=== PATIENT | female | born 1945 | race African-American/Black ===

== ENCOUNTER 2017-11-15 07:53 | Day surgery (SDC) | payer OTHER ==
[2017-11-14 10:05] VITALS: BMI 31.9
[2017-11-15 08:17] VITALS: TEMP 97.7
[2017-11-15 08:19] LABS: BASO % 0.8 % (0-2.0); EOS % 0.8 % (0-4.5); HEMOGLOBIN 12.5 GM/dL (10.7-15.3); LYMPH % 21.5 % (8-40); MCH 31.4 pg (25.7-33.7); MCHC 32.8 g/dl (32.0-36.0); MEAN CELL VOLUME 95.8 fl (80-96); MEAN PLT VOLUME 7.7 fl (7.5-11.1); MONO % 7.9 % (3.8-10.2); PLATELET COUNT 256 K/MM3 (134-434); RBC 3.97 M/mm3 (3.60-5.2); RDW 16.5 % (11.6-15.6); WHITE BLOOD COUNT 9.8 K/mm3 (4.0-10.0)
[2017-11-15 08:34] LABS: INR 1.11 (0.83-1.09); PROTHROMBIN TIME (PATIENT) 13.1 SEC (9.7-13.0)
[2017-11-15] MEDS ORDERED: ACETAMINOPHEN 325 MG TABLET (FP) ONE ×2 (11:07→11:11)
[2017-11-15] MEDS ORDERED: ACETAMINOPHEN 325 MG TABLET (FP) PO ONE (11:15)
[2017-11-15 12:02] VITALS: BP 140/80; PULSE 80
--- NOTE | 2017-11-24 14:25 | PATH ---
Surgical Pathology Report Patient Name: TYLER ZAVALETA [facility]. Rec. #: [id number] /Age/Gender: 1945 (Age: 72) / F Account: [id number] Location: RADIOLOGY INTER Taken: 11/15/2017 Received: 11/15/2017 Reported: 11/22/2017 Physicians: Shiva Gomez M.D. Specimen(s) Received RIGHT LYMPH NODE Clinical History Lung cancer 2014 with right pre-clavicular mass, rule out metastases Final Diagnosis Supraclavicular, Lymph node, right, ultrasound guided core biopsy: Poorly differentiated carcinoma. Comment: Histologic sections show sheets and aggregates of malignant epithelial cells with areas of necrosis. Immunohistochemical stains performed and interpreted at [facility] show the tumor is positive for AE1/3, and CK7; while negative for p63, TTF-1, and CK20. Additional immunohistochemical stains performed at [place], [place] ([id number]) and interpreted at [facility] show the tumor shows focal positivity for CK5/6; while negative for p40, JAYME-3, Mammaglobin, GCDFP-15, SATB2, CDX2, SATB2. Immunophenotype is non-specific, but compatible with known history of lung carcinoma. Prior material from the lung is noted ([id number]). Findings discussed with Dr. Ferreira. PDL-1 pending and will be reported separately. Electronically Signed Vanda Eng M.D. Addendum Reported: 11/22/2017 Addendum Diagnosis PD-L1 (DAKO 22C3) immunohistochemical stain performed and interpreted at [employer] [place], [place] ([id number]) RESULTS: LOW PD-L1 EXPRESSION, TPS 1%. TUMOR PROPORTION SCORE (TPS) RESULT: 1% Staining Location: Membranous Staining Distribution: 1-49 % Staining Intensity: 1+ Tumor infiltrating Immune cells (TILs) Result: Present. Staining Distribution: 0-9% Staining Intensity: 0 See [facility]ge report for details ([id number]). Vanda Eng M.D. Gross Description Received in formalin labeled "right lymph node," are 3 bradley, cylindrical portions of soft tissue ranging from 1.7-2.0 cm in length and averaging 0.1 cm in diameter. The specimens are submitted in toto in one cassette. 11/15/201711/15/2017
== END 2017-11-15 11:35 | disposition home or self-care (01) ==
LOC: JRADIR 07:53
PROVIDERS: ATTEND Internal Medicine Hematology & Oncology
PROC: 07B13ZX Excision of Right Neck Lymphatic, Percutaneous Approach, Diagnostic (ICD-10-PCS; principal; 2017-11-15)
DX: R59.0 Localized enlarged lymph nodes (principal); C34.90 Malignant neoplasm of unspecified part of unspecified bronchus or lung; Z87.891 Personal history of nicotine dependence
CPT/HCPCS: 36415; 38505; 76942-TC; 85025; 85610; 87899; 88305-TC; 88341-TC; 88342-TC

== ENCOUNTER 2017-11-20 15:21 | Emergency (ER) | payer OTHER ==
--- NOTE | 2017-11-20 16:00 | PDOC ---
History of Present Illness - General Chief Complaint: Abscess Boil Stated Complaint: SENT BY PCP Time Seen by Provider: 11/20/17 15:55 - History of Present Illness Initial Comments: 72yo F with PMH of lung cancer and HTN presenting with abscess below her chin. Patient was sent by her oncologist, Dr. Paige, who noticed the abscess. The lesion started small about one month ago, likely from an inflamed hair follicle. It started growing in size and caused her pain over the past two to three weeks, becoming as large as a lemon and profusely draining white-yellow pus. She has no acute complaints, other than some anxiety today which she attributes to laying in a MRI machine. Patient denies fever or chills, chest pain, or shortness of breath. Past History - Past Medical History Allergies/Adverse Reactions: Allergies Allergy/AdvReac Type Severity Reaction Status Date / Time No Known Drug Allergies Allergy Verified 11/20/17 15:55 Home Medications: Ambulatory Orders Alprazolam [Xanax] 0.05 mg PO HS 03/30/15 Zolpidem Tartrate [Ambien] 10 mg PO HS 03/30/15 Amlodipine Besylate [Norvasc -] 5 mg PO DAILY 11/14/17 Atovaquone [Mepron -] 1,500 mg PO DAILY@0800 11/14/17 Folic Acid 1 mg PO DAILY 11/14/17 Methotrexate [Mexate -] 15 mg PO Q7D 11/14/17 Pantoprazole Sodium [Protonix] 40 mg PO PRN PRN 11/14/17 Prednisone 5 mg PO DAILY 11/14/17 Sulfasalazine 2,000 mg PO BID 11/14/17 Sulfamethoxazole/Trimethoprim [Bactrim Ds Tablet] 2 each PO BID 10 Days #40 tablet 11/20/17 Anemia: No Asthma: No Cancer: Yes (LUNG) Cardiac Disorders: No CVA: No COPD: No CHF: No Dementia: No Diabetes: No (BORDERLINE) GI Disorders: Yes Disorders: No HTN: Yes Hypercholesterolemia: No Liver Disease: No Psychiatric Problems: Yes (depression) Seizures: No Thyroid Disease: No Lung CA: Yes - Surgical History Abdominal Surgery: No Appendectomy: No Cardiac Surgery: No Cholecystectomy: No Lung Surgery: Yes (SX - RIGHT) Neurologic Surgery: No Orthopedic Surgery: No - Suicide/Smoking/Psychosocial Hx Smoking Status: Yes Smoking History: Former smoker Have you smoked in the past 12 months: Yes Number of Cigarettes Smoked Daily: 10 If you are a former smoker, when did you quit?: 12/16/14 'Breaking Loose' booklet given: 08/24/15 Hx Alcohol Use: Yes (SOCIAL) Drug/Substance Use Hx: No Substance Use Type: Alcohol Hx Substance Use Treatment: No Review of Systems - Review of Systems Comments:: Constitutional: no fever, no chills HEENT: no throat pain, no dysphagia Cardiovascular: no chest pain, no palpitations Respiratory: no cough, no shortness of breath Gastrointestinal: no abdominal pain, no nausea, no vomiting Genitourinary: no dysuria, no frequency Musculoskeletal: no myalgia, no arthralgia Skin: +abscess, no itching Neurologic: no headache, no dizziness *Physical Exam - Physical Exam Comments: General: Awake, alert, and fully oriented, in no acute distress Head: no signs of trauma Eyes: EOMI, sclera anicteric ENT: Moist mucus membranes Neck: Normal ROM, supple Lungs: Lungs clear, Normal breath sounds Cardio: Regular rhythm, S1 and S2 present Abdomen: Soft, nontender Extremities: Normal range of motion, Distal pulses present SKIN: 3cm circular abscess below chin with 1 opening and draining white-yellow pus; erythematous, indurated, and tender to palpation Neurologic: Cranial nerves II through XII grossly intact. Normal speech Procedures - Incision and Drainage I&D Site: Bilateral: Other (below chin) Betadine cleansed: Yes Anesthesia: 2% Lidocaine Volume(ml): 3 Blade Size: 11 Plain Packing: No (Patient deferred packing due to pain and anxiety) Dressing: Yes (sterile) Medical Decision Making - Medical Decision Making 72yo F with PMH of lung cancer and HTN presenting with abscess below her chin. -Bactrim given -Wound culture sent -I&D performed: See procedure note, Copious amounts of white-yellow purulent discharge expressed *DC/Admit/Observation/Transfer Diagnosis at time of Disposition: Abscess - Discharge Dispostion Disposition: HOME Condition at time of disposition: Improved - Prescriptions Prescriptions: Sulfamethoxazole/Trimethoprim [Bactrim Ds Tablet] 2 each PO BID 10 Days #40 tablet - Referrals Referrals: Grecia Ferreira MD [Primary Care Provider] - - Patient Instructions Printed Discharge Instructions: DI for Incision and Drainage of a Skin Abscess Additional Instructions: You came into the ED for an abscess. You received antibiotics and a procedure called incision and drainage. Allow the abscess to continue to drain. Use warm compresses. Antibiotics sent to your pharmacy, Bactrim: Take two tablets twice a day for ten days. Contact your doctor if your recovery is not progressing as expected or you develop complications such as: redness or warmth at the incision site, swelling , bleeding, fever and chills, or any new or concerning symptoms. If you think you have an emergency, call for emergency medical services or present to the emergency department right away. - Post Discharge Activity
[2017-11-20 16:01] VITALS: BP 171/86; PULSE 87; TEMP 98.2; BMI 33.4
[2017-11-20] MEDS ORDERED: SULFAMETHOXAZOLE/TRIMETHOPRIM 800MG/160MG D.S. TABLET PO ONE (16:28)
--- NOTE | 2017-11-20 16:28 | PDOC ---
Attending Attestation - Resident Resident Name: Nithya Miles - ED Attending Attestation I have performed the following: I have examined & evaluated the patient, The case was reviewed & discussed with the resident, I agree w/resident's findings & plan, Exceptions are as noted - Medical Decision Making 11/20/17 16:28 I, Dr. Beatriz Goldstein, DO, attest that this document has been prepared under my direction and personally reviewed by me in its entirety. I further attest, that it accurately reflects all work, treatment, procedures and medical decision -making performed by me. 11/20/17 16:29 a/p: 72yo female with hx of lung ca sent by Dr. Paige for eval of submandibular abscess -already open and draining purulent foul smelling drainage -pt states originally size of a lemon - now smaller in size -pain to the site -no fevers -will I&D -will send culture -will place on bactrim -call placed to Dr. Paige to update her <Beatriz Goldstein - Last Filed: 11/20/17 16:29> - HPI HPI: 11/20/17 17:36 The patient is a 72 year old female, with a significant past medical history of lung cancer and frequent abscesses, who presents to the emergency department with, an abscess just below the chin. As per patient, she was in the hospital for an MRI when she had an anxiety attack and her oncologist, Dr. Paige, evaluated her. She notes Dr. Paige advised her to report to the ED for evaluation of her abscess. She notes her abscess was originally much larger but , has decreased in size substantially due to hot compresses. She also endorses foul smelling, white/yellow purulent discharge. She denies recent fevers, chills, headache or dizziness. She denies recent nausea, vomit, diarrhea or constipation. She denies recent dysuria, frequency, urgency or hematuria. She denies recent chest pain or shortness of breath. Allergies: NKDA Primary Care Physician: Dr. Donovan - Physicial Exam PE: 11/20/17 17:36 Constitutional: Awake, alert, oriented. No acute distress. Head: Normocephalic. Atraumatic Eyes: PERRL. EOMI. Conjunctivae are not pale. ENT: Mucous membranes are moist and intact. Posterior pharynx without exudates or erythema. Uvula midline. Neck: Abscess to the submandibular with white/yellow foul smelling, purulent discharge. Supple. Full ROM. No lymphadenopathy. Cardiovascular: Regular rate. Regular rhythm. S1, S2 regular. Distal pulses are 2+ and symmetric. Pulmonary/Chest: No evidence of respiratory distress. Clear to auscultation bilaterally No wheezing, rales or rhonchi. Abdominal: Soft and non-distended. There is no tenderness. No rebound, guarding or rigidity. No organomegaly. No palpable masses. Good bowel sounds. Back: No CVA tenderness. Musculoskeletal: No edema. No cyanosis. No clubbing. Full range of motion in all extremities. No calf tenderness. Radial/pedal pulses are intact and 2+ bilaterally Skin: Skin is warm and dry. No petechiae. No purpura. Neurological: Alert and oriented to person, place, and time. Cranial nerves II -XII are grossly intact. Normal speech. Strength is grossly symmetric. No sensory deficits. Psychiatric: Good eye contact. Normal interaction, affect and behavior. - Medical Decision Making 11/20/17 4:[address] Dr. Paige paged overhead, awaiting call back. 5:00pm Call placed to Dr. Paige's answering service, notified to page her overhead because she is in the hospital. 5:01pm Dr. Paige paged overhead, awaiting call back. Call placed to Dr. Paige's cell phone, line did not ring. 5:05pm Dr. Paige paged overhead, awaiting call back. Call placed to Dr. Paige's cell phone, line did not ring. 5:15pm Call placed to oncology floor for Dr. Paige, made aware she was not in the hospital. <Aydee Aceves - Last Filed: 11/20/17 17:37> Attestations - Attestations 11/20/17 17:37 Documentation prepared by Aydee Aceves, acting as spanish medical interpreter for Beatriz Goldstein DO. <Aydee Aceves - Last Filed: 11/20/17 17:37>
[2017-11-20] MEDS ORDERED: SULFAMETHOXAZOLE/TRIMETHOPRIM 800MG/160MG D.S. TABLET ONE (17:08)
== END 2017-11-20 17:49 | disposition home or self-care (01) ==
LOC: JER 15:21
PROC: 0J910ZZ Drainage of Face Subcutaneous Tissue and Fascia, Open Approach (ICD-10-PCS; principal; 2017-11-20)
DX: L02.01 Cutaneous abscess of face (principal); I10 Essential (primary) hypertension; F32.9 Major depressive disorder, single episode, unspecified; C34.00 Malignant neoplasm of unspecified main bronchus
CPT/HCPCS: 10060; 87070; 87186; 87205; 99281-25

== ENCOUNTER 2018-02-15 12:39 | Emergency (ER) | payer OTHER ==
--- NOTE | 2018-02-15 12:53 | PDOC ---
History of Present Illness - General Stated Complaint: SOB Time Seen by Provider: 02/15/18 12:53 History Source: Patient - History of Present Illness Initial Comments: 02/15/18 13:26 The patient is a 72 year old female with a PMH of HTN and Lung CA who presents to the ED c/o 4 day h/oproductive (greyish sputum) cough, subjective fever and chills. Cough started when she smoked a cigarette on [place]. Now c/o continued cough as well as "diaphragm pain" which she attributes to her coughing. Denies associated shortness of breath, chest pain, lightheadedness, palpitations, syncope. Evaluated by her oncologist, Dr. Sheikh, earlier today who directed patient to come to ED for further evaluation. 10 point ROS is negative including no nausea/vomiting, diarrhea/constipation, dysuria/hematuria, numbness/tingling. NKDA PMD: Dr. Toro Oncologist: Dr. Sheikh As per EMR patient last evaluated in our ED in 11/2017 for chin abscess, s/p I& D and discharged with 7 day course of Bactrim. Past History - Past Medical History Allergies/Adverse Reactions: Allergies Allergy/AdvReac Type Severity Reaction Status Date / Time aspirin AdvReac Mild Verified 02/15/18 13:00 Home Medications: Ambulatory Orders Alprazolam [Xanax] 0.5 mg PO HS 03/30/15 Zolpidem Tartrate [Ambien] 10 mg PO HS 03/30/15 Amlodipine Besylate [Norvasc -] 5 mg PO DAILY 11/14/17 Atovaquone [Mepron -] 1,500 mg PO DAILY@0800 11/14/17 Folic Acid 1 mg PO DAILY 11/14/17 Prednisone 5 mg PO DAILY 11/14/17 Cholecalciferol (Vitamin D3) [Vitamin D3] 1,000 unit PO DAILY 01/16/18 Cyanocobalamin [Vitamin B12 -] 6,000 mcg PO DAILY 01/16/18 levoFLOXacin [Levaquin -] 500 mg PO DAILY #14 tablet 02/15/18 Anemia: No Asthma: No Cancer: Yes (LUNG) Cardiac Disorders: No CVA: No COPD: No CHF: No Dementia: No Diabetes: No (BORDERLINE) GI Disorders: Yes Disorders: No HTN: Yes Hypercholesterolemia: No Liver Disease: No Psychiatric Problems: Yes (depression) Seizures: No Thyroid Disease: No Lung CA: Yes - Surgical History Abdominal Surgery: No Appendectomy: No Cardiac Surgery: No Cholecystectomy: No Lung Surgery: Yes (SX - RIGHT) Neurologic Surgery: No Orthopedic Surgery: No - Suicide/Smoking/Psychosocial Hx Smoking Status: Yes Smoking History: Former smoker Have you smoked in the past 12 months: Yes Number of Cigarettes Smoked Daily: 10 If you are a former smoker, when did you quit?: 12/16/14 'Breaking Loose' booklet given: 08/24/15 Hx Alcohol Use: Yes (SOCIAL) Drug/Substance Use Hx: No Substance Use Type: Alcohol Hx Substance Use Treatment: No Review of Systems - Review of Systems Constitutional: Yes: Chills, Fever HEENTM: No: Recent change in vision Respiratory: Yes: Productive cough. No: Hemoptysis Cardiac (ROS): No: Chest Pain, Lightheadedness, Palpitations, Syncope ABD/GI: No: Constipated, Diarrhea, Nausea, Vomiting *Physical Exam - Physical Exam General Appearance: Yes: Nourished, Appropriately Dressed HEENT: positive: Normal Voice, Hearing Grossly Normal. negative: Tonsillar Exudate, Tonsillar Erythema, Nasal Congestion, Sinus Tenderness Neck: positive: Trachea midline, Supple. negative: Lymphadenopathy (R), Lymphadenopathy (L) Respiratory/Chest: positive: Other (L base crackles; no audible wheezing, non- labored respirations) Cardiovascular: positive: S1, S2. negative: Edema, JVD, Murmur Vascular Pulses: Dorsalis-Pedis (R): 2+, Doralis-Pedis (L): 2+ Gastrointestinal/Abdominal: positive: Normal Bowel Sounds, Soft. negative: Distended, Guarding, Rebound, Tenderness Extremity: positive: Normal Capillary Refill, Normal Inspection Integumentary: positive: Normal Color, Dry, Warm Neurologic: positive: Fully Oriented, Alert ED Treatment Course - LABORATORY CBC & Chemistry Diagram: 02/15/18 13:40 02/15/18 13:40 Medical Decision Making - Medical Decision Making 02/15/18 13:26 72 year old female with URI SiSx. Febrile @ 101.7 @ presentation. Mildly tachycardic (low 100's). Frontal diagnosis: Viral URI vs. PNA vs. Bronchitis vs. Influenza (less likely, patient outside of window, however IC, so will treat if positive). Will obtain basic labs, CXR. IV fluids + Tylenol. Reassess. 02/15/18 14:34 Patient reassessed @ bedside. Symptomatically improved. Tolerating PO intake. CXR shows no consolidation/infiltrate. No leukocytosis. Influenza A/B negative Case d/w Dr. Sheikh. Requests Levaquin Chest xray demonstrates no acute PNA. Labs reviewed. No acute findings. Will touch base with Dr. Paige. If Dr. Paige agrees, will d/c patient home with oral antibiotics. Case d/w Dr. Sheikh- requests outpatient Levaquin Patient counseled on return precautions and discharged home. Clinical Impression: Clinical PNA diagnosis (equivocal CXR findings + donald SiSx of PNA) prophylatic/presumptive CAP treatment I discussed the physical exam findings, ancillary test results and final diagnoses with the patient. I answered all of the patient's questions. The patient was satisfied with the care received and felt comfortable with the discharge plan and treatment plan. The patient will return to the Emergency Department with any new, persistent or worsening symptoms. *DC/Admit/Observation/Transfer Diagnosis at time of Disposition: Productive cough - Discharge Dispostion Disposition: HOME Condition at time of disposition: Good Decision to Admit order: No - Prescriptions Prescriptions: levoFLOXacin [Levaquin -] 500 mg PO DAILY #14 tablet - Referrals Referrals: Grecia Ferreira MD [Staff Physician] - - Patient Instructions Printed Discharge Instructions: DI for Cough -- Adult Additional Instructions: You were evaluated today for your cough. All of your labs and x-ray show no concerning findings. At this time you are safe for discharge home. We have sent an antibiotic to your pharmacy. Please complete the entire prescribed antibiotic course. Follow-up with your primary care doctor in the next 3 days. Return to the Emergency Department for any new/worsening/concerning symptoms. - Post Discharge Activity
[2018-02-15] MEDS ORDERED: SODIUM CHLORIDE 0.9% 500 ML INFUS.BAG IV ONE (12:59)
[2018-02-15 13:00] VITALS: BP 105/56; TEMP 101.7; BMI 33.4
[2018-02-15] MEDS ORDERED: ACETAMINOPHEN 1000 MG/100 ML VIAL (NON FORMULARY) IVPB ONE (13:02)
[2018-02-15] MEDS ORDERED: ACETAMINOPHEN INJECTION 100 ML IVPB ONE (13:19)
--- NOTE | 2018-02-15 13:40 | PDOC ---
Attending Attestation - HPI HPI: The patient is a 72 year old female, with a significant PMH of lung cancer and HTN, who presents to the emergency department today complaining of a productive cough for 4 days, and subjective fever and chills for one day. Patient reports she began experiencing a cough with greyish sputum after trying to smoke a cigarette 4 days ago. She reports associated SOB and upper abdominal soreness, describing it as her diaphragm is on fire from excessive coughing. Patient also notes she began experiencing a subjective fever with chills one day ago, which prompted her visit to the ED today. The patient denies chest pain, headache and dizziness. Denies nausea, vomit, diarrhea and constipation. Denies dysuria, frequency, urgency and hematuria. Allergies: NKA Social history: Former smoker Oncologist; Dr. Paige PCP: Dr. Toro 02/15/18 14:04 - Physicial Exam PE: GENERAL: Awake, alert, and fully oriented, in no acute distress HEAD: No signs of trauma EYES: PERRLA, EOMI, sclera anicteric, conjunctiva clear ENT: Auricles normal inspection, hearing grossly normal, nares patent, oropharynx clear without exudates. Moist mucosa NECK: Normal ROM, supple, no lymphadenopathy, JVD, or masses LUNGS: +Mild crackles at left base. No wheezes. HEART: Regular rate and rhythm, normal S1 and S2, no murmurs, rubs or gallops ABDOMEN: Soft, nontender, normoactive bowel sounds. No guarding, no rebound. No masses EXTREMITIES: Normal range of motion, no edema. No clubbing or cyanosis. No cords, erythema, or tenderness NEUROLOGICAL: Cranial nerves II through XII grossly intact. Normal speech, normal gait SKIN: Warm, Dry, normal turgor, no rashes or lesions noted. 02/15/18 14:04 - Medical Decision Making EXAM#: TYPE/EXAM: RESULT: [id number] RAD/CHEST X-RAY PORTABLE A single AP view the chest reveals previous right upper lobe surgery, hilar retraction on the right , blunted right angle with scarring at right base and multiple masses in the left lung. There is a large heart and unfolded aorta. The bones and soft tissues appear intact. Correlation recommended. Reported By: Ryan Rodriguez MD 02/15/18 14:09 Documentation prepared by ADELE Keen, acting as medical bill processor for Kenroy Olmos MD. 02/15/18 14:04 <Lorri Wooten - Last Filed: 02/15/18 14:21> - Resident Resident Name: PatriciaMargot - ED Attending Attestation I have performed the following: I have examined & evaluated the patient, The case was reviewed & discussed with the resident, I agree w/resident's findings & plan, Exceptions are as noted - Medical Decision Making 02/15/18 13:39 A portion of this note was documented by scribe services under my direction. I have reviewed the details of the note, within reason, and agree with the documentation with the following case summary and management plan written by me. Patient treated in the ED. Nursing notes are reviewed and incorporated into the medical decision-making. Vital signs reviewed. Peripheral IV access obtained by the nurse, laboratory studies are drawn and sent, reviewed and interpreted by myself. Vital Signs Temp Pulse Resp BP Pulse Ox 101.7 F H 115 H 20 105/56 L 93 L 02/15/18 12:58 02/15/18 12:58 02/15/18 12:58 02/15/18 12:58 02/15/18 13:26 72-year-old female with past medical history of hypertension and lung cancer in remission presents with several days of upper respiratory infection. Patient's been having a productive cough and fevers. Patient has a temperature 101.7. She contacted her oncologist who directed patient ER. Rule out pneumonia. We'll obtain a chest x-ray, labs. We'll likely consult patient's oncologist in regards to disposition. 02/15/18 14:34 Chest xray demonstrates no acute PNA. Labs reviewed. No acute findings. Will touch base with DR. Paige. If Dr. Paige agrees, will d/c patient home with oral antibiotics. <Kenroy Olmos - Last Filed: 02/15/18 14:35>
[2018-02-15 13:57] LABS: BASO % 0.6 % (0-2.0); EOS % 1.6 % (0-4.5); HEMATOCRIT 35.1 % (32.4-45.2); HEMOGLOBIN 11.9 GM/dL (10.7-15.3); LYMPH % 14.2 % (8-40); MCH 31.9 pg (25.7-33.7); MCHC 33.8 g/dl (32.0-36.0); MEAN CELL VOLUME 94.3 fl (80-96); MEAN PLT VOLUME 7.7 fl (7.5-11.1); NEUT % 73.6 % (42.8-82.8); PLATELET COUNT 235 K/MM3 (134-434); RBC 3.73 M/mm3 (3.60-5.2); RDW 16.9 % (11.6-15.6); VENOUS PC02 44.6 mmHg (38-52); VENOUS PH 7.4 (7.32-7.42); VENOUS PO2 34.5 mmHg (28-48); WHITE BLOOD COUNT 7.4 K/mm3 (4.0-10.0)
[2018-02-15 14:27] LABS: ALK PHOS 93 U/L (45-117); ANION GAP 8 MMOL/L (8-16); BILIRUBIN,TOTAL 2.3 mg/dL (0.2-1); BLOOD UREA NITROGEN 11 mg/dL (7-18); CALCIUM 8.5 mg/dL (8.5-10.1); CHLORIDE 101 mmol/L (98-107); CO2 25 mmol/L (21-32); CREATININE 1.1 mg/dL (0.55-1.3); GLUCOSE,RANDOM 118 mg/dL (74-106); POTASSIUM 4.3 mmol/L (3.5-5.1); SGOT/AST 26 U/L (15-37); SGPT/ALT 22 U/L (13-61); SODIUM 135 mmol/L (136-145); TOT PROT 6.8 g/dl (6.4-8.2)
[2018-02-15 14:48] LABS: INR 1.34 (0.83-1.09); PROTHROMBIN TIME (PATIENT) 15.9 SEC (9.7-13.0)
[2018-02-15 14:50] LABS: ACTIVATED PTT 28.2 SECONDS (25.2-36.5)
[2018-02-15 15:11] VITALS: PULSE 102
--- NOTE | 2018-02-15 16:13 | EKG ---
Test Reason : Blood Pressure : / mmHG Vent. Rate : 102 BPM Atrial Rate : 102 BPM P-R Int : 168 ms QRS Dur : 082 ms QT Int : 326 ms P-R-T Axes : 039 041 051 degrees QTc Int : 424 ms SINUS TACHYCARDIA WITH PREMATURE ATRIAL COMPLEXES OTHERWISE NORMAL ECG WHEN COMPARED WITH ECG OF 31-DEC-2015 12:23, NO SIGNIFICANT CHANGE WAS FOUND Confirmed by AILYN MORELAND MD ([id number]) on 02/15/2018 4:13:17 PM Referred By: Confirmed By:AILYN MORELAND MD
== END 2018-02-15 15:26 | disposition home or self-care (01) ==
LOC: JER 12:39
PROC: 3E033NZ Introduction of Analgesics, Hypnotics, Sedatives into Peripheral Vein, Percutaneous Approach (ICD-10-PCS; principal; 2018-02-15)
PROC: 3E0337Z Introduction of Electrolytic and Water Balance Substance into Peripheral Vein, Percutaneous Approach (ICD-10-PCS; 2018-02-15)
DX: R05 Cough (principal); Z87.891 Personal history of nicotine dependence; F32.9 Major depressive disorder, single episode, unspecified; Z85.118 Personal history of other malignant neoplasm of bronchus and lung; R73.03 Prediabetes; I10 Essential (primary) hypertension
CPT/HCPCS: 36415; 71045-TC-FY; 80053; 82803; 83605; 84484; 85025; 85610; 85730; 87040; 87186; 87804; 93005; 93010; 99284-25; J0131

== ENCOUNTER 2018-03-21 07:01 | Day surgery (SDC) | payer OTHER ==
[2018-03-21 09:54] LABS: BASO % 0.5 % (0-2.0); EOS % 2.6 % (0-4.5); HEMATOCRIT 36.1 % (32.4-45.2); HEMOGLOBIN 12.4 GM/dL (10.7-15.3); LYMPH % 18.8 % (8-40); MCH 32.2 pg (25.7-33.7); MCHC 34.4 g/dl (32.0-36.0); MEAN CELL VOLUME 93.5 fl (80-96); MEAN PLT VOLUME 8.3 fl (7.5-11.1); MONO % 4.1 % (3.8-10.2); PLATELET COUNT 203 K/MM3 (134-434); RBC 3.85 M/mm3 (3.60-5.2); RDW 17.9 % (11.6-15.6); WHITE BLOOD COUNT 9.3 K/mm3 (4.0-10.0)
[2018-03-21] MEDS ORDERED: DEXAMETHASONE SODIUM PHOSPHATE 10 MG in SODIUM CHLORIDE 50 ML IVPB ONE (10:00)
[2018-03-21] MEDS ORDERED: PALONOSETRON HCL 0.25 MG/5 ML VIAL IVPUSH ONE (10:00)
[2018-03-21] MEDS ORDERED: SODIUM CHLORIDE IV ONE (10:30)
[2018-03-21] MEDS ORDERED: GEMCITABINE HCL IV ONE (10:30)
[2018-03-21 10:40] LABS: ALBUMIN 3.2 g/dl (3.4-5.0); ALK PHOS 93 U/L (45-117); ANION GAP 4 MMOL/L (8-16); BILIRUBIN,DIRECT 0.2 mg/dL (0.0-0.2); BILIRUBIN,TOTAL 0.7 mg/dL (0.2-1); BLOOD UREA NITROGEN 27 mg/dL (7-18); CALCIUM 9.2 mg/dL (8.5-10.1); CHLORIDE 105 mmol/L (98-107); CO2 29 mmol/L (21-32); CREATININE 1.1 mg/dL (0.55-1.3); GLUCOSE,RANDOM 168 mg/dL (74-106); MAGNESIUM 2.2 mg/dL (1.8-2.4); POTASSIUM 4.3 mmol/L (3.5-5.1); SGOT/AST 12 U/L (15-37); SGPT/ALT 19 U/L (13-61); SODIUM 139 mmol/L (136-145); TOT PROT 6.8 g/dl (6.4-8.2)
[2018-03-21 11:35] LABS: ERYTHROCYTE SEDIMENTATION RATE 64 mm/hr (0-30)
[2018-03-21 13:39] LABS: ANISOCYTOSIS 0; MACROCYTOSIS 0; PLATELET ESTIMATE NORMAL
[2018-03-21 18:04] VITALS: BP 139/84; PULSE 89; TEMP 97.4
== END 2018-03-21 12:10 | disposition home or self-care (01) ==
LOC: JONCCHEMO 07:01 → J7W 10:44 → JONCCHEMO 12:10
PROVIDERS: ATTEND Internal Medicine Hematology & Oncology
DX: Z51.11 Encounter for antineoplastic chemotherapy (principal); C34.90 Malignant neoplasm of unspecified part of unspecified bronchus or lung
CPT/HCPCS: 36415; 80048; 80053; 80076; 83735; 85025; 85651; 96375; 96413; J2469

== ENCOUNTER 2018-03-28 07:10 | Day surgery (SDC) | payer OTHER ==
[2018-03-28 09:20] VITALS: TEMP 97.8
[2018-03-28 09:34] LABS: BASO % 0.3 % (0-2.0); EOS % 1.4 % (0-4.5); HEMATOCRIT 34.4 % (32.4-45.2); HEMOGLOBIN 11.5 GM/dL (10.7-15.3); LYMPH % 25.7 % (8-40); MCH 30.8 pg (25.7-33.7); MCHC 33.5 g/dl (32.0-36.0); MEAN CELL VOLUME 91.9 fl (80-96); MEAN PLT VOLUME 7.1 fl (7.5-11.1); MONO % 3.9 % (3.8-10.2); NEUT % 68.7 % (42.8-82.8); PLATELET COUNT 168 K/MM3 (134-434); RBC 3.74 M/mm3 (3.60-5.2); RDW 17.5 % (11.6-15.6); WHITE BLOOD COUNT 4.8 K/mm3 (4.0-10.0)
[2018-03-28] MEDS ORDERED: DEXAMETHASONE SODIUM PHOSPHATE 10 MG in SODIUM CHLORIDE 50 ML IVPB ONE (10:00)
[2018-03-28 10:04] LABS: ALBUMIN 3.1 g/dl (3.4-5.0); ALK PHOS 91 U/L (45-117); ANION GAP 7 MMOL/L (8-16); BILIRUBIN,TOTAL 0.5 mg/dL (0.2-1); BLOOD UREA NITROGEN 21 mg/dL (7-18); CALCIUM 8.6 mg/dL (8.5-10.1); CHLORIDE 106 mmol/L (98-107); CO2 28 mmol/L (21-32); CREATININE 1.1 mg/dL (0.55-1.3); GLUCOSE,RANDOM 146 mg/dL (74-106); POTASSIUM 4.4 mmol/L (3.5-5.1); SGOT/AST 15 U/L (15-37); SGPT/ALT 32 U/L (13-61); SODIUM 141 mmol/L (136-145); TOT PROT 6.6 g/dl (6.4-8.2)
[2018-03-28 10:08] LABS: ALBUMIN 3.2 g/dl (3.4-5.0); BILIRUBIN,DIRECT 0.2 mg/dL (0.0-0.2); BILIRUBIN,TOTAL 0.6 mg/dL (0.2-1); MAGNESIUM 1.9 mg/dL (1.8-2.4); TOT PROT 6.7 g/dl (6.4-8.2); URIC ACID 6.7 mg/dL (2.6-7.2)
[2018-03-28] MEDS ORDERED: SODIUM CHLORIDE IV ONE (10:30)
[2018-03-28] MEDS ORDERED: GEMCITABINE HCL IV ONE (10:30)
[2018-03-28] MEDS: PROCHLORPERAZINE MALEATE 5 MG TABLET PO ONE ×2 (10:51→10:57)
[2018-03-28 15:05] VITALS: BP 138/75; PULSE 92
== END 2018-03-28 12:15 | disposition home or self-care (01) ==
LOC: JONCCHEMO 07:10 → J7W 10:22 → JONCCHEMO 12:15
PROVIDERS: ATTEND Internal Medicine Hematology & Oncology
DX: Z51.11 Encounter for antineoplastic chemotherapy (principal); C34.90 Malignant neoplasm of unspecified part of unspecified bronchus or lung
CPT/HCPCS: 36415; 80053; 80076; 83615; 83735; 84550; 85025; 96367; 96375; 96413

== ENCOUNTER 2018-04-11 07:07 | Day surgery (SDC) | payer OTHER ==
[2018-04-11] MEDS ORDERED: DEXAMETHASONE SODIUM PHOSPHATE 10 MG in SODIUM CHLORIDE 50 ML IVPB ONE (08:00)
[2018-04-11] MEDS ORDERED: PALONOSETRON HCL 0.25 MG/5 ML VIAL IVPUSH ONE (08:00)
[2018-04-11] MEDS ORDERED: GEMCITABINE HCL IV ONE (08:30)
[2018-04-11] MEDS ORDERED: SODIUM CHLORIDE IV ONE (08:30)
[2018-04-11 09:07] LABS: BASO % 0.6 % (0-2.0); EOS % 0.9 % (0-4.5); HEMATOCRIT 34.4 % (32.4-45.2); HEMOGLOBIN 11.8 GM/dL (10.7-15.3); LYMPH % 21.2 % (8-40); MCH 31.8 pg (25.7-33.7); MCHC 34.3 g/dl (32.0-36.0); MEAN CELL VOLUME 92.6 fl (80-96); MEAN PLT VOLUME 7.6 fl (7.5-11.1); MONO % 13.4 % (3.8-10.2); NEUT % 63.9 % (42.8-82.8); PLATELET COUNT 394 K/MM3 (134-434); RBC 3.72 M/mm3 (3.60-5.2); RDW 18.9 % (11.6-15.6)
[2018-04-11 09:34] LABS: ALBUMIN 3.2 g/dl (3.4-5.0); ALK PHOS 122 U/L (45-117); ANION GAP 8 MMOL/L (8-16); BILIRUBIN,TOTAL 0.6 mg/dL (0.2-1); BLOOD UREA NITROGEN 20 mg/dL (7-18); CALCIUM 9.1 mg/dL (8.5-10.1); CHLORIDE 106 mmol/L (98-107); CO2 25 mmol/L (21-32); CREATININE 1.1 mg/dL (0.55-1.3); GLUCOSE,RANDOM 198 mg/dL (74-106); POTASSIUM 3.8 mmol/L (3.5-5.1); SGOT/AST 11 U/L (15-37); SGPT/ALT 29 U/L (13-61); SODIUM 138 mmol/L (136-145); TOT PROT 6.8 g/dl (6.4-8.2)
[2018-04-11 09:36] LABS: ALBUMIN 3.2 g/dl (3.4-5.0); BILIRUBIN,DIRECT 0.1 mg/dL (0.0-0.2); BILIRUBIN,TOTAL 0.6 mg/dL (0.2-1); MAGNESIUM 1.9 mg/dL (1.8-2.4); TOT PROT 6.7 g/dl (6.4-8.2)
[2018-04-11 13:01] VITALS: TEMP 97.8
[2018-04-11 13:09] VITALS: BP 124/91; PULSE 97
== END 2018-04-11 11:20 | disposition home or self-care (01) ==
LOC: JONCCHEMO 07:07 → J7W 09:58 → JONCCHEMO 11:20
PROVIDERS: ATTEND Internal Medicine Hematology & Oncology
DX: Z51.11 Encounter for antineoplastic chemotherapy (principal); C34.90 Malignant neoplasm of unspecified part of unspecified bronchus or lung
CPT/HCPCS: 36415; 80053; 80076; 83735; 85025; 96375; 96413; J2469

== ENCOUNTER 2018-04-18 07:01 | Day surgery (SDC) | payer OTHER ==
[2018-04-18] MEDS ORDERED: PROCHLORPERAZINE MALEATE 5 MG TABLET PO ONE (08:00)
[2018-04-18] MEDS ORDERED: DEXAMETHASONE SODIUM PHOSPHATE 10 MG in SODIUM CHLORIDE 50 ML IVPB ONE (08:00)
[2018-04-18] MEDS ORDERED: GEMCITABINE HCL IV ONE (08:30)
[2018-04-18] MEDS ORDERED: SODIUM CHLORIDE IV ONE (08:30)
[2018-04-18 10:36] LABS: BASO % 0.2 % (0-2.0); EOS % 0.1 % (0-4.5); HEMATOCRIT 33.8 % (32.4-45.2); HEMOGLOBIN 11.5 GM/dL (10.7-15.3); LYMPH % 16.4 % (8-40); MCH 31.5 pg (25.7-33.7); MCHC 34.1 g/dl (32.0-36.0); MEAN CELL VOLUME 92.3 fl (80-96); MEAN PLT VOLUME 7.9 fl (7.5-11.1); MONO % 7.8 % (3.8-10.2); NEUT % 75.5 % (42.8-82.8); PLATELET COUNT 332 K/MM3 (134-434); RBC 3.66 M/mm3 (3.60-5.2); RDW 18.7 % (11.6-15.6); WHITE BLOOD COUNT 6.5 K/mm3 (4.0-10.0)
[2018-04-18 11:13] LABS: ALBUMIN 3.1 g/dl (3.4-5.0); ALBUMIN 3.2 g/dl (3.4-5.0); ALK PHOS 113 U/L (45-117); ANION GAP 8 MMOL/L (8-16); BILIRUBIN,DIRECT 0.2 mg/dL (0.0-0.2); BILIRUBIN,TOTAL 0.6 mg/dL (0.2-1); BILIRUBIN,TOTAL 0.8 mg/dL (0.2-1); BLOOD UREA NITROGEN 19 mg/dL (7-18); CALCIUM 9.1 mg/dL (8.5-10.1); CHLORIDE 104 mmol/L (98-107); CO2 27 mmol/L (21-32); CREATININE 1.2 mg/dL (0.55-1.3); GLUCOSE,RANDOM 166 mg/dL (74-106); MAGNESIUM 1.6 mg/dL (1.8-2.4); POTASSIUM 3.8 mmol/L (3.5-5.1); SGOT/AST 16 U/L (15-37); SGPT/ALT 34 U/L (13-61); SODIUM 139 mmol/L (136-145); TOT PROT 6.6 g/dl (6.4-8.2)
[2018-04-18 12:29] LABS: ANISOCYTOSIS 1+; MACROCYTOSIS 1+; OVALOCYTE 1+; PLATELET ESTIMATE NORMAL
[2018-04-18 17:12] VITALS: BP 150/83; PULSE 88; TEMP 97.3
== END 2018-04-18 13:00 | disposition home or self-care (01) ==
LOC: JONCCHEMO 07:01 → J7W 10:53 → JONCCHEMO 13:00
PROVIDERS: ATTEND Internal Medicine Hematology & Oncology
DX: Z51.11 Encounter for antineoplastic chemotherapy (principal); C34.90 Malignant neoplasm of unspecified part of unspecified bronchus or lung
CPT/HCPCS: 36415; 80053; 80076; 83735; 85025; 96375; 96413

== ENCOUNTER 2018-05-02 07:20 | Day surgery (SDC) | payer OTHER ==
[2018-05-02 09:51] LABS: BASO % 0.3 % (0-2.0); EOS % 1.8 % (0-4.5); HEMATOCRIT 30.8 % (32.4-45.2); HEMOGLOBIN 10.4 GM/dL (10.7-15.3); LYMPH % 14.4 % (8-40); MCH 31.6 pg (25.7-33.7); MCHC 33.9 g/dl (32.0-36.0); MONO % 11.9 % (3.8-10.2); NEUT % 71.6 % (42.8-82.8); PLATELET COUNT 379 K/MM3 (134-434); RBC 3.31 M/mm3 (3.60-5.2); RDW 20.7 % (11.6-15.6); WHITE BLOOD COUNT 6.3 K/mm3 (4.0-10.0)
[2018-05-02] MEDS ORDERED: DEXAMETHASONE SODIUM PHOSPHATE 10 MG in SODIUM CHLORIDE 50 ML IVPB ONE (10:00)
[2018-05-02] MEDS ORDERED: PALONOSETRON HCL 0.25 MG/5 ML VIAL IVPUSH ONE (10:00)
[2018-05-02 10:24] LABS: ALBUMIN 3.2 g/dl (3.4-5.0); ALK PHOS 112 U/L (45-117); ANION GAP 5 MMOL/L (8-16); BILIRUBIN,DIRECT 0.2 mg/dL (0.0-0.2); BILIRUBIN,TOTAL 0.6 mg/dL (0.2-1); BLOOD UREA NITROGEN 17 mg/dL (7-18); CALCIUM 8.4 mg/dL (8.5-10.1); CHLORIDE 107 mmol/L (98-107); CO2 28 mmol/L (21-32); CREATININE 1.1 mg/dL (0.55-1.3); GLUCOSE,RANDOM 167 mg/dL (74-106); MAGNESIUM 1.4 mg/dL (1.8-2.4); POTASSIUM 4.3 mmol/L (3.5-5.1); SGOT/AST 17 U/L (15-37); SGPT/ALT 45 U/L (13-61); SODIUM 140 mmol/L (136-145); TOT PROT 6.6 g/dl (6.4-8.2)
[2018-05-02] MEDS ORDERED: GEMCITABINE HCL IV ONE (10:30)
[2018-05-02] MEDS ORDERED: SODIUM CHLORIDE IV ONE (10:30)
[2018-05-02 11:02] LABS: ANISOCYTOSIS 1+; MACROCYTOSIS 1+; OVALOCYTE 1+; PLATELET ESTIMATE NORMAL
[2018-05-02 15:37] VITALS: TEMP 97.8
[2018-05-02 15:38] VITALS: BP 142/60; PULSE 91
== END 2018-05-02 11:15 | disposition home or self-care (01) ==
LOC: JONCCHEMO 07:20 → J7W 10:00 → JONCCHEMO 11:15
PROVIDERS: ATTEND Internal Medicine Hematology & Oncology
PROC: 3E03305 Introduction of Other Antineoplastic into Peripheral Vein, Percutaneous Approach (ICD-10-PCS; principal; 2018-05-02)
PROC: 3E033GC Introduction of Other Therapeutic Substance into Peripheral Vein, Percutaneous Approach (ICD-10-PCS; 2018-05-02)
DX: Z51.11 Encounter for antineoplastic chemotherapy (principal); C34.91 Malignant neoplasm of unspecified part of right bronchus or lung; M06.9 Rheumatoid arthritis, unspecified
CPT/HCPCS: 36415; 80053; 80076; 83735; 85025; 96375; 96413; J2469

== ENCOUNTER 2018-05-09 07:08 | Day surgery (SDC) | payer OTHER ==
[2018-05-09 09:16] LABS: BASO % 0.3 % (0-2.0); EOS % 0.1 % (0-4.5); HEMATOCRIT 33.2 % (32.4-45.2); HEMOGLOBIN 11.4 GM/dL (10.7-15.3); LYMPH % 14.7 % (8-40); MCH 31.5 pg (25.7-33.7); MCHC 34.2 g/dl (32.0-36.0); MEAN PLT VOLUME 7.4 fl (7.5-11.1); MONO % 7.6 % (3.8-10.2); NEUT % 77.3 % (42.8-82.8); PLATELET COUNT 372 K/MM3 (134-434); RBC 3.61 M/mm3 (3.60-5.2); RDW 20.6 % (11.6-15.6); WHITE BLOOD COUNT 7.2 K/mm3 (4.0-10.0)
[2018-05-09 09:43] LABS: ALBUMIN 3.3 g/dl (3.4-5.0); BILIRUBIN,DIRECT 0.3 mg/dL (0.0-0.2); MAGNESIUM 1.9 mg/dL (1.8-2.4)
[2018-05-09 09:44] LABS: ALBUMIN 3.3 g/dl (3.4-5.0); ALK PHOS 107 U/L (45-117); ANION GAP 8 MMOL/L (8-16); BLOOD UREA NITROGEN 16 mg/dL (7-18); CALCIUM 8.8 mg/dL (8.5-10.1); CHLORIDE 106 mmol/L (98-107); CO2 24 mmol/L (21-32); CREATININE 1.2 mg/dL (0.55-1.3); GLUCOSE,RANDOM 189 mg/dL (74-106); POTASSIUM 4.4 mmol/L (3.5-5.1); SGOT/AST 28 U/L (15-37); SGPT/ALT 48 U/L (13-61); SODIUM 139 mmol/L (136-145); TOT PROT 6.8 g/dl (6.4-8.2)
[2018-05-09] MEDS ORDERED: DEXAMETHASONE SODIUM PHOSPHATE 10 MG in SODIUM CHLORIDE 50 ML IVPB ONE (10:00)
[2018-05-09] MEDS ORDERED: PROCHLORPERAZINE MALEATE 5 MG TABLET PO ONE (10:00)
[2018-05-09] MEDS ORDERED: GEMCITABINE HCL IV ONE (10:30)
[2018-05-09] MEDS ORDERED: SODIUM CHLORIDE IV ONE (10:30)
[2018-05-09 13:13] LABS: ANISOCYTOSIS 1+; MACROCYTOSIS 1+; PLATELET ESTIMATE NORMAL
[2018-05-09 14:27] VITALS: BP 116/73; TEMP 97.3
[2018-05-09 14:34] VITALS: PULSE 88
== END 2018-05-09 11:50 | disposition home or self-care (01) ==
LOC: JONCCHEMO 07:08 → J7W 10:19 → JONCCHEMO 11:50
PROVIDERS: ATTEND Internal Medicine Hematology & Oncology
DX: Z51.11 Encounter for antineoplastic chemotherapy (principal); C34.91 Malignant neoplasm of unspecified part of right bronchus or lung; M06.9 Rheumatoid arthritis, unspecified
CPT/HCPCS: 36415; 80053; 80076; 83735; 85025; 96375; 96413

== ENCOUNTER 2018-05-22 08:08 | Day surgery (SDC) | payer OTHER ==
[2018-05-21 11:05] VITALS: BMI 33.1
[2018-05-22 08:41] LABS: BASO % 0.4 % (0-2.0); EOS % 0.9 % (0-4.5); HEMATOCRIT 30.2 % (32.4-45.2); LYMPH % 16.7 % (8-40); MCH 31.5 pg (25.7-33.7); MCHC 33.1 g/dl (32.0-36.0); MEAN CELL VOLUME 94.9 fl (80-96); MEAN PLT VOLUME 8.1 fl (7.5-11.1); MONO % 10.4 % (3.8-10.2); NEUT % 71.6 % (42.8-82.8); PLATELET COUNT 389 K/MM3 (134-434); RBC 3.18 M/mm3 (3.60-5.2); RDW 21.9 % (11.6-15.6); WHITE BLOOD COUNT 9.3 K/mm3 (4.0-10.0)
[2018-05-22 08:42] LABS: INR 1.22 (0.83-1.09); PROTHROMBIN TIME (PATIENT) 14.4 SEC (9.7-13.0)
[2018-05-22 09:33] VITALS: TEMP 97.4
[2018-05-22 11:06] VITALS: BP 110/70; PULSE 110
[2018-05-22 14:24] LABS: ANISOCYTOSIS 1+; MACROCYTOSIS 1+; PLATELET ESTIMATE NORMAL; TEAR DROP CELLS 1+
== END 2018-05-22 11:07 | disposition home or self-care (01) ==
LOC: JRADIR 08:08
PROVIDERS: ATTEND Internal Medicine Hematology & Oncology
DX: Z53.8 Procedure and treatment not carried out for other reasons (principal)
CPT/HCPCS: 36415; 85025; 85610

== ENCOUNTER 2018-05-23 09:24 | Inpatient (IN) | payer OTHER ==
--- NOTE | 2018-05-23 09:30 | PDOC ---
History of Present Illness - General Stated Complaint: Shortness of Breath Time Seen by Provider: 05/23/18 09:30 History Source: Patient Exam Limitations: No Limitations - History of Present Illness Initial Comments: 05/23/18 09:36 Ms. Fulton is a 73-year-old female history of RA (on prednisone), HTN, squamous cell lung cancer s/p lobectomy, adjuvant chemotherapy with carboplatinum and taxol x 3 cycles, s/p mediastinal recurrence, s/p taxol/RT complicated by pneumonitis. Pt noted to have lymphadenopathy, biopsy consistent with poorly differentiacted carcinoma s/p RT to right neck adenopathy. Pt with progressive disesase in the lungs. Pt is now two weeks s/p Gemzar. Pt presents to the ER with a complaint of chills which have been present for the past week. She associates this with having a CT with contrast 1 week ago. She denies headache No oral lesions or pain, no gum bleeding She does have a cough but does not notice a change in her sputum Immediately after getting the contrast, she noted diarrhea but that lasted only 1 day No abdominal pain Pt appetite good, no vomiting No dysuria or flank pain No skin changes No leg swelling CT C/A/P /: Increase in the size and number of lung nodules, increase in the size of a periesophageal lymphnode, emphasematous disease stable PMH: HTN, RA, Lung Cancer PSH: R. Lobectomy Meds: Amlodipine, Atovaquone, Losartan, Zofran, Prednisone, Ultram, Ambien, Xanax ALL: ASA Social: Denies drug use, independent ADLs FH: ROS: GENERAL/CONSTITUTIONAL: Yes: chills No: fever, weakness, loss of appetite. HEAD, EYES, EARS, NOSE AND THROAT: No: change in vision, ear pain, discharge, sore throat, throat swelling. CARDIOVASCULAR: No: chest pain, lightheadedness, palpitations, syncope RESPIRATORY: Yes: cough, shortness of breath, wheezing No: hemoptysis, stridor. GASTROINTESTINAL: No: nausea, vomiting, diarrhea, abdominal cramping, rectal bleeding, constipation. GENITOURINARY: No: dysuria, hematuria, frequency, urgency, flank pain. MUSCULOSKELETAL: No: back pain, neck pain, joint pain, muscle swelling or pain SKIN AND BREASTS: No: lesions, pallor, rash or easy bruising. NEUROLOGIC: No: headache, vertigo, paresthesias, weakness ENDOCRINE: No: unexplained weight gain or loss HEMATOLOGIC/LYMPHATIC: No: anemia, easy bleeding, swelling nodes. PE: GENERAL: The patient is in no acute distress, pleasant. HEAD: Normal with no signs of trauma. EYES: PERRLA, EOMI, sclera anicteric, conjunctiva clear. ENT: Ears normal, nares patent, oropharynx clear without exudates. Dry mucous membranes. NECK: Normal range of motion, supple, no JVD LUNGS: Expiratory wheezing through out, no crackles noted HEART: Tachycardiac, no murmurs appreciated ABDOMEN: Soft, nontender, normoactive bowel sounds. No guarding, no rebound. . EXTREMITIES: Normal range of motion, no edema. NEUROLOGICAL: Cranial nerves II through XII grossly intact. Normal speech. No focal neurological deficits. MUSCULOSKELETAL: Back non-tender to palpation, no CVA tenderness SKIN: Warm, Dry, No erythema at the site of extravasation 05/23/18 10:04 05/23/18 10:05 05/23/18 10:20 05/23/18 10:32 Past History - Past Medical History Allergies/Adverse Reactions: Allergies Allergy/AdvReac Type Severity Reaction Status Date / Time aspirin AdvReac Mild Verified 05/23/18 11:15 Home Medications: Ambulatory Orders Alprazolam [Xanax] 0.5 mg PO HS 03/30/15 Zolpidem Tartrate [Ambien] 10 mg PO HS 03/30/15 Amlodipine Besylate [Norvasc -] 5 mg PO DAILY 11/14/17 Prednisone 5 mg PO DAILY 11/14/17 Cholecalciferol (Vitamin D3) [Vitamin D3] 1,000 unit PO DAILY 01/16/18 Losartan Potassium 25 mg PO DAILY 05/21/18 Anemia: No Asthma: No Cancer: Yes (LUNG) Cardiac Disorders: No CVA: No COPD: Yes CHF: No Dementia: No Diabetes: No (BORDERLINE) GI Disorders: Yes Disorders: No HTN: Yes Hypercholesterolemia: No Liver Disease: No Psychiatric Problems: Yes (depression) Seizures: No Thyroid Disease: No Lung CA: Yes - Surgical History Abdominal Surgery: No Appendectomy: No Cardiac Surgery: No Cholecystectomy: No Lung Surgery: Yes (right lobectomy 2014) Neurologic Surgery: No Orthopedic Surgery: No - Suicide/Smoking/Psychosocial Hx Smoking Status: Yes Smoking History: Former smoker Have you smoked in the past 12 months: Yes Number of Cigarettes Smoked Daily: 10 If you are a former smoker, when did you quit?: 12/16/14 'Breaking Loose' booklet given: 08/24/15 Hx Alcohol Use: Yes (SOCIAL) Drug/Substance Use Hx: No Substance Use Type: None Hx Substance Use Treatment: No ED Treatment Course - LABORATORY CBC & Chemistry Diagram: 05/25/18 05:30 05/25/18 05:30 Medical Decision Making - Medical Decision Making 05/23/18 09:45 Twelve-lead EKG was performed and reviewed by me. There is normal sinus rhythm with tachycardiac rate. The axis is normal. The intervals are normal. There are no ST or T wave abnormalities. Impression:Sinus tacycardia 05/23/18 10:14 73 yo F, progressing lung cancer, s/p chemo and RT Pt presenting with chills Unclear the source of this fever Will do: Sepsis orderset Will give Tylenol and IVF for pt tachycardia (Oral temp 99) EKG done Cherri and Bennett ordered per request of Dr Paige Will do CXR Will plan to admit 05/25/18 17:17 Laboratory Tests 05/23/18 05/23/18 05/23/18 10:35 10:35 10:35 WBC 8.6 Hgb 8.6 L Hct 26.0 L Plt Count 402 INR 1.25 H Sodium Potassium Chloride BUN Creatinine Lactic Acid Creatine Kinase 104 CK-MB (CK-2) < 1.0 Troponin I 05/23/18 05/23/18 10:35 10:35 WBC Hgb Hct Plt Count INR Sodium 140 Potassium 4.2 Chloride 106 BUN 15 Creatinine 1.5 H Lactic Acid 3.8 H* Creatine Kinase CK-MB (CK-2) Troponin I < 0.02 *DC/Admit/Observation/Transfer Diagnosis at time of Disposition: Chills (without fever) - Discharge Dispostion Condition at time of disposition: Stable Decision to Admit order: Yes - Referrals - Patient Instructions - Post Discharge Activity
[2018-05-23] MEDS ORDERED: PIPERACILLIN/TAZOB 4.5 GM 4.5 GM in DEXTROSE 5%-WATER 100 ML IVPB ONE (10:01)
[2018-05-23] MEDS ORDERED: VANCOMYCIN HCL 1,500 MG in DEXTROSE 5%-WATER - 500 ML IVPB ONE (10:01)
[2018-05-23] MEDS ORDERED: ALBUTEROL SO4 0.083% IH SOL 2.5 MG/3 ML VIAL.NEB. NEB PRN (10:02)
[2018-05-23] MEDS ORDERED: ACETAMINOPHEN 1000 MG/100 ML VIAL (NON FORMULARY) IVPB ONE (10:03)
[2018-05-23] MEDS ORDERED: ACETAMINOPHEN INJECTION 100 ML IVPB ONE (10:50)
[2018-05-23] MEDS ORDERED: PIPERACILLIN/TAZOB 4.5 GM 4.5 GM/100 ML BAG IVPB ONE (10:50)
[2018-05-23 10:51] LABS: VENOUS PH 7.32 (7.31-7.41); VENOUS PO2 63.2 mmHg (30-40)
[2018-05-23 10:55] LABS: BASO % 0.8 % (0-2.0); EOS % 1.9 % (0-4.5); HEMOGLOBIN 8.6 GM/dL (10.7-15.3); LYMPH % 13.9 % (8-40); MCH 31.2 pg (25.7-33.7); MEAN CELL VOLUME 94.5 fl (80-96); MEAN PLT VOLUME 8.1 fl (7.5-11.1); NEUT % 70.4 % (42.8-82.8); PLATELET COUNT 402 K/MM3 (134-434); RBC 2.75 M/mm3 (3.60-5.2); RDW 21.1 % (11.6-15.6); WHITE BLOOD COUNT 8.6 K/mm3 (4.0-10.0)
[2018-05-23] MEDS: SODIUM CHLORIDE 1,000 ML IV SCH (11:10)
[2018-05-23 11:23] LABS: ALBUMIN 2.9 g/dl (3.4-5.0); ALK PHOS 75 U/L (45-117); ANION GAP 10 MMOL/L (8-16); BILIRUBIN,TOTAL 0.8 mg/dL (0.2-1); BLOOD UREA NITROGEN 15 mg/dL (7-18); CALCIUM 7.9 mg/dL (8.5-10.1); CHLORIDE 106 mmol/L (98-107); CO2 24 mmol/L (21-32); CREATININE 1.5 mg/dL (0.55-1.3); GLUCOSE,RANDOM 177 mg/dL (74-106); POTASSIUM 4.2 mmol/L (3.5-5.1); SGOT/AST 45 U/L (15-37); SGPT/ALT 35 U/L (13-61); SODIUM 140 mmol/L (136-145); TOT PROT 6.1 g/dl (6.4-8.2)
[2018-05-23 11:30] LABS: INR 1.25 (0.83-1.09); PROTHROMBIN TIME (PATIENT) 14.8 SEC (9.7-13.0)
[2018-05-23 11:33] LABS: ACTIVATED PTT 27.2 SECONDS (25.2-36.5)
--- NOTE | 2018-05-23 12:29 | EKG ---
Test Reason : Blood Pressure : / mmHG Vent. Rate : 112 BPM Atrial Rate : 112 BPM P-R Int : 154 ms QRS Dur : 078 ms QT Int : 330 ms P-R-T Axes : 039 043 054 degrees QTc Int : 450 ms POOR DATA QUALITY, INTERPRETATION MAY BE ADVERSELY AFFECTED SINUS TACHYCARDIA OTHERWISE NORMAL ECG WHEN COMPARED WITH ECG OF 15-FEB-2018 14:24, PREMATURE ATRIAL COMPLEXES ARE NO LONGER PRESENT Confirmed by BARRINGTON BERRIOS, CARLOS ([id number]) on 05/23/2018 12:28:47 PM Referred By: Confirmed By:CARLOS FERRIS MD
--- NOTE | 2018-05-23 15:55 | HP ---
Admitting History and Physical - Primary Care Physician PCP: Juventino Ruby I - Admission Chief Complaint: Chills History of Present Illness: Patient is a 73 y/o female with past medical history RA, HTN, Squamous Cell Lung CA s/p lobectomy, adjuvant chemo, s/p mediastinal recurrence. Patient referred from her Oncologist office for chills x 1 week. Patient denies fever at home, productive cough. Last round of chemotherapy is 1 week ago with Gemzar. She says last round of chemo IV infiltrated while receiving Gemzar. History Source: Patient Limitations to Obtaining History: No Limitations - Past Medical History Cardiovascular: Yes: HTN Pulmonary: Yes: Other (Lung cancer --stage IIB . squamous cell) Rheumatology: Yes: Other (rheumatoid arthritis) - Smoking History Smoking history: Former smoker Have you smoked in the past 12 months: Yes Aproximately how many cigarettes per day: 10 If you are a former smoker, when did you quit?: 12/16/14 - Alcohol/Substance Use Hx Alcohol Use: Yes (SOCIAL) - Social History Usual Living Arrangement: Yes: Alone ADL: Independent History of Recent Travel: No Home Medications - Allergies Allergies/Adverse Reactions: Allergies Allergy/AdvReac Type Severity Reaction Status Date / Time aspirin AdvReac Mild Verified 05/23/18 11:15 - Home Medications Home Medications: Ambulatory Orders Alprazolam [Xanax] 0.5 mg PO HS 03/30/15 Zolpidem Tartrate [Ambien] 10 mg PO HS 03/30/15 Amlodipine Besylate [Norvasc -] 5 mg PO DAILY 11/14/17 Prednisone 5 mg PO DAILY 11/14/17 Cholecalciferol (Vitamin D3) [Vitamin D3] 1,000 unit PO DAILY 01/16/18 Losartan Potassium 25 mg PO DAILY 05/21/18 Review of Systems - Review of Systems Constitutional: reports: No Symptoms Eyes: reports: No Symptoms HENT: reports: No Symptoms Neck: reports: No Symptoms Cardiovascular: reports: No Symptoms Respiratory: reports: SOB Gastrointestinal: reports: No Symptoms Genitourinary: reports: No Symptoms Breasts: reports: No Symptoms Reported Musculoskeletal: reports: No Symptoms Integumentary: reports: No Symptoms Neurological: reports: No Symptoms Endocrine: reports: No Symptoms Hematology/Lymphatic: reports: No Symptoms Psychiatric: reports: No Symptoms Physical Examination Vital Signs: Vital Signs Temperature 99.1 F 04/10/19 09:55 Pulse Rate 96 H 05/23/18 13:51 Respiratory Rate 25 H 05/23/18 13:51 Blood Pressure 100/65 05/23/18 13:51 O2 Sat by Pulse Oximetry (%) 98 05/23/18 13:51 Constitutional: Yes: Well Nourished, No Distress, Calm Eyes: Yes: Conjunctiva Clear HENT: Yes: Atraumatic Neck: Yes: Supple Cardiovascular: Yes: Regular Rate and Rhythm Respiratory: Yes: Diminished, On Nasal O2 Gastrointestinal: Yes: Normal Bowel Sounds, Soft, Abdomen, Obese Musculoskeletal: Yes: Muscle Weakness Extremities: Yes: WNL Edema: No Neurological: Yes: Alert, Oriented Psychiatric: Yes: Alert, Oriented Labs: CBC, BMP 05/23/18 10:35 05/23/18 10:35 Imaging - Results Chest X-ray: Report Reviewed EKG: Report Reviewed Problem List - Problems (1) Chills (without fever) Assessment/Plan: -ID on board -no leukocytosis -IV Rocephin -afebrile Code(s): R68.83 - CHILLS (WITHOUT FEVER) (2) Stage 4 lung cancer Assessment/Plan: -Oncology on board Code(s): C34.90 - MALIGNANT NEOPLASM OF UNSP PART OF UNSP BRONCHUS OR LUNG (3) HTN (hypertension) Assessment/Plan: -continue with Amlodipine and Losartan -low Na diet Code(s): I10 - ESSENTIAL (PRIMARY) HYPERTENSION (4) Sepsis Assessment/Plan: -ID on board -no leukocytosis -afebrile -LA 3.8 ->2.1 -IV hydration -IV Rocephin Code(s): A41.9 - SEPSIS, UNSPECIFIED ORGANISM Qualifiers: Sepsis type: sepsis due to unspecified organism Qualified Code(s): A41.9 - Sepsis, unspecified organism (5) Pain and swelling of left wrist Assessment/Plan: -pain management -L wrist xray Code(s): M25.532 - PAIN IN LEFT WRIST; M25.432 - EFFUSION, LEFT WRIST (6) Rheumatoid arthritis Assessment/Plan: -continue prednisone Code(s): M06.9 - RHEUMATOID ARTHRITIS, UNSPECIFIED
--- NOTE | 2018-05-23 15:55 | PN ---
Progress Note (short form) - Note Progress Note: ID consult dictated imp/reccd 73 yo female metastatic squamous cell ca of the lung- s/p chemo 2 weeks ago- Gemzar, history of RA extravasation of gemzar left forearm, treated with keflex- she took for 3 or 4 days and self d/sindy on Monday due to diarrhea diarrhea now stopped has had chills from last that she attributed to contrast for the ct or her chemo - but she has never had this happen before she reports chills have persisted until she came to ED- stopped this am +shakes no dysuria no cough no abd pain or chest pain diarrhea has resolved notes left wrist is tender and enlarged compared to the right wrist not neutropenic chills no fever - not sure she has infection but chills have resolved after receiving antiiboitics ?infection related to her wrist swelling cultures have been sent she received vanco/zosyn in ed rick check random vanco level in am before redosing add rocephin consider imaging of the wrist as well metastatic lung ca s/p chemo Problem List - Problems (1) Chills (without fever) Code(s): R68.83 - CHILLS (WITHOUT FEVER) (2) Pain and swelling of left wrist Code(s): M25.532 - PAIN IN LEFT WRIST; M25.432 - EFFUSION, LEFT WRIST (3) Stage 4 lung cancer Code(s): C34.90 - MALIGNANT NEOPLASM OF UNSP PART OF UNSP BRONCHUS OR LUNG (4) RICK (acute kidney injury) Code(s): N17.9 - ACUTE KIDNEY FAILURE, UNSPECIFIED (5) Rheumatoid arthritis Code(s): M06.9 - RHEUMATOID ARTHRITIS, UNSPECIFIED
--- NOTE | 2018-05-23 16:35 | CONSULT ---
Consultation: REQUESTING PROVIDER: CONSULT REQUEST: We have been asked to medically evaluate this patient for hematology. HISTORY OF PRESENT ILLNESS: 73 y/o F w/PMH of RA (on prednisone), HTN, squamous cell lung ca s/p lobectomy, s/p carboplatinum and taxol x 3 cycles, w/mediastinal recurrence s/p taxol/RT c/ b pneumonitis, LAD biopsy consistent w/poorly differentiated carcinoma s/p RT to R neck adenopathy presents to the ER from visit to oncologist office (Dr. Paige) for chills x 1 week. Pt had Gemzar 2 weeks ago with infiltration into wrist and was placed on keflex which she did not finish due to diarrhea. She has been having chills x1 week and generalized weakness over the last few days. She denies CP, N/V/F, change in her baseline SOB, change in her baseline cough, abd pain, blood in stool, dysuria, blood in urine, LE edema. PMH: HTN, RA, Squamous lung ca PSHx: R Lobectomy Social: Denies drug use FH: n-c Allergies: Aspirin REVIEW OF SYSTEMS: CONSTITUTIONAL: +chils, generalized weakness Absent: fever CARDIOVASCULAR: Absent: chest pain, syncope, palpitations, irregular heart rate, lightheadedness , peripheral edema RESPIRATORY: +baseline cough, baseline SOB GASTROINTESTINAL: Absent: abdominal pain, nausea, vomiting GENITOURINARY: Absent: dysuria, hematuria NEUROLOGIC: Absent: headache PHYSICAL EXAMINATION Vital Signs - 24 hr 05/23/18 05/23/18 05/23/18 09:54 09:55 13:51 Temperature 99.1 F 99.1 F Pulse Rate 112 H 112 H Pulse Rate [ 96 H Left] Respiratory 39 H 38 H 25 H Rate Blood Pressure 125/79 125/79 Blood Pressure 100/65 [Arm] O2 Sat by Pulse 90 L 90 L 98 Oximetry (%) GENERAL: Awake, alert, and fully oriented, in no acute distress. HEAD: Normal with no signs of trauma. EYES: extraocular movements intact. EARS, NOSE, THROAT: Ears normal, nares patent NECK: Normal range of motion LUNGS: Breath sounds equal, clear to auscultation bilaterally. Decreased breath sounds overall due to body habitus. HEART: Tachycardic, S1 S2+ ABDOMEN: Soft, nontender, normoactive bowel sounds LOWER EXTREMITIES:warm, well-perfused. No peripheral edema. NEUROLOGICAL: Cranial nerves II-XII grossly intact. Normal speech. Gait not observed. PSYCHIATRIC: Cooperative. Good eye contact. Appropriate mood and affect. SKIN: Warm, dry Laboratory Results - last 24 hr 05/23/18 05/23/18 05/23/18 10:35 10:35 10:35 WBC 8.6 RBC 2.75 L Hgb 8.6 L Hct 26.0 L MCV 94.5 MCH 31.2 MCHC 33.0 RDW 21.1 H Plt Count 402 MPV 8.1 Absolute Neuts (auto) 6.1 Neutrophils % 70.4 Lymphocytes % 13.9 D Monocytes % 13.0 H Eosinophils % 1.9 Basophils % 0.8 Nucleated RBC % 0 PT with INR 14.80 H INR 1.25 H PTT (Actin FS) 27.2 VBG pH POC VBG pCO2 POC VBG pO2 VBG HCO3 VBG O2 Sat (Marie) VBG Base Excess Sodium Potassium Chloride Carbon Dioxide Anion Gap BUN Creatinine Creat Clearance w eGFR Random Glucose Lactic Acid Calcium Total Bilirubin AST ALT Alkaline Phosphatase Creatine Kinase 104 CK-MB (CK-2) < 1.0 Troponin I Total Protein Albumin 05/23/18 05/23/18 05/23/18 10:35 10:35 10:35 WBC RBC Hgb Hct MCV MCH MCHC RDW Plt Count MPV Absolute Neuts (auto) Neutrophils % Lymphocytes % Monocytes % Eosinophils % Basophils % Nucleated RBC % PT with INR INR PTT (Actin FS) VBG pH 7.32 POC VBG pCO2 44.0 POC VBG pO2 63.2 H VBG HCO3 21.9 L VBG O2 Sat (Marie) 87.3 H VBG Base Excess -3.5 L Sodium 140 Potassium 4.2 Chloride 106 Carbon Dioxide 24 Anion Gap 10 BUN 15 Creatinine 1.5 H Creat Clearance w eGFR 34.13 Random Glucose 177 H Lactic Acid 3.8 H* Calcium 7.9 L Total Bilirubin 0.8 AST 45 H ALT 35 Alkaline Phosphatase 75 Creatine Kinase CK-MB (CK-2) Troponin I < 0.02 Total Protein 6.1 L Albumin 2.9 L 05/23/18 05/23/18 10:35 14:20 WBC RBC Hgb Hct MCV MCH MCHC RDW Plt Count MPV Absolute Neuts (auto) Neutrophils % Lymphocytes % Monocytes % Eosinophils % Basophils % Nucleated RBC % PT with INR INR PTT (Actin FS) VBG pH POC VBG pCO2 POC VBG pO2 VBG HCO3 VBG O2 Sat (Marie) VBG Base Excess Sodium Potassium Chloride Carbon Dioxide Anion Gap BUN Creatinine Creat Clearance w eGFR Random Glucose Lactic Acid 2.1 H Calcium Total Bilirubin AST ALT Alkaline Phosphatase Creatine Kinase CK-MB (CK-2) Troponin I Cancelled Total Protein Albumin Active Medications Generic Name Dose Route Start Last Admin Trade Name Freq PRN Reason Stop Dose Admin Albuterol Sulfate 1 amp 05/23/18 10:02 Ventolin 0.083% Nebulizer Soln - NEB ONCE PRN WHEEZING Amlodipine Besylate 5 mg 05/24/18 10:00 Norvasc - PO DAILY RICHARD Sodium Chloride 1,000 mls @ 100 mls/hr 05/23/18 10:15 05/23/18 11:10 Normal Saline - IV 100 mls/hr ASDIR RICHARD Administration Ceftriaxone Sodium 1 gm/ 50 mls @ 100 mls/hr 05/23/18 16:15 Dextrose IVPB DAILY RICHARD Protocol Insulin Aspart 0 vial 05/23/18 16:30 Novolog Vial Sliding Scale - SQ ACHS RICHARD Protocol Losartan Potassium 25 mg 05/24/18 10:00 Cozaar - PO DAILY RICHARD Pantoprazole Sodium 40 mg 05/24/18 10:00 Protonix - PO DAILY RICHARD Prednisone 5 mg 05/24/18 10:00 Deltasone - PO DAILY RICHARD Zolpidem Tartrate 5 mg 05/23/18 15:50 Ambien - PO HS PRN INSOMNIA ASSESSMENT/PLAN: 73 y/o F w/PMH of RA (on prednisone), HTN, squamous cell lung ca s/p lobectomy, s/p carboplatinum and taxol x 3 cycles, w/mediastinal recurrence s/p taxol/RT c/ b pneumonitis, LAD biopsy consistent w/poorly differentiated carcinoma s/p RT to R neck adenopathy presents to the ER from visit to oncologist office (Dr. Paige) for chills x 1 week. -Squamous Cell Lung Ca -currently on gemzar. May need immunotherapy. -Previous CT scan of chest noted to have multiple nodules in lung robertson. -Anemia -Continue to monitor. MCV 94.5 -Check iron studies, B12, folate, FOBT, retic count, LDH, TSH Dispo: We will continue to follow the patient. Thank you for this consultative opportunity. Visit type - Emergency Visit Emergency Visit: Yes ED Registration Date: 05/23/18 Care time: The patient presented to the Emergency Department on the above date and was hospitalized for further evaluation of their emergent condition. - New Patient This patient is new to me today: Yes Date on this admission: 05/23/18 - Critical Care Critical Care patient: No
--- NOTE | 2018-05-23 19:07 | PN ---
Teaching Attending Note Name of Resident: Arturo Chandler ATTENDING PHYSICIAN STATEMENT I saw and evaluated the patient. I reviewed the resident's note and discussed the case with the resident. I agree with the resident's findings and plan as documented. SUBJECTIVE: Patient seen and examined Chills over past week without documented fevers. SCC of lung with multiple pulmonary nodules - s/p RT and taxol/ carboplatinum. Most recently with Gemzar and infiltration into dorsum of left hand and wrist. Took keflex x 4 days and then d/sindy because of diarrhea. Hx pf R.A on Prednisone. Last Vital Signs Temp Pulse Resp BP Pulse Ox 99.1 F 96 H 25 H 100/65 98 05/23/18 09:55 05/23/18 13:51 05/23/18 13:51 05/23/18 13:51 05/23/18 13:51 HEENT: GIUSEPPE, EOM Intact Oropharynx: No thrush, No mucositis Neck: Supple Cor: RSR, No murmurs, No gallops Lungs: scattered rhonchi Abd: Soft, Normal bowel sounds, No organomegaly Ext:No significant edema; tenderness dorsum of left wrist with swelling Skin: No rashes, Integument intact CBC, BMP 05/23/18 10:35 05/23/18 10:35 Current Medications Generic Name Dose Route Start Last Admin Trade Name Freq PRN Reason Stop Dose Admin Albuterol Sulfate 1 amp 05/23/18 10:02 Ventolin 0.083% Nebulizer Soln - NEB ONCE PRN WHEEZING Amlodipine Besylate 5 mg 05/24/18 10:00 Norvasc - PO DAILY RICHARD Sodium Chloride 1,000 mls @ 100 mls/hr 05/23/18 10:15 05/23/18 11:10 Normal Saline - IV 100 mls/hr ASDIR RICHARD Administration Ceftriaxone Sodium 1 gm/ 50 mls @ 100 mls/hr 05/23/18 16:15 Dextrose IVPB DAILY RICHARD Protocol Insulin Aspart 0 vial 05/23/18 16:30 Novolog Vial Sliding Scale - SQ ACHS RICHARD Protocol Losartan Potassium 25 mg 05/24/18 10:00 Cozaar - PO DAILY RICHARD Pantoprazole Sodium 40 mg 05/24/18 10:00 Protonix - PO DAILY RICHARD Prednisone 5 mg 05/24/18 10:00 Deltasone - PO DAILY RICHARD Zolpidem Tartrate 5 mg 05/23/18 15:50 Ambien - PO HS PRN INSOMNIA OBJECTIVE:Impressin SCC of lung with multiple pulmonary nodules Rheumatoid arthritis Gemzar infiltration dorsum left hand and wrist Anemia "Chills"- elevated lactic acid Plan: Antibiotics per ID Lab screen for anemia ASSESSMENT AND PLAN:
--- NOTE | 2018-05-23 20:43 | CONS ---
DATE OF CONSULTATION: DATE OF CONSULTATION: 05/23/2018 CONSULTATION REQUESTED BY: Grecia Ferreira MD HISTORY OF PRESENT ILLNESS: The patient is a 73-year-old woman with a history of squamous cell carcinoma of the lung. She has metastatic lung cancer and is status post Gemzar treatment with her last infusion on May 09, 2018. Following this infusion, she apparently developed some swelling of the left hand and wrist. She was started on Keflex. She took the Keflex for several days but developed diarrhea and stopped taking it on Monday. The diarrhea stopped as well. She thinks she took the Keflex for three or four days. She was scheduled to have a CT scan of her abdomen and pelvis on May 16, 2018, which she had. It showed an increase in the size and number of lung nodules. She reports that she started having shaking at around that time and that the shaking persisted without any documented fever until her arrival in our ER. She reported having chills. She had no abdominal pain, no chest pain and no cough. She has had a great appetite. She says she always eats. The diarrhea stopped on the weekend when she stopped the Keflex. She attributed the shaking to the contrast dye with the CT scan and the chemo, although she has never had this reaction in the past. In the emergency room, she was given antibiotics after blood cultures were drawn and she was given fluids. She reports that by the time we saw her, her chills and shaking had resolved. PAST MEDICAL HISTORY: Hypertension, rheumatoid, lung cancer. PAST SURGICAL HISTORY: Right lobectomy. SOCIAL HISTORY: She is a former smoker. She denies drug use. She is independent in her activities of daily living. She lives alone. She has had no sick contacts. The last time she traveled was around the time of her diagnosis of lung cancer. She has not traveled since then. ALLERGIES: ASPIRIN. HOME MEDICATIONS: Amlodipine, Atorvachol, Losartan, Zofran, prednisone, Ultram, Ambien and Xanax. REVIEW OF SYSTEMS: She denies headache or difficulty swallowing. She has a good appetite. She has no cough, no abdominal pain, no chest pain. Of note, her left wrist is slightly swollen and painful. PHYSICAL EXAMINATION: General: She is awake and alert. Vital Signs: Temperature was 99.1 in the emergency room. Heart rate was 121. Respiratory rate on admission was 38 and then 25 with a blood pressure of 100/65. She was saturating at 98% on room air. HEENT: Normocephalic. Her eyes are anicteric. She is edentulous. She has no thrush. Lungs: Diminished breath sounds at the bases. Heart: Regular rate and rhythm. Abdomen: Soft, nontender. Extremities: Notable for an ecchymotic ping on her left hand. She has some pain and swelling of the left wrist but there is no associated erythema or warmth. LABORATORY DATA: Her white count is 8.6, hemoglobin is 8.6, platelets are 402, INR is 1.25. BUN and creatinine are 15 and 1.5. Lactic acid was 3.8 on admission. Blood cultures have been sent. Her chest x-ray is notable for multiple nodules. There is no evidence of any acute infiltrate. In summary, this is a 73-year-old female with metastatic squamous cell carcinoma of the lung status post chemotherapy two weeks ago and a history of rheumatoid arthritis. She apparently had extravasation of the Gemzar into her forearm and was treated with a course of Keflex. She is not neutropenic; she has chills but no fever. I am not sure she has an infection but her chills resolved after she received antibiotics and fluids. The question is if this could be related to her wrist swelling. Cultures have been sent. She got vancomycin and Zosyn in the ER. She has evidence of acute kidney injury as well . We will check her vancomycin level in the morning before re-dosing. Would add Rocephin. Would consider imaging of the left wrist. Lastly, she has metastatic lung cancer and is status post chemotherapy. Further recommendations to follow. EVAN FLOERS M.D. [id number]
[2018-05-23] MEDS: INSULIN SLIDING SCALE (NOVOLOG) 1 VIAL SQ SCH (22:16)
[2018-05-23] MEDS: ZOLPIDEM TARTRATE 5 MG TABLET PO PRN (22:29)
[2018-05-23] MEDS ORDERED: oxyCODONE HCL 5 MG TABLET PO ONE (23:15)
[2018-05-23] MEDS ORDERED: ACETAMINOPHEN 325 MG TABLET (FP) PO ONE (23:15)
[2018-05-23] MEDS ORDERED: ALPRAZolam 0.25 MG TABLET PO ONE (23:45)
[2018-05-23] MEDS ORDERED: cefTRIAXone SODIUM 1 GM VIAL ONE (23:51)
[2018-05-23] MEDS ORDERED: DEXTROSE 5%-WATER - 50 ML IVPB ONE (23:52)
[2018-05-24] MEDS: CEFTRIAXONE 1 GM in DEXTROSE 5%-WATER - 50 ML IVPB SCH ×2 (00:11→09:47)
[2018-05-24] MEDS: ACETAMINOPHEN 325 MG TABLET (FP) PO PRN ×3 (02:35→13:15)
[2018-05-24] MEDS ORDERED: LIDOCAINE HCL 1%, 10 MG/ML (20ML VIAL) ONE (07:56)
--- NOTE | 2018-05-24 08:58 | PN ---
Progress Note (short form) - Note Progress Note: Vascular Surgery Pt was booked for outpt port placement today. Admitted now for fevers and chills. Will hold off port placement. Will be on standby if port is needed on this admission. Wilfred Chandler DO
--- NOTE | 2018-05-24 09:40 | PN ---
Progress Note (short form) - Note Progress Note: Patient seen and examined c/o generalized body pains Last Vital Signs Temp Pulse Resp BP Pulse Ox 99.1 F 105 H 19 117/57 L 95 05/24/18 06:00 05/24/18 06:00 05/24/18 06:00 05/24/18 06:00 05/23/18 21:00 Cor: RSR, No murmurs, No gallops Lungs: coarse breath sounds bilaterally Abd: Soft, Normal bowel sounds, No organomegaly Ext:No significant edema Left wrist --no erythema /tenderness Abnormal Lab Results 05/23/18 05/23/18 05/23/18 10:35 10:35 10:35 RBC 2.75 L Hgb 8.6 L Hct 26.0 L RDW 21.1 H Monocytes % 13.0 H PT with INR 14.80 H INR 1.25 H POC VBG pO2 63.2 H VBG HCO3 21.9 L VBG O2 Sat (Marie) 87.3 H VBG Base Excess -3.5 L Creatinine Random Glucose Lactic Acid Calcium AST Total Protein Albumin 05/23/18 05/23/18 05/23/18 10:35 10:35 14:20 RBC Hgb Hct RDW Monocytes % PT with INR INR POC VBG pO2 VBG HCO3 VBG O2 Sat (Marie) VBG Base Excess Creatinine 1.5 H Random Glucose 177 H Lactic Acid 3.8 H* 2.1 H Calcium 7.9 L AST 45 H Total Protein 6.1 L Albumin 2.9 L Active Medications Generic Name Dose Route Start Last Admin Trade Name Freq PRN Reason Stop Dose Admin Acetaminophen 325 mg 05/24/18 02:16 05/24/18 09:17 Tylenol - PO 325 mg Q6H PRN Administration FEVER Albuterol Sulfate 1 amp 05/23/18 10:02 Ventolin 0.083% Nebulizer Soln - NEB ONCE PRN WHEEZING Alprazolam 0.25 mg 05/24/18 09:37 Xanax - PO BID PRN ANXIETY Amlodipine Besylate 5 mg 05/24/18 10:00 Norvasc - PO DAILY RICHARD Sodium Chloride 1,000 mls @ 100 mls/hr 05/23/18 10:15 05/23/18 11:10 Normal Saline - IV 100 mls/hr ASDIR RICHARD Administration Ceftriaxone Sodium 1 gm/ 50 mls @ 100 mls/hr 05/23/18 16:15 05/24/18 00:11 Dextrose IVPB 100 mls/hr DAILY [facility] Administration Protocol Insulin Aspart 0 vial 05/23/18 16:30 05/23/18 22:16 Novolog Vial Sliding Scale - SQ Not Given ACHS RICHARD Protocol Losartan Potassium 25 mg 05/24/18 10:00 Cozaar - PO DAILY RICHARD Morphine Sulfate 2 mg 05/24/18 09:36 Morphine Sulfate IVPUSH Q4H PRN PAIN LEVEL 4 - 6 Pantoprazole Sodium 40 mg 05/24/18 10:00 Protonix - PO DAILY [facility] Prednisone 5 mg 05/24/18 10:00 Deltasone - PO DAILY RICHARD Prednisone 10 mg 05/24/18 20:00 Deltasone - PO 05/24/18 20:01 ONCE ONE Zolpidem Tartrate 5 mg 05/23/18 15:50 05/23/18 22:29 Ambien - PO 5 mg HS PRN Administration INSOMNIA A/P SCC of lung with multiple pulmonary nodules Rheumatoid arthritis Gemzar infiltration dorsum left hand and wrist Anemia "Chills"- elevated lactic acid Generalized body aches/pains CT scan --progressive disease plan: restart pain meds f/u cultures on rocephin u/s left wrist will swithc to nivolumab as outpatient
[2018-05-24] MEDS ORDERED: DEXTROSE 5%-WATER - 50 ML IVPB ONE ×2 (09:43→20:38)
[2018-05-24] MEDS ORDERED: cefTRIAXone SODIUM 1 GM VIAL ONE ×2 (09:43→20:38)
[2018-05-24] MEDS: LOSARTAN POTASSIUM 25 MG TABLET PO SCH (09:47)
[2018-05-24] MEDS: MORPHINE SULFATE 2 MG/ML VIAL IVPUSH PRN ×2 (09:47→21:03)
[2018-05-24] MEDS: amLODIPine BESYLATE 5 MG TABLET (FP) PO SCH (09:47)
[2018-05-24] MEDS: PANTOPRAZOLE 40 MG TABLET (FP) PO SCH (09:47)
[2018-05-24] MEDS ORDERED: predniSONE 5 MG TABLET (UD) PO SCH (10:00)
[2018-05-24] MEDS: INSULIN SLIDING SCALE (NOVOLOG) 1 VIAL SQ SCH ×3 (12:00→21:09)
--- NOTE | 2018-05-24 13:09 | PN ---
Progress Note, Physician Chief Complaint: patient seen and examined on iv abx for left wrist us of wrist pending - Current Medication List Current Medications: Active Medications Acetaminophen (Tylenol -) 325 mg PO Q6H PRN PRN Reason: FEVER Last Admin: 05/24/18 09:17 Dose: 325 mg Albuterol Sulfate (Ventolin 0.083% Nebulizer Soln -) 1 amp NEB ONCE PRN PRN Reason: WHEEZING Last Admin: 05/24/18 09:53 Dose: 1 amp Alprazolam (Xanax -) 0.25 mg PO BID PRN PRN Reason: ANXIETY Amlodipine Besylate (Norvasc -) 5 mg PO DAILY RICHARD Last Admin: 05/24/18 09:47 Dose: 5 mg Sodium Chloride (Normal Saline -) 1,000 mls @ 100 mls/hr IV ASDIR RICHARD Last Admin: 05/23/18 11:10 Dose: 100 mls/hr Ceftriaxone Sodium 1 gm/ (Dextrose) 50 mls @ 100 mls/hr IVPB DAILY [facility]; Protocol Last Admin: 05/24/18 09:47 Dose: 100 mls/hr Insulin Aspart (Novolog Vial Sliding Scale -) 0 vial SQ ACHS RICHARD; Protocol Last Admin: 05/23/18 22:16 Dose: Not Given Losartan Potassium (Cozaar -) 25 mg PO DAILY [facility] Last Admin: 05/24/18 09:47 Dose: 25 mg Morphine Sulfate (Morphine Sulfate) 2 mg IVPUSH Q4H PRN PRN Reason: PAIN LEVEL 4 - 6 Last Admin: 05/24/18 09:47 Dose: 2 mg Pantoprazole Sodium (Protonix -) 40 mg PO DAILY RICHARD Last Admin: 05/24/18 09:47 Dose: 40 mg Prednisone (Deltasone -) 5 mg PO DAILY RICHARD Last Admin: 05/24/18 09:47 Dose: 5 mg Prednisone (Deltasone -) 10 mg PO ONCE ONE Stop: 05/24/18 20:01 Zolpidem Tartrate (Ambien -) 5 mg PO HS PRN PRN Reason: INSOMNIA Last Admin: 05/23/18 22:29 Dose: 5 mg - Objective Vital Signs: Vital Signs Temperature 97.8 F 05/24/18 09:31 Pulse Rate 108 H 05/24/18 09:31 Respiratory Rate 24 H 04/11/19 09:31 Blood Pressure 122/70 04/11/19 09:31 O2 Sat by Pulse Oximetry (%) 94 L 05/24/18 09:00 Constitutional: Yes: Calm Cardiovascular: Yes: Regular Rate and Rhythm, S1, S2 Respiratory: Yes: Diminished, On Nasal O2 Gastrointestinal: Yes: Normal Bowel Sounds, Soft Musculoskeletal: Yes: Other (wrist swelling) Labs: CBC, BMP 05/23/18 10:35 05/23/18 10:35 INR, PTT INR 1.25 (0.83-1.09) H 05/23/18 10:35 Problem List - Problems (1) THIAGO (acute kidney injury) Assessment/Plan: repeat labs pending ivf Code(s): N17.9 - ACUTE KIDNEY FAILURE, UNSPECIFIED (2) Pain and swelling of left wrist Assessment/Plan: ID on board iv rocephin elevated lactic acid - repeat ordered Code(s): M25.532 - PAIN IN LEFT WRIST; M25.432 - EFFUSION, LEFT WRIST (3) SCC (squamous cell carcinoma of lung) Assessment/Plan: oncology is on board outpatiet port placement Code(s): C34.90 - MALIGNANT NEOPLASM OF UNSP PART OF UNSP BRONCHUS OR LUNG (4) Rheumatoid arthritis Assessment/Plan: on prednisone ppi Code(s): M06.9 - RHEUMATOID ARTHRITIS, UNSPECIFIED
[2018-05-24] MEDS: ALPRAZolam 0.25 MG TABLET PO PRN ×2 (13:15→23:03)
[2018-05-24 13:52] LABS: BASO % 0.5 % (0-2.0); EOS % 0.4 % (0-4.5); HEMATOCRIT 26.4 % (32.4-45.2); HEMOGLOBIN 8.9 GM/dL (10.7-15.3); LYMPH % 9.9 % (8-40); MCHC 33.6 g/dl (32.0-36.0); MEAN CELL VOLUME 92.4 fl (80-96); MEAN PLT VOLUME 7.7 fl (7.5-11.1); MONO % 9.4 % (3.8-10.2); NEUT % 79.8 % (42.8-82.8); PLATELET COUNT 448 K/MM3 (134-434); RBC 2.86 M/mm3 (3.60-5.2); RDW 21.3 % (11.6-15.6); WHITE BLOOD COUNT 8.2 K/mm3 (4.0-10.0)
[2018-05-24 14:25] LABS: ALBUMIN 2.8 g/dl (3.4-5.0); ALK PHOS 75 U/L (45-117); ANION GAP 4 MMOL/L (8-16); BILIRUBIN,TOTAL 1.1 mg/dL (0.2-1); BLOOD UREA NITROGEN 9 mg/dL (7-18); CALCIUM 8.4 mg/dL (8.5-10.1); CHLORIDE 108 mmol/L (98-107); CO2 26 mmol/L (21-32); CREATININE 1.1 mg/dL (0.55-1.3); GLUCOSE,RANDOM 173 mg/dL (74-106); SGOT/AST 35 U/L (15-37); SGPT/ALT 30 U/L (13-61); SODIUM 138 mmol/L (136-145); TOT PROT 6.4 g/dl (6.4-8.2)
[2018-05-24] MEDS: SODIUM CHLORIDE 1,000 ML IV SCH (17:48)
[2018-05-24] MEDS ORDERED: AZITHROMYCIN 250 MG TABLET PO ONE (18:24)
--- NOTE | 2018-05-24 18:24 | PN ---
Progress Note (short form) - Note Progress Note: congested and coughing today productive cough! she was not coughing at all yesterday febrile to 102 today as well! Vital Signs Period Temp Pulse Resp BP Sys/Medeiros Pulse Ox Last 24 Hr 97.8 F-102.7 F 100-123 18-24 117-142/57-72 94-95 cor-rrr lungs bilateral rhonchi abd soft,nt ext wrist slightly swollen but no erythema CBC, BMP 05/24/18 13:30 05/24/18 13:30 Microbiology 05/23/18 10:35 Blood - Peripheral Venous Blood Culture - Preliminary NO GROWTH OBTAINED AFTER 24 HOURS, INCUBATION TO CONTINUE FOR 4 DAYS. 05/23/18 10:35 Blood - Peripheral Venous Blood Culture - Preliminary NO GROWTH OBTAINED AFTER 24 HOURS, INCUBATION TO CONTINUE FOR 4 DAYS. a/p ?influenza versus pneumonia continue rocephin, add zithromax influenza screen urinary antigens sputum culture thiago resolved swollen wrist- await imaging metastatic lung ca s/p chemo Problem List - Problems (1) Chills (without fever) Code(s): R68.83 - CHILLS (WITHOUT FEVER) (2) Pain and swelling of left wrist Code(s): M25.532 - PAIN IN LEFT WRIST; M25.432 - EFFUSION, LEFT WRIST (3) Stage 4 lung cancer Code(s): C34.90 - MALIGNANT NEOPLASM OF UNSP PART OF UNSP BRONCHUS OR LUNG (4) THIAGO (acute kidney injury) Code(s): N17.9 - ACUTE KIDNEY FAILURE, UNSPECIFIED (5) Rheumatoid arthritis Code(s): M06.9 - RHEUMATOID ARTHRITIS, UNSPECIFIED
[2018-05-24] MEDS ORDERED: CEFTRIAXONE 1 GM in DEXTROSE 5%-WATER - 50 ML IVPB ONE (18:45)
[2018-05-24] MEDS ORDERED: predniSONE 10 MG TABLET (UD) PO ONE (20:00)
[2018-05-24] MEDS ORDERED: ACETAMINOPHEN 325 MG TABLET (FP) PO PRN (20:54)
[2018-05-24] MEDS: ZOLPIDEM TARTRATE 5 MG TABLET PO PRN (23:03)
[2018-05-25] MEDS ORDERED: methylPREDNISolone NA SUCC 40 MG/1 ML VIAL IVPUSH SCH (02:00)
[2018-05-25] MEDS: methylPREDNISolone NA SUCC 40 MG/1 ML VIAL IVPB SCH ×3 (03:00→17:04)
[2018-05-25 06:54] LABS: BASO % 0.3 % (0-2.0); EOS % 0.1 % (0-4.5); HEMATOCRIT 25.4 % (32.4-45.2); HEMOGLOBIN 8.4 GM/dL (10.7-15.3); LYMPH % 9.9 % (8-40); MCH 30.8 pg (25.7-33.7); MCHC 33.1 g/dl (32.0-36.0); MEAN CELL VOLUME 92.9 fl (80-96); MEAN PLT VOLUME 7.9 fl (7.5-11.1); MONO % 6.1 % (3.8-10.2); NEUT % 83.6 % (42.8-82.8); PLATELET COUNT 403 K/MM3 (134-434); RBC 2.73 M/mm3 (3.60-5.2); RDW 21.4 % (11.6-15.6); WHITE BLOOD COUNT 8.1 K/mm3 (4.0-10.0)
[2018-05-25 07:17] LABS: ALBUMIN 2.5 g/dl (3.4-5.0); ALK PHOS 67 U/L (45-117); ANION GAP 5 MMOL/L (8-16); BILIRUBIN,TOTAL 0.8 mg/dL (0.2-1); BLOOD UREA NITROGEN 13 mg/dL (7-18); CHLORIDE 109 mmol/L (98-107); CO2 25 mmol/L (21-32); CREATININE 1.1 mg/dL (0.55-1.3); GLUCOSE,RANDOM 162 mg/dL (74-106); POTASSIUM 4.5 mmol/L (3.5-5.1); SGOT/AST 30 U/L (15-37); SGPT/ALT 25 U/L (13-61); SODIUM 138 mmol/L (136-145); TOT PROT 6.2 g/dl (6.4-8.2)
--- NOTE | 2018-05-25 09:25 | PN ---
Progress Note (short form) - Note Progress Note: still coughing but feels improved influenza antigen negative productive cough yellow sputum Vital Signs Period Temp Pulse Resp BP Sys/Medeiros Pulse Ox Last 24 Hr 97.8 F-102.7 F 96-123 18-24 107-136/60-75 94 cor-rrr lungs bilateral rhonchi abd soft,nt ext left wriist improved ROM CBC, BMP 05/25/18 05:30 05/25/18 05:30 Microbiology 05/23/18 10:35 Blood - Peripheral Venous Blood Culture - Preliminary NO GROWTH OBTAINED AFTER 24 HOURS, INCUBATION TO CONTINUE FOR 4 DAYS. 05/23/18 10:35 Blood - Peripheral Venous Blood Culture - Preliminary NO GROWTH OBTAINED AFTER 24 HOURS, INCUBATION TO CONTINUE FOR 4 DAYS. Active Medications Acetaminophen (Tylenol -) 650 mg PO Q6H PRN PRN Reason: FEVER Albuterol Sulfate (Ventolin 0.083% Nebulizer Soln -) 1 amp NEB ONCE PRN PRN Reason: WHEEZING Last Admin: 05/24/18 09:53 Dose: 1 amp Alprazolam (Xanax -) 0.25 mg PO BID PRN PRN Reason: ANXIETY Last Admin: 05/24/18 23:03 Dose: 0.25 mg Amlodipine Besylate (Norvasc -) 5 mg PO DAILY RICHARD Last Admin: 05/24/18 09:47 Dose: 5 mg Sodium Chloride (Normal Saline -) 1,000 mls @ 100 mls/hr IV ASDIR RICHARD Last Admin: 05/24/18 17:48 Dose: 100 mls/hr Ceftriaxone Sodium 2 gm/ (Dextrose) 100 mls @ 100 mls/hr IVPB DAILY RICHARD; Protocol Insulin Aspart (Novolog Vial Sliding Scale -) 0 vial SQ ACHS RICHARD; Protocol Last Admin: 05/24/18 21:09 Dose: Not Given Losartan Potassium (Cozaar -) 25 mg PO DAILY RICHARD Last Admin: 05/24/18 09:47 Dose: 25 mg Methylprednisolone Sodium Succinate (Solu-Medrol -) 40 mg IVPB Q8H-IV RICHARD Last Admin: 05/25/18 03:00 Dose: 40 mg Morphine Sulfate (Morphine Sulfate) 2 mg IVPUSH Q4H PRN PRN Reason: PAIN LEVEL 4 - 6 Last Admin: 05/24/18 21:03 Dose: 2 mg Pantoprazole Sodium (Protonix -) 40 mg PO DAILY RICHARD Last Admin: 05/24/18 09:47 Dose: 40 mg Zolpidem Tartrate (Ambien -) 5 mg PO HS PRN PRN Reason: INSOMNIA Last Admin: 05/24/18 23:03 Dose: 5 mg a/p suspect pneumonia rocephin, po zithromax (poor iv access) influenza screen negative urinary antigens ordered but not sent yet sputum culture ordered thiago resolved swollen wrist- improving ROM await imaging metastatic lung ca s/p chemo Problem List - Problems (1) Chills (without fever) Code(s): R68.83 - CHILLS (WITHOUT FEVER) (2) Pain and swelling of left wrist Code(s): M25.532 - PAIN IN LEFT WRIST; M25.432 - EFFUSION, LEFT WRIST (3) Stage 4 lung cancer Code(s): C34.90 - MALIGNANT NEOPLASM OF UNSP PART OF UNSP BRONCHUS OR LUNG (4) THIAGO (acute kidney injury) Code(s): N17.9 - ACUTE KIDNEY FAILURE, UNSPECIFIED (5) Rheumatoid arthritis Code(s): M06.9 - RHEUMATOID ARTHRITIS, UNSPECIFIED
[2018-05-25] MEDS ORDERED: DEXTROSE 5%-WATER 100 ML IVPB ONE (09:37)
[2018-05-25] MEDS: LOSARTAN POTASSIUM 25 MG TABLET PO SCH (09:43)
[2018-05-25] MEDS: amLODIPine BESYLATE 5 MG TABLET (FP) PO SCH (09:43)
[2018-05-25] MEDS: PANTOPRAZOLE 40 MG TABLET (FP) PO SCH (09:43)
[2018-05-25] MEDS ORDERED: CEFTRIAXONE 2 GM in DEXTROSE 5%-WATER 100 ML IVPB SCH (10:00)
[2018-05-25] MEDS: SODIUM CHLORIDE 1,000 ML IV SCH (11:00)
[2018-05-25] MEDS: INSULIN SLIDING SCALE (NOVOLOG) 1 VIAL SQ SCH ×3 (11:54→23:28)
--- NOTE | 2018-05-25 12:17 | PN ---
Progress Note (short form) - Note Progress Note: PULMONARY CONSULTATION DICTATED 05/25/18 IMP COUGH,FEVER,CHILLS ? PNEUMONIA,BRONCHITIS METASTATIC LUNG CA SQUAMOUS CELL COPD RA ANEMIA ELEVATED LACTATE LEVEL CORRECTED PLAN ABX PER ID INHALED BRONCHODILATORS O2 NEEDED SHORT COURSE OF STEROIDS PFTS OUTPATIENT DR KERR Problem List - Problems (1) Chills (without fever) Code(s): R68.83 - CHILLS (WITHOUT FEVER) (2) SCC (squamous cell carcinoma of lung) Code(s): C34.90 - MALIGNANT NEOPLASM OF UNSP PART OF UNSP BRONCHUS OR LUNG (3) Stage 4 lung cancer Code(s): C34.90 - MALIGNANT NEOPLASM OF UNSP PART OF UNSP BRONCHUS OR LUNG (4) Cellulitis of left hand Code(s): L03.114 - CELLULITIS OF LEFT UPPER LIMB (5) Fever Code(s): R50.9 - FEVER, UNSPECIFIED (6) Pulmonary infiltrate Code(s): R91.8 - OTHER NONSPECIFIC ABNORMAL FINDING OF LUNG FIELD (7) Rheumatoid arthritis Code(s): M06.9 - RHEUMATOID ARTHRITIS, UNSPECIFIED (8) Sepsis Code(s): A41.9 - SEPSIS, UNSPECIFIED ORGANISM Qualifiers: Sepsis type: sepsis due to unspecified organism Qualified Code(s): A41.9 - Sepsis, unspecified organism
--- NOTE | 2018-05-25 13:29 | PN ---
Progress Note, Physician Chief Complaint: patient seen and examiend - Current Medication List Current Medications: Active Medications Acetaminophen (Tylenol -) 650 mg PO Q6H PRN PRN Reason: FEVER Albuterol Sulfate (Ventolin 0.083% Nebulizer Soln -) 1 amp NEB ONCE PRN PRN Reason: WHEEZING Last Admin: 05/24/18 09:53 Dose: 1 amp Alprazolam (Xanax -) 0.25 mg PO BID PRN PRN Reason: ANXIETY Last Admin: 05/24/18 23:03 Dose: 0.25 mg Amlodipine Besylate (Norvasc -) 5 mg PO DAILY RICHARD Last Admin: 05/25/18 09:43 Dose: 5 mg Sodium Chloride (Normal Saline -) 1,000 mls @ 100 mls/hr IV ASDIR RICHARD Last Admin: 05/25/18 11:00 Dose: 100 mls/hr Ceftriaxone Sodium 2 gm/ (Dextrose) 100 mls @ 100 mls/hr IVPB DAILY RICHARD; Protocol Last Admin: 05/25/18 09:41 Dose: 100 mls/hr Insulin Aspart (Novolog Vial Sliding Scale -) 0 vial SQ ACHS RICHARD; Protocol Last Admin: 05/25/18 11:54 Dose: Not Given Losartan Potassium (Cozaar -) 25 mg PO DAILY RICHARD Last Admin: 05/25/18 09:43 Dose: 25 mg Methylprednisolone Sodium Succinate (Solu-Medrol -) 40 mg IVPB Q8H-IV IRCHARD Last Admin: 05/25/18 09:43 Dose: 40 mg Morphine Sulfate (Morphine Sulfate) 2 mg IVPUSH Q4H PRN PRN Reason: PAIN LEVEL 4 - 6 Last Admin: 05/24/18 21:03 Dose: 2 mg Pantoprazole Sodium (Protonix -) 40 mg PO DAILY RICHARD Last Admin: 05/25/18 09:43 Dose: 40 mg Zolpidem Tartrate (Ambien -) 5 mg PO HS PRN PRN Reason: INSOMNIA Last Admin: 05/24/18 23:03 Dose: 5 mg - Objective Vital Signs: Vital Signs Temperature 98.1 F 05/25/18 09:04 Pulse Rate 100 H 05/25/18 09:04 Respiratory Rate 22 H 05/25/18 09:04 Blood Pressure 136/67 05/25/18 09:04 O2 Sat by Pulse Oximetry (%) 92 L 05/25/18 09:00 Constitutional: Yes: Calm Cardiovascular: Yes: Regular Rate and Rhythm, S1, S2 Respiratory: Yes: CTA Bilaterally Gastrointestinal: Yes: Normal Bowel Sounds, Soft Musculoskeletal: Yes: Other (wrist pain and swelling better has ROM) Labs: CBC, BMP 05/25/18 05:30 05/25/18 05:30 INR, PTT INR 1.25 (0.83-1.09) H 05/23/18 10:35 Problem List - Problems (1) THIAGO (acute kidney injury) Assessment/Plan: ivf- creatininie now normal Code(s): N17.9 - ACUTE KIDNEY FAILURE, UNSPECIFIED (2) Pain and swelling of left wrist Assessment/Plan: ID on board iv rocephin elevated lactic acid - repeat ordered now 2.1 ultrasound of wrist done report pending Code(s): M25.532 - PAIN IN LEFT WRIST; M25.432 - EFFUSION, LEFT WRIST (3) SCC (squamous cell carcinoma of lung) Assessment/Plan: oncology is on board outpatiet port placement Code(s): C34.90 - MALIGNANT NEOPLASM OF UNSP PART OF UNSP BRONCHUS OR LUNG (4) Rheumatoid arthritis Assessment/Plan: on prednisone ppi Code(s): M06.9 - RHEUMATOID ARTHRITIS, UNSPECIFIED
--- NOTE | 2018-05-25 19:56 | PN ---
Progress Note (short form) - Note Progress Note: Patient seen and examined feels better Last Vital Signs Temp Pulse Resp BP Pulse Ox 97.5 F L 103 H 22 H 147/70 96 05/26/18 08:49 05/26/18 08:49 05/26/18 09:00 05/26/18 08:49 05/26/18 09:00 Cor: RSR, No murmurs, No gallops Lungs: coarse breath sounds bilaterally Abd: Soft, Normal bowel sounds, No organomegaly Ext:No significant edema Left wrist --no erythema /tenderness Labs/Meds reviewed A/P SCC of lung with multiple pulmonary nodules Rheumatoid arthritis Gemzar infiltration dorsum left hand and wrist Anemia "Chills"- elevated lactic acid Generalized body aches/pains CT scan --progressive disease plan: restart pain meds f/u cultures on rocephin/azithroma2 u/s left wrist shows no abscess/DVT on steroids may need home O2 will switch to nivolumab as outpatient
[2018-05-25] MEDS: ALBUTEROL SO4 2.5/IPRATROPIUM 0.5 INH SOL 3 ML VIAL.NEB. NEB PRN (22:35)
[2018-05-25] MEDS: ZOLPIDEM TARTRATE 5 MG TABLET PO PRN (23:28)
[2018-05-25] MEDS: ALPRAZolam 0.25 MG TABLET PO PRN (23:28)
[2018-05-26] MEDS ORDERED: ZOLPIDEM TARTRATE 5 MG TABLET PO ONE (01:51)
[2018-05-26] MEDS: methylPREDNISolone NA SUCC 40 MG/1 ML VIAL IVPB SCH (02:11)
--- NOTE | 2018-05-26 08:29 | PN ---
Progress Note, Physician Chief Complaint: THIAGO Metastatic Lung Ca Anemia History of Present Illness: NAD Seen by pulmonary and oncology - Current Medication List Current Medications: Active Medications Acetaminophen (Tylenol -) 650 mg PO Q6H PRN PRN Reason: FEVER Albuterol Sulfate (Ventolin 0.083% Nebulizer Soln -) 1 amp NEB ONCE PRN PRN Reason: WHEEZING Last Admin: 05/24/18 09:53 Dose: 1 amp Albuterol/Ipratropium (Duoneb -) 1 amp NEB Q4H PRN PRN Reason: SHORTNESS OF BREATH Last Admin: 05/25/18 22:35 Dose: 1 amp Alprazolam (Xanax -) 0.25 mg PO BID PRN PRN Reason: ANXIETY Last Admin: 05/25/18 23:28 Dose: 0.25 mg Amlodipine Besylate (Norvasc -) 5 mg PO DAILY RICHARD Last Admin: 05/25/18 09:43 Dose: 5 mg Sodium Chloride (Normal Saline -) 1,000 mls @ 100 mls/hr IV ASDIR RICHARD Last Admin: 05/25/18 11:00 Dose: 100 mls/hr Ceftriaxone Sodium 2 gm/ (Dextrose) 100 mls @ 100 mls/hr IVPB DAILY R[facility]ARD; Protocol Last Admin: 05/25/18 09:41 Dose: 100 mls/hr Insulin Aspart (Novolog Vial Sliding Scale -) 0 vial SQ ACHS RICHARD; Protocol Last Admin: 05/25/18 23:28 Dose: Not Given Losartan Potassium (Cozaar -) 25 mg PO DAILY RICHARD Last Admin: 05/25/18 09:43 Dose: 25 mg Methylprednisolone Sodium Succinate (Solu-Medrol -) 40 mg IVPB Q8H-IV RICHARD Last Admin: 05/26/18 02:11 Dose: 40 mg Morphine Sulfate (Morphine Sulfate) 2 mg IVPUSH Q4H PRN PRN Reason: PAIN LEVEL 4 - 6 Last Admin: 05/24/18 21:03 Dose: 2 mg Pantoprazole Sodium (Protonix -) 40 mg PO DAILY RICHARD Last Admin: 05/25/18 09:43 Dose: 40 mg Zolpidem Tartrate (Ambien -) 5 mg PO HS PRN PRN Reason: INSOMNIA Last Admin: 05/25/18 23:28 Dose: 5 mg - Objective Vital Signs: Vital Signs Temperature 98.6 F 05/26/18 06:00 Pulse Rate 106 H 05/26/18 06:00 Respiratory Rate 20 05/26/18 06:00 Blood Pressure 153/90 05/26/18 06:00 O2 Sat by Pulse Oximetry (%) 93 L 05/25/18 21:00 Constitutional: Yes: Well Nourished, No Distress, Calm Cardiovascular: Yes: Regular Rate and Rhythm Respiratory: Yes: Regular Gastrointestinal: Yes: WNL Genitourinary: Yes: WNL Musculoskeletal: Yes: WNL Extremities: Yes: WNL Edema: No Peripheral Pulses WNL: Yes Neurological: Yes: Alert, Oriented Psychiatric: Yes: Alert, Oriented Labs: CBC, BMP 05/25/18 05:30 INR, PTT INR 1.25 (0.83-1.09) H 05/23/18 10:35 Problem List - Problems (1) THIAGO (acute kidney injury) Assessment/Plan: -IVF-decrease to 50 cc/hr -Encourage PO fluids -Cr Improved -Monitor trend Code(s): N17.9 - ACUTE KIDNEY FAILURE, UNSPECIFIED (2) Pain and swelling of left wrist Assessment/Plan: -LUE U/S doppler negative for DVT Code(s): M25.532 - PAIN IN LEFT WRIST; M25.432 - EFFUSION, LEFT WRIST (3) SCC (squamous cell carcinoma of lung) Assessment/Plan: -Oncology on board -Seen by pulmonary Code(s): C34.90 - MALIGNANT NEOPLASM OF UNSP PART OF UNSP BRONCHUS OR LUNG (4) Fever Assessment/Plan: -afebrile overnight -Cultures negative -Seen by ID -Check UA/UC -On IV Rocephin Code(s): R50.9 - FEVER, UNSPECIFIED Assessment/Plan see problem list DVT prophylaxis Physical therapy
[2018-05-26 08:45] LABS: ALBUMIN 2.7 g/dl (3.4-5.0); ALK PHOS 70 U/L (45-117); ANION GAP 9 MMOL/L (8-16); BILIRUBIN,TOTAL 0.4 mg/dL (0.2-1); BLOOD UREA NITROGEN 18 mg/dL (7-18); CALCIUM 7.8 mg/dL (8.5-10.1); CHLORIDE 110 mmol/L (98-107); CO2 22 mmol/L (21-32); CREATININE 1.1 mg/dL (0.55-1.3); GLUCOSE,RANDOM 246 mg/dL (74-106); POTASSIUM 4.4 mmol/L (3.5-5.1); SGOT/AST 23 U/L (15-37); SGPT/ALT 23 U/L (13-61); SODIUM 141 mmol/L (136-145); TOT PROT 6.5 g/dl (6.4-8.2)
[2018-05-26] MEDS ORDERED: methylPREDNISolone NA SUCC 40 MG/1 ML VIAL IVPUSH SCH (10:00)
[2018-05-26] MEDS ORDERED: DEXTROSE 5%-WATER 100 ML IVPB ONE (10:09)
[2018-05-26] MEDS: LOSARTAN POTASSIUM 25 MG TABLET PO SCH (10:13)
[2018-05-26] MEDS: PANTOPRAZOLE 40 MG TABLET (FP) PO SCH (10:13)
[2018-05-26] MEDS: amLODIPine BESYLATE 5 MG TABLET (FP) PO SCH (10:13)
--- NOTE | 2018-05-26 11:12 | PN ---
Progress Note (short form) - Note Progress Note: much improved today no cough now on steroids no iv access Vital Signs Period Temp Pulse Resp BP Sys/Medeiros Pulse Ox Last 24 Hr 97.5 F-98.6 F 82-106 18-22 105-153/56-91 93-96 cor-rrr llungs decreased bs t bases, clear abd soft,nt ext minimal wrist discomfort, FROM+ CBC, BMP 05/25/18 05:30 05/26/18 06:40 Microbiology 05/23/18 10:35 Blood - Peripheral Venous Blood Culture - Preliminary NO GROWTH OBTAINED AFTER 72 HOURS, INCUBATION TO CONTINUE FOR 2 DAYS. 05/23/18 10:35 Blood - Peripheral Venous Blood Culture - Preliminary NO GROWTH OBTAINED AFTER 72 HOURS, INCUBATION TO CONTINUE FOR 2 DAYS. 05/25/18 10:00 Sputum - Expectorated Gram Stain - Final 05/25/18 11:00 Urine For Antigen Detection Legionella Antigen - Final 05/25/18 11:00 Urine For Antigen Detection Streptococcus pneumoniae Antigen (M - Final a/p pneumonia/bronchitis repeat cxray po ceftin/zithromax-day #4 antibiotics no iv access thiago resolved swollen wrist- improving ROM, swelling resolved, imaging no collection- secondary to extravasation- resolved metastatic lung ca s/p chemo Problem List - Problems (1) Chills (without fever) Code(s): R68.83 - CHILLS (WITHOUT FEVER) (2) Pain and swelling of left wrist Code(s): M25.532 - PAIN IN LEFT WRIST; M25.432 - EFFUSION, LEFT WRIST (3) Stage 4 lung cancer Code(s): C34.90 - MALIGNANT NEOPLASM OF UNSP PART OF UNSP BRONCHUS OR LUNG (4) THIAGO (acute kidney injury) Code(s): N17.9 - ACUTE KIDNEY FAILURE, UNSPECIFIED (5) Rheumatoid arthritis Code(s): M06.9 - RHEUMATOID ARTHRITIS, UNSPECIFIED
[2018-05-26] MEDS: SODIUM CHLORIDE 1,000 ML IV SCH (12:00)
[2018-05-26] MEDS: INSULIN SLIDING SCALE (NOVOLOG) 1 VIAL SQ SCH ×3 (12:00→22:34)
[2018-05-26] MEDS ORDERED: PT OWN MED DRAWER 7, Y5N ONE ×2 (14:32→21:50)
[2018-05-26] MEDS: AZITHROMYCIN 250 MG TABLET PO SCH (14:42)
--- NOTE | 2018-05-26 14:43 | PN ---
Progress Note (short form) - Note Progress Note: PULMONARY Denies shortness of breath, cough or wheezing. Vital Signs Period Temp Pulse Resp BP Sys/Medeiros Pulse Ox Last 24 Hr 97.5 F-98.6 F 100-106 18-22 105-153/56-91 93-96 Gen: NAD at rest Heart: RRR Lung: decreased breath sounds at the bases Abd: soft, nontender Ext: no edema CBC, BMP 05/25/18 05:30 05/26/18 06:40 Active Medications Acetaminophen (Tylenol -) 650 mg PO Q6H PRN PRN Reason: FEVER Albuterol Sulfate (Ventolin 0.083% Nebulizer Soln -) 1 amp NEB ONCE PRN PRN Reason: WHEEZING Last Admin: 05/24/18 09:53 Dose: 1 amp Albuterol/Ipratropium (Duoneb -) 1 amp NEB Q4H PRN PRN Reason: SHORTNESS OF BREATH Last Admin: 05/25/18 22:35 Dose: 1 amp Alprazolam (Xanax -) 0.25 mg PO BID PRN PRN Reason: ANXIETY Last Admin: 05/25/18 23:28 Dose: 0.25 mg Amlodipine Besylate (Norvasc -) 5 mg PO DAILY [facility] Last Admin: 05/26/18 10:13 Dose: 5 mg Azithromycin (Zithromax -) 250 mg PO DAILY [facility] Cefuroxime Axetil (Ceftin -) 500 mg PO BID [facility] Sodium Chloride (Normal Saline -) 1,000 mls @ 50 mls/hr IV ASDIR [facility] Insulin Aspart (Novolog Vial Sliding Scale -) 0 vial SQ ACHS [facility]; Protocol Last Admin: 05/25/18 23:28 Dose: Not Given Losartan Potassium (Cozaar -) 25 mg PO DAILY [facility] Last Admin: 05/26/18 10:13 Dose: 25 mg Morphine Sulfate (Morphine Sulfate) 2 mg IVPUSH Q4H PRN PRN Reason: PAIN LEVEL 4 - 6 Last Admin: 05/24/18 21:03 Dose: 2 mg Pantoprazole Sodium (Protonix -) 40 mg PO DAILY [facility] Last Admin: 05/26/18 10:13 Dose: 40 mg Prednisone (Deltasone -) 30 mg PO BID [facility] Zolpidem Tartrate (Ambien -) 5 mg PO HS PRN PRN Reason: INSOMNIA Last Admin: 05/25/18 23:28 Dose: 5 mg A/P r/o Pneumonia Metastatic Lung Cancer COPD Rheumatoid Arthritis Anemia - continue antibiotics per ID - inhaled bronchodilators - O2 as needed - can decrease prednisone to daily - DVT prophylaxis
[2018-05-26] MEDS: CEFUROXIME AXETIL 500 MG TABLET PO SCH ×2 (14:45→22:35)
[2018-05-26] MEDS: ALBUTEROL SO4 2.5/IPRATROPIUM 0.5 INH SOL 3 ML VIAL.NEB. NEB PRN (20:45)
[2018-05-26] MEDS ORDERED: predniSONE 10 MG TABLET (UD) PO SCH (22:00)
--- NOTE | 2018-05-26 22:21 | PN ---
Progress Note (short form) - Note Progress Note: Patient seen in follow up. No new complaints. Cough improved. Has lost IV access. Inpatient Meds reviewed. Current Medications Acetaminophen (Tylenol -) 650 mg PO Q6H PRN PRN Reason: FEVER Albuterol Sulfate (Ventolin 0.083% Nebulizer Soln -) 1 amp NEB ONCE PRN PRN Reason: WHEEZING Last Admin: 05/24/18 09:53 Dose: 1 amp Albuterol/Ipratropium (Duoneb -) 1 amp NEB Q4H PRN PRN Reason: SHORTNESS OF BREATH Last Admin: 05/25/18 22:35 Dose: 1 amp Alprazolam (Xanax -) 0.25 mg PO BID PRN PRN Reason: ANXIETY Last Admin: 05/25/18 23:28 Dose: 0.25 mg Amlodipine Besylate (Norvasc -) 5 mg PO DAILY [facility] Last Admin: 05/26/18 10:13 Dose: 5 mg Azithromycin (Zithromax -) 250 mg PO DAILY [facility] Last Admin: 05/26/18 14:42 Dose: 250 mg Cefuroxime Axetil (Ceftin -) 500 mg PO BID [facility] Last Admin: 05/26/18 14:45 Dose: 500 mg Sodium Chloride (Normal Saline -) 1,000 mls @ 50 mls/hr IV ASDIR [facility] Last Admin: 05/26/18 12:00 Dose: Not Given Insulin Aspart (Novolog Vial Sliding Scale -) 0 vial SQ ACHS [facility]; Protocol Last Admin: 05/26/18 17:31 Dose: 6 units Losartan Potassium (Cozaar -) 25 mg PO DAILY [facility] Last Admin: 05/26/18 10:13 Dose: 25 mg Morphine Sulfate (Morphine Sulfate) 2 mg IVPUSH Q4H PRN PRN Reason: PAIN LEVEL 4 - 6 Last Admin: 05/24/18 21:03 Dose: 2 mg Pantoprazole Sodium (Protonix -) 40 mg PO DAILY [facility] Last Admin: 05/26/18 10:13 Dose: 40 mg Solumedrol 40mgs BID [facility] Zolpidem Tartrate (Ambien -) 5 mg PO HS PRN PRN Reason: INSOMNIA Last Admin: 05/25/18 23:28 Dose: 5 mg On Examination: Last Vital Signs Temp Pulse Resp BP Pulse Ox 97.8 F 75 19 120/54 L 96 05/26/18 14:30 05/26/18 14:30 05/26/18 14:30 05/26/18 14:30 05/26/18 09:00 General: In no acute distress, seen in solarium Extremities: No pallor or icterus. No pedal edema. No palpable lymphadenopathy. CVS: S1, S2, regular, no gallop or murmur. Chest: good air entry bilaterally, clear Abdomen: Non-distended, non-tender, no palpable organomegaly. Neuro: Alert, oriented, non-focal. Labs: CBC, BMP 05/25/18 05:30 05/26/18 06:40 Assessment. SCC of lung, reportedly progressive. Admitted with respiratory symptoms, improved with empiric Abics and steroids. Off IV Abics today, will continue taper steroids, change to oral PDN (no IV access) Will be starting immunotherapy as outpatient.
--- NOTE | 2018-05-26 22:30 | CONSULT ---
Consult Consult Specialty:: endocrine Referred by:: orlin dobson np Reason for Consultation:: diabetes mellitus 2 - History of Present Illness Chief Complaint: high sugar History of Present Illness: 73-year-old female history of RA , HTN, squamous cell lung cancer s/p lobectomy , adjuvant chemotherapy with carboplatinum and taxol x 3 cycles, s/p mediastinal recurrence, s/p taxol/RT complicated by pneumonitis. pt since admission required steroids for sever copd,she feels this is medication induced doesnt want to take insulin and feels it will go away when she is off steroids.she denies polyuria and polydipsia,she has not kept strict diet recently however feels she can control sugar with diet alone. - Past Medical History Cardio/Vascular: Yes: HTN Pulmonary: Yes: Other (Lung cancer --stage IIB . squamous cell) ...: No Rheumatology: Yes: Other (rheumatoid arthritis) - Alcohol/Substance Use Hx Alcohol Use: Yes (SOCIAL) - Smoking History Smoking history: Former smoker Have you smoked in the past 12 months: Yes Aproximately how many cigarettes per day: 10 If you are a former smoker, when did you quit?: 12/16/14 - Social History ADL: Independent History of Recent Travel: No Home Medications - Allergies Allergies/Adverse Reactions: Allergies Allergy/AdvReac Type Severity Reaction Status Date / Time aspirin AdvReac Mild Verified 05/23/18 11:15 - Home Medications Home Medications: Ambulatory Orders Alprazolam [Xanax] 0.5 mg PO HS 03/30/15 Zolpidem Tartrate [Ambien] 10 mg PO HS 03/30/15 Amlodipine Besylate [Norvasc -] 5 mg PO DAILY 11/14/17 Prednisone 5 mg PO DAILY 11/14/17 Cholecalciferol (Vitamin D3) [Vitamin D3] 1,000 unit PO DAILY 01/16/18 Losartan Potassium 25 mg PO DAILY 05/21/18 Review of Systems - Review of Systems Constitutional: reports: Weakness Eyes: reports: No Symptoms HENT: reports: No Symptoms Neck: reports: No Symptoms Cardiovascular: reports: Shortness of Breath Respiratory: reports: Exercise Intolerance, SOB on Exertion, Wheezing Gastrointestinal: reports: Bloating Genitourinary: reports: No Symptoms Breasts: reports: No Symptoms Reported Musculoskeletal: reports: Joint Swelling, Muscle Pain, Muscle Cramps Neurological: reports: No Symptoms Endocrine: reports: Unexplained Weight Gain Physical Exam Vital Signs: Vital Signs Temperature 97.8 F 05/26/18 14:30 Pulse Rate 75 05/26/18 14:30 Respiratory Rate 05/26/18 14:30 Blood Pressure 120/54 L 05/26/18 14:30 O2 Sat by Pulse Oximetry (%) 96 05/26/18 09:00 Constitutional: Yes: Anxious Eyes: Yes: EOM Intact HENT: Yes: Normocephalic Neck: Yes: Trachea Midline Cardiovascular: Yes: Regular Rate and Rhythm Respiratory: Yes: Rhonchi, SOB, Wheezes Gastrointestinal: Yes: Abdomen, Obese ...Rectal Exam: Yes: Deferred Renal/: Yes: WNL Musculoskeletal: Yes: WNL, Joint Swelling, Muscle Pain, Muscle Weakness Extremities: Yes: Delayed Capillary Refill Edema: Yes Edema: LLE: 1+, RLE: 1+ Neurological: Yes: Alert, Oriented Labs: CBC, BMP 05/25/18 05:30 05/26/18 06:40 Assessment/Plan Current Active Problems diabetes mellitus hyperglycemia steroid related stress induced morbid obesity THIAGO (acute kidney injury) (Acute) Chills (without fever) (Acute) Pain and swelling of left wrist (Acute) SCC (squamous cell carcinoma of lung) (Acute) Stage 4 lung cancer (Acute) thyroditis vs early hyperthyroidism Abnormal Lab Results 05/26/18 05/26/18 05:45 06:40 Chloride 110 H Random Glucose 246 H Hemoglobin A1c % 8.2 H Calcium 7.8 L Ferritin 1526.6 H Albumin 2.7 L Vitamin B12 5750 H TSH 0.22 L Free T4 1.62 H Laboratory Results - last 24 hr 05/26/18 05/26/18 05/26/18 05:45 06:40 08:03 Sodium 141 Potassium 4.4 Chloride 110 H Carbon Dioxide 22 Anion Gap 9 BUN 18 Creatinine 1.1 Creat Clearance w eGFR 48.82 POC Glucometer 266 Random Glucose 246 H Hemoglobin A1c % 8.2 H Calcium 7.8 L Ferritin 1526.6 H Total Bilirubin 0.4 AST 23 ALT 23 Alkaline Phosphatase 70 Total Protein 6.5 Albumin 2.7 L Vitamin B12 5750 H Serum Folate 7 TSH 0.22 L Free T4 1.62 H 05/26/18 05/26/18 12:00 16:55 Sodium Potassium Chloride Carbon Dioxide Anion Gap BUN Creatinine Creat Clearance w eGFR POC Glucometer 339 324 Random Glucose Hemoglobin A1c % Calcium Ferritin Total Bilirubin AST ALT Alkaline Phosphatase Total Protein Albumin Vitamin B12 Serum Folate TSH Free T4 plan: metformin 500mg bid glimiperide 1mg daily bgm coverage over 300mg/dl diet and diabetic education repeat free t4 direct dialysis [id number] tpo
[2018-05-27] MEDS: ALPRAZolam 0.25 MG TABLET PO PRN (00:22)
[2018-05-27] MEDS: ZOLPIDEM TARTRATE 5 MG TABLET PO PRN (00:22)
[2018-05-27] MEDS: INSULIN SLIDING SCALE (NOVOLOG) 1 VIAL SQ SCH ×4 (06:20→22:14)
[2018-05-27] MEDS ORDERED: PT OWN MED DRAWER 7, Y5N ONE ×3 (06:27→21:00)
[2018-05-27 06:58] LABS: SERUM IRON SATURATION 25 % (15-55); TOTAL IRON BINDING CAPACITY 215 ug/dL (250-450); UIBC 162 ug/dL (118-369)
[2018-05-27] MEDS: metFORMIN HCL 500 MG TABLET (FP) PO SCH ×2 (06:58→17:10)
[2018-05-27] MEDS: GLIMEPIRIDE 1 MG TABLET (FP) PO SCH (06:58)
[2018-05-27] MEDS ORDERED: INSULIN SLIDING SCALE (NOVOLOG) 1 VIAL SQ SCH (07:00)
[2018-05-27] MEDS: PANTOPRAZOLE 40 MG TABLET (FP) PO SCH (09:24)
[2018-05-27] MEDS: AZITHROMYCIN 250 MG TABLET PO SCH (09:25)
[2018-05-27] MEDS: amLODIPine BESYLATE 5 MG TABLET (FP) PO SCH (09:25)
[2018-05-27] MEDS: LOSARTAN POTASSIUM 25 MG TABLET PO SCH (09:25)
[2018-05-27] MEDS: predniSONE 10 MG TABLET (UD) PO SCH (09:26)
--- NOTE | 2018-05-27 09:38 | PN ---
Progress Note, Physician Chief Complaint: THIAGO Metastatic Lung Ca Anemia History of Present Illness: NAD Seen by pulmonary and oncology is on intermediate prednisone 5 mg po daily for RA newly diagnosed with diabetes refuses meds, wants to follow dietary and lifestyle modification - Current Medication List Current Medications: Active Medications Acetaminophen (Tylenol -) 650 mg PO Q6H PRN PRN Reason: FEVER Albuterol Sulfate (Ventolin 0.083% Nebulizer Soln -) 1 amp NEB ONCE PRN PRN Reason: WHEEZING Last Admin: 05/24/18 09:53 Dose: 1 amp Albuterol/Ipratropium (Duoneb -) 1 amp NEB Q4H PRN PRN Reason: SHORTNESS OF BREATH Last Admin: 05/26/18 20:45 Dose: 1 amp Alprazolam (Xanax -) 0.25 mg PO BID PRN PRN Reason: ANXIETY Last Admin: 05/27/18 00:22 Dose: 0.25 mg Amlodipine Besylate (Norvasc -) 5 mg PO DAILY [facility] Last Admin: 05/27/18 09:25 Dose: 5 mg Azithromycin (Zithromax -) 250 mg PO DAILY [facility] Last Admin: 05/27/18 09:25 Dose: 250 mg Cefuroxime Axetil (Ceftin -) 500 mg PO BID [facility] Last Admin: 05/26/18 22:35 Dose: 500 mg Glimepiride (Amaryl -) 1 mg PO DAILY@0700 [facility] Last Admin: 05/27/18 06:58 Dose: Not Given Sodium Chloride (Normal Saline -) 1,000 mls @ 50 mls/hr IV ASDIR [facility] Last Admin: 05/26/18 12:00 Dose: Not Given Insulin Aspart (Novolog Vial Sliding Scale -) 1 vial SQ ACHS [facility]; Protocol Last Admin: 05/27/18 06:20 Dose: Not Given Losartan Potassium (Cozaar -) 25 mg PO DAILY [facility] Last Admin: 05/27/18 09:25 Dose: 25 mg Metformin HCl (Glucophage -) 500 mg PO BID@0700,1630 [facility] Last Admin: 05/27/18 06:58 Dose: Not Given Morphine Sulfate (Morphine Sulfate) 2 mg IVPUSH Q4H PRN PRN Reason: PAIN LEVEL 4 - 6 Last Admin: 05/24/18 21:03 Dose: 2 mg Pantoprazole Sodium (Protonix -) 40 mg PO DAILY [facility] Last Admin: 05/27/18 09:24 Dose: 40 mg Prednisone (Deltasone -) 30 mg PO DAILY [facility] Last Admin: 05/27/18 09:26 Dose: 30 mg Zolpidem Tartrate (Ambien -) 5 mg PO HS PRN PRN Reason: INSOMNIA Last Admin: 05/27/18 00:22 Dose: 5 mg - Objective Vital Signs: Vital Signs Temperature 97 F L 05/27/18 09:00 Pulse Rate 107 H 05/27/18 09:00 Respiratory Rate 22 H 05/27/18 09:00 Blood Pressure 113/77 05/27/18 09:00 O2 Sat by Pulse Oximetry (%) 95 05/26/18 21:00 Constitutional: Yes: Well Nourished, No Distress, Calm, Obese Cardiovascular: Yes: Regular Rate and Rhythm Respiratory: Yes: Regular, On Nasal O2 Gastrointestinal: Yes: WNL Musculoskeletal: Yes: WNL Extremities: Yes: WNL Edema: No Peripheral Pulses WNL: Yes Neurological: Yes: Alert, Oriented Psychiatric: Yes: Alert, Oriented Labs: CBC, BMP 05/25/18 05:30 05/26/18 06:40 INR, PTT INR 1.25 (0.83-1.09) H 05/23/18 10:35 Problem List - Problems (1) THIAGO (acute kidney injury) Assessment/Plan: -IVF-decrease to 50 cc/hr -Encourage PO fluids -Cr Improved -Monitor trend Code(s): N17.9 - ACUTE KIDNEY FAILURE, UNSPECIFIED (2) Pain and swelling of left wrist Assessment/Plan: -resolved -LUE U/S doppler negative for DVT Code(s): M25.532 - PAIN IN LEFT WRIST; M25.432 - EFFUSION, LEFT WRIST (3) SCC (squamous cell carcinoma of lung) Assessment/Plan: -Oncology on board -Seen by pulmonary Code(s): C34.90 - MALIGNANT NEOPLASM OF UNSP PART OF UNSP BRONCHUS OR LUNG (4) Fever Assessment/Plan: -afebrile overnight -Cultures negative -Seen by ID -Check UA/UC: still uncollected -On IV Rocephin -Repeat CXR Code(s): R50.9 - FEVER, UNSPECIFIED (5) Diabetes Assessment/Plan: -seen by car manager -Refusing insulin and diabetes meds Code(s): E11.9 - TYPE 2 DIABETES MELLITUS WITHOUT COMPLICATIONS Assessment/Plan see problem list
--- NOTE | 2018-05-27 11:25 | PN ---
Progress Note (short form) - Note Progress Note: PULMONARY Denies shortness of breath or wheezing. States nebs are making her cough. Vital Signs Period Temp Pulse Resp BP Sys/Medeiros Pulse Ox Last 24 Hr 97 F-97.8 F 75-107 19-22 113-158/54-95 95-96 Gen: NAD at rest Heart: RRR Lung: decreased breath sounds at the bases Abd: soft, nontender Ext: no edema CBC, BMP 05/25/18 05:30 05/26/18 06:40 Active Medications Acetaminophen (Tylenol -) 650 mg PO Q6H PRN PRN Reason: FEVER Albuterol Sulfate (Ventolin 0.083% Nebulizer Soln -) 1 amp NEB ONCE PRN PRN Reason: WHEEZING Last Admin: 05/24/18 09:53 Dose: 1 amp Albuterol/Ipratropium (Duoneb -) 1 amp NEB Q4H PRN PRN Reason: SHORTNESS OF BREATH Last Admin: 05/26/18 20:45 Dose: 1 amp Alprazolam (Xanax -) 0.25 mg PO BID PRN PRN Reason: ANXIETY Last Admin: 05/27/18 00:22 Dose: 0.25 mg Amlodipine Besylate (Norvasc -) 5 mg PO DAILY [facility] Last Admin: 05/27/18 09:25 Dose: 5 mg Azithromycin (Zithromax -) 250 mg PO DAILY [facility] Last Admin: 05/27/18 09:25 Dose: 250 mg Cefuroxime Axetil (Ceftin -) 500 mg PO BID [facility] Last Admin: 05/26/18 22:35 Dose: 500 mg Glimepiride (Amaryl -) 1 mg PO DAILY@0700 [facility] Last Admin: 05/27/18 06:58 Dose: Not Given Sodium Chloride (Normal Saline -) 1,000 mls @ 50 mls/hr IV ASDIR [facility] Last Admin: 05/26/18 12:00 Dose: Not Given Insulin Aspart (Novolog Vial Sliding Scale -) 1 vial SQ ACHS [facility]; Protocol Last Admin: 05/27/18 06:20 Dose: Not Given Losartan Potassium (Cozaar -) 25 mg PO DAILY [facility] Last Admin: 05/27/18 09:25 Dose: 25 mg Metformin HCl (Glucophage -) 500 mg PO BID@0700,1630 [facility] Last Admin: 05/27/18 06:58 Dose: Not Given Morphine Sulfate (Morphine Sulfate) 2 mg IVPUSH Q4H PRN PRN Reason: PAIN LEVEL 4 - 6 Last Admin: 05/24/18 21:03 Dose: 2 mg Pantoprazole Sodium (Protonix -) 40 mg PO DAILY [facility] Last Admin: 05/27/18 09:24 Dose: 40 mg Prednisone (Deltasone -) 30 mg PO DAILY [facility] Last Admin: 05/27/18 09:26 Dose: 30 mg Zolpidem Tartrate (Ambien -) 5 mg PO HS PRN PRN Reason: INSOMNIA Last Admin: 05/27/18 00:22 Dose: 5 mg A/P r/o Pneumonia Metastatic Lung Cancer COPD Rheumatoid Arthritis Anemia - continue antibiotics per ID - inhaled bronchodilators - O2 as needed - prednisone taper - DVT prophylaxis
[2018-05-27] MEDS: SODIUM CHLORIDE 1,000 ML IV SCH (13:14)
[2018-05-27] MEDS: CEFUROXIME AXETIL 500 MG TABLET PO SCH ×2 (13:17→22:16)
[2018-05-27 13:26] LABS: URINE APPEARANCE CLEAR; URINE BILIRUBIN NEGATIVE (NEGATIVE); URINE COLOR YELLOW; URINE GLUCOSE (UA) 1+ (NEGATIVE); URINE KETONE NEGATIVE (NEGATIVE); URINE LEUK ESTERASE NEGATIVE (NEGATIVE); URINE NITRITE NEGATIVE (NEGATIVE); URINE PROTEIN NEGATIVE (NEGATIVE); URINE UROBILINOGEN 0.2 mg/dL (0.2-1.0)
--- NOTE | 2018-05-27 23:44 | PN ---
Progress Note (short form) - Note Progress Note: Patient seen in follow up. No new complaints. Cough improved. Says collette makes her cough. Inpatient Meds reviewed. Current Medications Generic Name Dose Route Start Last Admin Trade Name Freq PRN Reason Stop Dose Admin Acetaminophen 650 mg 05/24/18 20:54 Tylenol - PO Q6H PRN FEVER Albuterol Sulfate 1 amp 05/23/18 10:02 05/24/18 09:53 Ventolin 0.083% Nebulizer Soln - NEB 1 amp ONCE PRN Administration WHEEZING Albuterol/Ipratropium 1 amp 05/25/18 14:09 05/26/18 20:45 Duoneb - NEB 1 amp Q4H PRN Administration SHORTNESS OF BREATH Alprazolam 0.25 mg 05/24/18 09:37 05/27/18 00:22 Xanax - PO 0.25 mg BID PRN Administration ANXIETY Amlodipine Besylate 5 mg 05/24/18 10:00 05/27/18 09:25 Norvasc - PO 5 mg DAILY [facility] Administration Azithromycin 250 mg 05/26/18 11:00 05/27/18 09:25 Zithromax - PO 250 mg DAILY [facility] Administration Cefuroxime Axetil 500 mg 05/26/18 11:45 05/27/18 22:16 Ceftin - PO 500 mg BID [facility] Administration Glimepiride 1 mg 05/27/18 07:00 05/27/18 06:58 Amaryl - PO Not Given DAILY@0700 [facility] Sodium Chloride 1,000 mls @ 50 mls/hr 05/26/18 08:25 05/27/18 13:14 Normal Saline - IV Not Given ASDIR [facility] Insulin Aspart 1 vial 05/26/18 22:43 05/27/18 22:14 Novolog Vial Sliding Scale - SQ Not Given ACHS [facility] Protocol Losartan Potassium 25 mg 05/24/18 10:00 05/27/18 09:25 Cozaar - PO 25 mg DAILY [facility] Administration Metformin HCl 500 mg 05/27/18 07:00 05/27/18 17:10 Glucophage - PO 500 mg BID@0700,1630 [facility] Administration Pantoprazole Sodium 40 mg 05/24/18 10:00 05/27/18 09:24 Protonix - PO 40 mg DAILY [facility] Administration Prednisone 30 mg 05/27/18 10:00 05/27/18 09:26 Deltasone - PO 30 mg DAILY [facility] Administration Zolpidem Tartrate 5 mg 05/23/18 15:50 05/27/18 00:22 Ambien - PO 5 mg HS PRN Administration INSOMNIA On Examination: Last Vital Signs Temp Pulse Resp BP Pulse Ox 97.5 F L 104 H 20 155/81 98 05/27/18 21:00 05/27/18 21:00 05/27/18 21:00 05/27/18 21:00 05/27/18 21:00 General: In no acute distress, seen in solarium Extremities: No pallor or icterus. No pedal edema. No palpable lymphadenopathy. CVS: S1, S2, regular, no gallop or murmur. Chest: good air entry bilaterally, clear Abdomen: Non-distended, non-tender, no palpable organomegaly. Neuro: Alert, oriented, non-focal. Labs: CBC, BMP 05/25/18 05:30 05/26/18 06:40 Assessment. SCC of lung, reportedly progressive. Admitted with respiratory symptoms, improved with empiric Abics and steroids. Off IV Abics today, will continue taper steroids, change to oral PDN (no IV access) Will be starting immunotherapy as outpatient.
[2018-05-28] MEDS: ZOLPIDEM TARTRATE 5 MG TABLET PO PRN ×2 (00:09→23:15)
[2018-05-28] MEDS: ALPRAZolam 0.25 MG TABLET PO PRN ×2 (00:09→23:15)
[2018-05-28] MEDS: metFORMIN HCL 500 MG TABLET (FP) PO SCH ×2 (06:00→17:31)
[2018-05-28] MEDS: INSULIN SLIDING SCALE (NOVOLOG) 1 VIAL SQ SCH ×4 (06:00→22:00)
[2018-05-28] MEDS: GLIMEPIRIDE 1 MG TABLET (FP) PO SCH (06:00)
--- NOTE | 2018-05-28 08:00 | CONS ---
DATE OF CONSULTATION: 05/25/2018 PULMONARY CONSULTATION HISTORY OF PRESENT ILLNESS: The patient is a 73-year-old black female with a past medical history of advanced squamous cell CA, diagnosed in 2014, status post wedge resection, chemotherapy, Carbotaxol on 3 cycles status post mediastinal recurrence, multiple pulmonary nodules currently on Gemzar, hypertension, rheumatoid arthritis, COPD, admitted to [facility] with complaints of chills, cough for the past week prior to admission. Patient apparently received Gemzar 2 weeks prior to admission. Apparently she developed some swelling of her left wrist. About a week prior to admission, started developing chills, not feeling well, a cough nonproductive. Denied any chest pain, nausea, vomiting, diaphoresis. Denied any significant increasing shortness of breath. Of note is the patient underwent a CT of the chest on May 16 which revealed increased size and number of lung nodules. Patient had no evidence of acute pneumonia. She was admitted with the above. On admission she was evaluated by Dr. Canchola and placed on broad-spectrum antibiotics for possible skin infection as well as possible pneumonia. Hospitalization significant for, she has had persistent cough which is nonproductive. She also had occasional shortness of breath with exertion. Denies any hemoptysis. She has a history of smoking, quit a few years ago. There is no history of occupational exposure to chemicals or fumes. She states she used the inhaled bronchodilator at home. PAST MEDICAL HISTORY: Again includes squamous cell lung cancer status post resection, postoperative treated with chemotherapy. Status post recurrence in mediastinum, now with multiple pulmonary nodules, currently on Gemzar, rheumatoid arthritis, hypertension, COPD. REVIEW OF SYSTEMS: Positive cough. No chest pain. No palpitations. No hemoptysis. Positive dyspnea on exertion. Positive fever. Positive chills. No abdominal pain. No lower extremity edema. CURRENT MEDICATIONS: Include Solu-Medrol 40 q.8, Tylenol, Cozaar, ceftriaxone, Ambien, Xanax, albuterol, Norvasc, normal saline, morphine, and Protonix. PHYSICAL EXAMINATION: GENERAL: The patient is a well developed, nourished female in no acute distress. She is afebrile. VITAL SIGNS: Blood pressure 137/67, respiratory rate 22, O2 saturation is 92 to 93 percent on 2 L. HEENT: Normocephalic, atraumatic. NECK: Supple. HEART: Regular S1, S2. CHEST: Clear. ABDOMEN: Soft, bowel sounds positive. EXTREMITIES: Improved range of motion and swelling on the left wrist. Chest x-ray, questionable infiltrate to the left base. WBC is 8.4, hematocrit 25.4 with platelet count of 403,000. Venous blood gas 7.32, pCO2 of 44, pO2 of 63, a bicarbonate of 21. Chemistries: BUN is 13, creatinine 1.1, lactate level initially was 3.8 currently 1.5. Chest x-ray as noted earlier. IMPRESSION: 1. Fever, chills, possible pneumonia, possible bronchitis. 2. Metastatic lung carcinoma, squamous cell. 3. Chronic obstructive pulmonary disease. 4. Rheumatoid arthritis. 5. Anemia. 6. Elevated lactate level, currently normal. PLAN: Continue antibiotics as per infectious disease. Inhaled bronchodilators, supplemental O2. Short course of Medrol. Monitor also PFTs as an outpatient. Shiva [id number]
[2018-05-28] MEDS: PANTOPRAZOLE 40 MG TABLET (FP) PO SCH (09:53)
[2018-05-28] MEDS: amLODIPine BESYLATE 5 MG TABLET (FP) PO SCH (09:53)
[2018-05-28] MEDS: LOSARTAN POTASSIUM 25 MG TABLET PO SCH (09:53)
[2018-05-28] MEDS: AZITHROMYCIN 250 MG TABLET PO SCH (09:53)
[2018-05-28] MEDS: SODIUM CHLORIDE 1,000 ML IV SCH (09:59)
[2018-05-28] MEDS: predniSONE 10 MG TABLET (UD) PO SCH (09:59)
[2018-05-28] MEDS: CEFUROXIME AXETIL 500 MG TABLET PO SCH (09:59)
--- NOTE | 2018-05-28 10:36 | PN ---
Progress Note (short form) - Note Progress Note: still with harsh cough intermittently refusing meds prednisone and ceftin today ere refused, she took her zithromax Vital Signs Period Temp Pulse Resp BP Sys/Medeiros Pulse Ox Last 24 Hr 97.5 F-98.8 F 90-122 20-22 128-155/61-86 92-98 cor-rrr lungs scattered rhonchi abd soft,nt ext no edema CBC, BMP 05/25/18 05:30 05/26/18 06:40 cxray ?atelectasis right base Current Medications Acetaminophen (Tylenol -) 650 mg PO Q6H PRN PRN Reason: FEVER Albuterol Sulfate (Ventolin 0.083% Nebulizer Soln -) 1 amp NEB ONCE PRN PRN Reason: WHEEZING Last Admin: 05/24/18 09:53 Dose: 1 amp Albuterol/Ipratropium (Duoneb -) 1 amp NEB Q4H PRN PRN Reason: SHORTNESS OF BREATH Last Admin: 05/26/18 20:45 Dose: 1 amp Alprazolam (Xanax -) 0.25 mg PO BID PRN PRN Reason: ANXIETY Last Admin: 05/28/18 00:09 Dose: 0.25 mg Amlodipine Besylate (Norvasc -) 5 mg PO DAILY [facility] Last Admin: 05/28/18 09:53 Dose: 5 mg Azithromycin (Zithromax -) 250 mg PO DAILY [facility] Last Admin: 05/28/18 09:53 Dose: 250 mg Cefuroxime Axetil (Ceftin -) 500 mg PO BID [facility] Last Admin: 05/28/18 09:59 Dose: Not Given Glimepiride (Amaryl -) 1 mg PO DAILY@0700 [facility] Last Admin: 05/28/18 06:00 Dose: Not Given Sodium Chloride (Normal Saline -) 1,000 mls @ 50 mls/hr IV ASDIR [facility] Last Admin: 05/28/18 09:59 Dose: Not Given Insulin Aspart (Novolog Vial Sliding Scale -) 1 vial SQ ACHS [facility]; Protocol Last Admin: 05/28/18 06:00 Dose: Not Given Losartan Potassium (Cozaar -) 25 mg PO DAILY [facility] Last Admin: 05/28/18 09:53 Dose: 25 mg Metformin HCl (Glucophage -) 500 mg PO BID@0700,1630 [facility] Last Admin: 05/28/18 06:00 Dose: Not Given Pantoprazole Sodium (Protonix -) 40 mg PO DAILY [facility] Last Admin: 05/28/18 09:53 Dose: 40 mg Prednisone (Deltasone -) 30 mg PO DAILY [facility] Last Admin: 05/28/18 09:59 Dose: Not Given Zolpidem Tartrate (Ambien -) 5 mg PO HS PRN PRN Reason: INSOMNIA Last Admin: 05/28/18 00:09 Dose: 5 mg a/p pneumonia/bronchitis repeat cxray noted po ceftin/zithromax-day # 5 antibiotics no iv access thiago resolved swollen wrist- improving ROM, swelling resolved, imaging no collection- secondary to extravasation- resolved metastatic lung ca s/p chemo urged her to take her meds Problem List - Problems (1) Chills (without fever) Code(s): R68.83 - CHILLS (WITHOUT FEVER) (2) Pain and swelling of left wrist Code(s): M25.532 - PAIN IN LEFT WRIST; M25.432 - EFFUSION, LEFT WRIST (3) Stage 4 lung cancer Code(s): C34.90 - MALIGNANT NEOPLASM OF UNSP PART OF UNSP BRONCHUS OR LUNG (4) THIAGO (acute kidney injury) Code(s): N17.9 - ACUTE KIDNEY FAILURE, UNSPECIFIED (5) Rheumatoid arthritis Code(s): M06.9 - RHEUMATOID ARTHRITIS, UNSPECIFIED
--- NOTE | 2018-05-28 10:49 | PN ---
Progress Note, Physician History of Present Illness: pulmonary alert,less dyspneic,+ congested cough - Current Medication List Current Medications: Active Medications Acetaminophen (Tylenol -) 650 mg PO Q6H PRN PRN Reason: FEVER Albuterol Sulfate (Ventolin 0.083% Nebulizer Soln -) 1 amp NEB ONCE PRN PRN Reason: WHEEZING Last Admin: 05/24/18 09:53 Dose: 1 amp Albuterol/Ipratropium (Duoneb -) 1 amp NEB Q4H PRN PRN Reason: SHORTNESS OF BREATH Last Admin: 05/26/18 20:45 Dose: 1 amp Alprazolam (Xanax -) 0.25 mg PO BID PRN PRN Reason: ANXIETY Last Admin: 05/28/18 00:09 Dose: 0.25 mg Amlodipine Besylate (Norvasc -) 5 mg PO DAILY [facility] Last Admin: 05/28/18 09:53 Dose: 5 mg Azithromycin (Zithromax -) 250 mg PO DAILY [facility] Last Admin: 05/28/18 09:53 Dose: 250 mg Cefuroxime Axetil (Ceftin -) 500 mg PO BID [facility] Last Admin: 05/28/18 09:59 Dose: Not Given Glimepiride (Amaryl -) 1 mg PO DAILY@0700 [facility] Last Admin: 05/28/18 06:00 Dose: Not Given Guaifenesin (Mucinex -) 600 mg PO BID [facility] Sodium Chloride (Normal Saline -) 1,000 mls @ 50 mls/hr IV ASDIR [facility] Last Admin: 05/28/18 09:59 Dose: Not Given Insulin Aspart (Novolog Vial Sliding Scale -) 1 vial SQ ACHS [facility]; Protocol Last Admin: 05/28/18 06:00 Dose: Not Given Losartan Potassium (Cozaar -) 25 mg PO DAILY [facility] Last Admin: 05/28/18 09:53 Dose: 25 mg Metformin HCl (Glucophage -) 500 mg PO BID@0700,1630 [facility] Last Admin: 05/28/18 06:00 Dose: Not Given Pantoprazole Sodium (Protonix -) 40 mg PO DAILY [facility] Last Admin: 05/28/18 09:53 Dose: 40 mg Prednisone (Deltasone -) 30 mg PO DAILY [facility] Last Admin: 05/28/18 09:59 Dose: Not Given Zolpidem Tartrate (Ambien -) 5 mg PO HS PRN PRN Reason: INSOMNIA Last Admin: 05/28/18 00:09 Dose: 5 mg - Objective Vital Signs: Vital Signs Temperature 98.2 F 05/28/18 08:45 Pulse Rate 122 H 05/28/18 10:09 Respiratory Rate 22 H 05/28/18 08:45 Blood Pressure 128/70 05/28/18 08:45 O2 Sat by Pulse Oximetry (%) 92 L 05/28/18 10:09 Constitutional: Yes: Well Nourished, Calm Eyes: Yes: WNL HENT: Yes: WNL Neck: Yes: WNL Cardiovascular: Yes: Regular Rate and Rhythm, S1, S2 Respiratory: Yes: Rhonchi (few rhonchi) Gastrointestinal: Yes: Normal Bowel Sounds, Soft Extremities: Yes: WNL Edema: No Labs: CBC, BMP Problem List - Problems (1) Chills (without fever) Code(s): R68.83 - CHILLS (WITHOUT FEVER) (2) SCC (squamous cell carcinoma of lung) Code(s): C34.90 - MALIGNANT NEOPLASM OF UNSP PART OF UNSP BRONCHUS OR LUNG (3) Stage 4 lung cancer Code(s): C34.90 - MALIGNANT NEOPLASM OF UNSP PART OF UNSP BRONCHUS OR LUNG (4) Cellulitis of left hand Code(s): L03.114 - CELLULITIS OF LEFT UPPER LIMB (5) Fever Code(s): R50.9 - FEVER, UNSPECIFIED (6) Pulmonary infiltrate Code(s): R91.8 - OTHER NONSPECIFIC ABNORMAL FINDING OF LUNG FIELD (7) Rheumatoid arthritis Code(s): M06.9 - RHEUMATOID ARTHRITIS, UNSPECIFIED (8) Sepsis Code(s): A41.9 - SEPSIS, UNSPECIFIED ORGANISM Qualifiers: Sepsis type: sepsis due to unspecified organism Qualified Code(s): A41.9 - Sepsis, unspecified organism Assessment/Plan A/P r/o Pneumonia Metastatic Lung Cancer COPD Rheumatoid Arthritis Anemia - antibiotics per ID - inhaled bronchodilators - O2 as needed - prednisone - DVT prophylaxis DR KERR
[2018-05-28] MEDS: guaiFENesin 600 MG TABLET.ER (FP) PO SCH ×2 (11:23→22:03)
--- NOTE | 2018-05-28 15:27 | PN ---
Progress Note (short form) - Note Progress Note: Patient awaiting port placement Please optimize patient for port placement. Dr Chandler is available to place port on 05/31 Will follow.
--- NOTE | 2018-05-28 15:44 | PN ---
Progress Note, Physician Chief Complaint: pateint seen nad examiend refusing ceftin to get chemoport placed in AM - Current Medication List Current Medications: Active Medications Acetaminophen (Tylenol -) 650 mg PO Q6H PRN PRN Reason: FEVER Albuterol Sulfate (Ventolin 0.083% Nebulizer Soln -) 1 amp NEB ONCE PRN PRN Reason: WHEEZING Last Admin: 05/24/18 09:53 Dose: 1 amp Albuterol/Ipratropium (Duoneb -) 1 amp NEB Q4H PRN PRN Reason: SHORTNESS OF BREATH Last Admin: 05/26/18 20:45 Dose: 1 amp Alprazolam (Xanax -) 0.25 mg PO BID PRN PRN Reason: ANXIETY Last Admin: 05/28/18 00:09 Dose: 0.25 mg Amlodipine Besylate (Norvasc -) 5 mg PO DAILY [facility] Last Admin: 05/28/18 09:53 Dose: 5 mg Azithromycin (Zithromax -) 250 mg PO DAILY [facility] Last Admin: 05/28/18 09:53 Dose: 250 mg Cefuroxime Axetil (Ceftin -) 500 mg PO BID [facility] Last Admin: 05/28/18 09:59 Dose: Not Given Glimepiride (Amaryl -) 1 mg PO DAILY@0700 [facility] Last Admin: 05/28/18 06:00 Dose: Not Given Guaifenesin (Mucinex -) 600 mg PO BID [facility] Last Admin: 05/28/18 11:23 Dose: 600 mg Sodium Chloride (Normal Saline -) 1,000 mls @ 50 mls/hr IV ASDIR [facility] Last Admin: 05/28/18 09:59 Dose: Not Given Insulin Aspart (Novolog Vial Sliding Scale -) 1 vial SQ ACHS [facility]; Protocol Last Admin: 05/28/18 11:26 Dose: Not Given Losartan Potassium (Cozaar -) 25 mg PO DAILY [facility] Last Admin: 05/28/18 09:53 Dose: 25 mg Metformin HCl (Glucophage -) 500 mg PO BID@0700,1630 [facility] Last Admin: 05/28/18 06:00 Dose: Not Given Pantoprazole Sodium (Protonix -) 40 mg PO DAILY [facility] Last Admin: 05/28/18 09:53 Dose: 40 mg Prednisone (Deltasone -) 30 mg PO DAILY [facility] Last Admin: 05/28/18 09:59 Dose: Not Given Zolpidem Tartrate (Ambien -) 5 mg PO HS PRN PRN Reason: INSOMNIA Last Admin: 05/28/18 00:09 Dose: 5 mg - Objective Vital Signs: Vital Signs Temperature 98.2 F 05/28/18 08:45 Pulse Rate 122 H 05/28/18 10:09 Respiratory Rate 22 H 05/28/18 08:45 Blood Pressure 128/70 05/28/18 08:45 O2 Sat by Pulse Oximetry (%) 92 L 05/28/18 10:09 Constitutional: Yes: Calm Cardiovascular: Yes: Regular Rate and Rhythm, S1, S2 Respiratory: Yes: CTA Bilaterally, On Nasal O2 Gastrointestinal: Yes: Normal Bowel Sounds, Soft Edema: No Neurological: Yes: Alert, Oriented Labs: CBC, BMP 05/25/18 05:30 05/26/18 06:40 INR, PTT INR 1.25 (0.83-1.09) H 05/23/18 10:35 Problem List - Problems (1) THIAGO (acute kidney injury) Assessment/Plan: ivf- creatininie now normal Code(s): N17.9 - ACUTE KIDNEY FAILURE, UNSPECIFIED (2) Pain and swelling of left wrist Assessment/Plan: ID on board iv rocephin change to po abx elevated lactic acid - repeat ordered now 2.1 to 1.5 ultrasound of wrist done - no mass or fluid seen Code(s): M25.532 - PAIN IN LEFT WRIST; M25.432 - EFFUSION, LEFT WRIST (3) SCC (squamous cell carcinoma of lung) Assessment/Plan: oncology is on board chemo port by vascular in AM NPO tonight cleared by pulm i spoke to dr Farah po levaquin 500mg po daily for 5 days blood cultures negative no aortic anerysum on CT scan done 05/16/18 Microbiology 05/27/18 12:30 Urine - Urine Clean Catch Urine Culture - Final NO GROWTH OBTAINED 05/25/18 11:00 Urine For Antigen Detection Legionella Antigen - Final 05/25/18 11:00 Urine For Antigen Detection Streptococcus pneumoniae Antigen (M - Final 05/25/18 10:00 Sputum - Expectorated Gram Stain - Final 05/25/18 10:00 Sputum - Expectorated Sputum Culture - Final NORMAL RESPIRATORY RIA 05/23/18 10:35 Blood - Peripheral Venous Blood Culture - Final NO GROWTH AFTER 5 DAYS INCUBATION 05/23/18 10:35 Blood - Peripheral Venous Blood Culture - Final NO GROWTH AFTER 5 DAYS INCUBATION Code(s): C34.90 - MALIGNANT NEOPLASM OF UNSP PART OF UNSP BRONCHUS OR LUNG (4) Rheumatoid arthritis Assessment/Plan: on prednisone ppi Code(s): M06.9 - RHEUMATOID ARTHRITIS, UNSPECIFIED
--- NOTE | 2018-05-28 16:02 | PN ---
Progress Note (short form) - Note Progress Note: got in touch in Dr Chandler he will do procedure at 3:00pm tmw NPO tonight Problem List - Problems (1) THIAGO (acute kidney injury) Code(s): N17.9 - ACUTE KIDNEY FAILURE, UNSPECIFIED (2) Pain and swelling of left wrist Code(s): M25.532 - PAIN IN LEFT WRIST; M25.432 - EFFUSION, LEFT WRIST (3) SCC (squamous cell carcinoma of lung) Code(s): C34.90 - MALIGNANT NEOPLASM OF UNSP PART OF UNSP BRONCHUS OR LUNG (4) Rheumatoid arthritis Code(s): M06.9 - RHEUMATOID ARTHRITIS, UNSPECIFIED
--- NOTE | 2018-05-28 17:44 | PN ---
Progress Note (short form) - Note Progress Note: Patient seen and examined feels better Last Vital Signs Temp Pulse Resp BP Pulse Ox 97.5 F L 103 H 22 H 147/70 96 05/26/18 08:49 05/26/18 08:49 05/26/18 09:00 05/26/18 08:49 05/26/18 09:00 Cor: RSR, No murmurs, No gallops Lungs: coarse breath sounds bilaterally Abd: Soft, Normal bowel sounds, No organomegaly Ext:No significant edema Left wrist --no erythema /tenderness Labs/Meds reviewed A/P SCC of lung with multiple pulmonary nodules Rheumatoid arthritis Gemzar infiltration dorsum left hand and wrist Anemia "Chills"- elevated lactic acid Generalized body aches/pains CT scan --progressive disease clinically iproved on antibiotics/steroids for port placement will need home oxygen
--- NOTE | 2018-05-28 20:13 | PN ---
Progress Note (short form) - Note Progress Note: VAscular Surgery Pt seen and examined. Will place port estrella afternoon. Pt is medically cleared. iWlfred Chandler DO
--- NOTE | 2018-05-29 00:37 | PN ---
Progress Note, Physician Chief Complaint: short of breath / anxious History of Present Illness: 73 y female,copd,lung cancer,steroid related hyperglycemia,found to have abnormal thyroid function testing,anxiety and feels restless,has recent weight loss, will need port cath placement - Current Medication List Current Medications: Active Medications Acetaminophen (Tylenol -) 650 mg PO Q6H PRN PRN Reason: FEVER Last Admin: 05/28/18 22:03 Dose: 650 mg Albuterol Sulfate (Ventolin 0.083% Nebulizer Soln -) 1 amp NEB ONCE PRN PRN Reason: WHEEZING Last Admin: 05/24/18 09:53 Dose: 1 amp Albuterol/Ipratropium (Duoneb -) 1 amp NEB Q4H PRN PRN Reason: SHORTNESS OF BREATH Last Admin: 05/26/18 20:45 Dose: 1 amp Alprazolam (Xanax -) 0.25 mg PO BID PRN PRN Reason: ANXIETY Last Admin: 05/28/18 23:15 Dose: 0.25 mg Amlodipine Besylate (Norvasc -) 5 mg PO DAILY [facility] Last Admin: 05/28/18 09:53 Dose: 5 mg Glimepiride (Amaryl -) 1 mg PO DAILY@0700 [facility] Last Admin: 05/28/18 06:00 Dose: Not Given Guaifenesin (Mucinex -) 600 mg PO BID [facility] Last Admin: 05/28/18 22:03 Dose: 600 mg Sodium Chloride (Normal Saline -) 1,000 mls @ 50 mls/hr IV ASDIR [facility] Last Admin: 05/28/18 09:59 Dose: Not Given Insulin Aspart (Novolog Vial Sliding Scale -) 1 vial SQ ACHS [facility]; Protocol Last Admin: 05/28/18 22:00 Dose: Not Given Levofloxacin (Levaquin -) 500 mg PO DAILY [facility] Losartan Potassium (Cozaar -) 25 mg PO DAILY [facility] Last Admin: 05/28/18 09:53 Dose: 25 mg Metformin HCl (Glucophage -) 500 mg PO BID@0700,1630 [facility] Last Admin: 05/28/18 17:31 Dose: Not Given Pantoprazole Sodium (Protonix -) 40 mg PO DAILY [facility] Last Admin: 05/28/18 09:53 Dose: 40 mg Prednisone (Deltasone -) 30 mg PO DAILY [facility] Last Admin: 05/28/18 09:59 Dose: Not Given Zolpidem Tartrate (Ambien -) 5 mg PO HS PRN PRN Reason: INSOMNIA Last Admin: 05/28/18 23:15 Dose: 5 mg - Objective Vital Signs: Vital Signs Temperature 98.4 F 05/28/18 18:00 Pulse Rate 110 H 05/28/18 18:00 Respiratory Rate 20 05/28/18 20:10 Blood Pressure 141/63 05/28/18 20:10 O2 Sat by Pulse Oximetry (%) 92 L 05/28/18 21:00 Constitutional: Yes: Anxious Eyes: Yes: EOM Intact HENT: Yes: Normocephalic Neck: Yes: Lymphadenopathy Cardiovascular: Yes: Tachycardia Respiratory: Yes: SOB, Tachypnea Gastrointestinal: Yes: Normal Bowel Sounds ...Rectal Exam: Yes: Deferred Musculoskeletal: Yes: Muscle Weakness Extremities: Yes: WNL Neurological: Yes: Alert, Oriented Labs: CBC, BMP 05/25/18 05:30 05/26/18 06:40 INR, PTT INR 1.25 (0.83-1.09) H 05/23/18 10:35 Problem List - Problems (1) Thyroiditis Code(s): E06.9 - THYROIDITIS, UNSPECIFIED (2) Diabetes Code(s): E11.9 - TYPE 2 DIABETES MELLITUS WITHOUT COMPLICATIONS (3) SCC (squamous cell carcinoma of lung) Code(s): C34.90 - MALIGNANT NEOPLASM OF UNSP PART OF UNSP BRONCHUS OR LUNG (4) Stage 4 lung cancer Code(s): C34.90 - MALIGNANT NEOPLASM OF UNSP PART OF UNSP BRONCHUS OR LUNG Assessment/Plan Current Active Problems THIAGO (acute kidney injury) (Acute) Chills (without fever) (Acute) Diabetes (Acute) Pain and swelling of left wrist (Acute) SCC (squamous cell carcinoma of lung) (Acute) Stage 4 lung cancer (Acute) thyroiditis /hyperthyroid clinically Laboratory Results - last 24 hr 05/27/18 05/28/18 05/28/18 13:00 05:33 11:25 POC Glucometer 153 204 Thyroid Peroxidase Ab 11 05/28/18 17:29 POC Glucometer 118 Thyroid Peroxidase Ab Laboratory Tests 05/27/18 05/27/18 05/27/18 13:00 17:00 22:13 POC Glucometer 315 282 Thyroid Peroxidase Ab 11 05/28/18 05/28/18 05/28/18 05:33 11:25 17:29 POC Glucometer 153 204 118 Thyroid Peroxidase Ab plan: cardiology consult methimazole 10mg bid bgm qid novolog scale
[2018-05-29] MEDS: GLIMEPIRIDE 1 MG TABLET (FP) PO SCH (06:15)
[2018-05-29] MEDS: metFORMIN HCL 500 MG TABLET (FP) PO SCH ×2 (06:16→17:06)
[2018-05-29] MEDS: INSULIN SLIDING SCALE (NOVOLOG) 1 VIAL SQ SCH ×4 (06:16→22:20)
[2018-05-29 06:22] LABS: BASO % 0.5 % (0-2.0); EOS % 1.3 % (0-4.5); HEMATOCRIT 23.5 % (32.4-45.2); HEMOGLOBIN 10.3 GM/dL (10.7-15.3); LYMPH % 11.1 % (8-40); MEAN CELL VOLUME 100.3 fl (80-96); NEUT % 80.1 % (42.8-82.8); RBC 2.34 M/mm3 (3.60-5.2); WHITE BLOOD COUNT 7.4 K/mm3 (4.0-10.0)
[2018-05-29 06:33] LABS: MCH 44.1 pg (25.7-33.7)
[2018-05-29 06:43] LABS: ALBUMIN 2.9 g/dl (3.4-5.0); ALK PHOS 85 U/L (45-117); ANION GAP 8 MMOL/L (8-16); BILIRUBIN,TOTAL 1.2 mg/dL (0.2-1); BLOOD UREA NITROGEN 18 mg/dL (7-18); CALCIUM 9.1 mg/dL (8.5-10.1); CHLORIDE 101 mmol/L (98-107); CO2 30 mmol/L (21-32); CREATININE 1.1 mg/dL (0.55-1.3); GLUCOSE,RANDOM 128 mg/dL (74-106); POTASSIUM 3.7 mmol/L (3.5-5.1); SGOT/AST 25 U/L (15-37); SGPT/ALT 26 U/L (13-61); SODIUM 139 mmol/L (136-145); TOT PROT 6.8 g/dl (6.4-8.2)
[2018-05-29] MEDS: PANTOPRAZOLE 40 MG TABLET (FP) PO SCH (09:20)
[2018-05-29] MEDS: predniSONE 10 MG TABLET (UD) PO SCH (09:20)
[2018-05-29] MEDS: METHIMAZOLE 10 MG TABLET (FP) PO SCH ×2 (09:20→22:19)
[2018-05-29] MEDS: LOSARTAN POTASSIUM 25 MG TABLET PO SCH (09:20)
[2018-05-29] MEDS: amLODIPine BESYLATE 5 MG TABLET (FP) PO SCH (09:20)
[2018-05-29] MEDS: guaiFENesin 600 MG TABLET.ER (FP) PO SCH ×2 (09:20→22:19)
--- NOTE | 2018-05-29 10:03 | PN ---
Progress Note, Physician - Current Medication List Current Medications: Active Medications Acetaminophen (Tylenol -) 650 mg PO Q6H PRN PRN Reason: FEVER Last Admin: 05/28/18 22:03 Dose: 650 mg Albuterol Sulfate (Ventolin 0.083% Nebulizer Soln -) 1 amp NEB ONCE PRN PRN Reason: WHEEZING Last Admin: 05/24/18 09:53 Dose: 1 amp Albuterol/Ipratropium (Duoneb -) 1 amp NEB Q4H PRN PRN Reason: SHORTNESS OF BREATH Last Admin: 05/26/18 20:45 Dose: 1 amp Alprazolam (Xanax -) 0.25 mg PO BID PRN PRN Reason: ANXIETY Last Admin: 05/28/18 23:15 Dose: 0.25 mg Amlodipine Besylate (Norvasc -) 5 mg PO DAILY [facility] Last Admin: 05/29/18 09:20 Dose: 5 mg Glimepiride (Amaryl -) 1 mg PO DAILY@0700 [facility] Last Admin: 05/29/18 06:15 Dose: Not Given Guaifenesin (Mucinex -) 600 mg PO BID [facility] Last Admin: 05/29/18 09:20 Dose: 600 mg Sodium Chloride (Normal Saline -) 1,000 mls @ 50 mls/hr IV ASDIR [facility] Last Admin: 05/28/18 09:59 Dose: Not Given Insulin Aspart (Novolog Vial Sliding Scale -) 1 vial SQ ACHS [facility]; Protocol Last Admin: 05/29/18 06:16 Dose: Not Given Levofloxacin (Levaquin -) 500 mg PO DAILY [facility] Last Admin: 05/29/18 09:20 Dose: 500 mg Losartan Potassium (Cozaar -) 25 mg PO DAILY [facility] Last Admin: 05/29/18 09:20 Dose: 25 mg Metformin HCl (Glucophage -) 500 mg PO BID@0700,1630 [facility] Last Admin: 05/29/18 06:16 Dose: Not Given Methimazole (Tapazole -) 10 mg PO BID [facility] Last Admin: 05/29/18 09:20 Dose: 10 mg Pantoprazole Sodium (Protonix -) 40 mg PO DAILY [facility] Last Admin: 05/29/18 09:20 Dose: 40 mg Prednisone (Deltasone -) 30 mg PO DAILY [facility] Last Admin: 05/29/18 09:20 Dose: Not Given Zolpidem Tartrate (Ambien -) 5 mg PO HS PRN PRN Reason: INSOMNIA Last Admin: 05/28/18 23:15 Dose: 5 mg - Objective Vital Signs: Vital Signs Temperature 99.8 F H 05/29/18 08:54 Pulse Rate 118 H 05/29/18 08:54 Respiratory Rate 22 H 05/29/18 08:54 Blood Pressure 144/70 05/29/18 08:54 O2 Sat by Pulse Oximetry (%) 92 L 05/28/18 21:00 Cardiovascular: Yes: S1, S2 Respiratory: Yes: Regular, CTA Bilaterally Gastrointestinal: Yes: Normal Bowel Sounds, Soft Musculoskeletal: Yes: Joint Swelling (LEFT WRIST--NO ERYTHEMA NON TENDER) Labs: CBC, BMP 05/29/18 05:30 05/29/18 05:30 INR, PTT INR 1.25 (0.83-1.09) H 05/23/18 10:35 Assessment/Plan - Problems (1) THIAGO (acute kidney injury) Assessment/Plan: ivf- creatininie now normal Code(s): N17.9 - ACUTE KIDNEY FAILURE, UNSPECIFIED (2) Pain and swelling of left wrist Assessment/Plan: ID on board iv rocephin change to po abx elevated lactic acid - repeat ordered now 2.1 to 1.5 ultrasound of wrist done - no mass or fluid seen Code(s): M25.532 - PAIN IN LEFT WRIST; M25.432 - EFFUSION, LEFT WRIST (3) SCC (squamous cell carcinoma of lung) Assessment/Plan: oncology is on board chemo port by vascular TODAY NPO cleared by pulm po levaquin 500mg po daily for 5 days blood cultures negative no aortic anerysum on CT scan done 05/16/18 Microbiology 05/27/18 12:30 Urine - Urine Clean Catch Urine Culture - Final NO GROWTH OBTAINED 05/25/18 11:00 Urine For Antigen Detection Legionella Antigen - Final 05/25/18 11:00 Urine For Antigen Detection Streptococcus pneumoniae Antigen (M - Final 05/25/18 10:00 Sputum - Expectorated Gram Stain - Final 05/25/18 10:00 Sputum - Expectorated Sputum Culture - Final NORMAL RESPIRATORY RIA 05/23/18 10:35 Blood - Peripheral Venous Blood Culture - Final NO GROWTH AFTER 5 DAYS INCUBATION 05/23/18 10:35 Blood - Peripheral Venous Blood Culture - Final NO GROWTH AFTER 5 DAYS INCUBATION Code(s): C34.90 - MALIGNANT NEOPLASM OF UNSP PART OF UNSP BRONCHUS OR LUNG (4) Rheumatoid arthritis Assessment/Plan: on prednisone ppi Code(s): M06.9 - RHEUMATOID ARTHRITIS, UNSPECIFIED
--- NOTE | 2018-05-29 10:21 | CON.CARD ---
Consult Consult Specialty:: Cardiology Reason for Consultation:: Preop cardiac eval - History of Present Illness History of Present Illness: 73 F with lung cancer, post taxol and carboplatin chemotherapy, DM was admitted with chills and is treated for COPD and possibly PNA. She is being advised to have a chemoport placed. Reports no previous CHF or SC history. Able to ambulate 2-3 blocks limited by SOB. An echocardiogram in 2016 showed moderate LV dysfunction. No CP, orthopnea, edema, palpitations. - History Source History Provided By: Patient, Medical Record Limitations to Obtaining History: No Limitations - Past Medical History Cardio/Vascular: Yes: HTN Pulmonary: Yes: Other (Lung cancer --stage IIB . squamous cell) ...: No Rheumatology: Yes: Other (rheumatoid arthritis) - Alcohol/Substance Use Hx Alcohol Use: Yes (SOCIAL) - Smoking History Smoking history: Former smoker Have you smoked in the past 12 months: Yes Aproximately how many cigarettes per day: 10 If you are a former smoker, when did you quit?: 12/16/14 - Social History ADL: Independent History of Recent Travel: No Home Medications - Allergies Allergies/Adverse Reactions: Allergies Allergy/AdvReac Type Severity Reaction Status Date / Time aspirin AdvReac Mild Verified 05/23/18 11:15 - Home Medications Home Medications: Ambulatory Orders Alprazolam [Xanax] 0.5 mg PO HS 03/30/15 Zolpidem Tartrate [Ambien] 10 mg PO HS 03/30/15 Amlodipine Besylate [Norvasc -] 5 mg PO DAILY 11/14/17 Prednisone 5 mg PO DAILY 11/14/17 Cholecalciferol (Vitamin D3) [Vitamin D3] 1,000 unit PO DAILY 01/16/18 Losartan Potassium 25 mg PO DAILY 05/21/18 Review of Systems - Review of Systems Constitutional: reports: No Symptoms. denies: Chills, Diaphoresis, Fever, Lethargy Eyes: reports: No Symptoms HENT: reports: No Symptoms Neck: reports: No Symptoms Cardiovascular: reports: Shortness of Breath. denies: Chest Pain, Edema, Palpitations Respiratory: reports: Cough, SOB on Exertion Gastrointestinal: reports: No Symptoms Genitourinary: reports: No Symptoms Breasts: reports: No Symptoms Reported Vital Signs: Vital Signs Temperature 99.8 F H 05/29/18 08:54 Pulse Rate 118 H 05/29/18 08:54 Respiratory Rate 22 H 05/29/18 08:54 Blood Pressure 144/70 05/29/18 08:54 O2 Sat by Pulse Oximetry (%) 92 L 05/28/18 21:00 Constitutional: Yes: Well Nourished, No Distress, Calm Eyes: Yes: Conjunctiva Clear, EOM Intact HENT: Yes: Atraumatic, Normocephalic Neck: Yes: Supple, Trachea Midline Respiratory: Yes: Regular, CTA Bilaterally Gastrointestinal: Yes: Normal Bowel Sounds, Soft Cardiovascular: Yes: Regular Rate and Rhythm JVD: No Carotid Bruit: No PMI: Non-Displaced Heart Sounds: Yes: S1, S2 Murmur: No: Systolic Murmur, Diastolic Murmur - Other Data Labs, Other Data: CBC, BMP 05/29/18 05:30 05/29/18 05:30 INR, PTT INR 1.25 (0.83-1.09) H 05/23/18 10:35 NSR nl [place] and interval. No ST T changes. Imaging - Results Chest X-ray: Report Reviewed Problem List - Problems (1) Preop cardiovascular exam Code(s): Z01.810 - ENCOUNTER FOR PREPROCEDURAL CARDIOVASCULAR EXAMINATION Assessment/Plan 73 F with lung cancer, post taxol and carboplatin chemotherapy, DM was admitted with chills and is treated for COPD and possibly PNA. She is being advised to have a chemoport placed. Reports no previous CHF or SC history. Able to ambulate 2-3 blocks limited by SOB. An echocardiogram in 2016 showed moderate LV dysfunction. No CP, orthopnea, edema, palpitations. Patient has no cardial complaints. A prior echocardiogram few years ago showed LV dysfunctioon, however she has no heart failure or symptoms to suggest active coronary ischemia. Patient is at moderate risk for surgery. No further testing is suggested.
--- NOTE | 2018-05-29 10:29 | PN ---
Progress Note, Physician History of Present Illness: pulmonary alert,not feeling well,weak,more sob today,+ cough - Current Medication List Current Medications: Active Medications Acetaminophen (Tylenol -) 650 mg PO Q6H PRN PRN Reason: FEVER Last Admin: 05/28/18 22:03 Dose: 650 mg Albuterol Sulfate (Ventolin 0.083% Nebulizer Soln -) 1 amp NEB ONCE PRN PRN Reason: WHEEZING Last Admin: 05/24/18 09:53 Dose: 1 amp Albuterol/Ipratropium (Duoneb -) 1 amp NEB Q4H PRN PRN Reason: SHORTNESS OF BREATH Last Admin: 05/26/18 20:45 Dose: 1 amp Alprazolam (Xanax -) 0.25 mg PO BID PRN PRN Reason: ANXIETY Last Admin: 05/28/18 23:15 Dose: 0.25 mg Amlodipine Besylate (Norvasc -) 5 mg PO DAILY [facility] Last Admin: 05/29/18 09:20 Dose: 5 mg Glimepiride (Amaryl -) 1 mg PO DAILY@0700 [facility] Last Admin: 05/29/18 06:15 Dose: Not Given Guaifenesin (Mucinex -) 600 mg PO BID [facility] Last Admin: 05/29/18 09:20 Dose: 600 mg Sodium Chloride (Normal Saline -) 1,000 mls @ 50 mls/hr IV ASDIR [facility] Last Admin: 05/28/18 09:59 Dose: Not Given Insulin Aspart (Novolog Vial Sliding Scale -) 1 vial SQ ACHS [facility]; Protocol Last Admin: 05/29/18 06:16 Dose: Not Given Levofloxacin (Levaquin -) 500 mg PO DAILY [facility] Last Admin: 05/29/18 09:20 Dose: 500 mg Losartan Potassium (Cozaar -) 25 mg PO DAILY [facility] Last Admin: 05/29/18 09:20 Dose: 25 mg Metformin HCl (Glucophage -) 500 mg PO BID@0700,1630 [facility] Last Admin: 05/29/18 06:16 Dose: Not Given Methimazole (Tapazole -) 10 mg PO BID [facility] Last Admin: 05/29/18 09:20 Dose: 10 mg Pantoprazole Sodium (Protonix -) 40 mg PO DAILY [facility] Last Admin: 05/29/18 09:20 Dose: 40 mg Prednisone (Deltasone -) 30 mg PO DAILY [facility] Last Admin: 05/29/18 09:20 Dose: Not Given Zolpidem Tartrate (Ambien -) 5 mg PO HS PRN PRN Reason: INSOMNIA Last Admin: 05/28/18 23:15 Dose: 5 mg - Objective Vital Signs: Vital Signs Temperature 99.8 F H 05/29/18 08:54 Pulse Rate 118 H 05/29/18 08:54 Respiratory Rate 22 H 05/29/18 08:54 Blood Pressure 144/70 05/29/18 08:54 O2 Sat by Pulse Oximetry (%) 92 L 05/28/18 21:00 Constitutional: Yes: Well Nourished, Calm Eyes: Yes: WNL HENT: Yes: WNL Neck: Yes: WNL Cardiovascular: Yes: Regular Rate and Rhythm, S1, S2 Respiratory: Yes: Diminished, Rhonchi (few rhonchi) Gastrointestinal: Yes: Normal Bowel Sounds, Soft Extremities: Yes: WNL Edema: No Labs: CBC, BMP 05/29/18 05:30 05/29/18 05:30 INR, PTT INR 1.25 (0.83-1.09) H 05/23/18 10:35 Problem List - Problems (1) Chills (without fever) Code(s): R68.83 - CHILLS (WITHOUT FEVER) (2) SCC (squamous cell carcinoma of lung) Code(s): C34.90 - MALIGNANT NEOPLASM OF UNSP PART OF UNSP BRONCHUS OR LUNG (3) Stage 4 lung cancer Code(s): C34.90 - MALIGNANT NEOPLASM OF UNSP PART OF UNSP BRONCHUS OR LUNG (4) Cellulitis of left hand Code(s): L03.114 - CELLULITIS OF LEFT UPPER LIMB (5) Fever Code(s): R50.9 - FEVER, UNSPECIFIED (6) Pulmonary infiltrate Code(s): R91.8 - OTHER NONSPECIFIC ABNORMAL FINDING OF LUNG FIELD (7) Rheumatoid arthritis Code(s): M06.9 - RHEUMATOID ARTHRITIS, UNSPECIFIED (8) Sepsis Code(s): A41.9 - SEPSIS, UNSPECIFIED ORGANISM Qualifiers: Qualified Code(s): A41.9 - Sepsis, unspecified organism Assessment/Plan A/P r/o Pneumonia Metastatic Lung Cancer COPD Rheumatoid Arthritis Anemia - antibiotics per ID - inhaled bronchodilators - O2 as needed - medrol - DVT prophylaxis - cancel port placement for today DR KERR
[2018-05-29 10:39] LABS: ANISOCYTOSIS 2+; MACROCYTOSIS 0; PLATELET ESTIMATE NORMAL; TEAR DROP CELLS 1+
[2018-05-29] MEDS: methylPREDNISolone NA SUCC 40 MG/1 ML VIAL IVPUSH SCH ×2 (11:40→17:06)
[2018-05-29 14:21] LABS: MEAN PLT VOLUME 7.8 fl (7.5-11.1); PLATELET COUNT 412 K/MM3 (134-434)
[2018-05-29] MEDS: SODIUM CHLORIDE 1,000 ML IV SCH (16:49)
[2018-05-29 18:13] LABS: THYROID STIM IMMUNOGLOBULIN <0.10 IU/L (0.00-0.55)
--- NOTE | 2018-05-29 19:51 | PN ---
Progress Note (short form) - Note Progress Note: Patient seen and examined Feeling improved Still unable to ambulate any significant distance without tiredness, weakness , and SOB Last Vital Signs Temp Pulse Resp BP Pulse Ox 98.1 F 107 H 20 127/90 95 05/29/18 17:00 05/29/18 17:00 05/29/18 17:00 05/29/18 17:00 05/29/18 09:00 HEENT: GIUSEPPE, EOM Intact Cor: RSR, No murmurs, No gallops Lungs: Clear to P&A Abd: Soft, Normal bowel sounds, No organomegaly Left hand - less swelling CBC, BMP 05/29/18 05:30 05/29/18 05:30 Current Medications Generic Name Dose Route Start Last Admin Trade Name Freq PRN Reason Stop Dose Admin Acetaminophen 650 mg 05/24/18 20:54 05/28/18 22:03 Tylenol - PO 650 mg Q6H PRN Administration FEVER Albuterol Sulfate 1 amp 05/23/18 10:02 05/24/18 09:53 Ventolin 0.083% Nebulizer Soln - NEB 1 amp ONCE PRN Administration WHEEZING Albuterol/Ipratropium 1 amp 05/25/18 14:09 05/26/18 20:45 Duoneb - NEB 1 amp Q4H PRN Administration SHORTNESS OF BREATH Alprazolam 0.25 mg 05/24/18 09:37 05/28/18 23:15 Xanax - PO 0.25 mg BID PRN Administration ANXIETY Amlodipine Besylate 5 mg 05/24/18 10:00 05/29/18 09:20 Norvasc - PO 5 mg DAILY [facility] Administration Glimepiride 1 mg 05/27/18 07:00 05/29/18 06:15 Amaryl - PO Not Given DAILY@0700 [facility] Guaifenesin 600 mg 05/28/18 10:45 05/29/18 09:20 Mucinex - PO 600 mg BID [facility] Administration Sodium Chloride 1,000 mls @ 50 mls/hr 05/26/18 08:25 05/29/18 16:49 Normal Saline - IV Not Given ASDIR [facility] Insulin Aspart 1 vial 05/26/18 22:43 05/29/18 17:02 Novolog Vial Sliding Scale - SQ Not Given ACHS [facility] Protocol Levofloxacin 500 mg 05/29/18 10:00 05/29/18 09:20 Levaquin - PO 500 mg DAILY [facility] Administration Losartan Potassium 25 mg 05/24/18 10:00 05/29/18 09:20 Cozaar - PO 25 mg DAILY [facility] Administration Metformin HCl 500 mg 05/27/18 07:00 05/29/18 17:06 Glucophage - PO 500 mg BID@0700,1630 [facility] Administration Methimazole 10 mg 05/29/18 10:00 05/29/18 09:20 Tapazole - PO 10 mg BID [facility] Administration Methylprednisolone Sodium Succinate 40 mg 05/29/18 10:30 05/29/18 17:06 Solu-Medrol - IVPUSH 40 mg Q8H-IV [facility] Administration Pantoprazole Sodium 40 mg 05/24/18 10:00 05/29/18 09:20 Protonix - PO 40 mg DAILY [facility] Administration Zolpidem Tartrate 5 mg 05/23/18 15:50 05/28/18 23:15 Ambien - PO 5 mg HS PRN Administration INSOMNIA Impression: SCC Gemcitibine infiltration Hyperthyroidism DM R.A. Discordance with Hb/hct To repeat Continue with antibiotic therpay.
[2018-05-30] MEDS: ALPRAZolam 0.25 MG TABLET PO PRN ×2 (00:11→21:40)
[2018-05-30] MEDS: ZOLPIDEM TARTRATE 5 MG TABLET PO PRN ×2 (00:11→21:40)
[2018-05-30] MEDS: methylPREDNISolone NA SUCC 40 MG/1 ML VIAL IVPUSH SCH ×3 (02:11→21:40)
[2018-05-30] MEDS ORDERED: PT OWN MED DRAWER 7, Y5N ONE (05:47)
[2018-05-30] MEDS: GLIMEPIRIDE 1 MG TABLET (FP) PO SCH (06:15)
[2018-05-30] MEDS: metFORMIN HCL 500 MG TABLET (FP) PO SCH ×2 (06:15→17:32)
[2018-05-30] MEDS: INSULIN SLIDING SCALE (NOVOLOG) 1 VIAL SQ SCH ×4 (06:21→21:48)
[2018-05-30 06:32] LABS: BASO % 0.2 % (0-2.0); EOS % 0.1 % (0-4.5); HEMOGLOBIN 9.6 GM/dL (10.7-15.3); LYMPH % 11.6 % (8-40); MCHC 35.7 g/dl (32.0-36.0); MEAN CELL VOLUME 95.3 fl (80-96); MEAN PLT VOLUME 7.9 fl (7.5-11.1); MONO % 3.7 % (3.8-10.2); NEUT % 84.4 % (42.8-82.8); PLATELET COUNT 378 K/MM3 (134-434); RBC 2.83 M/mm3 (3.60-5.2); RDW 21.8 % (11.6-15.6); WHITE BLOOD COUNT 8.1 K/mm3 (4.0-10.0)
[2018-05-30 07:00] LABS: ALBUMIN 2.8 g/dl (3.4-5.0); ALK PHOS 83 U/L (45-117); ANION GAP 7 MMOL/L (8-16); BLOOD UREA NITROGEN 31 mg/dL (7-18); CHLORIDE 99 mmol/L (98-107); CO2 30 mmol/L (21-32); CREATININE 1.2 mg/dL (0.55-1.3); GLUCOSE,RANDOM 235 mg/dL (74-106); POTASSIUM 4.6 mmol/L (3.5-5.1); SGOT/AST 14 U/L (15-37); SGPT/ALT 24 U/L (13-61); SODIUM 136 mmol/L (136-145)
--- NOTE | 2018-05-30 07:50 | SPA.PREOP ---
- PRE-OP NOTE Dx: Lung CA Planned Procedure: Port Placement Surgeon: Wilfred Chandler Last Vital Signs Temp Pulse Resp BP Pulse Ox 97.4 F L 85 20 122/64 98 05/30/18 06:00 05/30/18 06:00 05/30/18 06:00 05/30/18 06:00 05/29/18 21:00 Lab Results WBC 8.1 K/mm3 (4.0-10.0) 05/30/18 05:30 RBC 2.83 M/mm3 (3.60-5.2) L 05/30/18 05:30 Hgb 9.6 GM/dL (10.7-15.3) L 05/30/18 05:30 Hct 27.0 % (32.4-45.2) L 05/30/18 05:30 MCV 95.3 fl (80-96) 05/30/18 05:30 MCHC 35.7 g/dl (32.0-36.0) 05/30/18 05:30 RDW 21.8 % (11.6-15.6) H 05/30/18 05:30 Plt Count 378 K/MM3 (134-434) 05/30/18 05:30 Sodium 136 mmol/L (136-145) 05/30/18 05:30 Potassium 4.6 mmol/L (3.5-5.1) 05/30/18 05:30 Chloride 99 mmol/L (98-107) 05/30/18 05:30 Carbon Dioxide 30 mmol/L (21-32) 05/30/18 05:30 Anion Gap 7 MMOL/L (8-16) L 05/30/18 05:30 BUN 31 mg/dL (7-18) H 05/30/18 05:30 Creatinine 1.2 mg/dL (0.55-1.3) 05/30/18 05:30 Random Glucose 235 mg/dL (74-106) H 05/30/18 05:30 Calcium 9.0 mg/dL (8.5-10.1) 05/30/18 05:30 INR 1.25 (0.83-1.09) H 05/23/18 10:35 - ASSESSMENT/PLAN 1. Make NPO after midnight except po meds 2. GI/DVT PPX 3. Medical optimization / clearance 4. Consent to be obtained by surgeon after risks, benefits and alternatives discussed with patient and or Health Care Proxy. Problem List - Problems (1) Stage 4 lung cancer Code(s): C34.90 - MALIGNANT NEOPLASM OF UNSP PART OF UNSP BRONCHUS OR LUNG (2) HTN (hypertension) Code(s): I10 - ESSENTIAL (PRIMARY) HYPERTENSION Visit type - Case Type Case Type: ED Admission - New patient This patient is new to me today: Yes Date on this admission: 05/30/18
[2018-05-30] MEDS: PANTOPRAZOLE 40 MG TABLET (FP) PO SCH (09:54)
[2018-05-30] MEDS: guaiFENesin 600 MG TABLET.ER (FP) PO SCH ×2 (09:54→21:39)
[2018-05-30] MEDS: LOSARTAN POTASSIUM 25 MG TABLET PO SCH (09:54)
[2018-05-30] MEDS: amLODIPine BESYLATE 5 MG TABLET (FP) PO SCH (09:54)
[2018-05-30] MEDS: METHIMAZOLE 10 MG TABLET (FP) PO SCH ×2 (09:55→21:40)
--- NOTE | 2018-05-30 10:56 | PN ---
Progress Note, Physician History of Present Illness: PULMONARY ALERT,NO DISTRESS,-CP,-SOB - Current Medication List Current Medications: Active Medications Acetaminophen (Tylenol -) 650 mg PO Q6H PRN PRN Reason: FEVER Last Admin: 05/28/18 22:03 Dose: 650 mg Albuterol Sulfate (Ventolin 0.083% Nebulizer Soln -) 1 amp NEB ONCE PRN PRN Reason: WHEEZING Last Admin: 05/24/18 09:53 Dose: 1 amp Albuterol/Ipratropium (Duoneb -) 1 amp NEB Q4H PRN PRN Reason: SHORTNESS OF BREATH Last Admin: 05/26/18 20:45 Dose: 1 amp Alprazolam (Xanax -) 0.25 mg PO BID PRN PRN Reason: ANXIETY Last Admin: 05/30/18 00:11 Dose: 0.25 mg Amlodipine Besylate (Norvasc -) 5 mg PO DAILY [facility] Last Admin: 05/30/18 09:54 Dose: 5 mg Glimepiride (Amaryl -) 1 mg PO DAILY@0700 [facility] Last Admin: 05/30/18 06:15 Dose: 1 mg Guaifenesin (Mucinex -) 600 mg PO BID [facility] Last Admin: 05/30/18 09:54 Dose: 600 mg Sodium Chloride (Normal Saline -) 1,000 mls @ 50 mls/hr IV ASDIR [facility] Last Admin: 05/29/18 16:49 Dose: Not Given Insulin Aspart (Novolog Vial Sliding Scale -) 1 vial SQ ACHS [facility]; Protocol Last Admin: 05/30/18 06:21 Dose: Not Given Levofloxacin (Levaquin -) 500 mg PO DAILY [facility] Last Admin: 05/30/18 09:54 Dose: 500 mg Losartan Potassium (Cozaar -) 25 mg PO DAILY [facility] Last Admin: 05/30/18 09:54 Dose: 25 mg Metformin HCl (Glucophage -) 500 mg PO BID@0700,1630 [facility] Last Admin: 05/30/18 06:15 Dose: 500 mg Methimazole (Tapazole -) 10 mg PO BID [facility] Last Admin: 05/30/18 09:55 Dose: 10 mg Methylprednisolone Sodium Succinate (Solu-Medrol -) 40 mg IVPUSH Q8H-IV [facility] Last Admin: 05/30/18 09:54 Dose: 40 mg Pantoprazole Sodium (Protonix -) 40 mg PO DAILY [facility] Last Admin: 05/30/18 09:54 Dose: 40 mg Zolpidem Tartrate (Ambien -) 5 mg PO HS PRN PRN Reason: INSOMNIA Last Admin: 05/30/18 00:11 Dose: 5 mg - Objective Vital Signs: Vital Signs Temperature 97.2 F L 05/30/18 09:00 Pulse Rate 98 H 05/30/18 09:00 Respiratory Rate 20 05/30/18 09:00 Blood Pressure 108/59 L 05/30/18 09:00 O2 Sat by Pulse Oximetry (%) 98 05/30/18 09:00 Constitutional: Yes: Well Nourished, Calm Eyes: Yes: WNL HENT: Yes: WNL Neck: Yes: WNL Cardiovascular: Yes: Regular Rate and Rhythm, S1, S2 Respiratory: Yes: Diminished Gastrointestinal: Yes: Normal Bowel Sounds, Soft Extremities: Yes: WNL Edema: No Labs: CBC, BMP 05/30/18 05:30 05/30/18 05:30 INR, PTT INR 1.25 (0.83-1.09) H 05/23/18 10:35 Problem List - Problems (1) Chills (without fever) Code(s): R68.83 - CHILLS (WITHOUT FEVER) (2) SCC (squamous cell carcinoma of lung) Code(s): C34.90 - MALIGNANT NEOPLASM OF UNSP PART OF UNSP BRONCHUS OR LUNG (3) Stage 4 lung cancer Code(s): C34.90 - MALIGNANT NEOPLASM OF UNSP PART OF UNSP BRONCHUS OR LUNG (4) Cellulitis of left hand Code(s): L03.114 - CELLULITIS OF LEFT UPPER LIMB (5) Fever Code(s): R50.9 - FEVER, UNSPECIFIED (6) Pulmonary infiltrate Code(s): R91.8 - OTHER NONSPECIFIC ABNORMAL FINDING OF LUNG FIELD (7) Rheumatoid arthritis Code(s): M06.9 - RHEUMATOID ARTHRITIS, UNSPECIFIED (8) Sepsis Code(s): A41.9 - SEPSIS, UNSPECIFIED ORGANISM Qualifiers: Sepsis type: sepsis due to unspecified organism Qualified Code(s): A41.9 - Sepsis, unspecified organism Assessment/Plan A/P r/o Pneumonia Metastatic Lung Cancer COPD Rheumatoid Arthritis Anemia - antibiotics per ID - inhaled bronchodilators - O2 as needed - medrol - DVT prophylaxis - no pulmonary contraindication for port placement DR KERR
[2018-05-30] MEDS ORDERED: methylPREDNISolone NA SUCC 40 MG/1 ML VIAL IVPUSH SCH (11:00)
[2018-05-30] MEDS: SODIUM CHLORIDE 1,000 ML IV SCH (13:17)
--- NOTE | 2018-05-30 15:39 | PN ---
Progress Note, Physician Chief Complaint: Metastatic Lung CA Anmia THIAGO History of Present Illness: Previous notes and events reviewed awake and alert NAD denies complaints of chest pain or SOB NPO after midnight for port placement tomorrow - Current Medication List Current Medications: Active Medications Acetaminophen (Tylenol -) 650 mg PO Q6H PRN PRN Reason: FEVER Last Admin: 05/28/18 22:03 Dose: 650 mg Albuterol Sulfate (Ventolin 0.083% Nebulizer Soln -) 1 amp NEB ONCE PRN PRN Reason: WHEEZING Last Admin: 05/24/18 09:53 Dose: 1 amp Alprazolam (Xanax -) 0.25 mg PO BID PRN PRN Reason: ANXIETY Last Admin: 05/30/18 00:11 Dose: 0.25 mg Amlodipine Besylate (Norvasc -) 5 mg PO DAILY [facility]S [facility] Last Admin: 05/30/18 09:54 Dose: 5 mg Glimepiride (Amaryl -) 1 mg PO DAILY@0700 [facility] 234 [facility]S [facility] Last Admin: 05/30/18 06:15 Dose: 1 mg Guaifenesin (Mucinex -) 600 mg PO BID [facility] 234 [facility]S [facility] Last Admin: 05/30/18 09:54 Dose: 600 mg Sodium Chloride (Normal Saline -) 1,000 mls @ 50 mls/hr IV ASDIR [facility]S [facility] 234 BEDS AT [facility] Last Admin: 05/30/18 13:17 Dose: Not Given Insulin Aspart (Novolog Vial Sliding Scale -) 1 vial SQ ACHS [facility] 234 BEDS [facility]; Protocol Last Admin: 05/30/18 13:15 Dose: Not Given Levofloxacin (Levaquin -) 500 mg PO DAILY [facility] 234 BEDS [facility] Last Admin: 05/30/18 09:54 Dose: 500 mg Losartan Potassium (Cozaar -) 25 mg PO DAILY [facility] 234 B[facility]S [facility] Last Admin: 05/30/18 09:54 Dose: 25 mg Metformin HCl (Glucophage -) 500 mg PO BID@0700,1630 [facility] 234 BEDS [facility] Last Admin: 05/30/18 06:15 Dose: 500 mg Methimazole (Tapazole -) 10 mg PO BID [facility] 234 BEDS [facility] Last Admin: 05/30/18 09:55 Dose: 10 mg Methylprednisolone Sodium Succinate (Solu-Medrol -) 40 mg IVPUSH BID [facility] 234 BEDS AT [facility] Pantoprazole Sodium (Protonix -) 40 mg PO DAILY [facility] 234 BEDS AT [facility] Last Admin: 05/30/18 09:54 Dose: 40 mg Zolpidem Tartrate (Ambien -) 5 mg PO HS PRN PRN Reason: INSOMNIA Last Admin: 05/30/18 00:11 Dose: 5 mg - Objective Vital Signs: Vital Signs Temperature 97.8 F 05/30/18 14:00 Pulse Rate 109 H 05/30/18 14:00 Respiratory Rate 20 05/30/18 09:00 Blood Pressure 116/60 05/30/18 14:00 O2 Sat by Pulse Oximetry (%) 98 05/30/18 09:00 Constitutional: Yes: No Distress, Calm Eyes: Yes: Conjunctiva Clear HENT: Yes: Atraumatic Cardiovascular: Yes: Regular Rate and Rhythm Respiratory: Yes: Regular, CTA Bilaterally Gastrointestinal: Yes: Normal Bowel Sounds, Soft Musculoskeletal: Yes: WNL Extremities: Yes: WNL Edema: No Neurological: Yes: Alert, Oriented Psychiatric: Yes: Alert, Oriented Labs: CBC, BMP 05/30/18 05:30 05/30/18 05:30 INR, PTT INR 1.25 (0.83-1.09) H 05/23/18 10:35 Problem List - Problems (1) Chills (without fever) Assessment/Plan: -ID on board -no leukocytosis -afebrile Code(s): R68.83 - CHILLS (WITHOUT FEVER) (2) Stage 4 lung cancer Assessment/Plan: -Oncology on board -pending port placement 05/31/18 -patient cleared from cardiology for procedure Code(s): C34.90 - MALIGNANT NEOPLASM OF UNSP PART OF UNSP BRONCHUS OR LUNG (3) HTN (hypertension) Assessment/Plan: -continue with Amlodipine and Losartan -low Na diet Code(s): I10 - ESSENTIAL (PRIMARY) HYPERTENSION (4) Sepsis Assessment/Plan: -ID on board -no leukocytosis -afebrile -LA 1.5 -IV hydration Code(s): A41.9 - SEPSIS, UNSPECIFIED ORGANISM Qualifiers: Sepsis type: sepsis due to unspecified organism Qualified Code(s): A41.9 - Sepsis, unspecified organism (5) Pain and swelling of left wrist Assessment/Plan: -pain management Code(s): M25.532 - PAIN IN LEFT WRIST; M25.432 - EFFUSION, LEFT WRIST (6) Rheumatoid arthritis Assessment/Plan: -continue prednisone Code(s): M06.9 - RHEUMATOID ARTHRITIS, UNSPECIFIED Assessment/Plan see problem list dvt ppx
[2018-05-31] MEDS: GLIMEPIRIDE 1 MG TABLET (FP) PO SCH (06:24)
[2018-05-31] MEDS: metFORMIN HCL 500 MG TABLET (FP) PO SCH ×2 (06:24→17:05)
[2018-05-31] MEDS: INSULIN SLIDING SCALE (NOVOLOG) 1 VIAL SQ SCH ×3 (06:25→21:39)
[2018-05-31 06:47] LABS: HEMATOCRIT 23.9 % (32.4-45.2); HEMOGLOBIN 9.1 GM/dL (10.7-15.3); MCH 36.2 pg (25.7-33.7); MEAN CELL VOLUME 95.2 fl (80-96); MEAN PLT VOLUME 8.2 fl (7.5-11.1); PLATELET COUNT 366 K/MM3 (134-434); RBC 2.51 M/mm3 (3.60-5.2); RDW 21.2 % (11.6-15.6); WHITE BLOOD COUNT 12.3 K/mm3 (4.0-10.0)
[2018-05-31 07:17] LABS: ALBUMIN 2.8 g/dl (3.4-5.0); ALK PHOS 71 U/L (45-117); ANION GAP 8 MMOL/L (8-16); BILIRUBIN,TOTAL 0.6 mg/dL (0.2-1); BLOOD UREA NITROGEN 46 mg/dL (7-18); CALCIUM 8.9 mg/dL (8.5-10.1); CHLORIDE 101 mmol/L (98-107); CO2 28 mmol/L (21-32); CREATININE 1.4 mg/dL (0.55-1.3); GLUCOSE,RANDOM 253 mg/dL (74-106); POTASSIUM 4.5 mmol/L (3.5-5.1); SGOT/AST 14 U/L (15-37); SGPT/ALT 20 U/L (13-61); SODIUM 137 mmol/L (136-145); TOT PROT 6.5 g/dl (6.4-8.2)
--- NOTE | 2018-05-31 08:42 | PN ---
Progress Note (short form) - Note Progress Note: Vascular Surgery Pt cleared by pulmonary for port placement Will place port this am. Pt is npo Wilfred Chandler DO
[2018-05-31] MEDS ORDERED: PT OWN MED DRAWER 7, Y5N ONE (09:14)
[2018-05-31] MEDS: LOSARTAN POTASSIUM 25 MG TABLET PO SCH (09:25)
[2018-05-31] MEDS: amLODIPine BESYLATE 5 MG TABLET (FP) PO SCH (09:25)
[2018-05-31] MEDS: PANTOPRAZOLE 40 MG TABLET (FP) PO SCH (09:25)
[2018-05-31] MEDS: methylPREDNISolone NA SUCC 40 MG/1 ML VIAL IVPUSH SCH ×2 (09:25→21:34)
[2018-05-31] MEDS: guaiFENesin 600 MG TABLET.ER (FP) PO SCH ×2 (09:25→21:34)
[2018-05-31] MEDS: METHIMAZOLE 10 MG TABLET (FP) PO SCH ×2 (09:26→21:34)
[2018-05-31] MEDS ORDERED: LIDOCAINE HCL 1%, 10 MG/ML (20ML VIAL) ONE (10:09)
[2018-05-31] MEDS ORDERED: ONDANSETRON 4 MG/2 ML VIAL IVPUSH PRN ×2 (10:50→12:15)
[2018-05-31] MEDS ORDERED: LIDOCAINE HCL/PF 2% SDV 5ML VIAL ONE (11:05)
[2018-05-31] MEDS ORDERED: PROPOFOL 20 ML ONE ×2 (11:06)
[2018-05-31] MEDS ORDERED: MIDAZOLAM HCL 2 MG/2 ML SINGLE DOSE VIAL ONE (11:06)
[2018-05-31] MEDS ORDERED: ceFAZolin SODIUM 1 GM VIAL ONE (11:13)
[2018-05-31] MEDS ORDERED: ceFAZolin SODIUM 1 GM VIAL IVPB ONE (11:15)
[2018-05-31] MEDS ORDERED: LIDOCAINE HCL 1%, 10 MG/ML (50 mL VIAL) IJ ONE (11:19)
--- NOTE | 2018-05-31 11:54 | OP ---
Operative Note - Note: Operative Date: 05/31/18 Pre-Operative Diagnosis: lung CA Operation: Insertion of portacath Post-Operative Diagnosis: Same as Pre-op Surgeon: Wilfred Chandler Anesthesia: Fractional Estimated Blood Loss (mls): 10 Operative Report Dictated: Yes
[2018-05-31] MEDS ORDERED: ACETAMINOPHEN 325 MG TABLET (FP) PO PRN (12:15)
[2018-05-31] MEDS ORDERED: ALBUTEROL SO4 0.083% IH SOL 2.5 MG/3 ML VIAL.NEB. NEB PRN (12:15)
[2018-05-31] MEDS ORDERED: ZOLPIDEM TARTRATE 5 MG TABLET PO PRN (12:15)
[2018-05-31] MEDS ORDERED: SODIUM CHLORIDE 1,000 ML IV SCH (12:15)
[2018-05-31] MEDS ORDERED: ALPRAZolam 0.25 MG TABLET PO PRN (12:15)
--- NOTE | 2018-05-31 13:07 | PN ---
Progress Note, Physician Chief Complaint: patient seen and examined just came back from chemoport placement on iv medrol bid qualifies for home oxygen - Current Medication List Current Medications: Active Medications Acetaminophen (Tylenol -) 650 mg PO Q6H PRN PRN Reason: FEVER Albuterol Sulfate (Ventolin 0.083% Nebulizer Soln -) 1 amp NEB ONCE PRN PRN Reason: WHEEZING Alprazolam (Xanax -) 0.25 mg PO BID PRN PRN Reason: ANXIETY Amlodipine Besylate (Norvasc -) 5 mg PO DAILY [facility] Fentanyl (Sublimaze Injection -) 25 mcg IVPUSH [id number] PRN PRN Reason: PAIN-PACU ORDER X 4 DOSES ONLY Glimepiride (Amaryl -) 1 mg PO DAILY@0700 [facility] Guaifenesin (Mucinex -) 600 mg PO BID [facility] Sodium Chloride (Normal Saline -) 1,000 mls @ 50 mls/hr IV ASDIR [facility] Insulin Aspart (Novolog Vial Sliding Scale -) 1 vial SQ ACHS [facility]; Protocol Levofloxacin (Levaquin -) 500 mg PO DAILY@0600 [facility] Losartan Potassium (Cozaar -) 25 mg PO DAILY [facility] Metformin HCl (Glucophage -) 500 mg PO BID@0700,1630 [facility] Methimazole (Tapazole -) 10 mg PO BID [facility] Methylprednisolone Sodium Succinate (Solu-Medrol -) 40 mg IVPUSH BID [facility] Ondansetron HCl (Zofran Injection) 4 mg IVPUSH Q6H PRN PRN Reason: NAUSEA AND/OR VOMITING Pantoprazole Sodium (Protonix -) 40 mg PO DAILY [facility] Zolpidem Tartrate (Ambien -) 5 mg PO HS PRN PRN Reason: INSOMNIA - Objective Vital Signs: Vital Signs Temperature 98.2 F 05/31/18 11:53 Pulse Rate 93 H 05/31/18 12:56 Respiratory Rate 16 05/31/18 12:20 Blood Pressure 124/66 05/31/18 12:20 O2 Sat by Pulse Oximetry (%) 93 L 05/31/18 12:56 Constitutional: Yes: Calm Cardiovascular: Yes: Regular Rate and Rhythm, S1, S2 Respiratory: Yes: CTA Bilaterally, On Nasal O2 Gastrointestinal: Yes: Normal Bowel Sounds, Soft Edema: No Neurological: Yes: Alert, Oriented Labs: CBC, BMP 05/31/18 05:30 05/31/18 05:30 INR, PTT INR 1.25 (0.83-1.09) H 05/23/18 10:35 Problem List - Problems (1) SOB (shortness of breath) Assessment/Plan: nasal oxygen po levaquin for 3 more days iv medrol bid today change to oral prednisone in AM pulm follow up Code(s): R06.02 - SHORTNESS OF BREATH (2) SCC (squamous cell carcinoma of lung) Assessment/Plan: oncology is on board oxygen via nasal canula chemo port placed today po levaquin 500mg po daily for 3 moredays blood cultures negative no aortic anerysum on CT scan done 05/16/18 Microbiology 05/27/18 12:30 Urine - Urine Clean Catch Urine Culture - Final NO GROWTH OBTAINED 05/25/18 11:00 Urine For Antigen Detection Legionella Antigen - Final 05/25/18 11:00 Urine For Antigen Detection Streptococcus pneumoniae Antigen (M - Final 05/25/18 10:00 Sputum - Expectorated Gram Stain - Final 05/25/18 10:00 Sputum - Expectorated Sputum Culture - Final NORMAL RESPIRATORY RIA 05/23/18 10:35 Blood - Peripheral Venous Blood Culture - Final NO GROWTH AFTER 5 DAYS INCUBATION 05/23/18 10:35 Blood - Peripheral Venous Blood Culture - Final NO GROWTH AFTER 5 DAYS INCUBATION Code(s): C34.90 - MALIGNANT NEOPLASM OF UNSP PART OF UNSP BRONCHUS OR LUNG (3) THIAGO (acute kidney injury) Assessment/Plan: ivf- creatininie now normal Code(s): N17.9 - ACUTE KIDNEY FAILURE, UNSPECIFIED (4) Pain and swelling of left wrist Assessment/Plan: ID on board iv rocephin change to po abx- levaquin elevated lactic acid - repeat ordered now 2.1 to 1.5 ultrasound of wrist done - no mass or fluid seen Code(s): M25.532 - PAIN IN LEFT WRIST; M25.432 - EFFUSION, LEFT WRIST (5) Rheumatoid arthritis Assessment/Plan: on prednisone ppi Code(s): M06.9 - RHEUMATOID ARTHRITIS, UNSPECIFIED
--- NOTE | 2018-05-31 13:10 | PN ---
Progress Note (short form) - Note Progress Note: S/P Mediport placement without event earlier today. Breathing feels stable. Intake & Output 05/28/18 05/29/18 05/30/18 05/31/18 23:59 23:59 23:59 23:59 Intake Total 800 350 670 250 Output Total 10 Balance 800 350 670 240 Weight 213 lb 9.6 oz 210 lb 211 lb 3.2 oz Last Vital Signs Temp Pulse Resp BP Pulse Ox 98.5 F 93 H 16 125/65 93 L 05/31/18 12:40 05/31/18 12:56 05/31/18 12:40 05/31/18 12:40 05/31/18 12:56 Active Medications Acetaminophen (Tylenol -) 650 mg PO Q6H PRN PRN Reason: FEVER Albuterol Sulfate (Ventolin 0.083% Nebulizer Soln -) 1 amp NEB ONCE PRN PRN Reason: WHEEZING Alprazolam (Xanax -) 0.25 mg PO BID PRN PRN Reason: ANXIETY Amlodipine Besylate (Norvasc -) 5 mg PO DAILY [facility] Fentanyl (Sublimaze Injection -) 25 mcg IVPUSH [id number] PRN PRN Reason: PAIN-PACU ORDER X 4 DOSES ONLY Glimepiride (Amaryl -) 1 mg PO DAILY@0700 [facility] Guaifenesin (Mucinex -) 600 mg PO BID [facility] Sodium Chloride (Normal Saline -) 1,000 mls @ 50 mls/hr IV ASDIR [facility] Last Admin: 05/31/18 12:40 Dose: 0 mls Insulin Aspart (Novolog Vial Sliding Scale -) 1 vial SQ ACHS [facility]; Protocol Levofloxacin (Levaquin -) 500 mg PO DAILY@0600 [facility] Losartan Potassium (Cozaar -) 25 mg PO DAILY [facility] Metformin HCl (Glucophage -) 500 mg PO BID@0700,1630 [facility] Methimazole (Tapazole -) 10 mg PO BID [facility] Methylprednisolone Sodium Succinate (Solu-Medrol -) 40 mg IVPUSH BID [facility] Ondansetron HCl (Zofran Injection) 4 mg IVPUSH Q6H PRN PRN Reason: NAUSEA AND/OR VOMITING Pantoprazole Sodium (Protonix -) 40 mg PO DAILY [facility] Zolpidem Tartrate (Ambien -) 5 mg PO HS PRN PRN Reason: INSOMNIA Constitutional: Yes: NAD Eyes: Yes: WNL HENT: Yes: WNL Neck: Yes: WNL Cardiovascular: Yes: Regular Rate and Rhythm, S1, S2 Respiratory: Yes: Diminished at the bases, few rhonchi Gastrointestinal: Yes: Normal Bowel Sounds, Soft Extremities: Yes: WNL Edema: No Labs: Laboratory Results - last 24 hr 05/30/18 05/30/18 05/31/18 17:23 21:46 05:28 WBC RBC Hgb Hct MCV MCH MCHC RDW Plt Count MPV Sodium Potassium Chloride Carbon Dioxide Anion Gap BUN Creatinine Creat Clearance w eGFR POC Glucometer 206 277 255 Random Glucose Calcium Total Bilirubin AST ALT Alkaline Phosphatase Total Protein Albumin 05/31/18 05/31/18 05:30 05:30 WBC 12.3 H RBC 2.51 L Hgb 9.1 L Hct 23.9 L MCV 95.2 MCH 36.2 H MCHC 38.0 H RDW 21.2 H Plt Count 366 MPV 8.2 Sodium 137 Potassium 4.5 Chloride 101 Carbon Dioxide 28 Anion Gap 8 BUN 46 H Creatinine 1.4 H Creat Clearance w eGFR 36.96 POC Glucometer Random Glucose 253 H Calcium 8.9 Total Bilirubin 0.6 AST 14 L ALT 20 Alkaline Phosphatase 71 Total Protein 6.5 Albumin 2.8 L Problem List - Problems (1) Chills (without fever) Code(s): R68.83 - CHILLS (WITHOUT FEVER) (2) SCC (squamous cell carcinoma of lung) Code(s): C34.90 - MALIGNANT NEOPLASM OF UNSP PART OF UNSP BRONCHUS OR LUNG (3) Stage 4 lung cancer Code(s): C34.90 - MALIGNANT NEOPLASM OF UNSP PART OF UNSP BRONCHUS OR LUNG (4) Cellulitis of left hand Code(s): L03.114 - CELLULITIS OF LEFT UPPER LIMB (5) Fever Code(s): R50.9 - FEVER, UNSPECIFIED (6) Pulmonary infiltrate Code(s): R91.8 - OTHER NONSPECIFIC ABNORMAL FINDING OF LUNG FIELD (7) Rheumatoid arthritis Code(s): M06.9 - RHEUMATOID ARTHRITIS, UNSPECIFIED (8) Sepsis Code(s): A41.9 - SEPSIS, UNSPECIFIED ORGANISM Qualifiers: Sepsis type: sepsis due to unspecified organism Qualified Code(s): A41.9 - Sepsis, unspecified organism Assessment/Plan Pneumonia Metastatic Lung Cancer COPD Rheumatoid Arthritis Anemia - Levaquin per ID - inhaled bronchodilators - O2 as needed - D/C systemic steroids - D/C planning Dr Sanabria
--- NOTE | 2018-05-31 13:38 | DS ---
Physical Examination Vital Signs: Vital Signs Temperature 98.5 F 05/31/18 12:40 Pulse Rate 93 H 05/31/18 12:56 Respiratory Rate 16 05/31/18 12:40 Blood Pressure 125/65 05/31/18 12:40 O2 Sat by Pulse Oximetry (%) 93 L 05/31/18 12:56 Constitutional: Yes: Calm Neck: Yes: Other (chemoport) Cardiovascular: Yes: Regular Rate and Rhythm, S1, S2 Respiratory: Yes: CTA Bilaterally Gastrointestinal: Yes: Normal Bowel Sounds, Soft Edema: No Labs: CBC, BMP 05/31/18 05:30 05/31/18 05:30 Discharge Summary Reason For Visit: CHILLS WITHOUT FEVER Current Active Problems THIAGO (acute kidney injury) (Acute) Chills (without fever) (Acute) Diabetes (Acute) Pain and swelling of left wrist (Acute) Preop cardiovascular exam (Acute) SCC (squamous cell carcinoma of lung) (Acute) SOB (shortness of breath) (Acute) Stage 4 lung cancer (Acute) Thyroiditis (Acute) Hospital Course: - Primary Care Physician PCP: Juventino Ruby I - Admission Chief Complaint: Chills History of Present Illness: Patient is a 73 y/o female with past medical history RA, HTN, Squamous Cell Lung CA s/p lobectomy, adjuvant chemo, s/p mediastinal recurrence. Patient referred from her Oncologist office for chills x 1 week. Patient denies fever at home, productive cough. Last round of chemotherapy is 1 week ago with Gemzar. She says last round of chemo IV infiltrated while receiving Gemzar. bronchits ? pna: got iv abx change to po levaquin- elevated lactic acid now improved got chemoport placed for outpatient therapy wist selling improved ultrasound of wrist no mass or abscess seen seen by cardiology and endocrine to go home with oxygen Condition: Stable - Instructions Diet, Activity, Other Instructions: outpatient chemotherapy home oxygen Referrals: Humza Camarillo MD [Staff Physician] - 2 Weeks Disposition: HOME - Home Medications Comprehensive Discharge Medication List: Ambulatory Orders Alprazolam [Xanax] 0.5 mg PO HS 03/30/15 Zolpidem Tartrate [Ambien] 10 mg PO HS 03/30/15 Amlodipine Besylate [Norvasc -] 5 mg PO DAILY 11/14/17 Prednisone 5 mg PO DAILY 11/14/17 Cholecalciferol (Vitamin D3) [Vitamin D3] 1,000 unit PO DAILY 01/16/18 Losartan Potassium 25 mg PO DAILY 05/21/18
--- NOTE | 2018-05-31 14:07 | PN ---
Progress Note (short form) - Note Progress Note: patient to leave [facility] morning home oxygen to be deliverd in AM and [employer] will be resumed in AM as well Problem List - Problems (1) SOB (shortness of breath) Code(s): R06.02 - SHORTNESS OF BREATH (2) SCC (squamous cell carcinoma of lung) Code(s): C34.90 - MALIGNANT NEOPLASM OF UNSP PART OF UNSP BRONCHUS OR LUNG (3) THIAGO (acute kidney injury) Code(s): N17.9 - ACUTE KIDNEY FAILURE, UNSPECIFIED (4) Pain and swelling of left wrist Code(s): M25.532 - PAIN IN LEFT WRIST; M25.432 - EFFUSION, LEFT WRIST (5) Rheumatoid arthritis Code(s): M06.9 - RHEUMATOID ARTHRITIS, UNSPECIFIED
[2018-05-31 15:13] VITALS: BMI 32.1
--- NOTE | 2018-05-31 22:12 | PN ---
Progress Note (short form) - Note Progress Note: Patient seen and examined feels better AFVSS Cor: RSR, No murmurs, No gallops Lungs: coarse breath sounds bilaterally Abd: Soft, Normal bowel sounds, No organomegaly Ext:No significant edema Left wrist --no erythema /tenderness Labs/Meds reviewed A/P SCC of lung with multiple pulmonary nodules Rheumatoid arthritis Gemzar infiltration dorsum left hand and wrist Anemia "Chills"- elevated lactic acid Generalized body aches/pains CT scan --progressive disease clinically improved on antibiotics/steroids for s/p will need home oxygen steroid induced DM --will request diabetic teaching/endocrine consult Steroid taper per pulmonary to complete course of levaquin to consider nivolumab as outpatient
[2018-06-01] MEDS ORDERED: PT OWN MED DRAWER 7, Y5N ONE ×2 (06:10→08:54)
[2018-06-01] MEDS: metFORMIN HCL 500 MG TABLET (FP) PO SCH (06:44)
[2018-06-01] MEDS: INSULIN SLIDING SCALE (NOVOLOG) 1 VIAL SQ SCH ×2 (06:44→11:35)
[2018-06-01] MEDS ORDERED: GLIMEPIRIDE 1 MG TABLET (FP) PO SCH (07:00)
[2018-06-01] MEDS: methylPREDNISolone NA SUCC 40 MG/1 ML VIAL IVPUSH SCH (09:05)
[2018-06-01] MEDS: METHIMAZOLE 10 MG TABLET (FP) PO SCH (09:06)
[2018-06-01] MEDS: guaiFENesin 600 MG TABLET.ER (FP) PO SCH (09:07)
[2018-06-01] MEDS ORDERED: amLODIPine BESYLATE 5 MG TABLET (FP) PO SCH (10:00)
[2018-06-01] MEDS ORDERED: LOSARTAN POTASSIUM 25 MG TABLET PO SCH (10:00)
[2018-06-01] MEDS ORDERED: PANTOPRAZOLE 40 MG TABLET (FP) PO SCH (10:00)
--- NOTE | 2018-06-01 11:29 | PN ---
Progress Note (short form) - Note Progress Note: Patient seen and examined Clinically improved Less dyspneic Arthritic symptoms improved with steroids Currently requiring insulin therapy Last Vital Signs Temp Pulse Resp BP Pulse Ox 98 F 81 20 136/66 93 L 06/01/18 06:00 06/01/18 06:00 06/01/18 06:00 06/01/18 06:00 05/31/18 21:00 HEENT: GIUSEPPE, EOM Intact Oropharynx: No thrush, No mucositis Cor: RSR, No murmurs, No gallops Lungs: Clear to P&A Abd: Soft, Normal bowel sounds, No organomegaly Ext:No significant edema LE; minimal right wrist swelling Skin: No rashes, Integument intact CBC, BMP 05/31/18 05:30 05/31/18 05:30 Current Medications Generic Name Dose Route Start Last Admin Trade Name Freq PRN Reason Stop Dose Admin Acetaminophen 650 mg 05/31/18 12:15 Tylenol - PO Q6H PRN FEVER Albuterol Sulfate 1 amp 05/31/18 12:15 Ventolin 0.083% Nebulizer Soln - NEB ONCE PRN WHEEZING Alprazolam 0.25 mg 05/31/18 12:15 Xanax - PO BID PRN ANXIETY Amlodipine Besylate 5 mg 06/01/18 10:00 06/01/18 09:06 Norvasc - PO 5 mg DAILY RICHARD Administration Fentanyl 25 mcg 05/31/18 12:15 Sublimaze Injection - IVPUSH [id number] PRN PAIN-PACU ORDER X 4 DOSES ONLY Glimepiride 1 mg 06/01/18 07:00 06/01/18 06:44 Amaryl - PO 1 mg DAILY@0700 RICHARD Administration Guaifenesin 600 mg 05/31/18 22:00 06/01/18 09:07 Mucinex - PO 600 mg BID RICHARD Administration Sodium Chloride 1,000 mls @ 50 mls/hr 05/31/18 12:15 05/31/18 12:40 Normal Saline - IV 0 mls ASDIR RICHARD Administration Insulin Aspart 1 vial 05/31/18 16:30 06/01/18 06:44 Novolog Vial Sliding Scale - SQ Not Given ACHS [facility] Protocol Levofloxacin 500 mg 06/01/18 06:00 06/01/18 06:44 Levaquin - PO 500 mg DAILY@0600 RICHARD Administration Losartan Potassium 25 mg 06/01/18 10:00 06/01/18 09:07 Cozaar - PO 25 mg DAILY RICHARD Administration Metformin HCl 500 mg 05/31/18 16:30 06/01/18 06:44 Glucophage - PO 500 mg BID@0700,1630 RICHARD Administration Methimazole 10 mg 05/31/18 22:00 06/01/18 09:06 Tapazole - PO 10 mg BID RICHARD Administration Methylprednisolone Sodium Succinate 40 mg 05/31/18 22:00 06/01/18 09:05 Solu-Medrol - IVPUSH 40 mg BID RCIHARD Administration Ondansetron HCl 4 mg 05/31/18 12:15 Zofran Injection IVPUSH Q6H PRN NAUSEA AND/OR VOMITING Pantoprazole Sodium 40 mg 06/01/18 10:00 06/01/18 09:07 Protonix - PO 40 mg DAILY RICHARD Administration Zolpidem Tartrate 5 mg 05/31/18 12:15 Ambien - PO HS PRN INSOMNIA Impression: Progressive SCC R.A. Hyperglycemia HBP Hyperthyroidism Plan Outpatient follow up with Dr. Paige after discharge to resume therapy for SCC.
[2018-06-01 11:49] VITALS: BP 120/79; PULSE 105; TEMP 97.4
--- NOTE | 2018-06-01 11:51 | PN ---
Progress Note, Physician Chief Complaint: pateint seen and examined ready to go home today - Current Medication List Current Medications: Active Medications Acetaminophen (Tylenol -) 650 mg PO Q6H PRN PRN Reason: FEVER Albuterol Sulfate (Ventolin 0.083% Nebulizer Soln -) 1 amp NEB ONCE PRN PRN Reason: WHEEZING Alprazolam (Xanax -) 0.25 mg PO BID PRN PRN Reason: ANXIETY Amlodipine Besylate (Norvasc -) 5 mg PO DAILY [facility] Last Admin: 06/01/18 09:06 Dose: 5 mg Fentanyl (Sublimaze Injection -) 25 mcg IVPUSH [id number] PRN PRN Reason: PAIN-PACU ORDER X 4 DOSES ONLY Glimepiride (Amaryl -) 1 mg PO DAILY@0700 [facility] Last Admin: 06/01/18 06:44 Dose: 1 mg Guaifenesin (Mucinex -) 600 mg PO BID [facility] Last Admin: 06/01/18 09:07 Dose: 600 mg Sodium Chloride (Normal Saline -) 1,000 mls @ 50 mls/hr IV ASDIR [facility] Last Admin: 05/31/18 12:40 Dose: 0 mls Insulin Aspart (Novolog Vial Sliding Scale -) 1 vial SQ ACHS [facility]; Protocol Last Admin: 06/01/18 11:35 Dose: Not Given Levofloxacin (Levaquin -) 500 mg PO DAILY@0600 [facility] Last Admin: 06/01/18 06:44 Dose: 500 mg Losartan Potassium (Cozaar -) 25 mg PO DAILY [facility] Last Admin: 06/01/18 09:07 Dose: 25 mg Metformin HCl (Glucophage -) 500 mg PO BID@0700,1630 [facility] Last Admin: 06/01/18 06:44 Dose: 500 mg Methimazole (Tapazole -) 10 mg PO BID [facility] Last Admin: 06/01/18 09:06 Dose: 10 mg Methylprednisolone Sodium Succinate (Solu-Medrol -) 40 mg IVPUSH BID [facility] Last Admin: 06/01/18 09:05 Dose: 40 mg Ondansetron HCl (Zofran Injection) 4 mg IVPUSH Q6H PRN PRN Reason: NAUSEA AND/OR VOMITING Pantoprazole Sodium (Protonix -) 40 mg PO DAILY [facility] Last Admin: 06/01/18 09:07 Dose: 40 mg Zolpidem Tartrate (Ambien -) 5 mg PO HS PRN PRN Reason: INSOMNIA - Objective Vital Signs: Vital Signs Temperature 97.4 F L 06/01/18 09:00 Pulse Rate 105 H 06/01/18 09:00 Respiratory Rate 20 06/01/18 09:00 Blood Pressure 120/79 06/01/18 09:00 O2 Sat by Pulse Oximetry (%) 99 06/01/18 09:00 Constitutional: Yes: Calm HENT: Yes: Other (chemoport) Cardiovascular: Yes: Regular Rate and Rhythm, S1, S2 Respiratory: Yes: CTA Bilaterally Gastrointestinal: Yes: Normal Bowel Sounds, Soft Edema: No Neurological: Yes: Alert, Oriented Labs: CBC, BMP 05/31/18 05:30 05/31/18 05:30 INR, PTT INR 1.25 (0.83-1.09) H 05/23/18 10:35 Problem List - Problems (1) SOB (shortness of breath) Assessment/Plan: nasal oxygen po levaquin for 2 more days iv medrol stopped no po steroids needed Code(s): R06.02 - SHORTNESS OF BREATH (2) SCC (squamous cell carcinoma of lung) Assessment/Plan: oncology is on board oxygen via nasal canula chemo port placed today- chemo as outpateint po levaquin 500mg po daily for 3 moredays blood cultures negative no aortic anerysum on CT scan done 05/16/18 Microbiology 05/27/18 12:30 Urine - Urine Clean Catch Urine Culture - Final NO GROWTH OBTAINED 05/25/18 11:00 Urine For Antigen Detection Legionella Antigen - Final 05/25/18 11:00 Urine For Antigen Detection Streptococcus pneumoniae Antigen (M - Final 05/25/18 10:00 Sputum - Expectorated Gram Stain - Final 05/25/18 10:00 Sputum - Expectorated Sputum Culture - Final NORMAL RESPIRATORY RIA 05/23/18 10:35 Blood - Peripheral Venous Blood Culture - Final NO GROWTH AFTER 5 DAYS INCUBATION 05/23/18 10:35 Blood - Peripheral Venous Blood Culture - Final NO GROWTH AFTER 5 DAYS INCUBATION Code(s): C34.90 - MALIGNANT NEOPLASM OF UNSP PART OF UNSP BRONCHUS OR LUNG (3) THIAGO (acute kidney injury) Assessment/Plan: ivf- creatininie now normal Code(s): N17.9 - ACUTE KIDNEY FAILURE, UNSPECIFIED (4) Pain and swelling of left wrist Assessment/Plan: ID on board iv rocephin change to po abx- levaquin elevated lactic acid - repeat ordered now 2.1 to 1.5 ultrasound of wrist done - no mass or fluid seen Code(s): M25.532 - PAIN IN LEFT WRIST; M25.432 - EFFUSION, LEFT WRIST (5) Rheumatoid arthritis Assessment/Plan: on prednisone ppi Code(s): M06.9 - RHEUMATOID ARTHRITIS, UNSPECIFIED
--- NOTE | 2018-06-04 09:34 | OP ---
DATE OF OPERATION: 05/31/2018 PREOPERATIVE DIAGNOSIS: Metastatic lung cancer. POSTOPERATIVE DIAGNOSIS: Metastatic lung cancer. PROCEDURE: Insertion of Port-a-cath. SURGEON: Wilfred Julian DO ANESTHESIA: Fractional. BLOOD LOSS: 50 Ml INIDCATIONS: Patient is a 73-year-old female is in the hospital for shortness of breath. Patient has metastatic lung cancer and needs Port-a-cath placement for chemotherapy. PROCEDURE: After the patient was cleared by Medicine and Pulmonary, we went ahead and booked the patient. The patient came down to the operating room. Patient was consented for the procedure understanding all risks, benefits and alternatives and was then brought to the operating room. Once in the operating room, she was laid on the operating room table in the supine manner and the area of the right neck and chest were prepped and draped in a sterile surgical manner. Under ultrasound guidance we were able to visualize the right internal jugular vein and using our micropuncture needle we were able to inject 10 mL of lidocaine 1% above the vein. We then took our micropuncture needle and punctured the right internal jugular vein under ultrasound guidance and the micropuncture wire was inserted, the micropuncture sheath was inserted. We then went ahead and went below the clavicle and we injected 15 mL of lidocaine 1%. We then made a 5 cm incision using a 15 blade. Bovie electrocautery was used to assure hemostasis and we were able to get through all the subcutaneous tissue and create a pocket for our Port-a-cath. Once the pocket was created, we used our tunneler and we put together our tunneler with the [id number]. At this point we went back up to the puncture site. A 0.34 floppy guidewire was placed under fluoroscopy. The micropuncture sheath was removed. Using an 11 blade, we made a 1 cm incision. We then tunneled the Port-a-cath up to the puncture site and the Port-a-cath was then cut to size under fluoroscopy. We then went ahead and placed our break-away sheath over the guidewire into the vein under fluoroscopy. The inner cannula and guide were removed. The catheter was placed inside the sheath. The sheath was broken away as the catheter was placed at the vein. We then put a Bingham needle into the Port-a-cath and there was good return. Using heparinized saline we flushed the Port-a-cath and we then placed 2000 units of IV heparin into the Port-a-cath. We then used 3-0 silk and the [id number] was secured to the subcutaneous tissue. We then used a 3-0 Vicryl and the subcutaneous tissue was approximated in interrupted manner. We then used 4-0 Biosyn and the skin was closed in a subcuticular running fashion. At the puncture site we placed two 4-0 Biosyn stitches and the area was closed. At this point we went and dried the area. We then placed 2 Steri-Strips at the Port-a-cath site and 1 Steri-Strip at the puncture site, 4 x 4's and Tegaderms were placed. The patient tolerated this procedure with no complications. Patient was transferred back in a stable condition where a chest x-ray will be ordered. WILFRED JULIAN DO NP/[id number]
== END 2018-06-01 13:27 | disposition home or self-care (01) | DRG 180 ==
LOC: JER 09:24 → JERBED 11:31 → J4W 19:45
PROVIDERS: ADMIT Family Medicine; ATTEND Family Medicine
PROC: B513YZA Fluoroscopy of Right Jugular Veins using Other Contrast, Guidance (ICD-10-PCS; 2018-05-31)
PROC: 05HM33Z Insertion of Infusion Device into Right Internal Jugular Vein, Percutaneous Approach (ICD-10-PCS; principal; 2018-05-31 13:30)
DX: C34.91 Malignant neoplasm of unspecified part of right bronchus or lung (principal); J18.9 Pneumonia, unspecified organism; N17.9 Acute kidney failure, unspecified; C77.0 Secondary and unspecified malignant neoplasm of lymph nodes of head, face and neck; E09.9 Drug or chemical induced diabetes mellitus without complications; E05.90 Thyrotoxicosis, unspecified without thyrotoxic crisis or storm; J44.9 Chronic obstructive pulmonary disease, unspecified; I10 Essential (primary) hypertension; T38.0X5A Adverse effect of glucocorticoids and synthetic analogues, initial encounter; Y92.238 Other place in hospital as the place of occurrence of the external cause; M06.9 Rheumatoid arthritis, unspecified; M25.532 Pain in left wrist; Z90.2 Acquired absence of lung [part of]; F32.9 Major depressive disorder, single episode, unspecified; Z87.891 Personal history of nicotine dependence; D64.9 Anemia, unspecified; E66.9 Obesity, unspecified; Z68.32 Body mass index [BMI] 32.0-32.9, adult
CPT/HCPCS: 36415; 71045-TC-FY; 71046-TC-FY; 76000-TC-FY; 76882-TC-RT-FY; 80053; 81003; 82550; 82553; 82607; 82728; 82746; 82803; 82962; 83036; 83540; 83550; 83605; 84439; 84443; 84445; 84484; 85025; 85027; 85610; 85730; 86376; 87040; 87070; 87086; 87205; 87804; 87899; 93005; 93010; 93971; 94640; 94760; 94761; 97116-GP; 97161-GP; 99282-25; J0131; J1644; J7030

== ENCOUNTER 2018-06-07 08:55 | Day surgery (SDC) | payer OTHER ==
[2018-06-07] MEDS ORDERED: DIPHENHYDRAMINE 25 MG in SODIUM CHLORIDE 50 ML IVPB ONE (17:00)
[2018-06-07] MEDS ORDERED: ACETAMINOPHEN 325 MG TABLET (FP) PO ONE (17:00)
[2018-06-07] MEDS ORDERED: SODIUM CHLORIDE 500 ML IV STA (17:03)
[2018-06-07] MEDS ORDERED: DEXAMETHASONE SOD PHOSPHATE 10 MG/1 ML VIAL IVPB ONE (17:25)
[2018-06-07] MEDS ORDERED: guaiFENesin/D-METHORPHAN HB 10 ML UNIT-DOSE CUPS PO ONE (17:30)
[2018-06-07] MEDS ORDERED: NIVOLUMAB 200 MG, NIVOLUMAB 40 MG in SODIUM CHLORIDE 100 ML IVPB ONE (17:30)
[2018-06-07 17:31] VITALS: TEMP 97.5
[2018-06-07] MEDS ORDERED: PORTA CATH FLUSH 10 ML IVPUSH ONE (17:31)
[2018-06-07] MEDS ORDERED: DEXAMETHASONE SOD PHOSPHATE 10 MG/1 ML VIAL ONE (17:33)
[2018-06-07 19:25] VITALS: BP 95/53; PULSE 97
== END 2018-06-07 19:41 | disposition home or self-care (01) ==
LOC: JONCCHEMO 08:55 → J7W 16:08 → JONCCHEMO 19:41
PROVIDERS: ATTEND Internal Medicine Hematology & Oncology
DX: Z51.11 Encounter for antineoplastic chemotherapy (principal); C34.91 Malignant neoplasm of unspecified part of right bronchus or lung; M06.9 Rheumatoid arthritis, unspecified
CPT/HCPCS: 96361; 96375; 96413; J1100; J9299

== ENCOUNTER 2018-06-15 13:23 | Inpatient (IN) | payer OTHER ==
[2018-06-15] MEDS ORDERED: ACETAMINOPHEN 1000 MG/100 ML VIAL (NON FORMULARY) IVPB ONE (14:23)
[2018-06-15] MEDS ORDERED: PIPERACILLIN/TAZOB 3.375 GM 3.375 GM in DEXTROSE 5%-WATER - 50 ML IVPB ONE (14:23)
[2018-06-15] MEDS ORDERED: SODIUM CHLORIDE 0.9% 500 ML INFUS.BAG IV ONE ×2 (14:23→16:55)
[2018-06-15] MEDS ORDERED: ACETAMINOPHEN INJECTION 100 ML IVPB ONE (14:25)
[2018-06-15] MEDS ORDERED: PIPERACILLIN/TAZOB 3.375 GM 3.375 GM/50 ML BAG IVPB ONE ×2 (14:26→14:31)
--- NOTE | 2018-06-15 14:31 | PDOC ---
History of Present Illness - General Chief Complaint: SIRS, Suspected/Possible Stated Complaint: WEAKNESS Time Seen by Provider: 06/15/18 13:52 - History of Present Illness Initial Comments: The pt is a 73F w/ a history of lung cancer and HTN who presents from clinic for evaluation of generalized weakness. The pt reports that she feels at her baseline and denies any acute complaints. She denies fevers/chills, chest pain, SOB, abdominal pain, N/V/C/D, dysuria, hematuria, or changes in sensation. She reports that her last chemo treatment for her lung cancer was this past Monday. 06/15/18 14:35 Past History - Past Medical History Allergies/Adverse Reactions: Allergies Allergy/AdvReac Type Severity Reaction Status Date / Time penicillin V Allergy Verified 06/15/18 16:46 aspirin AdvReac Mild Verified 06/15/18 13:48 Home Medications: Ambulatory Orders Albuterol Sulfate Inhaler - [Ventolin Hfa Inhaler -] 2 inh PO Q6H 06/15/18 Alprazolam [Xanax] 0.25 mg PO DAILY 06/15/18 Amlodipine Besylate [Norvasc -] 5 mg PO DAILY 06/15/18 Atovaquone 750 mg PO DAILY 06/15/18 Azithromycin [Zithromax -] 250 mg PO DAILY 06/15/18 Blood-Glucose Meter [Freestyle Lite Meter] 1 each MC ACHS 06/15/18 Budesonide/Formeterol Fumarate [SYMBICORT 160/4.5mcg -] 1 inh PO BID 06/15/18 Cefuroxime Axetil [Ceftin -] 500 mg PO Q12H 06/15/18 Febuxostat [Uloric -] 40 mg PO DAILY 06/15/18 Losartan Potassium [Cozaar -] 50 mg PO DAILY 06/15/18 Methotrexate [Mexate -] 2.5 mg PO Q7D 06/15/18 Pantoprazole Sodium [Protonix -] 40 mg PO DAILY 06/15/18 Prednisolone [Millipred] 5 mg PO DAILY 06/15/18 Sulfamethoxazole/Trimethoprim [Sulfamethoxazole-Tmp Ds Tablet] 1 each PO DAILY 06/15/18 Sulfasalazine [Sulf[address] Dr] 500 mg PO DAILY 06/15/18 Tramadol HCl [Ultram] 50 mg PO DAILY 06/15/18 Valsartan [Diovan] 160 mg PO DAILY 06/15/18 Zolpidem Tartrate [Ambien] 10 mg PO DAILY 06/15/18 Anemia: No Asthma: No Cancer: Yes (lung) Cardiac Disorders: No CVA: No COPD: No CHF: No Dementia: No Diabetes: No (BORDERLINE) GI Disorders: Yes Disorders: No HTN: Yes Hypercholesterolemia: No Liver Disease: No Psychiatric Problems: Yes (depression) Seizures: No Thyroid Disease: No Lung CA: Yes - Surgical History Abdominal Surgery: No Appendectomy: No Cardiac Surgery: No Cholecystectomy: No Lung Surgery: Yes (right lobectomy 2015) Neurologic Surgery: No Orthopedic Surgery: No - Immunization History Immunization Up to Date: Yes - Suicide/Smoking/Psychosocial Hx Smoking Status: Yes Smoking History: Former smoker Have you smoked in the past 12 months: No Number of Cigarettes Smoked Daily: 10 If you are a former smoker, when did you quit?: 12/16/14 Information on smoking cessation initiated: No 'Breaking Loose' booklet given: 08/24/15 Hx Alcohol Use: No Drug/Substance Use Hx: No Substance Use Type: None Hx Substance Use Treatment: No Review of Systems - Review of Systems Able to Perform ROS?: Yes Comments:: GENERAL/CONSTITUTIONAL: No fever or chills. No weakness HEAD, EYES, EARS, NOSE AND THROAT: No change in vision. No ear pain or discharge. No sore throat CARDIOVASCULAR: No chest pain RESPIRATORY: Denies cough, hemoptysis GASTROINTESTINAL: No nausea, vomiting, diarrhea or constipation GENITOURINARY: No dysuria, frequency, or change in urination MUSCULOSKELETAL: No joint or muscle swelling or pain. No neck or back pain SKIN: No rash NEUROLOGIC: No headache, vertigo, loss of consciousness, or change in strength/ sensation ENDOCRINE: No increased thirst. No abnormal weight change HEMATOLOGIC/LYMPHATIC: No anemia, easy bleeding, or history of blood clots ALLERGIC/IMMUNOLOGIC: No hives or skin allergy 06/15/18 13:59 Is the patient limited Citizen [place] proficient: No *Physical Exam - Vital Signs Last Vital Signs Temp Pulse Resp BP Pulse Ox 102.6 F H 139 H 20 113/91 100 06/15/18 13:27 06/15/18 13:27 06/15/18 13:27 06/15/18 13:27 06/15/18 13:27 - Physical Exam Comments: GENERAL: Awake, alert, and oriented to person/place/time, in no acute distress HEAD: No signs of trauma, normocephalic, atraumatic EYES: PERRLA, EOMI, sclera anicteric, conjunctiva clear ENT: Hearing grossly normal, nares patent, oropharynx clear without exudates. Moist mucosa LUNGS: No distress, speaks full sentences, clear to auscultation bilaterally HEART: Tachycardic rate with regular rhythm, normal S1 and S2, no murmurs appreciated, peripheral pulses normal and equal bilaterally ABDOMEN: Soft, nontender, normoactive bowel sounds. No guarding, no rebound EXTREMITIES: Normal inspection, Normal range of motion, no edema. No clubbing or cyanosis NEUROLOGICAL: Cranial nerves II through XII grossly intact. Normal speech, no focal sensorimotor deficits SKIN: Warm, Dry 06/15/18 13:59 ED Treatment Course - LABORATORY CBC & Chemistry Diagram: 06/15/18 14:15 06/15/18 14:15 Medical Decision Making - Medical Decision Making The pt is a 73F w/ a history of HTN and lung cancer who presents for evaluation from clinic for generalized weakness w/o reported symptoms on presentation. However patient appears lethargic, was tachycardic and febrile. ED Course Sepsis w/u sent IVF Ofirmev Vanc and Zosyn 06/15/18 14:41 No leukocytosis Mild anemia, will not transfuse at this time LFTs wnl Lactate wnl Trop I neg Plan for admission for sepsis likely / PNA Dispo: admit 06/15/18 22:51 *DC/Admit/Observation/Transfer Diagnosis at time of Disposition: Lung cancer Qualifiers: Laterality: unspecified laterality Lung location: unspecified part of lung Qualified Code(s): C34.90 - Malignant neoplasm of unspecified part of unspecified bronchus or lung Sepsis Qualifiers: Sepsis type: sepsis due to unspecified organism Qualified Code(s): A41.9 - Sepsis, unspecified organism - Discharge Dispostion Condition at time of disposition: Guarded Decision to Admit order: Yes - Referrals - Patient Instructions - Post Discharge Activity
[2018-06-15 14:33] LABS: BASO % 0.6 % (0-2.0); EOS % 0.4 % (0-4.5); HEMATOCRIT 30.5 % (32.4-45.2); HEMOGLOBIN 9.8 GM/dL (10.7-15.3); LYMPH % 17.2 % (8-40); MCH 30.6 pg (25.7-33.7); MCHC 32.1 g/dl (32.0-36.0); MEAN CELL VOLUME 95.5 fl (80-96); MEAN PLT VOLUME 8.2 fl (7.5-11.1); MONO % 4.8 % (3.8-10.2); PLATELET COUNT 247 K/MM3 (134-434); RBC 3.19 M/mm3 (3.60-5.2); RDW 21.1 % (11.6-15.6); WHITE BLOOD COUNT 9.7 K/mm3 (4.0-10.0)
[2018-06-15 14:41] LABS: VENOUS PH 7.45 (7.31-7.41); VENOUS PO2 54.5 mmHg (30-40)
[2018-06-15 14:47] LABS: INR 1.25 (0.83-1.09); PROTHROMBIN TIME (PATIENT) 14.8 SEC (9.7-13.0)
[2018-06-15 14:50] LABS: ACTIVATED PTT 26.8 SECONDS (25.2-36.5)
[2018-06-15 14:59] LABS: ALBUMIN 2.8 g/dl (3.4-5.0); ALK PHOS 75 U/L (45-117); ANION GAP 9 MMOL/L (8-16); BILIRUBIN,TOTAL 1.1 mg/dL (0.2-1); BLOOD UREA NITROGEN 25 mg/dL (7-18); CALCIUM 8.8 mg/dL (8.5-10.1); CHLORIDE 101 mmol/L (98-107); CO2 27 mmol/L (21-32); CREATININE 1.3 mg/dL (0.55-1.3); GLUCOSE,RANDOM 82 mg/dL (74-106); POTASSIUM 4.2 mmol/L (3.5-5.1); SGOT/AST 21 U/L (15-37); SGPT/ALT 17 U/L (13-61); SODIUM 138 mmol/L (136-145); TOT PROT 6.6 g/dl (6.4-8.2)
[2018-06-15 15:09] LABS: ANISOCYTOSIS 1+; MACROCYTOSIS 1+; OVALOCYTE 1+; PLATELET ESTIMATE NORMAL
--- NOTE | 2018-06-15 16:36 | PDOC ---
Documentation entered by Daisy Alex SCRIBE, acting as scribe for Zo Larson MD. Zo Larson MD: This documentation has been prepared by the Isai villalba Daisy, SCRIBE, under my direction and personally reviewed by me in its entirety. I confirm that the documentation accurately reflects all work, treatment, procedures, and medical decision making performed by me. Attending Attestation - Resident Resident Name: PayamAldair - ED Attending Attestation I have performed the following: I have examined & evaluated the patient, The case was reviewed & discussed with the resident, I agree w/resident's findings & plan - HPI HPI: 06/15/18 14:45 The patient is a 73 YOF with a PMH of lung CA and HTN who presents to the ER for generalized weakness. The patient denies any other symptoms at this time. Her last chemo was on 06/06. Patient's fever in this ER was 102.6. Patient was sent in by Dr. Ruby for severe weakness in the office. He stated that, in the office, she was unable to ambulate. Patient denies all complaints. Reports that she was in her usual state of health until she fell asleep in Dr. Ruby's waiting room. Denies any urinary symptoms, abdominal pain, RAMÍREZ, N/V/D/C. Allergies: aspirin Social Hx: Denies toxic habits. PCP: Dr. Ruby 06/15/18 16:14 - Physicial Exam PE: 06/15/18 14:48 ADULT EXAM GENERAL: Awake, alert, and fully oriented, in no acute distress NECK: Normal ROM, supple, no lymphadenopathy, JVD, or masses LUNGS: Breath sounds equal, clear to auscultation bilaterally. No wheezes, and no crackles HEART: (+) Tachycardic but regular rhythm, normal S1 and S2, no murmurs, rubs or gallops ABDOMEN: Soft, nontender, normoactive bowel sounds. No guarding, no rebound. No masses EXTREMITIES: no tenderness or edema NEUROLOGICAL: Cranial nerves II through XII grossly intact. Normal speech SKIN: Warm, Dry, normal turgor, no rashes or lesions noted. - Medical Decision Making 06/15/18 16:15 Pt presents to the ED after sent in for generalized weakness. Patient denies complaints, but vital signs are consistent with SIRS. Will check labs and start broad spectrum antibiotics, admit to medicine for fever in an immunocompromised patients. Will check CXR, UA, and blood cultures to investigate for a source.
[2018-06-15] MEDS ORDERED: ZOLPIDEM TARTRATE 5 MG TABLET PO PRN (17:19)
[2018-06-15] MEDS ORDERED: ALBUTEROL SO4 0.083% IH SOL 2.5 MG/3 ML VIAL.NEB. NEB PRN (17:24)
[2018-06-15] MEDS ORDERED: METHOTREXATE 2.5 MG TABLET PO SCH (17:30)
--- NOTE | 2018-06-15 17:30 | HP ---
Admitting History and Physical - Primary Care Physician PCP: Juventino Ruby I - Admission Chief Complaint: Weakness History of Present Illness: Patient is a 73 y/o female with past medical history of Lung CA, HTN. Patient presented to ER from PMD office for weakness. On examination patient denies weakness and states she "fell asleep" while waiting to see PMD. In ER patient noted to be tachycardic and febrile with temp 102.6F. History Source: Patient Limitations to Obtaining History: No Limitations - Past Medical History Cardiovascular: Yes: HTN Pulmonary: Yes: Other (Lung cancer --stage IIB . squamous cell) Rheumatology: Yes: Other (rheumatoid arthritis) - Smoking History Smoking history: Former smoker Have you smoked in the past 12 months: No Aproximately how many cigarettes per day: 10 If you are a former smoker, when did you quit?: 12/16/14 - Alcohol/Substance Use Hx Alcohol Use: No - Social History Usual Living Arrangement: Yes: Alone ADL: Independent History of Recent Travel: No Home Medications - Allergies Allergies/Adverse Reactions: Allergies Allergy/AdvReac Type Severity Reaction Status Date / Time aspirin AdvReac Mild Verified 06/15/18 13:48 - Home Medications Home Medications: Ambulatory Orders Albuterol Sulfate Inhaler - [Ventolin HFA Inhaler -] 2 inh PO Q6H 06/15/18 Alprazolam [Xanax] 0.25 mg PO DAILY 06/15/18 Amlodipine Besylate [Norvasc -] 5 mg PO DAILY 06/15/18 Atovaquone 750 mg PO DAILY 06/15/18 Azithromycin [Zithromax -] 250 mg PO DAILY 06/15/18 Blood-Glucose Meter [Freestyle Lite Meter] 1 each ACHS 06/15/18 Budesonide/Formeterol Fumarate [SYMBICORT 160/4.5mcg -] 1 inh PO BID 06/15/18 Cefuroxime Axetil [Ceftin -] 500 mg PO Q12H 06/15/18 Febuxostat [Uloric -] 40 mg PO DAILY 06/15/18 Losartan Potassium [Cozaar -] 50 mg PO DAILY 06/15/18 Methotrexate [Mexate -] 2.5 mg PO Q7D 06/15/18 Pantoprazole Sodium [Protonix -] 40 mg PO DAILY 06/15/18 Prednisolone [Millipred] 5 mg PO DAILY 06/15/18 Sulfasalazine [Sulfas[address]azine Dr] 500 mg PO DAILY 06/15/18 Tramadol HCl [Ultram] 50 mg PO DAILY 06/15/18 Zolpidem Tartrate [Ambien] 10 mg PO DAILY 06/15/18 Acetaminophen [Tylenol .Extra-Strength -] 500 mg PO Q6H PRN tablet 06/19/18 Atovaquone [Mepron Oral Solution -] 1,500 mg PO DAILY@0800 #1 bottle 06/19/18 Losartan Potassium [Cozaar -] 50 mg PO DAILY tablet 06/19/18 Sitagliptin Phosphate [Januvia -] 50 mg PO DAILY@0700 #30 tablet 06/19/18 Sulfasalazine [Azulfidine En-Tabs -] 500 mg PO DAILY tablet.dr 06/19/18 metFORMIN HCL [Glucophage -] 500 mg PO BID@0700,1630 #60 tablet 06/19/18 predniSONE [Deltasone -] 25 mg PO DAILY #150 tablet 06/19/18 Review of Systems - Review of Systems Constitutional: reports: No Symptoms Eyes: reports: No Symptoms HENT: reports: No Symptoms Neck: reports: No Symptoms Cardiovascular: reports: No Symptoms Respiratory: reports: SOB on Exertion Gastrointestinal: reports: No Symptoms Genitourinary: reports: No Symptoms Breasts: reports: No Symptoms Reported Musculoskeletal: reports: No Symptoms Integumentary: reports: No Symptoms Neurological: reports: No Symptoms Endocrine: reports: No Symptoms Hematology/Lymphatic: reports: No Symptoms Psychiatric: reports: No Symptoms Physical Examination Vital Signs: Vital Signs Temperature 99.8 F H 06/15/18 16:15 Pulse Rate 109 H 06/15/18 17:06 Respiratory Rate 24 H 06/15/18 17:06 Blood Pressure 122/64 06/15/18 17:06 O2 Sat by Pulse Oximetry (%) 98 06/15/18 17:06 Constitutional: Yes: No Distress, Calm Eyes: Yes: Conjunctiva Clear HENT: Yes: Atraumatic Neck: Yes: Supple Cardiovascular: Yes: Tachycardia Respiratory: Yes: Regular, Diminished, On Nasal O2, Tachypnea Gastrointestinal: Yes: Normal Bowel Sounds, Soft Musculoskeletal: Yes: Muscle Weakness Extremities: Yes: WNL Edema: No Neurological: Yes: Alert, Oriented Psychiatric: Yes: Alert, Oriented Labs: CBC, BMP 06/15/18 14:15 06/15/18 14:15 Imaging - Results Chest X-ray: Report Reviewed Problem List - Problems (1) Sepsis Assessment/Plan: -WBC 9.8 -febrile -LA 1.9 -BC and UC pending -ID consult placed -IV hydration -received Vanco and Zosyn in ER Code(s): A41.9 - SEPSIS, UNSPECIFIED ORGANISM Qualifiers: Sepsis type: sepsis due to unspecified organism Qualified Code(s): A41.9 - Sepsis, unspecified organism (2) Lung cancer Assessment/Plan: -Oncology consulted -CXR shows extensive metastatic lesions in both lung robertson with some minimal fluid and atelectasis at the right base -keep SpO2 >90% -prednisone -bronchodilator -O2 via NC Code(s): C34.90 - MALIGNANT NEOPLASM OF UNSP PART OF UNSP BRONCHUS OR LUNG Qualifiers: Laterality: unspecified laterality Lung location: unspecified part of lung Qualified Code(s): C34.90 - Malignant neoplasm of unspecified part of unspecified bronchus or lung (3) THIAGO (acute kidney injury) Assessment/Plan: -BUN/Cr 25/1.3 -IV hydration -monitor renal function Code(s): N17.9 - ACUTE KIDNEY FAILURE, UNSPECIFIED (4) HTN (hypertension) Assessment/Plan: -Almopdipine and Cozaar -low Na diet Code(s): I10 - ESSENTIAL (PRIMARY) HYPERTENSION Assessment/Plan see problem list dvt ppx
[2018-06-15 18:37] VITALS: BMI 31.3
--- NOTE | 2018-06-15 20:37 | PN ---
Progress Note (short form) - Note Progress Note: PAtient seen and examined 73 y/o with metastatic squamous cell lung cancer, s/p surgery, adjuvant chemotherapy. Developed mediastinal recurrence--s/p carbo/taxol/RT, more recently s/p RT to rt. supraclavicular area. Now with b/l lung mets. s/p gemzar , x 3cycles with progression of disease. Just started nivolumab Comes in from PMDs office with weakness and fever Also with RA AFVSS Cor: RSR, No murmurs, No gallops Lungs: b/l coarse breath sounds Abd: Soft, Normal bowel sounds, No organomegaly Ext:No significant edema Labs/meds reviewed A//P 73 y/o with metastatic squamous cell lung cancer, s/p surgery, adjuvant chemotherapy. Developed mediastinal recurrence--s/p carbo/taxol/RT, more recently s/p RT to rt. supraclavicular area. Now with b/l lung mets. s/p gemzar , x 3cycles with progression of disease. Just started nivolumab Q 2weeks on 06/07/18 Comes in from PMDs office with weakness and fever Also with RA ? post obstructive pneumonia vs pneumonitis Nebs/O2/rocephin/prednisone 25 mg daily RA--on sulfasalazine
[2018-06-15] MEDS: HEPARIN NA (PORCINE) 5,000 UNITS/ML 1ML VIAL SQ SCH (21:56)
[2018-06-15] MEDS: BUDESONIDE/FORMETEROL FUMARATE 160/4.5 mcg INHALER IH SCH (21:56)
[2018-06-15] MEDS: CEFUROXIME AXETIL 500 MG TABLET PO SCH (21:57)
[2018-06-15] MEDS ORDERED: ALPRAZolam 0.25 MG TABLET PO PRN (22:09)
[2018-06-16 06:38] LABS: URINE APPEARANCE CLEAR; URINE BILIRUBIN NEGATIVE (NEGATIVE); URINE COLOR YELLOW; URINE GLUCOSE (UA) NEGATIVE (NEGATIVE); URINE KETONE NEGATIVE (NEGATIVE); URINE LEUK ESTERASE NEGATIVE (NEGATIVE); URINE NITRITE NEGATIVE (NEGATIVE); URINE PROTEIN NEGATIVE (NEGATIVE); URINE UROBILINOGEN 0.2 mg/dL (0.2-1.0)
[2018-06-16 07:30] LABS: BASO % 0.1 % (0-2.0); EOS % 1.7 % (0-4.5); HEMATOCRIT 22.8 % (32.4-45.2); HEMOGLOBIN 8.6 GM/dL (10.7-15.3); LYMPH % 19.6 % (8-40); MCH 35.8 pg (25.7-33.7); MCHC 37.5 g/dl (32.0-36.0); MEAN CELL VOLUME 95.5 fl (80-96); MEAN PLT VOLUME 7.8 fl (7.5-11.1); MONO % 4.7 % (3.8-10.2); NEUT % 73.9 % (42.8-82.8); PLATELET COUNT 187 K/MM3 (134-434); RBC 2.39 M/mm3 (3.60-5.2); RDW 21.2 % (11.6-15.6)
[2018-06-16 07:56] LABS: ALBUMIN 2.4 g/dl (3.4-5.0); ALK PHOS 67 U/L (45-117); ANION GAP 8 MMOL/L (8-16); BILIRUBIN,TOTAL 1.3 mg/dL (0.2-1); BLOOD UREA NITROGEN 23 mg/dL (7-18); CALCIUM 8.3 mg/dL (8.5-10.1); CHLORIDE 102 mmol/L (98-107); CHOLESTEROL 138 mg/dL (50-200); CO2 25 mmol/L (21-32); GLUCOSE,RANDOM 101 mg/dL (74-106); HDL CHOLESTEROL 37 mg/dL (40-60); MAGNESIUM 1.3 mg/dL (1.8-2.4); PHOSPHOROUS 3.6 mg/dL (2.5-4.9); POTASSIUM 3.6 mmol/L (3.5-5.1); SGOT/AST 24 U/L (15-37); SGPT/ALT 17 U/L (13-61); SODIUM 136 mmol/L (136-145); TOT PROT 5.8 g/dl (6.4-8.2); TRIGLYCERIDES 143 mg/dL (0-150)
[2018-06-16] MEDS ORDERED: ATOVAQUONE 750 MG/5 ML (UNIT-DOSE PACKAGING) PO SCH (08:00)
[2018-06-16] MEDS ORDERED: predniSONE 20 MG TABLET (UD) ONE (09:23)
[2018-06-16] MEDS ORDERED: PT OWN MED DRAWER 7, Y5N ONE ×2 (09:24→17:13)
[2018-06-16] MEDS: predniSONE 5 MG, predniSONE 20 MG PO SCH (09:47)
[2018-06-16] MEDS: CEFUROXIME AXETIL 500 MG TABLET PO SCH (09:48)
[2018-06-16] MEDS: HEPARIN NA (PORCINE) 5,000 UNITS/ML 1ML VIAL SQ SCH ×2 (09:49→21:22)
[2018-06-16] MEDS: amLODIPine BESYLATE 5 MG TABLET (FP) PO SCH (09:49)
[2018-06-16] MEDS: LOSARTAN POTASSIUM 50 MG TABLET (FP) PO SCH (09:49)
[2018-06-16] MEDS: PANTOPRAZOLE 40 MG TABLET (FP) PO SCH (09:49)
[2018-06-16] MEDS: BUDESONIDE/FORMETEROL FUMARATE 160/4.5 mcg INHALER IH SCH ×3 (09:50→21:22)
[2018-06-16] MEDS: ATOVAQUONE 750 MG/5 ML (UNIT-DOSE PACKAGING) PO SCH (09:51)
[2018-06-16] MEDS ORDERED: predniSONE 5 MG TABLET (UD) PO SCH ×2 (10:00)
[2018-06-16] MEDS ORDERED: VALSARTAN 160 MG TABLET (UD) PO SCH (10:00)
[2018-06-16] MEDS ORDERED: ALPRAZolam 0.25 MG TABLET PO SCH (10:00)
[2018-06-16] MEDS ORDERED: SULFAMETHOXAZOLE/TRIMETHOPRIM 800MG/160MG D.S. TABLET PO SCH (10:00)
[2018-06-16] MEDS: FEBUXOSTAT 40 MG TAB PO SCH ×2 (12:38→12:42)
--- NOTE | 2018-06-16 12:50 | PN ---
Progress Note, Physician History of Present Illness: no complaints - Current Medication List Current Medications: Active Medications Albuterol Sulfate (Ventolin 0.083% Nebulizer Soln -) 1 amp NEB Q6H PRN PRN Reason: SHORT OF BREATH/WHEEZING Alprazolam (Xanax -) 0.25 mg PO BID PRN PRN Reason: Dyspnea Last Admin: 06/15/18 23:06 Dose: 0.25 mg Amlodipine Besylate (Norvasc -) 5 mg PO DAILY [facility] Last Admin: 06/16/18 09:49 Dose: 5 mg Atovaquone (Mepron -) 1,500 mg PO DAILY@0800 [facility] Last Admin: 06/16/18 09:51 Dose: 1,500 mg Budesonide/Formoterol Fumarate (Symbicort 160/4.5mcg -) 2 puff IH BID [facility] Last Admin: 06/16/18 12:42 Dose: Not Given Cefuroxime Axetil (Ceftin -) 500 mg PO BID [facility] Last Admin: 06/16/18 09:48 Dose: 500 mg Febuxostat (Uloric -) 40 mg PO DAILY [facility] Last Admin: 06/16/18 12:42 Dose: Not Given Heparin Sodium (Porcine) (Heparin -) 5,000 unit SQ BID [facility] Last Admin: 06/16/18 09:49 Dose: 5,000 unit Losartan Potassium (Cozaar -) 50 mg PO DAILY [facility] Last Admin: 06/16/18 09:49 Dose: 50 mg Pantoprazole Sodium (Protonix -) 40 mg PO DAILY [facility] Last Admin: 06/16/18 09:49 Dose: 40 mg Prednisone 5 mg/ Prednisone 20 (mg) 25 mg PO DAILY [facility] Last Admin: 06/16/18 09:47 Dose: 25 mg Sulfasalazine (Azulfidine En-Tabs -) 500 mg PO DAILY [facility] Last Admin: 06/16/18 12:41 Dose: Not Given Zolpidem Tartrate (Ambien -) 5 mg PO HS PRN PRN Reason: INSOMNIA Last Admin: 06/15/18 23:06 Dose: 5 mg - Objective Vital Signs: Vital Signs Temperature 98.3 F 06/16/18 08:49 Pulse Rate 118 H 06/16/18 08:49 Respiratory Rate 18 06/16/18 08:49 Blood Pressure 135/68 06/16/18 08:49 O2 Sat by Pulse Oximetry (%) 97 06/16/18 08:49 Cardiovascular: Yes: Regular Rate and Rhythm Respiratory: Yes: Regular, CTA Bilaterally Gastrointestinal: Yes: Normal Bowel Sounds, Soft Labs: CBC, BMP 06/16/18 05:45 06/16/18 05:45 INR, PTT INR 1.25 (0.83-1.09) H 06/15/18 14:15 Assessment/Plan - Problems (1) Sepsis Assessment/Plan: -WBC 9.8 -febrile--resolved -LA 1.9 -BC and UC pending -ID consult placed -IV hydration -Abx per ID Code(s): A41.9 - SEPSIS, UNSPECIFIED ORGANISM Qualifiers: Sepsis type: sepsis due to unspecified organism Qualified Code(s): A41.9 - Sepsis, unspecified organism (2) Lung cancer Assessment/Plan: -Oncology consulted -CXR shows extensive metastatic lesions in both lung robertson with some minimal fluid and atelectasis at the right base -keep SpO2 >90% -prednisone -bronchodilator -O2 via NC Code(s): C34.90 - MALIGNANT NEOPLASM OF UNSP PART OF UNSP BRONCHUS OR LUNG Qualifiers: Laterality: unspecified laterality Lung location: unspecified part of lung Qualified Code(s): C34.90 - Malignant neoplasm of unspecified part of unspecified bronchus or lung (3) THIAGO (acute kidney injury) Assessment/Plan: -BUN/Cr 25/1.3 -IV hydration -monitor renal function Code(s): N17.9 - ACUTE KIDNEY FAILURE, UNSPECIFIED (4) HTN (hypertension) Assessment/Plan: -Almopdipine and Cozaar -low Na diet Code(s): I10 - ESSENTIAL (PRIMARY) HYPERTENSION
--- NOTE | 2018-06-16 13:09 | PN ---
Progress Note (short form) - Note Progress Note: ID consult dictated imp/reccd metastatic squamous cell ca fever- unclear etiology just started nivolumab 06/07 ?fever due to chemo ?pneumonia-cough unchanged not neutropenic send influenza swab history of RA- on prednisone Problem List - Problems (1) Fever Code(s): R50.9 - FEVER, UNSPECIFIED (2) Lung cancer Code(s): C34.90 - MALIGNANT NEOPLASM OF UNSP PART OF UNSP BRONCHUS OR LUNG Qualifiers: Laterality: unspecified laterality Lung location: unspecified part of lung Qualified Code(s): C34.90 - Malignant neoplasm of unspecified part of unspecified bronchus or lung (3) Rheumatoid arthritis Code(s): M06.9 - RHEUMATOID ARTHRITIS, UNSPECIFIED
--- NOTE | 2018-06-16 15:07 | PN ---
Progress Note (short form) - Note Progress Note: PULMONARY CONSULTATION DICTATED 06/16/18 IMP FEVER ?ETIOLOGY,? INFECTIOUS,? MEDS,?TUMOR FEVER METASTATIC BRONCHOGENIC CA(SQUAMOUS CELL) COPD O2 DEPENDENT RA ANEMIA THIAGO PLAN ABX PER ID O2 INHALED BRONCHODILATORS CULTURES IVF MONITOR H+H,LYTES,RENAL FUNCTION NORMAL TRANSFUSION THRESHOLD DR KERR Problem List - Problems (1) Lung cancer Code(s): C34.90 - MALIGNANT NEOPLASM OF UNSP PART OF UNSP BRONCHUS OR LUNG Qualifiers: Laterality: unspecified laterality Lung location: unspecified part of lung Qualified Code(s): C34.90 - Malignant neoplasm of unspecified part of unspecified bronchus or lung (2) Diabetes Code(s): E11.9 - TYPE 2 DIABETES MELLITUS WITHOUT COMPLICATIONS (3) Fever Code(s): R50.9 - FEVER, UNSPECIFIED (4) Rheumatoid arthritis Code(s): M06.9 - RHEUMATOID ARTHRITIS, UNSPECIFIED (5) SCC (squamous cell carcinoma of lung) Code(s): C34.90 - MALIGNANT NEOPLASM OF UNSP PART OF UNSP BRONCHUS OR LUNG (6) SOB (shortness of breath) Code(s): R06.02 - SHORTNESS OF BREATH (7) Stage 4 lung cancer Code(s): C34.90 - MALIGNANT NEOPLASM OF UNSP PART OF UNSP BRONCHUS OR LUNG (8) HTN (hypertension) Code(s): I10 - ESSENTIAL (PRIMARY) HYPERTENSION
--- NOTE | 2018-06-16 15:17 | CONS ---
DATE OF CONSULTATION: 06/16/2018 REQUESTING PHYSICIAN: Lior Toro M.D. 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 She was recently in the hospital from May 23 to June 01 with fever. At that time she was treated for bronchitis/pneumonia and she also had a port placed. She was discharged home on the . She was started on immunotherapy with nivolumab. She was seen yesterday at her primary care's office. She was very sleepy and sitting in a chair. He felt she was very weak. He sent her to the ER where she was noted to have fever. She denies any symptoms whatsoever, denies any chills. She denies any nausea, or vomiting. She reports her cough is unchanged in baseline. After her last admission she was discharged on home oxygen. She has no nausea, vomiting or diarrhea. She feels well. She received Zosyn in the emergency room and I am asked to see her for further evaluation. PAST MEDICAL HISTORY: Her past medical history is notable for history of rheumatoid arthritis on prednisone. She has a history of squamous cell carcinoma, status post lobectomy with mediastinal recurrence and multiple nodules. She has had radiation to her right neck and is now just been started on the new immunotherapy and she recently had this port placed. She has a history of hypertension as well. SOCIAL HISTORY: She is a former smoker. There was no history of any substance use. She is independent. She lives alone. She has no sick contacts and she has not traveled. ALLERGIES: She is allergic to ASPIRIN. She is not allergic to penicillin. MEDICATIONS: Her medications at home include: 1. Ambien. 2. Diovan. 3. Ultram. 4. Prednisone, which she states she is taking 20 mg daily at this point. 5. Protonix. 6. Losartan. 7. Uloric. 8. Symbicort inhaler. 9. Atovaquone. 10. Norvasc. 11. Xanax. 12. Ventolin inhaler. REVIEW OF SYSTEMS: She has no complaints whatsoever. PHYSICAL EXAMINATION: Vitals: On physical exam temperature is 98.3, pulse is 118, blood pressure 135/68, respiratory rate is 18. HEENT: She is normocephalic, atraumatic. Her eyes are anicteric. She has no thrush. Neck: Her neck is supple. Port site is without any erythema. Lungs: Are clear to auscultation. She had diminished breath sounds at the bases. Heart: Is regular rate and rhythm. Abdomen: Soft, nontender. Extremities: Are without edema. LABORATORY DATA: White count is 6, hemoglobin is 8.6, platelets are 187. BUN is 23 and creatinine 1. LFTs are notable for a bilirubin of 1.3. Urinalysis was negative and blood and urine cultures are pending. Chest x-ray is essentially unchanged shows multiple nodules in both lungs. SUMMARY: 1. In summary, this is a 73-year-old woman status post immunotherapy June 07, admitted with a fever without a source. She is not neutropenic. Her cough is unchanged. I am not sure she has pneumonia. I would treat her with ceftriaxone at this time and send an influenza swab and follow up cultures. Incidence of fever is quite high with her immunotherapy, but I would await cultures before making the diagnosis. 2. History of rheumatoid arthritis on prednisone. EVAN FLORES M.D. [id number]
[2018-06-16] MEDS ORDERED: DEXTROSE 5%-WATER - 50 ML IVPB ONE (15:50)
[2018-06-16] MEDS ORDERED: cefTRIAXone SODIUM 1 GM VIAL ONE (15:50)
[2018-06-16] MEDS: CEFTRIAXONE 1 GM in DEXTROSE 5%-WATER - 50 ML IVPB SCH (16:16)
--- NOTE | 2018-06-16 16:27 | CONS ---
DATE OF CONSULTATION: 06/16/2018 PULMONARY CONSULTATION REFERRING PHYSICIAN: Lior Toro MD HISTORY OF PRESENT ILLNESS: The patient is a 73-year-old black female known to me from previous hospitalization. Past medical events of metastatic squamous cell carcinoma of the lung diagnosed in 2014, status post wedge resections, treated with chemo, carbo-Taxol 3 cycles, status post mediastinal recurrence with multiple pulmonary nodules, maintained on Gemzar; hypertension; rheumatoid arthritis; and COPD, on O2. She was admitted to [facility] with generalized weakness. The patient recently underwent her last chemotherapy on June 06. Apparently, she went to see her PMD with a complaint of weakness. Of note, her last chemo was The patient denies any complaint of chest pain, nausea, vomiting, diaphoresis or hemoptysis. On admission, she was noted to be febrile to 102.6. She was evaluated by Dr. Canchola. She was placed on broad-spectrum antibiotics and transferred to the medical floor for further management. The patient denies any hemoptysis. No recent travel. Of note, she was hospitalized on May 23 secondary to chills, cough and swelling of the left wrist. Previous hospitalization, she was placed on antibiotic therapy and inhaled bronchodilators with good response and was discharged home in stable condition. The patient has a history of tobacco use for many years. She quit a few years ago. There is no history of occupational exposure to chemicals or fumes. She states that she uses home O2 as well as inhaled bronchodilator. PAST MEDICAL HISTORY: Again, this includes lung CA, squamous cell type, status post resection, postoperatively treated with chemo, status post recurrence, currently on Gemzar; rheumatoid arthritis; COPD; hypertension. REVIEW OF SYSTEMS: Positive weakness. No chest pain, no palpitations, no shortness of breath. Occasional cough. Positive fever. No chills, no hemoptysis, no abdominal pain. CURRENT MEDICATIONS: Prednisone, Symbicort, Cozaar, ceftriaxone, heparin, UIoric, Mepron, Ambien, Xanax, albuterol, Norvasc, Protonix and Azulfidine. PHYSICAL EXAMINATION: General: The patient is well-developed, well-nourished female who is awake and alert, in no acute distress. Vital Signs: She is currently afebrile, blood pressure 135/68, respiratory rate 18, and O2 saturation is 97% on 2 L. HEENT: Normocephalic, atraumatic. Neck: Supple. Heart: Regular, S1, S2. Chest: Clear. Abdomen: Soft. Bowel sounds are present. Extremities: No cyanosis or edema. DIAGNOSTIC STUDIES: WBC 6, hemoglobin 8.6, hematocrit 22.8, platelet count 187, 000. INR is 1.25. Blood gas shows a pH of 7.45, PCO2 of 38, PO2 of 50, bicarbonate 25, saturation 87% on unknown quantity of oxygen. BUN 23, creatinine 1, bilirubin 1.3. A chest x-ray shows multiple pulmonary nodules. IMPRESSION: 1. Fever, etiology to be determined. Rule out possible infectious, possible pneumonia, possibly secondary to chemotherapy, possible tumor fever. 2. Metastatic bronchogenic carcinoma, squamous cell type. 3. Chronic obstructive pulmonary disease, oxygen dependent. 4. Rheumatoid arthritis. 5. Anemia. PLAN: Antibiotics as per Infectious Disease. Obtain cultures. Supplemental O2 , inhaled bronchodilators. Monitor hemoglobin and hematocrit, renal function. Normal transfusion threshold. GLORIA KERR M.D. [id number] MTDD
--- NOTE | 2018-06-16 16:34 | EKG ---
Test Reason : Blood Pressure : / mmHG Vent. Rate : 132 BPM Atrial Rate : 132 BPM P-R Int : 138 ms QRS Dur : 074 ms QT Int : 294 ms P-R-T Axes : 044 034 077 degrees QTc Int : 435 ms SINUS TACHYCARDIA OTHERWISE NORMAL ECG WHEN COMPARED WITH ECG OF 23-MAY-2018 09:30, T WAVE AMPLITUDE HAS INCREASED IN ANTERIOR LEADS Confirmed by CARLOS FERRIS MD ([id number]) on 06/16/2018 4:33:46 PM Referred By: Confirmed By:CARLOS FERRIS MD
[2018-06-16] MEDS ORDERED: ZOLPIDEM TARTRATE 5 MG TABLET PO PRN ×3 (16:48→22:04)
--- NOTE | 2018-06-16 21:57 | PN ---
Progress Note, Physician Chief Complaint: generalized weakness History of Present Illness: Feeling a little better. able to walk to bathroom without SOB - Current Medication List Current Medications: Active Medications Albuterol Sulfate (Ventolin 0.083% Nebulizer Soln -) 1 amp NEB Q6H PRN PRN Reason: SHORT OF BREATH/WHEEZING Alprazolam (Xanax -) 0.5 mg PO Q12H PRN PRN Reason: Dyspnea Amlodipine Besylate (Norvasc -) 5 mg PO DAILY [facility] Last Admin: 06/16/18 09:49 Dose: 5 mg Atovaquone (Mepron -) 1,500 mg PO DAILY@0800 [facility] Last Admin: 06/16/18 09:51 Dose: 1,500 mg Budesonide/Formoterol Fumarate (Symbicort 160/4.5mcg -) 2 puff IH BID [facility] Last Admin: 06/16/18 21:22 Dose: Not Given Febuxostat (Uloric -) 40 mg PO DAILY [facility] Last Admin: 06/16/18 12:42 Dose: Not Given Heparin Sodium (Porcine) (Heparin -) 5,000 unit SQ BID [facility] Last Admin: 06/16/18 21:22 Dose: Not Given Ceftriaxone Sodium 1 gm/ (Dextrose) 50 mls @ 100 mls/hr IVPB DAILY [facility]; Protocol Last Admin: 06/16/18 16:16 Dose: 100 mls/hr Losartan Potassium (Cozaar -) 50 mg PO DAILY [facility] [place] Last Admin: 06/16/18 09:49 Dose: 50 mg Pantoprazole Sodium (Protonix -) 40 mg PO DAILY [facility] Last Admin: 06/16/18 09:49 Dose: 40 mg Prednisone 5 mg/ Prednisone 20 (mg) 25 mg PO DAILY [facility] Last Admin: 06/16/18 09:47 Dose: 25 mg Sulfasalazine (Azulfidine En-Tabs -) 500 mg PO DAILY [facility] Last Admin: 06/16/18 12:41 Dose: Not Given Zolpidem Tartrate (Ambien -) 5 mg PO HS PRN PRN Reason: INSOMNIA - Objective Vital Signs: Vital Signs Temperature 98.3 F 06/16/18 17:10 Pulse Rate 99 H 06/16/18 17:10 Respiratory Rate 18 06/16/18 17:10 Blood Pressure 104/69 06/16/18 17:10 O2 Sat by Pulse Oximetry (%) 97 06/16/18 08:49 Constitutional: Yes: Well Nourished Eyes: Yes: Conjunctiva Clear Cardiovascular: Yes: Regular Rate and Rhythm Respiratory: Yes: Regular, CTA Bilaterally Gastrointestinal: Yes: Soft Edema: No Labs: CBC, BMP 06/16/18 05:45 06/16/18 05:45 INR, PTT INR 1.25 (0.83-1.09) H 06/15/18 14:15 Assessment/Plan 73F with metastatic squamous cell lung cancer, s/p surgery, adjuvant chemotherapy, with subsequent mediastinal recurrence s/p carbo/taxol/RT, now with b/l lung mets. s/p gemzar, x 3cycles with progression of disease. On nivolumab since 06/07/18. Admitted with generalized weakness. Found to be febrile. No source so far. On broad spectrum abx. ANC normal. Will continue to follow.
[2018-06-16] MEDS: ZOLPIDEM TARTRATE 5 MG TABLET PO PRN (23:34)
[2018-06-16] MEDS: ALPRAZolam 0.25 MG TABLET PO PRN (23:34)
[2018-06-17 08:27] LABS: BASO % 0.2 % (0-2.0); EOS % 2.3 % (0-4.5); HEMATOCRIT 22.8 % (32.4-45.2); HEMOGLOBIN 8.5 GM/dL (10.7-15.3); LYMPH % 23.1 % (8-40); MCH 35.6 pg (25.7-33.7); MCHC 37.2 g/dl (32.0-36.0); MEAN CELL VOLUME 95.5 fl (80-96); MEAN PLT VOLUME 7.8 fl (7.5-11.1); NEUT % 69.4 % (42.8-82.8); PLATELET COUNT 185 K/MM3 (134-434); RBC 2.39 M/mm3 (3.60-5.2); RDW 20.2 % (11.6-15.6); WHITE BLOOD COUNT 6.5 K/mm3 (4.0-10.0)
[2018-06-17] MEDS ORDERED: predniSONE 20 MG TABLET (UD) ONE (10:02)
[2018-06-17] MEDS ORDERED: cefTRIAXone SODIUM 1 GM VIAL ONE (10:03)
[2018-06-17] MEDS ORDERED: PT OWN MED DRAWER 7, Y5N ONE (10:03)
--- NOTE | 2018-06-17 10:03 | CONSULT ---
Consult Consult Specialty:: endocrine Referred by:: dr.smitha sousa Reason for Consultation:: dm 2 - History of Present Illness Chief Complaint: weakness sudden feeling History of Present Illness: 73 y/o female with past medical history of dm 2, Lung CA, HTN. Patient presented to ER from PMD office for weakness. she felt was unaware suddenly got weak and fell asleep,she was noted to have low oxygen saturation.On examination patient denies weakness and states she "fell asleep" while waiting to see PMD. In ER she was found to be tachycardic and febrile with temp 102.6F. she has not been compliant with diabetic management,feels blood sugars she doesnt have diabetes,and does not want medication. - Past Medical History Cardio/Vascular: Yes: HTN Pulmonary: Yes: Other (Lung cancer --stage IIB . squamous cell) Rheumatology: Yes: Other (rheumatoid arthritis) - Alcohol/Substance Use Hx Alcohol Use: No - Smoking History Smoking history: Former smoker Have you smoked in the past 12 months: No Aproximately how many cigarettes per day: 10 If you are a former smoker, when did you quit?: 12/16/14 - Social History ADL: Independent History of Recent Travel: No Home Medications - Allergies Allergies/Adverse Reactions: Allergies Allergy/AdvReac Type Severity Reaction Status Date / Time aspirin AdvReac Mild Verified 06/15/18 13:48 - Home Medications Home Medications: Ambulatory Orders Albuterol Sulfate Inhaler - [Ventolin Hfa Inhaler -] 2 inh PO Q6H 06/15/18 Alprazolam [Xanax] 0.25 mg PO DAILY 06/15/18 Amlodipine Besylate [Norvasc -] 5 mg PO DAILY 06/15/18 Atovaquone 750 mg PO DAILY 06/15/18 Azithromycin [Zithromax -] 250 mg PO DAILY 06/15/18 Blood-Glucose Meter [Freestyle Lite Meter] 1 each [facility] 06/15/18 Budesonide/Formeterol Fumarate [SYMBICORT 160/4.5mcg -] 1 inh PO BID 06/15/18 Cefuroxime Axetil [Ceftin -] 500 mg PO Q12H 06/15/18 Febuxostat [Uloric -] 40 mg PO DAILY 06/15/18 Losartan Potassium [Cozaar -] 50 mg PO DAILY 06/15/18 Methotrexate [Mexate -] 2.5 mg PO Q7D 06/15/18 Pantoprazole Sodium [Protonix -] 40 mg PO DAILY 06/15/18 Prednisolone [Millipred] 5 mg PO DAILY 06/15/18 Sulfamethoxazole/Trimethoprim [Sulfamethoxazole-Tmp Ds Tablet] 1 each PO DAILY 06/15/18 Sulfasalazine [Sulfasalazine Dr] 500 mg PO DAILY 06/15/18 Tramadol HCl [Ultram] 50 mg PO DAILY 06/15/18 Valsartan [Diovan] 160 mg PO DAILY 06/15/18 Zolpidem Tartrate [Ambien] 10 mg PO DAILY 06/15/18 Review of Systems - Review of Systems Constitutional: reports: Lethargy, Weakness Eyes: reports: No Symptoms HENT: reports: No Symptoms Neck: reports: No Symptoms Cardiovascular: reports: Shortness of Breath Respiratory: reports: Exercise Intolerance, SOB on Exertion Gastrointestinal: reports: Bloating Genitourinary: reports: No Symptoms Musculoskeletal: reports: No Symptoms, Muscle Cramps, Muscle Weakness Neurological: reports: Weakness Endocrine: reports: Unexplained Weight Gain Physical Exam Vital Signs: Vital Signs Temperature 98 F 06/17/18 09:24 Pulse Rate 101 H 06/17/18 09:24 Respiratory Rate 18 06/17/18 09:24 Blood Pressure 124/72 06/17/18 09:24 O2 Sat by Pulse Oximetry (%) 98 06/16/18 21:00 Constitutional: Yes: Calm Eyes: Yes: EOM Intact HENT: Yes: Normocephalic Neck: Yes: Trachea Midline, Thyromegaly Cardiovascular: Yes: Tachycardia Respiratory: Yes: On Nasal O2, SOB, Tachypnea Gastrointestinal: Yes: Normal Bowel Sounds ...Rectal Exam: Yes: Deferred Renal/: Yes: WNL Musculoskeletal: Yes: WNL Extremities: Yes: WNL Neurological: Yes: Alert, Oriented Labs: CBC, BMP 06/17/18 07:30 06/16/18 05:45 Problem List - Problems (1) Sepsis Code(s): A41.9 - SEPSIS, UNSPECIFIED ORGANISM Qualifiers: Sepsis type: sepsis due to unspecified organism Qualified Code(s): A41.9 - Sepsis, unspecified organism (2) Lung cancer Code(s): C34.90 - MALIGNANT NEOPLASM OF UNSP PART OF UNSP BRONCHUS OR LUNG Qualifiers: Laterality: unspecified laterality Lung location: unspecified part of lung Qualified Code(s): C34.90 - Malignant neoplasm of unspecified part of unspecified bronchus or lung (3) Cellulitis of left hand Code(s): L03.114 - CELLULITIS OF LEFT UPPER LIMB (4) Chills (without fever) Code(s): R68.83 - CHILLS (WITHOUT FEVER) (5) Diabetes Code(s): E11.9 - TYPE 2 DIABETES MELLITUS WITHOUT COMPLICATIONS (6) Encounter for monitoring cardiotoxic drug therapy Code(s): Z51.81 - ENCOUNTER FOR THERAPEUTIC DRUG LEVEL MONITORING; Z79.899 - OTHER ACADEMIC MANAGER (CURRENT) DRUG THERAPY Assessment/Plan Current Active Problems DM 2 COMPLIANCE,/DENIAL Sepsis (Acute) Lung cancer (Chronic) HTN ASHD, HLD Abnormal Lab Results 06/17/18 07:30 RBC 2.39 L Hgb 8.5 L Hct 22.8 L MCH 35.6 H MCHC 37.2 H RDW 20.2 H Laboratory Results - last 24 hr 06/16/18 06/16/18 06/17/18 12:01 21:31 06:22 WBC RBC Hgb Hct MCV MCH MCHC RDW Plt Count MPV Absolute Neuts (auto) Neutrophils % Lymphocytes % Monocytes % Eosinophils % Basophils % Nucleated RBC % POC Glucometer 131 220 149 06/17/18 07:30 WBC 6.5 RBC 2.39 L Hgb 8.5 L Hct 22.8 L MCV 95.5 MCH 35.6 H MCHC 37.2 H RDW 20.2 H Plt Count 185 MPV 7.8 Absolute Neuts (auto) 4.5 Neutrophils % 69.4 Lymphocytes % 23.1 Monocytes % 5.0 Eosinophils % 2.3 Basophils % 0.2 Nucleated RBC % 0 POC Glucometer Laboratory Tests 06/15/18 06/16/18 06/16/18 14:15 05:45 05:45 VBG pH 7.45 H POC VBG pCO2 38.0 L POC VBG pO2 54.5 H VBG HCO3 25.9 VBG O2 Sat (Marie) 87.1 H VBG Base Excess 2.3 H Sodium 136 Potassium 3.6 Chloride 102 Carbon Dioxide 25 Anion Gap 8 BUN 23 H Creatinine 1.0 Creat Clearance w eGFR 54.50 Hemoglobin A1c % 8.2 H PLAN: METFORMIN 500MG BID JANUVIA 50MG DAILY HOME OXYGEN PORTABLE UNITS BGM BID AC
[2018-06-17] MEDS ORDERED: DEXTROSE 5%-WATER - 50 ML IVPB ONE (10:04)
[2018-06-17] MEDS: predniSONE 5 MG, predniSONE 20 MG PO SCH (10:07)
[2018-06-17] MEDS: amLODIPine BESYLATE 5 MG TABLET (FP) PO SCH (10:09)
[2018-06-17] MEDS: ATOVAQUONE 750 MG/5 ML (UNIT-DOSE PACKAGING) PO SCH (10:09)
[2018-06-17] MEDS: PANTOPRAZOLE 40 MG TABLET (FP) PO SCH (10:09)
[2018-06-17] MEDS: LOSARTAN POTASSIUM 50 MG TABLET (FP) PO SCH (10:09)
[2018-06-17] MEDS: CEFTRIAXONE 1 GM in DEXTROSE 5%-WATER - 50 ML IVPB SCH (10:10)
[2018-06-17] MEDS: HEPARIN NA (PORCINE) 5,000 UNITS/ML 1ML VIAL SQ SCH ×2 (10:10→21:22)
[2018-06-17] MEDS: BUDESONIDE/FORMETEROL FUMARATE 160/4.5 mcg INHALER IH SCH ×2 (10:10→21:22)
[2018-06-17] MEDS: FEBUXOSTAT 40 MG TAB PO SCH (10:10)
--- NOTE | 2018-06-17 12:42 | PN ---
Progress Note, Physician History of Present Illness: pulmonary alert,no distress,+ cough,-sob,afebrile - Current Medication List Current Medications: Active Medications Albuterol Sulfate (Ventolin 0.083% Nebulizer Soln -) 1 amp NEB Q6H PRN PRN Reason: SHORT OF BREATH/WHEEZING Alprazolam (Xanax -) 0.5 mg PO Q12H PRN PRN Reason: Dyspnea Last Admin: 06/16/18 23:34 Dose: 0.5 mg Amlodipine Besylate (Norvasc -) 5 mg PO DAILY [facility] Last Admin: 06/17/18 10:09 Dose: 5 mg Atovaquone (Mepron -) 1,500 mg PO DAILY@0800 [facility] Last Admin: 06/17/18 10:09 Dose: 1,500 mg Budesonide/Formoterol Fumarate (Symbicort 160/4.5mcg -) 2 puff IH BID [facility] Last Admin: 06/17/18 10:10 Dose: Not Given Febuxostat (Uloric -) 40 mg PO DAILY [facility] Last Admin: 06/17/18 10:10 Dose: Not Given Heparin Sodium (Porcine) (Heparin -) 5,000 unit SQ BID [facility] Last Admin: 06/17/18 10:10 Dose: 5,000 unit Ceftriaxone Sodium 1 gm/ (Dextrose) 50 mls @ 100 mls/hr IVPB DAILY [facility]; Protocol Last Admin: 06/17/18 10:10 Dose: 100 mls/hr Insulin Aspart (Novolog Vial Sliding Scale -) 1 vial SQ BIDAC [facility]; Protocol Losartan Potassium (Cozaar -) 50 mg PO DAILY [facility] Last Admin: 06/17/18 10:09 Dose: 50 mg Metformin HCl (Glucophage -) 500 mg PO BID@0700,1630 [facility] Pantoprazole Sodium (Protonix -) 40 mg PO DAILY [facility] Last Admin: 06/17/18 10:09 Dose: 40 mg Prednisone 5 mg/ Prednisone 20 (mg) 25 mg PO DAILY [facility] Last Admin: 06/17/18 10:07 Dose: 25 mg Sitagliptin Phosphate (Januvia -) 50 mg PO DAILY@0700 [facility] Sulfasalazine (Azulfidine En-Tabs -) 500 mg PO DAILY [facility] Last Admin: 06/17/18 10:09 Dose: Not Given Zolpidem Tartrate (Ambien -) 10 mg PO HS PRN PRN Reason: INSOMNIA Last Admin: 06/16/18 23:34 Dose: 10 mg - Objective Vital Signs: Vital Signs Temperature 98 F 06/17/18 09:24 Pulse Rate 101 H 06/17/18 09:24 Respiratory Rate 18 06/17/18 09:24 Blood Pressure 124/72 06/17/18 09:24 O2 Sat by Pulse Oximetry (%) 98 06/16/18 21:00 Constitutional: Yes: Well Nourished, Calm Eyes: Yes: WNL HENT: Yes: WNL Neck: Yes: WNL Cardiovascular: Yes: Regular Rate and Rhythm, S1, S2 Respiratory: Yes: Wheezes (few wheezes) Gastrointestinal: Yes: Normal Bowel Sounds, Soft Extremities: Yes: WNL Edema: No Labs: CBC, BMP 06/17/18 07:30 INR 1.25 (0.83-1.09) H 06/15/18 14:15 Problem List - Problems (1) Lung cancer Code(s): C34.90 - MALIGNANT NEOPLASM OF UNSP PART OF UNSP BRONCHUS OR LUNG Qualifiers: Laterality: unspecified laterality Lung location: unspecified part of lung Qualified Code(s): C34.90 - Malignant neoplasm of unspecified part of unspecified bronchus or lung (2) Diabetes Code(s): E11.9 - TYPE 2 DIABETES MELLITUS WITHOUT COMPLICATIONS (3) Fever Code(s): R50.9 - FEVER, UNSPECIFIED (4) Rheumatoid arthritis Code(s): M06.9 - RHEUMATOID ARTHRITIS, UNSPECIFIED (5) SCC (squamous cell carcinoma of lung) Code(s): C34.90 - MALIGNANT NEOPLASM OF UNSP PART OF UNSP BRONCHUS OR LUNG (6) SOB (shortness of breath) Code(s): R06.02 - SHORTNESS OF BREATH (7) Stage 4 lung cancer Code(s): C34.90 - MALIGNANT NEOPLASM OF UNSP PART OF UNSP BRONCHUS OR LUNG (8) HTN (hypertension) Code(s): I10 - ESSENTIAL (PRIMARY) HYPERTENSION Assessment/Plan IMP FEVER ?ETIOLOGY,? INFECTIOUS,? MEDS,?TUMOR FEVER METASTATIC BRONCHOGENIC CA(SQUAMOUS CELL) COPD O2 DEPENDENT RA ANEMIA THIAGO PLAN ABX PER ID O2 INHALED BRONCHODILATORS IVF MONITOR H+H,LYTES,RENAL FUNCTION NORMAL TRANSFUSION THRESHOLD DR KERR Problem List - Problems (1) Lung cancer Code(s): C34.90 - MALIGNANT NEOPLASM OF UNSP PART OF UNSP BRONCHUS OR LUNG Qualifiers: Laterality: unspecified laterality Lung location: unspecified part of lung Qualified Code(s): C34.90 - Malignant neoplasm of unspecified part of unspecified bronchus or lung (2) Diabetes Code(s): E11.9 - TYPE 2 DIABETES MELLITUS WITHOUT COMPLICATIONS (3) Fever Code(s): R50.9 - FEVER, UNSPECIFIED (4) Rheumatoid arthritis Code(s): M06.9 - RHEUMATOID ARTHRITIS, UNSPECIFIED (5) SCC (squamous cell carcinoma of lung) Code(s): C34.90 - MALIGNANT NEOPLASM OF UNSP PART OF UNSP BRONCHUS OR LUNG (6) SOB (shortness of breath) Code(s): R06.02 - SHORTNESS OF BREATH (7) Stage 4 lung cancer Code(s): C34.90 - MALIGNANT NEOPLASM OF UNSP PART OF UNSP BRONCHUS OR LUNG (8) HTN (hypertension) Code(s): I10 - ESSENTIAL (PRIMARY) HYPERTENSION
[2018-06-17] MEDS: metFORMIN HCL 500 MG TABLET (FP) PO SCH (16:08)
[2018-06-17] MEDS: INSULIN SLIDING SCALE (NOVOLOG) 1 VIAL SQ SCH (16:08)
--- NOTE | 2018-06-17 16:20 | PN ---
Progress Note, Physician - Current Medication List Current Medications: Active Medications Albuterol Sulfate (Ventolin 0.083% Nebulizer Soln -) 1 amp NEB Q6H PRN PRN Reason: SHORT OF BREATH/WHEEZING Alprazolam (Xanax -) 0.5 mg PO Q12H PRN PRN Reason: Dyspnea Last Admin: 06/16/18 23:34 Dose: 0.5 mg Amlodipine Besylate (Norvasc -) 5 mg PO DAILY [facility] Last Admin: 06/17/18 10:09 Dose: 5 mg Atovaquone (Mepron -) 1,500 mg PO DAILY@0800 [facility] Last Admin: 06/17/18 10:09 Dose: 1,500 mg Budesonide/Formoterol Fumarate (Symbicort 160/4.5mcg -) 2 puff IH BID [facility] Last Admin: 06/17/18 10:10 Dose: Not Given Febuxostat (Uloric -) 40 mg PO DAILY [facility] Last Admin: 06/17/18 10:10 Dose: Not Given Heparin Sodium (Porcine) (Heparin -) 5,000 unit SQ BID [facility] Last Admin: 06/17/18 10:10 Dose: 5,000 unit Ceftriaxone Sodium 1 gm/ (Dextrose) 50 mls @ 100 mls/hr IVPB DAILY [facility]; Protocol Last Admin: 06/17/18 10:10 Dose: 100 mls/hr Insulin Aspart (Novolog Vial Sliding Scale -) 1 vial SQ BIDAC [facility]; Protocol Last Admin: 06/17/18 16:08 Dose: Not Given Losartan Potassium (Cozaar -) 50 mg PO DAILY [facility] Last Admin: 06/17/18 10:09 Dose: 50 mg Metformin HCl (Glucophage -) 500 mg PO BID@0700,1630 [facility] Last Admin: 06/17/18 16:08 Dose: 500 mg Pantoprazole Sodium (Protonix -) 40 mg PO DAILY [facility] Last Admin: 06/17/18 10:09 Dose: 40 mg Prednisone 5 mg/ Prednisone 20 (mg) 25 mg PO DAILY [facility] Last Admin: 06/17/18 10:07 Dose: 25 mg Sitagliptin Phosphate (Januvia -) 50 mg PO DAILY@0700 [facility] Sulfasalazine (Azulfidine En-Tabs -) 500 mg PO DAILY [facility] Last Admin: 06/17/18 10:09 Dose: Not Given Zolpidem Tartrate (Ambien -) 10 mg PO HS PRN PRN Reason: INSOMNIA Last Admin: 06/16/18 23:34 Dose: 10 mg - Objective Vital Signs: Vital Signs Temperature 97.6 F 06/17/18 13:36 Pulse Rate 88 06/17/18 13:36 Respiratory Rate 18 06/17/18 13:36 Blood Pressure 94/56 L 06/17/18 13:36 O2 Sat by Pulse Oximetry (%) 98 06/16/18 21:00 Labs: CBC, BMP 06/17/18 07:30 06/16/18 05:45 INR, PTT INR 1.25 (0.83-1.09) H 06/15/18 14:15 Assessment/Plan - Problems (1) Sepsis Assessment/Plan: -WBC 9.8 -afebrile--resolved -LA 1.9 -BC and UC Microbiology 06/15/18 14:15 Blood - Peripheral Venous Blood Culture - Preliminary NO GROWTH OBTAINED AFTER 48 HOURS, INCUBATION TO CONTINUE FOR 3 DAYS. 06/15/18 14:15 Blood - Peripheral Venous Blood Culture - Preliminary NO GROWTH OBTAINED AFTER 48 HOURS, INCUBATION TO CONTINUE FOR 3 DAYS. 06/16/18 05:26 Urine - Urine Clean Catch Urine Culture - Final NO GROWTH OBTAINED -ID consult placed -dc IV hydration -Abx per ID Code(s): A41.9 - SEPSIS, UNSPECIFIED ORGANISM Qualifiers: Sepsis type: sepsis due to unspecified organism Qualified Code(s): A41.9 - Sepsis, unspecified organism (2) Lung cancer Assessment/Plan: -Oncology consulted -CXR shows extensive metastatic lesions in both lung robertson with some minimal fluid and atelectasis at the right base -keep SpO2 >90% -prednisone -bronchodilator -O2 via NC Code(s): C34.90 - MALIGNANT NEOPLASM OF UNSP PART OF UNSP BRONCHUS OR LUNG Qualifiers: Laterality: unspecified laterality Lung location: unspecified part of lung Qualified Code(s): C34.90 - Malignant neoplasm of unspecified part of unspecified bronchus or lung (3) THIAGO (acute kidney injury) Assessment/Plan: -BUN/Cr 25/1.3 -IV hydration -monitor renal function Code(s): N17.9 - ACUTE KIDNEY FAILURE, UNSPECIFIED (4) HTN (hypertension) Assessment/Plan: -Almopdipine and Cozaar -low Na diet Code(s): I10 - ESSENTIAL (PRIMARY) HYPERTENSION
[2018-06-17] MEDS ORDERED: guaiFENesin 600 MG TABLET.ER (FP) PO ONE (21:05)
[2018-06-17] MEDS: ALPRAZolam 0.25 MG TABLET PO PRN (22:39)
[2018-06-17] MEDS: ZOLPIDEM TARTRATE 5 MG TABLET PO PRN (22:39)
[2018-06-18] MEDS: sitaGLIPtin PHOSPHATE 50 MG TABLET PO SCH (06:02)
[2018-06-18] MEDS: metFORMIN HCL 500 MG TABLET (FP) PO SCH ×2 (06:02→16:26)
[2018-06-18] MEDS: INSULIN SLIDING SCALE (NOVOLOG) 1 VIAL SQ SCH ×2 (06:21→16:26)
[2018-06-18 07:48] LABS: ALBUMIN 2.4 g/dl (3.4-5.0); ALK PHOS 72 U/L (45-117); ANION GAP 7 MMOL/L (8-16); BILIRUBIN,TOTAL 0.5 mg/dL (0.2-1); BLOOD UREA NITROGEN 27 mg/dL (7-18); CALCIUM 8.7 mg/dL (8.5-10.1); CHLORIDE 106 mmol/L (98-107); CO2 29 mmol/L (21-32); CREATININE 1.1 mg/dL (0.55-1.3); GLUCOSE,RANDOM 103 mg/dL (74-106); POTASSIUM 4.2 mmol/L (3.5-5.1); SGOT/AST 14 U/L (15-37); SGPT/ALT 15 U/L (13-61); SODIUM 142 mmol/L (136-145); TOT PROT 5.6 g/dl (6.4-8.2)
[2018-06-18 07:54] LABS: BASO % 0.1 % (0-2.0); EOS % 1.4 % (0-4.5); HEMATOCRIT 23.3 % (32.4-45.2); HEMOGLOBIN 7.9 GM/dL (10.7-15.3); LYMPH % 17.6 % (8-40); MCHC 33.8 g/dl (32.0-36.0); MEAN CELL VOLUME 97.6 fl (80-96); MEAN PLT VOLUME 8.4 fl (7.5-11.1); MONO % 5.6 % (3.8-10.2); NEUT % 75.3 % (42.8-82.8); PLATELET COUNT 182 K/MM3 (134-434); RBC 2.38 M/mm3 (3.60-5.2); RDW 20.1 % (11.6-15.6); WHITE BLOOD COUNT 7.2 K/mm3 (4.0-10.0)
[2018-06-18] MEDS ORDERED: PT OWN MED DRAWER 7, Y5N ONE ×2 (08:39→22:31)
[2018-06-18] MEDS: ATOVAQUONE 750 MG/5 ML (UNIT-DOSE PACKAGING) PO SCH (08:46)
[2018-06-18] MEDS ORDERED: cefTRIAXone SODIUM 1 GM VIAL ONE (09:06)
[2018-06-18] MEDS ORDERED: DEXTROSE 5%-WATER - 50 ML IVPB ONE (09:06)
[2018-06-18] MEDS ORDERED: predniSONE 20 MG TABLET (UD) ONE (09:06)
[2018-06-18] MEDS: CEFTRIAXONE 1 GM in DEXTROSE 5%-WATER - 50 ML IVPB SCH ×2 (09:43→09:56)
[2018-06-18] MEDS: LOSARTAN POTASSIUM 50 MG TABLET (FP) PO SCH (09:44)
[2018-06-18] MEDS: PANTOPRAZOLE 40 MG TABLET (FP) PO SCH (09:44)
[2018-06-18] MEDS: predniSONE 5 MG, predniSONE 20 MG PO SCH (09:44)
[2018-06-18] MEDS: HEPARIN NA (PORCINE) 5,000 UNITS/ML 1ML VIAL SQ SCH ×2 (09:45→22:09)
[2018-06-18] MEDS: amLODIPine BESYLATE 5 MG TABLET (FP) PO SCH (09:45)
[2018-06-18] MEDS: BUDESONIDE/FORMETEROL FUMARATE 160/4.5 mcg INHALER IH SCH ×2 (09:46→22:10)
[2018-06-18] MEDS: FEBUXOSTAT 40 MG TAB PO SCH (09:46)
--- NOTE | 2018-06-18 10:13 | PN ---
Progress Note (short form) - Note Progress Note: PULMONARY Denies shortness of breath or chest pain. +minimal nonproductive cough. No fevers recorded. Difficult IV access. Vital Signs Period Temp Pulse Resp BP Sys/Medeiros Pulse Ox Last 24 Hr 97.6 F-98.9 F 88-96 18-22 94-116/56-77 98 Gen: NAD at rest Heart: RRR Lung: decreased breath sounds at the bases Abd: soft, nontender Ext: no edema CBC, BMP 06/18/18 06:48 06/18/18 06:48 Active Medications Albuterol Sulfate (Ventolin 0.083% Nebulizer Soln -) 1 amp NEB Q6H PRN PRN Reason: SHORT OF BREATH/WHEEZING Alprazolam (Xanax -) 0.5 mg PO Q12H PRN PRN Reason: Dyspnea Last Admin: 06/17/18 22:39 Dose: 0.5 mg Amlodipine Besylate (Norvasc -) 5 mg PO DAILY [facility] Last Admin: 06/18/18 09:45 Dose: Not Given Atovaquone (Mepron -) 1,500 mg PO DAILY@0800 [facility] Last Admin: 06/18/18 08:46 Dose: 1,500 mg Budesonide/Formoterol Fumarate (Symbicort 160/4.5mcg -) 2 puff IH BID [facility] Last Admin: 06/18/18 09:46 Dose: Not Given Febuxostat (Uloric -) 40 mg PO DAILY [facility] Last Admin: 06/18/18 09:46 Dose: Not Given Heparin Sodium (Porcine) (Heparin -) 5,000 unit SQ BID [facility] Last Admin: 06/18/18 09:45 Dose: 5,000 unit Ceftriaxone Sodium 1 gm/ (Dextrose) 50 mls @ 100 mls/hr IVPB DAILY [facility]; Protocol Last Admin: 06/18/18 09:56 Dose: Not Given Insulin Aspart (Novolog Vial Sliding Scale -) 1 vial SQ BIDAC [facility]; Protocol Last Admin: 06/18/18 06:21 Dose: Not Given Losartan Potassium (Cozaar -) 50 mg PO DAILY [facility] Last Admin: 06/18/18 09:44 Dose: Not Given Metformin HCl (Glucophage -) 500 mg PO BID@0700,1630 [facility] Last Admin: 06/18/18 06:02 Dose: 500 mg Pantoprazole Sodium (Protonix -) 40 mg PO DAILY [facility] Last Admin: 06/18/18 09:44 Dose: 40 mg Prednisone 5 mg/ Prednisone 20 (mg) 25 mg PO DAILY [facility] Last Admin: 06/18/18 09:44 Dose: 25 mg Sitagliptin Phosphate (Januvia -) 50 mg PO DAILY@0700 [facility] Last Admin: 06/18/18 06:02 Dose: 50 mg Sulfasalazine (Azulfidine En-Tabs -) 500 mg PO DAILY [facility] Last Admin: 06/18/18 09:45 Dose: Not Given Zolpidem Tartrate (Ambien -) 10 mg PO HS PRN PRN Reason: INSOMNIA Last Admin: 06/17/18 22:39 Dose: 10 mg A/P Fever Metastatic NSCLC (Squamous cell) started recently on nivolumab COPD Chronic Hypoxic Respiratory Failure Rheumatoid Arthritis Anemia - antibiotics per ID - f/u pending cultures - O2 to keep SpO2 >90% - inhaled bronchodilators as needed - DVT prophylaxis
[2018-06-18] MEDS: CEFUROXIME AXETIL 500 MG TABLET PO SCH ×2 (11:32→22:09)
--- NOTE | 2018-06-18 12:37 | PN ---
Progress Note, Physician Chief Complaint: Sepsis Lung CA History of Present Illness: Previous notes and events reviewed awake and alert NAD denies SOB, chest pain drop in Hg noted--pending Stool OB - Current Medication List Current Medications: Active Medications Albuterol Sulfate (Ventolin 0.083% Nebulizer Soln -) 1 amp NEB Q6H PRN PRN Reason: SHORT OF BREATH/WHEEZING Alprazolam (Xanax -) 0.5 mg PO Q12H PRN PRN Reason: Dyspnea Last Admin: 06/17/18 22:39 Dose: 0.5 mg Amlodipine Besylate (Norvasc -) 5 mg PO DAILY [facility] Last Admin: 06/18/18 09:45 Dose: Not Given Atovaquone (Mepron -) 1,500 mg PO DAILY@0800 [facility] Last Admin: 06/18/18 08:46 Dose: 1,500 mg Budesonide/Formoterol Fumarate (Symbicort 160/4.5mcg -) 2 puff IH BID [facility] Last Admin: 06/18/18 09:46 Dose: Not Given Cefuroxime Axetil (Ceftin -) 500 mg PO BID [facility] Last Admin: 06/18/18 11:32 Dose: 500 mg Febuxostat (Uloric -) 40 mg PO DAILY [facility] Last Admin: 06/18/18 09:46 Dose: Not Given Heparin Sodium (Porcine) (Heparin -) 5,000 unit SQ BID [facility] Last Admin: 06/18/18 09:45 Dose: 5,000 unit Insulin Aspart ([facility]iding [facility] -) [facility] Last Admin: 06/18/18 06:21 Dose: Not Given Losartan Potassium (Cozaar -) 50 mg PO DAILY [facility] Last Admin: 06/18/18 09:44 Dose: Not Given Metformin HCl (Glucophage -) 500 mg PO BID@0700,1630 [facility] Last Admin: 06/18/18 06:02 Dose: 500 mg Pantoprazole Sodium (Protonix -) 40 mg PO DAILY [facility] Last Admin: 06/18/18 09:44 Dose: 40 mg Prednisone 5 mg/ Prednisone 20 (mg) 25 mg PO DAILY [facility] Last Admin: 06/18/18 09:44 Dose: 25 mg Sitagliptin Phosphate (Januvia -) 50 mg PO DAILY@0700 [facility] Last Admin: 06/18/18 06:02 Dose: 50 mg Sulfasalazine (Azulfidine En-Tabs -) 500 mg PO DAILY [facility] Last Admin: 06/18/18 09:45 Dose: Not Given Zolpidem Tartrate (Ambien -) 10 mg PO HS PRN PRN Reason: INSOMNIA Last Admin: 06/17/18 22:39 Dose: 10 mg - Objective Vital Signs: Vital Signs Temperature 97.8 F 06/18/18 10:00 Pulse Rate 111 H 06/18/18 10:00 Respiratory Rate 20 06/18/18 10:00 Blood Pressure 102/60 06/18/18 10:00 O2 Sat by Pulse Oximetry (%) 100 06/18/18 09:00 Constitutional: Yes: No Distress, Calm Eyes: Yes: Conjunctiva Clear HENT: Yes: Atraumatic Cardiovascular: Yes: Regular Rate and Rhythm Respiratory: Yes: Regular, Diminished Gastrointestinal: Yes: Normal Bowel Sounds, Soft, Abdomen, Obese Musculoskeletal: Yes: WNL Extremities: Yes: WNL Edema: No Neurological: Yes: Alert, Oriented Psychiatric: Yes: Alert, Oriented Labs: CBC, BMP 06/18/18 06:48 06/18/18 06:48 INR, PTT INR 1.25 (0.83-1.09) H 06/15/18 14:15 Problem List - Problems (1) Sepsis Assessment/Plan: -WBC 7.2 -afebrile -LA 1.9 -BC and UC negative -ID on board -IV Ceftriaxone Code(s): A41.9 - SEPSIS, UNSPECIFIED ORGANISM Qualifiers: Sepsis type: sepsis due to unspecified organism Qualified Code(s): A41.9 - Sepsis, unspecified organism (2) Lung cancer Assessment/Plan: -Oncology consulted -CXR shows extensive metastatic lesions in both lung robertson with some minimal fluid and atelectasis at the right base -keep SpO2 >90% -prednisone -bronchodilator -O2 via NC Code(s): C34.90 - MALIGNANT NEOPLASM OF UNSP PART OF UNSP BRONCHUS OR LUNG Qualifiers: Laterality: unspecified laterality Lung location: unspecified part of lung Qualified Code(s): C34.90 - Malignant neoplasm of unspecified part of unspecified bronchus or lung (3) THIAGO (acute kidney injury) Assessment/Plan: -BUN/Cr 27/1.1 -monitor renal function Code(s): N17.9 - ACUTE KIDNEY FAILURE, UNSPECIFIED (4) HTN (hypertension) Assessment/Plan: -Almopdipine and Cozaar -low Na diet Code(s): I10 - ESSENTIAL (PRIMARY) HYPERTENSION Assessment/Plan see problem list dvt ppx
--- NOTE | 2018-06-18 13:40 | PN ---
Progress Note (short form) - Note Progress Note: feels well no complains no further fevers Vital Signs Period Temp Pulse Resp BP Sys/Medeiros Pulse Ox Last 24 Hr 97.8 F-98.9 F 89-111 18-22 102-116/60-77 98-100 cor-rrr lungs clear abd soft,nt ext no edema CBC, BMP 06/18/18 06:48 06/18/18 06:48 Microbiology 06/15/18 14:15 Blood - Peripheral Venous Blood Culture - Preliminary NO GROWTH OBTAINED AFTER 48 HOURS, INCUBATION TO CONTINUE FOR 3 DAYS. 06/15/18 14:15 Blood - Peripheral Venous Blood Culture - Preliminary NO GROWTH OBTAINED AFTER 48 HOURS, INCUBATION TO CONTINUE FOR 3 DAYS. 06/16/18 05:26 Urine - Urine Clean Catch Urine Culture - Final NO GROWTH OBTAINED influenza negative imp/reccd metastatic squamous cell ca fever- unclear etiology just started nivolumab 06/07 ?fever due to chemo ?pneumonia-cough unchanged-cxray unchanged- doubt not neutropenic switch to po ceftin for 7 days history of RA- on prednisone d/w oncology please call back if needed Problem List - Problems (1) Fever Code(s): R50.9 - FEVER, UNSPECIFIED (2) Lung cancer Code(s): C34.90 - MALIGNANT NEOPLASM OF UNSP PART OF UNSP BRONCHUS OR LUNG Qualifiers: Laterality: unspecified laterality Lung location: unspecified part of lung Qualified Code(s): C34.90 - Malignant neoplasm of unspecified part of unspecified bronchus or lung (3) Rheumatoid arthritis Code(s): M06.9 - RHEUMATOID ARTHRITIS, UNSPECIFIED
[2018-06-18] MEDS: ACETAMINOPHEN 500 MG TABLET (FP) PO PRN (13:56)
--- NOTE | 2018-06-18 17:02 | PN ---
Progress Note (short form) - Note Progress Note: PAtient seen and examined Clinically improved Last Vital Signs Temp Pulse Resp BP Pulse Ox 98.6 F 100 H 20 112/75 100 06/18/18 18:00 06/18/18 18:00 06/18/18 18:00 06/18/18 18:00 06/18/18 09:00 Cor: RSR, No murmurs, No gallops Lungs: b/l coarse breath sounds Abd: Soft, Normal bowel sounds, No organomegaly Ext:No significant edema Labs/meds reviewed A//P 73 y/o with metastatic squamous cell lung cancer, s/p surgery, adjuvant chemotherapy. Developed mediastinal recurrence--s/p carbo/taxol/RT, more recently s/p RT to rt. supraclavicular area. Now with b/l lung mets. s/p gemzar , x 3cycles with progression of disease. Just started nivolumab Q 2weeks on 06/07/18 Comes in from PMDs office with weakness and fever Also with RA ? post obstructive pneumonia vs pneumonitis Nebs/O2/rocephin/prednisone 25 mg daily Improved clinically RA--on sulfasalazine Transfuse 1 unit PRBCs/irradiated/leukopoor d/c planning home oxygen
[2018-06-18] MEDS ORDERED: LIDOCAINE 2.5%/PRILOCAINE 2.5% (5 Gram/TUBE) TP ONE (21:00)
[2018-06-18] MEDS: ZOLPIDEM TARTRATE 5 MG TABLET PO PRN (22:10)
[2018-06-18] MEDS: ALPRAZolam 0.25 MG TABLET PO PRN (22:11)
[2018-06-19] MEDS: INSULIN SLIDING SCALE (NOVOLOG) 1 VIAL SQ SCH ×2 (06:06→16:37)
[2018-06-19] MEDS: sitaGLIPtin PHOSPHATE 50 MG TABLET PO SCH ×2 (06:43→09:36)
[2018-06-19] MEDS: metFORMIN HCL 500 MG TABLET (FP) PO SCH ×3 (06:43→16:37)
[2018-06-19] MEDS ORDERED: INSULIN (NOVOLOG) ASPART 100 UNITS/ML 10ML VIAL ONE (06:59)
[2018-06-19] MEDS ORDERED: predniSONE 20 MG TABLET (UD) ONE (08:45)
[2018-06-19] MEDS: ATOVAQUONE 750 MG/5 ML (UNIT-DOSE PACKAGING) PO SCH (09:33)
[2018-06-19] MEDS: PANTOPRAZOLE 40 MG TABLET (FP) PO SCH (09:34)
[2018-06-19] MEDS: predniSONE 5 MG, predniSONE 20 MG PO SCH (09:34)
[2018-06-19] MEDS: CEFUROXIME AXETIL 500 MG TABLET PO SCH (09:35)
[2018-06-19] MEDS: FEBUXOSTAT 40 MG TAB PO SCH (09:39)
[2018-06-19] MEDS: LOSARTAN POTASSIUM 50 MG TABLET (FP) PO SCH (09:42)
[2018-06-19] MEDS: amLODIPine BESYLATE 5 MG TABLET (FP) PO SCH (09:42)
[2018-06-19] MEDS: HEPARIN NA (PORCINE) 5,000 UNITS/ML 1ML VIAL SQ SCH (09:43)
[2018-06-19] MEDS: BUDESONIDE/FORMETEROL FUMARATE 160/4.5 mcg INHALER IH SCH (09:44)
[2018-06-19] MEDS: ACETAMINOPHEN 500 MG TABLET (FP) PO PRN (09:46)
--- NOTE | 2018-06-19 10:42 | PN ---
Progress Note (short form) - Note Progress Note: PULMONARY No fevers. Denies shortness of breath or chest pain. Vital Signs Period Temp Pulse Resp BP Sys/Medeiros Pulse Ox Last 24 Hr 97.7 F-98.6 F 90-105 19-20 112-145/63-75 100 Gen: NAD at rest Heart: RRR Lung: decreased breath sounds at the bases Abd: soft, nontender Ext: no edema CBC, BMP 06/18/18 06:48 06/18/18 06:48 Active Medications Acetaminophen (Tylenol -) 500 mg PO Q6H PRN PRN Reason: PAIN 6-10 Last Admin: 06/19/18 09:46 Dose: 500 mg Albuterol Sulfate (Ventolin 0.083% Nebulizer Soln -) 1 amp NEB Q6H PRN PRN Reason: SHORT OF BREATH/WHEEZING Alprazolam (Xanax -) 0.5 mg PO Q12H PRN PRN Reason: Dyspnea Last Admin: 06/18/18 22:11 Dose: 0.5 mg Amlodipine Besylate (Norvasc -) 5 mg PO DAILY [facility] Last Admin: 06/19/18 09:42 Dose: 5 mg Atovaquone (Mepron -) 1,500 mg PO DAILY@0800 [facility] Last Admin: 06/19/18 09:33 Dose: 1,500 mg Budesonide/Formoterol Fumarate (Symbicort 160/4.5mcg -) 2 puff IH BID [facility] Last Admin: 06/19/18 09:44 Dose: Not Given Cefuroxime Axetil (Ceftin -) 500 mg PO BID [facility] Last Admin: 06/19/18 09:35 Dose: 500 mg Febuxostat (Uloric -) 40 mg PO DAILY [facility] Last Admin: 06/19/18 09:39 Dose: Not Given Heparin Sodium (Porcine) (Heparin -) 5,000 unit SQ BID [facility] Last Admin: 06/19/18 09:43 Dose: Not Given Insulin Aspart (Novolog Vial Sliding Scale -) [facility] Protocol Last Admin: 06/19/18 06:06 Dose: Not Given Losartan Potassium (Cozaar -) 50 mg PO DAILY [facility] Last Admin: 06/19/18 09:42 Dose: 50 mg Metformin HCl (Glucophage -) 500 mg PO BID@0700,1630 [facility] Last Admin: 06/19/18 09:36 Dose: 500 mg Pantoprazole Sodium (Protonix -) 40 mg PO DAILY [facility] Last Admin: 06/19/18 09:34 Dose: 40 mg Prednisone 5 mg/ Prednisone 20 (mg) 25 mg PO DAILY [facility] Last Admin: 06/19/18 09:34 Dose: 25 mg Sitagliptin Phosphate (Januvia -) 50 mg PO DAILY@0700 [facility] Last Admin: 06/19/18 09:36 Dose: 50 mg Sulfasalazine (Azulfidine En-Tabs -) 500 mg PO DAILY [facility] Last Admin: 06/19/18 09:38 Dose: Not Given Zolpidem Tartrate (Ambien -) 10 mg PO HS PRN PRN Reason: INSOMNIA Last Admin: 06/18/18 22:10 Dose: 10 mg A/P Fever resolved Metastatic NSCLC (Squamous cell) started recently on nivolumab COPD Chronic Hypoxic Respiratory Failure Rheumatoid Arthritis Anemia - complete antibiotics - O2 to keep SpO2 >90% - inhaled bronchodilators as needed - DVT prophylaxis - d/c planning in progress
[2018-06-19 13:01] LABS: HEMOGLOBIN 8.9 GM/dL (10.7-15.3); MCH 29.4 pg (25.7-33.7); MCHC 31.7 g/dl (32.0-36.0); MEAN CELL VOLUME 92.8 fl (80-96); MEAN PLT VOLUME 8.4 fl (7.5-11.1); PLATELET COUNT 204 K/MM3 (134-434); RBC 3.02 M/mm3 (3.60-5.2); RDW 19.3 % (11.6-15.6); WHITE BLOOD COUNT 11.5 K/mm3 (4.0-10.0)
[2018-06-19 13:48] LABS: ALBUMIN 2.6 g/dl (3.4-5.0); ALK PHOS 76 U/L (45-117); ANION GAP 9 MMOL/L (8-16); BLOOD UREA NITROGEN 24 mg/dL (7-18); CALCIUM 8.7 mg/dL (8.5-10.1); CHLORIDE 103 mmol/L (98-107); CO2 24 mmol/L (21-32); GLUCOSE,RANDOM 163 mg/dL (74-106); POTASSIUM 3.7 mmol/L (3.5-5.1); SGOT/AST 18 U/L (15-37); SGPT/ALT 20 U/L (13-61); SODIUM 136 mmol/L (136-145); TOT PROT 6.1 g/dl (6.4-8.2)
--- NOTE | 2018-06-19 16:26 | DS ---
Physical Examination Vital Signs: Vital Signs Temperature 98.0 F 06/19/18 14:46 Pulse Rate 115 H 06/19/18 15:12 Respiratory Rate 18 06/19/18 14:46 Blood Pressure 141/79 06/19/18 14:46 O2 Sat by Pulse Oximetry (%) 97 06/19/18 15:12 Findings/Remarks: Patient is a 73 y/o female with past medical history of Lung CA, HTN. Patient presented to ER from PMD office for weakness. On examination patient denies weakness and states she "fell asleep" while waiting to see PMD. In ER patient noted to be tachycardic and febrile with temp 102.6F. Constitutional: Yes: No Distress, Calm Eyes: Yes: Conjunctiva Clear HENT: Yes: Atraumatic Cardiovascular: Yes: Regular Rate and Rhythm Respiratory: Yes: Regular, Diminished, On Nasal O2 Gastrointestinal: Yes: Normal Bowel Sounds, Soft Musculoskeletal: Yes: WNL Extremities: Yes: WNL Edema: No Neurological: Yes: Alert, Oriented Psychiatric: Yes: Alert, Oriented Labs: CBC, BMP 06/19/18 12:40 06/19/18 12:40 Discharge Summary Reason For Visit: SQUAMOUS CELL CA OF LUNG Current Active Problems Sepsis (Acute) Lung cancer (Chronic) Hospital Course: see progress notes Laboratory Tests 06/15/18 06/15/18 06/15/18 14:15 14:15 14:15 WBC 9.7 RBC 3.19 L Hgb 9.8 L Hct 30.5 L MCV 95.5 MCH 30.6 MCHC 32.1 RDW 21.1 H Plt Count 247 MPV 8.2 Absolute Neuts (auto) 7.5 Neutrophils % 77.0 Lymphocytes % 17.2 D Monocytes % 4.8 Eosinophils % 0.4 Basophils % 0.6 Nucleated RBC % 0 Hypochromia 0 Platelet Estimate Normal Polychromasia 1+ Poikilocytosis 0 Anisocytosis 1+ Microcytosis 0 Macrocytosis 1+ Ovalocytes 1+ Stomatocytes 1+ PT with INR 14.80 H INR 1.25 H PTT (Actin FS) 26.8 VBG pH 7.45 H POC VBG pCO2 38.0 L POC VBG pO2 54.5 H VBG HCO3 25.9 VBG O2 Sat (Marie) 87.1 H VBG Base Excess 2.3 H Sodium Potassium Chloride Carbon Dioxide Anion Gap BUN Creatinine Creat Clearance w eGFR POC Glucometer Random Glucose Hemoglobin A1c % Lactic Acid Calcium Phosphorus Magnesium Total Bilirubin AST ALT Alkaline Phosphatase Troponin I Total Protein Albumin Triglycerides Cholesterol Total LDL Cholesterol HDL Cholesterol TSH Urine Color Urine Appearance Urine pH Ur Specific [place] Urine Protein Urine Glucose (UA) Urine Ketones Urine Blood Urine Nitrite Urine Bilirubin Urine Urobilinogen Ur Leukocyte Esterase Stool Occult Blood Influenza A (Rapid) Influenza B (Rapid) Blood Type Antibody Screen Crossmatch 06/15/18 06/15/18 06/15/18 14:15 14:15 14:15 WBC RBC Hgb Hct MCV MCH MCHC RDW Plt Count MPV Absolute Neuts (auto) Neutrophils % Lymphocytes % Monocytes % Eosinophils % Basophils % Nucleated RBC % Hypochromia Platelet Estimate Polychromasia Poikilocytosis Anisocytosis Microcytosis Macrocytosis Ovalocytes Stomatocytes PT with INR INR PTT (Actin FS) VBG pH POC VBG pCO2 POC VBG pO2 VBG HCO3 VBG O2 Sat (Marie) VBG Base Excess Sodium 138 Potassium 4.2 Chloride 101 Carbon Dioxide 27 Anion Gap 9 BUN 25 H Creatinine 1.3 Creat Clearance w eGFR 40.26 POC Glucometer Random Glucose 82 Hemoglobin A1c % Lactic Acid 1.9 Calcium 8.8 Phosphorus Magnesium Total Bilirubin 1.1 H AST 21 ALT 17 Alkaline Phosphatase 75 Troponin I 0.02 Total Protein 6.6 Albumin 2.8 L Triglycerides Cholesterol Total LDL Cholesterol HDL Cholesterol TSH Urine Color Urine Appearance Urine pH Ur Specific [place] Urine Protein Urine Glucose (UA) Urine Ketones Urine Blood Urine Nitrite Urine Bilirubin Urine Urobilinogen Ur Leukocyte Esterase Stool Occult Blood Influenza A (Rapid) Influenza B (Rapid) Blood Type Antibody Screen Crossmatch 06/16/18 06/16/18 06/16/18 05:26 05:45 05:45 WBC 6.0 RBC 2.39 L Hgb 8.6 L Hct 22.8 L D MCV 95.5 MCH 35.8 H D MCHC 37.5 H RDW 21.2 H Plt Count 187 D MPV 7.8 Absolute Neuts (auto) 4.4 Neutrophils % 73.9 Lymphocytes % 19.6 Monocytes % 4.7 Eosinophils % 1.7 D Basophils % 0.1 Nucleated RBC % 0 Hypochromia Platelet Estimate Polychromasia Poikilocytosis Anisocytosis Microcytosis Macrocytosis Ovalocytes Stomatocytes PT with INR INR PTT (Actin FS) VBG pH POC VBG pCO2 POC VBG pO2 VBG HCO3 VBG O2 Sat (Marie) VBG Base Excess Sodium 136 Potassium 3.6 Chloride 102 Carbon Dioxide 25 Anion Gap 8 BUN 23 H Creatinine 1.0 Creat Clearance w eGFR 54.50 POC Glucometer Random Glucose 101 Hemoglobin A1c % Lactic Acid Calcium 8.3 L Phosphorus 3.6 Magnesium 1.3 L Total Bilirubin 1.3 H AST 24 ALT 17 Alkaline Phosphatase 67 Troponin I Total Protein 5.8 L Albumin 2.4 L Triglycerides 143 Cholesterol 138 Total LDL Cholesterol 83 HDL Cholesterol 37 L TSH 0.61 Urine Color Yellow Urine Appearance Clear Urine pH 5.0 Ur Specific [place] 1.009 L Urine Protein Negative Urine Glucose (UA) Negative Urine Ketones Negative Urine Blood Negative Urine Nitrite Negative Urine Bilirubin Negative Urine Urobilinogen 0.2 Ur Leukocyte Esterase Negative Stool Occult Blood Influenza A (Rapid) Influenza B (Rapid) Blood Type Antibody Screen Crossmatch 06/16/18 06/16/18 06/16/18 05:45 12:01 21:31 WBC RBC Hgb Hct MCV MCH MCHC RDW Plt Count MPV Absolute Neuts (auto) Neutrophils % Lymphocytes % Monocytes % Eosinophils % Basophils % Nucleated RBC % Hypochromia Platelet Estimate Polychromasia Poikilocytosis Anisocytosis Microcytosis Macrocytosis Ovalocytes Stomatocytes PT with INR INR PTT (Actin FS) VBG pH POC VBG pCO2 POC VBG pO2 VBG HCO3 VBG O2 Sat (Marie) VBG Base Excess Sodium Potassium Chloride Carbon Dioxide Anion Gap BUN Creatinine Creat Clearance w eGFR POC Glucometer 131 220 Random Glucose Hemoglobin A1c % 8.2 H Lactic Acid Calcium Phosphorus Magnesium Total Bilirubin AST ALT Alkaline Phosphatase Troponin I Total Protein Albumin Triglycerides Cholesterol Total LDL Cholesterol HDL Cholesterol TSH Urine Color Urine Appearance Urine pH Ur Specific [place] Urine Protein Urine Glucose (UA) Urine Ketones Urine Blood Urine Nitrite Urine Bilirubin Urine Urobilinogen Ur Leukocyte Esterase Stool Occult Blood Influenza A (Rapid) Influenza B (Rapid) Blood Type Antibody Screen Crossmatch 06/17/18 06/17/18 06/17/18 06:22 07:30 16:06 WBC 6.5 RBC 2.39 L Hgb 8.5 L Hct 22.8 L MCV 95.5 MCH 35.6 H MCHC 37.2 H RDW 20.2 H Plt Count 185 MPV 7.8 Absolute Neuts (auto) 4.5 Neutrophils % 69.4 Lymphocytes % 23.1 Monocytes % 5.0 Eosinophils % 2.3 Basophils % 0.2 Nucleated RBC % 0 Hypochromia Platelet Estimate Polychromasia Poikilocytosis Anisocytosis Microcytosis Macrocytosis Ovalocytes Stomatocytes PT with INR INR PTT (Actin FS) VBG pH POC VBG pCO2 POC VBG pO2 VBG HCO3 VBG O2 Sat (Marie) VBG Base Excess Sodium Potassium Chloride Carbon Dioxide Anion Gap BUN Creatinine Creat Clearance w eGFR POC Glucometer 149 236 Random Glucose Hemoglobin A1c % Lactic Acid Calcium Phosphorus Magnesium Total Bilirubin AST ALT Alkaline Phosphatase Troponin I Total Protein Albumin Triglycerides Cholesterol Total LDL Cholesterol HDL Cholesterol TSH Urine Color Urine Appearance Urine pH Ur Specific [place] Urine Protein Urine Glucose (UA) Urine Ketones Urine Blood Urine Nitrite Urine Bilirubin Urine Urobilinogen Ur Leukocyte Esterase Stool Occult Blood Influenza A (Rapid) Influenza B (Rapid) Blood Type Antibody Screen Crossmatch 06/18/18 06/18/18 06/18/18 06:01 06:48 06:48 WBC 7.2 RBC 2.38 L Hgb 7.9 L Hct 23.3 L MCV 97.6 H MCH 33.0 MCHC 33.8 RDW 20.1 H Plt Count 182 MPV 8.4 Absolute Neuts (auto) 5.4 Neutrophils % 75.3 Lymphocytes % 17.6 D Monocytes % 5.6 Eosinophils % 1.4 Basophils % 0.1 Nucleated RBC % 0 Hypochromia Platelet Estimate Polychromasia Poikilocytosis Anisocytosis Microcytosis Macrocytosis Ovalocytes Stomatocytes PT with INR INR PTT (Actin FS) VBG pH POC VBG pCO2 POC VBG pO2 VBG HCO3 VBG O2 Sat (Marie) VBG Base Excess Sodium 142 Potassium 4.2 Chloride 106 Carbon Dioxide 29 Anion Gap 7 L BUN 27 H Creatinine 1.1 Creat Clearance w eGFR 48.82 POC Glucometer 100 Random Glucose 103 Hemoglobin A1c % Lactic Acid Calcium 8.7 Phosphorus Magnesium Total Bilirubin 0.5 AST 14 L ALT 15 Alkaline Phosphatase 72 Troponin I Total Protein 5.6 L Albumin 2.4 L Triglycerides Cholesterol Total LDL Cholesterol HDL Cholesterol TSH Urine Color Urine Appearance Urine pH Ur Specific [place] Urine Protein Urine Glucose (UA) Urine Ketones Urine Blood Urine Nitrite Urine Bilirubin Urine Urobilinogen Ur Leukocyte Esterase Stool Occult Blood Influenza A (Rapid) Influenza B (Rapid) Blood Type Antibody Screen Crossmatch 06/18/18 06/18/18 06/18/18 10:15 11:37 13:40 WBC RBC Hgb Hct MCV MCH MCHC RDW Plt Count MPV Absolute Neuts (auto) Neutrophils % Lymphocytes % Monocytes % Eosinophils % Basophils % Nucleated RBC % Hypochromia Platelet Estimate Polychromasia Poikilocytosis Anisocytosis Microcytosis Macrocytosis Ovalocytes Stomatocytes PT with INR INR PTT (Actin FS) VBG pH POC VBG pCO2 POC VBG pO2 VBG HCO3 VBG O2 Sat (Marie) VBG Base Excess Sodium Potassium Chloride Carbon Dioxide Anion Gap BUN Creatinine Creat Clearance w eGFR POC Glucometer 94 Random Glucose Hemoglobin A1c % Lactic Acid Calcium Phosphorus Magnesium Total Bilirubin AST ALT Alkaline Phosphatase Troponin I Total Protein Albumin Triglycerides Cholesterol Total LDL Cholesterol HDL Cholesterol TSH Urine Color Urine Appearance Urine pH Ur Specific [place] Urine Protein Urine Glucose (UA) Urine Ketones Urine Blood Urine Nitrite Urine Bilirubin Urine Urobilinogen Ur Leukocyte Esterase Stool Occult Blood Negative Influenza A (Rapid) Negative Influenza B (Rapid) Negative Blood Type Antibody Screen Crossmatch 06/18/18 06/18/18 06/19/18 16:21 23:20 05:59 WBC RBC Hgb Hct MCV MCH MCHC RDW Plt Count MPV Absolute Neuts (auto) Neutrophils % Lymphocytes % Monocytes % Eosinophils % Basophils % Nucleated RBC % Hypochromia Platelet Estimate Polychromasia Poikilocytosis Anisocytosis Microcytosis Macrocytosis Ovalocytes Stomatocytes PT with INR INR PTT (Actin FS) VBG pH POC VBG pCO2 POC VBG pO2 VBG HCO3 VBG O2 Sat (Marie) VBG Base Excess Sodium Potassium Chloride Carbon Dioxide Anion Gap BUN Creatinine Creat Clearance w eGFR POC Glucometer 227 109 Random Glucose Hemoglobin A1c % Lactic Acid Calcium Phosphorus Magnesium Total Bilirubin AST ALT Alkaline Phosphatase Troponin I Total Protein Albumin Triglycerides Cholesterol Total LDL Cholesterol HDL Cholesterol TSH Urine Color Urine Appearance Urine pH Ur Specific [place] Urine Protein Urine Glucose (UA) Urine Ketones Urine Blood Urine Nitrite Urine Bilirubin Urine Urobilinogen Ur Leukocyte Esterase Stool Occult Blood Influenza A (Rapid) Influenza B (Rapid) Blood Type O NEGATIVE Antibody Screen Negative Crossmatch See Detail 06/19/18 06/19/18 06/19/18 11:09 12:40 12:40 WBC 11.5 H RBC 3.02 L Hgb 8.9 L Hct 28.0 L D MCV 92.8 MCH 29.4 D MCHC 31.7 L RDW 19.3 H Plt Count 204 MPV 8.4 Absolute Neuts (auto) Neutrophils % Lymphocytes % Monocytes % Eosinophils % Basophils % Nucleated RBC % Hypochromia Platelet Estimate Polychromasia Poikilocytosis Anisocytosis Microcytosis Macrocytosis Ovalocytes Stomatocytes PT with INR INR PTT (Actin FS) VBG pH POC VBG pCO2 POC VBG pO2 VBG HCO3 VBG O2 Sat (Marie) VBG Base Excess Sodium 136 Potassium 3.7 Chloride 103 Carbon Dioxide 24 Anion Gap 9 BUN 24 H Creatinine 1.0 Creat Clearance w eGFR 54.50 POC Glucometer 95 Random Glucose 163 H Hemoglobin A1c % Lactic Acid Calcium 8.7 Phosphorus Magnesium Total Bilirubin 1.0 AST 18 ALT 20 Alkaline Phosphatase 76 Troponin I Total Protein 6.1 L Albumin 2.6 L Triglycerides Cholesterol Total LDL Cholesterol HDL Cholesterol TSH Urine Color Urine Appearance Urine pH Ur Specific [place] Urine Protein Urine Glucose (UA) Urine Ketones Urine Blood Urine Nitrite Urine Bilirubin Urine Urobilinogen Ur Leukocyte Esterase Stool Occult Blood Influenza A (Rapid) Influenza B (Rapid) Blood Type Antibody Screen Crossmatch Active Medications Generic Name Dose Route Start Last Admin Trade Name Freq PRN Reason Stop Dose Admin Acetaminophen 500 mg 06/18/18 13:48 06/19/18 09:46 Tylenol - PO 500 mg Q6H PRN Administration PAIN 6-10 Albuterol Sulfate 1 amp 06/15/18 17:24 Ventolin 0.083% Nebulizer Soln - NEB Q6H PRN SHORT OF BREATH/WHEEZING Alprazolam 0.5 mg 06/16/18 16:54 06/18/18 22:11 Xanax - PO 0.5 mg Q12H PRN Administration Dyspnea Amlodipine Besylate 5 mg 06/16/18 10:00 06/19/18 09:42 Norvasc - PO 5 mg DAILY [facility] Administration Atovaquone 1,500 mg 06/16/18 08:00 06/19/18 09:33 Mepron - PO 1,500 mg DAILY@0800 [facility] Administration Budesonide/Formoterol Fumarate 2 puff 06/15/18 22:00 06/19/18 09:44 Symbicort 160/4.5mcg - IH Not Given BID [facility] Cefuroxime Axetil 500 mg 06/18/18 11:30 06/19/18 09:35 Ceftin - PO 500 mg BID [facility] Administration Febuxostat 40 mg 06/16/18 10:00 06/19/18 09:39 Uloric - PO Not Given DAILY [facility] Heparin Sodium (Porcine) 5,000 unit 06/15/18 22:00 06/19/18 09:43 Heparin - SQ Not Given BID [facility] Insulin Aspart 1 vial 06/17/18 16:30 06/19/18 06:06 Novolog Vial Sliding Scale - SQ [facility] Losartan Potassium 50 mg 06/16/18 10:00 06/19/18 09:42 Cozaar - PO 50 mg DAILY [facility] Administration Metformin HCl 500 mg 06/17/18 16:30 06/19/18 09:36 Glucophage - PO 500 mg BID@0700,1630 [facility] Administration Pantoprazole Sodium 40 mg 06/16/18 10:00 06/19/18 09:34 Protonix - PO 40 mg DAILY [facility] Administration Prednisone 5 mg/ Prednisone 20 25 mg 06/16/18 10:00 06/19/18 09:34 mg PO 25 mg DAILY [facility] Administration Sitagliptin Phosphate 50 mg 06/18/18 07:00 06/19/18 09:36 Januvia - PO 50 mg DAILY@0700 [facility] Administration Sulfasalazine 500 mg 06/16/18 10:00 06/19/18 09:38 Azulfidine En-Tabs - PO Not Given DAILY [facility] Zolpidem Tartrate 10 mg 06/16/18 22:04 06/18/18 22:10 Ambien - PO 10 mg HS PRN Administration INSOMNIA Microbiology 06/15/18 14:15 Blood - Peripheral Venous Blood Culture - Preliminary NO GROWTH OBTAINED AFTER 96 HOURS, INCUBATION TO CONTINUE FOR 1 DAYS. 06/15/18 14:15 Blood - Peripheral Venous Blood Culture - Preliminary NO GROWTH OBTAINED AFTER 96 HOURS, INCUBATION TO CONTINUE FOR 1 DAYS. 06/16/18 05:26 Urine - Urine Clean Catch Urine Culture - Final NO GROWTH OBTAINED Condition: Stable - Instructions Diet, Activity, Other Instructions: Follow up with PMD in 1 week Follow up with Oncology as scheduled continue with medication regimen as scheduled return to ER if develop respiratory failure, chest pain, AMS Referrals: Grecia Ferreira MD [Staff Physician] - Disposition: HOME - Home Medications Comprehensive Discharge Medication List: Ambulatory Orders Albuterol Sulfate Inhaler - [Ventolin HFA Inhaler -] 2 inh PO Q6H 06/15/18 Alprazolam [Xanax] 0.25 mg PO DAILY 06/15/18 Amlodipine Besylate [Norvasc -] 5 mg PO DAILY 06/15/18 Atovaquone 750 mg PO DAILY 06/15/18 Azithromycin [Zithromax -] 250 mg PO DAILY 06/15/18 Blood-Glucose Meter [Freestyle Lite Meter] 1 each [facility] 06/15/18 Budesonide/Formeterol Fumarate [SYMBICORT 160/4.5mcg -] 1 inh PO BID 06/15/18 Cefuroxime Axetil [Ceftin -] 500 mg PO Q12H 06/15/18 Febuxostat [Uloric -] 40 mg PO DAILY 06/15/18 Losartan Potassium [Cozaar -] 50 mg PO DAILY 06/15/18 Methotrexate [Mexate -] 2.5 mg PO Q7D 06/15/18 Pantoprazole Sodium [Protonix -] 40 mg PO DAILY 06/15/18 Prednisolone [Millipred] 5 mg PO DAILY 06/15/18 Sulfasalazine [Sulfas[address]azine Dr] 500 mg PO DAILY 06/15/18 Tramadol HCl [Ultram] 50 mg PO DAILY 06/15/18 Zolpidem Tartrate [Ambien] 10 mg PO DAILY 06/15/18 Acetaminophen [Tylenol .Extra-Strength -] 500 mg PO Q6H PRN tablet 06/19/18 Atovaquone [Mepron Oral Solution -] 1,500 mg PO DAILY@0800 #1 bottle 06/19/18 Losartan Potassium [Cozaar -] 50 mg PO DAILY tablet 06/19/18 Sitagliptin Phosphate [Januvia -] 50 mg PO DAILY@0700 #30 tablet 06/19/18 Sulfasalazine [Azulfidine En-Tabs -] 500 mg PO DAILY tablet.dr 06/19/18 metFORMIN HCL [Glucophage -] 500 mg PO BID@0700,1630 #60 tablet 06/19/18 predniSONE [Deltasone -] 25 mg PO DAILY #150 tablet 06/19/18
[2018-06-19 17:21] VITALS: BP 139/88; PULSE 102; TEMP 97
[2018-06-19] MEDS ORDERED: PORTA CATH FLUSH 10 ML IVPUSH ONE (17:32)
== END 2018-06-19 18:30 | disposition home or self-care (01) | DRG 871 ==
LOC: JER 13:23 → JERBED 15:24 → J7W 18:00
PROVIDERS: ADMIT Family Medicine; ATTEND Family Medicine
DX: A41.9 Sepsis, unspecified organism (principal); J18.9 Pneumonia, unspecified organism; C34.90 Malignant neoplasm of unspecified part of unspecified bronchus or lung; N17.9 Acute kidney failure, unspecified; J96.10 Chronic respiratory failure, unspecified whether with hypoxia or hypercapnia; R73.03 Prediabetes; F32.9 Major depressive disorder, single episode, unspecified; Z87.891 Personal history of nicotine dependence; I10 Essential (primary) hypertension; M06.9 Rheumatoid arthritis, unspecified; R50.9 Fever, unspecified; D64.9 Anemia, unspecified; R06.02 Shortness of breath
CPT/HCPCS: 36415; 36430; 36511; 71045-TC-FY; 80053; 80061; 81003; 82272; 82803; 82962; 83036; 83605; 83721; 83735; 84100; 84436; 84443; 84484; 85025; 85027; 85610; 85730; 86850; 86900; 86901; 86922; 87040; 87086; 87804; 93005; 93010; 94761; 99284-25; J0131; J1644; P9038; P9058

== ENCOUNTER 2018-06-21 07:11 | Inpatient (IN) | payer OTHER ==
[~2018-06-21 07:11] MED LIST: ACETAMINOPHEN 325 MG TABLET (FP) PO ONE; DIPHENHYDRAMINE 25 MG in SODIUM CHLORIDE 50 ML IVPB ONE; NIVOLUMAB 200 MG, NIVOLUMAB 40 MG in SODIUM CHLORIDE 100 ML IVPB ONE
[2018-06-21] MEDS ORDERED: DIPHENHYDRAMINE 25 MG in SODIUM CHLORIDE 50 ML IVPB ONE (09:00)
[2018-06-21] MEDS ORDERED: ACETAMINOPHEN 325 MG TABLET (FP) PO ONE (09:00)
[2018-06-21] MEDS ORDERED: NIVOLUMAB 200 MG, NIVOLUMAB 40 MG in SODIUM CHLORIDE 100 ML IVPB ONE ×2 (09:30→16:30)
[2018-06-21] MEDS ORDERED: SODIUM CHLORIDE 500 ML IV ONE (13:45)
[2018-06-21 15:32] LABS: BASO % 0.2 % (0-2.0); EOS % 0.2 % (0-4.5); HEMATOCRIT 31.6 % (32.4-45.2); HEMOGLOBIN 10.1 GM/dL (10.7-15.3); LYMPH % 17.7 % (8-40); MCH 29.9 pg (25.7-33.7); MCHC 32.1 g/dl (32.0-36.0); MEAN CELL VOLUME 93.2 fl (80-96); MEAN PLT VOLUME 8.6 fl (7.5-11.1); MONO % 5.9 % (3.8-10.2); PLATELET COUNT 261 K/MM3 (134-434); RBC 3.39 M/mm3 (3.60-5.2); RDW 19.7 % (11.6-15.6); WHITE BLOOD COUNT 11.1 K/mm3 (4.0-10.0)
[2018-06-21 16:06] LABS: ALBUMIN 2.8 g/dl (3.4-5.0); BILIRUBIN,DIRECT 0.3 mg/dL (0.0-0.2); BILIRUBIN,TOTAL 0.9 mg/dL (0.2-1); CALCIUM 9.1 mg/dL (8.5-10.1); CREATININE 1.2 mg/dL (0.55-1.3); MAGNESIUM 1.7 mg/dL (1.8-2.4); POTASSIUM 3.6 mmol/L (3.5-5.1); TOT PROT 6.6 g/dl (6.4-8.2)
[2018-06-21] MEDS ORDERED: MAGNESIUM SULF 50% (8.12 MEQ/2 ML-1 GM VIAL) IVPB ONE (16:30)
[2018-06-21] MEDS ORDERED: ACETAMINOPHEN 325 MG TABLET (FP) ONE (17:08)
[2018-06-21] MEDS ORDERED: PORTA CATH FLUSH 10 ML IVPUSH ONE (18:29)
--- NOTE | 2018-06-21 21:21 | HP ---
History and Physical History and Physical: 73 y/o patient with nonsmall cell lung cancer, rheumatoid arthritis, HTN, steroid induced hyperglycemia, anxiety comes in with inability to get off the floor this morning. Had to call 911 to come in Squamous cell ca - metastatic s/p surgery , adjuvant therapy, mediastinal recurrence treated with taxol/carbo/RT, s/p RT to right supracalvicular fossa treated with gemzar x3 after progression, now on Nivolumab after further disease progression s/p 2 cycles of nivolumab AFVSS Cor: RSR, No murmurs, No gallops Lungs: Coarse breath sounds b/l Abd: Soft, Normal bowel sounds, No organomegaly Ext: swollen wrist joints, pdal edema 1+ Labs/MEds reviewed A/P 73 y/o patient with nonsmall cell lung cancer, rheumatoid arthritis, HTN, steroid induced hyperglycemia, anxiety comes in with inability to get off the floor this morning. Had to call 911 to come in Squamous cell ca - metastatic s/p surgery , adjuvant therapy, mediastinal recurrence treated with taxol/carbo/RT, s/p RT to right supracalvicular fossa treated with gemzar x3 after progression, now on Nivolumab after further disease progression s/p 2 cycles of nivolumab discussed with rheumatology-- continue sulfasalazine 1g bid/ prednisone 15mg bid PT consult Rehab placement PAtient is DNR/DNI discussed overall poor prognosis with patient and health care proxy Inés Contreras
[2018-06-21] MEDS ORDERED: ALBUTEROL SO4 8 GM HFA INHALER IH PRN (21:35)
[2018-06-21] MEDS ORDERED: ZOLPIDEM TARTRATE 5 MG TABLET PO PRN (21:39)
[2018-06-21] MEDS: predniSONE 10 MG TABLET (UD) PO SCH (22:06)
[2018-06-21] MEDS: traMADol HCL 50 MG TABLET PO PRN (22:19)
[2018-06-21] MEDS: ALPRAZolam 0.25 MG TABLET PO PRN (23:35)
[2018-06-22] MEDS: metFORMIN HCL 500 MG TABLET (FP) PO SCH ×2 (06:49→16:19)
[2018-06-22] MEDS: sitaGLIPtin PHOSPHATE 50 MG TABLET PO SCH (06:49)
[2018-06-22] MEDS ORDERED: PT OWN MED DRAWER 7, Y5N ONE (09:10)
[2018-06-22] MEDS: amLODIPine BESYLATE 5 MG TABLET (FP) PO SCH (09:20)
[2018-06-22] MEDS: LOSARTAN POTASSIUM 50 MG TABLET (FP) PO SCH (09:20)
[2018-06-22] MEDS: predniSONE 10 MG TABLET (UD) PO SCH ×2 (09:20→21:43)
[2018-06-22] MEDS: PANTOPRAZOLE 40 MG TABLET (FP) PO SCH (09:20)
[2018-06-22] MEDS: ATOVAQUONE 750 MG/5 ML (UNIT-DOSE PACKAGING) PO SCH (09:20)
--- NOTE | 2018-06-22 10:30 | PN ---
Progress Note (short form) - Note Progress Note: Patient seen and examined 73 year old presents with severe debilitating R.A. . Was on floor and required 6 firefighters to lift her off floor. History of squamous cell ca - metastatic - recently treated with immunotherapy with Nivolumab. ROS no headaches , diplopia, epistaxis, dysphagia some SOB, dyspnea cough , sputum, no Cesilia side effects of nausea, emesis, diarrhea, constipation, no dysuria, multiple joint pains and decrease ROM Last Vital Signs Temp Pulse Resp BP Pulse Ox 98.4 F 97 H 18 149/86 06/22/18 05:51 06/22/18 05:51 06/22/18 05:51 06/22/18 05:51 HEENT: GIUSEPPE, EOM Intact Oropharynx: No thrush, No mucositis Neck: Supple Nodes: Without adenopathy Breasts: Without masses Cor: RSR, No murmurs, No gallops Lungs: Clear to P&A Abd: Soft, Normal bowel sounds, No organomegaly Ext:No significant edema Skin: No rashes, Integument intact CBC, BMP 06/21/18 14:20 06/21/18 14:20 Current Medications Generic Name Dose Route Start Last Admin Trade Name Freq PRN Reason Stop Dose Admin Albuterol Sulfate 2 puff 06/21/18 21:35 Ventolin Hfa Inhaler - IH Q6H PRN SHORTNESS OF BREATH Alprazolam 0.5 mg 06/21/18 21:35 06/21/18 23:35 Xanax - PO 0.5 mg BID PRN Administration ANXIETY Amlodipine Besylate 5 mg 06/22/18 10:00 06/22/18 09:20 Norvasc - PO 5 mg DAILY RICHARD Administration Atovaquone 1,500 mg 06/22/18 10:00 06/22/18 09:20 Mepron - PO 1,500 mg DAILY RICHARD Administration Budesonide/Formoterol Fumarate 2 puff 06/22/18 10:00 Symbicort 160/4.5mcg - IH BID RICHARD Febuxostat 40 mg 06/22/18 10:00 Uloric - PO DAILY RICHARD Losartan Potassium 50 mg 06/22/18 10:00 06/22/18 09:20 Cozaar - PO 50 mg DAILY RICHARD Administration Metformin HCl 500 mg 06/22/18 07:00 06/22/18 06:49 Glucophage - PO 500 mg BIDAC RICHARD Administration Pantoprazole Sodium 40 mg 06/22/18 10:00 06/22/18 09:20 Protonix - PO 40 mg DAILY RICHARD Administration Prednisone 15 mg 06/21/18 22:00 06/22/18 09:20 Deltasone - PO 15 mg BID RICHARD Administration Sitagliptin Phosphate 50 mg 06/22/18 07:00 06/22/18 06:49 Januvia - PO Not Given DAILY@0700 [facility] Sulfasalazine 1,000 mg 06/21/18 22:00 06/22/18 09:21 Azulfidine En-Tabs - PO 1,000 mg BID RICHARD Administration Tramadol HCl 50 mg 06/21/18 21:43 06/21/18 22:19 Ultram - PO 50 mg Q8H PRN Administration PAIN LEVEL 1-5 Zolpidem Tartrate 5 mg 06/21/18 21:39 06/21/18 23:32 Ambien - PO 5 mg HS PRN Administration INSOMNIA Impression: Squamous cell ca - metastatic s/p surgery , adjuvant therapy, mediastinal recurrence treated with taxol/carbo/RT, s/p RT to right supracalvicular fossa treated with gemzar x3 after progression, now on Nivolumab after further disease progression Severe disabling R.A. Plan: Rheumatology evaluationn Rehab disposition.
--- NOTE | 2018-06-22 14:10 | PN ---
Progress Note, Physician Chief Complaint: Rheumatoid Arthritis Lung CA History of Present Illness: Previous notes and events reviewed awake and alert NAD patient complain of pain to B/L hands and feet - Current Medication List Current Medications: Active Medications Albuterol Sulfate (Ventolin Hfa Inhaler -) 2 puff IH Q6H PRN PRN Reason: SHORTNESS OF BREATH Alprazolam (Xanax -) 0.5 mg PO BID PRN PRN Reason: ANXIETY Last Admin: 06/21/18 23:35 Dose: 0.5 mg Amlodipine Besylate (Norvasc -) 5 mg PO DAILY [facility] Last Admin: 06/22/18 09:20 Dose: 5 mg Atovaquone (Mepron -) 1,500 mg PO DAILY [facility] Last Admin: 06/22/18 09:20 Dose: 1,500 mg Budesonide/Formoterol Fumarate (Symbicort 160/4.5mcg -) 2 puff IH BID [facility] Febuxostat (Uloric -) 40 mg PO DAILY [facility] Losartan Potassium (Cozaar -) 50 mg PO DAILY [facility] Last Admin: 06/22/18 09:20 Dose: 50 mg Metformin HCl (Glucophage -) 500 mg PO BIDAC [facility] Last Admin: 06/22/18 06:49 Dose: 500 mg Pantoprazole Sodium (Protonix -) 40 mg PO DAILY [facility] Last Admin: 06/22/18 09:20 Dose: 40 mg Prednisone (Deltasone -) 15 mg PO BID [facility] Last Admin: 06/22/18 09:20 Dose: 15 mg Sitagliptin Phosphate (Januvia -) 50 mg PO DAILY@0700 [facility] Last Admin: 06/22/18 06:49 Dose: Not Given Sulfasalazine (Azulfidine En-Tabs -) 1,000 mg PO BID [facility] Last Admin: 06/22/18 09:21 Dose: 1,000 mg Tramadol HCl (Ultram -) 50 mg PO Q8H PRN PRN Reason: PAIN LEVEL 1-5 Last Admin: 06/21/18 22:19 Dose: 50 mg Zolpidem Tartrate (Ambien -) 5 mg PO HS PRN PRN Reason: INSOMNIA - Objective Vital Signs: Vital Signs Temperature 98.3 F 06/22/18 11:15 Pulse Rate 106 H 06/22/18 11:15 Respiratory Rate 18 06/22/18 11:15 Blood Pressure 134/69 06/22/18 11:15 O2 Sat by Pulse Oximetry (%) 95 06/22/18 11:15 Constitutional: Yes: No Distress, Calm Eyes: Yes: Conjunctiva Clear HENT: Yes: Atraumatic Cardiovascular: Yes: Regular Rate and Rhythm Respiratory: Yes: Regular, CTA Bilaterally Gastrointestinal: Yes: Normal Bowel Sounds, Soft Musculoskeletal: Yes: Joint Swelling (R knee, arthritis deformity B/L), Muscle Weakness Extremities: Yes: WNL Edema: No Neurological: Yes: Alert, Oriented Psychiatric: Yes: Alert, Oriented Labs: CBC, BMP 06/21/18 14:20 06/21/18 14:20 Problem List - Problems (1) Rheumatoid arthritis Assessment/Plan: -continue Sulfasalazine and Prednisone -PT -pain management Code(s): M06.9 - RHEUMATOID ARTHRITIS, UNSPECIFIED (2) SCC (squamous cell carcinoma of lung) Assessment/Plan: -oncology on board Code(s): C34.90 - MALIGNANT NEOPLASM OF UNSP PART OF UNSP BRONCHUS OR LUNG (3) HTN (hypertension) Assessment/Plan: -Amlodipine and Cozaar -low Na diet Code(s): I10 - ESSENTIAL (PRIMARY) HYPERTENSION (4) Diabetes Assessment/Plan: -BGM ACHS -Sitagliptan and Metformin -ISS -diabetic diet Code(s): E11.9 - TYPE 2 DIABETES MELLITUS WITHOUT COMPLICATIONS Assessment/Plan see problem list dvt ppx SNF for discharge for rehab
[2018-06-22] MEDS: FEBUXOSTAT 40 MG TAB PO SCH (14:43)
--- NOTE | 2018-06-22 15:22 | CONSULT ---
Consult Consult Specialty:: Rheumatology - History of Present Illness History of Present Illness: 73 y/o patient with nonsmall cell lung cancer, metastatic s/p surgery, adjuvant therapy now on Nivolumab. Rheumatoid arthritis, HTN, steroid induced hyperglycemia, admitted with significant joint pain and inability to walk. HPI. Seropositive rheumatoid arthritis since 2003. She has been treated with methotrexate, Remicade, Orencia and Actemra. She did not follow-up with me from 2012 to February 2018. Right lung squamous cell ca since 2014. On December 2017 she discontinued DMARDs for rheumatoid arthritis/. On 03/13/18 she had very active disease, I prescribed Sulfasalazine, which she did not take and on her last visit on 05/08/18 the disease was in remission. - History Source History Provided By: Patient, Medical Record - Past Medical History Cardio/Vascular: Yes: HTN Pulmonary: Yes: Other (Lung cancer --stage IIB . squamous cell) Rheumatology: Yes: Other (rheumatoid arthritis) - Alcohol/Substance Use Hx Alcohol Use: No - Smoking History Smoking history: Never smoked Have you smoked in the past 12 months: No Aproximately how many cigarettes per day: 10 If you are a former smoker, when did you quit?: 12/16/14 - Social History ADL: Independent History of Recent Travel: No Home Medications - Allergies Allergies/Adverse Reactions: Allergies Allergy/AdvReac Type Severity Reaction Status Date / Time aspirin AdvReac Mild Verified 06/21/18 10:00 - Home Medications Home Medications: Ambulatory Orders Albuterol Sulfate Inhaler - [Ventolin HFA Inhaler -] 2 inh PO Q6H 06/15/18 Alprazolam [Xanax] 0.25 mg PO DAILY 06/15/18 Amlodipine Besylate [Norvasc -] 5 mg PO DAILY 06/15/18 Atovaquone 750 mg PO DAILY 06/15/18 Azithromycin [Zithromax -] 250 mg PO DAILY 06/15/18 Blood-Glucose Meter [Freestyle Lite Meter] 1 each [facility] 06/15/18 Budesonide/Formeterol Fumarate [SYMBICORT 160/4.5mcg -] 1 inh PO BID 06/15/18 Cefuroxime Axetil [Ceftin -] 500 mg PO Q12H 06/15/18 Febuxostat [Uloric -] 40 mg PO DAILY 06/15/18 Losartan Potassium [Cozaar -] 50 mg PO DAILY 06/15/18 Methotrexate [Mexate -] 2.5 mg PO Q7D 06/15/18 Pantoprazole Sodium [Protonix -] 40 mg PO DAILY 06/15/18 Prednisolone [Millipred] 5 mg PO DAILY 06/15/[address]azine [Sulf[address] Dr] 500 mg PO DAILY 06/15/18 Tramadol HCl [Ultram] 50 mg PO DAILY 06/15/18 Zolpidem Tartrate [Ambien] 10 mg PO DAILY 06/15/18 Acetaminophen [Tylenol .Extra-Strength -] 500 mg PO Q6H PRN tablet 06/19/18 Atovaquone [Mepron Oral Solution -] 1,500 mg PO DAILY@0800 #1 bottle 06/19/18 Losartan Potassium [Cozaar -] 50 mg PO DAILY tablet 06/19/18 Sitagliptin Phosphate [Januvia -] 50 mg PO DAILY@0700 #30 tablet 06/19/18 Sulfasalazine [Azulfidine En-Tabs -] 500 mg PO DAILY tablet.dr 06/19/18 metFORMIN HCL [Glucophage -] 500 mg PO BID@0700,1630 #60 tablet 06/19/18 predniSONE [Deltasone -] 15 mg PO DAILY 06/22/18 Review of Systems - Review of Systems Constitutional: reports: Malaise Eyes: reports: No Symptoms HENT: reports: No Symptoms Cardiovascular: reports: No Symptoms Respiratory: reports: No Symptoms Gastrointestinal: reports: No Symptoms Musculoskeletal: reports: Other (See HPI) Integumentary: reports: No Symptoms Neurological: reports: No Symptoms Physical Exam Vital Signs: Vital Signs Temperature 98.3 F 06/22/18 11:15 Pulse Rate 106 H 06/22/18 11:15 Respiratory Rate 18 06/22/18 11:15 Blood Pressure 134/69 06/22/18 11:15 O2 Sat by Pulse Oximetry (%) 95 06/22/18 11:15 Constitutional: Yes: Severe Distress Eyes: Yes: WNL HENT: Yes: WNL Neck: Yes: WNL Cardiovascular: Yes: WNL Respiratory: Yes: WNL Gastrointestinal: Yes: WNL Musculoskeletal: Yes: Other (18 swollen joints: Tenderness and swelling of the right 2nd, 3rd and 5th MCPs and all PIPs. Tenderness and swelling in the left wrist , 2nd to 5th MCPs and all PIPs.) Labs: CBC, BMP 06/21/18 14:20 06/21/18 14:20 Laboratory Tests 06/21/18 14:20 Random Glucose 179 H Calcium 9.1 Magnesium 1.7 L Total Bilirubin 0.9 Direct Bilirubin 0.3 H AST 19 ALT 25 Alkaline Phosphatase 88 Total Protein 6.6 Albumin 2.8 L TSH 0.52 Problem List - Problems (1) Rheumatoid arthritis Assessment/Plan: Sero-positive rheumatoid arthritis with recent flare-up probably related to cancer treatment with check point inhibitors. Plan: I increased Prednisone to 15 mg PO BID, continued Sulfasalazine 1 gr BID and I will start Leflunomide 20 mg /d. Code(s): M06.9 - RHEUMATOID ARTHRITIS, UNSPECIFIED (2) Lung cancer Code(s): C34.90 - MALIGNANT NEOPLASM OF UNSP PART OF UNSP BRONCHUS OR LUNG Qualifiers: Laterality: unspecified laterality Lung location: unspecified part of lung Qualified Code(s): C34.90 - Malignant neoplasm of unspecified part of unspecified bronchus or lung
[2018-06-22] MEDS: traMADol HCL 50 MG TABLET PO PRN (16:17)
[2018-06-22] MEDS: BUDESONIDE/FORMETEROL FUMARATE 160/4.5 mcg INHALER IH SCH ×2 (16:17→21:44)
[2018-06-22] MEDS ORDERED: ZOLPIDEM TARTRATE 5 MG TABLET PO PRN ×2 (22:00→22:17)
[2018-06-22] MEDS ORDERED: ZOLPIDEM TARTRATE 5 MG TABLET PO ONE (22:30)
[2018-06-22] MEDS: ALPRAZolam 0.25 MG TABLET PO PRN (23:37)
[2018-06-23] MEDS: metFORMIN HCL 500 MG TABLET (FP) PO SCH ×2 (06:08→17:19)
[2018-06-23] MEDS: sitaGLIPtin PHOSPHATE 50 MG TABLET PO SCH (06:08)
[2018-06-23] MEDS ORDERED: INSULIN (NOVOLOG MIX 70/30) 100 UNITS/ML MDV SQ ONE (06:38)
[2018-06-23] MEDS ORDERED: INSULIN (LEVEMIR) 100 UNITS/ML UNITS SQ ONE (06:39)
[2018-06-23] MEDS ORDERED: sitaGLIPtin PHOSPHATE 50 MG TABLET PO SCH (07:00)
[2018-06-23 07:14] LABS: BASO % 0.1 % (0-2.0); EOS % 0.1 % (0-4.5); HEMATOCRIT 27.6 % (32.4-45.2); HEMOGLOBIN 8.9 GM/dL (10.7-15.3); LYMPH % 24.6 % (8-40); MCH 30.1 pg (25.7-33.7); MCHC 32.4 g/dl (32.0-36.0); MEAN PLT VOLUME 8.2 fl (7.5-11.1); MONO % 6.8 % (3.8-10.2); NEUT % 68.4 % (42.8-82.8); PLATELET COUNT 219 K/MM3 (134-434); RBC 2.97 M/mm3 (3.60-5.2); RDW 19.3 % (11.6-15.6); WHITE BLOOD COUNT 6.8 K/mm3 (4.0-10.0)
[2018-06-23 07:38] LABS: ALBUMIN 2.5 g/dl (3.4-5.0); BILIRUBIN,TOTAL 0.8 mg/dL (0.2-1); CALCIUM 9.1 mg/dL (8.5-10.1); CREATININE 1.5 mg/dL (0.55-1.3); POTASSIUM 4.7 mmol/L (3.5-5.1); TOT PROT 5.7 g/dl (6.4-8.2)
[2018-06-23] MEDS: BUDESONIDE/FORMETEROL FUMARATE 160/4.5 mcg INHALER IH SCH ×2 (10:00→21:49)
[2018-06-23] MEDS: FEBUXOSTAT 40 MG TAB PO SCH (10:00)
[2018-06-23] MEDS: predniSONE 10 MG TABLET (UD) PO SCH ×2 (10:08→21:47)
[2018-06-23] MEDS: PANTOPRAZOLE 40 MG TABLET (FP) PO SCH (10:08)
[2018-06-23] MEDS: amLODIPine BESYLATE 5 MG TABLET (FP) PO SCH (10:09)
[2018-06-23] MEDS: ATOVAQUONE 750 MG/5 ML (UNIT-DOSE PACKAGING) PO SCH (10:09)
[2018-06-23] MEDS: LOSARTAN POTASSIUM 50 MG TABLET (FP) PO SCH (10:09)
[2018-06-23] MEDS: LEFLUNOMIDE 10 MG TABLET PO SCH (10:20)
--- NOTE | 2018-06-23 11:12 | PN ---
Progress Note (short form) - Note Progress Note: Seen in follow up. No complaints this morning - reports she is back to her baseline - able to ambulate. Denies pain. Seen by rheumatology - recommendations made. Meds reviewed. Current Medications Generic Name Dose Route Start Last Admin Trade Name Freq PRN Reason Stop Dose Admin Albuterol Sulfate 2 puff 06/21/18 21:35 Ventolin Hfa Inhaler - IH Q6H PRN SHORTNESS OF BREATH Alprazolam 0.5 mg 06/21/18 21:35 06/22/18 23:37 Xanax - PO 0.5 mg BID PRN Administration ANXIETY Amlodipine Besylate 5 mg 06/22/18 10:00 06/23/18 10:09 Norvasc - PO 5 mg DAILY RICHARD Administration Atovaquone 1,500 mg 06/22/18 10:00 06/23/18 10:09 Mepron - PO 1,500 mg DAILY RICHARD Administration Budesonide/Formoterol Fumarate 2 puff 06/22/18 10:00 06/23/18 10:00 Symbicort 160/4.5mcg - IH Not Given BID RICHARD Febuxostat 40 mg 06/22/18 10:00 06/23/18 10:00 Uloric - PO Not Given DAILY R[facility]ARD Leflunomide 20 mg 06/23/18 10:00 06/23/18 10:20 Arava - PO 20 mg DAILY RICHARD Administration Losartan Potassium 50 mg 06/22/18 10:00 06/23/18 10:09 Cozaar - PO 50 mg DAILY RICHARD Administration Metformin HCl 500 mg 06/22/18 07:00 06/23/18 06:08 Glucophage - PO 500 mg BIDAC RICHARD Administration Pantoprazole Sodium 40 mg 06/22/18 10:00 06/23/18 10:08 Protonix - PO 40 mg DAILY RICHARD Administration Prednisone 15 mg 06/21/18 22:00 06/23/18 10:08 Deltasone - PO 15 mg BID RICHARD Administration Sitagliptin Phosphate 50 mg 06/22/18 07:00 06/23/18 06:08 Januvia - PO 50 mg DAILY@0700 [facility]ARD Administration Sulfasalazine 1,000 mg 06/21/18 22:00 06/23/18 10:09 Azulfidine En-Tabs - PO 1,000 mg BID R[facility]ARD Administration Tramadol HCl 50 mg 06/21/18 21:43 06/22/18 16:17 Ultram - PO 50 mg Q8H PRN Administration PAIN LEVEL 1-5 Zolpidem Tartrate 5 mg 06/22/18 22:17 06/22/18 23:37 Ambien - PO 5 mg HS PRN Administration INSOMNIA Zolpidem Tartrate 10 mg 06/23/18 22:00 Ambien - PO HS PRN INSOMNIA On exam: CBC, [facility] 06/23/18 06:59 06/23/18 06:59 General:Supine in bed Extremities: hand changes consistent with RA Chest:good AE bilaterally, clear Abdomen: Soft, no organomegaly, no masses. Neuro: Alert, oriented, non-focal. CVS: Normal sinus rhythm, S1, S2, no gallop or murmur. Labs reviewed: CBC, [facility] 06/23/18 06:59 06/23/18 06:59 Assessment. Patient with multiply recurrent non-small cell lung cancer, rheumatoid arthritis, HTN, steroid induced hyperglycemia. BIBA after episode where she was unable to get off floor - unclear what precipitated above - now appears to be back at baseline. Ongoing PT evaluation, to determine safety for discharge. RA: has been non-compliant with rheumatology recommendations previously - regimen updated by Dr Chaudhry. Recently started immunotherapy for progressive disease - 2 cycles of nivolumab thus far.
--- NOTE | 2018-06-23 13:05 | PN ---
Progress Note, Physician Chief Complaint: Lung Ca Rheumatoid arthritis - Current Medication List Current Medications: Active Medications Albuterol Sulfate (Ventolin Hfa Inhaler -) 2 puff IH Q6H PRN PRN Reason: SHORTNESS OF BREATH Alprazolam (Xanax -) 0.5 mg PO BID PRN PRN Reason: ANXIETY Last Admin: 06/22/18 23:37 Dose: 0.5 mg Amlodipine Besylate (Norvasc -) 5 mg PO DAILY [facility] Last Admin: 06/23/18 10:09 Dose: 5 mg Atovaquone (Mepron -) 1,500 mg PO DAILY [facility] Last Admin: 06/23/18 10:09 Dose: 1,500 mg Budesonide/Formoterol Fumarate (Symbicort 160/4.5mcg -) 2 puff IH BID [facility] Last Admin: 06/23/18 10:00 Dose: Not Given Febuxostat (Uloric -) 40 mg PO DAILY [facility] Last Admin: 06/23/18 10:00 Dose: Not Given Leflunomide (Arava -) 20 mg PO DAILY [facility] Last Admin: 06/23/18 10:20 Dose: 20 mg Losartan Potassium (Cozaar -) 50 mg PO DAILY [facility] Last Admin: 06/23/18 10:09 Dose: 50 mg Metformin HCl (Glucophage -) 500 mg PO BIDAC [facility] Last Admin: 06/23/18 06:08 Dose: 500 mg Pantoprazole Sodium (Protonix -) 40 mg PO DAILY [facility] Last Admin: 06/23/18 10:08 Dose: 40 mg Prednisone (Deltasone -) 15 mg PO BID [facility] Last Admin: 06/23/18 10:08 Dose: 15 mg Sitagliptin Phosphate (Januvia -) 50 mg PO DAILY@0700 [facility] Last Admin: 06/23/18 06:08 Dose: 50 mg Sulfasalazine (Azulfidine En-Tabs -) 1,000 mg PO BID [facility] Last Admin: 06/23/18 10:09 Dose: 1,000 mg Tramadol HCl (Ultram -) 50 mg PO Q8H PRN PRN Reason: PAIN LEVEL 1-5 Last Admin: 06/22/18 16:17 Dose: 50 mg Zolpidem Tartrate (Ambien -) 5 mg PO HS PRN PRN Reason: INSOMNIA Last Admin: 06/22/18 23:37 Dose: 5 mg Zolpidem Tartrate (Ambien -) 10 mg PO HS PRN PRN Reason: INSOMNIA - Objective Vital Signs: Vital Signs Temperature 97.9 F 06/23/18 05:59 Pulse Rate 95 H 06/23/18 05:59 Respiratory Rate 18 06/23/18 05:59 Blood Pressure 139/72 06/23/18 05:59 O2 Sat by Pulse Oximetry (%) 97 06/22/18 21:00 Labs: CBC, BMP 06/23/18 06:59 06/23/18 06:59 Assessment/Plan (1) Rheumatoid arthritis Assessment/Plan: -continue Sulfasalazine and Prednisone -PT -pain management -Seen by Rheumatology -Started on Leflunomide Code(s): M06.9 - RHEUMATOID ARTHRITIS, UNSPECIFIED (2) SCC (squamous cell carcinoma of lung) Assessment/Plan: -oncology on board Code(s): C34.90 - MALIGNANT NEOPLASM OF UNSP PART OF UNSP BRONCHUS OR LUNG (3) HTN (hypertension) Assessment/Plan: -Amlodipine and Cozaar -low Na diet Code(s): I10 - ESSENTIAL (PRIMARY) HYPERTENSION (4) Diabetes Assessment/Plan: -BGM ACHS -Sitagliptan and Metformin -ISS -diabetic diet Code(s): E11.9 - TYPE 2 DIABETES MELLITUS WITHOUT COMPLICATIONS Did well with physical therapy
[2018-06-23] MEDS ORDERED: PT OWN MED DRAWER 7, Y5N ONE ×2 (18:58→21:51)
[2018-06-23] MEDS ORDERED: ZOLPIDEM TARTRATE 5 MG TABLET PO ONE (21:30)
[2018-06-23] MEDS: ALPRAZolam 0.25 MG TABLET PO PRN (21:48)
[2018-06-23] MEDS ORDERED: ZOLPIDEM TARTRATE 5 MG TABLET PO PRN (22:00)
[2018-06-24] MEDS: metFORMIN HCL 500 MG TABLET (FP) PO SCH ×2 (06:21→17:54)
[2018-06-24] MEDS: sitaGLIPtin PHOSPHATE 50 MG TABLET PO SCH (06:22)
[2018-06-24] MEDS ORDERED: PT OWN MED DRAWER 7, Y5N ONE (09:34)
[2018-06-24] MEDS: ATOVAQUONE 750 MG/5 ML (UNIT-DOSE PACKAGING) PO SCH (10:00)
[2018-06-24] MEDS: LEFLUNOMIDE 10 MG TABLET PO SCH (10:01)
[2018-06-24] MEDS: LOSARTAN POTASSIUM 50 MG TABLET (FP) PO SCH (10:02)
[2018-06-24] MEDS: predniSONE 10 MG TABLET (UD) PO SCH ×2 (10:02→21:04)
[2018-06-24] MEDS: PANTOPRAZOLE 40 MG TABLET (FP) PO SCH (10:02)
[2018-06-24] MEDS: amLODIPine BESYLATE 5 MG TABLET (FP) PO SCH (10:02)
[2018-06-24] MEDS: FEBUXOSTAT 40 MG TAB PO SCH (10:03)
[2018-06-24] MEDS: BUDESONIDE/FORMETEROL FUMARATE 160/4.5 mcg INHALER IH SCH ×2 (10:03→21:04)
--- NOTE | 2018-06-24 13:54 | PN ---
Progress Note (short form) - Note Progress Note: Seen in follow up. No complaints this morning - reports she is back to her baseline - able to ambulate. Denies pain. Meds reviewed. Current Medications Albuterol Sulfate (Ventolin Hfa Inhaler -) 2 puff IH Q6H PRN PRN Reason: SHORTNESS OF BREATH Alprazolam (Xanax -) 0.5 mg PO BID PRN PRN Reason: ANXIETY Last Admin: 06/23/18 21:48 Dose: 0.5 mg Amlodipine Besylate (Norvasc -) 5 mg PO DAILY [facility] Last Admin: 06/24/18 10:02 Dose: 5 mg Atovaquone (Mepron -) 1,500 mg PO DAILY [facility] Last Admin: 06/24/18 10:00 Dose: 1,500 mg Budesonide/Formoterol Fumarate (Symbicort 160/4.5mcg -) 2 puff IH BID [facility] Last Admin: 06/24/18 10:03 Dose: Not Given Febuxostat (Uloric -) 40 mg PO DAILY [facility] Last Admin: 06/24/18 10:03 Dose: Not Given Leflunomide (Arava -) 20 mg PO DAILY [facility] Last Admin: 06/24/18 10:01 Dose: 20 mg Losartan Potassium (Cozaar -) 50 mg PO DAILY [facility] Last Admin: 06/24/18 10:02 Dose: 50 mg Metformin HCl (Glucophage -) 500 mg PO BIDAC [facility] Last Admin: 06/24/18 06:21 Dose: 500 mg Pantoprazole Sodium (Protonix -) 40 mg PO DAILY [facility] Last Admin: 06/24/18 10:02 Dose: 40 mg Prednisone (Deltasone -) 15 mg PO BID [facility] Last Admin: 06/24/18 10:02 Dose: 15 mg Sitagliptin Phosphate (Januvia -) 50 mg PO DAILY@0700 [facility] Last Admin: 06/24/18 06:22 Dose: 50 mg Sulfasalazine (Azulfidine En-Tabs -) 1,000 mg PO BID [facility] Last Admin: 06/24/18 10:02 Dose: 1,000 mg Tramadol HCl (Ultram -) 50 mg PO Q8H PRN PRN Reason: PAIN LEVEL 1-5 Last Admin: 06/22/18 16:17 Dose: 50 mg Zolpidem Tartrate (Ambien -) 5 mg PO HS PRN PRN Reason: INSOMNIA On exam: Last Vital Signs Temp Pulse Resp BP Pulse Ox 98.5 F 101 H 18 121/68 96 06/24/18 13:42 06/24/18 13:42 06/24/18 13:42 06/24/18 13:42 06/23/18 21:00 General:S Sitting at bedside, look well. Extremities: hand changes consistent with RA Chest:good AE bilaterally, clear Abdomen: Soft, no organomegaly, no masses. Neuro: Alert, oriented, non-focal. CVS: Normal sinus rhythm, S1, S2, no gallop or murmur. Labs reviewed: CBC, BMP 06/23/18 06:59 06/23/18 06:59 Assessment. Patient with multiply recurrent non-small cell lung cancer, rheumatoid arthritis, HTN, steroid induced hyperglycemia. BIBA after episode where she was unable to get off floor - unclear what precipitated above - now appears to be back at baseline. Ongoing PT evaluation, to determine safety for discharge. RA: has been non-compliant with rheumatology recommendations previously - regimen updated by Dr Chaudhry. Recently started immunotherapy for progressive disease - 2 cycles of nivolumab thus far.
--- NOTE | 2018-06-24 14:22 | PN ---
Progress Note, Physician Chief Complaint: Lung Ca Rheumatoid arthritis History of Present Illness: NAD wants to see Dr Paige - Current Medication List Current Medications: Active Medications Albuterol Sulfate (Ventolin Hfa Inhaler -) 2 puff IH Q6H PRN PRN Reason: SHORTNESS OF BREATH Alprazolam (Xanax -) 0.5 mg PO BID PRN PRN Reason: ANXIETY Last Admin: 06/23/18 21:48 Dose: 0.5 mg Amlodipine Besylate (Norvasc -) 5 mg PO DAILY [facility] Last Admin: 06/24/18 10:02 Dose: 5 mg Atovaquone (Mepron -) 1,500 mg PO DAILY [facility] Last Admin: 06/24/18 10:00 Dose: 1,500 mg Budesonide/Formoterol Fumarate (Symbicort 160/4.5mcg -) 2 puff IH BID [facility] Last Admin: 06/24/18 10:03 Dose: Not Given Febuxostat (Uloric -) 40 mg PO DAILY [facility] Last Admin: 06/24/18 10:03 Dose: Not Given Leflunomide (Arava -) 20 mg PO DAILY [facility] Last Admin: 06/24/18 10:01 Dose: 20 mg Losartan Potassium (Cozaar -) 50 mg PO DAILY [facility] Last Admin: 06/24/18 10:02 Dose: 50 mg Metformin HCl (Glucophage -) 500 mg PO BIDAC [facility] Last Admin: 06/24/18 06:21 Dose: 500 mg Pantoprazole Sodium (Protonix -) 40 mg PO DAILY [facility] Last Admin: 06/24/18 10:02 Dose: 40 mg Prednisone (Deltasone -) 15 mg PO BID [facility] Last Admin: 06/24/18 10:02 Dose: 15 mg Sitagliptin Phosphate (Januvia -) 50 mg PO DAILY@0700 [facility] Last Admin: 06/24/18 06:22 Dose: 50 mg Sulfasalazine (Azulfidine En-Tabs -) 1,000 mg PO BID [facility] Last Admin: 06/24/18 10:02 Dose: 1,000 mg Tramadol HCl (Ultram -) 50 mg PO Q8H PRN PRN Reason: PAIN LEVEL 1-5 Last Admin: 06/22/18 16:17 Dose: 50 mg Zolpidem Tartrate (Ambien -) 5 mg PO HS PRN PRN Reason: INSOMNIA - Objective Vital Signs: Vital Signs Temperature 98.5 F 06/24/18 13:42 Pulse Rate 101 H 06/24/18 13:42 Respiratory Rate 18 06/24/18 13:42 Blood Pressure 121/68 06/24/18 13:42 O2 Sat by Pulse Oximetry (%) 96 06/23/18 21:00 Constitutional: Yes: Well Nourished, No Distress, Calm, Obese Cardiovascular: Yes: Regular Rate and Rhythm Respiratory: Yes: Regular Gastrointestinal: Yes: Normal Bowel Sounds, Soft Musculoskeletal: Yes: WNL Extremities: Yes: WNL Edema: No Peripheral Pulses WNL: Yes Neurological: Yes: Alert, Oriented Psychiatric: Yes: Alert, Oriented Labs: CBC, BMP 06/23/18 06:59 06/23/18 06:59 Assessment/Plan (1) Rheumatoid arthritis Assessment/Plan: -continue Sulfasalazine and Prednisone -PT -pain management -Seen by Rheumatology -Started on Leflunomide Code(s): M06.9 - RHEUMATOID ARTHRITIS, UNSPECIFIED (2) SCC (squamous cell carcinoma of lung) Assessment/Plan: -oncology on board Code(s): C34.90 - MALIGNANT NEOPLASM OF UNSP PART OF UNSP BRONCHUS OR LUNG (3) HTN (hypertension) Assessment/Plan: -Amlodipine and Cozaar -low Na diet Code(s): I10 - ESSENTIAL (PRIMARY) HYPERTENSION (4) Diabetes Assessment/Plan: -BGM ACHS -Sitagliptan and Metformin -ISS -diabetic diet Code(s): E11.9 - TYPE 2 DIABETES MELLITUS WITHOUT COMPLICATIONS Did well with physical therapy
[2018-06-24] MEDS ORDERED: ZOLPIDEM TARTRATE 5 MG TABLET PO ONE (20:30)
[2018-06-24] MEDS: ALPRAZolam 0.25 MG TABLET PO PRN (23:35)
[2018-06-25] MEDS: metFORMIN HCL 500 MG TABLET (FP) PO SCH (06:06)
[2018-06-25] MEDS: sitaGLIPtin PHOSPHATE 50 MG TABLET PO SCH (06:06)
[2018-06-25 07:34] LABS: ALBUMIN 2.7 g/dl (3.4-5.0); CALCIUM 9.4 mg/dL (8.5-10.1); CREATININE 1.3 mg/dL (0.55-1.3); POTASSIUM 4.5 mmol/L (3.5-5.1); TOT PROT 6.3 g/dl (6.4-8.2)
[2018-06-25 08:19] LABS: BASO % 0.2 % (0-2.0); EOS % 0.1 % (0-4.5); HEMATOCRIT 29.5 % (32.4-45.2); LYMPH % 18.9 % (8-40); MCH 31.9 pg (25.7-33.7); MCHC 33.7 g/dl (32.0-36.0); MEAN CELL VOLUME 94.6 fl (80-96); MEAN PLT VOLUME 8.1 fl (7.5-11.1); MONO % 5.9 % (3.8-10.2); NEUT % 74.9 % (42.8-82.8); PLATELET COUNT 215 K/MM3 (134-434); RBC 3.12 M/mm3 (3.60-5.2); RDW 19.3 % (11.6-15.6); WHITE BLOOD COUNT 9.4 K/mm3 (4.0-10.0)
[2018-06-25] MEDS ORDERED: PT OWN MED DRAWER 7, Y5N ONE (09:49)
[2018-06-25] MEDS: LOSARTAN POTASSIUM 50 MG TABLET (FP) PO SCH (10:27)
[2018-06-25] MEDS: ATOVAQUONE 750 MG/5 ML (UNIT-DOSE PACKAGING) PO SCH (10:27)
[2018-06-25] MEDS: PANTOPRAZOLE 40 MG TABLET (FP) PO SCH (10:27)
[2018-06-25] MEDS: predniSONE 10 MG TABLET (UD) PO SCH (10:27)
[2018-06-25] MEDS: FEBUXOSTAT 40 MG TAB PO SCH (10:28)
[2018-06-25] MEDS: LEFLUNOMIDE 10 MG TABLET PO SCH (10:28)
[2018-06-25] MEDS: BUDESONIDE/FORMETEROL FUMARATE 160/4.5 mcg INHALER IH SCH (10:28)
[2018-06-25] MEDS: amLODIPine BESYLATE 5 MG TABLET (FP) PO SCH (10:28)
--- NOTE | 2018-06-25 12:47 | DS ---
Physical Examination Vital Signs: Vital Signs Temperature 98.2 F 06/25/18 05:40 Pulse Rate 98 H 06/25/18 10:00 Respiratory Rate 20 06/25/18 10:00 Blood Pressure 152/91 06/25/18 10:00 O2 Sat by Pulse Oximetry (%) 98 06/25/18 09:00 Findings/Remarks: Patient is a 73 y/o female with past medical history of Lung CA, RA, DM, HTN. Patient was admitted for flare up of Rheumatoid Arthritis. Physical therapy request ordered and able to walk 80 feet with walker. Patient evaluated by scale attendant and oncology. On examination patient denies chest pain, SOB, nausea, vomiting. Patient was noted to be tearful and admits to feeling depressed, denies SI. Psychiatry consult placed. Patient will be discharged home with VNS services and PT. Constitutional: Yes: No Distress, Calm Eyes: Yes: Conjunctiva Clear HENT: Yes: Atraumatic Cardiovascular: Yes: Regular Rate and Rhythm Respiratory: Yes: Regular, CTA Bilaterally Gastrointestinal: Yes: Normal Bowel Sounds, Soft, Abdomen, Obese Musculoskeletal: Yes: Muscle Weakness Extremities: Yes: WNL Edema: No Neurological: Yes: Alert, Oriented Psychiatric: Yes: Alert, Oriented Labs: CBC, BMP 06/25/18 06:30 06/25/18 06:30 Discharge Summary Reason For Visit: LUNG CANCER Hospital Course: see progress notes Laboratory Tests 06/21/18 06/21/18 06/21/18 14:20 14:20 14:20 WBC 11.1 H RBC 3.39 L Hgb 10.1 L Hct 31.6 L MCV 93.2 MCH 29.9 MCHC 32.1 RDW 19.7 H Plt Count 261 D MPV 8.6 Absolute Neuts (auto) 8.4 H Neutrophils % 76.0 Lymphocytes % 17.7 Monocytes % 5.9 Eosinophils % 0.2 D Basophils % 0.2 Nucleated RBC % 0 Sodium 136 Potassium 3.6 Chloride 101 Carbon Dioxide 29 Anion Gap 6 L BUN 26 H Creatinine 1.2 Est GFR (CKD-EPI)AfAm 52.29 Est GFR (CKD-EPI)NonAf 45.11 POC Glucometer Random Glucose 179 H Calcium 9.1 Magnesium 1.7 L Total Bilirubin 0.9 Direct Bilirubin 0.3 H AST 19 ALT 25 Alkaline Phosphatase 88 LD Total Creatine Kinase Total Protein 6.6 Albumin 2.8 L TSH 0.52 Free T4 1.69 H 06/22/18 06/23/18 06/23/18 06:47 05:58 06:59 WBC RBC Hgb Hct MCV MCH MCHC RDW Plt Count MPV Absolute Neuts (auto) Neutrophils % Lymphocytes % Monocytes % Eosinophils % Basophils % Nucleated RBC % Sodium 137 Potassium 4.7 Chloride 104 Carbon Dioxide 24 Anion Gap 9 BUN 32 H Creatinine 1.5 H Est GFR (CKD-EPI)AfAm 39.92 Est GFR (CKD-EPI)NonAf 34.45 POC Glucometer 173 147 Random Glucose 149 H Calcium 9.1 Magnesium Total Bilirubin 0.8 Direct Bilirubin AST 15 ALT 17 Alkaline Phosphatase 74 LD Total 328 H Creatine Kinase 58 Total Protein 5.7 L Albumin 2.5 L TSH Free T4 06/23/18 06/25/18 06/25/18 06:59 05:43 06:30 WBC 6.8 9.4 RBC 2.97 L 3.12 L Hgb 8.9 L 10.0 L Hct 27.6 L 29.5 L MCV 93.0 94.6 MCH 30.1 31.9 MCHC 32.4 33.7 RDW 19.3 H 19.3 H Plt Count 219 215 MPV 8.2 8.1 Absolute Neuts (auto) 4.6 7.0 Neutrophils % 68.4 74.9 Lymphocytes % 24.6 D 18.9 D Monocytes % 6.8 5.9 Eosinophils % 0.1 0.1 Basophils % 0.1 0.2 Nucleated RBC % 0 0 Sodium Potassium Chloride Carbon Dioxide Anion Gap BUN Creatinine Est GFR (CKD-EPI)AfAm Est GFR (CKD-EPI)NonAf POC Glucometer 136 Random Glucose Calcium Magnesium Total Bilirubin Direct Bilirubin AST ALT Alkaline Phosphatase LD Total Creatine Kinase Total Protein Albumin TSH Free T4 06/25/18 06:30 WBC RBC Hgb Hct MCV MCH MCHC RDW Plt Count MPV Absolute Neuts (auto) Neutrophils % Lymphocytes % Monocytes % Eosinophils % Basophils % Nucleated RBC % Sodium 138 Potassium 4.5 Chloride 102 Carbon Dioxide 27 Anion Gap 8 BUN 33 H Creatinine 1.3 Est GFR (CKD-EPI)AfAm 47.46 Est GFR (CKD-EPI)NonAf 40.95 POC Glucometer Random Glucose 144 H Calcium 9.4 Magnesium Total Bilirubin 1.0 Direct Bilirubin AST 17 ALT 19 Alkaline Phosphatase 86 LD Total Creatine Kinase Total Protein 6.3 L Albumin 2.7 L TSH Free T4 Active Medications Generic Name Dose Route Start Last Admin Trade Name Freq PRN Reason Stop Dose Admin Albuterol Sulfate 2 puff 06/21/18 21:35 Ventolin Hfa Inhaler - IH Q6H PRN SHORTNESS OF BREATH Alprazolam 0.5 mg 06/21/18 21:35 06/24/18 23:35 Xanax - PO 0.5 mg BID PRN Administration ANXIETY Amlodipine Besylate 5 mg 06/22/18 10:00 06/25/18 10:28 Norvasc - PO 5 mg DAILY [facility] Administration Atovaquone 1,500 mg 06/22/18 10:00 06/25/18 10:27 Mepron - PO 1,500 mg DAILY [facility] Administration Budesonide/Formoterol Fumarate 2 puff 06/22/18 10:00 06/25/18 10:28 Symbicort 160/4.5mcg - IH Not Given BID [facility] Febuxostat 40 mg 06/22/18 10:00 06/25/18 10:28 Uloric - PO Not Given DAILY [facility] Leflunomide 20 mg 06/23/18 10:00 06/25/18 10:28 Arava - PO 20 mg DAILY [facility] Administration Losartan Potassium 50 mg 06/22/18 10:00 06/25/18 10:27 Cozaar - PO 50 mg DAILY [facility] Administration Metformin HCl 500 mg 06/22/18 07:00 06/25/18 06:06 Glucophage - PO 500 mg BIDAC [facility] Administration Pantoprazole Sodium 40 mg 06/22/18 10:00 06/25/18 10:27 Protonix - PO 40 mg DAILY [facility] Administration Prednisone 15 mg 06/21/18 22:00 06/25/18 10:27 Deltasone - PO 15 mg BID [facility] Administration Sitagliptin Phosphate 50 mg 06/22/18 07:00 06/25/18 06:06 Januvia - PO 50 mg DAILY@0700 [facility] Administration Sulfasalazine 1,000 mg 06/21/18 22:00 06/25/18 10:27 Azulfidine En-Tabs - PO 1,000 mg BID [facility] Administration Zolpidem Tartrate 5 mg 06/23/18 22:00 Ambien - PO HS PRN INSOMNIA Condition: Stable - Instructions Diet, Activity, Other Instructions: Follow up with Dr Paige for chemotherapy as planned Follow up with Dr Jeffries for Rheumatoid Arthritis follow up with Dr Ibarra continue with medication regimen return to ER if develop respiratory distress, chest pain, fever, AMS, severe pain Referrals: Leah Ibarra MD [Staff Physician] - Herrera Jeffries MD [Staff Physician] - Disposition: VNS/HOME HEALTH CARE - Home Medications Comprehensive Discharge Medication List: Ambulatory Orders Albuterol Sulfate Inhaler - [Ventolin HFA Inhaler -] 2 inh PO Q6H 06/15/18 Alprazolam [Xanax] 0.25 mg PO DAILY 06/15/18 Amlodipine Besylate [Norvasc -] 5 mg PO DAILY 06/15/18 Azithromycin [Zithromax -] 250 mg PO DAILY 06/15/18 Blood-Glucose Meter [Freestyle Lite Meter] 1 each [facility] ACHS 06/15/18 Budesonide/Formeterol Fumarate [SYMBICORT 160/4.5mcg -] 1 inh PO BID 06/15/18 Cefuroxime Axetil [Ceftin -] 500 mg PO Q12H 06/15/18 Febuxostat [Uloric -] 40 mg PO DAILY 06/15/18 Losartan Potassium [Cozaar -] 50 mg PO DAILY 06/15/18 Methotrexate [Mexate -] 2.5 mg PO Q7D 06/15/18 Pantoprazole Sodium [Protonix -] 40 mg PO DAILY 06/15/18 Tramadol HCl [Ultram] 50 mg PO DAILY 06/15/18 Zolpidem Tartrate [Ambien] 10 mg PO DAILY 06/15/18 Acetaminophen [Tylenol .Extra-Strength -] 500 mg PO Q6H PRN tablet 06/19/18 Atovaquone [Mepron Oral Solution -] 1,500 mg PO DAILY@0800 #1 bottle 06/19/18 Losartan Potassium [Cozaar -] 50 mg PO DAILY tablet 06/19/18 Sitagliptin Phosphate [Januvia -] 50 mg PO DAILY@0700 #30 tablet 06/19/18 metFORMIN HCL [Glucophage -] 500 mg PO BID@0700,1630 #60 tablet 06/19/18 Albuterol Sulfate Inhaler - [Ventolin HFA Inhaler -] 2 puff IH Q6H PRN inhaler 06/25/18 Alprazolam [Xanax] 0.5 mg PO BID PRN tablet MDD 2 06/25/18 Amlodipine Besylate [Norvasc -] 5 mg PO DAILY tablet 06/25/18 Atovaquone [Mepron Oral Solution -] 1,500 mg PO DAILY #1 bottle 06/25/18 Budesonide/Formeterol Fumarate [SYMBICORT 160/4.5mcg -] 2 puff IH BID inhaler 06/25/18 Febuxostat [Uloric -] 40 mg PO DAILY tab 06/25/18 Leflunomide [Arava -] 20 mg PO DAILY #60 tablet 06/25/18 Losartan Potassium [Cozaar -] 50 mg PO DAILY tablet 06/25/18 Pantoprazole Sodium [Protonix -] 40 mg PO DAILY tablet.ec 06/25/18 Sitagliptin Phosphate [Januvia -] 50 mg PO DAILY@0700 tablet 06/25/18 Sulfasalazine [Azulfidine En-Tabs -] 1,000 mg PO BID #120 tablet.dr 06/25/18 metFORMIN HCL [Glucophage -] 500 mg PO BIDAC tablet 06/25/18 predniSONE [Deltasone -] 15 mg PO BID #60 tablet 06/25/18 traMADol HCL [Ultram -] 50 mg PO Q8H PRN tablet MDD 3 06/25/18
[2018-06-25 14:15] VITALS: BP 150/90; PULSE 108; TEMP 98.5
== END 2018-06-25 16:37 | disposition home health service (06) | DRG 546 ==
LOC: JONCCHEMO 07:11 → J7W 13:14 → JONCCHEMO 13:15 → J7W 16:08
PROVIDERS: ADMIT Family Medicine; ATTEND Family Medicine
DX: M06.9 Rheumatoid arthritis, unspecified (principal); C34.90 Malignant neoplasm of unspecified part of unspecified bronchus or lung; C79.51 Secondary malignant neoplasm of bone; I10 Essential (primary) hypertension; E11.65 Type 2 diabetes mellitus with hyperglycemia; E66.9 Obesity, unspecified; Z68.32 Body mass index [BMI] 32.0-32.9, adult; F41.9 Anxiety disorder, unspecified
CPT/HCPCS: 36415; 80048; 80053; 80076; 82550; 82962; 83615; 83735; 84439; 84443; 85025; 96361; 96375; 96413; 96417; 97116-GP; 97161-GP; J9299

== ENCOUNTER 2018-06-21 09:53 | Emergency (ER) | payer OTHER ==
[2018-06-21 10:19] VITALS: TEMP 98.5; BMI 48.0
[2018-06-21] MEDS ORDERED: ACETAMINOPHEN 500 MG TABLET (FP) PO ONE (10:26)
--- NOTE | 2018-06-21 10:49 | PDOC ---
History of Present Illness - General Chief Complaint: Pain Stated Complaint: FALL Time Seen by Provider: 06/21/18 10:19 History Source: Patient Exam Limitations: No Limitations - History of Present Illness Initial Comments: 06/21/18 10:43 Patient is a 73F with history of stage 4 lung cancer, htn, RA here today complaining of pain to her knees. She was taken in by ambulance because she was not able to get up and walk. Patient normally walks at baseline. Patient states that she wants to talk to Dr Paige, as she is scheduled for immunotherapy today. Patient states she also has pain in her hands. Patient states that she does not want other treatment, stating that she's fine. She declines labs, x- rays, ekg. She asks for tylenol for pain. Denies trauma. Past History - Past Medical History Allergies/Adverse Reactions: Allergies Allergy/AdvReac Type Severity Reaction Status Date / Time aspirin AdvReac Mild Verified 06/21/18 10:00 Home Medications: Ambulatory Orders Albuterol Sulfate Inhaler - [Ventolin HFA Inhaler -] 2 inh PO Q6H 06/15/18 Alprazolam [Xanax] 0.25 mg PO DAILY 06/15/18 Amlodipine Besylate [Norvasc -] 5 mg PO DAILY 06/15/18 Atovaquone 750 mg PO DAILY 06/15/18 Azithromycin [Zithromax -] 250 mg PO DAILY 06/15/18 Blood-Glucose Meter [Freestyle Lite Meter] 1 each [facility] 06/15/18 Budesonide/Formeterol Fumarate [SYMBICORT 160/4.5mcg -] 1 inh PO BID 06/15/18 Cefuroxime Axetil [Ceftin -] 500 mg PO Q12H 06/15/18 Febuxostat [Uloric -] 40 mg PO DAILY 06/15/18 Losartan Potassium [Cozaar -] 50 mg PO DAILY 06/15/18 Methotrexate [Mexate -] 2.5 mg PO Q7D 06/15/18 Pantoprazole Sodium [Protonix -] 40 mg PO DAILY 06/15/18 Prednisolone [Millipred] 5 mg PO DAILY 06/15/18 [address]asalazine [Sulfasalazine Dr] 500 mg PO DAILY 06/15/18 Tramadol HCl [Ultram] 50 mg PO DAILY 06/15/18 Zolpidem Tartrate [Ambien] 10 mg PO DAILY 06/15/18 Acetaminophen [Tylenol .Extra-Strength -] 500 mg PO Q6H PRN tablet 06/19/18 Atovaquone [Mepron Oral Solution -] 1,500 mg PO DAILY@0800 #1 bottle 06/19/18 Losartan Potassium [Cozaar -] 50 mg PO DAILY tablet 06/19/18 Sitagliptin Phosphate [Januvia -] 50 mg PO DAILY@0700 #30 tablet 06/19/18 Sulfasalazine [Azulfidine En-Tabs -] 500 mg PO DAILY tablet. 06/19/18 metFORMIN HCL [Glucophage -] 500 mg PO BID@0700,1630 #60 tablet 06/19/18 predniSONE [Deltasone -] 25 mg PO DAILY #150 tablet 06/19/18 Anemia: No Asthma: No Cancer: Yes (lung) Cardiac Disorders: No CVA: No COPD: No CHF: No Dementia: No Diabetes: No (BORDERLINE) GI Disorders: Yes Disorders: No HTN: Yes Hypercholesterolemia: No Liver Disease: No Psychiatric Problems: Yes (depression) Seizures: No Thyroid Disease: No Lung CA: Yes - Surgical History Abdominal Surgery: No Appendectomy: No Cardiac Surgery: No Cholecystectomy: No Lung Surgery: Yes (right lobectomy 2014) Neurologic Surgery: No Orthopedic Surgery: No - Immunization History Immunization Up to Date: Yes - Suicide/Smoking/Psychosocial Hx Smoking Status: Yes Smoking History: Never smoked Have you smoked in the past 12 months: No Number of Cigarettes Smoked Daily: 10 If you are a former smoker, when did you quit?: 12/16/14 Information on smoking cessation initiated: No 'Breaking Loose' booklet given: 08/24/15 Hx Alcohol Use: No Drug/Substance Use Hx: No Substance Use Type: None Hx Substance Use Treatment: No Review of Systems - Review of Systems Able to Perform ROS?: Yes Comments:: 06/21/18 10:49 GENERAL/CONSTITUTIONAL: No fever or chills. No weakness. HEAD, EYES, EARS, NOSE AND THROAT: No change in vision. No ear pain or discharge. No sore throat. CARDIOVASCULAR: No chest pain or shortness of breath RESPIRATORY: No cough, wheezing, or hemoptysis. GASTROINTESTINAL: No nausea, vomiting, diarrhea or constipation. GENITOURINARY: No dysuria, frequency, or change in urination. MUSCULOSKELETAL: +knee pain, hand pain. No neck or back pain. SKIN: No rash NEUROLOGIC: No headache, vertigo, loss of consciousness, or change in strength/ sensation. ENDOCRINE: No increased thirst. No abnormal weight change ALLERGIC/IMMUNOLOGIC: No hives or skin allergy. *Physical Exam - Vital Signs Last Vital Signs Temp Pulse Resp BP Pulse Ox 98.5 F 107 H 20 155/85 95 06/21/18 09:54 06/21/18 09:54 06/21/18 09:54 06/21/18 09:54 06/21/18 09:54 - Physical Exam Comments: 06/21/18 10:50 GENERAL: Awake, alert, and fully oriented, in no acute distress KNEE: Limited ROM bilaterally, tender on right more than left. Neurovascularly intact distal to knees, no hematoma HEAD: No signs of trauma, normocephalic, atraumatic EYES: PERRLA, EOMI, sclera anicteric, conjunctiva clear ENT: Auricles normal inspection, hearing grossly normal, nares patent, oropharynx clear without exudates. Moist mucosa NECK: Normal ROM, supple, no lymphadenopathy, JVD, or masses LUNGS: No distress, speaks full sentences, clear to auscultation bilaterally HEART: Regular rate and rhythm, normal S1 and S2, no murmurs, rubs or gallops, peripheral pulses normal and equal bilaterally. ABDOMEN: Soft, nontender, normoactive bowel sounds. No guarding, no rebound. No masses EXTREMITIES: Normal inspection, Normal range of motion, no edema. No clubbing or cyanosis. NEUROLOGICAL: Cranial nerves II through XII grossly intact. Normal speech, no focal sensorimotor deficits SKIN: Warm, Dry, normal turgor, no rashes or lesions noted. Medical Decision Making - Medical Decision Making 06/21/18 10:50 Patient is 73F with history of RA, lung cancer, htn here today with knee pain and inability to ambulate. Vitals notable for mild tachycardia. Patient is declining further testing, including blood tests, IV placement, ekg, x-rays at this time. Will respect wishes. Dr Grecia bazan. Dispo pending. 06/21/18 11:38 Case d/w Dr Paige, states that if patient is stable she can be discharged to clinic for infusion. Will discharge with wheelchair per patient's request. *DC/Admit/Observation/Transfer Diagnosis at time of Disposition: Knee pain - Discharge Dispostion Disposition: HOME Condition at time of disposition: Good Decision to Admit order: No - Referrals Referrals: Juventino Ruby MD [Primary Care Provider] - - Patient Instructions Additional Instructions: Please follow up with Dr Paige in clinic as discussed. Please return if you have any new, worsening or concerning symptoms, especially increasing pain, fever and chest pain. - Post Discharge Activity
[2018-06-21] MEDS ORDERED: ACETAMINOPHEN 325 MG TABLET (FP) ONE (10:51)
[2018-06-21 11:10] LABS: PH,URINE 6.5 (5.0-8.0); URINE APPEARANCE CLEAR; URINE BILIRUBIN NEGATIVE (NEGATIVE); URINE COLOR YELLOW; URINE GLUCOSE (UA) 1+ (NEGATIVE); URINE KETONE NEGATIVE (NEGATIVE); URINE LEUK ESTERASE NEGATIVE (NEGATIVE); URINE NITRITE NEGATIVE (NEGATIVE); URINE PROTEIN TRACE (NEGATIVE); URINE UROBILINOGEN 0.2 mg/dL (0.2-1.0)
[2018-06-21 12:21] VITALS: BP 140/82; PULSE 90
--- NOTE | 2018-06-21 12:37 | PDOC ---
Documentation entered by Eliane Dennis SCRIBE, acting as scribe for Bryce Luis MD. Bryce Luis MD: This documentation has been prepared by the Jeannie villalba Amanda, SCRIBE, under my direction and personally reviewed by me in its entirety. I confirm that the documentation accurately reflects all work, treatment, procedures, and medical decision making performed by me. Attending Attestation - Resident Resident Name: Abisai Weir - ED Attending Attestation I have performed the following: I have examined & evaluated the patient, The case was reviewed & discussed with the resident, I agree w/resident's findings & plan - HPI HPI: 06/21/18 10:40 The patient is a 73 year old female with a significant past medical history of metastatic squamous cell lung cancer, s/p surgery, adjuvant chemotherapy, hypertension, RA on routine infusions of immunotherapy who presents today with inability to get up from bed this morning secondary to b/l knee pain from her RA. She was forced to activate EMS and presents to the ED c/o persistent routine pain. Denies any new swelling/fall/f/c. The patient denies CP, SOB, dizziness, palpitations. The patient denies any other complaints at this time. Allergies: Aspirin Hem/Onc: Dr. Paige - Physicial Exam PE: 06/21/18 10:42 GENERAL: The patient is awake, alert, and fully oriented, in no acute distress. HEAD:Normal with no signs of trauma. EYES: Pupils equal, round and reactive to light, extraocular movements intact, sclera anicteric, conjunctiva clear. EXTREMITIES: arthritic changes to b/l MCP joints, slight R knee swelling without large effusion, LROM 2/2 pain, no warmth/erthema, 2+ distal pulses NEUROLOGICAL: Normal speech, gait deferred. PSYCH: Normal mood, normal affect. SKIN: Warm, Dry, normal turgor, no rashes or lesions noted. - Medical Decision Making 06/21/18 12:35 73y/o F with acute on chronic RA flare and difficulty standing this morning 2/2 her b/l knee pain. no evidence of acute infectious process or injury. She is refusing any intervention whatsoever except to go upstairs for her scheduled infusion. discussed with Dr. Paige, agrees and will see the patient upstairs. will consider steroid course for exacerbation
== END 2018-06-21 12:21 | disposition home or self-care (01) ==
LOC: JER 09:53
DX: M06.862 Other specified rheumatoid arthritis, left knee (principal); M06.861 Other specified rheumatoid arthritis, right knee; C34.90 Malignant neoplasm of unspecified part of unspecified bronchus or lung; I10 Essential (primary) hypertension; F32.9 Major depressive disorder, single episode, unspecified; Z87.19 Personal history of other diseases of the digestive system; Z87.891 Personal history of nicotine dependence
CPT/HCPCS: 81003; 87086; 99281-25

== ENCOUNTER 2018-07-04 07:11 | Day surgery (SDC) | payer OTHER | END 2018-07-04 12:20 | disposition home or self-care (01) | LOC: JONCCHEMO 07:11 → J7W 10:10 → JONCCHEMO 12:20 ==

== ENCOUNTER 2018-07-18 06:56 | Day surgery (SDC) | payer OTHER | END 2018-07-18 12:30 | disposition home or self-care (01) | LOC: JONCCHEMO 06:56 → J7W 10:07 → JONCCHEMO 12:30 ==

== ENCOUNTER 2018-08-01 07:10 | Day surgery (SDC) | payer OTHER ==
[2018-08-01] MEDS ORDERED: DIPHENHYDRAMINE 25 MG in SODIUM CHLORIDE 50 ML IVPB ONE (09:00)
[2018-08-01] MEDS ORDERED: ACETAMINOPHEN 325 MG TABLET (FP) PO ONE (09:00)
[2018-08-01] MEDS ORDERED: NIVOLUMAB 200 MG, NIVOLUMAB 40 MG in SODIUM CHLORIDE 100 ML IVPB ONE (09:30)
[2018-08-01 10:12] LABS: BASO % 0.4 % (0-2.0); EOS % 0.3 % (0-4.5); HEMATOCRIT 35.1 % (32.4-45.2); HEMOGLOBIN 11.5 GM/dL (10.7-15.3); MCH 29.6 pg (25.7-33.7); MCHC 32.8 g/dl (32.0-36.0); MEAN CELL VOLUME 90.2 fl (80-96); MEAN PLT VOLUME 7.3 fl (7.5-11.1); MONO % 6.4 % (3.8-10.2); NEUT % 78.9 % (42.8-82.8); PLATELET COUNT 239 K/MM3 (134-434); RBC 3.89 M/mm3 (3.60-5.2); WHITE BLOOD COUNT 9.4 K/mm3 (4.0-10.0)
[2018-08-01 11:00] LABS: ALBUMIN 3.1 g/dl (3.4-5.0); BILIRUBIN,DIRECT 0.2 mg/dL (0.0-0.2); BILIRUBIN,TOTAL 0.6 mg/dL (0.2-1); BLOOD UREA NITROGEN 14.8 mg/dL (7-18); CREATININE 1.1 mg/dL (0.55-1.3); POTASSIUM 4.1 mmol/L (3.5-5.1); TOT PROT 6.6 g/dl (6.4-8.2)
[2018-08-01] MEDS ORDERED: PORTA CATH FLUSH 10 ML IVPUSH ONE (17:15)
[2018-08-01 17:25] VITALS: BP 160/90; PULSE 104; TEMP 97
== END 2018-08-01 13:15 | disposition home or self-care (01) ==
LOC: JONCCHEMO 07:10 → J7W 10:38 → JONCCHEMO 13:15
PROVIDERS: ATTEND Internal Medicine Hematology & Oncology
DX: Z51.11 Encounter for antineoplastic chemotherapy (principal); C34.91 Malignant neoplasm of unspecified part of right bronchus or lung
CPT/HCPCS: 36415; 80048; 80076; 82150; 83690; 83735; 84443; 85025; 96375; 96413; J9299

== ENCOUNTER 2018-08-15 07:07 | Day surgery (SDC) | payer OTHER ==
[2018-08-15] MEDS ORDERED: DIPHENHYDRAMINE 25 MG in SODIUM CHLORIDE 50 ML IVPB ONE (09:00)
[2018-08-15] MEDS ORDERED: ACETAMINOPHEN 325 MG TABLET (FP) PO ONE (09:00)
[2018-08-15] MEDS ORDERED: NIVOLUMAB 200 MG, NIVOLUMAB 40 MG in SODIUM CHLORIDE 100 ML IVPB ONE (09:30)
[2018-08-15 10:00] LABS: BASO % 0.5 % (0-2.0); EOS % 0.2 % (0-4.5); HEMATOCRIT 35.6 % (32.4-45.2); HEMOGLOBIN 11.5 GM/dL (10.7-15.3); LYMPH % 15.1 % (8-40); MCH 29.2 pg (25.7-33.7); MCHC 32.4 g/dl (32.0-36.0); MEAN CELL VOLUME 90.1 fl (80-96); MEAN PLT VOLUME 7.5 fl (7.5-11.1); MONO % 5.6 % (3.8-10.2); NEUT % 78.6 % (42.8-82.8); PLATELET COUNT 249 K/MM3 (134-434); RBC 3.95 M/mm3 (3.60-5.2); RDW 17.8 % (11.6-15.6); WHITE BLOOD COUNT 10.7 K/mm3 (4.0-10.0)
[2018-08-15 10:32] LABS: BILIRUBIN,DIRECT 0.2 mg/dL (0.0-0.2); BILIRUBIN,TOTAL 0.6 mg/dL (0.2-1); BLOOD UREA NITROGEN 21.5 mg/dL (7-18); CALCIUM 9.1 mg/dL (8.5-10.1); CREATININE 1.2 mg/dL (0.55-1.3); MAGNESIUM 2.1 mg/dL (1.8-2.4); POTASSIUM 3.8 mmol/L (3.5-5.1); TOT PROT 6.5 g/dl (6.4-8.2)
[2018-08-15] MEDS ORDERED: ALBUTEROL SO4 0.083% IH SOL 2.5 MG/3 ML VIAL.NEB. NEB ONE ×2 (11:19→11:30)
[2018-08-15] MEDS ORDERED: ALBUTEROL SO4 0.083% IH SOL 2.5 MG/3 ML VIAL.NEB. NEB PRN (11:25)
[2018-08-15 17:52] VITALS: TEMP 97.9
[2018-08-15 18:10] VITALS: BP 130/70; PULSE 80
[2018-08-15] MEDS ORDERED: PORTA CATH FLUSH 10 ML IVPUSH ONE (18:10)
== END 2018-08-15 14:00 | disposition home or self-care (01) ==
LOC: JONCCHEMO 07:07 → J7W 11:07 → JONCCHEMO 14:00
PROVIDERS: ATTEND Internal Medicine Hematology & Oncology
DX: Z51.11 Encounter for antineoplastic chemotherapy (principal); C34.91 Malignant neoplasm of unspecified part of right bronchus or lung
CPT/HCPCS: 36415; 80048; 80076; 83735; 85025; 94640; 96375; 96413; J9299

== ENCOUNTER 2018-08-28 16:18 | Observation (INO) | payer OTHER ==
[2018-08-28 16:44] VITALS: BMI 29.7
--- NOTE | 2018-08-28 18:08 | PDOC ---
Documentation entered by Justin Griffith SCRIBE, acting as scribe for Nithya Eddy MD. Nithya Eddy MD: This documentation has been prepared by the Gladis villalba Elijah, SCRIBE, under my direction and personally reviewed by me in its entirety. I confirm that the documentation accurately reflects all work, treatment, procedures, and medical decision making performed by me. Attending Attestation - Resident Resident Name: Yandel Zarate - ED Attending Attestation I have performed the following: I have examined & evaluated the patient, The case was reviewed & discussed with the resident, I agree w/resident's findings & plan, Exceptions are as noted - HPI HPI: 73 yo F stage IV lung CA s/p partial lobectomy presents with sudden onset SOB since yesterday. Denies cough, cp. +RLE swelling. No fever. - Physicial Exam PE: GENERAL: Awake, alert, and fully oriented, in no acute distress HEAD: No signs of trauma EYES: PERRLA, EOMI, sclera anicteric, conjunctiva clear ENT: Auricles normal inspection, hearing grossly normal, nares patent, oropharynx clear without exudates. Moist mucosa NECK: Normal ROM, supple, no lymphadenopathy, JVD, or masses LUNGS: Good air entry R side. Dec air entry with crackles noted to L sided lung robertson. Well-healed scar to R posterior chest wall HEART: Regular rate and rhythm, normal S1 and S2, no murmurs, rubs or gallops ABDOMEN: Soft, nontender, normoactive bowel sounds. No guarding, no rebound. No masses EXTREMITIES: Normal range of motion, no edema. No clubbing or cyanosis. No cords, erythema, or tenderness NEUROLOGICAL: Cranial nerves II through XII grossly intact. Normal speech, normal gait. Motor and sensation intact SKIN: Warm, dry, normal turgor, no rashes or lesions noted. - Medical Decision Making Pt with history lung CA, currently on chemo presenting with abrupt onset SOB, RLE swelling since yesterday while exerting herself. DDx includes PE, pleural effusion, pericardial effusion. Will obtain labs, CXR. If CXR does not show an obvious cause of symptoms, will obtain CTA to r/o PE.
--- NOTE | 2018-08-28 18:20 | PDOC ---
History of Present Illness - General Chief Complaint: Shortness of Breath Stated Complaint: SHORTNESS OF BREATH Time Seen by Provider: 08/28/18 16:55 - History of Present Illness Initial Comments: 08/28/18 18:24 73y/o F hx of stage IV lung cancer s/p partial lobectomy currently on immunotherapy,htn and RA presents to the ED with sob. sob started yesterday suddenly. Patient is currently on home oxygen and sob was not relieved by its use. sob is exacerbated by exertion and relieved with rest. Pt. called EMS after sob worsened this morning and she was given a nebulizer treatment en route. She does have some cough productive of clear sputum and she is experiencing some chest pressure in the center of her chest. She denies chest pain, fevers, chills, pleuritic chest pain or hemoptysis Past History - Past Medical History Allergies/Adverse Reactions: Allergies Allergy/AdvReac Type Severity Reaction Status Date / Time aspirin AdvReac Mild Verified 08/28/18 16:37 Home Medications: Ambulatory Orders Alprazolam [Xanax] 0.25 mg PO DAILY 06/15/18 Blood-Glucose Meter [Freestyle Lite Meter] 1 each [facility] ACHS 06/15/18 Losartan Potassium [Cozaar -] 50 mg PO DAILY 06/15/18 Pantoprazole Sodium [Protonix -] 40 mg PO DAILY 06/15/18 Zolpidem Tartrate [Ambien] 10 mg PO DAILY 06/15/18 Acetaminophen [Tylenol .Extra-Strength -] 500 mg PO Q6H PRN tablet 06/19/18 Atovaquone [Mepron Oral Solution -] 1,500 mg PO DAILY@0800 #1 bottle 06/19/18 Albuterol Sulfate Inhaler - [Ventolin HFA Inhaler -] 2 puff IH Q6H PRN inhaler 06/25/18 Amlodipine Besylate [Norvasc -] 5 mg PO DAILY tablet 06/25/18 Leflunomide [Arava -] 20 mg PO DAILY #60 tablet 06/25/18 Sulfasalazine [Azulfidine En-Tabs -] 1,000 mg PO BID #120 tablet. 06/25/18 predniSONE [Deltasone -] 15 mg PO BID #60 tablet 06/25/18 traMADol HCL [Ultram -] 50 mg PO Q8H PRN tablet MDD 3 06/25/18 Anemia: No Asthma: No Cancer: Yes (lung) Cardiac Disorders: No CVA: No COPD: No CHF: No Dementia: No Diabetes: No (BORDERLINE) GI Disorders: Yes Disorders: No HTN: Yes Hypercholesterolemia: No Liver Disease: No Psychiatric Problems: Yes (depression) Seizures: No Thyroid Disease: No Lung CA: Yes - Surgical History Abdominal Surgery: No Appendectomy: No Cardiac Surgery: No Cholecystectomy: No Lung Surgery: Yes (right lobectomy 2014) Neurologic Surgery: No Orthopedic Surgery: No - Immunization History Immunization Up to Date: Yes - Suicide/Smoking/Psychosocial Hx Smoking Status: Yes Smoking History: Unknown if ever smoked Have you smoked in the past 12 months: No Number of Cigarettes Smoked Daily: 10 If you are a former smoker, when did you quit?: 12/16/14 'Breaking Loose' booklet given: 08/24/15 Hx Alcohol Use: No Drug/Substance Use Hx: No Substance Use Type: None Hx Substance Use Treatment: No *Physical Exam - Vital Signs Last Vital Signs Temp Pulse Resp BP Pulse Ox 98.1 F 101 H 18 111/83 99 08/28/18 16:37 08/28/18 16:41 08/28/18 16:37 08/28/18 16:37 08/28/18 16:41 Medical Decision Making - Medical Decision Making 08/28/18 18:20 73 y/o F hx of stage IV lung cancer s/p partial lung lobectomy and currently on immunotherapy presenting with Sob Labs & Imaging -pt/inr, ptt,cbc cardiac profile cmp bnp cxr 08/28/18 18:43 Home meds prednisone 15mg po and sulfasalazine 1000mg po given 08/28/18 19:06 cxr results shown. multiple opacifications same as on older x-ray. considering cta for p.e rule out pending chemistry Signed out to Dr. Mosley
[2018-08-28] MEDS ORDERED: predniSONE 10 MG TABLET (UD) PO ONE (18:41)
[2018-08-28] MEDS ORDERED: predniSONE 5 MG TABLET (UD) PO ONE (18:49)
[2018-08-28] MEDS ORDERED: predniSONE 10 MG TABLET (UD) ONE (18:54)
[2018-08-28 19:13] LABS: HEMATOCRIT 33.4 % (32.4-45.2); HEMOGLOBIN 10.9 GM/dL (10.7-15.3); MCH 29.1 pg (25.7-33.7); MCHC 32.6 g/dl (32.0-36.0); MEAN CELL VOLUME 89.2 fl (80-96); RBC 3.75 M/mm3 (3.60-5.2); RDW 17.7 % (11.6-15.6); WHITE BLOOD COUNT 16.2 K/mm3 (4.0-10.0)
[2018-08-28 19:27] LABS: INR 1.08 (0.83-1.09); PROTHROMBIN TIME (PATIENT) 12.8 SEC (9.7-13.0)
--- NOTE | 2018-08-28 19:31 | PDOC ---
*Physical Exam - Vital Signs Last Vital Signs Temp Pulse Resp BP Pulse Ox 97.7 F 94 H 18 128/62 99 08/28/18 17:23 08/28/18 17:23 08/28/18 16:37 08/28/18 17:23 08/28/18 17:23 ED Treatment Course - LABORATORY CBC & Chemistry Diagram: 08/28/18 18:27 08/28/18 18:27 - ADDITIONAL ORDERS Additional order review: Laboratory Results 08/28/18 08/28/18 08/28/18 18:27 18:27 18:27 PT with INR 12.80 INR 1.08 PTT (Actin FS) Sodium Cancelled Potassium Cancelled Chloride Cancelled Carbon Dioxide Cancelled Anion Gap Cancelled BUN Cancelled Creatinine Cancelled Est GFR (CKD-EPI)AfAm Cancelled Est GFR (CKD-EPI)NonAf Cancelled Random Glucose Cancelled Calcium Cancelled Total Bilirubin Cancelled AST Cancelled ALT Cancelled Alkaline Phosphatase Cancelled B-Natriuretic Peptide Cancelled Total Protein Cancelled Albumin Cancelled 08/28/18 18:27 PT with INR INR PTT (Actin FS) 19.4 L Sodium Potassium Chloride Carbon Dioxide Anion Gap BUN Creatinine Est GFR (CKD-EPI)AfAm Est GFR (CKD-EPI)NonAf Random Glucose Calcium Total Bilirubin AST ALT Alkaline Phosphatase B-Natriuretic Peptide Total Protein Albumin 08/28/18 18:27 RBC 3.75 MCV 89.2 MCHC 32.6 RDW 17.7 H Neutrophils % No Result Required. Lymphocytes % No Result Required. - Medications Given in the ED: ED Medications Discontinued Medications Generic Name Dose Route Start Last Admin Trade Name Freq PRN Reason Stop Dose Admin Prednisone 15 mg 08/28/18 18:41 08/28/18 18:56 Deltasone - PO 08/28/18 18:42 Not Given ONCE ONE Prednisone 5 mg 08/28/18 18:49 08/28/18 18:56 Deltasone - PO 08/28/18 18:50 5 mg ONCE ONE Administration Medical Decision Making - Medical Decision Making 08/28/18 19:29 Patient signed out by Dr Brito 73 y/o F hx of stage IV lung cancer s/p partial lung lobectomy and currently on immunotherapy presenting with SOB Will followup CMP, BNP, Cardiac profile; if Cr within nml limits, will proceed to CTA chest for ruleout PE 08/28/18 20:02 Cr 1.0 and is patient's baseline BNP 1100 Will continue with CTA chest 08/28/18 22:25 Patient IV infiltrated and required US guided IV placement Patient now ready for CTA Signed out to Dr Dinero for further followup *DC/Admit/Observation/Transfer Diagnosis at time of Disposition: Shortness of breath - Referrals Referrals: Juventino Ruby MD [Primary Care Provider] - - Patient Instructions - Post Discharge Activity
[2018-08-28 19:51] LABS: ALK PHOS 92 U/L (45-117); ANION GAP 6 MMOL/L (8-16); BILIRUBIN,TOTAL 0.3 mg/dL (0.2-1); BLOOD UREA NITROGEN 16.2 mg/dL (7-18); CALCIUM 9.2 mg/dL (8.5-10.1); CHLORIDE 108 mmol/L (98-107); CO2 27 mmol/L (21-32); GLUCOSE,RANDOM 107 mg/dL (74-106); N-TERMINAL BNP 1104.8 pg/ml (5-125); POTASSIUM 4.2 mmol/L (3.5-5.1); SGOT/AST 20 U/L (15-37); SGPT/ALT 14 U/L (13-61); SODIUM 141 mmol/L (136-145); TOT PROT 6.2 g/dl (6.4-8.2)
[2018-08-28 20:28] LABS: MEAN PLT VOLUME 8.4 fl (7.5-11.1); PLATELET COUNT 239 K/MM3 (134-434)
--- NOTE | 2018-08-28 22:41 | PDOC ---
*Physical Exam - Vital Signs Last Vital Signs Temp Pulse Resp BP Pulse Ox 97.7 F 94 H 18 128/62 99 08/28/18 17:23 08/28/18 17:23 08/28/18 16:37 08/28/18 17:23 08/28/18 17:23 ED Treatment Course - LABORATORY CBC & Chemistry Diagram: 08/28/18 18:27 08/28/18 18:27 - ADDITIONAL ORDERS Additional order review: Laboratory Results 08/28/18 08/28/18 08/28/18 18:27 18:27 18:27 PT with INR 12.80 INR 1.08 PTT (Actin FS) Sodium Cancelled Potassium Cancelled Chloride Cancelled Carbon Dioxide Cancelled Anion Gap Cancelled BUN Cancelled Creatinine Cancelled Est GFR (CKD-EPI)AfAm Cancelled Est GFR (CKD-EPI)NonAf Cancelled Random Glucose Cancelled Calcium Cancelled Total Bilirubin Cancelled AST Cancelled ALT Cancelled Alkaline Phosphatase Cancelled Creatine Kinase Troponin I B-Natriuretic Peptide Cancelled Total Protein Cancelled Albumin Cancelled 08/28/18 08/28/18 18:27 18:27 PT with INR INR PTT (Actin FS) 19.4 L Sodium 141 Potassium 4.2 Chloride 108 H Carbon Dioxide 27 Anion Gap 6 L BUN 16.2 Creatinine 1.0 Est GFR (CKD-EPI)AfAm 65.18 Est GFR (CKD-EPI)NonAf 56.24 Random Glucose 107 H Calcium 9.2 Total Bilirubin 0.3 AST 20 ALT 14 Alkaline Phosphatase 92 Creatine Kinase 49 Troponin I < 0.02 B-Natriuretic Peptide 1104.8 H Total Protein 6.2 L Albumin 3.0 L 08/28/18 18:27 RBC 3.75 MCV 89.2 MCHC 32.6 RDW 17.7 H MPV 8.4 D Neutrophils % No Result Required. Lymphocytes % No Result Required. - Medications Given in the ED: ED Medications Discontinued Medications Generic Name Dose Route Start Last Admin Trade Name Freq PRN Reason Stop Dose Admin Prednisone 15 mg 08/28/18 18:41 08/28/18 18:56 Deltasone - PO 08/28/18 18:42 Not Given ONCE ONE Prednisone 5 mg 08/28/18 18:49 08/28/18 18:56 Deltasone - PO 08/28/18 18:50 5 mg ONCE ONE Administration Medical Decision Making - Medical Decision Making 08/28/18 22:39 Sign out received from Dr Mosley. Reina Fulton is a 73yo woman with a PMH of stage 4 lung CA s/p partial lobectomy on immunotherapy, RA, HTN who prsents to the ED with exertional shortness of breath since yesterday. ED course so far notable for: - Labs completed. Leukocytosis to 16, higher than previous, BNP 1100 with no comparison - CXR w/ small effusion - CT-PE study ordered 08/29/18 00:08 - CT negative for PE or acute change from previous - Pt feeling improved, but concerned that she will have continued SOB if she goes home due to heat/humidity - Medicine team contacted regarding ED obs for overnight, will accept for ED obs. Discussed with Dr Choe. Roxanna Dinero PGY2 *DC/Admit/Observation/Transfer Diagnosis at time of Disposition: Shortness of breath - Discharge Dispostion Decision to Admit order: Yes - Referrals - Patient Instructions - Post Discharge Activity
--- NOTE | 2018-08-29 00:59 | HP ---
CHIEF COMPLAINT: SOB PCP: HISTORY OF PRESENT ILLNESS: 73 year old female with PMH of stage 4 lung CA s/p partial lobectomy on immunotherapy, RA, HTN, COPD who arrived to the ED with exertional shortness of breath since yesterday. Patient called EMS after sob worsened this morning, EMS gave nebulizer treatment en route. Patient denies chest pain, fevers, chills. ER course was notable for: (1) BNP 1100, CXR: multiple opacifications (2) RLE US: Negative for DVT (3)CTA:no evidence of pulmonary embolism Recent Travel: no PAST MEDICAL HISTORY: stage 4 lung CA s/p partial lobectomy on immunotherapy, RA , HTN, COPD PAST SURGICAL HISTORY: right lobectomy 2014 Social History: Smoking: smokes 5 cigarettes a day, quit 2 days ago Alcohol:no Drugs: no Allergies: aspirin Adverse Reaction (Mild, Verified 08/28/18 16:37) upset stomach, gastritis HOME MEDICATIONS: Home Medications Medication Instructions Recorded Alprazolam [Xanax] 0.25 mg PO DAILY 06/15/18 Blood-Glucose Meter [Freestyle 1 each [facility] ACHS 06/15/18 Lite Meter] Losartan Potassium [Cozaar -] 50 mg PO DAILY 06/15/18 Pantoprazole Sodium [Protonix -] 40 mg PO DAILY 06/15/18 Zolpidem Tartrate [Ambien] 10 mg PO DAILY 06/15/18 Acetaminophen [Tylenol 500 mg PO Q6H PRN tablet 06/19/18 .Extra-Strength -] Atovaquone [Mepron Oral Solution -] 1,500 mg PO DAILY@0800 #1 bottle 06/19/18 Albuterol Sulfate Inhaler - 2 puff IH Q6H PRN inhaler 06/25/18 [Ventolin HFA Inhaler -] Amlodipine Besylate [Norvasc -] 5 mg PO DAILY tablet 06/25/18 Leflunomide [Arava -] 20 mg PO DAILY #60 tablet 06/25/18 Sulfasalazine [Azulfidine En-Tabs 1,000 mg PO BID #120 tablet. 06/25/18 -] predniSONE [Deltasone -] 15 mg PO BID #60 tablet 06/25/18 traMADol HCL [Ultram -] 50 mg PO Q8H PRN tablet MDD 3 06/25/18 REVIEW OF SYSTEMS CONSTITUTIONAL: Absent: fever, chills, diaphoresis, generalized weakness, malaise, loss of appetite, weight change HEENT: Absent: rhinorrhea, nasal congestion, throat pain, throat swelling, difficulty swallowing, mouth swelling, ear pain, eye pain, visual changes CARDIOVASCULAR: Absent: chest pain, syncope, palpitations, irregular heart rate , lightheadedness, peripheral edema RESPIRATORY: + shortness of breath, dyspnea with exertion GASTROINTESTINAL:Absent: abdominal pain, abdominal distension, nausea, vomiting , diarrhea, constipation, melena, hematochezia GENITOURINARY: Absent: dysuria, frequency, urgency, hesitancy, hematuria, flank pain, genital pain MUSCULOSKELETAL: Absent: myalgia, arthralgia, joint swelling, back pain, neck pain SKIN: Absent: rash, itching, pallor NEUROLOGIC: Absent: headache, focal weakness or paresthesias, dizziness, unsteady gait, seizure, mental status changes, bladder or bowel incontinence PSYCHIATRIC: +anxiety, absent suicidal or homicidal ideation, hallucinations. PHYSICAL EXAMINATION Vital Signs - 24 hr 08/28/18 08/28/18 08/28/18 16:37 16:41 17:23 Temperature 98.1 F 97.7 F Pulse Rate 101 H 101 H Pulse Rate [ 94 H Right Radial] Respiratory 18 Rate Blood Pressure 111/83 Blood Pressure 128/62 [Left Arm] O2 Sat by Pulse 99 99 99 Oximetry (%) 08/28/18 21:00 Temperature Pulse Rate Pulse Rate [ 108 H Right Radial] Respiratory Rate Blood Pressure Blood Pressure 155/75 [Left Arm] O2 Sat by Pulse 97 Oximetry (%) ENERAL: Awake, alert , NAD HEENT: NC/AT, EOMI, PERRLA NECK: Normal ROM, supple, no lymphadenopathy, JVD LUNGS: air entry fair, slightly decrease L sided, R posterior chest wall with port HEART: Regular rate and rhythm, normal S1 and S2, no murmurs, rubs or gallops ABDOMEN: Soft, nontender, normoactive bowel sounds. No guarding, no rebound. EXTREMITIES: Normal range of motion, no edema. No clubbing or cyanosis. NEUROLOGICAL: Cranial nerves II through XII grossly intact. Normal speech, Motor and sensation intact SKIN: Warm, dry Laboratory Results - last 24 hr 08/28/18 08/28/18 08/28/18 18:27 18:27 18:27 WBC 16.2 H RBC 3.75 Hgb 10.9 Hct 33.4 MCV 89.2 MCH 29.1 MCHC 32.6 RDW 17.7 H Plt Count 239 MPV 8.4 D Absolute Neuts (auto) 12.5 H Total Counted 100 Neutrophils % No Result Required. Neutrophils % (Manual) 77.0 Lymphocytes % No Result Required. Lymphocytes % (Manual) 21.0 D Monocytes % (Manual) 1 L D Eosinophils % (Manual) 1.0 D Nucleated RBC % 0 PT with INR INR PTT (Actin FS) 19.4 L Sodium 141 Potassium 4.2 Chloride 108 H Carbon Dioxide 27 Anion Gap 6 L BUN 16.2 Creatinine 1.0 Est GFR (CKD-EPI)AfAm 65.18 Est GFR (CKD-EPI)NonAf 56.24 Random Glucose 107 H Calcium 9.2 Total Bilirubin 0.3 AST 20 ALT 14 Alkaline Phosphatase 92 Creatine Kinase 49 Troponin I < 0.02 B-Natriuretic Peptide 1104.8 H Total Protein 6.2 L Albumin 3.0 L 08/28/18 08/28/18 08/28/18 18:27 18:27 18:27 WBC RBC Hgb Hct MCV MCH MCHC RDW Plt Count MPV Absolute Neuts (auto) Total Counted Neutrophils % Neutrophils % (Manual) Lymphocytes % Lymphocytes % (Manual) Monocytes % (Manual) Eosinophils % (Manual) Nucleated RBC % PT with INR 12.80 INR 1.08 PTT (Actin FS) Sodium Cancelled Potassium Cancelled Chloride Cancelled Carbon Dioxide Cancelled Anion Gap Cancelled BUN Cancelled Creatinine Cancelled Est GFR (CKD-EPI)AfAm Cancelled Est GFR (CKD-EPI)NonAf Cancelled Random Glucose Cancelled Calcium Cancelled Total Bilirubin Cancelled AST Cancelled ALT Cancelled Alkaline Phosphatase Cancelled Creatine Kinase Troponin I B-Natriuretic Peptide Cancelled Total Protein Cancelled Albumin Cancelled ASSESSMENT/PLAN: 73 year old female with PMH of stage 4 lung CA s/p partial lobectomy on immunotherapy, RA, HTN, COPD. Patient currently at this in ED obs # SOB r/o DVT, PE - CXR: multiple opacifications, no acute finding - RLE US: Negative for DVT - CTA:no evidence of pulmonary embolism - continue with O2 via NC, monitor Spo2 # stage IV lung cancer s/p partial lung lobectomy - continue with Mepron - patient on immunotherapy every another week - following Dr. Paige oncologist, consult in place # HTN - Continue with Cozaar and Norvac - monitor Bp/HR #RA - continue with Arava - continue with sulfasalazine - Continue with prednisone - continue with pain management # COPD - Continue with Albuterol - continue with O2 via NC, monitor SPo2 Insonmia/ Anxeity - Continue with Ambien - Continue with xanax # GERD - Continue with Protonic Problem List - Problem (1) SOB (shortness of breath) Code(s): R06.02 - SHORTNESS OF BREATH (2) Stage 4 lung cancer Code(s): C34.90 - MALIGNANT NEOPLASM OF UNSP PART OF UNSP BRONCHUS OR LUNG (3) COPD (chronic obstructive pulmonary disease) Code(s): J44.9 - CHRONIC OBSTRUCTIVE PULMONARY DISEASE, UNSPECIFIED (4) HTN (hypertension) Code(s): I10 - ESSENTIAL (PRIMARY) HYPERTENSION (5) Rheumatoid arthritis Code(s): M06.9 - RHEUMATOID ARTHRITIS, UNSPECIFIED (6) GERD (gastroesophageal reflux disease) Code(s): K21.9 - GASTRO-ESOPHAGEAL REFLUX DISEASE WITHOUT ESOPHAGITIS (7) Insomnia Code(s): G47.00 - INSOMNIA, UNSPECIFIED (8) Anxiety Code(s): F41.9 - ANXIETY DISORDER, UNSPECIFIED Visit type - Emergency Visit Emergency Visit: Yes ED Registration Date: 08/29/18 Care time: The patient presented to the Emergency Department on the above date and was hospitalized for further evaluation of their emergent condition. - New Patient This patient is new to me today: Yes Date on this admission: 08/29/18 - Critical Care Critical Care patient: No
[2018-08-29] MEDS ORDERED: traMADol HCL 50 MG TABLET PO PRN (01:04)
[2018-08-29] MEDS ORDERED: ACETAMINOPHEN 500 MG TABLET (FP) PO PRN (01:04)
[2018-08-29] MEDS ORDERED: ALBUTEROL SO4 8 GM HFA INHALER IH PRN (01:04)
[2018-08-29] MEDS ORDERED: ZOLPIDEM TARTRATE 5 MG TABLET PO PRN (01:48)
[2018-08-29] MEDS ORDERED: ZOLPIDEM TARTRATE 5 MG TABLET ONE (03:26)
--- NOTE | 2018-08-29 08:28 | PN ---
Progress Note, Physician History of Present Illness: less sob - Current Medication List Current Medications: Active Medications Acetaminophen (Tylenol -) 500 mg PO Q6H PRN PRN Reason: PAIN 6-10 Albuterol Sulfate (Ventolin Hfa Inhaler -) 2 puff IH Q6H PRN PRN Reason: SHORTNESS OF BREATH Alprazolam (Xanax -) 0.25 mg PO DAILY RICHARD Amlodipine Besylate (Norvasc -) 5 mg PO DAILY RICHARD Atovaquone (Mepron -) 1,500 mg PO DAILY@0800 RICHARD Leflunomide (Arava -) 20 mg PO DAILY RICHARD Losartan Potassium (Cozaar -) 50 mg PO DAILY RICHARD Pantoprazole Sodium (Protonix -) 40 mg PO DAILY RICHARD Prednisone (Deltasone -) 15 mg PO BID RICHARD Sulfasalazine (Azulfidine En-Tabs -) 1,000 mg PO BID RICHARD Tramadol HCl (Ultram -) 50 mg PO Q8H PRN PRN Reason: PAIN LEVEL 1-5 Zolpidem Tartrate (Ambien -) 5 mg PO HS PRN PRN Reason: SLEEP AID Last Admin: 08/29/18 03:33 Dose: 5 mg - Objective Vital Signs: Vital Signs Temperature 98.1 F 08/28/18 19:20 Pulse Rate 108 H 08/28/18 21:00 Respiratory Rate 20 08/28/18 19:20 Blood Pressure 155/75 08/28/18 21:00 O2 Sat by Pulse Oximetry (%) 97 08/28/18 21:00 Cardiovascular: Yes: S1, S2 Respiratory: Yes: CTA Bilaterally, On Nasal O2 Gastrointestinal: Yes: Normal Bowel Sounds, Soft Labs: CBC, BMP 08/28/18 18:27 08/28/18 18:27 INR, PTT INR 1.08 (0.83-1.09) 08/28/18 18:27 Problem List - Problems (1) SOB (shortness of breath) Assessment/Plan: - CXR: multiple opacifications, no acute finding - RLE US: Negative for DVT - CTA:no evidence of pulmonary embolism - continue with O2 via NC, monitor Spo2 -cardio Code(s): R06.02 - SHORTNESS OF BREATH (2) Stage 4 lung cancer Assessment/Plan: - continue with Mepron - patient on immunotherapy - Dr. Paige oncologist Code(s): C34.90 - MALIGNANT NEOPLASM OF UNSP PART OF UNSP BRONCHUS OR LUNG (3) COPD (chronic obstructive pulmonary disease) Assessment/Plan: Nebs Code(s): J44.9 - CHRONIC OBSTRUCTIVE PULMONARY DISEASE, UNSPECIFIED (4) GERD (gastroesophageal reflux disease) Code(s): K21.9 - GASTRO-ESOPHAGEAL REFLUX DISEASE WITHOUT ESOPHAGITIS (5) Diabetes Code(s): E11.9 - TYPE 2 DIABETES MELLITUS WITHOUT COMPLICATIONS (6) Rheumatoid arthritis Assessment/Plan: - continue with Arava - continue with sulfasalazine - Continue with prednisone - continue with pain management Code(s): M06.9 - RHEUMATOID ARTHRITIS, UNSPECIFIED (7) Leukocytosis Assessment/Plan: -maybe due to stroids monitor id consult Code(s): D72.829 - ELEVATED WHITE BLOOD CELL COUNT, UNSPECIFIED
[2018-08-29] MEDS: ATOVAQUONE 750 MG/5 ML (UNIT-DOSE PACKAGING) PO SCH (08:45)
[2018-08-29] MEDS ORDERED: ALPRAZolam 0.25 MG TABLET ONE (09:30)
[2018-08-29] MEDS: ALPRAZolam 0.25 MG TABLET PO SCH (09:40)
[2018-08-29] MEDS: PANTOPRAZOLE 40 MG TABLET (FP) PO SCH (09:40)
[2018-08-29] MEDS: predniSONE 5 MG TABLET (UD) PO SCH ×2 (09:40→21:33)
[2018-08-29] MEDS: LEFLUNOMIDE 10 MG TABLET PO SCH (09:40)
[2018-08-29] MEDS: amLODIPine BESYLATE 5 MG TABLET (FP) PO SCH (09:40)
[2018-08-29] MEDS: LOSARTAN POTASSIUM 50 MG TABLET (FP) PO SCH (09:40)
[2018-08-29] MEDS ORDERED: ALBUTEROL SO4 2.5/IPRATROPIUM 0.5 INH SOL 3 ML VIAL.NEB. NEB ONE ×2 (11:46→16:54)
[2018-08-29] MEDS: ALBUTEROL SO4 2.5/IPRATROPIUM 0.5 INH SOL 3 ML VIAL.NEB. NEB SCH ×3 (11:49→21:22)
--- NOTE | 2018-08-29 15:24 | CON.CARD ---
Consult Consult Specialty:: Cardiology Referred by:: Mariusz Cornejo Reason for Consultation:: SOB - History of Present Illness Chief Complaint: sob History of Present Illness: 73 year old female with a pmhx of stage 4 lung CA s/p partial lobectomy and immunotherapy, RA, htn, copd, and h/o systolic CHF in past (reduced LVEF on echo 2016) here with exertional sob last couple days. Says she feels better. Has been noticing little more sob with activities and at night. No chest pain. No palpitations or near syncope. (1) BNP 1100, CXR: multiple opacifications (2) RLE US: Negative for DVT (3)CTA:no evidence of pulmonary embolism - History Source History Provided By: Patient, Medical Record - Past Medical History Cardio/Vascular: Yes: HTN Pulmonary: Yes: Other (Lung cancer --stage IIB . squamous cell) Rheumatology: Yes: Other (rheumatoid arthritis) - Alcohol/Substance Use Hx Alcohol Use: No - Smoking History Smoking history: Unknown if ever smoked Have you smoked in the past 12 months: No Aproximately how many cigarettes per day: 10 If you are a former smoker, when did you quit?: 12/16/14 - Social History ADL: Independent History of Recent Travel: No Home Medications - Allergies Allergies/Adverse Reactions: Allergies Allergy/AdvReac Type Severity Reaction Status Date / Time aspirin AdvReac Mild Verified 08/28/18 16:37 - Home Medications Home Medications: Ambulatory Orders Alprazolam [Xanax] 0.25 mg PO DAILY 06/15/18 Blood-Glucose Meter [Freestyle Lite Meter] [address] [facility] 06/15/18 Losartan Potassium [Cozaar -] 50 mg PO DAILY 06/15/18 Pantoprazole Sodium [Protonix -] 40 mg PO DAILY 06/15/18 Zolpidem Tartrate [Ambien] 10 mg PO DAILY 06/15/18 Acetaminophen [Tylenol .Extra-Strength -] 500 mg PO Q6H PRN tablet 06/19/18 Atovaquone [Mepron Oral Solution -] 1,500 mg PO DAILY@0800 #1 bottle 06/19/18 Albuterol Sulfate Inhaler - [Ventolin HFA Inhaler -] 2 puff IH Q6H PRN inhaler 06/25/18 Amlodipine Besylate [Norvasc -] 5 mg PO DAILY tablet 06/25/18 Leflunomide [Arava -] 20 mg PO DAILY #60 tablet 06/25/18 Sulfasalazine [Azulfidine En-Tabs -] 1,000 mg PO BID #120 tablet. 06/25/18 predniSONE [Deltasone -] 15 mg PO BID #60 tablet 06/25/18 traMADol HCL [Ultram -] 50 mg PO Q8H PRN tablet MDD 3 06/25/18 Vital Signs: Vital Signs Temperature 98.6 F 08/29/18 12:02 Pulse Rate 95 H 08/29/18 12:02 Respiratory Rate 17 08/29/18 07:10 Blood Pressure 148/70 08/29/18 12:02 O2 Sat by Pulse Oximetry (%) 98 08/29/18 12:02 Constitutional: Yes: No Distress Neck: Yes: Supple Respiratory: Yes: Rales Gastrointestinal: Yes: Soft Cardiovascular: Yes: Regular Rate and Rhythm JVD: No Carotid Bruit: No PMI: Non-Displaced Heart Sounds: Yes: S1, S2 Murmur: No: Systolic Murmur Edema: LLE: Trace, RLE: Trace - Other Data Labs, Other Data: CBC, BMP 08/28/18 18:27 08/28/18 18:27 INR, PTT INR 1.08 (0.83-1.09) 08/28/18 18:27 Troponin, BNP 08/28/18 08/28/18 18:27 18:27 Troponin I < 0.02 B-Natriuretic Peptide 1104.8 H Cancelled Troponin, BNP 08/28/18 08/28/18 18:27 18:27 Troponin I < 0.02 B-Natriuretic Peptide 1104.8 H Cancelled Imaging - Results Chest X-ray: Report Reviewed Assessment/Plan 73 year old female with a pmhx of stage 4 lung CA s/p partial lobectomy and immunotherapy, RA, htn, copd, and h/o systolic CHF in past (reduced LVEF on echo 2016) here with exertional sob last couple days. Says she feels better. Has been noticing little more sob with activities and at night. No chest pain. No palpitations or near syncope. (1) BNP 1100, CXR: multiple opacifications (2) RLE US: Negative for DVT (3)CTA:no evidence of pulmonary embolism 1) SOB Likely multifactorial withi lung disease/cancer along with some congestion/chf. BNP elevated and h/o CHF in the past. Feels better now F/u pulmonary rec's Would continue home bp meds for now. Can start low dose furosemide 20mg daily PO EKG 12 lead Echocardiogram
--- NOTE | 2018-08-29 16:18 | PN ---
Progress Note (short form) - Note Progress Note: PATIENT SEEN AND EXAMINED 43 year old female who presented with shortness of breath, dyspnea and elevated BNP Past history of lung ca with multiple prior lines of therapy. Currently on Nivolumab Ongoing smoker of several cigarettes per day. Work up in ER with vascular study of RLE - negative for DVT ; CTA - no pulmonary emboli but multiple nodules . Had BNP of 110. PMH COPD Lung ca Rheumatoid arthritis Surgical history - partial lobectomy Allergies- ASA Current Medications Generic Name Dose Route Start Last Admin Trade Name Freq PRN Reason Stop Dose Admin Acetaminophen 500 mg 08/29/18 01:04 Tylenol - PO Q6H PRN PAIN 6-10 Albuterol Sulfate 2 puff 08/29/18 01:04 Ventolin Hfa Inhaler - IH Q6H PRN SHORTNESS OF BREATH Albuterol/Ipratropium 1 amp 08/29/18 12:00 08/29/18 11:49 Duoneb - NEB 1 amp RQID RICHARD Administration Alprazolam 0.25 mg 08/29/18 10:00 08/29/18 09:40 Xanax - PO Not Given DAILY RICHARD Amlodipine Besylate 5 mg 08/29/18 10:00 08/29/18 09:40 Norvasc - PO 5 mg DAILY RICHARD Administration Atovaquone 1,500 mg 08/29/18 08:00 08/29/18 08:45 Mepron - PO 1,500 mg DAILY@0800 RICHARD Administration Furosemide 20 mg 08/29/18 16:00 Lasix - PO DAILY RICHARD Leflunomide 20 mg 08/29/18 10:00 08/29/18 09:40 Arava - PO 20 mg DAILY RICHARD Administration Losartan Potassium 50 mg 08/29/18 10:00 08/29/18 09:40 Cozaar - PO 50 mg DAILY RICHARD Administration Pantoprazole Sodium 40 mg 08/29/18 10:00 08/29/18 09:40 Protonix - PO 40 mg DAILY RICHARD Administration Prednisone 15 mg 08/29/18 10:00 08/29/18 09:40 Deltasone - PO 15 mg BID RICHARD Administration Sulfasalazine 1,000 mg 08/29/18 10:00 08/29/18 09:40 Azulfidine En-Tabs - PO 1,000 mg BID RICHARD Administration Tramadol HCl 50 mg 08/29/18 01:04 Ultram - PO Q8H PRN PAIN LEVEL 1-5 Zolpidem Tartrate 5 mg 08/29/18 01:48 08/29/18 03:33 Ambien - PO 5 mg HS PRN Administration SLEEP AID ROS no headaches, diplopia, epistaxis, dysphagia, + SOB, dyspnea, chest pain , no nausea, emesis, diarrhea constipation, no back or bone pains No paresthesias Last Vital Signs Temp Pulse Resp BP Pulse Ox 98.6 F 95 H 17 148/70 98 08/29/18 12:02 08/29/18 12:02 08/29/18 07:10 08/29/18 12:02 08/29/18 12:02 HEENT: GIUSEPPE, EOM Intact Oropharynx: No thrush, No mucositis Neck: Supple Nodes: Without adenopathy Breasts: Without masses Cor: RSR, No murmurs, No gallops Lungs: bronchial breath sounds Abd: Soft, Normal bowel sounds, No organomegaly Ext:No significant edema Skin: No rashes, Integument intact CBC, BMP 08/28/18 18:27 08/28/18 18:[address] reviewed Impression: Lung ca on Nivolumab COPD CHF Rheumatoid arthritis Plan Low dose diuretic When cleared , nivolumab
[2018-08-29] MEDS ORDERED: FUROSEMIDE 40 MG TABLET (FP) ONE (16:54)
[2018-08-29] MEDS: FUROSEMIDE 20 MG TABLET (FP) PO SCH (17:00)
--- NOTE | 2018-08-29 18:09 | PN ---
Progress Note (short form) - Note Progress Note: ID CONSULT DICTATED LEUKOCYTOSIS MULTIFACTORIAL ( PREDNISONE, METASTATIC CA) DOUBT PNEUMONIA OBTAIN C/S OBSERVE OFF ANTIBIOTICS
[2018-08-29] MEDS ORDERED: PT OWN MED DRAWER 7, Y5N ONE (21:11)
[2018-08-30 06:55] VITALS: PULSE 102
[2018-08-30] MEDS: ALBUTEROL SO4 2.5/IPRATROPIUM 0.5 INH SOL 3 ML VIAL.NEB. NEB SCH (08:18)
[2018-08-30] MEDS ORDERED: PT OWN MED DRAWER 7, Y5N ONE (08:54)
[2018-08-30] MEDS: LEFLUNOMIDE 10 MG TABLET PO SCH (09:01)
[2018-08-30] MEDS: ATOVAQUONE 750 MG/5 ML (UNIT-DOSE PACKAGING) PO SCH (09:02)
[2018-08-30] MEDS: FUROSEMIDE 20 MG TABLET (FP) PO SCH (09:04)
[2018-08-30] MEDS: predniSONE 5 MG TABLET (UD) PO SCH (09:04)
[2018-08-30] MEDS: LOSARTAN POTASSIUM 50 MG TABLET (FP) PO SCH (09:05)
[2018-08-30] MEDS: ALPRAZolam 0.25 MG TABLET PO SCH (09:06)
[2018-08-30] MEDS: PANTOPRAZOLE 40 MG TABLET (FP) PO SCH (09:07)
[2018-08-30] MEDS: amLODIPine BESYLATE 5 MG TABLET (FP) PO SCH (09:07)
[2018-08-30 09:09] VITALS: BP 151/90; TEMP 98.1
--- NOTE | 2018-08-30 11:05 | CONS ---
INFECTIOUS DISEASE CONSULTATION DATE OF CONSULTATION: DATE OF DICTATION: 08/30/2018 The patient is a 73-year-old female with a history of metastatic lung cancer on immunotherapy, evaluated for leukocytosis. The patient was admitted to the hospital on August 27, 2018, with worsening shortness of breath and chest pressure. She had presented to the emergency room where chest x-ray showed bilateral pulmonary masses. In addition, the patient complained of cough productive of clear sputum. She was noted on initial evaluation to have an elevated white blood cell count of 16.2. The patient has a known history of metastatic, stage IV lung cancer with large pulmonary masses. She has had multiple recent hospital admissions. She last received chemotherapy on August 15, 2018. She is due for her dose of immunotherapy. She complains of cough productive of clear sputum, which has not changed in nature. She denies any purulent sputum production. No hemoptysis. She has had no complaints of fever or chills. No known ill contacts. No recent antibiotic therapy. No recent travel. She continues to smoke. PAST MEDICAL HISTORY: Positive for stage IV lung cancer on immunotherapy, rheumatoid arthritis on prednisone, hypertension, congestive heart failure. PAST SURGICAL HISTORY: Status post partial lobectomy, status post port placement. MEDICATIONS: Include prednisone 15 mg twice a day, Tylenol, Cozaar, Mepron, Ambien, Xanax, and Ventolin. SOCIAL HISTORY: Positive for tobacco use current. LABORATORY DATA: White count 16.2; neutrophils 77, lymphocytes 21; hematocrit 33.4; platelet count 239. Creatinine 1.0. CAT scan CT angiogram of the chest was negative for acute pulmonary embolism. She has multiple bilateral pulmonary masses with no clear evidence of lung consolidation. PHYSICAL EXAMINATION: General: She is out of bed to chair, in no acute distress. Her breathing is non-labored on nasal cannula. Vital Signs: Temperature 98.6; blood pressure 128/70; pulse 92, regular; respirations 20 per minute. HEENT: Sclerae are anicteric. Heart: Sounds S1, S2. Lungs: A few rhonchi, mid lung robertson bilaterally. No rales or wheezing. Abdomen: Obese, soft, nontender. Extremities: Positive for edema. IMPRESSION: 1. Leukocytosis, multifactorial. 2. Stage IV lung cancer. 3. History of rheumatoid arthritis on prednisone. Suspect leukocytosis reflects steroid-induced leukocytosis with likely component of leukemoid reaction secondary to metastatic carcinoma. No clinical or radiographic evidence of pneumonia. Would observe off antibiotic therapy. Obtain blood cultures. Continue PCP prophylaxis with Mepron. Thank you for the kind referral. DANIELA VACA M.D. [id number]
== END 2018-08-30 09:48 | disposition home or self-care (01) ==
LOC: JER 16:18 → JERBED 08-29 00:08 → J6S 08-29 17:42
PROVIDERS: ADMIT Internal Medicine; ATTEND Family Medicine
DX: R06.02 Shortness of breath (principal); I10 Essential (primary) hypertension; C34.91 Malignant neoplasm of unspecified part of right bronchus or lung; R51 Headache; R73.03 Prediabetes; F17.210 Nicotine dependence, cigarettes, uncomplicated; J44.9 Chronic obstructive pulmonary disease, unspecified; M06.9 Rheumatoid arthritis, unspecified; K21.9 Gastro-esophageal reflux disease without esophagitis; G47.00 Insomnia, unspecified; F41.9 Anxiety disorder, unspecified; D72.829 Elevated white blood cell count, unspecified; Z90.2 Acquired absence of lung [part of]; Z92.25 Personal history of immunosuppression therapy; Z99.81 Dependence on supplemental oxygen; Z88.6 Allergy status to analgesic agent
CPT/HCPCS: 36415; 71045-TC-FY; 71275-TC; 80053; 82550; 83880; 84484; 85025; 85610; 85730; 87040; 93971-TC; 99284-25; G0378

== ENCOUNTER 2018-08-30 09:48 | Day surgery (SDC) | payer OTHER ==
[~2018-08-30 09:48] MED LIST changes: -NIVOLUMAB 200 MG, NIVOLUMAB 40 MG in SODIUM CHLORIDE 100 ML IVPB ONE; +NIVOLUMAB 240 MG in SODIUM CHLORIDE 100 ML IVPB ONE
[2018-08-30] MEDS ORDERED: DIPHENHYDRAMINE 25 MG in SODIUM CHLORIDE 50 ML IVPB ONE (10:30)
[2018-08-30] MEDS ORDERED: ACETAMINOPHEN 325 MG TABLET (FP) PO ONE (10:30)
[2018-08-30] MEDS ORDERED: NIVOLUMAB 240 MG in SODIUM CHLORIDE 100 ML IVPB ONE (11:00)
[2018-08-30] MEDS ORDERED: FUROSEMIDE 20 MG TABLET (FP) PO ONE (12:36)
--- NOTE | 2018-08-30 13:24 | DS ---
Physical Examination Findings/Remarks: Patient is a 73 y/o female with past medical history of Lung CA stage 4 s/p partial lobectomy on immunotherapy. RA, HTN, COPD. Patient presented to ER with complaints of exertional SOB since 08/28/18. Discharge Summary Reason For Visit: LUNG CANCER Hospital Course: see progress notes Condition: Stable - Instructions Disposition: HOME - Home Medications Comprehensive Discharge Medication List: Ambulatory Orders Alprazolam [Xanax] 0.25 mg PO DAILY 06/15/18 Blood-Glucose Meter [Freestyle Lite Meter] 1 each MC ACHS 06/15/18 Losartan Potassium [Cozaar -] 50 mg PO DAILY 06/15/18 Pantoprazole Sodium [Protonix -] 40 mg PO DAILY 06/15/18 Zolpidem Tartrate [Ambien] 10 mg PO DAILY 06/15/18 Acetaminophen [Tylenol .Extra-Strength -] 500 mg PO Q6H PRN tablet 06/19/18 Atovaquone [Mepron Oral Solution -] 1,500 mg PO DAILY@0800 #1 bottle 06/19/18 Albuterol Sulfate Inhaler - [Ventolin HFA Inhaler -] 2 puff IH Q6H PRN inhaler 06/25/18 Amlodipine Besylate [Norvasc -] 5 mg PO DAILY tablet 06/25/18 Leflunomide [Arava -] 20 mg PO DAILY #60 tablet 06/25/18 Sulfasalazine [Azulfidine En-Tabs -] 1,000 mg PO BID #120 tablet. 06/25/18 predniSONE [Deltasone -] 15 mg PO BID #60 tablet 06/25/18 traMADol HCL [Ultram -] 50 mg PO Q8H PRN tablet MDD 3 06/25/18 Furosemide [Lasix -] 20 mg PO DAILY #30 tablet 08/29/18
[2018-08-30 17:31] VITALS: BP 153/81; PULSE 91; TEMP 98.1
== END 2018-08-30 16:00 | disposition home or self-care (01) ==
LOC: JONCCHEMO 09:48 → J7W 11:49 → JONCCHEMO 16:00
PROVIDERS: ATTEND Internal Medicine Hematology & Oncology
DX: Z51.11 Encounter for antineoplastic chemotherapy (principal); C34.91 Malignant neoplasm of unspecified part of right bronchus or lung
CPT/HCPCS: 96367; 96375; 96413; J9299

== ENCOUNTER 2018-09-11 16:55 | Inpatient (IN) | payer OTHER ==
--- NOTE | 2018-09-11 17:00 | PDOC ---
Rapid Medical Evaluation Time Seen by Provider: 09/11/18 16:56 Medical Evaluation: Allergies Allergy/AdvReac Type Severity Reaction Status Date / Time aspirin AdvReac Mild Verified 08/28/18 16:37 09/11/18 16:57 I have performed a brief in-person evaluation of this patient. The patient presents with a chief complaint of: midsternal burning sensation. Pmh- Stage IV lung CA Pertinent physical exam findings: Lungs CTAB. mediport present to right ACW. irregular hr I have ordered the following: cardiac w/u The patient will proceed to the ED for further evaluation. Discharge Disposition - Diagnosis Chest pain - Referrals - Patient Instructions - Post Discharge Activity
[2018-09-11] MEDS ORDERED: morphine CARPU-JECT 2 MG/1 ML DISP.SYRIN IVPUSH ONE ×3 (17:56→23:00)
[2018-09-11] MEDS ORDERED: MORPHINE SULFATE 2 MG/ML VIAL ONE ×3 (17:58→23:13)
[2018-09-11] MEDS ORDERED: SODIUM CHLORIDE 0.9% 500 ML INFUS.BAG IV ONE ×2 (18:09→19:32)
--- NOTE | 2018-09-11 18:18 | PDOC ---
Documentation entered by Lori Patel SCRIBE, acting as scribe for Tori Barone MD. Tori Barone MD: This documentation has been prepared by the scribe, Lori Patel SCRIBE, under my direction and personally reviewed by me in its entirety. I confirm that the documentation accurately reflects all work, treatment, procedures, and medical decision making performed by me. Attending Attestation - Resident Resident Name: Nithya Yung - ED Attending Attestation I have performed the following: I have examined & evaluated the patient, The case was reviewed & discussed with the resident, I agree w/resident's findings & plan, Exceptions are as noted - HPI HPI: 09/11/18 18:01 The patient is a 73-year-old female, with a past medical history of stage IV lung cancer s/p RT upper lobectomy currently on immunotherapy, HTN and RA, who presents to the ED with substernal and epigastric pain that began 2 hours prior to arrival. The pain is nonradiating and reproducible. She has an appointment with her Oncologist (Dr. Paige) tomorrow. CTA performed on 08/28/18 showed no PE, infiltrates, or pericardial effusion. Patient noted to have cholelithiasis and pulmonary masses, the most prominent being 8.7 cm. The patient denies any shortness of breath or palpitations. Denies any fevers, chills, nausea, vomiting, or diarrhea. Denies any headache, dizziness, lightheadedness, or changes in strength or sensation. Allergies: Aspirin Surgical History: RT upper lobectomy - 2014 Social History: None reported. PCP: Dr. Toro - Physicial Exam PE: 09/11/18 18:02 GENERAL: (+)Well appearing, well nourished 73 YO who is writhing in pain and clenching her epigastric area. HEENT: Normocephalic, atraumatic. PERRLA, EOMI. No conjunctival pallor. Sclera are non- icteric. Moist mucous membranes. Oropharynx is clear. NECK: Supple. Full ROM. No JVD. Carotid pulses 2+ and symmetric, without bruits. No thyromegaly. No lymphadenopathy. CARDIOVASCULAR: (+)Tachycardic. No murmurs, rubs, or gallops. Distal pulses are 2+ and symmetric. PULMONARY: No evidence of respiratory distress. Lungs clear to auscultation bilaterally. No wheezing, rales or rhonchi. ABDOMINAL: (+)Severe epigastric pain that is reproducible and nonradiating. Soft. Non- distended. No rebound or guarding. No organomegaly. Normoactive bowel sounds. MUSCULOSKELETAL (+)Xiphoid pain. Normal range of motion at all joints. No bony deformities. No CVA tenderness. EXTREMITIES: No cyanosis. No clubbing. No edema. No calf tenderness. SKIN: Warm and dry. Normal capillary refill. No rashes. No jaundice. NEUROLOGICAL: Alert and oriented x3. No gross focal deficits. PSYCHIATRIC: Cooperative. Good eye contact. Appropriate mood and affect. - Medical Decision Making 09/11/18 18:13 EKG was reviewed at 16:[address] Barone and shows sinus tachycardia at 119 with some pvcs. 09/11/18 18:15 09/11/18 18:[address] Lior Toro Oncologist Dr Sylvester Valderrama [facility] Lung cancer PSH partial Right pneumonectomy 09/11/18 18:17Bedside POCUS reveals cholelithiasis -pt given morphine, she is requesting water to drink 09/11/18 19:30 patient's oral temp was 102 and sepsis protocol has been initiated will obtain BC,UA,UC ,lactic acid and give IV Offimev ADMIT to hospitalist 09/11/18 23:23 cxr multiple nodules UA negative ct scan abd/pel: cholelithiasis but no acute cholecystitis, no acute abd pathology appreciated. Mild pericardial thickening
[2018-09-11 18:26] LABS: BASO % 0.3 % (0-2.0); HEMATOCRIT 35.4 % (32.4-45.2); HEMOGLOBIN 11.3 GM/dL (10.7-15.3); LYMPH % 17.8 % (8-40); MCH 28.5 pg (25.7-33.7); MCHC 31.9 g/dl (32.0-36.0); MEAN CELL VOLUME 89.4 fl (80-96); MEAN PLT VOLUME 7.6 fl (7.5-11.1); MONO % 6.4 % (3.8-10.2); NEUT % 75.5 % (42.8-82.8); PLATELET COUNT 273 K/MM3 (134-434); RBC 3.96 M/mm3 (3.60-5.2); RDW 17.5 % (11.6-15.6); WHITE BLOOD COUNT 12.3 K/mm3 (4.0-10.0)
[2018-09-11 18:39] LABS: INR 1.07 (0.83-1.09); PROTHROMBIN TIME (PATIENT) 12.6 SEC (9.7-13.0)
--- NOTE | 2018-09-11 18:50 | PDOC ---
History of Present Illness - General Chief Complaint: Chest Pain Stated Complaint: CHEST PAINS Time Seen by Provider: 09/11/18 16:56 - History of Present Illness Initial Comments: 09/11/18 19:43 73yo F hx of stage IV lung cancer s/p partial RUL lobectomy currently on immunotherapy (previous surgery and radiation), HTN, and RA presents c/o chest pain x3hrs. Pain began when she was sitting relaxing today 3hrs ago, sudden onset, substernal and epigastric, nonradiating, constant, pressure type, reproducible, worse with deep breaths, associated with SOB. Denies hx of similar sx, N/V, F/C, back pain, neck pain, trauma, falls, abdominal pain, numbness/tingling, weakness, diarrhea, constipation, blood in stool, dysruia, hematuria. Pt was last here a week ago. CTA on 08/28/18: no PE, infiltrates or pericardial effusion; + cholelithiasis and pulmonary masses. DNR/DNI. Appt tomorrow with oncologist Dr Paige. PCP: Dr. Toro Past History - Past Medical History Allergies/Adverse Reactions: Allergies Allergy/AdvReac Type Severity Reaction Status Date / Time aspirin AdvReac Mild Verified 08/28/18 16:37 Home Medications: Ambulatory Orders Alprazolam [Xanax] 0.25 mg PO DAILY 06/15/18 Blood-Glucose Meter [Freestyle Lite Meter] 1 each MC ACHS 06/15/18 Losartan Potassium [Cozaar -] 50 mg PO DAILY 06/15/18 Pantoprazole Sodium [Protonix -] 40 mg PO DAILY 06/15/18 Zolpidem Tartrate [Ambien] 10 mg PO DAILY 06/15/18 Acetaminophen [Tylenol .Extra-Strength -] 500 mg PO Q6H PRN tablet 06/19/18 Atovaquone [Mepron Oral Solution -] 1,500 mg PO DAILY@0800 #1 bottle 06/19/18 Albuterol Sulfate Inhaler - [Ventolin HFA Inhaler -] 2 puff IH Q6H PRN inhaler 06/25/18 Amlodipine Besylate [Norvasc -] 5 mg PO DAILY tablet 06/25/18 Leflunomide [Arava -] 20 mg PO DAILY #60 tablet 06/25/18 Sulfasalazine [Azulfidine En-Tabs -] 1,000 mg PO BID #120 tablet. 06/25/18 predniSONE [Deltasone -] 15 mg PO BID #60 tablet 06/25/18 traMADol HCL [Ultram -] 50 mg PO Q8H PRN tablet MDD 3 06/25/18 Furosemide [Lasix -] 20 mg PO DAILY #30 tablet 08/29/18 Anemia: No Asthma: No Cancer: Yes (lung) Cardiac Disorders: No CVA: No COPD: No CHF: No Dementia: No Diabetes: No (BORDERLINE) GI Disorders: Yes Disorders: No HTN: Yes Hypercholesterolemia: No Liver Disease: No Psychiatric Problems: Yes (depression) Seizures: No Thyroid Disease: No Lung CA: Yes - Surgical History Abdominal Surgery: No Appendectomy: No Cardiac Surgery: No Cholecystectomy: No Lung Surgery: Yes (right lobectomy 2014) Neurologic Surgery: No Orthopedic Surgery: No - Immunization History Immunization Up to Date: Yes - Suicide/Smoking/Psychosocial Hx Smoking Status: Yes Smoking History: Unknown if ever smoked Have you smoked in the past 12 months: No Number of Cigarettes Smoked Daily: 10 If you are a former smoker, when did you quit?: 12/16/14 'Breaking Loose' booklet given: 08/24/15 Hx Alcohol Use: No Drug/Substance Use Hx: No Substance Use Type: None Hx Substance Use Treatment: No Review of Systems - Review of Systems Comments:: 09/12/18 01:46 Constitutional: Negative for chills, fever, fatigue. HENT: Negative for sore throat, rhinorrhea, congestion. Eyes: Negative for visual disturbance. Respiratory: Positive for shortness of breath. Negative for cough, and wheezing. Cardiovascular: Positive for substernal pain. Negative for palpitations, and leg swelling. Gastrointestinal: Positive for epigastric pain. Negative for other abdominal pain, blood in stool, constipation, diarrhea, nausea, and vomiting. Genitourinary: Negative for dysuria, flank pain, and hematuria. Musculoskeletal: Negative for myalgias, back pain, and neck pain. Skin: Negative for rash. Neurological: Negative for light-headedness, dizziness, syncope, weakness, numbness and headaches. Psychiatric/Behavioral: Negative for behavioral problems and confusion. *Physical Exam - Vital Signs Last Vital Signs Temp Pulse Resp BP Pulse Ox 98.0 F 90 18 146/90 90 L 09/11/18 16:59 09/11/18 16:59 09/11/18 16:59 09/11/18 17:02 09/11/18 16:59 - Physical Exam Comments: 09/11/18 21:39 Gen: Alert, NAD, uncomfortable-appearing in pain, on O2 NC HEENT: PERRL, EOMI, MMM, NCAT. No conjunctival pallor. Sclera are non-icteric. Oropharynx is clear. CV: Tachycardic. Regular rhythm. No murmurs, rubs, or gallops. PULM: Tachypneic. CTAB, no wheezes, rales, or rhonchi, but difficult to assess due to pt noises 2/2 pain. ABD: epigastric TTP, soft, ND, no rebound tenderness or guarding, no CVA tenderness. BACK: No TTP of c/t/l-spine. No step-offs or deformities. MSK: Xiphoid TTP. No bony deformities. 2+ pulses in all extremities. NEURO: AAOx3. PERRL. No gross CN deficits. Strength and sensation grossly intact throughout. EXTREMITIES: No cyanosis. No clubbing. No edema. No calf tenderness. PSYCH: Normal mood and thought pattern. SKIN: Warm and dry. Normal capillary refill. No rashes. No jaundice. Heart Score/ECG Review - ECG Impressions Comment:: 09/12/18 00:09 Sinus tachycardia, 115bpm, normal axis, no STEs/TWIs ED Treatment Course - LABORATORY CBC & Chemistry Diagram: 09/11/18 18:00 09/11/18 18:00 - ADDITIONAL ORDERS Additional order review: Laboratory Results 09/11/18 18:00 PT with INR 12.60 INR 1.07 09/11/18 18:00 RBC 3.96 MCV 89.4 MCHC 31.9 L RDW 17.5 H MPV 7.6 Neutrophils % 75.5 Lymphocytes % 17.8 Monocytes % 6.4 Eosinophils % 0.0 D Basophils % 0.3 - RADIOLOGY Radiology Studies Ordered: Category Date Time Status ABDOMEN & PELVIS CT WITH CONTR [CT] Stat CT Scan 09/11/18 18:10 Ordered CHEST X-RAY PORTABLE* [RAD] Stat Radiology 09/11/18 17:40 Taken - Medications Given in the ED: ED Medications Discontinued Medications Generic Name Dose Route Start Last Admin Trade Name So PRN Reason Stop Dose Admin Morphine Sulfate 2 mg 09/11/18 17:56 09/11/18 18:00 Morphine Injection - IVPUSH 09/11/18 17:57 2 mg ONCE ONE Administration Morphine Sulfate 2 mg 09/11/18 18:22 09/11/18 18:25 Morphine Injection - IVPUSH 09/11/18 18:23 2 mg ONCE ONE Administration Sodium Chloride 1,000 ml 09/11/18 18:09 09/11/18 18:15 Normal Saline - IV 09/11/18 18:10 1,000 ml ONCE ONE Administration Medical Decision Making - Medical Decision Making 73yo F hx of stage IV lung cancer s/p partial RUL lobectomy currently on immunotherapy (previous surgery and radiation), HTN, and RA presents with nonradiating, reproducible, substernal and epigastric pressure pain x3hrs. Tachycardic, normotensive, tachypneic, O2 93%, in pain. CTA on 08/28/18: no PE, infiltrates or pericardial effusion; + cholelithiasis and pulmonary masses. Location of pain concerning for ACS/IL vs pulmonary etiology (including PNA, CHF , or worsening lung CA) vs GI etiology (cholecystitis, pancreatitis). Low concern for dissection, but evaluate CXR for mediastinal widening. Reproducibility and presentation also low concern for PE - no further testing indicated at this time. Consider other infectious causes of vital signs as well such as UTI. -EKG -CXR, CTAP -Labs: CBC, CMP, Lipase, Cardiac profile, BNP, UA/UC -US IV for access -O2 NC -Morphine 2mg for pain -Dispo: admit pending w/u Obtained US IV access 20 in L AC. EKG reviewed: Sinus tachycardia, 115bpm, normal axis, no STEs/TWIs Las reviewed. WBC 12.3, Trop 0.13, Cr 2.1, BNP 766 (1105 on 08/28/18), UA negative for infection. CXR reviewed. Multiple pulmonary nodules appears similar to prior CT chest. Potentially could have infiltrate hidden within nodules. Change CTAP to without contrast due to Cr. 09/11/18 19:44 Oral temp 102.2. Pt shivering, now tachy to 130s. Start sepsis w/u: cultures, lact, Vanc/Zosyn, Tylenol, additional 1L IVF (EF 39.8%) Paged Dr Grecia Ferreira Repeat trop at 2000 = 0.14 (from 0.13). Lact 2.4. Spoke with Dr. 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 2mg morphine for additional pain. CTAP reviewed. No definite findings of acute pathology. + cholelithiasis, colonic diverticulosis, small nonobstructive L renal calculus, vry numerous b/l pulmonary massess/nodules consistent with prior study but interval development of increased opacity within LLL medially (compared to chest CT 08/28/18) which may be on the basis of an infiltrate and/or neoplastic disease; mild diffuse pericardial thickening. Per CTAP, no definite source of fever identified, although possible PNA present. 09/11/18 23:22 Signed out to admitting, admit to tele under Dr Toro. 09/12/18 00:09 Pt was still in pain - given 2mg Morphine. *DC/Admit/Observation/Transfer Diagnosis at time of Disposition: Chest pain, Sepsis - Discharge Dispostion Condition at time of disposition: Poor Decision to Admit order: Yes - Referrals - Patient Instructions - Post Discharge Activity
[2018-09-11 19:20] LABS: ALBUMIN 3.2 g/dl (3.4-5.0); BILIRUBIN,TOTAL 0.5 mg/dL (0.2-1); BLOOD UREA NITROGEN 31.6 mg/dL (7-18); CALCIUM 9.7 mg/dL (8.5-10.1); CREATININE 2.1 mg/dL (0.55-1.3); MAGNESIUM 1.6 mg/dL (1.8-2.4); N-TERMINAL BNP 766.6 pg/ml (5-125); POTASSIUM 3.5 mmol/L (3.5-5.1)
[2018-09-11] MEDS ORDERED: PIPERACILLIN/TAZOB 3.375 GM 3.375 GM in DEXTROSE 5%-WATER - 50 ML IVPB ONE (19:30)
[2018-09-11] MEDS ORDERED: VANCOMYCIN 1 GM in D5W (PRE-DOCKED) 1,000 MG/250 ML IVPB ONE (19:30)
[2018-09-11] MEDS ORDERED: ACETAMINOPHEN 1000 MG/100 ML VIAL (NON FORMULARY) IVPB ONE (19:32)
[2018-09-11] MEDS ORDERED: ACETAMINOPHEN INJECTION 100 ML IVPB ONE (19:39)
[2018-09-11] MEDS ORDERED: PIPERACILLIN/TAZOB 3.375 GM 3.375 GM/50 ML BAG IVPB ONE (20:00)
[2018-09-11 20:30] LABS: URINE APPEARANCE CLEAR; URINE BILIRUBIN NEGATIVE (NEGATIVE); URINE COLOR YELLOW; URINE GLUCOSE (UA) NEGATIVE (NEGATIVE); URINE KETONE NEGATIVE (NEGATIVE); URINE LEUK ESTERASE NEGATIVE (NEGATIVE); URINE NITRITE NEGATIVE (NEGATIVE); URINE PROTEIN NEGATIVE (NEGATIVE); URINE UROBILINOGEN 0.2 mg/dL (0.2-1.0)
[2018-09-11] MEDS ORDERED: VANCOMYCIN 1 GRAM (PRE-DOCKED) 1,000 MG/250 ML BAG IVPB ONE (21:18)
[2018-09-11 23:44] LABS: VENOUS PC02 45.9 mmHg (41-51); VENOUS PH 7.37 (7.31-7.41); VENOUS PO2 35.6 mmHg (30-40)
--- NOTE | 2018-09-12 00:16 | HP ---
CHIEF COMPLAINT: Chest pain PCP: Dr. Toro HISTORY OF PRESENT ILLNESS: 73 year old female with PMHx HTN, RA and stage IV lung cancer s/p RT upper lobectomy currently on immunotherapy, arrived to ED with epigastric/substernal pain started 2-3 hours ago pain is steady, non- radiating with complain of sob. Pain is worse when laying down, not worse with activity. Patient denies any palpitations, nausea, vomiting, or diarrhea, headache, dizziness, lightheadedness, or changes in strength or sensation. Patient follows Oncologist (Dr. Paige) last treatment was 2 weeks ago, was scheduled to follow up tomorrow. During the course of ED patient noted with fever (102.9) abd tachycardic (138) RR (26) sepsis protocol initiated given Vanco and Zosyn x1, Now temp is 98.5, HR 116, RR 22. ER course was notable for: (1) Sepsis protocol initiated -- wbc: 12.3 vanco and zosyn x1, IVF 1L (UA and CXR negative) (2) Trops 0.13 --> 0.14 morphine given (3) paged Dr. Paige Recent Travel: no PAST MEDICAL HISTORY: HTN, RA and stage IV lung cancer, depression PAST SURGICAL HISTORY: RT upper lobectomy 2014 Social History: Smoking:quite in 12/2014 Alcohol: No Drugs: No Allergies: aspirin Adverse Reaction (Mild, Verified 08/28/18 16:37) upset stomach, gastritis HOME MEDICATIONS: Home Medications Medication Instructions Recorded Alprazolam [Xanax] 0.25 mg PO DAILY 06/15/18 Blood-Glucose Meter [Freestyle 1 each MC ACHS 06/15/18 Lite Meter] Losartan Potassium [Cozaar -] 50 mg PO DAILY 06/15/18 Pantoprazole Sodium [Protonix -] 40 mg PO DAILY 06/15/18 Zolpidem Tartrate [Ambien] 10 mg PO DAILY 06/15/18 Acetaminophen [Tylenol 500 mg PO Q6H PRN tablet 06/19/18 .Extra-Strength -] Atovaquone [Mepron Oral Solution -] 1,500 mg PO DAILY@0800 #1 bottle 06/19/18 Albuterol Sulfate Inhaler - 2 puff IH Q6H PRN inhaler 06/25/18 [Ventolin HFA Inhaler -] Amlodipine Besylate [Norvasc -] 5 mg PO DAILY tablet 06/25/18 Leflunomide [Arava -] 20 mg PO DAILY #60 tablet 06/25/18 Sulfasalazine [Azulfidine En-Tabs 1,000 mg PO BID #120 tablet. 06/25/18 -] predniSONE [Deltasone -] 15 mg PO BID #60 tablet 06/25/18 traMADol HCL [Ultram -] 50 mg PO Q8H PRN tablet MDD 3 06/25/18 Furosemide [Lasix -] 20 mg PO DAILY #30 tablet 08/29/18 REVIEW OF SYSTEMS CONSTITUTIONAL: + fever HEENT: Absent: rhinorrhea, nasal congestion, throat pain, throat swelling, difficulty swallowing CARDIOVASCULAR: + chest pain, Elizabeth: syncope, palpitations, irregular heart rate, lightheadedness, peripheral edema RESPIRATORY: + SOB Absent: cough, dyspnea with exertion, orthopnea, wheezing, stridor, hemoptysis GASTROINTESTINAL: Absent: abdominal pain, abdominal distension, nausea, vomiting , diarrhea, constipation, melena, hematochezia GENITOURINARY: Absent: dysuria, frequency, urgency, hesitancy, hematuria, flank pain, genital pain MUSCULOSKELETAL: Absent: myalgia, arthralgia, joint swelling, back pain, neck pain SKIN: Absent: rash, itching, pallor NEUROLOGIC: Absent: headache, focal weakness or paresthesias, dizziness, unsteady gait, seizure, mental status changes, bladder or bowel incontinence PHYSICAL EXAMINATION Vital Signs - 24 hr 09/11/18 09/11/18 09/11/18 16:59 17:02 19:29 Temperature 98.0 F 102.9 F H Pulse Rate 90 Pulse Rate [ 138 H Right Radial] Respiratory 18 26 H Rate Blood Pressure 127/92 Blood Pressure 146/90 143/83 [Left Arm] O2 Sat by Pulse 90 L 93 L Oximetry (%) 09/11/18 09/11/18 21:02 22:15 Temperature 98.5 F Pulse Rate 116 H Pulse Rate [ 118 H Right Radial] Respiratory 22 H Rate Blood Pressure 106/64 Blood Pressure 102/60 [Left Arm] O2 Sat by Pulse 94 L 93 L Oximetry (%) GENERAL: Awake, alert, and oriented, + pain to epigastric/ substernal HEENT: NC/AT, EOMI, PERRLA, No JVD LUNGS: Breath sounds equal, clear to auscultation bilaterally. No wheezes, and no crackles. No accessory muscle use. HEART: S1/S2, + tachy ABDOMEN: Soft,ND, + Epidastric pain MUSCULOSKELETAL: Normal range of motion at all joints. No bony deformities or tenderness. No CVA tenderness. NEUROLOGICAL: Cranial nerves II-XII intact. Normal speech. Normal gait. PSYCHIATRIC: Cooperative. Good eye contact. Appropriate mood and affect. SKIN: Warm, dry, normal turgor, no rashes or lesions noted, normal capillary refill. Laboratory Results - last 24 hr 09/11/18 09/11/18 09/11/18 18:00 18:00 18:00 WBC 12.3 H RBC 3.96 Hgb 11.3 Hct 35.4 MCV 89.4 MCH 28.5 MCHC 31.9 L RDW 17.5 H Plt Count 273 MPV 7.6 Absolute Neuts (auto) 9.3 H Neutrophils % 75.5 Lymphocytes % 17.8 Monocytes % 6.4 Eosinophils % 0.0 D Basophils % 0.3 Nucleated RBC % 0 PT with INR INR Sodium 135 L Potassium 3.5 Chloride 96 L Carbon Dioxide 27 Anion Gap 12 BUN 31.6 H Creatinine 2.1 H Est GFR (CKD-EPI)AfAm 26.58 Est GFR (CKD-EPI)NonAf 22.93 Random Glucose 121 H Lactic Acid Calcium 9.7 Magnesium 1.6 L Total Bilirubin 0.5 AST 29 ALT 13 Alkaline Phosphatase 94 Creatine Kinase 41 Troponin I 0.13 H B-Natriuretic Peptide 766.6 H Total Protein 7.0 Albumin 3.2 L Lipase TSH 0.70 Urine Color Urine Appearance Urine pH Ur Specific [place] Urine Protein Urine Glucose (UA) Urine Ketones Urine Blood Urine Nitrite Urine Bilirubin Urine Urobilinogen Ur Leukocyte Esterase 09/11/18 09/11/18 09/11/18 18:00 19:55 20:01 WBC RBC Hgb Hct MCV MCH MCHC RDW Plt Count MPV Absolute Neuts (auto) Neutrophils % Lymphocytes % Monocytes % Eosinophils % Basophils % Nucleated RBC % PT with INR 12.60 INR 1.07 Sodium Potassium Chloride Carbon Dioxide Anion Gap BUN Creatinine Est GFR (CKD-EPI)AfAm Est GFR (CKD-EPI)NonAf Random Glucose Lactic Acid 2.4 H* Calcium Magnesium Total Bilirubin AST ALT Alkaline Phosphatase Creatine Kinase Troponin I 0.14 H B-Natriuretic Peptide Total Protein Albumin Lipase 71 L TSH Urine Color Urine Appearance Urine pH Ur Specific [place] Urine Protein Urine Glucose (UA) Urine Ketones Urine Blood Urine Nitrite Urine Bilirubin Urine Urobilinogen Ur Leukocyte Esterase 09/11/18 20:05 WBC RBC Hgb Hct MCV MCH MCHC RDW Plt Count MPV Absolute Neuts (auto) Neutrophils % Lymphocytes % Monocytes % Eosinophils % Basophils % Nucleated RBC % PT with INR INR Sodium Potassium Chloride Carbon Dioxide Anion Gap BUN Creatinine Est GFR (CKD-EPI)AfAm Est GFR (CKD-EPI)NonAf Random Glucose Lactic Acid Calcium Magnesium Total Bilirubin AST ALT Alkaline Phosphatase Creatine Kinase Troponin I B-Natriuretic Peptide Total Protein Albumin Lipase TSH Urine Color Yellow Urine Appearance Clear Urine pH 5.0 D Ur Specific [place] 1.015 Urine Protein Negative Urine Glucose (UA) Negative Urine Ketones Negative Urine Blood Negative Urine Nitrite Negative Urine Bilirubin Negative Urine Urobilinogen 0.2 Ur Leukocyte Esterase Negative ASSESSMENT/PLAN: 73 year old female with PMHx HTN, RA and stage IV lung cancer s/p RT upper lobectomy currently on immunotherapy, arrived to ED with epigastric/substernal pain started 2-3 hours ago pain is steady, non-radiating with complain of sob. Pain is worse when laying down, not worse with activity. During the course of ED patient noted with fever (102.9) and tachycardia (138) RR (26) sepsis protocol initiated given Vanco and Zosyn x1, Now temp is 98.5, HR 116, RR 22. #Chest Pain R/o ACS - EKG; sinus tachycardia at 119 with some pvcs. - trops: 0.13 --> 0.14 - s/p morphine IV in ED - follow up cardiology - trops series #Sepsis unknown origin - noted with fever (102.9) and tachycardia (138) RR (26) in ED - sepsis protocol initialed wbc: 12.3 lactic; 2.4, pending repeat cxr multiple nodules ct scan abd/pel: cholelithiasis but no acute cholecystitis, no acute abd pathology appreciated. Mild pericardial thickening UA: negative - given Vanco and Zosyn x1 - given IV Offimev - will continue with IV vanco and zosyn - continue with IV offimev - f/u cbc with diff, bmp, lactic trend in AM - pending ABGs #THIAGO bun/cr: 31.6/ 2.1 - given 1 L in ED - continue with IV fluids - trend lytes # stage IV lung cancer s/p RT upper lobectomy -currently on immunotherapy - Continue with Mepron - Continue with Arava, Azulfidine - Continue with prednisone - f/u Dr. Paige #HTN - Continue with Norvasc - Continue with Cozaar - hold lasix for now # Depression - Continue with Xanax - Continue with Ambien # GERD - Continue with PPI Problem List - Problem (1) Chest pain Code(s): R07.9 - CHEST PAIN, UNSPECIFIED (2) Sepsis Code(s): A41.9 - SEPSIS, UNSPECIFIED ORGANISM (3) THIAGO (acute kidney injury) Code(s): N17.9 - ACUTE KIDNEY FAILURE, UNSPECIFIED (4) SCC (squamous cell carcinoma of lung) Code(s): C34.90 - MALIGNANT NEOPLASM OF UNSP PART OF UNSP BRONCHUS OR LUNG (5) GERD (gastroesophageal reflux disease) Code(s): K21.9 - GASTRO-ESOPHAGEAL REFLUX DISEASE WITHOUT ESOPHAGITIS (6) Stage 4 lung cancer Code(s): C34.90 - MALIGNANT NEOPLASM OF UNSP PART OF UNSP BRONCHUS OR LUNG (7) Anxiety Code(s): F41.9 - ANXIETY DISORDER, UNSPECIFIED (8) Depression Code(s): F32.9 - MAJOR DEPRESSIVE DISORDER, SINGLE EPISODE, UNSPECIFIED (9) HTN (hypertension) Code(s): I10 - ESSENTIAL (PRIMARY) HYPERTENSION Visit type - Emergency Visit Emergency Visit: Yes Care time: The patient presented to the Emergency Department on the above date and was hospitalized for further evaluation of their emergent condition. - New Patient This patient is new to me today: Yes Date on this admission: 09/12/18 - Critical Care Critical Care patient: No
[2018-09-12] MEDS ORDERED: ALBUTEROL SO4 8 GM HFA INHALER IH PRN (00:28)
[2018-09-12] MEDS ORDERED: ACETAMINOPHEN 325 MG TABLET (FP) PO ONE (00:28)
[2018-09-12] MEDS ORDERED: traMADol HCL 50 MG TABLET PO PRN (00:28)
[2018-09-12] MEDS ORDERED: ACETAMINOPHEN 325 MG TABLET (FP) ONE (00:48)
[2018-09-12] MEDS: SODIUM CHLORIDE 0.45% 1,000 ML IV SCH (01:01)
[2018-09-12] MEDS ORDERED: PIPERACILLIN/TAZOBACTAM 3.375 GM VIAL IVPB ONE ×3 (02:47→17:31)
[2018-09-12] MEDS ORDERED: DEXTROSE 5%-WATER - 50 ML IVPB ONE ×3 (02:47→17:31)
[2018-09-12] MEDS: PIPERACILLIN/TAZOB 3.375 GM 3.375 GM in DEXTROSE 5%-WATER - 50 ML IVPB SCH ×3 (03:24→17:34)
[2018-09-12] MEDS ORDERED: ALBUTEROL SO4 2.5/IPRATROPIUM 0.5 INH SOL 3 ML VIAL.NEB. NEB PRN (04:38)
[2018-09-12] MEDS ORDERED: PT OWN MED DRAWER 7, Y5N ONE ×2 (09:00→22:03)
[2018-09-12] MEDS: PANTOPRAZOLE 40 MG TABLET (FP) PO SCH (09:12)
[2018-09-12] MEDS: amLODIPine BESYLATE 5 MG TABLET (FP) PO SCH (09:12)
[2018-09-12] MEDS: LOSARTAN POTASSIUM 50 MG TABLET (FP) PO SCH (09:13)
[2018-09-12] MEDS: ALPRAZolam 0.25 MG TABLET PO SCH (09:13)
[2018-09-12] MEDS: HEPARIN NA (PORCINE) 5,000 UNITS/ML 1ML VIAL SQ SCH ×2 (09:14→22:48)
[2018-09-12] MEDS ORDERED: PATIENT'S OWN MEDICATION (NON-FORMULARY) (Zolpidem Tartrate [Ambien] 10 MG) PO SCH (10:00)
[2018-09-12] MEDS ORDERED: predniSONE 5 MG TABLET (UD) PO SCH (10:00)
[2018-09-12] MEDS: ATOVAQUONE 750 MG/5 ML (UNIT-DOSE PACKAGING) PO SCH (10:16)
[2018-09-12] MEDS: LEFLUNOMIDE 10 MG TABLET PO SCH (11:16)
[2018-09-12] MEDS ORDERED: ACETAMINOPHEN 325 MG TABLET (FP) PO PRN (11:27)
--- NOTE | 2018-09-12 11:32 | PN ---
Progress Note, Physician Chief Complaint: Chest pain History of Present Illness: NAD Breathing and chest pain improved Afebrile now - Current Medication List Current Medications: Active Medications Acetaminophen (Tylenol -) 650 mg PO Q4H PRN PRN Reason: FEVER Albuterol/Ipratropium (Duoneb -) 1 amp NEB Q6H PRN PRN Reason: SHORTNESS OF BREATH Last Admin: 09/12/18 05:03 Dose: 1 amp Alprazolam (Xanax -) 0.25 mg PO DAILY [facility] Last Admin: 09/12/18 09:13 Dose: Not Given Amlodipine Besylate (Norvasc -) 5 mg PO DAILY [facility] Last Admin: 09/12/18 09:12 Dose: 5 mg Atovaquone (Mepron -) 1,500 mg PO DAILY@0800 [facility] Last Admin: 09/12/18 10:16 Dose: 1,500 mg Heparin Sodium (Porcine) (Heparin -) 5,000 unit SQ BID [facility] Sodium Chloride (1/2 Normal Saline) 1,000 mls @ 75 mls/hr IV ASDIR [facility] Last Admin: 09/12/18 01:01 Dose: 75 mls/hr Piperacillin Sod/Tazobactam (Sod 3.375 gm/ Dextrose) 50 mls @ 100 mls/hr IVPB Q8H-IV [facility]; Protocol Stop: 09/13/18 23:59 Piperacillin Sod/Tazobactam (Sod 3.375 gm/ Dextrose) 50 mls @ 100 mls/hr IVPB Q8H-IV [facility] Stop: 09/12/18 18:29 Last Admin: 09/12/18 09:12 Dose: 100 mls/hr Leflunomide (Arava -) 20 mg PO DAILY [facility] Last Admin: 09/12/18 11:16 Dose: 20 mg Losartan Potassium (Cozaar -) 50 mg PO DAILY [facility] Last Admin: 09/12/18 09:13 Dose: 50 mg Pantoprazole Sodium (Protonix -) 40 mg PO DAILY [facility] Last Admin: 09/12/18 09:12 Dose: 40 mg Prednisone (Deltasone -) 15 mg PO BID [facility] Last Admin: 09/12/18 09:13 Dose: 15 mg Sulfasalazine (Azulfidine En-Tabs -) 1,000 mg PO BID [facility] Last Admin: 09/12/18 09:11 Dose: 1,000 mg Tramadol HCl (Ultram -) 50 mg PO Q8H PRN PRN Reason: PAIN LEVEL 1-5 Zolpidem Tartrate (Ambien -) 5 mg PO HS [facility] - Objective Vital Signs: Vital Signs Temperature 99 F 09/12/18 10:00 Pulse Rate 116 H 09/12/18 10:00 Respiratory Rate 18 09/12/18 10:00 Blood Pressure 120/65 09/12/18 10:00 O2 Sat by Pulse Oximetry (%) 93 L 09/12/18 09:00 Constitutional: Yes: Well Nourished, No Distress, Calm Cardiovascular: Yes: Regular Rate and Rhythm Respiratory: Yes: Regular Gastrointestinal: Yes: WNL Genitourinary: Yes: WNL Musculoskeletal: Yes: Muscle Weakness Edema: No Peripheral Pulses WNL: Yes Neurological: Yes: Alert, Oriented Psychiatric: Yes: Alert, Oriented Labs: CBC, BMP 09/11/18 18:00 09/11/18 18:00 INR, PTT INR 1.07 (0.83-1.09) 09/11/18 18:00 Problem List - Problems (1) Chest pain Assessment/Plan: -resolved -Cardiology consult -Tele monitor -Elevated trops x 3, mild up trend -EKG no changes Code(s): R07.9 - CHEST PAIN, UNSPECIFIED (2) Pneumonia Assessment/Plan: -CXR reviewed -Pulmonary consult -Nasal O2 -ID consult -Started on empiric Zosyn -bronchodilators Code(s): J18.9 - PNEUMONIA, UNSPECIFIED ORGANISM (3) Sepsis Assessment/Plan: -afebrile now -Lactic acid normalized -ID consult -Cultures pending -IV abx Code(s): A41.9 - SEPSIS, UNSPECIFIED ORGANISM (4) Lactic acid acidosis Code(s): E87.2 - ACIDOSIS (5) Stage 4 lung cancer Assessment/Plan: -heme/oncology consult Code(s): C34.90 - MALIGNANT NEOPLASM OF UNSP PART OF UNSP BRONCHUS OR LUNG (6) THIAGO (acute kidney injury) Assessment/Plan: -Monitor trend -nephrology consult Code(s): N17.9 - ACUTE KIDNEY FAILURE, UNSPECIFIED Assessment/Plan see problem list DVT prophylaxis Physical therapy
--- NOTE | 2018-09-12 11:49 | CONSULT ---
Consultation: CONSULT REQUEST: Heme/Onc HISTORY OF PRESENT ILLNESS: Patient is a 73 yo F with a PMHx of RA, COPD (4L O2 at home as needed), HTN, depression, Lung Ca s/p RT lobectomy, currently on immunotherapy, came w/ 2-3 hours of epigastric pain with SOB. She was found septic with a fever of 102.9, and was given vanc and zosyn in the ED. She was recently admitted for similar symptoms. CT abd in the ER unremarkable for acute findings. Patient currently denies new symptoms. Says she feels better compared to yesterday. Says her SOB and chest pain/ epigastric pain has improved. Denies chest pain, abdominal pain, nausea, vomiting, dizziness, hematuria, hematochezia. Heme/onc consulted because patients history of Lung Ca. She sees Dr. Paige. Background: Allergies: Aspirin (says it upsets her stomach) Social hx: said she recently started smoking 1-2 cigs a day. didnt give me time. Home meds Alprazolam [Xanax] 0.25 mg PO DAILY 06/15/18 Losartan Potassium [Cozaar -] 50 mg PO DAILY 06/15/18 Pantoprazole Sodium [Protonix -] 40 mg PO DAILY 06/15/18 Atovaquone [Mepron Oral Solution -] 1,500 mg PO DAILY@0800 #1 bottle 06/19/18 Amlodipine Besylate [Norvasc -] 5 mg PO DAILY tablet 06/25/18 Leflunomide [Arava -] 20 mg PO DAILY #60 tablet 06/25/18 Sulfasalazine [Azulfidine En-Tabs -] 1,000 mg PO BID #120 tablet. 06/25/18 Furosemide [Lasix -] 20 mg PO DAILY #30 tablet 08/29/18 REVIEW OF SYSTEMS: CONSTITUTIONAL: Absent: fever, chills, diaphoresis, generalized weakness, malaise, loss of appetite, weight change HEENT: Absent: rhinorrhea, nasal congestion, throat pain, throat swelling, difficulty swallowing, mouth swelling, ear pain, eye pain, visual changes CARDIOVASCULAR: Absent: chest pain, syncope, palpitations, irregular heart rate, lightheadedness , peripheral edema RESPIRATORY: sob Absent: cough, dyspnea with exertion, orthopnea, wheezing, stridor, hemoptysis GASTROINTESTINAL: Absent: abdominal pain, abdominal distension, nausea, vomiting, diarrhea, constipation, melena, hematochezia GENITOURINARY: Absent: dysuria, frequency, urgency, hesitancy, hematuria, flank pain, genital pain MUSCULOSKELETAL: Absent: myalgia, arthralgia, joint swelling, back pain, neck pain SKIN: Absent: rash, itching, pallor HEMATOLOGIC/IMMUNOLOGIC: Absent: easy bleeding, easy bruising, lymphadenopathy, frequent infections PHYSICAL EXAMINATION Vital Signs - 24 hr 09/12/18 10:00 Temperature 99 F Pulse Rate 116 H Pulse Rate [ Right Radial] Respiratory 18 Rate Blood Pressure 120/65 Blood Pressure [Left Arm] O2 Sat by Pulse Oximetry (%) GENERAL: a/o x 3, in NAD EYES: sclera anicteric, conjunctiva clear. EARS, NOSE, THROAT: oropharynx clear without exudates. NECK: supple without lymphadenopathy LUNGS: Rales, expiratory wheezing HEART: RRR, no murmurs appreciated ABDOMEN:obese, non-tender, non-distended LOWER EXTREMITIES: 2+ pulses, + edema Laboratory Results - last 24 hr 09/11/18 09/11/18 09/11/18 20:05 23:05 23:05 WBC RBC Hgb Hct MCV MCH MCHC RDW Plt Count MPV Absolute Neuts (auto) Neutrophils % Lymphocytes % Monocytes % Eosinophils % Basophils % Nucleated RBC % PT with INR INR VBG pH 7.37 POC VBG pCO2 45.9 POC VBG pO2 35.6 VBG HCO3 25.7 VBG O2 Sat (Marie) 56.7 L VBG Base Excess 0.7 Sodium Potassium Chloride Carbon Dioxide Anion Gap BUN Creatinine Est GFR (CKD-EPI)AfAm Est GFR (CKD-EPI)NonAf Random Glucose Lactic Acid 1.5 Calcium Magnesium Total Bilirubin AST ALT Alkaline Phosphatase Creatine Kinase Troponin I B-Natriuretic Peptide Total Protein Albumin Lipase TSH Urine Color Yellow Urine Appearance Clear Urine pH 5.0 D Ur Specific [place] 1.015 Urine Protein Negative Urine Glucose (UA) Negative Urine Ketones Negative Urine Blood Negative Urine Nitrite Negative Urine Bilirubin Negative Urine Urobilinogen 0.2 Ur Leukocyte Esterase Negative ASSESSMENT/PLAN: #Lung Ca Stage 4 s/p R lobectomy -on immunotherapy -Antibiotics per ID -Cardiac/Pulm follow up. Dispo: We will continue to follow the patient. Thank you for this consultative opportunity. Visit type - Emergency Visit Emergency Visit: Yes ED Registration Date: 09/11/18 Care time: The patient presented to the Emergency Department on the above date and was hospitalized for further evaluation of their emergent condition. - New Patient This patient is new to me today: Yes Date on this admission: 09/13/18 - Critical Care Critical Care patient: No ATTENDING PHYSICIAN STATEMENT I saw and evaluated the patient. I reviewed the resident's note and discussed the case with the resident. I agree with the resident's findings and plan as documented. SUBJECTIVE: OBJECTIVE: ASSESSMENT AND PLAN:
--- NOTE | 2018-09-12 12:12 | PN ---
Progress Note (short form) - Note Progress Note: - Note Progress Note: PULMONARY CONSULTATION DICTATED 09/12/18 IMP ACUTE ON CHRONIC HYPOXEMIC RESPIRATORY FAILURE FEVER LIKELY PNREUMONIA,?TUMOR FEVER METASTATIC BRONCHOGENIC CA(SQUAMOUS CELL) LLL CONSOLIDATION ? INFECTIOUS,TUMOR CHEST PAIN ? CARDIAC COPD O2 DEPENDENT ELEVATED TROPONIN RA THIAGO ELEVATED LACTATE PLAN ABX PER ID O2 INHALED BRONCHODILATORS STEROIDS CULTURES IVF MONITOR LYTES,RENAL FUNCTION,TREND TROPONIN ABG F/U CHEST X-RAYS DR KERR Problem List - Problems (1) Sepsis Code(s): A41.9 - SEPSIS, UNSPECIFIED ORGANISM (2) THIAGO (acute kidney injury) Code(s): N17.9 - ACUTE KIDNEY FAILURE, UNSPECIFIED (3) COPD (chronic obstructive pulmonary disease) Code(s): J44.9 - CHRONIC OBSTRUCTIVE PULMONARY DISEASE, UNSPECIFIED (4) Diabetes Code(s): E11.9 - TYPE 2 DIABETES MELLITUS WITHOUT COMPLICATIONS (5) Fever Code(s): R50.9 - FEVER, UNSPECIFIED (6) Rheumatoid arthritis Code(s): M06.9 - RHEUMATOID ARTHRITIS, UNSPECIFIED (7) SCC (squamous cell carcinoma of lung) Code(s): C34.90 - MALIGNANT NEOPLASM OF UNSP PART OF UNSP BRONCHUS OR LUNG (8) SOB (shortness of breath) Code(s): R06.02 - SHORTNESS OF BREATH (9) Stage 4 lung cancer Code(s): C34.90 - MALIGNANT NEOPLASM OF UNSP PART OF UNSP BRONCHUS OR LUNG (10) Lung cancer Code(s): C34.90 - MALIGNANT NEOPLASM OF UNSP PART OF UNSP BRONCHUS OR LUNG Qualifiers: Laterality: unspecified laterality Lung location: unspecified part of lung Qualified Code(s): C34.90 - Malignant neoplasm of unspecified part of unspecified bronchus or lung (11) Acute on chronic respiratory failure with hypoxemia Code(s): J96.21 - ACUTE AND CHRONIC RESPIRATORY FAILURE WITH HYPOXIA (12) Pneumonia Code(s): J18.9 - PNEUMONIA, UNSPECIFIED ORGANISM
[2018-09-12 12:54] LABS: BASO % 0.5 % (0-2.0); EOS % 0.2 % (0-4.5); HEMATOCRIT 33.9 % (32.4-45.2); HEMOGLOBIN 10.9 GM/dL (10.7-15.3); LYMPH % 11.6 % (8-40); MCH 28.7 pg (25.7-33.7); MCHC 32.2 g/dl (32.0-36.0); MEAN CELL VOLUME 89.2 fl (80-96); MEAN PLT VOLUME 7.7 fl (7.5-11.1); MONO % 4.1 % (3.8-10.2); NEUT % 83.6 % (42.8-82.8); PLATELET COUNT 226 K/MM3 (134-434); RDW 17.7 % (11.6-15.6); WHITE BLOOD COUNT 13.6 K/mm3 (4.0-10.0)
[2018-09-12] MEDS ORDERED: methylPREDNISolone NA SUCC 40 MG/1 ML VIAL IVPUSH SCH (13:15)
[2018-09-12 13:25] LABS: ALBUMIN 2.6 g/dl (3.4-5.0); BILIRUBIN,TOTAL 1.1 mg/dL (0.2-1); BLOOD UREA NITROGEN 28.5 mg/dL (7-18); CALCIUM 8.7 mg/dL (8.5-10.1); CREATININE 1.8 mg/dL (0.55-1.3); POTASSIUM 3.7 mmol/L (3.5-5.1); TOT PROT 5.9 g/dl (6.4-8.2)
[2018-09-12 13:59] LABS: ARTERIAL BLD GAS O2 SATURATION 85.5 % (95-98); ARTERIAL BLOOD GAS BASE EXCESS -1.9 meq/l (-2-2); ARTERIAL BLOOD GAS PCO2 36.3 mmHg (35-45); ARTERIAL BLOOD GAS PO2 59.9 mmHg (80-105)
[2018-09-12 14:00] LABS: ALLENS TEST POSITIVE
--- NOTE | 2018-09-12 14:29 | EKG ---
Test Reason : Blood Pressure : / mmHG Vent. Rate : 115 BPM Atrial Rate : 115 BPM P-R Int : 152 ms QRS Dur : 080 ms QT Int : 322 ms P-R-T Axes : 058 040 068 degrees QTc Int : 445 ms SINUS TACHYCARDIA OTHERWISE NORMAL ECG WHEN COMPARED WITH ECG OF 15-JUN-2018 13:36, NO SIGNIFICANT CHANGE WAS FOUND Confirmed by CARLOS FERRIS MD ([id number]) on 09/12/2018 2:29:17 PM Referred By: Confirmed By:CARLOS FERRIS MD
[2018-09-12] MEDS: methylPREDNISolone NA SUCC 40 MG/1 ML VIAL IVPUSH SCH ×2 (14:45→22:48)
--- NOTE | 2018-09-12 15:14 | EKG ---
Test Reason : Blood Pressure : / mmHG Vent. Rate : 118 BPM Atrial Rate : 118 BPM P-R Int : 140 ms QRS Dur : 080 ms QT Int : 324 ms P-R-T Axes : 039 037 074 degrees QTc Int : 454 ms SINUS TACHYCARDIA WITH PREMATURE ATRIAL COMPLEXES EARLY REPOLARIZATION OTHERWISE NORMAL ECG WHEN COMPARED WITH ECG OF 11-SEP-2018 17:30, PREMATURE VENTRICULAR COMPLEXES ARE NO LONGER PRESENT PREMATURE ATRIAL COMPLEXES ARE NOW PRESENT NONSPECIFIC T WAVE ABNORMALITY NO LONGER EVIDENT IN LATERAL LEADS Confirmed by CARLOS FERRIS MD ([id number]) on 09/12/2018 3:14:10 PM Referred By: PATTI BROWN Confirmed By:CARLOS FERRIS MD
--- NOTE | 2018-09-12 15:26 | PN ---
Progress Note (short form) - Note Progress Note: ID consult dictated imp/reccd 73 yo female with stage 4 lung cancer on immunotherapy presents with midsternal chest discomfort 09/11 found to have fever of 102.9 has worsening cough no hemoptysis chest ct 08/28 no PE, no infiltrate abd pelvis ct with new LLL infiltrate fevers now resolved feeling better on empiric zosyn urinary antigens cannot r/o pneumonia- continue zosyn with plans to switch to augmentin next 24- 48 hours lung cancer on chemotherapy THIAGO - new history of RA Problem List - Problems (1) Fever Code(s): R50.9 - FEVER, UNSPECIFIED (2) Pneumonia Code(s): J18.9 - PNEUMONIA, UNSPECIFIED ORGANISM (3) Lung cancer Code(s): C34.90 - MALIGNANT NEOPLASM OF UNSP PART OF UNSP BRONCHUS OR LUNG Qualifiers: Laterality: unspecified laterality Lung location: unspecified part of lung Qualified Code(s): C34.90 - Malignant neoplasm of unspecified part of unspecified bronchus or lung (4) THIAGO (acute kidney injury) Code(s): N17.9 - ACUTE KIDNEY FAILURE, UNSPECIFIED
--- NOTE | 2018-09-12 15:30 | CONSULT ---
Consult - text type - Consultation Consultation Note: Renal consult for THIAGO This is a 73 year old woman with history of hypertension, RA, Lung Ca s/p chemo and lobectomy who presented with epigastric/substernal CP adn found to have THIAGO with Cr of 2.4. Pt seen and examined at the bedside. Denies any history of CKD. Denies any history of kidney stones. Denies any current flank pain, dysuria, frequency or urgency. Not using NSAIDs. Was on diuretics at home. Reports having a poor appetite. Denies any N/V/D. Was also on ARB at home. PMhx: as above Allergies: NKDA Family Hx: NC Social Hx: No T/A/D ROS: as per HPI, all other pertinent ros negative Home Medications Medication Instructions Recorded Alprazolam [Xanax] 0.25 mg PO DAILY 06/15/18 Blood-Glucose Meter [Freestyle 1 each [facility] ACHS 06/15/18 Lite Meter] Losartan Potassium [Cozaar -] 50 mg PO DAILY 06/15/18 Pantoprazole Sodium [Protonix -] 40 mg PO DAILY 06/15/18 Zolpidem Tartrate [Ambien] 10 mg PO DAILY 06/15/18 Acetaminophen [Tylenol 500 mg PO Q6H PRN tablet 06/19/18 .Extra-Strength -] Atovaquone [Mepron Oral Solution -] 1,500 mg PO DAILY@0800 #1 bottle 06/19/18 Albuterol Sulfate Inhaler - 2 puff IH Q6H PRN inhaler 06/25/18 [Ventolin HFA Inhaler -] Amlodipine Besylate [Norvasc -] 5 mg PO DAILY tablet 06/25/18 Leflunomide [Arava -] 20 mg PO DAILY #60 tablet 06/25/18 Sulfasalazine [Azulfidine En-Tabs 1,000 mg PO BID #120 tablet. 06/25/18 -] predniSONE [Deltasone -] 15 mg PO BID #60 tablet 06/25/18 traMADol HCL [Ultram -] 50 mg PO Q8H PRN tablet MDD 3 06/25/18 Furosemide [Lasix -] 20 mg PO DAILY #30 tablet 08/29/18 Vital Signs Temperature 98.4 F 09/12/18 14:05 Pulse Rate 117 H 09/12/18 14:05 Respiratory Rate 24 H 09/12/18 14:05 Blood Pressure 119/71 09/12/18 14:05 O2 Sat by Pulse Oximetry (%) 93 L 09/12/18 09:00 NAD awake and alert neck supple, no JVD RRR, No N/R + rales left lung base soft NT/ND no LE edema, clubbing or cyanosis CBC, BMP 09/12/18 12:25 09/12/18 12:25 Current Medications Acetaminophen (Tylenol -) 650 mg PO Q4H PRN PRN Reason: FEVER Albuterol/Ipratropium (Duoneb -) 1 amp NEB RQID [facility]ARD Albuterol/Ipratropium (Duoneb -) 1 amp NEB Q4H PRN PRN Reason: SHORTNESS OF BREATH Alprazolam (Xanax -) 0.25 mg PO DAILY [facility] Last Admin: 09/12/18 09:13 Dose: Not Given Amlodipine Besylate (Norvasc -) 5 mg PO DAILY [facility] Last Admin: 09/12/18 09:12 Dose: 5 mg Atovaquone (Mepron -) 1,500 mg PO DAILY@0800 [facility] Last Admin: 09/12/18 10:16 Dose: 1,500 mg Heparin Sodium (Porcine) (Heparin -) 5,000 unit SQ BID [facility] Sodium Chloride (1/2 Normal Saline) 1,000 mls @ 75 mls/hr IV ASDIR [facility] Last Admin: 09/12/18 01:01 Dose: 75 mls/hr Piperacillin Sod/Tazobactam (Sod 3.375 gm/ Dextrose) 50 mls @ 100 mls/hr IVPB Q8H-IV [facility]; Protocol Stop: 09/13/18 23:59 Piperacillin Sod/Tazobactam (Sod 3.375 gm/ Dextrose) 50 mls @ 100 mls/hr IVPB Q8H-IV [facility] Stop: 09/12/18 18:29 Last Admin: 09/12/18 09:12 Dose: 100 mls/hr Leflunomide (Arava -) 20 mg PO DAILY [facility] Last Admin: 09/12/18 11:16 Dose: 20 mg Losartan Potassium (Cozaar -) 50 mg PO DAILY [facility] Last Admin: 09/12/18 09:13 Dose: 50 mg Methylprednisolone Sodium Succinate (Solu-Medrol -) 40 mg IVPUSH Q6H-IV [facility] Last Admin: 09/12/18 14:45 Dose: 40 mg Pantoprazole Sodium (Protonix -) 40 mg PO DAILY [facility] Last Admin: 09/12/18 09:12 Dose: 40 mg Sulfasalazine (Azulfidine En-Tabs -) 1,000 mg PO BID [facility] Last Admin: 09/12/18 09:11 Dose: 1,000 mg Tramadol HCl (Ultram -) 50 mg PO Q8H PRN PRN Reason: PAIN LEVEL 1-5 Zolpidem Tartrate (Ambien -) 5 mg PO HS [facility] 73 year old woman with history of hypertension, RA, Lung Ca s/ p chemo and lobectomy who presented with epigastric/substernal CP adn found to have THIAGO with Cr of 2.4. #Acute kidney injury likely due to renal hypoprofusin in setting of PNA/ Diuretics/ARB #Suspected PNA #Hypertension #Mild Hyponatremia Renal function improving no evidence of obstruction of urine flow based on CT (did show non-obstructing stone) UA shows a bland sediment no need for Renal US at this time Check urine for FeNa, FeUrea, Eosinopils and UPCR continue isotonic saline for now Empiric antibiotics as per primary team pulmonary eval Thank you Shelton Chery DO
--- NOTE | 2018-09-12 16:32 | CON.CARD ---
Consult Consult Specialty:: Cardiology Reason for Consultation:: Chest Pain - History of Present Illness Chief Complaint: Chest Pain History of Present Illness: This is a 73 year old female with a history of stage IV lung Ca s/p partial RUL lobectomy currently on immunotherapy (previous surgery and radiation), HTN, and RA. She presents to the ED with chest discomfort x three hours. The chest pain occurred while sitting and was substernal and non radiating. It became worse with a deep breath and was assciated with SOB. CXR reveals bialteral lung masses. EKG sinus tachycardia at 115 BMP with normal intervals, normal axis, and NSSTTW changes. Cr. 2.1 Troponin 0.13, 0.14, 0.15 DNR/DNI - Past Medical History Cardio/Vascular: Yes: HTN Pulmonary: Yes: Other (Lung cancer --stage IIB . squamous cell) Rheumatology: Yes: Other (rheumatoid arthritis) - Alcohol/Substance Use Hx Alcohol Use: No - Smoking History Smoking history: Unknown if ever smoked Have you smoked in the past 12 months: No Aproximately how many cigarettes per day: 10 If you are a former smoker, when did you quit?: 12/16/14 - Social History ADL: Independent History of Recent Travel: No Home Medications - Allergies Allergies/Adverse Reactions: Allergies Allergy/AdvReac Type Severity Reaction Status Date / Time aspirin AdvReac Mild Verified 08/28/18 16:37 - Home Medications Home Medications: Ambulatory Orders Alprazolam [Xanax] 0.25 mg PO DAILY 06/15/18 Blood-Glucose Meter [Freestyle Lite Meter] 1 each [facility] 06/15/18 Losartan Potassium [Cozaar -] 50 mg PO DAILY 06/15/18 Pantoprazole Sodium [Protonix -] 40 mg PO DAILY 06/15/18 Zolpidem Tartrate [Ambien] 10 mg PO DAILY 06/15/18 Acetaminophen [Tylenol .Extra-Strength -] 500 mg PO Q6H PRN tablet 06/19/18 Atovaquone [Mepron Oral Solution -] 1,500 mg PO DAILY@0800 #1 bottle 06/19/18 Albuterol Sulfate Inhaler - [Ventolin HFA Inhaler -] 2 puff IH Q6H PRN inhaler 06/25/18 Amlodipine Besylate [Norvasc -] 5 mg PO DAILY tablet 06/25/18 Leflunomide [Arava -] 20 mg PO DAILY #60 tablet 06/25/18 Sulfasalazine [Azulfidine En-Tabs -] 1,000 mg PO BID #120 tablet. 06/25/18 predniSONE [Deltasone -] 15 mg PO BID #60 tablet 06/25/18 traMADol HCL [Ultram -] 50 mg PO Q8H PRN tablet MDD 3 06/25/18 Furosemide [Lasix -] 20 mg PO DAILY #30 tablet 08/29/18 Vital Signs: Vital Signs Temperature 98.4 F 09/12/18 14:05 Pulse Rate 117 H 09/12/18 14:05 Respiratory Rate 24 H 09/12/18 14:05 Blood Pressure 119/71 09/12/18 14:05 O2 Sat by Pulse Oximetry (%) 93 L 09/12/18 09:00 Constitutional: Yes: No Distress Eyes: Yes: WNL HENT: Yes: WNL Neck: Yes: WNL Respiratory: Yes: Rhonchi (Scattered bilateral rhonchi) Cardiovascular: Yes: Regular Rate and Rhythm Heart Sounds: Yes: S1, S2 Edema: No Neurological: Yes: Alert, Oriented - Other Data Labs, Other Data: CBC, BMP 09/12/18 12:25 09/12/18 12:25 INR, PTT INR 1.07 (0.83-1.09) 09/11/18 18:00 Troponin, BNP 09/11/18 09/11/18 09/11/18 18:00 18:00 20:01 Troponin I 0.13 H 0.14 H B-Natriuretic Peptide 766.6 H 09/12/18 12:25 Troponin I 0.15 H B-Natriuretic Peptide Troponin, BNP 09/11/18 09/11/18 09/11/18 18:00 18:00 20:01 Troponin I 0.13 H 0.14 H B-Natriuretic Peptide 766.6 H 09/12/18 12:25 Troponin I 0.15 H B-Natriuretic Peptide Assessment/Plan 73 year old female with a history of stage IV lung Ca s/p partial RUL lobectomy currently on immunotherapy (previous surgery and radiation), HTN, and RA. She presents to the ED with chest discomfort x three hours. The chest pain occurred while sitting and was substernal and non radiating. It became worse with a deep breath and was assciated with SOB. CXR reveals bialteral lung masses. EKG sinus tachycardia at 115 BMP with normal intervals, normal axis, and NSSTTW changes. Cr. 2.1 Troponin 0.13, 0.14, 0.15 DNR/DNI Positive Troponins Most likely secondary to demand ischemia, secondary to pulmonary disease Agree with antibiotics Obtain an echocardiogram Would not advise invasive cardiac testing given the entire clinical picture If she gets more chest pain, add Imdur 30 mg PO daily
--- NOTE | 2018-09-12 17:36 | CONS ---
DATE OF CONSULTATION: 09/12/2018 PULMONARY CONSULTATION REFERRING PHYSICIAN: Lior Toro M.D. HISTORY OF PRESENT ILLNESS: Patient is a 73-year-old black female known to me from previous hospitalization and extensive past medical history of advanced metastatic squamous cell carcinoma to the lung initially diagnosed in 2015 status post resection and treatment with chemotherapy (carboplatin), and the patient had subsequent mediastinal recurrence of multiple pulmonary masses and nodules, maintained on Gemzar, hypertension, rheumatoid arthritis, advanced COPD, O2 dependent longstanding history of tobacco use currently still smoking, admitted to [facility] with complaint of 1-day history of increasing shortness of breath, nonproductive cough, chills, fever. Patient said she was at home and started developing weakness, also some chest pain. She describes episternal, substernal, steady in character, nonradiating also. Patient states the pain was worse lying down. Patient presented to the emergency room with the above complaints. In the ER, she was noted to have the fever of 102.9, tachycardic, and elevated lactate level. Sepsis protocol was initiated, and the patient was placed on antibiotic therapy, Zosyn and vancomycin. She underwent a CT of the abdomen which revealed no acute pathology within abdomen, but revealed a possible new left lower lobe infiltrate and/or mass. PAST MEDICAL HISTORY: Again, includes hypertension, COPD on O2, metastatic squamous cell carcinoma currently on immunotherapy, depression, history of wedge resection of right upper lobe, rheumatoid arthritis, hypertension. REVIEW OF SYSTEMS: Positive dyspnea. Positive orthopnea. Positive chest pain. Positive fever. Positive chills. No hemoptysis. No nausea. No vomiting. No abdominal pain. CURRENT MEDICATIONS: Include prednisone, Cozaar, piperacillin, heparin, Mepron, Ambien, Xanax, DuoNeb, Norvasc, Arava, Ultram, Protonix, and sulfadine. PHYSICAL EXAMINATION: GENERAL: Patient is a well-developed, well-nourished female, awake, alert, dyspneic, in moderate distress. She is currently afebrile. VITAL SIGNS: Blood pressure 120/65, heart rate 116, respiratory rate 22, O2 saturation is 93% on 4 L. HEENT: Normocephalic, atraumatic. NECK: Supple. HEART: Tachycardic. S1, S2. CHEST: Scattered bilateral wheezes. ABDOMEN: Soft, bowel sounds are positive. EXTREMITIES: No cyanosis, edema. LABORATORY: WBC 12.3, hemoglobin 11.3, hematocrit 35.4, with platelet count 273 ,000. Venous blood gas 7.37, pCO2 of 45, pO2 of 35, bicarbonate 25, and saturation of 56. BUN 31, creatinine 2.1, initial lactate level was 2.4, repeat 1.5. Troponin 0.14. BNP is 766. CT of the abdomen, no acute findings. Lower chest revealed interval development of increased opacity within the left lower lobe. IMPRESSION: 1. Acute and chronic hypoxemic respiratory failure. 2. Pneumonia, left lower lobe. 3. Fever, likely pneumonia. 4. Advanced chronic obstructive pulmonary disease, oxygen dependent. 5. Metastatic bronchogenic carcinoma, squamous cell type. 6. Left lower lobe consolidation, possible infectious, possible tumor. 7. Rheumatoid arthritis. 8. Elevated troponins. 9. Acute kidney injury. 10. Elevated lactate. 11. Chest pain. PLAN: Antibiotics as per ID. Supplemental O2. Inhaled bronchodilators, steroids. Obtain cultures. IV fluids. Monitor electrolytes. Renal function. Trend troponins. Check arterial blood gases. Obtain followup chest x-rays. Cardiology evaluation Thank you. Will follow closely with you. GLORIA KERR M.D. JANET/[id number] MTDD
[2018-09-12] MEDS: ALBUTEROL SO4 2.5/IPRATROPIUM 0.5 INH SOL 3 ML VIAL.NEB. NEB SCH ×2 (17:38→20:57)
--- NOTE | 2018-09-12 17:47 | CONS ---
DATE OF CONSULTATION: DATE OF DICTATION: 09/12/2018 INFECTIOUS DISEASE CONSULTATION REQUESTING PHYSICIAN: Lior Toro M.D. CONSULTING PHYSICIAN: Evan Flores M.D. HISTORY OF PRESENT ILLNESS: This is a 73-year-old woman with a history of stage 4 lung cancer. She is status post lobectomy in 2014. She is on immunotherapy with Dr. Paige. Last got treated 2 weeks ago, was scheduled today. She presented to the emergency room on the with complaints of midsternal chest discomfort. She had a worsening cough, no hemoptysis. She denied any fever at home but was found to have a fever of 102.9 in the ER. She had a recent CT of her chest that showed no PE, multiple masses, and no infiltrate. She had a CAT scan of her chest, abdomen, and pelvis in the emergency room because she had what they thought was some midepigastric discomfort and she was found to have a new left lower lobe infiltrate versus malignancy. She was started on Zosyn and her fevers resolved. She is currently resting comfortably. She states she has a nonproductive cough, and she otherwise is feeling at her baseline. She denies any dysuria or diarrhea. And her chest pain has improved. PAST MEDICAL HISTORY: Notable for stage 4 lung cancer and immunotherapy, rheumatoid arthritis on prednisone, hypertension, congestive heart failure. PAST SURGICAL HISTORY: Notable for right upper lobe lobectomy in 2014, status post port placement. Her medications at home include Ultram, prednisone, Ambien, sulfasalazine, Protonix, Cozaar, Arava, Lasix, Mepron, Norvasc, Xanax, and Ventolin. SOCIAL HISTORY: She is a former smoker. No history of substance use. She lives alone. There is no history of any recent travel. She has had no sick contacts. REVIEW OF SYSTEMS: As per HPI. PHYSICAL EXAMINATION: VITAL SIGNS: Temperature 99, pulse 116, blood pressure 120/65, respiratory rate 18. HEENT: Normocephalic. Eyes are anicteric. She has no thrush. LUNGS: She has scattered rhonchi. HEART: Regular rate and rhythm. ABDOMEN: Soft, nontender. EXTREMITIES: Without edema. LABORATORY: White count is 13.6, hemoglobin 10.9, platelets 226, INR 1, BUN and creatinine are 28 and 1.8. Her LFTs are, total bilirubin 1.1 with AST of 40, ALT of 10. Troponin is 0.15, and urinalysis is negative. Cultures have been sent, and they are pending. She is currently on Zosyn. IMPRESSION: 1. Given her history of lung cancer on immunotherapy and current radiographic findings and fever, cannot rule out pneumonia. Would continue Zosyn with plans to switch to Augmentin. Would obtain urinary antigens as well. 2. History of rheumatoid arthritis on prednisone. EVAN FLORES M.D. [id number]
--- NOTE | 2018-09-12 19:37 | PN ---
Teaching Attending Note Name of Resident: Adama Garcia ATTENDING PHYSICIAN STATEMENT I saw and evaluated the patient. I reviewed the resident's note and discussed the case with the resident. I agree with the resident's findings and plan as documented. SUBJECTIVE: Patient seen and examined 73 year old presents with chest pain and SOB hx of lung ca previously on multiple lines of therapy and s/p surgery. Currently on immunotherapy followed by Dr. Paige. Additional history of Rheumatoid arthritis Has LLL infiltrate and elevation of troponin ? demand ischemia from pulmonary disease Last Vital Signs Temp Pulse Resp BP Pulse Ox 98.4 F 117 H 24 H 119/71 93 L 09/12/18 14:05 09/12/18 14:05 09/12/18 14:05 09/12/18 14:05 09/12/18 09:00 HEENT: GIUSEPPE, EOM Intact Oropharynx: No thrush, No mucositis Cor: RSR, No murmurs, No gallops Lungs:coarse rales, wheezes Abd: Soft, Normal bowel sounds, No organomegaly Ext:No significant edema Skin: No rashes, Integument intact CBC, BMP 09/12/18 12:25 09/12/18 12:25 Current Medications Generic Name Dose Route Start Last Admin Trade Name Freq PRN Reason Stop Dose Admin Acetaminophen 650 mg 09/12/18 11:27 Tylenol - PO Q4H PRN FEVER Albuterol/Ipratropium 1 amp 09/12/18 16:00 09/12/18 17:38 Duoneb - NEB 1 amp RQID RICHARD Administration Albuterol/Ipratropium 1 amp 09/12/18 12:33 Duoneb - NEB Q4H PRN SHORTNESS OF BREATH Alprazolam 0.25 mg 09/12/18 10:00 09/12/18 09:13 Xanax - PO Not Given DAILY R[facility]ARD Amlodipine Besylate 5 mg 09/12/18 10:00 09/12/18 09:12 Norvasc - PO 5 mg DAILY R[facility]ARD Administration Atovaquone 1,500 mg 09/12/18 08:00 09/12/18 10:16 Mepron - PO 1,500 mg DAILY@0800 RICHARD Administration Heparin Sodium (Porcine) 5,000 unit 09/12/18 10:00 Heparin - SQ BID [facility]ARD Sodium Chloride 1,000 mls @ 75 mls/hr 09/12/18 00:30 09/12/18 01:01 1/2 Normal Saline IV 75 mls/hr ASDIR R[facility]ARD Administration Piperacillin Sod/Tazobactam 50 mls @ 100 mls/hr 09/13/18 02:00 Sod 3.375 gm/ Dextrose IVPB Q8H-IV [facility]ARD Protocol Leflunomide 20 mg 09/12/18 10:00 09/12/18 11:16 Arava - PO 20 mg DAILY [facility]ARD Administration Losartan Potassium 50 mg 09/12/18 10:00 09/12/18 09:13 Cozaar - PO 50 mg DAILY [facility]ARD Administration Methylprednisolone Sodium Succinate 40 mg 09/12/18 15:00 09/12/18 14:45 Solu-Medrol - IVPUSH 40 mg Q6H-IV [facility] Administration Pantoprazole Sodium 40 mg 09/12/18 10:00 09/12/18 09:12 Protonix - PO 40 mg DAILY [facility]ARD Administration Sulfasalazine 1,000 mg 09/12/18 10:00 09/12/18 09:11 Azulfidine En-Tabs - PO 1,000 mg BID R[facility]ARD Administration Tramadol HCl 50 mg 09/12/18 00:28 Ultram - PO Q8H PRN PAIN LEVEL 1-5 Zolpidem Tartrate 5 mg 09/12/18 22:00 Ambien - PO HS [facility] Impression: Lung ca on immunotherapy + troponin - ? demand ischemia LLL infiltrate Plan:; Antibiotics per ID Cardiac /pulmonary follow up. OBJECTIVE: ASSESSMENT AND PLAN:
[2018-09-12] MEDS ORDERED: ZOLPIDEM TARTRATE 5 MG TABLET PO PRN (21:00)
[2018-09-12] MEDS ORDERED: ALPRAZolam 0.25 MG TABLET PO ONE (22:18)
[2018-09-12] MEDS: guaiFENesin 600 MG TABLET.ER (FP) PO SCH (22:48)
[2018-09-12] MEDS: ALBUTEROL SO4 2.5/IPRATROPIUM 0.5 INH SOL 3 ML VIAL.NEB. NEB PRN (23:03)
[2018-09-13] MEDS: ZOLPIDEM TARTRATE 5 MG TABLET PO SCH ×2 (00:01→22:00)
[2018-09-13] MEDS ORDERED: DEXTROSE 5%-WATER - 50 ML IVPB ONE ×2 (01:11→20:35)
[2018-09-13] MEDS ORDERED: PIPERACILLIN/TAZOBACTAM 3.375 GM VIAL IVPB ONE ×2 (01:11→20:34)
[2018-09-13] MEDS: methylPREDNISolone NA SUCC 40 MG/1 ML VIAL IVPUSH SCH ×4 (03:51→21:07)
[2018-09-13] MEDS: PIPERACILLIN/TAZOB 3.375 GM 3.375 GM in DEXTROSE 5%-WATER - 50 ML IVPB SCH ×4 (03:51→17:30)
[2018-09-13] MEDS: SODIUM CHLORIDE 0.45% 1,000 ML IV SCH (06:00)
[2018-09-13] MEDS: ALBUTEROL SO4 2.5/IPRATROPIUM 0.5 INH SOL 3 ML VIAL.NEB. NEB SCH ×4 (07:30→21:19)
[2018-09-13] MEDS: ATOVAQUONE 750 MG/5 ML (UNIT-DOSE PACKAGING) PO SCH ×2 (09:20→11:09)
[2018-09-13] MEDS ORDERED: PT OWN MED DRAWER 7, Y5N ONE ×2 (09:20→11:16)
[2018-09-13] MEDS: HEPARIN NA (PORCINE) 5,000 UNITS/ML 1ML VIAL SQ SCH ×2 (09:21→21:07)
[2018-09-13] MEDS: guaiFENesin 600 MG TABLET.ER (FP) PO SCH ×2 (09:22→21:06)
[2018-09-13] MEDS: amLODIPine BESYLATE 5 MG TABLET (FP) PO SCH (09:22)
[2018-09-13] MEDS: ALPRAZolam 0.25 MG TABLET PO SCH (09:22)
[2018-09-13] MEDS: LEFLUNOMIDE 10 MG TABLET PO SCH ×2 (09:22→11:11)
[2018-09-13] MEDS: LOSARTAN POTASSIUM 50 MG TABLET (FP) PO SCH (09:22)
[2018-09-13] MEDS: PANTOPRAZOLE 40 MG TABLET (FP) PO SCH (09:22)
--- NOTE | 2018-09-13 13:12 | PN ---
Progress Note, Physician Chief Complaint: patient seen and examined in bed - Current Medication List Current Medications: Active Medications Acetaminophen (Tylenol -) 650 mg PO Q4H PRN PRN Reason: FEVER Albuterol/Ipratropium (Duoneb -) 1 amp NEB RQID [facility] Last Admin: 09/13/18 12:05 Dose: 1 amp Albuterol/Ipratropium (Duoneb -) 1 amp NEB Q4H PRN PRN Reason: SHORTNESS OF BREATH Last Admin: 09/12/18 23:03 Dose: 1 amp Alprazolam (Xanax -) 0.25 mg PO DAILY [facility] Last Admin: 09/13/18 09:22 Dose: 0.25 mg Amlodipine Besylate (Norvasc -) 5 mg PO DAILY [facility] Last Admin: 09/13/18 09:22 Dose: 5 mg Atovaquone (Mepron -) 1,500 mg PO DAILY@0800 [facility] Last Admin: 09/13/18 11:09 Dose: 750 mg Guaifenesin (Mucinex -) 600 mg PO BID [facility] Last Admin: 09/13/18 09:22 Dose: 600 mg Heparin Sodium (Porcine) (Heparin -) 5,000 unit SQ BID [facility] Last Admin: 09/13/18 09:21 Dose: 5,000 unit Sodium Chloride (1/2 Normal Saline) 1,000 mls @ 75 mls/hr IV ASDIR [facility] Last Admin: 09/13/18 06:00 Dose: 75 mls/hr Piperacillin Sod/Tazobactam (Sod 3.375 gm/ Dextrose) 50 mls @ 100 mls/hr IVPB Q8H-IV [facility]; Protocol Last Admin: 09/13/18 10:59 Dose: 100 mls/hr Leflunomide (Arava -) 20 mg PO DAILY [facility] Last Admin: 09/13/18 11:11 Dose: 20 mg Losartan Potassium (Cozaar -) 50 mg PO DAILY [facility] Last Admin: 09/13/18 09:22 Dose: 50 mg Methylprednisolone Sodium Succinate (Solu-Medrol -) 40 mg IVPUSH Q6H-IV [facility] Last Admin: 09/13/18 09:22 Dose: 40 mg Pantoprazole Sodium (Protonix -) 40 mg PO DAILY [facility] Last Admin: 09/13/18 09:22 Dose: 40 mg Sulfasalazine (Azulfidine En-Tabs -) 1,000 mg PO BID [facility] Last Admin: 09/13/18 11:10 Dose: 1,000 mg Tramadol HCl (Ultram -) 50 mg PO Q8H PRN PRN Reason: PAIN LEVEL 1-5 Zolpidem Tartrate (Ambien -) 5 mg PO HS [facility] Last Admin: 09/13/18 00:01 Dose: 5 mg - Objective Vital Signs: Vital Signs Temperature 98.4 F 09/13/18 06:00 Pulse Rate 102 H 09/13/18 06:00 Respiratory Rate 20 09/13/18 09:00 Blood Pressure 114/62 09/13/18 06:00 O2 Sat by Pulse Oximetry (%) 94 L 09/13/18 09:00 Constitutional: Yes: Calm Cardiovascular: Yes: Regular Rate and Rhythm, S1, S2 Respiratory: Yes: Rhonchi Gastrointestinal: Yes: Normal Bowel Sounds, Soft Edema: Yes (slight edema) Neurological: Yes: Alert, Oriented Labs: CBC, BMP 09/12/18 12:25 09/12/18 12:25 INR, PTT INR 1.07 (0.83-1.09) 09/11/18 18:00 Problem List - Problems (1) Acute on chronic respiratory failure with hypoxemia Assessment/Plan: iv medrol oxygen pulm on board Code(s): J96.21 - ACUTE AND CHRONIC RESPIRATORY FAILURE WITH HYPOXIA (2) Pneumonia Assessment/Plan: iv abx Code(s): J18.9 - PNEUMONIA, UNSPECIFIED ORGANISM (3) THIAGO (acute kidney injury) Assessment/Plan: ivf fluids creatinine is improving is down from 2.1 to 1.8 Code(s): N17.9 - ACUTE KIDNEY FAILURE, UNSPECIFIED (4) Elevated troponin Assessment/Plan: secondary to demand ischemia echo Code(s): R74.8 - ABNORMAL LEVELS OF OTHER SERUM ENZYMES
--- NOTE | 2018-09-13 14:06 | EKG ---
Test Reason : Blood Pressure : / mmHG Vent. Rate : 119 BPM Atrial Rate : 119 BPM P-R Int : 156 ms QRS Dur : 078 ms QT Int : 330 ms P-R-T Axes : 052 038 075 degrees QTc Int : 464 ms POOR DATA QUALITY, INTERPRETATION MAY BE ADVERSELY AFFECTED SINUS TACHYCARDIA WITH OCCASIONAL PREMATURE VENTRICULAR COMPLEXES NONSPECIFIC ST AND T WAVE ABNORMALITY ABNORMAL ECG WHEN COMPARED WITH ECG OF 11-SEP-2018 16:59, PREMATURE VENTRICULAR COMPLEXES ARE NOW PRESENT NONSPECIFIC T WAVE ABNORMALITY NOW EVIDENT IN LATERAL LEADS Confirmed by AILYN MORELAND MD ([id number]) on 09/13/2018 2:05:56 PM Referred By: Confirmed By:AILYN MORELAND MD
--- NOTE | 2018-09-13 14:18 | PN ---
Progress Note (short form) - Note Progress Note: PULMONARY Still with dyspnea with minimal exertion, +nonproductive cough and wheezing. Vital Signs Period Temp Pulse Resp BP Sys/Medeiros Pulse Ox Last 24 Hr 97.6 F-98.7 F 102-120 20-24 114-126/32-72 93-94 Gen: mildly tachypneic with speaking Heart: RRR Lung: scattered wheezes Abd: soft, nontender Ext: no edema CBC, BMP 09/12/18 12:25 09/12/18 12:25 Active Medications Acetaminophen (Tylenol -) 650 mg PO Q4H PRN PRN Reason: FEVER Albuterol/Ipratropium (Duoneb -) 1 amp NEB RQID [facility] Last Admin: 09/13/18 12:05 Dose: 1 amp Albuterol/Ipratropium (Duoneb -) 1 amp NEB Q4H PRN PRN Reason: SHORTNESS OF BREATH Last Admin: 09/12/18 23:03 Dose: 1 amp Alprazolam (Xanax -) 0.25 mg PO DAILY [facility] Last Admin: 09/13/18 09:22 Dose: 0.25 mg Amlodipine Besylate (Norvasc -) 5 mg PO DAILY [facility] Last Admin: 09/13/18 09:22 Dose: 5 mg Atovaquone (Mepron -) 1,500 mg PO DAILY@0800 [facility] Last Admin: 09/13/18 11:09 Dose: 750 mg Guaifenesin (Mucinex -) 600 mg PO BID [facility] Last Admin: 09/13/18 09:22 Dose: 600 mg Heparin Sodium (Porcine) (Heparin -) 5,000 unit SQ BID [facility] Last Admin: 09/13/18 09:21 Dose: 5,000 unit Sodium Chloride (1/2 Normal Saline) 1,000 mls @ 75 mls/hr IV ASDIR [facility] Last Admin: 09/13/18 06:00 Dose: 75 mls/hr Piperacillin Sod/Tazobactam (Sod 3.375 gm/ Dextrose) 50 mls @ 100 mls/hr IVPB Q8H-IV [facility]; Protocol Last Admin: 09/13/18 10:59 Dose: 100 mls/hr Leflunomide (Arava -) 20 mg PO DAILY [facility] Last Admin: 09/13/18 11:11 Dose: 20 mg Losartan Potassium (Cozaar -) 50 mg PO DAILY [facility] Last Admin: 09/13/18 09:22 Dose: 50 mg Methylprednisolone Sodium Succinate (Solu-Medrol -) 40 mg IVPUSH Q6H-IV [facility] Last Admin: 09/13/18 09:22 Dose: 40 mg Pantoprazole Sodium (Protonix -) 40 mg PO DAILY [facility] Last Admin: 09/13/18 09:22 Dose: 40 mg Sulfasalazine (Azulfidine En-Tabs -) 1,000 mg PO BID [facility] Last Admin: 09/13/18 11:10 Dose: 1,000 mg Tramadol HCl (Ultram -) 50 mg PO Q8H PRN PRN Reason: PAIN LEVEL 1-5 Zolpidem Tartrate (Ambien -) 5 mg PO HS [facility] Last Admin: 09/13/18 00:01 Dose: 5 mg A/P Acute on Chronic Hypoxic Respiratory Failure r/o Pneumonia Sepsis Metastatic NSCLC (Squamous Cell) Acute COPD EXacerbation +Troponins likely Demand Ischemia Acute Kidney Injury Lactic Acidosis RA - continue antibiotics - f/u cultures - IVF - monitor urine output, creatinine - continue medrol - inhaled bronchodilators - O2 to keep SpO2 >90% - DVT prophylaxis
--- NOTE | 2018-09-13 15:38 | PN ---
Progress Note (short form) - Note Progress Note: Renal follow up for THIAGO Pt seen and examined at the bedside has some CHU no chest pain, abd pain, fever, chills making clear urine on IVF Vital Signs Temperature 97.6 F 09/13/18 14:00 Pulse Rate 110 H 09/13/18 14:00 Respiratory Rate 20 09/13/18 14:00 Blood Pressure 130/71 09/13/18 14:00 O2 Sat by Pulse Oximetry (%) 94 L 09/13/18 09:00 Intake & Output 09/10/18 09/11/18 09/12/18 09/13/18 23:59 23:59 23:59 23:59 Intake Total 2225 150 Balance 2225 150 Weight 88.904 kg 90.174 kg NAD awake and alert neck supple, no JVD RRR, No N/R + rales left lung base (improving) soft NT/ND trace edema in LE CBC, BMP 09/12/18 12:25 09/12/18 12:25 Current Medications Acetaminophen (Tylenol -) 650 mg PO Q4H PRN PRN Reason: FEVER Albuterol/Ipratropium (Duoneb -) 1 amp NEB RQID [facility] Last Admin: 09/13/18 15:31 Dose: Not Given Albuterol/Ipratropium (Duoneb -) 1 amp NEB Q4H PRN PRN Reason: SHORTNESS OF BREATH Last Admin: 09/12/18 23:03 Dose: 1 amp Alprazolam (Xanax -) 0.25 mg PO DAILY [facility] Last Admin: 09/13/18 09:22 Dose: 0.25 mg Amlodipine Besylate (Norvasc -) 5 mg PO DAILY [facility] Last Admin: 09/13/18 09:22 Dose: 5 mg Atovaquone (Mepron -) 1,500 mg PO DAILY@0800 [facility] Last Admin: 09/13/18 11:09 Dose: 750 mg Guaifenesin (Mucinex -) 600 mg PO BID [facility] Last Admin: 09/13/18 09:22 Dose: 600 mg Heparin Sodium (Porcine) (Heparin -) 5,000 unit SQ BID [facility] Last Admin: 09/13/18 09:21 Dose: 5,000 unit Sodium Chloride (1/2 Normal Saline) 1,000 mls @ 75 mls/hr IV ASDIR [facility] Last Admin: 09/13/18 06:00 Dose: 75 mls/hr Piperacillin Sod/Tazobactam (Sod 3.375 gm/ Dextrose) 50 mls @ 100 mls/hr IVPB Q8H-IV [facility]; Protocol Last Admin: 09/13/18 10:59 Dose: 100 mls/hr Leflunomide (Arava -) 20 mg PO DAILY [facility] Last Admin: 09/13/18 11:11 Dose: 20 mg Methylprednisolone Sodium Succinate (Solu-Medrol -) 40 mg IVPUSH Q6H-IV [facility] Last Admin: 09/13/18 09:22 Dose: 40 mg Pantoprazole Sodium (Protonix -) 40 mg PO DAILY [facility] Last Admin: 09/13/18 09:22 Dose: 40 mg Sulfasalazine (Azulfidine En-Tabs -) 1,000 mg PO BID [facility] Last Admin: 09/13/18 11:10 Dose: 1,000 mg Tramadol HCl (Ultram -) 50 mg PO Q8H PRN PRN Reason: PAIN LEVEL 1-5 Zolpidem Tartrate (Ambien -) 5 mg PO HS [facility] Last Admin: 09/13/18 00:01 Dose: 5 mg 73 year old woman with history of hypertension, RA, Lung Ca s/ p chemo and lobectomy who presented with epigastric/substernal CP adn found to have THIAGO with Cr of 2.4. #Acute kidney injury likely due to renal hypoprofusin in setting of PNA/ Diuretics/ARB #Suspected PNA #Hypertension #Mild Hyponatremia Renal function improving no evidence of obstruction of urine flow based on CT (did show non-obstructing stone) UA shows a bland sediment no need for Renal US at this time Urine stuides show low urine sodium consistent with pre-renal injury continue gentle IV hydratin pt refused blood draw today after being stuck several times Empiric antibiotics as per primary team Thank you Shleton Chery DO
--- NOTE | 2018-09-13 16:50 | ECHO ---
Name: TYLER ZAVALETA Exam:Adult Echocardiogram Study Date: 09/13/2018 02:08 PM Age: 73 yrs Reason For Study: ejection fraction Height: 66 in Weight: 198 lb BSA: 2.0 m2 MMode/2D Measurements & Calculations IVSd: 0.84 cm Ao root diam: 3.3 cm LVOT diam: 2.2 cm RV S Kaiden: 9.1 cm/sec Doppler Measurements & Calculations MV E max kaiden: 59.7 cm/sec Ao V2 max: 131.6 cm/sec MV A max kaiden: 90.7 cm/sec Ao max P.0 mmHg MV E/A: 0.66 Ao V2 mean: 93.5 cm/sec MV dec time: 0.13 sec Ao mean P.2 mmHg Ao V2 VTI: 26.6 cm DANYELL(I,D): 1.9 cm2 DANYELL(V,D): 2.6 cm2 LV V1 max P.1 mmHg SV(LVOT): 50.9 ml LV V1 mean P.5 mmHg LV V1 max: 87.8 cm/sec LV V1 mean: 53.7 cm/sec LV V1 VTI: 12.8 cm PA V2 max: 98.4 cm/sec Med Peak E' Kaiden: 6.7 cm/sec PA max P.9 mmHg Med E/e': 8.9 Lat Peak E' Kaiden: 6.4 cm/sec Lat E/e': 9.3 Procedure A two-dimensional transthoracic echocardiogram with color flow and Doppler was performed. The study w as technically limited with all images being suboptimal in quality. Left Ventricle The left ventricle is grossly normal size. Left ventricular systolic function is grossly normal. Ciara onal wall motion abnormalities cannot be excluded due to limited visualization. Right Ventricle The right ventricle is grossly normal size. The right ventricular systolic function is grossly normal . Atria The left atrial size is normal. Right atrium not well visualized. Mitral Valve There is no mitral regurgitation noted. Tricuspid Valve There is trace tricuspid regurgitation. There was insufficient TR detected to calculate RV systolic p ressure. Aortic Valve No hemodynamically significant valvular aortic stenosis. No aortic regurgitation is present. Pulmonic Valve There is no pulmonic valvular regurgitation. Great Vessels The aortic root is normal size. Pericardium/Pleura There is no pericardial effusion. Interpretation Summary The study was technically limited with all images being suboptimal in quality. The left ventricle is grossly normal size. Left ventricular systolic function is grossly normal. The right ventricle is grossly normal size. The right ventricular systolic function is grossly normal. There is trace tricuspid regurgitation. MD Chan Peraza 09/13/2018 04:49 PM
--- NOTE | 2018-09-13 21:55 | PN ---
Progress Note (short form) - Note Progress Note: Patient seen and examined Feels better Last Vital Signs Temp Pulse Resp BP Pulse Ox 97.8 F 112 H 20 150/89 94 L 09/13/18 17:00 09/13/18 17:00 09/13/18 17:00 09/13/18 17:00 09/13/18 09:00 Cor: RSR, No murmurs, No gallops Lungs: Clear to P&A Abd: Soft, Normal bowel sounds, No organomegaly Ext:No significant edema Labs/Meds reviewed A/P Metastatic lung ca on nivolumab LLL infiltrate On antibiotics/ steroids --clinically improved poor iv access--patient agreeable to por access in am Continue steroids/antibiotics ? repeat Ct chest
[2018-09-14] MEDS: SODIUM CHLORIDE 0.45% 1,000 ML IV SCH (00:45)
[2018-09-14] MEDS: PIPERACILLIN/TAZOB 3.375 GM 3.375 GM in DEXTROSE 5%-WATER - 50 ML IVPB SCH ×4 (02:56→17:21)
[2018-09-14] MEDS: methylPREDNISolone NA SUCC 40 MG/1 ML VIAL IVPUSH SCH ×5 (02:56→21:54)
[2018-09-14] MEDS: ALBUTEROL SO4 2.5/IPRATROPIUM 0.5 INH SOL 3 ML VIAL.NEB. NEB SCH ×4 (07:35→21:34)
[2018-09-14] MEDS: LEFLUNOMIDE 10 MG TABLET PO SCH (10:10)
[2018-09-14] MEDS: ATOVAQUONE 750 MG/5 ML (UNIT-DOSE PACKAGING) PO SCH (10:12)
[2018-09-14] MEDS: guaiFENesin 600 MG TABLET.ER (FP) PO SCH ×2 (10:13→21:56)
[2018-09-14] MEDS: PANTOPRAZOLE 40 MG TABLET (FP) PO SCH (10:13)
[2018-09-14] MEDS: amLODIPine BESYLATE 5 MG TABLET (FP) PO SCH (10:13)
[2018-09-14] MEDS: HEPARIN NA (PORCINE) 5,000 UNITS/ML 1ML VIAL SQ SCH ×2 (10:14→21:55)
[2018-09-14] MEDS: ALPRAZolam 0.25 MG TABLET PO SCH ×3 (10:16→21:56)
[2018-09-14] MEDS ORDERED: PORTA CATH FLUSH 10 ML IVPUSH ONE (11:04)
--- NOTE | 2018-09-14 12:34 | PN ---
Progress Note (short form) - Note Progress Note: still coughing and wheezing chest pain resolved unable to draw labs Vital Signs Period Temp Pulse Resp BP Sys/Medeiros Pulse Ox Last 24 Hr 97.6 F-98 F 101-112 18-24 122-155/57-102 95-95 cor-rrr lungs bilateral rhonchi abd soft,nt ext no edema CBC, BMP 09/12/18 12:25 09/12/18 12:25 Microbiology 09/11/18 19:53 Blood - Peripheral Venous Blood Culture - Preliminary NO GROWTH OBTAINED AFTER 48 HOURS, INCUBATION TO CONTINUE FOR 3 DAYS. 09/11/18 19:55 Blood - Peripheral Venous Blood Culture - Preliminary NO GROWTH OBTAINED AFTER 48 HOURS, INCUBATION TO CONTINUE FOR 3 DAYS. 09/12/18 18:07 Urine For Antigen Detection Legionella Antigen - Final 09/12/18 18:07 Urine For Antigen Detection Streptococcus pneumoniae Antigen (M - Final 09/11/18 19:55 Urine - Urine - Catheterized Urine Culture - Final NO GROWTH OBTAINED Current Medications Acetaminophen (Tylenol -) 650 mg PO Q4H PRN PRN Reason: FEVER Albuterol/Ipratropium (Duoneb -) 1 amp NEB RQID [facility] Last Admin: 09/14/18 11:25 Dose: 1 amp Albuterol/Ipratropium (Duoneb -) 1 amp NEB Q4H PRN PRN Reason: SHORTNESS OF BREATH Last Admin: 09/12/18 23:03 Dose: 1 amp Alprazolam (Xanax -) 0.25 mg PO DAILY [facility] Last Admin: 09/14/18 10:16 Dose: Not Given Amlodipine Besylate (Norvasc -) 5 mg PO DAILY [facility] Last Admin: 09/14/18 10:13 Dose: 5 mg Atovaquone (Mepron -) 1,500 mg PO DAILY@0800 [facility] Last Admin: 09/14/18 10:12 Dose: 1,500 mg Guaifenesin (Mucinex -) 600 mg PO BID [facility] Last Admin: 09/14/18 10:13 Dose: 600 mg Heparin Sodium (Porcine) (Heparin -) 5,000 unit SQ BID [facility] Last Admin: 09/14/18 10:14 Dose: Not Given Sodium Chloride (1/2 Normal Saline) 1,000 mls @ 75 mls/hr IV ASDIR [facility] Last Admin: 09/14/18 00:45 Dose: Not Given Piperacillin Sod/Tazobactam (Sod 3.375 gm/ Dextrose) 50 mls @ 100 mls/hr IVPB Q8H-IV [facility]; Protocol Last Admin: 09/14/18 11:25 Dose: 100 mls/hr Leflunomide (Arava -) 20 mg PO DAILY [facility] Last Admin: 09/14/18 10:10 Dose: 20 mg Methylprednisolone Sodium Succinate (Solu-Medrol -) 40 mg IVPUSH Q6H-IV [facility] Last Admin: 09/14/18 11:28 Dose: 40 mg Pantoprazole Sodium (Protonix -) 40 mg PO DAILY [facility] Last Admin: 09/14/18 10:13 Dose: 40 mg Sulfasalazine (Azulfidine En-Tabs -) 1,000 mg PO BID [facility] Last Admin: 09/14/18 10:12 Dose: 1,000 mg Tramadol HCl (Ultram -) 50 mg PO Q8H PRN PRN Reason: PAIN LEVEL 1-5 Zolpidem Tartrate (Ambien -) 5 mg PO HS [facility] Last Admin: 09/13/18 22:00 Dose: Not Given a/p cannot r/o pneumonia- continue zosyn day #3, on steroids as well lung cancer on immunothrapy THIAGO - new history of RA Problem List - Problems (1) Fever Code(s): R50.9 - FEVER, UNSPECIFIED (2) Pneumonia Code(s): J18.9 - PNEUMONIA, UNSPECIFIED ORGANISM (3) Lung cancer Code(s): C34.90 - MALIGNANT NEOPLASM OF UNSP PART OF UNSP BRONCHUS OR LUNG Qualifiers: Laterality: unspecified laterality Lung location: unspecified part of lung Qualified Code(s): C34.90 - Malignant neoplasm of unspecified part of unspecified bronchus or lung (4) THIAGO (acute kidney injury) Code(s): N17.9 - ACUTE KIDNEY FAILURE, UNSPECIFIED
[2018-09-14 13:52] LABS: HEMATOCRIT 30.9 % (32.4-45.2); HEMOGLOBIN 10.2 GM/dL (10.7-15.3); LYMPH % 3.2 % (8-40); MCH 29.3 pg (25.7-33.7); MCHC 32.9 g/dl (32.0-36.0); MEAN CELL VOLUME 88.9 fl (80-96); MEAN PLT VOLUME 7.6 fl (7.5-11.1); NEUT % 91.8 % (42.8-82.8); PLATELET COUNT 267 K/MM3 (134-434); RBC 3.47 M/mm3 (3.60-5.2); RDW 17.8 % (11.6-15.6); WHITE BLOOD COUNT 14.5 K/mm3 (4.0-10.0)
--- NOTE | 2018-09-14 14:10 | PN ---
Progress Note (short form) - Note Progress Note: Still with dyspnea with minimal exertion. Does not want IV steroids. Nonproductive cough and wheezing. Intake & Output 09/11/18 09/12/18 09/13/18 09/14/18 23:59 23:59 23:59 23:59 Intake Total 2225 1300 465 Balance 2225 1300 465 Weight 196 lb 198 lb 12.8 oz Last Vital Signs Temp Pulse Resp BP Pulse Ox 98 F 101 H 18 148/102 H 95 09/14/18 05:00 09/14/18 08:54 09/14/18 08:54 09/14/18 08:54 09/14/18 08:53 Active Medications Acetaminophen (Tylenol -) 650 mg PO Q4H PRN PRN Reason: FEVER Albuterol/Ipratropium (Duoneb -) 1 amp NEB RQID [facility] Last Admin: 09/14/18 11:25 Dose: 1 amp Albuterol/Ipratropium (Duoneb -) 1 amp NEB Q4H PRN PRN Reason: SHORTNESS OF BREATH Last Admin: 09/12/18 23:03 Dose: 1 amp Alprazolam (Xanax -) 0.25 mg PO DAILY [facility] Last Admin: 09/14/18 10:16 Dose: Not Given Amlodipine Besylate (Norvasc -) 5 mg PO DAILY [facility] Last Admin: 09/14/18 10:13 Dose: 5 mg Atovaquone (Mepron -) 1,500 mg PO DAILY@0800 [facility] Last Admin: 09/14/18 10:12 Dose: 1,500 mg Guaifenesin (Mucinex -) 600 mg PO BID [facility] Last Admin: 09/14/18 10:13 Dose: 600 mg Heparin Sodium (Porcine) (Heparin -) 5,000 unit SQ BID [facility] Last Admin: 09/14/18 10:14 Dose: Not Given Sodium Chloride (1/2 Normal Saline) 1,000 mls @ 75 mls/hr IV ASDIR [facility] Last Admin: 09/14/18 00:45 Dose: Not Given Piperacillin Sod/Tazobactam (Sod 3.375 gm/ Dextrose) 50 mls @ 100 mls/hr IVPB Q8H-IV [facility]; Protocol Last Admin: 09/14/18 11:25 Dose: 100 mls/hr Leflunomide (Arava -) 20 mg PO DAILY [facility] Last Admin: 09/14/18 10:10 Dose: 20 mg Methylprednisolone Sodium Succinate (Solu-Medrol -) 40 mg IVPUSH Q6H-IV [facility] Last Admin: 09/14/18 11:28 Dose: 40 mg Pantoprazole Sodium (Protonix -) 40 mg PO DAILY [facility] Last Admin: 09/14/18 10:13 Dose: 40 mg Sulfasalazine (Azulfidine En-Tabs -) 1,000 mg PO BID [facility] Last Admin: 09/14/18 10:12 Dose: 1,000 mg Tramadol HCl (Ultram -) 50 mg PO Q8H PRN PRN Reason: PAIN LEVEL 1-5 Zolpidem Tartrate (Ambien -) 5 mg PO HS [facility] Last Admin: 09/13/18 22:00 Dose: Not Given Gen: mildly tachypneic with speaking Heart: RRR Lung: bilateral expiratory wheezes Abd: soft, nontender Ext: no edema Laboratory Results - last 24 hr 09/14/18 13:25 WBC 14.5 H RBC 3.47 L Hgb 10.2 L Hct 30.9 L MCV 88.9 MCH 29.3 MCHC 32.9 RDW 17.8 H Plt Count 267 MPV 7.6 Absolute Neuts (auto) 13.3 H Neutrophils % 91.8 H Lymphocytes % 3.2 L D Monocytes % 5.0 Eosinophils % 0.0 D Basophils % 0.0 Nucleated RBC % 0 A/P Acute on Chronic Hypoxic Respiratory Failure r/o Pneumonia Sepsis Metastatic NSCLC (Squamous Cell) Acute COPD EXacerbation +Troponins likely Demand Ischemia Acute Kidney Injury Lactic Acidosis RA - continue antibiotics - f/u cultures - IVF - monitor urine output, creatinine - continue medrol - inhaled bronchodilators - O2 to keep SpO2 >90% - DVT prophylaxis
[2018-09-14 14:23] LABS: ALBUMIN 2.5 g/dl (3.4-5.0); BILIRUBIN,TOTAL 0.6 mg/dL (0.2-1); CALCIUM 9.1 mg/dL (8.5-10.1); CREATININE 1.4 mg/dL (0.55-1.3); MAGNESIUM 1.8 mg/dL (1.8-2.4); POTASSIUM 3.6 mmol/L (3.5-5.1); TOT PROT 6.2 g/dl (6.4-8.2)
[2018-09-14 14:54] LABS: ANISOCYTOSIS 0; MACROCYTOSIS 0; PLATELET ESTIMATE NORMAL
--- NOTE | 2018-09-14 14:58 | PN ---
Progress Note (short form) - Note Progress Note: Renal follow up for THIAGO Pt seen and examined at the bedside awake and alert concerned about slight Vital Signs Temperature 97.6 F 09/13/18 14:00 Pulse Rate 110 H 09/13/18 14:00 Respiratory Rate 20 09/13/18 14:00 Blood Pressure 130/71 09/13/18 14:00 O2 Sat by Pulse Oximetry (%) 94 L 09/13/18 09:00 Intake & Output 09/10/18 09/11/18 09/12/18 09/13/18 23:59 23:59 23:59 23:59 Intake Total 2225 150 Balance 2225 150 Weight 88.904 kg 90.174 kg NAD awake and alert neck supple, no JVD RRR, No N/R dec BS, no overt rales soft NT/ND trace edema in LE CBC, BMP 09/14/18 13:25 09/14/18 13:25 Current Medications Acetaminophen (Tylenol -) 650 mg PO Q4H PRN PRN Reason: FEVER Albuterol/Ipratropium (Duoneb -) 1 amp NEB RQID [facility] Last Admin: 09/14/18 11:25 Dose: 1 amp Albuterol/Ipratropium (Duoneb -) 1 amp NEB Q4H PRN PRN Reason: SHORTNESS OF BREATH Last Admin: 09/12/18 23:03 Dose: 1 amp Alprazolam (Xanax -) 0.25 mg PO DAILY [facility] Last Admin: 09/14/18 10:16 Dose: Not Given Amlodipine Besylate (Norvasc -) 5 mg PO DAILY [facility] Last Admin: 09/14/18 10:13 Dose: 5 mg Atovaquone (Mepron -) 1,500 mg PO DAILY@0800 [facility] Last Admin: 09/14/18 10:12 Dose: 1,500 mg Guaifenesin (Mucinex -) 600 mg PO BID [facility] Last Admin: 09/14/18 10:13 Dose: 600 mg Heparin Sodium (Porcine) (Heparin -) 5,000 unit SQ BID [facility] Last Admin: 09/14/18 10:14 Dose: Not Given Sodium Chloride (1/2 Normal Saline) 1,000 mls @ 75 mls/hr IV ASDIR [facility] Last Admin: 09/14/18 00:45 Dose: Not Given Piperacillin Sod/Tazobactam (Sod 3.375 gm/ Dextrose) 50 mls @ 100 mls/hr IVPB Q8H-IV [facility]; Protocol Last Admin: 09/14/18 11:25 Dose: 100 mls/hr Leflunomide (Arava -) 20 mg PO DAILY [facility] Last Admin: 09/14/18 10:10 Dose: 20 mg Methylprednisolone Sodium Succinate (Solu-Medrol -) 40 mg IVPUSH Q6H-IV [facility] Last Admin: 09/14/18 11:28 Dose: 40 mg Pantoprazole Sodium (Protonix -) 40 mg PO DAILY [facility] Last Admin: 09/14/18 10:13 Dose: 40 mg Sulfasalazine (Azulfidine En-Tabs -) 1,000 mg PO BID [facility] Last Admin: 09/14/18 10:12 Dose: 1,000 mg Tramadol HCl (Ultram -) 50 mg PO Q8H PRN PRN Reason: PAIN LEVEL 1-5 Zolpidem Tartrate (Ambien -) 5 mg PO HS [facility] Last Admin: 09/13/18 22:00 Dose: Not Given 73 year old woman with history of hypertension, RA, Lung Ca s/ p chemo and lobectomy who presented with epigastric/substernal CP adn found to have THIAGO with Cr of 2.4. #Acute kidney injury likely due to renal hypoprofusin in setting of PNA/ Diuretics/ARB #Suspected PNA #Hypertension #Mild Hyponatremia Renal function improving toward normal no evidence of obstruction of urine flow based on CT (did show non-obstructing stone) UA shows a bland sediment Urine stuides show low urine sodium consistent with pre-renal injury will discontinue IV hydration today as pt is tolerated an oral diet and no overt hypovolemia noted would hold ARB and Lasix for now can consider restarting Lasix tomorrow if there is significant LE edema Empiric antibiotics as per primary team Thank you Shelton Chery DO
--- NOTE | 2018-09-14 15:01 | PN ---
Progress Note, Physician Chief Complaint: patient seen and examined does not want iv steroids - Current Medication List Current Medications: Active Medications Acetaminophen (Tylenol -) 650 mg PO Q4H PRN PRN Reason: FEVER Albuterol/Ipratropium (Duoneb -) 1 amp NEB RQID [facility] Last Admin: 09/14/18 11:25 Dose: 1 amp Albuterol/Ipratropium (Duoneb -) 1 amp NEB Q4H PRN PRN Reason: SHORTNESS OF BREATH Last Admin: 09/12/18 23:03 Dose: 1 amp Alprazolam (Xanax -) 0.25 mg PO DAILY [facility] Last Admin: 09/14/18 10:16 Dose: Not Given Amlodipine Besylate (Norvasc -) 5 mg PO DAILY [facility] Last Admin: 09/14/18 10:13 Dose: 5 mg Atovaquone (Mepron -) 1,500 mg PO DAILY@0800 [facility] Last Admin: 09/14/18 10:12 Dose: 1,500 mg Guaifenesin (Mucinex -) 600 mg PO BID [facility] Last Admin: 09/14/18 10:13 Dose: 600 mg Heparin Sodium (Porcine) (Heparin -) 5,000 unit SQ BID [facility] Last Admin: 09/14/18 10:14 Dose: Not Given Sodium Chloride (1/2 Normal Saline) 1,000 mls @ 75 mls/hr IV ASDIR [facility] Last Admin: 09/14/18 00:45 Dose: Not Given Piperacillin Sod/Tazobactam (Sod 3.375 gm/ Dextrose) 50 mls @ 100 mls/hr IVPB Q8H-IV [facility]; Protocol Last Admin: 09/14/18 11:25 Dose: 100 mls/hr Leflunomide (Arava -) 20 mg PO DAILY [facility] Last Admin: 09/14/18 10:10 Dose: 20 mg Methylprednisolone Sodium Succinate (Solu-Medrol -) 40 mg IVPUSH Q6H-IV [facility] Last Admin: 09/14/18 11:28 Dose: 40 mg Pantoprazole Sodium (Protonix -) 40 mg PO DAILY [facility] Last Admin: 09/14/18 10:13 Dose: 40 mg Sulfasalazine (Azulfidine En-Tabs -) 1,000 mg PO BID [facility] Last Admin: 09/14/18 10:12 Dose: 1,000 mg Tramadol HCl (Ultram -) 50 mg PO Q8H PRN PRN Reason: PAIN LEVEL 1-5 Zolpidem Tartrate (Ambien -) 5 mg PO HS [facility] Last Admin: 09/13/18 22:00 Dose: Not Given - Objective Vital Signs: Vital Signs Temperature 98 F 09/14/18 05:00 Pulse Rate 101 H 09/14/18 08:54 Respiratory Rate 18 09/14/18 08:54 Blood Pressure 148/102 H 09/14/18 08:54 O2 Sat by Pulse Oximetry (%) 95 09/14/18 08:53 Constitutional: Yes: Calm Cardiovascular: Yes: Regular Rate and Rhythm, S1, S2 Respiratory: Yes: Diminished, On Nasal O2 Gastrointestinal: Yes: Normal Bowel Sounds, Soft Neurological: Yes: Alert Labs: CBC, BMP 09/14/18 13:25 09/14/18 13:25 INR, PTT INR 1.07 (0.83-1.09) 09/11/18 18:00 Problem List - Problems (1) Acute on chronic respiratory failure with hypoxemia Assessment/Plan: iv medrol same dose oxygen pulm on board Code(s): J96.21 - ACUTE AND CHRONIC RESPIRATORY FAILURE WITH HYPOXIA (2) Pneumonia Assessment/Plan: iv abx- zosyn Code(s): J18.9 - PNEUMONIA, UNSPECIFIED ORGANISM (3) THIAGO (acute kidney injury) Assessment/Plan: ivf fluids stop today creatinine is improving is down from 2.1 to 1.8 to 1.4 might restart lasix tmw if significant LE edema Code(s): N17.9 - ACUTE KIDNEY FAILURE, UNSPECIFIED (4) Elevated troponin Assessment/Plan: secondary to demand ischemia echo Code(s): R74.8 - ABNORMAL LEVELS OF OTHER SERUM ENZYMES
[2018-09-14] MEDS ORDERED: ZOLPIDEM TARTRATE 5 MG TABLET PO PRN (16:15)
--- NOTE | 2018-09-14 19:16 | PN ---
Progress Note (short form) - Note Progress Note: Patient seen and examined short of breath/ cough Last Vital Signs Temp Pulse Resp BP Pulse Ox 97.7 F 109 H 20 145/84 95 09/14/18 17:00 09/14/18 17:00 09/14/18 17:00 09/14/18 17:00 09/14/18 08:53 Cor: RSR, No murmurs, No gallops Lungs: Clear to P&A Abd: Soft, Normal bowel sounds, No organomegaly Ext:No significant edema Labs/meds reviewed A/P Metastatic lung ca on nivolumab LLL infiltrate On antibiotics/ steroids --clinically improved Continue antibiotics ? repeat Ct chest
[2018-09-14] MEDS ORDERED: ALPRAZolam 0.25 MG TABLET PO SCH (22:00)
[2018-09-15] MEDS ORDERED: DEXTROSE 5%-WATER - 50 ML IVPB ONE ×2 (01:19→09:46)
[2018-09-15] MEDS ORDERED: PIPERACILLIN/TAZOBACTAM 3.375 GM VIAL IVPB ONE ×2 (01:19→09:46)
[2018-09-15] MEDS: PIPERACILLIN/TAZOB 3.375 GM 3.375 GM in DEXTROSE 5%-WATER - 50 ML IVPB SCH ×3 (01:29→19:35)
[2018-09-15] MEDS: methylPREDNISolone NA SUCC 40 MG/1 ML VIAL IVPUSH SCH ×3 (02:04→15:10)
[2018-09-15] MEDS: ALBUTEROL SO4 2.5/IPRATROPIUM 0.5 INH SOL 3 ML VIAL.NEB. NEB PRN (04:00)
[2018-09-15] MEDS: ALBUTEROL SO4 2.5/IPRATROPIUM 0.5 INH SOL 3 ML VIAL.NEB. NEB SCH ×2 (07:25→11:25)
[2018-09-15 09:14] LABS: BLOOD UREA NITROGEN 26.8 mg/dL (7-18); CALCIUM 8.6 mg/dL (8.5-10.1); CREATININE 1.1 mg/dL (0.55-1.3)
[2018-09-15] MEDS ORDERED: PT OWN MED DRAWER 7, Y5N ONE ×2 (09:46→21:19)
[2018-09-15] MEDS: HEPARIN NA (PORCINE) 5,000 UNITS/ML 1ML VIAL SQ SCH ×2 (09:50→21:20)
[2018-09-15] MEDS: guaiFENesin 600 MG TABLET.ER (FP) PO SCH (09:51)
[2018-09-15] MEDS: amLODIPine BESYLATE 5 MG TABLET (FP) PO SCH (09:51)
[2018-09-15] MEDS: ATOVAQUONE 750 MG/5 ML (UNIT-DOSE PACKAGING) PO SCH (09:51)
[2018-09-15] MEDS: PANTOPRAZOLE 40 MG TABLET (FP) PO SCH (09:51)
[2018-09-15] MEDS: LEFLUNOMIDE 10 MG TABLET PO SCH (09:51)
--- NOTE | 2018-09-15 15:18 | PN ---
Progress Note (short form) - Note Progress Note: PULMONARY Still with dyspnea with minimal exertion, +nonproductive cough and wheezing. Vital Signs Period Temp Pulse Resp BP Sys/Medeiros Pulse Ox Last 24 Hr 97.7 F-97.8 F 105-112 20-20 140-147/84-97 98-98 Gen: mildly tachypneic with speaking Heart: RRR Lung: scattered wheezes Abd: soft, nontender Ext: no edema CBC, BMP 09/14/18 13:25 09/15/18 06:30 Active Medications Acetaminophen (Tylenol -) 650 mg PO Q4H PRN PRN Reason: FEVER Albuterol/Ipratropium (Duoneb -) 1 amp NEB RQID [facility] Last Admin: 09/15/18 11:25 Dose: Not Given Albuterol/Ipratropium (Duoneb -) 1 amp NEB Q4H PRN PRN Reason: SHORTNESS OF BREATH Last Admin: 09/15/18 04:00 Dose: 1 amp Alprazolam (Xanax -) 0.25 mg PO HS [facility] Last Admin: 09/14/18 21:56 Dose: 0.25 mg Amlodipine Besylate (Norvasc -) 5 mg PO DAILY [facility] Last Admin: 09/15/18 09:51 Dose: 5 mg Atovaquone (Mepron -) 1,500 mg PO DAILY@0800 [facility] Last Admin: 09/15/18 09:51 Dose: 1,500 mg Guaifenesin (Mucinex -) 600 mg PO BID [facility] Last Admin: 09/15/18 09:51 Dose: 600 mg Heparin Sodium (Porcine) (Heparin -) 5,000 unit SQ BID [facility] Last Admin: 09/15/18 09:50 Dose: 5,000 unit Piperacillin Sod/Tazobactam (Sod 3.375 gm/ Dextrose) 50 mls @ 100 mls/hr IVPB Q8H-IV [facility]; Protocol Last Admin: 09/15/18 09:50 Dose: 100 mls/hr Leflunomide (Arava -) 20 mg PO DAILY [facility] Last Admin: 09/15/18 09:51 Dose: 20 mg Methylprednisolone Sodium Succinate (Solu-Medrol -) 40 mg IVPUSH Q6H-IV [facility] Last Admin: 09/15/18 15:10 Dose: 40 mg Pantoprazole Sodium (Protonix -) 40 mg PO DAILY [facility] Last Admin: 09/15/18 09:51 Dose: 40 mg Sulfasalazine (Azulfidine En-Tabs -) 1,000 mg PO BID [facility] Last Admin: 09/15/18 09:51 Dose: 1,000 mg Tramadol HCl (Ultram -) 50 mg PO Q8H PRN PRN Reason: PAIN LEVEL 1-5 Zolpidem Tartrate (Ambien -) 5 mg PO HS PRN PRN Reason: INSOMNIA Last Admin: 09/14/18 21:56 Dose: 5 mg A/P Acute on Chronic Hypoxic Respiratory Failure r/o Pneumonia Sepsis Metastatic NSCLC (Squamous Cell) Acute COPD EXacerbation +Troponins likely Demand Ischemia Acute Kidney Injury Lactic Acidosis RA - continue antibiotics - f/u cultures - monitor urine output, creatinine - continue medrol - inhaled bronchodilators - cough suppressant - O2 to keep SpO2 >90% - DVT prophylaxis
[2018-09-15] MEDS: ALBUTEROL SO4 0.083% IH SOL 2.5 MG/3 ML VIAL.NEB. NEB SCH ×2 (15:35→21:00)
[2018-09-15] MEDS ORDERED: amLODIPine BESYLATE 5 MG TABLET (FP) PO ONE ×2 (15:41→15:50)
[2018-09-15] MEDS ORDERED: amLODIPine BESYLATE 5 MG TABLET (FP) PO SCH (15:43)
[2018-09-15] MEDS: ACETYLCYSTEINE 20% 200MG/ML 30 ML VIAL *FOR ORAL / INH USE ONLY NEB SCH ×2 (15:45→21:00)
--- NOTE | 2018-09-15 17:22 | PN ---
Progress Note, Physician Chief Complaint: Chest pain History of Present Illness: NAD Breathing and chest pain improved Afebrile now - Current Medication List Current Medications: Active Medications Acetaminophen (Tylenol -) 650 mg PO Q4H PRN PRN Reason: FEVER Acetylcysteine (Mucomyst 20 Oral / Inh Use Only*) 200 mg NEB RQID [facility] Last Admin: 09/15/18 15:45 Dose: Not Given Albuterol Sulfate (Ventolin 0.083% Nebulizer Soln -) 1 amp NEB RQID [facility] Last Admin: 09/15/18 15:35 Dose: Not Given Alprazolam (Xanax -) 0.25 mg PO HS [facility] Last Admin: 09/14/18 21:56 Dose: 0.25 mg Amlodipine Besylate (Norvasc -) 10 mg PO DAILY [facility] Atovaquone (Mepron -) 1,500 mg PO DAILY@0800 [facility] Last Admin: 09/15/18 09:51 Dose: 1,500 mg Guaifenesin (Mucinex -) 600 mg PO BID [facility] Last Admin: 09/15/18 09:51 Dose: 600 mg Guaifenesin/Codeine Phosphate (Robitussin Ac -) 10 ml PO HS [facility] Heparin Sodium (Porcine) (Heparin -) 5,000 unit SQ BID [facility] Last Admin: 09/15/18 09:50 Dose: 5,000 unit Piperacillin Sod/Tazobactam (Sod 3.375 gm/ Dextrose) 50 mls @ 100 mls/hr IVPB Q8H-IV [facility]; Protocol Last Admin: 09/15/18 09:50 Dose: 100 mls/hr Leflunomide (Arava -) 20 mg PO DAILY [facility] Last Admin: 09/15/18 09:51 Dose: 20 mg Methylprednisolone Sodium Succinate (Solu-Medrol -) 40 mg IVPUSH Q6H-IV [facility] Last Admin: 09/15/18 15:10 Dose: 40 mg Pantoprazole Sodium (Protonix -) 40 mg PO DAILY [facility] Last Admin: 09/15/18 09:51 Dose: 40 mg Sulfasalazine (Azulfidine En-Tabs -) 1,000 mg PO BID [facility] Last Admin: 09/15/18 09:51 Dose: 1,000 mg Tramadol HCl (Ultram -) 50 mg PO Q8H PRN PRN Reason: PAIN LEVEL 1-5 Zolpidem Tartrate (Ambien -) 5 mg PO HS PRN PRN Reason: INSOMNIA Last Admin: 09/14/18 21:56 Dose: 5 mg - Objective Vital Signs: Vital Signs Temperature 97.5 F L 09/15/18 14:45 Pulse Rate 106 H 09/15/18 15:48 Respiratory Rate 24 H 09/15/18 14:45 Blood Pressure 173/113 H 09/15/18 15:48 O2 Sat by Pulse Oximetry (%) 98 09/15/18 09:00 Constitutional: Yes: Well Nourished, No Distress, Calm Cardiovascular: Yes: Regular Rate and Rhythm Respiratory: Yes: Regular Gastrointestinal: Yes: WNL Genitourinary: Yes: WNL Musculoskeletal: Yes: WNL Extremities: Yes: WNL Edema: No Peripheral Pulses WNL: Yes Neurological: Yes: Alert, Oriented Psychiatric: Yes: Alert, Oriented Labs: CBC, BMP 09/14/18 13:25 09/15/18 06:30 INR, PTT INR 1.07 (0.83-1.09) 09/11/18 18:00 Problem List - Problems (1) Chest pain Assessment/Plan: -resolved -Cardiology consult -Tele monitor -Elevated trops x 3, mild up trend and now down -EKG no changes Code(s): R07.9 - CHEST PAIN, UNSPECIFIED (2) Pneumonia Assessment/Plan: -CXR reviewed -Pulmonary consult -Nasal O2 -ID consult -IV Zosyn -IV medrol tapering dose -bronchodilators Code(s): J18.9 - PNEUMONIA, UNSPECIFIED ORGANISM (3) Sepsis Assessment/Plan: -afebrile now -Lactic acid normalized -ID consult -Cultures: Microbiology 09/11/18 19:53 Blood - Peripheral Venous Blood Culture - Preliminary NO GROWTH OBTAINED AFTER 72 HOURS, INCUBATION TO CONTINUE FOR 2 DAYS. 09/11/18 19:55 Blood - Peripheral Venous Blood Culture - Preliminary NO GROWTH OBTAINED AFTER 72 HOURS, INCUBATION TO CONTINUE FOR 2 DAYS. 09/12/18 18:07 Urine For Antigen Detection Legionella Antigen - Final 09/12/18 18:07 Urine For Antigen Detection Streptococcus pneumoniae Antigen (M - Final 09/11/18 19:55 Urine - Urine - Catheterized Urine Culture - Final NO GROWTH OBTAINED -IV abx -IV medrol Code(s): A41.9 - SEPSIS, UNSPECIFIED ORGANISM (4) Lactic acid acidosis Code(s): E87.2 - ACIDOSIS (5) Stage 4 lung cancer Assessment/Plan: -heme/oncology consult Code(s): C34.90 - MALIGNANT NEOPLASM OF UNSP PART OF UNSP BRONCHUS OR LUNG (6) THIAGO (acute kidney injury) Assessment/Plan: -Monitor trend -nephrology consult Code(s): N17.9 - ACUTE KIDNEY FAILURE, UNSPECIFIED Assessment/Plan see problem list DVT prophylaxis Physical therapy-did well
[2018-09-15] MEDS ORDERED: guaiFENesin/D-M SUGAR-FREE/ACLHOL-FREE 118 ML BOTTLE PO PRN (19:07)
[2018-09-15] MEDS: guaiFENesin 200 MG/10 ML 10 ML UNIT-DOSE CUPS PO PRN (21:22)
[2018-09-15] MEDS ORDERED: guaiFENesin/CODEINE 5 ML UNIT-DOSE CUPS PO SCH (22:00)
[2018-09-16] MEDS ORDERED: DEXTROSE 5%-WATER - 50 ML IVPB ONE ×3 (00:01→21:36)
[2018-09-16] MEDS ORDERED: PIPERACILLIN/TAZOBACTAM 3.375 GM VIAL IVPB ONE ×3 (00:01→21:36)
[2018-09-16] MEDS: ZOLPIDEM TARTRATE 5 MG TABLET PO PRN (00:04)
[2018-09-16] MEDS: methylPREDNISolone NA SUCC 40 MG/1 ML VIAL IVPUSH SCH ×5 (00:04→18:38)
[2018-09-16] MEDS: ALPRAZolam 0.25 MG TABLET PO SCH (00:04)
[2018-09-16] MEDS: PIPERACILLIN/TAZOB 3.375 GM 3.375 GM in DEXTROSE 5%-WATER - 50 ML IVPB SCH ×3 (03:30→21:39)
[2018-09-16] MEDS: guaiFENesin 200 MG/10 ML 10 ML UNIT-DOSE CUPS PO PRN ×2 (06:57→18:25)
[2018-09-16] MEDS: ALBUTEROL SO4 0.083% IH SOL 2.5 MG/3 ML VIAL.NEB. NEB SCH ×4 (07:00→20:02)
[2018-09-16] MEDS: ACETYLCYSTEINE 20% 200MG/ML 30 ML VIAL *FOR ORAL / INH USE ONLY NEB SCH ×4 (07:00→20:02)
[2018-09-16] MEDS ORDERED: PT OWN MED DRAWER 7, Y5N ONE ×2 (09:08→21:41)
[2018-09-16] MEDS: PANTOPRAZOLE 40 MG TABLET (FP) PO SCH (09:32)
[2018-09-16] MEDS: LOSARTAN POTASSIUM 50 MG TABLET (FP) PO SCH (09:32)
[2018-09-16] MEDS: amLODIPine BESYLATE 10 MG TABLET (FP) PO SCH (09:32)
[2018-09-16] MEDS: ATOVAQUONE 750 MG/5 ML (UNIT-DOSE PACKAGING) PO SCH (09:35)
[2018-09-16] MEDS: LEFLUNOMIDE 10 MG TABLET PO SCH (09:36)
[2018-09-16] MEDS: HEPARIN NA (PORCINE) 5,000 UNITS/ML 1ML VIAL SQ SCH ×2 (09:43→21:45)
--- NOTE | 2018-09-16 11:41 | PN ---
Progress Note, Physician Chief Complaint: Chest pain History of Present Illness: NAD Breathing and chest pain improved Afebrile - Current Medication List Current Medications: Active Medications Acetaminophen (Tylenol -) 650 mg PO Q4H PRN PRN Reason: FEVER Acetylcysteine (Mucomyst 20 Oral / Inh Use Only*) 200 mg NEB RQID [facility] Last Admin: 09/16/18 07:00 Dose: 200 mg Albuterol Sulfate (Ventolin 0.083% Nebulizer Soln -) 1 amp NEB RQID [facility] Last Admin: 09/16/18 07:00 Dose: 1 amp Alprazolam (Xanax -) 0.25 mg PO HS [facility] Last Admin: 09/16/18 00:04 Dose: 0.25 mg Amlodipine Besylate (Norvasc -) 10 mg PO DAILY [facility] Last Admin: 09/16/18 09:32 Dose: 10 mg Atovaquone (Mepron -) 1,500 mg PO DAILY@0800 [facility] Last Admin: 09/16/18 09:35 Dose: 1,500 mg Guaifenesin (Robitussin -) 10 ml PO Q6H PRN PRN Reason: COUGH Last Admin: 09/16/18 06:57 Dose: 10 ml Heparin Sodium (Porcine) (Heparin -) 5,000 unit SQ BID [facility] Last Admin: 09/16/18 09:43 Dose: Not Given Piperacillin Sod/Tazobactam (Sod 3.375 gm/ Dextrose) 50 mls @ 100 mls/hr IVPB Q8H-IV [facility]; Protocol Last Admin: 09/16/18 09:37 Dose: 100 mls/hr Leflunomide (Arava -) 20 mg PO DAILY [facility] Last Admin: 09/16/18 09:36 Dose: 20 mg Losartan Potassium (Cozaar -) 50 mg PO DAILY [facility] Last Admin: 09/16/18 09:32 Dose: 50 mg Methylprednisolone Sodium Succinate (Solu-Medrol -) 40 mg IVPUSH Q8H-IV [facility] Last Admin: 09/16/18 10:13 Dose: 40 mg Pantoprazole Sodium (Protonix -) 40 mg PO DAILY [facility] Last Admin: 09/16/18 09:32 Dose: 40 mg Sulfasalazine (Azulfidine En-Tabs -) 1,000 mg PO BID [facility] Last Admin: 09/16/18 09:36 Dose: 1,000 mg Tramadol HCl (Ultram -) 50 mg PO Q8H PRN PRN Reason: PAIN LEVEL 1-5 Zolpidem Tartrate (Ambien -) 10 mg PO HS PRN PRN Reason: INSOMNIA Last Admin: 09/16/18 00:04 Dose: 10 mg - Objective Vital Signs: Vital Signs Temperature 98 F 09/16/18 08:47 Pulse Rate 114 H 09/16/18 08:47 Respiratory Rate 20 09/16/18 08:47 Blood Pressure 161/104 H 09/16/18 09:54 O2 Sat by Pulse Oximetry (%) 98 09/15/18 21:00 Constitutional: Yes: Well Nourished, No Distress, Calm Cardiovascular: Yes: Regular Rate and Rhythm Respiratory: Yes: Regular, On Nasal O2 Gastrointestinal: Yes: Normal Bowel Sounds, Soft, Abdomen, Obese Musculoskeletal: Yes: Muscle Weakness Extremities: Yes: WNL Edema: No Peripheral Pulses WNL: Yes Neurological: Yes: Alert, Oriented Psychiatric: Yes: Alert, Oriented Labs: CBC, BMP 09/14/18 13:25 09/15/18 06:30 INR, PTT INR 1.07 (0.83-1.09) 09/11/18 18:00 Problem List - Problems (1) Chest pain Assessment/Plan: -resolved -Cardiology consult -Tele monitor -Elevated trops x 3, mild up trend and now down -EKG no changes Code(s): R07.9 - CHEST PAIN, UNSPECIFIED (2) Pneumonia Assessment/Plan: -CXR reviewed -Pulmonary consult -Nasal O2 -ID consult -IV Zosyn -IV medrol tapering dose -bronchodilators Code(s): J18.9 - PNEUMONIA, UNSPECIFIED ORGANISM (3) Sepsis Assessment/Plan: -afebrile now -Lactic acid normalized -ID consult -Cultures: Microbiology 09/11/18 19:53 Blood - Peripheral Venous Blood Culture - Preliminary NO GROWTH OBTAINED AFTER 72 HOURS, INCUBATION TO CONTINUE FOR 2 DAYS. 09/11/18 19:55 Blood - Peripheral Venous Blood Culture - Preliminary NO GROWTH OBTAINED AFTER 72 HOURS, INCUBATION TO CONTINUE FOR 2 DAYS. 09/12/18 18:07 Urine For Antigen Detection Legionella Antigen - Final 09/12/18 18:07 Urine For Antigen Detection Streptococcus pneumoniae Antigen (M - Final 09/11/18 19:55 Urine - Urine - Catheterized Urine Culture - Final NO GROWTH OBTAINED -IV abx -IV medrol Code(s): A41.9 - SEPSIS, UNSPECIFIED ORGANISM (4) Lactic acid acidosis Code(s): E87.2 - ACIDOSIS (5) Stage 4 lung cancer Assessment/Plan: -heme/oncology consult Code(s): C34.90 - MALIGNANT NEOPLASM OF UNSP PART OF UNSP BRONCHUS OR LUNG (6) THIAGO (acute kidney injury) Assessment/Plan: -Monitor trend -nephrology consult Code(s): N17.9 - ACUTE KIDNEY FAILURE, UNSPECIFIED Assessment/Plan see problem list DVT prophylaxis Physical therapy-did well
--- NOTE | 2018-09-16 13:53 | PN ---
Progress Note (short form) - Note Progress Note: PULMONARY Breathing better today. +nonproductive cough and wheezing. Vital Signs Period Temp Pulse Resp BP Sys/Medeiros Pulse Ox Last 24 Hr 97.1 F-98.4 F 100-114 20-24 156-173/94-113 98 Gen: mildly tachypneic with speaking Heart: RRR Lung: scattered wheezes Abd: soft, nontender Ext: no edema CBC, BMP 09/14/18 13:25 09/15/18 06:30 Active Medications Acetaminophen (Tylenol -) 650 mg PO Q4H PRN PRN Reason: FEVER Acetylcysteine (Mucomyst 20 Oral / Inh Use Only*) 200 mg NEB RQID [facility] Last Admin: 09/16/18 07:00 Dose: 200 mg Albuterol Sulfate (Ventolin 0.083% Nebulizer Soln -) 1 amp NEB RQID [facility] Last Admin: 09/16/18 07:00 Dose: 1 amp Alprazolam (Xanax -) 0.25 mg PO HS [facility] Last Admin: 09/16/18 00:04 Dose: 0.25 mg Amlodipine Besylate (Norvasc -) 10 mg PO DAILY [facility] Last Admin: 09/16/18 09:32 Dose: 10 mg Atovaquone (Mepron -) 1,500 mg PO DAILY@0800 [facility] Last Admin: 09/16/18 09:35 Dose: 1,500 mg Guaifenesin (Robitussin -) 10 ml PO Q6H PRN PRN Reason: COUGH Last Admin: 09/16/18 06:57 Dose: 10 ml Heparin Sodium (Porcine) (Heparin -) 5,000 unit SQ BID [facility] Last Admin: 09/16/18 09:43 Dose: Not Given Piperacillin Sod/Tazobactam (Sod 3.375 gm/ Dextrose) 50 mls @ 100 mls/hr IVPB Q8H-IV [facility]; Protocol Last Admin: 09/16/18 09:37 Dose: 100 mls/hr Leflunomide (Arava -) 20 mg PO DAILY [facility] Last Admin: 09/16/18 09:36 Dose: 20 mg Losartan Potassium (Cozaar -) 50 mg PO DAILY [facility] Last Admin: 09/16/18 09:32 Dose: 50 mg Methylprednisolone Sodium Succinate (Solu-Medrol -) 40 mg IVPUSH Q8H-IV [facility] Last Admin: 09/16/18 10:13 Dose: 40 mg Pantoprazole Sodium (Protonix -) 40 mg PO DAILY [facility] Last Admin: 09/16/18 09:32 Dose: 40 mg Sulfasalazine (Azulfidine En-Tabs -) 1,000 mg PO BID [facility] Last Admin: 09/16/18 09:36 Dose: 1,000 mg Tramadol HCl (Ultram -) 50 mg PO Q8H PRN PRN Reason: PAIN LEVEL 1-5 Zolpidem Tartrate (Ambien -) 10 mg PO HS PRN PRN Reason: INSOMNIA Last Admin: 09/16/18 00:04 Dose: 10 mg A/P Acute on Chronic Hypoxic Respiratory Failure r/o Pneumonia Sepsis Metastatic NSCLC (Squamous Cell) Acute COPD EXacerbation +Troponins likely Demand Ischemia Acute Kidney Injury Lactic Acidosis RA - continue antibiotics - monitor urine output, creatinine - continue medrol - inhaled bronchodilators - cough suppressant - O2 to keep SpO2 >90% - DVT prophylaxis
--- NOTE | 2018-09-16 19:17 | PN ---
Progress Note, Physician History of Present Illness: Breathing is better though still significantly SOB when ambulating. +Cough - Current Medication List Current Medications: Active Medications Acetaminophen (Tylenol -) 650 mg PO Q4H PRN PRN Reason: FEVER Acetylcysteine (Mucomyst 20 Oral / Inh Use Only*) 200 mg NEB RQID [facility] Last Admin: 09/16/18 17:03 Dose: 200 mg Albuterol Sulfate (Ventolin 0.083% Nebulizer Soln -) 1 amp NEB RQID [facility] Last Admin: 09/16/18 17:04 Dose: 1 amp Alprazolam (Xanax -) 0.25 mg PO HS [facility] Last Admin: 09/16/18 00:04 Dose: 0.25 mg Amlodipine Besylate (Norvasc -) 10 mg PO DAILY [facility] Last Admin: 09/16/18 09:32 Dose: 10 mg Atovaquone (Mepron -) 1,500 mg PO DAILY@0800 [facility] Last Admin: 09/16/18 09:35 Dose: 1,500 mg Guaifenesin (Robitussin -) 10 ml PO Q6H PRN PRN Reason: COUGH Last Admin: 09/16/18 18:25 Dose: 10 ml Heparin Sodium (Porcine) (Heparin -) 5,000 unit SQ BID [facility] Last Admin: 09/16/18 09:43 Dose: Not Given Piperacillin Sod/Tazobactam (Sod 3.375 gm/ Dextrose) 50 mls @ 100 mls/hr IVPB Q8H-IV [facility]; Protocol Last Admin: 09/16/18 09:37 Dose: 100 mls/hr Leflunomide (Arava -) 20 mg PO DAILY [facility] Last Admin: 09/16/18 09:36 Dose: 20 mg Losartan Potassium (Cozaar -) 50 mg PO DAILY [facility] Last Admin: 09/16/18 09:32 Dose: 50 mg Methylprednisolone Sodium Succinate (Solu-Medrol -) 40 mg IVPUSH Q8H-IV [facility] Last Admin: 09/16/18 18:38 Dose: 40 mg Pantoprazole Sodium (Protonix -) 40 mg PO DAILY [facility] Last Admin: 09/16/18 09:32 Dose: 40 mg Sulfasalazine (Azulfidine En-Tabs -) 1,000 mg PO BID [facility] Last Admin: 09/16/18 09:36 Dose: 1,000 mg Tramadol HCl (Ultram -) 50 mg PO Q8H PRN PRN Reason: PAIN LEVEL 1-5 Zolpidem Tartrate (Ambien -) 10 mg PO HS PRN PRN Reason: INSOMNIA Last Admin: 09/16/18 00:04 Dose: 10 mg - Objective Vital Signs: Vital Signs Temperature 98.0 F 09/16/18 18:00 Pulse Rate 106 H 09/16/18 18:00 Respiratory Rate 22 H 09/16/18 18:00 Blood Pressure 169/103 H 09/16/18 18:00 O2 Sat by Pulse Oximetry (%) 98 09/16/18 09:00 Constitutional: Yes: No Distress Eyes: Yes: Conjunctiva Clear Cardiovascular: Yes: Regular Rate and Rhythm Respiratory: Yes: Regular, Wheezes. No: Accessory Muscle Use Gastrointestinal: Yes: Soft Edema: Yes Edema: LLE: 2+, RLE: 2+ Labs: CBC, BMP 09/14/18 13:25 09/15/18 06:30 INR, PTT INR 1.07 (0.83-1.09) 09/11/18 18:00 Assessment/Plan 73F with metastatic ca on nivolumab admitted with pneumonia. On abx. Remains afebrile. CT chest today with stable metastatic disease, small b/l pleural effusions (R>L). No clear consolidation. THIAGO resolved. Feeling better.
[2018-09-17] MEDS: ZOLPIDEM TARTRATE 5 MG TABLET PO PRN (00:03)
[2018-09-17] MEDS: ALPRAZolam 0.25 MG TABLET PO SCH (00:03)
[2018-09-17] MEDS ORDERED: PIPERACILLIN/TAZOBACTAM 3.375 GM VIAL IVPB ONE ×2 (04:13→09:17)
[2018-09-17] MEDS ORDERED: DEXTROSE 5%-WATER - 50 ML IVPB ONE ×2 (04:14→09:17)
[2018-09-17] MEDS: PIPERACILLIN/TAZOB 3.375 GM 3.375 GM in DEXTROSE 5%-WATER - 50 ML IVPB SCH ×2 (04:52→09:29)
[2018-09-17] MEDS: methylPREDNISolone NA SUCC 40 MG/1 ML VIAL IVPUSH SCH ×3 (05:00→17:40)
[2018-09-17] MEDS: guaiFENesin 200 MG/10 ML 10 ML UNIT-DOSE CUPS PO PRN (07:03)
[2018-09-17] MEDS: ACETYLCYSTEINE 20% 200MG/ML 30 ML VIAL *FOR ORAL / INH USE ONLY NEB SCH ×4 (07:30→20:22)
[2018-09-17] MEDS: ALBUTEROL SO4 0.083% IH SOL 2.5 MG/3 ML VIAL.NEB. NEB SCH ×4 (07:30→20:22)
[2018-09-17] MEDS ORDERED: PT OWN MED DRAWER 7, Y5N ONE ×3 (08:08→22:12)
[2018-09-17] MEDS: ATOVAQUONE 750 MG/5 ML (UNIT-DOSE PACKAGING) PO SCH (08:15)
[2018-09-17] MEDS: HEPARIN NA (PORCINE) 5,000 UNITS/ML 1ML VIAL SQ SCH ×2 (09:29→22:22)
[2018-09-17] MEDS: PANTOPRAZOLE 40 MG TABLET (FP) PO SCH (09:30)
[2018-09-17] MEDS: amLODIPine BESYLATE 10 MG TABLET (FP) PO SCH (09:30)
[2018-09-17] MEDS: LOSARTAN POTASSIUM 50 MG TABLET (FP) PO SCH (09:30)
[2018-09-17] MEDS: LEFLUNOMIDE 10 MG TABLET PO SCH (09:35)
[2018-09-17] MEDS ORDERED: ONDANSETRON 4 MG/2 ML VIAL IVPB PRN (11:52)
--- NOTE | 2018-09-17 12:37 | PN ---
Progress Note (short form) - Note Progress Note: Still with dyspnea with minimal exertion. Does not want IV steroids. Nonproductive cough and wheezing. Intake & Output 09/11/18 09/12/18 09/13/18 09/14/18 23:59 23:59 23:59 23:59 Intake Total 2225 1300 465 Balance 2225 1300 465 Weight 196 lb 198 lb 12.8 oz Last Vital Signs Temp Pulse Resp BP Pulse Ox 98 F 101 H 18 148/102 H 95 09/14/18 05:00 09/14/18 08:54 09/14/18 08:54 09/14/18 08:54 09/14/18 08:53 Active Medications Acetaminophen (Tylenol -) 650 mg PO Q4H PRN PRN Reason: FEVER Albuterol/Ipratropium (Duoneb -) 1 amp NEB RQID [facility] Last Admin: 09/14/18 11:25 Dose: 1 amp Albuterol/Ipratropium (Duoneb -) 1 amp NEB Q4H PRN PRN Reason: SHORTNESS OF BREATH Last Admin: 09/12/18 23:03 Dose: 1 amp Alprazolam (Xanax -) 0.25 mg PO DAILY [facility] Last Admin: 09/14/18 10:16 Dose: Not Given Amlodipine Besylate (Norvasc -) 5 mg PO DAILY [facility] Last Admin: 09/14/18 10:13 Dose: 5 mg Atovaquone (Mepron -) 1,500 mg PO DAILY@0800 [facility] Last Admin: 09/14/18 10:12 Dose: 1,500 mg Guaifenesin (Mucinex -) 600 mg PO BID [facility] Last Admin: 09/14/18 10:13 Dose: 600 mg Heparin Sodium (Porcine) (Heparin -) 5,000 unit SQ BID [facility] Last Admin: 09/14/18 10:14 Dose: Not Given Sodium Chloride (1/2 Normal Saline) 1,000 mls @ 75 mls/hr IV ASDIR [facility] Last Admin: 09/14/18 00:45 Dose: Not Given Piperacillin Sod/Tazobactam (Sod 3.375 gm/ Dextrose) 50 mls @ 100 mls/hr IVPB Q8H-IV [facility]; Protocol Last Admin: 09/14/18 11:25 Dose: 100 mls/hr Leflunomide (Arava -) 20 mg PO DAILY [facility] Last Admin: 09/14/18 10:10 Dose: 20 mg Methylprednisolone Sodium Succinate (Solu-Medrol -) 40 mg IVPUSH Q6H-IV [facility] Last Admin: 09/14/18 11:28 Dose: 40 mg Pantoprazole Sodium (Protonix -) 40 mg PO DAILY [facility] Last Admin: 09/14/18 10:13 Dose: 40 mg Sulfasalazine (Azulfidine En-Tabs -) 1,000 mg PO BID [facility] Last Admin: 09/14/18 10:12 Dose: 1,000 mg Tramadol HCl (Ultram -) 50 mg PO Q8H PRN PRN Reason: PAIN LEVEL 1-5 Zolpidem Tartrate (Ambien -) 5 mg PO HS [facility] Last Admin: 09/13/18 22:00 Dose: Not Given Gen: mildly tachypneic with speaking Heart: RRR Lung: bilateral expiratory wheezes Abd: soft, nontender Ext: no edema Laboratory Results - last 24 hr 09/14/18 13:25 WBC 14.5 H RBC 3.47 L Hgb 10.2 L Hct 30.9 L MCV 88.9 MCH 29.3 MCHC 32.9 RDW 17.8 H Plt Count 267 MPV 7.6 Absolute Neuts (auto) 13.3 H Neutrophils % 91.8 H Lymphocytes % 3.2 L D Monocytes % 5.0 Eosinophils % 0.0 D Basophils % 0.0 Nucleated RBC % 0 A/P Acute on Chronic Hypoxic Respiratory Failure r/o Pneumonia Sepsis Metastatic NSCLC (Squamous Cell) Acute COPD EXacerbation +Troponins likely Demand Ischemia Acute Kidney Injury Lactic Acidosis RA - continue antibiotics - f/u cultures - IVF - monitor urine output, creatinine - continue medrol - inhaled bronchodilators - O2 to keep SpO2 >90% - DVT prophylaxis
--- NOTE | 2018-09-17 14:16 | PN ---
Progress Note, Physician Chief Complaint: patient seen and examined on iv steroids complaining of elevated BP and inc leg swelling - Current Medication List Current Medications: Active Medications Acetaminophen (Tylenol -) 650 mg PO Q4H PRN PRN Reason: FEVER Acetylcysteine (Mucomyst 20 Oral / Inh Use Only*) 200 mg NEB RQID [facility] Last Admin: 09/17/18 11:49 Dose: Not Given Albuterol Sulfate (Ventolin 0.083% Nebulizer Soln -) 1 amp NEB RQID [facility] Last Admin: 09/17/18 11:49 Dose: Not Given Alprazolam (Xanax -) 0.25 mg PO HS [facility] Last Admin: 09/17/18 00:03 Dose: 0.25 mg Amlodipine Besylate (Norvasc -) 10 mg PO DAILY [facility] Last Admin: 09/17/18 09:30 Dose: 10 mg Atovaquone (Mepron -) 1,500 mg PO DAILY@0800 [facility] Last Admin: 09/17/18 08:15 Dose: 1,500 mg Guaifenesin (Robitussin -) 10 ml PO Q6H PRN PRN Reason: COUGH Last Admin: 09/17/18 07:03 Dose: 10 ml Heparin Sodium (Porcine) (Heparin -) 5,000 unit SQ BID [facility] Last Admin: 09/17/18 09:29 Dose: 5,000 unit Piperacillin Sod/Tazobactam (Sod 3.375 gm/ Dextrose) 50 mls @ 100 mls/hr IVPB Q8H-IV [facility]; Protocol Last Admin: 09/17/18 09:29 Dose: 100 mls/hr Leflunomide (Arava -) 20 mg PO DAILY [facility] Last Admin: 09/17/18 09:35 Dose: 20 mg Losartan Potassium (Cozaar -) 50 mg PO DAILY [facility] Last Admin: 09/17/18 09:30 Dose: 50 mg Methylprednisolone Sodium Succinate (Solu-Medrol -) 40 mg IVPUSH Q8H-IV [facility] Last Admin: 09/17/18 09:30 Dose: 40 mg Ondansetron HCl (Zofran Injection) 8 mg IVPB Q12H PRN PRN Reason: NAUSEA AND/OR VOMITING Last Admin: 09/17/18 11:56 Dose: 8 mg Pantoprazole Sodium (Protonix -) 40 mg PO DAILY [facility] Last Admin: 09/17/18 09:30 Dose: 40 mg Sulfasalazine (Azulfidine En-Tabs -) 1,000 mg PO BID [facility] Last Admin: 09/17/18 09:35 Dose: 1,000 mg Tramadol HCl (Ultram -) 50 mg PO Q8H PRN PRN Reason: PAIN LEVEL 1-5 Zolpidem Tartrate (Ambien -) 10 mg PO HS PRN PRN Reason: INSOMNIA Last Admin: 09/17/18 00:03 Dose: 10 mg - Objective Vital Signs: Vital Signs Temperature 97.5 F L 09/17/18 10:00 Pulse Rate 105 H 09/17/18 10:00 Respiratory Rate 20 09/17/18 10:00 Blood Pressure 150/80 09/17/18 10:00 O2 Sat by Pulse Oximetry (%) 94 L 09/17/18 09:00 Constitutional: Yes: Calm Cardiovascular: Yes: Regular Rate and Rhythm, S1, S2 Respiratory: Yes: On Nasal O2, Rhonchi, Wheezes Gastrointestinal: Yes: Normal Bowel Sounds, Soft Edema: Yes Neurological: Yes: Alert, Oriented Labs: CBC, BMP 09/14/18 13:25 09/15/18 06:30 INR, PTT INR 1.07 (0.83-1.09) 09/11/18 18:00 Problem List - Problems (1) Acute on chronic respiratory failure with hypoxemia Assessment/Plan: iv medrol every 8 hrs oxygen pulm on board Code(s): J96.21 - ACUTE AND CHRONIC RESPIRATORY FAILURE WITH HYPOXIA (2) Pneumonia Assessment/Plan: iv abx- zosyn Code(s): J18.9 - PNEUMONIA, UNSPECIFIED ORGANISM (3) THIAGO (acute kidney injury) Assessment/Plan: ivf fluids stop today creatinine improved Code(s): N17.9 - ACUTE KIDNEY FAILURE, UNSPECIFIED (4) Elevated troponin Assessment/Plan: secondary to demand ischemia echo Code(s): R74.8 - ABNORMAL LEVELS OF OTHER SERUM ENZYMES (5) Leg edema Assessment/Plan: lasix restarted Code(s): R60.0 - LOCALIZED EDEMA
[2018-09-17] MEDS: FUROSEMIDE 20 MG TABLET (FP) PO SCH (14:48)
--- NOTE | 2018-09-17 16:15 | PN ---
Progress Note (short form) - Note Progress Note: improved had a neb not wheezing now feels better with lasix Vital Signs Period Temp Pulse Resp BP Sys/Medeiros Pulse Ox Last 24 Hr 97.5 F-98.4 F 95-106 20-22 117-169/70-103 94-97 cor-rrr lungs few scattered rhonchi abd soft,nt ext trace edema CBC, BMP 09/14/18 13:25 09/15/18 06:30 Microbiology 09/11/18 19:53 Blood - Peripheral Venous Blood Culture - Final NO GROWTH AFTER 5 DAYS INCUBATION 09/11/18 19:55 Blood - Peripheral Venous Blood Culture - Final NO GROWTH AFTER 5 DAYS INCUBATION 09/12/18 18:07 Urine For Antigen Detection Legionella Antigen - Final 09/12/18 18:07 Urine For Antigen Detection Streptococcus pneumoniae Antigen (M - Final 09/11/18 19:55 Urine - Urine - Catheterized Urine Culture - Final NO GROWTH OBTAINED chest ct-effusions, lung masses, no infiltrate a/p day #5 zosyn- will d/c antiiboitics suspect leukocytosis is due to steroids lung cancer on immunothrapy history of RA Problem List - Problems (1) Fever Code(s): R50.9 - FEVER, UNSPECIFIED (2) Pneumonia Code(s): J18.9 - PNEUMONIA, UNSPECIFIED ORGANISM (3) Lung cancer Code(s): C34.90 - MALIGNANT NEOPLASM OF UNSP PART OF UNSP BRONCHUS OR LUNG Qualifiers: Laterality: unspecified laterality Lung location: unspecified part of lung Qualified Code(s): C34.90 - Malignant neoplasm of unspecified part of unspecified bronchus or lung (4) THIAGO (acute kidney injury) Code(s): N17.9 - ACUTE KIDNEY FAILURE, UNSPECIFIED
--- NOTE | 2018-09-17 22:21 | PN ---
Progress Note (short form) - Note Progress Note: Patient seen and examined short of breath/ cough Last Vital Signs Temp Pulse Resp BP Pulse Ox 97.7 F 109 H 20 145/84 95 09/14/18 17:00 09/14/18 17:00 09/14/18 17:00 09/14/18 17:00 09/14/18 08:53 Cor: RSR, No murmurs, No gallops Lungs: Clear to P&A Abd: Soft, Normal bowel sounds, No organomegaly Ext:No significant edema Labs/meds reviewed A/P Metastatic lung ca on nivolumab LLL infiltrate On antibiotics/ steroids --clinically improved repeat Ct chest--stable disease transfer to continue nivolumab post d/c physical therapy consult
[2018-09-18] MEDS: ZOLPIDEM TARTRATE 5 MG TABLET PO PRN ×2 (00:25→22:52)
[2018-09-18] MEDS: ALPRAZolam 0.25 MG TABLET PO SCH ×2 (00:25→21:49)
[2018-09-18] MEDS: methylPREDNISolone NA SUCC 40 MG/1 ML VIAL IVPUSH SCH ×2 (04:38→21:49)
[2018-09-18] MEDS: ALBUTEROL SO4 0.083% IH SOL 2.5 MG/3 ML VIAL.NEB. NEB SCH ×3 (07:45→20:58)
[2018-09-18] MEDS: ACETYLCYSTEINE 20% 200MG/ML 30 ML VIAL *FOR ORAL / INH USE ONLY NEB SCH (07:45)
[2018-09-18 09:17] LABS: HEMATOCRIT 30.1 % (32.4-45.2); HEMOGLOBIN 9.9 GM/dL (10.7-15.3); MCH 29.4 pg (25.7-33.7); MEAN PLT VOLUME 7.4 fl (7.5-11.1); PLATELET COUNT 199 K/MM3 (134-434); RBC 3.38 M/mm3 (3.60-5.2); RDW 17.5 % (11.6-15.6); WHITE BLOOD COUNT 8.6 K/mm3 (4.0-10.0)
[2018-09-18] MEDS: ATOVAQUONE 750 MG/5 ML (UNIT-DOSE PACKAGING) PO SCH (09:18)
[2018-09-18] MEDS: LEFLUNOMIDE 10 MG TABLET PO SCH (09:19)
[2018-09-18] MEDS ORDERED: ACETYLCYSTEINE 20% 200MG/ML 4 ML VIAL *FOR ORAL / INH USE ONLY NEB SCH (09:30)
[2018-09-18] MEDS ORDERED: methylPREDNISolone NA SUCC 40 MG/1 ML VIAL IVPUSH SCH (10:00)
[2018-09-18 10:04] LABS: ALBUMIN 2.8 g/dl (3.4-5.0); BILIRUBIN,TOTAL 0.6 mg/dL (0.2-1); BLOOD UREA NITROGEN 27.3 mg/dL (7-18); CREATININE 1.3 mg/dL (0.55-1.3); POTASSIUM 4.3 mmol/L (3.5-5.1); TOT PROT 5.9 g/dl (6.4-8.2)
[2018-09-18] MEDS: PANTOPRAZOLE 40 MG TABLET (FP) PO SCH (10:08)
[2018-09-18] MEDS: amLODIPine BESYLATE 10 MG TABLET (FP) PO SCH (10:08)
[2018-09-18] MEDS: HEPARIN NA (PORCINE) 5,000 UNITS/ML 1ML VIAL SQ SCH ×2 (10:08→21:49)
[2018-09-18] MEDS: LOSARTAN POTASSIUM 50 MG TABLET (FP) PO SCH (10:08)
[2018-09-18] MEDS: FUROSEMIDE 20 MG TABLET (FP) PO SCH (10:08)
--- NOTE | 2018-09-18 11:24 | PN ---
Progress Note, Physician Chief Complaint: Chest pain History of Present Illness: NAD Breathing and chest pain improved Afebrile - Current Medication List Current Medications: Active Medications Acetaminophen (Tylenol -) 650 mg PO Q4H PRN PRN Reason: FEVER Acetylcysteine (Mucomyst 20 Oral / Inh Use Only*) 200 mg NEB RQID [facility] Albuterol Sulfate (Ventolin 0.083% Nebulizer Soln -) 1 amp NEB RQID [facility] Last Admin: 09/18/18 07:45 Dose: 1 amp Alprazolam (Xanax -) 0.25 mg PO HS [facility] Last Admin: 09/18/18 00:25 Dose: 0.25 mg Amlodipine Besylate (Norvasc -) 10 mg PO DAILY [facility] Last Admin: 09/18/18 10:08 Dose: 10 mg Atovaquone (Mepron -) 1,500 mg PO DAILY@0800 [facility] Last Admin: 09/18/18 09:18 Dose: 1,500 mg Furosemide (Lasix -) 20 mg PO DAILY [facility] Last Admin: 09/18/18 10:08 Dose: 20 mg Guaifenesin (Robitussin -) 10 ml PO Q6H PRN PRN Reason: COUGH Last Admin: 09/17/18 07:03 Dose: 10 ml Heparin Sodium (Porcine) (Heparin -) 5,000 unit SQ BID [facility] Last Admin: 09/18/18 10:08 Dose: 5,000 unit Leflunomide (Arava -) 20 mg PO DAILY [facility] Last Admin: 09/18/18 09:19 Dose: 20 mg Losartan Potassium (Cozaar -) 50 mg PO DAILY [facility] Last Admin: 09/18/18 10:08 Dose: 50 mg Methylprednisolone Sodium Succinate (Solu-Medrol -) 40 mg IVPUSH BID [facility] Last Admin: 09/18/18 10:08 Dose: 40 mg Ondansetron HCl (Zofran Injection) 8 mg IVPB Q12H PRN PRN Reason: NAUSEA AND/OR VOMITING Last Admin: 09/17/18 11:56 Dose: 8 mg Pantoprazole Sodium (Protonix -) 40 mg PO DAILY [facility] Last Admin: 09/18/18 10:08 Dose: 40 mg Sulfasalazine (Azulfidine En-Tabs -) 1,000 mg PO BID [facility] Last Admin: 09/18/18 09:19 Dose: 1,000 mg Zolpidem Tartrate (Ambien -) 10 mg PO HS PRN PRN Reason: INSOMNIA Last Admin: 09/18/18 00:25 Dose: 10 mg - Objective Vital Signs: Vital Signs Temperature 98.1 F 09/18/18 03:00 Pulse Rate 108 H 09/18/18 03:00 Respiratory Rate 20 09/18/18 03:00 Blood Pressure 156/90 09/18/18 03:00 O2 Sat by Pulse Oximetry (%) 96 09/18/18 09:00 Constitutional: Yes: Well Nourished, No Distress, Calm Cardiovascular: Yes: Regular Rate and Rhythm Respiratory: Yes: Regular, On Nasal O2, SOB on Exertion Gastrointestinal: Yes: Normal Bowel Sounds, Soft, Abdomen, Obese Genitourinary: Yes: WNL Musculoskeletal: Yes: WNL Extremities: Yes: WNL Edema: No Peripheral Pulses WNL: Yes Neurological: Yes: Alert, Oriented Psychiatric: Yes: Alert, Oriented Labs: CBC, BMP 09/18/18 08:15 09/18/18 08:15 INR, PTT INR 1.07 (0.83-1.09) 09/11/18 18:00 Problem List - Problems (1) Chest pain Assessment/Plan: -resolved -Cardiology consult -d/c tele -Elevated trops x 3, mild up trend and now down -EKG no changes Code(s): R07.9 - CHEST PAIN, UNSPECIFIED (2) Pneumonia Assessment/Plan: -CXR reviewed -Pulmonary consult -Nasal O2 -ID consult -IV Zosyn -IV medrol tapering dose -bronchodilators Code(s): J18.9 - PNEUMONIA, UNSPECIFIED ORGANISM (3) Sepsis Assessment/Plan: -afebrile now -Lactic acid normalized -ID consult -Cultures: Microbiology 09/11/18 19:53 Blood - Peripheral Venous Blood Culture - Preliminary NO GROWTH OBTAINED AFTER 72 HOURS, INCUBATION TO CONTINUE FOR 2 DAYS. 09/11/18 19:55 Blood - Peripheral Venous Blood Culture - Preliminary NO GROWTH OBTAINED AFTER 72 HOURS, INCUBATION TO CONTINUE FOR 2 DAYS. 09/12/18 18:07 Urine For Antigen Detection Legionella Antigen - Final 09/12/18 18:07 Urine For Antigen Detection Streptococcus pneumoniae Antigen (M - Final 09/11/18 19:55 Urine - Urine - Catheterized Urine Culture - Final NO GROWTH OBTAINED -IV abx -IV medrol Code(s): A41.9 - SEPSIS, UNSPECIFIED ORGANISM (4) Lactic acid acidosis Code(s): E87.2 - ACIDOSIS (5) Stage 4 lung cancer Assessment/Plan: -heme/oncology consult Code(s): C34.90 - MALIGNANT NEOPLASM OF UNSP PART OF UNSP BRONCHUS OR LUNG (6) THIAGO (acute kidney injury) Assessment/Plan: -Monitor trend -nephrology consult Code(s): N17.9 - ACUTE KIDNEY FAILURE, UNSPECIFIED Assessment/Plan see problem list DVT prophylaxis Physical therapy-did well
[2018-09-18] MEDS ORDERED: ACETAMINOPHEN 325 MG TABLET (FP) PO PRN (14:17)
[2018-09-18] MEDS ORDERED: guaiFENesin 200 MG/10 ML 10 ML UNIT-DOSE CUPS PO PRN (14:17)
[2018-09-18 14:51] VITALS: BMI 31.9
[2018-09-18] MEDS: ACETYLCYSTEINE 20% 200MG/ML 4 ML VIAL *FOR ORAL / INH USE ONLY NEB SCH ×2 (16:54→20:59)
--- NOTE | 2018-09-18 18:04 | PN ---
Progress Note (short form) - Note Progress Note: Patient seen and examined Imprved Still with difficulty bringing up secretions. Less dyspneic Last Vital Signs Temp Pulse Resp BP Pulse Ox 97.9 F 102 H 19 150/80 99 09/18/18 13:00 09/18/18 13:00 09/18/18 13:00 09/18/18 13:00 09/18/18 13:00 HEENT: GIUSEPPE, EOM Intact Cor: RSR, No murmurs, No gallops Lungs: Rales LLL Abd: Soft, Normal bowel sounds, No organomegaly Ext:No significant edema Skin: No rashes, Integument intact CBC, BMP 09/18/18 08:15 09/18/18 08:15 Current Medications Generic Name Dose Route Start Last Admin Trade Name Freq PRN Reason Stop Dose Admin Acetaminophen 650 mg 09/18/18 14:17 Tylenol - PO Q4H PRN FEVER Acetylcysteine 200 mg 09/18/18 16:00 09/18/18 16:54 Mucomyst 20 Oral / Inh Use Only* NEB Not Given RQID [facility] Albuterol Sulfate 1 amp 09/18/18 16:00 09/18/18 16:54 Ventolin 0.083% Nebulizer Soln - NEB 1 amp RQID [facility] Administration Alprazolam 0.25 mg 09/18/18 22:00 Xanax - PO HS [facility] Amlodipine Besylate 10 mg 09/19/18 10:00 Norvasc - PO DAILY [facility] Atovaquone 1,500 mg 09/19/18 08:00 Mepron - PO DAILY@0800 [facility] Furosemide 20 mg 09/19/18 10:00 Lasix - PO DAILY [facility] Guaifenesin 10 ml 09/18/18 14:17 Robitussin - PO Q6H PRN COUGH Heparin Sodium (Porcine) 5,000 unit 09/18/18 22:00 Heparin - SQ BID [facility] Leflunomide 20 mg 09/19/18 10:00 Arava - PO DAILY [facility] Losartan Potassium 50 mg 09/19/18 10:00 Cozaar - PO DAILY [facility] Methylprednisolone Sodium Succinate 40 mg 09/18/18 22:00 Solu-Medrol - IVPUSH BID [facility] Ondansetron HCl 8 mg 09/18/18 14:17 Zofran Injection IVPB Q12H PRN NAUSEA AND/OR VOMITING Pantoprazole Sodium 40 mg 09/19/18 10:00 Protonix - PO DAILY [facility] Sulfasalazine 1,000 mg 09/18/18 22:00 Azulfidine En-Tabs - PO BID [facility] Zolpidem Tartrate 10 mg 09/18/18 14:17 Ambien - PO HS PRN INSOMNIA Impression LLL infiltrate Lung ca- on nivolumab Anemia Hbp Hpl R.A - improved on steroids Current therapy. --steroids / inhalers
[2018-09-19] MEDS: ALBUTEROL SO4 0.083% IH SOL 2.5 MG/3 ML VIAL.NEB. NEB SCH ×4 (07:45→21:30)
[2018-09-19] MEDS: ACETYLCYSTEINE 20% 200MG/ML 4 ML VIAL *FOR ORAL / INH USE ONLY NEB SCH ×4 (07:45→21:30)
[2018-09-19] MEDS ORDERED: PT OWN MED DRAWER 7, Y5N ONE ×2 (08:54→09:14)
[2018-09-19] MEDS: FUROSEMIDE 20 MG TABLET (FP) PO SCH (09:12)
[2018-09-19] MEDS: amLODIPine BESYLATE 10 MG TABLET (FP) PO SCH (09:12)
[2018-09-19] MEDS: methylPREDNISolone NA SUCC 40 MG/1 ML VIAL IVPUSH SCH (09:13)
[2018-09-19] MEDS: LOSARTAN POTASSIUM 50 MG TABLET (FP) PO SCH (09:13)
[2018-09-19] MEDS: PANTOPRAZOLE 40 MG TABLET (FP) PO SCH (09:13)
[2018-09-19] MEDS: ATOVAQUONE 750 MG/5 ML (UNIT-DOSE PACKAGING) PO SCH (09:15)
[2018-09-19] MEDS: LEFLUNOMIDE 10 MG TABLET PO SCH (09:16)
--- NOTE | 2018-09-19 09:18 | PN ---
Progress Note (short form) - Note Progress Note: Breathing feels better. No CP. Less cough and SOB. Intake & Output 09/16/18 09/17/18 09/18/18 09/19/18 23:59 23:59 23:59 23:59 Intake Total 960 120 Balance 960 120 Weight 198 lb Last Vital Signs Temp Pulse Resp BP Pulse Ox 98 F 106 H 18 138/79 100 09/19/18 05:47 09/19/18 05:47 09/19/18 05:47 09/19/18 05:47 09/18/18 19:51 Active Medications Acetaminophen (Tylenol -) 650 mg PO Q4H PRN PRN Reason: FEVER Acetylcysteine (Mucomyst 20 Oral / Inh Use Only*) 200 mg NEB RQID [facility] Last Admin: 09/18/18 20:59 Dose: Not Given Albuterol Sulfate (Ventolin 0.083% Nebulizer Soln -) 1 amp NEB RQID [facility] Last Admin: 09/18/18 20:58 Dose: 1 amp Alprazolam (Xanax -) 0.25 mg PO HS [facility] Last Admin: 09/18/18 21:49 Dose: 0.25 mg Amlodipine Besylate (Norvasc -) 10 mg PO DAILY [facility] Atovaquone (Mepron -) 1,500 mg PO DAILY@0800 [facility] Furosemide (Lasix -) 20 mg PO DAILY [facility] Guaifenesin (Robitussin -) 10 ml PO Q6H PRN PRN Reason: COUGH Heparin Sodium (Porcine) (Heparin -) 5,000 unit SQ BID [facility] Last Admin: 09/18/18 21:49 Dose: Not Given Leflunomide (Arava -) 20 mg PO DAILY [facility] Losartan Potassium (Cozaar -) 50 mg PO DAILY [facility] Methylprednisolone Sodium Succinate (Solu-Medrol -) 40 mg IVPUSH BID [facility] Last Admin: 09/18/18 21:49 Dose: 40 mg Ondansetron HCl (Zofran Injection) 8 mg IVPB Q12H PRN PRN Reason: NAUSEA AND/OR VOMITING Pantoprazole Sodium (Protonix -) 40 mg PO DAILY [facility] Sulfasalazine (Azulfidine En-Tabs -) 1,000 mg PO BID [facility] Last Admin: 09/18/18 22:52 Dose: 1,000 mg Zolpidem Tartrate (Ambien -) 10 mg PO HS PRN PRN Reason: INSOMNIA Last Admin: 09/18/18 22:52 Dose: 10 mg Gen: NAD Heart: RRR Lung: few scattered rhonchi, no expiratory wheezes Abd: soft, nontender Ext: no edema Laboratory Results - last 24 hr 09/18/18 09/18/18 08:15 08:15 WBC 8.6 RBC 3.38 L Hgb 9.9 L Hct 30.1 L MCV 89.0 MCH 29.4 MCHC 33.0 RDW 17.5 H Plt Count 199 D MPV 7.4 L Sodium 142 Potassium 4.3 Chloride 105 Carbon Dioxide 29 Anion Gap 8 BUN 27.3 H Creatinine 1.3 Est GFR (CKD-EPI)AfAm 47.46 Est GFR (CKD-EPI)NonAf 40.95 Random Glucose 172 H Calcium 9.0 Total Bilirubin 0.6 AST 18 ALT 22 Alkaline Phosphatase 91 Total Protein 5.9 L Albumin 2.8 L A/P Acute on Chronic Hypoxic Respiratory Failure Pneumonia Sepsis Metastatic NSCLC (Squamous Cell) Acute COPD EXacerbation +Troponins likely Demand Ischemia Acute Kidney Injury Lactic Acidosis RA - Change to a short course of low dose Prednisone per patient request - Off ABX - monitor urine output, creatinine - inhaled bronchodilators - O2 to keep SpO2 >90% - DVT prophylaxis Dr Sanabria
[2018-09-19] MEDS: HEPARIN NA (PORCINE) 5,000 UNITS/ML 1ML VIAL SQ SCH ×2 (09:19→21:30)
[2018-09-19] MEDS: predniSONE 20 MG TABLET (UD) PO SCH (09:22)
--- NOTE | 2018-09-19 12:45 | PN ---
Progress Note (short form) - Note Progress Note: Renal follow up for THIAGO Pt seen and examined at the bedside reports some LE swelling no fever cp, abd pain making urine sob improved Vital Signs Temperature 98 F 09/19/18 05:47 Pulse Rate 106 H 09/19/18 05:47 Respiratory Rate 18 09/19/18 05:47 Blood Pressure 138/79 09/19/18 05:47 O2 Sat by Pulse Oximetry (%) 100 09/18/18 19:51 Intake & Output 09/16/18 09/17/18 09/18/18 09/19/18 23:59 23:59 23:59 23:59 Intake Total 960 120 Balance 960 120 Weight 89.811 kg NAD awake and alert RRR CTA soft NT/ND no LE edema CBC, BMP 09/18/18 08:15 09/18/18 08:15 Current Medications Acetaminophen (Tylenol -) 650 mg PO Q4H PRN PRN Reason: FEVER Acetylcysteine (Mucomyst 20 Oral / Inh Use Only*) 200 mg NEB RQID [facility] Last Admin: 09/19/18 12:03 Dose: Not Given Albuterol Sulfate (Ventolin 0.083% Nebulizer Soln -) 1 amp NEB RQID [facility] Last Admin: 09/19/18 12:03 Dose: Not Given Alprazolam (Xanax -) 0.25 mg PO HS [facility] Last Admin: 09/18/18 21:49 Dose: 0.25 mg Amlodipine Besylate (Norvasc -) 10 mg PO DAILY [facility] Last Admin: 09/19/18 09:12 Dose: 10 mg Atovaquone (Mepron -) 1,500 mg PO DAILY@0800 [facility] Last Admin: 09/19/18 09:15 Dose: 1,500 mg Furosemide (Lasix -) 20 mg PO DAILY [facility] Last Admin: 09/19/18 09:12 Dose: 20 mg Guaifenesin (Robitussin -) 10 ml PO Q6H PRN PRN Reason: COUGH Heparin Sodium (Porcine) (Heparin -) 5,000 unit SQ BID [facility] Last Admin: 09/19/18 09:19 Dose: Not Given Leflunomide (Arava -) 20 mg PO DAILY [facility] Last Admin: 09/19/18 09:16 Dose: 20 mg Losartan Potassium (Cozaar -) 50 mg PO DAILY [facility] Last Admin: 09/19/18 09:13 Dose: 50 mg Ondansetron HCl (Zofran Injection) 8 mg IVPB Q12H PRN PRN Reason: NAUSEA AND/OR VOMITING Pantoprazole Sodium (Protonix -) 40 mg PO DAILY [facility] Last Admin: 09/19/18 09:13 Dose: 40 mg Prednisone (Deltasone -) 20 mg PO DAILY [facility] Last Admin: 09/19/18 09:22 Dose: 20 mg Sulfasalazine (Azulfidine En-Tabs -) 1,000 mg PO BID [facility] Last Admin: 09/19/18 09:15 Dose: 1,000 mg Zolpidem Tartrate (Ambien -) 10 mg PO HS PRN PRN Reason: INSOMNIA Last Admin: 09/18/18 22:52 Dose: 10 mg 73 year old woman with history of hypertension, RA, Lung Ca s/ p chemo and lobectomy who presented with epigastric/substernal CP adn found to have THIAGO with Cr of 2.4. #Acute kidney injury likely due to renal hypoprofusin in setting of PNA/ Diuretics/ARB #Suspected PNA #Hypertension #Mild Hyponatremia Renal function now improved no overt electrolyte or acid-base disturbance noted continue daily Lasix as needed tolerating ARB Will sign off case at this time, please call if there are any questions or concerns Thank you Shelton Chery DO
--- NOTE | 2018-09-19 14:23 | PN ---
Progress Note, Physician Chief Complaint: Pneumonia Sepsis Lung Cancer History of Present Illness: Previous notes and events reviewed awake and alert NAD complain of swelling to B/L lower extremity R>L no complaints of chest pain complain of nausea earlier after eating lunch sts her breathing is improving - Current Medication List Current Medications: Active Medications Acetaminophen (Tylenol -) 650 mg PO Q4H PRN PRN Reason: FEVER Acetylcysteine (Mucomyst 20 Oral / Inh Use Only*) 200 mg NEB RQID [facility] Last Admin: 09/19/18 12:03 Dose: Not Given Albuterol Sulfate (Ventolin 0.083% Nebulizer Soln -) 1 amp NEB RQID [facility] Last Admin: 09/19/18 12:03 Dose: Not Given Alprazolam (Xanax -) 0.25 mg PO HS [facility] Last Admin: 09/18/18 21:49 Dose: 0.25 mg Amlodipine Besylate (Norvasc -) 10 mg PO DAILY [facility] Last Admin: 09/19/18 09:12 Dose: 10 mg Atovaquone (Mepron -) 1,500 mg PO DAILY@0800 [facility] Last Admin: 09/19/18 09:15 Dose: 1,500 mg Furosemide (Lasix -) 20 mg PO DAILY [facility] Last Admin: 09/19/18 09:12 Dose: 20 mg Guaifenesin (Robitussin -) 10 ml PO Q6H PRN PRN Reason: COUGH Heparin Sodium (Porcine) (Heparin -) 5,000 unit SQ BID [facility] Last Admin: 09/19/18 09:19 Dose: Not Given Leflunomide (Arava -) 20 mg PO DAILY [facility] Last Admin: 09/19/18 09:16 Dose: 20 mg Losartan Potassium (Cozaar -) 50 mg PO DAILY [facility] Last Admin: 09/19/18 09:13 Dose: 50 mg Ondansetron HCl (Zofran Injection) 8 mg IVPB Q12H PRN PRN Reason: NAUSEA AND/OR VOMITING Pantoprazole Sodium (Protonix -) 40 mg PO DAILY [facility] Last Admin: 09/19/18 09:13 Dose: 40 mg Prednisone (Deltasone -) 20 mg PO DAILY [facility] Last Admin: 09/19/18 09:22 Dose: 20 mg Sulfasalazine (Azulfidine En-Tabs -) 1,000 mg PO BID [facility] Last Admin: 09/19/18 09:15 Dose: 1,000 mg Zolpidem Tartrate (Ambien -) 10 mg PO HS PRN PRN Reason: INSOMNIA Last Admin: 09/18/18 22:52 Dose: 10 mg - Objective Vital Signs: Vital Signs Temperature 98 F 09/19/18 05:47 Pulse Rate 106 H 09/19/18 05:47 Respiratory Rate 18 09/19/18 05:47 Blood Pressure 138/79 09/19/18 05:47 O2 Sat by Pulse Oximetry (%) 100 09/18/18 19:51 Constitutional: Yes: No Distress, Calm Eyes: Yes: Conjunctiva Clear HENT: Yes: Atraumatic Cardiovascular: Yes: Tachycardia Respiratory: Yes: Regular, On Nasal O2, Rhonchi Gastrointestinal: Yes: Normal Bowel Sounds, Soft, Abdomen, Obese Musculoskeletal: Yes: Muscle Weakness Extremities: Yes: WNL Edema: Yes Edema: LLE: 1+, RLE: 2+ Neurological: Yes: Alert, Oriented Psychiatric: Yes: Alert, Oriented Labs: CBC, BMP 09/18/18 08:15 09/18/18 08:15 INR, PTT INR 1.07 (0.83-1.09) 09/11/18 18:00 Microbiology 09/11/18 19:53 Blood - Peripheral Venous Blood Culture - Final NO GROWTH AFTER 5 DAYS INCUBATION 09/11/18 19:55 Blood - Peripheral Venous Blood Culture - Final NO GROWTH AFTER 5 DAYS INCUBATION 09/12/18 18:07 Urine For Antigen Detection Legionella Antigen - Final 09/12/18 18:07 Urine For Antigen Detection Streptococcus pneumoniae Antigen (M - Final 09/11/18 19:55 Urine - Urine - Catheterized Urine Culture - Final NO GROWTH OBTAINED - ....Imaging Cat Scan: Report Reviewed Problem List - Problems (1) Acute on chronic respiratory failure with hypoxemia Assessment/Plan: -Pulm on board -Prednisone -bronchodilators -keep SpO2 >90% -O2 via NC Code(s): J96.21 - ACUTE AND CHRONIC RESPIRATORY FAILURE WITH HYPOXIA (2) Chest pain Assessment/Plan: -resolved -cardiology on board -troponin levels reviewed Code(s): R07.9 - CHEST PAIN, UNSPECIFIED (3) Elevated troponin Assessment/Plan: -troponin 0.13,0.14, 0.15, 0.07 -cardiology on board Code(s): R74.8 - ABNORMAL LEVELS OF OTHER SERUM ENZYMES (4) Lactic acid acidosis Assessment/Plan: -resolved -LA 2.4-->1.5 Code(s): E87.2 - ACIDOSIS (5) Pneumonia Assessment/Plan: -Pulm and ID on board -no leukocytosis -afebrile -observe off antibiotics -bronchodilators -prednisone -keep SpO2 >90% -O2 via NC -BC neg -Urine legionella and strep neg Code(s): J18.9 - PNEUMONIA, UNSPECIFIED ORGANISM (6) Sepsis Assessment/Plan: -Pulm and ID on board -no leukocytosis -afebrile -observe off antibiotics -bronchodilators -prednisone -keep SpO2 >90% -O2 via NC -BC neg -Urine legionella and strep neg -UC neg Code(s): A41.9 - SEPSIS, UNSPECIFIED ORGANISM (7) THIAGO (acute kidney injury) Assessment/Plan: -BUN/Cr 27.3/1.3 -monitor renal function -Renal on board Code(s): N17.9 - ACUTE KIDNEY FAILURE, UNSPECIFIED (8) GERD (gastroesophageal reflux disease) Assessment/Plan: -Pantoprazole Code(s): K21.9 - GASTRO-ESOPHAGEAL REFLUX DISEASE WITHOUT ESOPHAGITIS (9) Stage 4 lung cancer Assessment/Plan: -Oncology on board Code(s): C34.90 - MALIGNANT NEOPLASM OF UNSP PART OF UNSP BRONCHUS OR LUNG (10) HTN (hypertension) Assessment/Plan: -Amlodipine, Losartan -low Na diet Code(s): I10 - ESSENTIAL (PRIMARY) HYPERTENSION Assessment/Plan see problem list dvt ppx possible DC home in AM if no acute events overnight
--- NOTE | 2018-09-19 18:53 | PN ---
Progress Note (short form) - Note Progress Note: Patient seen and examined Clinically improved No chest pains Complains of some lower extremity edema Last Vital Signs Temp Pulse Resp BP Pulse Ox 98.9 F 105 H 18 112/80 100 09/19/18 17:29 09/19/18 17:29 09/19/18 17:29 09/19/18 17:29 09/19/18 09:00 HEENT: GIUSEPPE, EOM Intact Cor: RSR, No murmurs, No gallops Lungs:rales LLL Abd: Soft, Normal bowel sounds, No organomegaly Ext:2-3+ le EDEMA edema Skin: No rashes, Integument intact CBC, BMP 09/18/18 08:15 09/18/18 08:15 Current Medications Generic Name Dose Route Start Last Admin Trade Name Freq PRN Reason Stop Dose Admin Acetaminophen 650 mg 09/18/18 14:17 Tylenol - PO Q4H PRN FEVER Acetylcysteine 200 mg 09/18/18 16:00 09/19/18 16:02 Mucomyst 20 Oral / Inh Use Only* NEB Not Given RQID [facility] Albuterol Sulfate 1 amp 09/18/18 16:00 09/19/18 16:02 Ventolin 0.083% Nebulizer Soln - NEB 1 amp RQID [facility] Administration Alprazolam 0.25 mg 09/18/18 22:00 09/18/18 21:49 Xanax - PO 0.25 mg HS [facility] Administration Amlodipine Besylate 10 mg 09/19/18 10:00 09/19/18 09:12 Norvasc - PO 10 mg DAILY [facility] Administration Atovaquone 1,500 mg 09/19/18 08:00 09/19/18 09:15 Mepron - PO 1,500 mg DAILY@0800 [facility] Administration Furosemide 20 mg 09/19/18 10:00 09/19/18 09:12 Lasix - PO 20 mg DAILY [facility] Administration Guaifenesin 10 ml 09/18/18 14:17 Robitussin - PO Q6H PRN COUGH Heparin Sodium (Porcine) 5,000 unit 09/18/18 22:00 09/19/18 09:19 Heparin - SQ Not Given BID [facility] Leflunomide 20 mg 09/19/18 10:00 09/19/18 09:16 Arava - PO 20 mg DAILY [facility] Administration Losartan Potassium 50 mg 09/19/18 10:00 09/19/18 09:13 Cozaar - PO 50 mg DAILY [facility] Administration Ondansetron HCl 8 mg 09/18/18 14:17 Zofran Injection IVPB Q12H PRN NAUSEA AND/OR VOMITING Pantoprazole Sodium 40 mg 09/19/18 10:00 09/19/18 09:13 Protonix - PO 40 mg DAILY [facility] Administration Prednisone 20 mg 09/19/18 10:00 09/19/18 09:22 Deltasone - PO 20 mg DAILY [facility] Administration Sulfasalazine 1,000 mg 09/18/18 22:00 09/19/18 09:15 Azulfidine En-Tabs - PO 1,000 mg BID [facility] Administration Zolpidem Tartrate 10 mg 09/18/18 14:17 09/18/18 22:52 Ambien - PO 10 mg HS PRN Administration INSOMNIA iMPRESSION: lUNG CA S/P immunotherapy Anemia HBP Chest pain syndrome Plan Current therapy
[2018-09-19] MEDS: ZOLPIDEM TARTRATE 5 MG TABLET PO PRN (23:59)
[2018-09-20 07:39] LABS: HEMATOCRIT 28.9 % (32.4-45.2); HEMOGLOBIN 9.6 GM/dL (10.7-15.3); MCH 29.4 pg (25.7-33.7); MCHC 33.1 g/dl (32.0-36.0); MEAN CELL VOLUME 88.8 fl (80-96); MEAN PLT VOLUME 7.6 fl (7.5-11.1); RBC 3.26 M/mm3 (3.60-5.2); WHITE BLOOD COUNT 7.2 K/mm3 (4.0-10.0)
[2018-09-20] MEDS: ACETYLCYSTEINE 20% 200MG/ML 4 ML VIAL *FOR ORAL / INH USE ONLY NEB SCH ×4 (07:49→20:19)
[2018-09-20] MEDS: ALBUTEROL SO4 0.083% IH SOL 2.5 MG/3 ML VIAL.NEB. NEB SCH ×4 (07:49→20:19)
[2018-09-20 07:58] LABS: PLATELET COUNT 168 K/MM3 (134-434)
[2018-09-20 08:03] LABS: ALBUMIN 2.5 g/dl (3.4-5.0); BILIRUBIN,TOTAL 0.6 mg/dL (0.2-1); BLOOD UREA NITROGEN 29.9 mg/dL (7-18); CALCIUM 8.5 mg/dL (8.5-10.1); CREATININE 1.1 mg/dL (0.55-1.3); POTASSIUM 3.4 mmol/L (3.5-5.1); TOT PROT 5.3 g/dl (6.4-8.2)
--- NOTE | 2018-09-20 08:40 | PN ---
Progress Note (short form) - Note Progress Note: OOB to chair. Breathing feels overall better. No CP. Less cough and SOB. Intake & Output 09/17/18 09/18/18 09/19/18 09/20/18 23:59 23:59 23:59 23:59 Intake Total 960 120 0 Balance 960 120 0 Weight 198 lb Last Vital Signs Temp Pulse Resp BP Pulse Ox 97.9 F 102 H 18 159/80 100 09/20/18 06:00 09/20/18 06:00 09/20/18 06:00 09/20/18 06:00 09/19/18 21:00 Active Medications Acetaminophen (Tylenol -) 650 mg PO Q4H PRN PRN Reason: FEVER Acetylcysteine (Mucomyst 20 Oral / Inh Use Only*) 200 mg NEB RQID [facility] Last Admin: 09/20/18 07:49 Dose: Not Given Albuterol Sulfate (Ventolin 0.083% Nebulizer Soln -) 1 amp NEB RQID [facility] Last Admin: 09/20/18 07:49 Dose: Not Given Alprazolam (Xanax -) 0.25 mg PO HS [facility] Last Admin: 09/20/18 00:00 Dose: 0.25 mg Amlodipine Besylate (Norvasc -) 10 mg PO DAILY [facility] Last Admin: 09/19/18 09:12 Dose: 10 mg Atovaquone (Mepron -) 1,500 mg PO DAILY@0800 [facility] Last Admin: 09/19/18 09:15 Dose: 1,500 mg Furosemide (Lasix -) 20 mg PO DAILY [facility] Last Admin: 09/19/18 09:12 Dose: 20 mg Guaifenesin (Robitussin -) 10 ml PO Q6H PRN PRN Reason: COUGH Heparin Sodium (Porcine) (Heparin -) 5,000 unit SQ BID [facility] Last Admin: 09/19/18 21:30 Dose: 5,000 unit Leflunomide (Arava -) 20 mg PO DAILY [facility] Last Admin: 09/19/18 09:16 Dose: 20 mg Losartan Potassium (Cozaar -) 50 mg PO DAILY [facility] Last Admin: 09/19/18 09:13 Dose: 50 mg Ondansetron HCl (Zofran Injection) 8 mg IVPB Q12H PRN PRN Reason: NAUSEA AND/OR VOMITING Pantoprazole Sodium (Protonix -) 40 mg PO DAILY [facility] Last Admin: 09/19/18 09:13 Dose: 40 mg Prednisone (Deltasone -) 20 mg PO DAILY [facility] Last Admin: 09/19/18 09:22 Dose: 20 mg Sulfasalazine (Azulfidine En-Tabs -) 1,000 mg PO BID [facility] Last Admin: 09/19/18 21:30 Dose: 1,000 mg Zolpidem Tartrate (Ambien -) 10 mg PO HS PRN PRN Reason: INSOMNIA Last Admin: 09/19/18 23:59 Dose: 10 mg Gen: NAD Heart: RRR Lung: few scattered rhonchi, no expiratory wheezes Abd: soft, nontender Ext: no edema Laboratory Results - last 24 hr 09/20/18 09/20/18 06:16 06:16 WBC 7.2 RBC 3.26 L Hgb 9.6 L Hct 28.9 L MCV 88.8 MCH 29.4 MCHC 33.1 RDW 18.0 H Plt Count 168 MPV 7.6 Sodium 141 Potassium 3.4 L Chloride 106 Carbon Dioxide 29 Anion Gap 7 L BUN 29.9 H Creatinine 1.1 Est GFR (CKD-EPI)AfAm 58.09 Est GFR (CKD-EPI)NonAf 50.12 Random Glucose 80 Calcium 8.5 Total Bilirubin 0.6 AST 18 ALT 16 Alkaline Phosphatase 80 Total Protein 5.3 L Albumin 2.5 L A/P Acute on Chronic Hypoxic Respiratory Failure Pneumonia Sepsis Metastatic NSCLC (Squamous Cell) Acute COPD EXacerbation +Troponins likely Demand Ischemia Acute Kidney Injury Lactic Acidosis RA - Short course of low dose Prednisone per patient request - Off ABX - monitor urine output, creatinine - inhaled bronchodilators - O2 to keep SpO2 >90% - DVT prophylaxis - No Pulmonary contraindication for DC planning Dr Sanabria
[2018-09-20] MEDS: LOSARTAN POTASSIUM 50 MG TABLET (FP) PO SCH (09:43)
[2018-09-20] MEDS: predniSONE 20 MG TABLET (UD) PO SCH (09:43)
[2018-09-20] MEDS: FUROSEMIDE 20 MG TABLET (FP) PO SCH (09:43)
[2018-09-20] MEDS: PANTOPRAZOLE 40 MG TABLET (FP) PO SCH (09:44)
[2018-09-20] MEDS: ATOVAQUONE 750 MG/5 ML (UNIT-DOSE PACKAGING) PO SCH (09:44)
[2018-09-20] MEDS: amLODIPine BESYLATE 10 MG TABLET (FP) PO SCH (09:44)
[2018-09-20] MEDS: HEPARIN NA (PORCINE) 5,000 UNITS/ML 1ML VIAL SQ SCH ×2 (09:44→21:27)
[2018-09-20] MEDS: LEFLUNOMIDE 10 MG TABLET PO SCH (09:45)
--- NOTE | 2018-09-20 10:39 | DS ---
Physical Examination Vital Signs: Vital Signs Temperature 98.2 F 09/20/18 08:43 Pulse Rate 103 H 09/20/18 08:43 Respiratory Rate 18 09/20/18 08:43 Blood Pressure 160/83 09/20/18 08:43 O2 Sat by Pulse Oximetry (%) 100 09/19/18 21:00 Constitutional: Yes: No Distress, Calm Eyes: Yes: Conjunctiva Clear HENT: Yes: Atraumatic Cardiovascular: Yes: Regular Rate and Rhythm Respiratory: Yes: Regular, Diminished, On Nasal O2 Gastrointestinal: Yes: Normal Bowel Sounds, Soft, Abdomen, Obese Musculoskeletal: Yes: Muscle Weakness Extremities: Yes: WNL Edema: Yes Edema: LLE: 1+, RLE: 1+ Neurological: Yes: Alert, Oriented Psychiatric: Yes: Alert, Oriented Labs: CBC, BMP 09/20/18 06:16 09/20/18 06:16 Discharge Summary Reason For Visit: SEPSIS Current Active Problems Acute on chronic respiratory failure with hypoxemia (Acute) Chest pain (Acute) Elevated troponin (Acute) Lactic acid acidosis (Acute) Leg edema (Acute) Pneumonia (Acute) Sepsis (Acute) Hospital Course: see progress notes Laboratory Tests 09/11/18 09/11/18 09/11/18 18:00 18:00 18:00 WBC 12.3 H RBC 3.96 Hgb 11.3 Hct 35.4 MCV 89.4 MCH 28.5 MCHC 31.9 L RDW 17.5 H Plt Count 273 MPV 7.6 Absolute Neuts (auto) 9.3 H Neutrophils % 75.5 Neutrophils % (Manual) Band Neutrophils % Lymphocytes % 17.8 Lymphocytes % (Manual) Monocytes % 6.4 Monocytes % (Manual) Eosinophils % 0.0 D Eosinophils % (Manual) Basophils % 0.3 Basophils % (Manual) Myelocytes % (Man) Promyelocytes % (Man) Blast Cells % (Manual) Nucleated RBC % 0 Metamyelocytes Hypochromia Platelet Estimate Polychromasia Poikilocytosis Anisocytosis Microcytosis Macrocytosis PT with INR INR Puncture Site ABG pH ABG pCO2 at Pt Temp ABG pO2 at Pt Temp ABG HCO3 ABG O2 Sat (Measured) ABG O2 Content ABG Base Excess Ermias Test VBG pH POC VBG pCO2 POC VBG pO2 VBG HCO3 VBG O2 Sat (Marie) VBG Base Excess Oxygen Flow Rate Sodium 135 L Potassium 3.5 Chloride 96 L Carbon Dioxide 27 Anion Gap 12 BUN 31.6 H Creatinine 2.1 H Est GFR (CKD-EPI)AfAm 26.58 Est GFR (CKD-EPI)NonAf 22.93 Random Glucose 121 H Lactic Acid Calcium 9.7 Phosphorus Magnesium 1.6 L Total Bilirubin 0.5 AST 29 ALT 13 Alkaline Phosphatase 94 Creatine Kinase 41 Troponin I 0.13 H B-Natriuretic Peptide 766.6 H Total Protein 7.0 Albumin 3.2 L Lipase TSH 0.70 Urine Color Urine Appearance Urine pH Ur Specific [employer] Urine Protein Urine Glucose (UA) Urine Ketones Urine Blood Urine Nitrite Urine Bilirubin Urine Urobilinogen Ur Leukocyte Esterase Urine Eosinophils Ur Random Creatinine U Random Total Protein Ur Random Sodium Ur Random Urea Nitrogn 09/11/18 09/11/18 09/11/18 18:00 19:55 20:01 WBC RBC Hgb Hct MCV MCH MCHC RDW Plt Count MPV Absolute Neuts (auto) Neutrophils % Neutrophils % (Manual) Band Neutrophils % Lymphocytes % Lymphocytes % (Manual) Monocytes % Monocytes % (Manual) Eosinophils % Eosinophils % (Manual) Basophils % Basophils % (Manual) Myelocytes % (Man) Promyelocytes % (Man) Blast Cells % (Manual) Nucleated RBC % Metamyelocytes Hypochromia Platelet Estimate Polychromasia Poikilocytosis Anisocytosis Microcytosis Macrocytosis PT with INR 12.60 INR 1.07 Puncture Site ABG pH ABG pCO2 at Pt Temp ABG pO2 at Pt Temp ABG HCO3 ABG O2 Sat (Measured) ABG O2 Content ABG Base Excess Ermias Test VBG pH POC VBG pCO2 POC VBG pO2 VBG HCO3 VBG O2 Sat (Marie) VBG Base Excess Oxygen Flow Rate Sodium Potassium Chloride Carbon Dioxide Anion Gap BUN Creatinine Est GFR (CKD-EPI)AfAm Est GFR (CKD-EPI)NonAf Random Glucose Lactic Acid 2.4 H* Calcium Phosphorus Magnesium Total Bilirubin AST ALT Alkaline Phosphatase Creatine Kinase Troponin I 0.14 H B-Natriuretic Peptide Total Protein Albumin Lipase 71 L TSH Urine Color Urine Appearance Urine pH Ur Specific [employer] Urine Protein Urine Glucose (UA) Urine Ketones Urine Blood Urine Nitrite Urine Bilirubin Urine Urobilinogen Ur Leukocyte Esterase Urine Eosinophils Ur Random Creatinine U Random Total Protein Ur Random Sodium Ur Random Urea Nitrogn 09/11/18 09/11/18 09/11/18 20:05 23:05 23:05 WBC RBC Hgb Hct MCV MCH MCHC RDW Plt Count MPV Absolute Neuts (auto) Neutrophils % Neutrophils % (Manual) Band Neutrophils % Lymphocytes % Lymphocytes % (Manual) Monocytes % Monocytes % (Manual) Eosinophils % Eosinophils % (Manual) Basophils % Basophils % (Manual) Myelocytes % (Man) Promyelocytes % (Man) Blast Cells % (Manual) Nucleated RBC % Metamyelocytes Hypochromia Platelet Estimate Polychromasia Poikilocytosis Anisocytosis Microcytosis Macrocytosis PT with INR INR Puncture Site ABG pH ABG pCO2 at Pt Temp ABG pO2 at Pt Temp ABG HCO3 ABG O2 Sat (Measured) ABG O2 Content ABG Base Excess Ermias Test VBG pH 7.37 POC VBG pCO2 45.9 POC VBG pO2 35.6 VBG HCO3 25.7 VBG O2 Sat (Marie) 56.7 L VBG Base Excess 0.7 Oxygen Flow Rate Sodium Potassium Chloride Carbon Dioxide Anion Gap BUN Creatinine Est GFR (CKD-EPI)AfAm Est GFR (CKD-EPI)NonAf Random Glucose Lactic Acid 1.5 Calcium Phosphorus Magnesium Total Bilirubin AST ALT Alkaline Phosphatase Creatine Kinase Troponin I B-Natriuretic Peptide Total Protein Albumin Lipase TSH Urine Color Yellow Urine Appearance Clear Urine pH 5.0 D Ur Specific [employer] 1.015 Urine Protein Negative Urine Glucose (UA) Negative Urine Ketones Negative Urine Blood Negative Urine Nitrite Negative Urine Bilirubin Negative Urine Urobilinogen 0.2 Ur Leukocyte Esterase Negative Urine Eosinophils Ur Random Creatinine U Random Total Protein Ur Random Sodium Ur Random Urea Nitrogn 09/12/18 09/12/18 09/12/18 12:25 12:25 12:34 WBC 13.6 H RBC 3.80 Hgb 10.9 Hct 33.9 MCV 89.2 MCH 28.7 MCHC 32.2 RDW 17.7 H Plt Count 226 MPV 7.7 Absolute Neuts (auto) 11.4 H Neutrophils % 83.6 H Neutrophils % (Manual) Band Neutrophils % Lymphocytes % 11.6 D Lymphocytes % (Manual) Monocytes % 4.1 Monocytes % (Manual) Eosinophils % 0.2 D Eosinophils % (Manual) Basophils % 0.5 Basophils % (Manual) Myelocytes % (Man) Promyelocytes % (Man) Blast Cells % (Manual) Nucleated RBC % 0 Metamyelocytes Hypochromia Platelet Estimate Polychromasia Poikilocytosis Anisocytosis Microcytosis Macrocytosis PT with INR INR Puncture Site Left radial ABG pH 7.40 ABG pCO2 at Pt Temp 36.3 ABG pO2 at Pt Temp 59.9 L ABG HCO3 22.0 ABG O2 Sat (Measured) 85.5 L ABG O2 Content 11.8 L ABG Base Excess -1.9 Ermias Test Positive VBG pH POC VBG pCO2 POC VBG pO2 VBG HCO3 VBG O2 Sat (Marie) VBG Base Excess Oxygen Flow Rate Yes Sodium 134 L Potassium 3.7 Chloride 100 Carbon Dioxide 23 Anion Gap 10 BUN 28.5 H Creatinine 1.8 H Est GFR (CKD-EPI)AfAm 32.03 Est GFR (CKD-EPI)NonAf 27.63 Random Glucose 105 Lactic Acid Calcium 8.7 Phosphorus Magnesium Total Bilirubin 1.1 H AST 40 H ALT 10 L Alkaline Phosphatase 76 Creatine Kinase Troponin I 0.15 H B-Natriuretic Peptide Total Protein 5.9 L Albumin 2.6 L Lipase TSH Urine Color Urine Appearance Urine pH Ur Specific [employer] Urine Protein Urine Glucose (UA) Urine Ketones Urine Blood Urine Nitrite Urine Bilirubin Urine Urobilinogen Ur Leukocyte Esterase Urine Eosinophils Ur Random Creatinine U Random Total Protein Ur Random Sodium Ur Random Urea Nitrogn 09/12/18 09/12/18 09/12/18 18:07 18:07 18:07 WBC RBC Hgb Hct MCV MCH MCHC RDW Plt Count MPV Absolute Neuts (auto) Neutrophils % Neutrophils % (Manual) Band Neutrophils % Lymphocytes % Lymphocytes % (Manual) Monocytes % Monocytes % (Manual) Eosinophils % Eosinophils % (Manual) Basophils % Basophils % (Manual) Myelocytes % (Man) Promyelocytes % (Man) Blast Cells % (Manual) Nucleated RBC % Metamyelocytes Hypochromia Platelet Estimate Polychromasia Poikilocytosis Anisocytosis Microcytosis Macrocytosis PT with INR INR Puncture Site ABG pH ABG pCO2 at Pt Temp ABG pO2 at Pt Temp ABG HCO3 ABG O2 Sat (Measured) ABG O2 Content ABG Base Excess Ermias Test VBG pH POC VBG pCO2 POC VBG pO2 VBG HCO3 VBG O2 Sat (Marie) VBG Base Excess Oxygen Flow Rate Sodium Potassium Chloride Carbon Dioxide Anion Gap BUN Creatinine Est GFR (CKD-EPI)AfAm Est GFR (CKD-EPI)NonAf Random Glucose Lactic Acid Calcium Phosphorus Magnesium Total Bilirubin AST ALT Alkaline Phosphatase Creatine Kinase Troponin I B-Natriuretic Peptide Total Protein Albumin Lipase TSH Urine Color Urine Appearance Urine pH Ur Specific [employer] Urine Protein Urine Glucose (UA) Urine Ketones Urine Blood Urine Nitrite Urine Bilirubin Urine Urobilinogen Ur Leukocyte Esterase Urine Eosinophils None seen Ur Random Creatinine U Random Total Protein 63.8 H Ur Random Sodium < 18 L Ur Random Urea Nitrogn 09/12/18 09/12/18 09/14/18 18:07 19:25 13:25 WBC RBC Hgb Hct MCV MCH MCHC RDW Plt Count MPV Absolute Neuts (auto) Neutrophils % Neutrophils % (Manual) Band Neutrophils % Lymphocytes % Lymphocytes % (Manual) Monocytes % Monocytes % (Manual) Eosinophils % Eosinophils % (Manual) Basophils % Basophils % (Manual) Myelocytes % (Man) Promyelocytes % (Man) Blast Cells % (Manual) Nucleated RBC % Metamyelocytes Hypochromia Platelet Estimate Polychromasia Poikilocytosis Anisocytosis Microcytosis Macrocytosis PT with INR INR Puncture Site ABG pH ABG pCO2 at Pt Temp ABG pO2 at Pt Temp ABG HCO3 ABG O2 Sat (Measured) ABG O2 Content ABG Base Excess Ermias Test VBG pH POC VBG pCO2 POC VBG pO2 VBG HCO3 VBG O2 Sat (Marie) VBG Base Excess Oxygen Flow Rate Sodium 137 Potassium 3.6 Chloride 102 Carbon Dioxide 24 Anion Gap 12 BUN 26.0 H Creatinine 1.4 H Est GFR (CKD-EPI)AfAm 43.40 Est GFR (CKD-EPI)NonAf 37.44 Random Glucose 93 Lactic Acid Calcium 9.1 Phosphorus 2.0 L Magnesium 1.8 Total Bilirubin 0.6 AST 22 ALT 15 Alkaline Phosphatase 81 Creatine Kinase Troponin I 0.07 H B-Natriuretic Peptide Total Protein 6.2 L Albumin 2.5 L Lipase TSH Urine Color Urine Appearance Urine pH Ur Specific [employer] Urine Protein Urine Glucose (UA) Urine Ketones Urine Blood Urine Nitrite Urine Bilirubin Urine Urobilinogen Ur Leukocyte Esterase Urine Eosinophils Ur Random Creatinine 96.0 U Random Total Protein Ur Random Sodium Ur Random Urea Nitrogn 499 09/14/18 09/15/18 09/18/18 13:25 06:30 08:15 WBC 14.5 H RBC 3.47 L Hgb 10.2 L Hct 30.9 L MCV 88.9 MCH 29.3 MCHC 32.9 RDW 17.8 H Plt Count 267 MPV 7.6 Absolute Neuts (auto) 13.3 H Neutrophils % 91.8 H Neutrophils % (Manual) 93.9 H Band Neutrophils % 0.0 Lymphocytes % 3.2 L D Lymphocytes % (Manual) 3.0 L D Monocytes % 5.0 Monocytes % (Manual) 3 L D Eosinophils % 0.0 D Eosinophils % (Manual) 0.0 D Basophils % 0.0 Basophils % (Manual) 0.0 Myelocytes % (Man) 0 Promyelocytes % (Man) 0 Blast Cells % (Manual) 0 Nucleated RBC % 1 H Metamyelocytes 0 D Hypochromia 0 Platelet Estimate Normal Polychromasia 0 Poikilocytosis 0 Anisocytosis 0 Microcytosis 0 Macrocytosis 0 PT with INR INR Puncture Site ABG pH ABG pCO2 at Pt Temp ABG pO2 at Pt Temp ABG HCO3 ABG O2 Sat (Measured) ABG O2 Content ABG Base Excess Ermias Test VBG pH POC VBG pCO2 POC VBG pO2 VBG HCO3 VBG O2 Sat (Marie) VBG Base Excess Oxygen Flow Rate Sodium 138 142 Potassium 4.0 4.3 Chloride 106 105 Carbon Dioxide 24 29 Anion Gap 8 8 BUN 26.8 H 27.3 H Creatinine 1.1 1.3 Est GFR (CKD-EPI)AfAm 58.09 47.46 Est GFR (CKD-EPI)NonAf 50.12 40.95 Random Glucose 141 H 172 H Lactic Acid Calcium 8.6 9.0 Phosphorus Magnesium Total Bilirubin 0.6 AST 18 ALT 22 Alkaline Phosphatase 91 Creatine Kinase Troponin I B-Natriuretic Peptide Total Protein 5.9 L Albumin 2.8 L Lipase TSH Urine Color Urine Appearance Urine pH Ur Specific [employer] Urine Protein Urine Glucose (UA) Urine Ketones Urine Blood Urine Nitrite Urine Bilirubin Urine Urobilinogen Ur Leukocyte Esterase Urine Eosinophils Ur Random Creatinine U Random Total Protein Ur Random Sodium Ur Random Urea Nitrogn 09/18/18 09/20/18 09/20/18 08:15 06:16 06:16 WBC 8.6 7.2 RBC 3.38 L 3.26 L Hgb 9.9 L 9.6 L Hct 30.1 L 28.9 L MCV 89.0 88.8 MCH 29.4 29.4 MCHC 33.0 33.1 RDW 17.5 H 18.0 H Plt Count 199 D 168 MPV 7.4 L 7.6 Absolute Neuts (auto) Neutrophils % Neutrophils % (Manual) Band Neutrophils % Lymphocytes % Lymphocytes % (Manual) Monocytes % Monocytes % (Manual) Eosinophils % Eosinophils % (Manual) Basophils % Basophils % (Manual) Myelocytes % (Man) Promyelocytes % (Man) Blast Cells % (Manual) Nucleated RBC % Metamyelocytes Hypochromia Platelet Estimate Polychromasia Poikilocytosis Anisocytosis Microcytosis Macrocytosis PT with INR INR Puncture Site ABG pH ABG pCO2 at Pt Temp ABG pO2 at Pt Temp ABG HCO3 ABG O2 Sat (Measured) ABG O2 Content ABG Base Excess Ermias Test VBG pH POC VBG pCO2 POC VBG pO2 VBG HCO3 VBG O2 Sat (Marie) VBG Base Excess Oxygen Flow Rate Sodium 141 Potassium 3.4 L Chloride 106 Carbon Dioxide 29 Anion Gap 7 L BUN 29.9 H Creatinine 1.1 Est GFR (CKD-EPI)AfAm 58.09 Est GFR (CKD-EPI)NonAf 50.12 Random Glucose 80 Lactic Acid Calcium 8.5 Phosphorus Magnesium Total Bilirubin 0.6 AST 18 ALT 16 Alkaline Phosphatase 80 Creatine Kinase Troponin I B-Natriuretic Peptide Total Protein 5.3 L Albumin 2.5 L Lipase TSH Urine Color Urine Appearance Urine pH Ur Specific [employer] Urine Protein Urine Glucose (UA) Urine Ketones Urine Blood Urine Nitrite Urine Bilirubin Urine Urobilinogen Ur Leukocyte Esterase Urine Eosinophils Ur Random Creatinine U Random Total Protein Ur Random Sodium Ur Random Urea Nitrogn Home Medication List Medication Instructions Recorded Confirmed Type Alprazolam [Xanax] 0.25 mg PO DAILY 06/15/18 08/30/18 History Blood-Glucose Meter [Freestyle 1 each ACHS 06/15/18 08/30/18 History Lite Meter] Losartan Potassium [Cozaar -] 50 mg PO DAILY 06/15/18 08/30/18 History Pantoprazole Sodium [Protonix -] 40 mg PO DAILY 06/15/18 08/30/18 History Zolpidem Tartrate [Ambien] 10 mg PO DAILY 06/15/18 08/30/18 History Active Medications Generic Name Dose Route Start Last Admin Trade Name Freq PRN Reason Stop Dose Admin Acetaminophen 650 mg 09/18/18 14:17 Tylenol - PO Q4H PRN FEVER Acetylcysteine 200 mg 09/18/18 16:00 09/20/18 07:49 Mucomyst 20 Oral / Inh Use Only* NEB Not Given RQID RICHARD Albuterol Sulfate 1 amp 09/18/18 16:00 09/20/18 07:49 Ventolin 0.083% Nebulizer Soln - NEB Not Given RQID RICHARD Alprazolam 0.25 mg 09/18/18 22:00 09/20/18 00:00 Xanax - PO 0.25 mg HS RICHARD Administration Amlodipine Besylate 10 mg 09/19/18 10:00 09/20/18 09:44 Norvasc - PO 10 mg DAILY RICHARD Administration Atovaquone 1,500 mg 09/19/18 08:00 09/20/18 09:44 Mepron - PO 1,500 mg DAILY@0800 RICHARD Administration Furosemide 20 mg 09/19/18 10:00 09/20/18 09:43 Lasix - PO 20 mg DAILY RICHARD Administration Guaifenesin 10 ml 09/18/18 14:17 Robitussin - PO Q6H PRN COUGH Heparin Sodium (Porcine) 5,000 unit 09/18/18 22:00 09/20/18 09:44 Heparin - SQ Not Given BID RICAHRD Leflunomide 20 mg 09/19/18 10:00 09/20/18 09:45 Arava - PO 20 mg DAILY RICHARD Administration Losartan Potassium 50 mg 09/19/18 10:00 09/20/18 09:43 Cozaar - PO 50 mg DAILY RICHARD Administration Ondansetron HCl 8 mg 09/18/18 14:17 Zofran Injection IVPB Q12H PRN NAUSEA AND/OR VOMITING Pantoprazole Sodium 40 mg 09/19/18 10:00 09/20/18 09:44 Protonix - PO 40 mg DAILY RICHARD Administration Prednisone 20 mg 09/19/18 10:00 09/20/18 09:43 Deltasone - PO 20 mg DAILY RICHARD Administration Sulfasalazine 1,000 mg 09/18/18 22:00 09/20/18 09:45 Azulfidine En-Tabs - PO 1,000 mg BID RICHARD Administration Zolpidem Tartrate 10 mg 09/18/18 14:17 09/19/18 23:59 Ambien - PO 10 mg HS PRN Administration INSOMNIA Microbiology 09/11/18 19:53 Blood - Peripheral Venous Blood Culture - Final NO GROWTH AFTER 5 DAYS INCUBATION 07/30/19 19:55 Blood - Peripheral Venous Blood Culture - Final NO GROWTH AFTER 5 DAYS INCUBATION 09/12/18 18:07 Urine For Antigen Detection Legionella Antigen - Final 09/12/18 18:07 Urine For Antigen Detection Streptococcus pneumoniae Antigen (M - Final 09/11/18 19:55 Urine - Urine - Catheterized Urine Culture - Final NO GROWTH OBTAINED Condition: Poor - Instructions - Home Medications Comprehensive Discharge Medication List: Ambulatory Orders Alprazolam [Xanax] 0.25 mg PO DAILY 06/15/18 Blood-Glucose Meter [Freestyle Lite Meter] 1 each ACHS 06/15/18 Losartan Potassium [Cozaar -] 50 mg PO DAILY 06/15/18 Pantoprazole Sodium [Protonix -] 40 mg PO DAILY 06/15/18 Zolpidem Tartrate [Ambien] 10 mg PO DAILY 06/15/18 Acetaminophen [Tylenol .Extra-Strength -] 500 mg PO Q6H PRN tablet 06/19/18 Atovaquone [Mepron Oral Solution -] 1,500 mg PO DAILY@0800 #1 bottle 06/19/18 Albuterol Sulfate Inhaler - [Ventolin HFA Inhaler -] 2 puff IH Q6H PRN inhaler 06/25/18 Amlodipine Besylate [Norvasc -] 5 mg PO DAILY tablet 06/25/18 Leflunomide [Arava -] 20 mg PO DAILY #60 tablet 06/25/18 Sulfasalazine [Azulfidine En-Tabs -] 1,000 mg PO BID #120 tablet. 06/25/18 predniSONE [Deltasone -] 15 mg PO BID #60 tablet 06/25/18 traMADol HCL [Ultram -] 50 mg PO Q8H PRN tablet MDD 3 06/25/18 Furosemide [Lasix -] 20 mg PO DAILY #30 tablet 08/29/18
[2018-09-20] MEDS: ONDANSETRON 4 MG/2 ML VIAL IVPB PRN (13:21)
[2018-09-20] MEDS ORDERED: POTASSIUM CHLORIDE TABS 20 MEQ TABLET.ER (FP) PO ONE (14:45)
--- NOTE | 2018-09-20 15:51 | EKG ---
Test Reason : Blood Pressure : / mmHG Vent. Rate : 110 BPM Atrial Rate : 110 BPM P-R Int : 134 ms QRS Dur : 086 ms QT Int : 332 ms P-R-T Axes : 041 036 101 degrees QTc Int : 449 ms SINUS TACHYCARDIA WITH OCCASIONAL PREMATURE VENTRICULAR COMPLEXES POSSIBLE LEFT ATRIAL ENLARGEMENT NONSPECIFIC ST AND T WAVE ABNORMALITY ABNORMAL ECG WHEN COMPARED WITH ECG OF 12-SEP-2018 14:51, PREMATURE VENTRICULAR COMPLEXES ARE NOW PRESENT PREMATURE ATRIAL COMPLEXES ARE NO LONGER PRESENT Confirmed by AILYN MORELAND MD ([id number]) on 09/20/2018 3:50:47 PM Referred By: MAGGI DE LA GARZA Confirmed By:AILYN MORELAND MD
--- NOTE | 2018-09-20 15:56 | PN ---
Progress Note, Physician Chief Complaint: Pneumonia Sepsis Lung Cancer History of Present Illness: Previous notes and events reviewed awake and alert NAD complain of swelling to B/L lower extremity R>L no complaints of chest pain complain of nausea--relieved with zofran noted to be tachycardic--EKG done complain feeling weak - Current Medication List Current Medications: Active Medications Acetaminophen (Tylenol -) 650 mg PO Q4H PRN PRN Reason: FEVER Acetylcysteine (Mucomyst 20 Oral / Inh Use Only*) 200 mg NEB RQID [facility] Last Admin: 09/20/18 11:20 Dose: Not Given Albuterol Sulfate (Ventolin 0.083% Nebulizer Soln -) 1 amp NEB RQID [facility] Last Admin: 09/20/18 11:30 Dose: 1 amp Alprazolam (Xanax -) 0.25 mg PO HS [facility] Last Admin: 09/20/18 00:00 Dose: 0.25 mg Amlodipine Besylate (Norvasc -) 10 mg PO DAILY [facility] Last Admin: 09/20/18 09:44 Dose: 10 mg Atovaquone (Mepron -) 1,500 mg PO DAILY@0800 [facility] Last Admin: 09/20/18 09:44 Dose: 1,500 mg Furosemide (Lasix -) 20 mg PO DAILY [facility] Last Admin: 09/20/18 09:43 Dose: 20 mg Guaifenesin (Robitussin -) 10 ml PO Q6H PRN PRN Reason: COUGH Heparin Sodium (Porcine) (Heparin -) 5,000 unit SQ BID [facility] Last Admin: 09/20/18 09:44 Dose: Not Given Leflunomide (Arava -) 20 mg PO DAILY [facility] Last Admin: 09/20/18 09:45 Dose: 20 mg Losartan Potassium (Cozaar -) 50 mg PO DAILY [facility] Last Admin: 09/20/18 09:43 Dose: 50 mg Ondansetron HCl (Zofran Injection) 8 mg IVPB Q12H PRN PRN Reason: NAUSEA AND/OR VOMITING Last Admin: 09/20/18 13:21 Dose: 8 mg Pantoprazole Sodium (Protonix -) 40 mg PO DAILY [facility] Last Admin: 09/20/18 09:44 Dose: 40 mg Prednisone (Deltasone -) 20 mg PO DAILY [facility] Last Admin: 09/20/18 09:43 Dose: 20 mg Sulfasalazine (Azulfidine En-Tabs -) 1,000 mg PO BID [facility] Last Admin: 09/20/18 09:45 Dose: 1,000 mg Zolpidem Tartrate (Ambien -) 10 mg PO HS PRN PRN Reason: INSOMNIA Last Admin: 09/19/18 23:59 Dose: 10 mg - Objective Vital Signs: Vital Signs Temperature 98.6 F 09/20/18 14:49 Pulse Rate 112 H 09/20/18 14:49 Respiratory Rate 18 09/20/18 14:49 Blood Pressure 99/58 L 09/20/18 14:49 O2 Sat by Pulse Oximetry (%) 99 09/20/18 09:00 Constitutional: Yes: No Distress, Calm, Obese Eyes: Yes: Conjunctiva Clear HENT: Yes: Atraumatic Cardiovascular: Yes: Tachycardia Respiratory: Yes: Regular, Diminished, On Nasal O2 Gastrointestinal: Yes: Normal Bowel Sounds, Soft, Abdomen, Obese Musculoskeletal: Yes: Muscle Weakness Extremities: Yes: WNL Edema: Yes Edema: LLE: 1+, RLE: 1+ Neurological: Yes: Alert, Oriented Psychiatric: Yes: Alert, Oriented Labs: CBC, BMP 09/20/18 06:16 09/20/18 06:16 INR, PTT INR 1.07 (0.83-1.09) 09/11/18 18:00 Microbiology 09/11/18 19:53 Blood - Peripheral Venous Blood Culture - Final NO GROWTH AFTER 5 DAYS INCUBATION 09/11/18 19:55 Blood - Peripheral Venous Blood Culture - Final NO GROWTH AFTER 5 DAYS INCUBATION 09/12/18 18:07 Urine For Antigen Detection Legionella Antigen - Final 09/12/18 18:07 Urine For Antigen Detection Streptococcus pneumoniae Antigen (M - Final 09/11/18 19:55 Urine - Urine - Catheterized Urine Culture - Final NO GROWTH OBTAINED - ....Imaging EKG: Report Reviewed Problem List - Problems (1) Acute on chronic respiratory failure with hypoxemia Assessment/Plan: -Pulm on board -Prednisone -bronchodilators -keep SpO2 >90% -O2 via NC Code(s): J96.21 - ACUTE AND CHRONIC RESPIRATORY FAILURE WITH HYPOXIA (2) Chest pain Assessment/Plan: -resolved -cardiology on board -troponin levels reviewed Code(s): R07.9 - CHEST PAIN, UNSPECIFIED (3) Elevated troponin Assessment/Plan: -troponin 0.13,0.14, 0.15, 0.07 -cardiology on board Code(s): R74.8 - ABNORMAL LEVELS OF OTHER SERUM ENZYMES (4) Lactic acid acidosis Assessment/Plan: -resolved -LA 2.4-->1.5 Code(s): E87.2 - ACIDOSIS (5) Pneumonia Assessment/Plan: -Pulm and ID on board -no leukocytosis -afebrile -observe off antibiotics -bronchodilators -prednisone -keep SpO2 >90% -O2 via NC -BC neg -Urine legionella and strep neg Code(s): J18.9 - PNEUMONIA, UNSPECIFIED ORGANISM (6) Sepsis Assessment/Plan: -Pulm and ID on board -no leukocytosis -afebrile -observe off antibiotics -bronchodilators -prednisone -keep SpO2 >90% -O2 via NC -BC neg -Urine legionella and strep neg -UC neg Code(s): A41.9 - SEPSIS, UNSPECIFIED ORGANISM (7) THIAGO (acute kidney injury) Assessment/Plan: -BUN/Cr 29.9/1.1 -monitor renal function -Renal on board Code(s): N17.9 - ACUTE KIDNEY FAILURE, UNSPECIFIED (8) GERD (gastroesophageal reflux disease) Assessment/Plan: -Pantoprazole Code(s): K21.9 - GASTRO-ESOPHAGEAL REFLUX DISEASE WITHOUT ESOPHAGITIS (9) Stage 4 lung cancer Assessment/Plan: -Oncology on board Code(s): C34.90 - MALIGNANT NEOPLASM OF UNSP PART OF UNSP BRONCHUS OR LUNG (10) HTN (hypertension) Assessment/Plan: -Amlodipine, Losartan -low Na diet Code(s): I10 - ESSENTIAL (PRIMARY) HYPERTENSION (11) Tachycardia Assessment/Plan: -EKG shows sinus tachycardia with occasional PVC -cardiology consult Code(s): R00.0 - TACHYCARDIA, UNSPECIFIED Assessment/Plan see problem list dvt ppx
--- NOTE | 2018-09-20 17:53 | PN ---
Progress Note (short form) - Note Progress Note: Patient seen and examined short of breath/ cough slightle improved AFVSS Cor: RSR, No murmurs, No gallops Lungs: Clear to P&A Abd: Soft, Normal bowel sounds, No organomegaly Ext:No significant edema Labs/meds reviewed A/P Metastatic lung ca on nivolumab LLL infiltrate On antibiotics/ steroids --clinically improved repeat Ct chest--stable disease continue nivolumab post d/c d/c planning
[2018-09-20] MEDS ORDERED: PT OWN MED DRAWER 7, Y5N ONE (21:02)
[2018-09-20] MEDS: ALPRAZolam 0.25 MG TABLET PO SCH ×2 (23:57)
[2018-09-20] MEDS: ZOLPIDEM TARTRATE 5 MG TABLET PO PRN (23:57)
[2018-09-21 06:57] LABS: HEMATOCRIT 28.2 % (32.4-45.2); HEMOGLOBIN 9.1 GM/dL (10.7-15.3); MCHC 32.3 g/dl (32.0-36.0); MEAN CELL VOLUME 89.7 fl (80-96); MEAN PLT VOLUME 7.7 fl (7.5-11.1); PLATELET COUNT 154 K/MM3 (134-434); RBC 3.14 M/mm3 (3.60-5.2); RDW 17.8 % (11.6-15.6); WHITE BLOOD COUNT 9.2 K/mm3 (4.0-10.0)
[2018-09-21 07:20] LABS: ALBUMIN 2.5 g/dl (3.4-5.0); BILIRUBIN,TOTAL 0.8 mg/dL (0.2-1); BLOOD UREA NITROGEN 27.2 mg/dL (7-18); CALCIUM 8.4 mg/dL (8.5-10.1); CREATININE 1.1 mg/dL (0.55-1.3); POTASSIUM 3.6 mmol/L (3.5-5.1); TOT PROT 5.2 g/dl (6.4-8.2)
[2018-09-21] MEDS: ALBUTEROL SO4 0.083% IH SOL 2.5 MG/3 ML VIAL.NEB. NEB SCH ×4 (07:24→20:51)
[2018-09-21] MEDS: ACETYLCYSTEINE 20% 200MG/ML 4 ML VIAL *FOR ORAL / INH USE ONLY NEB SCH ×4 (07:24→20:51)
[2018-09-21] MEDS: LOSARTAN POTASSIUM 50 MG TABLET (FP) PO SCH (09:32)
[2018-09-21] MEDS: predniSONE 20 MG TABLET (UD) PO SCH (09:32)
[2018-09-21] MEDS: amLODIPine BESYLATE 10 MG TABLET (FP) PO SCH (09:32)
[2018-09-21] MEDS: ATOVAQUONE 750 MG/5 ML (UNIT-DOSE PACKAGING) PO SCH (09:32)
[2018-09-21] MEDS: FUROSEMIDE 20 MG TABLET (FP) PO SCH (09:32)
[2018-09-21] MEDS: LEFLUNOMIDE 10 MG TABLET PO SCH (09:33)
[2018-09-21] MEDS: PANTOPRAZOLE 40 MG TABLET (FP) PO SCH (09:33)
[2018-09-21] MEDS: HEPARIN NA (PORCINE) 5,000 UNITS/ML 1ML VIAL SQ SCH ×2 (09:34→21:42)
[2018-09-21] MEDS: ONDANSETRON 4 MG/2 ML VIAL IVPB PRN (09:37)
--- NOTE | 2018-09-21 11:50 | PN ---
Progress Note, Physician Chief Complaint: patient seen and examined complaining of leg swelling cardiology consult ordered yesterday for tachycardia and EKG done currently no chest pain - Current Medication List Current Medications: Active Medications Acetaminophen (Tylenol -) 650 mg PO Q4H PRN PRN Reason: FEVER Acetylcysteine (Mucomyst 20 Oral / Inh Use Only*) 200 mg NEB RQID [facility] Last Admin: 09/21/18 11:10 Dose: Not Given Albuterol Sulfate (Ventolin 0.083% Nebulizer Soln -) 1 amp NEB RQID [facility] Last Admin: 09/21/18 11:10 Dose: Not Given Alprazolam (Xanax -) 0.25 mg PO HS [facility] Last Admin: 09/20/18 23:57 Dose: 0.25 mg Amlodipine Besylate (Norvasc -) 10 mg PO DAILY [facility] Last Admin: 09/21/18 09:32 Dose: 10 mg Atovaquone (Mepron -) 1,500 mg PO DAILY@0800 [facility] Last Admin: 09/21/18 09:32 Dose: 1,500 mg Furosemide (Lasix -) 20 mg PO DAILY [facility] Last Admin: 09/21/18 09:32 Dose: 20 mg Guaifenesin (Robitussin -) 10 ml PO Q6H PRN PRN Reason: COUGH Heparin Sodium (Porcine) (Heparin -) 5,000 unit SQ BID [facility] Last Admin: 09/21/18 09:34 Dose: 5,000 unit Leflunomide (Arava -) 20 mg PO DAILY [facility] Last Admin: 09/21/18 09:33 Dose: 20 mg Losartan Potassium (Cozaar -) 50 mg PO DAILY [facility] Last Admin: 09/21/18 09:32 Dose: 50 mg Ondansetron HCl (Zofran Injection) 8 mg IVPB Q12H PRN PRN Reason: NAUSEA AND/OR VOMITING Last Admin: 09/21/18 09:37 Dose: 8 mg Pantoprazole Sodium (Protonix -) 40 mg PO DAILY [facility] Last Admin: 09/21/18 09:33 Dose: 40 mg Prednisone (Deltasone -) 20 mg PO DAILY [facility] Last Admin: 09/21/18 09:32 Dose: 20 mg Sulfasalazine (Azulfidine En-Tabs -) 1,000 mg PO BID [facility] Last Admin: 09/21/18 09:33 Dose: 1,000 mg Zolpidem Tartrate (Ambien -) 10 mg PO HS PRN PRN Reason: INSOMNIA Last Admin: 09/20/18 23:57 Dose: 10 mg - Objective Vital Signs: Vital Signs Temperature 99 F 09/21/18 10:00 Pulse Rate 112 H 09/21/18 10:00 Respiratory Rate 18 09/21/18 10:00 Blood Pressure 137/84 09/21/18 10:00 O2 Sat by Pulse Oximetry (%) 96 09/21/18 09:00 Constitutional: Yes: Calm Cardiovascular: Yes: Regular Rate and Rhythm, S1, S2 Respiratory: Yes: CTA Bilaterally, On Nasal O2 Gastrointestinal: Yes: Normal Bowel Sounds, Soft Edema: Yes Neurological: Yes: Alert, Oriented Labs: CBC, BMP 09/21/18 06:00 09/21/18 06:00 INR, PTT INR 1.07 (0.83-1.09) 09/11/18 18:00 Problem List - Problems (1) Chest pain Assessment/Plan: with tachycardia yesterday currently pain free check troponin cardiology consulted- Code(s): R07.9 - CHEST PAIN, UNSPECIFIED (2) Acute on chronic respiratory failure with hypoxemia Assessment/Plan: prednsion 20mg daiily oxygen pulm on board Code(s): J96.21 - ACUTE AND CHRONIC RESPIRATORY FAILURE WITH HYPOXIA (3) Pneumonia Assessment/Plan: iv abx- zosyn completed Code(s): J18.9 - PNEUMONIA, UNSPECIFIED ORGANISM (4) THIAGO (acute kidney injury) Assessment/Plan: ivf fluids stop today creatinine improved Code(s): N17.9 - ACUTE KIDNEY FAILURE, UNSPECIFIED (5) Elevated troponin Assessment/Plan: secondary to demand ischemia- will check today labs for downward trend echo left ventricle size and systolic function is normal Code(s): R74.8 - ABNORMAL LEVELS OF OTHER SERUM ENZYMES (6) Leg edema Assessment/Plan: lasix restarted Code(s): R60.0 - LOCALIZED EDEMA (7) Metastatic lung cancer (metastasis from lung to other site) Assessment/Plan: on nivolumab oncology follow up on discharge Code(s): C34.90 - MALIGNANT NEOPLASM OF UNSP PART OF UNSP BRONCHUS OR LUNG
--- NOTE | 2018-09-21 12:45 | PN ---
Progress Note (short form) - Note Progress Note: PULMONARY Breathing better today. +nonproductive cough and wheezing. Vital Signs Period Temp Pulse Resp BP Sys/Medeiros Pulse Ox Last 24 Hr 98.3 F-99 F 98-120 18-18 99-137/58-84 96-99 Gen: mildly tachypneic with speaking Heart: RRR Lung: scattered wheezes Abd: soft, nontender Ext: + edema CBC, BMP 09/21/18 06:00 09/21/18 06:00 Active Medications Acetaminophen (Tylenol -) 650 mg PO Q4H PRN PRN Reason: FEVER Acetylcysteine (Mucomyst 20 Oral / Inh Use Only*) 200 mg NEB RQID [facility] Last Admin: 09/21/18 11:10 Dose: Not Given Albuterol Sulfate (Ventolin 0.083% Nebulizer Soln -) 1 amp NEB RQID [facility] Last Admin: 09/21/18 11:10 Dose: Not Given Alprazolam (Xanax -) 0.25 mg PO HS [facility] Last Admin: 09/20/18 23:57 Dose: 0.25 mg Amlodipine Besylate (Norvasc -) 10 mg PO DAILY [facility] Last Admin: 09/21/18 09:32 Dose: 10 mg Atovaquone (Mepron -) 1,500 mg PO DAILY@0800 [facility] Last Admin: 09/21/18 09:32 Dose: 1,500 mg Furosemide (Lasix -) 20 mg PO DAILY [facility] Last Admin: 09/21/18 09:32 Dose: 20 mg Guaifenesin (Robitussin -) 10 ml PO Q6H PRN PRN Reason: COUGH Heparin Sodium (Porcine) (Heparin -) 5,000 unit SQ BID [facility] Last Admin: 09/21/18 09:34 Dose: 5,000 unit Leflunomide (Arava -) 20 mg PO DAILY [facility] Last Admin: 09/21/18 09:33 Dose: 20 mg Losartan Potassium (Cozaar -) 50 mg PO DAILY [facility] Last Admin: 09/21/18 09:32 Dose: 50 mg Ondansetron HCl (Zofran Injection) 8 mg IVPB Q12H PRN PRN Reason: NAUSEA AND/OR VOMITING Last Admin: 09/21/18 09:37 Dose: 8 mg Pantoprazole Sodium (Protonix -) 40 mg PO DAILY [facility] Last Admin: 09/21/18 09:33 Dose: 40 mg Prednisone (Deltasone -) 20 mg PO DAILY [facility] Last Admin: 09/21/18 09:32 Dose: 20 mg Sulfasalazine (Azulfidine En-Tabs -) 1,000 mg PO BID [facility] Last Admin: 09/21/18 09:33 Dose: 1,000 mg Zolpidem Tartrate (Ambien -) 10 mg PO HS PRN PRN Reason: INSOMNIA Last Admin: 09/20/18 23:57 Dose: 10 mg A/P Acute on Chronic Hypoxic Respiratory Failure r/o Pneumonia Sepsis Metastatic NSCLC (Squamous Cell) Acute COPD EXacerbation +Troponins likely Demand Ischemia Acute Kidney Injury Lactic Acidosis RA - completed antibiotics - monitor urine output, creatinine - prednisone taper - inhaled bronchodilators - cough suppressant - O2 to keep SpO2 >90% - DVT prophylaxis
[2018-09-21] MEDS ORDERED: PT OWN MED DRAWER 7, Y5N ONE (21:40)
[2018-09-22] MEDS: ACETYLCYSTEINE 20% 200MG/ML 4 ML VIAL *FOR ORAL / INH USE ONLY NEB SCH ×4 (08:05→21:09)
[2018-09-22] MEDS: ALBUTEROL SO4 0.083% IH SOL 2.5 MG/3 ML VIAL.NEB. NEB SCH ×5 (08:06→21:08)
--- NOTE | 2018-09-22 09:06 | PN ---
Progress Note (short form) - Note Progress Note: PULMONARY Breathing better today. Less cough and wheezing. Vital Signs Period Temp Pulse Resp BP Sys/Medeiros Pulse Ox Last 24 Hr 97.9 F-99.3 F 78-113 18-20 98-143/57-84 96 Gen: mildly tachypneic with speaking Heart: RRR Lung: scattered wheezes Abd: soft, nontender Ext: + edema CBC, BMP 09/21/18 06:00 09/21/18 06:00 Active Medications Acetaminophen (Tylenol -) 650 mg PO Q4H PRN PRN Reason: FEVER Acetylcysteine (Mucomyst 20 Oral / Inh Use Only*) 200 mg NEB RQID [facility] Last Admin: 09/22/18 08:05 Dose: Not Given Albuterol Sulfate (Ventolin 0.083% Nebulizer Soln -) 1 amp NEB RQID [facility] Last Admin: 09/22/18 08:07 Dose: 1 amp Alprazolam (Xanax -) 0.25 mg PO HS [facility] Last Admin: 09/22/18 00:00 Dose: 0.25 mg Amlodipine Besylate (Norvasc -) 10 mg PO DAILY [facility] Last Admin: 09/21/18 09:32 Dose: 10 mg Atovaquone (Mepron -) 1,500 mg PO DAILY@0800 [facility] Last Admin: 09/21/18 09:32 Dose: 1,500 mg Furosemide (Lasix -) 20 mg PO DAILY [facility] Last Admin: 09/21/18 09:32 Dose: 20 mg Guaifenesin (Robitussin -) 10 ml PO Q6H PRN PRN Reason: COUGH Heparin Sodium (Porcine) (Heparin -) 5,000 unit SQ BID [facility] Last Admin: 09/21/18 21:42 Dose: 5,000 unit Leflunomide (Arava -) 20 mg PO DAILY [facility] Last Admin: 09/21/18 09:33 Dose: 20 mg Losartan Potassium (Cozaar -) 50 mg PO DAILY [facility] Last Admin: 09/21/18 09:32 Dose: 50 mg Ondansetron HCl (Zofran Injection) 8 mg IVPB Q12H PRN PRN Reason: NAUSEA AND/OR VOMITING Last Admin: 09/21/18 09:37 Dose: 8 mg Pantoprazole Sodium (Protonix -) 40 mg PO DAILY [facility] Last Admin: 09/21/18 09:33 Dose: 40 mg Prednisone (Deltasone -) 20 mg PO DAILY [facility] Last Admin: 09/21/18 09:32 Dose: 20 mg Sulfasalazine (Azulfidine En-Tabs -) 1,000 mg PO BID [facility] Last Admin: 09/21/18 21:41 Dose: 1,000 mg Zolpidem Tartrate (Ambien -) 10 mg PO HS PRN PRN Reason: INSOMNIA Last Admin: 09/22/18 00:00 Dose: 10 mg A/P Acute on Chronic Hypoxic Respiratory Failure r/o Pneumonia Sepsis Metastatic NSCLC (Squamous Cell) Acute COPD EXacerbation +Troponins likely Demand Ischemia Acute Kidney Injury Lactic Acidosis RA - completed antibiotics - monitor urine output, creatinine - prednisone taper - inhaled bronchodilators - cough suppressant - O2 to keep SpO2 >90% - DVT prophylaxis
[2018-09-22] MEDS: HEPARIN NA (PORCINE) 5,000 UNITS/ML 1ML VIAL SQ SCH (10:30)
[2018-09-22] MEDS: LEFLUNOMIDE 10 MG TABLET PO SCH (10:30)
[2018-09-22] MEDS: PANTOPRAZOLE 40 MG TABLET (FP) PO SCH (10:30)
[2018-09-22] MEDS: ATOVAQUONE 750 MG/5 ML (UNIT-DOSE PACKAGING) PO SCH (10:30)
[2018-09-22] MEDS: predniSONE 20 MG TABLET (UD) PO SCH (10:30)
[2018-09-22] MEDS: amLODIPine BESYLATE 10 MG TABLET (FP) PO SCH (10:31)
[2018-09-22] MEDS: LOSARTAN POTASSIUM 50 MG TABLET (FP) PO SCH (10:31)
[2018-09-22] MEDS: FUROSEMIDE 20 MG TABLET (FP) PO SCH (10:31)
[2018-09-22 12:02] LABS: BASO % 0.2 % (0-2.0); EOS % 0.4 % (0-4.5); HEMATOCRIT 27.4 % (32.4-45.2); HEMOGLOBIN 8.9 GM/dL (10.7-15.3); LYMPH % 13.3 % (8-40); MCH 29.1 pg (25.7-33.7); MCHC 32.5 g/dl (32.0-36.0); MEAN CELL VOLUME 89.3 fl (80-96); MONO % 7.7 % (3.8-10.2); NEUT % 78.4 % (42.8-82.8); PLATELET COUNT 154 K/MM3 (134-434); RBC 3.06 M/mm3 (3.60-5.2); RDW 18.2 % (11.6-15.6); WHITE BLOOD COUNT 9.7 K/mm3 (4.0-10.0)
[2018-09-22 12:48] LABS: ALBUMIN 2.4 g/dl (3.4-5.0); BILIRUBIN,TOTAL 0.8 mg/dL (0.2-1); BLOOD UREA NITROGEN 22.8 mg/dL (7-18); CALCIUM 8.4 mg/dL (8.5-10.1); CREATININE 1.1 mg/dL (0.55-1.3); POTASSIUM 3.5 mmol/L (3.5-5.1); TOT PROT 5.4 g/dl (6.4-8.2)
[2018-09-22 14:32] LABS: ANISOCYTOSIS 0; HELMET CELLS 0; HOWELL-JOLLY BODIES 0; MACROCYTOSIS 0; OVALOCYTE 0; ROULEAU 0; SICKELED CELLS 0; TARGET CELLS 0; TEAR DROP CELLS 0; TOXIC GRANULATION 0
[2018-09-22 14:37] LABS: PLATELET ESTIMATE ADEQUATE
[2018-09-22] MEDS ORDERED: PORTA CATH FLUSH 10 ML IVPUSH ONE (15:52)
--- NOTE | 2018-09-22 16:41 | PN ---
Progress Note, Physician Chief Complaint: Pneumonia Sepsis Lung Cancer History of Present Illness: Previous notes and events reviewed awake and alert NAD complain of swelling to B/L lower extremity R>L no complaints of chest pain fever spike 100.1F--BC and UC sent - Current Medication List Current Medications: Active Medications Acetaminophen (Tylenol -) 650 mg PO Q4H PRN PRN Reason: FEVER Last Admin: 09/22/18 11:09 Dose: 650 mg Acetylcysteine (Mucomyst 20 Oral / Inh Use Only*) 200 mg NEB RQID [facility] Last Admin: 09/22/18 15:37 Dose: Not Given Albuterol Sulfate (Ventolin 0.083% Nebulizer Soln -) 1 amp NEB RQID [facility] Last Admin: 09/22/18 15:37 Dose: 1 amp Alprazolam (Xanax -) 0.25 mg PO HS [facility] Last Admin: 09/22/18 00:00 Dose: 0.25 mg Amlodipine Besylate (Norvasc -) 10 mg PO DAILY [facility] Last Admin: 09/22/18 10:31 Dose: Not Given Atovaquone (Mepron -) 1,500 mg PO DAILY@0800 [facility] Last Admin: 09/22/18 10:30 Dose: 1,500 mg Furosemide (Lasix -) 20 mg PO DAILY [facility] Last Admin: 09/22/18 10:31 Dose: Not Given Guaifenesin (Robitussin -) 10 ml PO Q6H PRN PRN Reason: COUGH Heparin Sodium (Porcine) (Heparin -) 5,000 unit SQ BID [facility] Last Admin: 09/22/18 10:30 Dose: 5,000 unit Leflunomide (Arava -) 20 mg PO DAILY [facility] Last Admin: 09/22/18 10:30 Dose: 20 mg Losartan Potassium (Cozaar -) 50 mg PO DAILY [facility] Last Admin: 09/22/18 10:31 Dose: Not Given Ondansetron HCl (Zofran Injection) 8 mg IVPB Q12H PRN PRN Reason: NAUSEA AND/OR VOMITING Last Admin: 09/21/18 09:37 Dose: 8 mg Pantoprazole Sodium (Protonix -) 40 mg PO DAILY [facility] Last Admin: 09/22/18 10:30 Dose: 40 mg Prednisone (Deltasone -) 20 mg PO DAILY [facility] Last Admin: 09/22/18 10:30 Dose: 20 mg Sulfasalazine (Azulfidine En-Tabs -) 1,000 mg PO BID [facility] Last Admin: 09/22/18 10:30 Dose: 1,000 mg Zolpidem Tartrate (Ambien -) 10 mg PO HS PRN PRN Reason: INSOMNIA Last Admin: 09/22/18 00:00 Dose: 10 mg - Objective Vital Signs: Vital Signs Temperature 99.8 F H 09/22/18 13:31 Pulse Rate 110 H 09/22/18 13:31 Respiratory Rate 20 09/22/18 13:31 Blood Pressure 109/60 09/22/18 13:31 O2 Sat by Pulse Oximetry (%) 96 09/21/18 21:00 Constitutional: Yes: No Distress, Calm Eyes: Yes: Conjunctiva Clear HENT: Yes: Atraumatic Cardiovascular: Yes: Regular Rate and Rhythm Respiratory: Yes: Regular, On Nasal O2, Rhonchi Gastrointestinal: Yes: Normal Bowel Sounds, Soft Musculoskeletal: Yes: Muscle Weakness Extremities: Yes: WNL Edema: No Neurological: Yes: Alert, Oriented Psychiatric: Yes: Alert, Oriented Labs: CBC, BMP 09/22/18 11:25 09/22/18 11:25 INR, PTT INR 1.07 (0.83-1.09) 09/11/18 18:00 Microbiology 09/11/18 19:53 Blood - Peripheral Venous Blood Culture - Final NO GROWTH AFTER 5 DAYS INCUBATION 09/11/18 19:55 Blood - Peripheral Venous Blood Culture - Final NO GROWTH AFTER 5 DAYS INCUBATION 09/12/18 18:07 Urine For Antigen Detection Legionella Antigen - Final 09/12/18 18:07 Urine For Antigen Detection Streptococcus pneumoniae Antigen (M - Final 09/11/18 19:55 Urine - Urine - Catheterized Urine Culture - Final NO GROWTH OBTAINED Problem List - Problems (1) Acute on chronic respiratory failure with hypoxemia Assessment/Plan: -Pulm on board -Prednisone -bronchodilators -keep SpO2 >90% -O2 via NC Code(s): J96.21 - ACUTE AND CHRONIC RESPIRATORY FAILURE WITH HYPOXIA (2) Chest pain Assessment/Plan: -resolved -cardiology on board -troponin levels reviewed Code(s): R07.9 - CHEST PAIN, UNSPECIFIED (3) Elevated troponin Assessment/Plan: -troponin 0.13,0.14, 0.15, 0.07 -cardiology on board Code(s): R74.8 - ABNORMAL LEVELS OF OTHER SERUM ENZYMES (4) Lactic acid acidosis Assessment/Plan: -resolved -LA 2.4-->1.5 Code(s): E87.2 - ACIDOSIS (5) Pneumonia Assessment/Plan: -Pulm and ID on board -no leukocytosis -afebrile -observe off antibiotics -bronchodilators -prednisone -keep SpO2 >90% -O2 via NC -BC neg -Urine legionella and strep neg Code(s): J18.9 - PNEUMONIA, UNSPECIFIED ORGANISM (6) Sepsis Assessment/Plan: -Pulm and ID on board -no leukocytosis -afebrile -observe off antibiotics -bronchodilators -prednisone -keep SpO2 >90% -O2 via NC -BC neg -Urine legionella and strep neg -UC neg -spiked fever 100.1F-resent BC and UC Code(s): A41.9 - SEPSIS, UNSPECIFIED ORGANISM (7) THIAGO (acute kidney injury) Assessment/Plan: -BUN/Cr 22.8/1.1 -monitor renal function -Renal on board Code(s): N17.9 - ACUTE KIDNEY FAILURE, UNSPECIFIED (8) GERD (gastroesophageal reflux disease) Assessment/Plan: -Pantoprazole Code(s): K21.9 - GASTRO-ESOPHAGEAL REFLUX DISEASE WITHOUT ESOPHAGITIS (9) Stage 4 lung cancer Assessment/Plan: -Oncology on board Code(s): C34.90 - MALIGNANT NEOPLASM OF UNSP PART OF UNSP BRONCHUS OR LUNG (10) HTN (hypertension) Assessment/Plan: -Amlodipine, Losartan -low Na diet Code(s): I10 - ESSENTIAL (PRIMARY) HYPERTENSION (11) Tachycardia Assessment/Plan: -EKG shows sinus tachycardia with occasional PVC -cardiology consult Code(s): R00.0 - TACHYCARDIA, UNSPECIFIED Assessment/Plan see problem list dvt ppx
--- NOTE | 2018-09-22 16:53 | PN ---
Progress Note, Physician Chief Complaint: No new complaints History of Present Illness: This is a 73 year old female with a history of stage IV lung Ca s/p partial RUL lobectomy currently on immunotherapy (previous surgery and radiation), HTN, and RA. She presents to the ED with chest discomfort x three hours. The chest pain occurred while sitting and was substernal and non radiating. It became worse with a deep breath and was assciated with SOB. CXR reveals bialteral lung masses. EKG sinus tachycardia at 115 BMP with normal intervals, normal axis, and NSSTTW changes. 09/22/18 Remains with tachycardia - Current Medication List Current Medications: Active Medications Acetaminophen (Tylenol -) 650 mg PO Q4H PRN PRN Reason: FEVER Last Admin: 09/22/18 11:09 Dose: 650 mg Acetylcysteine (Mucomyst 20 Oral / Inh Use Only*) 200 mg NEB RQID [facility] Last Admin: 09/22/18 15:37 Dose: Not Given Albuterol Sulfate (Ventolin 0.083% Nebulizer Soln -) 1 amp NEB RQID [facility] Last Admin: 09/22/18 15:37 Dose: 1 amp Alprazolam (Xanax -) 0.25 mg PO HS [facility] Last Admin: 09/22/18 00:00 Dose: 0.25 mg Amlodipine Besylate (Norvasc -) 10 mg PO DAILY [facility] Last Admin: 09/22/18 10:31 Dose: Not Given Atovaquone (Mepron -) 1,500 mg PO DAILY@0800 [facility] Last Admin: 09/22/18 10:30 Dose: 1,500 mg Furosemide (Lasix -) 20 mg PO DAILY [facility] Last Admin: 09/22/18 10:31 Dose: Not Given Guaifenesin (Robitussin -) 10 ml PO Q6H PRN PRN Reason: COUGH Heparin Sodium (Porcine) (Heparin -) 5,000 unit SQ BID [facility] Last Admin: 09/22/18 10:30 Dose: 5,000 unit Leflunomide (Arava -) 20 mg PO DAILY [facility] Last Admin: 09/22/18 10:30 Dose: 20 mg Losartan Potassium (Cozaar -) 50 mg PO DAILY [facility] Last Admin: 09/22/18 10:31 Dose: Not Given Ondansetron HCl (Zofran Injection) 8 mg IVPB Q12H PRN PRN Reason: NAUSEA AND/OR VOMITING Last Admin: 09/21/18 09:37 Dose: 8 mg Pantoprazole Sodium (Protonix -) 40 mg PO DAILY [facility] Last Admin: 09/22/18 10:30 Dose: 40 mg Prednisone (Deltasone -) 20 mg PO DAILY [facility] Last Admin: 09/22/18 10:30 Dose: 20 mg Sulfasalazine (Azulfidine En-Tabs -) 1,000 mg PO BID [facility] Last Admin: 09/22/18 10:30 Dose: 1,000 mg Zolpidem Tartrate (Ambien -) 10 mg PO HS PRN PRN Reason: INSOMNIA Last Admin: 09/22/18 00:00 Dose: 10 mg - Objective Vital Signs: Vital Signs Temperature 99.8 F H 09/22/18 13:31 Pulse Rate 110 H 09/22/18 13:31 Respiratory Rate 20 09/22/18 13:31 Blood Pressure 109/60 09/22/18 13:31 O2 Sat by Pulse Oximetry (%) 96 09/21/18 21:00 Constitutional: Yes: No Distress Eyes: Yes: WNL HENT: Yes: WNL Neck: Yes: WNL Cardiovascular: Yes: Regular Rate and Rhythm, Tachycardia, S1, S2 Respiratory: Yes: CTA Bilaterally Gastrointestinal: Yes: Soft Extremities: Yes: WNL Edema: No Neurological: Yes: Alert, Oriented Labs: CBC, BMP 09/22/18 11:25 09/22/18 11:25 INR, PTT INR 1.07 (0.83-1.09) 09/11/18 18:00 Assessment/Plan 73 year old female with a history of stage IV lung Ca s/p partial RUL lobectomy currently on immunotherapy (previous surgery and radiation), HTN, and RA. She presents to the ED with chest discomfort x three hours. The chest pain occurred while sitting and was substernal and non radiating. It became worse with a deep breath and was assciated with SOB. CXR reveals bialteral lung masses. EKG sinus tachycardia at 115 BMP with normal intervals, normal axis, and NSSTTW changes. Remains with tachycardia HR 110 BPM Low grade fever earlier today HCT 27% The tachycardia is a reactive sinus tachycardia, not a primary arrhythmia Therefore would not artificially slow the rhythm with beta blockers Continue current treatments for BP Continue to evaluate for fevers, anemia, pain, and hypoxia Would not advise invasive cardiac testing given entire clinical picture
--- NOTE | 2018-09-22 16:55 | PN ---
Progress Note, Physician History of Present Illness: Had palpitations earlier today. Temp 100.1. Currently feels well. No complaints. Wants to go home - Current Medication List Current Medications: Active Medications Acetaminophen (Tylenol -) 650 mg PO Q4H PRN PRN Reason: FEVER Last Admin: 09/22/18 11:09 Dose: 650 mg Acetylcysteine (Mucomyst 20 Oral / Inh Use Only*) 200 mg NEB RQID [facility] Last Admin: 09/22/18 15:37 Dose: Not Given Albuterol Sulfate (Ventolin 0.083% Nebulizer Soln -) 1 amp NEB RQID [facility] Last Admin: 09/22/18 15:37 Dose: 1 amp Alprazolam (Xanax -) 0.25 mg PO HS [facility] Last Admin: 09/22/18 00:00 Dose: 0.25 mg Amlodipine Besylate (Norvasc -) 10 mg PO DAILY [facility] Last Admin: 09/22/18 10:31 Dose: Not Given Atovaquone (Mepron -) 1,500 mg PO DAILY@0800 [facility] Last Admin: 09/22/18 10:30 Dose: 1,500 mg Furosemide (Lasix -) 20 mg PO DAILY [facility] Last Admin: 09/22/18 10:31 Dose: Not Given Guaifenesin (Robitussin -) 10 ml PO Q6H PRN PRN Reason: COUGH Heparin Sodium (Porcine) (Heparin -) 5,000 unit SQ BID [facility] Last Admin: 09/22/18 10:30 Dose: 5,000 unit Leflunomide (Arava -) 20 mg PO DAILY [facility] Last Admin: 09/22/18 10:30 Dose: 20 mg Losartan Potassium (Cozaar -) 50 mg PO DAILY [facility] Last Admin: 09/22/18 10:31 Dose: Not Given Ondansetron HCl (Zofran Injection) 8 mg IVPB Q12H PRN PRN Reason: NAUSEA AND/OR VOMITING Last Admin: 09/21/18 09:37 Dose: 8 mg Pantoprazole Sodium (Protonix -) 40 mg PO DAILY [facility] Last Admin: 09/22/18 10:30 Dose: 40 mg Prednisone (Deltasone -) 20 mg PO DAILY [facility] Last Admin: 09/22/18 10:30 Dose: 20 mg Sulfasalazine (Azulfidine En-Tabs -) 1,000 mg PO BID [facility] Last Admin: 09/22/18 10:30 Dose: 1,000 mg Zolpidem Tartrate (Ambien -) 10 mg PO HS PRN PRN Reason: INSOMNIA Last Admin: 09/22/18 00:00 Dose: 10 mg - Objective Vital Signs: Vital Signs Temperature 99.8 F H 09/22/18 13:31 Pulse Rate 110 H 09/22/18 13:31 Respiratory Rate 20 09/22/18 13:31 Blood Pressure 109/60 09/22/18 13:31 O2 Sat by Pulse Oximetry (%) 96 09/21/18 21:00 Constitutional: Yes: No Distress Cardiovascular: Yes: Regular Rate and Rhythm Respiratory: Yes: Regular, CTA Bilaterally Gastrointestinal: Yes: Soft. No: Distention Edema: No Labs: CBC, BMP 09/22/18 11:25 09/22/18 11:25 INR, PTT INR 1.07 (0.83-1.09) 09/11/18 18:00 Assessment/Plan 73F with metastatic ca on nivolumab admitted with pneumonia. CT chest on admission with stable metastatic disease, small b/l pleural effusions (R>L). No clear consolidation. s/p Abx. THIAGO resolved. Feeling better. Low grade temp today 100.1. Blood, urine cx sent.
[2018-09-22] MEDS ORDERED: PT OWN MED DRAWER 7, Y5N ONE (21:08)
[2018-09-22] MEDS: ALPRAZolam 0.25 MG TABLET PO SCH ×2 (21:50)
[2018-09-22] MEDS: ZOLPIDEM TARTRATE 5 MG TABLET PO PRN ×2 (21:51)
[2018-09-23] MEDS: HEPARIN NA (PORCINE) 5,000 UNITS/ML 1ML VIAL SQ SCH ×3 (01:49→21:43)
[2018-09-23] MEDS: ACETYLCYSTEINE 20% 200MG/ML 4 ML VIAL *FOR ORAL / INH USE ONLY NEB SCH ×4 (07:30→19:46)
[2018-09-23] MEDS: ALBUTEROL SO4 0.083% IH SOL 2.5 MG/3 ML VIAL.NEB. NEB SCH ×2 (07:30→11:55)
[2018-09-23 07:46] LABS: HEMATOCRIT 25.7 % (32.4-45.2); HEMOGLOBIN 8.5 GM/dL (10.7-15.3); MCH 29.2 pg (25.7-33.7); MEAN CELL VOLUME 88.6 fl (80-96); MEAN PLT VOLUME 7.8 fl (7.5-11.1); PLATELET COUNT 148 K/MM3 (134-434); RDW 17.8 % (11.6-15.6); WHITE BLOOD COUNT 9.4 K/mm3 (4.0-10.0)
[2018-09-23 08:26] LABS: ALBUMIN 2.3 g/dl (3.4-5.0); BILIRUBIN,TOTAL 0.8 mg/dL (0.2-1); BLOOD UREA NITROGEN 19.3 mg/dL (7-18); CALCIUM 8.3 mg/dL (8.5-10.1); CREATININE 1.1 mg/dL (0.55-1.3); POTASSIUM 3.6 mmol/L (3.5-5.1); TOT PROT 5.3 g/dl (6.4-8.2)
--- NOTE | 2018-09-23 09:10 | PN ---
Progress Note (short form) - Note Progress Note: PULMONARY Breathing worse today. Low grade temp yesterday, recultured. Vital Signs Period Temp Pulse Resp BP Sys/Medeiros Pulse Ox Last 24 Hr 97.8 F-100.1 F 100-117 20-20 109-156/60-81 96 Gen: more tachypneic with speaking Heart: RRR Lung: scattered wheezes Abd: soft, nontender Ext: + edema CBC, BMP 09/23/18 06:00 09/23/18 07:12 Active Medications Acetaminophen (Tylenol -) 650 mg PO Q4H PRN PRN Reason: FEVER Last Admin: 09/22/18 11:09 Dose: 650 mg Acetylcysteine (Mucomyst 20 Oral / Inh Use Only*) 200 mg NEB RQID [facility] Last Admin: 09/23/18 07:30 Dose: Not Given Albuterol Sulfate (Ventolin 0.083% Nebulizer Soln -) 1 amp NEB RQID [facility] Last Admin: 09/23/18 07:30 Dose: 1 amp Alprazolam (Xanax -) 0.25 mg PO HS [facility] Last Admin: 09/22/18 21:50 Dose: 0.25 mg Amlodipine Besylate (Norvasc -) 10 mg PO DAILY [facility] Last Admin: 09/22/18 10:31 Dose: Not Given Atovaquone (Mepron -) 1,500 mg PO DAILY@0800 [facility] Last Admin: 09/22/18 10:30 Dose: 1,500 mg Furosemide (Lasix -) 20 mg PO DAILY [facility] Last Admin: 09/22/18 10:31 Dose: Not Given Guaifenesin (Robitussin -) 10 ml PO Q6H PRN PRN Reason: COUGH Heparin Sodium (Porcine) (Heparin -) 5,000 unit SQ BID [facility] Last Admin: 09/23/18 01:49 Dose: Not Given Leflunomide (Arava -) 20 mg PO DAILY [facility] Last Admin: 09/22/18 10:30 Dose: 20 mg Losartan Potassium (Cozaar -) 50 mg PO DAILY [facility] Last Admin: 09/22/18 10:31 Dose: Not Given Ondansetron HCl (Zofran Injection) 8 mg IVPB Q12H PRN PRN Reason: NAUSEA AND/OR VOMITING Last Admin: 09/21/18 09:37 Dose: 8 mg Pantoprazole Sodium (Protonix -) 40 mg PO DAILY [facility] Last Admin: 09/22/18 10:30 Dose: 40 mg Prednisone (Deltasone -) 20 mg PO DAILY [facility] Last Admin: 09/22/18 10:30 Dose: 20 mg Sulfasalazine (Azulfidine En-Tabs -) 1,000 mg PO BID [facility] Last Admin: 09/22/18 21:50 Dose: 1,000 mg Zolpidem Tartrate (Ambien -) 10 mg PO HS PRN PRN Reason: INSOMNIA Last Admin: 09/22/18 21:51 Dose: 10 mg A/P Acute on Chronic Hypoxic Respiratory Failure r/o Pneumonia Sepsis Metastatic NSCLC (Squamous Cell) Acute COPD EXacerbation +Troponins likely Demand Ischemia Acute Kidney Injury Lactic Acidosis RA - completed antibiotics - monitor urine output, creatinine - will restart IV medrol, reassess tomorrow - inhaled bronchodilators - cough suppressant - O2 to keep SpO2 >90% - DVT prophylaxis
[2018-09-23] MEDS ORDERED: PT OWN MED DRAWER 7, Y5N ONE (09:38)
[2018-09-23] MEDS: methylPREDNISolone NA SUCC 40 MG/1 ML VIAL IVPUSH SCH ×2 (09:45→17:47)
[2018-09-23] MEDS: PANTOPRAZOLE 40 MG TABLET (FP) PO SCH (09:47)
[2018-09-23] MEDS: FUROSEMIDE 20 MG TABLET (FP) PO SCH (09:47)
[2018-09-23] MEDS: amLODIPine BESYLATE 10 MG TABLET (FP) PO SCH (09:47)
[2018-09-23] MEDS: LOSARTAN POTASSIUM 50 MG TABLET (FP) PO SCH (09:47)
[2018-09-23] MEDS: ATOVAQUONE 750 MG/5 ML (UNIT-DOSE PACKAGING) PO SCH (09:48)
[2018-09-23] MEDS: LEFLUNOMIDE 10 MG TABLET PO SCH (09:48)
[2018-09-23] MEDS: ONDANSETRON 4 MG/2 ML VIAL IVPB PRN (13:00)
--- NOTE | 2018-09-23 14:26 | PN ---
Progress Note, Physician Chief Complaint: Pneumonia Sepsis Lung Cancer History of Present Illness: Previous notes and events reviewed awake and alert NAD complain of swelling to B/L lower extremity R>L no complaints of chest pain low grade temp 99F during night UC prelim positive complain of dyspnea last night - Current Medication List Current Medications: Active Medications Acetaminophen (Tylenol -) 650 mg PO Q4H PRN PRN Reason: FEVER Last Admin: 09/22/18 11:09 Dose: 650 mg Acetylcysteine (Mucomyst 20 Oral / Inh Use Only*) 200 mg NEB RQID COUNT INCLUDES THE [facility] Last Admin: 09/23/18 11:55 Dose: Not Given Albuterol Sulfate (Ventolin 0.083% Nebulizer Soln -) 1 amp NEB RQID COUNT INCLUDES THE [facility] Last Admin: 09/23/18 11:55 Dose: 1 amp Alprazolam (Xanax -) 0.25 mg PO HS COUNT INCLUDES THE [facility] Last Admin: 09/22/18 21:50 Dose: 0.25 mg Amlodipine Besylate (Norvasc -) 10 mg PO DAILY COUNT INCLUDES THE [facility] Last Admin: 09/23/18 09:47 Dose: 10 mg Atovaquone (Mepron -) 1,500 mg PO DAILY@0800 COUNT INCLUDES THE [facility] Last Admin: 09/23/18 09:48 Dose: 1,500 mg Furosemide (Lasix -) 20 mg PO DAILY COUNT INCLUDES THE [facility] Last Admin: 09/23/18 09:47 Dose: 20 mg Guaifenesin (Robitussin -) 10 ml PO Q6H PRN PRN Reason: COUGH Heparin Sodium (Porcine) (Heparin -) 5,000 unit SQ BID COUNT INCLUDES THE [facility] Last Admin: 09/23/18 09:47 Dose: 5,000 unit Leflunomide (Arava -) 20 mg PO DAILY COUNT INCLUDES THE [facility] Last Admin: 09/23/18 09:48 Dose: 20 mg Losartan Potassium (Cozaar -) 50 mg PO DAILY COUNT INCLUDES THE [facility] Last Admin: 09/23/18 09:47 Dose: 50 mg Methylprednisolone Sodium Succinate (Solu-Medrol -) 40 mg IVPUSH Q8H-IV COUNT INCLUDES THE [facility] Ondansetron HCl (Zofran Injection) 8 mg IVPB Q12H PRN PRN Reason: NAUSEA AND/OR VOMITING Last Admin: 09/23/18 13:00 Dose: 8 mg Pantoprazole Sodium (Protonix -) 40 mg PO DAILY COUNT INCLUDES THE [facility] Last Admin: 09/23/18 09:47 Dose: 40 mg Sulfasalazine (Azulfidine En-Tabs -) 1,000 mg PO BID RICHARD Last Admin: 09/23/18 09:48 Dose: 1,000 mg Zolpidem Tartrate (Ambien -) 10 mg PO HS PRN PRN Reason: INSOMNIA Last Admin: 09/22/18 21:51 Dose: 10 mg - Objective Vital Signs: Vital Signs Temperature 98.5 F 09/23/18 05:00 Pulse Rate 117 H 09/23/18 05:00 Respiratory Rate 20 09/23/18 05:00 Blood Pressure 156/64 09/23/18 05:00 O2 Sat by Pulse Oximetry (%) 96 09/22/18 21:00 Constitutional: Yes: No Distress, Calm Eyes: Yes: Conjunctiva Clear HENT: Yes: Atraumatic Cardiovascular: Yes: Tachycardia Respiratory: Yes: Regular, Diminished, On Nasal O2 Gastrointestinal: Yes: Normal Bowel Sounds, Soft, Abdomen, Obese Musculoskeletal: Yes: Muscle Weakness Extremities: Yes: WNL Edema: Yes Edema: LLE: 1+, RLE: 1+ Neurological: Yes: Alert, Oriented Psychiatric: Yes: Alert, Oriented Labs: CBC, BMP 09/23/18 06:00 09/23/18 07:12 INR, PTT INR 1.07 (0.83-1.09) 09/11/18 18:00 Microbiology 09/22/18 11:30 Blood - Peripheral Venous Blood Culture - Preliminary NO GROWTH OBTAINED AFTER 24 HOURS, INCUBATION TO CONTINUE FOR 4 DAYS. 09/22/18 11:25 Blood - Peripheral Venous Blood Culture - Preliminary NO GROWTH OBTAINED AFTER 24 HOURS, INCUBATION TO CONTINUE FOR 4 DAYS. 09/22/18 12:40 Urine - Urine Clean Catch Urine Culture - Preliminary Group D Strep Or Entero Coccus 09/11/18 19:53 Blood - Peripheral Venous Blood Culture - Final NO GROWTH AFTER 5 DAYS INCUBATION 09/11/18 19:55 Blood - Peripheral Venous Blood Culture - Final NO GROWTH AFTER 5 DAYS INCUBATION 09/12/18 18:07 Urine For Antigen Detection Legionella Antigen - Final 09/12/18 18:07 Urine For Antigen Detection Streptococcus pneumoniae Antigen (M - Final 09/11/18 19:55 Urine - Urine - Catheterized Urine Culture - Final NO GROWTH OBTAINED Problem List - Problems (1) Acute on chronic respiratory failure with hypoxemia Assessment/Plan: -Pulm on board -restart IV Medrol -bronchodilators -keep SpO2 >90% -O2 via NC Code(s): J96.21 - ACUTE AND CHRONIC RESPIRATORY FAILURE WITH HYPOXIA (2) Chest pain Assessment/Plan: -resolved -cardiology on board -troponin levels reviewed Code(s): R07.9 - CHEST PAIN, UNSPECIFIED (3) Elevated troponin Assessment/Plan: -troponin 0.13,0.14, 0.15, 0.07 -cardiology on board Code(s): R74.8 - ABNORMAL LEVELS OF OTHER SERUM ENZYMES (4) Lactic acid acidosis Assessment/Plan: -resolved -LA 2.4-->1.5 Code(s): E87.2 - ACIDOSIS (5) Pneumonia Assessment/Plan: -Pulm and ID on board -no leukocytosis -afebrile -observe off antibiotics -bronchodilators -restart IV Medrol -keep SpO2 >90% -O2 via NC -BC neg -Urine legionella and strep neg Code(s): J18.9 - PNEUMONIA, UNSPECIFIED ORGANISM (6) Sepsis Assessment/Plan: -Pulm and ID on board -no leukocytosis -observe off antibiotics -bronchodilators -IV Medrol -keep SpO2 >90% -O2 via NC -BC neg -Urine legionella and strep neg -UC neg from 09/11 -spiked fever 100.1F-resent BC and UC -repeat UC prelim positive - Code(s): A41.9 - SEPSIS, UNSPECIFIED ORGANISM (7) THIAGO (acute kidney injury) Assessment/Plan: -BUN/Cr 19.3/1.1 -monitor renal function -Renal on board Code(s): N17.9 - ACUTE KIDNEY FAILURE, UNSPECIFIED (8) GERD (gastroesophageal reflux disease) Assessment/Plan: -Pantoprazole Code(s): K21.9 - GASTRO-ESOPHAGEAL REFLUX DISEASE WITHOUT ESOPHAGITIS (9) Stage 4 lung cancer Assessment/Plan: -Oncology on board -CXR from admission reveals bilateral lung masses Code(s): C34.90 - MALIGNANT NEOPLASM OF UNSP PART OF UNSP BRONCHUS OR LUNG (10) HTN (hypertension) Assessment/Plan: -Amlodipine, Losartan -low Na diet Code(s): I10 - ESSENTIAL (PRIMARY) HYPERTENSION (11) Tachycardia Assessment/Plan: -EKG shows sinus tachycardia with occasional PVC -cardiology on board Code(s): R00.0 - TACHYCARDIA, UNSPECIFIED Assessment/Plan see problem list dvt ppx
[2018-09-23] MEDS: ALPRAZolam 0.25 MG TABLET PO SCH (21:43)
[2018-09-23] MEDS ORDERED: ZOLPIDEM TARTRATE 5 MG TABLET PO ONE (21:52)
[2018-09-24] MEDS: methylPREDNISolone NA SUCC 40 MG/1 ML VIAL IVPUSH SCH ×2 (02:39→09:30)
[2018-09-24] MEDS: ACETYLCYSTEINE 20% 200MG/ML 4 ML VIAL *FOR ORAL / INH USE ONLY NEB SCH ×2 (07:39→11:20)
[2018-09-24 07:46] LABS: HEMATOCRIT 24.7 % (32.4-45.2); HEMOGLOBIN 8.1 GM/dL (10.7-15.3); MCH 29.5 pg (25.7-33.7); MEAN CELL VOLUME 89.3 fl (80-96); MEAN PLT VOLUME 8.5 fl (7.5-11.1); PLATELET COUNT 158 K/MM3 (134-434); RBC 2.77 M/mm3 (3.60-5.2); WHITE BLOOD COUNT 8.6 K/mm3 (4.0-10.0)
[2018-09-24] MEDS ORDERED: PT OWN MED DRAWER 7, Y5N ONE (07:57)
[2018-09-24 08:08] LABS: ALBUMIN 2.4 g/dl (3.4-5.0); BILIRUBIN,TOTAL 0.6 mg/dL (0.2-1); BLOOD UREA NITROGEN 18.8 mg/dL (7-18); CALCIUM 8.1 mg/dL (8.5-10.1); CREATININE 1.2 mg/dL (0.55-1.3); POTASSIUM 4.1 mmol/L (3.5-5.1); TOT PROT 5.3 g/dl (6.4-8.2)
--- NOTE | 2018-09-24 09:01 | DS ---
Physical Examination Vital Signs: Vital Signs Temperature 97.7 F 09/24/18 06:00 Pulse Rate 98 H 09/24/18 06:00 Respiratory Rate 20 09/24/18 06:00 Blood Pressure 127/71 09/24/18 06:00 O2 Sat by Pulse Oximetry (%) 97 09/23/18 21:00 Findings/Remarks: feels good wants to go home Constitutional: Yes: No Distress Cardiovascular: Yes: Regular Rate and Rhythm Respiratory: Yes: CTA Bilaterally Gastrointestinal: Yes: WNL Musculoskeletal: Yes: WNL Extremities: Yes: WNL Edema: No Peripheral Pulses WNL: Yes Integumentary: Yes: WNL Wound/Incision: Yes: Clean/Dry Neurological: Yes: WNL Psychiatric: Yes: WNL Labs: CBC, BMP 09/24/18 05:45 09/24/18 05:45 Discharge Summary Reason For Visit: SEPSIS Current Active Problems Acute on chronic respiratory failure with hypoxemia (Acute) Chest pain (Acute) Elevated troponin (Acute) Lactic acid acidosis (Acute) Leg edema (Acute) Metastatic lung cancer (metastasis from lung to other site) (Acute) Pneumonia (Acute) Sepsis (Acute) Tachycardia (Acute) Procedures: Principal: ct scan Hospital Course: admitted iv abx, iv steroids respiratory distress, pna, can dc home Condition: Improved - Instructions Diet, Activity, Other Instructions: see your primary doctor Tung in 2-3 days Disposition: VNS/HOME HEALTH CARE - Home Medications Comprehensive Discharge Medication List: Ambulatory Orders Alprazolam [Xanax] 0.25 mg PO DAILY 06/15/18 Blood-Glucose Meter [Freestyle Lite Meter] 1 each [facility] 06/15/18 Losartan Potassium [Cozaar -] 50 mg PO DAILY 06/15/18 Pantoprazole Sodium [Protonix -] 40 mg PO DAILY 06/15/18 Zolpidem Tartrate [Ambien] 10 mg PO DAILY 06/15/18 Acetaminophen [Tylenol .Extra-Strength -] 500 mg PO Q6H PRN tablet 06/19/18 Atovaquone [Mepron Oral Solution -] 1,500 mg PO DAILY@0800 #1 bottle 06/19/18 Albuterol Sulfate Inhaler - [Ventolin HFA Inhaler -] 2 puff IH Q6H PRN inhaler 06/25/18 Amlodipine Besylate [Norvasc -] 5 mg PO DAILY tablet 06/25/18 Leflunomide [Arava -] 20 mg PO DAILY #60 tablet 06/25/18 Sulfasalazine [Azulfidine En-Tabs -] 1,000 mg PO BID #120 tablet. 06/25/18 predniSONE [Deltasone -] 15 mg PO BID #60 tablet 06/25/18 traMADol HCL [Ultram -] 50 mg PO Q8H PRN tablet MDD 3 06/25/18 Furosemide [Lasix -] 20 mg PO DAILY #30 tablet 08/29/18 Acetaminophen [Tylenol .Regular Strength -] 650 mg PO Q4H PRN tablet 09/20/18 predniSONE [Deltasone -] 20 mg PO DAILY #14 tablet 09/20/18 Albuterol 0.083% Nebulizer Yudy [Ventolin 0.083% Nebulizer Soln -] 1 amp NEB RQID amp 09/24/18 Guaifenesin [Robitussin -] 10 ml PO Q6H PRN cup 09/24/18
[2018-09-24] MEDS: ATOVAQUONE 750 MG/5 ML (UNIT-DOSE PACKAGING) PO SCH (09:18)
[2018-09-24] MEDS: LOSARTAN POTASSIUM 50 MG TABLET (FP) PO SCH (09:18)
[2018-09-24] MEDS: FUROSEMIDE 20 MG TABLET (FP) PO SCH (09:19)
[2018-09-24] MEDS: PANTOPRAZOLE 40 MG TABLET (FP) PO SCH (09:19)
[2018-09-24] MEDS: amLODIPine BESYLATE 10 MG TABLET (FP) PO SCH (09:19)
[2018-09-24] MEDS: LEFLUNOMIDE 10 MG TABLET PO SCH (09:20)
[2018-09-24] MEDS: HEPARIN NA (PORCINE) 5,000 UNITS/ML 1ML VIAL SQ SCH (09:20)
[2018-09-24 13:47] VITALS: BP 140/82; PULSE 107; TEMP 97.3
== END 2018-09-24 14:05 | disposition home health service (06) | DRG 871 ==
LOC: JER 16:55 → JERBED 23:20 → J4W 09-12 02:25 → J7W 09-18 11:57
PROVIDERS: ADMIT Family Medicine; ATTEND Family Medicine
DX: A41.9 Sepsis, unspecified organism (principal); J18.9 Pneumonia, unspecified organism; J96.21 Acute and chronic respiratory failure with hypoxia; C34.90 Malignant neoplasm of unspecified part of unspecified bronchus or lung; N17.9 Acute kidney failure, unspecified; C34.91 Malignant neoplasm of unspecified part of right bronchus or lung; E87.2 Acidosis; E87.1 Hypo-osmolality and hyponatremia; J44.1 Chronic obstructive pulmonary disease with (acute) exacerbation; I24.8 Other forms of acute ischemic heart disease; F32.9 Major depressive disorder, single episode, unspecified; K21.9 Gastro-esophageal reflux disease without esophagitis; F41.9 Anxiety disorder, unspecified; Z99.81 Dependence on supplemental oxygen; M06.9 Rheumatoid arthritis, unspecified; I11.0 Hypertensive heart disease with heart failure; I50.9 Heart failure, unspecified; Z66 Do not resuscitate; D64.9 Anemia, unspecified; E66.9 Obesity, unspecified; Z68.32 Body mass index [BMI] 32.0-32.9, adult
CPT/HCPCS: 36415; 36600; 71045-TC-FY; 71250-TC; 74176-TC; 80048; 80053; 81003; 82550; 82565; 82803; 82962; 83605; 83690; 83735; 83880; 84100; 84156; 84300; 84443; 84484; 84540; 85025; 85027; 85610; 87040; 87086; 87186; 87205; 87899; 93005; 93010; 93306-TC; 93970-TC; 94640; 97116-GP; 99285-25; J0131; J1644

== ENCOUNTER 2018-09-26 07:06 | Day surgery (SDC) | payer OTHER ==
[2018-09-26] MEDS ORDERED: DIPHENHYDRAMINE 25 MG in SODIUM CHLORIDE 50 ML IVPB ONE (09:30)
[2018-09-26] MEDS ORDERED: ACETAMINOPHEN 325 MG TABLET (FP) PO ONE (09:30)
[2018-09-26] MEDS ORDERED: NIVOLUMAB 240 MG in SODIUM CHLORIDE 100 ML IVPB ONE (10:00)
[2018-09-26 11:41] LABS: BASO % 0.4 % (0-2.0); HEMATOCRIT 26.8 % (32.4-45.2); HEMOGLOBIN 8.7 GM/dL (10.7-15.3); LYMPH % 4.9 % (8-40); MCH 29.3 pg (25.7-33.7); MCHC 32.5 g/dl (32.0-36.0); MEAN CELL VOLUME 90.3 fl (80-96); MONO % 5.2 % (3.8-10.2); NEUT % 89.5 % (42.8-82.8); PLATELET COUNT 221 K/MM3 (134-434); RBC 2.97 M/mm3 (3.60-5.2); RDW 18.1 % (11.6-15.6); WHITE BLOOD COUNT 9.2 K/mm3 (4.0-10.0)
[2018-09-26 12:10] LABS: ALBUMIN 2.7 g/dl (3.4-5.0); BILIRUBIN,DIRECT 0.3 mg/dL (0.0-0.2); BILIRUBIN,TOTAL 0.6 mg/dL (0.2-1); CALCIUM 8.6 mg/dL (8.5-10.1); CREATININE 1.3 mg/dL (0.55-1.3); MAGNESIUM 1.7 mg/dL (1.8-2.4); POTASSIUM 3.7 mmol/L (3.5-5.1)
[2018-09-26 15:18] VITALS: BP 146/84; PULSE 96; TEMP 98.6
[2018-09-26] MEDS ORDERED: PORTA CATH FLUSH 10 ML IVPUSH ONE (15:18)
[2018-09-26] MEDS ORDERED: ALTEPLASE 2 MG VIAL CVP ONE (16:00)
== END 2018-09-26 13:40 | disposition home or self-care (01) ==
LOC: JONCCHEMO 07:06 → J7W 10:48 → JONCCHEMO 13:40
PROVIDERS: ATTEND Internal Medicine Hematology & Oncology
DX: Z51.11 Encounter for antineoplastic chemotherapy (principal); C34.91 Malignant neoplasm of unspecified part of right bronchus or lung
CPT/HCPCS: 36415; 80048; 80076; 83735; 84439; 84443; 85025; 96375; 96413; J2997; J9299

== ENCOUNTER 2018-09-28 07:49 | Inpatient (IN) | payer OTHER ==
[2018-09-28] MEDS ORDERED: ALBUTEROL SO4 2.5/IPRATROPIUM 0.5 INH SOL 3 ML VIAL.NEB. NEB ONE ×4 (07:51→20:23)
[2018-09-28] MEDS ORDERED: methylPREDNISolone NA SUCC 125 MG/2 ML VIAL IVPUSH ONE (07:55)
--- NOTE | 2018-09-28 07:55 | PDOC ---
History of Present Illness - General Stated Complaint: DIFFICULTY BREATHING Time Seen by Provider: 09/28/18 07:51 - History of Present Illness Initial Comments: 09/28/18 07:54 HPI 73 year old woman with a history of htn, copd(5L), stage 4 lung CA s/p 1/3 R lung resection and currently on chemo and a recent admission for pna discharged on 09/23/18 who presents with shortness of breath for the past 4 days but worsening since last night. She reports using her home nebulizer twice last night and once this morning. She called EMS after she still felt short of breath this AM despite nebulizer use. She denies any fever, cough productive of phlegm, however the patient reports she has difficulty expectorating. She denies chest pain, lightheadedness, nausea, diaphoresis, abdominal pain, dysuria , diarrhea or constipation. She has no other complaints at bedside. ROS GENERAL/CONSTITUTIONAL: No fever or chills. No weakness. HEAD, EYES, EARS, NOSE AND THROAT: No change in vision. No ear pain or discharge. No sore throat. CARDIOVASCULAR: No chest pain RESPIRATORY: No hemoptysis. GASTROINTESTINAL: No nausea, vomiting, diarrhea or constipation. GENITOURINARY: No dysuria, frequency, or change in urination. MUSCULOSKELETAL: No joint or muscle swelling or pain. No neck or back pain. SKIN: No rash NEUROLOGIC: No headache, vertigo, loss of consciousness, or change in strength/ sensation. PE GENERAL: Awake, alert, and fully oriented, in no acute distress HEAD: No signs of trauma, normocephalic, atraumatic EYES: EOMI, sclera anicteric, conjunctiva clear ENT:oropharynx clear without exudates. Moist mucosa NECK: Normal ROM, supple LUNGS: No distress, speaks full sentences, crackles w/ intermittent expiratory wheeze on L lung base HEART: Regular rate and rhythm, normal S1 and S2, no murmurs, rubs or gallops, peripheral pulses normal and equal bilaterally. ABDOMEN: Soft, nontender, mild abdominal breathing No guarding, no rebound. No masses EXTREMITIES : Normal inspection, Normal range of motion, no edema. No clubbing or cyanosis. NEUROLOGICAL: Cranial nerves II through XII grossly intact. Normal speech, no focal sensorimotor deficits SKIN: Warm, Dry, normal turgor, no rashes or lesions noted MDM 73 year old woman with a history of htn, copd(5L), stage 4 lung CA s/p 1/3 R lung resection and currently on chemo and a recent admission for pna discharged on 09/23/18 who presents with shortness of breath for the past 4 days but worsening since last night. DDX including but not limited to: pna vs copd exacerbation vs lung CA met W/U: - cbc, cmp, bnp, trop, ekg, cxr, vbg TX: - duoneb ED Course: Patient satting 95+ on NRB able to hold complete conversations, talk and laugh will dose third duoneb and assess for improvement call for bipap as necessary CXR: bilateral lung masses, superimposed basilar infiltrates start empiric vanc and zosyn plan for admission Sera Willingham, PGY2 Emergency Medicine Past History - Past Medical History Allergies/Adverse Reactions: Allergies Allergy/AdvReac Type Severity Reaction Status Date / Time aspirin AdvReac Mild Verified 09/28/18 07:56 Home Medications: Ambulatory Orders Alprazolam [Xanax] 0.25 mg PO DAILY 06/15/18 Blood-Glucose Meter [Freestyle Lite Meter] 1 each [facility] 06/15/18 Losartan Potassium [Cozaar -] 50 mg PO DAILY 06/15/18 Pantoprazole Sodium [Protonix -] 40 mg PO DAILY 06/15/18 Zolpidem Tartrate [Ambien] 10 mg PO DAILY 06/15/18 Acetaminophen [Tylenol .Extra-Strength -] 500 mg PO Q6H PRN tablet 06/19/18 Atovaquone [Mepron Oral Solution -] 1,500 mg PO DAILY@0800 #1 bottle 06/19/18 Albuterol Sulfate Inhaler - [Ventolin HFA Inhaler -] 2 puff IH Q6H PRN inhaler 06/25/18 Amlodipine Besylate [Norvasc -] 5 mg PO DAILY tablet 06/25/18 Leflunomide [Arava -] 20 mg PO DAILY #60 tablet 06/25/18 Sulfasalazine [Azulfidine En-Tabs -] 1,000 mg PO BID #120 tablet. 06/25/18 predniSONE [Deltasone -] 15 mg PO BID #60 tablet 06/25/18 traMADol HCL [Ultram -] 50 mg PO Q8H PRN tablet MDD 3 06/25/18 Furosemide [Lasix -] 20 mg PO DAILY #30 tablet 08/29/18 Acetaminophen [Tylenol .Regular Strength -] 650 mg PO Q4H PRN tablet 09/20/18 predniSONE [Deltasone -] 20 mg PO DAILY #14 tablet 09/20/18 Albuterol 0.083% Nebulizer Yudy [Ventolin 0.083% Nebulizer Soln -] 1 amp NEB RQID amp 09/24/18 Guaifenesin [Robitussin -] 10 ml PO Q6H PRN cup 09/24/18 Ambien 10 mg HS 09/30/18 Anemia: No Asthma: No Cancer: Yes (lung) Cardiac Disorders: No CVA: No COPD: No CHF: No Dementia: No Diabetes: No (BORDERLINE) GI Disorders: Yes Disorders: No HTN: Yes Hypercholesterolemia: No Liver Disease: No Psychiatric Problems: Yes (depression) Seizures: No Thyroid Disease: No Lung CA: Yes - Surgical History Abdominal Surgery: No Appendectomy: No Cardiac Surgery: No Cholecystectomy: No Lung Surgery: Yes (right lobectomy 2014) Neurologic Surgery: No Orthopedic Surgery: No - Immunization History Immunization Up to Date: Yes - Suicide/Smoking/Psychosocial Hx Smoking Status: Yes Smoking History: Unknown if ever smoked Have you smoked in the past 12 months: No Number of Cigarettes Smoked Daily: 10 If you are a former smoker, when did you quit?: 12/16/14 'Breaking Loose' booklet given: 08/24/15 Hx Alcohol Use: No Drug/Substance Use Hx: No Substance Use Type: None Hx Substance Use Treatment: No ED Treatment Course - LABORATORY CBC & Chemistry Diagram: 09/29/18 06:50 09/29/18 06:50 - RADIOLOGY Radiology Studies Ordered: Category Date Time Status CHEST X-RAY PORTABLE* [RAD] Stat Radiology 09/28/18 07:52 Ordered *DC/Admit/Observation/Transfer Diagnosis at time of Disposition: COPD (chronic obstructive pulmonary disease) - Discharge Dispostion Condition at time of disposition: Stable Decision to Admit order: Yes - Referrals - Patient Instructions - Post Discharge Activity
[2018-09-28 07:56] VITALS: BMI 29.6
[2018-09-28] MEDS ORDERED: methylPREDNISolone NA SUCC 125 MG/2 ML VIAL ONE (08:02)
--- NOTE | 2018-09-28 08:08 | PDOC ---
Attending Attestation - Resident Resident Name: Napoleon Willinghamie - ED Attending Attestation I have performed the following: I have examined & evaluated the patient, The case was reviewed & discussed with the resident, I agree w/resident's findings & plan, Exceptions are as noted - HPI HPI: 09/28/18 08:08 73y F hx of active stage 4 lung ca sp R upper lobectomy currently on immunotherapy, htn, ra, copd, with recent admission for acute on chronic respiratory failure, was dc on monday for immunotherpay represents for complaint of sob - notes that she has felt persisently sob with [facility], endorses cough but unable to brin gup an sputum. deneis any cp, abd pain, diaphoresis, fever/chills, bck pain, diarrhea, melena, bpr, orthopnea, hemoptysis, headche,m dizzines, palpitations. pt endorses LE edema and is on lasix but denies any calf or leg pain. Allergies: Aspirin Surgical History: RT upper lobectomy - 2014 Social History: None reported. PCP: Dr. Toro Onc: Dr. Paige - Physicial Exam PE: 09/28/18 08:53 GENERAL: The patient is awake, alert, and fully oriented, Nontoxic - in no acute distress. HEAD: Normocephalic, atraumatic. EYES: extraocular movements intact, sclera anicteric, conjunctiva clear. ENT: Normal voice, Moist mucous membranes. NECK: Normal range of motion, supple LUNGS: rales b/l at bases HEART: Regular rate and rhythm, normal S1 and S2 without murmur, rub or gallop. ABDOMEN: Soft, nontender, No guarding, no rebound. No CVA tenderness EXTREMITIES: Normal range of motion, pitting edema b/l in LE without calf tenderness, neg homans sign NEUROLOGICAL: No facial assymetry, Normal speech, moving all 4 extremities spontaneously and symmetrically PSYCH: Normal mood, normal affect. SKIN: Warm, Dry, normal turgor, - Medical Decision Making 09/28/18 08:54 suspect copd vs pna, consider chf will ck cbc, cmp, vbg, cxr, will give nebs will reasess, pt notably hypoxic - pt on NRB currently 09/28/18 12:54 xray reviewed noted for b/l masses with possible infiltrates will admit for further mangement of pna Heart Score/ECG Review - ECG Impressions Comment:: 09/28/18 10:25 Twelve-lead EKG was performed and reviewed by me. There is normal sinus rhythm rate of 116 occasoinal PVC imp: sinus tachycardia
[2018-09-28 08:48] LABS: VENOUS PC02 44.6 mmHg (41-51); VENOUS PH 7.43 (7.31-7.41)
[2018-09-28 08:49] LABS: VENOUS PO2 28.6 mmHg (30-40)
[2018-09-28] MEDS ORDERED: VANCOMYCIN 1,000 MG in DEXTROSE 5%-WATER - 250 ML IVPB ONE (09:06)
[2018-09-28] MEDS ORDERED: PIPERACILLIN/TAZOB 4.5 GM 4.5 GM in DEXTROSE 5%-WATER 100 ML IVPB ONE (09:06)
[2018-09-28] MEDS ORDERED: PIPERACILLIN/TAZOB 4.5 GM 4.5 GM/100 ML BAG IVPB ONE (09:27)
[2018-09-28] MEDS ORDERED: VANCOMYCIN 1 GRAM (PRE-DOCKED) 1,000 MG/250 ML BAG IVPB ONE (09:27)
[2018-09-28 09:37] LABS: ALBUMIN 2.8 g/dl (3.4-5.0); BILIRUBIN,TOTAL 0.8 mg/dL (0.2-1); CREATININE 1.2 mg/dL (0.55-1.3); N-TERMINAL BNP 4422.7 pg/ml (5-125); POTASSIUM 3.8 mmol/L (3.5-5.1)
[2018-09-28 09:55] LABS: BASO % 0.6 % (0-2.0); EOS % 0.5 % (0-4.5); HEMATOCRIT 28.1 % (32.4-45.2); LYMPH % 20.1 % (8-40); MCH 29.1 pg (25.7-33.7); MCHC 31.9 g/dl (32.0-36.0); MEAN PLT VOLUME 7.9 fl (7.5-11.1); MONO % 4.6 % (3.8-10.2); NEUT % 74.2 % (42.8-82.8); PLATELET COUNT 222 K/MM3 (134-434); RBC 3.09 M/mm3 (3.60-5.2); RDW 18.1 % (11.6-15.6); WHITE BLOOD COUNT 9.6 K/mm3 (4.0-10.0)
--- NOTE | 2018-09-28 15:20 | HP ---
Admitting History and Physical - Primary Care Physician PCP: Lior Toro - Admission Chief Complaint: shortness of breath for 4 days History of Present Illness: 73y F hx of active stage 4 lung ca sp R upper lobectomy currently on immunotherapy, htn, ra, copd, with recent admission for acute on chronic respiratory failure, was dc on monday for immunotherpay represents for complaint of sob - notes that she has felt persisently sob with [facility], . deneis any cp, abd pain, diaphoresis, fever/chills, bck pain, diarrhea, melena, bpr, orthopnea, hemoptysis, headche,m dizzines, palpitations. pt endorses LE edema and is on lasix but denies any calf or leg pain. per patient she has been taking her lasix and nebulizers at home but no relief so came to ER in ER she got solumedrol, nebulizer , vancomycin and zosyn History Source: Patient - Past Medical History Cardiovascular: Yes: HTN Pulmonary: Yes: Other (Lung cancer --stage IIB . squamous cell) Rheumatology: Yes: Other (rheumatoid arthritis) - Smoking History Smoking history: Unknown if ever smoked Have you smoked in the past 12 months: No Aproximately how many cigarettes per day: 10 If you are a former smoker, when did you quit?: 12/16/14 - Alcohol/Substance Use Hx Alcohol Use: No - Social History ADL: Independent History of Recent Travel: No Home Medications - Allergies Allergies/Adverse Reactions: Allergies Allergy/AdvReac Type Severity Reaction Status Date / Time aspirin AdvReac Mild Verified 09/28/18 07:56 - Home Medications Home Medications: Ambulatory Orders Alprazolam [Xanax] 0.25 mg PO DAILY 06/15/18 Blood-Glucose Meter [Freestyle Lite Meter] 1 each [facility] ACHS 06/15/18 Losartan Potassium [Cozaar -] 50 mg PO DAILY 06/15/18 Pantoprazole Sodium [Protonix -] 40 mg PO DAILY 06/15/18 Zolpidem Tartrate [Ambien] 10 mg PO DAILY 06/15/18 Acetaminophen [Tylenol .Extra-Strength -] 500 mg PO Q6H PRN tablet 06/19/18 Atovaquone [Mepron Oral Solution -] 1,500 mg PO DAILY@0800 #1 bottle 06/19/18 Albuterol Sulfate Inhaler - [Ventolin HFA Inhaler -] 2 puff IH Q6H PRN inhaler 06/25/18 Amlodipine Besylate [Norvasc -] 5 mg PO DAILY tablet 06/25/18 Leflunomide [Arava -] 20 mg PO DAILY #60 tablet 06/25/18 Sulfasalazine [Azulfidine En-Tabs -] 1,000 mg PO BID #120 tablet. 06/25/18 predniSONE [Deltasone -] 15 mg PO BID #60 tablet 06/25/18 traMADol HCL [Ultram -] 50 mg PO Q8H PRN tablet MDD 3 06/25/18 Furosemide [Lasix -] 20 mg PO DAILY #30 tablet 08/29/18 Acetaminophen [Tylenol .Regular Strength -] 650 mg PO Q4H PRN tablet 09/20/18 predniSONE [Deltasone -] 20 mg PO DAILY #14 tablet 09/20/18 Albuterol 0.083% Nebulizer Yudy [Ventolin 0.083% Nebulizer Soln -] 1 amp NEB RQID amp 09/24/18 Guaifenesin [Robitussin -] 10 ml PO Q6H PRN cup 09/24/18 Review of Systems - Review of Systems Cardiovascular: reports: Edema Respiratory: reports: Cough, SOB, SOB on Exertion Physical Examination Vital Signs: Vital Signs Temperature 98.1 F 09/28/18 07:50 Pulse Rate 108 H 09/28/18 11:11 Respiratory Rate 23 H 09/28/18 11:11 Blood Pressure 143/88 09/28/18 11:11 O2 Sat by Pulse Oximetry (%) 97 09/28/18 11:11 Constitutional: Yes: Calm Cardiovascular: Yes: Regular Rate and Rhythm, S1, S2 Respiratory: Yes: On Nasal O2, Other (crackles) Gastrointestinal: Yes: Normal Bowel Sounds, Soft Edema: Yes Neurological: Yes: Alert, Oriented Labs: CBC, BMP 09/28/18 08:07 09/28/18 08:07 Problem List - Problems (1) COPD (chronic obstructive pulmonary disease) Assessment/Plan: iv medrol nebulizer oxygen Code(s): J44.9 - CHRONIC OBSTRUCTIVE PULMONARY DISEASE, UNSPECIFIED (2) Leg edema Assessment/Plan: iv lasix monitor lytes leg elevation dvt ppx Code(s): R60.0 - LOCALIZED EDEMA (3) Stage 4 lung cancer Assessment/Plan: got immuno therapy on 09/26 heme consult Code(s): C34.90 - MALIGNANT NEOPLASM OF UNSP PART OF UNSP BRONCHUS OR LUNG
[2018-09-28] MEDS ORDERED: FUROSEMIDE 40 MG/4 ML INJECTABLE VIAL IVPUSH ONE (15:24)
[2018-09-28] MEDS ORDERED: traMADol HCL 50 MG TABLET PO PRN (15:25)
[2018-09-28] MEDS ORDERED: FUROSEMIDE 40 MG/4 ML INJECTABLE VIAL ONE (15:43)
[2018-09-28] MEDS: ALBUTEROL SO4 2.5/IPRATROPIUM 0.5 INH SOL 3 ML VIAL.NEB. NEB SCH ×2 (15:59→20:27)
[2018-09-28] MEDS ORDERED: LOSARTAN POTASSIUM 50 MG TABLET (FP) PO ONE (16:08)
[2018-09-28] MEDS ORDERED: amLODIPine BESYLATE 10 MG TABLET (FP) PO ONE (16:16)
[2018-09-28] MEDS ORDERED: amLODIPine BESYLATE 5 MG TABLET (FP) ONE (16:18)
[2018-09-28] MEDS ORDERED: LOSARTAN POTASSIUM 50 MG TABLET (FP) ONE (16:19)
[2018-09-28] MEDS ORDERED: PIPERACILLIN/TAZOB 3.375 GM 3.375 GM/50 ML BAG IVPB ONE (16:19)
[2018-09-28] MEDS: PIPERACILLIN/TAZOB 3.375 GM 3.375 GM in DEXTROSE 5%-WATER - 50 ML IVPB SCH (16:59)
[2018-09-28] MEDS ORDERED: LEFLUNOMIDE 10 MG TABLET PO ONE (17:00)
[2018-09-28] MEDS ORDERED: PIPERACILLIN/TAZOB 3.375 GM 3.375 GM in DEXTROSE 5%-WATER - 50 ML IVPB SCH (18:00)
[2018-09-28] MEDS ORDERED: ZOLPIDEM TARTRATE 5 MG TABLET PO ONE (21:17)
[2018-09-28] MEDS ORDERED: ALPRAZolam 0.25 MG TABLET PO SCH (22:00)
[2018-09-28] MEDS: methylPREDNISolone NA SUCC 40 MG/1 ML VIAL IVPUSH SCH (22:43)
[2018-09-28] MEDS: HEPARIN NA (PORCINE) 5,000 UNITS/ML 1ML VIAL SQ SCH (22:44)
[2018-09-29] MEDS ORDERED: DEXTROSE 5%-WATER - 50 ML IVPB ONE ×2 (01:48→10:11)
[2018-09-29] MEDS ORDERED: PIPERACILLIN/TAZOBACTAM 3.375 GM VIAL IVPB ONE ×2 (01:48→10:11)
[2018-09-29] MEDS: PIPERACILLIN/TAZOB 3.375 GM 3.375 GM in DEXTROSE 5%-WATER - 50 ML IVPB SCH ×2 (03:20→10:45)
[2018-09-29] MEDS: methylPREDNISolone NA SUCC 40 MG/1 ML VIAL IVPUSH SCH ×4 (03:49→15:13)
[2018-09-29 06:08] LABS: URINE APPEARANCE CLEAR; URINE BILIRUBIN NEGATIVE (NEGATIVE); URINE COLOR YELLOW; URINE GLUCOSE (UA) NEGATIVE (NEGATIVE); URINE KETONE NEGATIVE (NEGATIVE); URINE LEUK ESTERASE NEGATIVE (NEGATIVE); URINE NITRITE NEGATIVE (NEGATIVE); URINE PROTEIN NEGATIVE (NEGATIVE); URINE UROBILINOGEN 0.2 mg/dL (0.2-1.0)
[2018-09-29] MEDS: ALBUTEROL SO4 2.5/IPRATROPIUM 0.5 INH SOL 3 ML VIAL.NEB. NEB SCH (08:00)
[2018-09-29] MEDS ORDERED: ATOVAQUONE 750 MG/5 ML (UNIT-DOSE PACKAGING) PO SCH (08:00)
[2018-09-29 08:14] LABS: BASO % 0.3 % (0-2.0); HEMATOCRIT 24.4 % (32.4-45.2); HEMOGLOBIN 8.1 GM/dL (10.7-15.3); MCH 29.9 pg (25.7-33.7); MCHC 33.3 g/dl (32.0-36.0); MEAN PLT VOLUME 7.8 fl (7.5-11.1); MONO % 2.3 % (3.8-10.2); NEUT % 92.4 % (42.8-82.8); PLATELET COUNT 228 K/MM3 (134-434); RBC 2.72 M/mm3 (3.60-5.2); WHITE BLOOD COUNT 8.3 K/mm3 (4.0-10.0)
[2018-09-29 08:30] LABS: INR 1.17 (0.83-1.09); PROTHROMBIN TIME (PATIENT) 13.8 SEC (9.7-13.0)
[2018-09-29 08:33] LABS: ACTIVATED PTT 27.3 SECONDS (25.2-36.5)
[2018-09-29] MEDS ORDERED: PT OWN MED DRAWER 7, Y5N ONE ×4 (08:42→21:15)
[2018-09-29 08:47] LABS: ALBUMIN 2.5 g/dl (3.4-5.0); ALK PHOS 79 U/L (45-117); ANION GAP 7 MMOL/L (8-16); BILIRUBIN,TOTAL 0.6 mg/dL (0.2-1); BLOOD UREA NITROGEN 21.4 mg/dL (7-18); CALCIUM 8.5 mg/dL (8.5-10.1); CHLORIDE 108 mmol/L (98-107); CO2 27 mmol/L (21-32); CREATININE 1.1 mg/dL (0.55-1.3); GLUCOSE,RANDOM 161 mg/dL (74-106); MAGNESIUM 1.7 mg/dL (1.8-2.4); PHOSPHOROUS 3.3 mg/dL (2.5-4.9); POTASSIUM 4.3 mmol/L (3.5-5.1); SGOT/AST 16 U/L (15-37); SGPT/ALT 14 U/L (13-61); SODIUM 142 mmol/L (136-145); TOT PROT 5.4 g/dl (6.4-8.2)
[2018-09-29] MEDS ORDERED: PANTOPRAZOLE 40 MG TABLET (FP) PO SCH (10:00)
[2018-09-29] MEDS ORDERED: LOSARTAN POTASSIUM 50 MG TABLET (FP) PO SCH (10:00)
[2018-09-29] MEDS ORDERED: FUROSEMIDE 40 MG/4 ML INJECTABLE VIAL IVPUSH SCH (10:00)
[2018-09-29] MEDS ORDERED: amLODIPine BESYLATE 10 MG TABLET (FP) PO SCH (10:00)
[2018-09-29] MEDS ORDERED: FUROSEMIDE 20 MG TABLET (FP) PO SCH ×2 (10:00→23:45)
[2018-09-29] MEDS ORDERED: LEFLUNOMIDE 10 MG TABLET PO SCH (10:00)
[2018-09-29] MEDS: HEPARIN NA (PORCINE) 5,000 UNITS/ML 1ML VIAL SQ SCH (10:20)
[2018-09-29] MEDS ORDERED: ALBUTEROL SO4 0.083% IH SOL 2.5 MG/3 ML VIAL.NEB. NEB PRN ×2 (12:09→22:01)
--- NOTE | 2018-09-29 12:15 | CON.PULM ---
Consult Consult Specialty:: PULM/CCM Referred by:: HARIS Reason for Consultation:: SOB - History of Present Illness Chief Complaint: SOB History of Present Illness: 73 F, well known to me from previous admissions. Stage 4 SCC Lung, S/P R upper lobectomy currently on immunotherapy (last dose was last week), HTN, RA, COPD, and PNA. Recent admission and discharge from [facility] for same. Admitted with progressive SOB and CHU. No fever or chills. No night sweats or hempotysis. No travel history or sick contacts. CXR: bilateral lung masses She has no IV access, so has not received any of her IV Meds (ABX and steroids) . - History Source History Provided By: Patient Limitations to Obtaining History: No Limitations - Past Medical History Cardio/Vascular: Yes: HTN Pulmonary: Yes: Bronchitis, Cancer, COPD, Pneumonia, Other (Lung cancer --stage IIB . squamous cell). No: Asthma, Previously Intubated, Pulmonary Embolus, Pulmonary Fibrosis, Sleep Apnea Rheumatology: Yes: Other (rheumatoid arthritis) - Alcohol/Substance Use Hx Alcohol Use: No - Smoking History Smoking history: Unknown if ever smoked Have you smoked in the past 12 months: No Aproximately how many cigarettes per day: 10 If you are a former smoker, when did you quit?: 12/16/14 - Social History ADL: Independent History of Recent Travel: No Home Medications - Allergies Allergies/Adverse Reactions: Allergies Allergy/AdvReac Type Severity Reaction Status Date / Time aspirin AdvReac Mild Verified 09/28/18 07:56 - Home Medications Home Medications: Ambulatory Orders Alprazolam [Xanax] 0.25 mg PO DAILY 06/15/18 Blood-Glucose Meter [Freestyle Lite Meter] 1 each [facility] ACHS 06/15/18 Losartan Potassium [Cozaar -] 50 mg PO DAILY 06/15/18 Pantoprazole Sodium [Protonix -] 40 mg PO DAILY 06/15/18 Zolpidem Tartrate [Ambien] 10 mg PO DAILY 06/15/18 Acetaminophen [Tylenol .Extra-Strength -] 500 mg PO Q6H PRN tablet 06/19/18 Atovaquone [Mepron Oral Solution -] 1,500 mg PO DAILY@0800 #1 bottle 06/19/18 Albuterol Sulfate Inhaler - [Ventolin HFA Inhaler -] 2 puff IH Q6H PRN inhaler 06/25/18 Amlodipine Besylate [Norvasc -] 5 mg PO DAILY tablet 06/25/18 Leflunomide [Arava -] 20 mg PO DAILY #60 tablet 06/25/18 Sulfasalazine [Azulfidine En-Tabs -] 1,000 mg PO BID #120 tablet. 06/25/18 predniSONE [Deltasone -] 15 mg PO BID #60 tablet 06/25/18 traMADol HCL [Ultram -] 50 mg PO Q8H PRN tablet MDD 3 06/25/18 Furosemide [Lasix -] 20 mg PO DAILY #30 tablet 08/29/18 Acetaminophen [Tylenol .Regular Strength -] 650 mg PO Q4H PRN tablet 09/20/18 predniSONE [Deltasone -] 20 mg PO DAILY #14 tablet 09/20/18 Albuterol 0.083% Nebulizer Yudy [Ventolin 0.083% Nebulizer Soln -] 1 amp NEB RQID amp 09/24/18 Guaifenesin [Robitussin -] 10 ml PO Q6H PRN cup 09/24/18 Review of Systems - Review of Systems Constitutional: reports: Malaise. denies: Chills, Fever, Night Sweats, Unintentional Wgt. Loss Eyes: reports: No Symptoms HENT: reports: No Symptoms Neck: reports: No Symptoms Cardiovascular: reports: Edema, Shortness of Breath. denies: Chest Pain, Palpitations Respiratory: reports: Cough, Orthopnea, PND, SOB, SOB on Exertion, Wheezing. denies: Hemoptysis, Snoring Gastrointestinal: reports: No Symptoms Genitourinary: reports: No Symptoms Breasts: reports: No Symptoms Reported Musculoskeletal: reports: No Symptoms Integumentary: reports: No Symptoms Neurological: reports: No Symptoms Endocrine: reports: No Symptoms Hematology/Lymphatic: reports: No Symptoms Psychiatric: reports: No Symptoms Physical Exam Vital Sings: Vital Signs Temperature 97.5 F L 09/29/18 09:05 Pulse Rate 110 H 09/29/18 10:15 Respiratory Rate 24 H 09/29/18 10:15 Blood Pressure 151/73 09/29/18 10:15 O2 Sat by Pulse Oximetry (%) 94 L 09/28/18 22:00 Constitutional: Yes: Moderate Distress Eyes: Yes: Conjunctiva Clear, EOM Intact Neck: Yes: Supple, Trachea Midline Cardiovascular: Yes: Tachycardia Respiratory: Yes: Accessory Muscle Use, Cough, Diminished, On Nasal O2, Rhonchi , SOB, SOB on Exertion, Tachypnea, Wheezes. No: Rales, Stridor ...Inspection: Yes: WNL ...Clubbing: No Gastrointestinal: Yes: Normal Bowel Sounds, Soft, Abdomen, Obese Renal/: Yes: WNL Musculoskeletal: Yes: WNL Extremities: Yes: WNL Edema: Yes Peripheral Pulses WNL: Yes Integumentary: Yes: WNL Neurological: Yes: WNL, Alert, Oriented ...Motor Strength: WNL Psychiatric: Yes: WNL, Alert, Oriented Labs: CBC, BMP 09/29/18 06:50 09/29/18 06:50 Imaging - Results Chest X-ray: Report Reviewed, Image Reviewed Problem List - Problems (1) COPD (chronic obstructive pulmonary disease) Code(s): J44.9 - CHRONIC OBSTRUCTIVE PULMONARY DISEASE, UNSPECIFIED (2) Acute on chronic respiratory failure with hypoxemia Code(s): J96.21 - ACUTE AND CHRONIC RESPIRATORY FAILURE WITH HYPOXIA (3) Diabetes Code(s): E11.9 - TYPE 2 DIABETES MELLITUS WITHOUT COMPLICATIONS (4) GERD (gastroesophageal reflux disease) Code(s): K21.9 - GASTRO-ESOPHAGEAL REFLUX DISEASE WITHOUT ESOPHAGITIS (5) Insomnia Code(s): G47.00 - INSOMNIA, UNSPECIFIED (6) Metastatic lung cancer (metastasis from lung to other site) Code(s): C34.90 - MALIGNANT NEOPLASM OF UNSP PART OF UNSP BRONCHUS OR LUNG (7) Rheumatoid arthritis Code(s): M06.9 - RHEUMATOID ARTHRITIS, UNSPECIFIED (8) SCC (squamous cell carcinoma of lung) Code(s): C34.90 - MALIGNANT NEOPLASM OF UNSP PART OF UNSP BRONCHUS OR LUNG (9) SOB (shortness of breath) Code(s): R06.02 - SHORTNESS OF BREATH (10) Stage 4 lung cancer Code(s): C34.90 - MALIGNANT NEOPLASM OF UNSP PART OF UNSP BRONCHUS OR LUNG (11) Tachycardia Code(s): R00.0 - TACHYCARDIA, UNSPECIFIED (12) Anxiety Code(s): F41.9 - ANXIETY DISORDER, UNSPECIFIED (13) Depression Code(s): F32.9 - MAJOR DEPRESSIVE DISORDER, SINGLE EPISODE, UNSPECIFIED (14) HTN (hypertension) Code(s): I10 - ESSENTIAL (PRIMARY) HYPERTENSION (15) Maintenance chemotherapy following disease Code(s): Z51.11 - ENCOUNTER FOR ANTINEOPLASTIC CHEMOTHERAPY Assessment/Plan Encouraged patient to have her Medi-port accessed for her IV Meds Albuterol with Mucomyst nebulizer: Hole Atrovent as this is anti-muscarinic and will thicken her secretions further O2 as needed Medrol Noted ABX: doubt respiratory infection No smoking VTE prophylaxis Patient has not made any decisions on GOC Will follow Thank you. Dr Sanabria
--- NOTE | 2018-09-29 12:43 | PN ---
Progress Note, Physician Chief Complaint: AWAKE ALERT EVENTS AND NOTES REVIEWED REFUSING IV ATTEMPTS - Current Medication List Current Medications: Active Medications Acetylcysteine (Mucomyst 20 Oral / Inh Use Only*) 200 mg NEB RQID [facility] Albuterol Sulfate (Ventolin 0.083% Nebulizer Soln -) 1 amp NEB RQID [facility] Albuterol Sulfate (Ventolin 0.083% Nebulizer Soln -) 1 amp NEB Q4H PRN PRN Reason: SHORT OF BREATH/WHEEZING Alprazolam (Xanax -) 0.25 mg PO HS [facility] Last Admin: 09/29/18 00:20 Dose: 0.25 mg Atovaquone (Mepron -) 1,500 mg PO DAILY@0800 [facility] Last Admin: 09/29/18 12:14 Dose: 1,500 mg Furosemide (Lasix Injection -) 40 mg IVPUSH DAILY [facility] Last Admin: 09/29/18 10:45 Dose: Not Given Heparin Sodium (Porcine) (Heparin -) 5,000 unit SQ BID [facility] Last Admin: 09/29/18 10:20 Dose: Not Given Piperacillin Sod/Tazobactam (Sod 3.375 gm/ Dextrose) 50 mls @ 100 mls/hr IVPB Q8H-IV [facility]; Protocol Leflunomide (Arava -) 20 mg PO DAILY [facility] Last Admin: 09/29/18 12:14 Dose: 20 mg Losartan Potassium (Cozaar -) 50 mg PO DAILY [facility] Last Admin: 09/29/18 10:20 Dose: 50 mg Methylprednisolone Sodium Succinate (Solu-Medrol -) 40 mg IVPUSH Q6H-IV [facility] Last Admin: 09/29/18 09:16 Dose: Not Given Pantoprazole Sodium (Protonix -) 40 mg PO DAILY [facility] Last Admin: 09/29/18 10:20 Dose: 40 mg Sulfasalazine (Azulfidine En-Tabs -) 1,000 mg PO BID [facility] Last Admin: 09/29/18 10:21 Dose: 1,000 mg Tramadol HCl (Ultram -) 50 mg PO Q8H PRN PRN Reason: PAIN LEVEL 7 - 10 - Objective Vital Signs: Vital Signs Temperature 97.5 F L 09/29/18 09:05 Pulse Rate 110 H 09/29/18 10:15 Respiratory Rate 24 H 09/29/18 10:15 Blood Pressure 151/73 09/29/18 10:15 O2 Sat by Pulse Oximetry (%) 94 L 09/28/18 22:00 Constitutional: Yes: Mild Distress Cardiovascular: Yes: Regular Rate and Rhythm Respiratory: Yes: Diminished, On Nasal O2 Gastrointestinal: Yes: Soft Genitourinary: Yes: WNL Musculoskeletal: Yes: Muscle Weakness Edema: Yes Peripheral Pulses WNL: Yes Integumentary: Yes: WNL Wound/Incision: Yes: Clean/Dry Neurological: Yes: WNL ...Motor Strength: WNL Psychiatric: Yes: WNL Labs: CBC, BMP 09/29/18 06:50 09/29/18 06:50 INR, PTT INR 1.17 (0.83-1.09) H 09/29/18 06:50 Problem List - Problems (1) COPD (chronic obstructive pulmonary disease) Code(s): J44.9 - CHRONIC OBSTRUCTIVE PULMONARY DISEASE, UNSPECIFIED (2) Diabetes Code(s): E11.9 - TYPE 2 DIABETES MELLITUS WITHOUT COMPLICATIONS (3) Metastatic lung cancer (metastasis from lung to other site) Code(s): C34.90 - MALIGNANT NEOPLASM OF UNSP PART OF UNSP BRONCHUS OR LUNG (4) SCC (squamous cell carcinoma of lung) Code(s): C34.90 - MALIGNANT NEOPLASM OF UNSP PART OF UNSP BRONCHUS OR LUNG Assessment/Plan WILL TRANSFER TO 7TH FLOOR ONCOLOGY FLOOR HAS MORE EXPERIENCE ACCESSING PORT CAN USE PORT FOR IV MEDS AND LAB DRAWS OOB TO CHAIR PT
[2018-09-29 12:56] LABS: ANISOCYTOSIS 2+; MACROCYTOSIS 1+; PLATELET ESTIMATE NORMAL; TEAR DROP CELLS 1+
[2018-09-29] MEDS: ALBUTEROL SO4 0.083% IH SOL 2.5 MG/3 ML VIAL.NEB. NEB SCH ×2 (15:26→20:30)
[2018-09-29] MEDS: ACETYLCYSTEINE 20% 200MG/ML 4 ML VIAL *FOR ORAL / INH USE ONLY NEB SCH ×2 (15:26→20:30)
--- NOTE | 2018-09-29 17:43 | CONSULT ---
Consult Consult Specialty:: Hematology and Medical Oncology Reason for Consultation:: Stage IV NSCLC on PD-1 checkpoint inhibitor therapy. Admitted for SOB - History of Present Illness Chief Complaint: SOB History of Present Illness: 73 y/o lady with Stage IV NSCLC (s/p Right Upper Lobectomy) on PD-1 checkpoint inhibitor therapy. Previously admitted with acute on chronic respiratory failure. She was treated with immunotherapy recently (Monday per patient) and on Monday (yesterday) woke up with SOB prompting to seek emergent medical help. Denied fevers, chills, productive cough or any other symptom coomaptible with infection. In the ER was treated with Solumedrol, Nebs and broad spectrum antibiotics (Vanco+Zosyn). Durign my interview today she is upset about getting antibiotics without knowing the reason. She was anxious and requested information on VRE, need for ATB therapy and anti-anxiety therapy - History Source History Provided By: Patient Limitations to Obtaining History: No Limitations - Past Medical History Cardio/Vascular: Yes: HTN Pulmonary: Yes: Bronchitis, Cancer, COPD, Pneumonia, Other (Lung cancer --stage IIB . squamous cell). No: Asthma, Previously Intubated, Pulmonary Embolus, Pulmonary Fibrosis, Sleep Apnea Rheumatology: Yes: Other (rheumatoid arthritis) - Alcohol/Substance Use Hx Alcohol Use: No - Smoking History Smoking history: Unknown if ever smoked Have you smoked in the past 12 months: No Aproximately how many cigarettes per day: 10 If you are a former smoker, when did you quit?: 12/16/14 - Social History ADL: Independent History of Recent Travel: No Home Medications - Allergies Allergies/Adverse Reactions: Allergies Allergy/AdvReac Type Severity Reaction Status Date / Time aspirin AdvReac Mild Verified 09/28/18 07:56 - Home Medications Home Medications: Ambulatory Orders Alprazolam [Xanax] 0.25 mg PO DAILY 06/15/18 Blood-Glucose Meter [Freestyle Lite Meter] 1 each [facility] 06/15/18 Losartan Potassium [Cozaar -] 50 mg PO DAILY 06/15/18 Pantoprazole Sodium [Protonix -] 40 mg PO DAILY 06/15/18 Zolpidem Tartrate [Ambien] 10 mg PO DAILY 06/15/18 Acetaminophen [Tylenol .Extra-Strength -] 500 mg PO Q6H PRN tablet 06/19/18 Atovaquone [Mepron Oral Solution -] 1,500 mg PO DAILY@0800 #1 bottle 06/19/18 Albuterol Sulfate Inhaler - [Ventolin HFA Inhaler -] 2 puff IH Q6H PRN inhaler 06/25/18 Amlodipine Besylate [Norvasc -] 5 mg PO DAILY tablet 06/25/18 Leflunomide [Arava -] 20 mg PO DAILY #60 tablet 06/25/18 Sulfasalazine [Azulfidine En-Tabs -] 1,000 mg PO BID #120 tablet. 06/25/18 predniSONE [Deltasone -] 15 mg PO BID #60 tablet 06/25/18 traMADol HCL [Ultram -] 50 mg PO Q8H PRN tablet MDD 3 06/25/18 Furosemide [Lasix -] 20 mg PO DAILY #30 tablet 08/29/18 Acetaminophen [Tylenol .Regular Strength -] 650 mg PO Q4H PRN tablet 09/20/18 predniSONE [Deltasone -] 20 mg PO DAILY #14 tablet 09/20/18 Albuterol 0.083% Nebulizer Yudy [Ventolin 0.083% Nebulizer Soln -] 1 amp NEB RQID amp 09/24/18 Guaifenesin [Robitussin -] 10 ml PO Q6H PRN cup 09/24/18 Review of Systems - Review of Systems Constitutional: reports: No Symptoms Eyes: reports: No Symptoms HENT: reports: No Symptoms Neck: reports: No Symptoms Cardiovascular: reports: No Symptoms Respiratory: reports: SOB, SOB on Exertion (SOB, acute and on exertion. Anxiety may be playing a role) Gastrointestinal: reports: No Symptoms Genitourinary: reports: No Symptoms Breasts: reports: No Symptoms Reported Musculoskeletal: reports: No Symptoms Integumentary: reports: No Symptoms Neurological: reports: No Symptoms Endocrine: reports: No Symptoms Hematology/Lymphatic: reports: No Symptoms Psychiatric: reports: No Symptoms Physical Exam Vital Signs: Vital Signs Temperature 97.9 F 09/29/18 15:54 Pulse Rate 100 H 09/29/18 15:54 Respiratory Rate 28 H 09/29/18 15:54 Blood Pressure 141/79 09/29/18 15:54 O2 Sat by Pulse Oximetry (%) 94 L 09/28/18 22:00 Constitutional: Yes: Well Nourished, Anxious (Anxious most of the interview. Relaxed later with mucomyst neb and addressing all of her concerns) Eyes: Yes: WNL, Conjunctiva Clear, EOM Intact HENT: Yes: WNL, Atraumatic, Normocephalic Cardiovascular: Yes: WNL, Regular Rate and Rhythm Respiratory: Yes: Diminished Gastrointestinal: Yes: WNL, Normal Bowel Sounds, Soft ...Rectal Exam: Yes: Deferred Renal/: Yes: WNL Breast(s): Yes: WNL Musculoskeletal: Yes: WNL Extremities: Yes: WNL Integumentary: Yes: WNL Labs: CBC, BMP 09/29/18 06:50 09/29/18 06:50 Problem List - Problems (1) Metastatic lung cancer (metastasis from lung to other site) Code(s): C34.90 - MALIGNANT NEOPLASM OF UNSP PART OF UNSP BRONCHUS OR LUNG Assessment/Plan 73 y/o lady with Stage IV NSCLC on PD-1 checkpoint inhibitor therapy recently admitted for acute on chronic respiratory failure and now readmitted for Shortness of breath 1. Stage IV NSCLC: Continue PD-[address] Paige. Will monitor for PD-1 induced pneumonitis but this appears very unlikely at this time. On the other hand, given significant thoracic disease volume, disease progression cannot be ruled out. 2. Acute Shortness of breath: Unclear if this is related to anxiety or SOB precedes the anxiety. She was not SOB but anxious during my visit and this may contribute to her presentation. She was treated with broad spectrum antibiotics , however, there is no overt evidence of infection at his time. Agree with stopping antibiotics and observing for 24-48 hr. Responding well to mucomyst nebulizations. I 3. Anxiety: She was visibly anxious during my visit. I discussed it with her and her small stock facer. I took the liberty to increase her Xanax to 0.5 mg Q 6hrs prn : anxiety. 4. Thank you for this consultation.
[2018-09-29] MEDS ORDERED: traMADol HCL 50 MG TABLET PO PRN (22:01)
[2018-09-29] MEDS ORDERED: ZOLPIDEM TARTRATE 5 MG TABLET PO ONE (22:27)
[2018-09-29] MEDS ORDERED: predniSONE 20 MG TABLET (UD) PO ONE (22:39)
--- NOTE | 2018-09-29 22:48 | PN ---
Progress Note (short form) - Note Progress Note: Episodic Note 09/29/2018@10:35pm Called by RN. Patient refusing to have jess cath accessed tonight. Patient was seen at bedside and spoke to her and she appeared frustrated and stated she does not want jess cath accessed tonight. She was made aware she needs IV medrol and IV lasix and she continued to refuse medications. She was ordered one dosage of oral prednisone 20mg tonight. Pulmonary following patient. Visit type - Emergency Visit Emergency Visit: No - New Patient This patient is new to me today: Yes Date on this admission: 09/29/18 - Critical Care Critical Care patient: No
[2018-09-30] MEDS: ALPRAZolam 0.25 MG TABLET PO PRN (00:01)
[2018-09-30] MEDS: HEPARIN NA (PORCINE) 5,000 UNITS/ML 1ML VIAL SQ SCH ×3 (00:36→22:27)
[2018-09-30] MEDS: methylPREDNISolone NA SUCC 40 MG/1 ML VIAL IVPUSH SCH ×5 (00:39→22:25)
[2018-09-30] MEDS ORDERED: ONDANSETRON *ODT* 4 MG TABLET SL ONE (01:03)
[2018-09-30] MEDS ORDERED: FUROSEMIDE 20 MG TABLET (FP) PO ONE (06:00)
[2018-09-30] MEDS: ACETYLCYSTEINE 20% 200MG/ML 4 ML VIAL *FOR ORAL / INH USE ONLY NEB SCH ×4 (08:19→20:38)
[2018-09-30] MEDS: ALBUTEROL SO4 0.083% IH SOL 2.5 MG/3 ML VIAL.NEB. NEB SCH ×4 (08:20→20:38)
[2018-09-30] MEDS ORDERED: PT OWN MED DRAWER 7, Y5N ONE ×4 (08:58→22:26)
[2018-09-30] MEDS: PANTOPRAZOLE 40 MG TABLET (FP) PO SCH (10:08)
[2018-09-30] MEDS: LOSARTAN POTASSIUM 50 MG TABLET (FP) PO SCH (10:08)
[2018-09-30] MEDS: FUROSEMIDE 40 MG/4 ML INJECTABLE VIAL IVPUSH SCH (10:09)
[2018-09-30] MEDS: ATOVAQUONE 750 MG/5 ML (UNIT-DOSE PACKAGING) PO SCH (10:10)
[2018-09-30] MEDS: LEFLUNOMIDE 10 MG TABLET PO SCH (10:11)
--- NOTE | 2018-09-30 11:44 | PN ---
Progress Note, Physician Chief Complaint: AWAKE ALERT FEELS ANXIOUS DENIES CHEST PAIN +SOB BUT RELIEVED ON 02NC - Current Medication List Current Medications: Active Medications Acetylcysteine (Mucomyst 20 Oral / Inh Use Only*) 200 mg NEB RQID [facility] Last Admin: 09/30/18 08:19 Dose: 200 mg Albuterol Sulfate (Ventolin 0.083% Nebulizer Soln -) 1 amp NEB Q4H PRN PRN Reason: SHORT OF BREATH/WHEEZING Albuterol Sulfate (Ventolin 0.083% Nebulizer Soln -) 1 amp NEB RQID [facility] Last Admin: 09/30/18 08:20 Dose: 1 amp Alprazolam (Xanax -) 0.5 mg PO Q6H PRN PRN Reason: ANXIETY Last Admin: 09/30/18 00:01 Dose: 0.5 mg Atovaquone (Mepron -) 1,500 mg PO DAILY@0800 [facility] Last Admin: 09/30/18 10:10 Dose: 1,500 mg Furosemide (Lasix Injection -) 40 mg IVPUSH DAILY [facility] Last Admin: 09/30/18 10:09 Dose: Not Given Furosemide (Lasix -) 20 mg PO ONCE [facility] Last Admin: 09/30/18 00:15 Dose: 20 mg Heparin Sodium (Porcine) (Heparin -) 5,000 unit SQ BID [facility] Last Admin: 09/30/18 10:12 Dose: Not Given Piperacillin Sod/Tazobactam (Sod 3.375 gm/ Dextrose) 50 mls @ 100 mls/hr IVPB Q8H-IV [facility]; Protocol Leflunomide (Arava -) 20 mg PO DAILY [facility] Last Admin: 09/30/18 10:11 Dose: 20 mg Losartan Potassium (Cozaar -) 50 mg PO DAILY [facility] Last Admin: 09/30/18 10:08 Dose: 50 mg Methylprednisolone Sodium Succinate (Solu-Medrol -) 40 mg IVPUSH Q6H-IV [facility] Last Admin: 09/30/18 10:09 Dose: 40 mg Pantoprazole Sodium (Protonix -) 40 mg PO DAILY [facility] Last Admin: 09/30/18 10:08 Dose: 40 mg Sulfasalazine (Azulfidine En-Tabs -) 1,000 mg PO BID [facility] Last Admin: 09/30/18 10:12 Dose: 1,000 mg Tramadol HCl (Ultram -) 50 mg PO Q8H PRN PRN Reason: PAIN LEVEL 7 - 10 - Objective Vital Signs: Vital Signs Temperature 97.8 F 09/30/18 10:00 Pulse Rate 115 H 09/30/18 10:00 Respiratory Rate 20 09/30/18 10:00 Blood Pressure 158/78 09/30/18 10:00 O2 Sat by Pulse Oximetry (%) 94 L 09/29/18 21:00 Constitutional: Yes: Mild Distress Cardiovascular: Yes: Tachycardia Respiratory: Yes: Diminished, On Nasal O2 Gastrointestinal: Yes: WNL, Soft Genitourinary: Yes: WNL Musculoskeletal: Yes: Muscle Weakness Edema: No Integumentary: Yes: WNL Wound/Incision: Yes: Clean/Dry Neurological: Yes: WNL ...Motor Strength: WNL Psychiatric: Yes: WNL Labs: CBC, BMP 09/29/18 06:50 09/29/18 06:50 INR, PTT INR 1.17 (0.83-1.09) H 09/29/18 06:50 Problem List - Problems (1) COPD (chronic obstructive pulmonary disease) Code(s): J44.9 - CHRONIC OBSTRUCTIVE PULMONARY DISEASE, UNSPECIFIED (2) Diabetes Code(s): E11.9 - TYPE 2 DIABETES MELLITUS WITHOUT COMPLICATIONS (3) Metastatic lung cancer (metastasis from lung to other site) Code(s): C34.90 - MALIGNANT NEOPLASM OF UNSP PART OF UNSP BRONCHUS OR LUNG (4) SCC (squamous cell carcinoma of lung) Code(s): C34.90 - MALIGNANT NEOPLASM OF UNSP PART OF UNSP BRONCHUS OR LUNG Assessment/Plan IV STEROIDS VIS PORT ACCESS STOP ALBUTEROL WITH TACHYCARDIA XANAX PRN AGREE PULM/ONCOLOGY FOLLOW UP OOB TO CHAIR I WARNED THE PATIENT OF THE EFFECT OF BOTH XANAX AND AMBIEN FALL RISKS ALSO D/W PATIENT DVT PROPHYLAXIS TAPER STEROIDS
[2018-09-30] MEDS ORDERED: ALBUTEROL SO4 0.083% IH SOL 2.5 MG/3 ML VIAL.NEB. NEB PRN (11:45)
--- NOTE | 2018-09-30 11:50 | EKG ---
Test Reason : Blood Pressure : / mmHG Vent. Rate : 116 BPM Atrial Rate : 116 BPM P-R Int : 152 ms QRS Dur : 070 ms QT Int : 320 ms P-R-T Axes : 059 041 103 degrees QTc Int : 444 ms SINUS TACHYCARDIA WITH OCCASIONAL PREMATURE VENTRICULAR COMPLEXES ABNORMAL QRS-T ANGLE, CONSIDER PRIMARY T WAVE ABNORMALITY ABNORMAL ECG WHEN COMPARED WITH ECG OF 20-SEP-2018 14:48, NO SIGNIFICANT CHANGE WAS FOUND Confirmed by TERESE BERRIOS, GERSON ([id number]) on 09/30/2018 11:50:24 AM Referred By: Confirmed By:GERSON GUDINO MD
--- NOTE | 2018-09-30 12:18 | PN ---
Progress Note (short form) - Note Progress Note: Feels better today. Less SOB. No acute events overnight. Intake & Output 09/27/18 09/28/18 09/29/18 09/30/18 23:59 23:59 23:59 23:59 Intake Total 770 240 Balance 770 240 Weight 195 lb Last Vital Signs Temp Pulse Resp BP Pulse Ox 97.8 F 115 H 20 158/78 94 L 09/30/18 10:00 09/30/18 10:00 09/30/18 10:00 09/30/18 10:00 09/29/18 21:00 Active Medications Acetylcysteine (Mucomyst 20 Oral / Inh Use Only*) 200 mg NEB RQID [facility] Last Admin: 09/30/18 12:05 Dose: 200 mg Albuterol Sulfate (Ventolin 0.083% Nebulizer Soln -) 1 amp NEB RQID [facility] Last Admin: 09/30/18 12:05 Dose: 1 amp Alprazolam (Xanax -) 0.5 mg PO Q6H PRN PRN Reason: ANXIETY Last Admin: 09/30/18 00:01 Dose: 0.5 mg Atovaquone (Mepron -) 1,500 mg PO DAILY@0800 [facility] Last Admin: 09/30/18 10:10 Dose: 1,500 mg Furosemide (Lasix Injection -) 40 mg IVPUSH DAILY [facility] Last Admin: 09/30/18 10:09 Dose: Not Given Furosemide (Lasix -) 20 mg PO ONCE [facility] Last Admin: 09/30/18 00:15 Dose: 20 mg Heparin Sodium (Porcine) (Heparin -) 5,000 unit SQ BID [facility] Last Admin: 09/30/18 10:12 Dose: Not Given Piperacillin Sod/Tazobactam (Sod 3.375 gm/ Dextrose) 50 mls @ 100 mls/hr IVPB Q8H-IV [facility]; Protocol Leflunomide (Arava -) 20 mg PO DAILY [facility] Last Admin: 09/30/18 10:11 Dose: 20 mg Losartan Potassium (Cozaar -) 50 mg PO DAILY [facility] Last Admin: 09/30/18 10:08 Dose: 50 mg Methylprednisolone Sodium Succinate (Solu-Medrol -) 40 mg IVPUSH Q6H-IV [facility] Last Admin: 09/30/18 10:09 Dose: 40 mg Pantoprazole Sodium (Protonix -) 40 mg PO DAILY [facility] Last Admin: 09/30/18 10:08 Dose: 40 mg Sulfasalazine (Azulfidine En-Tabs -) 1,000 mg PO BID [facility] Last Admin: 09/30/18 10:12 Dose: 1,000 mg Tramadol HCl (Ultram -) 50 mg PO Q8H PRN PRN Reason: PAIN LEVEL 7 - 10 Constitutional: Yes: NAD Eyes: Yes: Conjunctiva Clear, EOM Intact Neck: Yes: Supple, Trachea Midline Cardiovascular: Yes: Tachycardia Respiratory: Yes: Cough, Diminished, On Nasal O2, Rhonchi, SOB, SOB on Exertion , Tachypnea, Wheezes. No: Rales, Stridor ...Inspection: Yes: WNL ...Clubbing: No Gastrointestinal: Yes: Normal Bowel Sounds, Soft, Abdomen, Obese Renal/: Yes: WNL Musculoskeletal: Yes: WNL Extremities: Yes: WNL Edema: Yes Peripheral Pulses WNL: Yes Integumentary: Yes: WNL Neurological: Yes: WNL, Alert, Oriented ...Motor Strength: WNL Psychiatric: Yes: WNL, Alert, Oriented Labs: Laboratory Results - last 24 hr 09/29/18 06:50 Neutrophils % (Manual) 87.1 H Band Neutrophils % 1.0 Lymphocytes % (Manual) 7.9 L D Monocytes % (Manual) 2 L Eosinophils % (Manual) 0.0 D Basophils % (Manual) 0.0 Myelocytes % (Man) 0 Promyelocytes % (Man) 0 Blast Cells % (Manual) 0 Metamyelocytes 0 D Hypochromia 1+ Platelet Estimate Normal Polychromasia 2+ Poikilocytosis 1+ Anisocytosis 2+ Microcytosis 1+ Macrocytosis 1+ Spherocytes 1+ Tear Drop Cells 1+ Problem List - Problems (1) COPD (chronic obstructive pulmonary disease) Code(s): J44.9 - CHRONIC OBSTRUCTIVE PULMONARY DISEASE, UNSPECIFIED (2) Acute on chronic respiratory failure with hypoxemia Code(s): J96.21 - ACUTE AND CHRONIC RESPIRATORY FAILURE WITH HYPOXIA (3) Diabetes Code(s): E11.9 - TYPE 2 DIABETES MELLITUS WITHOUT COMPLICATIONS (4) GERD (gastroesophageal reflux disease) Code(s): K21.9 - GASTRO-ESOPHAGEAL REFLUX DISEASE WITHOUT ESOPHAGITIS (5) Insomnia Code(s): G47.00 - INSOMNIA, UNSPECIFIED (6) Metastatic lung cancer (metastasis from lung to other site) Code(s): C34.90 - MALIGNANT NEOPLASM OF UNSP PART OF UNSP BRONCHUS OR LUNG (7) Rheumatoid arthritis Code(s): M06.9 - RHEUMATOID ARTHRITIS, UNSPECIFIED (8) SCC (squamous cell carcinoma of lung) Code(s): C34.90 - MALIGNANT NEOPLASM OF UNSP PART OF UNSP BRONCHUS OR LUNG (9) SOB (shortness of breath) Code(s): R06.02 - SHORTNESS OF BREATH (10) Stage 4 lung cancer Code(s): C34.90 - MALIGNANT NEOPLASM OF UNSP PART OF UNSP BRONCHUS OR LUNG (11) Tachycardia Code(s): R00.0 - TACHYCARDIA, UNSPECIFIED (12) Anxiety Code(s): F41.9 - ANXIETY DISORDER, UNSPECIFIED (13) Depression Code(s): F32.9 - MAJOR DEPRESSIVE DISORDER, SINGLE EPISODE, UNSPECIFIED (14) HTN (hypertension) Code(s): I10 - ESSENTIAL (PRIMARY) HYPERTENSION (15) Maintenance chemotherapy following disease Code(s): Z51.11 - ENCOUNTER FOR ANTINEOPLASTIC CHEMOTHERAPY Assessment/Plan Albuterol with Mucomyst nebulizer: Hold Atrovent as this is anti-muscarinic and will thicken her secretions further O2 as needed Medrol Noted ABX: doubt respiratory infection: Low threshold to DC No smoking VTE prophylaxis Patient has not made any decisions on [facility] Dr Sanabria Problem List - Problems (1) COPD (chronic obstructive pulmonary disease) Code(s): J44.9 - CHRONIC OBSTRUCTIVE PULMONARY DISEASE, UNSPECIFIED (2) Acute on chronic respiratory failure with hypoxemia Code(s): J96.21 - ACUTE AND CHRONIC RESPIRATORY FAILURE WITH HYPOXIA (3) Diabetes Code(s): E11.9 - TYPE 2 DIABETES MELLITUS WITHOUT COMPLICATIONS (4) GERD (gastroesophageal reflux disease) Code(s): K21.9 - GASTRO-ESOPHAGEAL REFLUX DISEASE WITHOUT ESOPHAGITIS (5) Insomnia Code(s): G47.00 - INSOMNIA, UNSPECIFIED (6) Metastatic lung cancer (metastasis from lung to other site) Code(s): C34.90 - MALIGNANT NEOPLASM OF UNSP PART OF UNSP BRONCHUS OR LUNG (7) Rheumatoid arthritis Code(s): M06.9 - RHEUMATOID ARTHRITIS, UNSPECIFIED (8) SCC (squamous cell carcinoma of lung) Code(s): C34.90 - MALIGNANT NEOPLASM OF UNSP PART OF UNSP BRONCHUS OR LUNG (9) SOB (shortness of breath) Code(s): R06.02 - SHORTNESS OF BREATH (10) Stage 4 lung cancer Code(s): C34.90 - MALIGNANT NEOPLASM OF UNSP PART OF UNSP BRONCHUS OR LUNG (11) Tachycardia Code(s): R00.0 - TACHYCARDIA, UNSPECIFIED (12) Anxiety Code(s): F41.9 - ANXIETY DISORDER, UNSPECIFIED (13) Depression Code(s): F32.9 - MAJOR DEPRESSIVE DISORDER, SINGLE EPISODE, UNSPECIFIED (14) HTN (hypertension) Code(s): I10 - ESSENTIAL (PRIMARY) HYPERTENSION (15) Maintenance chemotherapy following disease Code(s): Z51.11 - ENCOUNTER FOR ANTINEOPLASTIC CHEMOTHERAPY
--- NOTE | 2018-09-30 13:24 | PN ---
Progress Note (short form) - Note Progress Note: ID consult dictated imp/reccd 73 yo just discharged from the hospital, history stage 4 lung cancer, on immunotherap admitted 09/28 with worsening SOB/CHU no fevers no hemoptysis white sputum productin received vanco/zosyn in ED on 09/28 no antibiotics since cxray reviewed with pulmonary copd exacerbation stage 4 lung cancer-not neutropenic doubt pneumonia she has refused the iv antibiotics and is improving would continue to observe off antibiotics at this time please call back if needed Problem List - Problems (1) COPD exacerbation Code(s): J44.1 - CHRONIC OBSTRUCTIVE PULMONARY DISEASE W (ACUTE) EXACERBATION (2) Stage 4 lung cancer Code(s): C34.90 - MALIGNANT NEOPLASM OF UNSP PART OF UNSP BRONCHUS OR LUNG
[2018-09-30] MEDS ORDERED: ONDANSETRON 4 MG/2 ML VIAL IVPUSH PRN (14:56)
--- NOTE | 2018-09-30 19:13 | CONS ---
DATE OF CONSULTATION: DATE OF DICTATION: 09/30/2018 REQUESTING PROVIDER: Lior Toro MD This is a 73-year-old woman who I know. She has a history of stage 4 lung cancer. She was just in the hospital from September 11 to September 24. She is status post right upper lobe lobectomy in 2014. She is on immunotherapy and just got treated this week. She presented to the emergency room on the with complaints of worsening shortness of breath. She denied any fevers or hemoptysis. She had white sputum production. She was given a dose of Zosyn and vancomycin in the ER. She never received any follow up antibiotics as she refused them. I am asked to see her for further evaluation. She was started on IV Solu-Medrol and nebulizers with Mucomyst by Pulmonary and she reports feeling markedly improved. PAST MEDICAL HISTORY: Notable for stage 4 lung cancer. She is on immunotherapy, rheumatoid arthritis on prednisone, hypertension, and congestive heart failure. SURGICAL HISTORY: Notable for right upper lobe lobectomy and she is status post port placement. SOCIAL HISTORY: She is a former smoker. She lives alone. There is no history of any recent travel. She has no sick contacts. MEDICATIONS: Include prednisone, Ambien, sulfasalazine, Protonix, Cozaar, Ariba, Robitussin, Lasix, Mepron, Norvasc, Xanax, albuterol inhaler, albuterol nebulizer, and tramadol. She recently had chest imaging on September 16 that was notable for multiple bilateral pulmonary masses consistent with metastatic disease. She had some small bilateral pleural effusions and atelectasis. REVIEW OF SYSTEMS: She has no complaints. PHYSICAL EXAMINATION: Vital Signs: She is afebrile. Her pulse is 101, blood pressure 151/93, respiratory rate is 20. She is saturating 95% on 3 L. HEENT: She is normocephalic. Her eyes are anicteric. Neck: Supple. Lungs: Diminished breath sounds at the bases. She has scattered wheezes. Heart: Regular rate and rhythm. Abdomen: Soft, nontender. Extremities: Without edema. DIAGNOSTIC DATA: White count is 8.3, hemoglobin 8.1, platelets are 228. BUN is 21 and creatinine is 1.1. Liver function tests are normal. Urinalysis is negative. Chest x-ray revealed bilateral pulmonary masses, reviewed with the remote coders. IN SUMMARY: This is a 73-year-old woman who appears to be improving. I suspect this is a COPD exacerbation and I doubt she has pneumonia, stage 4 lung cancer. She is not neutropenic. Given the fact that she is improving off of antibiotics, I would continue the present course of treatment and observe her off of antibiotics. Further recommendations to follow. Please call back if needed. EVAN FLORES M.D. [id number]
[2018-09-30] MEDS: amLODIPine BESYLATE 5 MG TABLET (FP) PO SCH (22:21)
[2018-09-30] MEDS: PIPERACILLIN/TAZOB 3.375 GM 3.375 GM in DEXTROSE 5%-WATER - 50 ML IVPB SCH (22:48)
[2018-09-30] MEDS ORDERED: ZOLPIDEM TARTRATE 5 MG TABLET PO ONE (23:07)
[2018-10-01] MEDS: ALPRAZolam 0.25 MG TABLET PO PRN ×2 (00:01→12:45)
[2018-10-01] MEDS: methylPREDNISolone NA SUCC 40 MG/1 ML VIAL IVPUSH SCH ×3 (05:20→18:02)
[2018-10-01] MEDS ORDERED: FUROSEMIDE 20 MG TABLET (FP) PO ONE (06:00)
[2018-10-01] MEDS: PIPERACILLIN/TAZOB 3.375 GM 3.375 GM in DEXTROSE 5%-WATER - 50 ML IVPB SCH (06:26)
[2018-10-01] MEDS: ACETYLCYSTEINE 20% 200MG/ML 4 ML VIAL *FOR ORAL / INH USE ONLY NEB SCH ×4 (07:40→20:18)
[2018-10-01] MEDS: ALBUTEROL SO4 0.083% IH SOL 2.5 MG/3 ML VIAL.NEB. NEB SCH ×4 (07:40→20:19)
[2018-10-01] MEDS: LOSARTAN POTASSIUM 50 MG TABLET (FP) PO SCH (09:36)
[2018-10-01] MEDS: ATOVAQUONE 750 MG/5 ML (UNIT-DOSE PACKAGING) PO SCH (09:36)
[2018-10-01] MEDS: amLODIPine BESYLATE 5 MG TABLET (FP) PO SCH (09:36)
[2018-10-01] MEDS: FUROSEMIDE 40 MG/4 ML INJECTABLE VIAL IVPUSH SCH (09:36)
[2018-10-01] MEDS: HEPARIN NA (PORCINE) 5,000 UNITS/ML 1ML VIAL SQ SCH ×2 (09:36→22:12)
[2018-10-01] MEDS: PANTOPRAZOLE 40 MG TABLET (FP) PO SCH (09:37)
[2018-10-01] MEDS: LEFLUNOMIDE 10 MG TABLET PO SCH (09:49)
--- NOTE | 2018-10-01 11:19 | PN ---
Progress Note, Physician Chief Complaint: COPD Exacerbation Stage 4 Lung Cancer History of Present Illness: Previous notes and events reviewed awake and alert NAD sts her breathing is improving complain of productive cough with yellow phlegm denies chest pain - Current Medication List Current Medications: Active Medications Acetylcysteine (Mucomyst 20 Oral / Inh Use Only*) 200 mg NEB RQID [facility] Last Admin: 10/01/18 07:40 Dose: 200 mg Albuterol Sulfate (Ventolin 0.083% Nebulizer Soln -) 1 amp NEB RQID [facility] Last Admin: 10/01/18 07:40 Dose: 1 amp Alprazolam (Xanax -) 0.5 mg PO Q6H PRN PRN Reason: ANXIETY Last Admin: 10/01/18 00:01 Dose: 0.5 mg Amlodipine Besylate (Norvasc -) 5 mg PO DAILY [facility] Last Admin: 10/01/18 09:36 Dose: 5 mg Atovaquone (Mepron -) 1,500 mg PO DAILY@0800 [facility] Last Admin: 10/01/18 09:36 Dose: 1,500 mg Furosemide (Lasix Injection -) 40 mg IVPUSH DAILY [facility] Last Admin: 10/01/18 09:36 Dose: Not Given Heparin Sodium (Porcine) (Heparin -) 5,000 unit SQ BID [facility] Last Admin: 10/01/18 09:36 Dose: Not Given IV Flush (Selin-Cath Flush) 10 ml IVPUSH PRN PRN PRN Reason: FLUSH Leflunomide (Arava -) 20 mg PO DAILY [facility] Last Admin: 10/01/18 09:49 Dose: 20 mg Losartan Potassium (Cozaar -) 50 mg PO DAILY [facility] Last Admin: 10/01/18 09:36 Dose: 50 mg Methylprednisolone Sodium Succinate (Solu-Medrol -) 40 mg IVPUSH Q6H-IV [facility] Last Admin: 10/01/18 09:36 Dose: Not Given Ondansetron HCl (Zofran Injection) 4 mg IVPUSH Q6H PRN PRN Reason: NAUSEA Last Admin: 09/30/18 15:04 Dose: 4 mg Pantoprazole Sodium (Protonix -) 40 mg PO DAILY [facility] Last Admin: 10/01/18 09:37 Dose: 40 mg Sulfasalazine (Azulfidine En-Tabs -) 1,000 mg PO BID [facility] Last Admin: 10/01/18 09:49 Dose: 1,000 mg Tramadol HCl (Ultram -) 50 mg PO Q8H PRN PRN Reason: PAIN LEVEL 7 - 10 - Objective Vital Signs: Vital Signs Temperature 98.8 F 10/01/18 05:59 Pulse Rate 95 H 10/01/18 05:59 Respiratory Rate 18 10/01/18 05:59 Blood Pressure 145/90 10/01/18 05:59 O2 Sat by Pulse Oximetry (%) 95 09/30/18 20:34 Constitutional: Yes: No Distress, Calm Eyes: Yes: Conjunctiva Clear HENT: Yes: Atraumatic Cardiovascular: Yes: Regular Rate and Rhythm Respiratory: Yes: Regular, Cough, On Nasal O2, Rhonchi Gastrointestinal: Yes: Normal Bowel Sounds, Soft Musculoskeletal: Yes: Muscle Weakness Extremities: Yes: WNL Edema: No Neurological: Yes: Alert, Oriented Psychiatric: Yes: Alert, Oriented Labs: CBC, BMP 09/29/18 06:50 09/29/18 06:50 INR, PTT INR 1.17 (0.83-1.09) H 09/29/18 06:50 Problem List - Problems (1) COPD (chronic obstructive pulmonary disease) Assessment/Plan: -Pulmonary on board -IV Medrol -Furosemide -O2 via NC -keep SpO2 >90% -bronchodilators -CXR shows bilateral lung masses with possible superimposed basilar infiltrates -afebrile -no leukocytosis Code(s): J44.9 - CHRONIC OBSTRUCTIVE PULMONARY DISEASE, UNSPECIFIED (2) THIAGO (acute kidney injury) Assessment/Plan: -BUN/Cr 21.4/1.1 -monitor renal function Code(s): N17.9 - ACUTE KIDNEY FAILURE, UNSPECIFIED (3) GERD (gastroesophageal reflux disease) Assessment/Plan: -Pantoprazole Code(s): K21.9 - GASTRO-ESOPHAGEAL REFLUX DISEASE WITHOUT ESOPHAGITIS (4) SCC (squamous cell carcinoma of lung) Assessment/Plan: -Oncology on board Code(s): C34.90 - MALIGNANT NEOPLASM OF UNSP PART OF UNSP BRONCHUS OR LUNG (5) HTN (hypertension) Assessment/Plan: -Norvasc, Losartan -low Na diet Code(s): I10 - ESSENTIAL (PRIMARY) HYPERTENSION Assessment/Plan see problem list dvt ppx
--- NOTE | 2018-10-01 14:04 | PN ---
Progress Note (short form) - Note Progress Note: PULMONARY States breathing slightly improved. No fevers but feels cold. +cough nonproductive. Upset about amount of steroids given. Vital Signs Period Temp Pulse Resp BP Sys/Medeiros Pulse Ox Last 24 Hr 97.5 F-98.8 F 93-108 18-18 126-170/81-90 95-95 Gen: anxious Heart: RRR Lung: scattered rhonchi, wheezes Abd: soft, nontender Ext: no edema CBC, BMP 09/29/18 06:50 09/29/18 06:50 Active Medications Acetylcysteine (Mucomyst 20 Oral / Inh Use Only*) 200 mg NEB RQID [facility] Last Admin: 10/01/18 11:20 Dose: 200 mg Albuterol Sulfate (Ventolin 0.083% Nebulizer Soln -) 1 amp NEB RQID [facility] Last Admin: 10/01/18 11:20 Dose: 1 amp Alprazolam (Xanax -) 0.5 mg PO Q6H PRN PRN Reason: ANXIETY Last Admin: 10/01/18 12:45 Dose: 0.5 mg Amlodipine Besylate (Norvasc -) 5 mg PO DAILY [facility] Last Admin: 10/01/18 09:36 Dose: 5 mg Atovaquone (Mepron -) 1,500 mg PO DAILY@0800 [facility] Last Admin: 10/01/18 09:36 Dose: 1,500 mg Furosemide (Lasix Injection -) 40 mg IVPUSH DAILY [facility] Last Admin: 10/01/18 09:36 Dose: Not Given Heparin Sodium (Porcine) (Heparin -) 5,000 unit SQ BID [facility] Last Admin: 10/01/18 09:36 Dose: Not Given IV Flush (Selin-Cath Flush) 10 ml IVPUSH PRN PRN PRN Reason: FLUSH Leflunomide (Arava -) 20 mg PO DAILY [facility] Last Admin: 10/01/18 09:49 Dose: 20 mg Losartan Potassium (Cozaar -) 50 mg PO DAILY [facility] Last Admin: 10/01/18 09:36 Dose: 50 mg Methylprednisolone Sodium Succinate (Solu-Medrol -) 40 mg IVPUSH Q6H-IV [facility] Last Admin: 10/01/18 09:36 Dose: Not Given Ondansetron HCl (Zofran Injection) 4 mg IVPUSH Q6H PRN PRN Reason: NAUSEA Last Admin: 09/30/18 15:04 Dose: 4 mg Pantoprazole Sodium (Protonix -) 40 mg PO DAILY [facility] Last Admin: 10/01/18 09:37 Dose: 40 mg Sulfasalazine (Azulfidine En-Tabs -) 1,000 mg PO BID [facility] Last Admin: 10/01/18 09:49 Dose: 1,000 mg Tramadol HCl (Ultram -) 50 mg PO Q8H PRN PRN Reason: PAIN LEVEL 7 - 10 A/P Acute COPD Exacerbation Advanced NSCLC DM HTN Anxiety - can decrease medrol to q8h - inhaled bronchodilators - O2 to keep SpO2>90% - glucose control - DVT prophylaxis - continue discussions regarding goals of care
[2018-10-01] MEDS ORDERED: methylPREDNISolone NA SUCC 40 MG/1 ML VIAL IVPUSH ONE (16:15)
--- NOTE | 2018-10-01 19:51 | PN ---
Progress Note (short form) - Note Progress Note: PAtient seen and examined Feels ok Last Vital Signs Temp Pulse Resp BP Pulse Ox 99.7 F H 105 H 20 117/69 95 10/01/18 17:27 10/01/18 17:27 10/01/18 17:27 10/01/18 17:27 10/01/18 09:00 Cor: RSR, No murmurs, No gallops Lungs: b/l rhonchi Abd: Soft, Normal bowel sounds, No organomegaly Ext:No significant edema LAbs/MEeds reviewed A/P Metastatic lung ca on nivolumab LLL infiltrate On antibiotics/ steroids --clinically improved Repeat CT chest--stable disease. But significant tumor burden. Received several lines of treatment Ongoing discussions with patient regarding goals of care will consider rehab placement discussed with friend and healthcare proxy Loyda
[2018-10-01] MEDS ORDERED: PT OWN MED DRAWER 7, Y5N ONE (21:22)
[2018-10-02] MEDS: ZOLPIDEM TARTRATE 5 MG TABLET PO PRN (01:16)
[2018-10-02] MEDS: methylPREDNISolone NA SUCC 40 MG/1 ML VIAL IVPUSH SCH ×3 (01:16→17:07)
[2018-10-02] MEDS: ALPRAZolam 0.25 MG TABLET PO PRN (01:16)
[2018-10-02] MEDS: FUROSEMIDE 40 MG/4 ML INJECTABLE VIAL IVPUSH SCH ×2 (07:01→09:03)
[2018-10-02] MEDS: ACETYLCYSTEINE 20% 200MG/ML 4 ML VIAL *FOR ORAL / INH USE ONLY NEB SCH ×4 (07:30→20:14)
[2018-10-02] MEDS: ALBUTEROL SO4 0.083% IH SOL 2.5 MG/3 ML VIAL.NEB. NEB SCH ×4 (07:30→20:12)
[2018-10-02 07:32] LABS: HEMATOCRIT 25.5 % (32.4-45.2); HEMOGLOBIN 8.3 GM/dL (10.7-15.3); MCH 29.5 pg (25.7-33.7); MCHC 32.4 g/dl (32.0-36.0); MEAN CELL VOLUME 90.8 fl (80-96); MEAN PLT VOLUME 7.8 fl (7.5-11.1); PLATELET COUNT 226 K/MM3 (134-434); RDW 17.9 % (11.6-15.6); WHITE BLOOD COUNT 5.2 K/mm3 (4.0-10.0)
[2018-10-02 08:12] LABS: ALBUMIN 2.6 g/dl (3.4-5.0); BILIRUBIN,TOTAL 0.8 mg/dL (0.2-1); BLOOD UREA NITROGEN 18.2 mg/dL (7-18); CALCIUM 8.6 mg/dL (8.5-10.1); CREATININE 1.2 mg/dL (0.55-1.3); TOT PROT 5.5 g/dl (6.4-8.2)
--- NOTE | 2018-10-02 08:25 | PN ---
Progress Note, Physician Chief Complaint: AWAKE ALERT FEELS BETTER - Current Medication List Current Medications: Active Medications Acetylcysteine (Mucomyst 20 Oral / Inh Use Only*) 200 mg NEB RQID [facility] Last Admin: 10/01/18 20:18 Dose: 200 mg Albuterol Sulfate (Ventolin 0.083% Nebulizer Soln -) 1 amp NEB RQID [facility] Last Admin: 10/01/18 20:19 Dose: 1 amp Alprazolam (Xanax -) 0.5 mg PO Q6H PRN PRN Reason: ANXIETY Last Admin: 10/02/18 01:16 Dose: 0.5 mg Amlodipine Besylate (Norvasc -) 5 mg PO DAILY [facility] Last Admin: 10/01/18 09:36 Dose: 5 mg Atovaquone (Mepron -) 1,500 mg PO DAILY@0800 [facility] Last Admin: 10/01/18 09:36 Dose: 1,500 mg Furosemide (Lasix Injection -) 40 mg IVPUSH DAILY [facility] Last Admin: 10/02/18 07:01 Dose: 40 mg Heparin Sodium (Porcine) (Heparin -) 5,000 unit SQ BID [facility] Last Admin: 10/01/18 22:12 Dose: 5,000 unit IV Flush (Selin-Cath Flush) 10 ml IVPUSH PRN PRN PRN Reason: FLUSH Leflunomide (Arava -) 20 mg PO DAILY [facility] Last Admin: 10/01/18 09:49 Dose: 20 mg Losartan Potassium (Cozaar -) 50 mg PO DAILY [facility] Last Admin: 10/01/18 09:36 Dose: 50 mg Methylprednisolone Sodium Succinate (Solu-Medrol -) 40 mg IVPUSH Q8H-IV [facility] Last Admin: 10/02/18 01:16 Dose: 40 mg Ondansetron HCl (Zofran Injection) 4 mg IVPUSH Q6H PRN PRN Reason: NAUSEA Last Admin: 09/30/18 15:04 Dose: 4 mg Pantoprazole Sodium (Protonix -) 40 mg PO DAILY [facility] Last Admin: 10/01/18 09:37 Dose: 40 mg Sulfasalazine (Azulfidine En-Tabs -) 1,000 mg PO BID [facility] Last Admin: 10/01/18 22:12 Dose: 1,000 mg Tramadol HCl (Ultram -) 50 mg PO Q8H PRN PRN Reason: PAIN LEVEL 7 - 10 Zolpidem Tartrate (Ambien -) 5 mg PO HS PRN PRN Reason: INSOMNIA Last Admin: 10/02/18 01:16 Dose: 5 mg - Objective Vital Signs: Vital Signs Temperature 98.8 F 10/02/18 06:00 Pulse Rate 101 H 10/02/18 06:00 Respiratory Rate 22 H 10/02/18 06:00 Blood Pressure 154/89 10/02/18 06:00 O2 Sat by Pulse Oximetry (%) 95 10/01/18 21:00 Constitutional: Yes: Mild Distress Cardiovascular: Yes: Regular Rate and Rhythm Respiratory: Yes: Diminished Gastrointestinal: Yes: WNL Genitourinary: Yes: WNL Edema: No Peripheral Pulses WNL: Yes Integumentary: Yes: WNL Wound/Incision: Yes: Clean/Dry Neurological: Yes: WNL ...Motor Strength: WNL Psychiatric: Yes: WNL Labs: CBC, BMP 10/02/18 06:30 10/02/18 06:30 INR, PTT INR 1.17 (0.83-1.09) H 09/29/18 06:50 Problem List - Problems (1) COPD (chronic obstructive pulmonary disease) Code(s): J44.9 - CHRONIC OBSTRUCTIVE PULMONARY DISEASE, UNSPECIFIED (2) Diabetes Code(s): E11.9 - TYPE 2 DIABETES MELLITUS WITHOUT COMPLICATIONS (3) Metastatic lung cancer (metastasis from lung to other site) Code(s): C34.90 - MALIGNANT NEOPLASM OF UNSP PART OF UNSP BRONCHUS OR LUNG (4) SCC (squamous cell carcinoma of lung) Code(s): C34.90 - MALIGNANT NEOPLASM OF UNSP PART OF UNSP BRONCHUS OR LUNG Assessment/Plan IV STEROIDS VIS PORT ACCESS STOP ALBUTEROL WITH TACHYCARDIA XANAX PRN AGREE PULM/ONCOLOGY FOLLOW UP OOB TO CHAIR I WARNED THE PATIENT OF THE EFFECT OF BOTH XANAX AND AMBIEN FALL RISKS ALSO D/W PATIENT DVT PROPHYLAXIS TAPER STEROIDS SNF PLACEMENT
[2018-10-02] MEDS: amLODIPine BESYLATE 5 MG TABLET (FP) PO SCH (09:03)
[2018-10-02] MEDS: HEPARIN NA (PORCINE) 5,000 UNITS/ML 1ML VIAL SQ SCH ×2 (09:03→21:13)
[2018-10-02] MEDS: PANTOPRAZOLE 40 MG TABLET (FP) PO SCH (09:03)
[2018-10-02] MEDS: LOSARTAN POTASSIUM 50 MG TABLET (FP) PO SCH (09:03)
[2018-10-02] MEDS: ATOVAQUONE 750 MG/5 ML (UNIT-DOSE PACKAGING) PO SCH (09:04)
[2018-10-02] MEDS: LEFLUNOMIDE 10 MG TABLET PO SCH (09:04)
--- NOTE | 2018-10-02 16:21 | PN ---
Progress Note (short form) - Note Progress Note: PULMONARY States breathing improving. Less cough and wheezing. Vital Signs Period Temp Pulse Resp BP Sys/Medeiros Pulse Ox Last 24 Hr 97.9 F-99.7 F 93-106 20-22 117-154/69-91 95-98 Gen: less tachypneic Heart: RRR Lung: less rhonchi, wheezes Abd: soft, nontender Ext: no edema CBC, BMP 10/02/18 06:30 10/02/18 06:30 Active Medications Acetylcysteine (Mucomyst 20 Oral / Inh Use Only*) 200 mg NEB RQID [facility] Last Admin: 10/02/18 11:24 Dose: 200 mg Albuterol Sulfate (Ventolin 0.083% Nebulizer Soln -) 1 amp NEB RQID [facility] Last Admin: 10/02/18 11:24 Dose: 1 amp Alprazolam (Xanax -) 0.5 mg PO Q6H PRN PRN Reason: ANXIETY Last Admin: 10/02/18 01:16 Dose: 0.5 mg Amlodipine Besylate (Norvasc -) 5 mg PO DAILY [facility] Last Admin: 10/02/18 09:03 Dose: 5 mg Atovaquone (Mepron -) 1,500 mg PO DAILY@0800 [facility] Last Admin: 10/02/18 09:04 Dose: 1,500 mg Furosemide (Lasix Injection -) 40 mg IVPUSH DAILY [facility] Last Admin: 10/02/18 09:03 Dose: Not Given Heparin Sodium (Porcine) (Heparin -) 5,000 unit SQ BID [facility] Last Admin: 10/02/18 09:03 Dose: Not Given IV Flush (Selin-Cath Flush) 10 ml IVPUSH PRN PRN PRN Reason: FLUSH Leflunomide (Arava -) 20 mg PO DAILY [facility] Last Admin: 10/02/18 09:04 Dose: 20 mg Losartan Potassium (Cozaar -) 50 mg PO DAILY [facility] Last Admin: 10/02/18 09:03 Dose: 50 mg Methylprednisolone Sodium Succinate (Solu-Medrol -) 40 mg IVPUSH Q8H-IV [facility] Last Admin: 10/02/18 09:03 Dose: 40 mg Ondansetron HCl (Zofran Injection) 4 mg IVPUSH Q6H PRN PRN Reason: NAUSEA Last Admin: 09/30/18 15:04 Dose: 4 mg Pantoprazole Sodium (Protonix -) 40 mg PO DAILY [facility] Last Admin: 10/02/18 09:03 Dose: 40 mg Sulfasalazine (Azulfidine En-Tabs -) 1,000 mg PO BID [facility] Last Admin: 10/02/18 09:04 Dose: 1,000 mg Tramadol HCl (Ultram -) 50 mg PO Q8H PRN PRN Reason: PAIN LEVEL 7 - 10 Zolpidem Tartrate (Ambien -) 5 mg PO HS PRN PRN Reason: INSOMNIA Last Admin: 10/02/18 01:16 Dose: 5 mg A/P Acute COPD Exacerbation Advanced NSCLC DM HTN Anxiety - can decrease medrol to q12h - inhaled bronchodilators - O2 to keep SpO2>90% - glucose control - DVT prophylaxis - continue discussions regarding goals of care
--- NOTE | 2018-10-02 18:58 | PN ---
Progress Note (short form) - Note Progress Note: Patient seen and examined Breathing improved Chest pressure and pain improved Last Vital Signs Temp Pulse Resp BP Pulse Ox 98.0 F 106 H 20 132/91 98 10/02/18 14:43 10/02/18 14:43 10/02/18 14:43 10/02/18 14:43 10/02/18 09:00 Lungs -relatively clear Cor-RSR Abd- soft Ext- neg CBC, BMP 10/02/18 06:30 10/02/18 06:30 Current Medications Generic Name Dose Route Start Last Admin Trade Name Freq PRN Reason Stop Dose Admin Acetylcysteine 200 mg 09/30/18 08:00 10/02/18 16:47 Mucomyst 20 Oral / Inh Use Only* NEB 200 mg RQID RICHARD Administration Albuterol Sulfate 1 amp 09/30/18 08:00 10/02/18 16:47 Ventolin 0.083% Nebulizer Soln - NEB 1 amp RQID RICHARD Administration Alprazolam 0.5 mg 09/29/18 17:36 10/02/18 01:16 Xanax - PO 0.5 mg Q6H PRN Administration ANXIETY Amlodipine Besylate 5 mg 09/30/18 21:00 10/02/18 09:03 Norvasc - PO 5 mg DAILY RICHARD Administration Atovaquone 1,500 mg 09/30/18 08:00 10/02/18 09:04 Mepron - PO 1,500 mg DAILY@0800 RICHARD Administration Furosemide 40 mg 09/30/18 10:00 10/02/18 09:03 Lasix Injection - IVPUSH Not Given DAILY [facility] Heparin Sodium (Porcine) 5,000 unit 09/30/18 10:00 10/02/18 09:03 Heparin - SQ Not Given BID [facility] IV Flush 10 ml 09/30/18 16:50 Selin-Cath Flush IVPUSH PRN PRN FLUSH Leflunomide 20 mg 09/30/18 10:00 10/02/18 09:04 Arava - PO 20 mg DAILY RICHARD Administration Losartan Potassium 50 mg 09/30/18 10:00 10/02/18 09:03 Cozaar - PO 50 mg DAILY RICHARD Administration Methylprednisolone Sodium Succinate 40 mg 10/01/18 18:00 10/02/18 17:07 Solu-Medrol - IVPUSH 40 mg Q8H-IV RICHARD Administration Ondansetron HCl 4 mg 09/30/18 14:56 09/30/18 15:04 Zofran Injection IVPUSH 4 mg Q6H PRN Administration NAUSEA Pantoprazole Sodium 40 mg 09/30/18 10:00 10/02/18 09:03 Protonix - PO 40 mg DAILY R[facility]ARD Administration Sulfasalazine 1,000 mg 09/29/18 23:45 10/02/18 09:04 Azulfidine En-Tabs - PO 1,000 mg BID RICHARD Administration Tramadol HCl 50 mg 09/29/18 22:01 Ultram - PO Q8H PRN PAIN LEVEL 7 - 10 Zolpidem Tartrate 5 mg 10/01/18 22:00 10/02/18 01:16 Ambien - PO 5 mg HS PRN Administration INSOMNIA Impression: Lung ca Immunotherpay Rheumatoid arthritis Anemia Plan : per Pulmonary - begin taper of steroids. Monitor CBC
[2018-10-02] MEDS: methylPREDNISolone NA SUCC 40 MG/1 ML VIAL IVPB SCH (21:13)
[2018-10-03] MEDS: ALPRAZolam 0.25 MG TABLET PO PRN ×2 (00:08→23:45)
[2018-10-03] MEDS: ZOLPIDEM TARTRATE 5 MG TABLET PO PRN ×2 (00:08→23:45)
[2018-10-03] MEDS: FUROSEMIDE 40 MG/4 ML INJECTABLE VIAL IVPUSH SCH ×2 (06:48→09:29)
--- NOTE | 2018-10-03 07:37 | HOSP ---
Subjective - Review of Symptoms Events since last encounter: Hospitalist Encounter Notified by the RN that the patient is refusing to to take her Solumederol at the times Dr. Camarillo ordered. The patient requested the medication to be started at 9am and 9pm. I placed an order one time for 9am. The primary team will need to discuss with the patient the plan of care. Of note was also microblogged by the nurse that the patient requested that her Lasix be given at 6am and not 10am. I checked the medication MAR and noted that the RN documented giving the Lasix at 6:48. So an order was not placed Physical Examination Vital Signs: Vital Signs Temperature 98.5 F 10/03/18 06:00 Pulse Rate 91 H 10/03/18 06:00 Respiratory Rate 20 10/03/18 06:00 Blood Pressure 150/81 10/03/18 06:00 O2 Sat by Pulse Oximetry (%) 98 10/02/18 21:00 Labs: CBC, BMP 10/02/18 06:30 10/02/18 06:30
[2018-10-03] MEDS: ALBUTEROL SO4 0.083% IH SOL 2.5 MG/3 ML VIAL.NEB. NEB SCH ×4 (08:35→20:55)
[2018-10-03] MEDS: ACETYLCYSTEINE 20% 200MG/ML 4 ML VIAL *FOR ORAL / INH USE ONLY NEB SCH ×4 (08:35→20:54)
[2018-10-03] MEDS ORDERED: methylPREDNISolone NA SUCC 40 MG/1 ML VIAL IVPB ONE (09:00)
[2018-10-03] MEDS: ATOVAQUONE 750 MG/5 ML (UNIT-DOSE PACKAGING) PO SCH (09:23)
[2018-10-03] MEDS: PANTOPRAZOLE 40 MG TABLET (FP) PO SCH (09:26)
[2018-10-03] MEDS: LEFLUNOMIDE 10 MG TABLET PO SCH (09:27)
[2018-10-03] MEDS: LOSARTAN POTASSIUM 50 MG TABLET (FP) PO SCH (09:28)
[2018-10-03] MEDS: amLODIPine BESYLATE 5 MG TABLET (FP) PO SCH (09:28)
[2018-10-03] MEDS: predniSONE 20 MG TABLET (UD) PO SCH (09:29)
[2018-10-03] MEDS: HEPARIN NA (PORCINE) 5,000 UNITS/ML 1ML VIAL SQ SCH ×2 (09:29→21:14)
[2018-10-03] MEDS: methylPREDNISolone NA SUCC 40 MG/1 ML VIAL IVPB SCH (09:36)
[2018-10-03] MEDS: PORTA CATH FLUSH 10 ML IVPUSH PRN (11:22)
--- NOTE | 2018-10-03 21:22 | PN ---
Progress Note (short form) - Note Progress Note: Patient seen and examined Continues with SOB, dyspnea on minimal exertion Last Vital Signs Temp Pulse Resp BP Pulse Ox 98.8 F 104 H 20 152/81 97 10/03/18 18:00 10/03/18 18:00 10/03/18 18:00 10/03/18 18:00 10/03/18 09:00 Lungs- rhonchi Cor-RSR Abd-soft Ext-neg CBC, BMP 10/02/18 06:30 10/02/18 06:30 Current Medications Generic Name Dose Route Start Last Admin Trade Name Freq PRN Reason Stop Dose Admin Acetylcysteine 200 mg 09/30/18 08:00 10/03/18 20:54 Mucomyst 20 Oral / Inh Use Only* NEB Not Given RQID RICHARD Albuterol Sulfate 1 amp 09/30/18 08:00 10/03/18 20:55 Ventolin 0.083% Nebulizer Soln - NEB 1 amp RQID RICHARD Administration Alprazolam 0.5 mg 09/29/18 17:36 10/03/18 00:08 Xanax - PO 0.5 mg Q6H PRN Administration ANXIETY Amlodipine Besylate 5 mg 09/30/18 21:00 10/03/18 09:28 Norvasc - PO 5 mg DAILY RICHARD Administration Atovaquone 1,500 mg 09/30/18 08:00 10/03/18 09:23 Mepron - PO 1,500 mg DAILY@0800 RICHARD Administration Furosemide 40 mg 09/30/18 10:00 10/03/18 09:29 Lasix Injection - IVPUSH Not Given DAILY [facility] Heparin Sodium (Porcine) 5,000 unit 09/30/18 10:00 10/03/18 21:14 Heparin - SQ Not Given BID [facility] IV Flush 10 ml 09/30/18 16:50 10/03/18 11:22 Selin-Cath Flush IVPUSH 10 ml PRN PRN Administration FLUSH Leflunomide 20 mg 09/30/18 10:00 10/03/18 09:27 Arava - PO 20 mg DAILY RICHARD Administration Losartan Potassium 50 mg 09/30/18 10:00 10/03/18 09:28 Cozaar - PO 50 mg DAILY RICHARD Administration Ondansetron HCl 4 mg 09/30/18 14:56 09/30/18 15:04 Zofran Injection IVPUSH 4 mg Q6H PRN Administration NAUSEA Pantoprazole Sodium 40 mg 09/30/18 10:00 10/03/18 09:26 Protonix - PO 40 mg DAILY R[facility]ARD Administration Prednisone 20 mg 10/03/18 10:00 10/03/18 09:29 Deltasone - PO Not Given DAILY [facility] Sulfasalazine 1,000 mg 09/29/18 23:45 10/03/18 21:14 Azulfidine En-Tabs - PO 1,000 mg BID R[facility]ARD Administration Tramadol HCl 50 mg 09/29/18 22:01 Ultram - PO Q8H PRN PAIN LEVEL 7 - 10 Zolpidem Tartrate 5 mg 10/01/18 22:00 10/03/18 00:08 Ambien - PO 5 mg HS PRN Administration INSOMNIA Impression: Lung ca/mets Anemia Rheumatoid arthritis Working on rehab and outpatient continuation of therpay.
[2018-10-04] MEDS: FUROSEMIDE 40 MG/4 ML INJECTABLE VIAL IVPUSH SCH ×2 (06:12→09:11)
[2018-10-04] MEDS: ALPRAZolam 0.25 MG TABLET PO PRN ×2 (06:17→22:47)
[2018-10-04] MEDS: ALBUTEROL SO4 0.083% IH SOL 2.5 MG/3 ML VIAL.NEB. NEB SCH ×4 (07:35→19:52)
[2018-10-04] MEDS: ACETYLCYSTEINE 20% 200MG/ML 4 ML VIAL *FOR ORAL / INH USE ONLY NEB SCH ×4 (07:35→19:52)
[2018-10-04] MEDS: ATOVAQUONE 750 MG/5 ML (UNIT-DOSE PACKAGING) PO SCH (09:08)
[2018-10-04] MEDS: amLODIPine BESYLATE 5 MG TABLET (FP) PO SCH (09:08)
[2018-10-04] MEDS: PANTOPRAZOLE 40 MG TABLET (FP) PO SCH (09:08)
[2018-10-04] MEDS: predniSONE 20 MG TABLET (UD) PO SCH (09:09)
[2018-10-04] MEDS: LEFLUNOMIDE 10 MG TABLET PO SCH (09:10)
[2018-10-04] MEDS: HEPARIN NA (PORCINE) 5,000 UNITS/ML 1ML VIAL SQ SCH ×2 (09:10→22:45)
[2018-10-04] MEDS: LOSARTAN POTASSIUM 50 MG TABLET (FP) PO SCH (09:10)
--- NOTE | 2018-10-04 15:17 | PN ---
Progress Note, Physician Chief Complaint: pateint seen and examined today says she feels dizzy BP on slightly lower side in low 100's in AM but improved to 120 systolic in afternoon leg edema much improved - Current Medication List Current Medications: Active Medications Acetylcysteine (Mucomyst 20 Oral / Inh Use Only*) 200 mg NEB RQID [facility] Last Admin: 10/04/18 11:40 Dose: Not Given Albuterol Sulfate (Ventolin 0.083% Nebulizer Soln -) 1 amp NEB RQID [facility] Last Admin: 10/04/18 11:40 Dose: Not Given Alprazolam (Xanax -) 0.5 mg PO Q6H PRN PRN Reason: ANXIETY Last Admin: 10/04/18 06:17 Dose: 0.5 mg Amlodipine Besylate (Norvasc -) 5 mg PO DAILY [facility] Last Admin: 10/04/18 09:08 Dose: 5 mg Atovaquone (Mepron -) 1,500 mg PO DAILY@0800 [facility] Last Admin: 10/04/18 09:08 Dose: 1,500 mg Heparin Sodium (Porcine) (Heparin -) 5,000 unit SQ BID [facility] Last Admin: 10/04/18 09:10 Dose: Not Given IV Flush (Selin-Cath Flush) 10 ml IVPUSH PRN PRN PRN Reason: FLUSH Last Admin: 10/03/18 11:22 Dose: 10 ml Leflunomide (Arava -) 20 mg PO DAILY [facility] Last Admin: 10/04/18 09:10 Dose: 20 mg Losartan Potassium (Cozaar -) 50 mg PO DAILY [facility] Last Admin: 10/04/18 09:10 Dose: 50 mg Ondansetron HCl (Zofran Injection) 4 mg IVPUSH Q6H PRN PRN Reason: NAUSEA Last Admin: 09/30/18 15:04 Dose: 4 mg Pantoprazole Sodium (Protonix -) 40 mg PO DAILY [facility] Last Admin: 10/04/18 09:08 Dose: 40 mg Prednisone (Deltasone -) 20 mg PO DAILY [facility] Last Admin: 10/04/18 09:09 Dose: 20 mg Sulfasalazine (Azulfidine En-Tabs -) 1,000 mg PO BID [facility] Last Admin: 10/04/18 09:09 Dose: 1,000 mg Tramadol HCl (Ultram -) 50 mg PO Q8H PRN PRN Reason: PAIN LEVEL 7 - 10 Zolpidem Tartrate (Ambien -) 5 mg PO HS PRN PRN Reason: INSOMNIA Last Admin: 10/03/18 23:45 Dose: 5 mg - Objective Vital Signs: Vital Signs Temperature 98.7 F 10/04/18 08:14 Pulse Rate 113 H 10/04/18 08:14 Respiratory Rate 20 10/04/18 09:00 Blood Pressure 129/80 10/04/18 08:14 O2 Sat by Pulse Oximetry (%) 96 10/04/18 09:00 Constitutional: Yes: Calm Cardiovascular: Yes: Regular Rate and Rhythm, S1, S2 Respiratory: Yes: Diminished, On Nasal O2 Gastrointestinal: Yes: Normal Bowel Sounds, Soft Edema: LUE: Trace, RUE: Trace Neurological: Yes: Alert, Oriented Labs: CBC, BMP 10/02/18 06:30 10/02/18 06:30 INR, PTT INR 1.17 (0.83-1.09) H 09/29/18 06:50 Problem List - Problems (1) COPD (chronic obstructive pulmonary disease) Assessment/Plan: iv medrol to po prednisone nebulizer oxygen Code(s): J44.9 - CHRONIC OBSTRUCTIVE PULMONARY DISEASE, UNSPECIFIED (2) Leg edema Assessment/Plan: iv lasix change to po lasix monitor lytes leg elevation dvt ppx Code(s): R60.0 - LOCALIZED EDEMA (3) Stage 4 lung cancer Assessment/Plan: got immuno therapy on 09/26 heme consult Code(s): C34.90 - MALIGNANT NEOPLASM OF UNSP PART OF UNSP BRONCHUS OR LUNG (4) Hypomagnesemia Assessment/Plan: check magnesium in AM Code(s): E83.42 - HYPOMAGNESEMIA
--- NOTE | 2018-10-04 15:58 | PN ---
Progress Note (short form) - Note Progress Note: PULMONARY c/o leg heaviness. States breathing improving. Less cough and wheezing. Vital Signs Period Temp Pulse Resp BP Sys/Medeiros Pulse Ox Last 24 Hr 97.8 F-98.8 F 94-113 20-20 120-152/67-87 96-97 Gen: NAD at rest Heart: RRR Lung: scattered rhonchi Abd: soft, nontender Ext: no edema CBC, BMP 10/02/18 06:30 10/02/18 06:30 Active Medications Acetylcysteine (Mucomyst 20 Oral / Inh Use Only*) 200 mg NEB RQID [facility] Last Admin: 10/04/18 11:40 Dose: Not Given Albuterol Sulfate (Ventolin 0.083% Nebulizer Soln -) 1 amp NEB RQID [facility] Last Admin: 10/04/18 11:40 Dose: Not Given Alprazolam (Xanax -) 0.5 mg PO Q6H PRN PRN Reason: ANXIETY Last Admin: 10/04/18 06:17 Dose: 0.5 mg Amlodipine Besylate (Norvasc -) 5 mg PO DAILY [facility] Last Admin: 10/04/18 09:08 Dose: 5 mg Atovaquone (Mepron -) 1,500 mg PO DAILY@0800 [facility] Last Admin: 10/04/18 09:08 Dose: 1,500 mg Furosemide (Lasix -) 20 mg PO DAILY [facility] Heparin Sodium (Porcine) (Heparin -) 5,000 unit SQ BID [facility] Last Admin: 10/04/18 09:10 Dose: Not Given IV Flush (Selin-Cath Flush) 10 ml IVPUSH PRN PRN PRN Reason: FLUSH Last Admin: 10/03/18 11:22 Dose: 10 ml Leflunomide (Arava -) 20 mg PO DAILY [facility] Last Admin: 10/04/18 09:10 Dose: 20 mg Losartan Potassium (Cozaar -) 50 mg PO DAILY [facility] Last Admin: 10/04/18 09:10 Dose: 50 mg Ondansetron HCl (Zofran Injection) 4 mg IVPUSH Q6H PRN PRN Reason: NAUSEA Last Admin: 09/30/18 15:04 Dose: 4 mg Pantoprazole Sodium (Protonix -) 40 mg PO DAILY [facility] Last Admin: 10/04/18 09:08 Dose: 40 mg Prednisone (Deltasone -) 20 mg PO DAILY [facility] Last Admin: 10/04/18 09:09 Dose: 20 mg Sulfasalazine (Azulfidine En-Tabs -) 1,000 mg PO BID [facility] Last Admin: 10/04/18 09:09 Dose: 1,000 mg Tramadol HCl (Ultram -) 50 mg PO Q8H PRN PRN Reason: PAIN LEVEL 7 - 10 Zolpidem Tartrate (Ambien -) 5 mg PO HS PRN PRN Reason: INSOMNIA Last Admin: 10/03/18 23:45 Dose: 5 mg A/P Acute COPD Exacerbation Advanced NSCLC DM HTN Anxiety - agree with prednisone - inhaled bronchodilators - O2 to keep SpO2>90% - glucose control - DVT prophylaxis - continue discussions regarding goals of care - rehab/PT
[2018-10-04] MEDS ORDERED: PT OWN MED DRAWER 7, Y5N ONE (22:32)
[2018-10-04] MEDS: ZOLPIDEM TARTRATE 5 MG TABLET PO PRN (22:47)
[2018-10-05] MEDS: ALBUTEROL SO4 0.083% IH SOL 2.5 MG/3 ML VIAL.NEB. NEB SCH ×4 (07:08→20:59)
[2018-10-05] MEDS: ACETYLCYSTEINE 20% 200MG/ML 4 ML VIAL *FOR ORAL / INH USE ONLY NEB SCH ×4 (07:08→20:59)
[2018-10-05] MEDS: FUROSEMIDE 20 MG TABLET (FP) PO SCH (07:46)
[2018-10-05] MEDS: ATOVAQUONE 750 MG/5 ML (UNIT-DOSE PACKAGING) PO SCH (08:59)
[2018-10-05] MEDS: LEFLUNOMIDE 10 MG TABLET PO SCH (09:00)
[2018-10-05] MEDS: PANTOPRAZOLE 40 MG TABLET (FP) PO SCH (09:00)
[2018-10-05] MEDS: predniSONE 20 MG TABLET (UD) PO SCH (09:00)
[2018-10-05] MEDS: HEPARIN NA (PORCINE) 5,000 UNITS/ML 1ML VIAL SQ SCH ×2 (09:01→22:16)
[2018-10-05] MEDS ORDERED: ONDANSETRON 4 MG TABLET PO ONE (11:08)
[2018-10-05] MEDS: ALPRAZolam 0.25 MG TABLET PO PRN (11:10)
[2018-10-05] MEDS: ONDANSETRON 8 MG TABLET (FP) PO PRN (11:10)
[2018-10-05] MEDS: PORTA CATH FLUSH 10 ML IVPUSH PRN (11:11)
[2018-10-05] MEDS: amLODIPine BESYLATE 5 MG TABLET (FP) PO SCH (11:12)
[2018-10-05] MEDS: LOSARTAN POTASSIUM 50 MG TABLET (FP) PO SCH (12:26)
--- NOTE | 2018-10-05 12:53 | PN ---
Progress Note (short form) - Note Progress Note: Patient seen and examined Tougher time breathing this morning Last Vital Signs Temp Pulse Resp BP Pulse Ox 99.2 F 114 H 20 156/87 95 10/05/18 06:23 10/05/18 06:23 10/05/18 06:23 10/05/18 06:23 10/04/18 21:00 HEENT: GIUSEPPE, EOM Intact Cor: RSR, No murmurs, No gallops Lungs: Diminished breath sounds, rales lower lobes Abd: Soft, Normal bowel sounds, No organomegaly Ext:No significant edema Skin: No rashes, Integument intact CBC, BMP 10/02/18 06:30 10/02/18 06:30 Current Medications Generic Name Dose Route Start Last Admin Trade Name Freq PRN Reason Stop Dose Admin Acetylcysteine 200 mg 09/30/18 08:00 10/05/18 11:49 Mucomyst 20 Oral / Inh Use Only* NEB Not Given RQID RICHARD Albuterol Sulfate 1 amp 09/30/18 08:00 10/05/18 11:49 Ventolin 0.083% Nebulizer Soln - NEB 1 amp RQID RICHARD Administration Alprazolam 0.5 mg 09/29/18 17:36 10/05/18 11:10 Xanax - PO 0.5 mg Q6H PRN Administration ANXIETY Amlodipine Besylate 5 mg 09/30/18 21:00 10/05/18 11:12 Norvasc - PO 5 mg DAILY R[facility]ARD Administration Atovaquone 1,500 mg 09/30/18 08:00 10/05/18 08:59 Mepron - PO 1,500 mg DAILY@0800 RICHARD Administration Furosemide 20 mg 10/05/18 07:30 10/05/18 07:46 Lasix - PO 20 mg DAILY [facility]ARD Administration Heparin Sodium (Porcine) 5,000 unit 09/30/18 10:00 10/05/18 09:01 Heparin - SQ Not Given BID [facility] IV Flush 10 ml 09/30/18 16:50 10/05/18 11:11 Selin-Cath Flush IVPUSH 10 ml PRN PRN Administration FLUSH Leflunomide 20 mg 09/30/18 10:00 10/05/18 09:00 Arava - PO 20 mg DAILY RICHARD Administration Losartan Potassium 50 mg 09/30/18 10:00 10/05/18 12:26 Cozaar - PO Not Given DAILY [facility] Ondansetron HCl 8 mg 10/05/18 09:30 10/05/18 11:10 Zofran - PO 8 mg Q12H PRN Administration NAUSEA Pantoprazole Sodium 40 mg 09/30/18 10:00 10/05/18 09:00 Protonix - PO 40 mg DAILY R[facility]ARD Administration Prednisone 20 mg 10/03/18 10:00 10/05/18 09:00 Deltasone - PO 20 mg DAILY [facility] Administration Sulfasalazine 1,000 mg 09/29/18 23:45 10/05/18 09:00 Azulfidine En-Tabs - PO 1,000 mg BID RICHARD Administration Tramadol HCl 50 mg 09/29/18 22:01 Ultram - PO Q8H PRN PAIN LEVEL 7 - 10 Zolpidem Tartrate 5 mg 10/01/18 22:00 10/04/18 22:47 Ambien - PO 5 mg HS PRN Administration INSOMNIA Impression: Lung ca Immunotherapy SOB/Dyspnea Rheumatoid arthritis Anemia Current treatment Cath flow for port
[2018-10-05] MEDS ORDERED: ALTEPLASE 2 MG VIAL IVPUSH ONE (13:00)
--- NOTE | 2018-10-05 13:22 | DS ---
Physical Examination Vital Signs: Vital Signs Temperature 99.2 F 10/05/18 06:23 Pulse Rate 114 H 10/05/18 06:23 Respiratory Rate 20 10/05/18 06:23 Blood Pressure 156/87 10/05/18 06:23 O2 Sat by Pulse Oximetry (%) 95 10/04/18 21:00 Constitutional: Yes: Calm Cardiovascular: Yes: Regular Rate and Rhythm, S1, S2 Respiratory: Yes: Diminished Gastrointestinal: Yes: Normal Bowel Sounds, Soft Edema: Yes Neurological: Yes: Alert, Oriented Labs: CBC, BMP 10/02/18 06:30 10/02/18 06:30 Discharge Summary Reason For Visit: COPD Current Active Problems COPD (chronic obstructive pulmonary disease) (Acute) COPD exacerbation (Acute) Hypomagnesemia (Acute) Hospital Course: PCP: Lior Toro - Admission Chief Complaint: shortness of breath for 4 days History of Present Illness: 73y F hx of active stage 4 lung ca sp R upper lobectomy currently on immunotherapy, htn, ra, copd, with recent admission for acute on chronic respiratory failure, was dc on monday for immunotherpay represents for complaint of sob - notes that she has felt persisently sob with CHU, . deneis any cp, abd pain, diaphoresis, fever/chills, bck pain, diarrhea, melena, bpr, orthopnea, hemoptysis, headche,m dizzines, palpitations. pt endorses LE edema and is on lasix but denies any calf or leg pain. per patient she has been taking her lasix and nebulizers at home but no relief so came to ER acute copd exacerbation got solumedrol, nebulizer , vancomycin and zosyn now on prednisone pulm rehab and PT Condition: Stable - Instructions Diet, Activity, Other Instructions: prednisone 20mg daily Disposition: ASSISTED FACILITY - Home Medications Comprehensive Discharge Medication List: Ambulatory Orders Alprazolam [Xanax] 0.25 mg PO DAILY 06/15/18 Blood-Glucose Meter [Freestyle Lite Meter] 1 each [facility] 06/15/18 Losartan Potassium [Cozaar -] 50 mg PO DAILY 06/15/18 Pantoprazole Sodium [Protonix -] 40 mg PO DAILY 06/15/18 Zolpidem Tartrate [Ambien] 10 mg PO DAILY 06/15/18 Acetaminophen [Tylenol .Extra-Strength -] 500 mg PO Q6H PRN tablet 06/19/18 Atovaquone [Mepron Oral Solution -] 1,500 mg PO DAILY@0800 #1 bottle 06/19/18 Albuterol Sulfate Inhaler - [Ventolin HFA Inhaler -] 2 puff IH Q6H PRN inhaler 06/25/18 Amlodipine Besylate [Norvasc -] 5 mg PO DAILY tablet 06/25/18 Leflunomide [Arava -] 20 mg PO DAILY #60 tablet 06/25/18 Sulfasalazine [Azulfidine En-Tabs -] 1,000 mg PO BID #120 tablet. 06/25/18 predniSONE [Deltasone -] 15 mg PO BID #60 tablet 06/25/18 traMADol HCL [Ultram -] 50 mg PO Q8H PRN tablet MDD 3 06/25/18 Furosemide [Lasix -] 20 mg PO DAILY #30 tablet 08/29/18 Acetaminophen [Tylenol .Regular Strength -] 650 mg PO Q4H PRN tablet 09/20/18 predniSONE [Deltasone -] 20 mg PO DAILY #14 tablet 09/20/18 Albuterol 0.083% Nebulizer Yudy [Ventolin 0.083% Nebulizer Soln -] 1 amp NEB RQID amp 09/24/18 Guaifenesin [Robitussin -] 10 ml PO Q6H PRN cup 09/24/18 Ambien 10 mg HS 09/30/18 Acetylcysteine Po/INH 20% [Mucomyst 20 Oral / INH Use Only*] 200 mg NEB RQID vial 10/03/18 Albuterol 0.083% Nebulizer Yudy [Ventolin 0.083% Nebulizer Soln -] 1 amp NEB RQID amp 10/03/18 Alprazolam [Xanax] 0.5 mg PO Q6H PRN tablet MDD 4 10/03/18 Atovaquone [Mepron Oral Solution -] 1,500 mg PO DAILY@0800 ud 10/03/18 Heparin - 5,000 unit SQ BID vial 10/03/18 Leflunomide [Arava -] 20 mg PO DAILY tablet 10/03/18 Losartan Potassium [Cozaar -] 50 mg PO DAILY tablet 10/03/18 Pantoprazole Sodium [Protonix -] 40 mg PO DAILY tablet.ec 10/03/18 Selin-Cath Flush [Selin-Cath Flush -] 10 ml IVPUSH PRN PRN ml 10/03/18 Prednisone [Deltasone] See Taper PO DAILY #30 tablet 10/03/18 Sulfasalazine [Azulfidine En-Tabs -] 1,000 mg PO BID tablet. 10/03/18 Zolpidem Tartrate [Ambien] 5 mg PO HS PRN tablet MDD 1 10/03/18 traMADol HCL [Ultram -] 50 mg PO Q8H PRN tablet MDD 3 10/03/18
[2018-10-06] MEDS ORDERED: ZOLPIDEM TARTRATE 5 MG TABLET PO ONE (00:30)
[2018-10-06] MEDS: ZOLPIDEM TARTRATE 5 MG TABLET PO PRN (00:42)
[2018-10-06] MEDS: ALPRAZolam 0.25 MG TABLET PO PRN (00:42)
[2018-10-06] MEDS ORDERED: PT OWN MED DRAWER 7, Y5N ONE ×2 (02:33→09:24)
[2018-10-06] MEDS: ACETYLCYSTEINE 20% 200MG/ML 4 ML VIAL *FOR ORAL / INH USE ONLY NEB SCH ×4 (07:40→20:40)
[2018-10-06] MEDS: ALBUTEROL SO4 0.083% IH SOL 2.5 MG/3 ML VIAL.NEB. NEB SCH ×4 (07:40→20:40)
--- NOTE | 2018-10-06 09:08 | PN ---
Progress Note (short form) - Note Progress Note: Seen in follow up. No complaints this morning - reports she is breathing at her usualk baselin - dyspneic. Denies cough or pain. Meds reviewed. Current Medications Acetylcysteine (Mucomyst 20 Oral / Inh Use Only*) 200 mg NEB RQID [facility] Last Admin: 10/06/18 07:40 Dose: Not Given Albuterol Sulfate (Ventolin 0.083% Nebulizer Soln -) 1 amp NEB RQID [facility] Last Admin: 10/06/18 07:40 Dose: 1 amp Alprazolam (Xanax -) 0.25 mg PO Q8H PRN PRN Reason: ANXIETY Last Admin: 10/06/18 00:42 Dose: 0.25 mg Amlodipine Besylate (Norvasc -) 5 mg PO DAILY [facility] Last Admin: 10/06/18 09:52 Dose: 5 mg Atovaquone (Mepron -) 1,500 mg PO DAILY@0800 [facility] Last Admin: 10/06/18 09:51 Dose: 1,500 mg Furosemide (Lasix -) 20 mg PO DAILY [facility] Last Admin: 10/06/18 09:57 Dose: Not Given Heparin Sodium (Porcine) (Heparin -) 5,000 unit SQ BID [facility] Last Admin: 10/06/18 09:52 Dose: 5,000 unit IV Flush (Selin-Cath Flush) 10 ml IVPUSH PRN PRN PRN Reason: FLUSH Last Admin: 10/05/18 11:11 Dose: 10 ml Leflunomide (Arava -) 20 mg PO DAILY [facility] Last Admin: 10/06/18 09:55 Dose: 20 mg Losartan Potassium (Cozaar -) 50 mg PO DAILY [facility] Last Admin: 10/06/18 09:52 Dose: 50 mg Ondansetron HCl (Zofran -) 8 mg PO Q12H PRN PRN Reason: NAUSEA Last Admin: 10/05/18 11:10 Dose: 8 mg Pantoprazole Sodium (Protonix -) 40 mg PO DAILY [facility] Last Admin: 10/06/18 09:51 Dose: 40 mg Prednisone (Deltasone -) 20 mg PO DAILY [facility] Last Admin: 10/06/18 09:51 Dose: 20 mg Sulfasalazine (Azulfidine En-Tabs -) 1,000 mg PO BID [facility] Last Admin: 10/06/18 09:56 Dose: 1,000 mg Tramadol HCl (Ultram -) 50 mg PO Q8H PRN PRN Reason: PAIN LEVEL 7 - 10 Zolpidem Tartrate (Ambien -) 5 mg PO HS PRN PRN Reason: INSOMNIA Last Admin: 10/06/18 00:42 Dose: 5 mg On exam: Last Vital Signs Temp Pulse Resp BP Pulse Ox 98.6 F 110 H 20 119/67 96 10/06/18 09:08 10/06/18 09:08 10/06/18 09:08 10/06/18 09:08 10/06/18 09:00 General: Supine in bed, nasal canulae. Extremities: hand changes consistent with RA Chest: soft breath sounds bilaterally, no wheeze or crackles Abdomen: Soft, no organomegaly, no masses. Neuro: Alert, oriented, non-focal. CVS: Normal sinus rhythm, S1, S2, no gallop or murmur. Labs reviewed (none recent): CBC, BMP 10/02/18 06:30 10/02/18 06:30 Assessment. Patient with multiply recurrent non-small cell lung cancer, rheumatoid arthritis, HTN, steroid induced hyperglycemia. Currently on nivolumab - stable disease. Admitted Recently started immunotherapy for progressive disease - 2 cycles of nivolumab thus far. Admitted with dyspnea - attributed to COPD exacerbation - possible at baseline now. Management as per primary team / pulmonology. Will continue outpatient chemotherapy with Dr Paige when discharged.
[2018-10-06] MEDS: ATOVAQUONE 750 MG/5 ML (UNIT-DOSE PACKAGING) PO SCH (09:51)
[2018-10-06] MEDS: predniSONE 20 MG TABLET (UD) PO SCH (09:51)
[2018-10-06] MEDS: PANTOPRAZOLE 40 MG TABLET (FP) PO SCH (09:51)
[2018-10-06] MEDS: amLODIPine BESYLATE 5 MG TABLET (FP) PO SCH (09:52)
[2018-10-06] MEDS: HEPARIN NA (PORCINE) 5,000 UNITS/ML 1ML VIAL SQ SCH ×2 (09:52→21:47)
[2018-10-06] MEDS: LOSARTAN POTASSIUM 50 MG TABLET (FP) PO SCH (09:52)
[2018-10-06] MEDS: LEFLUNOMIDE 10 MG TABLET PO SCH (09:55)
[2018-10-06] MEDS: FUROSEMIDE 20 MG TABLET (FP) PO SCH (09:57)
[2018-10-06] MEDS: ONDANSETRON 8 MG TABLET (FP) PO PRN (12:00)
--- NOTE | 2018-10-06 15:14 | PN ---
Progress Note, Physician Chief Complaint: COPD Exacerbation Stage 4 Lung Cancer History of Present Illness: Previous notes and events reviewed awake and alert NAD pt sts feeling weaker today complain of cough and unable to expectorate phlegm denies chest pain sts her legs feel heaviness patient was refused from SNF for d/c--will speak with SW about VNS and [employer] FRAMER hours - Current Medication List Current Medications: Active Medications Acetylcysteine (Mucomyst 20 Oral / Inh Use Only*) 200 mg NEB RQID ON LICENSE OF [facility] Last Admin: 10/06/18 11:16 Dose: 200 mg Albuterol Sulfate (Ventolin 0.083% Nebulizer Soln -) 1 amp NEB RQID ON LICENSE OF [facility] Last Admin: 10/06/18 11:16 Dose: 1 amp Alprazolam (Xanax -) 0.25 mg PO Q8H PRN PRN Reason: ANXIETY Last Admin: 10/06/18 00:42 Dose: 0.25 mg Amlodipine Besylate (Norvasc -) 5 mg PO DAILY ON LICENSE OF [facility] Last Admin: 10/06/18 09:52 Dose: 5 mg Atovaquone (Mepron -) 1,500 mg PO DAILY@0800 ON LICENSE OF [facility] Last Admin: 10/06/18 09:51 Dose: 1,500 mg Furosemide (Lasix -) 20 mg PO DAILY ON LICENSE OF [facility] Last Admin: 10/06/18 09:57 Dose: Not Given Heparin Sodium (Porcine) (Heparin -) 5,000 unit SQ BID ON LICENSE OF [facility] Last Admin: 10/06/18 09:52 Dose: 5,000 unit IV Flush (Selin-Cath Flush) 10 ml IVPUSH PRN PRN PRN Reason: FLUSH Last Admin: 10/05/18 11:11 Dose: 10 ml Leflunomide (Arava -) 20 mg PO DAILY ON LICENSE OF [facility] Last Admin: 10/06/18 09:55 Dose: 20 mg Losartan Potassium (Cozaar -) 50 mg PO DAILY ON LICENSE OF [facility] Last Admin: 10/06/18 09:52 Dose: 50 mg Ondansetron HCl (Zofran -) 8 mg PO Q12H PRN PRN Reason: NAUSEA Last Admin: 10/06/18 12:00 Dose: 8 mg Pantoprazole Sodium (Protonix -) 40 mg PO DAILY ON LICENSE OF [facility] Last Admin: 10/06/18 09:51 Dose: 40 mg Prednisone (Deltasone -) 20 mg PO DAILY ON LICENSE OF [facility] Last Admin: 10/06/18 09:51 Dose: 20 mg Sulfasalazine (Azulfidine En-Tabs -) 1,000 mg PO BID ON LICENSE OF [facility] Last Admin: 10/06/18 09:56 Dose: 1,000 mg Tramadol HCl (Ultram -) 50 mg PO Q8H PRN PRN Reason: PAIN LEVEL 7 - 10 Zolpidem Tartrate (Ambien -) 5 mg PO HS PRN PRN Reason: INSOMNIA Last Admin: 10/06/18 00:42 Dose: 5 mg - Objective Vital Signs: Vital Signs Temperature 98.1 F 10/06/18 13:53 Pulse Rate 110 H 10/06/18 13:53 Respiratory Rate 20 10/06/18 13:53 Blood Pressure 104/59 L 10/06/18 13:53 O2 Sat by Pulse Oximetry (%) 96 10/06/18 09:00 Constitutional: Yes: No Distress, Calm Eyes: Yes: Conjunctiva Clear HENT: Yes: Atraumatic Cardiovascular: Yes: Tachycardia Respiratory: Yes: Regular, CTA Bilaterally Gastrointestinal: Yes: Normal Bowel Sounds, Soft Musculoskeletal: Yes: Muscle Weakness Extremities: Yes: WNL Edema: No Neurological: Yes: Alert, Oriented Psychiatric: Yes: Alert, Oriented Labs: CBC, BMP 10/02/18 06:30 10/02/18 06:30 INR, PTT INR 1.17 (0.83-1.09) H 09/29/18 06:50 Problem List - Problems (1) COPD (chronic obstructive pulmonary disease) Assessment/Plan: -Pulmonary on board -prednisone -Furosemide -O2 via NC -keep SpO2 >90% -bronchodilators -CXR shows bilateral lung masses with possible superimposed basilar infiltrates -afebrile -no leukocytosis Code(s): J44.9 - CHRONIC OBSTRUCTIVE PULMONARY DISEASE, UNSPECIFIED (2) THIAGO (acute kidney injury) Assessment/Plan: -BUN/Cr 18.2/1.2 -monitor renal function Code(s): N17.9 - ACUTE KIDNEY FAILURE, UNSPECIFIED (3) GERD (gastroesophageal reflux disease) Assessment/Plan: -Pantoprazole Code(s): K21.9 - GASTRO-ESOPHAGEAL REFLUX DISEASE WITHOUT ESOPHAGITIS (4) SCC (squamous cell carcinoma of lung) Assessment/Plan: -Oncology on board Code(s): C34.90 - MALIGNANT NEOPLASM OF UNSP PART OF UNSP BRONCHUS OR LUNG (5) HTN (hypertension) Assessment/Plan: -Norvasc, Losartan -low Na diet Code(s): I10 - ESSENTIAL (PRIMARY) HYPERTENSION (6) Weakness Code(s): R53.1 - WEAKNESS Assessment/Plan see problem list dvt ppx
[2018-10-07] MEDS ORDERED: ZOLPIDEM TARTRATE 5 MG TABLET PO ONE (00:15)
[2018-10-07] MEDS: ZOLPIDEM TARTRATE 5 MG TABLET PO PRN (00:22)
[2018-10-07] MEDS: ALPRAZolam 0.25 MG TABLET PO PRN ×2 (00:23→15:53)
[2018-10-07 06:17] LABS: HEMATOCRIT 25.8 % (32.4-45.2); HEMOGLOBIN 8.6 GM/dL (10.7-15.3); MCH 29.9 pg (25.7-33.7); MCHC 33.2 g/dl (32.0-36.0); MEAN CELL VOLUME 90.1 fl (80-96); MEAN PLT VOLUME 7.6 fl (7.5-11.1); PLATELET COUNT 173 K/MM3 (134-434); RBC 2.86 M/mm3 (3.60-5.2); RDW 17.9 % (11.6-15.6); WHITE BLOOD COUNT 6.3 K/mm3 (4.0-10.0)
[2018-10-07] MEDS ORDERED: PT OWN MED DRAWER 7, Y5N ONE ×4 (06:56→20:38)
[2018-10-07] MEDS: ACETYLCYSTEINE 20% 200MG/ML 4 ML VIAL *FOR ORAL / INH USE ONLY NEB SCH ×4 (07:50→21:25)
[2018-10-07] MEDS: ALBUTEROL SO4 0.083% IH SOL 2.5 MG/3 ML VIAL.NEB. NEB SCH ×4 (07:50→21:25)
[2018-10-07] MEDS: LOSARTAN POTASSIUM 50 MG TABLET (FP) PO SCH (09:00)
[2018-10-07] MEDS: ATOVAQUONE 750 MG/5 ML (UNIT-DOSE PACKAGING) PO SCH (09:00)
[2018-10-07] MEDS: PANTOPRAZOLE 40 MG TABLET (FP) PO SCH (09:00)
[2018-10-07] MEDS: LEFLUNOMIDE 10 MG TABLET PO SCH (09:00)
[2018-10-07] MEDS: predniSONE 20 MG TABLET (UD) PO SCH (09:00)
[2018-10-07] MEDS: amLODIPine BESYLATE 5 MG TABLET (FP) PO SCH (09:01)
[2018-10-07] MEDS: HEPARIN NA (PORCINE) 5,000 UNITS/ML 1ML VIAL SQ SCH ×2 (09:01→21:07)
[2018-10-07] MEDS: FUROSEMIDE 20 MG TABLET (FP) PO SCH (09:01)
[2018-10-07] MEDS ORDERED: ONDANSETRON 4 MG TABLET PO ONE (10:57)
[2018-10-07] MEDS: ONDANSETRON 8 MG TABLET (FP) PO PRN (10:58)
[2018-10-07] MEDS ORDERED: ONDANSETRON 4 MG/2 ML VIAL IVPUSH ONE (11:05)
--- NOTE | 2018-10-07 11:40 | EKG ---
Test Reason : Blood Pressure : / mmHG Vent. Rate : 108 BPM Atrial Rate : 108 BPM P-R Int : 138 ms QRS Dur : 082 ms QT Int : 344 ms P-R-T Axes : 041 043 116 degrees QTc Int : 460 ms SINUS TACHYCARDIA WITH OCCASIONAL PREMATURE VENTRICULAR COMPLEXES ABNORMAL ECG WHEN COMPARED WITH ECG OF 28-SEP-2018 07:50, NO SIGNIFICANT CHANGE WAS FOUND Confirmed by CHERYLE BERRIOS, YOUNG ([id number]) on 10/07/2018 11:40:21 AM Referred By: Anh DICKERSON Confirmed By:YOUNG LOBATO MD
[2018-10-07] MEDS ORDERED: traMADol HCL 50 MG TABLET PO PRN (15:14)
--- NOTE | 2018-10-07 15:55 | PN ---
Progress Note, Physician Chief Complaint: COPD Exacerbation Stage 4 Lung Cancer History of Present Illness: Previous notes and events reviewed awake and alert NAD pt sts feeling better today, sts her breathing is better denies chest pain patient was refused from SNF for d/c--will need to speak with SW about VNS and [employer] hours - Current Medication List Current Medications: Active Medications Acetylcysteine (Mucomyst 20 Oral / Inh Use Only*) 200 mg NEB RQID [facility] Last Admin: 10/07/18 12:05 Dose: Not Given Albuterol Sulfate (Ventolin 0.083% Nebulizer Soln -) 1 amp NEB RQID [facility] Last Admin: 10/07/18 12:06 Dose: Not Given Alprazolam (Xanax -) 0.25 mg PO Q8H PRN PRN Reason: ANXIETY Last Admin: 10/07/18 15:53 Dose: 0.25 mg Amlodipine Besylate (Norvasc -) 5 mg PO DAILY [facility] Last Admin: 10/07/18 09:01 Dose: Not Given Atovaquone (Mepron -) 1,500 mg PO DAILY@0800 [facility] Last Admin: 10/07/18 09:00 Dose: 1,500 mg Furosemide (Lasix -) 20 mg PO DAILY [facility] Last Admin: 10/07/18 09:01 Dose: Not Given Heparin Sodium (Porcine) (Heparin -) 5,000 unit SQ BID [facility] Last Admin: 10/07/18 09:01 Dose: Not Given IV Flush (Selin-Cath Flush) 10 ml IVPUSH PRN PRN PRN Reason: FLUSH Last Admin: 10/05/18 11:11 Dose: 10 ml Leflunomide (Arava -) 20 mg PO DAILY [facility] Last Admin: 10/07/18 09:00 Dose: 20 mg Losartan Potassium (Cozaar -) 50 mg PO DAILY [facility] Last Admin: 10/07/18 09:00 Dose: Not Given Ondansetron HCl (Zofran -) 8 mg PO Q12H PRN PRN Reason: NAUSEA Last Admin: 10/07/18 10:58 Dose: 8 mg Pantoprazole Sodium (Protonix -) 40 mg PO DAILY [facility] Last Admin: 10/07/18 09:00 Dose: 40 mg Prednisone (Deltasone -) 20 mg PO DAILY [facility] Last Admin: 10/07/18 09:00 Dose: 20 mg Sulfasalazine (Azulfidine En-Tabs -) 1,000 mg PO BID [facility] Last Admin: 10/07/18 09:00 Dose: 1,000 mg Tramadol HCl (Ultram -) 50 mg PO Q8H PRN PRN Reason: PAIN LEVEL 7 - 10 Zolpidem Tartrate (Ambien -) 5 mg PO HS PRN PRN Reason: INSOMNIA Last Admin: 10/07/18 00:22 Dose: 5 mg - Objective Vital Signs: Vital Signs Temperature 98.5 F 10/07/18 13:58 Pulse Rate 101 H 10/07/18 13:58 Respiratory Rate 20 10/07/18 13:58 Blood Pressure 122/75 10/07/18 13:58 O2 Sat by Pulse Oximetry (%) 100 10/07/18 09:00 Constitutional: Yes: No Distress, Calm Eyes: Yes: Conjunctiva Clear HENT: Yes: Atraumatic Cardiovascular: Yes: Regular Rate and Rhythm Respiratory: Yes: Regular, Cough, Diminished, On Nasal O2 Gastrointestinal: Yes: Normal Bowel Sounds, Soft Musculoskeletal: Yes: Muscle Weakness Extremities: Yes: WNL Edema: No Neurological: Yes: Alert, Oriented Psychiatric: Yes: Alert, Oriented Labs: CBC, BMP 10/07/18 05:30 10/02/18 06:30 INR, PTT INR 1.17 (0.83-1.09) H 09/29/18 06:50 Problem List - Problems (1) COPD (chronic obstructive pulmonary disease) Assessment/Plan: -Pulmonary on board -prednisone -Furosemide -O2 via NC -keep SpO2 >90% -bronchodilators -CXR shows bilateral lung masses with possible superimposed basilar infiltrates -afebrile -no leukocytosis Code(s): J44.9 - CHRONIC OBSTRUCTIVE PULMONARY DISEASE, UNSPECIFIED (2) THIAGO (acute kidney injury) Assessment/Plan: -BUN/Cr 18.2/1.2 -monitor renal function Code(s): N17.9 - ACUTE KIDNEY FAILURE, UNSPECIFIED (3) GERD (gastroesophageal reflux disease) Assessment/Plan: -Pantoprazole Code(s): K21.9 - GASTRO-ESOPHAGEAL REFLUX DISEASE WITHOUT ESOPHAGITIS (4) SCC (squamous cell carcinoma of lung) Assessment/Plan: -Oncology on board Code(s): C34.90 - MALIGNANT NEOPLASM OF UNSP PART OF UNSP BRONCHUS OR LUNG (5) HTN (hypertension) Assessment/Plan: -Norvasc, Losartan -low Na diet Code(s): I10 - ESSENTIAL (PRIMARY) HYPERTENSION (6) Weakness Assessment/Plan: -PT -fall risk Code(s): R53.1 - WEAKNESS Assessment/Plan see problem list dvt ppx
--- NOTE | 2018-10-07 22:23 | PN ---
Progress Note (short form) - Note Progress Note: Seen in follow up. No complaints this morning - reports she is breathing is improved today.. Denies cough or pain. Meds reviewed. Current Medications Generic Name Dose Route Start Last Admin Trade Name Freq PRN Reason Stop Dose Admin Acetylcysteine 200 mg 09/30/18 08:00 10/07/18 21:25 Mucomyst 20 Oral / Inh Use Only* NEB Not Given RQID [facility] Albuterol Sulfate 1 amp 09/30/18 08:00 10/07/18 21:25 Ventolin 0.083% Nebulizer Soln - NEB 1 amp RQID [facility] Administration Alprazolam 0.25 mg 10/05/18 21:14 10/07/18 15:53 Xanax - PO 0.25 mg Q8H PRN Administration ANXIETY Amlodipine Besylate 5 mg 09/30/18 21:00 10/07/18 09:01 Norvasc - PO Not Given DAILY [facility] Atovaquone 1,500 mg 09/30/18 08:00 10/07/18 09:00 Mepron - PO 1,500 mg DAILY@0800 [facility] Administration Furosemide 20 mg 10/05/18 07:30 10/07/18 09:01 Lasix - PO Not Given DAILY [facility] Heparin Sodium (Porcine) 5,000 unit 09/30/18 10:00 10/07/18 21:07 Heparin - SQ Not Given BID [facility] IV Flush 10 ml 09/30/18 16:50 10/05/18 11:11 Selin-Cath Flush IVPUSH 10 ml PRN PRN Administration FLUSH Leflunomide 20 mg 09/30/18 10:00 10/07/18 09:00 Arava - PO 20 mg DAILY [facility] Administration Losartan Potassium 50 mg 09/30/18 10:00 10/07/18 09:00 Cozaar - PO Not Given DAILY [facility] Ondansetron HCl 8 mg 10/05/18 09:30 10/07/18 10:58 Zofran - PO 8 mg Q12H PRN Administration NAUSEA Pantoprazole Sodium 40 mg 09/30/18 10:00 10/07/18 09:00 Protonix - PO 40 mg DAILY [facility] Administration Prednisone 20 mg 10/03/18 10:00 10/07/18 09:00 Deltasone - PO 20 mg DAILY [facility] Administration Sulfasalazine 1,000 mg 09/29/18 23:45 10/07/18 21:07 Azulfidine En-Tabs - PO 1,000 mg BID [facility] Administration Tramadol HCl 50 mg 10/07/18 15:14 Ultram - PO Q8H PRN PAIN LEVEL 7 - 10 Zolpidem Tartrate 5 mg 10/05/18 21:13 10/07/18 00:22 Ambien - PO 5 mg HS PRN Administration INSOMNIA On exam: General: Sitting up in bed Extremities: hand changes consistent with RA Chest: soft breath sounds bilaterally, no wheeze or crackles Abdomen: Soft, no organomegaly, no masses. Neuro: Alert, oriented, non-focal. CVS: Normal sinus rhythm, S1, S2, no gallop or murmur. Labs reviewed (none recent): CBC, BMP 10/07/18 05:30 10/02/18 06:30 Assessment. Patient with multiply recurrent non-small cell lung cancer, rheumatoid arthritis, HTN, steroid induced hyperglycemia. Currently on nivolumab - stable disease. Admitted with dyspnea - attributed to COPD exacerbation - possible at baseline now. Management as per primary team / pulmonology. Will continue outpatient chemotherapy with Dr Paige when discharged.
[2018-10-08] MEDS: ALPRAZolam 0.25 MG TABLET PO PRN ×2 (00:56→10:11)
[2018-10-08] MEDS: ZOLPIDEM TARTRATE 5 MG TABLET PO PRN (00:56)
[2018-10-08] MEDS: ALBUTEROL SO4 0.083% IH SOL 2.5 MG/3 ML VIAL.NEB. NEB SCH ×4 (07:30→21:22)
[2018-10-08] MEDS: ACETYLCYSTEINE 20% 200MG/ML 4 ML VIAL *FOR ORAL / INH USE ONLY NEB SCH ×4 (07:30→21:21)
[2018-10-08 07:32] LABS: HEMOGLOBIN 8.5 GM/dL (10.7-15.3); MCH 29.5 pg (25.7-33.7); MCHC 32.8 g/dl (32.0-36.0); MEAN CELL VOLUME 90.2 fl (80-96); MEAN PLT VOLUME 7.7 fl (7.5-11.1); PLATELET COUNT 180 K/MM3 (134-434); RBC 2.88 M/mm3 (3.60-5.2); RDW 17.6 % (11.6-15.6); WHITE BLOOD COUNT 6.2 K/mm3 (4.0-10.0)
[2018-10-08 08:01] LABS: ALBUMIN 2.6 g/dl (3.4-5.0); BILIRUBIN,TOTAL 0.8 mg/dL (0.2-1); BLOOD UREA NITROGEN 19.1 mg/dL (7-18); CALCIUM 8.5 mg/dL (8.5-10.1); CREATININE 1.3 mg/dL (0.55-1.3); POTASSIUM 3.4 mmol/L (3.5-5.1); TOT PROT 5.5 g/dl (6.4-8.2)
[2018-10-08] MEDS: amLODIPine BESYLATE 5 MG TABLET (FP) PO SCH (10:03)
[2018-10-08] MEDS: HEPARIN NA (PORCINE) 5,000 UNITS/ML 1ML VIAL SQ SCH ×2 (10:03→21:06)
[2018-10-08] MEDS: FUROSEMIDE 20 MG TABLET (FP) PO SCH (10:03)
[2018-10-08] MEDS: LEFLUNOMIDE 10 MG TABLET PO SCH (10:04)
[2018-10-08] MEDS: ATOVAQUONE 750 MG/5 ML (UNIT-DOSE PACKAGING) PO SCH (10:04)
[2018-10-08] MEDS: PANTOPRAZOLE 40 MG TABLET (FP) PO SCH (10:04)
[2018-10-08] MEDS: LOSARTAN POTASSIUM 50 MG TABLET (FP) PO SCH (10:05)
[2018-10-08] MEDS: predniSONE 20 MG TABLET (UD) PO SCH (10:06)
--- NOTE | 2018-10-08 13:12 | PN ---
Progress Note, Physician Chief Complaint: patient seen and examined awakting rehab bed awaiting to hear back from rogel - Current Medication List Current Medications: Active Medications Acetylcysteine (Mucomyst 20 Oral / Inh Use Only*) 200 mg NEB RQID [facility] Last Admin: 10/08/18 11:59 Dose: Not Given Albuterol Sulfate (Ventolin 0.083% Nebulizer Soln -) 1 amp NEB RQID [facility] Last Admin: 10/08/18 11:59 Dose: 1 amp Alprazolam (Xanax -) 0.25 mg PO Q8H PRN PRN Reason: ANXIETY Last Admin: 10/08/18 10:11 Dose: 0.25 mg Amlodipine Besylate (Norvasc -) 5 mg PO DAILY [facility] Last Admin: 10/08/18 10:03 Dose: Not Given Atovaquone (Mepron -) 1,500 mg PO DAILY@0800 [facility] Last Admin: 10/08/18 10:04 Dose: 1,500 mg Furosemide (Lasix -) 20 mg PO DAILY [facility] Last Admin: 10/08/18 10:03 Dose: Not Given Heparin Sodium (Porcine) (Heparin -) 5,000 unit SQ BID [facility] Last Admin: 10/08/18 10:03 Dose: Not Given IV Flush (Selin-Cath Flush) 10 ml IVPUSH PRN PRN PRN Reason: FLUSH Last Admin: 10/05/18 11:11 Dose: 10 ml Leflunomide (Arava -) 20 mg PO DAILY [facility] Last Admin: 10/08/18 10:04 Dose: 20 mg Losartan Potassium (Cozaar -) 50 mg PO DAILY [facility] Last Admin: 10/08/18 10:05 Dose: Not Given Ondansetron HCl (Zofran -) 8 mg PO Q12H PRN PRN Reason: NAUSEA Last Admin: 10/07/18 10:58 Dose: 8 mg Pantoprazole Sodium (Protonix -) 40 mg PO DAILY [facility] Last Admin: 10/08/18 10:04 Dose: 40 mg Prednisone (Deltasone -) 20 mg PO DAILY [facility] Last Admin: 10/08/18 10:06 Dose: 20 mg Sulfasalazine (Azulfidine En-Tabs -) 1,000 mg PO BID [facility] Last Admin: 10/08/18 10:05 Dose: 1,000 mg Tramadol HCl (Ultram -) 50 mg PO Q8H PRN PRN Reason: PAIN LEVEL 7 - 10 Zolpidem Tartrate (Ambien -) 5 mg PO HS PRN PRN Reason: INSOMNIA Last Admin: 10/08/18 00:56 Dose: 5 mg - Objective Vital Signs: Vital Signs Temperature 98.1 F 10/08/18 06:18 Pulse Rate 101 H 10/08/18 06:18 Respiratory Rate 20 10/08/18 06:18 Blood Pressure 114/60 10/08/18 06:18 O2 Sat by Pulse Oximetry (%) 94 L 10/07/18 21:36 Constitutional: Yes: Calm Cardiovascular: Yes: Regular Rate and Rhythm, S1, S2 Respiratory: Yes: Diminished, On Nasal O2 Gastrointestinal: Yes: Normal Bowel Sounds, Soft Edema: Yes Neurological: Yes: Alert, Oriented Labs: CBC, BMP 10/08/18 06:30 10/08/18 06:30 INR, PTT INR 1.17 (0.83-1.09) H 09/29/18 06:50 Problem List - Problems (1) COPD (chronic obstructive pulmonary disease) Assessment/Plan: iv medrol to po prednisone nebulizer oxygen Code(s): J44.9 - CHRONIC OBSTRUCTIVE PULMONARY DISEASE, UNSPECIFIED (2) Leg edema Assessment/Plan: iv lasix change to po lasix monitor lytes leg elevation dvt ppx Code(s): R60.0 - LOCALIZED EDEMA (3) Stage 4 lung cancer Assessment/Plan: got immuno therapy on 09/26 heme consult Code(s): C34.90 - MALIGNANT NEOPLASM OF UNSP PART OF UNSP BRONCHUS OR LUNG (4) Hypomagnesemia Assessment/Plan: check magnesium today Code(s): E83.42 - HYPOMAGNESEMIA
[2018-10-08] MEDS ORDERED: MAGNESIUM SULF 50% (8.12 MEQ/2 ML-1 GM VIAL) IVPB ONE (13:30)
[2018-10-08 14:34] LABS: MAGNESIUM 1.6 mg/dL (1.8-2.4)
[2018-10-08] MEDS ORDERED: PT OWN MED DRAWER 7, Y5N ONE (20:29)
--- NOTE | 2018-10-08 23:23 | PN ---
Progress Note (short form) - Note Progress Note: PAtient seen and examined Feels ok Last Vital Signs Temp Pulse Resp BP Pulse Ox 97.8 F 98 H 20 124/79 94 L 10/08/18 22:00 10/08/18 22:00 10/08/18 22:00 10/08/18 22:00 10/08/18 21:00 Cor: RSR, No murmurs, No gallops Lungs: b/l rhonchi Abd: Soft, Normal bowel sounds, No organomegaly Ext:No significant edema Abnormal Lab Results 10/08/18 10/08/18 06:30 06:30 RBC 2.88 L Hgb 8.5 L Hct 26.0 L RDW 17.6 H Potassium 3.4 L Chloride 95 L Carbon Dioxide 35 H Anion Gap 7 L BUN 19.1 H Random Glucose 72 L Magnesium 1.6 L ALT 9 L Total Protein 5.5 L Albumin 2.6 L Active Medications Generic Name Dose Route Start Last Admin Trade Name Freq PRN Reason Stop Dose Admin Acetylcysteine 200 mg 09/30/18 08:00 10/08/18 21:21 Mucomyst 20 Oral / Inh Use Only* NEB Not Given RQID [facility] Albuterol Sulfate 1 amp 09/30/18 08:00 10/08/18 21:22 Ventolin 0.083% Nebulizer Soln - NEB 1 amp RQID [facility] Administration Alprazolam 0.25 mg 10/09/18 00:05 10/09/18 01:27 Xanax - PO 0.25 mg Q8H PRN Administration ANXIETY Amlodipine Besylate 5 mg 09/30/18 21:00 10/08/18 10:03 Norvasc - PO Not Given DAILY [facility] Atovaquone 1,500 mg 09/30/18 08:00 10/08/18 10:04 Mepron - PO 1,500 mg DAILY@0800 [facility] Administration Furosemide 20 mg 10/05/18 07:30 10/08/18 10:03 Lasix - PO Not Given DAILY [facility] Heparin Sodium (Porcine) 5,000 unit 09/30/18 10:00 10/08/18 21:06 Heparin - SQ Not Given BID [facility] IV Flush 10 ml 09/30/18 16:50 10/05/18 11:11 Selin-Cath Flush IVPUSH 10 ml PRN PRN Administration FLUSH Leflunomide 20 mg 09/30/18 10:00 10/08/18 10:04 Arava - PO 20 mg DAILY [facility] Administration Losartan Potassium 50 mg 09/30/18 10:00 10/08/18 10:05 Cozaar - PO Not Given DAILY [facility] Ondansetron HCl 8 mg 10/05/18 09:30 10/07/18 10:58 Zofran - PO 8 mg Q12H PRN Administration NAUSEA Pantoprazole Sodium 40 mg 09/30/18 10:00 10/08/18 10:04 Protonix - PO 40 mg DAILY [facility] Administration Prednisone 20 mg 10/03/18 10:00 10/08/18 10:06 Deltasone - PO 20 mg DAILY [facility] Administration Sulfasalazine 1,000 mg 09/29/18 23:45 10/08/18 21:05 Azulfidine En-Tabs - PO 1,000 mg BID [facility] Administration Tramadol HCl 50 mg 10/07/18 15:14 Ultram - PO Q8H PRN PAIN LEVEL 7 - 10 Zolpidem Tartrate 5 mg 10/08/18 22:00 10/09/18 01:27 Ambien - PO 5 mg HS PRN Administration INSOMNIA A/P Metastatic lung ca on nivolumab LLL infiltrate On antibiotics/ steroids --clinically improved Repeat CT chest--stable disease. But significant tumor burden. Received several lines of treatment coninue supportive care
[2018-10-09] MEDS: ALPRAZolam 0.25 MG TABLET PO PRN ×2 (01:27→10:43)
[2018-10-09] MEDS: ZOLPIDEM TARTRATE 5 MG TABLET PO PRN (01:27)
--- NOTE | 2018-10-09 08:49 | PN ---
Progress Note, Physician Chief Complaint: AWAKE ALERT ANXIOUS CRYING BECAUSE NOT ACCEPTED TO REHAB C/O SOB - Current Medication List Current Medications: Active Medications Acetylcysteine (Mucomyst 20 Oral / Inh Use Only*) 200 mg NEB RQID [facility] Last Admin: 10/08/18 21:21 Dose: Not Given Albuterol Sulfate (Ventolin 0.083% Nebulizer Soln -) 1 amp NEB RQID [facility] Last Admin: 10/08/18 21:22 Dose: 1 amp Alprazolam (Xanax -) 0.25 mg PO Q8H PRN PRN Reason: ANXIETY Last Admin: 10/09/18 01:27 Dose: 0.25 mg Amlodipine Besylate (Norvasc -) 5 mg PO DAILY [facility] Last Admin: 10/08/18 10:03 Dose: Not Given Atovaquone (Mepron -) 1,500 mg PO DAILY@0800 [facility] Last Admin: 10/08/18 10:04 Dose: 1,500 mg Furosemide (Lasix -) 20 mg PO DAILY [facility] Last Admin: 10/08/18 10:03 Dose: Not Given Heparin Sodium (Porcine) (Heparin -) 5,000 unit SQ BID [facility] Last Admin: 10/08/18 21:06 Dose: Not Given IV Flush (Selin-Cath Flush) 10 ml IVPUSH PRN PRN PRN Reason: FLUSH Last Admin: 10/05/18 11:11 Dose: 10 ml Leflunomide (Arava -) 20 mg PO DAILY [facility] Last Admin: 10/08/18 10:04 Dose: 20 mg Losartan Potassium (Cozaar -) 50 mg PO DAILY [facility] Last Admin: 10/08/18 10:05 Dose: Not Given Ondansetron HCl (Zofran -) 8 mg PO Q12H PRN PRN Reason: NAUSEA Last Admin: 10/07/18 10:58 Dose: 8 mg Pantoprazole Sodium (Protonix -) 40 mg PO DAILY [facility] Last Admin: 10/08/18 10:04 Dose: 40 mg Prednisone (Deltasone -) 20 mg PO DAILY [facility] Last Admin: 10/08/18 10:06 Dose: 20 mg Sulfasalazine (Azulfidine En-Tabs -) 1,000 mg PO BID [facility] Last Admin: 10/08/18 21:05 Dose: 1,000 mg Tramadol HCl (Ultram -) 50 mg PO Q8H PRN PRN Reason: PAIN LEVEL 7 - 10 Zolpidem Tartrate (Ambien -) 5 mg PO HS PRN PRN Reason: INSOMNIA Last Admin: 10/09/18 01:27 Dose: 5 mg - Objective Vital Signs: Vital Signs Temperature 97.8 F 10/08/18 22:00 Pulse Rate 98 H 10/08/18 22:00 Respiratory Rate 20 10/08/18 22:00 Blood Pressure 124/79 10/08/18 22:00 O2 Sat by Pulse Oximetry (%) 94 L 10/08/18 21:00 Constitutional: Yes: Mild Distress Eyes: Yes: WNL HENT: Yes: WNL Neck: Yes: WNL Cardiovascular: Yes: Regular Rate and Rhythm Respiratory: Yes: Diminished Gastrointestinal: Yes: WNL Genitourinary: Yes: WNL Musculoskeletal: Yes: Muscle Weakness Edema: No Peripheral Pulses WNL: Yes Integumentary: Yes: WNL Wound/Incision: Yes: Clean/Dry Neurological: Yes: Pre-Existing Deficit ...Motor Strength: WNL Psychiatric: Yes: WNL Labs: CBC, BMP 10/08/18 06:30 10/08/18 06:30 INR, PTT INR 1.17 (0.83-1.09) H 09/29/18 06:50 Problem List - Problems (1) COPD (chronic obstructive pulmonary disease) Code(s): J44.9 - CHRONIC OBSTRUCTIVE PULMONARY DISEASE, UNSPECIFIED (2) Diabetes Code(s): E11.9 - TYPE 2 DIABETES MELLITUS WITHOUT COMPLICATIONS (3) Metastatic lung cancer (metastasis from lung to other site) Code(s): C34.90 - MALIGNANT NEOPLASM OF UNSP PART OF UNSP BRONCHUS OR LUNG (4) SCC (squamous cell carcinoma of lung) Code(s): C34.90 - MALIGNANT NEOPLASM OF UNSP PART OF UNSP BRONCHUS OR LUNG Assessment/Plan BUSPAR STARTING 5MG BID CONTINUE XANAX PRN PT EVAL FOR SNF PLACEMENT PREDNISONE TAPER 02 SUPPORT NEEDS PULMONARY REHAB
[2018-10-09] MEDS ORDERED: PT OWN MED DRAWER 7, Y5N ONE (08:51)
[2018-10-09] MEDS: ACETYLCYSTEINE 20% 200MG/ML 4 ML VIAL *FOR ORAL / INH USE ONLY NEB SCH ×4 (09:00→20:37)
[2018-10-09] MEDS: ALBUTEROL SO4 0.083% IH SOL 2.5 MG/3 ML VIAL.NEB. NEB SCH ×2 (09:29→15:17)
[2018-10-09] MEDS ORDERED: ONDANSETRON 4 MG TABLET PO ONE (10:40)
[2018-10-09] MEDS: ONDANSETRON 8 MG TABLET (FP) PO PRN (10:42)
[2018-10-09] MEDS: ATOVAQUONE 750 MG/5 ML (UNIT-DOSE PACKAGING) PO SCH (10:43)
[2018-10-09] MEDS: PANTOPRAZOLE 40 MG TABLET (FP) PO SCH (10:43)
[2018-10-09] MEDS: predniSONE 20 MG TABLET (UD) PO SCH (10:44)
[2018-10-09] MEDS: FUROSEMIDE 20 MG TABLET (FP) PO SCH (10:44)
[2018-10-09] MEDS: LEFLUNOMIDE 10 MG TABLET PO SCH (10:45)
[2018-10-09] MEDS: HEPARIN NA (PORCINE) 5,000 UNITS/ML 1ML VIAL SQ SCH ×2 (10:46→22:07)
[2018-10-09] MEDS: LOSARTAN POTASSIUM 50 MG TABLET (FP) PO SCH (10:49)
[2018-10-09] MEDS: amLODIPine BESYLATE 5 MG TABLET (FP) PO SCH (10:49)
--- NOTE | 2018-10-09 13:06 | PN ---
Progress Note (short form) - Note Progress Note: PULMONARY States breathing is about the same. Less cough and wheezing. Vital Signs Period Temp Pulse Resp BP Sys/Medeiros Pulse Ox Last 24 Hr 97.8 F-97.8 F 98-105 20-20 124-125/73-79 94 Gen: NAD at rest Heart: RRR Lung: scattered rhonchi Abd: soft, nontender Ext: no edema CBC, BMP 10/08/18 06:30 10/08/18 06:30 Active Medications Acetylcysteine (Mucomyst 20 Oral / Inh Use Only*) 200 mg NEB RQID [facility] Last Admin: 10/09/18 09:00 Dose: Not Given Albuterol Sulfate (Ventolin 0.083% Nebulizer Soln -) 1 amp NEB RQID [facility] Last Admin: 10/09/18 09:29 Dose: 1 amp Alprazolam (Xanax -) 0.25 mg PO Q8H PRN PRN Reason: ANXIETY Last Admin: 10/09/18 10:43 Dose: 0.25 mg Amlodipine Besylate (Norvasc -) 5 mg PO DAILY [facility] Last Admin: 10/09/18 10:49 Dose: 5 mg Atovaquone (Mepron -) 1,500 mg PO DAILY@0800 [facility] Last Admin: 10/09/18 10:43 Dose: 1,500 mg Furosemide (Lasix -) 20 mg PO DAILY [facility] Last Admin: 10/09/18 10:44 Dose: Not Given Heparin Sodium (Porcine) (Heparin -) 5,000 unit SQ BID [facility] Last Admin: 10/09/18 10:46 Dose: Not Given IV Flush (Selin-Cath Flush) 10 ml IVPUSH PRN PRN PRN Reason: FLUSH Last Admin: 10/05/18 11:11 Dose: 10 ml Leflunomide (Arava -) 20 mg PO DAILY [facility] Last Admin: 10/09/18 10:45 Dose: 20 mg Losartan Potassium (Cozaar -) 50 mg PO DAILY [facility] Last Admin: 10/09/18 10:49 Dose: 50 mg Ondansetron HCl (Zofran -) 8 mg PO Q12H PRN PRN Reason: NAUSEA Last Admin: 10/09/18 10:42 Dose: 8 mg Pantoprazole Sodium (Protonix -) 40 mg PO DAILY [facility] Last Admin: 10/09/18 10:43 Dose: 40 mg Prednisone (Deltasone -) 20 mg PO DAILY [facility] Last Admin: 10/09/18 10:44 Dose: 20 mg Sulfasalazine (Azulfidine En-Tabs -) 1,000 mg PO BID [facility] Last Admin: 10/09/18 10:44 Dose: 1,000 mg Tramadol HCl (Ultram -) 50 mg PO Q8H PRN PRN Reason: PAIN LEVEL 7 - 10 Zolpidem Tartrate (Ambien -) 5 mg PO HS PRN PRN Reason: INSOMNIA Last Admin: 10/09/18 01:27 Dose: 5 mg A/P Acute COPD Exacerbation Advanced NSCLC DM HTN Anxiety - continue prednisone 20mg daily - inhaled bronchodilators - O2 to keep SpO2>90% - glucose control - DVT prophylaxis - continue discussions regarding goals of care - rehab/PT - d/c planning
--- NOTE | 2018-10-09 19:11 | PN ---
Progress Note (short form) - Note Progress Note: Patient seen and examined Little change clinically Frustrated about social service issues Last Vital Signs Temp Pulse Resp BP Pulse Ox 99.0 F 69 20 99/56 L 94 L 10/09/18 17:41 10/09/18 17:41 10/09/18 17:41 10/09/18 17:41 10/09/18 09:00 Lungs - scattered rhonchi with wheezes Cor-RSR Soft abd Ext - negative CBC, BMP 10/08/18 06:30 10/08/18 06:30 Current Medications Generic Name Dose Route Start Last Admin Trade Name Freq PRN Reason Stop Dose Admin Acetylcysteine 200 mg 09/30/18 08:00 10/09/18 18:26 Mucomyst 20 Oral / Inh Use Only* NEB Not Given RQID RICHARD Alprazolam 0.25 mg 10/09/18 00:05 10/09/18 10:43 Xanax - PO 0.25 mg Q8H PRN Administration ANXIETY Amlodipine Besylate 5 mg 09/30/18 21:00 10/09/18 10:49 Norvasc - PO 5 mg DAILY RICHARD Administration Atovaquone 1,500 mg 09/30/18 08:00 10/09/18 10:43 Mepron - PO 1,500 mg DAILY@0800 RICHARD Administration Buspirone HCl 5 mg 10/09/18 22:00 Buspar - PO BID RICHARD Furosemide 20 mg 10/05/18 07:30 10/09/18 10:44 Lasix - PO Not Given DAILY RICHARD Heparin Sodium (Porcine) 5,000 unit 09/30/18 10:00 10/09/18 10:46 Heparin - SQ Not Given BID RICHARD IV Flush 10 ml 09/30/18 16:50 10/05/18 11:11 Selin-Cath Flush IVPUSH 10 ml PRN PRN Administration FLUSH Leflunomide 20 mg 09/30/18 10:00 10/09/18 10:45 Arava - PO 20 mg DAILY RICHARD Administration Losartan Potassium 50 mg 09/30/18 10:00 10/09/18 10:49 Cozaar - PO 50 mg DAILY RICHARD Administration Ondansetron HCl 8 mg 10/05/18 09:30 10/09/18 10:42 Zofran - PO 8 mg Q12H PRN Administration NAUSEA Pantoprazole Sodium 40 mg 09/30/18 10:00 10/09/18 10:43 Protonix - PO 40 mg DAILY RICHARD Administration Prednisone 20 mg 10/03/18 10:00 10/09/18 10:44 Deltasone - PO 20 mg DAILY RICHARD Administration Sulfasalazine 1,000 mg 09/29/18 23:45 10/09/18 10:44 Azulfidine En-Tabs - PO 1,000 mg BID RICHARD Administration Zolpidem Tartrate 5 mg 10/08/18 22:00 10/09/18 01:27 Ambien - PO 5 mg HS PRN Administration INSOMNIA Metastatic lung ca For ongoing Nivolumab. 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
[2018-10-09] MEDS ORDERED: PATIENT'S OWN MEDICATION (NON-FORMULARY) (Zolpidem Tartrate [Ambien] 10 MG) PO SCH (22:00)
[2018-10-09] MEDS: busPIRone HCL 5 MG TABLET PO SCH (22:07)
[2018-10-10] MEDS: ZOLPIDEM TARTRATE 5 MG TABLET PO PRN (01:18)
[2018-10-10] MEDS: ALPRAZolam 0.25 MG TABLET PO PRN (01:18)
[2018-10-10] MEDS: PORTA CATH FLUSH 10 ML IVPUSH PRN (01:20)
[2018-10-10] MEDS: ACETYLCYSTEINE 20% 200MG/ML 4 ML VIAL *FOR ORAL / INH USE ONLY NEB SCH (08:40)
--- NOTE | 2018-10-10 09:21 | PN ---
Progress Note (short form) - Note Progress Note: AWAITING PLACEMENT TO SNF AWAKE ALERT FEELING BETTER NO COMPLAINTS WILL CHECK CBC/BMP AND MG BEFORE DISCHARGE Problem List - Problems (1) COPD (chronic obstructive pulmonary disease) Code(s): J44.9 - CHRONIC OBSTRUCTIVE PULMONARY DISEASE, UNSPECIFIED (2) Diabetes Code(s): E11.9 - TYPE 2 DIABETES MELLITUS WITHOUT COMPLICATIONS (3) Metastatic lung cancer (metastasis from lung to other site) Code(s): C34.90 - MALIGNANT NEOPLASM OF UNSP PART OF UNSP BRONCHUS OR LUNG (4) SCC (squamous cell carcinoma of lung) Code(s): C34.90 - MALIGNANT NEOPLASM OF UNSP PART OF UNSP BRONCHUS OR LUNG
[2018-10-10] MEDS: ATOVAQUONE 750 MG/5 ML (UNIT-DOSE PACKAGING) PO SCH (09:37)
[2018-10-10] MEDS: busPIRone HCL 5 MG TABLET PO SCH ×2 (09:38→21:09)
[2018-10-10] MEDS: LEFLUNOMIDE 10 MG TABLET PO SCH (09:39)
[2018-10-10] MEDS: amLODIPine BESYLATE 5 MG TABLET (FP) PO SCH (09:39)
[2018-10-10] MEDS: predniSONE 20 MG TABLET (UD) PO SCH (09:39)
[2018-10-10] MEDS: LOSARTAN POTASSIUM 50 MG TABLET (FP) PO SCH (09:39)
[2018-10-10] MEDS: FUROSEMIDE 20 MG TABLET (FP) PO SCH (09:39)
[2018-10-10] MEDS: HEPARIN NA (PORCINE) 5,000 UNITS/ML 1ML VIAL SQ SCH ×2 (09:39→21:11)
[2018-10-10] MEDS: PANTOPRAZOLE 40 MG TABLET (FP) PO SCH (09:39)
[2018-10-10 10:27] LABS: HEMATOCRIT 25.7 % (32.4-45.2); HEMOGLOBIN 8.3 GM/dL (10.7-15.3); MCH 29.5 pg (25.7-33.7); MCHC 32.3 g/dl (32.0-36.0); MEAN CELL VOLUME 91.2 fl (80-96); MEAN PLT VOLUME 7.6 fl (7.5-11.1); PLATELET COUNT 201 K/MM3 (134-434); RBC 2.81 M/mm3 (3.60-5.2); RDW 17.3 % (11.6-15.6); WHITE BLOOD COUNT 7.4 K/mm3 (4.0-10.0)
[2018-10-10 11:04] LABS: BLOOD UREA NITROGEN 13.5 mg/dL (7-18); CALCIUM 8.8 mg/dL (8.5-10.1); CREATININE 1.2 mg/dL (0.55-1.3); MAGNESIUM 2.2 mg/dL (1.8-2.4); POTASSIUM 3.5 mmol/L (3.5-5.1)
--- NOTE | 2018-10-10 11:35 | PN ---
Progress Note (short form) - Note Progress Note: PULMONARY States breathing is about the same. Less cough and wheezing. Vital Signs Period Temp Pulse Resp BP Sys/Medeiros Pulse Ox Last 24 Hr 97.2 F-99.0 F 69-104 18-22 99-132/55-72 95 Gen: NAD at rest Heart: RRR Lung: scattered rhonchi Abd: soft, nontender Ext: no edema CBC, BMP 10/10/18 10:00 10/10/18 09:20 Active Medications Acetylcysteine (Mucomyst 20 Oral / Inh Use Only*) 200 mg NEB RQID [facility] Last Admin: 10/09/18 20:37 Dose: Not Given Alprazolam (Xanax -) 0.25 mg PO Q8H PRN PRN Reason: ANXIETY Last Admin: 10/10/18 01:18 Dose: 0.25 mg Amlodipine Besylate (Norvasc -) 5 mg PO DAILY [facility] Last Admin: 10/10/18 09:39 Dose: 5 mg Atovaquone (Mepron -) 1,500 mg PO DAILY@0800 [facility] Last Admin: 10/10/18 09:37 Dose: 1,500 mg Buspirone HCl (Buspar -) 5 mg PO BID [facility] Last Admin: 10/10/18 09:38 Dose: 5 mg Furosemide (Lasix -) 20 mg PO DAILY [facility] Last Admin: 10/10/18 09:39 Dose: 20 mg Heparin Sodium (Porcine) (Heparin -) 5,000 unit SQ BID [facility] Last Admin: 10/10/18 09:39 Dose: 5,000 unit IV Flush (Selin-Cath Flush) 10 ml IVPUSH PRN PRN PRN Reason: FLUSH Last Admin: 10/10/18 01:20 Dose: 10 ml Leflunomide (Arava -) 20 mg PO DAILY [facility] Last Admin: 10/10/18 09:39 Dose: 20 mg Losartan Potassium (Cozaar -) 50 mg PO DAILY [facility] Last Admin: 10/10/18 09:39 Dose: 50 mg Ondansetron HCl (Zofran -) 8 mg PO Q12H PRN PRN Reason: NAUSEA Last Admin: 10/09/18 10:42 Dose: 8 mg Pantoprazole Sodium (Protonix -) 40 mg PO DAILY [facility] Last Admin: 10/10/18 09:39 Dose: 40 mg Prednisone (Deltasone -) 20 mg PO DAILY [facility] Last Admin: 10/10/18 09:39 Dose: 20 mg Sulfasalazine (Azulfidine En-Tabs -) 1,000 mg PO BID [facility] Last Admin: 10/10/18 09:38 Dose: 1,000 mg Zolpidem Tartrate (Ambien -) 5 mg PO HS PRN PRN Reason: INSOMNIA Last Admin: 10/10/18 01:18 Dose: 5 mg A/P Acute COPD Exacerbation Advanced NSCLC DM HTN Anxiety - continue prednisone 20mg daily - inhaled bronchodilators - O2 to keep SpO2>90% - glucose control - DVT prophylaxis - continue discussions regarding goals of care - rehab/PT - d/c planning
[2018-10-10] MEDS ORDERED: ALBUTEROL SO4 0.083% IH SOL 2.5 MG/3 ML VIAL.NEB. NEB PRN (11:36)
[2018-10-10] MEDS: ALBUTEROL SO4 0.083% IH SOL 2.5 MG/3 ML VIAL.NEB. NEB SCH ×2 (14:51→20:41)
--- NOTE | 2018-10-10 15:44 | PN ---
Progress Note (short form) - Note Progress Note: Patient seen and examined Depressed Frustrated Currently having more difficulty breathing Minimal ambulation Last Vital Signs Temp Pulse Resp BP Pulse Ox 97.7 F 104 H 20 122/74 95 10/10/18 15:12 10/10/18 15:12 10/10/18 15:12 10/10/18 15:12 10/10/18 09:00 Lungs - rhonchi, diminished breath sounds Cor-RSR ABD- soft Ext- no significant edema CBC, BMP 10/10/18 10:00 10/10/18 09:20 Current Medications Generic Name Dose Route Start Last Admin Trade Name Freq PRN Reason Stop Dose Admin Albuterol Sulfate 1 amp 10/10/18 14:00 10/10/18 14:51 Ventolin 0.083% Nebulizer Soln - NEB 1 amp RTID RICHARD Administration Albuterol Sulfate 1 amp 10/10/18 11:36 Ventolin 0.083% Nebulizer Soln - NEB Q4H PRN SHORT OF BREATH/WHEEZING Alprazolam 0.25 mg 10/09/18 00:05 10/10/18 01:18 Xanax - PO 0.25 mg Q8H PRN Administration ANXIETY Amlodipine Besylate 5 mg 09/30/18 21:00 10/10/18 09:39 Norvasc - PO 5 mg DAILY RICHARD Administration Atovaquone 1,500 mg 09/30/18 08:00 10/10/18 09:37 Mepron - PO 1,500 mg DAILY@0800 RICHARD Administration Buspirone HCl 5 mg 10/09/18 22:00 10/10/18 09:38 Buspar - PO 5 mg BID RICHARD Administration Furosemide 20 mg 10/05/18 07:30 10/10/18 09:39 Lasix - PO 20 mg DAILY RICHARD Administration Heparin Sodium (Porcine) 5,000 unit 09/30/18 10:00 10/10/18 09:39 Heparin - SQ 5,000 unit BID RICHARD Administration IV Flush 10 ml 09/30/18 16:50 10/10/18 01:20 Selin-Cath Flush IVPUSH 10 ml PRN PRN Administration FLUSH Leflunomide 20 mg 09/30/18 10:00 10/10/18 09:39 Arava - PO 20 mg DAILY RICHARD Administration Losartan Potassium 50 mg 09/30/18 10:00 10/10/18 09:39 Cozaar - PO 50 mg DAILY RICHARD Administration Ondansetron HCl 8 mg 10/05/18 09:30 10/09/18 10:42 Zofran - PO 8 mg Q12H PRN Administration NAUSEA Pantoprazole Sodium 40 mg 09/30/18 10:00 10/10/18 09:39 Protonix - PO 40 mg DAILY RICHARD Administration Prednisone 20 mg 10/03/18 10:00 10/10/18 09:39 Deltasone - PO 20 mg DAILY RICHARD Administration Sulfasalazine 1,000 mg 09/29/18 23:45 10/10/18 09:38 Azulfidine En-Tabs - PO 1,000 mg BID RICHARD Administration Zolpidem Tartrate 5 mg 10/08/18 22:00 10/10/18 01:18 Ambien - PO 5 mg HS PRN Administration INSOMNIA Impression: Lung ca Dyspnea Rheumatoid arthritis Current therapy Await rehab
[2018-10-10] MEDS ORDERED: PT OWN MED DRAWER 7, Y5N ONE ×2 (20:23→21:08)
[2018-10-10] MEDS: ONDANSETRON 8 MG TABLET (FP) PO PRN (21:09)
[2018-10-11] MEDS: ZOLPIDEM TARTRATE 5 MG TABLET PO PRN ×2 (01:22→21:29)
[2018-10-11] MEDS: ALPRAZolam 0.25 MG TABLET PO PRN ×2 (01:22→21:29)
[2018-10-11] MEDS ORDERED: ZOLPIDEM TARTRATE 5 MG TABLET PO ONE (02:12)
[2018-10-11] MEDS: guaiFENesin/D-METHORPHAN HB 10 ML UNIT-DOSE CUPS PO PRN (06:45)
[2018-10-11] MEDS: ALBUTEROL SO4 0.083% IH SOL 2.5 MG/3 ML VIAL.NEB. NEB SCH ×3 (07:28→20:12)
[2018-10-11] MEDS: ONDANSETRON 8 MG TABLET (FP) PO PRN (10:14)
[2018-10-11] MEDS: LEFLUNOMIDE 10 MG TABLET PO SCH (10:14)
[2018-10-11] MEDS: busPIRone HCL 5 MG TABLET PO SCH ×2 (10:15→21:26)
[2018-10-11] MEDS: HEPARIN NA (PORCINE) 5,000 UNITS/ML 1ML VIAL SQ SCH ×2 (10:15→21:26)
[2018-10-11] MEDS: PANTOPRAZOLE 40 MG TABLET (FP) PO SCH (10:15)
[2018-10-11] MEDS: FUROSEMIDE 20 MG TABLET (FP) PO SCH (10:16)
[2018-10-11] MEDS: amLODIPine BESYLATE 5 MG TABLET (FP) PO SCH (10:16)
[2018-10-11] MEDS: ATOVAQUONE 750 MG/5 ML (UNIT-DOSE PACKAGING) PO SCH (10:16)
[2018-10-11] MEDS: LOSARTAN POTASSIUM 50 MG TABLET (FP) PO SCH (10:16)
[2018-10-11] MEDS: predniSONE 20 MG TABLET (UD) PO SCH (10:16)
--- NOTE | 2018-10-11 11:21 | PN ---
Progress Note, Physician Chief Complaint: COPD Exacerbation Stage 4 Lung Cancer History of Present Illness: Previous notes and events reviewed awake and alert NAD denies chest pain or SOB - Current Medication List Current Medications: Active Medications Albuterol Sulfate (Ventolin 0.083% Nebulizer Soln -) 1 amp NEB RTID [facility] Last Admin: 10/11/18 07:28 Dose: 1 amp Albuterol Sulfate (Ventolin 0.083% Nebulizer Soln -) 1 amp NEB Q4H PRN PRN Reason: SHORT OF BREATH/WHEEZING Alprazolam (Xanax -) 0.25 mg PO Q8H PRN PRN Reason: ANXIETY Last Admin: 10/11/18 01:22 Dose: 0.25 mg Amlodipine Besylate (Norvasc -) 5 mg PO DAILY [facility] Last Admin: 10/11/18 10:16 Dose: 5 mg Atovaquone (Mepron -) 1,500 mg PO DAILY@0800 [facility] Last Admin: 10/11/18 10:16 Dose: 1,500 mg Buspirone HCl (Buspar -) 5 mg PO BID [facility] Last Admin: 10/11/18 10:15 Dose: 5 mg Furosemide (Lasix -) 20 mg PO DAILY [facility] Last Admin: 10/11/18 10:16 Dose: Not Given Guaifenesin (Robitussin Dm -) 10 ml PO Q8H PRN PRN Reason: COUGH Last Admin: 10/11/18 06:45 Dose: 10 ml Heparin Sodium (Porcine) (Heparin -) 5,000 unit SQ BID [facility] Last Admin: 10/11/18 10:15 Dose: 5,000 unit IV Flush (Selin-Cath Flush) 10 ml IVPUSH PRN PRN PRN Reason: FLUSH Last Admin: 10/10/18 01:20 Dose: 10 ml Leflunomide (Arava -) 20 mg PO DAILY [facility] Last Admin: 10/11/18 10:14 Dose: 20 mg Losartan Potassium (Cozaar -) 50 mg PO DAILY [facility] Last Admin: 10/11/18 10:16 Dose: 50 mg Ondansetron HCl (Zofran -) 8 mg PO Q12H PRN PRN Reason: NAUSEA Last Admin: 10/11/18 10:14 Dose: 8 mg Pantoprazole Sodium (Protonix -) 40 mg PO DAILY [facility] Last Admin: 10/11/18 10:15 Dose: 40 mg Prednisone (Deltasone -) 20 mg PO DAILY [facility] Last Admin: 10/11/18 10:16 Dose: 20 mg Sulfasalazine (Azulfidine En-Tabs -) 1,000 mg PO BID [facility] Last Admin: 10/11/18 10:15 Dose: 1,000 mg Zolpidem Tartrate (Ambien -) 5 mg PO HS PRN PRN Reason: INSOMNIA Last Admin: 10/11/18 01:22 Dose: 5 mg - Objective Vital Signs: Vital Signs Temperature 98.0 F 10/10/18 22:00 Pulse Rate 95 H 10/10/18 22:00 Respiratory Rate 20 10/10/18 22:00 Blood Pressure 128/73 10/10/18 22:00 O2 Sat by Pulse Oximetry (%) 96 10/10/18 21:00 Constitutional: Yes: No Distress, Calm Eyes: Yes: Conjunctiva Clear HENT: Yes: Atraumatic Cardiovascular: Yes: Regular Rate and Rhythm Respiratory: Yes: Regular, On Nasal O2, Wheezes Gastrointestinal: Yes: Normal Bowel Sounds, Soft Musculoskeletal: Yes: Muscle Weakness Extremities: Yes: WNL Edema: No Neurological: Yes: Alert, Oriented Psychiatric: Yes: Alert, Oriented Labs: CBC, BMP 10/10/18 10:00 10/10/18 09:20 INR, PTT INR 1.17 (0.83-1.09) H 09/29/18 06:50 Problem List - Problems (1) COPD (chronic obstructive pulmonary disease) Assessment/Plan: -Pulmonary on board -prednisone -Furosemide -O2 via NC -keep SpO2 >90% -bronchodilators -CXR shows bilateral lung masses with possible superimposed basilar infiltrates -afebrile -no leukocytosis Code(s): J44.9 - CHRONIC OBSTRUCTIVE PULMONARY DISEASE, UNSPECIFIED (2) THIAGO (acute kidney injury) Assessment/Plan: -BUN/Cr 13.5/1.2 -monitor renal function Code(s): N17.9 - ACUTE KIDNEY FAILURE, UNSPECIFIED (3) GERD (gastroesophageal reflux disease) Assessment/Plan: -Pantoprazole Code(s): K21.9 - GASTRO-ESOPHAGEAL REFLUX DISEASE WITHOUT ESOPHAGITIS (4) SCC (squamous cell carcinoma of lung) Assessment/Plan: -Oncology on board Code(s): C34.90 - MALIGNANT NEOPLASM OF UNSP PART OF UNSP BRONCHUS OR LUNG (5) HTN (hypertension) Assessment/Plan: -Norvasc, Losartan -low Na diet Code(s): I10 - ESSENTIAL (PRIMARY) HYPERTENSION (6) Weakness Assessment/Plan: -PT -fall risk Code(s): R53.1 - WEAKNESS Assessment/Plan see problem list dvt ppx
--- NOTE | 2018-10-11 12:46 | PN ---
Progress Note (short form) - Note Progress Note: PULMONARY States breathing is about the same. Still with cough and wheezing. Vital Signs Period Temp Pulse Resp BP Sys/Medeiros Pulse Ox Last 24 Hr 97.7 F-98.0 F 95-104 20-20 112-128/62-74 96 Gen: NAD at rest Heart: RRR Lung: scattered rhonchi Abd: soft, nontender Ext: no edema CBC, BMP 10/10/18 10:00 10/10/18 09:20 Active Medications Albuterol Sulfate (Ventolin 0.083% Nebulizer Soln -) 1 amp NEB RTID [facility] Last Admin: 10/11/18 07:28 Dose: 1 amp Albuterol Sulfate (Ventolin 0.083% Nebulizer Soln -) 1 amp NEB Q4H PRN PRN Reason: SHORT OF BREATH/WHEEZING Alprazolam (Xanax -) 0.25 mg PO Q8H PRN PRN Reason: ANXIETY Last Admin: 10/11/18 01:22 Dose: 0.25 mg Amlodipine Besylate (Norvasc -) 5 mg PO DAILY [facility] Last Admin: 10/11/18 10:16 Dose: 5 mg Atovaquone (Mepron -) 1,500 mg PO DAILY@0800 [facility] Last Admin: 10/11/18 10:16 Dose: 1,500 mg Buspirone HCl (Buspar -) 5 mg PO BID [facility] Last Admin: 10/11/18 10:15 Dose: 5 mg Furosemide (Lasix -) 20 mg PO DAILY [facility] Last Admin: 10/11/18 10:16 Dose: Not Given Guaifenesin (Robitussin Dm -) 10 ml PO Q8H PRN PRN Reason: COUGH Last Admin: 10/11/18 06:45 Dose: 10 ml Heparin Sodium (Porcine) (Heparin -) 5,000 unit SQ BID [facility] Last Admin: 10/11/18 10:15 Dose: 5,000 unit IV Flush (Selin-Cath Flush) 10 ml IVPUSH PRN PRN PRN Reason: FLUSH Last Admin: 10/10/18 01:20 Dose: 10 ml Leflunomide (Arava -) 20 mg PO DAILY [facility] Last Admin: 10/11/18 10:14 Dose: 20 mg Losartan Potassium (Cozaar -) 50 mg PO DAILY [facility] Last Admin: 10/11/18 10:16 Dose: 50 mg Ondansetron HCl (Zofran -) 8 mg PO Q12H PRN PRN Reason: NAUSEA Last Admin: 10/11/18 10:14 Dose: 8 mg Pantoprazole Sodium (Protonix -) 40 mg PO DAILY [facility] Last Admin: 10/11/18 10:15 Dose: 40 mg Prednisone (Deltasone -) 20 mg PO DAILY [facility] Last Admin: 10/11/18 10:16 Dose: 20 mg Sulfasalazine (Azulfidine En-Tabs -) 1,000 mg PO BID [facility] Last Admin: 10/11/18 10:15 Dose: 1,000 mg Zolpidem Tartrate (Ambien -) 5 mg PO HS PRN PRN Reason: INSOMNIA Last Admin: 10/11/18 01:22 Dose: 5 mg A/P Acute COPD Exacerbation Advanced NSCLC DM HTN Anxiety - continue prednisone 20mg daily - inhaled bronchodilators - O2 to keep SpO2>90% - glucose control - DVT prophylaxis - continue discussions regarding goals of care - rehab/PT - d/c planning
--- NOTE | 2018-10-11 23:45 | PN ---
Progress Note (short form) - Note Progress Note: PAtient seen and examined Dyspneic + shortness of breath VSS Cor: RSR, No murmurs, No gallops Lungs: b/l rhonchi Abd: Soft, Normal bowel sounds, No organomegaly Ext:No significant edema Labs/meds reviewed A/P Metastatic lung ca on nivolumab LLL infiltrate On antibiotics/ steroids --clinically improved Repeat CT chest--stable disease. But significant tumor burden. Received several lines of treatment continue supportive care
[2018-10-12] MEDS: PORTA CATH FLUSH 10 ML IVPUSH PRN (00:51)
[2018-10-12] MEDS: guaiFENesin/D-METHORPHAN HB 10 ML UNIT-DOSE CUPS PO PRN ×2 (01:07→20:32)
[2018-10-12] MEDS ORDERED: PT OWN MED DRAWER 7, Y5N ONE (01:41)
[2018-10-12] MEDS: FUROSEMIDE 20 MG TABLET (FP) PO SCH ×2 (05:42→09:38)
[2018-10-12] MEDS: ALBUTEROL SO4 0.083% IH SOL 2.5 MG/3 ML VIAL.NEB. NEB SCH ×3 (08:12→20:50)
[2018-10-12] MEDS: ONDANSETRON 8 MG TABLET (FP) PO PRN (09:49)
[2018-10-12] MEDS: LOSARTAN POTASSIUM 50 MG TABLET (FP) PO SCH (10:02)
[2018-10-12] MEDS: predniSONE 20 MG TABLET (UD) PO SCH (10:02)
[2018-10-12] MEDS: busPIRone HCL 5 MG TABLET PO SCH ×2 (10:02→21:23)
[2018-10-12] MEDS: amLODIPine BESYLATE 5 MG TABLET (FP) PO SCH (10:02)
[2018-10-12] MEDS: LEFLUNOMIDE 10 MG TABLET PO SCH (10:03)
[2018-10-12] MEDS: ATOVAQUONE 750 MG/5 ML (UNIT-DOSE PACKAGING) PO SCH (10:03)
[2018-10-12] MEDS: PANTOPRAZOLE 40 MG TABLET (FP) PO SCH (10:04)
[2018-10-12] MEDS: HEPARIN NA (PORCINE) 5,000 UNITS/ML 1ML VIAL SQ SCH (10:05)
--- NOTE | 2018-10-12 14:27 | PN ---
Progress Note (short form) - Note Progress Note: PULMONARY VSS/afebrile Gen: NAD at rest Heart: RRR Lung: scattered rhonchi Abd: soft, nontender Ext: no edema Active Medications reviewed A/P Acute COPD Exacerbation Advanced NSCLC DM HTN Anxiety - continue prednisone 20mg daily - inhaled bronchodilators - O2 to keep SpO2>90% - glucose control - DVT prophylaxis - continue discussions regarding goals of care - rehab/PT R MICHELLE BERRIOS
--- NOTE | 2018-10-12 14:46 | PN ---
Progress Note, Physician Chief Complaint: COPD Exacerbation Stage 4 Lung Cancer History of Present Illness: Previous notes and events reviewed awake and alert NAD denies chest pain or SOB complain of vomiting yellow contents today--abdominal US ordered - Current Medication List Current Medications: Active Medications Albuterol Sulfate (Ventolin 0.083% Nebulizer Soln -) 1 amp NEB RTID [facility] Last Admin: 10/12/18 08:12 Dose: 1 amp Albuterol Sulfate (Ventolin 0.083% Nebulizer Soln -) 1 amp NEB Q4H PRN PRN Reason: SHORT OF BREATH/WHEEZING Amlodipine Besylate (Norvasc -) 5 mg PO DAILY [facility] Last Admin: 10/12/18 10:02 Dose: 5 mg Atovaquone (Mepron -) 1,500 mg PO DAILY@0800 [facility] Last Admin: 10/12/18 10:03 Dose: 1,500 mg Buspirone HCl (Buspar -) 5 mg PO BID [facility] Last Admin: 10/12/18 10:02 Dose: 5 mg Furosemide (Lasix -) 20 mg PO DAILY [facility] Last Admin: 10/12/18 09:38 Dose: Not Given Guaifenesin (Robitussin Dm -) 10 ml PO Q8H PRN PRN Reason: COUGH Last Admin: 10/12/18 01:07 Dose: 10 ml IV Flush (Selin-Cath Flush) 10 ml IVPUSH PRN PRN PRN Reason: FLUSH Last Admin: 10/12/18 00:51 Dose: 10 ml Leflunomide (Arava -) 20 mg PO DAILY [facility] Last Admin: 10/12/18 10:03 Dose: 20 mg Losartan Potassium (Cozaar -) 50 mg PO DAILY [facility] Last Admin: 10/12/18 10:02 Dose: 50 mg Ondansetron HCl (Zofran -) 8 mg PO Q12H PRN PRN Reason: NAUSEA Last Admin: 10/12/18 09:49 Dose: 8 mg Pantoprazole Sodium (Protonix -) 40 mg PO DAILY [facility] Last Admin: 10/12/18 10:04 Dose: 40 mg Prednisone (Deltasone -) 20 mg PO DAILY [facility] Last Admin: 10/12/18 10:02 Dose: 20 mg Sulfasalazine (Azulfidine En-Tabs -) 1,000 mg PO BID [facility] Last Admin: 10/12/18 10:06 Dose: 1,000 mg - Objective Vital Signs: Vital Signs Temperature 97.9 F 10/12/18 13:50 Pulse Rate 104 H 10/12/18 13:50 Respiratory Rate 20 10/12/18 13:50 Blood Pressure 117/69 10/12/18 13:50 O2 Sat by Pulse Oximetry (%) 96 10/12/18 09:00 Constitutional: Yes: No Distress, Calm, Obese Eyes: Yes: Conjunctiva Clear HENT: Yes: Atraumatic Cardiovascular: Yes: Regular Rate and Rhythm Respiratory: Yes: Regular, Cough, Diminished, On Nasal O2 Gastrointestinal: Yes: Normal Bowel Sounds, Soft, Abdomen, Obese Musculoskeletal: Yes: Muscle Weakness Extremities: Yes: WNL Edema: No Neurological: Yes: Alert, Oriented Psychiatric: Yes: Alert, Oriented Labs: CBC, BMP 10/10/18 10:00 10/10/18 09:20 INR, PTT INR 1.17 (0.83-1.09) H 09/29/18 06:50 Problem List - Problems (1) COPD (chronic obstructive pulmonary disease) Assessment/Plan: -Pulmonary on board -prednisone -Furosemide -O2 via NC -keep SpO2 >90% -bronchodilators -CXR shows bilateral lung masses with possible superimposed basilar infiltrates -afebrile -no leukocytosis Code(s): J44.9 - CHRONIC OBSTRUCTIVE PULMONARY DISEASE, UNSPECIFIED (2) THIAGO (acute kidney injury) Assessment/Plan: -BUN/Cr 13.5/1.2 -monitor renal function Code(s): N17.9 - ACUTE KIDNEY FAILURE, UNSPECIFIED (3) GERD (gastroesophageal reflux disease) Assessment/Plan: -Pantoprazole Code(s): K21.9 - GASTRO-ESOPHAGEAL REFLUX DISEASE WITHOUT ESOPHAGITIS (4) SCC (squamous cell carcinoma of lung) Assessment/Plan: -Oncology on board Code(s): C34.90 - MALIGNANT NEOPLASM OF UNSP PART OF UNSP BRONCHUS OR LUNG (5) HTN (hypertension) Assessment/Plan: -Norvasc, Losartan -low Na diet Code(s): I10 - ESSENTIAL (PRIMARY) HYPERTENSION (6) Weakness Assessment/Plan: -PT -fall risk Code(s): R53.1 - WEAKNESS Assessment/Plan see problem list dvt ppx
[2018-10-12] MEDS ORDERED: ZOLPIDEM TARTRATE 5 MG TABLET PO ONE (21:27)
[2018-10-13] MEDS: ALBUTEROL SO4 0.083% IH SOL 2.5 MG/3 ML VIAL.NEB. NEB SCH ×3 (08:06→20:30)
[2018-10-13] MEDS ORDERED: PT OWN MED DRAWER 7, Y5N ONE (10:34)
[2018-10-13] MEDS: amLODIPine BESYLATE 5 MG TABLET (FP) PO SCH (10:42)
[2018-10-13] MEDS: LOSARTAN POTASSIUM 50 MG TABLET (FP) PO SCH (10:42)
[2018-10-13] MEDS: PANTOPRAZOLE 40 MG TABLET (FP) PO SCH (10:42)
[2018-10-13] MEDS: FUROSEMIDE 20 MG TABLET (FP) PO SCH (10:42)
[2018-10-13] MEDS: predniSONE 20 MG TABLET (UD) PO SCH (10:42)
[2018-10-13] MEDS: busPIRone HCL 5 MG TABLET PO SCH ×2 (10:43→22:49)
[2018-10-13] MEDS: LEFLUNOMIDE 10 MG TABLET PO SCH (10:44)
[2018-10-13] MEDS: ATOVAQUONE 750 MG/5 ML (UNIT-DOSE PACKAGING) PO SCH (10:45)
--- NOTE | 2018-10-13 11:41 | PN ---
Progress Note (short form) - Note Progress Note: PULMONARY States breathing is about the same. Still with cough and wheezing. Vital Signs Period Temp Pulse Resp BP Sys/Medeiros Pulse Ox Last 24 Hr 97.9 F-98.6 F 76-119 20-20 99-123/54-71 93-93 Gen: NAD at rest Heart: RRR Lung: scattered rhonchi Abd: soft, nontender Ext: no edema CBC, BMP 10/10/18 10:00 10/10/18 09:20 Active Medications Albuterol Sulfate (Ventolin 0.083% Nebulizer Soln -) 1 amp NEB RTID [facility] Last Admin: 10/13/18 08:06 Dose: Not Given Albuterol Sulfate (Ventolin 0.083% Nebulizer Soln -) 1 amp NEB Q4H PRN PRN Reason: SHORT OF BREATH/WHEEZING Amlodipine Besylate (Norvasc -) 5 mg PO DAILY [facility] Last Admin: 10/13/18 10:42 Dose: 5 mg Atovaquone (Mepron -) 1,500 mg PO DAILY@0800 [facility] Last Admin: 10/13/18 10:45 Dose: Not Given Buspirone HCl (Buspar -) 5 mg PO BID [facility] Last Admin: 10/13/18 10:43 Dose: 5 mg Furosemide (Lasix -) 20 mg PO DAILY [facility] Last Admin: 10/13/18 10:42 Dose: Not Given Guaifenesin (Robitussin Dm -) 10 ml PO Q8H PRN PRN Reason: COUGH Last Admin: 10/12/18 20:32 Dose: 10 ml IV Flush (Selin-Cath Flush) 10 ml IVPUSH PRN PRN PRN Reason: FLUSH Last Admin: 10/12/18 00:51 Dose: 10 ml Leflunomide (Arava -) 20 mg PO DAILY [facility] Last Admin: 10/13/18 10:44 Dose: 20 mg Losartan Potassium (Cozaar -) 50 mg PO DAILY [facility] Last Admin: 10/13/18 10:42 Dose: 50 mg Ondansetron HCl (Zofran -) 8 mg PO Q12H PRN PRN Reason: NAUSEA Last Admin: 10/12/18 09:49 Dose: 8 mg Pantoprazole Sodium (Protonix -) 40 mg PO DAILY [facility] Last Admin: 10/13/18 10:42 Dose: 40 mg Prednisone (Deltasone -) 20 mg PO DAILY [facility] Last Admin: 10/13/18 10:42 Dose: 20 mg Sulfasalazine (Azulfidine En-Tabs -) 1,000 mg PO BID [facility] Last Admin: 10/12/18 21:23 Dose: 1,000 mg A/P Acute COPD Exacerbation Advanced NSCLC DM HTN Anxiety - continue prednisone 20mg daily - inhaled bronchodilators - O2 to keep SpO2>90% - glucose control - DVT prophylaxis - continue discussions regarding goals of care - rehab/PT - d/c planning
--- NOTE | 2018-10-13 13:55 | PN ---
Progress Note, Physician - Current Medication List Current Medications: Active Medications Albuterol Sulfate (Ventolin 0.083% Nebulizer Soln -) 1 amp NEB RTID [facility] Last Admin: 10/13/18 08:06 Dose: Not Given Albuterol Sulfate (Ventolin 0.083% Nebulizer Soln -) 1 amp NEB Q4H PRN PRN Reason: SHORT OF BREATH/WHEEZING Amlodipine Besylate (Norvasc -) 5 mg PO DAILY [facility] Last Admin: 10/13/18 10:42 Dose: 5 mg Atovaquone (Mepron -) 1,500 mg PO DAILY@0800 [facility] Last Admin: 10/13/18 10:45 Dose: Not Given Buspirone HCl (Buspar -) 5 mg PO BID [facility] Last Admin: 10/13/18 10:43 Dose: 5 mg Furosemide (Lasix -) 20 mg PO DAILY [facility] Last Admin: 10/13/18 10:42 Dose: Not Given Guaifenesin (Robitussin Dm -) 10 ml PO Q8H PRN PRN Reason: COUGH Last Admin: 10/12/18 20:32 Dose: 10 ml IV Flush (Selin-Cath Flush) 10 ml IVPUSH PRN PRN PRN Reason: FLUSH Last Admin: 10/12/18 00:51 Dose: 10 ml Leflunomide (Arava -) 20 mg PO DAILY [facility] Last Admin: 10/13/18 10:44 Dose: 20 mg Losartan Potassium (Cozaar -) 50 mg PO DAILY [facility] Last Admin: 10/13/18 10:42 Dose: 50 mg Ondansetron HCl (Zofran -) 8 mg PO Q12H PRN PRN Reason: NAUSEA Last Admin: 10/12/18 09:49 Dose: 8 mg Pantoprazole Sodium (Protonix -) 40 mg PO DAILY [facility] Last Admin: 10/13/18 10:42 Dose: 40 mg Prednisone (Deltasone -) 20 mg PO DAILY [facility] Last Admin: 10/13/18 10:42 Dose: 20 mg Sulfasalazine (Azulfidine En-Tabs -) 1,000 mg PO BID [facility] Last Admin: 10/13/18 13:16 Dose: 1,000 mg - Objective Vital Signs: Vital Signs Temperature 98.4 F 10/13/18 06:00 Pulse Rate 104 H 10/13/18 06:00 Respiratory Rate 20 10/13/18 09:00 Blood Pressure 123/71 10/13/18 06:00 O2 Sat by Pulse Oximetry (%) 93 L 10/13/18 09:00 Cardiovascular: Yes: S1, S2 Respiratory: Yes: Regular, CTA Bilaterally Gastrointestinal: Yes: Normal Bowel Sounds, Soft. No: Tenderness Labs: CBC, BMP 10/10/18 10:00 10/10/18 09:20 INR, PTT INR 1.17 (0.83-1.09) H 09/29/18 06:50 Assessment/Plan - Problems (1) COPD (chronic obstructive pulmonary disease) Assessment/Plan: -Pulmonary on board -prednisone -Furosemide -O2 via NC -keep SpO2 >90% -bronchodilators -CXR shows bilateral lung masses with possible superimposed basilar infiltrates -afebrile -no leukocytosis Code(s): J44.9 - CHRONIC OBSTRUCTIVE PULMONARY DISEASE, UNSPECIFIED (2) TIHAGO (acute kidney injury) Assessment/Plan: -BUN/Cr 13.5/1.2 -monitor renal function Code(s): N17.9 - ACUTE KIDNEY FAILURE, UNSPECIFIED (3) GERD (gastroesophageal reflux disease) Assessment/Plan: -Pantoprazole Code(s): K21.9 - GASTRO-ESOPHAGEAL REFLUX DISEASE WITHOUT ESOPHAGITIS (4) SCC (squamous cell carcinoma of lung) Assessment/Plan: -Oncology on board Code(s): C34.90 - MALIGNANT NEOPLASM OF UNSP PART OF UNSP BRONCHUS OR LUNG (5) HTN (hypertension) Assessment/Plan: -Norvasc, Losartan -low Na diet Code(s): I10 - ESSENTIAL (PRIMARY) HYPERTENSION (6) Weakness Assessment/Plan: -PT -fall risk Code(s): R53.1 - WEAKNESS dc planning---snf
[2018-10-13] MEDS: ONDANSETRON 8 MG TABLET (FP) PO PRN (14:46)
[2018-10-13] MEDS ORDERED: ZOLPIDEM TARTRATE 5 MG TABLET PO ONE (21:28)
[2018-10-13] MEDS ORDERED: ALPRAZolam 0.25 MG TABLET PO ONE (22:00)
[2018-10-13] MEDS ORDERED: ZOLPIDEM TARTRATE 5 MG TABLET PO PRN (23:46)
--- NOTE | 2018-10-13 23:50 | PN ---
Progress Note (short form) - Note Progress Note: PAtient seen and examined Dyspneic/coughing + shortness of breath VSS Cor: RSR, No murmurs, No gallops Lungs: b/l rhonchi Abd: Soft, Normal bowel sounds, No organomegaly Ext:No significant edema Labs/meds reviewed A/P Metastatic lung ca on nivolumab LLL infiltrate s/p antibiotics/ steroids --clinically improved Repeat CT chest--stable disease. But significant tumor burden. Received several lines of treatment continue supportive care SNF placement
[2018-10-14] MEDS ORDERED: PT OWN MED DRAWER 7, Y5N ONE ×3 (00:22→22:08)
[2018-10-14] MEDS: ALBUTEROL SO4 0.083% IH SOL 2.5 MG/3 ML VIAL.NEB. NEB SCH ×3 (07:49→20:37)
[2018-10-14] MEDS: amLODIPine BESYLATE 5 MG TABLET (FP) PO SCH (09:35)
[2018-10-14] MEDS: PANTOPRAZOLE 40 MG TABLET (FP) PO SCH (09:35)
[2018-10-14] MEDS: predniSONE 20 MG TABLET (UD) PO SCH (09:35)
[2018-10-14] MEDS: LOSARTAN POTASSIUM 50 MG TABLET (FP) PO SCH (09:35)
[2018-10-14] MEDS: busPIRone HCL 5 MG TABLET PO SCH ×3 (09:35→23:00)
[2018-10-14] MEDS: ATOVAQUONE 750 MG/5 ML (UNIT-DOSE PACKAGING) PO SCH (09:36)
[2018-10-14] MEDS: LEFLUNOMIDE 10 MG TABLET PO SCH (09:36)
[2018-10-14] MEDS: FUROSEMIDE 20 MG TABLET (FP) PO SCH (09:47)
--- NOTE | 2018-10-14 11:02 | PN ---
Progress Note, Physician - Current Medication List Current Medications: Active Medications Albuterol Sulfate (Ventolin 0.083% Nebulizer Soln -) 1 amp NEB RTID [facility] Last Admin: 10/14/18 07:49 Dose: Not Given Albuterol Sulfate (Ventolin 0.083% Nebulizer Soln -) 1 amp NEB Q4H PRN PRN Reason: SHORT OF BREATH/WHEEZING Alprazolam (Xanax -) 0.25 mg PO BID PRN PRN Reason: ANXIETY Amlodipine Besylate (Norvasc -) 5 mg PO DAILY [facility] Last Admin: 10/14/18 09:35 Dose: 5 mg Atovaquone (Mepron -) 1,500 mg PO DAILY@0800 [facility] Last Admin: 10/14/18 09:36 Dose: Not Given Buspirone HCl (Buspar -) 5 mg PO BID [facility] Last Admin: 10/14/18 09:35 Dose: 5 mg Furosemide (Lasix -) 20 mg PO DAILY [facility] Last Admin: 10/14/18 09:47 Dose: Not Given Guaifenesin (Robitussin Dm -) 10 ml PO Q8H PRN PRN Reason: COUGH Last Admin: 10/12/18 20:32 Dose: 10 ml IV Flush (Selin-Cath Flush) 10 ml IVPUSH PRN PRN PRN Reason: FLUSH Last Admin: 10/12/18 00:51 Dose: 10 ml Leflunomide (Arava -) 20 mg PO DAILY [facility] Last Admin: 10/14/18 09:36 Dose: 20 mg Losartan Potassium (Cozaar -) 50 mg PO DAILY [facility] Last Admin: 10/14/18 09:35 Dose: 50 mg Ondansetron HCl (Zofran -) 8 mg PO Q12H PRN PRN Reason: NAUSEA Last Admin: 10/13/18 14:46 Dose: 8 mg Pantoprazole Sodium (Protonix -) 40 mg PO DAILY [facility] Last Admin: 10/14/18 09:35 Dose: 40 mg Prednisone (Deltasone -) 20 mg PO DAILY [facility] Last Admin: 10/14/18 09:35 Dose: 20 mg Sulfasalazine (Azulfidine En-Tabs -) 1,000 mg PO BID [facility] Last Admin: 10/14/18 09:36 Dose: 1,000 mg Zolpidem Tartrate (Ambien -) 10 mg PO HS PRN PRN Reason: INSOMNIA - Objective Vital Signs: Vital Signs Temperature 98 F 10/14/18 10:00 Pulse Rate 110 H 10/14/18 10:00 Respiratory Rate 18 10/14/18 10:00 Blood Pressure 119/58 L 10/14/18 10:00 O2 Sat by Pulse Oximetry (%) 95 10/14/18 08:47 Cardiovascular: Yes: S1, S2 Respiratory: Yes: Diminished, On Nasal O2 Gastrointestinal: Yes: Normal Bowel Sounds, Soft Labs: CBC, BMP 10/10/18 10:00 10/10/18 09:20 INR, PTT INR 1.17 (0.83-1.09) H 09/29/18 06:50 Assessment/Plan - Problems (1) COPD (chronic obstructive pulmonary disease) Assessment/Plan: -Pulmonary on board -prednisone -Furosemide -O2 via NC -keep SpO2 >90% -bronchodilators -CXR shows bilateral lung masses with possible superimposed basilar infiltrates -afebrile -no leukocytosis Code(s): J44.9 - CHRONIC OBSTRUCTIVE PULMONARY DISEASE, UNSPECIFIED (2) THIAGO (acute kidney injury) Assessment/Plan: -BUN/Cr 13.5/1.2 -monitor renal function Code(s): N17.9 - ACUTE KIDNEY FAILURE, UNSPECIFIED (3) GERD (gastroesophageal reflux disease) Assessment/Plan: -Pantoprazole Code(s): K21.9 - GASTRO-ESOPHAGEAL REFLUX DISEASE WITHOUT ESOPHAGITIS (4) SCC (squamous cell carcinoma of lung) Assessment/Plan: -Oncology on board Code(s): C34.90 - MALIGNANT NEOPLASM OF UNSP PART OF UNSP BRONCHUS OR LUNG (5) HTN (hypertension) Assessment/Plan: -Norvasc, Losartan -low Na diet Code(s): I10 - ESSENTIAL (PRIMARY) HYPERTENSION (6) Weakness Assessment/Plan: -PT -fall risk Code(s): R53.1 - WEAKNESS dc planning---snf
--- NOTE | 2018-10-14 11:12 | PN ---
Progress Note (short form) - Note Progress Note: PULMONARY Feels good today. Less short of breath. Vital Signs Period Temp Pulse Resp BP Sys/Medeiros Pulse Ox Last 24 Hr 98 F-98.4 F 103-110 18-22 102-135/58-72 95-95 Gen: NAD at rest Heart: RRR Lung: scattered rhonchi Abd: soft, nontender Ext: no edema CBC, BMP 10/10/18 10:00 10/10/18 09:20 Active Medications Albuterol Sulfate (Ventolin 0.083% Nebulizer Soln -) 1 amp NEB RTID [facility] Last Admin: 10/14/18 07:49 Dose: Not Given Albuterol Sulfate (Ventolin 0.083% Nebulizer Soln -) 1 amp NEB Q4H PRN PRN Reason: SHORT OF BREATH/WHEEZING Alprazolam (Xanax -) 0.25 mg PO BID PRN PRN Reason: ANXIETY Amlodipine Besylate (Norvasc -) 5 mg PO DAILY [facility] Last Admin: 10/14/18 09:35 Dose: 5 mg Atovaquone (Mepron -) 1,500 mg PO DAILY@0800 [facility] Last Admin: 10/14/18 09:36 Dose: Not Given Buspirone HCl (Buspar -) 5 mg PO BID [facility] Last Admin: 10/14/18 09:35 Dose: 5 mg Furosemide (Lasix -) 20 mg PO DAILY [facility] Last Admin: 10/14/18 09:47 Dose: Not Given Guaifenesin (Robitussin Dm -) 10 ml PO Q8H PRN PRN Reason: COUGH Last Admin: 10/12/18 20:32 Dose: 10 ml IV Flush (Selin-Cath Flush) 10 ml IVPUSH PRN PRN PRN Reason: FLUSH Last Admin: 10/12/18 00:51 Dose: 10 ml Leflunomide (Arava -) 20 mg PO DAILY [facility] Last Admin: 10/14/18 09:36 Dose: 20 mg Losartan Potassium (Cozaar -) 50 mg PO DAILY [facility] Last Admin: 10/14/18 09:35 Dose: 50 mg Ondansetron HCl (Zofran -) 8 mg PO Q12H PRN PRN Reason: NAUSEA Last Admin: 10/13/18 14:46 Dose: 8 mg Pantoprazole Sodium (Protonix -) 40 mg PO DAILY [facility] Last Admin: 10/14/18 09:35 Dose: 40 mg Prednisone (Deltasone -) 20 mg PO DAILY [facility] Last Admin: 10/14/18 09:35 Dose: 20 mg Sulfasalazine (Azulfidine En-Tabs -) 1,000 mg PO BID [facility] Last Admin: 10/14/18 09:36 Dose: 1,000 mg Zolpidem Tartrate (Ambien -) 10 mg PO HS PRN PRN Reason: INSOMNIA A/P Acute COPD Exacerbation Advanced NSCLC DM HTN Anxiety - continue prednisone 20mg daily - inhaled bronchodilators - O2 to keep SpO2>90% - glucose control - DVT prophylaxis - continue discussions regarding goals of care - rehab/PT - d/c planning
[2018-10-14] MEDS ORDERED: ZOLPIDEM TARTRATE 5 MG TABLET PO ONE (23:03)
[2018-10-14] MEDS ORDERED: LOPERAMIDE HCL 1 MG/5 ML UNIT DOSE CUP PO ONE (23:04)
[2018-10-14] MEDS: ALPRAZolam 0.25 MG TABLET PO PRN (23:34)
[2018-10-15] MEDS ORDERED: MELATONIN 5 MG TABLETS PO ONE (05:36)
[2018-10-15] MEDS ORDERED: busPIRone HCL 5 MG TABLET PO ONE (05:42)
[2018-10-15] MEDS: ALBUTEROL SO4 0.083% IH SOL 2.5 MG/3 ML VIAL.NEB. NEB SCH (07:42)
[2018-10-15] MEDS ORDERED: PT OWN MED DRAWER 7, Y5N ONE (08:37)
[2018-10-15] MEDS: busPIRone HCL 5 MG TABLET PO SCH ×2 (09:33→23:03)
[2018-10-15] MEDS: amLODIPine BESYLATE 5 MG TABLET (FP) PO SCH (09:33)
[2018-10-15] MEDS: LOSARTAN POTASSIUM 50 MG TABLET (FP) PO SCH (09:33)
[2018-10-15] MEDS: FUROSEMIDE 20 MG TABLET (FP) PO SCH (09:33)
[2018-10-15] MEDS: PANTOPRAZOLE 40 MG TABLET (FP) PO SCH (09:33)
[2018-10-15] MEDS: predniSONE 20 MG TABLET (UD) PO SCH (09:33)
[2018-10-15] MEDS: LEFLUNOMIDE 10 MG TABLET PO SCH (09:34)
[2018-10-15] MEDS: ATOVAQUONE 750 MG/5 ML (UNIT-DOSE PACKAGING) PO SCH (09:35)
[2018-10-15] MEDS: ONDANSETRON 8 MG TABLET (FP) PO PRN ×2 (10:45→23:02)
[2018-10-15] MEDS: guaiFENesin/D-METHORPHAN HB 10 ML UNIT-DOSE CUPS PO PRN (10:46)
--- NOTE | 2018-10-15 10:51 | PN ---
Progress Note, Physician - Current Medication List Current Medications: Active Medications Albuterol Sulfate (Ventolin 0.083% Nebulizer Soln -) 1 amp NEB RTID [facility] Last Admin: 10/15/18 07:42 Dose: Not Given Albuterol Sulfate (Ventolin 0.083% Nebulizer Soln -) 1 amp NEB Q4H PRN PRN Reason: SHORT OF BREATH/WHEEZING Alprazolam (Xanax -) 0.25 mg PO BID PRN PRN Reason: ANXIETY Last Admin: 10/14/18 23:34 Dose: 0.25 mg Amlodipine Besylate (Norvasc -) 5 mg PO DAILY [facility] Last Admin: 10/15/18 09:33 Dose: 5 mg Atovaquone (Mepron -) 1,500 mg PO DAILY@0800 [facility] Last Admin: 10/15/18 09:35 Dose: 1,500 mg Buspirone HCl (Buspar -) 5 mg PO BID [facility] Last Admin: 10/15/18 09:33 Dose: Not Given Furosemide (Lasix -) 20 mg PO DAILY [facility] Last Admin: 10/15/18 09:33 Dose: Not Given Guaifenesin (Robitussin Dm -) 10 ml PO Q8H PRN PRN Reason: COUGH Last Admin: 10/15/18 10:46 Dose: 10 ml IV Flush (Selin-Cath Flush) 10 ml IVPUSH PRN PRN PRN Reason: FLUSH Last Admin: 10/12/18 00:51 Dose: 10 ml Leflunomide (Arava -) 20 mg PO DAILY [facility] Last Admin: 10/15/18 09:34 Dose: 20 mg Losartan Potassium (Cozaar -) 50 mg PO DAILY [facility] Last Admin: 10/15/18 09:33 Dose: 50 mg Ondansetron HCl (Zofran -) 8 mg PO Q12H PRN PRN Reason: NAUSEA Last Admin: 10/15/18 10:45 Dose: 8 mg Pantoprazole Sodium (Protonix -) 40 mg PO DAILY [facility] Last Admin: 10/15/18 09:33 Dose: 40 mg Prednisone (Deltasone -) 20 mg PO DAILY [facility] Last Admin: 10/15/18 09:33 Dose: 20 mg Sulfasalazine (Azulfidine En-Tabs -) 1,000 mg PO BID [facility] Last Admin: 10/15/18 09:35 Dose: 1,000 mg Zolpidem Tartrate (Ambien -) 10 mg PO HS PRN PRN Reason: INSOMNIA - Objective Vital Signs: Vital Signs Temperature 98.1 F 10/15/18 09:38 Pulse Rate 110 H 10/15/18 09:38 Respiratory Rate 20 10/15/18 09:38 Blood Pressure 149/79 10/15/18 09:38 O2 Sat by Pulse Oximetry (%) 95 10/15/18 09:00 Cardiovascular: Yes: Regular Rate and Rhythm Respiratory: Yes: Regular, CTA Bilaterally Gastrointestinal: Yes: Normal Bowel Sounds, Soft. No: Tenderness Labs: CBC, BMP 10/10/18 10:00 10/10/18 09:20 INR, PTT INR 1.17 (0.83-1.09) H 09/29/18 06:50 Assessment/Plan - Problems (1) COPD (chronic obstructive pulmonary disease) Assessment/Plan: -Pulmonary on board -prednisone -Furosemide -O2 via NC -keep SpO2 >90% -bronchodilators -CXR shows bilateral lung masses with possible superimposed basilar infiltrates -afebrile -no leukocytosis Code(s): J44.9 - CHRONIC OBSTRUCTIVE PULMONARY DISEASE, UNSPECIFIED (2) THIGAO (acute kidney injury) Assessment/Plan: -BUN/Cr 13.5/1.2 -monitor renal function Code(s): N17.9 - ACUTE KIDNEY FAILURE, UNSPECIFIED (3) GERD (gastroesophageal reflux disease) Assessment/Plan: -Pantoprazole Code(s): K21.9 - GASTRO-ESOPHAGEAL REFLUX DISEASE WITHOUT ESOPHAGITIS (4) SCC (squamous cell carcinoma of lung) Assessment/Plan: -Oncology on board Code(s): C34.90 - MALIGNANT NEOPLASM OF UNSP PART OF UNSP BRONCHUS OR LUNG (5) HTN (hypertension) Assessment/Plan: -Norvasc, Losartan -low Na diet Code(s): I10 - ESSENTIAL (PRIMARY) HYPERTENSION (6) Weakness Assessment/Plan: -PT -fall risk Code(s): R53.1 - WEAKNESS dc planning---snf
--- NOTE | 2018-10-15 11:07 | PN ---
Progress Note (short form) - Note Progress Note: Patient seen and examined Wretching. Having diarrhea SOB and dyspneic Last Vital Signs Temp Pulse Resp BP Pulse Ox 98.1 F 110 H 20 149/79 95 10/15/18 09:38 10/15/18 09:38 10/15/18 09:38 10/15/18 09:38 10/15/18 09:00 Lungs - rhonchi Cor _ RSR Abd- soft CBC, BMP 10/10/18 10:00 10/10/18 09:20 Current Medications Generic Name Dose Route Start Last Admin Trade Name Freq PRN Reason Stop Dose Admin Albuterol Sulfate 1 amp 10/10/18 14:00 10/15/18 07:42 Ventolin 0.083% Nebulizer Soln - NEB Not Given RTID [facility] Albuterol Sulfate 1 amp 10/10/18 11:36 Ventolin 0.083% Nebulizer Soln - NEB Q4H PRN SHORT OF BREATH/WHEEZING Alprazolam 0.25 mg 10/13/18 23:47 10/14/18 23:34 Xanax - PO 0.25 mg BID PRN Administration ANXIETY Amlodipine Besylate 5 mg 09/30/18 21:00 10/15/18 09:33 Norvasc - PO 5 mg DAILY [facility] Administration Atovaquone 1,500 mg 09/30/18 08:00 10/15/18 09:35 Mepron - PO 1,500 mg DAILY@0800 [facility] Administration Buspirone HCl 5 mg 10/09/18 22:00 10/15/18 09:33 Buspar - PO Not Given BID [facility] Furosemide 20 mg 10/05/18 07:30 10/15/18 09:33 Lasix - PO Not Given DAILY [facility] Guaifenesin 10 ml 10/11/18 02:37 10/15/18 10:46 Robitussin Dm - PO 10 ml Q8H PRN Administration COUGH IV Flush 10 ml 09/30/18 16:50 10/12/18 00:51 Selin-Cath Flush IVPUSH 10 ml PRN PRN Administration FLUSH Leflunomide 20 mg 09/30/18 10:00 10/15/18 09:34 Arava - PO 20 mg DAILY [facility] Administration Loperamide HCl 2 mg 10/15/18 10:50 Imodium - PO Q8H PRN DIARRHEA Losartan Potassium 50 mg 09/30/18 10:00 10/15/18 09:33 Cozaar - PO 50 mg DAILY [facility] Administration Ondansetron HCl 8 mg 10/05/18 09:30 10/15/18 10:45 Zofran - PO 8 mg Q12H PRN Administration NAUSEA Pantoprazole Sodium 40 mg 09/30/18 10:00 10/15/18 09:33 Protonix - PO 40 mg DAILY [facility] Administration Prednisone 20 mg 10/03/18 10:00 10/15/18 09:33 Deltasone - PO 20 mg DAILY [facility] Administration Sulfasalazine 1,000 mg 09/29/18 23:45 10/15/18 09:35 Azulfidine En-Tabs - PO 1,000 mg BID [facility] Administration Zolpidem Tartrate 10 mg 10/13/18 23:46 Ambien - PO HS PRN INSOMNIA Impression: Lung ca COPD Oxygen dependent Atypical chest pain syndrome Rheumatoid arthritis Anemia Diarrhea Plan : Stool for c. difficile immodium Prn
--- NOTE | 2018-10-15 11:34 | PN ---
Progress Note (short form) - Note Progress Note: PULMONARY OOB to Chair nausea w vomiting/diarrhea still sob spo2 97% on nasal o2 VSS/afebrile Gen: NAD at rest Heart: RRR Lung: scattered rhonchi Abd: soft, nontender Ext: no edema Active Medications reviewed A/P Acute COPD Exacerbation Advanced NSCLC DM HTN Anxiety Nausea/vomiting/diarrhea - continue prednisone 20mg daily - inhaled bronchodilators - O2 to keep SpO2>90% - glucose control - DVT prophylaxis - imodium/stool c.diff via onco - rehab/PT Payal AMRTINEZ MD
[2018-10-15] MEDS: LOPERAMIDE HCL 2 MG CAPSULE PO PRN ×2 (15:17→23:03)
[2018-10-15] MEDS ORDERED: ONDANSETRON 4 MG TABLET PO ONE (20:00)
[2018-10-15] MEDS ORDERED: ZOLPIDEM TARTRATE 5 MG TABLET PO PRN (20:19)
[2018-10-16] MEDS: ALPRAZolam 0.25 MG TABLET PO PRN (01:02)
[2018-10-16] MEDS ORDERED: PT OWN MED DRAWER 7, Y5N ONE ×2 (08:05→08:52)
[2018-10-16] MEDS: LOPERAMIDE HCL 2 MG CAPSULE PO PRN (09:35)
[2018-10-16] MEDS: predniSONE 20 MG TABLET (UD) PO SCH (09:35)
[2018-10-16] MEDS: LOSARTAN POTASSIUM 50 MG TABLET (FP) PO SCH (09:35)
[2018-10-16] MEDS: PANTOPRAZOLE 40 MG TABLET (FP) PO SCH (09:35)
[2018-10-16] MEDS: FUROSEMIDE 20 MG TABLET (FP) PO SCH (09:35)
[2018-10-16] MEDS: amLODIPine BESYLATE 5 MG TABLET (FP) PO SCH (09:35)
[2018-10-16] MEDS: LEFLUNOMIDE 10 MG TABLET PO SCH (09:36)
[2018-10-16] MEDS: ATOVAQUONE 750 MG/5 ML (UNIT-DOSE PACKAGING) PO SCH (09:42)
[2018-10-16] MEDS: busPIRone HCL 5 MG TABLET PO SCH ×2 (09:42→12:51)
--- NOTE | 2018-10-16 12:27 | PN ---
Progress Note (short form) - Note Progress Note: PULMONARY Feels good today. Excited about rehab. Vital Signs Period Temp Pulse Resp BP Sys/Medeiros Pulse Ox Last 24 Hr 98.1 F-99.3 F 95-109 18-20 113-147/47-87 97 Gen: NAD at rest Heart: RRR Lung: scattered rhonchi Abd: soft, nontender Ext: no edema CBC, BMP 10/10/18 10:00 10/10/18 09:20 Active Medications Alprazolam (Xanax -) 0.25 mg PO BID PRN PRN Reason: ANXIETY Last Admin: 10/16/18 01:02 Dose: 0.25 mg Amlodipine Besylate (Norvasc -) 5 mg PO DAILY [facility] Last Admin: 10/16/18 09:35 Dose: 5 mg Atovaquone (Mepron -) 1,500 mg PO DAILY@0800 [facility] Last Admin: 10/16/18 09:42 Dose: Not Given Buspirone HCl (Buspar -) 5 mg PO BID [facility] Last Admin: 10/16/18 09:42 Dose: Not Given Furosemide (Lasix -) 20 mg PO DAILY [facility] Last Admin: 10/16/18 09:35 Dose: Not Given Guaifenesin (Robitussin Dm -) 10 ml PO Q8H PRN PRN Reason: COUGH Last Admin: 10/15/18 10:46 Dose: 10 ml IV Flush (Selin-Cath Flush) 10 ml IVPUSH PRN PRN PRN Reason: FLUSH Last Admin: 10/12/18 00:51 Dose: 10 ml Leflunomide (Arava -) 20 mg PO DAILY [facility] Last Admin: 10/16/18 09:36 Dose: 20 mg Loperamide HCl (Imodium -) 2 mg PO Q8H PRN PRN Reason: DIARRHEA Last Admin: 10/16/18 09:35 Dose: 2 mg Losartan Potassium (Cozaar -) 50 mg PO DAILY [facility] Last Admin: 10/16/18 09:35 Dose: 50 mg Ondansetron HCl (Zofran -) 8 mg PO Q12H PRN PRN Reason: NAUSEA Last Admin: 10/15/18 23:02 Dose: 8 mg Pantoprazole Sodium (Protonix -) 40 mg PO DAILY [facility] Last Admin: 10/16/18 09:35 Dose: 40 mg Prednisone (Deltasone -) 20 mg PO DAILY [facility] Last Admin: 10/16/18 09:35 Dose: 20 mg Sulfasalazine (Azulfidine En-Tabs -) 1,000 mg PO BID [facility] Last Admin: 10/16/18 09:36 Dose: 1,000 mg Zolpidem Tartrate (Ambien -) 5 mg PO HS PRN PRN Reason: INSOMNIA Last Admin: 10/16/18 01:02 Dose: 5 mg A/P Acute COPD Exacerbation Advanced NSCLC DM HTN Anxiety - continue prednisone 20mg daily - inhaled bronchodilators - O2 to keep SpO2>90% - glucose control - DVT prophylaxis - continue discussions regarding goals of care - rehab/PT - d/c planning
[2018-10-16 13:36] VITALS: BP 116/69; PULSE 105; TEMP 98.1
--- NOTE | 2018-10-16 14:11 | PN ---
Progress Note (short form) - Note Progress Note: PATIENT IS BEING TRANSFERRED TODAY TO [facility] ALL FORMS COMPLETED ALL QUESTIONS ANSWERED Problem List - Problems (1) COPD (chronic obstructive pulmonary disease) Code(s): J44.9 - CHRONIC OBSTRUCTIVE PULMONARY DISEASE, UNSPECIFIED (2) Diabetes Code(s): E11.9 - TYPE 2 DIABETES MELLITUS WITHOUT COMPLICATIONS (3) Metastatic lung cancer (metastasis from lung to other site) Code(s): C34.90 - MALIGNANT NEOPLASM OF UNSP PART OF UNSP BRONCHUS OR LUNG (4) SCC (squamous cell carcinoma of lung) Code(s): C34.90 - MALIGNANT NEOPLASM OF UNSP PART OF UNSP BRONCHUS OR LUNG
== END 2018-10-16 14:52 | DRG 180 ==
LOC: JER 07:49 → JERBED 10:22 → J5S 20:52 → J7W 09-29 21:58
PROVIDERS: ADMIT Family Medicine; ATTEND Family Medicine
DX: C34.90 Malignant neoplasm of unspecified part of unspecified bronchus or lung (principal); J96.21 Acute and chronic respiratory failure with hypoxia; J44.1 Chronic obstructive pulmonary disease with (acute) exacerbation; N17.9 Acute kidney failure, unspecified; R60.0 Localized edema; E11.9 Type 2 diabetes mellitus without complications; I10 Essential (primary) hypertension; F41.9 Anxiety disorder, unspecified; R11.2 Nausea with vomiting, unspecified; R19.7 Diarrhea, unspecified; Z99.81 Dependence on supplemental oxygen; R07.89 Other chest pain; M06.9 Rheumatoid arthritis, unspecified; D64.9 Anemia, unspecified; K21.9 Gastro-esophageal reflux disease without esophagitis; R53.1 Weakness; E66.9 Obesity, unspecified; Z68.29 Body mass index [BMI] 29.0-29.9, adult
CPT/HCPCS: 36415; 71045-TC-FY; 76700-TC; 80048; 80053; 81003; 82803; 83735; 83880; 84100; 84484; 85025; 85027; 85610; 85730; 93005; 93010; 94640; 97116-GP; 97162-GP; 99285-25; J1644; J2997; Q0162

== ENCOUNTER 2018-10-24 05:36 | Day surgery (SDC) | payer OTHER | END 2018-10-24 13:00 | disposition still patient (30) | LOC: JONCCHEMO 05:36 → J7W 09:17 → JONCCHEMO 13:00 ==

== ENCOUNTER 2018-10-24 13:03 | Inpatient (IN) | payer OTHER ==
[2018-10-24] MEDS ORDERED: ALBUTEROL SO4 2.5/IPRATROPIUM 0.5 INH SOL 3 ML VIAL.NEB. NEB ONE ×2 (13:24→14:47)
--- NOTE | 2018-10-24 13:53 | PDOC ---
History of Present Illness - General Chief Complaint: Shortness of Breath Stated Complaint: SOB Time Seen by Provider: 10/24/18 13:19 History Source: Patient Exam Limitations: No Limitations - History of Present Illness Initial Comments: 10/24/18 13:37 73 yo female pmh active stage 4 lung ca sp R upper lobectomy currently on immunotherapy (1X per month as per Dr. Paige, last treatment today) htn, ra, copd, with recent admission for acute on chronic respiratory failure (DC on ) presents from [facility] for SOB. Pt states she was at her appointment for immunotherapy with Dr. Camarillo today and after treatment was instructed to head to the ER for admission for SOB. Pt admits to 2 days of worsening SOB especially with laying flat and bilateral lower limb edema. Pt did not take lasix today (40 mg daily home dose). Denies CP, palpitations, hemoptysis, F/C/N/V, calf tenderness/leg pain, changes in bowel or bladder habits. Past History - Past Medical History Allergies/Adverse Reactions: Allergies Allergy/AdvReac Type Severity Reaction Status Date / Time aspirin AdvReac Mild Verified 10/24/18 13:05 Home Medications: Ambulatory Orders Alprazolam [Xanax] 0.25 mg PO DAILY 06/15/18 Losartan Potassium [Cozaar -] 50 mg PO DAILY 06/15/18 Pantoprazole Sodium [Protonix -] 40 mg PO DAILY 06/15/18 Zolpidem Tartrate [Ambien] 10 mg PO DAILY 06/15/18 Acetaminophen [Tylenol .Extra-Strength -] 500 mg PO Q6H PRN tablet 06/19/18 Atovaquone [Mepron Oral Solution -] 1,500 mg PO DAILY@0800 #1 bottle 06/19/18 Albuterol Sulfate Inhaler - [Ventolin HFA Inhaler -] 2 puff IH Q6H PRN inhaler 06/25/18 Amlodipine Besylate [Norvasc -] 5 mg PO DAILY tablet 06/25/18 Leflunomide [Arava -] 20 mg PO DAILY #60 tablet 06/25/18 Sulfasalazine [Azulfidine En-Tabs -] 1,000 mg PO BID #120 tablet. 06/25/18 traMADol HCL [Ultram -] 50 mg PO Q8H PRN tablet MDD 3 06/25/18 Furosemide [Lasix -] 20 mg PO DAILY #30 tablet 08/29/18 predniSONE [Deltasone -] 20 mg PO DAILY #14 tablet 09/20/18 Albuterol 0.083% Nebulizer Yudy [Ventolin 0.083% Nebulizer Soln -] 1 amp NEB RQID amp 09/24/18 Guaifenesin [Robitussin -] 10 ml PO Q6H PRN cup 09/24/18 Acetylcysteine Po/INH 20% [Mucomyst 20 Oral / INH Use Only*] 200 mg NEB RQID vial 10/03/18 Heparin - 5,000 unit SQ BID vial 10/03/18 Selin-Cath Flush [Selin-Cath Flush -] 10 ml IVPUSH PRN PRN ml 10/03/18 Buspirone HCl [Buspar -] 5 mg PO BID tablet 10/10/18 Anemia: No Asthma: No Cancer: Yes (lung) Cardiac Disorders: No CVA: No COPD: Yes (copd) CHF: No Dementia: No Diabetes: No (BORDERLINE) GI Disorders: Yes Disorders: No HTN: Yes Hypercholesterolemia: No Liver Disease: No Psychiatric Problems: Yes (depression) Seizures: No Thyroid Disease: No Lung CA: Yes - Surgical History Abdominal Surgery: No Appendectomy: No Cardiac Surgery: No Cholecystectomy: No Lung Surgery: Yes (right lobectomy 2014) Neurologic Surgery: No Orthopedic Surgery: No - Immunization History Immunization Up to Date: Yes - Suicide/Smoking/Psychosocial Hx Smoking Status: Yes Smoking History: Former smoker Have you smoked in the past 12 months: No Number of Cigarettes Smoked Daily: 10 If you are a former smoker, when did you quit?: 12/16/14 Information on smoking cessation initiated: No 'Breaking Loose' booklet given: 08/24/15 Hx Alcohol Use: No Drug/Substance Use Hx: No Substance Use Type: None Hx Substance Use Treatment: No Review of Systems - Review of Systems Constitutional: Yes: See HPI HEENTM: Yes: See HPI Respiratory: Yes: See HPI Cardiac (ROS): Yes: See HPI ABD/GI: Yes: See HPI : Yes: See HPI Musculoskeletal: Yes: See HPI Integumentary: Yes: See HPI Neurological: Yes: See HPI *Physical Exam - Vital Signs Last Vital Signs Temp Pulse Resp BP Pulse Ox 98.2 F 132 H 24 H 129/79 96 10/24/18 13:06 10/24/18 13:06 10/24/18 13:06 10/24/18 13:06 10/24/18 13:06 - Physical Exam General Appearance: Yes: Nourished, Appropriately Dressed. No: Apparent Distress HEENT: positive: EOMI, CHERELLE Neck: positive: Supple. negative: Carotid bruit Respiratory/Chest: positive: Rales. negative: Respiratory Distress, Accessory Muscle Use, Crackles, Rhonchi, Stridor, Wheezing Cardiovascular: positive: Regular Rhythm, S1, S2, Edema, Tachycardia. negative : JVD, Murmur Vascular Pulses: Dorsalis-Pedis (R): 2+, Doralis-Pedis (L): 2+ Gastrointestinal/Abdominal: positive: Flat, Soft. negative: Pulsatile Mass, Distended, Guarding, Rebound, Tenderness Musculoskeletal: negative: CVA Tenderness Extremity: positive: Normal Capillary Refill, Normal Inspection Integumentary: positive: Normal Color, Dry, Warm Neurologic: positive: Fully Oriented, Alert, Normal Mood/Affect, Normal Response , Motor Strength 06/17 ED Treatment Course - LABORATORY CBC & Chemistry Diagram: 10/26/18 09:25 10/26/18 09:25 Medical Decision Making - Medical Decision Making 73 yo female pmh active stage 4 lung ca sp R upper lobectomy currently on immunotherapy (1X per month as per Dr. Paige, last treatment today) htn, ra, copd, with recent admission for acute on chronic respiratory failure (DC on ) presents from [facility] for SOB. Pt states she was at her appointment for immunotherapy with Dr. Camarillo today and after treatment was instructed to head to the ER for admission for SOB. Pt admits to 2 days of worsening SOB especially with laying flat and bilateral lower limb edema. Pt did not take lasix today (40 mg daily home dose). Denies CP, palpitations, hemoptysis, F/C/N/V, calf tenderness/leg pain, changes in bowel or bladder habits. vitals show tachy with elevated RR Trops elevated 0.43, discussed case with Dr. Lopez who states lasix, repeat trop and it is likely demand ischemia similar to past elevated trop No ischemic changes on EKG 10/24/18 15:59 discussed case with [employer] Leonel Jacob who agrees to have pt admitted to Tele for COPD/CHF exac with likely demand ischemia *DC/Admit/Observation/Transfer Diagnosis at time of Disposition: COPD exacerbation, Elevated troponin - Discharge Dispostion Condition at time of disposition: Stable Decision to Admit order: Yes - Referrals - Patient Instructions - Post Discharge Activity
[2018-10-24 14:18] LABS: VENOUS PC02 39.4 mmHg (38-52); VENOUS PH 7.45 (7.31-7.41); VENOUS PO2 < 49 mmHg (28-48)
[2018-10-24 14:25] LABS: BASO % 0.3 % (0-2.0); EOS % 0.2 % (0-4.5); HEMATOCRIT 25.6 % (32.4-45.2); HEMOGLOBIN 8.1 GM/dL (10.7-15.3); LYMPH % 5.3 % (8-40); MCH 29.4 pg (25.7-33.7); MCHC 31.8 g/dl (32.0-36.0); MEAN CELL VOLUME 92.5 fl (80-96); MEAN PLT VOLUME 7.2 fl (7.5-11.1); MONO % 4.9 % (3.8-10.2); NEUT % 89.3 % (42.8-82.8); PLATELET COUNT 279 K/MM3 (134-434); RBC 2.77 M/mm3 (3.60-5.2); RDW 17.9 % (11.6-15.6); WHITE BLOOD COUNT 11.3 K/mm3 (4.0-10.0)
[2018-10-24 14:39] LABS: INR 1.34 (0.83-1.09); PROTHROMBIN TIME (PATIENT) 15.9 SEC (9.7-13.0)
--- NOTE | 2018-10-24 14:40 | EKG ---
Test Reason : Blood Pressure : / mmHG Vent. Rate : 124 BPM Atrial Rate : 124 BPM P-R Int : 130 ms QRS Dur : 076 ms QT Int : 328 ms P-R-T Axes : 037 047 098 degrees QTc Int : 471 ms SINUS TACHYCARDIA WITH OCCASIONAL PREMATURE VENTRICULAR COMPLEXES OTHERWISE NORMAL ECG WHEN COMPARED WITH ECG OF 06-OCT-2018 15:36, NO SIGNIFICANT CHANGE WAS FOUND Confirmed by CARLOS FERRIS MD ([id number]) on 10/24/2018 2:39:53 PM Referred By: Confirmed By:CARLOS FERRIS MD
[2018-10-24 14:52] LABS: ALBUMIN 2.6 g/dl (3.4-5.0); BILIRUBIN,TOTAL 0.9 mg/dL (0.2-1); BLOOD UREA NITROGEN 19.1 mg/dL (7-18); CALCIUM 8.8 mg/dL (8.5-10.1); CREATININE 1.3 mg/dL (0.55-1.3); N-TERMINAL BNP 4210.5 pg/ml (5-125); POTASSIUM 3.9 mmol/L (3.5-5.1); TOT PROT 5.5 g/dl (6.4-8.2)
[2018-10-24] MEDS ORDERED: FUROSEMIDE 40 MG TABLET (FP) PO ONE (15:22)
[2018-10-24] MEDS ORDERED: FUROSEMIDE 40 MG TABLET (FP) ONE (15:43)
--- NOTE | 2018-10-24 17:08 | HP ---
Admitting History and Physical - Primary Care Physician PCP: Juventino Ruby I - Admission Chief Complaint: SOB History of Present Illness: Patient is a 73 y/o female with past medical history of Lung CA stage 4 (on Immunotherapy), HTN, RA, COPD. Patient states she has been experiencing worsening SOB for about 1 week. She presented to [facility] today for her immunotherapy appointment today where she was seen by Dr. Camarillo and he stated she should go down to ER for further evaluation. Denies chest pain, palpitations, or dizziness with SOB. History Source: Patient Limitations to Obtaining History: No Limitations - Past Medical History Cardiovascular: Yes: HTN Pulmonary: Yes: Bronchitis, Cancer, COPD, Pneumonia, Other (Lung cancer --stage IIB . squamous cell). No: Asthma, Previously Intubated, Pulmonary Embolus, Pulmonary Fibrosis, Sleep Apnea Rheumatology: Yes: Other (rheumatoid arthritis) - Smoking History Smoking history: Former smoker Have you smoked in the past 12 months: No Aproximately how many cigarettes per day: 10 If you are a former smoker, when did you quit?: 12/16/14 - Alcohol/Substance Use Hx Alcohol Use: No - Social History Usual Living Arrangement: Yes: Senior Living ADL: Independent History of Recent Travel: No Home Medications - Allergies Allergies/Adverse Reactions: Allergies Allergy/AdvReac Type Severity Reaction Status Date / Time aspirin AdvReac Mild Verified 10/24/18 13:05 - Home Medications Home Medications: Ambulatory Orders Alprazolam [Xanax] 0.25 mg PO DAILY 06/15/18 Losartan Potassium [Cozaar -] 50 mg PO DAILY 06/15/18 Pantoprazole Sodium [Protonix -] 40 mg PO DAILY 06/15/18 Zolpidem Tartrate [Ambien] 10 mg PO DAILY 06/15/18 Acetaminophen [Tylenol .Extra-Strength -] 500 mg PO Q6H PRN tablet 06/19/18 Atovaquone [Mepron Oral Solution -] 1,500 mg PO DAILY@0800 #1 bottle 06/19/18 Albuterol Sulfate Inhaler - [Ventolin HFA Inhaler -] 2 puff IH Q6H PRN inhaler 06/25/18 Amlodipine Besylate [Norvasc -] 5 mg PO DAILY tablet 06/25/18 Leflunomide [Arava -] 20 mg PO DAILY #60 tablet 06/25/18 Sulfasalazine [Azulfidine En-Tabs -] 1,000 mg PO BID #120 tablet. 06/25/18 traMADol HCL [Ultram -] 50 mg PO Q8H PRN tablet MDD 3 06/25/18 Furosemide [Lasix -] 20 mg PO DAILY #30 tablet 08/29/18 predniSONE [Deltasone -] 20 mg PO DAILY #14 tablet 09/20/18 Albuterol 0.083% Nebulizer Yudy [Ventolin 0.083% Nebulizer Soln -] 1 amp NEB RQID amp 09/24/18 Guaifenesin [Robitussin -] 10 ml PO Q6H PRN cup 09/24/18 Acetylcysteine Po/INH 20% [Mucomyst 20 Oral / INH Use Only*] 200 mg NEB RQID vial 10/03/18 Heparin - 5,000 unit SQ BID vial 10/03/18 Selin-Cath Flush [Selni-Cath Flush -] 10 ml IVPUSH PRN PRN ml 10/03/18 Buspirone HCl [Buspar -] 5 mg PO BID tablet 10/10/18 Review of Systems - Review of Systems Constitutional: reports: Weakness Eyes: reports: No Symptoms HENT: reports: No Symptoms Neck: reports: No Symptoms Cardiovascular: reports: Shortness of Breath Respiratory: reports: Cough, SOB, SOB on Exertion Gastrointestinal: reports: No Symptoms Genitourinary: reports: No Symptoms Breasts: reports: No Symptoms Reported Musculoskeletal: reports: No Symptoms Integumentary: reports: No Symptoms Neurological: reports: No Symptoms Endocrine: reports: No Symptoms Hematology/Lymphatic: reports: No Symptoms Psychiatric: reports: No Symptoms Physical Examination Vital Signs: Vital Signs Temperature 98.2 F 10/24/18 13:06 Pulse Rate 108 H 10/24/18 15:12 Respiratory Rate 30 H 10/24/18 15:12 Blood Pressure 102/79 10/24/18 15:12 O2 Sat by Pulse Oximetry (%) 94 L 10/24/18 15:12 Constitutional: Yes: Anxious, Mild Distress Eyes: Yes: Conjunctiva Clear HENT: Yes: Atraumatic Neck: Yes: Supple Cardiovascular: Yes: Tachycardia Respiratory: Yes: Diminished, On Nasal O2, Tachypnea Gastrointestinal: Yes: Normal Bowel Sounds, Soft Musculoskeletal: Yes: Muscle Weakness Extremities: Yes: WNL Edema: Yes Edema: LLE: 1+, RLE: 1+ Neurological: Yes: Alert, Oriented Psychiatric: Yes: Alert, Oriented Labs: CBC, BMP 10/24/18 13:51 10/24/18 13:48 Imaging - Results Chest X-ray: Report Reviewed EKG: Report Reviewed Problem List - Problems (1) COPD exacerbation Assessment/Plan: -Pulm consult -bronchodilators -prednisone -O2 via NC -keep SpO2 >90% Code(s): J44.1 - CHRONIC OBSTRUCTIVE PULMONARY DISEASE W (ACUTE) EXACERBATION (2) Elevated troponin Assessment/Plan: -Trop 0.43 -Cardiology consult -repeat trop and monitor for downtrend -tele monitoring Code(s): R74.8 - ABNORMAL LEVELS OF OTHER SERUM ENZYMES (3) Acute on chronic respiratory failure with hypoxemia Assessment/Plan: -Pulm consult -bronchodilators -prednisone -O2 via NC -keep SpO2 >90% -CXT shows multiple lung masses which appear stable Code(s): J96.21 - ACUTE AND CHRONIC RESPIRATORY FAILURE WITH HYPOXIA (4) Diabetes Assessment/Plan: -BG ACHS -ISS -diabetic diet -HgA1c Code(s): E11.9 - TYPE 2 DIABETES MELLITUS WITHOUT COMPLICATIONS (5) GERD (gastroesophageal reflux disease) Assessment/Plan: -Pantoprazole Code(s): K21.9 - GASTRO-ESOPHAGEAL REFLUX DISEASE WITHOUT ESOPHAGITIS (6) Stage 4 lung cancer Assessment/Plan: -Oncology on board -CXR shows multiple lung masses Code(s): C34.90 - MALIGNANT NEOPLASM OF UNSP PART OF UNSP BRONCHUS OR LUNG (7) HTN (hypertension) Assessment/Plan: -Norvasc, Losartan -low Na diet Code(s): I10 - ESSENTIAL (PRIMARY) HYPERTENSION Assessment/Plan see problem list dvt ppx
[2018-10-24] MEDS ORDERED: traMADol HCL 50 MG TABLET PO PRN (17:21)
[2018-10-24] MEDS ORDERED: ACETAMINOPHEN 500 MG TABLET (FP) PO PRN (17:21)
--- NOTE | 2018-10-24 17:23 | PDOC ---
Documentation entered by Jaydon Carl SCRIBE, acting as scribe for Omaira Cross MD. Omaira Cross MD: This documentation has been prepared by the Siddhartha villalba Daniel, SCRIBE, under my direction and personally reviewed by me in its entirety. I confirm that the documentation accurately reflects all work, treatment, procedures, and medical decision making performed by me. Attending Attestation - Resident Resident Name: Amanuel Gregg - ED Attending Attestation I have performed the following: I have examined & evaluated the patient, The case was reviewed & discussed with the resident, I agree w/resident's findings & plan, Exceptions are as noted - HPI HPI: 10/24/18 14:11 The patient is a 73 year old with a past medical history of stage 4 lung cancer (s/p right upper lobe removal, currently on immunotherapy) and COPD (5L at home ) here today for evaluation of shortness of breath. The patient was recently discharged to the [facility] on 10/16/[address] Camarillo when she was sent in. She notes that she has had worsening shortness of breath and orthopnea over the past few days. Patient denies headache, lightheadedness. Denies fever, chills. Denies chest pain. Allergies: aspirin PCP: Juventino Ruby Oncologist: Humza Camarillo - Physicial Exam PE: 10/24/18 16:10 GENERAL: The patient is in no acute distress. HEAD: Normal with no signs of trauma. EYES: PERRLA, EOMI, sclera anicteric, conjunctiva clear. ENT: Ears normal, nares patent, oropharynx clear without exudates. Moist mucous membranes. NECK: Normal range of motion, supple without lymphadenopathy, JVD, or masses. LUNGS: +tachypnic. +diffusely rhonchorous. +accessory muscle use. Breath sounds equal. No wheezes, and no crackles. Speaking in complete sentences. HEART: +tachycardic. Regular rhythm, normal S1 and S2 without murmur, rub or gallop. ABDOMEN: Soft, nontender, normoactive bowel sounds. No guarding, no rebound. No masses palpable. EXTREMITIES: +bilateral 2+ lower extremity edema. Normal range of motion. No clubbing or cyanosis. No erythema, or tenderness. NEUROLOGICAL: Cranial nerves II through XII grossly intact. Normal speech. No focal neurological deficits. MUSCULOSKELETAL: Back non-tender to palpation, no CVA tenderness SKIN: Warm, Dry, normal turgor, no rashes or lesions noted. - Medical Decision Making 10/24/18 16:16 Ms Fulton is a 73 y/o lady with Stage IV NSCLC (s/p Right Upper Lobectomy) on PD- 1 checkpoint inhibitor therapy. She presents with a complaint of shortness of breath She has a h/o COPD and CHF (refusing to take Lasix) No fevers or chills No chest pain NO abdominal pain No diarrhea 10/24/18 17:20 10/24/18 17:21 Laboratory Tests 10/24/18 10/24/18 10/24/18 09:50 09:50 13:48 WBC 10.2 H Hgb 8.4 L Hct 25.6 L Plt Count 282 D INR BUN 18.3 H 19.1 H Creatinine 1.2 1.3 Creatine Kinase Troponin I B-Natriuretic Peptide 4210.5 H 10/24/18 10/24/18 10/24/18 13:51 13:51 13:51 WBC 11.3 H Hgb 8.1 L Hct 25.6 L Plt Count 279 INR 1.34 H BUN Creatinine Creatine Kinase 765 H Troponin I 0.43 H B-Natriuretic Peptide Cardiology consulted Dr. Jean Baptiste has seen this patient in the ER Will admit to tele Trop likely demand Pt was seen for similar symptoms, CTA performed
[2018-10-24] MEDS ORDERED: FUROSEMIDE 40 MG/4 ML INJECTABLE VIAL ONE (20:20)
[2018-10-24] MEDS ORDERED: FUROSEMIDE 40 MG/4 ML INJECTABLE VIAL IVPUSH ONE (20:26)
[2018-10-24] MEDS ORDERED: methylPREDNISolone NA SUCC 125 MG/2 ML VIAL IVPUSH ONE (20:26)
--- NOTE | 2018-10-24 20:50 | HOSP ---
Subjective - Review of Symptoms Events since last encounter: 73 y/o female with past medical history of Lung CA stage 4 (on Immunotherapy), HTN, RA, COPD. Patient states she has been experiencing worsening SOB for about 1 week. RN called hospitalist as patient noted with hyperventilating, tachycardiac, SOB and perfuse sweating when ambulating to bathroom, vitals taken Hr: 149, O2 925 on non-breather, Bp: 148/111 and temp 98.4. In Ed was given po 80 mg lasix, nebs treatment. Upon exam noted with right side fine crackles, wheezing b/l - given 20 mg of IV lasix - Solu-medrol 125 mg IV push General: No: Chills, Night Sweats, Fatigue, Malaise, Appetite, Other HEENT: No: Head Aches, Visual Changes, Eye Pain, Ear Pain, Dysphasia, Sinus Congestion, Post Nasal Drip, Sore Throat, Other Pulmonary: Yes: Dyspnea Cardiovascular: No: Chest Pain, Palpitations, Orthopnea, Paroxysmal Noc. Dyspnea , Edema, Light Headedness, Other Gastrointestinal: No: Nausea, NOSYM, Vomiting, Abdominal Pain, Diarrhea, Constipation, Melena, Hematochezia, Other Musculoskeletal: No: No Symptoms, Back Pain, Crepitus, Decreased ROM, Extremity Pain, Joint Pain, Joint Swelling, Muscle Pain, Muscle Cramps, Muscle Weakness, Other Neurological: No: Weakness, Numbness, Incoordination, Change in speech, Confusion, Seizures, Other Physical Examination Vital Signs: Vital Signs Temperature 98.2 F 10/24/18 13:06 Pulse Rate 117 H 10/24/18 18:39 Respiratory Rate 28 H 10/24/18 18:39 Blood Pressure 111/69 10/24/18 18:39 O2 Sat by Pulse Oximetry (%) 94 L 10/24/18 18:39 Constitutional: Yes: Anxious, Diaphoresis, Mild Distress Eyes: Yes: Conjunctiva Clear, EOM Intact HENT: Yes: Atraumatic, Normocephalic Neck: Yes: Supple, Trachea Midline Cardiovascular: Yes: Tachycardia, S1, S2 Respiratory: Yes: Rhonchi, SOB, Wheezes Gastrointestinal: Yes: Normal Bowel Sounds, Soft Labs: CBC, BMP 10/24/18 13:51 10/24/18 13:48 Hospitalist Encounter Assessment: #COPD exacerbation #CHF - given 20 mg of IV lasix - Solu-medrol 125 mg IV push - nebs given x1 - continue with nebulizer - continue with o2 via mask for now then switch to NC as tolerated -Keep Spo2 above 88% - consider increasing dose of steroids, lasix in AM
[2018-10-24] MEDS: ALBUTEROL SO4 0.083% IH SOL 2.5 MG/3 ML VIAL.NEB. NEB SCH (21:30)
[2018-10-24] MEDS ORDERED: HEPARIN NA (PORCINE) 5,000 UNITS/ML 1ML VIAL SQ SCH (22:00)
[2018-10-24] MEDS ORDERED: ALPRAZolam 0.25 MG TABLET PO SCH (22:00)
[2018-10-24 22:07] VITALS: BMI 29.5
[2018-10-24] MEDS: HEPARIN NA (PORCINE) 5,000 UNITS/ML 1ML VIAL SQ SCH (22:34)
[2018-10-24] MEDS: busPIRone HCL 5 MG TABLET PO SCH (22:36)
[2018-10-24] MEDS: INSULIN SLIDING SCALE (NOVOLOG) 1 VIAL SQ SCH (22:49)
[2018-10-25] MEDS: ZOLPIDEM TARTRATE 5 MG TABLET PO SCH (01:43)
[2018-10-25] MEDS: INSULIN SLIDING SCALE (NOVOLOG) 1 VIAL SQ SCH ×4 (06:37→22:50)
[2018-10-25 07:27] LABS: ALBUMIN 2.6 g/dl (3.4-5.0); BILIRUBIN,TOTAL 0.7 mg/dL (0.2-1); BLOOD UREA NITROGEN 24.8 mg/dL (7-18); CALCIUM 9.1 mg/dL (8.5-10.1); CREATININE 1.3 mg/dL (0.55-1.3); MAGNESIUM 1.9 mg/dL (1.8-2.4); PHOSPHOROUS 4.4 mg/dL (2.5-4.9); POTASSIUM 4.2 mmol/L (3.5-5.1); TOT PROT 5.4 g/dl (6.4-8.2)
[2018-10-25 07:43] LABS: BASO % 0.1 % (0-2.0); HEMATOCRIT 24.1 % (32.4-45.2); HEMOGLOBIN 7.8 GM/dL (10.7-15.3); LYMPH % 7.9 % (8-40); MCH 29.7 pg (25.7-33.7); MCHC 32.3 g/dl (32.0-36.0); MEAN CELL VOLUME 92.1 fl (80-96); MEAN PLT VOLUME 7.8 fl (7.5-11.1); MONO % 4.8 % (3.8-10.2); NEUT % 87.2 % (42.8-82.8); PLATELET COUNT 273 K/MM3 (134-434); RBC 2.61 M/mm3 (3.60-5.2); RDW 17.7 % (11.6-15.6); WHITE BLOOD COUNT 7.8 K/mm3 (4.0-10.0)
[2018-10-25] MEDS: ALBUTEROL SO4 0.083% IH SOL 2.5 MG/3 ML VIAL.NEB. NEB SCH ×4 (08:02→20:55)
--- NOTE | 2018-10-25 08:20 | CONSULT ---
Consultation: Hematology/Oncology Consultation REQUESTING PROVIDER: CONSULT REQUEST: We have been asked to medically evaluate this patient for ( specify). 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 Has recently been hospitalized before within the past 3 months for similar symptoms. Reports that she currently feels better than when she came in, but still gets short of breath when she raises up from a sitting position. Denies chest pain, nausea, vomiting, diarrhea, or peripheral edema. Allergies: aspirin Smoking History: former smoker Alcohol History: none Family History: grandmother with leukemia, aunt with breast CA Surgical History: Oncologic History -05/05/2015: diagnosis of squamous cell lung cancer -s/p surgery, adjuvant carbo/taxol 3 cycles -s/p mediastinal recurrence -> taxol/RT therapy --> pneumonitis post taxol/RT -found PDL1 20% positivity -stable chest CT 05/30/17 -R neck adenopathy worsened --> poorly differentiated carcinoma with 1% PDL activity -S/P RT to right neck adenopathy -s/p gemzar 2 cycles --> progressive disease of lungs -06/04/2021: cycle 1 of nivolumab, completed 7 cycles REVIEW OF SYSTEMS: CONSTITUTIONAL: Absent: fever, chills, diaphoresis, generalized weakness, malaise, loss of appetite, weight change HEENT: Absent: rhinorrhea, nasal congestion, throat pain, throat swelling, difficulty swallowing, mouth swelling, ear pain, eye pain, visual changes CARDIOVASCULAR: Absent: chest pain, syncope, palpitations, irregular heart rate, lightheadedness , peripheral edema RESPIRATORY: shortness of breath Absent: cough, dyspnea with exertion, orthopnea, wheezing, stridor, hemoptysis GASTROINTESTINAL: Absent: abdominal pain, abdominal distension, nausea, vomiting, diarrhea, constipation, melena, hematochezia GENITOURINARY: Absent: dysuria, frequency, urgency, hesitancy, hematuria, flank pain, genital pain MUSCULOSKELETAL: Absent: myalgia, arthralgia, joint swelling, back pain, neck pain SKIN: Absent: rash, itching, pallor HEMATOLOGIC/IMMUNOLOGIC: Absent: easy bleeding, easy bruising, lymphadenopathy, frequent infections ENDOCRINE: Absent: unexplained weight gain, unexplained weight loss, heat intolerance, cold intolerance NEUROLOGIC: Absent: headache, focal weakness or paresthesias, dizziness, unsteady gait, seizure, mental status changes, bladder or bowel incontinence PSYCHIATRIC: Absent: anxiety, depression, suicidal or homicidal ideation, hallucinations. PHYSICAL EXAMINATION Vital Signs - 24 hr 10/24/18 10/24/18 10/24/18 13:06 15:12 18:39 Temperature 98.2 F Pulse Rate 132 H Pulse Rate [ 108 H 117 H Apical] Respiratory 24 H 30 H 28 H Rate Blood Pressure 129/79 Blood Pressure 102/79 111/69 [Left Arm] O2 Sat by Pulse 96 94 L 94 L Oximetry (%) 10/24/18 10/24/18 10/24/18 20:15 20:45 21:00 Temperature 98.4 F Pulse Rate 149 H 120 H Pulse Rate [ Apical] Respiratory 36 H 25 H Rate Blood Pressure 148/111 H 113/79 Blood Pressure [Left Arm] O2 Sat by Pulse 92 L Oximetry (%) 10/25/18 10/25/18 10/25/18 02:00 06:00 08:19 Temperature 97.5 F L 98.3 F Pulse Rate 106 H 105 H Pulse Rate [ Apical] Respiratory 20 20 20 Rate Blood Pressure 110/77 134/86 Blood Pressure [Left Arm] O2 Sat by Pulse 93 L Oximetry (%) GENERAL: A&Ox3, no acute distress EYES: PERRLA, EOMI ENT: Moist mucus membranes NECK: No JVD LUNGS: CTA, no wheezes CHEST: R sided port in place BREAST: No lesions or masses noted HEART: tachycardic, no murmurs ABDOMEN: Obese, soft, nontender, BS present MUSCULOSKELETAL: No CVA Tenderness EXTREMITIES: 2+ pulses, no edema. NEUROLOGICAL: Cranial nerves II-XII intact. Laboratory Results - last 24 hr 10/24/18 10/24/18 10/24/18 13:48 13:51 13:51 WBC 11.3 H RBC 2.77 L Hgb 8.1 L Hct 25.6 L MCV 92.5 MCH 29.4 MCHC 31.8 L RDW 17.9 H Plt Count 279 MPV 7.2 L Absolute Neuts (auto) 10.1 H Neutrophils % 89.3 H Lymphocytes % 5.3 L D Monocytes % 4.9 Eosinophils % 0.2 Basophils % 0.3 Nucleated RBC % 0 PT with INR INR VBG pH POC VBG pCO2 POC VBG pO2 VBG HCO3 VBG O2 Sat (Marie) VBG Base Excess Sodium 140 Potassium 3.9 Chloride 104 Carbon Dioxide 27 Anion Gap 10 BUN 19.1 H Creatinine 1.3 Est GFR (CKD-EPI)AfAm 47.46 Est GFR (CKD-EPI)NonAf 40.95 POC Glucometer Random Glucose 166 H Calcium 8.8 Phosphorus Magnesium Total Bilirubin 0.9 AST 59 H ALT 12 L Alkaline Phosphatase 77 Creatine Kinase 765 H Creatine Kinase Index 0.8 CK-MB (CK-2) 6.4 H Troponin I 0.43 H B-Natriuretic Peptide 4210.5 H Total Protein 5.5 L Albumin 2.6 L Triglycerides Cholesterol Total LDL Cholesterol HDL Cholesterol 10/24/18 10/24/18 10/24/18 13:51 13:51 13:51 WBC RBC Hgb Hct MCV MCH MCHC RDW Plt Count MPV Absolute Neuts (auto) Neutrophils % Lymphocytes % Monocytes % Eosinophils % Basophils % Nucleated RBC % PT with INR 15.90 H INR 1.34 H VBG pH 7.45 H POC VBG pCO2 39.4 POC VBG pO2 < 49 H VBG HCO3 26.9 VBG O2 Sat (Marie) 44.2 L VBG Base Excess 3.1 H Sodium Potassium Chloride Carbon Dioxide Anion Gap BUN Creatinine Est GFR (CKD-EPI)AfAm Est GFR (CKD-EPI)NonAf POC Glucometer Random Glucose Calcium Phosphorus Magnesium Total Bilirubin AST ALT Alkaline Phosphatase Creatine Kinase Creatine Kinase Index CK-MB (CK-2) Troponin I B-Natriuretic Peptide Cancelled Total Protein Albumin Triglycerides Cholesterol Total LDL Cholesterol HDL Cholesterol 10/24/18 10/24/18 10/25/18 21:00 22:38 05:44 WBC RBC Hgb Hct MCV MCH MCHC RDW Plt Count MPV Absolute Neuts (auto) Neutrophils % Lymphocytes % Monocytes % Eosinophils % Basophils % Nucleated RBC % PT with INR INR VBG pH POC VBG pCO2 POC VBG pO2 VBG HCO3 VBG O2 Sat (Marie) VBG Base Excess Sodium Potassium Chloride Carbon Dioxide Anion Gap BUN Creatinine Est GFR (CKD-EPI)AfAm Est GFR (CKD-EPI)NonAf POC Glucometer 141 133 Random Glucose Calcium Phosphorus Magnesium Total Bilirubin AST ALT Alkaline Phosphatase Creatine Kinase Creatine Kinase Index CK-MB (CK-2) Troponin I 0.40 H B-Natriuretic Peptide Total Protein Albumin Triglycerides Cholesterol Total LDL Cholesterol HDL Cholesterol 10/25/18 05:45 WBC RBC Hgb Hct MCV MCH MCHC RDW Plt Count MPV Absolute Neuts (auto) Neutrophils % Lymphocytes % Monocytes % Eosinophils % Basophils % Nucleated RBC % PT with INR INR VBG pH POC VBG pCO2 POC VBG pO2 VBG HCO3 VBG O2 Sat (Marie) VBG Base Excess Sodium 140 Potassium 4.2 Chloride 103 Carbon Dioxide 29 Anion Gap 8 BUN 24.8 H Creatinine 1.3 Est GFR (CKD-EPI)AfAm 47.46 Est GFR (CKD-EPI)NonAf 40.95 POC Glucometer Random Glucose 122 H Calcium 9.1 Phosphorus 4.4 Magnesium 1.9 Total Bilirubin 0.7 AST 42 H ALT 14 Alkaline Phosphatase 72 Creatine Kinase 331 H Creatine Kinase Index 0.9 CK-MB (CK-2) 3.3 Troponin I 0.44 H B-Natriuretic Peptide Total Protein 5.4 L Albumin 2.6 L Triglycerides 148 Cholesterol 192 Total LDL Cholesterol 112 H HDL Cholesterol 55 Active Medications Generic Name Dose Route Start Last Admin Trade Name Freq PRN Reason Stop Dose Admin Acetaminophen 500 mg 10/24/18 17:21 Tylenol - PO Q6H PRN PAIN 6-10 Albuterol Sulfate 1 amp 10/24/18 20:00 10/25/18 08:02 Ventolin 0.083% Nebulizer Soln - NEB 1 amp RQID RICHARD Administration Alprazolam 0.25 mg 10/24/18 22:00 10/25/18 01:43 Xanax - PO 0.25 mg HS RICHARD Administration Amlodipine Besylate 5 mg 10/25/18 10:00 Norvasc - PO DAILY RICHARD Atovaquone 1,500 mg 10/25/18 08:00 Mepron - PO DAILY@0800 RICHARD Buspirone HCl 5 mg 10/24/18 22:00 10/24/18 22:36 Buspar - PO 5 mg BID RICHARD Administration Furosemide 20 mg 10/25/18 10:00 Lasix - PO DAILY [facility] Guaifenesin 10 ml 10/24/18 17:21 Robitussin - PO Q6H PRN COUGH Heparin Sodium (Porcine) 5,000 unit 10/24/18 22:00 10/24/18 22:34 Heparin - SQ 5,000 unit BID RICHARD Administration Insulin Aspart 1 vial 10/24/18 22:00 10/25/18 06:37 Novolog Vial Sliding Scale - SQ Not Given ACHS [facility] Protocol Leflunomide 20 mg 10/25/18 10:00 Arava - PO DAILY RICHARD Losartan Potassium 50 mg 10/25/18 10:00 Cozaar - PO DAILY RICHARD Pantoprazole Sodium 40 mg 10/25/18 10:00 Protonix - PO DAILY RICHARD Prednisone 20 mg 10/25/18 10:00 Deltasone - PO DAILY RICHARD Sulfasalazine 1,000 mg 10/24/18 22:00 10/24/18 22:35 Azulfidine En-Tabs - PO 1,000 mg BID RICHARD Administration Tramadol HCl 50 mg 10/24/18 17:21 Ultram - PO Q8H PRN PAIN LEVEL 1-5 Zolpidem Tartrate 5 mg 10/24/18 22:00 10/25/18 01:43 Ambien - PO 5 mg HS RICHARD Administration ASSESSMENT/PLAN: 73 year old female with a past medical history of stage IV squamous cell lung carcinoma on nivolumab, hypertension, rheumatoid arthritis, and COPD who presented to the hospital for 1 week of shortness of breath and admitted for acute on chronic respiratory failure secondary to COPD exacerbation. #COPD exacerbation #Stage 4 lung CA #Stage 4 Lung CA: squamous cell carcinoma on nivolumab therapy, relatively stable on nivo. Will likely restart therapy once inpatient treatment for acute lung issues is completed. #COPD exacerbation: continue management per primary, duonebs, steroids, lasix Ryan Shoemaker D.O., PGY3 Discussed with Dr. Camarillo Visit type - Emergency Visit Emergency Visit: No - New Patient This patient is new to me today: Yes Date on this admission: 10/25/18 - Critical Care Critical Care patient: No ATTENDING PHYSICIAN STATEMENT I saw and evaluated the patient. I reviewed the resident's note and discussed the case with the resident. I agree with the resident's findings and plan as documented. SUBJECTIVE: OBJECTIVE: ASSESSMENT AND PLAN:
[2018-10-25] MEDS ORDERED: PT OWN MED DRAWER 7, Y5N ONE ×3 (09:10→10:32)
[2018-10-25] MEDS: HEPARIN NA (PORCINE) 5,000 UNITS/ML 1ML VIAL SQ SCH ×3 (09:38→22:35)
[2018-10-25] MEDS: amLODIPine BESYLATE 5 MG TABLET (FP) PO SCH (09:38)
[2018-10-25] MEDS: PANTOPRAZOLE 40 MG TABLET (FP) PO SCH (09:39)
[2018-10-25] MEDS: LOSARTAN POTASSIUM 50 MG TABLET (FP) PO SCH (09:40)
[2018-10-25] MEDS: busPIRone HCL 5 MG TABLET PO SCH ×2 (09:41→22:30)
[2018-10-25] MEDS ORDERED: PATIENT'S OWN MEDICATION (NON-FORMULARY) (Zolpidem Tartrate [Ambien] 10 MG) PO SCH (10:00)
[2018-10-25] MEDS ORDERED: FUROSEMIDE 20 MG TABLET (FP) PO SCH (10:00)
[2018-10-25] MEDS ORDERED: predniSONE 20 MG TABLET (UD) PO SCH (10:00)
[2018-10-25] MEDS ORDERED: ALPRAZolam 0.25 MG TABLET PO SCH (10:00)
[2018-10-25] MEDS ORDERED: FUROSEMIDE 40 MG/4 ML INJECTABLE VIAL IVPUSH SCH (10:45)
[2018-10-25] MEDS ORDERED: methylPREDNISolone NA SUCC 40 MG/1 ML VIAL IVPUSH SCH (10:50)
[2018-10-25] MEDS: LEFLUNOMIDE 10 MG TABLET PO SCH (10:55)
[2018-10-25] MEDS: ATOVAQUONE 750 MG/5 ML (UNIT-DOSE PACKAGING) PO SCH (11:34)
[2018-10-25] MEDS ORDERED: FUROSEMIDE 20 MG TABLET (FP) PO ONE (12:32)
--- NOTE | 2018-10-25 12:32 | PN ---
Progress Note, Physician Chief Complaint: patient is very upset about and anxious about her breathing refusing iv lasix and iv medrol and will not take insulin as well rapid response event noted - Current Medication List Current Medications: Active Medications Acetaminophen (Tylenol -) 500 mg PO Q6H PRN PRN Reason: PAIN 6-10 Albuterol Sulfate (Ventolin 0.083% Nebulizer Soln -) 1 amp NEB RQID [facility] Last Admin: 10/25/18 12:11 Dose: 1 amp Alprazolam (Xanax -) 0.25 mg PO [facility] Last Admin: 10/25/18 01:43 Dose: 0.25 mg Amlodipine Besylate (Norvasc -) 5 mg PO DAILY [facility] Last Admin: 10/25/18 09:38 Dose: 5 mg Atovaquone (Mepron -) 1,500 mg PO DAILY@0800 [facility] Last Admin: 10/25/18 11:34 Dose: 1,500 mg Buspirone HCl (Buspar -) 5 mg PO BID [facility] Last Admin: 10/25/18 09:41 Dose: 5 mg Guaifenesin (Robitussin -) 10 ml PO Q6H PRN PRN Reason: COUGH Heparin Sodium (Porcine) (Heparin -) 5,000 unit SQ BID [facility] Last Admin: 10/25/18 09:38 Dose: 5,000 unit Insulin Aspart (Novolog Vial Sliding Scale -) 1 vial SQ [facility]; Protocol Last Admin: 10/25/18 11:46 Dose: Not Given Leflunomide (Arava -) 20 mg PO DAILY [facility] Last Admin: 10/25/18 10:55 Dose: 20 mg Losartan Potassium (Cozaar -) 50 mg PO DAILY [facility] Last Admin: 10/25/18 09:40 Dose: 50 mg Pantoprazole Sodium (Protonix -) 40 mg PO DAILY [facility] Last Admin: 10/25/18 09:39 Dose: 40 mg Sulfasalazine (Azulfidine En-Tabs -) 1,000 mg PO BID [facility] Last Admin: 10/25/18 09:37 Dose: 1,000 mg Tramadol HCl (Ultram -) 50 mg PO Q8H PRN PRN Reason: PAIN LEVEL 1-5 Zolpidem Tartrate (Ambien -) 5 mg PO [facility] Last Admin: 10/25/18 01:43 Dose: 5 mg - Objective Vital Signs: Vital Signs Temperature 98.4 F 10/25/18 10:00 Pulse Rate 125 H 10/25/18 10:00 Respiratory Rate 21 H 10/25/18 10:00 Blood Pressure 135/65 10/25/18 10:00 O2 Sat by Pulse Oximetry (%) 93 L 10/25/18 08:19 Constitutional: Yes: Anxious Neck: Yes: Trachea Midline Cardiovascular: Yes: Regular Rate and Rhythm, S1, S2 Respiratory: Yes: Diminished, On Nasal O2, Wheezes (scattered) Gastrointestinal: Yes: Normal Bowel Sounds, Soft Edema: Yes Neurological: Yes: Alert, Oriented Labs: CBC, BMP 10/25/18 05:45 10/25/18 05:45 INR, PTT INR 1.34 (0.83-1.09) H 10/24/18 13:51 Assessment/Plan shortness of breath in prednsione to 40mg daily nebulizer pulm consult inc lasix to 40mg po daily from 20mg oxygen metastatic lung cancer - oncology- arava rheumatioid arhtitis- mepron, sulfasalazine
--- NOTE | 2018-10-25 13:20 | PN ---
Progress Note, Physician Chief Complaint: Pt A&Ox3; sitting up in bed; c/o SOB jus walking a few steps to the bathroom, and it panics her (she has been markedly short of breath on minimal exertion for the past 3 months). No chest pain. History of Present Illness: The patient is a 73 year old black woman with a past medical history of stage 4 lung cancer (s/p right upper lobe removal, currently on immunotherapy), diastolic CHF, and COPD (5L at home; quit smoking cigareettes bout 3 months ago) ) here today for evaluation of shortness of breath. The patient was recently discharged to the [facility] on 10/16/[address] Camarillo when she was sent in. She notes that she has had worsening shortness of breath and orthopnea over the past few days. Patient denies headache, lightheadedness. Denies fever, chills. Denies chest pain. Allergies: aspirin PCP: Juventino Ruby Oncologist: Humza Camarillo - Current Medication List Current Medications: Active Medications Acetaminophen (Tylenol -) 500 mg PO Q6H PRN PRN Reason: PAIN 6-10 Albuterol Sulfate (Ventolin 0.083% Nebulizer Soln -) 1 amp NEB RQID [facility] Last Admin: 10/25/18 12:11 Dose: 1 amp Alprazolam (Xanax -) 0.25 mg PO BID PRN PRN Reason: ANXIETY Amlodipine Besylate (Norvasc -) 5 mg PO DAILY [facility] Last Admin: 10/25/18 09:38 Dose: 5 mg Atovaquone (Mepron -) 1,500 mg PO DAILY@0800 [facility] Last Admin: 10/25/18 11:34 Dose: 1,500 mg Buspirone HCl (Buspar -) 5 mg PO BID [facility] Last Admin: 10/25/18 09:41 Dose: 5 mg Guaifenesin (Robitussin -) 10 ml PO Q6H PRN PRN Reason: COUGH Heparin Sodium (Porcine) (Heparin -) 5,000 unit SQ BID [facility] Last Admin: 10/25/18 09:38 Dose: 5,000 unit Insulin Aspart (Novolog Vial Sliding Scale -) 1 vial SQ [facility]; Protocol Last Admin: 10/25/18 11:46 Dose: Not Given Leflunomide (Arava -) 20 mg PO DAILY [facility] Last Admin: 10/25/18 10:55 Dose: 20 mg Losartan Potassium (Cozaar -) 50 mg PO DAILY [facility] Last Admin: 10/25/18 09:40 Dose: 50 mg Pantoprazole Sodium (Protonix -) 40 mg PO DAILY [facility] Last Admin: 10/25/18 09:39 Dose: 40 mg Prednisone (Deltasone -) 20 mg PO BID [facility] Sulfasalazine (Azulfidine En-Tabs -) 1,000 mg PO BID [facility] Last Admin: 10/25/18 09:37 Dose: 1,000 mg Tramadol HCl (Ultram -) 50 mg PO Q8H PRN PRN Reason: PAIN LEVEL 1-5 Zolpidem Tartrate (Ambien -) 5 mg PO HS [facility] Last Admin: 10/25/18 01:43 Dose: 5 mg - Objective Vital Signs: Vital Signs Temperature 98.4 F 10/25/18 10:00 Pulse Rate 125 H 10/25/18 10:00 Respiratory Rate 21 H 10/25/18 10:00 Blood Pressure 135/65 10/25/18 10:00 O2 Sat by Pulse Oximetry (%) 93 L 10/25/18 08:19 Constitutional: Yes: Anxious Eyes: Yes: WNL HENT: Yes: WNL Cardiovascular: Yes: Tachycardia, S1, S2, S4 Respiratory: Yes: Diminished, On Nasal O2, SOB, SOB on Exertion, Tachypnea ...Rectal Exam: Yes: Deferred Genitourinary: No: Anuria Breast(s): Yes: WNL Musculoskeletal: Yes: Muscle Weakness Extremities: Yes: WNL Edema: No Peripheral Pulses WNL: Yes Integumentary: Yes: WNL Neurological: Yes: WNL Psychiatric: Yes: Alert, Oriented, Other (anxeity/depression) Labs: CBC, BMP 10/25/18 05:45 10/25/18 05:45 INR, PTT INR 1.34 (0.83-1.09) H 10/24/18 13:51 - ....Imaging Chest X-ray: Image Reviewed EKG: Image Reviewed Problem List - Problems (1) COPD (chronic obstructive pulmonary disease) Assessment/Plan: bronchodilators, steroids, antibiotics per ID, ems driver. Code(s): J44.9 - CHRONIC OBSTRUCTIVE PULMONARY DISEASE, UNSPECIFIED (2) Metastatic lung cancer (metastasis from lung to other site) Assessment/Plan: F/u [facility] oncologist Code(s): C34.90 - MALIGNANT NEOPLASM OF UNSP PART OF UNSP BRONCHUS OR LUNG (3) Elevated troponin Code(s): R74.8 - ABNORMAL LEVELS OF OTHER SERUM ENZYMES (4) Acute on chronic diastolic CHF (congestive heart failure) Assessment/Plan: On furosemide IV prn. F/u BUn/Cr, electrolytes, Is and Os, daily weight. Code(s): I50.33 - ACUTE ON CHRONIC DIASTOLIC (CONGESTIVE) HEART FAILURE
--- NOTE | 2018-10-25 14:43 | CON.PULM ---
Consult Consult Specialty:: PULMONARY Referred by:: Dr Toro Reason for Consultation:: shortness of breath - History of Present Illness Chief Complaint: shortness of breath History of Present Illness: 73yo female with h/o HTN, rheumatoid arthritis, COPD, stage IV squamous cell lung cancer on nivolumab just received yesterday who was admitted with worsening shortness of breath. Pt recently discharged from hospital with COPD exacerbation. Denies chest pain or palpitations. +nonproductive cough without wheezing. No fevers, chills or sweats. - History Source History Provided By: Patient, Medical Record Limitations to Obtaining History: No Limitations - Past Medical History Cardio/Vascular: Yes: HTN Pulmonary: Yes: Bronchitis, Cancer, COPD, Pneumonia, Other (Lung cancer --stage IIB . squamous cell). No: Asthma, Previously Intubated, Pulmonary Embolus, Pulmonary Fibrosis, Sleep Apnea Rheumatology: Yes: Other (rheumatoid arthritis) - Alcohol/Substance Use Hx Alcohol Use: No - Smoking History Smoking history: Former smoker Have you smoked in the past 12 months: No Aproximately how many cigarettes per day: 10 If you are a former smoker, when did you quit?: 12/16/14 - Social History ADL: Independent History of Recent Travel: No Home Medications - Allergies Allergies/Adverse Reactions: Allergies Allergy/AdvReac Type Severity Reaction Status Date / Time aspirin AdvReac Mild Verified 10/24/18 13:05 - Home Medications Home Medications: Ambulatory Orders Alprazolam [Xanax] 0.25 mg PO DAILY 06/15/18 Losartan Potassium [Cozaar -] 50 mg PO DAILY 06/15/18 Pantoprazole Sodium [Protonix -] 40 mg PO DAILY 06/15/18 Zolpidem Tartrate [Ambien] 10 mg PO DAILY 06/15/18 Acetaminophen [Tylenol .Extra-Strength -] 500 mg PO Q6H PRN tablet 06/19/18 Atovaquone [Mepron Oral Solution -] 1,500 mg PO DAILY@0800 #1 bottle 06/19/18 Albuterol Sulfate Inhaler - [Ventolin HFA Inhaler -] 2 puff IH Q6H PRN inhaler 06/25/18 Amlodipine Besylate [Norvasc -] 5 mg PO DAILY tablet 06/25/18 Leflunomide [Arava -] 20 mg PO DAILY #60 tablet 06/25/18 Sulfasalazine [Azulfidine En-Tabs -] 1,000 mg PO BID #120 tablet. 06/25/18 traMADol HCL [Ultram -] 50 mg PO Q8H PRN tablet MDD 3 06/25/18 Furosemide [Lasix -] 20 mg PO DAILY #30 tablet 08/29/18 predniSONE [Deltasone -] 20 mg PO DAILY #14 tablet 09/20/18 Albuterol 0.083% Nebulizer Yudy [Ventolin 0.083% Nebulizer Soln -] 1 amp NEB RQID amp 09/24/18 Guaifenesin [Robitussin -] 10 ml PO Q6H PRN cup 09/24/18 Acetylcysteine Po/INH 20% [Mucomyst 20 Oral / INH Use Only*] 200 mg NEB RQID vial 10/03/18 Heparin - 5,000 unit SQ BID vial 10/03/18 Selin-Cath Flush [Selin-Cath Flush -] 10 ml IVPUSH PRN PRN ml 10/03/18 Buspirone HCl [Buspar -] 5 mg PO BID tablet 10/10/18 Review of Systems - Review of Systems Constitutional: reports: Weakness. denies: Chills, Fever Eyes: denies: Recent Change in Vision HENT: denies: Nasal Congestion, Throat Pain Neck: denies: Stiffness, Tenderness Cardiovascular: reports: Shortness of Breath. denies: Chest Pain Respiratory: reports: Cough. denies: Hemoptysis, Wheezing Gastrointestinal: denies: Abdominal Pain, Nausea, Vomiting Genitourinary: denies: Dysuria, Hematuria Neurological: denies: Dizziness, Headache Endocrine: denies: Unexplained Weight Loss Physical Exam Vital Sings: Vital Signs Temperature 98.4 F 10/25/18 10:00 Pulse Rate 125 H 10/25/18 10:00 Respiratory Rate 21 H 10/25/18 10:00 Blood Pressure 135/65 10/25/18 10:00 O2 Sat by Pulse Oximetry (%) 93 L 10/25/18 08:19 Constitutional: Yes: Anxious Eyes: Yes: Conjunctiva Clear, EOM Intact HENT: Yes: Atraumatic, Normocephalic Neck: Yes: Supple, Trachea Midline Cardiovascular: Yes: Regular Rate and Rhythm, Tachycardia Respiratory: Yes: Diminished (decreased breath sounds at the bases) ...Clubbing: No Gastrointestinal: Yes: Normal Bowel Sounds, Soft. No: Tenderness Edema: No Neurological: Yes: Alert, Oriented Labs: CBC, BMP 10/25/18 05:45 10/25/18 05:45 Imaging - Results Chest X-ray: Report Reviewed, Image Reviewed (bilateral masses, pleural effusions) Assessment/Plan Acute Hypoxic Respiratory Failure Metastatic Lung Cancer on nivolumab COPD Pleural Effusions +Troponins likely Demand Ischemia Pulmonary HTN Rheumatoid Arthritis HTN - right heart pressures higher than previous will order CTA chest to r/o PE and to reassess progression of disease - if effusions larger, may benefit from therapeutic thoracentesis - LE dopplers to r/o DVT - continue prednisone at current dose - inhaled bronchodilators - O2 to keep SpO2 >90% - DVT prophylaxis Thank you for this consult Thomas Zazueta MD
[2018-10-25] MEDS: ALPRAZolam 0.25 MG TABLET PO PRN (15:57)
[2018-10-25] MEDS: predniSONE 20 MG TABLET (UD) PO SCH (22:29)
[2018-10-26] MEDS: ZOLPIDEM TARTRATE 5 MG TABLET PO SCH (00:37)
[2018-10-26] MEDS: ALPRAZolam 0.25 MG TABLET PO PRN ×3 (00:37→17:21)
[2018-10-26] MEDS: INSULIN SLIDING SCALE (NOVOLOG) 1 VIAL SQ SCH ×4 (06:15→22:34)
[2018-10-26] MEDS: ALBUTEROL SO4 0.083% IH SOL 2.5 MG/3 ML VIAL.NEB. NEB SCH ×4 (07:35→20:30)
--- NOTE | 2018-10-26 09:26 | PN ---
Teaching Attending Note Name of Resident: Ryan Shoemaker ATTENDING PHYSICIAN STATEMENT I saw and evaluated the patient. I reviewed the resident's note and discussed the case with the resident. I agree with the resident's findings and plan as documented. 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 Previous therqapy with carboplatinum, taxol, Rt, and gemcitibine. Presented with SOB, dyspnea. Last Vital Signs Temp Pulse Resp BP Pulse Ox 97.9 F 130 H 26 H 122/72 95 10/26/18 01:00 10/26/18 06:00 10/26/18 06:00 10/26/18 06:00 10/25/18 21:00 HEENT: GIUSEPPE, EOM Intact Oropharynx: coated tongue No mucositis Neck: Supple Nodes: Without adenopathy Breasts: Without masses Cor: RSR, No murmurs, No gallops Lungs: diminished breath sounds , rhonchi Abd: Soft, Normal bowel sounds, No organomegaly Ext: LE edema Skin: No rashes, Integument intact CBC, BMP 10/25/18 05:45 10/25/18 05:45 Current Medications Generic Name Dose Route Start Last Admin Trade Name Freq PRN Reason Stop Dose Admin Acetaminophen 500 mg 10/24/18 17:21 Tylenol - PO Q6H PRN PAIN 6-10 Albuterol Sulfate 1 amp 10/24/18 20:00 10/26/18 07:35 Ventolin 0.083% Nebulizer Soln - NEB Not Given RQID [facility] Alprazolam 0.25 mg 10/25/18 12:33 10/26/18 00:37 Xanax - PO 0.25 mg BID PRN Administration ANXIETY Amlodipine Besylate 5 mg 10/25/18 10:00 10/25/18 09:38 Norvasc - PO 5 mg DAILY [facility] Administration Atovaquone 1,500 mg 10/25/18 08:00 10/25/18 11:34 Mepron - PO 1,500 mg DAILY@0800 [facility] Administration Buspirone HCl 5 mg 10/24/18 22:00 10/25/18 22:30 Buspar - PO 5 mg BID [facility] Administration Guaifenesin 10 ml 10/24/18 17:21 Robitussin - PO Q6H PRN COUGH Heparin Sodium (Porcine) 5,000 unit 10/24/18 22:00 10/25/18 22:35 Heparin - SQ Not Given BID [facility] Insulin Aspart 1 vial 10/24/18 22:00 10/26/18 06:15 Novolog Vial Sliding Scale - SQ Not Given ACHS [facility] Protocol Leflunomide 20 mg 10/25/18 10:00 10/25/18 10:55 Arava - PO 20 mg DAILY [facility] Administration Losartan Potassium 50 mg 10/25/18 10:00 10/25/18 09:40 Cozaar - PO 50 mg DAILY [facility] Administration Pantoprazole Sodium 40 mg 10/25/18 10:00 10/25/18 09:39 Protonix - PO 40 mg DAILY [facility] Administration Prednisone 20 mg 10/25/18 22:00 10/25/18 22:29 Deltasone - PO 20 mg BID [facility] Administration Sulfasalazine 1,000 mg 10/24/18 22:00 10/25/18 22:30 Azulfidine En-Tabs - PO 1,000 mg BID [facility] Administration Tramadol HCl 50 mg 10/24/18 17:21 Ultram - PO Q8H PRN PAIN LEVEL 1-5 Zolpidem Tartrate 5 mg 10/24/18 22:00 10/26/18 00:37 Ambien - PO 5 mg HS [facility] Administration Impression: Metastatic squamous cell ca Rheumatoid arthritis Anemia + troponin Abnormal LFT's Plan: Begin augmentin for tenacious sputum Nystatin for thrush Increase xanax If Hb< 7.5--transfuse OBJECTIVE: ASSESSMENT AND PLAN:
[2018-10-26] MEDS ORDERED: FUROSEMIDE 40 MG TABLET (FP) PO ONE (09:29)
[2018-10-26 09:52] LABS: BASO % 0.1 % (0-2.0); HEMATOCRIT 25.1 % (32.4-45.2); HEMOGLOBIN 8.1 GM/dL (10.7-15.3); LYMPH % 7.6 % (8-40); MCH 29.7 pg (25.7-33.7); MCHC 32.1 g/dl (32.0-36.0); MEAN CELL VOLUME 92.7 fl (80-96); MEAN PLT VOLUME 7.6 fl (7.5-11.1); MONO % 6.9 % (3.8-10.2); NEUT % 85.4 % (42.8-82.8); PLATELET COUNT 307 K/MM3 (134-434); RBC 2.71 M/mm3 (3.60-5.2); WHITE BLOOD COUNT 10.5 K/mm3 (4.0-10.0)
[2018-10-26] MEDS: PANTOPRAZOLE 40 MG TABLET (FP) PO SCH (10:04)
[2018-10-26] MEDS: HEPARIN NA (PORCINE) 5,000 UNITS/ML 1ML VIAL SQ SCH ×2 (10:04→22:33)
[2018-10-26] MEDS: predniSONE 20 MG TABLET (UD) PO SCH ×2 (10:05→22:33)
[2018-10-26] MEDS: LOSARTAN POTASSIUM 50 MG TABLET (FP) PO SCH (10:05)
[2018-10-26] MEDS: amLODIPine BESYLATE 5 MG TABLET (FP) PO SCH (10:05)
[2018-10-26] MEDS: LEFLUNOMIDE 10 MG TABLET PO SCH (10:06)
[2018-10-26] MEDS: ATOVAQUONE 750 MG/5 ML (UNIT-DOSE PACKAGING) PO SCH (10:07)
[2018-10-26] MEDS: busPIRone HCL 5 MG TABLET PO SCH ×2 (10:07→22:32)
[2018-10-26 10:22] LABS: ALBUMIN 2.8 g/dl (3.4-5.0); BILIRUBIN,TOTAL 0.6 mg/dL (0.2-1); BLOOD UREA NITROGEN 31.4 mg/dL (7-18); CALCIUM 8.9 mg/dL (8.5-10.1); CREATININE 1.6 mg/dL (0.55-1.3); POTASSIUM 3.9 mmol/L (3.5-5.1); TOT PROT 5.8 g/dl (6.4-8.2)
--- NOTE | 2018-10-26 12:03 | PN ---
Progress Note, Physician History of Present Illness: PULMONARY ALERT,FEELING BETTER,DYSPNEA IMPROVING. PT REFUSING LOWER EXT ULTRASOUND - Current Medication List Current Medications: Active Medications Acetaminophen (Tylenol -) 500 mg PO Q6H PRN PRN Reason: PAIN 6-10 Albuterol Sulfate (Ventolin 0.083% Nebulizer Soln -) 1 amp NEB RQID [facility] Last Admin: 10/26/18 11:30 Dose: 1 amp Alprazolam (Xanax -) 0.25 mg PO Q6H PRN PRN Reason: ANXIETY Last Admin: 10/26/18 10:04 Dose: 0.25 mg Amlodipine Besylate (Norvasc -) 5 mg PO DAILY [facility] Last Admin: 10/26/18 10:05 Dose: 5 mg Amoxicillin/Clavulanate Potassium (Augmentin - 875mg Tablet) 1 tab PO BID@0800, 1730 [facility] Atovaquone (Mepron -) 1,500 mg PO DAILY@0800 [facility] Last Admin: 10/26/18 10:07 Dose: 1,500 mg Buspirone HCl (Buspar -) 5 mg PO BID [facility] Last Admin: 10/26/18 10:07 Dose: 5 mg Guaifenesin (Robitussin -) 10 ml PO Q6H PRN PRN Reason: COUGH Heparin Sodium (Porcine) (Heparin -) 5,000 unit SQ BID [facility] Last Admin: 10/26/18 10:04 Dose: 5,000 unit Insulin Aspart (Novolog Vial Sliding Scale -) 1 vial SQ ACHS [facility]; Protocol Last Admin: 10/26/18 06:15 Dose: Not Given Leflunomide (Arava -) 20 mg PO DAILY [facility] Last Admin: 10/26/18 10:06 Dose: 20 mg Losartan Potassium (Cozaar -) 50 mg PO DAILY [facility] Last Admin: 10/26/18 10:05 Dose: 50 mg Nystatin (Nystatin) 500,000 unit PO TID [facility] Pantoprazole Sodium (Protonix -) 40 mg PO DAILY [facility] Last Admin: 10/26/18 10:04 Dose: 40 mg Prednisone (Deltasone -) 20 mg PO BID [facility] Last Admin: 10/26/18 10:05 Dose: 20 mg Sulfasalazine (Azulfidine En-Tabs -) 1,000 mg PO BID [facility] Last Admin: 10/26/18 10:06 Dose: 1,000 mg Tramadol HCl (Ultram -) 50 mg PO Q8H PRN PRN Reason: PAIN LEVEL 1-5 Zolpidem Tartrate (Ambien -) 5 mg PO HS [facility] Last Admin: 10/26/18 00:37 Dose: 5 mg - Objective Vital Signs: Vital Signs Temperature 97.9 F 10/26/18 01:00 Pulse Rate 130 H 10/26/18 06:00 Respiratory Rate 26 H 10/26/18 06:00 Blood Pressure 122/72 10/26/18 06:00 O2 Sat by Pulse Oximetry (%) 95 10/25/18 21:00 Constitutional: Yes: Well Nourished, Calm Eyes: Yes: WNL HENT: Yes: WNL Neck: Yes: WNL Cardiovascular: Yes: Regular Rate and Rhythm, S1, S2 Respiratory: Yes: Diminished Labs: CBC, BMP 10/26/18 09:25 10/26/18 09:25 INR, PTT INR 1.34 (0.83-1.09) H 10/24/18 13:51 Problem List - Problems (1) THIAGO (acute kidney injury) Code(s): N17.9 - ACUTE KIDNEY FAILURE, UNSPECIFIED (2) Acute on chronic respiratory failure with hypoxemia Code(s): J96.21 - ACUTE AND CHRONIC RESPIRATORY FAILURE WITH HYPOXIA (3) COPD (chronic obstructive pulmonary disease) Code(s): J44.9 - CHRONIC OBSTRUCTIVE PULMONARY DISEASE, UNSPECIFIED (4) GERD (gastroesophageal reflux disease) Code(s): K21.9 - GASTRO-ESOPHAGEAL REFLUX DISEASE WITHOUT ESOPHAGITIS (5) Metastatic lung cancer (metastasis from lung to other site) Code(s): C34.90 - MALIGNANT NEOPLASM OF UNSP PART OF UNSP BRONCHUS OR LUNG (6) Rheumatoid arthritis Code(s): M06.9 - RHEUMATOID ARTHRITIS, UNSPECIFIED (7) SCC (squamous cell carcinoma of lung) Code(s): C34.90 - MALIGNANT NEOPLASM OF UNSP PART OF UNSP BRONCHUS OR LUNG (8) SOB (shortness of breath) Code(s): R06.02 - SHORTNESS OF BREATH (9) Stage 4 lung cancer Code(s): C34.90 - MALIGNANT NEOPLASM OF UNSP PART OF UNSP BRONCHUS OR LUNG (10) Depression Code(s): F32.9 - MAJOR DEPRESSIVE DISORDER, SINGLE EPISODE, UNSPECIFIED (11) HTN (hypertension) Code(s): I10 - ESSENTIAL (PRIMARY) HYPERTENSION Assessment/Plan Assessment/Plan Acute Hypoxic Respiratory Failure Metastatic Lung Cancer on nivolumab COPD Pleural Effusions +Troponins likely Demand Ischemia Pulmonary HTN Rheumatoid Arthritis HTN THIAGO - LE dopplers to r/o DVT pt refuses - prednisone at current dose - inhaled bronchodilators - O2 to keep SpO2 >90% - DVT prophylaxis DR KERR
--- NOTE | 2018-10-26 13:04 | PN ---
Progress Note, Physician Chief Complaint: patient feeling alot better today awake alert oriented - Current Medication List Current Medications: Active Medications Acetaminophen (Tylenol -) 500 mg PO Q6H PRN PRN Reason: PAIN 6-10 Albuterol Sulfate (Ventolin 0.083% Nebulizer Soln -) 1 amp NEB RQID [facility] Last Admin: 10/26/18 11:30 Dose: 1 amp Alprazolam (Xanax -) 0.25 mg PO Q6H PRN PRN Reason: ANXIETY Last Admin: 10/26/18 10:04 Dose: 0.25 mg Amlodipine Besylate (Norvasc -) 5 mg PO DAILY [facility] Last Admin: 10/26/18 10:05 Dose: 5 mg Amoxicillin/Clavulanate Potassium (Augmentin - 875mg Tablet) 1 tab PO BID@0800, 1730 [facility] Atovaquone (Mepron -) 1,500 mg PO DAILY@0800 [facility] Last Admin: 10/26/18 10:07 Dose: 1,500 mg Buspirone HCl (Buspar -) 5 mg PO BID [facility] Last Admin: 10/26/18 10:07 Dose: 5 mg Guaifenesin (Robitussin -) 10 ml PO Q6H PRN PRN Reason: COUGH Heparin Sodium (Porcine) (Heparin -) 5,000 unit SQ BID [facility] Last Admin: 10/26/18 10:04 Dose: 5,000 unit Insulin Aspart (Novolog Vial Sliding Scale -) 1 vial SQ ACHS [facility]; Protocol Last Admin: 10/26/18 12:18 Dose: Not Given Leflunomide (Arava -) 20 mg PO DAILY [facility] Last Admin: 10/26/18 10:06 Dose: 20 mg Losartan Potassium (Cozaar -) 50 mg PO DAILY [facility] Last Admin: 10/26/18 10:05 Dose: 50 mg Nystatin (Nystatin) 500,000 unit PO TID [facility] Pantoprazole Sodium (Protonix -) 40 mg PO DAILY [facility] Last Admin: 10/26/18 10:04 Dose: 40 mg Prednisone (Deltasone -) 20 mg PO BID [facility] Last Admin: 10/26/18 10:05 Dose: 20 mg Sulfasalazine (Azulfidine En-Tabs -) 1,000 mg PO BID [facility] Last Admin: 10/26/18 10:06 Dose: 1,000 mg Tramadol HCl (Ultram -) 50 mg PO Q8H PRN PRN Reason: PAIN LEVEL 1-5 Zolpidem Tartrate (Ambien -) 5 mg PO HS [facility] Last Admin: 10/26/18 00:37 Dose: 5 mg - Objective Vital Signs: Vital Signs Temperature 97.9 F 10/26/18 01:00 Pulse Rate 130 H 10/26/18 06:00 Respiratory Rate 26 H 10/26/18 06:00 Blood Pressure 122/72 10/26/18 06:00 O2 Sat by Pulse Oximetry (%) 95 10/25/18 21:00 Constitutional: Yes: Calm Cardiovascular: Yes: Regular Rate and Rhythm, S1, S2 Respiratory: Yes: Diminished Gastrointestinal: Yes: Normal Bowel Sounds, Soft Edema: Yes Neurological: Yes: Alert, Oriented Labs: CBC, BMP 10/26/18 09:25 10/26/18 09:25 INR, PTT INR 1.34 (0.83-1.09) H 10/24/18 13:51 Problem List - Problems (1) COPD (chronic obstructive pulmonary disease) Assessment/Plan: chest ct noted prednsione oxygen bronchodilators Code(s): J44.9 - CHRONIC OBSTRUCTIVE PULMONARY DISEASE, UNSPECIFIED (2) Metastatic lung cancer (metastasis from lung to other site) Assessment/Plan: oncology on board dvt ppx Code(s): C34.90 - MALIGNANT NEOPLASM OF UNSP PART OF UNSP BRONCHUS OR LUNG (3) Shortness of breath Assessment/Plan: gettign better started on augmentin Code(s): R06.02 - SHORTNESS OF BREATH
[2018-10-26] MEDS ORDERED: PT OWN MED DRAWER 7, Y5N ONE (13:46)
[2018-10-26] MEDS: NYSTATIN 500,000 UNITS TABLET PO SCH ×2 (14:06→22:34)
[2018-10-26] MEDS: AMOX TR/POT CLAV 875MG/125MG TABLETS (FP) PO SCH (17:21)
[2018-10-27] MEDS: ALPRAZolam 0.25 MG TABLET PO PRN ×3 (00:44→11:11)
[2018-10-27] MEDS: ZOLPIDEM TARTRATE 5 MG TABLET PO SCH (00:44)
[2018-10-27] MEDS ORDERED: ALBUTEROL SO4 0.083% IH SOL 2.5 MG/3 ML VIAL.NEB. NEB ONE (04:50)
[2018-10-27] MEDS ORDERED: PT OWN MED DRAWER 7, Y5N ONE ×2 (05:18→23:04)
[2018-10-27] MEDS: INSULIN SLIDING SCALE (NOVOLOG) 1 VIAL SQ SCH ×4 (06:29→23:12)
[2018-10-27] MEDS: ALBUTEROL SO4 0.083% IH SOL 2.5 MG/3 ML VIAL.NEB. NEB SCH ×4 (07:35→20:33)
[2018-10-27 07:58] LABS: BASO % 0.1 % (0-2.0); HEMATOCRIT 25.1 % (32.4-45.2); LYMPH % 6.4 % (8-40); MCH 29.9 pg (25.7-33.7); MCHC 32.1 g/dl (32.0-36.0); MEAN PLT VOLUME 7.9 fl (7.5-11.1); MONO % 5.6 % (3.8-10.2); NEUT % 87.9 % (42.8-82.8); PLATELET COUNT 276 K/MM3 (134-434); RDW 17.7 % (11.6-15.6); WHITE BLOOD COUNT 9.2 K/mm3 (4.0-10.0)
[2018-10-27 08:21] LABS: ALBUMIN 2.8 g/dl (3.4-5.0); BILIRUBIN,TOTAL 0.5 mg/dL (0.2-1); BLOOD UREA NITROGEN 29.3 mg/dL (7-18); CALCIUM 8.6 mg/dL (8.5-10.1); CREATININE 1.4 mg/dL (0.55-1.3); TOT PROT 5.8 g/dl (6.4-8.2)
[2018-10-27 08:22] LABS: MAGNESIUM 1.8 mg/dL (1.8-2.4); POTASSIUM 4.3 mmol/L (3.5-5.1)
[2018-10-27] MEDS: amLODIPine BESYLATE 5 MG TABLET (FP) PO SCH (09:38)
[2018-10-27] MEDS: PANTOPRAZOLE 40 MG TABLET (FP) PO SCH (09:38)
[2018-10-27] MEDS: predniSONE 20 MG TABLET (UD) PO SCH ×2 (09:38→23:11)
[2018-10-27] MEDS: LOSARTAN POTASSIUM 50 MG TABLET (FP) PO SCH (09:38)
[2018-10-27] MEDS: AMOX TR/POT CLAV 875MG/125MG TABLETS (FP) PO SCH ×2 (09:39→17:10)
[2018-10-27] MEDS: HEPARIN NA (PORCINE) 5,000 UNITS/ML 1ML VIAL SQ SCH ×2 (09:39→23:11)
[2018-10-27] MEDS: ATOVAQUONE 750 MG/5 ML (UNIT-DOSE PACKAGING) PO SCH (09:39)
[2018-10-27] MEDS: LEFLUNOMIDE 10 MG TABLET PO SCH (09:39)
[2018-10-27] MEDS: busPIRone HCL 5 MG TABLET PO SCH ×2 (09:40→23:08)
--- NOTE | 2018-10-27 12:39 | PN ---
Progress Note (short form) - Note Progress Note: Seen in follow up. Ongoing dyspnea, and cough. Denies pain. Meds reviewed. Current Medications Generic Name Dose Route Start Last Admin Trade Name Freq PRN Reason Stop Dose Admin Acetaminophen 500 mg 10/24/18 17:21 10/26/18 17:24 Tylenol - PO 500 mg Q6H PRN Administration PAIN 6-10 Albuterol Sulfate 1 amp 10/24/18 20:00 10/27/18 11:35 Ventolin 0.083% Nebulizer Soln - NEB 1 amp RQID [facility] Administration Alprazolam 0.25 mg 10/26/18 09:28 10/27/18 11:11 Xanax - PO 0.25 mg Q6H PRN Administration ANXIETY Amlodipine Besylate 5 mg 10/25/18 10:00 10/27/18 09:38 Norvasc - PO 5 mg DAILY [facility] Administration Amoxicillin/Clavulanate Potassium 1 tab 10/26/18 17:30 10/27/18 09:39 Augmentin - 875mg Tablet PO 1 tab BID@0800,1730 [facility] Administration Atovaquone 1,500 mg 10/25/18 08:00 10/27/18 09:39 Mepron - PO 1,500 mg DAILY@0800 [facility] Administration Buspirone HCl 5 mg 10/24/18 22:00 10/27/18 09:40 Buspar - PO 5 mg BID [facility] Administration Guaifenesin 10 ml 10/24/18 17:21 Robitussin - PO Q6H PRN COUGH Heparin Sodium (Porcine) 5,000 unit 10/24/18 22:00 10/27/18 09:39 Heparin - SQ 5,000 unit BID [facility] Administration Insulin Aspart 1 vial 10/24/18 22:00 10/27/18 11:44 Novolog Vial Sliding Scale - SQ Not Given ACHS [facility] Protocol Leflunomide 20 mg 10/25/18 10:00 10/27/18 09:39 Arava - PO 20 mg DAILY [facility] Administration Losartan Potassium 50 mg 10/25/18 10:00 10/27/18 09:38 Cozaar - PO 50 mg DAILY [facility] Administration Nystatin 500,000 units 10/27/18 06:38 Nystatin Oral Suspension - PO TID [facility] Pantoprazole Sodium 40 mg 10/25/18 10:00 10/27/18 09:38 Protonix - PO 40 mg DAILY [facility] Administration Prednisone 20 mg 10/25/18 22:00 10/27/18 09:38 Deltasone - PO 20 mg BID [facility] Administration Sulfasalazine 1,000 mg 10/24/18 22:00 10/27/18 09:39 Azulfidine En-Tabs - PO 1,000 mg BID [facility] Administration Tramadol HCl 50 mg 10/24/18 17:21 Ultram - PO Q8H PRN PAIN LEVEL 1-5 Zolpidem Tartrate 5 mg 10/24/18 22:00 10/27/18 00:44 Ambien - PO 5 mg HS [facility] Administration On exam: Last Vital Signs Temp Pulse Resp BP Pulse Ox 98.1 F 104 H 26 H 157/94 94 L 10/27/18 06:00 10/27/18 06:00 10/27/18 06:00 10/27/18 06:00 10/26/18 22:00 General: Sitting up in bed Extremities: hand changes consistent with RA Chest: soft breath sounds bilaterally, no wheeze or crackles Abdomen: Soft, no organomegaly, no masses. Neuro: Alert, oriented, non-focal. CVS: Normal sinus rhythm, S1, S2, no gallop or murmur. Labs reviewed (none recent): CBC, BMP 10/27/18 07:00 10/27/18 07:00 Assessment. Patient with multiply recurrent non-small cell lung cancer, rheumatoid arthritis, HTN, steroid induced hyperglycemia. Currently on nivolumab - stable disease. Admitted with dyspnea - attributed to COPD exacerbation - multiple similar admissions. Management as per primary team / pulmonology. Trial of Augmentin - started yesterday. Will continue outpatient chemotherapy with Dr Paige when discharged.
--- NOTE | 2018-10-27 13:49 | PN ---
Progress Note (short form) - Note Progress Note: Breathing feels a little better. Dry cough. No CP. No acute events overnight. Intake & Output 10/24/18 10/25/18 10/26/18 10/27/18 23:59 23:59 23:59 23:59 Intake Total 360 10 Balance 360 10 Weight 194 lb 3.2 oz 188 lb 6.4 oz 187 lb 12.8 oz 188 lb 3.2 oz Last Vital Signs Temp Pulse Resp BP Pulse Ox 98.1 F 104 H 24 H 157/94 98 10/27/18 06:00 10/27/18 06:00 10/27/18 09:00 10/27/18 06:00 10/27/18 09:00 Active Medications Acetaminophen (Tylenol -) 500 mg PO Q6H PRN PRN Reason: PAIN 6-10 Last Admin: 10/26/18 17:24 Dose: 500 mg Albuterol Sulfate (Ventolin 0.083% Nebulizer Soln -) 1 amp NEB RQID [facility] Last Admin: 10/27/18 11:35 Dose: 1 amp Alprazolam (Xanax -) 0.25 mg PO Q6H PRN PRN Reason: ANXIETY Last Admin: 10/27/18 11:11 Dose: 0.25 mg Amlodipine Besylate (Norvasc -) 5 mg PO DAILY [facility] Last Admin: 10/27/18 09:38 Dose: 5 mg Amoxicillin/Clavulanate Potassium (Augmentin - 875mg Tablet) 1 tab PO BID@0800, 1730 [facility] Last Admin: 10/27/18 09:39 Dose: 1 tab Atovaquone (Mepron -) 1,500 mg PO DAILY@0800 [facility] Last Admin: 10/27/18 09:39 Dose: 1,500 mg Buspirone HCl (Buspar -) 5 mg PO BID [facility] Last Admin: 10/27/18 09:40 Dose: 5 mg Guaifenesin (Robitussin -) 10 ml PO Q6H PRN PRN Reason: COUGH Heparin Sodium (Porcine) (Heparin -) 5,000 unit SQ BID [facility] Last Admin: 10/27/18 09:39 Dose: 5,000 unit Insulin Aspart (Novolog Vial Sliding Scale -) 1 vial SQ ACHS [facility]; Protocol Last Admin: 10/27/18 11:44 Dose: Not Given Leflunomide (Arava -) 20 mg PO DAILY [facility] Last Admin: 10/27/18 09:39 Dose: 20 mg Losartan Potassium (Cozaar -) 50 mg PO DAILY [facility] Last Admin: 10/27/18 09:38 Dose: 50 mg Nystatin (Nystatin Oral Suspension -) 500,000 units PO TID [facility] Pantoprazole Sodium (Protonix -) 40 mg PO DAILY [facility] Last Admin: 10/27/18 09:38 Dose: 40 mg Prednisone (Deltasone -) 20 mg PO BID [facility] Last Admin: 10/27/18 09:38 Dose: 20 mg Sulfasalazine (Azulfidine En-Tabs -) 1,000 mg PO BID [facility] Last Admin: 10/27/18 09:39 Dose: 1,000 mg Tramadol HCl (Ultram -) 50 mg PO Q8H PRN PRN Reason: PAIN LEVEL 1-5 Zolpidem Tartrate (Ambien -) 5 mg PO HS [facility] Last Admin: 10/27/18 00:44 Dose: 5 mg Constitutional: Yes: NAD Eyes: Yes: WNL HENT: Yes: WNL Neck: Yes: WNL Cardiovascular: Yes: Regular Rate and Rhythm, S1, S2 Respiratory: Yes: Diminished, few scattered rhonchi, no wheeze Labs: Laboratory Results - last 24 hr 10/27/18 10/27/18 07:00 07:00 WBC 9.2 RBC 2.70 L Hgb 8.0 L Hct 25.1 L MCV 93.0 MCH 29.9 MCHC 32.1 RDW 17.7 H Plt Count 276 MPV 7.9 Absolute Neuts (auto) 8.1 H Neutrophils % 87.9 H Lymphocytes % 6.4 L Monocytes % 5.6 Eosinophils % 0.0 Basophils % 0.1 Nucleated RBC % 0 Sodium 137 Potassium 4.3 Chloride 100 Carbon Dioxide 28 Anion Gap 9 BUN 29.3 H Creatinine 1.4 H Est GFR (CKD-EPI)AfAm 43.40 Est GFR (CKD-EPI)NonAf 37.44 Random Glucose 118 H Calcium 8.6 Magnesium 1.8 Total Bilirubin 0.5 AST 30 ALT 15 Alkaline Phosphatase 77 Total Protein 5.8 L Albumin 2.8 L Problem List - Problems (1) THIAGO (acute kidney injury) Code(s): N17.9 - ACUTE KIDNEY FAILURE, UNSPECIFIED (2) Acute on chronic respiratory failure with hypoxemia Code(s): J96.21 - ACUTE AND CHRONIC RESPIRATORY FAILURE WITH HYPOXIA (3) COPD (chronic obstructive pulmonary disease) Code(s): J44.9 - CHRONIC OBSTRUCTIVE PULMONARY DISEASE, UNSPECIFIED (4) GERD (gastroesophageal reflux disease) Code(s): K21.9 - GASTRO-ESOPHAGEAL REFLUX DISEASE WITHOUT ESOPHAGITIS (5) Metastatic lung cancer (metastasis from lung to other site) Code(s): C34.90 - MALIGNANT NEOPLASM OF UNSP PART OF UNSP BRONCHUS OR LUNG (6) Rheumatoid arthritis Code(s): M06.9 - RHEUMATOID ARTHRITIS, UNSPECIFIED (7) SCC (squamous cell carcinoma of lung) Code(s): C34.90 - MALIGNANT NEOPLASM OF UNSP PART OF UNSP BRONCHUS OR LUNG (8) SOB (shortness of breath) Code(s): R06.02 - SHORTNESS OF BREATH (9) Stage 4 lung cancer Code(s): C34.90 - MALIGNANT NEOPLASM OF UNSP PART OF UNSP BRONCHUS OR LUNG (10) Depression Code(s): F32.9 - MAJOR DEPRESSIVE DISORDER, SINGLE EPISODE, UNSPECIFIED (11) HTN (hypertension) Code(s): I10 - ESSENTIAL (PRIMARY) HYPERTENSION Assessment/Plan Assessment/Plan Acute Hypoxic Respiratory Failure Metastatic Lung Cancer on nivolumab COPD Pleural Effusions +Troponins likely Demand Ischemia Pulmonary HTN Rheumatoid Arthritis HTN THIAGO - Patient has refused LE dopplers to r/o DVT - prednisone at current dose - inhaled bronchodilators - O2 to keep SpO2 >90% - DVT prophylaxis Dr Sanabria
[2018-10-27] MEDS: NYSTATIN 500,000 UNITS/5 ML SUSPENSION PO SCH (13:59)
--- NOTE | 2018-10-27 17:52 | PN ---
Progress Note, Physician Chief Complaint: COPD Metastatic lung ca History of Present Illness: NAD sitting in chair SOB on exertion - Current Medication List Current Medications: Active Medications Acetaminophen (Tylenol -) 500 mg PO Q6H PRN PRN Reason: PAIN 6-10 Last Admin: 10/26/18 17:24 Dose: 500 mg Albuterol Sulfate (Ventolin 0.083% Nebulizer Soln -) 1 amp NEB RQID [facility] Last Admin: 10/27/18 15:50 Dose: 1 amp Alprazolam (Xanax -) 0.25 mg PO Q6H PRN PRN Reason: ANXIETY Last Admin: 10/27/18 11:11 Dose: 0.25 mg Amlodipine Besylate (Norvasc -) 5 mg PO DAILY [facility] Last Admin: 10/27/18 09:38 Dose: 5 mg Amoxicillin/Clavulanate Potassium (Augmentin - 875mg Tablet) 1 tab PO BID@0800, 1730 [facility] Last Admin: 10/27/18 17:10 Dose: 1 tab Atovaquone (Mepron -) 1,500 mg PO DAILY@0800 [facility] Last Admin: 10/27/18 09:39 Dose: 1,500 mg Buspirone HCl (Buspar -) 5 mg PO BID [facility] Last Admin: 10/27/18 09:40 Dose: 5 mg Guaifenesin (Robitussin -) 10 ml PO Q6H PRN PRN Reason: COUGH Heparin Sodium (Porcine) (Heparin -) 5,000 unit SQ BID [facility] Last Admin: 10/27/18 09:39 Dose: 5,000 unit Insulin Aspart (Novolog Vial Sliding Scale -) 1 vial SQ [facility]; Protocol Last Admin: 10/27/18 11:44 Dose: Not Given Leflunomide (Arava -) 20 mg PO DAILY [facility] Last Admin: 10/27/18 09:39 Dose: 20 mg Losartan Potassium (Cozaar -) 50 mg PO DAILY [facility] Last Admin: 10/27/18 09:38 Dose: 50 mg Nystatin (Nystatin Oral Suspension -) 500,000 units PO TID [facility] Last Admin: 10/27/18 13:59 Dose: Not Given Pantoprazole Sodium (Protonix -) 40 mg PO DAILY [facility] Last Admin: 10/27/18 09:38 Dose: 40 mg Prednisone (Deltasone -) 20 mg PO BID [facility] Last Admin: 10/27/18 09:38 Dose: 20 mg Sulfasalazine (Azulfidine En-Tabs -) 1,000 mg PO BID [facility] Last Admin: 10/27/18 09:39 Dose: 1,000 mg Zolpidem Tartrate (Ambien -) 5 mg PO HS [facility] Last Admin: 10/27/18 00:44 Dose: 5 mg - Objective Vital Signs: Vital Signs Temperature 98.2 F 10/27/18 10:00 Pulse Rate 108 H 10/27/18 10:00 Respiratory Rate 24 H 10/27/18 10:00 Blood Pressure 152/82 10/27/18 10:00 O2 Sat by Pulse Oximetry (%) 98 10/27/18 09:00 Constitutional: Yes: Well Nourished, No Distress, Calm Cardiovascular: Yes: Regular Rate and Rhythm Respiratory: Yes: Regular, On Nasal O2, SOB on Exertion Gastrointestinal: Yes: Normal Bowel Sounds, Soft, Abdomen, Obese Genitourinary: Yes: WNL Musculoskeletal: Yes: Muscle Weakness Extremities: Yes: WNL Edema: No Peripheral Pulses WNL: Yes Neurological: Yes: Alert, Oriented Psychiatric: Yes: Alert, Oriented Labs: CBC, BMP 10/27/18 07:00 10/27/18 07:00 INR, PTT INR 1.34 (0.83-1.09) H 10/24/18 13:51 Assessment/Plan (1) COPD (chronic obstructive pulmonary disease) Assessment/Plan: chest ct noted prednsione oxygen bronchodilators Seen by pulmonary Code(s): J44.9 - CHRONIC OBSTRUCTIVE PULMONARY DISEASE, UNSPECIFIED (2) Metastatic lung cancer (metastasis from lung to other site) Assessment/Plan: oncology on board dvt ppx Code(s): C34.90 - MALIGNANT NEOPLASM OF UNSP PART OF UNSP BRONCHUS OR LUNG (3) Shortness of breath Assessment/Plan: gettign better started on augmentin Prednisone 20 mg po daily
[2018-10-28] MEDS: ZOLPIDEM TARTRATE 5 MG TABLET PO SCH ×2 (00:44→22:13)
[2018-10-28] MEDS: ALPRAZolam 0.25 MG TABLET PO PRN ×2 (00:45→22:14)
[2018-10-28] MEDS: NYSTATIN 500,000 UNITS/5 ML SUSPENSION PO SCH ×2 (00:50→06:41)
[2018-10-28] MEDS: INSULIN SLIDING SCALE (NOVOLOG) 1 VIAL SQ SCH ×3 (06:41→22:14)
[2018-10-28] MEDS ORDERED: PT OWN MED DRAWER 7, Y5N ONE (09:08)
[2018-10-28] MEDS: LEFLUNOMIDE 10 MG TABLET PO SCH (09:23)
[2018-10-28] MEDS: busPIRone HCL 5 MG TABLET PO SCH ×2 (09:23→22:14)
[2018-10-28] MEDS: LOSARTAN POTASSIUM 50 MG TABLET (FP) PO SCH (09:24)
[2018-10-28] MEDS: PANTOPRAZOLE 40 MG TABLET (FP) PO SCH (09:24)
[2018-10-28] MEDS: HEPARIN NA (PORCINE) 5,000 UNITS/ML 1ML VIAL SQ SCH ×2 (09:24→22:12)
[2018-10-28] MEDS: amLODIPine BESYLATE 5 MG TABLET (FP) PO SCH (09:24)
[2018-10-28] MEDS: AMOX TR/POT CLAV 875MG/125MG TABLETS (FP) PO SCH ×2 (09:24→17:26)
[2018-10-28] MEDS: ATOVAQUONE 750 MG/5 ML (UNIT-DOSE PACKAGING) PO SCH (09:24)
[2018-10-28] MEDS: predniSONE 20 MG TABLET (UD) PO SCH ×2 (09:24→22:13)
[2018-10-28] MEDS: ALBUTEROL SO4 0.083% IH SOL 2.5 MG/3 ML VIAL.NEB. NEB SCH ×4 (09:28→21:05)
--- NOTE | 2018-10-28 15:03 | PN ---
Progress Note, Physician Chief Complaint: COPD Metastatic lung ca History of Present Illness: NAD sitting in chair SOB on exertion - Current Medication List Current Medications: Active Medications Acetaminophen (Tylenol -) 500 mg PO Q6H PRN PRN Reason: PAIN 6-10 Last Admin: 10/26/18 17:24 Dose: 500 mg Albuterol Sulfate (Ventolin 0.083% Nebulizer Soln -) 1 amp NEB RQID [facility] Last Admin: 10/28/18 13:18 Dose: 1 amp Alprazolam (Xanax -) 0.25 mg PO Q6H PRN PRN Reason: ANXIETY Last Admin: 10/28/18 00:45 Dose: 0.25 mg Amlodipine Besylate (Norvasc -) 5 mg PO DAILY [facility] Last Admin: 10/28/18 09:24 Dose: 5 mg Amoxicillin/Clavulanate Potassium (Augmentin - 875mg Tablet) 1 tab PO BID@0800, 1730 [facility] Last Admin: 10/28/18 09:24 Dose: 1 tab Atovaquone (Mepron -) 1,500 mg PO DAILY@0800 [facility] Last Admin: 10/28/18 09:24 Dose: 1,500 mg Buspirone HCl (Buspar -) 5 mg PO BID [facility] Last Admin: 10/28/18 09:23 Dose: 5 mg Guaifenesin (Robitussin -) 10 ml PO Q6H PRN PRN Reason: COUGH Heparin Sodium (Porcine) (Heparin -) 5,000 unit SQ BID [facility] Last Admin: 10/28/18 09:24 Dose: 5,000 unit Insulin Aspart (Novolog Vial Sliding Scale -) 1 vial SQ [facility]; Protocol Last Admin: 10/28/18 06:41 Dose: Not Given Leflunomide (Arava -) 20 mg PO DAILY [facility] Last Admin: 10/28/18 09:23 Dose: 20 mg Losartan Potassium (Cozaar -) 50 mg PO DAILY [facility] Last Admin: 10/28/18 09:24 Dose: 50 mg Pantoprazole Sodium (Protonix -) 40 mg PO DAILY [facility] Last Admin: 10/28/18 09:24 Dose: 40 mg Prednisone (Deltasone -) 20 mg PO BID [facility] Last Admin: 10/28/18 09:24 Dose: 20 mg Sulfasalazine (Azulfidine En-Tabs -) 1,000 mg PO BID [facility] Last Admin: 10/28/18 09:23 Dose: 1,000 mg Zolpidem Tartrate (Ambien -) 5 mg PO HS [facility] Last Admin: 10/28/18 00:44 Dose: 5 mg - Objective Vital Signs: Vital Signs Temperature 97.1 F L 10/28/18 10:00 Pulse Rate 104 H 10/28/18 10:00 Respiratory Rate 26 H 10/28/18 10:00 Blood Pressure 150/98 10/28/18 10:00 O2 Sat by Pulse Oximetry (%) 98 10/28/18 09:00 Constitutional: Yes: Well Nourished, No Distress, Calm Cardiovascular: Yes: Regular Rate and Rhythm Respiratory: Yes: Regular, On Nasal O2, SOB on Exertion Gastrointestinal: Yes: Normal Bowel Sounds, Soft, Abdomen, Obese Genitourinary: Yes: WNL Musculoskeletal: Yes: WNL Extremities: Yes: WNL Edema: No Peripheral Pulses WNL: Yes Neurological: Yes: Alert, Oriented Psychiatric: Yes: Alert, Oriented Labs: CBC, BMP 10/27/18 07:00 10/27/18 07:00 INR, PTT INR 1.34 (0.83-1.09) H 10/24/18 13:51 Assessment/Plan (1) COPD (chronic obstructive pulmonary disease) Assessment/Plan: chest ct noted prednsione oxygen bronchodilators Seen by pulmonary Code(s): J44.9 - CHRONIC OBSTRUCTIVE PULMONARY DISEASE, UNSPECIFIED (2) Metastatic lung cancer (metastasis from lung to other site) Assessment/Plan: oncology on board dvt ppx Code(s): C34.90 - MALIGNANT NEOPLASM OF UNSP PART OF UNSP BRONCHUS OR LUNG (3) Shortness of breath Assessment/Plan: gettign better started on augmentin Prednisone 20 mg po daily
--- NOTE | 2018-10-28 15:08 | PN ---
Progress Note (short form) - Note Progress Note: Breathing feels a little better. Dry cough. No CP. No acute events overnight. Intake & Output 10/25/18 10/26/18 10/27/18 10/28/18 23:59 23:59 23:59 23:59 Intake Total 360 250 480 Balance 360 250 480 Weight 188 lb 6.4 oz 187 lb 12.8 oz 188 lb 3.2 oz Last Vital Signs Temp Pulse Resp BP Pulse Ox 97.1 F L 104 H 26 H 150/98 98 10/28/18 10:00 10/28/18 10:00 10/28/18 10:00 10/28/18 10:00 10/28/18 09:00 Active Medications Acetaminophen (Tylenol -) 500 mg PO Q6H PRN PRN Reason: PAIN 6-10 Last Admin: 10/26/18 17:24 Dose: 500 mg Albuterol Sulfate (Ventolin 0.083% Nebulizer Soln -) 1 amp NEB RQID [facility] Last Admin: 10/28/18 13:18 Dose: 1 amp Alprazolam (Xanax -) 0.25 mg PO Q6H PRN PRN Reason: ANXIETY Last Admin: 10/28/18 00:45 Dose: 0.25 mg Amlodipine Besylate (Norvasc -) 5 mg PO DAILY [facility] Last Admin: 10/28/18 09:24 Dose: 5 mg Amoxicillin/Clavulanate Potassium (Augmentin - 875mg Tablet) 1 tab PO BID@0800, 1730 [facility] Last Admin: 10/28/18 09:24 Dose: 1 tab Atovaquone (Mepron -) 1,500 mg PO DAILY@0800 [facility] Last Admin: 10/28/18 09:24 Dose: 1,500 mg Buspirone HCl (Buspar -) 5 mg PO BID [facility] Last Admin: 10/28/18 09:23 Dose: 5 mg Guaifenesin (Robitussin -) 10 ml PO Q6H PRN PRN Reason: COUGH Heparin Sodium (Porcine) (Heparin -) 5,000 unit SQ BID [facility] Last Admin: 10/28/18 09:24 Dose: 5,000 unit Insulin Aspart (Novolog Vial Sliding Scale -) 1 vial SQ ACHS [facility]; Protocol Last Admin: 10/28/18 06:41 Dose: Not Given Leflunomide (Arava -) 20 mg PO DAILY [facility] Last Admin: 10/28/18 09:23 Dose: 20 mg Losartan Potassium (Cozaar -) 50 mg PO DAILY [facility] Last Admin: 10/28/18 09:24 Dose: 50 mg Pantoprazole Sodium (Protonix -) 40 mg PO DAILY [facility] Last Admin: 10/28/18 09:24 Dose: 40 mg Prednisone (Deltasone -) 20 mg PO BID [facility] Last Admin: 10/28/18 09:24 Dose: 20 mg Sulfasalazine (Azulfidine En-Tabs -) 1,000 mg PO BID [facility] Last Admin: 10/28/18 09:23 Dose: 1,000 mg Zolpidem Tartrate (Ambien -) 5 mg PO HS [facility] Last Admin: 10/28/18 00:44 Dose: 5 mg Constitutional: Yes: NAD Eyes: Yes: WNL HENT: Yes: WNL Neck: Yes: WNL Cardiovascular: Yes: Regular Rate and Rhythm, S1, S2 Respiratory: Yes: Diminished, few scattered rhonchi, no wheeze Labs: Laboratory Results - last 24 hr 10/28/18 06:40 POC Glucometer 137 Problem List - Problems (1) THIAGO (acute kidney injury) Code(s): N17.9 - ACUTE KIDNEY FAILURE, UNSPECIFIED (2) Acute on chronic respiratory failure with hypoxemia Code(s): J96.21 - ACUTE AND CHRONIC RESPIRATORY FAILURE WITH HYPOXIA (3) COPD (chronic obstructive pulmonary disease) Code(s): J44.9 - CHRONIC OBSTRUCTIVE PULMONARY DISEASE, UNSPECIFIED (4) GERD (gastroesophageal reflux disease) Code(s): K21.9 - GASTRO-ESOPHAGEAL REFLUX DISEASE WITHOUT ESOPHAGITIS (5) Metastatic lung cancer (metastasis from lung to other site) Code(s): C34.90 - MALIGNANT NEOPLASM OF UNSP PART OF UNSP BRONCHUS OR LUNG (6) Rheumatoid arthritis Code(s): M06.9 - RHEUMATOID ARTHRITIS, UNSPECIFIED (7) SCC (squamous cell carcinoma of lung) Code(s): C34.90 - MALIGNANT NEOPLASM OF UNSP PART OF UNSP BRONCHUS OR LUNG (8) SOB (shortness of breath) Code(s): R06.02 - SHORTNESS OF BREATH (9) Stage 4 lung cancer Code(s): C34.90 - MALIGNANT NEOPLASM OF UNSP PART OF UNSP BRONCHUS OR LUNG (10) Depression Code(s): F32.9 - MAJOR DEPRESSIVE DISORDER, SINGLE EPISODE, UNSPECIFIED (11) HTN (hypertension) Code(s): I10 - ESSENTIAL (PRIMARY) HYPERTENSION Assessment/Plan Assessment/Plan Acute Hypoxic Respiratory Failure Metastatic Lung Cancer on nivolumab COPD Pleural Effusions +Troponins likely Demand Ischemia Pulmonary HTN Rheumatoid Arthritis HTN THIAGO - prednisone at current dose - inhaled bronchodilators - O2 to keep SpO2 >90% - DVT prophylaxis Dr Sanabria
[2018-10-29] MEDS: ALPRAZolam 0.25 MG TABLET PO PRN (05:18)
[2018-10-29] MEDS: ALBUTEROL SO4 0.083% IH SOL 2.5 MG/3 ML VIAL.NEB. NEB SCH ×3 (07:30→15:32)
--- NOTE | 2018-10-29 07:40 | PN ---
Progress Note, Physician History of Present Illness: 73 yo female pmh active stage 4 lung ca sp R upper lobectomy currently on immunotherapy (1X per month as per Dr. Paige, last treatment today) htn, ra, copd, with recent admission for acute on chronic respiratory failure (DC on ) presents from [facility] for SOB. Pt states she was at her appointment for immunotherapy with Dr. Camarillo today and after treatment was instructed to head to the ER for admission for SOB. Pt admits to 2 days of worsening SOB especially with laying flat and bilateral lower limb edema. Pt did not take lasix today (40 mg daily home dose). Denies CP, palpitations, hemoptysis, F/C/N/V, calf tenderness/leg pain, changes in bowel or bladder habits. - Current Medication List Current Medications: Active Medications Acetaminophen (Tylenol -) 500 mg PO Q6H PRN PRN Reason: PAIN 6-10 Last Admin: 10/26/18 17:24 Dose: 500 mg Albuterol Sulfate (Ventolin 0.083% Nebulizer Soln -) 1 amp NEB RQID [facility] Last Admin: 10/28/18 21:05 Dose: 1 amp Alprazolam (Xanax -) 0.25 mg PO Q6H PRN PRN Reason: ANXIETY Last Admin: 10/29/18 05:18 Dose: 0.25 mg Amlodipine Besylate (Norvasc -) 5 mg PO DAILY [facility] Last Admin: 10/28/18 09:24 Dose: 5 mg Amoxicillin/Clavulanate Potassium (Augmentin - 875mg Tablet) 1 tab PO BID@0800, 1730 [facility] Last Admin: 10/28/18 17:26 Dose: 1 tab Atovaquone (Mepron -) 1,500 mg PO DAILY@0800 [facility] Last Admin: 10/28/18 09:24 Dose: 1,500 mg Buspirone HCl (Buspar -) 5 mg PO BID [facility] Last Admin: 10/28/18 22:14 Dose: 5 mg Guaifenesin (Robitussin -) 10 ml PO Q6H PRN PRN Reason: COUGH Heparin Sodium (Porcine) (Heparin -) 5,000 unit SQ BID [facility] Last Admin: 10/28/18 22:12 Dose: 5,000 unit Insulin Aspart (Novolog Vial Sliding Scale -) [address] [facility]; Protocol Last Admin: 10/28/18 22:14 Dose: Not Given Leflunomide (Arava -) 20 mg PO DAILY [facility] Last Admin: 10/28/18 09:23 Dose: 20 mg Losartan Potassium (Cozaar -) 50 mg PO DAILY [facility] Last Admin: 10/28/18 09:24 Dose: 50 mg Pantoprazole Sodium (Protonix -) 40 mg PO DAILY [facility] Last Admin: 10/28/18 09:24 Dose: 40 mg Prednisone (Deltasone -) 20 mg PO BID [facility] Last Admin: 10/28/18 22:13 Dose: 20 mg Sulfasalazine (Azulfidine En-Tabs -) 1,000 mg PO BID [facility] Last Admin: 10/28/18 22:14 Dose: 1,000 mg Zolpidem Tartrate (Ambien -) 5 mg PO HS [facility] Last Admin: 10/28/18 22:13 Dose: 5 mg - Objective Vital Signs: Vital Signs Temperature 97.5 F L 10/29/18 06:00 Pulse Rate 98 H 10/29/18 06:00 Respiratory Rate 20 10/29/18 06:00 Blood Pressure 147/91 10/29/18 06:00 O2 Sat by Pulse Oximetry (%) 97 10/28/18 21:00 Eyes: Yes: WNL, Conjunctiva Clear, EOM Intact HENT: Yes: WNL, Atraumatic, Normocephalic Neck: Yes: WNL, Supple, Trachea Midline Cardiovascular: Yes: WNL, Regular Rate and Rhythm Respiratory: Yes: Diminished, Rhonchi Gastrointestinal: Yes: WNL, Normal Bowel Sounds Genitourinary: Yes: WNL Musculoskeletal: Yes: WNL Extremities: Yes: WNL Edema: No Integumentary: Yes: WNL Neurological: Yes: WNL, Alert, Oriented ...Motor Strength: WNL Psychiatric: Yes: WNL Labs: CBC, BMP 10/27/18 07:00 10/27/18 07:00 INR, PTT INR 1.34 (0.83-1.09) H 10/24/18 13:51 Assessment/Plan 73 yo female pmh active stage 4 lung ca sp R upper lobectomy currently on immunotherapy (1X per month as per Dr. Paige, last treatment today) htn, ra, copd, with recent admission for acute on chronic respiratory failure decompensated chf echo month ago nl ef Plan oncology f/u repeat echo showed mild pericardial effusion no tamponade. will f/u
[2018-10-29] MEDS: INSULIN SLIDING SCALE (NOVOLOG) 1 VIAL SQ SCH ×4 (08:23→22:27)
[2018-10-29] MEDS ORDERED: PT OWN MED DRAWER 7, Y5N ONE ×3 (08:37→22:14)
[2018-10-29] MEDS: ATOVAQUONE 750 MG/5 ML (UNIT-DOSE PACKAGING) PO SCH (08:43)
[2018-10-29] MEDS: AMOX TR/POT CLAV 875MG/125MG TABLETS (FP) PO SCH ×2 (08:43→17:32)
[2018-10-29] MEDS: busPIRone HCL 5 MG TABLET PO SCH ×2 (09:39→22:38)
[2018-10-29] MEDS: PANTOPRAZOLE 40 MG TABLET (FP) PO SCH (09:40)
[2018-10-29] MEDS: predniSONE 20 MG TABLET (UD) PO SCH ×2 (09:40→22:38)
[2018-10-29] MEDS: HEPARIN NA (PORCINE) 5,000 UNITS/ML 1ML VIAL SQ SCH ×2 (09:40→22:39)
[2018-10-29] MEDS: amLODIPine BESYLATE 5 MG TABLET (FP) PO SCH (09:40)
[2018-10-29] MEDS: LOSARTAN POTASSIUM 50 MG TABLET (FP) PO SCH (09:40)
[2018-10-29] MEDS: LEFLUNOMIDE 10 MG TABLET PO SCH (09:42)
--- NOTE | 2018-10-29 11:04 | PN ---
Progress Note, Physician Chief Complaint: pulmonary alert,feeling better,less dyspneic - Current Medication List Current Medications: Active Medications Acetaminophen (Tylenol -) 500 mg PO Q6H PRN PRN Reason: PAIN 6-10 Last Admin: 10/26/18 17:24 Dose: 500 mg Albuterol Sulfate (Ventolin 0.083% Nebulizer Soln -) 1 amp NEB RQID [facility] Last Admin: 10/29/18 07:30 Dose: Not Given Amlodipine Besylate (Norvasc -) 5 mg PO DAILY [facility] Last Admin: 10/29/18 09:40 Dose: 5 mg Amoxicillin/Clavulanate Potassium (Augmentin - 875mg Tablet) 1 tab PO BID@0800, 1730 [facility] Last Admin: 10/29/18 08:43 Dose: 1 tab Atovaquone (Mepron -) 1,500 mg PO DAILY@0800 [facility] Last Admin: 10/29/18 08:43 Dose: 1,500 mg Buspirone HCl (Buspar -) 5 mg PO BID [facility] Last Admin: 10/29/18 09:39 Dose: 5 mg Guaifenesin (Robitussin -) 10 ml PO Q6H PRN PRN Reason: COUGH Heparin Sodium (Porcine) (Heparin -) 5,000 unit SQ BID [facility] Last Admin: 10/29/18 09:40 Dose: 5,000 unit Insulin Aspart (Novolog Vial Sliding Scale -) 1 vial SQ [facility]; Protocol Last Admin: 10/29/18 08:23 Dose: Not Given Leflunomide (Arava -) 20 mg PO DAILY [facility] Last Admin: 10/29/18 09:42 Dose: 20 mg Losartan Potassium (Cozaar -) 50 mg PO DAILY [facility] Last Admin: 10/29/18 09:40 Dose: 50 mg Pantoprazole Sodium (Protonix -) 40 mg PO DAILY [facility] Last Admin: 10/29/18 09:40 Dose: 40 mg Prednisone (Deltasone -) 20 mg PO BID [facility] Last Admin: 10/29/18 09:40 Dose: 20 mg Sulfasalazine (Azulfidine En-Tabs -) 1,000 mg PO BID [facility] Last Admin: 10/29/18 09:39 Dose: 1,000 mg Zolpidem Tartrate (Ambien -) 5 mg PO HS [facility] Last Admin: 10/28/18 22:13 Dose: 5 mg - Objective Vital Signs: Vital Signs Temperature 98.4 F 10/29/18 10:33 Pulse Rate 120 H 10/29/18 10:33 Respiratory Rate 24 H 10/29/18 10:33 Blood Pressure 152/95 10/29/18 10:33 O2 Sat by Pulse Oximetry (%) 94 L 10/29/18 09:00 Constitutional: Yes: Well Nourished, Calm Eyes: Yes: WNL HENT: Yes: WNL Neck: Yes: WNL Cardiovascular: Yes: Regular Rate and Rhythm, S1, S2 Respiratory: Yes: Rhonchi (few scattered rhonchi) Gastrointestinal: Yes: Normal Bowel Sounds, Soft Extremities: Yes: WNL Edema: No Labs: CBC, BMP 10/27/18 07:00 10/27/18 07:00 INR, PTT INR 1.34 (0.83-1.09) H 10/24/18 13:51 Problem List - Problems (1) THIAGO (acute kidney injury) Code(s): N17.9 - ACUTE KIDNEY FAILURE, UNSPECIFIED (2) Acute on chronic respiratory failure with hypoxemia Code(s): J96.21 - ACUTE AND CHRONIC RESPIRATORY FAILURE WITH HYPOXIA (3) COPD (chronic obstructive pulmonary disease) Code(s): J44.9 - CHRONIC OBSTRUCTIVE PULMONARY DISEASE, UNSPECIFIED (4) GERD (gastroesophageal reflux disease) Code(s): K21.9 - GASTRO-ESOPHAGEAL REFLUX DISEASE WITHOUT ESOPHAGITIS (5) Metastatic lung cancer (metastasis from lung to other site) Code(s): C34.90 - MALIGNANT NEOPLASM OF UNSP PART OF UNSP BRONCHUS OR LUNG (6) Rheumatoid arthritis Code(s): M06.9 - RHEUMATOID ARTHRITIS, UNSPECIFIED (7) SCC (squamous cell carcinoma of lung) Code(s): C34.90 - MALIGNANT NEOPLASM OF UNSP PART OF UNSP BRONCHUS OR LUNG (8) SOB (shortness of breath) Code(s): R06.02 - SHORTNESS OF BREATH (9) Stage 4 lung cancer Code(s): C34.90 - MALIGNANT NEOPLASM OF UNSP PART OF UNSP BRONCHUS OR LUNG (10) Depression Code(s): F32.9 - MAJOR DEPRESSIVE DISORDER, SINGLE EPISODE, UNSPECIFIED (11) HTN (hypertension) Code(s): I10 - ESSENTIAL (PRIMARY) HYPERTENSION Assessment/Plan Assessment/Plan Acute Hypoxic Respiratory Failure inproved Metastatic Lung Cancer on nivolumab COPD Pleural Effusions +Troponins likely Demand Ischemia Pulmonary HTN Rheumatoid Arthritis HTN THIAGO - LE dopplers to r/o DVT pt refuses - prednisone - inhaled bronchodilators - O2 to keep SpO2 >90% - DVT prophylaxis - outpatient pulmonary rehab DR KERR
--- NOTE | 2018-10-29 12:56 | DS ---
Physical Examination Vital Signs: Vital Signs Temperature 98.4 F 10/29/18 10:33 Pulse Rate 120 H 10/29/18 10:33 Respiratory Rate 24 H 10/29/18 10:33 Blood Pressure 152/95 10/29/18 10:33 O2 Sat by Pulse Oximetry (%) 94 L 10/29/18 09:00 Constitutional: Yes: Calm Cardiovascular: Yes: Regular Rate and Rhythm, S1, S2 Respiratory: Yes: CTA Bilaterally (distant breath sounds) Gastrointestinal: Yes: Normal Bowel Sounds, Soft Edema: Yes (much improved) Neurological: Yes: Alert, Oriented Labs: CBC, BMP 10/27/18 07:00 10/27/18 07:00 Discharge Summary Reason For Visit: ACUTE EXACERBATION OF CHRONIC OBSTRUCTIVE PULMONAR Current Active Problems COPD exacerbation (Acute) Elevated troponin (Acute) Shortness of breath (Acute) Other Procedures: chest CT diffuse metastatic disease Hospital Course: Primary Care Physician PCP: Juventino Ruby I - Admission Chief Complaint: SOB History of Present Illness: Patient is a 73 y/o female with past medical history of Lung CA stage 4 (on Immunotherapy), HTN, RA, COPD. Patient states she has been experiencing worsening SOB for about 1 week. She presented to [facility] today for her immunotherapy appointment today where she was seen by Dr. Camarillo and he stated she should go down to ER for further evaluation. Denies chest pain, palpitations, or dizziness with SOB. started on augmentin nad prednisone dose increased got lasix Condition: Improved - Instructions Diet, Activity, Other Instructions: complete 7 days of antibiotic Disposition: CUSTODIAL FACILITY - Home Medications Comprehensive Discharge Medication List: Ambulatory Orders Alprazolam [Xanax] 0.25 mg PO DAILY 06/15/18 Losartan Potassium [Cozaar -] 50 mg PO DAILY 06/15/18 Pantoprazole Sodium [Protonix -] 40 mg PO DAILY 06/15/18 Zolpidem Tartrate [Ambien] 10 mg PO DAILY 06/15/18 Acetaminophen [Tylenol .Extra-Strength -] 500 mg PO Q6H PRN tablet 06/19/18 Atovaquone [Mepron Oral Solution -] 1,500 mg PO DAILY@0800 #1 bottle 06/19/18 Albuterol Sulfate Inhaler - [Ventolin HFA Inhaler -] 2 puff IH Q6H PRN inhaler 06/25/18 Amlodipine Besylate [Norvasc -] 5 mg PO DAILY tablet 06/25/18 Leflunomide [Arava -] 20 mg PO DAILY #60 tablet 06/25/18 Sulfasalazine [Azulfidine En-Tabs -] 1,000 mg PO BID #120 tablet. 06/25/18 traMADol HCL [Ultram -] 50 mg PO Q8H PRN tablet MDD 3 06/25/18 Furosemide [Lasix -] 20 mg PO DAILY #30 tablet 08/29/18 predniSONE [Deltasone -] 20 mg PO DAILY #14 tablet 09/20/18 Albuterol 0.083% Nebulizer Yudy [Ventolin 0.083% Nebulizer Soln -] 1 amp NEB RQID amp 09/24/18 Guaifenesin [Robitussin -] 10 ml PO Q6H PRN cup 09/24/18 Acetylcysteine Po/INH 20% [Mucomyst 20 Oral / INH Use Only*] 200 mg NEB RQID vial 10/03/18 Heparin - 5,000 unit SQ BID vial 10/03/18 Selin-Cath Flush [Selin-Cath Flush -] 10 ml IVPUSH PRN PRN ml 10/03/18 Buspirone HCl [Buspar -] 5 mg PO BID tablet 10/10/18
[2018-10-29] MEDS ORDERED: ALPRAZolam 0.25 MG TABLET PO PRN (18:04)
--- NOTE | 2018-10-29 22:13 | PN ---
Progress Note (short form) - Note Progress Note: Patient seen and examined c/o shortness of breath Last Vital Signs Temp Pulse Resp BP Pulse Ox 98.4 F 104 H 18 132/92 94 L 10/30/18 01:00 10/30/18 01:00 10/30/18 01:00 10/30/18 01:00 10/29/18 21:00 Cor: RSR, No murmurs, No gallops Lungs: Clear to P&A Abd: Soft, Normal bowel sounds, No organomegaly Ext:No significant edema Labs/Meds reviewed A/P 73 y/o patient with metastatic squamous cell lung cance, s/p multiplelines of therapy, on nivolumab CT scan shows progressive lung mets/ hepatic mets Patient is DNR/DNI will request palliative care consult
[2018-10-29] MEDS ORDERED: ZOLPIDEM TARTRATE 5 MG TABLET PO PRN (22:15)
[2018-10-29] MEDS: ZOLPIDEM TARTRATE 5 MG TABLET PO SCH (22:28)
[2018-10-30] MEDS: ALPRAZolam 0.25 MG TABLET PO PRN ×2 (00:32→09:33)
[2018-10-30] MEDS: ZOLPIDEM TARTRATE 5 MG TABLET PO PRN (00:32)
[2018-10-30] MEDS ORDERED: ALBUTEROL SO4 0.083% IH SOL 2.5 MG/3 ML VIAL.NEB. NEB ONE (01:42)
[2018-10-30] MEDS: ALBUTEROL SO4 0.083% IH SOL 2.5 MG/3 ML VIAL.NEB. NEB PRN (04:57)
[2018-10-30] MEDS: INSULIN SLIDING SCALE (NOVOLOG) 1 VIAL SQ SCH ×4 (06:29→22:09)
[2018-10-30] MEDS ORDERED: FUROSEMIDE 40 MG/4 ML INJECTABLE VIAL IVPUSH ONE (08:53)
[2018-10-30] MEDS ORDERED: methylPREDNISolone NA SUCC 125 MG/2 ML VIAL IVPUSH ONE (08:53)
--- NOTE | 2018-10-30 08:54 | PN ---
Progress Note, Physician - Current Medication List Current Medications: Active Medications Acetaminophen (Tylenol -) 500 mg PO Q6H PRN PRN Reason: PAIN 6-10 Last Admin: 10/26/18 17:24 Dose: 500 mg Albuterol Sulfate (Ventolin 0.083% Nebulizer Soln -) 1 amp NEB Q6H PRN PRN Reason: SHORT OF BREATH/WHEEZING Last Admin: 10/30/18 04:57 Dose: 1 amp Alprazolam (Xanax -) 0.5 mg PO Q12H PRN PRN Reason: ANXIETY Last Admin: 10/30/18 00:32 Dose: 0.5 mg Amlodipine Besylate (Norvasc -) 5 mg PO DAILY [facility] Last Admin: 10/29/18 09:40 Dose: 5 mg Amoxicillin/Clavulanate Potassium (Augmentin - 875mg Tablet) 1 tab PO BID@0800, 1730 [facility] Last Admin: 10/29/18 17:32 Dose: 1 tab Atovaquone (Mepron -) 1,500 mg PO DAILY@0800 [facility] Last Admin: 10/29/18 08:43 Dose: 1,500 mg Buspirone HCl (Buspar -) 5 mg PO BID [facility] Last Admin: 10/29/18 22:38 Dose: 5 mg Furosemide (Lasix Injection -) 40 mg IVPUSH ONCE ONE Stop: 10/30/18 08:54 Guaifenesin (Robitussin -) 10 ml PO Q6H PRN PRN Reason: COUGH Heparin Sodium (Porcine) (Heparin -) 5,000 unit SQ BID [facility] Last Admin: 10/29/18 22:39 Dose: 5,000 unit Insulin Aspart (Novolog Vial Sliding Scale -) 1 vial SQ ACHS [facility]; Protocol Last Admin: 10/30/18 06:29 Dose: Not Given Leflunomide (Arava -) 20 mg PO DAILY [facility] Last Admin: 10/29/18 09:42 Dose: 20 mg Losartan Potassium (Cozaar -) 50 mg PO DAILY [facility] Last Admin: 10/29/18 09:40 Dose: 50 mg Methylprednisolone Sodium Succinate (Solu-Medrol -) 125 mg IVPUSH ONCE ONE Stop: 10/30/18 08:54 Methylprednisolone Sodium Succinate (Solu-Medrol -) 40 mg IVPUSH Q6H-IV [facility] Pantoprazole Sodium (Protonix -) 40 mg PO DAILY [facility] Last Admin: 10/29/18 09:40 Dose: 40 mg Sulfasalazine (Azulfidine En-Tabs -) 1,000 mg PO BID [facility] Last Admin: 10/29/18 22:38 Dose: 1,000 mg Zolpidem Tartrate (Ambien -) 10 mg PO HS PRN PRN Reason: INSOMNIA Last Admin: 10/30/18 00:32 Dose: 10 mg - Objective Vital Signs: Vital Signs Temperature 97.5 F L 10/30/18 06:40 Pulse Rate 109 H 10/30/18 06:40 Respiratory Rate 18 10/30/18 06:40 Blood Pressure 156/78 10/30/18 06:40 O2 Sat by Pulse Oximetry (%) 94 L 10/29/18 21:00 Cardiovascular: Yes: Tachycardia, S1, S2 Respiratory: Yes: Diminished, On Nasal O2, Rhonchi, SOB, Wheezes Gastrointestinal: Yes: Normal Bowel Sounds, Soft Labs: CBC, BMP 10/27/18 07:00 10/27/18 07:00 INR, PTT INR 1.34 (0.83-1.09) H 10/24/18 13:51 Problem List - Problems (1) COPD exacerbation Assessment/Plan: chest ct noted prednsione--to iv solumerol oxygen bronchodilators Seen by pulmonary--follow up cxr iv lasix stat labs Code(s): J44.1 - CHRONIC OBSTRUCTIVE PULMONARY DISEASE W (ACUTE) EXACERBATION (2) Diabetes Code(s): E11.9 - TYPE 2 DIABETES MELLITUS WITHOUT COMPLICATIONS (3) Metastatic lung cancer (metastasis from lung to other site) Assessment/Plan: oncology on board dvt ppx Code(s): C34.90 - MALIGNANT NEOPLASM OF UNSP PART OF UNSP BRONCHUS OR LUNG
[2018-10-30] MEDS ORDERED: PT OWN MED DRAWER 7, Y5N ONE ×5 (09:11→22:11)
[2018-10-30] MEDS: HEPARIN NA (PORCINE) 5,000 UNITS/ML 1ML VIAL SQ SCH ×2 (09:31→22:13)
[2018-10-30] MEDS: PANTOPRAZOLE 40 MG TABLET (FP) PO SCH (09:32)
[2018-10-30] MEDS: AMOX TR/POT CLAV 875MG/125MG TABLETS (FP) PO SCH ×2 (09:32→17:15)
[2018-10-30] MEDS: LOSARTAN POTASSIUM 50 MG TABLET (FP) PO SCH (09:32)
[2018-10-30] MEDS: amLODIPine BESYLATE 5 MG TABLET (FP) PO SCH (09:32)
[2018-10-30] MEDS: methylPREDNISolone NA SUCC 40 MG/1 ML VIAL IVPUSH SCH ×3 (09:33→22:13)
[2018-10-30 10:10] LABS: BASO % 0.2 % (0-2.0); HEMATOCRIT 25.3 % (32.4-45.2); HEMOGLOBIN 8.1 GM/dL (10.7-15.3); MCHC 31.8 g/dl (32.0-36.0); MEAN CELL VOLUME 94.2 fl (80-96); MEAN PLT VOLUME 7.7 fl (7.5-11.1); MONO % 5.6 % (3.8-10.2); NEUT % 88.2 % (42.8-82.8); PLATELET COUNT 251 K/MM3 (134-434); RBC 2.69 M/mm3 (3.60-5.2); RDW 18.5 % (11.6-15.6); WHITE BLOOD COUNT 9.9 K/mm3 (4.0-10.0)
--- NOTE | 2018-10-30 10:42 | EKG ---
Test Reason : Blood Pressure : / mmHG Vent. Rate : 102 BPM Atrial Rate : 102 BPM P-R Int : 140 ms QRS Dur : 080 ms QT Int : 334 ms P-R-T Axes : 053 037 165 degrees QTc Int : 435 ms SINUS TACHYCARDIA WITH OCCASIONAL PREMATURE VENTRICULAR COMPLEXES ABNORMAL ECG WHEN COMPARED WITH ECG OF 24-OCT-2018 12:58, ST NOW DEPRESSED IN ANTEROLATERAL LEADS T WAVE INVERSION NOW EVIDENT IN ANTEROLATERAL LEADS PATIENT SITTING IN CHAIR DURING EKG Confirmed by MD Elroy, Juan C ([id number]) on 10/30/2018 10:42:06 AM Referred By: Anh DICKERSON Confirmed By:Juan C Abbasi MD
[2018-10-30 10:47] LABS: ALBUMIN 2.8 g/dl (3.4-5.0); BILIRUBIN,TOTAL 0.5 mg/dL (0.2-1); BLOOD UREA NITROGEN 22.1 mg/dL (7-18); CALCIUM 9.1 mg/dL (8.5-10.1); N-TERMINAL BNP 3999.7 pg/ml (5-125); POTASSIUM 4.1 mmol/L (3.5-5.1); TOT PROT 5.6 g/dl (6.4-8.2)
[2018-10-30] MEDS: ATOVAQUONE 750 MG/5 ML (UNIT-DOSE PACKAGING) PO SCH (11:17)
[2018-10-30] MEDS: LEFLUNOMIDE 10 MG TABLET PO SCH (11:18)
--- NOTE | 2018-10-30 11:34 | PN ---
Progress Note, Physician History of Present Illness: pulmonary awake oob-chair, had icreased sob last night,currently less dyspneic. - Current Medication List Current Medications: Active Medications Acetaminophen (Tylenol -) 500 mg PO Q6H PRN PRN Reason: PAIN 6-10 Last Admin: 10/26/18 17:24 Dose: 500 mg Albuterol Sulfate (Ventolin 0.083% Nebulizer Soln -) 1 amp NEB Q6H PRN PRN Reason: SHORT OF BREATH/WHEEZING Last Admin: 10/30/18 04:57 Dose: 1 amp Alprazolam (Xanax -) 0.5 mg PO Q12H PRN PRN Reason: ANXIETY Last Admin: 10/30/18 09:33 Dose: 0.5 mg Amlodipine Besylate (Norvasc -) 5 mg PO DAILY [facility] Last Admin: 10/30/18 09:32 Dose: 5 mg Amoxicillin/Clavulanate Potassium (Augmentin - 875mg Tablet) 1 tab PO BID@0800, 1730 [facility] Last Admin: 10/30/18 09:32 Dose: 1 tab Atovaquone (Mepron -) 1,500 mg PO DAILY@0800 [facility] Last Admin: 10/30/18 11:17 Dose: 1,500 mg Buspirone HCl (Buspar -) 5 mg PO BID [facility] Last Admin: 10/29/18 22:38 Dose: 5 mg Guaifenesin (Robitussin -) 10 ml PO Q6H PRN PRN Reason: COUGH Heparin Sodium (Porcine) (Heparin -) 5,000 unit SQ BID [facility] Last Admin: 10/30/18 09:31 Dose: 5,000 unit Insulin Aspart (Novolog Vial Sliding Scale -) 1 vial SQ ACHS [facility]; Protocol Last Admin: 10/30/18 06:29 Dose: Not Given Leflunomide (Arava -) 20 mg PO DAILY [facility] Last Admin: 10/30/18 11:18 Dose: 20 mg Losartan Potassium (Cozaar -) 50 mg PO DAILY [facility] Last Admin: 10/30/18 09:32 Dose: 50 mg Methylprednisolone Sodium Succinate (Solu-Medrol -) 40 mg IVPUSH Q6H-IV [facility] Last Admin: 10/30/18 09:33 Dose: Not Given Pantoprazole Sodium (Protonix -) 40 mg PO DAILY [facility] Last Admin: 10/30/18 09:32 Dose: 40 mg Sulfasalazine (Azulfidine En-Tabs -) 1,000 mg PO BID [facility] Last Admin: 10/30/18 11:17 Dose: 1,000 mg Zolpidem Tartrate (Ambien -) 10 mg PO HS PRN PRN Reason: INSOMNIA Last Admin: 10/30/18 00:32 Dose: 10 mg - Objective Vital Signs: Vital Signs Temperature 97.5 F L 10/30/18 06:40 Pulse Rate 109 H 10/30/18 06:40 Respiratory Rate 18 10/30/18 06:40 Blood Pressure 156/78 10/30/18 06:40 O2 Sat by Pulse Oximetry (%) 94 L 10/29/18 21:00 Constitutional: Yes: Well Nourished, Calm Eyes: Yes: WNL HENT: Yes: WNL Neck: Yes: WNL Cardiovascular: Yes: Regular Rate and Rhythm, S1, S2 Respiratory: Yes: Diminished Gastrointestinal: Yes: Normal Bowel Sounds, Soft Extremities: Yes: WNL Edema: No Labs: CBC, BMP 10/30/18 09:40 10/30/18 09:40 INR, PTT INR 1.34 (0.83-1.09) H 10/24/18 13:51 Problem List - Problems (1) THIAGO (acute kidney injury) Code(s): N17.9 - ACUTE KIDNEY FAILURE, UNSPECIFIED (2) Acute on chronic respiratory failure with hypoxemia Code(s): J96.21 - ACUTE AND CHRONIC RESPIRATORY FAILURE WITH HYPOXIA (3) COPD (chronic obstructive pulmonary disease) Code(s): J44.9 - CHRONIC OBSTRUCTIVE PULMONARY DISEASE, UNSPECIFIED (4) GERD (gastroesophageal reflux disease) Code(s): K21.9 - GASTRO-ESOPHAGEAL REFLUX DISEASE WITHOUT ESOPHAGITIS (5) Metastatic lung cancer (metastasis from lung to other site) Code(s): C34.90 - MALIGNANT NEOPLASM OF UNSP PART OF UNSP BRONCHUS OR LUNG (6) Rheumatoid arthritis Code(s): M06.9 - RHEUMATOID ARTHRITIS, UNSPECIFIED (7) SCC (squamous cell carcinoma of lung) Code(s): C34.90 - MALIGNANT NEOPLASM OF UNSP PART OF UNSP BRONCHUS OR LUNG (8) SOB (shortness of breath) Code(s): R06.02 - SHORTNESS OF BREATH (9) Stage 4 lung cancer Code(s): C34.90 - MALIGNANT NEOPLASM OF UNSP PART OF UNSP BRONCHUS OR LUNG (10) Depression Code(s): F32.9 - MAJOR DEPRESSIVE DISORDER, SINGLE EPISODE, UNSPECIFIED (11) HTN (hypertension) Code(s): I10 - ESSENTIAL (PRIMARY) HYPERTENSION Assessment/Plan Assessment/Plan Acute Hypoxic Respiratory Failure improved Metastatic Lung Cancer on nivolumab COPD Pleural Effusions +Troponins likely Demand Ischemia Pulmonary HTN Rheumatoid Arthritis HTN THIAGO - LE dopplers to r/o DVT pt refuses - steroids - inhaled bronchodilators - O2 to keep SpO2 >90% - DVT prophylaxis - outpatient pulmonary rehab DR KERR
[2018-10-30] MEDS: busPIRone HCL 5 MG TABLET PO SCH (14:09)
[2018-10-31] MEDS: ALPRAZolam 0.25 MG TABLET PO PRN (01:18)
[2018-10-31] MEDS: ZOLPIDEM TARTRATE 5 MG TABLET PO PRN (01:18)
[2018-10-31] MEDS: busPIRone HCL 5 MG TABLET PO SCH ×3 (01:18→23:11)
[2018-10-31] MEDS: methylPREDNISolone NA SUCC 40 MG/1 ML VIAL IVPUSH SCH (06:16)
[2018-10-31] MEDS: INSULIN SLIDING SCALE (NOVOLOG) 1 VIAL SQ SCH ×3 (06:19→18:16)
[2018-10-31] MEDS: ATOVAQUONE 750 MG/5 ML (UNIT-DOSE PACKAGING) PO SCH (08:00)
--- NOTE | 2018-10-31 09:00 | PN ---
Progress Note, Physician - Current Medication List Current Medications: Active Medications Acetaminophen (Tylenol -) 500 mg PO Q6H PRN PRN Reason: PAIN 6-10 Last Admin: 10/26/18 17:24 Dose: 500 mg Albuterol Sulfate (Ventolin 0.083% Nebulizer Soln -) 1 amp NEB Q6H PRN PRN Reason: SHORT OF BREATH/WHEEZING Last Admin: 10/30/18 04:57 Dose: 1 amp Alprazolam (Xanax -) 0.5 mg PO Q12H PRN PRN Reason: ANXIETY Last Admin: 10/31/18 01:18 Dose: 0.5 mg Amlodipine Besylate (Norvasc -) 5 mg PO DAILY [facility] Last Admin: 10/30/18 09:32 Dose: 5 mg Amoxicillin/Clavulanate Potassium (Augmentin - 875mg Tablet) 1 tab PO BID@0800, 1730 [facility] Last Admin: 10/30/18 17:15 Dose: 1 tab Atovaquone (Mepron -) 1,500 mg PO DAILY@0800 [facility] Last Admin: 10/30/18 11:17 Dose: 1,500 mg Buspirone HCl (Buspar -) 5 mg PO BID [facility] Last Admin: 10/31/18 01:18 Dose: 5 mg Furosemide (Lasix -) 20 mg PO DAILY [facility] Guaifenesin (Robitussin -) 10 ml PO Q6H PRN PRN Reason: COUGH Heparin Sodium (Porcine) (Heparin -) 5,000 unit SQ BID [facility] Last Admin: 10/30/18 22:13 Dose: 5,000 unit Insulin Aspart (Novolog Vial Sliding Scale -) 1 vial SQ ACHS [facility]; Protocol Last Admin: 10/31/18 06:19 Dose: Not Given Leflunomide (Arava -) 20 mg PO DAILY [facility] Last Admin: 10/30/18 11:18 Dose: 20 mg Losartan Potassium (Cozaar -) 50 mg PO DAILY [facility] Last Admin: 10/30/18 09:32 Dose: 50 mg Methylprednisolone Sodium Succinate (Solu-Medrol -) 40 mg IVPUSH TID [facility] Pantoprazole Sodium (Protonix -) 40 mg PO DAILY [facility] Last Admin: 10/30/18 09:32 Dose: 40 mg Sulfasalazine (Azulfidine En-Tabs -) 1,000 mg PO BID [facility] Last Admin: 09/17/19 22:13 Dose: 1,000 mg Zolpidem Tartrate (Ambien -) 10 mg PO HS PRN PRN Reason: INSOMNIA Last Admin: 10/31/18 01:18 Dose: 10 mg - Objective Vital Signs: Vital Signs Temperature 97.8 F 10/31/18 06:00 Pulse Rate 97 H 10/31/18 06:00 Respiratory Rate 20 10/31/18 06:00 Blood Pressure 140/87 10/31/18 06:00 O2 Sat by Pulse Oximetry (%) 96 10/30/18 21:00 Cardiovascular: Yes: S1, S2 Respiratory: Yes: On Nasal O2, Rhonchi Gastrointestinal: Yes: Normal Bowel Sounds, Soft Labs: CBC, BMP 10/30/18 09:40 10/30/18 09:40 INR, PTT INR 1.34 (0.83-1.09) H 10/24/18 13:51 Problem List - Problems (1) COPD exacerbation Assessment/Plan: chest ct noted prednsione--to iv solumerol 40 tid oxygen bronchodilators Seen by pulmonary--follow up cxr iv lasix--po lasix 20 qd stat labs Code(s): J44.1 - CHRONIC OBSTRUCTIVE PULMONARY DISEASE W (ACUTE) EXACERBATION (2) Diabetes Code(s): E11.9 - TYPE 2 DIABETES MELLITUS WITHOUT COMPLICATIONS (3) Metastatic lung cancer (metastasis from lung to other site) Assessment/Plan: oncology on board dvt ppx Code(s): C34.90 - MALIGNANT NEOPLASM OF UNSP PART OF UNSP BRONCHUS OR LUNG
--- NOTE | 2018-10-31 09:56 | PN ---
Progress Note, Physician Chief Complaint: Pt A&Ox3; sitting up in bed; c/o SOB jus walking a few steps to the bathroom, and it panics her (she has been markedly short of breath on minimal exertion for the past 3 months). No chest pain. History of Present Illness: The patient is a 73 year old black woman with a past medical history of stage 4 lung cancer (s/p right upper lobe removal, currently on immunotherapy), diastolic CHF, and COPD (5L at home; quit smoking cigareettes bout 3 months ago) ) here today for evaluation of shortness of breath. The patient was recently discharged to the [facility] on 10/16/[address] Camarillo when she was sent in. She notes that she has had worsening shortness of breath and orthopnea over the past few days. Patient denies headache, lightheadedness. Denies fever, chills. Denies chest pain. Allergies: aspirin PCP: Juventino Ruby Oncologist: Humza Camarillo - Current Medication List Current Medications: Active Medications Acetaminophen (Tylenol -) 500 mg PO Q6H PRN PRN Reason: PAIN 6-10 Last Admin: 10/26/18 17:24 Dose: 500 mg Albuterol Sulfate (Ventolin 0.083% Nebulizer Soln -) 1 amp NEB Q6H PRN PRN Reason: SHORT OF BREATH/WHEEZING Last Admin: 10/30/18 04:57 Dose: 1 amp Alprazolam (Xanax -) 0.5 mg PO Q12H PRN PRN Reason: ANXIETY Last Admin: 10/31/18 01:18 Dose: 0.5 mg Amlodipine Besylate (Norvasc -) 5 mg PO DAILY [facility] Last Admin: 10/30/18 09:32 Dose: 5 mg Amoxicillin/Clavulanate Potassium (Augmentin - 875mg Tablet) 1 tab PO BID@0800, 1730 [facility] Last Admin: 10/30/18 17:15 Dose: 1 tab Atovaquone (Mepron -) 1,500 mg PO DAILY@0800 [facility] Last Admin: 10/30/18 11:17 Dose: 1,500 mg Buspirone HCl (Buspar -) 5 mg PO BID [facility] Last Admin: 10/31/18 01:18 Dose: 5 mg Furosemide (Lasix -) 20 mg PO DAILY [facility] Guaifenesin (Robitussin -) 10 ml PO Q6H PRN PRN Reason: COUGH Heparin Sodium (Porcine) (Heparin -) 5,000 unit SQ BID [facility] Last Admin: 10/30/18 22:13 Dose: 5,000 unit Insulin Aspart (Novolog Vial Sliding Scale -) 1 vial SQ ACHS [facility]; Protocol Last Admin: 10/31/18 06:19 Dose: Not Given Leflunomide (Arava -) 20 mg PO DAILY [facility] Last Admin: 10/30/18 11:18 Dose: 20 mg Losartan Potassium (Cozaar -) 50 mg PO DAILY [facility] Last Admin: 10/30/18 09:32 Dose: 50 mg Methylprednisolone Sodium Succinate (Solu-Medrol -) 40 mg IVPUSH TID [facility] Pantoprazole Sodium (Protonix -) 40 mg PO DAILY [facility] Last Admin: 10/30/18 09:32 Dose: 40 mg Sulfasalazine (Azulfidine En-Tabs -) 1,000 mg PO BID [facility] Last Admin: 10/30/18 22:13 Dose: 1,000 mg Zolpidem Tartrate (Ambien -) 10 mg PO HS PRN PRN Reason: INSOMNIA Last Admin: 10/31/18 01:18 Dose: 10 mg - Objective Vital Signs: Vital Signs Temperature 97.8 F 10/31/18 06:00 Pulse Rate 97 H 10/31/18 06:00 Respiratory Rate 20 10/31/18 06:00 Blood Pressure 140/87 10/31/18 06:00 O2 Sat by Pulse Oximetry (%) 96 10/30/18 21:00 Constitutional: Yes: Anxious Eyes: Yes: WNL HENT: Yes: WNL Neck: Yes: WNL Cardiovascular: Yes: S1, S2 Respiratory: Yes: Diminished, SOB on Exertion Gastrointestinal: Yes: Soft ...Rectal Exam: Yes: Deferred Genitourinary: No: Anuria Breast(s): Yes: WNL Musculoskeletal: Yes: Joint Stiffness, Muscle Pain, Muscle Weakness Extremities: Yes: WNL Edema: No Peripheral Pulses WNL: Yes Integumentary: Yes: WNL Neurological: Yes: Alert, Oriented ...Motor Strength: WNL Psychiatric: Yes: Alert, Oriented Labs: CBC, BMP 10/30/18 09:40 10/30/18 09:40 INR, PTT INR 1.34 (0.83-1.09) H 10/24/18 13:51 Laboratory Results - last 24 hr 11/01/18 06:15 POC Glucometer 147 Problem List - Problems (1) COPD (chronic obstructive pulmonary disease) Assessment/Plan: bronchodilators, steroids, antibiotics per ID, rn or lvn. Code(s): J44.9 - CHRONIC OBSTRUCTIVE PULMONARY DISEASE, UNSPECIFIED (2) Metastatic lung cancer (metastasis from lung to other site) Assessment/Plan: F/u [facility] oncologist Code(s): C34.90 - MALIGNANT NEOPLASM OF UNSP PART OF UNSP BRONCHUS OR LUNG (3) Elevated troponin Code(s): R74.8 - ABNORMAL LEVELS OF OTHER SERUM ENZYMES (4) Acute on chronic diastolic CHF (congestive heart failure) Assessment/Plan: On furosemide IV prn. F/u BUn/Cr, electrolytes, Is and Os, daily weight. Code(s): I50.33 - ACUTE ON CHRONIC DIASTOLIC (CONGESTIVE) HEART FAILURE
[2018-10-31] MEDS: PANTOPRAZOLE 40 MG TABLET (FP) PO SCH (09:59)
[2018-10-31] MEDS: amLODIPine BESYLATE 5 MG TABLET (FP) PO SCH (10:00)
[2018-10-31] MEDS: AMOX TR/POT CLAV 875MG/125MG TABLETS (FP) PO SCH ×2 (10:00→18:11)
[2018-10-31] MEDS: FUROSEMIDE 20 MG TABLET (FP) PO SCH (10:00)
[2018-10-31] MEDS: HEPARIN NA (PORCINE) 5,000 UNITS/ML 1ML VIAL SQ SCH (10:00)
[2018-10-31] MEDS: LOSARTAN POTASSIUM 50 MG TABLET (FP) PO SCH (10:00)
[2018-10-31] MEDS: LEFLUNOMIDE 10 MG TABLET PO SCH (10:09)
--- NOTE | 2018-10-31 11:11 | PN ---
Progress Note, Physician History of Present Illness: pulmonary alert,oob-chair,feeling better less dyspneic - Current Medication List Current Medications: Active Medications Acetaminophen (Tylenol -) 500 mg PO Q6H PRN PRN Reason: PAIN 6-10 Last Admin: 10/26/18 17:24 Dose: 500 mg Albuterol Sulfate (Ventolin 0.083% Nebulizer Soln -) 1 amp NEB Q6H PRN PRN Reason: SHORT OF BREATH/WHEEZING Last Admin: 10/30/18 04:57 Dose: 1 amp Alprazolam (Xanax -) 0.5 mg PO Q12H PRN PRN Reason: ANXIETY Last Admin: 10/31/18 01:18 Dose: 0.5 mg Amlodipine Besylate (Norvasc -) 5 mg PO DAILY [facility] Last Admin: 10/31/18 10:00 Dose: 5 mg Amoxicillin/Clavulanate Potassium (Augmentin - 875mg Tablet) 1 tab PO BID@0800, 1730 [facility] Last Admin: 10/31/18 10:00 Dose: 1 tab Atovaquone (Mepron -) 1,500 mg PO DAILY@0800 [facility] Last Admin: 10/31/18 08:00 Dose: 1,500 mg Buspirone HCl (Buspar -) 5 mg PO BID [facility] Last Admin: 10/31/18 09:59 Dose: 5 mg Furosemide (Lasix -) 20 mg PO DAILY [facility] Last Admin: 10/31/18 10:00 Dose: 20 mg Guaifenesin (Robitussin -) 10 ml PO Q6H PRN PRN Reason: COUGH Heparin Sodium (Porcine) (Heparin -) 5,000 unit SQ BID [facility] Last Admin: 10/31/18 10:00 Dose: 5,000 unit Insulin Aspart (Novolog Vial Sliding Scale -) 1 vial SQ ACHS [facility]; Protocol Last Admin: 10/31/18 06:19 Dose: Not Given Leflunomide (Arava -) 20 mg PO DAILY [facility] Last Admin: 10/31/18 10:09 Dose: 20 mg Losartan Potassium (Cozaar -) 50 mg PO DAILY [facility] Last Admin: 10/31/18 10:00 Dose: 50 mg Methylprednisolone Sodium Succinate (Solu-Medrol -) 40 mg IVPUSH TID [facility] Pantoprazole Sodium (Protonix -) 40 mg PO DAILY [facility] Last Admin: 10/31/18 09:59 Dose: 40 mg Sulfasalazine (Azulfidine En-Tabs -) 1,000 mg PO BID [facility] Last Admin: 10/30/18 22:13 Dose: 1,000 mg Zolpidem Tartrate (Ambien -) 10 mg PO HS PRN PRN Reason: INSOMNIA Last Admin: 10/31/18 01:18 Dose: 10 mg - Objective Vital Signs: Vital Signs Temperature 97.8 F 10/31/18 06:00 Pulse Rate 97 H 10/31/18 06:00 Respiratory Rate 20 10/31/18 06:00 Blood Pressure 140/87 10/31/18 06:00 O2 Sat by Pulse Oximetry (%) 96 10/30/18 21:00 Constitutional: Yes: Well Nourished, Calm Eyes: Yes: WNL HENT: Yes: WNL Neck: Yes: WNL Cardiovascular: Yes: Regular Rate and Rhythm, S1, S2 Respiratory: Yes: Diminished, Wheezes (few scattered wheezes) Gastrointestinal: Yes: Normal Bowel Sounds, Soft Extremities: Yes: WNL Edema: No Labs: CBC, BMP 10/30/18 09:40 10/30/18 09:40 INR, PTT INR 1.34 (0.83-1.09) H 10/24/18 13:51 Problem List - Problems (1) THIAGO (acute kidney injury) Code(s): N17.9 - ACUTE KIDNEY FAILURE, UNSPECIFIED (2) Acute on chronic respiratory failure with hypoxemia Code(s): J96.21 - ACUTE AND CHRONIC RESPIRATORY FAILURE WITH HYPOXIA (3) COPD (chronic obstructive pulmonary disease) Code(s): J44.9 - CHRONIC OBSTRUCTIVE PULMONARY DISEASE, UNSPECIFIED (4) GERD (gastroesophageal reflux disease) Code(s): K21.9 - GASTRO-ESOPHAGEAL REFLUX DISEASE WITHOUT ESOPHAGITIS (5) Metastatic lung cancer (metastasis from lung to other site) Code(s): C34.90 - MALIGNANT NEOPLASM OF UNSP PART OF UNSP BRONCHUS OR LUNG (6) Rheumatoid arthritis Code(s): M06.9 - RHEUMATOID ARTHRITIS, UNSPECIFIED (7) SCC (squamous cell carcinoma of lung) Code(s): C34.90 - MALIGNANT NEOPLASM OF UNSP PART OF UNSP BRONCHUS OR LUNG (8) SOB (shortness of breath) Code(s): R06.02 - SHORTNESS OF BREATH (9) Stage 4 lung cancer Code(s): C34.90 - MALIGNANT NEOPLASM OF UNSP PART OF UNSP BRONCHUS OR LUNG (10) Depression Code(s): F32.9 - MAJOR DEPRESSIVE DISORDER, SINGLE EPISODE, UNSPECIFIED (11) HTN (hypertension) Code(s): I10 - ESSENTIAL (PRIMARY) HYPERTENSION Assessment/Plan Assessment/Plan Acute Hypoxic Respiratory Failure improved Metastatic Lung Cancer on nivolumab COPD Pleural Effusions +Troponins likely Demand Ischemia Pulmonary HTN Rheumatoid Arthritis HTN THIAGO - LE dopplers to r/o DVT pt refuses - steroid taper - inhaled bronchodilators - O2 to keep SpO2 >90% - DVT prophylaxis - outpatient pulmonary rehab DR KERR
--- NOTE | 2018-10-31 13:29 | PN ---
Progress Note, Physician History of Present Illness: 73 yo female pmh active stage 4 lung ca sp R upper lobectomy currently on immunotherapy (1X per month as per Dr. Paige, last treatment today) htn, ra, copd, with recent admission for acute on chronic respiratory failure (DC on ) presents from [facility] for SOB. Pt states she was at her appointment for immunotherapy with Dr. Camarillo today and after treatment was instructed to head to the ER for admission for SOB. Pt admits to 2 days of worsening SOB especially with laying flat and bilateral lower limb edema. Pt did not take lasix today (40 mg daily home dose). Denies CP, palpitations, hemoptysis, F/C/N/V, calf tenderness/leg pain, changes in bowel or bladder habits. - Current Medication List Current Medications: Active Medications Acetaminophen (Tylenol -) 500 mg PO Q6H PRN PRN Reason: PAIN 6-10 Last Admin: 10/26/18 17:24 Dose: 500 mg Albuterol Sulfate (Ventolin 0.083% Nebulizer Soln -) 1 amp NEB Q6H PRN PRN Reason: SHORT OF BREATH/WHEEZING Last Admin: 10/30/18 04:57 Dose: 1 amp Alprazolam (Xanax -) 0.5 mg PO Q12H PRN PRN Reason: ANXIETY Last Admin: 10/31/18 01:18 Dose: 0.5 mg Amlodipine Besylate (Norvasc -) 5 mg PO DAILY [facility] Last Admin: 10/31/18 10:00 Dose: 5 mg Amoxicillin/Clavulanate Potassium (Augmentin - 875mg Tablet) 1 tab PO BID@0800, 1730 [facility] Last Admin: 10/31/18 10:00 Dose: 1 tab Atovaquone (Mepron -) 1,500 mg PO DAILY@0800 [facility] Last Admin: 10/31/18 08:00 Dose: 1,500 mg Buspirone HCl (Buspar -) 5 mg PO BID [facility] Last Admin: 10/31/18 09:59 Dose: 5 mg Furosemide (Lasix -) 20 mg PO DAILY [facility] Last Admin: 10/31/18 10:00 Dose: 20 mg Guaifenesin (Robitussin -) 10 ml PO Q6H PRN PRN Reason: COUGH Heparin Sodium (Porcine) (Heparin -) 5,000 unit SQ BID [facility] Last Admin: 10/31/18 10:00 Dose: 5,000 unit Insulin Aspart (Novolog Vial Sliding Scale -) 1 vial SQ ACHS [facility]; Protocol Last Admin: 10/31/18 06:19 Dose: Not Given Leflunomide (Arava -) 20 mg PO DAILY [facility] Last Admin: 10/31/18 10:09 Dose: 20 mg Losartan Potassium (Cozaar -) 50 mg PO DAILY [facility] Last Admin: 10/31/18 10:00 Dose: 50 mg Methylprednisolone Sodium Succinate (Solu-Medrol -) 40 mg IVPUSH TID [facility] Pantoprazole Sodium (Protonix -) 40 mg PO DAILY [facility] Last Admin: 10/31/18 09:59 Dose: 40 mg Sulfasalazine (Azulfidine En-Tabs -) 1,000 mg PO BID [facility] Last Admin: 10/30/18 22:13 Dose: 1,000 mg Zolpidem Tartrate (Ambien -) 10 mg PO HS PRN PRN Reason: INSOMNIA Last Admin: 10/31/18 01:18 Dose: 10 mg - Objective Vital Signs: Vital Signs Temperature 97.8 F 10/31/18 06:00 Pulse Rate 97 H 10/31/18 06:00 Respiratory Rate 20 10/31/18 06:00 Blood Pressure 140/87 10/31/18 06:00 O2 Sat by Pulse Oximetry (%) 96 10/30/18 21:00 Eyes: Yes: WNL, Conjunctiva Clear, EOM Intact HENT: Yes: WNL, Atraumatic, Normocephalic Neck: Yes: WNL, Supple, Trachea Midline Cardiovascular: Yes: WNL, Regular Rate and Rhythm Respiratory: Yes: WNL, Regular, CTA Bilaterally Gastrointestinal: Yes: WNL, Normal Bowel Sounds Genitourinary: Yes: WNL Musculoskeletal: Yes: WNL Extremities: Yes: WNL Edema: No Integumentary: Yes: WNL Neurological: Yes: WNL, Alert, Oriented ...Motor Strength: WNL Psychiatric: Yes: WNL Labs: CBC, BMP 10/30/18 09:40 10/30/18 09:40 INR, PTT INR 1.34 (0.83-1.09) H 10/24/18 13:51 Assessment/Plan 73 yo female pmh active stage 4 lung ca sp R upper lobectomy currently on immunotherapy (1X per month as per Dr. Paige, last treatment today) htn, ra, copd, with recent admission for acute on chronic respiratory failure decompensated chf echo month ago nl ef Plan oncology f/u repeat echo showed mild pericardial effusion no tamponade. stable on Lasix
[2018-10-31] MEDS ORDERED: methylPREDNISolone NA SUCC 40 MG/1 ML VIAL IVPUSH SCH (14:00)
--- NOTE | 2018-10-31 16:30 | PN ---
Progress Note (short form) - Note Progress Note: Patient seen and examined Somewhat more comfortable with less dyspnea and less cough Upset about report of liver mets Last Vital Signs Temp Pulse Resp BP Pulse Ox 97.8 F 97 H 20 140/87 96 10/31/18 06:00 10/31/18 06:00 10/31/18 06:00 10/31/18 06:00 10/30/18 21:00 HEENT: GIUSEPPE, EOM Intact Oropharynx: thrush, No mucositis, dentures Cor: RSR, No murmurs, No gallops Lungs:scattered rhonchi Abd: Soft, Normal bowel sounds, No organomegaly Ext:2+ LE edema edema Skin: No rashes, Integument intact CBC, BMP 10/30/18 09:40 10/30/18 09:40 Current Medications Generic Name Dose Route Start Last Admin Trade Name Freq PRN Reason Stop Dose Admin Acetaminophen 500 mg 10/24/18 17:21 10/26/18 17:24 Tylenol - PO 500 mg Q6H PRN Administration PAIN 6-10 Albuterol Sulfate 1 amp 10/30/18 02:18 10/30/18 04:57 Ventolin 0.083% Nebulizer Soln - NEB 1 amp Q6H PRN Administration SHORT OF BREATH/WHEEZING Alprazolam 0.5 mg 10/29/18 22:14 10/31/18 01:18 Xanax - PO 0.5 mg Q12H PRN Administration ANXIETY Amlodipine Besylate 5 mg 10/25/18 10:00 10/31/18 10:00 Norvasc - PO 5 mg DAILY [facility] Administration Amoxicillin/Clavulanate Potassium 1 tab 10/26/18 17:30 10/31/18 10:00 Augmentin - 875mg Tablet PO 1 tab BID@0800,1730 [facility] Administration Atovaquone 1,500 mg 10/25/18 08:00 10/31/18 08:00 Mepron - PO 1,500 mg DAILY@0800 [facility] Administration Buspirone HCl 5 mg 10/24/18 22:00 10/31/18 09:59 Buspar - PO 5 mg BID [facility] Administration Furosemide 20 mg 10/31/18 10:00 10/31/18 10:00 Lasix - PO 20 mg DAILY [facility] Administration Guaifenesin 10 ml 10/24/18 17:21 Robitussin - PO Q6H PRN COUGH Heparin Sodium (Porcine) 5,000 unit 10/24/18 22:00 10/31/18 10:00 Heparin - SQ 5,000 unit BID [facility] Administration Insulin Aspart 1 vial 10/24/18 22:00 10/31/18 06:19 Novolog Vial Sliding Scale - SQ Not Given ACHS [facility] Protocol Leflunomide 20 mg 10/25/18 10:00 10/31/18 10:09 Arava - PO 20 mg DAILY [facility] Administration Losartan Potassium 50 mg 10/25/18 10:00 10/31/18 10:00 Cozaar - PO 50 mg DAILY [facility] Administration Methylprednisolone Sodium Succinate 40 mg 10/31/18 14:00 Solu-Medrol - IVPUSH TID [facility] Pantoprazole Sodium 40 mg 10/25/18 10:00 10/31/18 09:59 Protonix - PO 40 mg DAILY [facility] Administration Sulfasalazine 1,000 mg 10/24/18 22:00 10/30/18 22:13 Azulfidine En-Tabs - PO 1,000 mg BID [facility] Administration Zolpidem Tartrate 10 mg 10/29/18 22:50 10/31/18 01:18 Ambien - PO 10 mg HS PRN Administration INSOMNIA Impression; Metastatic lung ca lung mets Liver mets Acute hypoxic respiratory failure Chemotherapy - nivolumab q month Anemia Thrush Rheumatoid arthritis Suggest - d/c port decrease medrol to 40 bid day 6 of augmentin - d/c after 7 days Begin diflucan
[2018-10-31] MEDS: methylPREDNISolone NA SUCC 40 MG/1 ML VIAL IVPB SCH (18:56)
--- NOTE | 2018-10-31 22:55 | CONSULT ---
Consult Consult Specialty:: endocrine Referred by:: dr.smitha sousa Reason for Consultation:: hyperglycemia - History of Present Illness Chief Complaint: weak and has high sugar History of Present Illness: 73 y/o female with past medical history of Lung CA stage 4 (on Immunotherapy), HTN, RA, COPD. Patient had shortness of breath cough weakness. She was admitted for further evaluation. Denies chest pain, palpitations, or dizziness with SOB. found to have metastatic spread of cancer to liver which will need further treatment. she has required management of blood sugars when she received steroid for chemo therapy.she denies nausea vomiting or vision disturbances. - Past Medical History Cardio/Vascular: Yes: HTN Pulmonary: Yes: Bronchitis, Cancer, COPD, Pneumonia, Other (Lung cancer --stage IIB . squamous cell). No: Asthma, Previously Intubated, Pulmonary Embolus, Pulmonary Fibrosis, Sleep Apnea Rheumatology: Yes: Other (rheumatoid arthritis) - Alcohol/Substance Use Hx Alcohol Use: No - Smoking History Smoking history: Former smoker Have you smoked in the past 12 months: No Aproximately how many cigarettes per day: 10 If you are a former smoker, when did you quit?: 12/16/14 - Social History ADL: Independent History of Recent Travel: No Home Medications - Allergies Allergies/Adverse Reactions: Allergies Allergy/AdvReac Type Severity Reaction Status Date / Time aspirin AdvReac Mild Verified 10/24/18 13:05 - Home Medications Home Medications: Ambulatory Orders Alprazolam [Xanax] 0.25 mg PO DAILY 06/15/18 Losartan Potassium [Cozaar -] 50 mg PO DAILY 06/15/18 Pantoprazole Sodium [Protonix -] 40 mg PO DAILY 06/15/18 Zolpidem Tartrate [Ambien] 10 mg PO DAILY 06/15/18 Acetaminophen [Tylenol .Extra-Strength -] 500 mg PO Q6H PRN tablet 06/19/18 Atovaquone [Mepron Oral Solution -] 1,500 mg PO DAILY@0800 #1 bottle 06/19/18 Albuterol Sulfate Inhaler - [Ventolin HFA Inhaler -] 2 puff IH Q6H PRN inhaler 06/25/18 Amlodipine Besylate [Norvasc -] 5 mg PO DAILY tablet 06/25/18 Leflunomide [Arava -] 20 mg PO DAILY #60 tablet 06/25/18 Sulfasalazine [Azulfidine En-Tabs -] 1,000 mg PO BID #120 tablet. 06/25/18 traMADol HCL [Ultram -] 50 mg PO Q8H PRN tablet MDD 3 06/25/18 Furosemide [Lasix -] 20 mg PO DAILY #30 tablet 08/29/18 predniSONE [Deltasone -] 20 mg PO DAILY #14 tablet 09/20/18 Albuterol 0.083% Nebulizer Yudy [Ventolin 0.083% Nebulizer Soln -] 1 amp NEB RQID amp 09/24/18 Guaifenesin [Robitussin -] 10 ml PO Q6H PRN cup 09/24/18 Acetylcysteine Po/INH 20% [Mucomyst 20 Oral / INH Use Only*] 200 mg NEB RQID vial 10/03/18 Heparin - 5,000 unit SQ BID vial 10/03/18 Selin-Cath Flush [Selin-Cath Flush -] 10 ml IVPUSH PRN PRN ml 10/03/18 Buspirone HCl [Buspar -] 5 mg PO BID tablet 10/10/18 Review of Systems - Review of Systems Constitutional: reports: Loss of Appetite, Weakness Eyes: reports: No Symptoms HENT: reports: No Symptoms Neck: reports: No Symptoms Cardiovascular: reports: Shortness of Breath Respiratory: reports: Exercise Intolerance, SOB on Exertion Gastrointestinal: reports: Bloating Genitourinary: reports: No Symptoms Breasts: reports: No Symptoms Reported Musculoskeletal: reports: Muscle Pain, Muscle Cramps, Muscle Weakness Neurological: reports: Numbness, Weakness Endocrine: reports: Unexplained Weight Gain Physical Exam Vital Signs: Vital Signs Temperature 98.0 F 10/31/18 18:14 Pulse Rate 106 H 10/31/18 18:14 Respiratory Rate 21 H 10/31/18 18:14 Blood Pressure 123/69 10/31/18 18:14 O2 Sat by Pulse Oximetry (%) 96 10/31/18 09:00 Constitutional: Yes: Anxious Eyes: Yes: EOM Intact HENT: Yes: Normocephalic Neck: Yes: Trachea Midline Cardiovascular: Yes: Tachycardia Respiratory: Yes: On Nasal O2, SOB, Tachypnea Gastrointestinal: Yes: Soft ...Rectal Exam: Yes: Deferred Renal/: Yes: WNL Musculoskeletal: Yes: Muscle Pain, Muscle Weakness Edema: No Neurological: Yes: Alert, Oriented Labs: CBC, BMP 10/30/18 09:40 10/30/18 09:40 Problem List - Problems (1) Diabetes Code(s): E11.9 - TYPE 2 DIABETES MELLITUS WITHOUT COMPLICATIONS Qualifiers: Diabetes mellitus complication status: without complication (2) Acute on chronic diastolic CHF (congestive heart failure) Code(s): I50.33 - ACUTE ON CHRONIC DIASTOLIC (CONGESTIVE) HEART FAILURE (3) COPD exacerbation Code(s): J44.1 - CHRONIC OBSTRUCTIVE PULMONARY DISEASE W (ACUTE) EXACERBATION (4) Elevated troponin Code(s): R74.8 - ABNORMAL LEVELS OF OTHER SERUM ENZYMES (5) Shortness of breath Code(s): R06.02 - SHORTNESS OF BREATH (6) Abscess Code(s): L02.91 - CUTANEOUS ABSCESS, UNSPECIFIED (7) Acute on chronic respiratory failure with hypoxemia Code(s): J96.21 - ACUTE AND CHRONIC RESPIRATORY FAILURE WITH HYPOXIA Assessment/Plan Current Active Problems diabetes mellitus hyperglycemia Acute on chronic diastolic CHF (congestive heart failure) (Acute) COPD exacerbation (Acute) Elevated troponin (Acute) Shortness of breath (Acute) metastatic lung cancer Laboratory Results - last 24 hr 10/31/18 06:17 POC Glucometer 139 Laboratory Tests 10/24/18 10/25/18 10/25/18 22:38 05:44 05:45 Sodium Potassium Chloride Carbon Dioxide Anion Gap BUN Creatinine Est GFR (CKD-EPI)AfAm Est GFR (CKD-EPI)NonAf POC Glucometer 141 133 Hemoglobin A1c % < 4.2 L 10/25/18 10/28/18 10/30/18 11:45 06:40 09:40 Sodium 139 Potassium 4.1 Chloride 105 Carbon Dioxide 29 Anion Gap 6 L BUN 22.1 H Creatinine 1.0 Est GFR (CKD-EPI)AfAm 65.18 Est GFR (CKD-EPI)NonAf 56.24 POC Glucometer 129 137 Hemoglobin A1c % 10/31/18 06:17 Sodium Potassium Chloride Carbon Dioxide Anion Gap BUN Creatinine Est GFR (CKD-EPI)AfAm Est GFR (CKD-EPI)NonAf POC Glucometer 139 Hemoglobin A1c % plan bgm acmeal if needed as tolerated
[2018-10-31] MEDS: FLUCONAZOLE 100 MG TABLET (UD) PO SCH (23:11)
[2018-11-01] MEDS: ZOLPIDEM TARTRATE 5 MG TABLET PO PRN (01:07)
[2018-11-01] MEDS: ALPRAZolam 0.25 MG TABLET PO PRN (01:07)
[2018-11-01] MEDS: INSULIN SLIDING SCALE (NOVOLOG) 1 VIAL SQ SCH ×3 (06:19→17:37)
[2018-11-01] MEDS: methylPREDNISolone NA SUCC 40 MG/1 ML VIAL IVPB SCH ×2 (06:20→17:37)
[2018-11-01] MEDS: AMOX TR/POT CLAV 875MG/125MG TABLETS (FP) PO SCH ×2 (08:07→17:37)
[2018-11-01] MEDS ORDERED: PT OWN MED DRAWER 7, Y5N ONE (09:25)
[2018-11-01] MEDS: FLUCONAZOLE 100 MG TABLET (UD) PO SCH (10:08)
[2018-11-01] MEDS: FUROSEMIDE 20 MG TABLET (FP) PO SCH (10:08)
[2018-11-01] MEDS: PANTOPRAZOLE 40 MG TABLET (FP) PO SCH (10:08)
[2018-11-01] MEDS: busPIRone HCL 5 MG TABLET PO SCH ×2 (10:08→22:34)
[2018-11-01] MEDS: amLODIPine BESYLATE 5 MG TABLET (FP) PO SCH (10:08)
[2018-11-01] MEDS: LOSARTAN POTASSIUM 50 MG TABLET (FP) PO SCH (10:08)
[2018-11-01] MEDS: ATOVAQUONE 750 MG/5 ML (UNIT-DOSE PACKAGING) PO SCH (10:09)
[2018-11-01] MEDS: LEFLUNOMIDE 10 MG TABLET PO SCH (10:09)
[2018-11-01] MEDS: guaiFENesin 200 MG/10 ML 10 ML UNIT-DOSE CUPS PO PRN (10:11)
--- NOTE | 2018-11-01 11:07 | PN ---
Progress Note, Physician History of Present Illness: PULMONARY ALERT,COMFORTABLE,BREATHING BETTER. DEPRESSED ABOUT LIVER METS ON MOST RECENT CT - Current Medication List Current Medications: Active Medications Acetaminophen (Tylenol -) 500 mg PO Q6H PRN PRN Reason: PAIN 6-10 Last Admin: 10/26/18 17:24 Dose: 500 mg Albuterol Sulfate (Ventolin 0.083% Nebulizer Soln -) 1 amp NEB Q6H PRN PRN Reason: SHORT OF BREATH/WHEEZING Last Admin: 10/30/18 04:57 Dose: 1 amp Alprazolam (Xanax -) 0.5 mg PO Q12H PRN PRN Reason: ANXIETY Last Admin: 11/01/18 01:07 Dose: 0.5 mg Amlodipine Besylate (Norvasc -) 5 mg PO DAILY [facility] Last Admin: 11/01/18 10:08 Dose: 5 mg Amoxicillin/Clavulanate Potassium (Augmentin - 875mg Tablet) 1 tab PO BID@0800, 1730 [facility] Last Admin: 11/01/18 08:07 Dose: 1 tab Atovaquone (Mepron -) 1,500 mg PO DAILY@0800 [facility] Last Admin: 11/01/18 10:09 Dose: 1,500 mg Buspirone HCl (Buspar -) 5 mg PO BID [facility] Last Admin: 11/01/18 10:08 Dose: 5 mg Fluconazole (Diflucan -) 100 mg PO DAILY [facility] Last Admin: 11/01/18 10:08 Dose: 100 mg Furosemide (Lasix -) 20 mg PO DAILY [facility] Last Admin: 11/01/18 10:08 Dose: 20 mg Guaifenesin (Robitussin -) 10 ml PO Q6H PRN PRN Reason: COUGH Last Admin: 11/01/18 10:11 Dose: 10 ml Insulin Aspart (Novolog Vial Sliding Scale -) 1 vial SQ TIDAC [facility]; Protocol Last Admin: 11/01/18 06:19 Dose: Not Given Leflunomide (Arava -) 20 mg PO DAILY [facility] Last Admin: 11/01/18 10:09 Dose: 20 mg Losartan Potassium (Cozaar -) 50 mg PO DAILY [facility] Last Admin: 11/01/18 10:08 Dose: 50 mg Methylprednisolone Sodium Succinate (Solu-Medrol -) 40 mg IVPB Q12H [facility] Last Admin: 11/01/18 06:20 Dose: 40 mg Pantoprazole Sodium (Protonix -) 40 mg PO DAILY [facility] Last Admin: 11/01/18 10:08 Dose: 40 mg Sulfasalazine (Azulfidine En-Tabs -) 1,000 mg PO BID [facility] Last Admin: 11/01/18 10:10 Dose: 1,000 mg Zolpidem Tartrate (Ambien -) 10 mg PO HS PRN PRN Reason: INSOMNIA Last Admin: 11/01/18 01:07 Dose: 10 mg - Objective Vital Signs: Vital Signs Temperature 98.0 F 11/01/18 09:03 Pulse Rate 93 H 11/01/18 09:03 Respiratory Rate 20 11/01/18 09:03 Blood Pressure 139/75 11/01/18 09:03 O2 Sat by Pulse Oximetry (%) 96 11/01/18 08:58 Constitutional: Yes: Well Nourished, Calm Eyes: Yes: WNL HENT: Yes: WNL Neck: Yes: WNL Cardiovascular: Yes: Regular Rate and Rhythm, S1, S2 Respiratory: Yes: Diminished Gastrointestinal: Yes: Normal Bowel Sounds, Soft Extremities: Yes: WNL Edema: Yes Labs: Problem List - Problems (1) THIAGO (acute kidney injury) Code(s): N17.9 - ACUTE KIDNEY FAILURE, UNSPECIFIED (2) Acute on chronic respiratory failure with hypoxemia Code(s): J96.21 - ACUTE AND CHRONIC RESPIRATORY FAILURE WITH HYPOXIA (3) COPD (chronic obstructive pulmonary disease) Code(s): J44.9 - CHRONIC OBSTRUCTIVE PULMONARY DISEASE, UNSPECIFIED (4) GERD (gastroesophageal reflux disease) Code(s): K21.9 - GASTRO-ESOPHAGEAL REFLUX DISEASE WITHOUT ESOPHAGITIS (5) Metastatic lung cancer (metastasis from lung to other site) Code(s): C34.90 - MALIGNANT NEOPLASM OF UNSP PART OF UNSP BRONCHUS OR LUNG (6) Rheumatoid arthritis Code(s): M06.9 - RHEUMATOID ARTHRITIS, UNSPECIFIED (7) SCC (squamous cell carcinoma of lung) Code(s): C34.90 - MALIGNANT NEOPLASM OF UNSP PART OF UNSP BRONCHUS OR LUNG (8) SOB (shortness of breath) Code(s): R06.02 - SHORTNESS OF BREATH (9) Stage 4 lung cancer Code(s): C34.90 - MALIGNANT NEOPLASM OF UNSP PART OF UNSP BRONCHUS OR LUNG (10) Depression Code(s): F32.9 - MAJOR DEPRESSIVE DISORDER, SINGLE EPISODE, UNSPECIFIED (11) HTN (hypertension) Code(s): I10 - ESSENTIAL (PRIMARY) HYPERTENSION Assessment/Plan Assessment/Plan Acute Hypoxic Respiratory Failure improved Metastatic Lung Cancer on nivolumab COPD Pleural Effusions +Troponins likely [place] Ischemia Pulmonary HTN Rheumatoid Arthritis HTN THIAGO - LE dopplers to r/o DVT pt refuses - steroid taper - inhaled bronchodilators - O2 to keep SpO2 >90% - DVT prophylaxis - PT wants hospice at [place] DR KERR
--- NOTE | 2018-11-01 13:35 | PN ---
Progress Note, Physician Chief Complaint: patient seen and examined aware of liver mets awaitng [place] evaluation and placement DNR/DNi - Current Medication List Current Medications: Active Medications Acetaminophen (Tylenol -) 500 mg PO Q6H PRN PRN Reason: PAIN 6-10 Last Admin: 10/26/18 17:24 Dose: 500 mg Albuterol Sulfate (Ventolin 0.083% Nebulizer Soln -) 1 amp NEB Q6H PRN PRN Reason: SHORT OF BREATH/WHEEZING Last Admin: 10/30/18 04:57 Dose: 1 amp Alprazolam (Xanax -) 0.5 mg PO Q12H PRN PRN Reason: ANXIETY Last Admin: 11/01/18 01:07 Dose: 0.5 mg Amlodipine Besylate (Norvasc -) 5 mg PO DAILY [facility] Last Admin: 11/01/18 10:08 Dose: 5 mg Amoxicillin/Clavulanate Potassium (Augmentin - 875mg Tablet) 1 tab PO BID@0800, 1730 [facility] Last Admin: 11/01/18 08:07 Dose: 1 tab Atovaquone (Mepron -) 1,500 mg PO DAILY@0800 [facility] Last Admin: 11/01/18 10:09 Dose: 1,500 mg Buspirone HCl (Buspar -) 5 mg PO BID [facility] Last Admin: 11/01/18 10:08 Dose: 5 mg Fluconazole (Diflucan -) 100 mg PO DAILY [facility] Last Admin: 11/01/18 10:08 Dose: 100 mg Furosemide (Lasix -) 20 mg PO DAILY [facility] Last Admin: 11/01/18 10:08 Dose: 20 mg Guaifenesin (Robitussin -) 10 ml PO Q6H PRN PRN Reason: COUGH Last Admin: 11/01/18 10:11 Dose: 10 ml Insulin Aspart (Novolog Vial Sliding Scale -) 1 vial SQ TIDAC [facility]; Protocol Last Admin: 11/01/18 06:19 Dose: Not Given Leflunomide (Arava -) 20 mg PO DAILY [facility] Last Admin: 11/01/18 10:09 Dose: 20 mg Losartan Potassium (Cozaar -) 50 mg PO DAILY [facility] Last Admin: 11/01/18 10:08 Dose: 50 mg Methylprednisolone Sodium Succinate (Solu-Medrol -) 40 mg IVPB Q12H [facility] Last Admin: 11/01/18 06:20 Dose: 40 mg Pantoprazole Sodium (Protonix -) 40 mg PO DAILY [facility] Last Admin: 11/01/18 10:08 Dose: 40 mg Sulfasalazine (Azulfidine En-Tabs -) 1,000 mg PO BID [facility] Last Admin: 11/01/18 10:10 Dose: 1,000 mg Zolpidem Tartrate (Ambien -) 10 mg PO HS PRN PRN Reason: INSOMNIA Last Admin: 11/01/18 01:07 Dose: 10 mg - Objective Vital Signs: Vital Signs Temperature 98.0 F 11/01/18 09:03 Pulse Rate 93 H 11/01/18 09:03 Respiratory Rate 20 11/01/18 09:03 Blood Pressure 139/75 11/01/18 09:03 O2 Sat by Pulse Oximetry (%) 96 11/01/18 08:58 Constitutional: Yes: Calm Cardiovascular: Yes: Pulse Irregular, S1, S2 Respiratory: Yes: Diminished, On Nasal O2 Gastrointestinal: Yes: Normal Bowel Sounds, Soft Edema: Yes Neurological: Yes: Alert, Oriented Labs: CBC, BMP 10/30/18 09:40 10/30/18 09:40 INR, PTT INR 1.34 (0.83-1.09) H 10/24/18 13:51 Problem List - Problems (1) COPD (chronic obstructive pulmonary disease) Assessment/Plan: chest ct noted prednsione oxygen bronchodilators Code(s): J44.9 - CHRONIC OBSTRUCTIVE PULMONARY DISEASE, UNSPECIFIED (2) Metastatic lung cancer (metastasis from lung to other site) Assessment/Plan: [place] Code(s): C34.90 - MALIGNANT NEOPLASM OF UNSP PART OF UNSP BRONCHUS OR LUNG (3) Shortness of breath Assessment/Plan: improved augmentin dose last dose tonight diflucan Code(s): R06.02 - SHORTNESS OF BREATH
[2018-11-01] MEDS: NYSTATIN 500,000 UNITS/5 ML SUSPENSION PO SCH (17:37)
--- NOTE | 2018-11-01 22:20 | PN ---
Progress Note, Physician Chief Complaint: Pt A&Ox3; sitting up in bed; says she has made up her mind to go to [place].She is tearful. History of Present Illness: The patient is a 73 year old black woman with a past medical history of stage 4 lung cancer (s/p right upper lobe removal, currently on immunotherapy), diastolic CHF, and COPD (5L at home; quit smoking cigareettes bout 3 months ago) ) here today for evaluation of shortness of breath. The patient was recently discharged to the [facility] on 10/16/[address] Camarillo when she was sent in. She notes that she has had worsening shortness of breath and orthopnea over the past few days. Patient denies headache, lightheadedness. Denies fever, chills. Denies chest pain. Allergies: aspirin PCP: Juventino Ruby Oncologist: Humza Camarillo - Current Medication List Current Medications: Active Medications Acetaminophen (Tylenol -) 500 mg PO Q6H PRN PRN Reason: PAIN 6-10 Last Admin: 10/26/18 17:24 Dose: 500 mg Albuterol Sulfate (Ventolin 0.083% Nebulizer Soln -) 1 amp NEB Q6H PRN PRN Reason: SHORT OF BREATH/WHEEZING Last Admin: 10/30/18 04:57 Dose: 1 amp Amlodipine Besylate (Norvasc -) 5 mg PO DAILY [facility] Last Admin: 11/01/18 10:08 Dose: 5 mg Amoxicillin/Clavulanate Potassium (Augmentin - 875mg Tablet) 1 tab PO BID@0800, 1730 [facility] Last Admin: 11/01/18 17:37 Dose: 1 tab Atovaquone (Mepron -) 1,500 mg PO DAILY@0800 [facility] Last Admin: 11/01/18 10:09 Dose: 1,500 mg Buspirone HCl (Buspar -) 5 mg PO BID [facility] Last Admin: 11/01/18 10:08 Dose: 5 mg Fluconazole (Diflucan -) 100 mg PO DAILY [facility] Last Admin: 11/01/18 10:08 Dose: 100 mg Furosemide (Lasix -) 20 mg PO DAILY [facility] Last Admin: 11/01/18 10:08 Dose: 20 mg Guaifenesin (Robitussin -) 10 ml PO Q6H PRN PRN Reason: COUGH Last Admin: 11/01/18 10:11 Dose: 10 ml Insulin Aspart (Novolog Vial Sliding Scale -) 1 vial SQ TIDAC [facility]; Protocol Last Admin: 11/01/18 17:37 Dose: Not Given Leflunomide (Arava -) 20 mg PO DAILY [facility] Last Admin: 11/01/18 10:09 Dose: 20 mg Losartan Potassium (Cozaar -) 50 mg PO DAILY [facility] Last Admin: 11/01/18 10:08 Dose: 50 mg Methylprednisolone Sodium Succinate (Solu-Medrol -) 40 mg IVPB Q12H [facility] Last Admin: 11/01/18 17:37 Dose: 40 mg Nystatin (Nystatin Oral Suspension -) 500,000 units PO Q6HPO [facility] Last Admin: 11/01/18 17:37 Dose: 500,000 units Pantoprazole Sodium (Protonix -) 40 mg PO DAILY [facility] Last Admin: 11/01/18 10:08 Dose: 40 mg Sulfasalazine (Azulfidine En-Tabs -) 1,000 mg PO BID [facility] Last Admin: 11/01/18 10:10 Dose: 1,000 mg Zolpidem Tartrate (Ambien -) 10 mg PO HS PRN PRN Reason: INSOMNIA Last Admin: 11/01/18 01:07 Dose: 10 mg - Objective Vital Signs: Vital Signs Temperature 97.6 F 11/01/18 19:02 Pulse Rate 98 H 11/01/18 19:02 Respiratory Rate 20 11/01/18 19:04 Blood Pressure 143/71 11/01/18 19:02 O2 Sat by Pulse Oximetry (%) 96 11/01/18 19:04 Constitutional: Yes: Anxious Eyes: Yes: WNL HENT: Yes: WNL Neck: Yes: WNL Cardiovascular: Yes: S1, S2, S4 Respiratory: Yes: WNL Gastrointestinal: Yes: Soft ...Rectal Exam: Yes: Deferred Genitourinary: No: Anuria Breast(s): Yes: WNL Musculoskeletal: Yes: Muscle Weakness Extremities: Yes: Cool Edema: No Peripheral Pulses WNL: Yes Integumentary: Yes: WNL Neurological: Yes: Alert, Oriented, Weakness Psychiatric: Yes: Alert, Oriented, Other (depression) Labs: CBC, BMP 10/30/18 09:40 10/30/18 09:40 INR, PTT INR 1.34 (0.83-1.09) H 10/24/18 13:51 Laboratory Results - last 24 hr 11/01/18 06:15 POC Glucometer 147 Problem List - Problems (1) COPD (chronic obstructive pulmonary disease) Assessment/Plan: bronchodilators, steroids, antibiotics per ID, scroll saw operator. Code(s): J44.9 - CHRONIC OBSTRUCTIVE PULMONARY DISEASE, UNSPECIFIED (2) Metastatic lung cancer (metastasis from lung to other site) Assessment/Plan: F/u [facility] oncologist Pt says that, since she decided on [place], she does not want more physical therapy. Code(s): C34.90 - MALIGNANT NEOPLASM OF UNSP PART OF UNSP BRONCHUS OR LUNG (3) Elevated troponin Code(s): R74.8 - ABNORMAL LEVELS OF OTHER SERUM ENZYMES (4) Acute on chronic diastolic CHF (congestive heart failure) Assessment/Plan: Pt has perids of relatively stable breathing, but increasingly frequent and lengthy episodes, especially at night, of inability to breathe easily. On losartan, amlodipine, and PO furosemide. On bronchodilators, steroids, antibiotics, O2. On chemotherapeutic agents. F/u BUn/Cr (improving), electrolytes, Is and Os, daily weight. Code(s): I50.33 - ACUTE ON CHRONIC DIASTOLIC (CONGESTIVE) HEART FAILURE (5) Depression Assessment/Plan: Pt is grieving over the futility of trying to treat her cancer. She shows copies of her tests and says "it's spread all over". She has been, and is still angry, but is also increasingly resigned to the diagnosis. Code(s): F32.9 - MAJOR DEPRESSIVE DISORDER, SINGLE EPISODE, UNSPECIFIED
[2018-11-02] MEDS ORDERED: ZOLPIDEM TARTRATE 5 MG TABLET PO PRN (01:12)
[2018-11-02] MEDS: NYSTATIN 500,000 UNITS/5 ML SUSPENSION PO SCH ×4 (01:23→17:54)
[2018-11-02] MEDS: ALPRAZolam 0.25 MG TABLET PO PRN (01:33)
[2018-11-02] MEDS: ZOLPIDEM TARTRATE 5 MG TABLET PO PRN (01:36)
[2018-11-02] MEDS: methylPREDNISolone NA SUCC 40 MG/1 ML VIAL IVPB SCH ×2 (06:35→17:54)
[2018-11-02] MEDS: INSULIN SLIDING SCALE (NOVOLOG) 1 VIAL SQ SCH ×3 (06:36→16:44)
[2018-11-02] MEDS: AMOX TR/POT CLAV 875MG/125MG TABLETS (FP) PO SCH (08:08)
[2018-11-02] MEDS: LEFLUNOMIDE 10 MG TABLET PO SCH (09:27)
[2018-11-02] MEDS: ATOVAQUONE 750 MG/5 ML (UNIT-DOSE PACKAGING) PO SCH (09:27)
[2018-11-02] MEDS: busPIRone HCL 5 MG TABLET PO SCH ×2 (09:28→23:28)
[2018-11-02] MEDS: FUROSEMIDE 20 MG TABLET (FP) PO SCH (09:28)
[2018-11-02] MEDS: LOSARTAN POTASSIUM 50 MG TABLET (FP) PO SCH (09:28)
[2018-11-02] MEDS: PANTOPRAZOLE 40 MG TABLET (FP) PO SCH (09:28)
[2018-11-02] MEDS: FLUCONAZOLE 100 MG TABLET (UD) PO SCH (09:28)
[2018-11-02] MEDS: amLODIPine BESYLATE 5 MG TABLET (FP) PO SCH (09:28)
--- NOTE | 2018-11-02 10:48 | PN ---
Progress Note, Physician History of Present Illness: pulmonary alert,no distress,-sob, - Current Medication List Current Medications: Active Medications Acetaminophen (Tylenol -) 500 mg PO Q6H PRN PRN Reason: PAIN 6-10 Last Admin: 10/26/18 17:24 Dose: 500 mg Albuterol Sulfate (Ventolin 0.083% Nebulizer Soln -) 1 amp NEB Q6H PRN PRN Reason: SHORT OF BREATH/WHEEZING Last Admin: 10/30/18 04:57 Dose: 1 amp Alprazolam (Xanax -) 0.5 mg PO BID PRN PRN Reason: ANXIETY Last Admin: 11/02/18 01:33 Dose: 0.5 mg Amlodipine Besylate (Norvasc -) 5 mg PO DAILY [facility] Last Admin: 11/02/18 09:28 Dose: 5 mg Amoxicillin/Clavulanate Potassium (Augmentin - 875mg Tablet) 1 tab PO BID@0800, 1730 [facility] Last Admin: 11/02/18 08:08 Dose: 1 tab Atovaquone (Mepron -) 1,500 mg PO DAILY@0800 [facility] Last Admin: 11/02/18 09:27 Dose: 1,500 mg Buspirone HCl (Buspar -) 5 mg PO BID [facility] Last Admin: 11/02/18 09:28 Dose: 5 mg Fluconazole (Diflucan -) 100 mg PO DAILY [facility] Last Admin: 11/02/18 09:28 Dose: 100 mg Furosemide (Lasix -) 20 mg PO DAILY [facility] Last Admin: 11/02/18 09:28 Dose: 20 mg Guaifenesin (Robitussin -) 10 ml PO Q6H PRN PRN Reason: COUGH Last Admin: 11/01/18 10:11 Dose: 10 ml Insulin Aspart (Novolog Vial Sliding Scale -) 1 vial SQ TIDAC [facility]; Protocol Last Admin: 11/02/18 06:36 Dose: Not Given Leflunomide (Arava -) 20 mg PO DAILY [facility] Last Admin: 11/02/18 09:27 Dose: 20 mg Losartan Potassium (Cozaar -) 50 mg PO DAILY [facility] Last Admin: 11/02/18 09:28 Dose: 50 mg Methylprednisolone Sodium Succinate (Solu-Medrol -) 40 mg IVPB Q12H [facility] Last Admin: 11/02/18 06:35 Dose: 40 mg Nystatin (Nystatin Oral Suspension -) 500,000 units PO Q6HPO [facility] Last Admin: 11/02/18 06:35 Dose: 500,000 units Pantoprazole Sodium (Protonix -) 40 mg PO DAILY [facility] Last Admin: 11/02/18 09:28 Dose: 40 mg Sulfasalazine (Azulfidine En-Tabs -) 1,000 mg PO BID [facility] Last Admin: 11/02/18 09:25 Dose: 1,000 mg Zolpidem Tartrate (Ambien -) 10 mg PO HS PRN PRN Reason: INSOMNIA Last Admin: 11/02/18 01:36 Dose: 10 mg - Objective Vital Signs: Vital Signs Temperature 97.6 F 11/02/18 08:39 Pulse Rate 100 H 11/02/18 08:39 Respiratory Rate 20 11/02/18 08:48 Blood Pressure 145/77 11/02/18 08:39 O2 Sat by Pulse Oximetry (%) 96 11/02/18 08:48 Constitutional: Yes: Well Nourished, Calm Eyes: Yes: WNL HENT: Yes: WNL Neck: Yes: WNL Cardiovascular: Yes: Regular Rate and Rhythm, S1, S2 Respiratory: Yes: Diminished Gastrointestinal: Yes: Normal Bowel Sounds, Soft Extremities: Yes: WNL Edema: Yes Labs: CBC, BMP 10/30/18 09:40 10/30/18 09:40 INR, PTT INR 1.34 (0.83-1.09) H 10/24/18 13:51 Problem List - Problems (1) THIAGO (acute kidney injury) Code(s): N17.9 - ACUTE KIDNEY FAILURE, UNSPECIFIED (2) Acute on chronic respiratory failure with hypoxemia Code(s): J96.21 - ACUTE AND CHRONIC RESPIRATORY FAILURE WITH HYPOXIA (3) COPD (chronic obstructive pulmonary disease) Code(s): J44.9 - CHRONIC OBSTRUCTIVE PULMONARY DISEASE, UNSPECIFIED (4) GERD (gastroesophageal reflux disease) Code(s): K21.9 - GASTRO-ESOPHAGEAL REFLUX DISEASE WITHOUT ESOPHAGITIS (5) Metastatic lung cancer (metastasis from lung to other site) Code(s): C34.90 - MALIGNANT NEOPLASM OF UNSP PART OF UNSP BRONCHUS OR LUNG (6) Rheumatoid arthritis Code(s): M06.9 - RHEUMATOID ARTHRITIS, UNSPECIFIED (7) SCC (squamous cell carcinoma of lung) Code(s): C34.90 - MALIGNANT NEOPLASM OF UNSP PART OF UNSP BRONCHUS OR LUNG (8) SOB (shortness of breath) Code(s): R06.02 - SHORTNESS OF BREATH (9) Stage 4 lung cancer Code(s): C34.90 - MALIGNANT NEOPLASM OF UNSP PART OF UNSP BRONCHUS OR LUNG (10) Depression Code(s): F32.9 - MAJOR DEPRESSIVE DISORDER, SINGLE EPISODE, UNSPECIFIED (11) HTN (hypertension) Code(s): I10 - ESSENTIAL (PRIMARY) HYPERTENSION Assessment/Plan Assessment/Plan Acute Hypoxic Respiratory Failure improved Metastatic Lung Cancer on nivolumab COPD Pleural Effusions +Troponins likely Demand Ischemia Pulmonary HTN Rheumatoid Arthritis HTN THIAGO - steroids - inhaled bronchodilators - O2 to keep SpO2 >90% - DVT prophylaxis - DR KERR
--- NOTE | 2018-11-02 11:40 | PN ---
Progress Note, Physician History of Present Illness: 73 yo female pmh active stage 4 lung ca sp R upper lobectomy currently on immunotherapy (1X per month as per Dr. Paige, last treatment today) htn, ra, copd, with recent admission for acute on chronic respiratory failure (DC on ) presents from [facility] for SOB. Pt states she was at her appointment for immunotherapy with Dr. Camarillo today and after treatment was instructed to head to the ER for admission for SOB. Pt admits to 2 days of worsening SOB especially with laying flat and bilateral lower limb edema. Pt did not take lasix today (40 mg daily home dose). Denies CP, palpitations, hemoptysis, F/C/N/V, calf tenderness/leg pain, changes in bowel or bladder habits. - Current Medication List Current Medications: Active Medications Acetaminophen (Tylenol -) 500 mg PO Q6H PRN PRN Reason: PAIN 6-10 Last Admin: 10/26/18 17:24 Dose: 500 mg Albuterol Sulfate (Ventolin 0.083% Nebulizer Soln -) 1 amp NEB Q6H PRN PRN Reason: SHORT OF BREATH/WHEEZING Last Admin: 10/30/18 04:57 Dose: 1 amp Alprazolam (Xanax -) 0.5 mg PO BID PRN PRN Reason: ANXIETY Last Admin: 11/02/18 01:33 Dose: 0.5 mg Amlodipine Besylate (Norvasc -) 5 mg PO DAILY [facility] Last Admin: 11/02/18 09:28 Dose: 5 mg Amoxicillin/Clavulanate Potassium (Augmentin - 875mg Tablet) 1 tab PO BID@0800, 1730 [facility] Last Admin: 11/02/18 08:08 Dose: 1 tab Atovaquone (Mepron -) 1,500 mg PO DAILY@0800 [facility] Last Admin: 11/02/18 09:27 Dose: 1,500 mg Buspirone HCl (Buspar -) 5 mg PO BID [facility] Last Admin: 11/02/18 09:28 Dose: 5 mg Fluconazole (Diflucan -) 100 mg PO DAILY [facility] Last Admin: 11/02/18 09:28 Dose: 100 mg Furosemide (Lasix -) 20 mg PO DAILY [facility] Last Admin: 11/02/18 09:28 Dose: 20 mg Guaifenesin (Robitussin -) 10 ml PO Q6H PRN PRN Reason: COUGH Last Admin: 11/01/18 10:11 Dose: 10 ml Insulin Aspart (Novolog Vial Sliding Scale -) 1 vial SQ TIDAC [facility]; Protocol Last Admin: 11/02/18 06:36 Dose: Not Given Leflunomide (Arava -) 20 mg PO DAILY [facility] Last Admin: 11/02/18 09:27 Dose: 20 mg Losartan Potassium (Cozaar -) 50 mg PO DAILY [facility] Last Admin: 11/02/18 09:28 Dose: 50 mg Methylprednisolone Sodium Succinate (Solu-Medrol -) 40 mg IVPB Q12H [facility] Last Admin: 11/02/18 06:35 Dose: 40 mg Nystatin (Nystatin Oral Suspension -) 500,000 units PO Q6HPO [facility] Last Admin: 11/02/18 06:35 Dose: 500,000 units Pantoprazole Sodium (Protonix -) 40 mg PO DAILY [facility] Last Admin: 11/02/18 09:28 Dose: 40 mg Sulfasalazine (Azulfidine En-Tabs -) 1,000 mg PO BID [facility] Last Admin: 11/02/18 09:25 Dose: 1,000 mg Zolpidem Tartrate (Ambien -) 10 mg PO HS PRN PRN Reason: INSOMNIA Last Admin: 11/02/18 01:36 Dose: 10 mg - Objective Vital Signs: Vital Signs Temperature 97.6 F 11/02/18 08:39 Pulse Rate 100 H 11/02/18 08:39 Respiratory Rate 20 11/02/18 08:48 Blood Pressure 145/77 11/02/18 08:39 O2 Sat by Pulse Oximetry (%) 96 11/02/18 08:48 Eyes: Yes: WNL, Conjunctiva Clear, EOM Intact HENT: Yes: WNL, Atraumatic, Normocephalic Neck: Yes: WNL, Supple, Trachea Midline Cardiovascular: Yes: WNL, Regular Rate and Rhythm Respiratory: Yes: WNL, Regular, CTA Bilaterally Gastrointestinal: Yes: WNL, Normal Bowel Sounds Genitourinary: Yes: WNL Musculoskeletal: Yes: WNL Extremities: Yes: WNL Edema: No Integumentary: Yes: WNL Neurological: Yes: WNL, Alert, Oriented ...Motor Strength: WNL Psychiatric: Yes: WNL Labs: CBC, BMP 10/30/18 09:40 10/30/18 09:40 INR, PTT INR 1.34 (0.83-1.09) H 10/24/18 13:51 Assessment/Plan - Problems (1) COPD (chronic obstructive pulmonary disease) Assessment/Plan: bronchodilators, steroids, antibiotics per ID, service now developer. Code(s): J44.9 - CHRONIC OBSTRUCTIVE PULMONARY DISEASE, UNSPECIFIED (2) Metastatic lung cancer (metastasis from lung to other site) Assessment/Plan: F/u [facility] oncologist Pt says that, since she decided on [place], she does not want more physical therapy. Code(s): C34.90 - MALIGNANT NEOPLASM OF UNSP PART OF UNSP BRONCHUS OR LUNG (3) Elevated troponin Code(s): R74.8 - ABNORMAL LEVELS OF OTHER SERUM ENZYMES (4) Acute on chronic diastolic CHF (congestive heart failure) Assessment/Plan: Pt has perids of relatively stable breathing, but increasingly frequent and lengthy episodes, especially at night, of inability to breathe easily. On losartan, amlodipine, and PO furosemide. On bronchodilators, steroids, antibiotics, O2. On chemotherapeutic agents. F/u BUn/Cr (improving), electrolytes, Is and Os, daily weight. Code(s): I50.33 - ACUTE ON CHRONIC DIASTOLIC (CONGESTIVE) HEART FAILURE (5) Depression Assessment/Plan: Pt is grieving over the futility of trying to treat her cancer. She shows copies of her tests and says "it's spread all over". She has been, and is still angry, but is also increasingly resigned to the diagnosis. Code(s): F32.9 - MAJOR DEPRESSIVE DISORDER, SINGLE EPISODE, UNSPECIFIED
--- NOTE | 2018-11-02 12:54 | DS ---
Physical Examination Vital Signs: Vital Signs Temperature 97.6 F 11/02/18 08:39 Pulse Rate 100 H 11/02/18 08:39 Respiratory Rate 20 11/02/18 08:48 Blood Pressure 145/77 11/02/18 08:39 O2 Sat by Pulse Oximetry (%) 96 11/02/18 08:48 Constitutional: Yes: Calm Cardiovascular: Yes: Regular Rate and Rhythm, S1, S2 Respiratory: Yes: Diminished, On Nasal O2 Gastrointestinal: Yes: Normal Bowel Sounds, Soft Edema: Yes Neurological: Yes: Alert, Oriented Labs: CBC, BMP 10/30/18 09:40 10/30/18 09:40 Discharge Summary Reason For Visit: ACUTE EXACERBATION OF CHRONIC OBSTRUCTIVE PULMONAR Current Active Problems Acute on chronic diastolic CHF (congestive heart failure) (Acute) COPD exacerbation (Acute) Diabetes (Acute) Elevated troponin (Acute) Shortness of breath (Acute) Hospital Course: - Primary Care Physician PCP: Juventino Ruby I - Admission Chief Complaint: SOB History of Present Illness: Patient is a 73 y/o female with past medical history of Lung CA stage 4 (on Immunotherapy), HTN, RA, COPD. Patient states she has been experiencing worsening SOB for about 1 week. She presented to [facility] today for her immunotherapy appointment today where she was seen by Dr. Camarillo and he stated she should go down to ER for further evaluation. Denies chest pain, palpitations, or dizziness with SOB. got abx course complete 7 days of augmentin nystatin started for thrush and diflucan as well ct scan done shows metastatic lung disease and liver mets patient DNR///DNI wants to g [facility] for rehab Condition: Improved - Instructions Disposition: [facility] F[facility]ILITY - Home Medications Comprehensive Discharge Medication List: Ambulatory Orders Alprazolam [Xanax] 0.25 mg PO DAILY 06/15/18 Losartan Potassium [Cozaar -] 50 mg PO DAILY 06/15/18 Pantoprazole Sodium [Protonix -] 40 mg PO DAILY 06/15/18 Zolpidem Tartrate [Ambien] 10 mg PO DAILY 06/15/18 Acetaminophen [Tylenol .Extra-Strength -] 500 mg PO Q6H PRN tablet 06/19/18 Atovaquone [Mepron Oral Solution -] 1,500 mg PO DAILY@0800 #1 bottle 06/19/18 Albuterol Sulfate Inhaler - [Ventolin HFA Inhaler -] 2 puff IH Q6H PRN inhaler 06/25/18 Amlodipine Besylate [Norvasc -] 5 mg PO DAILY tablet 06/25/18 Leflunomide [Arava -] 20 mg PO DAILY #60 tablet 06/25/18 Sulfasalazine [Azulfidine En-Tabs -] 1,000 mg PO BID #120 tablet. 06/25/18 traMADol HCL [Ultram -] 50 mg PO Q8H PRN tablet MDD 3 06/25/18 Furosemide [Lasix -] 20 mg PO DAILY #30 tablet 08/29/18 predniSONE [Deltasone -] 20 mg PO DAILY #14 tablet 09/20/18 Albuterol 0.083% Nebulizer Yudy [Ventolin 0.083% Nebulizer Soln -] 1 amp NEB RQID amp 09/24/18 Guaifenesin [Robitussin -] 10 ml PO Q6H PRN cup 09/24/18 Acetylcysteine Po/INH 20% [Mucomyst 20 Oral / INH Use Only*] 200 mg NEB RQID vial 10/03/18 Heparin - 5,000 unit SQ BID vial 10/03/18 Selin-Cath Flush [Selin-Cath Flush -] 10 ml IVPUSH PRN PRN ml 10/03/18 Buspirone HCl [Buspar -] 5 mg PO BID tablet 10/10/18
--- NOTE | 2018-11-02 12:58 | PN ---
Progress Note (short form) - Note Progress Note: awating to go to [facility] once authorization prednisone 20mg po daily for 7 days diflucan 100mg for 10 days Problem List - Problems (1) COPD (chronic obstructive pulmonary disease) Code(s): J44.9 - CHRONIC OBSTRUCTIVE PULMONARY DISEASE, UNSPECIFIED (2) Metastatic lung cancer (metastasis from lung to other site) Code(s): C34.90 - MALIGNANT NEOPLASM OF UNSP PART OF UNSP BRONCHUS OR LUNG (3) Shortness of breath Code(s): R06.02 - SHORTNESS OF BREATH
--- NOTE | 2018-11-02 20:26 | PN ---
Progress Note (short form) - Note Progress Note: Patient seen and examined Feels better AFFVSS Cor: RSR, No murmurs, No gallops Lungs: Clear to P&A Abd: Soft, Normal bowel sounds, No organomegaly Ext:No significant edema Labs/Meds reviewed A/P 73 y/o patient with metastatic squamous cell lung cancer, s/p multiplelines of therapy, on nivolumab CT scan shows progressive lung mets/ hepatic mets Patient is DNR/DNI Discussed at length with patient . For SNF placement
[2018-11-02] MEDS ORDERED: PT OWN MED DRAWER 7, Y5N ONE (23:10)
[2018-11-02] MEDS: guaiFENesin 200 MG/10 ML 10 ML UNIT-DOSE CUPS PO PRN (23:33)
[2018-11-03] MEDS: NYSTATIN 500,000 UNITS/5 ML SUSPENSION PO SCH ×4 (00:36→17:00)
[2018-11-03] MEDS: ALPRAZolam 0.25 MG TABLET PO PRN (00:58)
[2018-11-03] MEDS: ZOLPIDEM TARTRATE 5 MG TABLET PO PRN (00:58)
[2018-11-03] MEDS: methylPREDNISolone NA SUCC 40 MG/1 ML VIAL IVPB SCH ×2 (05:32→17:00)
[2018-11-03] MEDS ORDERED: PT OWN MED DRAWER 7, Y5N ONE ×4 (08:22→21:31)
[2018-11-03] MEDS: ATOVAQUONE 750 MG/5 ML (UNIT-DOSE PACKAGING) PO SCH ×2 (08:47→09:05)
[2018-11-03] MEDS: amLODIPine BESYLATE 5 MG TABLET (FP) PO SCH (09:06)
[2018-11-03] MEDS: busPIRone HCL 5 MG TABLET PO SCH ×2 (09:06→21:59)
[2018-11-03] MEDS: LOSARTAN POTASSIUM 50 MG TABLET (FP) PO SCH (09:06)
[2018-11-03] MEDS: FUROSEMIDE 20 MG TABLET (FP) PO SCH (09:06)
[2018-11-03] MEDS: FLUCONAZOLE 100 MG TABLET (UD) PO SCH (09:06)
[2018-11-03] MEDS: LEFLUNOMIDE 10 MG TABLET PO SCH (09:07)
[2018-11-03] MEDS: PANTOPRAZOLE 40 MG TABLET (FP) PO SCH (09:08)
--- NOTE | 2018-11-03 09:12 | PN ---
Progress Note, Physician History of Present Illness: PULMONARY ALERT,COMFORTABLE,-RESP DISTRESS - Current Medication List Current Medications: Active Medications Acetaminophen (Tylenol -) 500 mg PO Q6H PRN PRN Reason: PAIN 6-10 Last Admin: 10/26/18 17:24 Dose: 500 mg Albuterol Sulfate (Ventolin 0.083% Nebulizer Soln -) 1 amp NEB Q6H PRN PRN Reason: SHORT OF BREATH/WHEEZING Last Admin: 10/30/18 04:57 Dose: 1 amp Alprazolam (Xanax -) 0.5 mg PO BID PRN PRN Reason: ANXIETY Last Admin: 11/03/18 00:58 Dose: 0.5 mg Amlodipine Besylate (Norvasc -) 5 mg PO DAILY [facility] Last Admin: 11/03/18 09:06 Dose: 5 mg Atovaquone (Mepron -) 1,500 mg PO DAILY@0800 [facility] Last Admin: 11/03/18 09:05 Dose: 1,500 mg Buspirone HCl (Buspar -) 5 mg PO BID [facility] Last Admin: 11/03/18 09:06 Dose: 5 mg Fluconazole (Diflucan -) 100 mg PO DAILY [facility] Last Admin: 11/03/18 09:06 Dose: 100 mg Furosemide (Lasix -) 20 mg PO DAILY [facility] Last Admin: 11/03/18 09:06 Dose: 20 mg Guaifenesin (Robitussin -) 10 ml PO Q6H PRN PRN Reason: COUGH Last Admin: 11/02/18 23:33 Dose: 10 ml Insulin Aspart (Novolog Vial Sliding Scale -) 1 vial SQ TIDAC [facility]; Protocol Last Admin: 11/02/18 16:44 Dose: Not Given Leflunomide (Arava -) 20 mg PO DAILY [facility] Last Admin: 11/03/18 09:07 Dose: 20 mg Losartan Potassium (Cozaar -) 50 mg PO DAILY [facility] Last Admin: 11/03/18 09:06 Dose: 50 mg Methylprednisolone Sodium Succinate (Solu-Medrol -) 40 mg IVPB Q12H [facility] Last Admin: 11/03/18 05:32 Dose: 40 mg Nystatin (Nystatin Oral Suspension -) 500,000 units PO Q6HPO [facility] Last Admin: 11/03/18 05:32 Dose: Not Given Pantoprazole Sodium (Protonix -) 40 mg PO DAILY [facility] Last Admin: 11/03/18 09:08 Dose: 40 mg Sulfasalazine (Azulfidine En-Tabs -) 1,000 mg PO BID [facility] Last Admin: 11/03/18 09:07 Dose: 1,000 mg Zolpidem Tartrate (Ambien -) 10 mg PO HS PRN PRN Reason: INSOMNIA Last Admin: 11/03/18 00:58 Dose: 10 mg - Objective Vital Signs: Vital Signs Temperature 97.9 F 11/03/18 05:30 Pulse Rate 101 H 11/03/18 05:30 Respiratory Rate 18 11/03/18 05:30 Blood Pressure 168/96 11/03/18 05:30 O2 Sat by Pulse Oximetry (%) 96 11/02/18 21:00 Constitutional: Yes: Well Nourished, Calm Eyes: Yes: WNL HENT: Yes: WNL Neck: Yes: WNL Cardiovascular: Yes: Regular Rate and Rhythm, S1, S2 Respiratory: Yes: Rales (FEW WHEEEZES) Gastrointestinal: Yes: Normal Bowel Sounds, Soft Extremities: Yes: WNL Edema: Yes Labs: CBC, BMP 10/30/18 09:40 10/30/18 09:40 INR, PTT INR 1.34 (0.83-1.09) H 10/24/18 13:51 Problem List - Problems (1) THIAGO (acute kidney injury) Code(s): N17.9 - ACUTE KIDNEY FAILURE, UNSPECIFIED (2) Acute on chronic respiratory failure with hypoxemia Code(s): J96.21 - ACUTE AND CHRONIC RESPIRATORY FAILURE WITH HYPOXIA (3) COPD (chronic obstructive pulmonary disease) Code(s): J44.9 - CHRONIC OBSTRUCTIVE PULMONARY DISEASE, UNSPECIFIED (4) GERD (gastroesophageal reflux disease) Code(s): K21.9 - GASTRO-ESOPHAGEAL REFLUX DISEASE WITHOUT ESOPHAGITIS (5) Metastatic lung cancer (metastasis from lung to other site) Code(s): C34.90 - MALIGNANT NEOPLASM OF UNSP PART OF UNSP BRONCHUS OR LUNG (6) Rheumatoid arthritis Code(s): M06.9 - RHEUMATOID ARTHRITIS, UNSPECIFIED (7) SCC (squamous cell carcinoma of lung) Code(s): C34.90 - MALIGNANT NEOPLASM OF UNSP PART OF UNSP BRONCHUS OR LUNG (8) SOB (shortness of breath) Code(s): R06.02 - SHORTNESS OF BREATH (9) Stage 4 lung cancer Code(s): C34.90 - MALIGNANT NEOPLASM OF UNSP PART OF UNSP BRONCHUS OR LUNG (10) Depression Code(s): F32.9 - MAJOR DEPRESSIVE DISORDER, SINGLE EPISODE, UNSPECIFIED (11) HTN (hypertension) Code(s): I10 - ESSENTIAL (PRIMARY) HYPERTENSION Assessment/Plan Assessment/Plan Acute Hypoxic Respiratory Failure improved Metastatic Lung Cancer on nivolumab COPD Pleural Effusions +Troponins likely Demand Ischemia Pulmonary HTN Rheumatoid Arthritis HTN THIAGO - steroids - inhaled bronchodilators - O2 to keep SpO2 >90% - DVT prophylaxis - DR KERR
[2018-11-03] MEDS ORDERED: INSULIN (NOVOLOG) ASPART 100 UNITS/ML 10ML VIAL ONE (12:25)
[2018-11-03] MEDS: INSULIN SLIDING SCALE (NOVOLOG) 1 VIAL SQ SCH ×2 (12:27→17:00)
--- NOTE | 2018-11-03 14:40 | PN ---
Progress Note, Physician Chief Complaint: AWAITING TRANSFER TO SNF - Current Medication List Current Medications: Active Medications Acetaminophen (Tylenol -) 500 mg PO Q6H PRN PRN Reason: PAIN 6-10 Last Admin: 10/26/18 17:24 Dose: 500 mg Albuterol Sulfate (Ventolin 0.083% Nebulizer Soln -) 1 amp NEB Q6H PRN PRN Reason: SHORT OF BREATH/WHEEZING Last Admin: 10/30/18 04:57 Dose: 1 amp Alprazolam (Xanax -) 0.5 mg PO BID PRN PRN Reason: ANXIETY Last Admin: 11/03/18 00:58 Dose: 0.5 mg Amlodipine Besylate (Norvasc -) 5 mg PO DAILY [facility] Last Admin: 11/03/18 09:06 Dose: 5 mg Atovaquone (Mepron -) 1,500 mg PO DAILY@0800 [facility] Last Admin: 11/03/18 09:05 Dose: 1,500 mg Buspirone HCl (Buspar -) 5 mg PO BID [facility] Last Admin: 11/03/18 09:06 Dose: 5 mg Fluconazole (Diflucan -) 100 mg PO DAILY [facility] Last Admin: 11/03/18 09:06 Dose: 100 mg Furosemide (Lasix -) 20 mg PO DAILY [facility] Last Admin: 11/03/18 09:06 Dose: 20 mg Guaifenesin (Robitussin -) 10 ml PO Q6H PRN PRN Reason: COUGH Last Admin: 11/02/18 23:33 Dose: 10 ml Insulin Aspart (Novolog Vial Sliding Scale -) 1 vial SQ TIDAC [facility]; Protocol Last Admin: 11/03/18 12:27 Dose: Not Given Leflunomide (Arava -) 20 mg PO DAILY [facility] Last Admin: 11/03/18 09:07 Dose: 20 mg Losartan Potassium (Cozaar -) 50 mg PO DAILY [facility] Last Admin: 11/03/18 09:06 Dose: 50 mg Methylprednisolone Sodium Succinate (Solu-Medrol -) 40 mg IVPB Q12H [facility] Last Admin: 11/03/18 05:32 Dose: 40 mg Nystatin (Nystatin Oral Suspension -) 500,000 units PO Q6HPO [facility] Last Admin: 11/03/18 12:28 Dose: Not Given Pantoprazole Sodium (Protonix -) 40 mg PO DAILY [facility] Last Admin: 11/03/18 09:08 Dose: 40 mg Sulfasalazine (Azulfidine En-Tabs -) 1,000 mg PO BID [facility] Last Admin: 11/03/18 09:07 Dose: 1,000 mg Zolpidem Tartrate (Ambien -) 10 mg PO HS PRN PRN Reason: INSOMNIA Last Admin: 11/03/18 00:58 Dose: 10 mg - Objective Vital Signs: Vital Signs Temperature 97.9 F 11/03/18 05:30 Pulse Rate 101 H 11/03/18 05:30 Respiratory Rate 18 11/03/18 05:30 Blood Pressure 168/96 11/03/18 05:30 O2 Sat by Pulse Oximetry (%) 96 11/02/18 21:00 Constitutional: Yes: Mild Distress Cardiovascular: Yes: Regular Rate and Rhythm Respiratory: Yes: Diminished Gastrointestinal: Yes: Soft Musculoskeletal: Yes: Muscle Weakness Edema: Yes Integumentary: Yes: Venous Stasis Changes Neurological: Yes: Pre-Existing Deficit Psychiatric: Yes: Other (DEPRESSED/ANXIOUS) Labs: CBC, BMP 10/30/18 09:40 10/30/18 09:40 INR, PTT INR 1.34 (0.83-1.09) H 10/24/18 13:51 Problem List - Problems (1) Acute on chronic diastolic CHF (congestive heart failure) Code(s): I50.33 - ACUTE ON CHRONIC DIASTOLIC (CONGESTIVE) HEART FAILURE (2) COPD exacerbation Code(s): J44.1 - CHRONIC OBSTRUCTIVE PULMONARY DISEASE W (ACUTE) EXACERBATION (3) Diabetes Code(s): E11.9 - TYPE 2 DIABETES MELLITUS WITHOUT COMPLICATIONS Qualifiers: Diabetes mellitus complication status: without complication (4) Lung cancer Code(s): C34.90 - MALIGNANT NEOPLASM OF UNSP PART OF UNSP BRONCHUS OR LUNG Qualifiers: Laterality: unspecified laterality Lung location: unspecified part of lung Qualified Code(s): C34.90 - Malignant neoplasm of unspecified part of unspecified bronchus or lung Assessment/Plan DNR/DNI HOSPICE PLACEMENT PENDING PAIN CONTROL XANAX PRN
[2018-11-03] MEDS ORDERED: PORTA CATH FLUSH 10 ML IVPUSH PRN (17:23)
[2018-11-03] MEDS: guaiFENesin 200 MG/10 ML 10 ML UNIT-DOSE CUPS PO PRN (21:59)
[2018-11-04] MEDS: ZOLPIDEM TARTRATE 5 MG TABLET PO PRN (00:55)
[2018-11-04] MEDS: ALPRAZolam 0.25 MG TABLET PO PRN ×2 (00:55→09:31)
[2018-11-04] MEDS: NYSTATIN 500,000 UNITS/5 ML SUSPENSION PO SCH ×4 (00:57→18:06)
[2018-11-04] MEDS ORDERED: PT OWN MED DRAWER 7, Y5N ONE ×2 (05:48→09:28)
[2018-11-04] MEDS: INSULIN SLIDING SCALE (NOVOLOG) 1 VIAL SQ SCH ×3 (06:05→18:05)
[2018-11-04] MEDS: methylPREDNISolone NA SUCC 40 MG/1 ML VIAL IVPB SCH ×3 (06:05→18:06)
[2018-11-04] MEDS: ALBUTEROL SO4 0.083% IH SOL 2.5 MG/3 ML VIAL.NEB. NEB PRN (08:23)
--- NOTE | 2018-11-04 09:20 | PN ---
Progress Note, Physician History of Present Illness: pulmonary alert,c/o increased sob today,-cp - Current Medication List Current Medications: Active Medications Acetaminophen (Tylenol -) 500 mg PO Q6H PRN PRN Reason: PAIN 6-10 Last Admin: 10/26/18 17:24 Dose: 500 mg Albuterol Sulfate (Ventolin 0.083% Nebulizer Soln -) 1 amp NEB Q6H PRN PRN Reason: SHORT OF BREATH/WHEEZING Last Admin: 11/04/18 08:23 Dose: 1 amp Alprazolam (Xanax -) 0.5 mg PO BID PRN PRN Reason: ANXIETY Last Admin: 11/04/18 00:55 Dose: 0.5 mg Amlodipine Besylate (Norvasc -) 5 mg PO DAILY [facility] Last Admin: 11/03/18 09:06 Dose: 5 mg Atovaquone (Mepron -) 1,500 mg PO DAILY@0800 [facility] Last Admin: 11/03/18 09:05 Dose: 1,500 mg Buspirone HCl (Buspar -) 5 mg PO BID [facility] Last Admin: 11/03/18 21:59 Dose: 5 mg Fluconazole (Diflucan -) 100 mg PO DAILY [facility] Last Admin: 11/03/18 09:06 Dose: 100 mg Furosemide (Lasix -) 20 mg PO DAILY [facility] Last Admin: 11/03/18 09:06 Dose: 20 mg Guaifenesin (Robitussin -) 10 ml PO Q6H PRN PRN Reason: COUGH Last Admin: 11/03/18 21:59 Dose: 10 ml IV Flush (Selin-Cath Flush) 10 ml IVPUSH PRN PRN PRN Reason: FLUSH Insulin Aspart (Novolog Vial Sliding Scale -) 1 vial SQ TIDAC [facility]; Protocol Last Admin: 11/04/18 06:05 Dose: Not Given Leflunomide (Arava -) 20 mg PO DAILY [facility] Last Admin: 11/03/18 09:07 Dose: 20 mg Losartan Potassium (Cozaar -) 50 mg PO DAILY [facility] Last Admin: 11/03/18 09:06 Dose: 50 mg Methylprednisolone Sodium Succinate (Solu-Medrol -) 40 mg IVPB Q12H [facility] Last Admin: 11/04/18 06:05 Dose: 40 mg Nystatin (Nystatin Oral Suspension -) 500,000 units PO Q6HPO [facility] Last Admin: 11/04/18 06:05 Dose: Not Given Pantoprazole Sodium (Protonix -) 40 mg PO DAILY [facility] Last Admin: 11/03/18 09:08 Dose: 40 mg Sulfasalazine (Azulfidine En-Tabs -) 1,000 mg PO BID [facility] Last Admin: 11/03/18 22:02 Dose: Not Given Zolpidem Tartrate (Ambien -) 10 mg PO HS PRN PRN Reason: INSOMNIA Last Admin: 11/04/18 00:55 Dose: 10 mg - Objective Vital Signs: Vital Signs Temperature 97.4 F L 11/04/18 06:00 Pulse Rate 95 H 11/04/18 06:00 Respiratory Rate 18 11/04/18 06:00 Blood Pressure 151/96 11/04/18 06:00 O2 Sat by Pulse Oximetry (%) 96 11/04/18 08:36 Constitutional: Yes: Well Nourished, Calm Eyes: Yes: WNL HENT: Yes: WNL Neck: Yes: WNL Cardiovascular: Yes: Regular Rate and Rhythm, S1, S2 Respiratory: Yes: Wheezes (few wheezes) Gastrointestinal: Yes: Normal Bowel Sounds, Soft Extremities: Yes: WNL Edema: Yes Labs: CBC, BMP 10/30/18 09:40 10/30/18 09:40 INR, PTT INR 1.34 (0.83-1.09) H 10/24/18 13:51 Problem List - Problems (1) THIAGO (acute kidney injury) Code(s): N17.9 - ACUTE KIDNEY FAILURE, UNSPECIFIED (2) Acute on chronic respiratory failure with hypoxemia Code(s): J96.21 - ACUTE AND CHRONIC RESPIRATORY FAILURE WITH HYPOXIA (3) COPD (chronic obstructive pulmonary disease) Code(s): J44.9 - CHRONIC OBSTRUCTIVE PULMONARY DISEASE, UNSPECIFIED (4) GERD (gastroesophageal reflux disease) Code(s): K21.9 - GASTRO-ESOPHAGEAL REFLUX DISEASE WITHOUT ESOPHAGITIS (5) Metastatic lung cancer (metastasis from lung to other site) Code(s): C34.90 - MALIGNANT NEOPLASM OF UNSP PART OF UNSP BRONCHUS OR LUNG (6) Rheumatoid arthritis Code(s): M06.9 - RHEUMATOID ARTHRITIS, UNSPECIFIED (7) SCC (squamous cell carcinoma of lung) Code(s): C34.90 - MALIGNANT NEOPLASM OF UNSP PART OF UNSP BRONCHUS OR LUNG (8) SOB (shortness of breath) Code(s): R06.02 - SHORTNESS OF BREATH (9) Stage 4 lung cancer Code(s): C34.90 - MALIGNANT NEOPLASM OF UNSP PART OF UNSP BRONCHUS OR LUNG (10) Depression Code(s): F32.9 - MAJOR DEPRESSIVE DISORDER, SINGLE EPISODE, UNSPECIFIED (11) HTN (hypertension) Code(s): I10 - ESSENTIAL (PRIMARY) HYPERTENSION Assessment/Plan Assessment/Plan Acute Hypoxic Respiratory Failure improved Metastatic Lung Cancer on nivolumab COPD Pleural Effusions +Troponins likely Demand Ischemia Pulmonary HTN Rheumatoid Arthritis HTN THIAGO - continue steroids will increase to q8h - inhaled bronchodilators - O2 to keep SpO2 >90% - DVT prophylaxis - DR KERR
[2018-11-04] MEDS: busPIRone HCL 5 MG TABLET PO SCH (09:31)
[2018-11-04] MEDS: amLODIPine BESYLATE 5 MG TABLET (FP) PO SCH (09:31)
[2018-11-04] MEDS: FLUCONAZOLE 100 MG TABLET (UD) PO SCH (09:31)
[2018-11-04] MEDS: guaiFENesin 200 MG/10 ML 10 ML UNIT-DOSE CUPS PO PRN (09:31)
[2018-11-04] MEDS: FUROSEMIDE 20 MG TABLET (FP) PO SCH (09:31)
[2018-11-04] MEDS: PANTOPRAZOLE 40 MG TABLET (FP) PO SCH (09:31)
[2018-11-04] MEDS: LOSARTAN POTASSIUM 50 MG TABLET (FP) PO SCH (09:31)
[2018-11-04] MEDS: LEFLUNOMIDE 10 MG TABLET PO SCH (09:32)
[2018-11-04] MEDS: ATOVAQUONE 750 MG/5 ML (UNIT-DOSE PACKAGING) PO SCH (09:32)
--- NOTE | 2018-11-04 16:19 | PN ---
Progress Note, Physician Chief Complaint: ASLEEP CALM NAD - Current Medication List Current Medications: Active Medications Acetaminophen (Tylenol -) 500 mg PO Q6H PRN PRN Reason: PAIN 6-10 Last Admin: 10/26/18 17:24 Dose: 500 mg Albuterol Sulfate (Ventolin 0.083% Nebulizer Soln -) 1 amp NEB Q6H PRN PRN Reason: SHORT OF BREATH/WHEEZING Last Admin: 11/04/18 08:23 Dose: 1 amp Alprazolam (Xanax -) 0.5 mg PO BID PRN PRN Reason: ANXIETY Last Admin: 11/04/18 09:31 Dose: 0.5 mg Amlodipine Besylate (Norvasc -) 5 mg PO DAILY [facility] Last Admin: 11/04/18 09:31 Dose: 5 mg Atovaquone (Mepron -) 1,500 mg PO DAILY@0800 [facility] Last Admin: 11/04/18 09:32 Dose: 1,500 mg Buspirone HCl (Buspar -) 5 mg PO BID [facility] Last Admin: 11/04/18 09:31 Dose: 5 mg Fluconazole (Diflucan -) 100 mg PO DAILY [facility] Last Admin: 11/04/18 09:31 Dose: 100 mg Furosemide (Lasix -) 20 mg PO DAILY [facility] Last Admin: 11/04/18 09:31 Dose: 20 mg Guaifenesin (Robitussin -) 10 ml PO Q6H PRN PRN Reason: COUGH Last Admin: 11/04/18 09:31 Dose: 10 ml IV Flush (Selin-Cath Flush) 10 ml IVPUSH PRN PRN PRN Reason: FLUSH Insulin Aspart (Novolog Vial Sliding Scale -) 1 vial SQ TIDAC [facility]; Protocol Last Admin: 11/04/18 12:01 Dose: Not Given Leflunomide (Arava -) 20 mg PO DAILY [facility] Last Admin: 11/04/18 09:32 Dose: 20 mg Losartan Potassium (Cozaar -) 50 mg PO DAILY [facility] Last Admin: 11/04/18 09:31 Dose: 50 mg Methylprednisolone Sodium Succinate (Solu-Medrol -) 40 mg IVPB Q8H-IV [facility] Last Admin: 11/04/18 09:31 Dose: 40 mg Nystatin (Nystatin Oral Suspension -) 500,000 units PO Q6HPO [facility] Last Admin: 11/04/18 12:01 Dose: Not Given Pantoprazole Sodium (Protonix -) 40 mg PO DAILY [facility] Last Admin: 11/04/18 09:31 Dose: 40 mg Sulfasalazine (Azulfidine En-Tabs -) 1,000 mg PO BID [facility] Last Admin: 11/04/18 09:32 Dose: 1,000 mg Zolpidem Tartrate (Ambien -) 10 mg PO HS PRN PRN Reason: INSOMNIA Last Admin: 11/04/18 00:55 Dose: 10 mg - Objective Vital Signs: Vital Signs Temperature 97.6 F 11/04/18 14:00 Pulse Rate 88 11/04/18 14:00 Respiratory Rate 20 11/04/18 14:00 Blood Pressure 123/72 11/04/18 14:00 O2 Sat by Pulse Oximetry (%) 96 11/04/18 08:36 Constitutional: Yes: No Distress Cardiovascular: Yes: Regular Rate and Rhythm Respiratory: Yes: Diminished, On Nasal O2 Gastrointestinal: Yes: Soft Labs: CBC, BMP 10/30/18 09:40 10/30/18 09:40 INR, PTT INR 1.34 (0.83-1.09) H 10/24/18 13:51 Problem List - Problems (1) Acute on chronic diastolic CHF (congestive heart failure) Code(s): I50.33 - ACUTE ON CHRONIC DIASTOLIC (CONGESTIVE) HEART FAILURE (2) COPD exacerbation Code(s): J44.1 - CHRONIC OBSTRUCTIVE PULMONARY DISEASE W (ACUTE) EXACERBATION (3) Diabetes Code(s): E11.9 - TYPE 2 DIABETES MELLITUS WITHOUT COMPLICATIONS Qualifiers: Diabetes mellitus complication status: without complication (4) Lung cancer Code(s): C34.90 - MALIGNANT NEOPLASM OF UNSP PART OF UNSP BRONCHUS OR LUNG Qualifiers: Laterality: unspecified laterality Lung location: unspecified part of lung Qualified Code(s): C34.90 - Malignant neoplasm of unspecified part of unspecified bronchus or lung Assessment/Plan DNR/DNI HOSPICE PLACEMENT PENDING PAIN CONTROL XANAX PRN
[2018-11-05] MEDS: ZOLPIDEM TARTRATE 5 MG TABLET PO PRN (00:58)
[2018-11-05] MEDS: NYSTATIN 500,000 UNITS/5 ML SUSPENSION PO SCH ×4 (00:58→17:40)
[2018-11-05] MEDS: ALPRAZolam 0.25 MG TABLET PO PRN (00:58)
[2018-11-05] MEDS: busPIRone HCL 5 MG TABLET PO SCH ×3 (00:58→22:30)
[2018-11-05] MEDS: methylPREDNISolone NA SUCC 40 MG/1 ML VIAL IVPB SCH ×3 (01:01→17:45)
[2018-11-05] MEDS: INSULIN SLIDING SCALE (NOVOLOG) 1 VIAL SQ SCH ×2 (06:47→11:38)
--- NOTE | 2018-11-05 08:00 | PN ---
Progress Note, Physician History of Present Illness: 73 yo female pmh active stage 4 lung ca sp R upper lobectomy currently on immunotherapy (1X per month as per Dr. Paige, last treatment today) htn, ra, copd, with recent admission for acute on chronic respiratory failure (DC on ) presents from [facility] for SOB. Pt states she was at her appointment for immunotherapy with Dr. Camarillo today and after treatment was instructed to head to the ER for admission for SOB. Pt admits to 2 days of worsening SOB especially with laying flat and bilateral lower limb edema. Pt did not take lasix today (40 mg daily home dose). Denies CP, palpitations, hemoptysis, F/C/N/V, calf tenderness/leg pain, changes in bowel or bladder habits. - Current Medication List Current Medications: Active Medications Acetaminophen (Tylenol -) 500 mg PO Q6H PRN PRN Reason: PAIN 6-10 Last Admin: 10/26/18 17:24 Dose: 500 mg Albuterol Sulfate (Ventolin 0.083% Nebulizer Soln -) 1 amp NEB Q6H PRN PRN Reason: SHORT OF BREATH/WHEEZING Last Admin: 11/04/18 08:23 Dose: 1 amp Alprazolam (Xanax -) 0.5 mg PO BID PRN PRN Reason: ANXIETY Last Admin: 11/05/18 00:58 Dose: 0.5 mg Amlodipine Besylate (Norvasc -) 5 mg PO DAILY [facility] Last Admin: 11/04/18 09:31 Dose: 5 mg Atovaquone (Mepron -) 1,500 mg PO DAILY@0800 [facility] Last Admin: 11/04/18 09:32 Dose: 1,500 mg Buspirone HCl (Buspar -) 5 mg PO BID [facility] Last Admin: 11/05/18 00:58 Dose: Not Given Fluconazole (Diflucan -) 100 mg PO DAILY [facility] Last Admin: 11/04/18 09:31 Dose: 100 mg Furosemide (Lasix -) 20 mg PO DAILY [facility] Last Admin: 11/04/18 09:31 Dose: 20 mg Guaifenesin (Robitussin -) 10 ml PO Q6H PRN PRN Reason: COUGH Last Admin: 11/04/18 09:31 Dose: 10 ml IV Flush (Selin-Cath Flush) 10 ml IVPUSH PRN PRN PRN Reason: FLUSH Insulin Aspart (Novolog Vial Sliding Scale -) 1 vial SQ TIDAC [facility]; Protocol Last Admin: 11/05/18 06:47 Dose: Not Given Leflunomide (Arava -) 20 mg PO DAILY [facility] Last Admin: 11/04/18 09:32 Dose: 20 mg Losartan Potassium (Cozaar -) 50 mg PO DAILY [facility] Last Admin: 11/04/18 09:31 Dose: 50 mg Methylprednisolone Sodium Succinate (Solu-Medrol -) 40 mg IVPB Q8H-IV [facility] Last Admin: 11/05/18 01:01 Dose: 40 mg Nystatin (Nystatin Oral Suspension -) 500,000 units PO Q6HPO [facility] Last Admin: 11/05/18 06:46 Dose: Not Given Pantoprazole Sodium (Protonix -) 40 mg PO DAILY [facility] Last Admin: 11/04/18 09:31 Dose: 40 mg Sulfasalazine (Azulfidine En-Tabs -) 1,000 mg PO BID [facility] Last Admin: 11/05/18 00:58 Dose: Not Given Zolpidem Tartrate (Ambien -) 10 mg PO HS PRN PRN Reason: INSOMNIA Last Admin: 11/05/18 00:58 Dose: 10 mg - Objective Vital Signs: Vital Signs Temperature 98.2 F 11/05/18 06:00 Pulse Rate 100 H 11/05/18 06:00 Respiratory Rate 20 11/05/18 06:00 Blood Pressure 154/99 11/05/18 06:00 O2 Sat by Pulse Oximetry (%) 96 11/04/18 08:36 Eyes: Yes: WNL, Conjunctiva Clear, EOM Intact HENT: Yes: WNL, Atraumatic, Normocephalic Neck: Yes: WNL, Supple, Trachea Midline Cardiovascular: Yes: WNL, Regular Rate and Rhythm Respiratory: Yes: WNL, Regular, CTA Bilaterally Gastrointestinal: Yes: WNL, Normal Bowel Sounds Genitourinary: Yes: WNL Musculoskeletal: Yes: WNL Extremities: Yes: WNL Edema: No Integumentary: Yes: WNL Neurological: Yes: WNL, Alert, Oriented ...Motor Strength: WNL Psychiatric: Yes: WNL Labs: CBC, BMP 10/30/18 09:40 10/30/18 09:40 INR, PTT INR 1.34 (0.83-1.09) H 10/24/18 13:51 Assessment/Plan - Problems (1) COPD (chronic obstructive pulmonary disease) Assessment/Plan: bronchodilators, steroids, antibiotics per ID, tail board man. Code(s): J44.9 - CHRONIC OBSTRUCTIVE PULMONARY DISEASE, UNSPECIFIED (2) Metastatic lung cancer (metastasis from lung to other site) Assessment/Plan: F/u [facility] oncologist Pt says that, since she decided on [place], she does not want more physical therapy. Code(s): C34.90 - MALIGNANT NEOPLASM OF UNSP PART OF UNSP BRONCHUS OR LUNG (3) Elevated troponin Code(s): R74.8 - ABNORMAL LEVELS OF OTHER SERUM ENZYMES (4) Acute on chronic diastolic CHF (congestive heart failure) Assessment/Plan: Pt has perids of relatively stable breathing, but increasingly frequent and lengthy episodes, especially at night, of inability to breathe easily. On losartan, amlodipine, and PO furosemide. On bronchodilators, steroids, antibiotics, O2. On chemotherapeutic agents. F/u BUn/Cr (improving), electrolytes, Is and Os, daily weight. Code(s): I50.33 - ACUTE ON CHRONIC DIASTOLIC (CONGESTIVE) HEART FAILURE (5) Depression Assessment/Plan: Pt is grieving over the futility of trying to treat her cancer. She shows copies of her tests and says "it's spread all over". She has been, and is still angry, but is also increasingly resigned to the diagnosis. Code(s): F32.9 - MAJOR DEPRESSIVE DISORDER, SINGLE EPISODE, UNSPECIFIED
[2018-11-05] MEDS ORDERED: PT OWN MED DRAWER 7, Y5N ONE (08:29)
[2018-11-05] MEDS: ATOVAQUONE 750 MG/5 ML (UNIT-DOSE PACKAGING) PO SCH (08:55)
[2018-11-05] MEDS: FUROSEMIDE 20 MG TABLET (FP) PO SCH (09:27)
[2018-11-05] MEDS: LOSARTAN POTASSIUM 50 MG TABLET (FP) PO SCH (09:27)
[2018-11-05] MEDS: PANTOPRAZOLE 40 MG TABLET (FP) PO SCH (09:27)
[2018-11-05] MEDS: FLUCONAZOLE 100 MG TABLET (UD) PO SCH (09:27)
[2018-11-05] MEDS: amLODIPine BESYLATE 5 MG TABLET (FP) PO SCH (09:28)
[2018-11-05] MEDS: LEFLUNOMIDE 10 MG TABLET PO SCH (09:29)
--- NOTE | 2018-11-05 11:08 | PN ---
Progress Note, Physician History of Present Illness: PULMONARY ALERT,LESS DYSPNEIC,LESS COUGH - Current Medication List Current Medications: Active Medications Acetaminophen (Tylenol -) 500 mg PO Q6H PRN PRN Reason: PAIN 6-10 Last Admin: 10/26/18 17:24 Dose: 500 mg Albuterol Sulfate (Ventolin 0.083% Nebulizer Soln -) 1 amp NEB Q6H PRN PRN Reason: SHORT OF BREATH/WHEEZING Last Admin: 11/04/18 08:23 Dose: 1 amp Alprazolam (Xanax -) 0.5 mg PO BID PRN PRN Reason: ANXIETY Last Admin: 11/05/18 00:58 Dose: 0.5 mg Amlodipine Besylate (Norvasc -) 5 mg PO DAILY [facility] Last Admin: 11/05/18 09:28 Dose: 5 mg Atovaquone (Mepron -) 1,500 mg PO DAILY@0800 [facility] Last Admin: 11/05/18 08:55 Dose: 1,500 mg Buspirone HCl (Buspar -) 5 mg PO BID [facility] Last Admin: 11/05/18 09:27 Dose: 5 mg Fluconazole (Diflucan -) 100 mg PO DAILY [facility] Last Admin: 11/05/18 09:27 Dose: 100 mg Furosemide (Lasix -) 20 mg PO DAILY [facility] Last Admin: 11/05/18 09:27 Dose: 20 mg Guaifenesin (Robitussin -) 10 ml PO Q6H PRN PRN Reason: COUGH Last Admin: 11/04/18 09:31 Dose: 10 ml IV Flush (Selin-Cath Flush) 10 ml IVPUSH PRN PRN PRN Reason: FLUSH Insulin Aspart (Novolog Vial Sliding Scale -) 1 vial SQ TIDAC [facility]; Protocol Last Admin: 11/05/18 06:47 Dose: Not Given Leflunomide (Arava -) 20 mg PO DAILY [facility] Last Admin: 11/05/18 09:29 Dose: 20 mg Losartan Potassium (Cozaar -) 50 mg PO DAILY [facility] Last Admin: 11/05/18 09:27 Dose: 50 mg Methylprednisolone Sodium Succinate (Solu-Medrol -) 40 mg IVPB Q8H-IV [facility] Last Admin: 11/05/18 09:27 Dose: 40 mg Nystatin (Nystatin Oral Suspension -) 500,000 units PO Q6HPO [facility] Last Admin: 11/05/18 06:46 Dose: Not Given Pantoprazole Sodium (Protonix -) 40 mg PO DAILY [facility] Last Admin: 11/05/18 09:27 Dose: 40 mg Sulfasalazine (Azulfidine En-Tabs -) 1,000 mg PO BID [facility] Last Admin: 11/05/18 09:29 Dose: 1,000 mg Zolpidem Tartrate (Ambien -) 10 mg PO HS PRN PRN Reason: INSOMNIA Last Admin: 11/05/18 00:58 Dose: 10 mg - Objective Vital Signs: Vital Signs Temperature 97.6 F 11/05/18 10:00 Pulse Rate 102 H 11/05/18 10:00 Respiratory Rate 17 11/05/18 10:00 Blood Pressure 164/106 H 11/05/18 10:00 O2 Sat by Pulse Oximetry (%) 97 11/05/18 09:00 Constitutional: Yes: Well Nourished, Calm Eyes: Yes: WNL HENT: Yes: WNL Neck: Yes: WNL Cardiovascular: Yes: Regular Rate and Rhythm, S1, S2 Respiratory: Yes: Rales (FEW CRACKLES) Gastrointestinal: Yes: Normal Bowel Sounds, Soft Extremities: Yes: WNL Edema: Yes Labs: CBC, BMP Problem List - Problems (1) THIAGO (acute kidney injury) Code(s): N17.9 - ACUTE KIDNEY FAILURE, UNSPECIFIED (2) Acute on chronic respiratory failure with hypoxemia Code(s): J96.21 - ACUTE AND CHRONIC RESPIRATORY FAILURE WITH HYPOXIA (3) COPD (chronic obstructive pulmonary disease) Code(s): J44.9 - CHRONIC OBSTRUCTIVE PULMONARY DISEASE, UNSPECIFIED (4) GERD (gastroesophageal reflux disease) Code(s): K21.9 - GASTRO-ESOPHAGEAL REFLUX DISEASE WITHOUT ESOPHAGITIS (5) Metastatic lung cancer (metastasis from lung to other site) Code(s): C34.90 - MALIGNANT NEOPLASM OF UNSP PART OF UNSP BRONCHUS OR LUNG (6) Rheumatoid arthritis Code(s): M06.9 - RHEUMATOID ARTHRITIS, UNSPECIFIED (7) SCC (squamous cell carcinoma of lung) Code(s): C34.90 - MALIGNANT NEOPLASM OF UNSP PART OF UNSP BRONCHUS OR LUNG (8) SOB (shortness of breath) Code(s): R06.02 - SHORTNESS OF BREATH (9) Stage 4 lung cancer Code(s): C34.90 - MALIGNANT NEOPLASM OF UNSP PART OF UNSP BRONCHUS OR LUNG (10) Depression Code(s): F32.9 - MAJOR DEPRESSIVE DISORDER, SINGLE EPISODE, UNSPECIFIED (11) HTN (hypertension) Code(s): I10 - ESSENTIAL (PRIMARY) HYPERTENSION Assessment/Plan Assessment/Plan Acute Hypoxic Respiratory Failure improved Metastatic Lung Cancer on nivolumab COPD Pleural Effusions +Troponins likely [place]and Ischemia Pulmonary HTN Rheumatoid Arthritis HTN THIAGO - continue steroids - inhaled bronchodilators - O2 to keep SpO2 >90% - DVT prophylaxis - [place] placement DR KERR
--- NOTE | 2018-11-05 13:13 | PN ---
Progress Note, Physician Chief Complaint: patient seen and examined awaiting to go to [facility] - Current Medication List Current Medications: Active Medications Acetaminophen (Tylenol -) 500 mg PO Q6H PRN PRN Reason: PAIN 6-10 Last Admin: 10/26/18 17:24 Dose: 500 mg Albuterol Sulfate (Ventolin 0.083% Nebulizer Soln -) 1 amp NEB Q6H PRN PRN Reason: SHORT OF BREATH/WHEEZING Last Admin: 11/04/18 08:23 Dose: 1 amp Alprazolam (Xanax -) 0.5 mg PO BID PRN PRN Reason: ANXIETY Last Admin: 11/05/18 00:58 Dose: 0.5 mg Amlodipine Besylate (Norvasc -) 5 mg PO DAILY [facility] Last Admin: 11/05/18 09:28 Dose: 5 mg Atovaquone (Mepron -) 1,500 mg PO DAILY@0800 [facility] Last Admin: 11/05/18 08:55 Dose: 1,500 mg Buspirone HCl (Buspar -) 5 mg PO BID [facility] Last Admin: 11/05/18 09:27 Dose: 5 mg Fluconazole (Diflucan -) 100 mg PO DAILY [facility] Last Admin: 11/05/18 09:27 Dose: 100 mg Furosemide (Lasix -) 20 mg PO DAILY [facility] Last Admin: 11/05/18 09:27 Dose: 20 mg Guaifenesin (Robitussin -) 10 ml PO Q6H PRN PRN Reason: COUGH Last Admin: 11/04/18 09:31 Dose: 10 ml IV Flush (Selin-Cath Flush) 10 ml IVPUSH PRN PRN PRN Reason: FLUSH Insulin Aspart (Novolog Vial Sliding Scale -) 1 vial SQ TIDAC [facility]; Protocol Last Admin: 11/05/18 06:47 Dose: Not Given Leflunomide (Arava -) 20 mg PO DAILY [facility] Last Admin: 11/05/18 09:29 Dose: 20 mg Losartan Potassium (Cozaar -) 50 mg PO DAILY [facility] Last Admin: 11/05/18 09:27 Dose: 50 mg Methylprednisolone Sodium Succinate (Solu-Medrol -) 40 mg IVPB Q8H-IV [facility] Last Admin: 11/05/18 09:27 Dose: 40 mg Nystatin (Nystatin Oral Suspension -) 500,000 units PO Q6HPO [facility] Last Admin: 11/05/18 12:16 Dose: Not Given Pantoprazole Sodium (Protonix -) 40 mg PO DAILY [facility] Last Admin: 11/05/18 09:27 Dose: 40 mg Sulfasalazine (Azulfidine En-Tabs -) 1,000 mg PO BID [facility] Last Admin: 11/05/18 09:29 Dose: 1,000 mg Zolpidem Tartrate (Ambien -) 10 mg PO HS PRN PRN Reason: INSOMNIA Last Admin: 11/05/18 00:58 Dose: 10 mg - Objective Vital Signs: Vital Signs Temperature 97.6 F 11/05/18 10:00 Pulse Rate 102 H 11/05/18 10:00 Respiratory Rate 17 11/05/18 10:00 Blood Pressure 164/106 H 11/05/18 10:00 O2 Sat by Pulse Oximetry (%) 97 11/05/18 09:00 Constitutional: Yes: Calm Cardiovascular: Yes: Regular Rate and Rhythm, S1, S2 Respiratory: Yes: CTA Bilaterally, Diminished, On Nasal O2 Gastrointestinal: Yes: Normal Bowel Sounds, Soft Edema: Yes Neurological: Yes: Alert, Oriented Labs: CBC, BMP 10/30/18 09:40 10/30/18 09:40 INR, PTT INR 1.34 (0.83-1.09) H 10/24/18 13:51 Problem List - Problems (1) COPD (chronic obstructive pulmonary disease) Assessment/Plan: chest ct noted prednsione oxygen bronchodilators Code(s): J44.9 - CHRONIC OBSTRUCTIVE PULMONARY DISEASE, UNSPECIFIED (2) Metastatic lung cancer (metastasis from lung to other site) Assessment/Plan: mets to liver pateint does not want to go to [facility] Code(s): C34.90 - MALIGNANT NEOPLASM OF UNSP PART OF UNSP BRONCHUS OR LUNG (3) Shortness of breath Assessment/Plan: improved augmentin dose last dose tonight diflucan Code(s): R06.02 - SHORTNESS OF BREATH
--- NOTE | 2018-11-05 21:50 | PN ---
Progress Note (short form) - Note Progress Note: Patient seen and examined Feels better AFVSS Cor: RSR, No murmurs, No gallops Lungs: decreased at bases Abd: Soft, Normal bowel sounds, No organomegaly Ext:No significant edema Labs/Meds reviewed A/P 73 y/o patient with metastatic squamous cell lung cancer, s/p multiplelines of therapy, on nivolumab CT scan shows progressive lung mets/ hepatic mets Patient is DNR/DNI Discussed at length with patient . For SNF placement
[2018-11-06] MEDS: methylPREDNISolone NA SUCC 40 MG/1 ML VIAL IVPB SCH ×3 (01:49→12:11)
[2018-11-06] MEDS: ZOLPIDEM TARTRATE 5 MG TABLET PO PRN (01:50)
[2018-11-06] MEDS: ALPRAZolam 0.25 MG TABLET PO PRN (01:50)
[2018-11-06] MEDS: NYSTATIN 500,000 UNITS/5 ML SUSPENSION PO SCH ×4 (01:50→17:04)
[2018-11-06] MEDS: INSULIN SLIDING SCALE (NOVOLOG) 1 VIAL SQ SCH ×3 (07:40→17:06)
[2018-11-06] MEDS ORDERED: PT OWN MED DRAWER 7, Y5N ONE (09:00)
[2018-11-06] MEDS: LOSARTAN POTASSIUM 50 MG TABLET (FP) PO SCH (09:06)
[2018-11-06] MEDS: FLUCONAZOLE 100 MG TABLET (UD) PO SCH (09:06)
[2018-11-06] MEDS: ATOVAQUONE 750 MG/5 ML (UNIT-DOSE PACKAGING) PO SCH (09:07)
[2018-11-06] MEDS: busPIRone HCL 5 MG TABLET PO SCH ×2 (09:07→21:47)
[2018-11-06] MEDS: amLODIPine BESYLATE 5 MG TABLET (FP) PO SCH (09:07)
[2018-11-06] MEDS: LEFLUNOMIDE 10 MG TABLET PO SCH (09:10)
[2018-11-06] MEDS: PANTOPRAZOLE 40 MG TABLET (FP) PO SCH (09:11)
[2018-11-06] MEDS: FUROSEMIDE 20 MG TABLET (FP) PO SCH (09:39)
--- NOTE | 2018-11-06 09:52 | DS ---
Physical Examination Vital Signs: Vital Signs Temperature 97.9 F 11/06/18 02:05 Pulse Rate 99 H 11/06/18 02:05 Respiratory Rate 20 11/06/18 02:05 Blood Pressure 150/78 11/06/18 02:05 O2 Sat by Pulse Oximetry (%) 95 11/05/18 22:00 Cardiovascular: Yes: S1, S2 Respiratory: Yes: Diminished, On Nasal O2 Gastrointestinal: Yes: Normal Bowel Sounds, Soft Labs: CBC, BMP 10/30/18 09:40 10/30/18 09:40 Discharge Summary Reason For Visit: ACUTE EXACERBATION OF CHRONIC OBSTRUCTIVE PULMONAR Current Active Problems Acute on chronic diastolic CHF (congestive heart failure) (Acute) COPD exacerbation (Acute) Diabetes (Acute) Elevated troponin (Acute) Shortness of breath (Acute) Hospital Course: - Problems (1) COPD (chronic obstructive pulmonary disease) Assessment/Plan: chest ct noted prednsione oxygen bronchodilators Code(s): J44.9 - CHRONIC OBSTRUCTIVE PULMONARY DISEASE, UNSPECIFIED (2) Metastatic lung cancer (metastasis from lung to other site) Assessment/Plan: mets to liver pateint does not want to go to [facility] Code(s): C34.90 - MALIGNANT NEOPLASM OF UNSP PART OF UNSP BRONCHUS OR LUNG (3) Shortness of breath Assessment/Plan: improved augmentin dose last dose tonight diflucan Code(s): R06.02 - SHORTNESS OF BREATH Condition: Improved - Instructions Disposition: [facility] - Home Medications Comprehensive Discharge Medication List: Ambulatory Orders Alprazolam [Xanax] 0.25 mg PO DAILY 06/15/18 Losartan Potassium [Cozaar -] 50 mg PO DAILY 06/15/18 Pantoprazole Sodium [Protonix -] 40 mg PO DAILY 06/15/18 Zolpidem Tartrate [Ambien] 10 mg PO DAILY 06/15/18 Acetaminophen [Tylenol .Extra-Strength -] 500 mg PO Q6H PRN tablet 06/19/18 Atovaquone [Mepron Oral Solution -] 1,500 mg PO DAILY@0800 #1 bottle 06/19/18 Albuterol Sulfate Inhaler - [Ventolin HFA Inhaler -] 2 puff IH Q6H PRN inhaler 06/25/18 Amlodipine Besylate [Norvasc -] 5 mg PO DAILY tablet 06/25/18 Sulfasalazine [Azulfidine En-Tabs -] 1,000 mg PO BID #120 tablet. 06/25/18 traMADol HCL [Ultram -] 50 mg PO Q8H PRN tablet MDD 3 06/25/18 Albuterol 0.083% Nebulizer Yudy [Ventolin 0.083% Nebulizer Soln -] 1 amp NEB RQID amp 09/24/18 Guaifenesin [Robitussin -] 10 ml PO Q6H PRN cup 09/24/18 Heparin - 5,000 unit SQ BID vial 10/03/18 Selin-Cath Flush [Selin-Cath Flush -] 10 ml IVPUSH PRN PRN ml 10/03/18 Buspirone HCl [Buspar -] 5 mg PO BID tablet 10/10/18 Albuterol 0.083% Nebulizer Yudy [Ventolin 0.083% Nebulizer Soln -] 1 amp NEB Q6H PRN amp 11/02/18 Fluconazole [Diflucan -] 100 mg PO DAILY #10 tablet 11/02/18 Leflunomide [Arava -] 20 mg PO DAILY #60 tablet 11/02/18 Nystatin Oral Suspension - [Nystatin Oral Susp 307359 Units/5 ML -] 500,000 units PO Q6HPO cup 11/02/18 predniSONE [Deltasone -] 20 mg PO DAILY #7 tablet 11/02/18
--- NOTE | 2018-11-06 11:09 | PN ---
Progress Note, Physician History of Present Illness: PULMONARY ALERT,FEELING BETTER,-SOB - Current Medication List Current Medications: Active Medications Acetaminophen (Tylenol -) 500 mg PO Q6H PRN PRN Reason: PAIN 6-10 Last Admin: 10/26/18 17:24 Dose: 500 mg Albuterol Sulfate (Ventolin 0.083% Nebulizer Soln -) 1 amp NEB Q6H PRN PRN Reason: SHORT OF BREATH/WHEEZING Last Admin: 11/04/18 08:23 Dose: 1 amp Alprazolam (Xanax -) 0.5 mg PO BID PRN PRN Reason: ANXIETY Last Admin: 11/06/18 01:50 Dose: 0.5 mg Amlodipine Besylate (Norvasc -) 5 mg PO DAILY [facility] Last Admin: 11/06/18 09:07 Dose: 5 mg Atovaquone (Mepron -) 1,500 mg PO DAILY@0800 [facility] Last Admin: 11/06/18 09:07 Dose: 1,500 mg Buspirone HCl (Buspar -) 5 mg PO BID [facility] Last Admin: 11/06/18 09:07 Dose: 5 mg Fluconazole (Diflucan -) 100 mg PO DAILY [facility] Last Admin: 11/06/18 09:06 Dose: 100 mg Furosemide (Lasix -) 20 mg PO DAILY [facility] Last Admin: 11/06/18 09:39 Dose: 20 mg Guaifenesin (Robitussin -) 10 ml PO Q6H PRN PRN Reason: COUGH Last Admin: 11/04/18 09:31 Dose: 10 ml IV Flush (Selin-Cath Flush) 10 ml IVPUSH PRN PRN PRN Reason: FLUSH Insulin Aspart (Novolog Vial Sliding Scale -) 1 vial SQ TIDAC [facility]; Protocol Last Admin: 11/06/18 07:40 Dose: Not Given Leflunomide (Arava -) 20 mg PO DAILY [facility] Last Admin: 11/06/18 09:10 Dose: 20 mg Losartan Potassium (Cozaar -) 50 mg PO DAILY [facility] Last Admin: 11/06/18 09:06 Dose: 50 mg Methylprednisolone Sodium Succinate (Solu-Medrol -) 40 mg IVPB Q8H-IV [facility] Last Admin: 11/06/18 09:39 Dose: 40 mg Nystatin (Nystatin Oral Suspension -) 500,000 units PO Q6HPO [facility] Last Admin: 11/06/18 09:08 Dose: Not Given Pantoprazole Sodium (Protonix -) 40 mg PO DAILY [facility] Last Admin: 11/06/18 09:11 Dose: 40 mg Sulfasalazine (Azulfidine En-Tabs -) 1,000 mg PO BID [facility] Last Admin: 11/06/18 09:09 Dose: 1,000 mg Zolpidem Tartrate (Ambien -) 10 mg PO HS PRN PRN Reason: INSOMNIA Last Admin: 11/06/18 01:50 Dose: 10 mg - Objective Vital Signs: Vital Signs Temperature 97.9 F 11/06/18 02:05 Pulse Rate 99 H 11/06/18 02:05 Respiratory Rate 20 11/06/18 02:05 Blood Pressure 150/78 11/06/18 02:05 O2 Sat by Pulse Oximetry (%) 95 11/05/18 22:00 Constitutional: Yes: Well Nourished, Calm Eyes: Yes: WNL HENT: Yes: WNL Neck: Yes: WNL Cardiovascular: Yes: Regular Rate and Rhythm, S1, S2 Respiratory: Yes: Rales (FEW BASAILAR CRACKLES) Gastrointestinal: Yes: Normal Bowel Sounds, Soft Extremities: Yes: WNL Edema: Yes Labs: Problem List - Problems (1) THIAGO (acute kidney injury) Code(s): N17.9 - ACUTE KIDNEY FAILURE, UNSPECIFIED (2) Acute on chronic respiratory failure with hypoxemia Code(s): J96.21 - ACUTE AND CHRONIC RESPIRATORY FAILURE WITH HYPOXIA (3) COPD (chronic obstructive pulmonary disease) Code(s): J44.9 - CHRONIC OBSTRUCTIVE PULMONARY DISEASE, UNSPECIFIED (4) GERD (gastroesophageal reflux disease) Code(s): K21.9 - GASTRO-ESOPHAGEAL REFLUX DISEASE WITHOUT ESOPHAGITIS (5) Metastatic lung cancer (metastasis from lung to other site) Code(s): C34.90 - MALIGNANT NEOPLASM OF UNSP PART OF UNSP BRONCHUS OR LUNG (6) Rheumatoid arthritis Code(s): M06.9 - RHEUMATOID ARTHRITIS, UNSPECIFIED (7) SCC (squamous cell carcinoma of lung) Code(s): C34.90 - MALIGNANT NEOPLASM OF UNSP PART OF UNSP BRONCHUS OR LUNG (8) SOB (shortness of breath) Code(s): R06.02 - SHORTNESS OF BREATH (9) Stage 4 lung cancer Code(s): C34.90 - MALIGNANT NEOPLASM OF UNSP PART OF UNSP BRONCHUS OR LUNG (10) Depression Code(s): F32.9 - MAJOR DEPRESSIVE DISORDER, SINGLE EPISODE, UNSPECIFIED (11) HTN (hypertension) Code(s): I10 - ESSENTIAL (PRIMARY) HYPERTENSION Assessment/Plan Assessment/Plan Acute Hypoxic Respiratory Failure improved Metastatic Lung Cancer on nivolumab COPD Pleural Effusions +Troponins likely Demand Ischemia Pulmonary HTN Rheumatoid Arthritis HTN THIAGO - medrol taper - inhaled bronchodilators - O2 to keep SpO2 >90% - DVT prophylaxis - [facility] placement DR KERR
[2018-11-07] MEDS: NYSTATIN 500,000 UNITS/5 ML SUSPENSION PO SCH ×3 (00:05→12:19)
[2018-11-07] MEDS: ZOLPIDEM TARTRATE 5 MG TABLET PO PRN (00:43)
[2018-11-07] MEDS: methylPREDNISolone NA SUCC 40 MG/1 ML VIAL IVPB SCH ×3 (00:43→12:18)
[2018-11-07] MEDS: ALPRAZolam 0.25 MG TABLET PO PRN ×2 (00:43→10:10)
--- NOTE | 2018-11-07 06:17 | PN ---
Progress Note, Physician Chief Complaint: Pt A&Ox3; OOB in chair; tearful; difficulty sleeping due to increase in respiratory distress during most nights now. Now feels she will go to a alf closer to where her relatives can visit. - Current Medication List Current Medications: Active Medications Acetaminophen (Tylenol -) 500 mg PO Q6H PRN PRN Reason: PAIN 6-10 Last Admin: 10/26/18 17:24 Dose: 500 mg Albuterol Sulfate (Ventolin 0.083% Nebulizer Soln -) 1 amp NEB Q6H PRN PRN Reason: SHORT OF BREATH/WHEEZING Last Admin: 11/04/18 08:23 Dose: 1 amp Alprazolam (Xanax -) 0.5 mg PO BID PRN PRN Reason: ANXIETY Last Admin: 11/07/18 00:43 Dose: 0.5 mg Amlodipine Besylate (Norvasc -) 5 mg PO DAILY [facility] Last Admin: 11/06/18 09:07 Dose: 5 mg Atovaquone (Mepron -) 1,500 mg PO DAILY@0800 [facility] Last Admin: 11/06/18 09:07 Dose: 1,500 mg Buspirone HCl (Buspar -) 5 mg PO BID [facility] Last Admin: 11/06/18 21:47 Dose: 5 mg Fluconazole (Diflucan -) 100 mg PO DAILY [facility] Last Admin: 11/06/18 09:06 Dose: 100 mg Furosemide (Lasix -) 20 mg PO DAILY [facility] Last Admin: 11/06/18 09:39 Dose: 20 mg Guaifenesin (Robitussin -) 10 ml PO Q6H PRN PRN Reason: COUGH Last Admin: 11/04/18 09:31 Dose: 10 ml IV Flush (Selin-Cath Flush) 10 ml IVPUSH PRN PRN PRN Reason: FLUSH Insulin Aspart (Novolog Vial Sliding Scale -) 1 vial SQ TIDAC [facility]; Protocol Last Admin: 11/06/18 17:06 Dose: Not Given Leflunomide (Arava -) 20 mg PO DAILY [facility] Last Admin: 11/06/18 09:10 Dose: 20 mg Losartan Potassium (Cozaar -) 50 mg PO DAILY [facility] Last Admin: 11/06/18 09:06 Dose: 50 mg Methylprednisolone Sodium Succinate (Solu-Medrol -) 40 mg IVPB Q12H [facility] Last Admin: 11/07/18 00:43 Dose: 40 mg Nystatin (Nystatin Oral Suspension -) 500,000 units PO Q6HPO [facility] Last Admin: 11/07/18 00:05 Dose: Not Given Pantoprazole Sodium (Protonix -) 40 mg PO DAILY [facility] Last Admin: 11/06/18 09:11 Dose: 40 mg Sulfasalazine (Azulfidine En-Tabs -) 1,000 mg PO BID [facility] Last Admin: 11/06/18 21:47 Dose: Not Given Zolpidem Tartrate (Ambien -) 10 mg PO HS PRN PRN Reason: INSOMNIA Last Admin: 11/07/18 00:43 Dose: 10 mg - Objective Vital Signs: Vital Signs Temperature 97.7 F 11/06/18 22:00 Pulse Rate 112 H 11/06/18 22:00 Respiratory Rate 22 H 11/06/18 22:00 Blood Pressure 149/95 11/06/18 22:00 O2 Sat by Pulse Oximetry (%) 95 11/06/18 22:00 Constitutional: Yes: Anxious, Moderate Distress, Other (overweight) Eyes: Yes: WNL HENT: Yes: WNL Neck: Yes: WNL Cardiovascular: Yes: S1, S2, S4 Gastrointestinal: Yes: Soft ...Rectal Exam: Yes: Deferred Genitourinary: No: Anuria Breast(s): Yes: WNL Musculoskeletal: Yes: Muscle Weakness Extremities: Yes: WNL Edema: No Peripheral Pulses WNL: Yes Integumentary: Yes: WNL Neurological: Yes: WNL Psychiatric: Yes: Alert, Oriented, Other (depression) Labs: CBC, BMP 10/30/18 09:40 10/30/18 09:40 INR, PTT INR 1.34 (0.83-1.09) H 10/24/18 13:51 Problem List - Problems (1) COPD (chronic obstructive pulmonary disease) Assessment/Plan: Continue bronchodilators, steroids, antibiotics per ID, pneumatic riveter. Code(s): J44.9 - CHRONIC OBSTRUCTIVE PULMONARY DISEASE, UNSPECIFIED (2) Metastatic lung cancer (metastasis from lung to other site) Assessment/Plan: F/u with oncologist Code(s): C34.90 - MALIGNANT NEOPLASM OF UNSP PART OF UNSP BRONCHUS OR LUNG (3) Elevated troponin Code(s): R74.8 - ABNORMAL LEVELS OF OTHER SERUM ENZYMES (4) Acute on chronic diastolic CHF (congestive heart failure) Assessment/Plan: Pt has perids of relatively stable breathing, but increasingly frequent and lengthy episodes, especially at night, of inability to breathe easily. On losartan, amlodipine, and PO furosemide. On bronchodilators, steroids, antibiotics, O2. On chemotherapeutic agents. Anemic. F/u BUn/Cr (improving), electrolytes, Is and Os, daily weight. Code(s): I50.33 - ACUTE ON CHRONIC DIASTOLIC (CONGESTIVE) HEART FAILURE (5) Depression Assessment/Plan: Pt is grieving over the futility of trying to treat her cancer. She shows copies of her tests and says "it's spread all over". She has been, and is still angry, but is also increasingly resigned to the diagnosis. Code(s): F32.9 - MAJOR DEPRESSIVE DISORDER, SINGLE EPISODE, UNSPECIFIED (6) HTN (hypertension) Assessment/Plan: On losartan, amlodipine, and furosemide. F/u BP serially. Code(s): I10 - ESSENTIAL (PRIMARY) HYPERTENSION (7) Anemia Code(s): D64.9 - ANEMIA, UNSPECIFIED
[2018-11-07 06:20] VITALS: TEMP 98.6
--- NOTE | 2018-11-07 06:25 | PN ---
Progress Note, Physician Chief Complaint: Pt A&Ox3; OOB in chair; slept well, which is unusual for her lately. No chest pain. Anxious, tearful in thinking of illness, and where to go now (still considering nursing facilities). History of Present Illness: The patient is a 73 year old black woman with a past medical history of stage 4 lung cancer (s/p right upper lobe removal, currently on immunotherapy), diastolic CHF, and COPD (5L at home; quit smoking cigareettes bout 3 months ago) ) here today for evaluation of shortness of breath. The patient was recently discharged to the [facility] on 10/16/[address] Camarillo when she was sent in. She notes that she has had worsening shortness of breath and orthopnea over the past few days. Patient denies headache, lightheadedness. Denies fever, chills. Denies chest pain. Allergies: aspirin PCP: Juventino Ruby Oncologist: Humza Camarillo - Current Medication List Current Medications: Active Medications Acetaminophen (Tylenol -) 500 mg PO Q6H PRN PRN Reason: PAIN 6-10 Last Admin: 10/26/18 17:24 Dose: 500 mg Albuterol Sulfate (Ventolin 0.083% Nebulizer Soln -) 1 amp NEB Q6H PRN PRN Reason: SHORT OF BREATH/WHEEZING Last Admin: 11/04/18 08:23 Dose: 1 amp Alprazolam (Xanax -) 0.5 mg PO BID PRN PRN Reason: ANXIETY Last Admin: 11/07/18 00:43 Dose: 0.5 mg Amlodipine Besylate (Norvasc -) 5 mg PO DAILY [facility] Last Admin: 11/06/18 09:07 Dose: 5 mg Atovaquone (Mepron -) 1,500 mg PO DAILY@0800 [facility] Last Admin: 11/06/18 09:07 Dose: 1,500 mg Buspirone HCl (Buspar -) 5 mg PO BID [facility] Last Admin: 11/06/18 21:47 Dose: 5 mg Fluconazole (Diflucan -) 100 mg PO DAILY [facility] Last Admin: 11/06/18 09:06 Dose: 100 mg Furosemide (Lasix -) 20 mg PO DAILY [facility] Last Admin: 11/06/18 09:39 Dose: 20 mg Guaifenesin (Robitussin -) 10 ml PO Q6H PRN PRN Reason: COUGH Last Admin: 11/04/18 09:31 Dose: 10 ml IV Flush (Selin-Cath Flush) 10 ml IVPUSH PRN PRN PRN Reason: FLUSH Insulin Aspart (Novolog Vial Sliding Scale -) 1 vial SQ TIDAC [facility]; Protocol Last Admin: 11/06/18 17:06 Dose: Not Given Leflunomide (Arava -) 20 mg PO DAILY [facility] Last Admin: 11/06/18 09:10 Dose: 20 mg Losartan Potassium (Cozaar -) 50 mg PO DAILY [facility] Last Admin: 11/06/18 09:06 Dose: 50 mg Methylprednisolone Sodium Succinate (Solu-Medrol -) 40 mg IVPB Q12H [facility] Last Admin: 11/07/18 00:43 Dose: 40 mg Nystatin (Nystatin Oral Suspension -) 500,000 units PO Q6HPO [facility] Last Admin: 11/07/18 06:17 Dose: Not Given Pantoprazole Sodium (Protonix -) 40 mg PO DAILY [facility] Last Admin: 11/06/18 09:11 Dose: 40 mg Sulfasalazine (Azulfidine En-Tabs -) 1,000 mg PO BID [facility] Last Admin: 11/06/18 21:47 Dose: Not Given Zolpidem Tartrate (Ambien -) 10 mg PO HS PRN PRN Reason: INSOMNIA Last Admin: 11/07/18 00:43 Dose: 10 mg - Objective Vital Signs: Vital Signs Temperature 98.6 F 11/07/18 06:00 Pulse Rate 92 H 11/07/18 06:00 Respiratory Rate 20 11/07/18 06:00 Blood Pressure 139/90 11/07/18 06:00 O2 Sat by Pulse Oximetry (%) 95 11/06/18 22:00 Constitutional: Yes: Anxious, Mild Distress Eyes: Yes: WNL HENT: Yes: WNL Labs: CBC, BMP 10/30/18 09:40 10/30/18 09:40 INR, PTT INR 1.34 (0.83-1.09) H 10/24/18 13:51 Problem List - Problems (1) COPD (chronic obstructive pulmonary disease) Assessment/Plan: Continue bronchodilators, steroids, antibiotics per ID, ladies locker room attendant. Code(s): J44.9 - CHRONIC OBSTRUCTIVE PULMONARY DISEASE, UNSPECIFIED (2) Metastatic lung cancer (metastasis from lung to other site) Code(s): C34.90 - MALIGNANT NEOPLASM OF UNSP PART OF UNSP BRONCHUS OR LUNG (3) Elevated troponin Code(s): R74.8 - ABNORMAL LEVELS OF OTHER SERUM ENZYMES (4) Acute on chronic diastolic CHF (congestive heart failure) Code(s): I50.33 - ACUTE ON CHRONIC DIASTOLIC (CONGESTIVE) HEART FAILURE (5) Depression Code(s): F32.9 - MAJOR DEPRESSIVE DISORDER, SINGLE EPISODE, UNSPECIFIED (6) HTN (hypertension) Code(s): I10 - ESSENTIAL (PRIMARY) HYPERTENSION (7) Anemia Code(s): D64.9 - ANEMIA, UNSPECIFIED
[2018-11-07] MEDS: INSULIN SLIDING SCALE (NOVOLOG) 1 VIAL SQ SCH ×2 (07:00→12:19)
[2018-11-07] MEDS ORDERED: PT OWN MED DRAWER 7, Y5N ONE ×2 (08:10→10:38)
--- NOTE | 2018-11-07 09:34 | DS ---
Physical Examination Vital Signs: Vital Signs Temperature 98.6 F 11/07/18 06:00 Pulse Rate 92 H 11/07/18 06:00 Respiratory Rate 20 11/07/18 06:00 Blood Pressure 139/90 11/07/18 06:00 O2 Sat by Pulse Oximetry (%) 95 11/06/18 22:00 Cardiovascular: Yes: S1, S2 Respiratory: Yes: Regular, CTA Bilaterally Gastrointestinal: Yes: Normal Bowel Sounds, Soft Labs: CBC, BMP 10/30/18 09:40 10/30/18 09:40 Discharge Summary Reason For Visit: ACUTE EXACERBATION OF CHRONIC OBSTRUCTIVE PULMONAR Current Active Problems Acute on chronic diastolic CHF (congestive heart failure) (Acute) Anemia (Acute) COPD exacerbation (Acute) Diabetes (Acute) Elevated troponin (Acute) Shortness of breath (Acute) Hospital Course: - Problems (1) COPD (chronic obstructive pulmonary disease) Assessment/Plan: chest ct noted prednsione oxygen bronchodilators Code(s): J44.9 - CHRONIC OBSTRUCTIVE PULMONARY DISEASE, UNSPECIFIED (2) Metastatic lung cancer (metastasis from lung to other site) Assessment/Plan: mets to liver pateint does not want to go to [facility] Code(s): C34.90 - MALIGNANT NEOPLASM OF UNSP PART OF UNSP BRONCHUS OR LUNG (3) Shortness of breath Assessment/Plan: improved augmentin dose last dose tonight diflucan Plan of Treatment: Monitor lytes and cbc Condition: Improved - Instructions Disposition: CARE HOME FACILITY - Home Medications Comprehensive Discharge Medication List: Ambulatory Orders Alprazolam [Xanax] 0.25 mg PO DAILY 06/15/18 Losartan Potassium [Cozaar -] 50 mg PO DAILY 06/15/18 Pantoprazole Sodium [Protonix -] 40 mg PO DAILY 06/15/18 Zolpidem Tartrate [Ambien] 10 mg PO DAILY 06/15/18 Acetaminophen [Tylenol .Extra-Strength -] 500 mg PO Q6H PRN tablet 06/19/18 Atovaquone [Mepron Oral Solution -] 1,500 mg PO DAILY@0800 #1 bottle 06/19/18 Albuterol Sulfate Inhaler - [Ventolin HFA Inhaler -] 2 puff IH Q6H PRN inhaler 06/25/18 Amlodipine Besylate [Norvasc -] 5 mg PO DAILY tablet 06/25/18 Sulfasalazine [Azulfidine En-Tabs -] 1,000 mg PO BID #120 tablet.dr 06/25/18 traMADol HCL [Ultram -] 50 mg PO Q8H PRN tablet MDD 3 06/25/18 Albuterol 0.083% Nebulizer Yudy [Ventolin 0.083% Nebulizer Soln -] 1 amp NEB RQID amp 09/24/18 Guaifenesin [Robitussin -] 10 ml PO Q6H PRN cup 09/24/18 Heparin - 5,000 unit SQ BID vial 10/03/18 Selin-Cath Flush [Selin-Cath Flush -] 10 ml IVPUSH PRN PRN ml 10/03/18 Buspirone HCl [Buspar -] 5 mg PO BID tablet 10/10/18 Albuterol 0.083% Nebulizer Yudy [Ventolin 0.083% Nebulizer Soln -] 1 amp NEB Q6H PRN amp 11/02/18 Fluconazole [Diflucan -] 100 mg PO DAILY #10 tablet 11/02/18 Leflunomide [Arava -] 20 mg PO DAILY #60 tablet 11/02/18 Nystatin Oral Suspension - [Nystatin Oral Susp 853639 Units/5 ML -] 500,000 units PO Q6HPO cup 11/02/18 predniSONE [Deltasone -] 20 mg PO DAILY #7 tablet 11/02/18
[2018-11-07] MEDS: FLUCONAZOLE 100 MG TABLET (UD) PO SCH ×2 (10:09→10:17)
[2018-11-07] MEDS: busPIRone HCL 5 MG TABLET PO SCH (10:10)
[2018-11-07] MEDS: LOSARTAN POTASSIUM 50 MG TABLET (FP) PO SCH (10:10)
[2018-11-07] MEDS: PANTOPRAZOLE 40 MG TABLET (FP) PO SCH (10:10)
[2018-11-07] MEDS: amLODIPine BESYLATE 5 MG TABLET (FP) PO SCH (10:10)
[2018-11-07] MEDS: FUROSEMIDE 20 MG TABLET (FP) PO SCH (10:11)
[2018-11-07] MEDS: ATOVAQUONE 750 MG/5 ML (UNIT-DOSE PACKAGING) PO SCH (10:38)
[2018-11-07] MEDS: LEFLUNOMIDE 10 MG TABLET PO SCH (10:39)
--- NOTE | 2018-11-07 10:56 | PN ---
Progress Note, Physician History of Present Illness: 73 yo female pmh active stage 4 lung ca sp R upper lobectomy currently on immunotherapy (1X per month as per Dr. Paige, last treatment today) htn, ra, copd, with recent admission for acute on chronic respiratory failure (DC on ) presents from [facility] for SOB. Pt states she was at her appointment for immunotherapy with Dr. Camarillo today and after treatment was instructed to head to the ER for admission for SOB. Pt admits to 2 days of worsening SOB especially with laying flat and bilateral lower limb edema. Pt did not take lasix today (40 mg daily home dose). Denies CP, palpitations, hemoptysis, F/C/N/V, calf tenderness/leg pain, changes in bowel or bladder habits. - Current Medication List Current Medications: Active Medications Acetaminophen (Tylenol -) 500 mg PO Q6H PRN PRN Reason: PAIN 6-10 Last Admin: 10/26/18 17:24 Dose: 500 mg Albuterol Sulfate (Ventolin 0.083% Nebulizer Soln -) 1 amp NEB Q6H PRN PRN Reason: SHORT OF BREATH/WHEEZING Last Admin: 11/04/18 08:23 Dose: 1 amp Amlodipine Besylate (Norvasc -) 5 mg PO DAILY [facility] Last Admin: 11/07/18 10:10 Dose: 5 mg Atovaquone (Mepron -) 1,500 mg PO DAILY@0800 [facility] Last Admin: 11/07/18 10:38 Dose: 1,500 mg Buspirone HCl (Buspar -) 5 mg PO BID [facility] Last Admin: 11/07/18 10:10 Dose: 5 mg Fluconazole (Diflucan -) 100 mg PO DAILY [facility] Last Admin: 11/07/18 10:17 Dose: 100 mg Furosemide (Lasix -) 20 mg PO DAILY [facility] Last Admin: 11/07/18 10:11 Dose: 20 mg Guaifenesin (Robitussin -) 10 ml PO Q6H PRN PRN Reason: COUGH Last Admin: 11/04/18 09:31 Dose: 10 ml IV Flush (Selin-Cath Flush) 10 ml IVPUSH PRN PRN PRN Reason: FLUSH Insulin Aspart (Novolog Vial Sliding Scale -) 1 vial SQ TIDAC [facility]; Protocol Last Admin: 11/06/18 17:06 Dose: Not Given Leflunomide (Arava -) 20 mg PO DAILY [facility] Last Admin: 11/07/18 10:39 Dose: 20 mg Losartan Potassium (Cozaar -) 50 mg PO DAILY [facility] Last Admin: 11/07/18 10:10 Dose: 50 mg Methylprednisolone Sodium Succinate (Solu-Medrol -) 40 mg IVPB Q12H [facility] Last Admin: 11/07/18 10:10 Dose: 40 mg Nystatin (Nystatin Oral Suspension -) 500,000 units PO Q6HPO [facility] Last Admin: 11/07/18 06:17 Dose: Not Given Pantoprazole Sodium (Protonix -) 40 mg PO DAILY [facility] Last Admin: 11/07/18 10:10 Dose: 40 mg Sulfasalazine (Azulfidine En-Tabs -) 1,000 mg PO BID [facility] Last Admin: 11/07/18 10:11 Dose: 1,000 mg Zolpidem Tartrate (Ambien -) 10 mg PO HS PRN PRN Reason: INSOMNIA Last Admin: 11/07/18 00:43 Dose: 10 mg - Objective Vital Signs: Vital Signs Temperature 98.6 F 11/07/18 06:00 Pulse Rate 92 H 11/07/18 06:00 Respiratory Rate 20 11/07/18 06:00 Blood Pressure 139/90 11/07/18 06:00 O2 Sat by Pulse Oximetry (%) 95 11/06/18 22:00 Eyes: Yes: WNL, Conjunctiva Clear, EOM Intact HENT: Yes: WNL, Atraumatic, Normocephalic Neck: Yes: WNL, Supple, Trachea Midline Cardiovascular: Yes: WNL, Regular Rate and Rhythm Respiratory: Yes: WNL, Regular, Diminished Gastrointestinal: Yes: WNL, Normal Bowel Sounds Genitourinary: Yes: WNL Musculoskeletal: Yes: WNL Extremities: Yes: WNL Edema: No Integumentary: Yes: WNL Neurological: Yes: WNL, Alert, Oriented ...Motor Strength: WNL Psychiatric: Yes: WNL Labs: CBC, BMP 10/30/18 09:40 10/30/18 09:40 INR, PTT INR 1.34 (0.83-1.09) H 10/24/18 13:51 Assessment/Plan - Problems (1) COPD (chronic obstructive pulmonary disease) Assessment/Plan: bronchodilators, steroids, antibiotics per ID, crew director. Code(s): J44.9 - CHRONIC OBSTRUCTIVE PULMONARY DISEASE, UNSPECIFIED (2) Metastatic lung cancer (metastasis from lung to other site) Assessment/Plan: F/u [facility] oncologist Pt says that, since she decided on [place], she does not want more physical therapy. Code(s): C34.90 - MALIGNANT NEOPLASM OF UNSP PART OF UNSP BRONCHUS OR LUNG (3) Elevated troponin Code(s): R74.8 - ABNORMAL LEVELS OF OTHER SERUM ENZYMES (4) Acute on chronic diastolic CHF (congestive heart failure) Assessment/Plan: Pt has perids of relatively stable breathing, but increasingly frequent and lengthy episodes, especially at night, of inability to breathe easily. On losartan, amlodipine, and PO furosemide. On bronchodilators, steroids, antibiotics, O2. On chemotherapeutic agents. F/u BUn/Cr (improving), electrolytes, Is and Os, daily weight. Code(s): I50.33 - ACUTE ON CHRONIC DIASTOLIC (CONGESTIVE) HEART FAILURE (5) Depression Assessment/Plan: Pt is grieving over the futility of trying to treat her cancer. She shows copies of her tests and says "it's spread all over". She has been, and is still angry, but is also increasingly resigned to the diagnosis. Code(s): F32.9 - MAJOR DEPRESSIVE DISORDER, SINGLE EPISODE, UNSPECIFIED
--- NOTE | 2018-11-07 11:37 | PN ---
Progress Note, Physician History of Present Illness: PULMONARY ALERT,COMFORTABLE,-RESP DISTRESS - Current Medication List Current Medications: Active Medications Acetaminophen (Tylenol -) 500 mg PO Q6H PRN PRN Reason: PAIN 6-10 Last Admin: 10/26/18 17:24 Dose: 500 mg Albuterol Sulfate (Ventolin 0.083% Nebulizer Soln -) 1 amp NEB Q6H PRN PRN Reason: SHORT OF BREATH/WHEEZING Last Admin: 11/04/18 08:23 Dose: 1 amp Amlodipine Besylate (Norvasc -) 5 mg PO DAILY [facility] Last Admin: 11/07/18 10:10 Dose: 5 mg Atovaquone (Mepron -) 1,500 mg PO DAILY@0800 [facility] Last Admin: 11/07/18 10:38 Dose: 1,500 mg Buspirone HCl (Buspar -) 5 mg PO BID [facility] Last Admin: 11/07/18 10:10 Dose: 5 mg Fluconazole (Diflucan -) 100 mg PO DAILY [facility] Last Admin: 11/07/18 10:17 Dose: 100 mg Furosemide (Lasix -) 20 mg PO DAILY [facility] Last Admin: 11/07/18 10:11 Dose: 20 mg Guaifenesin (Robitussin -) 10 ml PO Q6H PRN PRN Reason: COUGH Last Admin: 11/04/18 09:31 Dose: 10 ml IV Flush (Selin-Cath Flush) 10 ml IVPUSH PRN PRN PRN Reason: FLUSH Insulin Aspart (Novolog Vial Sliding Scale -) 1 vial SQ TIDAC [facility]; Protocol Last Admin: 11/06/18 17:06 Dose: Not Given Leflunomide (Arava -) 20 mg PO DAILY [facility] Last Admin: 11/07/18 10:39 Dose: 20 mg Losartan Potassium (Cozaar -) 50 mg PO DAILY [facility] Last Admin: 11/07/18 10:10 Dose: 50 mg Methylprednisolone Sodium Succinate (Solu-Medrol -) 40 mg IVPB Q12H [facility] Last Admin: 11/07/18 10:10 Dose: 40 mg Nystatin (Nystatin Oral Suspension -) 500,000 units PO Q6HPO [facility] Last Admin: 11/07/18 06:17 Dose: Not Given Pantoprazole Sodium (Protonix -) 40 mg PO DAILY [facility] Last Admin: 11/07/18 10:10 Dose: 40 mg Sulfasalazine (Azulfidine En-Tabs -) 1,000 mg PO BID [facility] Last Admin: 11/07/18 10:11 Dose: 1,000 mg Zolpidem Tartrate (Ambien -) 10 mg PO HS PRN PRN Reason: INSOMNIA Last Admin: 11/07/18 00:43 Dose: 10 mg - Objective Vital Signs: Vital Signs Temperature 98.6 F 11/07/18 06:00 Pulse Rate 92 H 11/07/18 06:00 Respiratory Rate 20 11/07/18 06:00 Blood Pressure 139/90 11/07/18 06:00 O2 Sat by Pulse Oximetry (%) 95 11/06/18 22:00 Constitutional: Yes: Well Nourished, Calm Eyes: Yes: WNL HENT: Yes: WNL Neck: Yes: WNL Cardiovascular: Yes: Regular Rate and Rhythm, S1, S2 Respiratory: Yes: Diminished Gastrointestinal: Yes: Normal Bowel Sounds, Soft Extremities: Yes: WNL Edema: Yes Labs: CBC, BMP Problem List - Problems (1) THIAGO (acute kidney injury) Code(s): N17.9 - ACUTE KIDNEY FAILURE, UNSPECIFIED (2) Acute on chronic respiratory failure with hypoxemia Code(s): J96.21 - ACUTE AND CHRONIC RESPIRATORY FAILURE WITH HYPOXIA (3) COPD (chronic obstructive pulmonary disease) Code(s): J44.9 - CHRONIC OBSTRUCTIVE PULMONARY DISEASE, UNSPECIFIED (4) GERD (gastroesophageal reflux disease) Code(s): K21.9 - GASTRO-ESOPHAGEAL REFLUX DISEASE WITHOUT ESOPHAGITIS (5) Metastatic lung cancer (metastasis from lung to other site) Code(s): C34.90 - MALIGNANT NEOPLASM OF UNSP PART OF UNSP BRONCHUS OR LUNG (6) Rheumatoid arthritis Code(s): M06.9 - RHEUMATOID ARTHRITIS, UNSPECIFIED (7) SCC (squamous cell carcinoma of lung) Code(s): C34.90 - MALIGNANT NEOPLASM OF UNSP PART OF UNSP BRONCHUS OR LUNG (8) SOB (shortness of breath) Code(s): R06.02 - SHORTNESS OF BREATH (9) Stage 4 lung cancer Code(s): C34.90 - MALIGNANT NEOPLASM OF UNSP PART OF UNSP BRONCHUS OR LUNG (10) Depression Code(s): F32.9 - MAJOR DEPRESSIVE DISORDER, SINGLE EPISODE, UNSPECIFIED (11) HTN (hypertension) Code(s): I10 - ESSENTIAL (PRIMARY) HYPERTENSION Assessment/Plan Assessment/Plan Acute Hypoxic Respiratory Failure improved Metastatic Lung Cancer on nivolumab COPD Pleural Effusions +Troponins likely [place] Ischemia Pulmonary HTN Rheumatoid Arthritis HTN THIAGO - PREDNISONE 60MG DAILY - inhaled bronchodilators - O2 to keep SpO2 >90% - DVT prophylaxis - NH placement DR KERR
[2018-11-07 14:00] VITALS: BP 148/89; PULSE 94
== END 2018-11-07 13:43 | DRG 180 ==
LOC: JER 13:03 → JERBED 16:04 → J4W 20:16
PROVIDERS: ADMIT Family Medicine; ATTEND Family Medicine
DX: C34.91 Malignant neoplasm of unspecified part of right bronchus or lung (principal); J96.01 Acute respiratory failure with hypoxia; I50.33 Acute on chronic diastolic (congestive) heart failure; J44.1 Chronic obstructive pulmonary disease with (acute) exacerbation; I24.8 Other forms of acute ischemic heart disease; B37.0 Candidal stomatitis; C78.7 Secondary malignant neoplasm of liver and intrahepatic bile duct; J90 Pleural effusion, not elsewhere classified; N17.9 Acute kidney failure, unspecified; I27.20 Pulmonary hypertension, unspecified; F32.9 Major depressive disorder, single episode, unspecified; M06.80 Other specified rheumatoid arthritis, unspecified site; R74.8 Abnormal levels of other serum enzymes; K21.9 Gastro-esophageal reflux disease without esophagitis; E11.9 Type 2 diabetes mellitus without complications; I11.0 Hypertensive heart disease with heart failure; D64.9 Anemia, unspecified; Z66 Do not resuscitate
CPT/HCPCS: 36415; 71045-TC-FY; 71250-TC; 80048; 80053; 80061; 80076; 82550; 82553; 82803; 82962; 83036; 83721; 83735; 83880; 84100; 84436; 84443; 84484; 85025; 85610; 87086; 87186; 93005; 93010; 93306-TC; 94640; 96375; 96413; 97116-GP; 97161-GP; 99285-25; J1644; J9299

== ENCOUNTER 2018-11-23 02:08 | Inpatient (IN) | payer OTHER ==
--- NOTE | 2018-11-23 02:55 | PDOC ---
History of Present Illness - General Chief Complaint: Shortness of Breath Stated Complaint: SOB - History of Present Illness Initial Comments: The pt is a 73F w/ a history of COPD, metastatic lung cancer, HTN, HLD who presents for evaluation of acute on chronic SOB tonight despite nebulizer use at her NH. She describes chest tightness that is consistent with her previous exacerbations and feels like she can't catch her breath. Denies fevers, sick contacts, or chest pain. States she usually feels better with 1-2 breathing treatments and steroids. Recently treated for UTI, finished abx 1 week ago. 11/23/18 02:55 Past History - Past Medical History Allergies/Adverse Reactions: Allergies Allergy/AdvReac Type Severity Reaction Status Date / Time aspirin AdvReac Mild Verified 11/23/18 02:51 Home Medications: Ambulatory Orders Alprazolam [Xanax] 0.25 mg PO Q12H 06/15/18 Losartan Potassium [Cozaar -] 50 mg PO DAILY 06/15/18 Pantoprazole Sodium [Protonix -] 40 mg PO DAILY 06/15/18 Zolpidem Tartrate [Ambien] 10 mg PO DAILY 06/15/18 Acetaminophen [Tylenol .Extra-Strength -] 500 mg PO Q6H PRN tablet 06/19/18 Atovaquone [Mepron Oral Solution -] 1,500 mg PO DAILY@0800 #1 bottle 06/19/18 Albuterol Sulfate Inhaler - [Ventolin HFA Inhaler -] 2 puff IH Q6H PRN inhaler 06/25/18 Amlodipine Besylate [Norvasc -] 5 mg PO DAILY tablet 06/25/18 Sulfasalazine [Azulfidine En-Tabs -] 1,000 mg PO BID #120 tablet. 06/25/18 traMADol HCL [Ultram -] 50 mg PO Q8H PRN tablet MDD 3 06/25/18 Albuterol 0.083% Nebulizer Yudy [Ventolin 0.083% Nebulizer Soln -] 1 amp NEB RQID amp 09/24/18 Guaifenesin [Robitussin -] 10 ml PO Q6H PRN cup 09/24/18 Selin-Cath Flush [Selin-Cath Flush -] 10 ml IVPUSH PRN PRN ml 10/03/18 Buspirone HCl [Buspar -] 5 mg PO BID tablet 10/10/18 Leflunomide [Arava -] 20 mg PO DAILY #60 tablet 11/02/18 Nystatin Oral Suspension - [Nystatin Oral Susp 378522 Units/5 ML -] 500,000 units PO Q6HPO cup 11/02/18 predniSONE [Deltasone -] 20 mg PO DAILY #7 tablet 11/02/18 Heparin - 5,000 unit SQ Q12H 11/23/18 Silver Sulfadiazine 1% Top Cr [Silvadene -] 1 applic TP DAILY 11/23/18 Anemia: No Asthma: No Cancer: Yes (lung) Cardiac Disorders: No CVA: No COPD: Yes (copd) CHF: No Dementia: No Diabetes: Yes (Type 2) GI Disorders: Yes Disorders: No HTN: Yes Hypercholesterolemia: No Liver Disease: No Psychiatric Problems: Yes (anxiety) Seizures: No Thyroid Disease: No Lung CA: Yes - Surgical History Abdominal Surgery: No Appendectomy: No Cardiac Surgery: No Cholecystectomy: No Lung Surgery: Yes (right lobectomy 2014) Neurologic Surgery: No Orthopedic Surgery: No - Immunization History Immunization Up to Date: Yes - Psycho Social/Smoking Cessation Hx Smoking Status: Yes Smoking History: Former smoker Have you smoked in the past 12 months: No Number of Cigarettes Smoked Daily: 10 If you are a former smoker, when did you quit?: 12/16/14 Information on smoking cessation initiated: No 'Breaking Loose' booklet given: 08/24/15 Hx Alcohol Use: No Drug/Substance Use Hx: No Substance Use Type: None Hx Substance Use Treatment: No Review of Systems - Review of Systems Able to Perform ROS?: Yes Comments:: GENERAL/CONSTITUTIONAL: No fever or chills. No weakness HEAD, EYES, EARS, NOSE AND THROAT: No change in vision. No change in hearing. No sore throat CARDIOVASCULAR: +SOB RESPIRATORY: +cough, Denies hemoptysis GASTROINTESTINAL: No nausea, vomiting, diarrhea or constipation GENITOURINARY: No dysuria, frequency, or change in urination MUSCULOSKELETAL: No joint or muscle swelling or pain SKIN: No rash NEUROLOGIC: No headache, vertigo, loss of consciousness, or change in strength/ sensation ENDOCRINE: No increased thirst. No abnormal weight change HEMATOLOGIC/LYMPHATIC: No anemia, easy bleeding, or history of blood clots ALLERGIC/IMMUNOLOGIC: No hives or skin allergy 11/23/18 04:47 Is the patient limited Swedish proficient: No *Physical Exam - Vital Signs Last Vital Signs Temp Pulse Resp BP Pulse Ox 97.9 F 110 H 24 H 144/90 99 11/23/18 02:35 11/23/18 02:35 11/23/18 02:35 11/23/18 02:35 11/23/18 02:35 - Physical Exam Comments: GENERAL: Awake, alert, and oriented to person/place/time, in moderate respiratory distress on non-rebreather HEAD: No signs of trauma, normocephalic, atraumatic EYES: PERRLA, EOMI, sclera anicteric, conjunctiva clear ENT: Hearing grossly normal, nares patent, oropharynx clear without exudates. Moist mucosa LUNGS: Tachypnic, b/l diffuse wheezing, tripod posture HEART: Tachycardic rate with regular rhythm, normal S1 and S2, no murmurs appreciated, peripheral pulses normal and equal bilaterally ABDOMEN: Soft, nontender, normoactive bowel sounds. No guarding, no rebound EXTREMITIES: Normal inspection, Normal range of motion, no edema. No clubbing or cyanosis NEUROLOGICAL: Cranial nerves II through XII grossly intact. Normal speech, no focal sensorimotor deficits SKIN: Warm, Dry 11/23/18 04:48 ED Treatment Course - LABORATORY CBC & Chemistry Diagram: 11/23/18 03:38 11/23/18 03:38 Medical Decision Making - Medical Decision Making The pt is a 73F w/ a history of COPD, metastatic lung cancer, HTN, HLD who presents for evaluation of acute on chronic SOB tonight despite nebulizer use at her DC. Likely 2/2 COPD exacerbation ED Course Labs and cultures sent BiPAP attempted but pt refused Duo-neb x2, Solumedrol 125mg IV given with subsequent improvement in symptoms Vanc/Zosyn for empiric coverage No leukocytosis No anemia Lactic acidosis No THIAGO Mild troponinemia, likely 2/2 demand BNP elevated but not significantly higher that in the past CXR similar to previous with multiple patchy infiltrates Plan for admission for COPD exacerbation 11/23/18 04:51 Discharge - Discharge Information Problems reviewed: Yes Clinical Impression/Diagnosis: COPD exacerbation HTN (hypertension) Qualifiers: Hypertension type: unspecified Qualified Code(s): I10 - Essential (primary) hypertension Stage 4 lung cancer Qualifiers: Laterality: unspecified laterality Qualified Code(s): C34.90 - Malignant neoplasm of unspecified part of unspecified bronchus or lung Condition: Fair - Admission Yes - Follow up/Referral Referrals: Lior Toro MD [Primary Care Provider] - - Patient Discharge Instructions - Post Discharge Activity
[2018-11-23] MEDS ORDERED: methylPREDNISolone NA SUCC 125 MG/2 ML VIAL IVPB ONE (03:15)
[2018-11-23] MEDS ORDERED: ALBUTEROL SO4 2.5/IPRATROPIUM 0.5 INH SOL 3 ML VIAL.NEB. NEB ONE ×4 (03:17→18:45)
[2018-11-23] MEDS: ALBUTEROL SO4 2.5/IPRATROPIUM 0.5 INH SOL 3 ML VIAL.NEB. NEB SCH ×5 (03:20→20:00)
[2018-11-23] MEDS ORDERED: methylPREDNISolone NA SUCC 125 MG/2 ML VIAL ONE (03:47)
[2018-11-23 03:57] LABS: VENOUS PC02 56.8 mmHg (38-52); VENOUS PH 7.26 (7.31-7.41)
[2018-11-23 04:01] LABS: VENOUS PO2 < 49 mmHg (28-48)
[2018-11-23 04:03] LABS: INR 1.13 (0.83-1.09); PROTHROMBIN TIME (PATIENT) 13.3 SEC (9.7-13.0)
[2018-11-23 04:06] LABS: ACTIVATED PTT 31.6 SECONDS (25.2-36.5)
[2018-11-23 04:11] LABS: BASO % 0.1 % (0-2.0); HEMATOCRIT 32.8 % (32.4-45.2); HEMOGLOBIN 10.2 GM/dL (10.7-15.3); LYMPH % 5.5 % (8-40); MCH 30.3 pg (25.7-33.7); MCHC 31.1 g/dl (32.0-36.0); MEAN CELL VOLUME 97.4 fl (80-96); MEAN PLT VOLUME 8.8 fl (7.5-11.1); MONO % 5.4 % (3.8-10.2); PLATELET COUNT 176 K/MM3 (134-434); RBC 3.37 M/mm3 (3.60-5.2); RDW 19.3 % (11.6-15.6); WHITE BLOOD COUNT 8.7 K/mm3 (4.0-10.0)
[2018-11-23] MEDS ORDERED: PIPERACILLIN/TAZOB 4.5 GM 4.5 GM in DEXTROSE 5%-WATER 100 ML IVPB ONE (04:39)
[2018-11-23] MEDS ORDERED: VANCOMYCIN 1 GM in D5W (PRE-DOCKED) 1,000 MG/250 ML IVPB ONE (04:39)
[2018-11-23 04:40] LABS: ALBUMIN 2.9 g/dl (3.4-5.0); BILIRUBIN,TOTAL 0.5 mg/dL (0.2-1); CREATININE 1.1 mg/dL (0.55-1.3); MAGNESIUM 1.9 mg/dL (1.8-2.4); N-TERMINAL BNP 2596.4 pg/ml (5-125); POTASSIUM 4.4 mmol/L (3.5-5.1); TOT PROT 5.7 g/dl (6.4-8.2)
[2018-11-23] MEDS ORDERED: PIPERACILLIN/TAZOB 4.5 GM 4.5 GM/100 ML BAG IVPB ONE (04:51)
[2018-11-23] MEDS ORDERED: VANCOMYCIN 1 GRAM (PRE-DOCKED) 1,000 MG/250 ML BAG IVPB ONE (04:51)
[2018-11-23] MEDS ORDERED: SODIUM CHLORIDE 0.9% 500 ML INFUS.BAG IV ONE (04:58)
--- NOTE | 2018-11-23 05:05 | PDOC ---
Attending Attestation - Resident Resident Name: KrissAldair das - ED Attending Attestation I have performed the following: I have examined & evaluated the patient, The case was reviewed & discussed with the resident, I agree w/resident's findings & plan, Exceptions are as noted - HPI HPI: 11/23/18 05:02 The patient is a 73 year old with a past medical history of stage 4 lung cancer (s/p right upper lobe removal, currently on immunotherapy) and COPD (5L at home ) here today for evaluation of shortness of breath. She notes acute on chronic SOB tonight despite nebulizer use at her Assisted. States she usually feels better with 1-2 breathing treatments and steroids. Patient denies headache, lightheadedness. Denies fever, chills. Denies chest pain. - Physicial Exam PE: 11/23/18 05:02 GENERAL: The patient is in no acute distress. HEAD: Normal with no signs of trauma. EYES: PERRLA, EOMI, sclera anicteric, conjunctiva clear. ENT: Ears normal, nares patent, oropharynx clear without exudates. Moist mucous membranes. NECK: Normal range of motion, supple without lymphadenopathy, JVD, or masses. LUNGS: +tachypnic. +diffusely rhonchorous. +accessory muscle use. Breath sounds equal. No wheezes, and no crackles. Speaking in complete sentences. HEART: +tachycardic. Regular rhythm, normal S1 and S2 without murmur, rub or gallop. ABDOMEN: Soft, nontender, normoactive bowel sounds. No guarding, no rebound. No masses palpable. EXTREMITIES: +bilateral 2+ lower extremity edema. Normal range of motion. No clubbing or cyanosis. No erythema, or tenderness. NEUROLOGICAL: Cranial nerves II through XII grossly intact. Normal speech. No focal neurological deficits. MUSCULOSKELETAL: Back non-tender to palpation, no CVA tenderness SKIN: Warm, Dry, normal turgor, no rashes or lesions noted. - Critical Care Time Total Critical Care Time: 60 Critical Care Statement: The care of this patient involved high complexity decision making to prevent further life threatening deterioration of the patient 's condition and/or to evaluate & treat vital organ system(s) failure or risk of failure. - Medical Decision Making 11/23/18 05:02 Ms Fulton is a 73 y/o lady with Stage IV NSCLC (s/p Right Upper Lobectomy) on PD- 1 checkpoint inhibitor therapy. She presents with a complaint of shortness of breath She has a h/o COPD and CHF (refusing to take Lasix) No fevers or chills No chest pain NO abdominal pain No diarrhea 11/23/18 05:04 Laboratory Tests 11/23/18 11/23/18 11/23/18 03:38 03:38 03:38 WBC 8.7 Hgb 10.2 L Hct 32.8 D Plt Count 176 D Sodium 140 Potassium 4.4 Chloride 108 H Carbon Dioxide 26 BUN 30.0 H Creatinine 1.1 Random Glucose 257 H Lactic Acid Troponin I 0.13 H B-Natriuretic Peptide 2596.4 H 11/23/18 03:38 WBC Hgb Hct Plt Count Sodium Potassium Chloride Carbon Dioxide BUN Creatinine Random Glucose Lactic Acid 4.7 H* Troponin I B-Natriuretic Peptide 11/23/18 05:09 Pt shortness of breath has improved with nebs Pt REFUSES BiPAP Will continue nebs Will admit Clinical impression: COPD exacerbation, initial presentation
--- NOTE | 2018-11-23 05:47 | HP ---
Admitting History and Physical - Primary Care Physician PCP: Dr. Toro - Admission Chief Complaint: SOB History of Present Illness: 73 year old female with PMH of stage 4 lung CA s/p partial lobectomy (PD-1 checkpoint inhibitor therapy), CHF, HTN/HLD, RA, DM, COPD who arrived to the ED acute on chronic SOB (despite using nebs [place]). Patient describes difficulty breathing, sob, chest tightness similar to her prior exacerbation. Patient recently treated for UTI, (finished abx 1 week ago). Patient denies chest pain, fevers, chills. Denies N/V/D/C. History Source: Patient Limitations to Obtaining History: No Limitations - Past Medical History Cardiovascular: Yes: CHF, HTN, Hyperlipdemia Pulmonary: Yes: Bronchitis, Cancer, COPD, Other (Lung cancer --stage IIB . squamous cell) Rheumatology: Yes: Rheumatoid Arthritis Endocrine: Yes: Diabetes Mellitus - Past Surgical History Additional Past Surgical History: stage 4 lung cancer (s/p right upper lobe removal) - Smoking History Smoking history: Former smoker Have you smoked in the past 12 months: No Aproximately how many cigarettes per day: 10 If you are a former smoker, when did you quit?: 12/16/14 - Alcohol/Substance Use Hx Alcohol Use: No History of Substance Use: reports: None - Social History Usual Living Arrangement: Yes: [facility] ADL: Independent History of Recent Travel: No Home Medications - Allergies Allergies/Adverse Reactions: Allergies Allergy/AdvReac Type Severity Reaction Status Date / Time aspirin AdvReac Mild Verified 11/23/18 02:51 - Home Medications Home Medications: Ambulatory Orders Alprazolam [Xanax] 0.25 mg PO Q12H 06/15/18 Losartan Potassium [Cozaar -] 50 mg PO DAILY 06/15/18 Pantoprazole Sodium [Protonix -] 40 mg PO DAILY 06/15/18 Zolpidem Tartrate [Ambien] 10 mg PO DAILY 06/15/18 Acetaminophen [Tylenol .Extra-Strength -] 500 mg PO Q6H PRN tablet 06/19/18 Atovaquone [Mepron Oral Solution -] 1,500 mg PO DAILY@0800 #1 bottle 06/19/18 Albuterol Sulfate Inhaler - [Ventolin HFA Inhaler -] 2 puff IH Q6H PRN inhaler 06/25/18 Amlodipine Besylate [Norvasc -] 5 mg PO DAILY tablet 06/25/18 Sulfasalazine [Azulfidine En-Tabs -] 1,000 mg PO BID #120 tablet. 06/25/18 traMADol HCL [Ultram -] 50 mg PO Q8H PRN tablet MDD 3 06/25/18 Albuterol 0.083% Nebulizer Yudy [Ventolin 0.083% Nebulizer Soln -] 1 amp NEB RQID amp 09/24/18 Guaifenesin [Robitussin -] 10 ml PO Q6H PRN cup 09/24/18 Selin-Cath Flush [Selin-Cath Flush -] 10 ml IVPUSH PRN PRN ml 10/03/18 Buspirone HCl [Buspar -] 5 mg PO BID tablet 10/10/18 Leflunomide [Arava -] 20 mg PO DAILY #60 tablet 11/02/18 Nystatin Oral Suspension - [Nystatin Oral Susp 625695 Units/5 ML -] 500,000 units PO Q6HPO cup 11/02/18 predniSONE [Deltasone -] 20 mg PO DAILY #7 tablet 11/02/18 Heparin - 5,000 unit SQ Q12H 11/23/18 Silver Sulfadiazine 1% Top Cr [Silvadene -] 1 applic TP DAILY 11/23/18 Family Medical History Family History: Denies Review of Systems - Review of Systems Constitutional: reports: No Symptoms Eyes: reports: No Symptoms HENT: reports: No Symptoms Neck: reports: No Symptoms Cardiovascular: reports: No Symptoms Respiratory: reports: SOB, SOB on Exertion Gastrointestinal: reports: No Symptoms Genitourinary: reports: No Symptoms Musculoskeletal: reports: No Symptoms Integumentary: reports: No Symptoms Neurological: reports: No Symptoms Endocrine: reports: No Symptoms Hematology/Lymphatic: reports: No Symptoms Psychiatric: reports: No Symptoms Physical Examination Vital Signs: Vital Signs Temperature 97.9 F 11/23/18 02:35 Pulse Rate 110 H 11/23/18 02:35 Respiratory Rate 24 H 11/23/18 02:35 Blood Pressure 144/90 11/23/18 02:35 O2 Sat by Pulse Oximetry (%) 99 11/23/18 02:35 Constitutional: Yes: Mild Distress Eyes: Yes: Conjunctiva Clear, EOM Intact HENT: Yes: Atraumatic, Normocephalic Neck: Yes: Supple, Trachea Midline Cardiovascular: Yes: Tachycardia, S1, S2 Respiratory: Yes: CTA Bilaterally, Rhonchi, SOB, Tachypnea, Wheezes Gastrointestinal: Yes: Normal Bowel Sounds, Soft Musculoskeletal: Yes: WNL Extremities: Yes: WNL Edema: Yes Edema: LLE: 2+, RLE: 2+ Peripheral Pulses WNL: Yes Neurological: Yes: Alert, Oriented Labs: CBC, BMP 11/23/18 03:38 11/23/18 03:38 Imaging - Results Chest X-ray: Report Reviewed (CXR: multiple patchy infiltrates ( similar to older XR)) Other: Report Reviewed (lactic acid 4.7 troponin I : 0.13 likely demand BNP: 2596.4 Bun: 30.0, cr: wnl) Problem List - Problems (1) COPD with acute exacerbation Code(s): J44.1 - CHRONIC OBSTRUCTIVE PULMONARY DISEASE W (ACUTE) EXACERBATION (2) Acute on chronic diastolic CHF (congestive heart failure) Code(s): I50.33 - ACUTE ON CHRONIC DIASTOLIC (CONGESTIVE) HEART FAILURE (3) Stage 4 lung cancer Code(s): C34.90 - MALIGNANT NEOPLASM OF UNSP PART OF UNSP BRONCHUS OR LUNG Qualifiers: Laterality: unspecified laterality Qualified Code(s): C34.90 - Malignant neoplasm of unspecified part of unspecified bronchus or lung (4) HTN (hypertension) Code(s): I10 - ESSENTIAL (PRIMARY) HYPERTENSION Qualifiers: Hypertension type: unspecified Qualified Code(s): I10 - Essential (primary ) hypertension (5) Depression Code(s): F32.9 - MAJOR DEPRESSIVE DISORDER, SINGLE EPISODE, UNSPECIFIED (6) Anxiety Code(s): F41.9 - ANXIETY DISORDER, UNSPECIFIED (7) HLD (hyperlipidemia) Code(s): E78.5 - HYPERLIPIDEMIA, UNSPECIFIED (8) Diabetes Code(s): E11.9 - TYPE 2 DIABETES MELLITUS WITHOUT COMPLICATIONS Qualifiers: Diabetes mellitus complication status: without complication (9) Elevated troponin Code(s): R74.8 - ABNORMAL LEVELS OF OTHER SERUM ENZYMES (10) Lactic acid acidosis Code(s): E87.2 - ACIDOSIS Assessment/Plan 73 year old female with PMH of stage 4 lung CA s/p partial lobectomy (PD-1 checkpoint inhibitor therapy), CHF, HTN, RA, COPD and GERD who arrived to the ED acute on chronic SOB (despite using nebs [place]). # Acute COPD exacerbation # Elevated Lactic acid acidosis # Elevated troponin likley demand ischemia - trop: 0.13/ denies CP, repeat # 2 BiPAP attempted but pt refused in ED in ED: Duo-neb x2, Solumedrol 125mg IV given, Vanc/Zosyn for empiric coverage - improved - lactic acid elevated given 1 L NS, if needed IVF " slow rate", follow up repeat lactic level #2 ( ED will order) - continue with nebulizer QID - continue with solumedrol 40 IV push q 8, swtich to po as patient improves - continue with O2 via NC, switch to face mask if needed - continue with Tylenol PRN - follow up CBC, BMP - follow up ID # CHF -pt refuses to lasix at home BNP: 2596.4 elevated however not worse from prior visit - consider lasix if pt allows - Monitor I & O - follow up cardiology #HTN -Amlodipine Besylate 5 mg PO DAILY -Losartan Potassium 50 mg PO DAILY - monitor BP # RA -Leflunomide 20 mg PO DAILY -Sulfasalazine 1,000 mg PO BID -traMADol HCL 50 mg PO Q8H PRN # anxiety # In[place]mia -Zolpidem Tartrate 10 mg PO DAILY -Alprazolam 0.25 mg PO Q12H -Buspirone HCl 5 mg PO BID # GERD Pantoprazole Sodium 40 mg PO DAILY Visit type - Emergency Visit Emergency Visit: Yes ED Registration Date: 11/23/18 Care time: The patient presented to the Emergency Department on the above date and was hospitalized for further evaluation of their emergent condition. - New Patient This patient is new to me today: Yes Date on this admission: 11/23/18 - Critical Care Critical Care patient: No
[2018-11-23] MEDS ORDERED: ACETAMINOPHEN 325 MG TABLET (FP) PO PRN ×2 (06:27→07:23)
[2018-11-23] MEDS ORDERED: traMADol HCL 50 MG TABLET PO PRN (06:33)
[2018-11-23] MEDS ORDERED: ALPRAZolam 0.25 MG TABLET PO SCH ×3 (06:45→22:00)
[2018-11-23] MEDS ORDERED: ATOVAQUONE 750 MG/5 ML (UNIT-DOSE PACKAGING) PO SCH (08:00)
[2018-11-23] MEDS: ALBUTEROL SO4 0.083% IH SOL 2.5 MG/3 ML VIAL.NEB. NEB SCH ×2 (09:00→13:25)
[2018-11-23] MEDS: IPRATROPIUM BR 0.02% 0.5 MG/2.5 ML VIAL.NEB. NEB SCH ×2 (09:00→13:25)
[2018-11-23] MEDS ORDERED: PANTOPRAZOLE 40 MG TABLET (FP) PO SCH (10:00)
[2018-11-23] MEDS ORDERED: LEFLUNOMIDE 10 MG TABLET PO SCH (10:00)
[2018-11-23] MEDS ORDERED: amLODIPine BESYLATE 5 MG TABLET (FP) PO SCH (10:00)
[2018-11-23] MEDS ORDERED: LOSARTAN POTASSIUM 50 MG TABLET (FP) PO SCH (10:00)
[2018-11-23] MEDS: busPIRone HCL 5 MG TABLET PO SCH ×2 (10:30→22:59)
[2018-11-23] MEDS: HEPARIN NA (PORCINE) 5,000 UNITS/ML 1ML VIAL SQ SCH ×2 (10:30→22:59)
[2018-11-23] MEDS: methylPREDNISolone NA SUCC 40 MG/1 ML VIAL IVPUSH SCH ×2 (10:30→19:13)
--- NOTE | 2018-11-23 13:08 | PN ---
Progress Note, Physician Chief Complaint: patient seen and examined sitting up in bed says her legs are swollen - Current Medication List Current Medications: Active Medications Acetaminophen (Tylenol -) 650 mg PO Q4H PRN PRN Reason: PAIN OR FEVER Albuterol Sulfate (Ventolin 0.083% Nebulizer Soln -) 1 amp NEB RQID [facility] Last Admin: 11/23/18 09:00 Dose: 1 amp Alprazolam (Xanax -) 0.25 mg PO BID [facility] Amlodipine Besylate (Norvasc -) 5 mg PO DAILY [facility] Last Admin: 11/23/18 10:30 Dose: 5 mg Atovaquone (Mepron -) 1,500 mg PO DAILY@0800 [facility] Last Admin: 11/23/18 09:00 Dose: 1,500 mg Buspirone HCl (Buspar -) 5 mg PO BID [facility] Last Admin: 11/23/18 10:30 Dose: 5 mg Furosemide (Lasix Injection -) 40 mg IVPUSH DAILY [facility] Heparin Sodium (Porcine) (Heparin -) 5,000 unit SQ BID [facility] Last Admin: 11/23/18 10:30 Dose: 5,000 unit Ipratropium [place] (Atrovent 0.02% Nebulizer -) 1 amp NEB RQID [facility] Last Admin: 11/23/18 09:00 Dose: 1 amp Leflunomide (Arava -) 20 mg PO DAILY [facility] Last Admin: 11/23/18 10:30 Dose: 20 mg Losartan Potassium (Cozaar -) 50 mg PO DAILY [facility] Last Admin: 11/23/18 10:30 Dose: 50 mg Methylprednisolone Sodium Succinate (Solu-Medrol -) 40 mg IVPUSH Q8H-IV [facility] Last Admin: 11/23/18 10:30 Dose: 40 mg Pantoprazole Sodium (Protonix -) 40 mg PO DAILY [facility] Last Admin: 11/23/18 10:30 Dose: 40 mg Sulfasalazine (Azulfidine En-Tabs -) 1,000 mg PO BID [facility] Last Admin: 11/23/18 10:30 Dose: 1,000 mg Tramadol HCl (Ultram -) 50 mg PO Q8H PRN PRN Reason: PAIN LEVEL 1-5 Zolpidem Tartrate (Ambien -) 5 mg PO [facility] - Objective Vital Signs: Vital Signs Temperature 97.8 F 11/23/18 07:20 Pulse Rate 124 H 11/23/18 07:20 Respiratory Rate 30 H 11/23/18 07:20 Blood Pressure 166/92 11/23/18 07:20 O2 Sat by Pulse Oximetry (%) 100 11/23/18 07:20 Constitutional: Yes: Calm Cardiovascular: Yes: Regular Rate and Rhythm, S1, S2 Respiratory: Yes: Diminished Gastrointestinal: Yes: Normal Bowel Sounds, Soft Edema: Yes Neurological: Yes: Alert, Oriented Labs: CBC, BMP 11/23/18 03:38 11/23/18 03:38 INR, PTT INR 1.13 (0.83-1.09) H 11/23/18 03:38 Problem List - Problems (1) SOB (shortness of breath) Assessment/Plan: iv lasix cxr noted with extensive metasatic lung disease solumedrol nebulizers pulm/oncology eval Dnr DNI Code(s): R06.02 - SHORTNESS OF BREATH (2) Stage 4 lung cancer Assessment/Plan: heme eval oxygen dvt ppx 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
[2018-11-23] MEDS ORDERED: IPRATROPIUM BR 0.02% 0.5 MG/2.5 ML VIAL.NEB. NEB ONE (13:29)
[2018-11-23] MEDS ORDERED: ALBUTEROL SO4 0.083% IH SOL 2.5 MG/3 ML VIAL.NEB. NEB ONE (13:30)
[2018-11-23] MEDS ORDERED: FUROSEMIDE 40 MG/4 ML INJECTABLE VIAL ONE (14:14)
[2018-11-23] MEDS: FUROSEMIDE 40 MG/4 ML INJECTABLE VIAL IVPUSH SCH ×2 (14:20→14:32)
--- NOTE | 2018-11-23 14:22 | EKG ---
Test Reason : Blood Pressure : / mmHG Vent. Rate : 126 BPM Atrial Rate : 126 BPM P-R Int : 152 ms QRS Dur : 068 ms QT Int : 322 ms P-R-T Axes : 000 035 147 degrees QTc Int : 466 ms SINUS TACHYCARDIA WITH PREMATURE ATRIAL COMPLEXES NONSPECIFIC ST ABNORMALITY ABNORMAL ECG Confirmed by DANIELA JACOBO MD ([id number]) on 11/23/2018 2:22:30 PM Referred By: Confirmed By:DANIELA JACOBO MD
--- NOTE | 2018-11-23 14:44 | PN ---
Progress Note (short form) - Note Progress Note: ID consult dictated imp/reccd 73 yo female with lung cancer admitted with worsening SOB, history of chf and copd her legs are very swollen no fevers cough unchanged normal wbc cxray unchanged doubt pneumonia no fevers normal wbc would treat for chfr and copd at this time lung cancer - f/u per oncology please call back if needed Problem List - Problems (1) COPD with acute exacerbation Code(s): J44.1 - CHRONIC OBSTRUCTIVE PULMONARY DISEASE W (ACUTE) EXACERBATION (2) CHF exacerbation Code(s): I50.9 - HEART FAILURE, UNSPECIFIED (3) Stage 4 lung cancer Code(s): C34.90 - MALIGNANT NEOPLASM OF UNSP PART OF UNSP BRONCHUS OR LUNG Qualifiers: Laterality: unspecified laterality Qualified Code(s): C34.90 - Malignant neoplasm of unspecified part of unspecified bronchus or lung
--- NOTE | 2018-11-23 15:12 | HP ---
Admitting History and Physical - Past Medical History Cardiovascular: Yes: CHF, HTN, Hyperlipdemia Pulmonary: Yes: Bronchitis, Cancer, COPD, Other (Lung cancer --stage IIB . squamous cell) Rheumatology: Yes: Rheumatoid Arthritis Endocrine: Yes: Diabetes Mellitus - Past Surgical History Additional Past Surgical History: stage 4 lung cancer (s/p right upper lobe removal) - Smoking History Smoking history: Former smoker Have you smoked in the past 12 months: No Aproximately how many cigarettes per day: 10 If you are a former smoker, when did you quit?: 12/16/14 - Alcohol/Substance Use Hx Alcohol Use: No History of Substance Use: reports: None - Social History ADL: Independent History of Recent Travel: No Home Medications - Allergies Allergies/Adverse Reactions: Allergies Allergy/AdvReac Type Severity Reaction Status Date / Time aspirin AdvReac Mild Verified 11/23/18 02:51 - Home Medications Home Medications: Ambulatory Orders Alprazolam [Xanax] 0.25 mg PO Q12H 06/15/18 Losartan Potassium [Cozaar -] 50 mg PO DAILY 06/15/18 Pantoprazole Sodium [Protonix -] 40 mg PO DAILY 06/15/18 Zolpidem Tartrate [Ambien] 10 mg PO DAILY 06/15/18 Acetaminophen [Tylenol .Extra-Strength -] 500 mg PO Q6H PRN tablet 06/19/18 Atovaquone [Mepron Oral Solution -] 1,500 mg PO DAILY@0800 #1 bottle 06/19/18 Albuterol Sulfate Inhaler - [Ventolin HFA Inhaler -] 2 puff IH Q6H PRN inhaler 06/25/18 Amlodipine Besylate [Norvasc -] 5 mg PO DAILY tablet 06/25/18 Sulfasalazine [Azulfidine En-Tabs -] 1,000 mg PO BID #120 tablet.dr 06/25/18 traMADol HCL [Ultram -] 50 mg PO Q8H PRN tablet MDD 3 06/25/18 Albuterol 0.083% Nebulizer Yudy [Ventolin 0.083% Nebulizer Soln -] 1 amp NEB RQID amp 09/24/18 Guaifenesin [Robitussin -] 10 ml PO Q6H PRN cup 09/24/18 Selin-Cath Flush [Selin-Cath Flush -] 10 ml IVPUSH PRN PRN ml 10/03/18 Buspirone HCl [Buspar -] 5 mg PO BID tablet 10/10/18 Leflunomide [Arava -] 20 mg PO DAILY #60 tablet 11/02/18 Nystatin Oral Suspension - [Nystatin Oral Susp 750609 Units/5 ML -] 500,000 units PO Q6HPO cup 11/02/18 predniSONE [Deltasone -] 20 mg PO DAILY #7 tablet 11/02/18 Heparin - 5,000 unit SQ Q12H 11/23/18 Silver Sulfadiazine 1% Top Cr [Silvadene -] 1 applic TP DAILY 11/23/18 Physical Examination Vital Signs: Vital Signs Temperature 97.8 F 11/23/18 07:20 Pulse Rate 124 H 11/23/18 07:20 Respiratory Rate 30 H 11/23/18 07:20 Blood Pressure 166/92 11/23/18 07:20 O2 Sat by Pulse Oximetry (%) 100 11/23/18 07:20 Labs: CBC, BMP 11/23/18 03:38 11/23/18 03:38 Assessment/Plan Patient seen and examined 73 year old female History of Squamous cell carcinoma of lung - multiple treatment regimens in past . Recently on Nivolumab q month. History of COPD, CHF, Rheumatoid arthritis. CT with extensive lung involvement Comes to ER with progressive SOB and dyspnea from SNF. Last Vital Signs Temp Pulse Resp BP Pulse Ox 97.8 F 124 H 30 H 166/92 100 11/23/18 07:20 11/23/18 07:20 11/23/18 07:20 11/23/18 07:20 11/23/18 07:20 HEENT: GIUSEPPE, EOM Intact Oropharynx: No thrush, No mucositisdentures Neck: Supple Nodes: Without adenopathy Breasts: Without masses Cor: sinus tachycardia Lungs: rhonchi/wheezes Abd: Soft, Normal bowel sounds, No organomegaly Ext:LE edema Skin: No rashes, Integument intact CBC, BMP 11/23/18 03:38 11/23/18 03:38 Current Medications Generic Name Dose Route Start Last Admin Trade Name Freq PRN Reason Stop Dose Admin Acetaminophen 650 mg 11/23/18 07:23 Tylenol - PO Q4H PRN PAIN OR FEVER Albuterol Sulfate 1 amp 11/23/18 08:00 11/23/18 13:25 Ventolin 0.083% Nebulizer Soln - NEB 1 amp RQID [facility]ARD Administration Alprazolam 0.25 mg 11/23/18 22:00 Xanax - PO BID [facility]ARD Amlodipine Besylate 5 mg 11/23/18 10:00 11/23/18 10:30 Norvasc - PO 5 mg DAILY [facility] Administration Atovaquone 1,500 mg 11/23/18 08:00 11/23/18 09:00 Mepron - PO 1,500 mg DAILY@0800 [facility] Administration Buspirone HCl 5 mg 11/23/18 10:00 11/23/18 10:30 Buspar - PO 5 mg BID [facility] Administration Furosemide 40 mg 11/23/18 14:00 11/23/18 14:32 Lasix Injection - IVPUSH Not Given DAILY [facility] Heparin Sodium (Porcine) 5,000 unit 11/23/18 10:00 11/23/18 10:30 Heparin - SQ 5,000 unit BID [facility] Administration Ipratropium [place] 1 amp 11/23/18 08:00 11/23/18 13:25 Atrovent 0.02% Nebulizer - NEB 1 amp RQID [facility] Administration Leflunomide 20 mg 11/23/18 10:00 11/23/18 10:30 Arava - PO 20 mg DAILY [facility] Administration Losartan Potassium 50 mg 11/23/18 10:00 11/23/18 10:30 Cozaar - PO 50 mg DAILY [facility] Administration Methylprednisolone Sodium Succinate 40 mg 11/23/18 10:00 11/23/18 10:30 Solu-Medrol - IVPUSH 40 mg Q8H-IV [facility] Administration Pantoprazole Sodium 40 mg 11/23/18 10:00 11/23/18 10:30 Protonix - PO 40 mg DAILY [facility] Administration Sulfasalazine 1,000 mg 11/23/18 10:00 11/23/18 10:30 Azulfidine En-Tabs - PO 1,000 mg BID [facility] Administration Tramadol HCl 50 mg 11/23/18 06:33 Ultram - PO Q8H PRN PAIN LEVEL 1-5 Zolpidem Tartrate 5 mg 11/23/18 22:00 Ambien - PO HS [facility] Impression: SCC of lung COPD CHF Rheumatoid Prior therapy of nivolumab q month Plan: Lasix diuresis Ativan prn May need low dose morphine for anxiety. Decision about further Nivolumab to be decided with patient and Dr. Paige.
[2018-11-23] MEDS ORDERED: LORazepam 0.5 MG TABLET PO PRN (15:13)
--- NOTE | 2018-11-23 15:16 | PN ---
Progress Note (short form) - Note Progress Note: PULMONARY CONSULTATION DICTATED 11/23/18 IMP ACUTE ON CHRONIC HYPOXEMIC/HYPERCAPNEIC RESPIRATORY FAILURE COPD WITH ACUTE EXACERBATION ADVANCED METASTATIC LUNG CA ELEVATED LACTATE LEVEL HTN CHF HLD RA PLAN IV STEROIDS INHALED BRONCHODILATORS O2 LASIX TREND LACTATE F/U CHEST X-RAYS DR KERR Problem List - Problems (1) COPD exacerbation Code(s): J44.1 - CHRONIC OBSTRUCTIVE PULMONARY DISEASE W (ACUTE) EXACERBATION (2) COPD with acute exacerbation Code(s): J44.1 - CHRONIC OBSTRUCTIVE PULMONARY DISEASE W (ACUTE) EXACERBATION (3) Elevated lactic acid level Code(s): R79.89 - OTHER SPECIFIED ABNORMAL FINDINGS OF BLOOD CHEMISTRY (4) HLD (hyperlipidemia) Code(s): E78.5 - HYPERLIPIDEMIA, UNSPECIFIED (5) Stage 4 lung cancer Code(s): C34.90 - MALIGNANT NEOPLASM OF UNSP PART OF UNSP BRONCHUS OR LUNG Qualifiers: Laterality: unspecified laterality Qualified Code(s): C34.90 - Malignant neoplasm of unspecified part of unspecified bronchus or lung (6) HTN (hypertension) Code(s): I10 - ESSENTIAL (PRIMARY) HYPERTENSION Qualifiers: Hypertension type: unspecified Qualified Code(s): I10 - Essential (primary ) hypertension (7) Acute on chronic respiratory failure with hypoxemia Code(s): J96.21 - ACUTE AND CHRONIC RESPIRATORY FAILURE WITH HYPOXIA (8) Diabetes Code(s): E11.9 - TYPE 2 DIABETES MELLITUS WITHOUT COMPLICATIONS Qualifiers: Diabetes mellitus complication status: without complication (9) GERD (gastroesophageal reflux disease) Code(s): K21.9 - GASTRO-ESOPHAGEAL REFLUX DISEASE WITHOUT ESOPHAGITIS (10) Lactic acid acidosis Code(s): E87.2 - ACIDOSIS (11) Metastatic lung cancer (metastasis from lung to other site) Code(s): C34.90 - MALIGNANT NEOPLASM OF UNSP PART OF UNSP BRONCHUS OR LUNG (12) Rheumatoid arthritis Code(s): M06.9 - RHEUMATOID ARTHRITIS, UNSPECIFIED (13) Shortness of breath Code(s): R06.02 - SHORTNESS OF BREATH
--- NOTE | 2018-11-23 17:35 | CON.CARD ---
Consult Consult Specialty:: cardiology Reason for Consultation:: SOB; CHF; lung CA - History of Present Illness Chief Complaint: PT A&OX3; dyspneic; anxious History of Present Illness: Ms. Fulton is a 73 year old black woman with a past medical history of stage 4 lung cancer (s/p right upper lobe removal, currently on immunotherapy), COPD ( 5L at home), diastolic CHF (DCHO 10/2018: normal LVEF; abnormal diastrolic compliance;small pericardial effusion), ,moderate pulmonary HTN, here today for evaluation of shortness of breath and bilateral LE edema that worsened over the past 48 hours. She notes acute on chronic SOB tonight despite nebulizer use at her Shelter. States she usually feels better with 1-2 breathing treatments and steroids. Patient denies headache, lightheadedness. Denies fever, chills. Denies chest pain. - History Source History Provided By: Patient, Medical Record Limitations to Obtaining History: No Limitations - Past Medical History Cardio/Vascular: Yes: CHF, HTN, Hyperlipdemia, Pulmonary Hypertension (moderate) Pulmonary: Yes: Bronchitis, Cancer, COPD, Other (Lung cancer --stage IIB . squamous cell) Reproductive: Yes: Postmenopausal ...: No Heme/Onc: Yes: Anemia Rheumatology: Yes: Rheumatoid Arthritis Endocrine: Yes: Diabetes Mellitus - Alcohol/Substance Use Hx Alcohol Use: No History of Substance Use: reports: None - Smoking History Smoking history: Former smoker Have you smoked in the past 12 months: No Aproximately how many cigarettes per day: 10 If you are a former smoker, when did you quit?: 12/16/14 - Social History ADL: Independent History of Recent Travel: No Home Medications - Allergies Allergies/Adverse Reactions: Allergies Allergy/AdvReac Type Severity Reaction Status Date / Time aspirin AdvReac Mild Verified 11/23/18 02:51 - Home Medications Home Medications: Ambulatory Orders Alprazolam [Xanax] 0.25 mg PO Q12H 06/15/18 Losartan Potassium [Cozaar -] 50 mg PO DAILY 06/15/18 Pantoprazole Sodium [Protonix -] 40 mg PO DAILY 06/15/18 Zolpidem Tartrate [Ambien] 10 mg PO DAILY 06/15/18 Acetaminophen [Tylenol .Extra-Strength -] 500 mg PO Q6H PRN tablet 06/19/18 Atovaquone [Mepron Oral Solution -] 1,500 mg PO DAILY@0800 #1 bottle 06/19/18 Albuterol Sulfate Inhaler - [Ventolin HFA Inhaler -] 2 puff IH Q6H PRN inhaler 06/25/18 Amlodipine Besylate [Norvasc -] 5 mg PO DAILY tablet 06/25/18 Sulfasalazine [Azulfidine En-Tabs -] 1,000 mg PO BID #120 tablet. 06/25/18 traMADol HCL [Ultram -] 50 mg PO Q8H PRN tablet MDD 3 06/25/18 Albuterol 0.083% Nebulizer Yudy [Ventolin 0.083% Nebulizer Soln -] 1 amp NEB RQID amp 09/24/18 Guaifenesin [Robitussin -] 10 ml PO Q6H PRN cup 09/24/18 Selin-Cath Flush [Selin-Cath Flush -] 10 ml IVPUSH PRN PRN ml 10/03/18 Buspirone HCl [Buspar -] 5 mg PO BID tablet 10/10/18 Leflunomide [Arava -] 20 mg PO DAILY #60 tablet 11/02/18 Nystatin Oral Suspension - [Nystatin Oral Susp 630462 Units/5 ML -] 500,000 units PO Q6HPO cup 11/02/18 predniSONE [Deltasone -] 20 mg PO DAILY #7 tablet 11/02/18 Heparin - 5,000 unit SQ Q12H 11/23/18 Silver Sulfadiazine 1% Top Cr [Silvadene -] 1 applic TP DAILY 11/23/18 Family Medical History Family History: Denies Review of Systems - Review of Systems Constitutional: reports: Weakness Eyes: reports: No Symptoms HENT: reports: No Symptoms Neck: reports: No Symptoms Cardiovascular: reports: Shortness of Breath Respiratory: reports: Cough, Exercise Intolerance, Orthopnea, PND, SOB, Wheezing Gastrointestinal: reports: No Symptoms Genitourinary: reports: No Symptoms Breasts: reports: No Symptoms Reported Musculoskeletal: reports: Muscle Weakness Neurological: reports: Unsteady Gait, Weakness Endocrine: reports: No Symptoms Hematology/Lymphatic: reports: Swollen Glands Psychiatric: reports: Altered Sleep Pattern, Anxiety, Depression - Risk Factors Known Risk Factors: Yes: Age, Hypercholesterolemia, Hypertension, Physical Inactivity, Race, Smoking, Other (lung CA with metastases (to liver)) Vital Signs: Vital Signs Temperature 97.8 F 11/23/18 07:20 Pulse Rate 124 H 11/23/18 07:20 Respiratory Rate 30 H 11/23/18 07:20 Blood Pressure 166/92 11/23/18 07:20 O2 Sat by Pulse Oximetry (%) 100 11/23/18 07:20 Constitutional: Yes: Anxious, Moderate Distress Eyes: Yes: WNL HENT: Yes: WNL Neck: Yes: WNL Respiratory: Yes: Diminished, Rales, Rhonchi, SOB, Tachypnea Gastrointestinal: Yes: Soft Renal/: No: Anuria Cardiovascular: Yes: Tachycardia JVD: Yes Carotid Bruit: No PMI: Non-Displaced Heart Sounds: Yes: S1, S2, S4 Murmur: Yes: Systolic Murmur, Grade 1 Musculoskeletal: Yes: Joint Stiffness, Muscle Weakness Extremities: Yes: Cool Edema: Yes Edema: LLE: 2+, RLE: 2+ Peripheral Pulses WNL: Yes Integumentary: Yes: Venous Stasis Changes Neurological: Yes: Alert, Oriented, Weakness Psychiatric: Yes: Alert, Oriented, Other (depression) - Other Data Labs, Other Data: CBC, BMP 11/23/18 03:38 11/23/18 03:38 INR, PTT INR 1.13 (0.83-1.09) H 11/23/18 03:38 Troponin, BNP 11/23/18 03:38 Troponin I 0.13 H B-Natriuretic Peptide 2596.4 H Troponin, BNP 11/23/18 03:38 Troponin I 0.13 H B-Natriuretic Peptide 2596.4 H Echo: Report Reviewed Ejection Fraction %: LVEF > or = 40 % Imaging - Results Chest X-ray: Image Reviewed (extensive large bilateral lung masses (similar to previous xray)) Cat Scan: Image Reviewed EKG: Image Reviewed Problem List - Problems (1) HLD (hyperlipidemia) Code(s): E78.5 - HYPERLIPIDEMIA, UNSPECIFIED (2) Stage 4 lung cancer Assessment/Plan: extensive bilateral lung masses with liver metastases. Rx per oncologit, hoop maker helper machine. Pain management. Keep comfortable. Code(s): C34.90 - MALIGNANT NEOPLASM OF UNSP PART OF UNSP BRONCHUS OR LUNG Qualifiers: Laterality: unspecified laterality Qualified Code(s): C34.90 - Malignant neoplasm of unspecified part of unspecified bronchus or lung (3) HTN (hypertension) Assessment/Plan: On losartan, amlodipine, and furosemide. ECHO: normal LVEF. Would reduce or discontinue furosemide (rising BUN; SOB primarily due to overwhemling lung CA). Code(s): I10 - ESSENTIAL (PRIMARY) HYPERTENSION Qualifiers: Hypertension type: unspecified Qualified Code(s): I10 - Essential (primary ) hypertension (4) Acute on chronic diastolic CHF (congestive heart failure) Assessment/Plan: On losartan, amlodipine, furosemide. Avoid excessive dehydration; consider reducing or discontinuing furosemide( rising BUN; SOB primarily due to extensive lung CA). F/u BUn/Cr, electrolytes, daily wt, Is and os. Code(s): I50.33 - ACUTE ON CHRONIC DIASTOLIC (CONGESTIVE) HEART FAILURE (5) Hypoalbuminemia Code(s): E88.09 - OTH DISORDERS OF PLASMA-PROTEIN METABOLISM, NEC (6) Elevated troponin Assessment/Plan: mildly elevated TNI (0.13); was as high as 0.44 on admission in October. While CAD cannot be excluded (long hx cigarettes; HTN; hyperlipidemia), pt has multiple factors contributing to demand ischemia, including CA disease process with respiratory failure, CHF, tachycardia, F/u serially; given advanced state of cancer, would treat conservatively. Code(s): R74.8 - ABNORMAL LEVELS OF OTHER SERUM ENZYMES (7) Elevated lactic acid level Code(s): R79.89 - OTHER SPECIFIED ABNORMAL FINDINGS OF BLOOD CHEMISTRY
[2018-11-23] MEDS ORDERED: methylPREDNISolone NA SUCC 40 MG/1 ML VIAL ONE (18:45)
[2018-11-23] MEDS: ALBUTEROL SO4 0.083% IH SOL 2.5 MG/3 ML VIAL.NEB. NEB PRN ×2 (19:30→22:52)
--- NOTE | 2018-11-23 22:55 | CONS ---
DATE OF CONSULTATION: DATE OF DICTATION: 11/23/2018 INFECTIOUS DISEASE CONSULTATION REQUESTING PHYSICIAN: Lior Toro M.D. CONSULTING PHYSICIAN: Evan Flores M.D. HISTORY OF PRESENT ILLNESS: The patient was seen in the emergency room. This is a 73-year-old female with lung cancer. She is on nivolumab monthly as an outpatient. She has a history of CHF and COPD. She now comes to the hospital from [facility] with worsening shortness of breath. She notes no fevers. Her cough is unchanged. She has worsening lower extremity edema. Chest x-ray was done, and it is unchanged from the past. She denies any diarrhea. She denies any fevers, chills, nausea, vomiting, or dysuria. PAST MEDICAL HISTORY: Notable for CHF, hypertension, hyperlipidemia, bronchitis. She has lung cancer, squamous cell type. She has a history of rheumatoid arthritis and diabetes. SURGICAL HISTORY: Notable for stage 4 lung cancer. She is status post right upper lobe removal. SOCIAL HISTORY: She resides at the group home now. She is a former smoker. She quit in 2014. There is no history of any substance use. There is no recent travel. ALLERGIES: She is allergic to ASPIRIN. MEDICATION: Her medications as an outpatient include tramadol, prednisone, Ambien, sulfasalazine, Nystatin, Protonix, leflunomide, losartan, BuSpar, Mepron, Norvasc, Xanax, Ventolin inhaler. REVIEW OF SYSTEMS: As per HPI. She has no chest pain or abdominal pain. PHYSICAL EXAMINATION: General: She is an older woman, moderately tachypneic. She does not have any complaints. Vital Signs: Temperature 97.8, pulse 122, blood pressure 153/98. Respiratory rate is 35. She is on 2 L nasal cannula, saturating 93%. HEENT: Normocephalic. Eyes are anicteric. She has no thrush. Lungs: Clear to auscultation. Heart: Regular rate and rhythm. Tachycardic. Chest: Diminished breath sounds at the bases. Abdomen: Soft, nontender. Extremities: 2+ pitting edema. Chest x-ray reveals extensive bilateral lung masses with adenopathy. She has clips in the right upper lobe, and she has a right sided port that is unchanged from October. LABORATORY: Notable for white count 8.7, hemoglobin 10.2, platelets 176. BUN and creatinine are 30 and 1.1. LFTs are notable for alkaline phosphatase of 125. IMPRESSION: In summary, this is an elderly woman with lung cancer stage 4 admitted with a congestive heart failure exacerbation with worsening lower extremity edema. She had a normal white count and has no fevers or chills. It was an unchanged chest x-ray. I doubt she has pneumonia. I would treat her for CHF and COPD at this time. Overall prognosis is extremely poor. EVAN FLORES M.D. [id number]
[2018-11-23] MEDS: ZOLPIDEM TARTRATE 5 MG TABLET PO SCH (22:57)
[2018-11-24] MEDS: ZOLPIDEM TARTRATE 5 MG TABLET PO SCH (01:57)
[2018-11-24] MEDS: methylPREDNISolone NA SUCC 40 MG/1 ML VIAL IVPUSH SCH ×4 (01:58→17:19)
[2018-11-24] MEDS: ALBUTEROL SO4 0.083% IH SOL 2.5 MG/3 ML VIAL.NEB. NEB PRN (04:00)
[2018-11-24] MEDS ORDERED: ACETAMINOPHEN 325 MG TABLET (FP) PO PRN (04:24)
[2018-11-24] MEDS ORDERED: LORazepam 0.5 MG TABLET PO PRN (04:24)
[2018-11-24] MEDS: ALBUTEROL SO4 2.5/IPRATROPIUM 0.5 INH SOL 3 ML VIAL.NEB. NEB SCH ×4 (07:37→20:15)
[2018-11-24] MEDS ORDERED: PT OWN MED DRAWER 7, Y5N ONE ×3 (08:20→21:43)
[2018-11-24] MEDS: ATOVAQUONE 750 MG/5 ML (UNIT-DOSE PACKAGING) PO SCH (10:13)
[2018-11-24] MEDS: LEFLUNOMIDE 10 MG TABLET PO SCH (10:14)
[2018-11-24] MEDS: busPIRone HCL 5 MG TABLET PO SCH ×2 (10:16→21:56)
[2018-11-24] MEDS: LOSARTAN POTASSIUM 50 MG TABLET (FP) PO SCH (10:17)
[2018-11-24] MEDS: PANTOPRAZOLE 40 MG TABLET (FP) PO SCH (10:17)
[2018-11-24] MEDS: amLODIPine BESYLATE 5 MG TABLET (FP) PO SCH (10:17)
[2018-11-24] MEDS: FUROSEMIDE 40 MG/4 ML INJECTABLE VIAL IVPUSH SCH ×2 (10:18→10:22)
[2018-11-24] MEDS: HEPARIN NA (PORCINE) 5,000 UNITS/ML 1ML VIAL SQ SCH ×2 (10:18→23:12)
--- NOTE | 2018-11-24 11:38 | PN ---
Progress Note, Physician Chief Complaint: Cardiology for Dr. Sierra History of Present Illness: Dyspnea slighly improved, nonproductive cough, sitting in wheelchair. - Current Medication List Current Medications: Active Medications Acetaminophen (Tylenol -) 650 mg PO Q4H PRN PRN Reason: PAIN OR FEVER Albuterol Sulfate (Ventolin 0.083% Nebulizer Soln -) 1 amp NEB RQ4H PRN PRN Reason: SHORT OF BREATH/WHEEZING Last Admin: 11/24/18 04:00 Dose: 1 amp Albuterol/Ipratropium (Duoneb -) 1 amp NEB RQID [facility] Last Admin: 11/24/18 11:32 Dose: 1 amp Amlodipine Besylate (Norvasc -) 5 mg PO DAILY [facility] Last Admin: 11/24/18 10:17 Dose: 5 mg Atovaquone (Mepron -) 1,500 mg PO DAILY@0800 [facility] Last Admin: 11/24/18 10:13 Dose: 1,500 mg Buspirone HCl (Buspar -) 5 mg PO BID [facility] Last Admin: 11/24/18 10:16 Dose: 5 mg Furosemide (Lasix Injection -) 40 mg IVPUSH DAILY [facility] Last Admin: 11/24/18 10:22 Dose: Not Given Heparin Sodium (Porcine) (Heparin -) 5,000 unit SQ BID [facility] Last Admin: 11/24/18 10:18 Dose: 5,000 unit Leflunomide (Arava -) 20 mg PO DAILY [facility] Last Admin: 11/24/18 10:14 Dose: 20 mg Lorazepam (Ativan -) 0.5 mg PO Q6H PRN PRN Reason: ANXIETY Losartan Potassium (Cozaar -) 50 mg PO DAILY [facility] Last Admin: 11/24/18 10:17 Dose: 50 mg Methylprednisolone Sodium Succinate (Solu-Medrol -) 40 mg IVPUSH Q8H-IV [facility] Last Admin: 11/24/18 10:13 Dose: 40 mg Pantoprazole Sodium (Protonix -) 40 mg PO DAILY [facility] Last Admin: 11/24/18 10:17 Dose: 40 mg Sulfasalazine (Azulfidine En-Tabs -) 1,000 mg PO BID [facility] Last Admin: 11/24/18 10:15 Dose: 1,000 mg Tramadol HCl (Ultram -) 50 mg PO Q8H PRN PRN Reason: PAIN LEVEL 1-5 Zolpidem Tartrate (Ambien -) 5 mg PO HS RICHARD - Objective Vital Signs: Vital Signs Temperature 97.4 F L 11/24/18 10:00 Pulse Rate 122 H 11/24/18 10:00 Respiratory Rate 24 H 11/24/18 10:00 Blood Pressure 161/82 11/24/18 10:00 O2 Sat by Pulse Oximetry (%) 93 L 11/24/18 10:00 Constitutional: Yes: No Distress, Calm Neck: Yes: Supple Cardiovascular: Yes: Regular Rate and Rhythm Respiratory: Yes: Regular, Cough, On Nasal O2, SOB Gastrointestinal: Yes: Normal Bowel Sounds, Soft, Abdomen, Obese Edema: Yes Edema: LLE: 2+, RLE: 2+ Labs: CBC, BMP 11/23/18 03:38 11/23/18 03:38 INR, PTT INR 1.13 (0.83-1.09) H 11/23/18 03:38 - ....Imaging EKG: Report Reviewed Assessment/Plan - Problems (1) HLD (hyperlipidemia) Code(s): E78.5 - HYPERLIPIDEMIA, UNSPECIFIED (2) Stage 4 lung cancer Assessment/Plan: extensive bilateral lung masses with liver metastases. IV steroids with GI protection, BD, O2, analgesia as needed Code(s): C34.90 - MALIGNANT NEOPLASM OF UNSP PART OF UNSP BRONCHUS OR LUNG Qualifiers: Laterality: unspecified laterality Qualified Code(s): C34.90 - Malignant neoplasm of unspecified part of unspecified bronchus or lung (3) HTN (hypertension) Assessment/Plan: On losartan 50 qd, amlodipine 5 qd, and decrease furosemide 20 qd ECHO: normal LVEF. Would reduce or discontinue furosemide (rising BUN; SOB primarily due to overwhemling lung CA). Code(s): I10 - ESSENTIAL (PRIMARY) HYPERTENSION Qualifiers: Hypertension type: unspecified Qualified Code(s): I10 - Essential (primary ) hypertension (4) Acute on chronic diastolic CHF (congestive heart failure) Assessment/Plan: On losartan 50 qd, amlodipine 5 qd, and decrease furosemide 20 qd Avoid excessive dehydration; consider reducing or discontinuing furosemide( rising BUN; SOB primarily due to extensive lung CA). F/u BUn/Cr, electrolytes, daily wt, Is and os. Code(s): I50.33 - ACUTE ON CHRONIC DIASTOLIC (CONGESTIVE) HEART FAILURE (5) Hypoalbuminemia Code(s): E88.09 - OTH DISORDERS OF PLASMA-PROTEIN METABOLISM, NEC (6) Elevated troponin Assessment/Plan: mildly elevated TNI (0.13); was as high as 0.44 on admission in October. While CAD cannot be excluded (long hx cigarettes; HTN; hyperlipidemia), pt has multiple factors contributing to demand ischemia, including CA disease process with respiratory failure, CHF, tachycardia, F/u serially; given advanced state of cancer, would treat conservatively. Code(s): R74.8 - ABNORMAL LEVELS OF OTHER SERUM ENZYMES (7) Elevated lactic acid level Code(s): R79.89 - OTHER SPECIFIED ABNORMAL FINDINGS OF BLOOD CHEMISTRY Trend lactate
--- NOTE | 2018-11-24 13:25 | PN ---
Progress Note (short form) - Note Progress Note: OOB to wheelchair. Dyspnea feels slightly improved. Some non-productive cough. Intake & Output 11/21/18 11/22/18 11/23/18 11/24/18 23:59 23:59 23:59 23:59 Intake Total 100 Balance 100 Weight 178 lb 14.4 oz Last Vital Signs Temp Pulse Resp BP Pulse Ox 97.4 F L 122 H 24 H 161/82 93 L 11/24/18 10:00 11/24/18 10:00 11/24/18 10:00 11/24/18 10:00 11/24/18 10:00 Active Medications Acetaminophen (Tylenol -) 650 mg PO Q4H PRN PRN Reason: PAIN OR FEVER Albuterol Sulfate (Ventolin 0.083% Nebulizer Soln -) 1 amp NEB RQ4H PRN PRN Reason: SHORT OF BREATH/WHEEZING Last Admin: 11/24/18 04:00 Dose: 1 amp Albuterol/Ipratropium (Duoneb -) 1 amp NEB RQID [facility] Last Admin: 11/24/18 11:32 Dose: 1 amp Amlodipine Besylate (Norvasc -) 5 mg PO DAILY [facility] Last Admin: 11/24/18 10:17 Dose: 5 mg Atovaquone (Mepron -) 1,500 mg PO DAILY@0800 [facility] Last Admin: 11/24/18 10:13 Dose: 1,500 mg Buspirone HCl (Buspar -) 5 mg PO BID [facility] Last Admin: 11/24/18 10:16 Dose: 5 mg Furosemide (Lasix -) 20 mg PO DAILY [facility] Heparin Sodium (Porcine) (Heparin -) 5,000 unit SQ BID [facility] Last Admin: 11/24/18 10:18 Dose: 5,000 unit Leflunomide (Arava -) 20 mg PO DAILY [facility] Last Admin: 11/24/18 10:14 Dose: 20 mg Lorazepam (Ativan -) 0.5 mg PO Q6H PRN PRN Reason: ANXIETY Losartan Potassium (Cozaar -) 50 mg PO DAILY [facility] Last Admin: 11/24/18 10:17 Dose: 50 mg Methylprednisolone Sodium Succinate (Solu-Medrol -) 40 mg IVPUSH Q8H-IV [facility] Last Admin: 11/24/18 10:13 Dose: 40 mg Pantoprazole Sodium (Protonix -) 40 mg PO DAILY [facility] Last Admin: 11/24/18 10:17 Dose: 40 mg Sulfasalazine (Azulfidine En-Tabs -) 1,000 mg PO BID [facility] Last Admin: 11/24/18 10:15 Dose: 1,000 mg Tramadol HCl (Ultram -) 50 mg PO Q8H PRN PRN Reason: PAIN LEVEL 1-5 Zolpidem Tartrate (Ambien -) 5 mg PO [facility] Constitutional: Yes: No Distress, depressed Neck: Yes: Supple Cardiovascular: Yes: Regular Rate and Rhythm Respiratory: Yes: diminished at the bases, few scattered rhonchi Gastrointestinal: Yes: Normal Bowel Sounds, Soft, Abdomen, Obese Edema: Yes Edema: LLE: 2+, RLE: 2+ Labs: IMP ACUTE ON CHRONIC HYPOXEMIC RESPIRATORY FAILURE COPD WITH ACUTE EXACERBATION ADVANCED METASTATIC LUNG CA WITH ELEVATED LACTATE LEVEL HTN CHF HLD RA PLAN IV STEROIDS INHALED BRONCHODILATORS O2 LASIX Dr Sanabria
[2018-11-24 13:43] LABS: BASO % 0.1 % (0-2.0); EOS % 0.1 % (0-4.5); HEMATOCRIT 31.1 % (32.4-45.2); HEMOGLOBIN 10.1 GM/dL (10.7-15.3); LYMPH % 3.7 % (8-40); MCH 30.8 pg (25.7-33.7); MCHC 32.3 g/dl (32.0-36.0); MEAN CELL VOLUME 95.3 fl (80-96); MEAN PLT VOLUME 8.8 fl (7.5-11.1); MONO % 4.9 % (3.8-10.2); NEUT % 91.2 % (42.8-82.8); PLATELET COUNT 157 K/MM3 (134-434); RBC 3.26 M/mm3 (3.60-5.2); RDW 19.3 % (11.6-15.6); WHITE BLOOD COUNT 8.1 K/mm3 (4.0-10.0)
[2018-11-24 14:05] LABS: BILIRUBIN,TOTAL 0.4 mg/dL (0.2-1); BLOOD UREA NITROGEN 35.4 mg/dL (7-18); CALCIUM 9.1 mg/dL (8.5-10.1); CREATININE 0.9 mg/dL (0.55-1.3); POTASSIUM 3.6 mmol/L (3.5-5.1); TOT PROT 5.6 g/dl (6.4-8.2)
--- NOTE | 2018-11-24 15:08 | PN ---
Progress Note, Physician Chief Complaint: awake alert denies cp - Current Medication List Current Medications: Active Medications Acetaminophen (Tylenol -) 650 mg PO Q4H PRN PRN Reason: PAIN OR FEVER Albuterol Sulfate (Ventolin 0.083% Nebulizer Soln -) 1 amp NEB RQ4H PRN PRN Reason: SHORT OF BREATH/WHEEZING Last Admin: 11/24/18 04:00 Dose: 1 amp Albuterol/Ipratropium (Duoneb -) 1 amp NEB RQID [facility] Last Admin: 11/24/18 11:32 Dose: 1 amp Amlodipine Besylate (Norvasc -) 5 mg PO DAILY [facility] Last Admin: 11/24/18 10:17 Dose: 5 mg Atovaquone (Mepron -) 1,500 mg PO DAILY@0800 [facility] Last Admin: 11/24/18 10:13 Dose: 1,500 mg Buspirone HCl (Buspar -) 5 mg PO BID [facility] Last Admin: 11/24/18 10:16 Dose: 5 mg Furosemide (Lasix -) 20 mg PO DAILY [facility] Heparin Sodium (Porcine) (Heparin -) 5,000 unit SQ BID [facility] Last Admin: 11/24/18 10:18 Dose: 5,000 unit Leflunomide (Arava -) 20 mg PO DAILY [facility] Last Admin: 11/24/18 10:14 Dose: 20 mg Lorazepam (Ativan -) 0.5 mg PO Q6H PRN PRN Reason: ANXIETY Losartan Potassium (Cozaar -) 50 mg PO DAILY [facility] Last Admin: 11/24/18 10:17 Dose: 50 mg Methylprednisolone Sodium Succinate (Solu-Medrol -) 40 mg IVPUSH Q8H-IV [facility] Last Admin: 11/24/18 10:13 Dose: 40 mg Pantoprazole Sodium (Protonix -) 40 mg PO DAILY [facility] Last Admin: 11/24/18 10:17 Dose: 40 mg Sulfasalazine (Azulfidine En-Tabs -) 1,000 mg PO BID [facility] Last Admin: 11/24/18 10:15 Dose: 1,000 mg Tramadol HCl (Ultram -) 50 mg PO Q8H PRN PRN Reason: PAIN LEVEL 1-5 Zolpidem Tartrate (Ambien -) 5 mg PO [facility] - Objective Vital Signs: Vital Signs Temperature 97.4 F L 11/24/18 10:00 Pulse Rate 122 H 11/24/18 10:00 Respiratory Rate 24 H 11/24/18 10:00 Blood Pressure 161/82 11/24/18 10:00 O2 Sat by Pulse Oximetry (%) 93 L 11/24/18 10:00 Constitutional: Yes: Mild Distress Cardiovascular: Yes: Regular Rate and Rhythm Respiratory: Yes: Diminished, On Nasal O2 Gastrointestinal: Yes: Soft Genitourinary: Yes: WNL Musculoskeletal: Yes: Muscle Weakness Edema: Yes Edema: LLE: 2+, RLE: 2+ Peripheral Pulses WNL: Yes Neurological: Yes: Pre-Existing Deficit ...Motor Strength: LLE, RLE Psychiatric: Yes: Other Labs: CBC, BMP 11/24/18 13:06 11/24/18 13:06 INR, PTT INR 1.13 (0.83-1.09) H 11/23/18 03:38 Problem List - Problems (1) COPD with acute exacerbation Code(s): J44.1 - CHRONIC OBSTRUCTIVE PULMONARY DISEASE W (ACUTE) EXACERBATION (2) Stage 4 lung cancer Code(s): C34.90 - MALIGNANT NEOPLASM OF UNSP PART OF UNSP BRONCHUS OR LUNG Qualifiers: Laterality: unspecified laterality Qualified Code(s): C34.90 - Malignant neoplasm of unspecified part of unspecified bronchus or lung (3) Acute on chronic diastolic CHF (congestive heart failure) Code(s): I50.33 - ACUTE ON CHRONIC DIASTOLIC (CONGESTIVE) HEART FAILURE (4) Anemia Code(s): D64.9 - ANEMIA, UNSPECIFIED (5) Diabetes Code(s): E11.9 - TYPE 2 DIABETES MELLITUS WITHOUT COMPLICATIONS (6) Anxiety Code(s): F41.9 - ANXIETY DISORDER, UNSPECIFIED (7) Depression Code(s): F32.9 - MAJOR DEPRESSIVE DISORDER, SINGLE EPISODE, UNSPECIFIED Assessment/Plan ONCOLOGY WORKUP IN PROGRESS NEB/02 SUPPORT PULM EVAL APPRECIATED LASIX IV 40MG DAILY FOR EDEMA OOB TO CHAIR WITH PT [facility] RESTARTED TRANSFER TO 7TH FLOOR
--- NOTE | 2018-11-24 15:09 | PN ---
Progress Note, Physician - Current Medication List Current Medications: Active Medications Acetaminophen (Tylenol -) 650 mg PO Q4H PRN PRN Reason: PAIN OR FEVER Albuterol Sulfate (Ventolin 0.083% Nebulizer Soln -) 1 amp NEB RQ4H PRN PRN Reason: SHORT OF BREATH/WHEEZING Last Admin: 11/24/18 04:00 Dose: 1 amp Albuterol/Ipratropium (Duoneb -) 1 amp NEB RQID [facility] Last Admin: 11/24/18 11:32 Dose: 1 amp Amlodipine Besylate (Norvasc -) 5 mg PO DAILY [facility] Last Admin: 11/24/18 10:17 Dose: 5 mg Atovaquone (Mepron -) 1,500 mg PO DAILY@0800 [facility] Last Admin: 11/24/18 10:13 Dose: 1,500 mg Buspirone HCl (Buspar -) 5 mg PO BID [facility] Last Admin: 11/24/18 10:16 Dose: 5 mg Furosemide (Lasix -) 20 mg PO DAILY [facility] Heparin Sodium (Porcine) (Heparin -) 5,000 unit SQ BID [facility] Last Admin: 11/24/18 10:18 Dose: 5,000 unit Leflunomide (Arava -) 20 mg PO DAILY [facility] Last Admin: 11/24/18 10:14 Dose: 20 mg Lorazepam (Ativan -) 0.5 mg PO Q6H PRN PRN Reason: ANXIETY Losartan Potassium (Cozaar -) 50 mg PO DAILY [facility] Last Admin: 11/24/18 10:17 Dose: 50 mg Methylprednisolone Sodium Succinate (Solu-Medrol -) 40 mg IVPUSH Q8H-IV [facility] Last Admin: 11/24/18 10:13 Dose: 40 mg Pantoprazole Sodium (Protonix -) 40 mg PO DAILY [facility] Last Admin: 11/24/18 10:17 Dose: 40 mg Sulfasalazine (Azulfidine En-Tabs -) 1,000 mg PO BID [facility] Last Admin: 11/24/18 10:15 Dose: 1,000 mg Tramadol HCl (Ultram -) 50 mg PO Q8H PRN PRN Reason: PAIN LEVEL 1-5 Zolpidem Tartrate (Ambien -) 5 mg PO [facility] - Objective Vital Signs: Vital Signs Temperature 97.4 F L 11/24/18 10:00 Pulse Rate 122 H 11/24/18 10:00 Respiratory Rate 24 H 11/24/18 10:00 Blood Pressure 161/82 11/24/18 10:00 O2 Sat by Pulse Oximetry (%) 93 L 11/24/18 10:00 Labs: CBC, BMP 11/24/18 13:06 11/24/18 13:06 INR, PTT INR 1.13 (0.83-1.09) H 11/23/18 03:38
[2018-11-24] MEDS ORDERED: FUROSEMIDE 40 MG/4 ML INJECTABLE VIAL IVPUSH SCH (15:30)
[2018-11-24 15:54] LABS: ANISOCYTOSIS 1+; MACROCYTOSIS 0; OVALOCYTE 1+; PLATELET ESTIMATE DECREASED; TEAR DROP CELLS 1+
[2018-11-24] MEDS: ALPRAZolam 1 MG TABLET PO PRN ×2 (21:55→23:11)
[2018-11-24] MEDS ORDERED: ZOLPIDEM TARTRATE 5 MG TABLET PO PRN (22:00)
[2018-11-24] MEDS ORDERED: ZOLPIDEM TARTRATE 5 MG TABLET PO SCH (22:00)
[2018-11-25] MEDS: ALBUTEROL SO4 0.083% IH SOL 2.5 MG/3 ML VIAL.NEB. NEB PRN ×2 (00:32→05:50)
[2018-11-25] MEDS: methylPREDNISolone NA SUCC 40 MG/1 ML VIAL IVPUSH SCH ×3 (02:50→18:12)
[2018-11-25] MEDS: FUROSEMIDE 40 MG/4 ML INJECTABLE VIAL IVPUSH SCH (05:44)
[2018-11-25] MEDS: ALBUTEROL SO4 2.5/IPRATROPIUM 0.5 INH SOL 3 ML VIAL.NEB. NEB SCH ×4 (08:09→20:13)
[2018-11-25] MEDS ORDERED: FUROSEMIDE 20 MG TABLET (FP) PO SCH (10:00)
--- NOTE | 2018-11-25 10:04 | PN ---
Progress Note (short form) - Note Progress Note: Cardiology coverage for Dr. Chico Sierra Chief Complaint: Events noted, notes reviewed, reports persistent dyspnea but improved, denies any chest pain History of Present Illness: Seen and examined on telemetry. Events noted, notes reviewed, reports persistent dyspnea but improved, denies any chest pain - Current Medication List Current Medications: Active Medications Current Medications Acetaminophen (Tylenol -) 650 mg PO Q4H PRN PRN Reason: PAIN OR FEVER Albuterol Sulfate (Ventolin 0.083% Nebulizer Soln -) 1 amp NEB RQ4H PRN PRN Reason: SHORT OF BREATH/WHEEZING Last Admin: 11/25/18 05:50 Dose: 1 amp Albuterol/Ipratropium (Duoneb -) 1 amp NEB RQID [facility] Last Admin: 11/25/18 08:09 Dose: 1 amp Alprazolam (Xanax) 1 mg PO Q12H PRN PRN Reason: ANXIETY Last Admin: 11/24/18 23:11 Dose: 1 mg Amlodipine Besylate (Norvasc -) 5 mg PO DAILY [facility] Last Admin: 11/24/18 10:17 Dose: 5 mg Atovaquone (Mepron -) 1,500 mg PO DAILY@0800 [facility] Last Admin: 11/24/18 10:13 Dose: 1,500 mg Buspirone HCl (Buspar -) 5 mg PO BID [facility] Last Admin: 11/24/18 21:56 Dose: 5 mg Furosemide (Lasix Injection -) 40 mg IVPUSH DAILY@0600 [facility] Last Admin: 11/25/18 05:44 Dose: 40 mg Heparin Sodium (Porcine) (Heparin -) 5,000 unit SQ BID [facility] Last Admin: 11/24/18 23:12 Dose: Not Given Leflunomide (Arava -) 20 mg PO DAILY [facility] Last Admin: 11/24/18 10:14 Dose: 20 mg Losartan Potassium (Cozaar -) 50 mg PO DAILY [facility] Last Admin: 11/24/18 10:17 Dose: 50 mg Methylprednisolone Sodium Succinate (Solu-Medrol -) 40 mg IVPUSH Q8H-IV [facility] Last Admin: 11/25/18 02:50 Dose: 40 mg Pantoprazole Sodium (Protonix -) 40 mg PO DAILY [facility] Last Admin: 11/24/18 10:17 Dose: 40 mg Sulfasalazine (Azulfidine En-Tabs -) 1,000 mg PO BID [facility] Last Admin: 11/24/18 23:10 Dose: 1,000 mg Tramadol HCl (Ultram -) 50 mg PO Q8H PRN PRN Reason: PAIN LEVEL 1-5 Zolpidem Tartrate (Ambien -) 5 mg PO HS PRN PRN Reason: INSOMNIA Last Admin: 11/24/18 23:12 Dose: 5 mg - Review of Systems Constitutional: denies: Chills, Fever Cardiovascular: As noted above Respiratory: denies: Cough or Hemoptysis Gastrointestinal: denies: Abdominal Pain, Constipation, Diarrhea, Melena, Nausea , Rectal Bleeding, Vomiting Musculoskeletal: denies: Back Pain Neurological: denies: Unsteady Gait, Weakness. denies: Dizziness, Headache, Seizure, Syncope - Objective Vital Signs: Last Vital Signs Temp Pulse Resp BP Pulse Ox 97.8 F 102 H 26 H 189/95 H 92 L 11/25/18 05:00 11/25/18 05:00 11/25/18 05:00 11/25/18 05:00 11/24/18 21:00 Intake & Output 11/22/18 11/23/18 11/24/18 11/25/18 23:59 23:59 23:59 23:59 Intake Total 1250 240 Output Total 1400 Balance 1250 -1160 Weight 178 lb 14.4 oz HEENT: Atraumatic Neck: Supple Negative JVD Cardiovascular: S1 S2 Regular Rate and Rhythm Respiratory: diminished Breath Sounds at the Bases with Scattered Rhonchi Gastrointestinal: Soft Benign Normal Bowel Sounds Ext: Edema Labs: CBC, BMP 11/24/18 13:06 11/24/18 13:06 Hepatic Panel Total Bilirubin 0.4 mg/dL (0.2-1) 11/24/18 13:06 AST 26 U/L (15-37) 11/24/18 13:06 ALT 25 U/L (13-61) 11/24/18 13:06 Alkaline Phosphatase 122 U/L (45-117) H 11/24/18 13:06 Albumin 3.0 g/dl (3.4-5.0) L 11/24/18 13:06 INR, PTT INR 1.13 (0.83-1.09) H 11/23/18 03:38 Assessment/Plan 1. Clinical presentation consistent with class II-III NYHA classification LV failure related to diastolic LV dysfunction, resolving 2. CAD with evidence of demand ischemic injury angina pectoris 3. HTN 4. Hyperglycemia 5. Hypercholesterolemia 6. Metastatic lung carcinoma 7. Pre-renal azotemia 8. Anemia PLAN: 1. Add B-Blockers unless contraindicated 2. Continue Cozaar and dose titration 3. Continue Norvasc 4. Continue Lasix with caution considering the above noted pre-renal azotemia 5. Add ASA unless contraindicated 6. Management of hyperglycemia as per the primary team Matthias Powell MD
[2018-11-25] MEDS ORDERED: PT OWN MED DRAWER 7, Y5N ONE ×3 (10:15→20:25)
[2018-11-25] MEDS: ATOVAQUONE 750 MG/5 ML (UNIT-DOSE PACKAGING) PO SCH (11:10)
[2018-11-25] MEDS: PANTOPRAZOLE 40 MG TABLET (FP) PO SCH (11:11)
[2018-11-25] MEDS: amLODIPine BESYLATE 5 MG TABLET (FP) PO SCH (11:11)
[2018-11-25] MEDS: ASPIRIN COATED 81 MG TABLET.EC PO SCH (11:12)
[2018-11-25] MEDS: LOSARTAN POTASSIUM 50 MG TABLET (FP) PO SCH (11:12)
[2018-11-25] MEDS: LEFLUNOMIDE 10 MG TABLET PO SCH (11:13)
[2018-11-25] MEDS: busPIRone HCL 5 MG TABLET PO SCH ×2 (11:14→21:29)
[2018-11-25] MEDS: HEPARIN NA (PORCINE) 5,000 UNITS/ML 1ML VIAL SQ SCH ×2 (11:14→21:33)
--- NOTE | 2018-11-25 11:55 | PN ---
Progress Note, Physician Chief Complaint: AWAKE ALERT NO COMPLAINTS - Current Medication List Current Medications: Active Medications Acetaminophen (Tylenol -) 650 mg PO Q4H PRN PRN Reason: PAIN OR FEVER Albuterol Sulfate (Ventolin 0.083% Nebulizer Soln -) 1 amp NEB RQ4H PRN PRN Reason: SHORT OF BREATH/WHEEZING Last Admin: 11/25/18 05:50 Dose: 1 amp Albuterol/Ipratropium (Duoneb -) 1 amp NEB RQID [facility] Last Admin: 11/25/18 11:52 Dose: 1 amp Alprazolam (Xanax) 1 mg PO Q12H PRN PRN Reason: ANXIETY Last Admin: 11/24/18 23:11 Dose: 1 mg Amlodipine Besylate (Norvasc -) 5 mg PO DAILY [facility] Last Admin: 11/25/18 11:11 Dose: 5 mg Aspirin (Ecotrin -) 81 mg PO DAILY [facility] Last Admin: 11/25/18 11:12 Dose: Not Given Atovaquone (Mepron -) 1,500 mg PO DAILY@0800 [facility] Last Admin: 11/25/18 11:10 Dose: 1,500 mg Buspirone HCl (Buspar -) 5 mg PO BID [facility] Last Admin: 11/25/18 11:14 Dose: 5 mg Furosemide (Lasix Injection -) 40 mg IVPUSH DAILY@0600 [facility] Last Admin: 11/25/18 05:44 Dose: 40 mg Heparin Sodium (Porcine) (Heparin -) 5,000 unit SQ BID [facility] Last Admin: 11/25/18 11:14 Dose: 5,000 unit Leflunomide (Arava -) 20 mg PO DAILY [facility] Last Admin: 11/25/18 11:13 Dose: 20 mg Losartan Potassium (Cozaar -) 100 mg PO DAILY [facility] Methylprednisolone Sodium Succinate (Solu-Medrol -) 40 mg IVPUSH Q8H-IV [facility] Last Admin: 11/25/18 11:14 Dose: 40 mg Metoprolol Succinate (Toprol Xl -) 50 mg PO DAILY [facility] Last Admin: 11/25/18 11:15 Dose: Not Given Pantoprazole Sodium (Protonix -) 40 mg PO DAILY [facility] Last Admin: 11/25/18 11:11 Dose: 40 mg Sulfasalazine (Azulfidine En-Tabs -) 1,000 mg PO BID [facility] Last Admin: 11/25/18 11:13 Dose: 1,000 mg Tramadol HCl (Ultram -) 50 mg PO Q8H PRN PRN Reason: PAIN LEVEL 1-5 Zolpidem Tartrate (Ambien -) 5 mg PO HS PRN PRN Reason: INSOMNIA Last Admin: 11/24/18 23:12 Dose: 5 mg - Objective Vital Signs: Vital Signs Temperature 97.8 F 11/25/18 05:00 Pulse Rate 102 H 11/25/18 05:00 Respiratory Rate 26 H 11/25/18 05:00 Blood Pressure 189/95 H 11/25/18 05:00 O2 Sat by Pulse Oximetry (%) 92 L 11/24/18 21:00 Constitutional: Yes: No Distress Cardiovascular: Yes: Regular Rate and Rhythm Respiratory: Yes: Diminished, On Nasal O2 Genitourinary: Yes: WNL Musculoskeletal: Yes: Muscle Weakness Edema: No Neurological: Yes: WNL Psychiatric: Yes: Other Labs: CBC, BMP 11/24/18 13:06 11/24/18 13:06 INR, PTT INR 1.13 (0.83-1.09) H 11/23/18 03:38 Problem List - Problems (1) COPD with acute exacerbation Code(s): J44.1 - CHRONIC OBSTRUCTIVE PULMONARY DISEASE W (ACUTE) EXACERBATION (2) Stage 4 lung cancer Code(s): C34.90 - MALIGNANT NEOPLASM OF UNSP PART OF UNSP BRONCHUS OR LUNG Qualifiers: Laterality: unspecified laterality Qualified Code(s): C34.90 - Malignant neoplasm of unspecified part of unspecified bronchus or lung (3) Acute on chronic diastolic CHF (congestive heart failure) Code(s): I50.33 - ACUTE ON CHRONIC DIASTOLIC (CONGESTIVE) HEART FAILURE (4) Anemia Code(s): D64.9 - ANEMIA, UNSPECIFIED (5) Diabetes Code(s): E11.9 - TYPE 2 DIABETES MELLITUS WITHOUT COMPLICATIONS (6) Anxiety Code(s): F41.9 - ANXIETY DISORDER, UNSPECIFIED (7) Depression Code(s): F32.9 - MAJOR DEPRESSIVE DISORDER, SINGLE EPISODE, UNSPECIFIED Assessment/Plan ONCOLOGY WORKUP IN PROGRESS NEBS/02 SUPPORT PULM EVAL APPRECIATED LASIX IV 40MG DAILY FOR EDEMA OOB TO CHAIR WITH PT [facility] RESTARTED TRANSFER TO 7TH FLOOR
--- NOTE | 2018-11-25 12:40 | PN ---
Progress Note (short form) - Note Progress Note: [place]. Depressed about her overall medical condition. Dyspnea feels slightly improved. Some non-productive cough. No hemoptysis. Intake & Output 11/22/18 11/23/18 11/24/18 11/25/18 23:59 23:59 23:59 23:59 Intake Total 1250 990 Output Total 2900 Balance 1250 -1910 Weight 178 lb 14.4 oz Last Vital Signs Temp Pulse Resp BP Pulse Ox 97.8 F 102 H 26 H 189/95 H 92 L 11/25/18 05:00 11/25/18 05:00 11/25/18 05:00 11/25/18 05:00 11/24/18 21:00 Active Medications Acetaminophen (Tylenol -) 650 mg PO Q4H PRN PRN Reason: PAIN OR FEVER Albuterol Sulfate (Ventolin 0.083% Nebulizer Soln -) 1 amp NEB RQ4H PRN PRN Reason: SHORT OF BREATH/WHEEZING Last Admin: 11/25/18 05:50 Dose: 1 amp Albuterol/Ipratropium (Duoneb -) 1 amp NEB RQID [facility] Last Admin: 11/25/18 11:52 Dose: 1 amp Alprazolam (Xanax) 1 mg PO Q12H PRN PRN Reason: ANXIETY Last Admin: 11/24/18 23:11 Dose: 1 mg Amlodipine Besylate (Norvasc -) 5 mg PO DAILY [facility] Last Admin: 11/25/18 11:11 Dose: 5 mg Aspirin (Ecotrin -) 81 mg PO DAILY [facility] Last Admin: 11/25/18 11:12 Dose: Not Given Atovaquone (Mepron -) 1,500 mg PO DAILY@0800 [facility] Last Admin: 11/25/18 11:10 Dose: 1,500 mg Buspirone HCl (Buspar -) 5 mg PO BID [facility] Last Admin: 11/25/18 11:14 Dose: 5 mg Furosemide (Lasix Injection -) 40 mg IVPUSH DAILY@0600 [facility] Last Admin: 11/25/18 05:44 Dose: 40 mg Heparin Sodium (Porcine) (Heparin -) 5,000 unit SQ BID [facility] Last Admin: 11/25/18 11:14 Dose: 5,000 unit Leflunomide (Arava -) 20 mg PO DAILY [facility] Last Admin: 11/25/18 11:13 Dose: 20 mg Losartan Potassium (Cozaar -) 100 mg PO DAILY [facility] Methylprednisolone Sodium Succinate (Solu-Medrol -) 40 mg IVPUSH Q8H-IV [facility] Last Admin: 11/25/18 11:14 Dose: 40 mg Metoprolol Succinate (Toprol Xl -) 50 mg PO DAILY [facility] Last Admin: 11/25/18 11:15 Dose: Not Given Pantoprazole Sodium (Protonix -) 40 mg PO DAILY [facility] Last Admin: 11/25/18 11:11 Dose: 40 mg Sulfasalazine (Azulfidine En-Tabs -) 1,000 mg PO BID [facility] Last Admin: 11/25/18 11:13 Dose: 1,000 mg Tramadol HCl (Ultram -) 50 mg PO Q8H PRN PRN Reason: PAIN LEVEL 1-5 Zolpidem Tartrate (Ambien -) 5 mg PO HS PRN PRN Reason: INSOMNIA Last Admin: 11/24/18 23:12 Dose: 5 mg Constitutional: Yes: No Distress, depressed Neck: Yes: Supple Cardiovascular: Yes: Regular Rate and Rhythm Respiratory: Yes: diminished at the bases, few scattered rhonchi Gastrointestinal: Yes: Normal Bowel Sounds, Soft, Abdomen, Obese Edema: Yes Edema: LLE: 2+, RLE: 2+ Labs: Laboratory Results - last 24 hr 11/24/18 11/24/18 11/24/18 13:06 13:06 13:09 WBC 8.1 RBC 3.26 L Hgb 10.1 L Hct 31.1 L MCV 95.3 MCH 30.8 MCHC 32.3 RDW 19.3 H Plt Count 157 MPV 8.8 Absolute Neuts (auto) 7.4 Neutrophils % 91.2 H Neutrophils % (Manual) 77.0 Band Neutrophils % 13.0 Lymphocytes % 3.7 L D Lymphocytes % (Manual) 5.0 L D Monocytes % 4.9 Monocytes % (Manual) 2 L Eosinophils % 0.1 D Eosinophils % (Manual) 0.0 Basophils % 0.1 Basophils % (Manual) 0.0 Myelocytes % (Man) 0 Promyelocytes % (Man) 0 Blast Cells % (Manual) 0 Nucleated RBC % 1 H Metamyelocytes 2 D Hypochromia 0 Platelet Estimate Decreased Polychromasia 2+ Poikilocytosis 1+ Anisocytosis 1+ Microcytosis 1+ Macrocytosis 0 Spherocytes 1+ Tear Drop Cells 1+ Ovalocytes 1+ Girma Cells 1+ Sodium 139 Potassium 3.6 Chloride 108 H Carbon Dioxide 26 Anion Gap 6 L BUN 35.4 H Creatinine 0.9 Est GFR (CKD-EPI)AfAm 74.04 Est GFR (CKD-EPI)NonAf 63.88 POC Glucometer Random Glucose 262 H Lactic Acid 2.6 H* Calcium 9.1 Total Bilirubin 0.4 AST 26 ALT 25 Alkaline Phosphatase 122 H Total Protein 5.6 L Albumin 3.0 L 11/25/18 06:55 WBC RBC Hgb Hct MCV MCH MCHC RDW Plt Count MPV Absolute Neuts (auto) Neutrophils % Neutrophils % (Manual) Band Neutrophils % Lymphocytes % Lymphocytes % (Manual) Monocytes % Monocytes % (Manual) Eosinophils % Eosinophils % (Manual) Basophils % Basophils % (Manual) Myelocytes % (Man) Promyelocytes % (Man) Blast Cells % (Manual) Nucleated RBC % Metamyelocytes Hypochromia Platelet Estimate Polychromasia Poikilocytosis Anisocytosis Microcytosis Macrocytosis Spherocytes Tear Drop Cells Ovalocytes [place] Cells Sodium Potassium Chloride Carbon Dioxide Anion Gap BUN Creatinine Est GFR (CKD-EPI)AfAm Est GFR (CKD-EPI)NonAf POC Glucometer 334 Random Glucose Lactic Acid Calcium Total Bilirubin AST ALT Alkaline Phosphatase Total Protein Albumin IMP ACUTE ON CHRONIC HYPOXEMIC RESPIRATORY FAILURE COPD WITH ACUTE EXACERBATION ADVANCED METASTATIC LUNG CA WITH ELEVATED LACTATE LEVEL HTN CHF HLD RA PLAN TRIAL OF LEXAPRO IV STEROIDS INHALED BRONCHODILATORS O2 LASIX Dr Sanabria
[2018-11-25 13:06] LABS: URINE APPEARANCE CLEAR; URINE BILIRUBIN NEGATIVE (NEGATIVE); URINE COLOR YELLOW; URINE GLUCOSE (UA) 3+ (NEGATIVE); URINE KETONE NEGATIVE (NEGATIVE); URINE LEUK ESTERASE NEGATIVE (NEGATIVE); URINE NITRITE NEGATIVE (NEGATIVE); URINE PROTEIN NEGATIVE (NEGATIVE); URINE UROBILINOGEN 0.2 mg/dL (0.2-1.0)
[2018-11-25] MEDS: ESCITALOPRAM OXALATE 10 MG TABLET (FP) PO SCH (15:00)
[2018-11-26] MEDS: ALPRAZolam 1 MG TABLET PO PRN (00:52)
[2018-11-26] MEDS: ZOLPIDEM TARTRATE 5 MG TABLET PO PRN (00:52)
[2018-11-26] MEDS: methylPREDNISolone NA SUCC 40 MG/1 ML VIAL IVPUSH SCH ×3 (01:30→17:39)
[2018-11-26] MEDS: FUROSEMIDE 40 MG/4 ML INJECTABLE VIAL IVPUSH SCH (06:13)
[2018-11-26] MEDS: ALBUTEROL SO4 2.5/IPRATROPIUM 0.5 INH SOL 3 ML VIAL.NEB. NEB SCH ×4 (07:40→20:30)
[2018-11-26] MEDS ORDERED: PT OWN MED DRAWER 7, Y5N ONE ×3 (09:25→22:26)
[2018-11-26] MEDS: LEFLUNOMIDE 10 MG TABLET PO SCH (09:29)
[2018-11-26] MEDS: busPIRone HCL 5 MG TABLET PO SCH ×2 (09:29→23:16)
[2018-11-26] MEDS: HEPARIN NA (PORCINE) 5,000 UNITS/ML 1ML VIAL SQ SCH ×2 (09:30→23:15)
[2018-11-26] MEDS: LOSARTAN POTASSIUM 50 MG TABLET (FP) PO SCH (09:30)
[2018-11-26] MEDS: amLODIPine BESYLATE 5 MG TABLET (FP) PO SCH (09:30)
[2018-11-26] MEDS: ESCITALOPRAM OXALATE 10 MG TABLET (FP) PO SCH ×2 (09:30→17:23)
[2018-11-26] MEDS: PANTOPRAZOLE 40 MG TABLET (FP) PO SCH (09:30)
[2018-11-26] MEDS: ASPIRIN COATED 81 MG TABLET.EC PO SCH ×2 (09:30→17:22)
--- NOTE | 2018-11-26 09:33 | PN ---
Progress Note, Physician History of Present Illness: Ms. Fulton is a 73 year old black woman with a past medical history of stage 4 lung cancer (s/p right upper lobe removal, currently on immunotherapy), COPD ( 5L at home), diastolic CHF ([facility] 10/2018: normal LVEF; abnormal diastrolic compliance;small pericardial effusion), ,moderate pulmonary HTN, here today for evaluation of shortness of breath and bilateral LE edema that worsened over the past 48 hours. She notes acute on chronic SOB tonight despite nebulizer use at her [facility]. - Current Medication List Current Medications: Active Medications Acetaminophen (Tylenol -) 650 mg PO Q4H PRN PRN Reason: PAIN OR FEVER Albuterol Sulfate (Ventolin 0.083% Nebulizer Soln -) 1 amp NEB RQ4H PRN PRN Reason: SHORT OF BREATH/WHEEZING Last Admin: 11/25/18 05:50 Dose: 1 amp Albuterol/Ipratropium (Duoneb -) 1 amp NEB RQID [facility] Last Admin: 11/26/18 07:40 Dose: 1 amp Alprazolam (Xanax) 1 mg PO Q12H PRN PRN Reason: ANXIETY Last Admin: 11/26/18 00:52 Dose: 1 mg Amlodipine Besylate (Norvasc -) 5 mg PO DAILY [facility] Last Admin: 11/26/18 09:30 Dose: 5 mg Aspirin (Ecotrin -) 81 mg PO DAILY [facility] Last Admin: 11/26/18 09:30 Dose: 81 mg Atovaquone (Mepron -) 1,500 mg PO DAILY@0800 [facility] Last Admin: 11/25/18 11:10 Dose: 1,500 mg Buspirone HCl (Buspar -) 5 mg PO BID [facility] Last Admin: 11/26/18 09:29 Dose: 5 mg Escitalopram Oxalate (Lexapro -) 10 mg PO DAILY [facility] Last Admin: 11/26/18 09:30 Dose: 10 mg Furosemide (Lasix Injection -) 40 mg IVPUSH DAILY@0600 [facility] Last Admin: 11/26/18 06:13 Dose: 40 mg Heparin Sodium (Porcine) (Heparin -) 5,000 unit SQ BID [facility] Last Admin: 11/26/18 09:30 Dose: 5,000 unit Leflunomide (Arava -) 20 mg PO DAILY [facility] Last Admin: 11/26/18 09:29 Dose: 20 mg Losartan Potassium (Cozaar -) 100 mg PO DAILY [facility] Last Admin: 11/26/18 09:30 Dose: 100 mg Methylprednisolone Sodium Succinate (Solu-Medrol -) 40 mg IVPUSH Q8H-IV [facility] Last Admin: 11/26/18 09:31 Dose: 40 mg Metoprolol Succinate (Toprol Xl -) 50 mg PO DAILY [facility] Last Admin: 11/26/18 09:30 Dose: 50 mg Pantoprazole Sodium (Protonix -) 40 mg PO DAILY [facility] Last Admin: 11/26/18 09:30 Dose: 40 mg Sulfasalazine (Azulfidine En-Tabs -) 1,000 mg PO BID [facility] Last Admin: 11/26/18 09:31 Dose: 1,000 mg Tramadol HCl (Ultram -) 50 mg PO Q8H PRN PRN Reason: PAIN LEVEL 1-5 Zolpidem Tartrate (Ambien -) 5 mg PO HS PRN PRN Reason: INSOMNIA Last Admin: 11/26/18 00:52 Dose: 5 mg - Objective Vital Signs: Vital Signs Temperature 98.5 F 11/26/18 06:00 Pulse Rate 114 H 11/26/18 06:00 Respiratory Rate 20 11/26/18 08:50 Blood Pressure 156/96 11/26/18 06:00 O2 Sat by Pulse Oximetry (%) 96 11/26/18 08:50 Eyes: Yes: WNL, Conjunctiva Clear, EOM Intact HENT: Yes: WNL, Atraumatic, Normocephalic Neck: Yes: WNL, Supple, Trachea Midline Cardiovascular: Yes: WNL, Regular Rate and Rhythm Respiratory: Yes: Diminished Gastrointestinal: Yes: WNL, Normal Bowel Sounds Genitourinary: Yes: WNL Musculoskeletal: Yes: WNL Extremities: Yes: WNL Edema: Yes Edema: LLE: 2+, RLE: 2+ Integumentary: Yes: WNL Neurological: Yes: WNL, Alert, Oriented ...Motor Strength: WNL Psychiatric: Yes: WNL Labs: CBC, BMP 11/24/18 13:06 11/24/18 13:06 INR, PTT INR 1.13 (0.83-1.09) H 11/23/18 03:38 Assessment/Plan 1. Clinical presentation consistent with class II-III NYHA classification LV failure related to diastolic LV dysfunction, resolving 2. CAD with evidence of demand ischemic injury angina pectoris 3. HTN 4. Hyperglycemia 5. Hypercholesterolemia 6. Metastatic lung carcinoma 7. Pre-renal azotemia 8. Anemia PLAN: Continue Cozaar and dose titration Continue Norvasc Continue Lasix with caution considering the above noted pre-renal azotemia Management of hyperglycemia as per the primary team
--- NOTE | 2018-11-26 10:42 | CONS ---
PULMONARY CONSULTATION DATE OF CONSULTATION: 11/23/2018 REFERRING PHYSICIAN: Lior Toro MD HISTORY: Patient is a 73-year-old black female known to me from previous hospitalization with past medical history of stage 4 lung cancer, status post partial lobectomy, multiple pulmonary nodules, failed chemotherapy, congestive heart failure, hypertension, COPD on O2, diabetes, rheumatoid arthritis, hypertension, hyperlipidemia. Resident of [facility] transferred to [facility] with increasing shortness of breath. Patient states the past few days prior to admission started developing increasing shortness of breath and dyspnea on exertion. In spite of taking her inhaled bronchodilators, her symptoms worsened at which time she presented to the emergency room. She denies any chest pain. Does complain of chest tightness, also a cough, which is nonproductive. Denies any fevers, chills, weight loss, or night sweats. Denies hemoptysis. On admission , she used inhaled bronchodilators with clinical improvement. PAST MEDICAL HISTORY: Again includes advanced lung cancer stage 4 non small cell, status post partial lobectomy, history of CHF, hypertension, hyperlipidemia, rheumatoid, diabetes, COPD. REVIEW OF SYSTEMS: Positive dyspnea, positive orthopnea. No chest pain. Positive chest tightness. Positive cough. No fever, no chills, no hemoptysis, no abdominal pain. Positive lower extremity edema. CURRENT MEDICATIONS: Include Lasix, Ambien, Cozaar, Protonix, Ultram, Ecotrin, Lasix, Ativan, Norvasc, Toprol, DuoNeb, albuterol, Ambien, Cozaar, Tylenol, and Solu-Medrol. PHYSICAL EXAMINATION: General: Patient is a well-developed, well-nourished female awake, alert mildly dyspneic but in no acute distress. Vital Signs: She is currently afebrile. Heart rate is 128, blood pressure 183/ 98, respiratory rate is 28, O2 saturation is 92% on 100% O2. HEENT: Normocephalic, atraumatic. Neck: Supple. Heart: Tachycardic. S1, S2. Chest: Diminished breath sounds bilaterally with scattered bilateral wheezes. Abdomen: Soft. Bowel sounds are positive. Extremities: Bilateral lower extremity edema. LABORATORIES: WBC 8.7, hemoglobin 10.2, hematocrit 32.8 with a platelet count of 176,000. Venous blood gas: PH of 7.26, PCO2 of 56, PO2 of 49, bicarbonate of 24, and a saturation of 34. Lactate level 4.7. Chest x-ray: No acute infiltrates or effusions. Multiple pulmonary masses consistent with extensive metastatic lung disease. IMPRESSION: Acute on chronic hypoxemic, hypercapnic respiratory failure secondary to: 1. Advanced chronic obstructive pulmonary disease with acute exacerbation. 2. Advanced metastatic lung cancer. 3. Elevated lactate level. 4. Hypertension. 5. Congestive heart failure,. 6. Hyperlipidemia. 7. Rheumatoid arthritis. PLAN: IV steroids. Inhaled bronchodilators. Supplemental O2. Lasix. Trend lactate. Follow up chest x-rays. Shiva [id number] MTDD
--- NOTE | 2018-11-26 11:25 | PN ---
Progress Note, Physician History of Present Illness: pulmonary alert,feeling better,less dyspneic - Current Medication List Current Medications: Active Medications Acetaminophen (Tylenol -) 650 mg PO Q4H PRN PRN Reason: PAIN OR FEVER Albuterol Sulfate (Ventolin 0.083% Nebulizer Soln -) 1 amp NEB RQ4H PRN PRN Reason: SHORT OF BREATH/WHEEZING Last Admin: 11/25/18 05:50 Dose: 1 amp Albuterol/Ipratropium (Duoneb -) 1 amp NEB RQID [facility] Last Admin: 11/26/18 07:40 Dose: 1 amp Alprazolam (Xanax) 1 mg PO Q12H PRN PRN Reason: ANXIETY Last Admin: 11/26/18 00:52 Dose: 1 mg Amlodipine Besylate (Norvasc -) 5 mg PO DAILY [facility] Last Admin: 11/26/18 09:30 Dose: 5 mg Aspirin (Ecotrin -) 81 mg PO DAILY [facility] Last Admin: 11/26/18 09:30 Dose: 81 mg Atovaquone (Mepron -) 1,500 mg PO DAILY@0800 [facility] Last Admin: 11/25/18 11:10 Dose: 1,500 mg Buspirone HCl (Buspar -) 5 mg PO BID [facility] Last Admin: 11/26/18 09:29 Dose: 5 mg Escitalopram Oxalate (Lexapro -) 10 mg PO DAILY [facility] Last Admin: 11/26/18 09:30 Dose: 10 mg Furosemide (Lasix Injection -) 40 mg IVPUSH DAILY@0600 [facility] Last Admin: 11/26/18 06:13 Dose: 40 mg Heparin Sodium (Porcine) (Heparin -) 5,000 unit SQ BID [facility] Last Admin: 11/26/18 09:30 Dose: 5,000 unit Leflunomide (Arava -) 20 mg PO DAILY [facility] Last Admin: 11/26/18 09:29 Dose: 20 mg Losartan Potassium (Cozaar -) 100 mg PO DAILY [facility] Last Admin: 11/26/18 09:30 Dose: 100 mg Methylprednisolone Sodium Succinate (Solu-Medrol -) 40 mg IVPUSH Q8H-IV [facility] Last Admin: 11/26/18 09:31 Dose: 40 mg Metoprolol Succinate (Toprol Xl -) 50 mg PO DAILY [facility] Last Admin: 11/26/18 09:30 Dose: 50 mg Pantoprazole Sodium (Protonix -) 40 mg PO DAILY [facility] Last Admin: 11/26/18 09:30 Dose: 40 mg Sulfasalazine (Azulfidine En-Tabs -) 1,000 mg PO BID [facility] Last Admin: 11/26/18 09:31 Dose: 1,000 mg Tramadol HCl (Ultram -) 50 mg PO Q8H PRN PRN Reason: PAIN LEVEL 1-5 Zolpidem Tartrate (Ambien -) 5 mg PO HS PRN PRN Reason: INSOMNIA Last Admin: 11/26/18 00:52 Dose: 5 mg - Objective Vital Signs: Vital Signs Temperature 97.5 F L 11/26/18 10:00 Pulse Rate 103 H 11/26/18 10:00 Respiratory Rate 20 11/26/18 10:00 Blood Pressure 161/99 11/26/18 10:00 O2 Sat by Pulse Oximetry (%) 96 11/26/18 08:50 Constitutional: Yes: Well Nourished, Calm Eyes: Yes: WNL HENT: Yes: WNL Neck: Yes: WNL Cardiovascular: Yes: Regular Rate and Rhythm, S1, S2 Respiratory: Yes: Diminished, Rhonchi (few rhonchi) Gastrointestinal: Yes: Normal Bowel Sounds, Soft Extremities: Yes: WNL Edema: Yes Labs: CBC, BMP 11/24/18 13:06 11/24/18 13:06 INR, PTT INR 1.13 (0.83-1.09) H 11/23/18 03:38 Problem List - Problems (1) COPD exacerbation Code(s): J44.1 - CHRONIC OBSTRUCTIVE PULMONARY DISEASE W (ACUTE) EXACERBATION (2) COPD with acute exacerbation Code(s): J44.1 - CHRONIC OBSTRUCTIVE PULMONARY DISEASE W (ACUTE) EXACERBATION (3) Elevated lactic acid level Code(s): R79.89 - OTHER SPECIFIED ABNORMAL FINDINGS OF BLOOD CHEMISTRY (4) HLD (hyperlipidemia) Code(s): E78.5 - HYPERLIPIDEMIA, UNSPECIFIED (5) Stage 4 lung cancer Code(s): C34.90 - MALIGNANT NEOPLASM OF UNSP PART OF UNSP BRONCHUS OR LUNG Qualifiers: Laterality: unspecified laterality Qualified Code(s): C34.90 - Malignant neoplasm of unspecified part of unspecified bronchus or lung (6) HTN (hypertension) Code(s): I10 - ESSENTIAL (PRIMARY) HYPERTENSION Qualifiers: Hypertension type: unspecified Qualified Code(s): I10 - Essential (primary ) hypertension (7) Acute on chronic respiratory failure with hypoxemia Code(s): J96.21 - ACUTE AND CHRONIC RESPIRATORY FAILURE WITH HYPOXIA (8) Diabetes Code(s): E11.9 - TYPE 2 DIABETES MELLITUS WITHOUT COMPLICATIONS Qualifiers: Diabetes mellitus complication status: without complication (9) GERD (gastroesophageal reflux disease) Code(s): K21.9 - GASTRO-ESOPHAGEAL REFLUX DISEASE WITHOUT ESOPHAGITIS (10) Lactic acid acidosis Code(s): E87.2 - ACIDOSIS (11) Metastatic lung cancer (metastasis from lung to other site) Code(s): C34.90 - MALIGNANT NEOPLASM OF UNSP PART OF UNSP BRONCHUS OR LUNG (12) Rheumatoid arthritis Code(s): M06.9 - RHEUMATOID ARTHRITIS, UNSPECIFIED (13) Shortness of breath Code(s): R06.02 - SHORTNESS OF BREATH Assessment/Plan IMP ACUTE ON CHRONIC HYPOXEMIC/HYPERCAPNEIC RESPIRATORY FAILURE improving COPD WITH ACUTE EXACERBATION improving ADVANCED METASTATIC LUNG CA ELEVATED LACTATE LEVEL HTN CHF HLD RA PLAN IV STEROIDS same dose INHALED BRONCHODILATORS O2 LASIX TREND LACTATE F/U CHEST X-RAYS DR KERR Problem List - Problems (1) COPD exacerbation Code(s): J44.1 - CHRONIC OBSTRUCTIVE PULMONARY DISEASE W (ACUTE) EXACERBATION (2) COPD with acute exacerbation Code(s): J44.1 - CHRONIC OBSTRUCTIVE PULMONARY DISEASE W (ACUTE) EXACERBATION (3) Elevated lactic acid level Code(s): R79.89 - OTHER SPECIFIED ABNORMAL FINDINGS OF BLOOD CHEMISTRY (4) HLD (hyperlipidemia) Code(s): E78.5 - HYPERLIPIDEMIA, UNSPECIFIED (5) Stage 4 lung cancer Code(s): C34.90 - MALIGNANT NEOPLASM OF UNSP PART OF UNSP BRONCHUS OR LUNG Qualifiers: Laterality: unspecified laterality Qualified Code(s): C34.90 - Malignant neoplasm of unspecified part of unspecified bronchus or lung (6) HTN (hypertension) Code(s): I10 - ESSENTIAL (PRIMARY) HYPERTENSION Qualifiers: Hypertension type: unspecified Qualified Code(s): I10 - Essential (primary ) hypertension (7) Acute on chronic respiratory failure with hypoxemia Code(s): J96.21 - ACUTE AND CHRONIC RESPIRATORY FAILURE WITH HYPOXIA (8) Diabetes Code(s): E11.9 - TYPE 2 DIABETES MELLITUS WITHOUT COMPLICATIONS Qualifiers: Diabetes mellitus complication status: without complication (9) GERD (gastroesophageal reflux disease) Code(s): K21.9 - GASTRO-ESOPHAGEAL REFLUX DISEASE WITHOUT ESOPHAGITIS (10) Lactic acid acidosis Code(s): E87.2 - ACIDOSIS (11) Metastatic lung cancer (metastasis from lung to other site) Code(s): C34.90 - MALIGNANT NEOPLASM OF UNSP PART OF UNSP BRONCHUS OR LUNG (12) Rheumatoid arthritis Code(s): M06.9 - RHEUMATOID ARTHRITIS, UNSPECIFIED (13) Shortness of breath Code(s): R06.02 - SHORTNESS OF BREATH
[2018-11-26] MEDS: ATOVAQUONE 750 MG/5 ML (UNIT-DOSE PACKAGING) PO SCH (12:15)
--- NOTE | 2018-11-26 13:08 | PN ---
Progress Note, Physician Chief Complaint: patient seen and examined breathing better today - Current Medication List Current Medications: Active Medications Acetaminophen (Tylenol -) 650 mg PO Q4H PRN PRN Reason: PAIN OR FEVER Albuterol Sulfate (Ventolin 0.083% Nebulizer Soln -) 1 amp NEB RQ4H PRN PRN Reason: SHORT OF BREATH/WHEEZING Last Admin: 11/25/18 05:50 Dose: 1 amp Albuterol/Ipratropium (Duoneb -) 1 amp NEB RQID [facility] Last Admin: 11/26/18 07:40 Dose: 1 amp Alprazolam (Xanax) 1 mg PO Q12H PRN PRN Reason: ANXIETY Last Admin: 11/26/18 00:52 Dose: 1 mg Amlodipine Besylate (Norvasc -) 5 mg PO DAILY [facility] Last Admin: 11/26/18 09:30 Dose: 5 mg Aspirin (Ecotrin -) 81 mg PO DAILY [facility] Last Admin: 11/26/18 09:30 Dose: 81 mg Atovaquone (Mepron -) 1,500 mg PO DAILY@0800 [facility] Last Admin: 11/26/18 12:15 Dose: 1,500 mg Buspirone HCl (Buspar -) 5 mg PO BID [facility] Last Admin: 11/26/18 09:29 Dose: 5 mg Escitalopram Oxalate (Lexapro -) 10 mg PO DAILY [facility] Last Admin: 11/26/18 09:30 Dose: 10 mg Furosemide (Lasix Injection -) 40 mg IVPUSH DAILY@0600 [facility] Last Admin: 11/26/18 06:13 Dose: 40 mg Heparin Sodium (Porcine) (Heparin -) 5,000 unit SQ BID [facility] Last Admin: 11/26/18 09:30 Dose: 5,000 unit Leflunomide (Arava -) 20 mg PO DAILY [facility] Last Admin: 11/26/18 09:29 Dose: 20 mg Losartan Potassium (Cozaar -) 100 mg PO DAILY [facility] Last Admin: 11/26/18 09:30 Dose: 100 mg Methylprednisolone Sodium Succinate (Solu-Medrol -) 40 mg IVPUSH Q8H-IV [facility] Last Admin: 11/26/18 09:31 Dose: 40 mg Metoprolol Succinate (Toprol Xl -) 50 mg PO DAILY [facility] Last Admin: 11/26/18 09:30 Dose: 50 mg Pantoprazole Sodium (Protonix -) 40 mg PO DAILY [facility] Last Admin: 11/26/18 09:30 Dose: 40 mg Sulfasalazine (Azulfidine En-Tabs -) 1,000 mg PO BID [facility] Last Admin: 11/26/18 09:31 Dose: 1,000 mg Tramadol HCl (Ultram -) 50 mg PO Q8H PRN PRN Reason: PAIN LEVEL 1-5 Zolpidem Tartrate (Ambien -) 5 mg PO HS PRN PRN Reason: INSOMNIA Last Admin: 11/26/18 00:52 Dose: 5 mg - Objective Vital Signs: Vital Signs Temperature 97.5 F L 11/26/18 10:00 Pulse Rate 103 H 11/26/18 10:00 Respiratory Rate 20 11/26/18 10:00 Blood Pressure 161/99 11/26/18 10:00 O2 Sat by Pulse Oximetry (%) 96 11/26/18 08:50 Constitutional: Yes: Calm Cardiovascular: Yes: Regular Rate and Rhythm, S1, S2 Respiratory: Yes: Diminished Gastrointestinal: Yes: Normal Bowel Sounds, Soft Edema: Yes (slightly better) Neurological: Yes: Alert, Oriented Labs: CBC, BMP 11/24/18 13:06 11/24/18 13:06 INR, PTT INR 1.13 (0.83-1.09) H 11/23/18 03:38 Problem List - Problems (1) SOB (shortness of breath) Assessment/Plan: iv lasix cxr noted with extensive metasatic lung disease solumedrol nebulizers pulm/oncology eval Dnr DNI Code(s): R06.02 - SHORTNESS OF BREATH (2) Stage 4 lung cancer Assessment/Plan: heme eval oxygen dvt ppx 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
--- NOTE | 2018-11-26 20:41 | PN ---
Progress Note (short form) - Note Progress Note: patient seen and examined short of breath afvss Cor: RSR, No murmurs, No gallops Lungs: Clear to P&A Abd: Soft, Normal bowel sounds, No organomegaly Ext:No significant edema labs/meds reviewed a/p SCC of lung COPD CHF Rheumatoid Prior surgery/carbo/taxol adjuvant therapy, carbo/ taxol/ rt , gemzar and nivolumab q month supportive palliative care dnr/dni
[2018-11-27] MEDS: ZOLPIDEM TARTRATE 5 MG TABLET PO PRN ×2 (00:01→23:58)
[2018-11-27] MEDS: ALPRAZolam 1 MG TABLET PO PRN ×3 (00:01→23:58)
[2018-11-27] MEDS: methylPREDNISolone NA SUCC 40 MG/1 ML VIAL IVPUSH SCH ×3 (01:37→21:50)
[2018-11-27] MEDS: ALBUTEROL SO4 0.083% IH SOL 2.5 MG/3 ML VIAL.NEB. NEB PRN (03:35)
[2018-11-27] MEDS: FUROSEMIDE 40 MG/4 ML INJECTABLE VIAL IVPUSH SCH (06:06)
[2018-11-27] MEDS: ALBUTEROL SO4 2.5/IPRATROPIUM 0.5 INH SOL 3 ML VIAL.NEB. NEB SCH ×4 (07:29→19:45)
[2018-11-27] MEDS ORDERED: PT OWN MED DRAWER 7, Y5N ONE ×3 (08:41→21:48)
[2018-11-27] MEDS: ATOVAQUONE 750 MG/5 ML (UNIT-DOSE PACKAGING) PO SCH (09:32)
[2018-11-27] MEDS: LEFLUNOMIDE 10 MG TABLET PO SCH (09:32)
[2018-11-27] MEDS: HEPARIN NA (PORCINE) 5,000 UNITS/ML 1ML VIAL SQ SCH ×2 (09:34→21:50)
[2018-11-27] MEDS: ASPIRIN COATED 81 MG TABLET.EC PO SCH ×2 (09:34→11:01)
[2018-11-27] MEDS: amLODIPine BESYLATE 5 MG TABLET (FP) PO SCH (09:34)
[2018-11-27] MEDS: busPIRone HCL 5 MG TABLET PO SCH ×2 (09:35→21:49)
[2018-11-27] MEDS: LOSARTAN POTASSIUM 50 MG TABLET (FP) PO SCH (09:36)
[2018-11-27] MEDS: ESCITALOPRAM OXALATE 10 MG TABLET (FP) PO SCH (09:36)
[2018-11-27] MEDS: PANTOPRAZOLE 40 MG TABLET (FP) PO SCH (09:36)
--- NOTE | 2018-11-27 11:30 | PN ---
Progress Note (short form) - Note Progress Note: Appears depressed. Dyspnea feels slightly improved. Some non-productive cough. No hemoptysis. Intake & Output 11/24/18 11/25/18 11/26/18 11/27/18 23:59 23:59 23:59 23:59 Intake Total 1250 1110 870 480 Output Total 4200 600 Balance 1250 -3090 870 -120 Weight 178 lb 151 lb Last Vital Signs Temp Pulse Resp BP Pulse Ox 98.2 F 109 H 20 151/90 97 11/27/18 10:00 11/27/18 10:00 11/27/18 10:00 11/27/18 10:00 11/27/18 09:00 Active Medications Acetaminophen (Tylenol -) 650 mg PO Q4H PRN PRN Reason: PAIN OR FEVER Albuterol Sulfate (Ventolin 0.083% Nebulizer Soln -) 1 amp NEB RQ4H PRN PRN Reason: SHORT OF BREATH/WHEEZING Last Admin: 11/27/18 03:35 Dose: 1 amp Albuterol/Ipratropium (Duoneb -) 1 amp NEB RQID [facility] Last Admin: 11/27/18 07:29 Dose: 1 amp Alprazolam (Xanax) 1 mg PO Q12H PRN PRN Reason: ANXIETY Last Admin: 11/27/18 00:01 Dose: 1 mg Amlodipine Besylate (Norvasc -) 5 mg PO DAILY [facility] Last Admin: 11/27/18 09:34 Dose: 5 mg Aspirin (Ecotrin -) 81 mg PO DAILY [facility] Last Admin: 11/27/18 11:01 Dose: Not Given Atovaquone (Mepron -) 1,500 mg PO DAILY@0800 [facility] Last Admin: 11/27/18 09:32 Dose: 1,500 mg Buspirone HCl (Buspar -) 5 mg PO BID [facility] Last Admin: 11/27/18 09:35 Dose: 5 mg Escitalopram Oxalate (Lexapro -) 10 mg PO DAILY [facility] Last Admin: 11/27/18 09:36 Dose: 10 mg Furosemide (Lasix Injection -) 40 mg IVPUSH DAILY@0600 [facility] Last Admin: 11/27/18 06:06 Dose: 40 mg Heparin Sodium (Porcine) (Heparin -) 5,000 unit SQ BID [facility] Last Admin: 11/27/18 09:34 Dose: 5,000 unit Leflunomide (Arava -) 20 mg PO DAILY [facility] Last Admin: 11/27/18 09:32 Dose: 20 mg Losartan Potassium (Cozaar -) 100 mg PO DAILY [facility] Last Admin: 11/27/18 09:36 Dose: 100 mg Methylprednisolone Sodium Succinate (Solu-Medrol -) 40 mg IVPUSH Q8H-IV [facility] Last Admin: 11/27/18 09:34 Dose: 40 mg Metoprolol Succinate (Toprol Xl -) 50 mg PO DAILY [facility] Last Admin: 11/27/18 09:34 Dose: 50 mg Pantoprazole Sodium (Protonix -) 40 mg PO DAILY [facility] Last Admin: 11/27/18 09:36 Dose: 40 mg Sulfasalazine (Azulfidine En-Tabs -) 1,000 mg PO BID [facility] Last Admin: 11/27/18 09:33 Dose: 1,000 mg Tramadol HCl (Ultram -) 50 mg PO Q8H PRN PRN Reason: PAIN LEVEL 1-5 Zolpidem Tartrate (Ambien -) 5 mg PO HS PRN PRN Reason: INSOMNIA Last Admin: 11/27/18 00:01 Dose: 5 mg Constitutional: Yes: No Distress, depressed Neck: Yes: Supple Cardiovascular: Yes: Regular Rate and Rhythm Respiratory: Yes: diminished at the bases, few scattered rhonchi Gastrointestinal: Yes: Normal Bowel Sounds, Soft, Abdomen, Obese Edema: Yes Edema: LLE: 2+, RLE: 2+ Labs: IMP ACUTE ON CHRONIC HYPOXEMIC RESPIRATORY FAILURE COPD WITH ACUTE EXACERBATION ADVANCED METASTATIC LUNG CA WITH ELEVATED LACTATE LEVEL HTN CHF HLD RA PLAN LEXAPRO WEAN IV STEROIDS INHALED BRONCHODILATORS O2 LASIX Dr Sanabria
[2018-11-27] MEDS: traMADol HCL 50 MG TABLET PO PRN (11:58)
--- NOTE | 2018-11-27 14:17 | PN ---
Progress Note, Physician Chief Complaint: SOB Stage 4 Lung CA History of Present Illness: Previous notes and events reviewed awake and alert NAD sts her breathing is improving denies productive cough complain of R back pain (post surgical incision site) - Current Medication List Current Medications: Active Medications Acetaminophen (Tylenol -) 650 mg PO Q4H PRN PRN Reason: PAIN OR FEVER Albuterol Sulfate (Ventolin 0.083% Nebulizer Soln -) 1 amp NEB RQ4H PRN PRN Reason: SHORT OF BREATH/WHEEZING Last Admin: 11/27/18 03:35 Dose: 1 amp Albuterol/Ipratropium (Duoneb -) 1 amp NEB RQID [facility] Last Admin: 11/27/18 11:30 Dose: 1 amp Alprazolam (Xanax) 1 mg PO Q12H PRN PRN Reason: ANXIETY Last Admin: 11/27/18 11:58 Dose: 1 mg Amlodipine Besylate (Norvasc -) 5 mg PO DAILY [facility] Last Admin: 11/27/18 09:34 Dose: 5 mg Aspirin (Ecotrin -) 81 mg PO DAILY [facility] Last Admin: 11/27/18 11:01 Dose: Not Given Atovaquone (Mepron -) 1,500 mg PO DAILY@0800 [facility] Last Admin: 11/27/18 09:32 Dose: 1,500 mg Buspirone HCl (Buspar -) 5 mg PO BID [facility] Last Admin: 11/27/18 09:35 Dose: 5 mg Escitalopram Oxalate (Lexapro -) 10 mg PO DAILY [facility] Last Admin: 11/27/18 09:36 Dose: 10 mg Furosemide (Lasix Injection -) 40 mg IVPUSH DAILY@0600 [facility] Last Admin: 11/27/18 06:06 Dose: 40 mg Heparin Sodium (Porcine) (Heparin -) 5,000 unit SQ BID [facility] Last Admin: 11/27/18 09:34 Dose: 5,000 unit Leflunomide (Arava -) 20 mg PO DAILY [facility] Last Admin: 11/27/18 09:32 Dose: 20 mg Losartan Potassium (Cozaar -) 100 mg PO DAILY [facility] Last Admin: 11/27/18 09:36 Dose: 100 mg Methylprednisolone Sodium Succinate (Solu-Medrol -) 40 mg IVPUSH BID [facility] Metoprolol Succinate (Toprol Xl -) 50 mg PO DAILY [facility] Last Admin: 10/15/19 09:34 Dose: 50 mg Pantoprazole Sodium (Protonix -) 40 mg PO DAILY [facility] Last Admin: 11/27/18 09:36 Dose: 40 mg Sulfasalazine (Azulfidine En-Tabs -) 1,000 mg PO BID [facility] Last Admin: 11/27/18 09:33 Dose: 1,000 mg Tramadol HCl (Ultram -) 50 mg PO Q8H PRN PRN Reason: PAIN LEVEL 1-5 Last Admin: 11/27/18 11:58 Dose: 50 mg Zolpidem Tartrate (Ambien -) 5 mg PO HS PRN PRN Reason: INSOMNIA Last Admin: 11/27/18 00:01 Dose: 5 mg - Objective Vital Signs: Vital Signs Temperature 97.3 F L 11/27/18 14:07 Pulse Rate 101 H 11/27/18 14:07 Respiratory Rate 20 11/27/18 10:00 Blood Pressure 139/84 11/27/18 14:07 O2 Sat by Pulse Oximetry (%) 97 11/27/18 09:00 Constitutional: Yes: No Distress, Calm Eyes: Yes: Conjunctiva Clear HENT: Yes: Atraumatic Cardiovascular: Yes: Regular Rate and Rhythm Respiratory: Yes: Regular, Diminished, On Nasal O2 Gastrointestinal: Yes: Normal Bowel Sounds, Soft Musculoskeletal: Yes: Muscle Weakness Extremities: Yes: WNL Edema: Yes Edema: LLE: 1+, RLE: 1+ Neurological: Yes: Alert, Oriented Psychiatric: Yes: Alert, Oriented Labs: CBC, BMP 11/24/18 13:06 11/24/18 13:06 INR, PTT INR 1.13 (0.83-1.09) H 11/23/18 03:38 Microbiology 11/23/18 03:38 Blood - Peripheral Venous Blood Culture - Preliminary NO GROWTH OBTAINED AFTER 96 HOURS, INCUBATION TO CONTINUE FOR 1 DAYS. 11/23/18 03:38 Blood - Peripheral Venous Blood Culture - Preliminary NO GROWTH OBTAINED AFTER 96 HOURS, INCUBATION TO CONTINUE FOR 1 DAYS. Problem List - Problems (1) COPD with acute exacerbation Assessment/Plan: -Pulm on board -O2 via NC -keep SpO2 >90% -IV Medrol -Bronchodilators Code(s): J44.1 - CHRONIC OBSTRUCTIVE PULMONARY DISEASE W (ACUTE) EXACERBATION (2) Stage 4 lung cancer Assessment/Plan: -Pulm on board -O2 via NC -keep SpO2 >90% -IV Medrol -Bronchodilators -Oncology on board -Arava Code(s): C34.90 - MALIGNANT NEOPLASM OF UNSP PART OF UNSP BRONCHUS OR LUNG Qualifiers: Laterality: unspecified laterality Qualified Code(s): C34.90 - Malignant neoplasm of unspecified part of unspecified bronchus or lung (3) HTN (hypertension) Assessment/Plan: -Norvasc, Cozaar, Toprol -low Na diet Code(s): I10 - ESSENTIAL (PRIMARY) HYPERTENSION Qualifiers: Hypertension type: unspecified Qualified Code(s): I10 - Essential (primary ) hypertension (4) Acute on chronic respiratory failure with hypoxemia Assessment/Plan: -Pulm on board -O2 via NC -keep SpO2 >90% -IV Medrol -Bronchodilators Code(s): J96.21 - ACUTE AND CHRONIC RESPIRATORY FAILURE WITH HYPOXIA (5) Diabetes Assessment/Plan: -[facility] Code(s): E11.9 - TYPE 2 DIABETES MELLITUS WITHOUT COMPLICATIONS Qualifiers: Diabetes mellitus complication status: without complication (6) GERD (gastroesophageal reflux disease) Assessment/Plan: -Pantoprazole Code(s): K21.9 - GASTRO-ESOPHAGEAL REFLUX DISEASE WITHOUT ESOPHAGITIS (7) Metastatic lung cancer (metastasis from lung to other site) Assessment/Plan: -Pulm on board -O2 via NC -keep SpO2 >90% -IV Medrol -Bronchodilators -Oncology on board -Arava Code(s): C34.90 - MALIGNANT NEOPLASM OF UNSP PART OF UNSP BRONCHUS OR LUNG (8) Anxiety Assessment/Plan: -Lexapro Buspar Code(s): F41.9 - ANXIETY DISORDER, UNSPECIFIED (9) CHF exacerbation Assessment/Plan: -Pulm on board -Lasix -daily weights -keep SpO2 >90% Code(s): I50.9 - HEART FAILURE, UNSPECIFIED Assessment/Plan see problem list dvt ppx DNR/DNI
[2018-11-27] MEDS: INSULIN SLIDING SCALE (NOVOLOG) 1 VIAL SQ SCH ×2 (16:10→21:50)
[2018-11-28] MEDS: FUROSEMIDE 40 MG/4 ML INJECTABLE VIAL IVPUSH SCH (06:06)
[2018-11-28] MEDS: INSULIN SLIDING SCALE (NOVOLOG) 1 VIAL SQ SCH ×4 (06:11→22:05)
[2018-11-28 07:55] LABS: HEMATOCRIT 32.5 % (32.4-45.2); HEMOGLOBIN 10.6 GM/dL (10.7-15.3); MCH 30.8 pg (25.7-33.7); MCHC 32.6 g/dl (32.0-36.0); MEAN CELL VOLUME 94.6 fl (80-96); MEAN PLT VOLUME 8.1 fl (7.5-11.1); PLATELET COUNT 137 K/MM3 (134-434); RBC 3.44 M/mm3 (3.60-5.2); RDW 18.8 % (11.6-15.6); WHITE BLOOD COUNT 8.3 K/mm3 (4.0-10.0)
[2018-11-28] MEDS: ALBUTEROL SO4 2.5/IPRATROPIUM 0.5 INH SOL 3 ML VIAL.NEB. NEB SCH ×4 (08:00→21:27)
[2018-11-28 08:24] LABS: ALBUMIN 2.9 g/dl (3.4-5.0); BILIRUBIN,TOTAL 0.7 mg/dL (0.2-1); BLOOD UREA NITROGEN 34.6 mg/dL (7-18); CALCIUM 9.1 mg/dL (8.5-10.1); POTASSIUM 3.8 mmol/L (3.5-5.1); TOT PROT 5.5 g/dl (6.4-8.2)
[2018-11-28] MEDS ORDERED: PT OWN MED DRAWER 7, Y5N ONE ×2 (09:35→10:01)
[2018-11-28] MEDS: methylPREDNISolone NA SUCC 40 MG/1 ML VIAL IVPUSH SCH ×2 (09:39→22:06)
[2018-11-28] MEDS: traMADol HCL 50 MG TABLET PO PRN (09:39)
[2018-11-28] MEDS: HEPARIN NA (PORCINE) 5,000 UNITS/ML 1ML VIAL SQ SCH ×2 (09:39→22:05)
[2018-11-28] MEDS: PANTOPRAZOLE 40 MG TABLET (FP) PO SCH (09:40)
[2018-11-28] MEDS: ESCITALOPRAM OXALATE 10 MG TABLET (FP) PO SCH (09:40)
[2018-11-28] MEDS: LOSARTAN POTASSIUM 50 MG TABLET (FP) PO SCH (09:40)
[2018-11-28] MEDS: busPIRone HCL 5 MG TABLET PO SCH ×2 (09:40→22:05)
[2018-11-28] MEDS: amLODIPine BESYLATE 5 MG TABLET (FP) PO SCH (09:40)
[2018-11-28] MEDS: ASPIRIN COATED 81 MG TABLET.EC PO SCH (09:41)
[2018-11-28] MEDS: ALPRAZolam 1 MG TABLET PO PRN ×2 (10:20→22:06)
[2018-11-28] MEDS: ATOVAQUONE 750 MG/5 ML (UNIT-DOSE PACKAGING) PO SCH (10:20)
--- NOTE | 2018-11-28 11:21 | PN ---
Progress Note, Physician Chief Complaint: SOB Stage 4 Lung CA History of Present Illness: Previous notes and events reviewed awake and alert NAD complain of SOB and productive cough O2 sat 91-92% with O2 via NC, patient repositioned in bed and O2 sat increase to 95% denies chest pain or dizziness - Current Medication List Current Medications: Active Medications Acetaminophen (Tylenol -) 650 mg PO Q4H PRN PRN Reason: PAIN OR FEVER Albuterol Sulfate (Ventolin 0.083% Nebulizer Soln -) 1 amp NEB RQ4H PRN PRN Reason: SHORT OF BREATH/WHEEZING Last Admin: 11/27/18 03:35 Dose: 1 amp Albuterol/Ipratropium (Duoneb -) 1 amp NEB RQID [facility] Last Admin: 11/27/18 19:45 Dose: 1 amp Alprazolam (Xanax) 1 mg PO Q12H PRN PRN Reason: ANXIETY Last Admin: 11/28/18 10:20 Dose: 1 mg Amlodipine Besylate (Norvasc -) 5 mg PO DAILY [facility] Last Admin: 11/28/18 09:40 Dose: 5 mg Aspirin (Ecotrin -) 81 mg PO DAILY [facility] Last Admin: 11/28/18 09:41 Dose: Not Given Atovaquone (Mepron -) 1,500 mg PO DAILY@0800 [facility] Last Admin: 11/28/18 10:20 Dose: 1,500 mg Buspirone HCl (Buspar -) 5 mg PO BID [facility] Last Admin: 11/28/18 09:40 Dose: 5 mg Escitalopram Oxalate (Lexapro -) 10 mg PO DAILY [facility] Last Admin: 11/28/18 09:40 Dose: 10 mg Furosemide (Lasix Injection -) 40 mg IVPUSH DAILY@0600 [facility] Last Admin: 11/28/18 06:06 Dose: 40 mg Heparin Sodium (Porcine) (Heparin -) 5,000 unit SQ BID [facility] Last Admin: 11/28/18 09:39 Dose: 5,000 unit Insulin Aspart (Novolog Vial Sliding Scale -) 1 vial SQ ACHS [facility]; Protocol Last Admin: 11/28/18 06:11 Dose: Not Given Leflunomide (Arava -) 20 mg PO DAILY [facility] Last Admin: 11/27/18 09:32 Dose: 20 mg Losartan Potassium (Cozaar -) 100 mg PO DAILY [facility] Last Admin: 11/28/18 09:40 Dose: 100 mg Methylprednisolone Sodium Succinate (Solu-Medrol -) 40 mg IVPUSH BID [facility] Last Admin: 11/28/18 09:39 Dose: 40 mg Metoprolol Succinate (Toprol Xl -) 50 mg PO DAILY [facility] Last Admin: 11/28/18 09:40 Dose: 50 mg Pantoprazole Sodium (Protonix -) 40 mg PO DAILY [facility] Last Admin: 11/28/18 09:40 Dose: 40 mg Sulfasalazine (Azulfidine En-Tabs -) 1,000 mg PO BID [facility] Last Admin: 11/28/18 10:20 Dose: 1,000 mg Tramadol HCl (Ultram -) 50 mg PO Q8H PRN PRN Reason: PAIN LEVEL 1-5 Last Admin: 11/28/18 09:39 Dose: 50 mg Zolpidem Tartrate (Ambien -) 5 mg PO HS PRN PRN Reason: INSOMNIA Last Admin: 11/27/18 23:58 Dose: 5 mg - Objective Vital Signs: Vital Signs Temperature 97.9 F 11/28/18 06:00 Pulse Rate 99 H 11/28/18 06:00 Respiratory Rate 20 11/28/18 06:00 Blood Pressure 147/92 11/28/18 06:00 O2 Sat by Pulse Oximetry (%) 96 11/27/18 22:00 Constitutional: Yes: Calm, Anxious, Mild Distress Eyes: Yes: Conjunctiva Clear HENT: Yes: Atraumatic Cardiovascular: Yes: Regular Rate and Rhythm Respiratory: Yes: Regular, On Nasal O2, Wheezes Gastrointestinal: Yes: Normal Bowel Sounds, Soft Musculoskeletal: Yes: Muscle Weakness Extremities: Yes: WNL Neurological: Yes: Alert, Oriented Psychiatric: Yes: Alert, Oriented Labs: CBC, BMP 11/28/18 06:15 11/28/18 06:15 INR, PTT INR 1.13 (0.83-1.09) H 11/23/18 03:38 Microbiology 11/23/18 03:38 Blood - Peripheral Venous Blood Culture - Final NO GROWTH AFTER 5 DAYS INCUBATION 11/23/18 03:38 Blood - Peripheral Venous Blood Culture - Final NO GROWTH AFTER 5 DAYS INCUBATION Problem List - Problems (1) COPD with acute exacerbation Assessment/Plan: -Pulm on board -O2 via NC -keep SpO2 >90% -IV Medrol -Bronchodilators Code(s): J44.1 - CHRONIC OBSTRUCTIVE PULMONARY DISEASE W (ACUTE) EXACERBATION (2) Stage 4 lung cancer Assessment/Plan: -Pulm on board -O2 via NC -keep SpO2 >90% -IV Medrol -Bronchodilators -Oncology on board -Arava Code(s): C34.90 - MALIGNANT NEOPLASM OF UNSP PART OF UNSP BRONCHUS OR LUNG Qualifiers: Laterality: unspecified laterality Qualified Code(s): C34.90 - Malignant neoplasm of unspecified part of unspecified bronchus or lung (3) HTN (hypertension) Assessment/Plan: -Norvasc, Cozaar, Toprol -low Na diet Code(s): I10 - ESSENTIAL (PRIMARY) HYPERTENSION Qualifiers: Hypertension type: unspecified Qualified Code(s): I10 - Essential (primary ) hypertension (4) Acute on chronic respiratory failure with hypoxemia Assessment/Plan: -Pulm on board -O2 via NC -keep SpO2 >90% -IV Medrol -Bronchodilators Code(s): J96.21 - ACUTE AND CHRONIC RESPIRATORY FAILURE WITH HYPOXIA (5) Diabetes Assessment/Plan: -BGM ACBK -[facility] Code(s): E11.9 - TYPE 2 DIABETES MELLITUS WITHOUT COMPLICATIONS Qualifiers: Diabetes mellitus complication status: without complication (6) GERD (gastroesophageal reflux disease) Assessment/Plan: -Pantoprazole Code(s): K21.9 - GASTRO-ESOPHAGEAL REFLUX DISEASE WITHOUT ESOPHAGITIS (7) Metastatic lung cancer (metastasis from lung to other site) Assessment/Plan: -Pulm on board -O2 via NC -keep SpO2 >90% -IV Medrol -Bronchodilators -Oncology on board -Arava Code(s): C34.90 - MALIGNANT NEOPLASM OF UNSP PART OF UNSP BRONCHUS OR LUNG (8) Anxiety Assessment/Plan: -Lexapro, Buspar Code(s): F41.9 - ANXIETY DISORDER, UNSPECIFIED (9) CHF exacerbation Assessment/Plan: -Pulm on board -Lasix -daily weights -keep SpO2 >90% Code(s): I50.9 - HEART FAILURE, UNSPECIFIED Assessment/Plan see problem list dvt ppx DNR/DNI
--- NOTE | 2018-11-28 11:44 | PN ---
Progress Note, Physician History of Present Illness: Ms. Fulton is a 73 year old black woman with a past medical history of stage 4 lung cancer (s/p right upper lobe removal, currently on immunotherapy), COPD ( 5L at home), diastolic CHF (AZ[facility] 10/2018: normal LVEF; abnormal diastrolic compliance;small pericardial effusion), ,moderate pulmonary HTN, here today for evaluation of shortness of breath and bilateral LE edema that worsened over the past 48 hours. She notes acute on chronic SOB tonight despite nebulizer use at her [facility]. - Current Medication List Current Medications: Active Medications Acetaminophen (Tylenol -) 650 mg PO Q4H PRN PRN Reason: PAIN OR FEVER Albuterol Sulfate (Ventolin 0.083% Nebulizer Soln -) 1 amp NEB RQ4H PRN PRN Reason: SHORT OF BREATH/WHEEZING Last Admin: 11/27/18 03:35 Dose: 1 amp Albuterol/Ipratropium (Duoneb -) 1 amp NEB RQID [facility] Last Admin: 11/27/18 19:45 Dose: 1 amp Alprazolam (Xanax) 1 mg PO Q12H PRN PRN Reason: ANXIETY Last Admin: 11/28/18 10:20 Dose: 1 mg Amlodipine Besylate (Norvasc -) 5 mg PO DAILY [facility] Last Admin: 11/28/18 09:40 Dose: 5 mg Aspirin (Ecotrin -) 81 mg PO DAILY [facility] Last Admin: 11/28/18 09:41 Dose: Not Given Atovaquone (Mepron -) 1,500 mg PO DAILY@0800 [facility] Last Admin: 11/28/18 10:20 Dose: 1,500 mg Buspirone HCl (Buspar -) 5 mg PO BID [facility] Last Admin: 11/28/18 09:40 Dose: 5 mg Escitalopram Oxalate (Lexapro -) 10 mg PO DAILY [facility] Last Admin: 11/28/18 09:40 Dose: 10 mg Furosemide (Lasix Injection -) 40 mg IVPUSH DAILY@0600 [facility] Last Admin: 11/28/18 06:06 Dose: 40 mg Heparin Sodium (Porcine) (Heparin -) 5,000 unit SQ BID [facility] Last Admin: 11/28/18 09:39 Dose: 5,000 unit Insulin Aspart (Novolog Vial Sliding Scale -) 1 vial SQ ACHS [facility]; Protocol Last Admin: 11/28/18 11:36 Dose: Not Given Leflunomide (Arava -) 20 mg PO DAILY [facility] Last Admin: 11/27/18 09:32 Dose: 20 mg Losartan Potassium (Cozaar -) 100 mg PO DAILY [facility] Last Admin: 11/28/18 09:40 Dose: 100 mg Methylprednisolone Sodium Succinate (Solu-Medrol -) 40 mg IVPUSH BID [facility] Last Admin: 11/28/18 09:39 Dose: 40 mg Metoprolol Succinate (Toprol Xl -) 50 mg PO DAILY [facility] Last Admin: 11/28/18 09:40 Dose: 50 mg Pantoprazole Sodium (Protonix -) 40 mg PO DAILY [facility] Last Admin: 11/28/18 09:40 Dose: 40 mg Sulfasalazine (Azulfidine En-Tabs -) 1,000 mg PO BID [facility] Last Admin: 11/28/18 10:20 Dose: 1,000 mg Tramadol HCl (Ultram -) 50 mg PO Q8H PRN PRN Reason: PAIN LEVEL 1-5 Last Admin: 11/28/18 09:39 Dose: 50 mg Zolpidem Tartrate (Ambien -) 5 mg PO HS PRN PRN Reason: INSOMNIA Last Admin: 11/27/18 23:58 Dose: 5 mg - Objective Vital Signs: Vital Signs Temperature 97.8 F 11/28/18 10:00 Pulse Rate 100 H 11/28/18 10:00 Respiratory Rate 20 11/28/18 10:00 Blood Pressure 114/86 11/28/18 10:00 O2 Sat by Pulse Oximetry (%) 96 11/27/18 22:00 Eyes: Yes: WNL, Conjunctiva Clear, EOM Intact HENT: Yes: WNL, Atraumatic, Normocephalic Neck: Yes: WNL, Supple, Trachea Midline Cardiovascular: Yes: WNL, Regular Rate and Rhythm Respiratory: Yes: Diminished Gastrointestinal: Yes: WNL, Normal Bowel Sounds Genitourinary: Yes: WNL Musculoskeletal: Yes: WNL Extremities: Yes: WNL Edema: No Integumentary: Yes: WNL Neurological: Yes: WNL, Alert, Oriented ...Motor Strength: WNL Psychiatric: Yes: WNL Labs: CBC, BMP 11/28/18 06:15 11/28/18 06:15 INR, PTT INR 1.13 (0.83-1.09) H 11/23/18 03:38 Assessment/Plan 1. Clinical presentation consistent with class II-III NYHA classification LV failure related to diastolic LV dysfunction, resolving 2. CAD with evidence of demand ischemic injury angina pectoris 3. HTN 4. Hyperglycemia 5. Hypercholesterolemia 6. Metastatic lung carcinoma 7. Pre-renal azotemia 8. Anemia PLAN: Continue Cozaar and dose titration Continue Norvasc Continue Lasix with caution considering the above noted pre-renal azotemia
[2018-11-28] MEDS: LEFLUNOMIDE 10 MG TABLET PO SCH (11:46)
--- NOTE | 2018-11-28 14:07 | PN ---
Progress Note (short form) - Note Progress Note: PULMONARY States breathing about the same. Less cough. Vital Signs Period Temp Pulse Resp BP Sys/Medeiros Pulse Ox Last 24 Hr 97.3 F-98.7 F 59-101 20-21 114-147/55-92 95-96 Gen: NAD at rest Heart: RRR Lung: distant breath sounds Abd: soft, nontender Ext: no edema CBC, BMP 11/28/18 06:15 11/28/18 06:15 Active Medications Acetaminophen (Tylenol -) 650 mg PO Q4H PRN PRN Reason: PAIN OR FEVER Albuterol Sulfate (Ventolin 0.083% Nebulizer Soln -) 1 amp NEB RQ4H PRN PRN Reason: SHORT OF BREATH/WHEEZING Last Admin: 11/27/18 03:35 Dose: 1 amp Albuterol/Ipratropium (Duoneb -) 1 amp NEB RQID [facility] Last Admin: 11/28/18 11:57 Dose: 1 amp Alprazolam (Xanax) 1 mg PO Q12H PRN PRN Reason: ANXIETY Last Admin: 11/28/18 10:20 Dose: 1 mg Amlodipine Besylate (Norvasc -) 5 mg PO DAILY [facility] Last Admin: 11/28/18 09:40 Dose: 5 mg Aspirin (Ecotrin -) 81 mg PO DAILY [facility] Last Admin: 11/28/18 09:41 Dose: Not Given Atovaquone (Mepron -) 1,500 mg PO DAILY@0800 [facility] Last Admin: 11/28/18 10:20 Dose: 1,500 mg Buspirone HCl (Buspar -) 5 mg PO BID [facility] Last Admin: 11/28/18 09:40 Dose: 5 mg Escitalopram Oxalate (Lexapro -) 10 mg PO DAILY [facility] Last Admin: 11/28/18 09:40 Dose: 10 mg Furosemide (Lasix Injection -) 40 mg IVPUSH DAILY@0600 [facility] Last Admin: 11/28/18 06:06 Dose: 40 mg Heparin Sodium (Porcine) (Heparin -) 5,000 unit SQ BID [facility] Last Admin: 11/28/18 09:39 Dose: 5,000 unit Insulin Aspart (Novolog Vial Sliding Scale -) 1 vial SQ ACHS [facility]; Protocol Last Admin: 11/28/18 11:36 Dose: Not Given Leflunomide (Arava -) 20 mg PO DAILY [facility] Last Admin: 11/28/18 11:46 Dose: 20 mg Losartan Potassium (Cozaar -) 100 mg PO DAILY [facility] Last Admin: 11/28/18 09:40 Dose: 100 mg Methylprednisolone Sodium Succinate (Solu-Medrol -) 40 mg IVPUSH BID [facility] Last Admin: 11/28/18 09:39 Dose: 40 mg Metoprolol Succinate (Toprol Xl -) 50 mg PO DAILY [facility] Last Admin: 11/28/18 09:40 Dose: 50 mg Pantoprazole Sodium (Protonix -) 40 mg PO DAILY [facility] Last Admin: 11/28/18 09:40 Dose: 40 mg Sulfasalazine (Azulfidine En-Tabs -) 1,000 mg PO BID [facility] Last Admin: 11/28/18 10:20 Dose: 1,000 mg Tramadol HCl (Ultram -) 50 mg PO Q8H PRN PRN Reason: PAIN LEVEL 1-5 Last Admin: 11/28/18 09:39 Dose: 50 mg Zolpidem Tartrate (Ambien -) 5 mg PO HS PRN PRN Reason: INSOMNIA Last Admin: 11/27/18 23:58 Dose: 5 mg A/P Acute on Chronic Hypoxic and Hypercapneic Respiratory Failure Acute COPD Exacerbation Metastatic Lung Cancer Lactic Acidosis LV Diastolic Dysfunction HTN Hyperlipidemia Rheumatoid Arthritis Anemia - continue medrol at current dose - can likely change steroids to PO prednisone in AM if continues to improve - inhaled bronchodilators - O2 to keep SpO2 >90% - DVT prophylaxis
[2018-11-28] MEDS ORDERED: ACETAMINOPHEN 325 MG TABLET (FP) PO PRN (19:14)
[2018-11-28] MEDS ORDERED: ZOLPIDEM TARTRATE 5 MG TABLET PO ONE (22:15)
[2018-11-29] MEDS: ALBUTEROL SO4 0.083% IH SOL 2.5 MG/3 ML VIAL.NEB. NEB PRN ×2 (01:27→04:39)
[2018-11-29] MEDS: INSULIN SLIDING SCALE (NOVOLOG) 1 VIAL SQ SCH ×4 (06:47→22:21)
[2018-11-29] MEDS: FUROSEMIDE 40 MG/4 ML INJECTABLE VIAL IVPUSH SCH (06:47)
[2018-11-29] MEDS: ALBUTEROL SO4 2.5/IPRATROPIUM 0.5 INH SOL 3 ML VIAL.NEB. NEB SCH ×4 (08:00→20:59)
[2018-11-29] MEDS ORDERED: PT OWN MED DRAWER 7, Y5N ONE (09:32)
--- NOTE | 2018-11-29 09:34 | PN ---
Progress Note (short form) - Note Progress Note: Dyspnea about the same with minimal exertion. Depressed. Some non-productive cough. No hemoptysis. Intake & Output 11/26/18 11/27/18 11/28/18 11/29/18 23:59 23:59 23:59 23:59 Intake Total 870 898 930 Output Total 2300 Balance 870 -1402 930 Weight 178 lb 151 lb 151 lb 6 oz Last Vital Signs Temp Pulse Resp BP Pulse Ox 98.1 F 102 H 20 143/81 95 11/29/18 05:55 11/29/18 05:55 11/29/18 05:55 11/29/18 05:55 11/28/18 21:00 Active Medications Acetaminophen (Tylenol -) 650 mg PO Q4H PRN PRN Reason: PAIN OR FEVER Albuterol Sulfate (Ventolin 0.083% Nebulizer Soln -) 1 amp NEB RQ4H PRN PRN Reason: SHORT OF BREATH/WHEEZING Last Admin: 11/29/18 04:39 Dose: 1 amp Albuterol/Ipratropium (Duoneb -) 1 amp NEB RQID [facility] Last Admin: 11/28/18 21:27 Dose: 1 amp Alprazolam (Xanax) 1 mg PO Q12H PRN PRN Reason: ANXIETY Last Admin: 11/28/18 22:06 Dose: 1 mg Amlodipine Besylate (Norvasc -) 5 mg PO DAILY [facility] Aspirin (Ecotrin -) 81 mg PO DAILY [facility] Last Admin: 11/28/18 09:41 Dose: Not Given Atovaquone (Mepron -) 1,500 mg PO DAILY@0800 [facility] Buspirone HCl (Buspar -) 5 mg PO BID [facility] Last Admin: 11/28/18 22:05 Dose: 5 mg Escitalopram Oxalate (Lexapro -) 10 mg PO DAILY [facility] Last Admin: 11/28/18 09:40 Dose: 10 mg Furosemide (Lasix Injection -) 40 mg IVPUSH DAILY@0600 [facility] Last Admin: 11/29/18 06:47 Dose: 40 mg Heparin Sodium (Porcine) (Heparin -) 5,000 unit SQ BID [facility] Last Admin: 11/28/18 22:05 Dose: 5,000 unit Insulin Aspart (Novolog Vial Sliding Scale -) 1 vial SQ ACHS [facility]; Protocol Last Admin: 11/29/18 06:47 Dose: Not Given Leflunomide (Arava -) 20 mg PO DAILY [facility] Losartan Potassium (Cozaar -) 100 mg PO DAILY [facility] Last Admin: 11/28/18 09:40 Dose: 100 mg Methylprednisolone Sodium Succinate (Solu-Medrol -) 40 mg IVPUSH BID [facility] Last Admin: 11/28/18 22:06 Dose: 40 mg Metoprolol Succinate (Toprol Xl -) 50 mg PO DAILY [facility] Last Admin: 11/28/18 09:40 Dose: 50 mg Pantoprazole Sodium (Protonix -) 40 mg PO DAILY [facility] Sulfasalazine (Azulfidine En-Tabs -) 1,000 mg PO BID [facility] Last Admin: 11/28/18 22:05 Dose: 1,000 mg Constitutional: Yes: Tachypneic at rest, depressed appearing Neck: Yes: Supple Cardiovascular: Yes: Regular Rate and Rhythm Respiratory: Yes: diminished at the bases, few scattered rhonchi Gastrointestinal: Yes: Normal Bowel Sounds, Soft, Abdomen, Obese Edema: Yes Edema: LLE: 2+, RLE: 2+ Labs: Laboratory Results - last 24 hr 11/28/18 11/28/18 11:34 22:03 POC Glucometer 194 207 IMP ACUTE ON CHRONIC HYPOXEMIC RESPIRATORY FAILURE COPD WITH ACUTE EXACERBATION ADVANCED METASTATIC LUNG CA WITH ELEVATED LACTATE LEVEL HTN CHF HLD RA PLAN LEXAPRO IV STEROIDS INHALED BRONCHODILATORS O2 LASIX DNR/DNI (?) [facility] Dr Sanabria
[2018-11-29] MEDS: ALPRAZolam 1 MG TABLET PO PRN ×2 (09:35→22:21)
[2018-11-29] MEDS: LOSARTAN POTASSIUM 50 MG TABLET (FP) PO SCH (09:35)
[2018-11-29] MEDS: PANTOPRAZOLE 40 MG TABLET (FP) PO SCH (09:35)
[2018-11-29] MEDS: ESCITALOPRAM OXALATE 10 MG TABLET (FP) PO SCH (09:36)
[2018-11-29] MEDS: methylPREDNISolone NA SUCC 40 MG/1 ML VIAL IVPUSH SCH ×2 (09:36→22:21)
[2018-11-29] MEDS: ATOVAQUONE 750 MG/5 ML (UNIT-DOSE PACKAGING) PO SCH (09:36)
[2018-11-29] MEDS: amLODIPine BESYLATE 5 MG TABLET (FP) PO SCH (09:36)
[2018-11-29] MEDS: HEPARIN NA (PORCINE) 5,000 UNITS/ML 1ML VIAL SQ SCH ×2 (09:36→22:21)
[2018-11-29] MEDS: busPIRone HCL 5 MG TABLET PO SCH ×2 (09:38→22:21)
[2018-11-29] MEDS: ASPIRIN COATED 81 MG TABLET.EC PO SCH (09:39)
--- NOTE | 2018-11-29 11:36 | PN ---
Progress Note, Physician Chief Complaint: SOB Stage 4 Lung CA History of Present Illness: Previous notes and events reviewed awake and alert NAD complain of intermittent episodes of SOB spoke with patient in regards to [facility] for discharge and patient refused saying she does not believe she is ready for [facility] yet - Current Medication List Current Medications: Active Medications Acetaminophen (Tylenol -) 650 mg PO Q4H PRN PRN Reason: PAIN OR FEVER Albuterol Sulfate (Ventolin 0.083% Nebulizer Soln -) 1 amp NEB RQ4H PRN PRN Reason: SHORT OF BREATH/WHEEZING Last Admin: 11/29/18 04:39 Dose: 1 amp Albuterol/Ipratropium (Duoneb -) 1 amp NEB RQID [facility] Last Admin: 11/28/18 21:27 Dose: 1 amp Alprazolam (Xanax) 1 mg PO Q12H PRN PRN Reason: ANXIETY Last Admin: 11/29/18 09:35 Dose: 1 mg Amlodipine Besylate (Norvasc -) 5 mg PO DAILY [facility] Last Admin: 11/29/18 09:36 Dose: 5 mg Aspirin (Ecotrin -) 81 mg PO DAILY [facility] Last Admin: 11/29/18 09:39 Dose: Not Given Atovaquone (Mepron -) 1,500 mg PO DAILY@0800 [facility] Last Admin: 11/29/18 09:36 Dose: 1,500 mg Buspirone HCl (Buspar -) 5 mg PO BID [facility] Last Admin: 11/29/18 09:38 Dose: 5 mg Escitalopram Oxalate (Lexapro -) 10 mg PO DAILY [facility] Last Admin: 11/29/18 09:36 Dose: 10 mg Furosemide (Lasix Injection -) 40 mg IVPUSH DAILY@0600 [facility] Last Admin: 11/29/18 06:47 Dose: 40 mg Heparin Sodium (Porcine) (Heparin -) 5,000 unit SQ BID [facility] Last Admin: 11/29/18 09:36 Dose: 5,000 unit Insulin Aspart (Novolog Vial Sliding Scale -) 1 vial SQ ACHS [facility]; Protocol Last Admin: 11/29/18 11:27 Dose: Not Given Leflunomide (Arava -) 20 mg PO DAILY [facility] Losartan Potassium (Cozaar -) 100 mg PO DAILY [facility] Last Admin: 11/29/18 09:35 Dose: 100 mg Methylprednisolone Sodium Succinate (Solu-Medrol -) 40 mg IVPUSH BID [facility] Last Admin: 11/29/18 09:36 Dose: 40 mg Metoprolol Succinate (Toprol Xl -) 50 mg PO DAILY [facility] Last Admin: 11/29/18 09:35 Dose: 50 mg Pantoprazole Sodium (Protonix -) 40 mg PO DAILY [facility] Last Admin: 11/29/18 09:35 Dose: 40 mg Sulfasalazine (Azulfidine En-Tabs -) 1,000 mg PO BID [facility] Last Admin: 11/28/18 22:05 Dose: 1,000 mg - Objective Vital Signs: Vital Signs Temperature 98.0 F 11/29/18 10:00 Pulse Rate 100 H 11/29/18 10:00 Respiratory Rate 20 11/29/18 10:00 Blood Pressure 158/92 11/29/18 10:00 O2 Sat by Pulse Oximetry (%) 94 L 11/29/18 09:00 Constitutional: Yes: Calm, Mild Distress Eyes: Yes: Conjunctiva Clear HENT: Yes: Atraumatic Cardiovascular: Yes: Regular Rate and Rhythm Respiratory: Yes: Regular, Diminished, On Nasal O2 Gastrointestinal: Yes: Normal Bowel Sounds, Soft, Abdomen, Obese Genitourinary: Yes: Incontinence Musculoskeletal: Yes: Muscle Weakness Extremities: Yes: WNL Edema: No Neurological: Yes: Alert, Oriented Psychiatric: Yes: Alert, Oriented Labs: CBC, BMP 11/28/18 06:15 11/28/18 06:15 INR, PTT INR 1.13 (0.83-1.09) H 11/23/18 03:38 Problem List - Problems (1) COPD with acute exacerbation Assessment/Plan: -Pulm on board -O2 via NC -keep SpO2 >90% -IV Medrol -Bronchodilators Code(s): J44.1 - CHRONIC OBSTRUCTIVE PULMONARY DISEASE W (ACUTE) EXACERBATION (2) Stage 4 lung cancer Assessment/Plan: -Pulm on board -O2 via NC -keep SpO2 >90% -IV Medrol -Bronchodilators -Oncology on board -[facility]rava Code(s): C34.90 - MALIGNANT NEOPLASM OF UNSP PART OF UNSP BRONCHUS OR LUNG Qualifiers: Laterality: unspecified laterality Qualified Code(s): C34.90 - Malignant neoplasm of unspecified part of unspecified bronchus or lung (3) HTN (hypertension) Assessment/Plan: -Norvasc, Cozaar, Toprol -low Na diet Code(s): I10 - ESSENTIAL (PRIMARY) HYPERTENSION Qualifiers: Hypertension type: unspecified Qualified Code(s): I10 - Essential (primary ) hypertension (4) Acute on chronic respiratory failure with hypoxemia Assessment/Plan: -Pulm on board -O2 via NC -keep SpO2 >90% -IV Medrol -Bronchodilators Code(s): J96.21 - ACUTE AND CHRONIC RESPIRATORY FAILURE WITH HYPOXIA (5) Diabetes Assessment/Plan: -BGM ACBK -ISS Problems reviewed: Yes Code(s): E11.9 - TYPE 2 DIABETES MELLITUS WITHOUT COMPLICATIONS Qualifiers: Diabetes mellitus complication status: without complication (6) GERD (gastroesophageal reflux disease) Assessment/Plan: -Pantoprazole Code(s): K21.9 - GASTRO-ESOPHAGEAL REFLUX DISEASE WITHOUT ESOPHAGITIS (7) Metastatic lung cancer (metastasis from lung to other site) Assessment/Plan: -Pulm on board -O2 via NC -keep SpO2 >90% -IV Medrol -Bronchodilators -Oncology on board -Arava Code(s): C34.90 - MALIGNANT NEOPLASM OF UNSP PART OF UNSP BRONCHUS OR LUNG (8) Anxiety Assessment/Plan: -LexaprBecky leachpar Code(s): F41.9 - ANXIETY DISORDER, UNSPECIFIED (9) CHF exacerbation Assessment/Plan: -Pulm on board -Lasix -daily weights -keep SpO2 >90% Code(s): I50.9 - HEART FAILURE, UNSPECIFIED Assessment/Plan see problem list dvt ppx DNR/DNI
--- NOTE | 2018-11-29 12:37 | PN ---
Progress Note, Physician Chief Complaint: Pt is alert; short of breath on minimal exertion; depressed. History of Present Illness: Ms. Fulton is a 73 year old black woman with a past medical history of stage 4 lung cancer (s/p right upper lobe removal, currently on immunotherapy), COPD ( 5L at home), diastolic CHF ([facility] 10/2018: normal LVEF; abnormal diastrolic compliance;small pericardial effusion), ,moderate pulmonary HTN, here today for evaluation of shortness of breath and bilateral LE edema that worsened over the past 48 hours. She notes acute on chronic SOB tonight despite nebulizer use at her [facility]. States she usually feels better with 1-2 breathing treatments and steroids. Patient denies headache, lightheadedness. Denies fever, chills. Denies chest pain. - Current Medication List Current Medications: Active Medications Acetaminophen (Tylenol -) 650 mg PO Q4H PRN PRN Reason: PAIN OR FEVER Albuterol Sulfate (Ventolin 0.083% Nebulizer Soln -) 1 amp NEB RQ4H PRN PRN Reason: SHORT OF BREATH/WHEEZING Last Admin: 11/29/18 04:39 Dose: 1 amp Albuterol/Ipratropium (Duoneb -) 1 amp NEB RQID [facility] Last Admin: 11/29/18 12:32 Dose: 1 amp Alprazolam (Xanax) 1 mg PO Q12H PRN PRN Reason: ANXIETY Last Admin: 11/29/18 09:35 Dose: 1 mg Amlodipine Besylate (Norvasc -) 5 mg PO DAILY [facility] Last Admin: 11/29/18 09:36 Dose: 5 mg Aspirin (Ecotrin -) 81 mg PO DAILY [facility] Last Admin: 11/29/18 09:39 Dose: Not Given Atovaquone (Mepron -) 1,500 mg PO DAILY@0800 [facility] Last Admin: 11/29/18 09:36 Dose: 1,500 mg Buspirone HCl (Buspar -) 5 mg PO BID [facility] Last Admin: 11/29/18 09:38 Dose: 5 mg Escitalopram Oxalate (Lexapro -) 10 mg PO DAILY [facility] Last Admin: 11/29/18 09:36 Dose: 10 mg Furosemide (Lasix Injection -) 40 mg IVPUSH DAILY@0600 [facility] Last Admin: 11/29/18 06:47 Dose: 40 mg Heparin Sodium (Porcine) (Heparin -) 5,000 unit SQ BID [facility] Last Admin: 11/29/18 09:36 Dose: 5,000 unit Insulin Aspart (Novolog Vial Sliding Scale -) 1 vial SQ ACHS [facility]; Protocol Last Admin: 11/29/18 11:27 Dose: Not Given Leflunomide (Arava -) 20 mg PO DAILY [facility] Losartan Potassium (Cozaar -) 100 mg PO DAILY [facility] Last Admin: 11/29/18 09:35 Dose: 100 mg Methylprednisolone Sodium Succinate (Solu-Medrol -) 40 mg IVPUSH BID [facility] Last Admin: 11/29/18 09:36 Dose: 40 mg Metoprolol Succinate (Toprol Xl -) 50 mg PO DAILY [facility] Last Admin: 11/29/18 09:35 Dose: 50 mg Pantoprazole Sodium (Protonix -) 40 mg PO DAILY [facility] Last Admin: 11/29/18 09:35 Dose: 40 mg Sulfasalazine (Azulfidine En-Tabs -) 1,000 mg PO BID [facility] Last Admin: 11/28/18 22:05 Dose: 1,000 mg - Objective Vital Signs: Vital Signs Temperature 98.0 F 11/29/18 10:00 Pulse Rate 100 H 11/29/18 10:00 Respiratory Rate 20 11/29/18 10:00 Blood Pressure 158/92 11/29/18 10:00 O2 Sat by Pulse Oximetry (%) 94 L 11/29/18 09:00 Constitutional: Yes: Anxious, Severe Distress, Other (depression) Eyes: Yes: WNL HENT: Yes: WNL Neck: Yes: WNL Cardiovascular: Yes: Tachycardia, S1, S2, S4 Respiratory: Yes: Poor Air Entry, SOB Gastrointestinal: Yes: Soft ...Rectal Exam: Yes: Deferred Genitourinary: No: Anuria Breast(s): Yes: WNL Musculoskeletal: Yes: Muscle Weakness Extremities: Yes: Cool Edema: No Peripheral Pulses WNL: Yes Integumentary: Yes: WNL Neurological: Yes: Alert, Oriented, Weakness Psychiatric: Yes: Alert, Other (anxiety/depression) Labs: CBC, BMP 11/28/18 06:15 11/28/18 06:15 INR, PTT INR 1.13 (0.83-1.09) H 11/23/18 03:38 Problem List - Problems (1) HLD (hyperlipidemia) Code(s): E78.5 - HYPERLIPIDEMIA, UNSPECIFIED (2) Stage 4 lung cancer Assessment/Plan: extensive bilateral lung masses with liver metastases. 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 Pain management. Keep comfortable. Pt A&Ox3; only relatively comfortable position is sitting upright in bed with legs horizontal. C/o trying to bring up phlegm, but unable to do so alone; requests chest physiotherapy. Code(s): C34.90 - MALIGNANT NEOPLASM OF UNSP PART OF UNSP BRONCHUS OR LUNG Qualifiers: Laterality: unspecified laterality Qualified Code(s): C34.90 - Malignant neoplasm of unspecified part of unspecified bronchus or lung (3) HTN (hypertension) Assessment/Plan: On losartan, amlodipine, and furosemide. ECHO: normal LVEF. Would reduce or discontinue furosemide (rising BUN; SOB primarily due to overwhemling lung CA). Code(s): I10 - ESSENTIAL (PRIMARY) HYPERTENSION Qualifiers: Hypertension type: unspecified Qualified Code(s): I10 - Essential (primary ) hypertension (4) Acute on chronic diastolic CHF (congestive heart failure) Assessment/Plan: On losartan, amlodipine, furosemide. Avoid excessive dehydration; consider reducing or discontinuing furosemide( rising BUN; SOB primarily due to extensive lung CA). F/u BUn/Cr, electrolytes, daily wt, Is and os. Code(s): I50.33 - ACUTE ON CHRONIC DIASTOLIC (CONGESTIVE) HEART FAILURE (5) Hypoalbuminemia Code(s): E88.09 - OTH DISORDERS OF PLASMA-PROTEIN METABOLISM, NEC (6) Elevated troponin Assessment/Plan: mildly elevated TNI (0.13); was as high as 0.44 on admission in October. While CAD cannot be excluded (long hx cigarettes; HTN; hyperlipidemia), pt has multiple factors contributing to demand ischemia, including CA disease process with respiratory failure, CHF, tachycardia, F/u serially; given advanced state of cancer, would treat conservatively. Code(s): R74.8 - ABNORMAL LEVELS OF OTHER SERUM ENZYMES (7) Elevated lactic acid level Code(s): R79.89 - OTHER SPECIFIED ABNORMAL FINDINGS OF BLOOD CHEMISTRY
[2018-11-29] MEDS: LEFLUNOMIDE 10 MG TABLET PO SCH (13:56)
[2018-11-29] MEDS: traMADol HCL 50 MG TABLET PO PRN (22:57)
[2018-11-30] MEDS: INSULIN SLIDING SCALE (NOVOLOG) 1 VIAL SQ SCH ×4 (06:49→22:24)
[2018-11-30] MEDS: FUROSEMIDE 40 MG/4 ML INJECTABLE VIAL IVPUSH SCH (06:51)
[2018-11-30] MEDS: ALBUTEROL SO4 2.5/IPRATROPIUM 0.5 INH SOL 3 ML VIAL.NEB. NEB SCH ×4 (07:26→20:20)
[2018-11-30] MEDS: ATOVAQUONE 750 MG/5 ML (UNIT-DOSE PACKAGING) PO SCH (09:57)
[2018-11-30] MEDS: ASPIRIN COATED 81 MG TABLET.EC PO SCH (09:58)
[2018-11-30] MEDS: LOSARTAN POTASSIUM 50 MG TABLET (FP) PO SCH (09:58)
[2018-11-30] MEDS: PANTOPRAZOLE 40 MG TABLET (FP) PO SCH (09:58)
[2018-11-30] MEDS: busPIRone HCL 5 MG TABLET PO SCH ×2 (09:58→22:10)
[2018-11-30] MEDS: amLODIPine BESYLATE 5 MG TABLET (FP) PO SCH (09:58)
[2018-11-30] MEDS: HEPARIN NA (PORCINE) 5,000 UNITS/ML 1ML VIAL SQ SCH ×2 (09:58→22:10)
[2018-11-30] MEDS: ESCITALOPRAM OXALATE 10 MG TABLET (FP) PO SCH (09:58)
[2018-11-30] MEDS: methylPREDNISolone NA SUCC 40 MG/1 ML VIAL IVPUSH SCH ×2 (10:00→22:09)
[2018-11-30] MEDS: LEFLUNOMIDE 10 MG TABLET PO SCH (10:01)
--- NOTE | 2018-11-30 13:53 | PN ---
Progress Note, Physician History of Present Illness: PULMONARY ALERT,STILL SOB WITH MIN EXERTION,+DRY COUGH - Current Medication List Current Medications: Active Medications Acetaminophen (Tylenol -) 650 mg PO Q4H PRN PRN Reason: PAIN OR FEVER Albuterol Sulfate (Ventolin 0.083% Nebulizer Soln -) 1 amp NEB RQ4H PRN PRN Reason: SHORT OF BREATH/WHEEZING Last Admin: 11/29/18 04:39 Dose: 1 amp Albuterol/Ipratropium (Duoneb -) 1 amp NEB RQID [facility] Last Admin: 11/30/18 11:23 Dose: 1 amp Alprazolam (Xanax) 1 mg PO Q12H PRN PRN Reason: ANXIETY Last Admin: 11/29/18 22:21 Dose: 1 mg Amlodipine Besylate (Norvasc -) 5 mg PO DAILY [facility] Last Admin: 11/30/18 09:58 Dose: 5 mg Aspirin (Ecotrin -) 81 mg PO DAILY [facility] Last Admin: 11/30/18 09:58 Dose: 81 mg Atovaquone (Mepron -) 1,500 mg PO DAILY@0800 [facility] Last Admin: 11/30/18 09:57 Dose: 1,500 mg Buspirone HCl (Buspar -) 5 mg PO BID [facility] Last Admin: 11/30/18 09:58 Dose: 5 mg Escitalopram Oxalate (Lexapro -) 10 mg PO DAILY [facility] Last Admin: 11/30/18 09:58 Dose: 10 mg Furosemide (Lasix Injection -) 40 mg IVPUSH DAILY@0600 [facility] Last Admin: 11/30/18 06:51 Dose: 40 mg Heparin Sodium (Porcine) (Heparin -) 5,000 unit SQ BID [facility] Last Admin: 11/30/18 09:58 Dose: 5,000 unit Insulin Aspart (Novolog Vial Sliding Scale -) 1 vial SQ ACHS [facility]; Protocol Last Admin: 11/30/18 11:45 Dose: Not Given Leflunomide (Arava -) 20 mg PO DAILY [facility] Last Admin: 11/30/18 10:01 Dose: 20 mg Losartan Potassium (Cozaar -) 100 mg PO DAILY [facility] Last Admin: 11/30/18 09:58 Dose: 100 mg Methylprednisolone Sodium Succinate (Solu-Medrol -) 40 mg IVPUSH BID [facility] Last Admin: 11/30/18 10:00 Dose: 40 mg Metoprolol Succinate (Toprol Xl -) 50 mg PO DAILY [facility] Last Admin: 11/30/18 09:58 Dose: 50 mg Pantoprazole Sodium (Protonix -) 40 mg PO DAILY [facility] Last Admin: 11/30/18 09:58 Dose: 40 mg Sulfasalazine (Azulfidine En-Tabs -) 1,000 mg PO BID [facility] Last Admin: 11/30/18 09:57 Dose: 1,000 mg Tramadol HCl (Ultram -) 50 mg PO Q6H PRN PRN Reason: PAIN LEVEL 6-10 Last Admin: 11/29/18 22:57 Dose: 50 mg Zolpidem Tartrate (Ambien -) 5 mg PO HS PRN PRN Reason: INSOMNIA - Objective Vital Signs: Vital Signs Temperature 97.5 F L 11/30/18 10:00 Pulse Rate 103 H 11/30/18 10:00 Respiratory Rate 20 11/30/18 10:00 Blood Pressure 141/81 11/30/18 10:00 O2 Sat by Pulse Oximetry (%) 95 11/30/18 09:00 Constitutional: Yes: Well Nourished, Calm Eyes: Yes: WNL HENT: Yes: WNL Neck: Yes: WNL Cardiovascular: Yes: Regular Rate and Rhythm, S1, S2 Respiratory: Yes: Diminished, Rhonchi (FEW RHONCHI) Gastrointestinal: Yes: Normal Bowel Sounds, Soft Extremities: Yes: WNL Edema: Yes Labs: CBC, BMP 11/28/18 06:15 11/28/18 06:15 INR, PTT INR 1.13 (0.83-1.09) H 11/23/18 03:38 Problem List - Problems (1) COPD exacerbation Code(s): J44.1 - CHRONIC OBSTRUCTIVE PULMONARY DISEASE W (ACUTE) EXACERBATION (2) COPD with acute exacerbation Code(s): J44.1 - CHRONIC OBSTRUCTIVE PULMONARY DISEASE W (ACUTE) EXACERBATION (3) Elevated lactic acid level Code(s): R79.89 - OTHER SPECIFIED ABNORMAL FINDINGS OF BLOOD CHEMISTRY (4) HLD (hyperlipidemia) Code(s): E78.5 - HYPERLIPIDEMIA, UNSPECIFIED (5) Stage 4 lung cancer Code(s): C34.90 - MALIGNANT NEOPLASM OF UNSP PART OF UNSP BRONCHUS OR LUNG Qualifiers: Laterality: unspecified laterality Qualified Code(s): C34.90 - Malignant neoplasm of unspecified part of unspecified bronchus or lung (6) HTN (hypertension) Code(s): I10 - ESSENTIAL (PRIMARY) HYPERTENSION Qualifiers: Hypertension type: unspecified Qualified Code(s): I10 - Essential (primary ) hypertension (7) Acute on chronic respiratory failure with hypoxemia Code(s): J96.21 - ACUTE AND CHRONIC RESPIRATORY FAILURE WITH HYPOXIA (8) Diabetes Code(s): E11.9 - TYPE 2 DIABETES MELLITUS WITHOUT COMPLICATIONS Qualifiers: Diabetes mellitus complication status: without complication (9) GERD (gastroesophageal reflux disease) Code(s): K21.9 - GASTRO-ESOPHAGEAL REFLUX DISEASE WITHOUT ESOPHAGITIS (10) Lactic acid acidosis Code(s): E87.2 - ACIDOSIS (11) Metastatic lung cancer (metastasis from lung to other site) Code(s): C34.90 - MALIGNANT NEOPLASM OF UNSP PART OF UNSP BRONCHUS OR LUNG (12) Rheumatoid arthritis Code(s): M06.9 - RHEUMATOID ARTHRITIS, UNSPECIFIED (13) Shortness of breath Code(s): R06.02 - SHORTNESS OF BREATH Assessment/Plan IMP ACUTE ON CHRONIC HYPOXEMIC/HYPERCAPNEIC RESPIRATORY FAILURE improving COPD WITH ACUTE EXACERBATION improving ADVANCED METASTATIC LUNG CA ELEVATED LACTATE LEVEL HTN CHF HLD RA PLAN IV STEROIDS INHALED BRONCHODILATORS O2 LASIX F/U CHEST X-RAYS CHEST PT DR KERR Problem List - Problems (1) COPD exacerbation Code(s): J44.1 - CHRONIC OBSTRUCTIVE PULMONARY DISEASE W (ACUTE) EXACERBATION (2) COPD with acute exacerbation Code(s): J44.1 - CHRONIC OBSTRUCTIVE PULMONARY DISEASE W (ACUTE) EXACERBATION (3) Elevated lactic acid level Code(s): R79.89 - OTHER SPECIFIED ABNORMAL FINDINGS OF BLOOD CHEMISTRY (4) HLD (hyperlipidemia) Code(s): E78.5 - HYPERLIPIDEMIA, UNSPECIFIED (5) Stage 4 lung cancer Code(s): C34.90 - MALIGNANT NEOPLASM OF UNSP PART OF UNSP BRONCHUS OR LUNG Qualifiers: Laterality: unspecified laterality Qualified Code(s): C34.90 - Malignant neoplasm of unspecified part of unspecified bronchus or lung (6) HTN (hypertension) Code(s): I10 - ESSENTIAL (PRIMARY) HYPERTENSION Qualifiers: Hypertension type: unspecified Qualified Code(s): I10 - Essential (primary ) hypertension (7) Acute on chronic respiratory failure with hypoxemia Code(s): J96.21 - ACUTE AND CHRONIC RESPIRATORY FAILURE WITH HYPOXIA (8) Diabetes Code(s): E11.9 - TYPE 2 DIABETES MELLITUS WITHOUT COMPLICATIONS Qualifiers: Diabetes mellitus complication status: without complication (9) GERD (gastroesophageal reflux disease) Code(s): K21.9 - GASTRO-ESOPHAGEAL REFLUX DISEASE WITHOUT ESOPHAGITIS (10) Lactic acid acidosis Code(s): E87.2 - ACIDOSIS (11) Metastatic lung cancer (metastasis from lung to other site) Code(s): C34.90 - MALIGNANT NEOPLASM OF UNSP PART OF UNSP BRONCHUS OR LUNG (12) Rheumatoid arthritis Code(s): M06.9 - RHEUMATOID ARTHRITIS, UNSPECIFIED (13) Shortness of breath Code(s): R06.02 - SHORTNESS OF BREATH
--- NOTE | 2018-11-30 17:18 | PN ---
Progress Note, Physician Chief Complaint: SOB Stage 4 Lung CA History of Present Illness: Previous notes and events reviewed awake and alert NAD complain of intermittent episodes of SOB denies chest pain - Current Medication List Current Medications: Active Medications Acetaminophen (Tylenol -) 650 mg PO Q4H PRN PRN Reason: PAIN OR FEVER Albuterol Sulfate (Ventolin 0.083% Nebulizer Soln -) 1 amp NEB RQ4H PRN PRN Reason: SHORT OF BREATH/WHEEZING Last Admin: 11/29/18 04:39 Dose: 1 amp Albuterol/Ipratropium (Duoneb -) 1 amp NEB RQID [facility] Last Admin: 11/30/18 15:47 Dose: 1 amp Alprazolam (Xanax) 1 mg PO Q12H PRN PRN Reason: ANXIETY Last Admin: 11/29/18 22:21 Dose: 1 mg Amlodipine Besylate (Norvasc -) 5 mg PO DAILY [facility] Last Admin: 11/30/18 09:58 Dose: 5 mg Aspirin (Ecotrin -) 81 mg PO DAILY [facility] Last Admin: 11/30/18 09:58 Dose: 81 mg Atovaquone (Mepron -) 1,500 mg PO DAILY@0800 [facility] Last Admin: 11/30/18 09:57 Dose: 1,500 mg Buspirone HCl (Buspar -) 5 mg PO BID [facility] Last Admin: 11/30/18 09:58 Dose: 5 mg Escitalopram Oxalate (Lexapro -) 10 mg PO DAILY [facility] Last Admin: 11/30/18 09:58 Dose: 10 mg Furosemide (Lasix Injection -) 40 mg IVPUSH DAILY@0600 [facility] Last Admin: 11/30/18 06:51 Dose: 40 mg Heparin Sodium (Porcine) (Heparin -) 5,000 unit SQ BID [facility] Last Admin: 11/30/18 09:58 Dose: 5,000 unit Insulin Aspart (Novolog Vial Sliding Scale -) 1 vial SQ ACHS [facility]; Protocol Last Admin: 11/30/18 16:53 Dose: Not Given Leflunomide (Arava -) 20 mg PO DAILY [facility] Last Admin: 11/30/18 10:01 Dose: 20 mg Losartan Potassium (Cozaar -) 100 mg PO DAILY [facility] Last Admin: 11/30/18 09:58 Dose: 100 mg Methylprednisolone Sodium Succinate (Solu-Medrol -) 40 mg IVPUSH BID [facility] Last Admin: 11/30/18 10:00 Dose: 40 mg Metoprolol Succinate (Toprol Xl -) 50 mg PO DAILY [facility] Last Admin: 11/30/18 09:58 Dose: 50 mg Pantoprazole Sodium (Protonix -) 40 mg PO DAILY [facility] Last Admin: 11/30/18 09:58 Dose: 40 mg Sulfasalazine (Azulfidine En-Tabs -) 1,000 mg PO BID [facility] Last Admin: 11/30/18 09:57 Dose: 1,000 mg Tramadol HCl (Ultram -) 50 mg PO Q6H PRN PRN Reason: PAIN LEVEL 6-10 Last Admin: 11/29/18 22:57 Dose: 50 mg Zolpidem Tartrate (Ambien -) 5 mg PO HS PRN PRN Reason: INSOMNIA - Objective Vital Signs: Vital Signs Temperature 97.5 F L 11/30/18 10:00 Pulse Rate 103 H 11/30/18 10:00 Respiratory Rate 20 11/30/18 10:00 Blood Pressure 141/81 11/30/18 10:00 O2 Sat by Pulse Oximetry (%) 95 11/30/18 09:00 Constitutional: Yes: No Distress, Calm Eyes: Yes: Conjunctiva Clear HENT: Yes: Atraumatic Cardiovascular: Yes: Regular Rate and Rhythm Respiratory: Yes: Regular, Cough, Diminished, On Nasal O2 Gastrointestinal: Yes: Normal Bowel Sounds, Soft Genitourinary: Yes: Incontinence Musculoskeletal: Yes: Muscle Weakness Extremities: Yes: WNL Edema: No Neurological: Yes: Alert, Oriented Psychiatric: Yes: Alert, Oriented Labs: CBC, BMP 11/28/18 06:15 11/28/18 06:15 INR, PTT INR 1.13 (0.83-1.09) H 11/23/18 03:38 Microbiology 11/23/18 03:38 Blood - Peripheral Venous Blood Culture - Final NO GROWTH AFTER 5 DAYS INCUBATION 11/23/18 03:38 Blood - Peripheral Venous Blood Culture - Final NO GROWTH AFTER 5 DAYS INCUBATION Problem List - Problems (1) COPD with acute exacerbation Assessment/Plan: -Pulm on board -O2 via NC -keep SpO2 >90% -IV Medrol -Bronchodilators Code(s): J44.1 - CHRONIC OBSTRUCTIVE PULMONARY DISEASE W (ACUTE) EXACERBATION (2) Stage 4 lung cancer Assessment/Plan: -Pulm on board -O2 via NC -keep SpO2 >90% -IV Medrol -Bronchodilators -Oncology on board -Arava Code(s): C34.90 - MALIGNANT NEOPLASM OF UNSP PART OF UNSP BRONCHUS OR LUNG Qualifiers: Laterality: unspecified laterality Qualified Code(s): C34.90 - Malignant neoplasm of unspecified part of unspecified bronchus or lung (3) HTN (hypertension) Assessment/Plan: -Norvasc, Cozaar, Toprol -low Na diet Code(s): I10 - ESSENTIAL (PRIMARY) HYPERTENSION Qualifiers: Hypertension type: unspecified Qualified Code(s): I10 - Essential (primary ) hypertension (4) Acute on chronic respiratory failure with hypoxemia Assessment/Plan: -Pulm on board -O2 via NC -keep SpO2 >90% -IV Medrol -Bronchodilators Code(s): J96.21 - ACUTE AND CHRONIC RESPIRATORY FAILURE WITH HYPOXIA (5) Diabetes Assessment/Plan: [facility] Code(s): E11.9 - TYPE 2 DIABETES MELLITUS WITHOUT COMPLICATIONS Qualifiers: Diabetes mellitus complication status: without complication (6) GERD (gastroesophageal reflux disease) Assessment/Plan: -Pantoprazole Code(s): K21.9 - GASTRO-ESOPHAGEAL REFLUX DISEASE WITHOUT ESOPHAGITIS (7) Metastatic lung cancer (metastasis from lung to other site) Assessment/Plan: -Pulm on board -O2 via NC -keep SpO2 >90% -IV Medrol -Bronchodilators -Oncology on board -Arava Code(s): C34.90 - MALIGNANT NEOPLASM OF UNSP PART OF UNSP BRONCHUS OR LUNG (8) Anxiety Assessment/Plan: -Lexapro, Buspar Code(s): F41.9 - ANXIETY DISORDER, UNSPECIFIED (9) CHF exacerbation Assessment/Plan: -Pulm on board -Lasix -daily weights -keep SpO2 >90% Code(s): I50.9 - HEART FAILURE, UNSPECIFIED Assessment/Plan see problem list dvt ppx DNR/DNI begin d/c planning when switched to PO steroids
[2018-11-30] MEDS ORDERED: PT OWN MED DRAWER 7, Y5N ONE (21:46)
[2018-11-30] MEDS: ALPRAZolam 1 MG TABLET PO PRN (22:23)
[2018-11-30] MEDS: traMADol HCL 50 MG TABLET PO PRN (22:23)
[2018-12-01] MEDS: FUROSEMIDE 40 MG/4 ML INJECTABLE VIAL IVPUSH SCH (06:10)
[2018-12-01] MEDS: INSULIN SLIDING SCALE (NOVOLOG) 1 VIAL SQ SCH ×4 (06:38→21:55)
[2018-12-01] MEDS: ALBUTEROL SO4 2.5/IPRATROPIUM 0.5 INH SOL 3 ML VIAL.NEB. NEB SCH ×4 (07:31→19:40)
--- NOTE | 2018-12-01 07:40 | PN ---
Progress Note, Physician Chief Complaint: Pt is alert; sitting up in bed; had multiple visitors; says she still cannot bring up phlegm, though "cupping therapy" helps; short of breath; depressed. History of Present Illness: Ms. Fulton is a 73 year old black woman with a past medical history of stage 4 lung cancer (s/p right upper lobe removal, currently on immunotherapy), COPD ( 5L at home), diastolic CHF ([facility] 10/2018: normal LVEF; abnormal diastrolic compliance;small pericardial effusion), ,moderate pulmonary HTN, here today for evaluation of shortness of breath and bilateral LE edema that worsened over the past 48 hours. She notes acute on chronic SOB tonight despite nebulizer use at her Alf. States she usually feels better with 1-2 breathing treatments and steroids. Patient denies headache, lightheadedness. Denies fever, chills. Denies chest pain. - Current Medication List Current Medications: Active Medications Acetaminophen (Tylenol -) 650 mg PO Q4H PRN PRN Reason: PAIN OR FEVER Albuterol Sulfate (Ventolin 0.083% Nebulizer Soln -) 1 amp NEB RQ4H PRN PRN Reason: SHORT OF BREATH/WHEEZING Last Admin: 11/29/18 04:39 Dose: 1 amp Albuterol/Ipratropium (Duoneb -) 1 amp NEB RQID [facility] Last Admin: 12/01/18 07:31 Dose: 1 amp Alprazolam (Xanax) 1 mg PO Q12H PRN PRN Reason: ANXIETY Last Admin: 11/30/18 22:23 Dose: 1 mg Amlodipine Besylate (Norvasc -) 5 mg PO DAILY [facility] Last Admin: 11/30/18 09:58 Dose: 5 mg Aspirin (Ecotrin -) 81 mg PO DAILY [facility] Last Admin: 11/30/18 09:58 Dose: 81 mg Atovaquone (Mepron -) 1,500 mg PO DAILY@0800 [facility] Last Admin: 11/30/18 09:57 Dose: 1,500 mg Buspirone HCl (Buspar -) 5 mg PO BID [facility] Last Admin: 11/30/18 22:10 Dose: 5 mg Escitalopram Oxalate (Lexapro -) 10 mg PO DAILY [facility] Last Admin: 11/30/18 09:58 Dose: 10 mg Furosemide (Lasix Injection -) 40 mg IVPUSH DAILY@0600 [facility] Last Admin: 12/01/18 06:10 Dose: 40 mg Heparin Sodium (Porcine) (Heparin -) 5,000 unit SQ BID [facility] Last Admin: 11/30/18 22:10 Dose: 5,000 unit Insulin Aspart (Novolog Vial Sliding Scale -) 1 vial SQ ACHS [facility]; Protocol Last Admin: 12/01/18 06:38 Dose: Not Given Leflunomide (Arava -) 20 mg PO DAILY [facility] Last Admin: 11/30/18 10:01 Dose: 20 mg Losartan Potassium (Cozaar -) 100 mg PO DAILY [facility] Last Admin: 11/30/18 09:58 Dose: 100 mg Methylprednisolone Sodium Succinate (Solu-Medrol -) 40 mg IVPUSH BID [facility] Last Admin: 11/30/18 22:09 Dose: 40 mg Metoprolol Succinate (Toprol Xl -) 50 mg PO DAILY [facility] Last Admin: 11/30/18 09:58 Dose: 50 mg Pantoprazole Sodium (Protonix -) 40 mg PO DAILY [facility] Last Admin: 11/30/18 09:58 Dose: 40 mg Sulfasalazine (Azulfidine En-Tabs -) 1,000 mg PO BID [facility] Last Admin: 11/30/18 22:10 Dose: 1,000 mg Tramadol HCl (Ultram -) 50 mg PO Q6H PRN PRN Reason: PAIN LEVEL 6-10 Last Admin: 11/30/18 22:23 Dose: 50 mg Zolpidem Tartrate (Ambien -) 5 mg PO HS PRN PRN Reason: INSOMNIA - Objective Vital Signs: Vital Signs Temperature 98.0 F 12/01/18 05:53 Pulse Rate 106 H 12/01/18 05:53 Respiratory Rate 20 12/01/18 05:53 Blood Pressure 138/85 12/01/18 05:53 O2 Sat by Pulse Oximetry (%) 95 11/30/18 21:00 Constitutional: Yes: Anxious Eyes: Yes: WNL HENT: Yes: WNL Neck: Yes: WNL Cardiovascular: Yes: Tachycardia, S1, S2, S4 Respiratory: Yes: Diminished, SOB, Tachypnea Gastrointestinal: Yes: Soft ...Rectal Exam: Yes: Deferred Genitourinary: No: Anuria Breast(s): Yes: WNL Musculoskeletal: Yes: Joint Stiffness, Muscle Weakness Extremities: Yes: Cool Edema: No Peripheral Pulses WNL: Yes Integumentary: Yes: WNL Neurological: Yes: Alert, Oriented, Weakness Psychiatric: Yes: Alert, Oriented, Other (depression) Labs: CBC, BMP 11/28/18 06:15 11/28/18 06:15 INR, PTT INR 1.13 (0.83-1.09) H 11/23/18 03:38 - ....Imaging Chest X-ray: Image Reviewed EKG: Image Reviewed Problem List - Problems (1) HLD (hyperlipidemia) Code(s): E78.5 - HYPERLIPIDEMIA, UNSPECIFIED (2) Stage 4 lung cancer Assessment/Plan: extensive bilateral lung masses with liver metastases. Rx per oncologit, station engineer main line. Pain management. Keep comfortable. Pt A&Ox3; only relatively comfortable position is sitting upright in bed with legs horizontal. C/o trying to bring up phlegm, but unable to do so alone; requests chest physiotherapy. Code(s): C34.90 - MALIGNANT NEOPLASM OF UNSP PART OF UNSP BRONCHUS OR LUNG Qualifiers: Laterality: unspecified laterality Qualified Code(s): C34.90 - Malignant neoplasm of unspecified part of unspecified bronchus or lung (3) HTN (hypertension) Assessment/Plan: On losartan and metoprolol; will discontinue furosemide (rising BUN/Cr). ECHO: normal LVEF. Code(s): I10 - ESSENTIAL (PRIMARY) HYPERTENSION Qualifiers: Hypertension type: unspecified Qualified Code(s): I10 - Essential (primary ) hypertension (4) Acute on chronic diastolic CHF (congestive heart failure) Assessment/Plan: On losartan, amlodipine, furosemide. Avoid excessive dehydration; will discontinue furosemide(rising BUN; no JVD; SOB primarily due to extensive lung CA; repeat CXR if necessary--some pleural fluid noted initially). F/u BUn/Cr, electrolytes, daily wt, Is and Os. Code(s): I50.33 - ACUTE ON CHRONIC DIASTOLIC (CONGESTIVE) HEART FAILURE (5) Hypoalbuminemia Code(s): E88.09 - OTH DISORDERS OF PLASMA-PROTEIN METABOLISM, NEC (6) Elevated troponin Assessment/Plan: mildly elevated TNI (0.13); was as high as 0.44 on admission in October. While CAD cannot be excluded (long hx cigarettes; HTN; hyperlipidemia), pt has multiple factors contributing to demand ischemia, including CA disease process with respiratory failure, CHF, tachycardia, F/u serially; given advanced state of cancer, would treat conservatively. Code(s): R74.8 - ABNORMAL LEVELS OF OTHER SERUM ENZYMES (7) Elevated lactic acid level Code(s): R79.89 - OTHER SPECIFIED ABNORMAL FINDINGS OF BLOOD CHEMISTRY
[2018-12-01 08:42] LABS: HEMATOCRIT 34.4 % (32.4-45.2); HEMOGLOBIN 11.2 GM/dL (10.7-15.3); MCH 30.6 pg (25.7-33.7); MCHC 32.6 g/dl (32.0-36.0); MEAN CELL VOLUME 93.8 fl (80-96); PLATELET COUNT 170 K/MM3 (134-434); RBC 3.66 M/mm3 (3.60-5.2); RDW 18.8 % (11.6-15.6); WHITE BLOOD COUNT 8.4 K/mm3 (4.0-10.0)
[2018-12-01 08:53] LABS: ALBUMIN 3.1 g/dl (3.4-5.0); BILIRUBIN,TOTAL 0.8 mg/dL (0.2-1); BLOOD UREA NITROGEN 47.7 mg/dL (7-18); CALCIUM 9.3 mg/dL (8.5-10.1); CREATININE 1.4 mg/dL (0.55-1.3); POTASSIUM 4.6 mmol/L (3.5-5.1); TOT PROT 6.1 g/dl (6.4-8.2)
[2018-12-01] MEDS ORDERED: PT OWN MED DRAWER 7, Y5N ONE ×4 (09:35→21:10)
[2018-12-01] MEDS: LEFLUNOMIDE 10 MG TABLET PO SCH (11:15)
[2018-12-01] MEDS: PANTOPRAZOLE 40 MG TABLET (FP) PO SCH (11:16)
[2018-12-01] MEDS: LOSARTAN POTASSIUM 50 MG TABLET (FP) PO SCH (11:16)
[2018-12-01] MEDS: amLODIPine BESYLATE 5 MG TABLET (FP) PO SCH (11:16)
[2018-12-01] MEDS: ASPIRIN COATED 81 MG TABLET.EC PO SCH (11:17)
[2018-12-01] MEDS: HEPARIN NA (PORCINE) 5,000 UNITS/ML 1ML VIAL SQ SCH ×2 (11:17→21:47)
[2018-12-01] MEDS: ESCITALOPRAM OXALATE 10 MG TABLET (FP) PO SCH (11:17)
[2018-12-01] MEDS: busPIRone HCL 5 MG TABLET PO SCH ×2 (11:18→21:47)
[2018-12-01] MEDS: methylPREDNISolone NA SUCC 40 MG/1 ML VIAL IVPUSH SCH ×2 (11:18→21:47)
[2018-12-01] MEDS: ATOVAQUONE 750 MG/5 ML (UNIT-DOSE PACKAGING) PO SCH (11:18)
--- NOTE | 2018-12-01 11:50 | PN ---
Progress Note, Physician - Current Medication List Current Medications: Active Medications Acetaminophen (Tylenol -) 650 mg PO Q4H PRN PRN Reason: PAIN OR FEVER Albuterol Sulfate (Ventolin 0.083% Nebulizer Soln -) 1 amp NEB RQ4H PRN PRN Reason: SHORT OF BREATH/WHEEZING Last Admin: 11/29/18 04:39 Dose: 1 amp Albuterol/Ipratropium (Duoneb -) 1 amp NEB RQID [facility] Last Admin: 12/01/18 11:22 Dose: 1 amp Alprazolam (Xanax) 1 mg PO Q12H PRN PRN Reason: ANXIETY Last Admin: 11/30/18 22:23 Dose: 1 mg Amlodipine Besylate (Norvasc -) 5 mg PO DAILY [facility] Last Admin: 12/01/18 11:16 Dose: 5 mg Aspirin (Ecotrin -) 81 mg PO DAILY [facility] Last Admin: 12/01/18 11:17 Dose: 81 mg Atovaquone (Mepron -) 1,500 mg PO DAILY@0800 [facility] Last Admin: 12/01/18 11:18 Dose: 1,500 mg Buspirone HCl (Buspar -) 5 mg PO BID [facility] Last Admin: 12/01/18 11:18 Dose: 5 mg Escitalopram Oxalate (Lexapro -) 10 mg PO DAILY [facility] Last Admin: 12/01/18 11:17 Dose: 10 mg Heparin Sodium (Porcine) (Heparin -) 5,000 unit SQ BID [facility] Last Admin: 12/01/18 11:17 Dose: 5,000 unit Insulin Aspart (Novolog Vial Sliding Scale -) 1 vial SQ [facility]; Protocol Last Admin: 12/01/18 11:24 Dose: Not Given Leflunomide (Arava -) 20 mg PO DAILY [facility] Last Admin: 12/01/18 11:15 Dose: 20 mg Losartan Potassium (Cozaar -) 100 mg PO DAILY [facility] Last Admin: 12/01/18 11:16 Dose: 100 mg Methylprednisolone Sodium Succinate (Solu-Medrol -) 40 mg IVPUSH BID [facility] Last Admin: 12/01/18 11:18 Dose: 40 mg Metoprolol Succinate (Toprol Xl -) 50 mg PO DAILY [facility] Last Admin: 12/01/18 11:16 Dose: 50 mg Pantoprazole Sodium (Protonix -) 40 mg PO DAILY [facility] Last Admin: 12/01/18 11:16 Dose: 40 mg Sulfasalazine (Azulfidine En-Tabs -) 1,000 mg PO BID [facility] Last Admin: 12/01/18 11:15 Dose: 1,000 mg Tramadol HCl (Ultram -) 50 mg PO Q6H PRN PRN Reason: PAIN LEVEL 6-10 Last Admin: 11/30/18 22:23 Dose: 50 mg Zolpidem Tartrate (Ambien -) 5 mg PO HS PRN PRN Reason: INSOMNIA - Objective Vital Signs: Vital Signs Temperature 98 F 12/01/18 09:00 Pulse Rate 100 H 12/01/18 09:00 Respiratory Rate 20 12/01/18 09:00 Blood Pressure 124/98 12/01/18 09:00 O2 Sat by Pulse Oximetry (%) 95 12/01/18 09:00 Cardiovascular: Yes: S1, S2 Respiratory: Yes: Rales, Rhonchi Gastrointestinal: Yes: Normal Bowel Sounds, Soft Labs: CBC, BMP 12/01/18 06:48 12/01/18 06:48 INR, PTT INR 1.13 (0.83-1.09) H 11/23/18 03:38 Assessment/Plan - Problems (1) COPD with acute exacerbation Assessment/Plan: -Pulm on board -O2 via NC -keep SpO2 >90% -IV Medrol -Bronchodilators Code(s): J44.1 - CHRONIC OBSTRUCTIVE PULMONARY DISEASE W (ACUTE) EXACERBATION (2) Stage 4 lung cancer Assessment/Plan: -Pulm on board -O2 via NC -keep SpO2 >90% -IV Medrol -Bronchodilators -Oncology on board -Arava Code(s): C34.90 - MALIGNANT NEOPLASM OF UNSP PART OF UNSP BRONCHUS OR LUNG Qualifiers: Laterality: unspecified laterality Qualified Code(s): C34.90 - Malignant neoplasm of unspecified part of unspecified bronchus or lung (3) HTN (hypertension) Assessment/Plan: -Norvasc, Cozaar, Toprol -low Na diet Code(s): I10 - ESSENTIAL (PRIMARY) HYPERTENSION Qualifiers: Hypertension type: unspecified Qualified Code(s): I10 - Essential (primary ) hypertension (4) Acute on chronic respiratory failure with hypoxemia Assessment/Plan: -Pulm on board -O2 via NC -keep SpO2 >90% -IV Medrol -Bronchodilators Code(s): J96.21 - ACUTE AND CHRONIC RESPIRATORY FAILURE WITH HYPOXIA (5) Diabetes Assessment/Plan: -BGM ACBK -ISS Code(s): E11.9 - TYPE 2 DIABETES MELLITUS WITHOUT COMPLICATIONS Qualifiers: Diabetes mellitus complication status: without complication (6) GERD (gastroesophageal reflux disease) Assessment/Plan: -Pantoprazole Code(s): K21.9 - GASTRO-ESOPHAGEAL REFLUX DISEASE WITHOUT ESOPHAGITIS (7) Metastatic lung cancer (metastasis from lung to other site) Assessment/Plan: -Pulm on board -O2 via NC -keep SpO2 >90% -IV Medrol -Bronchodilators -Oncology on board -Arava Code(s): C34.90 - MALIGNANT NEOPLASM OF UNSP PART OF UNSP BRONCHUS OR LUNG (8) Anxiety Assessment/Plan: -LexAnn craft Code(s): F41.9 - ANXIETY DISORDER, UNSPECIFIED (9) CHF exacerbation Assessment/Plan: -Pulm on board -Lasix -daily weights -keep SpO2 >90% Code(s): I50.9 - HEART FAILURE, UNSPECIFIED dvt ppx DNR/DNI begin d/c planning when switched to PO steroids
--- NOTE | 2018-12-01 13:26 | PN ---
Progress Note, Physician History of Present Illness: PULMONARY ALERT,DEPRESSED,SOB IMPROVING - Current Medication List Current Medications: Active Medications Acetaminophen (Tylenol -) 650 mg PO Q4H PRN PRN Reason: PAIN OR FEVER Albuterol Sulfate (Ventolin 0.083% Nebulizer Soln -) 1 amp NEB RQ4H PRN PRN Reason: SHORT OF BREATH/WHEEZING Last Admin: 11/29/18 04:39 Dose: 1 amp Albuterol/Ipratropium (Duoneb -) 1 amp NEB RQID [facility] Last Admin: 12/01/18 11:22 Dose: 1 amp Alprazolam (Xanax) 1 mg PO Q12H PRN PRN Reason: ANXIETY Last Admin: 11/30/18 22:23 Dose: 1 mg Amlodipine Besylate (Norvasc -) 5 mg PO DAILY [facility] Last Admin: 12/01/18 11:16 Dose: 5 mg Aspirin (Ecotrin -) 81 mg PO DAILY [facility] Last Admin: 12/01/18 11:17 Dose: 81 mg Atovaquone (Mepron -) 1,500 mg PO DAILY@0800 [facility] Last Admin: 12/01/18 11:18 Dose: 1,500 mg Buspirone HCl (Buspar -) 5 mg PO BID [facility] Last Admin: 12/01/18 11:18 Dose: 5 mg Escitalopram Oxalate (Lexapro -) 10 mg PO DAILY [facility] Last Admin: 12/01/18 11:17 Dose: 10 mg Heparin Sodium (Porcine) (Heparin -) 5,000 unit SQ BID [facility] Last Admin: 12/01/18 11:17 Dose: 5,000 unit Insulin Aspart (Novolog Vial Sliding Scale -) 1 vial SQ ACHS [facility]; Protocol Last Admin: 12/01/18 11:24 Dose: Not Given Leflunomide (Arava -) 20 mg PO DAILY [facility] Last Admin: 12/01/18 11:15 Dose: 20 mg Losartan Potassium (Cozaar -) 100 mg PO DAILY [facility] Last Admin: 12/01/18 11:16 Dose: 100 mg Methylprednisolone Sodium Succinate (Solu-Medrol -) 40 mg IVPUSH BID [facility] Last Admin: 12/01/18 11:18 Dose: 40 mg Metoprolol Succinate (Toprol Xl -) 50 mg PO DAILY [facility] Last Admin: 12/01/18 11:16 Dose: 50 mg Pantoprazole Sodium (Protonix -) 40 mg PO DAILY [facility] Last Admin: 12/01/18 11:16 Dose: 40 mg Sulfasalazine (Azulfidine En-Tabs -) 1,000 mg PO BID [facility] Last Admin: 12/01/18 11:15 Dose: 1,000 mg Tramadol HCl (Ultram -) 50 mg PO Q6H PRN PRN Reason: PAIN LEVEL 6-10 Last Admin: 11/30/18 22:23 Dose: 50 mg Zolpidem Tartrate (Ambien -) 5 mg PO HS PRN PRN Reason: INSOMNIA - Objective Vital Signs: Vital Signs Temperature 98 F 12/01/18 09:00 Pulse Rate 100 H 12/01/18 09:00 Respiratory Rate 20 12/01/18 09:00 Blood Pressure 124/98 12/01/18 09:00 O2 Sat by Pulse Oximetry (%) 95 12/01/18 09:00 Constitutional: Yes: Well Nourished, Calm Eyes: Yes: WNL HENT: Yes: WNL Neck: Yes: WNL Cardiovascular: Yes: Regular Rate and Rhythm, S1, S2 Respiratory: Yes: Diminished Gastrointestinal: Yes: Normal Bowel Sounds, Soft Extremities: Yes: WNL Edema: Yes Labs: CBC, BMP 12/01/18 06:48 12/01/18 06:48 INR, PTT INR 1.13 (0.83-1.09) H 11/23/18 03:38 Problem List - Problems (1) COPD exacerbation Code(s): J44.1 - CHRONIC OBSTRUCTIVE PULMONARY DISEASE W (ACUTE) EXACERBATION (2) COPD with acute exacerbation Code(s): J44.1 - CHRONIC OBSTRUCTIVE PULMONARY DISEASE W (ACUTE) EXACERBATION (3) Elevated lactic acid level Code(s): R79.89 - OTHER SPECIFIED ABNORMAL FINDINGS OF BLOOD CHEMISTRY (4) HLD (hyperlipidemia) Code(s): E78.5 - HYPERLIPIDEMIA, UNSPECIFIED (5) Stage 4 lung cancer Code(s): C34.90 - MALIGNANT NEOPLASM OF UNSP PART OF UNSP BRONCHUS OR LUNG Qualifiers: Laterality: unspecified laterality Qualified Code(s): C34.90 - Malignant neoplasm of unspecified part of unspecified bronchus or lung (6) HTN (hypertension) Code(s): I10 - ESSENTIAL (PRIMARY) HYPERTENSION Qualifiers: Hypertension type: unspecified Qualified Code(s): I10 - Essential (primary ) hypertension (7) Acute on chronic respiratory failure with hypoxemia Code(s): J96.21 - ACUTE AND CHRONIC RESPIRATORY FAILURE WITH HYPOXIA (8) Diabetes Code(s): E11.9 - TYPE 2 DIABETES MELLITUS WITHOUT COMPLICATIONS Qualifiers: Diabetes mellitus complication status: without complication (9) GERD (gastroesophageal reflux disease) Code(s): K21.9 - GASTRO-ESOPHAGEAL REFLUX DISEASE WITHOUT ESOPHAGITIS (10) Lactic acid acidosis Code(s): E87.2 - ACIDOSIS (11) Metastatic lung cancer (metastasis from lung to other site) Code(s): C34.90 - MALIGNANT NEOPLASM OF UNSP PART OF UNSP BRONCHUS OR LUNG (12) Rheumatoid arthritis Code(s): M06.9 - RHEUMATOID ARTHRITIS, UNSPECIFIED (13) Shortness of breath Code(s): R06.02 - SHORTNESS OF BREATH Assessment/Plan IMP ACUTE ON CHRONIC HYPOXEMIC/HYPERCAPNEIC RESPIRATORY FAILURE improving COPD WITH ACUTE EXACERBATION improving ADVANCED METASTATIC LUNG CA ELEVATED LACTATE LEVEL HTN CHF HLD RA PLAN IV STEROIDS INHALED BRONCHODILATORS O2 F/U CHEST X-RAYS CHEST PT DR KERR Problem List - Problems (1) COPD exacerbation Code(s): J44.1 - CHRONIC OBSTRUCTIVE PULMONARY DISEASE W (ACUTE) EXACERBATION (2) COPD with acute exacerbation Code(s): J44.1 - CHRONIC OBSTRUCTIVE PULMONARY DISEASE W (ACUTE) EXACERBATION (3) Elevated lactic acid level Code(s): R79.89 - OTHER SPECIFIED ABNORMAL FINDINGS OF BLOOD CHEMISTRY (4) HLD (hyperlipidemia) Code(s): E78.5 - HYPERLIPIDEMIA, UNSPECIFIED (5) Stage 4 lung cancer Code(s): C34.90 - MALIGNANT NEOPLASM OF UNSP PART OF UNSP BRONCHUS OR LUNG Qualifiers: Laterality: unspecified laterality Qualified Code(s): C34.90 - Malignant neoplasm of unspecified part of unspecified bronchus or lung (6) HTN (hypertension) Code(s): I10 - ESSENTIAL (PRIMARY) HYPERTENSION Qualifiers: Hypertension type: unspecified Qualified Code(s): I10 - Essential (primary ) hypertension (7) Acute on chronic respiratory failure with hypoxemia Code(s): J96.21 - ACUTE AND CHRONIC RESPIRATORY FAILURE WITH HYPOXIA (8) Diabetes Code(s): E11.9 - TYPE 2 DIABETES MELLITUS WITHOUT COMPLICATIONS Qualifiers: Diabetes mellitus complication status: without complication (9) GERD (gastroesophageal reflux disease) Code(s): K21.9 - GASTRO-ESOPHAGEAL REFLUX DISEASE WITHOUT ESOPHAGITIS (10) Lactic acid acidosis Code(s): E87.2 - ACIDOSIS (11) Metastatic lung cancer (metastasis from lung to other site) Code(s): C34.90 - MALIGNANT NEOPLASM OF UNSP PART OF UNSP BRONCHUS OR LUNG (12) Rheumatoid arthritis Code(s): M06.9 - RHEUMATOID ARTHRITIS, UNSPECIFIED (13) Shortness of breath Code(s): R06.02 - SHORTNESS OF BREATH
[2018-12-01] MEDS: traMADol HCL 50 MG TABLET PO PRN (21:46)
[2018-12-01] MEDS: ZOLPIDEM TARTRATE 5 MG TABLET PO PRN (21:47)
[2018-12-02] MEDS: INSULIN SLIDING SCALE (NOVOLOG) 1 VIAL SQ SCH ×4 (06:14→22:09)
[2018-12-02] MEDS: ALBUTEROL SO4 2.5/IPRATROPIUM 0.5 INH SOL 3 ML VIAL.NEB. NEB SCH ×4 (07:30→19:35)
[2018-12-02] MEDS: ATOVAQUONE 750 MG/5 ML (UNIT-DOSE PACKAGING) PO SCH (08:53)
[2018-12-02] MEDS: traMADol HCL 50 MG TABLET PO PRN ×2 (10:05→21:59)
[2018-12-02] MEDS: amLODIPine BESYLATE 5 MG TABLET (FP) PO SCH (10:05)
[2018-12-02] MEDS: PANTOPRAZOLE 40 MG TABLET (FP) PO SCH (10:05)
[2018-12-02] MEDS: methylPREDNISolone NA SUCC 40 MG/1 ML VIAL IVPUSH SCH ×2 (10:08→21:59)
[2018-12-02] MEDS: LOSARTAN POTASSIUM 50 MG TABLET (FP) PO SCH (10:08)
[2018-12-02] MEDS: busPIRone HCL 5 MG TABLET PO SCH ×2 (10:08→22:00)
[2018-12-02] MEDS: LEFLUNOMIDE 10 MG TABLET PO SCH (10:08)
[2018-12-02] MEDS: HEPARIN NA (PORCINE) 5,000 UNITS/ML 1ML VIAL SQ SCH ×2 (10:08→22:00)
[2018-12-02] MEDS: ASPIRIN COATED 81 MG TABLET.EC PO SCH (10:09)
[2018-12-02] MEDS: ESCITALOPRAM OXALATE 10 MG TABLET (FP) PO SCH (10:09)
--- NOTE | 2018-12-02 11:26 | PN ---
Progress Note, Physician - Current Medication List Current Medications: Active Medications Acetaminophen (Tylenol -) 650 mg PO Q4H PRN PRN Reason: PAIN OR FEVER Albuterol Sulfate (Ventolin 0.083% Nebulizer Soln -) 1 amp NEB RQ4H PRN PRN Reason: SHORT OF BREATH/WHEEZING Last Admin: 11/29/18 04:39 Dose: 1 amp Albuterol/Ipratropium (Duoneb -) 1 amp NEB RQID [facility] Last Admin: 12/02/18 11:14 Dose: 1 amp Amlodipine Besylate (Norvasc -) 5 mg PO DAILY [facility] Last Admin: 12/02/18 10:05 Dose: 5 mg Aspirin (Ecotrin -) 81 mg PO DAILY [facility] Last Admin: 12/02/18 10:09 Dose: Not Given Atovaquone (Mepron -) 1,500 mg PO DAILY@0800 [facility] Last Admin: 12/02/18 08:53 Dose: 1,500 mg Buspirone HCl (Buspar -) 5 mg PO BID [facility] Last Admin: 12/02/18 10:08 Dose: 5 mg Escitalopram Oxalate (Lexapro -) 10 mg PO DAILY [facility] Last Admin: 12/02/18 10:09 Dose: 10 mg Heparin Sodium (Porcine) (Heparin -) 5,000 unit SQ BID [facility] Last Admin: 12/02/18 10:08 Dose: 5,000 unit Insulin Aspart (Novolog Vial Sliding Scale -) 1 vial SQ [facility]; Protocol Last Admin: 12/02/18 06:14 Dose: Not Given Leflunomide (Arava -) 20 mg PO DAILY [facility] Last Admin: 12/02/18 10:08 Dose: 20 mg Losartan Potassium (Cozaar -) 100 mg PO DAILY [facility] Last Admin: 12/02/18 10:08 Dose: 100 mg Methylprednisolone Sodium Succinate (Solu-Medrol -) 40 mg IVPUSH BID [facility] Last Admin: 12/02/18 10:08 Dose: 40 mg Metoprolol Succinate (Toprol Xl -) 50 mg PO DAILY [facility] Last Admin: 12/02/18 10:08 Dose: 50 mg Pantoprazole Sodium (Protonix -) 40 mg PO DAILY [facility] Last Admin: 12/02/18 10:05 Dose: 40 mg Sulfasalazine (Azulfidine En-Tabs -) 1,000 mg PO BID [facility] Last Admin: 10/20/19 10:05 Dose: 1,000 mg Tramadol HCl (Ultram -) 50 mg PO Q6H PRN PRN Reason: PAIN LEVEL 6-10 Last Admin: 12/02/18 10:05 Dose: 50 mg Zolpidem Tartrate (Ambien -) 5 mg PO HS PRN PRN Reason: INSOMNIA Last Admin: 12/01/18 21:47 Dose: 5 mg - Objective Vital Signs: Vital Signs Temperature 97.2 F L 12/01/18 21:03 Pulse Rate 104 H 12/01/18 21:03 Respiratory Rate 21 H 12/01/18 21:03 Blood Pressure 118/68 12/01/18 21:03 O2 Sat by Pulse Oximetry (%) 94 L 12/01/18 21:00 Cardiovascular: Yes: S1, S2 Respiratory: Yes: On Nasal O2, Rhonchi Gastrointestinal: Yes: Normal Bowel Sounds, Soft Labs: CBC, BMP 12/01/18 06:48 12/01/18 06:48 INR, PTT INR 1.13 (0.83-1.09) H 11/23/18 03:38 Assessment/Plan - Problems (1) COPD with acute exacerbation Assessment/Plan: -Pulm on board -O2 via NC -keep SpO2 >90% -IV Medrol -Bronchodilators Code(s): J44.1 - CHRONIC OBSTRUCTIVE PULMONARY DISEASE W (ACUTE) EXACERBATION (2) Stage 4 lung cancer Assessment/Plan: -Pulm on board -O2 via NC -keep SpO2 >90% -IV Medrol -Bronchodilators -Oncology on board -Arava Code(s): C34.90 - MALIGNANT NEOPLASM OF UNSP PART OF UNSP BRONCHUS OR LUNG Qualifiers: Laterality: unspecified laterality Qualified Code(s): C34.90 - Malignant neoplasm of unspecified part of unspecified bronchus or lung (3) HTN (hypertension) Assessment/Plan: -Norvasc, Cozaar, Toprol -low Na diet Code(s): I10 - ESSENTIAL (PRIMARY) HYPERTENSION Qualifiers: Hypertension type: unspecified Qualified Code(s): I10 - Essential (primary ) hypertension (4) Acute on chronic respiratory failure with hypoxemia Assessment/Plan: -Pulm on board -O2 via NC -keep SpO2 >90% -IV Medrol -Bronchodilators Code(s): J96.21 - ACUTE AND CHRONIC RESPIRATORY FAILURE WITH HYPOXIA (5) Diabetes Assessment/Plan: -BGM ACBK -ISS Code(s): E11.9 - TYPE 2 DIABETES MELLITUS WITHOUT COMPLICATIONS Qualifiers: Diabetes mellitus complication status: without complication (6) GERD (gastroesophageal reflux disease) Assessment/Plan: -Pantoprazole Code(s): K21.9 - GASTRO-ESOPHAGEAL REFLUX DISEASE WITHOUT ESOPHAGITIS (7) Metastatic lung cancer (metastasis from lung to other site) Assessment/Plan: -Pulm on board -O2 via NC -keep SpO2 >90% -IV Medrol -Bronchodilators -Oncology on board -Arava Code(s): C34.90 - MALIGNANT NEOPLASM OF UNSP PART OF UNSP BRONCHUS OR LUNG (8) Anxiety Assessment/Plan: -Ann Lozano Code(s): F41.9 - ANXIETY DISORDER, UNSPECIFIED (9) CHF exacerbation Assessment/Plan: -Pulm on board -Lasix -daily weights -keep SpO2 >90% Code(s): I50.9 - HEART FAILURE, UNSPECIFIED dvt ppx DNR/DNI begin d/c planning when switched to PO steroids
--- NOTE | 2018-12-02 13:04 | PN ---
Progress Note, Physician History of Present Illness: PULMONARY AWAKE,COMFORTABLE,SOB IMPROVING DEPRESSED - Current Medication List Current Medications: Active Medications Acetaminophen (Tylenol -) 650 mg PO Q4H PRN PRN Reason: PAIN OR FEVER Albuterol Sulfate (Ventolin 0.083% Nebulizer Soln -) 1 amp NEB RQ4H PRN PRN Reason: SHORT OF BREATH/WHEEZING Last Admin: 11/29/18 04:39 Dose: 1 amp Albuterol/Ipratropium (Duoneb -) 1 amp NEB RQID [facility] Last Admin: 12/02/18 11:14 Dose: 1 amp Amlodipine Besylate (Norvasc -) 5 mg PO DAILY [facility] Last Admin: 12/02/18 10:05 Dose: 5 mg Aspirin (Ecotrin -) 81 mg PO DAILY [facility] Last Admin: 12/02/18 10:09 Dose: Not Given Atovaquone (Mepron -) 1,500 mg PO DAILY@0800 [facility] Last Admin: 12/02/18 08:53 Dose: 1,500 mg Buspirone HCl (Buspar -) 5 mg PO BID [facility] Last Admin: 12/02/18 10:08 Dose: 5 mg Escitalopram Oxalate (Lexapro -) 10 mg PO DAILY [facility] Last Admin: 12/02/18 10:09 Dose: 10 mg Heparin Sodium (Porcine) (Heparin -) 5,000 unit SQ BID [facility] Last Admin: 12/02/18 10:08 Dose: 5,000 unit Insulin Aspart (Novolog Vial Sliding Scale -) [address] [facility]; Protocol Last Admin: 12/02/18 11:44 Dose: Not Given Leflunomide (Arava -) 20 mg PO DAILY [facility] Last Admin: 12/02/18 10:08 Dose: 20 mg Losartan Potassium (Cozaar -) 100 mg PO DAILY [facility] Last Admin: 12/02/18 10:08 Dose: 100 mg Methylprednisolone Sodium Succinate (Solu-Medrol -) 40 mg IVPUSH BID [facility] Last Admin: 12/02/18 10:08 Dose: 40 mg Metoprolol Succinate (Toprol Xl -) 50 mg PO DAILY [facility] Last Admin: 12/02/18 10:08 Dose: 50 mg Pantoprazole Sodium (Protonix -) 40 mg PO DAILY [facility] Last Admin: 12/02/18 10:05 Dose: 40 mg Sulfasalazine (Azulfidine En-Tabs -) 1,000 mg PO BID [facility] Last Admin: 12/02/18 10:05 Dose: 1,000 mg Tramadol HCl (Ultram -) 50 mg PO Q6H PRN PRN Reason: PAIN LEVEL 6-10 Last Admin: 12/02/18 10:05 Dose: 50 mg Zolpidem Tartrate (Ambien -) 5 mg PO HS PRN PRN Reason: INSOMNIA Last Admin: 12/01/18 21:47 Dose: 5 mg - Objective Vital Signs: Vital Signs Temperature 97.8 F 12/02/18 10:00 Pulse Rate 88 12/02/18 10:00 Respiratory Rate 20 12/02/18 10:00 Blood Pressure 114/62 12/02/18 10:00 O2 Sat by Pulse Oximetry (%) 94 L 12/02/18 09:00 Constitutional: Yes: Well Nourished, Calm Eyes: Yes: WNL HENT: Yes: WNL Neck: Yes: WNL Cardiovascular: Yes: Regular Rate and Rhythm, S1, S2 Respiratory: Yes: Diminished Gastrointestinal: Yes: Normal Bowel Sounds, Soft Extremities: Yes: WNL Edema: Yes Labs: CBC, BMP Problem List - Problems (1) COPD exacerbation Code(s): J44.1 - CHRONIC OBSTRUCTIVE PULMONARY DISEASE W (ACUTE) EXACERBATION (2) COPD with acute exacerbation Code(s): J44.1 - CHRONIC OBSTRUCTIVE PULMONARY DISEASE W (ACUTE) EXACERBATION (3) Elevated lactic acid level Code(s): R79.89 - OTHER SPECIFIED ABNORMAL FINDINGS OF BLOOD CHEMISTRY (4) HLD (hyperlipidemia) Code(s): E78.5 - HYPERLIPIDEMIA, UNSPECIFIED (5) Stage 4 lung cancer Code(s): C34.90 - MALIGNANT NEOPLASM OF UNSP PART OF UNSP BRONCHUS OR LUNG Qualifiers: Laterality: unspecified laterality Qualified Code(s): C34.90 - Malignant neoplasm of unspecified part of unspecified bronchus or lung (6) HTN (hypertension) Code(s): I10 - ESSENTIAL (PRIMARY) HYPERTENSION Qualifiers: Hypertension type: unspecified Qualified Code(s): I10 - Essential (primary ) hypertension (7) Acute on chronic respiratory failure with hypoxemia Code(s): J96.21 - ACUTE AND CHRONIC RESPIRATORY FAILURE WITH HYPOXIA (8) Diabetes Code(s): E11.9 - TYPE 2 DIABETES MELLITUS WITHOUT COMPLICATIONS Qualifiers: Diabetes mellitus complication status: without complication (9) GERD (gastroesophageal reflux disease) Code(s): K21.9 - GASTRO-ESOPHAGEAL REFLUX DISEASE WITHOUT ESOPHAGITIS (10) Lactic acid acidosis Code(s): E87.2 - ACIDOSIS (11) Metastatic lung cancer (metastasis from lung to other site) Code(s): C34.90 - MALIGNANT NEOPLASM OF UNSP PART OF UNSP BRONCHUS OR LUNG (12) Rheumatoid arthritis Code(s): M06.9 - RHEUMATOID ARTHRITIS, UNSPECIFIED (13) Shortness of breath Code(s): R06.02 - SHORTNESS OF BREATH Assessment/Plan IMP ACUTE ON CHRONIC HYPOXEMIC/HYPERCAPNEIC RESPIRATORY FAILURE improving COPD WITH ACUTE EXACERBATION improving ADVANCED METASTATIC LUNG CA ELEVATED LACTATE LEVEL HTN CHF HLD RA PLAN TAPER STEROIDS INHALED BRONCHODILATORS O2 F/U CHEST X-RAYS CHEST PT DR KERR Problem List - Problems (1) COPD exacerbation Code(s): J44.1 - CHRONIC OBSTRUCTIVE PULMONARY DISEASE W (ACUTE) EXACERBATION (2) COPD with acute exacerbation Code(s): J44.1 - CHRONIC OBSTRUCTIVE PULMONARY DISEASE W (ACUTE) EXACERBATION (3) Elevated lactic acid level Code(s): R79.89 - OTHER SPECIFIED ABNORMAL FINDINGS OF BLOOD CHEMISTRY (4) HLD (hyperlipidemia) Code(s): E78.5 - HYPERLIPIDEMIA, UNSPECIFIED (5) Stage 4 lung cancer Code(s): C34.90 - MALIGNANT NEOPLASM OF UNSP PART OF UNSP BRONCHUS OR LUNG Qualifiers: Laterality: unspecified laterality Qualified Code(s): C34.90 - Malignant neoplasm of unspecified part of unspecified bronchus or lung (6) HTN (hypertension) Code(s): I10 - ESSENTIAL (PRIMARY) HYPERTENSION Qualifiers: Hypertension type: unspecified Qualified Code(s): I10 - Essential (primary ) hypertension (7) Acute on chronic respiratory failure with hypoxemia Code(s): J96.21 - ACUTE AND CHRONIC RESPIRATORY FAILURE WITH HYPOXIA (8) Diabetes Code(s): E11.9 - TYPE 2 DIABETES MELLITUS WITHOUT COMPLICATIONS Qualifiers: Diabetes mellitus complication status: without complication (9) GERD (gastroesophageal reflux disease) Code(s): K21.9 - GASTRO-ESOPHAGEAL REFLUX DISEASE WITHOUT ESOPHAGITIS (10) Lactic acid acidosis Code(s): E87.2 - ACIDOSIS (11) Metastatic lung cancer (metastasis from lung to other site) Code(s): C34.90 - MALIGNANT NEOPLASM OF UNSP PART OF UNSP BRONCHUS OR LUNG (12) Rheumatoid arthritis Code(s): M06.9 - RHEUMATOID ARTHRITIS, UNSPECIFIED (13) Shortness of breath Code(s): R06.02 - SHORTNESS OF BREATH
[2018-12-02] MEDS: ZOLPIDEM TARTRATE 5 MG TABLET PO PRN (22:00)
[2018-12-03] MEDS: INSULIN SLIDING SCALE (NOVOLOG) 1 VIAL SQ SCH ×4 (06:42→21:48)
[2018-12-03] MEDS: ALBUTEROL SO4 2.5/IPRATROPIUM 0.5 INH SOL 3 ML VIAL.NEB. NEB SCH ×4 (07:30→19:43)
[2018-12-03] MEDS ORDERED: PT OWN MED DRAWER 7, Y5N ONE (08:09)
[2018-12-03] MEDS: LORazepam 1 MG TABLET PO PRN (08:17)
[2018-12-03] MEDS: LEFLUNOMIDE 10 MG TABLET PO SCH (09:27)
[2018-12-03] MEDS: LOSARTAN POTASSIUM 50 MG TABLET (FP) PO SCH (09:27)
[2018-12-03] MEDS: PANTOPRAZOLE 40 MG TABLET (FP) PO SCH (09:27)
[2018-12-03] MEDS: ATOVAQUONE 750 MG/5 ML (UNIT-DOSE PACKAGING) PO SCH (09:27)
[2018-12-03] MEDS: amLODIPine BESYLATE 5 MG TABLET (FP) PO SCH (09:28)
[2018-12-03] MEDS: ASPIRIN COATED 81 MG TABLET.EC PO SCH (09:28)
[2018-12-03] MEDS: methylPREDNISolone NA SUCC 40 MG/1 ML VIAL IVPUSH SCH ×2 (09:29→21:48)
[2018-12-03] MEDS: ESCITALOPRAM OXALATE 10 MG TABLET (FP) PO SCH (09:30)
[2018-12-03] MEDS: busPIRone HCL 5 MG TABLET PO SCH ×2 (09:31→21:49)
[2018-12-03] MEDS: HEPARIN NA (PORCINE) 5,000 UNITS/ML 1ML VIAL SQ SCH ×2 (09:36→21:48)
--- NOTE | 2018-12-03 11:37 | PN ---
Progress Note (short form) - Note Progress Note: PULMONARY Still with shortness of breath, cough even at rest. Vital Signs Period Temp Pulse Resp BP Sys/Mdeeiros Pulse Ox Last 24 Hr 97.4 F-98.6 F 86-106 20-82 112-124/69-82 92-94 Gen: NAD at rest Heart: RRR Lung: distant breath sounds Abd: soft, nontender Ext: no edema CBC, BMP 12/01/18 06:48 12/01/18 06:48 Active Medications Acetaminophen (Tylenol -) 650 mg PO Q4H PRN PRN Reason: PAIN OR FEVER Albuterol Sulfate (Ventolin 0.083% Nebulizer Soln -) 1 amp NEB RQ4H PRN PRN Reason: SHORT OF BREATH/WHEEZING Last Admin: 11/29/18 04:39 Dose: 1 amp Albuterol/Ipratropium (Duoneb -) 1 amp NEB RQID [facility] Last Admin: 12/03/18 07:30 Dose: 1 amp Amlodipine Besylate (Norvasc -) 5 mg PO DAILY [facility] Last Admin: 12/03/18 09:28 Dose: 5 mg Aspirin (Ecotrin -) 81 mg PO DAILY [facility] Last Admin: 12/03/18 09:28 Dose: 81 mg Atovaquone (Mepron -) 1,500 mg PO DAILY@0800 [facility] Last Admin: 12/03/18 09:27 Dose: 1,500 mg Buspirone HCl (Buspar -) 5 mg PO BID [facility] Last Admin: 12/03/18 09:31 Dose: 5 mg Escitalopram Oxalate (Lexapro -) 10 mg PO DAILY [facility] Last Admin: 12/03/18 09:30 Dose: 10 mg Heparin Sodium (Porcine) (Heparin -) 5,000 unit SQ BID [facility] Last Admin: 12/03/18 09:36 Dose: 5,000 unit Insulin Aspart (Novolog Vial Sliding Scale -) 1 vial SQ ACHS [facility]; Protocol Last Admin: 12/03/18 11:21 Dose: Not Given Leflunomide (Arava -) 20 mg PO DAILY [facility] Last Admin: 12/03/18 09:27 Dose: 20 mg Lorazepam (Ativan -) 1 mg PO BID PRN PRN Reason: ANXIETY Last Admin: 12/03/18 08:17 Dose: 1 mg Losartan Potassium (Cozaar -) 100 mg PO DAILY [facility] Last Admin: 12/03/18 09: Dose: 100 mg Methylprednisolone Sodium Succinate (Solu-Medrol -) 30 mg IVPUSH BID [facility] Last Admin: 12/03/18: Dose: 30 mg Metoprolol Succinate (Toprol Xl -) 50 mg PO DAILY [facility] Last Admin: 12/03/18:29 Dose: 50 mg Pantoprazole Sodium (Protonix -) 40 mg PO DAILY [facility] Last Admin: 12/03/18: Dose: 40 mg Sulfasalazine (Azulfidine En-Tabs -) 1,000 mg PO BID [facility] Last Admin: 12/03/18 Dose: 1,000 mg A/P Acute on Chronic Hypoxic and Hypercapneic Respiratory Failure Acute COPD Exacerbation Metastatic Lung Cancer Lactic Acidosis LV Diastolic Dysfunction HTN Hyperlipidemia Rheumatoid Arthritis Anemia - continue medrol at current dose - will start morphine and xanax - inhaled bronchodilators - O2 to keep SpO2 >90% - DVT prophylaxis - palliative care eval
[2018-12-03 12:05] VITALS: BMI 22.9
--- NOTE | 2018-12-03 13:41 | PN ---
Progress Note, Physician Chief Complaint: SOB Stage 4 Lung CA History of Present Illness: Previous notes and events reviewed awake and alert NAD states she feels like her breathing is worse today also states feeling anxious denies chest pain - Current Medication List Current Medications: Active Medications Acetaminophen (Tylenol -) 650 mg PO Q4H PRN PRN Reason: PAIN OR FEVER Albuterol Sulfate (Ventolin 0.083% Nebulizer Soln -) 1 amp NEB RQ4H PRN PRN Reason: SHORT OF BREATH/WHEEZING Last Admin: 11/29/18 04:39 Dose: 1 amp Albuterol/Ipratropium (Duoneb -) 1 amp NEB RQID [facility] Last Admin: 12/03/18 11:20 Dose: 1 amp Alprazolam (Xanax -) 0.25 mg PO Q8H PRN PRN Reason: ANXIETY Amlodipine Besylate (Norvasc -) 5 mg PO DAILY [facility] Last Admin: 12/03/18 09:28 Dose: 5 mg Aspirin (Ecotrin -) 81 mg PO DAILY [facility] Last Admin: 12/03/18 09:28 Dose: 81 mg Atovaquone (Mepron -) 1,500 mg PO DAILY@0800 [facility] Last Admin: 12/03/18 09:27 Dose: 1,500 mg Buspirone HCl (Buspar -) 5 mg PO BID [facility] Last Admin: 12/03/18 09:31 Dose: 5 mg Escitalopram Oxalate (Lexapro -) 10 mg PO DAILY [facility] Last Admin: 12/03/18 09:30 Dose: 10 mg Heparin Sodium (Porcine) (Heparin -) 5,000 unit SQ BID [facility] Last Admin: 12/03/18 09:36 Dose: 5,000 unit Insulin Aspart (Novolog Vial Sliding Scale -) 1 vial SQ ACHS [facility]; Protocol Last Admin: 12/03/18 11:21 Dose: Not Given Leflunomide (Arava -) 20 mg PO DAILY [facility] Last Admin: 12/03/18 09:27 Dose: 20 mg Lorazepam (Ativan -) 1 mg PO BID PRN PRN Reason: ANXIETY Last Admin: 12/03/18 08:17 Dose: 1 mg Losartan Potassium (Cozaar -) 100 mg PO DAILY [facility] Last Admin: 12/03/18 09:27 Dose: 100 mg Methylprednisolone Sodium Succinate (Solu-Medrol -) 30 mg IVPUSH BID [facility] Last Admin: 12/03/18 09:29 Dose: 30 mg Metoprolol Succinate (Toprol Xl -) 50 mg PO DAILY [facility] Last Admin: 12/03/18 09:29 Dose: 50 mg Morphine Sulfate (Morphine Sulfate) 2 mg IVPUSH Q4H PRN PRN Reason: PAIN LEVEL 6-10 Pantoprazole Sodium (Protonix -) 40 mg PO DAILY [facility] Last Admin: 12/03/18 09:27 Dose: 40 mg Sulfasalazine (Azulfidine En-Tabs -) 1,000 mg PO BID [facility] Last Admin: 12/03/18 09:27 Dose: 1,000 mg - Objective Vital Signs: Vital Signs Temperature 98 F 12/03/18 10:00 Pulse Rate 106 H 12/03/18 10:00 Respiratory Rate 20 12/03/18 10:00 Blood Pressure 117/82 12/03/18 10:00 O2 Sat by Pulse Oximetry (%) 92 L 12/03/18 09:00 Constitutional: Yes: No Distress, Anxious Eyes: Yes: Conjunctiva Clear HENT: Yes: Atraumatic Cardiovascular: Yes: Regular Rate and Rhythm Respiratory: Yes: Regular, Diminished, On Nasal O2 Gastrointestinal: Yes: Normal Bowel Sounds, Soft Genitourinary: Yes: Incontinence Musculoskeletal: Yes: Muscle Weakness Extremities: Yes: WNL Edema: No Neurological: Yes: Alert, Oriented Psychiatric: Yes: Alert, Oriented Labs: CBC, BMP 12/01/18 06:48 12/01/18 06:48 INR, PTT INR 1.13 (0.83-1.09) H 11/23/18 03:38 Microbiology 11/23/18 03:38 Blood - Peripheral Venous Blood Culture - Final NO GROWTH AFTER 5 DAYS INCUBATION 11/23/18 03:38 Blood - Peripheral Venous Blood Culture - Final NO GROWTH AFTER 5 DAYS INCUBATION Problem List - Problems (1) COPD with acute exacerbation Assessment/Plan: -Pulm on board -O2 via NC -keep SpO2 >90% -IV Medrol -Bronchodilators Code(s): J44.1 - CHRONIC OBSTRUCTIVE PULMONARY DISEASE W (ACUTE) EXACERBATION (2) Stage 4 lung cancer Assessment/Plan: -Pulm on board -O2 via NC -keep SpO2 >90% -IV Medrol -Bronchodilators -Oncology on board -Arava Code(s): C34.90 - MALIGNANT NEOPLASM OF UNSP PART OF UNSP BRONCHUS OR LUNG Qualifiers: Laterality: unspecified laterality Qualified Code(s): C34.90 - Malignant neoplasm of unspecified part of unspecified bronchus or lung (3) HTN (hypertension) Assessment/Plan: -Norvasc, Cozaar, Toprol -low Na diet Code(s): I10 - ESSENTIAL (PRIMARY) HYPERTENSION Qualifiers: Hypertension type: unspecified Qualified Code(s): I10 - Essential (primary ) hypertension (4) Acute on chronic respiratory failure with hypoxemia Assessment/Plan: -Pulm on board -O2 via NC -keep SpO2 >90% -IV Medrol -Bronchodilators Code(s): J96.21 - ACUTE AND CHRONIC RESPIRATORY FAILURE WITH HYPOXIA (5) Diabetes Assessment/Plan: -BGM ACBK -ISS Code(s): E11.9 - TYPE 2 DIABETES MELLITUS WITHOUT COMPLICATIONS Qualifiers: Diabetes mellitus complication status: without complication (6) GERD (gastroesophageal reflux disease) Assessment/Plan: -Pantoprazole Code(s): K21.9 - GASTRO-ESOPHAGEAL REFLUX DISEASE WITHOUT ESOPHAGITIS (7) Metastatic lung cancer (metastasis from lung to other site) Assessment/Plan: -Pulm on board -O2 via NC -keep SpO2 >90% -IV Medrol -Bronchodilators -Oncology on board -Arava Code(s): C34.90 - MALIGNANT NEOPLASM OF UNSP PART OF UNSP BRONCHUS OR LUNG (8) Anxiety Assessment/Plan: -Lexapro, Buspar -Xanax PRN added Code(s): F41.9 - ANXIETY DISORDER, UNSPECIFIED (9) CHF exacerbation Assessment/Plan: -Pulm on board -Lasix -daily weights -keep SpO2 >90% Code(s): I50.9 - HEART FAILURE, UNSPECIFIED Assessment/Plan see problem list dvt ppx DNR/DNI begin d/c planning when switched to PO steroids Palliative Consult
--- NOTE | 2018-12-03 14:44 | PN ---
Progress Note, Physician History of Present Illness: Ms. Fulton is a 73 year old black woman with a past medical history of stage 4 lung cancer (s/p right upper lobe removal, currently on immunotherapy), COPD ( 5L at home), diastolic CHF ([facility] 10/2018: normal LVEF; abnormal diastrolic compliance;small pericardial effusion), ,moderate pulmonary HTN, here today for evaluation of shortness of breath and bilateral LE edema that worsened over the past 48 hours. She notes acute on chronic SOB tonight [facility] - Current Medication List Current Medications: Active Medications Acetaminophen (Tylenol -) 650 mg PO Q4H PRN PRN Reason: PAIN OR FEVER Albuterol Sulfate (Ventolin 0.083% Nebulizer Soln -) 1 amp NEB RQ4H PRN PRN Reason: SHORT OF BREATH/WHEEZING Last Admin: 11/29/18 04:39 Dose: 1 amp Albuterol/Ipratropium (Duoneb -) 1 amp NEB RQID [facility] Last Admin: 12/03/18 11:20 Dose: 1 amp Alprazolam (Xanax -) 0.25 mg PO Q8H PRN PRN Reason: ANXIETY Amlodipine Besylate (Norvasc -) 5 mg PO DAILY [facility] Last Admin: 12/03/18 09:28 Dose: 5 mg Aspirin (Ecotrin -) 81 mg PO DAILY [facility] Last Admin: 12/03/18 09:28 Dose: 81 mg Atovaquone (Mepron -) 1,500 mg PO DAILY@0800 [facility] Last Admin: 12/03/18 09:27 Dose: 1,500 mg Buspirone HCl (Buspar -) 5 mg PO BID [facility] Last Admin: 12/03/18 09:31 Dose: 5 mg Escitalopram Oxalate (Lexapro -) 10 mg PO DAILY [facility] Last Admin: 12/03/18 09:30 Dose: 10 mg Heparin Sodium (Porcine) (Heparin -) 5,000 unit SQ BID [facility] Last Admin: 12/03/18 09:36 Dose: 5,000 unit Insulin Aspart (Novolog Vial Sliding Scale -) 1 vial SQ ACHS [facility]; Protocol Last Admin: 12/03/18 11:21 Dose: Not Given Leflunomide (Arava -) 20 mg PO DAILY [facility] Last Admin: 12/03/18 09:27 Dose: 20 mg Lorazepam (Ativan -) 1 mg PO BID PRN PRN Reason: ANXIETY Last Admin: 12/03/18 08:17 Dose: 1 mg Losartan Potassium (Cozaar -) 100 mg PO DAILY [facility] Last Admin: 12/03/18 09:27 Dose: 100 mg Methylprednisolone Sodium Succinate (Solu-Medrol -) 30 mg IVPUSH BID [facility] Last Admin: 12/03/18 09:29 Dose: 30 mg Metoprolol Succinate (Toprol Xl -) 50 mg PO DAILY [facility] Last Admin: 12/03/18 09:29 Dose: 50 mg Morphine Sulfate (Morphine Sulfate) 2 mg IVPUSH Q4H PRN PRN Reason: PAIN LEVEL 6-10 Pantoprazole Sodium (Protonix -) 40 mg PO DAILY [facility] Last Admin: 12/03/18 09:27 Dose: 40 mg Sulfasalazine (Azulfidine En-Tabs -) 1,000 mg PO BID [facility] Last Admin: 12/03/18 09:27 Dose: 1,000 mg - Objective Vital Signs: Vital Signs Temperature 98.0 F 12/03/18 13:52 Pulse Rate 101 H 12/03/18 13:52 Respiratory Rate 20 12/03/18 13:52 Blood Pressure 111/71 12/03/18 13:52 O2 Sat by Pulse Oximetry (%) 92 L 12/03/18 09:00 Eyes: Yes: WNL, Conjunctiva Clear, EOM Intact HENT: Yes: WNL, Atraumatic, Normocephalic Neck: Yes: WNL, Supple, Trachea Midline Cardiovascular: Yes: WNL, Regular Rate and Rhythm Respiratory: Yes: Diminished Gastrointestinal: Yes: WNL, Normal Bowel Sounds Genitourinary: Yes: WNL Musculoskeletal: Yes: WNL Extremities: Yes: WNL Edema: No Integumentary: Yes: WNL Neurological: Yes: WNL, Alert, Oriented ...Motor Strength: WNL Psychiatric: Yes: WNL Labs: CBC, BMP 12/01/18 06:48 12/01/18 06:48 INR, PTT INR 1.13 (0.83-1.09) H 11/23/18 03:38 Assessment/Plan - Problems (1) HLD (hyperlipidemia) Code(s): E78.5 - HYPERLIPIDEMIA, UNSPECIFIED (2) Stage 4 lung cancer Assessment/Plan: extensive bilateral lung masses with liver metastases. 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 Pain management. Keep comfortable. Pt A&Ox3; only relatively comfortable position is sitting upright in bed with legs horizontal. C/o trying to bring up phlegm, but unable to do so alone; requests chest physiotherapy. Code(s): C34.90 - MALIGNANT NEOPLASM OF UNSP PART OF UNSP BRONCHUS OR LUNG Qualifiers: Laterality: unspecified laterality Qualified Code(s): C34.90 - Malignant neoplasm of unspecified part of unspecified bronchus or lung (3) HTN (hypertension) Assessment/Plan: On losartan and metoprolol; will discontinue furosemide (rising BUN/Cr). ECHO: normal LVEF. Code(s): I10 - ESSENTIAL (PRIMARY) HYPERTENSION Qualifiers: Hypertension type: unspecified Qualified Code(s): I10 - Essential (primary ) hypertension (4) Acute on chronic diastolic CHF (congestive heart failure) Assessment/Plan: On losartan, amlodipine, furosemide. Avoid excessive dehydration; will discontinue furosemide(rising BUN; no JVD; SOB primarily due to extensive lung CA; repeat CXR if necessary--some pleural fluid noted initially). F/u BUn/Cr, electrolytes, daily wt, Is and Os. Code(s): I50.33 - ACUTE ON CHRONIC DIASTOLIC (CONGESTIVE) HEART FAILURE (5) Hypoalbuminemia Code(s): E88.09 - OTH DISORDERS OF PLASMA-PROTEIN METABOLISM, NEC (6) Elevated troponin Assessment/Plan: mildly elevated TNI (0.13); was as high as 0.44 on admission in October. While CAD cannot be excluded (long hx cigarettes; HTN; hyperlipidemia), pt has multiple factors contributing to demand ischemia, including CA disease process with respiratory failure, CHF, tachycardia, F/u serially; given advanced state of cancer, would treat conservatively. Code(s): R74.8 - ABNORMAL LEVELS OF OTHER SERUM ENZYMES (7) Elevated lactic acid level Code(s): R79.89 - OTHER SPECIFIED ABNORMAL FINDINGS OF BLOOD CHEMISTRY
[2018-12-03] MEDS: ALPRAZolam 0.25 MG TABLET PO PRN (21:48)
[2018-12-04] MEDS: INSULIN SLIDING SCALE (NOVOLOG) 1 VIAL SQ SCH ×4 (06:08→21:53)
[2018-12-04] MEDS: ALBUTEROL SO4 2.5/IPRATROPIUM 0.5 INH SOL 3 ML VIAL.NEB. NEB SCH ×4 (08:34→20:31)
[2018-12-04] MEDS ORDERED: PT OWN MED DRAWER 7, Y5N ONE ×2 (08:57→21:55)
[2018-12-04] MEDS: ATOVAQUONE 750 MG/5 ML (UNIT-DOSE PACKAGING) PO SCH (09:00)
[2018-12-04] MEDS: methylPREDNISolone NA SUCC 40 MG/1 ML VIAL IVPUSH SCH ×2 (09:13→21:56)
[2018-12-04] MEDS: HEPARIN NA (PORCINE) 5,000 UNITS/ML 1ML VIAL SQ SCH ×2 (09:14→21:57)
[2018-12-04] MEDS: ALPRAZolam 0.25 MG TABLET PO PRN ×2 (09:14→22:05)
[2018-12-04] MEDS: ASPIRIN COATED 81 MG TABLET.EC PO SCH (09:14)
[2018-12-04] MEDS: PANTOPRAZOLE 40 MG TABLET (FP) PO SCH (09:14)
[2018-12-04] MEDS: amLODIPine BESYLATE 5 MG TABLET (FP) PO SCH (09:14)
[2018-12-04] MEDS: ESCITALOPRAM OXALATE 10 MG TABLET (FP) PO SCH (09:14)
[2018-12-04] MEDS: busPIRone HCL 5 MG TABLET PO SCH ×2 (09:14→21:56)
[2018-12-04] MEDS: LOSARTAN POTASSIUM 50 MG TABLET (FP) PO SCH (09:15)
[2018-12-04] MEDS: LORazepam 1 MG TABLET PO PRN (09:15)
[2018-12-04] MEDS: LEFLUNOMIDE 10 MG TABLET PO SCH (09:16)
[2018-12-04] MEDS: MORPHINE SULFATE 2 MG/ML VIAL IVPUSH PRN (11:26)
--- NOTE | 2018-12-04 11:30 | PN ---
Progress Note (short form) - Note Progress Note: PULMONARY Still with shortness of breath, cough but feels better with morphine, alprazolam. Vital Signs Period Temp Pulse Resp BP Sys/Medeiros Pulse Ox Last 24 Hr 97.6 F-98.0 F 55-101 20-20 92-128/56-71 92 Gen: NAD at rest Heart: RRR Lung: distant breath sounds Abd: soft, nontender Ext: no edema CBC, BMP 12/01/18 06:48 12/01/18 06:48 Active Medications Acetaminophen (Tylenol -) 650 mg PO Q4H PRN PRN Reason: PAIN OR FEVER Albuterol Sulfate (Ventolin 0.083% Nebulizer Soln -) 1 amp NEB RQ4H PRN PRN Reason: SHORT OF BREATH/WHEEZING Last Admin: 11/29/18 04:39 Dose: 1 amp Albuterol/Ipratropium (Duoneb -) 1 amp NEB RQID [facility] Last Admin: 12/04/18 08:34 Dose: 1 amp Alprazolam (Xanax -) 0.25 mg PO Q8H PRN PRN Reason: ANXIETY Last Admin: 12/04/18 09:14 Dose: 0.25 mg Amlodipine Besylate (Norvasc -) 5 mg PO DAILY [facility] Last Admin: 12/04/18 09:14 Dose: 5 mg Aspirin (Ecotrin -) 81 mg PO DAILY [facility] Last Admin: 12/04/18 09:14 Dose: 81 mg Atovaquone (Mepron -) 1,500 mg PO DAILY@0800 [facility] Last Admin: 12/04/18 09:00 Dose: 1,500 mg Buspirone HCl (Buspar -) 5 mg PO BID [facility] Last Admin: 12/04/18 09:14 Dose: 5 mg Escitalopram Oxalate (Lexapro -) 10 mg PO DAILY [facility] Last Admin: 12/04/18 09:14 Dose: 10 mg Heparin Sodium (Porcine) (Heparin -) 5,000 unit SQ BID [facility] Last Admin: 12/04/18 09:14 Dose: 5,000 unit Insulin Aspart (Novolog Vial Sliding Scale -) 1 vial SQ ACHS [facility]; Protocol Last Admin: 12/04/18 10:56 Dose: Not Given Leflunomide (Arava -) 20 mg PO DAILY [facility] Last Admin: 12/04/18 09:16 Dose: 20 mg Losartan Potassium (Cozaar -) 100 mg PO DAILY [facility] Last Admin: 12/04/18 09:15 Dose: 100 mg Methylprednisolone Sodium Succinate (Solu-Medrol -) 30 mg IVPUSH BID [facility] Last Admin: 12/04/18 09:13 Dose: 30 mg Metoprolol Succinate (Toprol Xl -) 50 mg PO DAILY [facility] Last Admin: 12/04/18 09:15 Dose: 50 mg Morphine Sulfate (Morphine Sulfate) 2 mg IVPUSH Q4H PRN PRN Reason: PAIN LEVEL 6-10 Last Admin: 12/04/18 11:26 Dose: 2 mg Pantoprazole Sodium (Protonix -) 40 mg PO DAILY [facility] Last Admin: 12/04/18 09:14 Dose: 40 mg Sulfasalazine (Azulfidine En-Tabs -) 1,000 mg PO BID [facility] Last Admin: 12/04/18 09:15 Dose: 1,000 mg A/P Acute on Chronic Hypoxic and Hypercapneic Respiratory Failure Acute COPD Exacerbation Metastatic Lung Cancer Lactic Acidosis LV Diastolic Dysfunction HTN Hyperlipidemia Rheumatoid Arthritis Anemia - continue medrol at current dose - titrate morphine, benzos to comfort - inhaled bronchodilators - O2 to keep SpO2 >90% - DVT prophylaxis - palliative care eval
--- NOTE | 2018-12-04 15:20 | PN ---
Progress Note, Physician Chief Complaint: SOB Stage 4 Lung CA History of Present Illness: Previous notes and events reviewed awake and alert NAD still feels like her breathing is worse today denies chest pain - Current Medication List Current Medications: Active Medications Acetaminophen (Tylenol -) 650 mg PO Q4H PRN PRN Reason: PAIN OR FEVER Albuterol Sulfate (Ventolin 0.083% Nebulizer Soln -) 1 amp NEB RQ4H PRN PRN Reason: SHORT OF BREATH/WHEEZING Last Admin: 11/29/18 04:39 Dose: 1 amp Albuterol/Ipratropium (Duoneb -) 1 amp NEB RQID [facility] Last Admin: 12/04/18 13:14 Dose: 1 amp Alprazolam (Xanax -) 0.25 mg PO Q8H PRN PRN Reason: ANXIETY Last Admin: 12/04/18 09:14 Dose: 0.25 mg Amlodipine Besylate (Norvasc -) 5 mg PO DAILY [facility] Last Admin: 12/04/18 09:14 Dose: 5 mg Aspirin (Ecotrin -) 81 mg PO DAILY [facility] Last Admin: 12/04/18 09:14 Dose: 81 mg Atovaquone (Mepron -) 1,500 mg PO DAILY@0800 [facility] Last Admin: 12/04/18 09:00 Dose: 1,500 mg Buspirone HCl (Buspar -) 5 mg PO BID [facility] Last Admin: 12/04/18 09:14 Dose: 5 mg Escitalopram Oxalate (Lexapro -) 10 mg PO DAILY [facility] Last Admin: 12/04/18 09:14 Dose: 10 mg Heparin Sodium (Porcine) (Heparin -) 5,000 unit SQ BID [facility] Last Admin: 12/04/18 09:14 Dose: 5,000 unit Insulin Aspart (Novolog Vial Sliding Scale -) 1 vial SQ ACHS [facility]; Protocol Last Admin: 12/04/18 10:56 Dose: Not Given Leflunomide (Arava -) 20 mg PO DAILY [facility] Last Admin: 12/04/18 09:16 Dose: 20 mg Losartan Potassium (Cozaar -) 100 mg PO DAILY [facility] Last Admin: 12/04/18 09:15 Dose: 100 mg Methylprednisolone Sodium Succinate (Solu-Medrol -) 30 mg IVPUSH BID [facility] Last Admin: 12/04/18 09:13 Dose: 30 mg Metoprolol Succinate (Toprol Xl -) 50 mg PO DAILY [facility] Last Admin: 12/04/18 09:15 Dose: 50 mg Morphine Sulfate (Morphine Sulfate) 2 mg IVPUSH Q4H PRN PRN Reason: PAIN LEVEL 6-10 Last Admin: 12/04/18 11:26 Dose: 2 mg Pantoprazole Sodium (Protonix -) 40 mg PO DAILY [facility] Last Admin: 12/04/18 09:14 Dose: 40 mg Sulfasalazine (Azulfidine En-Tabs -) 1,000 mg PO BID [facility] Last Admin: 12/04/18 09:15 Dose: 1,000 mg - Objective Vital Signs: Vital Signs Temperature 97.4 F L 12/04/18 13:47 Pulse Rate 99 H 12/04/18 13:47 Respiratory Rate 20 12/04/18 13:47 Blood Pressure 108/64 12/04/18 13:47 O2 Sat by Pulse Oximetry (%) 92 L 12/03/18 21:00 Constitutional: Yes: No Distress, Calm Eyes: Yes: Conjunctiva Clear HENT: Yes: Atraumatic Cardiovascular: Yes: Regular Rate and Rhythm Respiratory: Yes: Regular, Diminished, On Nasal O2 Gastrointestinal: Yes: Normal Bowel Sounds, Soft Genitourinary: Yes: Incontinence Musculoskeletal: Yes: Muscle Weakness Extremities: Yes: WNL Edema: No Peripheral Pulses WNL: No Neurological: Yes: Alert, Oriented Psychiatric: Yes: Alert, Oriented Labs: CBC, BMP 12/01/18 06:48 12/01/18 06:48 INR, PTT INR 1.13 (0.83-1.09) H 11/23/18 03:38 Microbiology 11/23/18 03:38 Blood - Peripheral Venous Blood Culture - Final NO GROWTH AFTER 5 DAYS INCUBATION 11/23/18 03:38 Blood - Peripheral Venous Blood Culture - Final NO GROWTH AFTER 5 DAYS INCUBATION Problem List - Problems (1) COPD with acute exacerbation Assessment/Plan: -Pulm on board -O2 via NC -keep SpO2 >90% -IV Medrol -Bronchodilators Code(s): J44.1 - CHRONIC OBSTRUCTIVE PULMONARY DISEASE W (ACUTE) EXACERBATION (2) Stage 4 lung cancer Assessment/Plan: -Pulm on board -O2 via NC -keep SpO2 >90% -IV Medrol -Bronchodilators -Oncology on board -Arava Code(s): C34.90 - MALIGNANT NEOPLASM OF UNSP PART OF UNSP BRONCHUS OR LUNG Qualifiers: Laterality: unspecified laterality Qualified Code(s): C34.90 - Malignant neoplasm of unspecified part of unspecified bronchus or lung (3) HTN (hypertension) Assessment/Plan: -Norvasc, Cozaar, Toprol -low Na diet Code(s): I10 - ESSENTIAL (PRIMARY) HYPERTENSION Qualifiers: Hypertension type: unspecified Qualified Code(s): I10 - Essential (primary ) hypertension (4) Acute on chronic respiratory failure with hypoxemia Assessment/Plan: -Pulm on board -O2 via NC -keep SpO2 >90% -IV Medrol -Bronchodilators Code(s): J96.21 - ACUTE AND CHRONIC RESPIRATORY FAILURE WITH HYPOXIA (5) Diabetes Assessment/Plan: -BGM ACBK -ISS Code(s): E11.9 - TYPE 2 DIABETES MELLITUS WITHOUT COMPLICATIONS Qualifiers: Diabetes mellitus complication status: without complication (6) GERD (gastroesophageal reflux disease) Assessment/Plan: -Pantoprazole Code(s): K21.9 - GASTRO-ESOPHAGEAL REFLUX DISEASE WITHOUT ESOPHAGITIS (7) Metastatic lung cancer (metastasis from lung to other site) Assessment/Plan: -Pulm on board -O2 via NC -keep SpO2 >90% -IV Medrol -Bronchodilators -Oncology on board -Arava Code(s): C34.90 - MALIGNANT NEOPLASM OF UNSP PART OF UNSP BRONCHUS OR LUNG (8) Anxiety Assessment/Plan: -Lexapro, Buspar -Xanax PRN added Code(s): F41.9 - ANXIETY DISORDER, UNSPECIFIED (9) CHF exacerbation Assessment/Plan: -Pulm on board -Lasix -daily weights -keep SpO2 >90% Code(s): I50.9 - HEART FAILURE, UNSPECIFIED Assessment/Plan see problem list dvt ppx DNR/DNI begin d/c planning when switched to PO steroids Palliative Consult
[2018-12-05] MEDS: INSULIN SLIDING SCALE (NOVOLOG) 1 VIAL SQ SCH ×4 (06:17→21:10)
[2018-12-05] MEDS ORDERED: PT OWN MED DRAWER 7, Y5N ONE ×2 (08:51→20:50)
[2018-12-05] MEDS: ATOVAQUONE 750 MG/5 ML (UNIT-DOSE PACKAGING) PO SCH (08:54)
[2018-12-05] MEDS: ALPRAZolam 0.25 MG TABLET PO PRN ×2 (08:54→21:09)
[2018-12-05] MEDS: MORPHINE SULFATE 2 MG/ML VIAL IVPUSH PRN (08:55)
[2018-12-05] MEDS: ALBUTEROL SO4 2.5/IPRATROPIUM 0.5 INH SOL 3 ML VIAL.NEB. NEB SCH ×4 (08:56→20:23)
[2018-12-05] MEDS: HEPARIN NA (PORCINE) 5,000 UNITS/ML 1ML VIAL SQ SCH (09:57)
[2018-12-05] MEDS: PANTOPRAZOLE 40 MG TABLET (FP) PO SCH (10:03)
[2018-12-05] MEDS: busPIRone HCL 5 MG TABLET PO SCH ×2 (10:03→21:06)
[2018-12-05] MEDS: ASPIRIN COATED 81 MG TABLET.EC PO SCH (10:03)
[2018-12-05] MEDS: ESCITALOPRAM OXALATE 10 MG TABLET (FP) PO SCH (10:04)
[2018-12-05] MEDS: LEFLUNOMIDE 10 MG TABLET PO SCH (10:05)
[2018-12-05] MEDS: methylPREDNISolone NA SUCC 40 MG/1 ML VIAL IVPUSH SCH (10:05)
[2018-12-05] MEDS: amLODIPine BESYLATE 5 MG TABLET (FP) PO SCH (10:11)
[2018-12-05] MEDS: LOSARTAN POTASSIUM 50 MG TABLET (FP) PO SCH (10:11)
--- NOTE | 2018-12-05 11:24 | PN ---
Progress Note, Physician Chief Complaint: SOB Stage 4 Lung CA History of Present Illness: Previous notes and events reviewed awake and alert NAD sts breathing is the same denies chest pain re-consult palliative to discuss goals of care DNH vs comfort care - Current Medication List Current Medications: Active Medications Acetaminophen (Tylenol -) 650 mg PO Q4H PRN PRN Reason: PAIN OR FEVER Albuterol Sulfate (Ventolin 0.083% Nebulizer Soln -) 1 amp NEB RQ4H PRN PRN Reason: SHORT OF BREATH/WHEEZING Last Admin: 11/29/18 04:39 Dose: 1 amp Albuterol/Ipratropium (Duoneb -) 1 amp NEB RQID [facility] Last Admin: 12/05/18 08:56 Dose: 1 amp Alprazolam (Xanax -) 0.25 mg PO Q8H PRN PRN Reason: ANXIETY Last Admin: 12/05/18 08:54 Dose: 0.25 mg Amlodipine Besylate (Norvasc -) 5 mg PO DAILY [facility] Last Admin: 12/05/18 10:11 Dose: 5 mg Aspirin (Ecotrin -) 81 mg PO DAILY [facility] Last Admin: 12/05/18 10:03 Dose: 81 mg Atovaquone (Mepron -) 1,500 mg PO DAILY@0800 [facility] Last Admin: 12/05/18 08:54 Dose: 1,500 mg Buspirone HCl (Buspar -) 5 mg PO BID [facility] Last Admin: 12/05/18 10:03 Dose: 5 mg Escitalopram Oxalate (Lexapro -) 10 mg PO DAILY [facility] Last Admin: 12/05/18 10:04 Dose: 10 mg Heparin Sodium (Porcine) (Heparin -) 5,000 unit SQ BID [facility] Last Admin: 12/05/18 09:57 Dose: 5,000 unit Insulin Aspart (Novolog Vial Sliding Scale -) 1 vial SQ ACHS [facility]; Protocol Last Admin: 12/05/18 10:32 Dose: Not Given Leflunomide (Arava -) 20 mg PO DAILY [facility] Last Admin: 12/05/18 10:05 Dose: 20 mg Losartan Potassium (Cozaar -) 100 mg PO DAILY [facility] Last Admin: 12/05/18 10:11 Dose: 100 mg Methylprednisolone Sodium Succinate (Solu-Medrol -) 30 mg IVPUSH BID [facility] Last Admin: 12/05/18 10:05 Dose: 30 mg Metoprolol Succinate (Toprol Xl -) 50 mg PO DAILY [facility] Last Admin: 12/05/18 10:11 Dose: 50 mg Morphine Sulfate (Morphine Sulfate) 2 mg IVPUSH Q4H PRN PRN Reason: PAIN LEVEL 6-10 Last Admin: 12/05/18 08:55 Dose: 2 mg Pantoprazole Sodium (Protonix -) 40 mg PO DAILY [facility] Last Admin: 12/05/18 10:03 Dose: 40 mg Sulfasalazine (Azulfidine En-Tabs -) 1,000 mg PO BID [facility] Last Admin: 12/05/18 10:05 Dose: 1,000 mg - Objective Vital Signs: Vital Signs Temperature 97.6 F 12/05/18 10:12 Pulse Rate 107 H 12/05/18 10:12 Respiratory Rate 22 H 12/05/18 10:12 Blood Pressure 103/56 L 12/05/18 10:12 O2 Sat by Pulse Oximetry (%) 93 L 12/04/18 21:00 Constitutional: Yes: No Distress, Calm Eyes: Yes: Conjunctiva Clear HENT: Yes: Atraumatic Cardiovascular: Yes: Regular Rate and Rhythm Respiratory: Yes: Regular, Diminished, On Nasal O2 Gastrointestinal: Yes: Normal Bowel Sounds, Soft Genitourinary: Yes: Incontinence Musculoskeletal: Yes: Muscle Weakness Extremities: Yes: WNL Edema: No Integumentary: Yes: Pressure Ulcer (sacral) Wound/Incision: Yes: Dressing Dry and Intact Neurological: Yes: Alert, Oriented Psychiatric: Yes: Alert, Oriented Labs: CBC, BMP 12/01/18 06:48 12/01/18 06:48 INR, PTT INR 1.13 (0.83-1.09) H 11/23/18 03:38 Microbiology 11/23/18 03:38 Blood - Peripheral Venous Blood Culture - Final NO GROWTH AFTER 5 DAYS INCUBATION 11/23/18 03:38 Blood - Peripheral Venous Blood Culture - Final NO GROWTH AFTER 5 DAYS INCUBATION Problem List - Problems (1) COPD with acute exacerbation Assessment/Plan: -Pulm on board -O2 via NC -keep SpO2 >90% -IV Medrol -Bronchodilators Code(s): J44.1 - CHRONIC OBSTRUCTIVE PULMONARY DISEASE W (ACUTE) EXACERBATION (2) Stage 4 lung cancer Assessment/Plan: -Pulm on board -O2 via NC -keep SpO2 >90% -IV Medrol -Bronchodilators -Oncology on board -Arava Code(s): C34.90 - MALIGNANT NEOPLASM OF UNSP PART OF UNSP BRONCHUS OR LUNG Qualifiers: Laterality: unspecified laterality Qualified Code(s): C34.90 - Malignant neoplasm of unspecified part of unspecified bronchus or lung (3) HTN (hypertension) Assessment/Plan: -Norvasc, Cozaar, Toprol -low Na diet Code(s): I10 - ESSENTIAL (PRIMARY) HYPERTENSION Qualifiers: Hypertension type: unspecified Qualified Code(s): I10 - Essential (primary ) hypertension (4) Acute on chronic respiratory failure with hypoxemia Assessment/Plan: -Pulm on board -O2 via NC -keep SpO2 >90% -IV Medrol -Bronchodilators Code(s): J96.21 - ACUTE AND CHRONIC RESPIRATORY FAILURE WITH HYPOXIA (5) Diabetes Assessment/Plan: -BGM ACBK -ISS Code(s): E11.9 - TYPE 2 DIABETES MELLITUS WITHOUT COMPLICATIONS Qualifiers: Diabetes mellitus complication status: without complication (6) GERD (gastroesophageal reflux disease) Assessment/Plan: -Pantoprazole Code(s): K21.9 - GASTRO-ESOPHAGEAL REFLUX DISEASE WITHOUT ESOPHAGITIS (7) Metastatic lung cancer (metastasis from lung to other site) Assessment/Plan: -Pulm on board -O2 via NC -keep SpO2 >90% -IV Medrol -Bronchodilators -Oncology on board -Arava -re-consult palliative~patient is refusing [place], discuss goals of care in regards to comfort care, DNH Code(s): C34.90 - MALIGNANT NEOPLASM OF UNSP PART OF UNSP BRONCHUS OR LUNG (8) Anxiety Assessment/Plan: -Lexapro, Buspar -Xanax PRN added Code(s): F41.9 - ANXIETY DISORDER, UNSPECIFIED (9) CHF exacerbation Assessment/Plan: -Pulm on board -Lasix -daily weights -keep SpO2 >90% Code(s): I50.9 - HEART FAILURE, UNSPECIFIED Assessment/Plan see problem list dvt ppx DNR/DNI begin d/c planning when switched to PO steroids Palliative Consult
--- NOTE | 2018-12-05 11:53 | PN ---
Progress Note, Physician History of Present Illness: Ms. Fulton is a 73 year old black woman with a past medical history of stage 4 lung cancer (s/p right upper lobe removal, currently on immunotherapy), COPD ( 5L at home), diastolic CHF (AKHO 10/2018: normal LVEF; abnormal diastrolic compliance;small pericardial effusion), ,moderate pulmonary HTN, here today for evaluation of shortness of breath and bilateral LE edema that worsened over the past 48 hours. She notes acute on chronic SOB tonight despite nebulizer use at her Al[facility]. - Current Medication List Current Medications: Active Medications Acetaminophen (Tylenol -) 650 mg PO Q4H PRN PRN Reason: PAIN OR FEVER Albuterol Sulfate (Ventolin 0.083% Nebulizer Soln -) 1 amp NEB RQ4H PRN PRN Reason: SHORT OF BREATH/WHEEZING Last Admin: 11/29/18 04:39 Dose: 1 amp Albuterol/Ipratropium (Duoneb -) 1 amp NEB RQID [facility] Last Admin: 12/05/18 08:56 Dose: 1 amp Alprazolam (Xanax -) 0.25 mg PO Q8H PRN PRN Reason: ANXIETY Last Admin: 12/05/18 08:54 Dose: 0.25 mg Amlodipine Besylate (Norvasc -) 5 mg PO DAILY [facility] Last Admin: 12/05/18 10:11 Dose: 5 mg Aspirin (Ecotrin -) 81 mg PO DAILY [facility] Last Admin: 12/05/18 10:03 Dose: 81 mg Atovaquone (Mepron -) 1,500 mg PO DAILY@0800 [facility] Last Admin: 12/05/18 08:54 Dose: 1,500 mg Buspirone HCl (Buspar -) 5 mg PO BID [facility] Last Admin: 12/05/18 10:03 Dose: 5 mg Escitalopram Oxalate (Lexapro -) 10 mg PO DAILY [facility] Last Admin: 12/05/18 10:04 Dose: 10 mg Heparin Sodium (Porcine) (Heparin -) 5,000 unit SQ BID [facility] Last Admin: 12/05/18 09:57 Dose: 5,000 unit Insulin Aspart (Novolog Vial Sliding Scale -) 1 vial SQ [facility]; Protocol Last Admin: 12/05/18 10:32 Dose: Not Given Leflunomide (Arava -) 20 mg PO DAILY [facility] Last Admin: 12/05/18 10:05 Dose: 20 mg Losartan Potassium (Cozaar -) 100 mg PO DAILY [facility] Last Admin: 12/05/18 10:11 Dose: 100 mg Methylprednisolone Sodium Succinate (Solu-Medrol -) 30 mg IVPUSH BID [facility] Last Admin: 12/05/18 10:05 Dose: 30 mg Metoprolol Succinate (Toprol Xl -) 50 mg PO DAILY [facility] Last Admin: 12/05/18 10:11 Dose: 50 mg Morphine Sulfate (Morphine Sulfate) 2 mg IVPUSH Q4H PRN PRN Reason: PAIN LEVEL 6-10 Last Admin: 12/05/18 08:55 Dose: 2 mg Pantoprazole Sodium (Protonix -) 40 mg PO DAILY [facility] Last Admin: 12/05/18 10:03 Dose: 40 mg Sulfasalazine (Azulfidine En-Tabs -) 1,000 mg PO BID [facility] Last Admin: 12/05/18 10:05 Dose: 1,000 mg - Objective Vital Signs: Vital Signs Temperature 97.6 F 12/05/18 10:12 Pulse Rate 107 H 12/05/18 10:12 Respiratory Rate 22 H 12/05/18 10:12 Blood Pressure 103/56 L 12/05/18 10:12 O2 Sat by Pulse Oximetry (%) 93 L 12/04/18 21:00 Eyes: Yes: WNL, Conjunctiva Clear, EOM Intact HENT: Yes: WNL, Atraumatic, Normocephalic Neck: Yes: WNL, Supple, Trachea Midline Cardiovascular: Yes: WNL, Regular Rate and Rhythm Respiratory: Yes: Diminished Gastrointestinal: Yes: WNL, Normal Bowel Sounds Genitourinary: Yes: WNL Musculoskeletal: Yes: WNL Extremities: Yes: WNL Edema: No Integumentary: Yes: WNL Neurological: Yes: WNL, Alert, Oriented ...Motor Strength: WNL Psychiatric: Yes: WNL Labs: CBC, BMP 12/01/18 06:48 12/01/18 06:48 INR, PTT INR 1.13 (0.83-1.09) H 11/23/18 03:38 Assessment/Plan - Problems (1) HLD (hyperlipidemia) Code(s): E78.5 - HYPERLIPIDEMIA, UNSPECIFIED (2) Stage 4 lung cancer Assessment/Plan: extensive bilateral lung masses with liver metastases. 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 Keep comfortable. Pt A&Ox3; only relatively comfortable position is sitting upright in bed with legs horizontal. C/o trying to bring up phlegm, but unable to do so alone; requests chest physiotherapy. Code(s): C34.90 - MALIGNANT NEOPLASM OF UNSP PART OF UNSP BRONCHUS OR LUNG Qualifiers: Laterality: unspecified laterality Qualified Code(s): C34.90 - Malignant neoplasm of unspecified part of unspecified bronchus or lung (3) HTN (hypertension) Assessment/Plan: On losartan and metoprolol; will discontinue furosemide (rising BUN/Cr). ECHO: normal LVEF. Code(s): I10 - ESSENTIAL (PRIMARY) HYPERTENSION Qualifiers: Hypertension type: unspecified Qualified Code(s): I10 - Essential (primary ) hypertension (4) Acute on chronic diastolic CHF (congestive heart failure) Assessment/Plan: On losartan, amlodipine, furosemide. Avoid excessive dehydration; will discontinue furosemide(rising BUN; no JVD; SOB primarily due to extensive lung CA; repeat CXR if necessary--some pleural fluid noted initially). F/u BUn/Cr, electrolytes, daily wt, Is and Os. Code(s): I50.33 - ACUTE ON CHRONIC DIASTOLIC (CONGESTIVE) HEART FAILURE (5) Hypoalbuminemia Code(s): E88.09 - OTH DISORDERS OF PLASMA-PROTEIN METABOLISM, NEC (6) Elevated troponin Assessment/Plan: mildly elevated TNI (0.13); was as high as 0.44 on admission in October. While CAD cannot be excluded (long hx cigarettes; HTN; hyperlipidemia), pt has multiple factors contributing to demand ischemia, including CA disease process with respiratory failure, CHF, tachycardia, F/u serially; given advanced state of cancer, would treat conservatively. Code(s): R74.8 - ABNORMAL LEVELS OF OTHER SERUM ENZYMES (7) Elevated lactic acid level Code(s): R79.89 - OTHER SPECIFIED ABNORMAL FINDINGS OF BLOOD CHEMISTRY
--- NOTE | 2018-12-05 14:51 | PN ---
Progress Note, Physician History of Present Illness: pulmonary alert,comfortable,less dyspneic - Current Medication List Current Medications: Active Medications Acetaminophen (Tylenol -) 650 mg PO Q4H PRN PRN Reason: PAIN OR FEVER Albuterol Sulfate (Ventolin 0.083% Nebulizer Soln -) 1 amp NEB RQ4H PRN PRN Reason: SHORT OF BREATH/WHEEZING Last Admin: 11/29/18 04:39 Dose: 1 amp Albuterol/Ipratropium (Duoneb -) 1 amp NEB RQID [facility] Last Admin: 12/05/18 08:56 Dose: 1 amp Alprazolam (Xanax -) 0.25 mg PO Q8H PRN PRN Reason: ANXIETY Last Admin: 12/05/18 08:54 Dose: 0.25 mg Amlodipine Besylate (Norvasc -) 5 mg PO DAILY [facility] Last Admin: 12/05/18 10:11 Dose: 5 mg Aspirin (Ecotrin -) 81 mg PO DAILY [facility] Last Admin: 12/05/18 10:03 Dose: 81 mg Atovaquone (Mepron -) 1,500 mg PO DAILY@0800 [facility] Last Admin: 12/05/18 08:54 Dose: 1,500 mg Buspirone HCl (Buspar -) 5 mg PO BID [facility] Last Admin: 12/05/18 10:03 Dose: 5 mg Escitalopram Oxalate (Lexapro -) 10 mg PO DAILY [facility] Last Admin: 12/05/18 10:04 Dose: 10 mg Heparin Sodium (Porcine) (Heparin -) 5,000 unit SQ BID [facility] Last Admin: 12/05/18 09:57 Dose: 5,000 unit Insulin Aspart (Novolog Vial Sliding Scale -) 1 vial SQ ACHS [facility]; Protocol Last Admin: 12/05/18 10:32 Dose: Not Given Leflunomide (Arava -) 20 mg PO DAILY [facility] Last Admin: 12/05/18 10:05 Dose: 20 mg Losartan Potassium (Cozaar -) 100 mg PO DAILY [facility] Last Admin: 12/05/18 10:11 Dose: 100 mg Methylprednisolone Sodium Succinate (Solu-Medrol -) 30 mg IVPUSH BID [facility] Last Admin: 12/05/18 10:05 Dose: 30 mg Metoprolol Succinate (Toprol Xl -) 50 mg PO DAILY [facility] Last Admin: 12/05/18 10:11 Dose: 50 mg Morphine Sulfate (Morphine Sulfate) 2 mg IVPUSH Q4H PRN PRN Reason: PAIN LEVEL 6-10 Last Admin: 12/05/18 08:55 Dose: 2 mg Pantoprazole Sodium (Protonix -) 40 mg PO DAILY [facility] Last Admin: 12/05/18 10:03 Dose: 40 mg Sulfasalazine (Azulfidine En-Tabs -) 1,000 mg PO BID [facility] Last Admin: 12/05/18 10:05 Dose: 1,000 mg - Objective Vital Signs: Vital Signs Temperature 97.6 F 12/05/18 10:12 Pulse Rate 107 H 12/05/18 10:12 Respiratory Rate 22 H 12/05/18 10:12 Blood Pressure 103/56 L 12/05/18 10:12 O2 Sat by Pulse Oximetry (%) 95 12/05/18 09:00 Constitutional: Yes: Well Nourished, Calm Eyes: Yes: WNL HENT: Yes: WNL Neck: Yes: WNL Cardiovascular: Yes: Regular Rate and Rhythm, S1, S2 Respiratory: Yes: Diminished Gastrointestinal: Yes: Normal Bowel Sounds, Soft Extremities: Yes: WNL Edema: Yes Labs: CBC, BMP Problem List - Problems (1) COPD exacerbation Code(s): J44.1 - CHRONIC OBSTRUCTIVE PULMONARY DISEASE W (ACUTE) EXACERBATION (2) COPD with acute exacerbation Code(s): J44.1 - CHRONIC OBSTRUCTIVE PULMONARY DISEASE W (ACUTE) EXACERBATION (3) Elevated lactic acid level Code(s): R79.89 - OTHER SPECIFIED ABNORMAL FINDINGS OF BLOOD CHEMISTRY (4) HLD (hyperlipidemia) Code(s): E78.5 - HYPERLIPIDEMIA, UNSPECIFIED (5) Stage 4 lung cancer Code(s): C34.90 - MALIGNANT NEOPLASM OF UNSP PART OF UNSP BRONCHUS OR LUNG Qualifiers: Laterality: unspecified laterality Qualified Code(s): C34.90 - Malignant neoplasm of unspecified part of unspecified bronchus or lung (6) HTN (hypertension) Code(s): I10 - ESSENTIAL (PRIMARY) HYPERTENSION Qualifiers: Hypertension type: unspecified Qualified Code(s): I10 - Essential (primary ) hypertension (7) Acute on chronic respiratory failure with hypoxemia Code(s): J96.21 - ACUTE AND CHRONIC RESPIRATORY FAILURE WITH HYPOXIA (8) Diabetes Code(s): E11.9 - TYPE 2 DIABETES MELLITUS WITHOUT COMPLICATIONS Qualifiers: Diabetes mellitus complication status: without complication (9) GERD (gastroesophageal reflux disease) Code(s): K21.9 - GASTRO-ESOPHAGEAL REFLUX DISEASE WITHOUT ESOPHAGITIS (10) Lactic acid acidosis Code(s): E87.2 - ACIDOSIS (11) Metastatic lung cancer (metastasis from lung to other site) Code(s): C34.90 - MALIGNANT NEOPLASM OF UNSP PART OF UNSP BRONCHUS OR LUNG (12) Rheumatoid arthritis Code(s): M06.9 - RHEUMATOID ARTHRITIS, UNSPECIFIED (13) Shortness of breath Code(s): R06.02 - SHORTNESS OF BREATH Assessment/Plan IMP ACUTE ON CHRONIC HYPOXEMIC/HYPERCAPNEIC RESPIRATORY FAILURE improving COPD WITH ACUTE EXACERBATION improving ADVANCED METASTATIC LUNG CA ELEVATED LACTATE LEVEL HTN CHF HLD RA PLAN PREDNISONE INHALED BRONCHODILATORS O2 F/U CHEST X-RAYS CHEST PT DR KERR Problem List - Problems (1) COPD exacerbation Code(s): J44.1 - CHRONIC OBSTRUCTIVE PULMONARY DISEASE W (ACUTE) EXACERBATION (2) COPD with acute exacerbation Code(s): J44.1 - CHRONIC OBSTRUCTIVE PULMONARY DISEASE W (ACUTE) EXACERBATION (3) Elevated lactic acid level Code(s): R79.89 - OTHER SPECIFIED ABNORMAL FINDINGS OF BLOOD CHEMISTRY (4) HLD (hyperlipidemia) Code(s): E78.5 - HYPERLIPIDEMIA, UNSPECIFIED (5) Stage 4 lung cancer Code(s): C34.90 - MALIGNANT NEOPLASM OF UNSP PART OF UNSP BRONCHUS OR LUNG Qualifiers: Laterality: unspecified laterality Qualified Code(s): C34.90 - Malignant neoplasm of unspecified part of unspecified bronchus or lung (6) HTN (hypertension) Code(s): I10 - ESSENTIAL (PRIMARY) HYPERTENSION Qualifiers: Hypertension type: unspecified Qualified Code(s): I10 - Essential (primary ) hypertension (7) Acute on chronic respiratory failure with hypoxemia Code(s): J96.21 - ACUTE AND CHRONIC RESPIRATORY FAILURE WITH HYPOXIA (8) Diabetes Code(s): E11.9 - TYPE 2 DIABETES MELLITUS WITHOUT COMPLICATIONS Qualifiers: Diabetes mellitus complication status: without complication (9) GERD (gastroesophageal reflux disease) Code(s): K21.9 - GASTRO-ESOPHAGEAL REFLUX DISEASE WITHOUT ESOPHAGITIS (10) Lactic acid acidosis Code(s): E87.2 - ACIDOSIS (11) Metastatic lung cancer (metastasis from lung to other site) Code(s): C34.90 - MALIGNANT NEOPLASM OF UNSP PART OF UNSP BRONCHUS OR LUNG (12) Rheumatoid arthritis Code(s): M06.9 - RHEUMATOID ARTHRITIS, UNSPECIFIED (13) Shortness of breath Code(s): R06.02 - SHORTNESS OF BREATH
[2018-12-05] MEDS: predniSONE 10 MG TABLET (UD) PO SCH (21:06)
[2018-12-06] MEDS: INSULIN SLIDING SCALE (NOVOLOG) 1 VIAL SQ SCH ×4 (06:19→22:22)
[2018-12-06] MEDS: ALBUTEROL SO4 2.5/IPRATROPIUM 0.5 INH SOL 3 ML VIAL.NEB. NEB SCH ×4 (08:00→20:17)
[2018-12-06] MEDS: ALPRAZolam 0.25 MG TABLET PO PRN (09:33)
[2018-12-06] MEDS: amLODIPine BESYLATE 5 MG TABLET (FP) PO SCH (09:34)
[2018-12-06] MEDS: busPIRone HCL 5 MG TABLET PO SCH ×2 (09:34→22:13)
[2018-12-06] MEDS: LOSARTAN POTASSIUM 50 MG TABLET (FP) PO SCH (09:35)
[2018-12-06] MEDS: PANTOPRAZOLE 40 MG TABLET (FP) PO SCH (09:35)
[2018-12-06] MEDS: LEFLUNOMIDE 10 MG TABLET PO SCH (09:35)
[2018-12-06] MEDS: ESCITALOPRAM OXALATE 10 MG TABLET (FP) PO SCH (09:35)
[2018-12-06] MEDS: ATOVAQUONE 750 MG/5 ML (UNIT-DOSE PACKAGING) PO SCH (09:36)
[2018-12-06] MEDS: predniSONE 10 MG TABLET (UD) PO SCH ×2 (09:36→22:14)
[2018-12-06] MEDS: ASPIRIN COATED 81 MG TABLET.EC PO SCH (09:37)
--- NOTE | 2018-12-06 10:44 | PN ---
Progress Note (short form) - Note Progress Note: PULMONARY Still with shortness of breath, cough. Vital Signs Period Temp Pulse Resp BP Sys/Medeiros Pulse Ox Last 24 Hr 97.3 F-97.8 F 93-104 20-20 99-102/67-70 95 Gen: NAD at rest Heart: RRR Lung: distant breath sounds Abd: soft, nontender Ext: no edema CBC, BMP 12/01/18 06:48 12/01/18 06:48 Active Medications Acetaminophen (Tylenol -) 650 mg PO Q4H PRN PRN Reason: PAIN OR FEVER Albuterol Sulfate (Ventolin 0.083% Nebulizer Soln -) 1 amp NEB RQ4H PRN PRN Reason: SHORT OF BREATH/WHEEZING Last Admin: 11/29/18 04:39 Dose: 1 amp Albuterol/Ipratropium (Duoneb -) 1 amp NEB RQID [facility] Last Admin: 12/06/18 08:00 Dose: 1 amp Alprazolam (Xanax -) 0.25 mg PO Q8H PRN PRN Reason: ANXIETY Last Admin: 12/06/18 09:33 Dose: 0.25 mg Amlodipine Besylate (Norvasc -) 5 mg PO DAILY [facility] Last Admin: 12/06/18 09:34 Dose: 5 mg Aspirin (Ecotrin -) 81 mg PO DAILY [facility] Last Admin: 12/06/18 09:37 Dose: 81 mg Atovaquone (Mepron -) 1,500 mg PO DAILY@0800 [facility] Last Admin: 12/06/18 09:36 Dose: 1,500 mg Buspirone HCl (Buspar -) 5 mg PO BID [facility] Last Admin: 12/06/18 09:34 Dose: 5 mg Escitalopram Oxalate (Lexapro -) 10 mg PO DAILY [facility] Last Admin: 12/06/18 09:35 Dose: 10 mg Insulin Aspart (Novolog Vial Sliding Scale -) 1 vial SQ ACHS [facility]; Protocol Last Admin: 12/06/18 06:19 Dose: Not Given Leflunomide (Arava -) 20 mg PO DAILY [facility] Last Admin: 12/06/18 09:35 Dose: 20 mg Losartan Potassium (Cozaar -) 100 mg PO DAILY [facility] Last Admin: 12/06/18 09:35 Dose: 100 mg Metoprolol Succinate (Toprol Xl -) 50 mg PO DAILY [facility] Last Admin: 12/06/18 09:35 Dose: 50 mg Morphine Sulfate (Morphine Sulfate) 2 mg IVPUSH Q4H PRN PRN Reason: PAIN LEVEL 6-10 Last Admin: 12/05/18 08:55 Dose: 2 mg Pantoprazole Sodium (Protonix -) 40 mg PO DAILY [facility] Last Admin: 12/06/18 09:35 Dose: 40 mg Prednisone (Deltasone -) 30 mg PO BID [facility] Last Admin: 12/06/18 09:36 Dose: 30 mg Sulfasalazine (Azulfidine En-Tabs -) 1,000 mg PO BID [facility] Last Admin: 12/06/18 09:35 Dose: 1,000 mg A/P Acute on Chronic Hypoxic and Hypercapneic Respiratory Failure Acute COPD Exacerbation Metastatic Lung Cancer Lactic Acidosis LV Diastolic Dysfunction HTN Hyperlipidemia Rheumatoid Arthritis Anemia - prednisone taper - titrate morphine, benzos to comfort - inhaled bronchodilators - O2 to keep SpO2 >90% - DVT prophylaxis - agree with palliative placement
--- NOTE | 2018-12-06 11:20 | PN ---
Progress Note, Physician Chief Complaint: SOB Stage 4 Lung CA History of Present Illness: Previous notes and events reviewed awake and alert NAD sts breathing is the same, continues with cough no acute events overnight denies chest pain patient is pending insurance auth for d/c to SNF or higher level of care facility - Current Medication List Current Medications: Active Medications Acetaminophen (Tylenol -) 650 mg PO Q4H PRN PRN Reason: PAIN OR FEVER Albuterol Sulfate (Ventolin 0.083% Nebulizer Soln -) 1 amp NEB RQ4H PRN PRN Reason: SHORT OF BREATH/WHEEZING Last Admin: 11/29/18 04:39 Dose: 1 amp Albuterol/Ipratropium (Duoneb -) 1 amp NEB RQID [facility] Last Admin: 12/06/18 08:00 Dose: 1 amp Alprazolam (Xanax -) 0.25 mg PO Q8H PRN PRN Reason: ANXIETY Last Admin: 12/06/18 09:33 Dose: 0.25 mg Amlodipine Besylate (Norvasc -) 5 mg PO DAILY [facility] Last Admin: 12/06/18 09:34 Dose: 5 mg Aspirin (Ecotrin -) 81 mg PO DAILY [facility] Last Admin: 12/06/18 09:37 Dose: 81 mg Atovaquone (Mepron -) 1,500 mg PO DAILY@0800 [facility] Last Admin: 12/06/18 09:36 Dose: 1,500 mg Buspirone HCl (Buspar -) 5 mg PO BID [facility] Last Admin: 12/06/18 09:34 Dose: 5 mg Escitalopram Oxalate (Lexapro -) 10 mg PO DAILY [facility] Last Admin: 12/06/18 09:35 Dose: 10 mg Insulin Aspart (Novolog Vial Sliding Scale -) 1 vial SQ ACHS [facility]; Protocol Last Admin: 12/06/18 06:19 Dose: Not Given Leflunomide (Arava -) 20 mg PO DAILY [facility] Last Admin: 12/06/18 09:35 Dose: 20 mg Losartan Potassium (Cozaar -) 100 mg PO DAILY [facility] Last Admin: 12/06/18 09:35 Dose: 100 mg Metoprolol Succinate (Toprol Xl -) 50 mg PO DAILY [facility] Last Admin: 12/06/18 09:35 Dose: 50 mg Morphine Sulfate (Morphine Sulfate) 2 mg IVPUSH Q4H PRN PRN Reason: PAIN LEVEL 6-10 Last Admin: 12/05/18 08:55 Dose: 2 mg Pantoprazole Sodium (Protonix -) 40 mg PO DAILY [facility] Last Admin: 12/06/18 09:35 Dose: 40 mg Prednisone (Deltasone -) 30 mg PO BID [facility] Last Admin: 12/06/18 09:36 Dose: 30 mg Sulfasalazine (Azulfidine En-Tabs -) 1,000 mg PO BID [facility] Last Admin: 12/06/18 09:35 Dose: 1,000 mg - Objective Vital Signs: Vital Signs Temperature 97.8 F 12/06/18 06:00 Pulse Rate 93 H 12/06/18 06:00 Respiratory Rate 20 12/05/18 21:00 Blood Pressure 102/67 12/06/18 06:00 O2 Sat by Pulse Oximetry (%) 95 12/05/18 21:00 Constitutional: Yes: No Distress, Calm Eyes: Yes: Conjunctiva Clear HENT: Yes: Atraumatic Cardiovascular: Yes: Regular Rate and Rhythm Respiratory: Yes: Regular, Diminished, On Nasal O2, Tachypnea Gastrointestinal: Yes: Normal Bowel Sounds, Soft Genitourinary: Yes: Incontinence Musculoskeletal: Yes: Muscle Weakness Extremities: Yes: WNL Edema: No Neurological: Yes: Alert, Oriented Psychiatric: Yes: Alert, Oriented Labs: CBC, BMP 12/01/18 06:48 12/01/18 06:48 INR, PTT INR 1.13 (0.83-1.09) H 11/23/18 03:38 Microbiology 11/23/18 03:38 Blood - Peripheral Venous Blood Culture - Final NO GROWTH AFTER 5 DAYS INCUBATION 11/23/18 03:38 Blood - Peripheral Venous Blood Culture - Final NO GROWTH AFTER 5 DAYS INCUBATION Problem List - Problems (1) COPD with acute exacerbation Assessment/Plan: -Pulm on board -O2 via NC -keep SpO2 >90% -Prednisone -Bronchodilators Code(s): J44.1 - CHRONIC OBSTRUCTIVE PULMONARY DISEASE W (ACUTE) EXACERBATION (2) Stage 4 lung cancer Assessment/Plan: -Pulm on board -O2 via NC -keep SpO2 >90% -IV Medrol -Bronchodilators -Oncology on board -Arava Code(s): C34.90 - MALIGNANT NEOPLASM OF UNSP PART OF UNSP BRONCHUS OR LUNG Qualifiers: Laterality: unspecified laterality Qualified Code(s): C34.90 - Malignant neoplasm of unspecified part of unspecified bronchus or lung (3) HTN (hypertension) Assessment/Plan: -Norvasc, Cozaar, Toprol -low Na diet Code(s): I10 - ESSENTIAL (PRIMARY) HYPERTENSION Qualifiers: Hypertension type: unspecified Qualified Code(s): I10 - Essential (primary ) hypertension (4) Acute on chronic respiratory failure with hypoxemia Assessment/Plan: -Pulm on board -O2 via NC -keep SpO2 >90% -Prednisone -Bronchodilators Code(s): J96.21 - ACUTE AND CHRONIC RESPIRATORY FAILURE WITH HYPOXIA (5) Diabetes Assessment/Plan: -BGM ACBK -ISS Code(s): E11.9 - TYPE 2 DIABETES MELLITUS WITHOUT COMPLICATIONS Qualifiers: Diabetes mellitus complication status: without complication (6) GERD (gastroesophageal reflux disease) Assessment/Plan: -Pantoprazole Code(s): K21.9 - GASTRO-ESOPHAGEAL REFLUX DISEASE WITHOUT ESOPHAGITIS (7) Metastatic lung cancer (metastasis from lung to other site) Assessment/Plan: -Pulm on board -O2 via NC -keep SpO2 >90% -Prednisone -Bronchodilators -Oncology on board -Arava -re-consult palliative~patient is refusing [place], discuss goals of care in regards to comfort care, DNH Code(s): C34.90 - MALIGNANT NEOPLASM OF UNSP PART OF UNSP BRONCHUS OR LUNG (8) Anxiety Assessment/Plan: -Lexapro, Buspar -Xanax PRN added Code(s): F41.9 - ANXIETY DISORDER, UNSPECIFIED (9) CHF exacerbation Assessment/Plan: -Pulm on board -Lasix -daily weights -keep SpO2 >90% Code(s): I50.9 - HEART FAILURE, UNSPECIFIED Assessment/Plan see problem list dvt ppx DNR/DNI patient will need SNF or higher level of care facility for discharge Palliative Consult
[2018-12-06] MEDS ORDERED: LORazepam 0.5 MG TABLET PO PRN (18:18)
[2018-12-06] MEDS ORDERED: MORPHINE SULFATE 2 MG/ML VIAL IVPUSH PRN (18:18)
[2018-12-06] MEDS: traMADol HCL 50 MG TABLET PO PRN (20:47)
[2018-12-07 08:00] LABS: HEMOGLOBIN 11.3 GM/dL (10.7-15.3); MCH 30.7 pg (25.7-33.7); MCHC 32.3 g/dl (32.0-36.0); MEAN CELL VOLUME 94.9 fl (80-96); MEAN PLT VOLUME 8.8 fl (7.5-11.1); PLATELET COUNT 220 K/MM3 (134-434); RBC 3.69 M/mm3 (3.60-5.2); RDW 18.4 % (11.6-15.6); WHITE BLOOD COUNT 10.3 K/mm3 (4.0-10.0)
[2018-12-07] MEDS: ALBUTEROL SO4 2.5/IPRATROPIUM 0.5 INH SOL 3 ML VIAL.NEB. NEB SCH ×2 (08:25→11:40)
[2018-12-07 09:03] LABS: ALBUMIN 2.7 g/dl (3.4-5.0); BILIRUBIN,TOTAL 1.3 mg/dL (0.2-1); BLOOD UREA NITROGEN 96.4 mg/dL (7-18); CALCIUM 8.9 mg/dL (8.5-10.1); CREATININE 3.1 mg/dL (0.55-1.3); POTASSIUM 4.8 mmol/L (3.5-5.1); TOT PROT 5.8 g/dl (6.4-8.2)
[2018-12-07] MEDS: LEFLUNOMIDE 10 MG TABLET PO SCH (09:08)
[2018-12-07] MEDS: ATOVAQUONE 750 MG/5 ML (UNIT-DOSE PACKAGING) PO SCH (09:08)
[2018-12-07] MEDS: PANTOPRAZOLE 40 MG TABLET (FP) PO SCH (09:09)
[2018-12-07] MEDS: busPIRone HCL 5 MG TABLET PO SCH (09:09)
[2018-12-07] MEDS: LOSARTAN POTASSIUM 50 MG TABLET (FP) PO SCH (09:09)
[2018-12-07] MEDS: ESCITALOPRAM OXALATE 10 MG TABLET (FP) PO SCH (09:09)
[2018-12-07] MEDS: ASPIRIN COATED 81 MG TABLET.EC PO SCH (09:09)
[2018-12-07] MEDS: amLODIPine BESYLATE 5 MG TABLET (FP) PO SCH (09:09)
[2018-12-07] MEDS: predniSONE 10 MG TABLET (UD) PO SCH (09:09)
[2018-12-07] MEDS: traMADol HCL 50 MG TABLET PO PRN (09:24)
--- NOTE | 2018-12-07 10:50 | PN ---
Progress Note, Physician History of Present Illness: Ms. Fulton is a 73 year old black woman with a past medical history of stage 4 lung cancer (s/p right upper lobe removal, currently on immunotherapy), COPD ( 5L at home), diastolic CHF ([facility] 10/2018: normal LVEF; abnormal diastrolic compliance;small pericardial effusion), ,moderate pulmonary HTN, here today for evaluation of shortness of breath and bilateral LE edema that worsened over the past 48 hours. She notes acute on chronic SOB tonight despite nebulizer use at her Skilled [facility]. - Current Medication List Current Medications: Active Medications Acetaminophen (Tylenol -) 650 mg PO Q4H PRN PRN Reason: PAIN OR FEVER Albuterol Sulfate (Ventolin 0.083% Nebulizer Soln -) 1 amp NEB RQ4H PRN PRN Reason: SHORT OF BREATH/WHEEZING Last Admin: 11/29/18 04:39 Dose: 1 amp Albuterol/Ipratropium (Duoneb -) 1 amp NEB RQID [facility] Last Admin: 12/07/18 08:25 Dose: 1 amp Amlodipine Besylate (Norvasc -) 5 mg PO DAILY [facility] Last Admin: 12/07/18 09:09 Dose: 5 mg Aspirin (Ecotrin -) 81 mg PO DAILY [facility] Last Admin: 12/07/18 09:09 Dose: 81 mg Atovaquone (Mepron -) 1,500 mg PO DAILY@0800 [facility] Last Admin: 12/07/18 09:08 Dose: 1,500 mg Buspirone HCl (Buspar -) 5 mg PO BID [facility] Last Admin: 12/07/18 09:09 Dose: 5 mg Escitalopram Oxalate (Lexapro -) 10 mg PO DAILY [facility] Last Admin: 12/07/18 09:09 Dose: 10 mg Insulin Aspart (Novolog Vial Sliding Scale -) 1 vial SQ ACHS [facility]; Protocol Last Admin: 12/06/18 22:22 Dose: Not Given Leflunomide (Arava -) 20 mg PO DAILY [facility] Last Admin: 12/07/18 09:08 Dose: 20 mg Lorazepam (Ativan -) 0.5 mg PO Q8H PRN PRN Reason: ANXIETY Last Admin: 12/07/18 09:09 Dose: 0.5 mg Losartan Potassium (Cozaar -) 100 mg PO DAILY [facility] Last Admin: 12/07/18 09:09 Dose: 100 mg Metoprolol Succinate (Toprol Xl -) 50 mg PO DAILY [facility] Last Admin: 12/07/18 09:09 Dose: 50 mg Morphine Sulfate (Morphine Sulfate) 2 mg IVPUSH Q4H PRN PRN Reason: PAIN LEVEL 6-10 Pantoprazole Sodium (Protonix -) 40 mg PO DAILY [facility] Last Admin: 12/07/18 09:09 Dose: 40 mg Prednisone (Deltasone -) 30 mg PO BID [facility] Last Admin: 12/07/18 09:09 Dose: 30 mg Sulfasalazine (Azulfidine En-Tabs -) 1,000 mg PO BID [facility] Last Admin: 12/07/18 09:09 Dose: 1,000 mg Tramadol HCl (Ultram -) 50 mg PO Q8H PRN PRN Reason: PAIN LEVEL 6-10 Last Admin: 12/07/18 09:24 Dose: 50 mg - Objective Vital Signs: Vital Signs Temperature 97.5 F L 12/07/18 05:00 Pulse Rate 92 H 12/07/18 05:00 Respiratory Rate 21 H 12/07/18 05:00 Blood Pressure 111/66 12/07/18 05:00 O2 Sat by Pulse Oximetry (%) 95 12/06/18 21:00 Eyes: Yes: WNL, Conjunctiva Clear, EOM Intact HENT: Yes: WNL, Atraumatic, Normocephalic Neck: Yes: WNL, Supple, Trachea Midline Cardiovascular: Yes: WNL, Regular Rate and Rhythm Respiratory: Yes: Diminished Gastrointestinal: Yes: WNL, Normal Bowel Sounds Genitourinary: Yes: WNL Musculoskeletal: Yes: WNL Extremities: Yes: WNL Edema: No Integumentary: Yes: WNL ...Motor Strength: WNL Psychiatric: Yes: WNL Labs: CBC, BMP 12/07/18 06:50 12/07/18 06:50 INR, PTT INR 1.13 (0.83-1.09) H 11/23/18 03:38 Assessment/Plan - Problems (1) HLD (hyperlipidemia) Code(s): E78.5 - HYPERLIPIDEMIA, UNSPECIFIED (2) Stage 4 lung cancer Assessment/Plan: extensive bilateral lung masses with liver metastases. 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 Pain management. Keep comfortable. Pt A&Ox3; only relatively comfortable position is sitting upright in bed with legs horizontal. C/o trying to bring up phlegm, but unable to do so alone; requests chest physiotherapy. Code(s): C34.90 - MALIGNANT NEOPLASM OF UNSP PART OF UNSP BRONCHUS OR LUNG Qualifiers: Laterality: unspecified laterality Qualified Code(s): C34.90 - Malignant neoplasm of unspecified part of unspecified bronchus or lung (3) HTN (hypertension) Assessment/Plan: On losartan and metoprolol; will discontinue furosemide (rising BUN/Cr). ECHO: normal LVEF. Code(s): I10 - ESSENTIAL (PRIMARY) HYPERTENSION Qualifiers: Hypertension type: unspecified Qualified Code(s): I10 - Essential (primary ) hypertension (4) Acute on chronic diastolic CHF (congestive heart failure) Assessment/Plan: On losartan, amlodipine, furosemide. Avoid excessive dehydration; will discontinue furosemide(rising BUN; no JVD; SOB primarily due to extensive lung CA; repeat CXR if necessary--some pleural fluid noted initially). F/u BUn/Cr, electrolytes, daily wt, Is and Os. Code(s): I50.33 - ACUTE ON CHRONIC DIASTOLIC (CONGESTIVE) HEART FAILURE (5) Hypoalbuminemia Code(s): E88.09 - OTH DISORDERS OF PLASMA-PROTEIN METABOLISM, NEC (6) Elevated troponin Assessment/Plan: mildly elevated TNI (0.13); was as high as 0.44 on admission in October. While CAD cannot be excluded (long hx cigarettes; HTN; hyperlipidemia), pt has multiple factors contributing to demand ischemia, including CA disease process with respiratory failure, CHF, tachycardia, F/u serially; given advanced state of cancer, would treat conservatively. Code(s): R74.8 - ABNORMAL LEVELS OF OTHER SERUM ENZYMES (7) Elevated lactic acid level Code(s): R79.89 - OTHER SPECIFIED ABNORMAL FINDINGS OF BLOOD CHEMISTRY
[2018-12-07] MEDS: INSULIN SLIDING SCALE (NOVOLOG) 1 VIAL SQ SCH (11:36)
[2018-12-07 12:10] VITALS: BP 112/72; PULSE 97; TEMP 97.9
--- NOTE | 2018-12-07 12:16 | DS ---
Physical Examination Vital Signs: Vital Signs Temperature 97.9 F 12/07/18 09:00 Pulse Rate 97 H 12/07/18 09:00 Respiratory Rate 18 12/07/18 09:00 Blood Pressure 112/72 12/07/18 09:00 O2 Sat by Pulse Oximetry (%) 91 L 12/07/18 09:00 Findings/Remarks: Laboratory Results - last 24 hr 12/06/18 12/07/18 12/07/18 22:19 06:50 06:50 WBC 10.3 H RBC 3.69 Hgb 11.3 Hct 35.0 MCV 94.9 MCH 30.7 MCHC 32.3 RDW 18.4 H Plt Count 220 D MPV 8.8 Sodium 136 Potassium 4.8 Chloride 96 L Carbon Dioxide 28 Anion Gap 13 BUN 96.4 H Creatinine 3.1 H Est GFR (CKD-EPI)AfAm 16.60 Est GFR (CKD-EPI)NonAf 14.32 POC Glucometer 106 Random Glucose 99 Calcium 8.9 Total Bilirubin 1.3 H AST 32 ALT 13 Alkaline Phosphatase 130 H Total Protein 5.8 L Albumin 2.7 L 12/07/18 12/07/18 06:52 10:53 WBC RBC Hgb Hct MCV MCH MCHC RDW Plt Count MPV Sodium Potassium Chloride Carbon Dioxide Anion Gap BUN Creatinine Est GFR (CKD-EPI)AfAm Est GFR (CKD-EPI)NonAf POC Glucometer 111 110 Random Glucose Calcium Total Bilirubin AST ALT Alkaline Phosphatase Total Protein Albumin Active Medications Generic Name Dose Route Start Last Admin Trade Name Freq PRN Reason Stop Dose Admin Acetaminophen 650 mg 11/28/18 19:14 Tylenol - PO Q4H PRN PAIN OR FEVER Albuterol Sulfate 1 amp 11/28/18 19:14 11/29/18 04:39 Ventolin 0.083% Nebulizer Soln - NEB 1 amp RQ4H PRN Administration SHORT OF BREATH/WHEEZING Albuterol/Ipratropium 1 amp 11/28/18 20:00 12/07/18 08:25 Duoneb - NEB 1 amp RQID RICHARD Administration Amlodipine Besylate 5 mg 11/29/18 10:00 12/07/18 09:09 Norvasc - PO 5 mg DAILY [facility] Administration Aspirin 81 mg 11/25/18 10:15 12/07/18 09:09 Ecotrin - PO 81 mg DAILY [facility] Administration Atovaquone 1,500 mg 11/29/18 08:00 12/07/18 09:08 Mepron - PO 1,500 mg DAILY@0800 [facility] Administration Buspirone HCl 5 mg 11/28/18 22:00 12/07/18 09:09 Buspar - PO 5 mg BID [facility] Administration Escitalopram Oxalate 10 mg 11/25/18 12:45 12/07/18 09:09 Lexapro - PO 10 mg DAILY [facility] Administration Insulin Aspart 1 vial 11/27/18 16:30 12/07/18 11:36 Novolog Vial Sliding Scale - SQ Not Given ACHS [facility] Protocol Leflunomide 20 mg 11/29/18 10:00 12/07/18 09:08 Arava - PO 20 mg DAILY [facility] Administration Lorazepam 0.5 mg 12/06/18 18:18 12/07/18 09:09 Ativan - PO 0.5 mg Q8H PRN Administration ANXIETY Losartan Potassium 100 mg 11/25/18 10:13 12/07/18 09:09 Cozaar - PO 100 mg DAILY [facility] Administration Metoprolol Succinate 50 mg 11/25/18 10:15 12/07/18 09:09 Toprol Xl - PO 50 mg DAILY [facility] Administration Morphine Sulfate 2 mg 12/06/18 18:18 Morphine Sulfate IVPUSH Q4H PRN PAIN LEVEL 6-10 Pantoprazole Sodium 40 mg 11/29/18 10:00 12/07/18 09:09 Protonix - PO 40 mg DAILY [facility] Administration Prednisone 30 mg 12/05/18 22:00 12/07/18 09:09 Deltasone - PO 30 mg BID [facility] Administration Sulfasalazine 1,000 mg 11/28/18 22:00 12/07/18 09:09 Azulfidine En-Tabs - PO 1,000 mg BID [facility] Administration Tramadol HCl 50 mg 12/06/18 18:16 12/07/18 09:24 Ultram - PO 50 mg Q8H PRN Administration PAIN LEVEL 6-10 Microbiology 11/23/18 03:38 Blood - Peripheral Venous Blood Culture - Final NO GROWTH AFTER 5 DAYS INCUBATION 11/23/18 03:38 Blood - Peripheral Venous Blood Culture - Final NO GROWTH AFTER 5 DAYS INCUBATION Constitutional: Yes: No Distress, Calm Eyes: Yes: Conjunctiva Clear HENT: Yes: Atraumatic Cardiovascular: Yes: Regular Rate and Rhythm Respiratory: Yes: Regular, Diminished, On Nasal O2 Gastrointestinal: Yes: Normal Bowel Sounds, Soft Renal/: Yes: Incontinence Musculoskeletal: Yes: Muscle Weakness Extremities: Yes: WNL Edema: No Integumentary: Yes: Pressure Ulcer Wound/Incision: Yes: Dressing Dry and Intact Neurological: Yes: Alert, Oriented Psychiatric: Yes: Alert, Oriented Labs: CBC, BMP 12/07/18 06:50 12/07/18 06:50 Discharge Summary Problems reviewed: Yes Reason For Visit: ACUTE EXACERBATION OF CHRONIC OBSTRUCTION OF Current Active Problems CHF exacerbation (Acute) COPD exacerbation (Acute) COPD with acute exacerbation (Acute) Elevated lactic acid level (Acute) HLD (hyperlipidemia) (Acute) Hypoalbuminemia (Acute) Stage 4 lung cancer (Acute) HTN (hypertension) (Chronic) Hospital Course: 73 year old female with PMH of stage 4 lung CA s/p partial lobectomy (PD-1 checkpoint inhibitor therapy), CHF, HTN/HLD, RA, DM, COPD who arrived to the ED acute on chronic SOB (despite using nebs at OR). Patient describes difficulty breathing, sob, chest tightness similar to her prior exacerbation. Patient recently treated for UTI, (finished abx 1 week ago). Patient denies chest pain, fevers, chills. Denies N/V/D/C. Patient treated with IV steroids and breathing has improved. Switched to PO steroids and will be discharged to [facility]. Condition: Stable - Instructions Diet, Activity, Other Instructions: follow up with pmd follow up with pulmonary follow up with Oncology as scheduled return to ER if develop pain, respiratory distress, chest pain Referrals: Lior Toro MD [Primary Care Provider] - Disposition: ALF FACILITY - Home Medications Comprehensive Discharge Medication List: Ambulatory Orders Alprazolam [Xanax] 0.25 mg PO Q12H 06/15/18 Losartan Potassium [Cozaar -] 50 mg PO DAILY 06/15/18 Pantoprazole Sodium [Protonix -] 40 mg PO DAILY 06/15/18 Zolpidem Tartrate [Ambien] 10 mg PO DAILY 06/15/18 Acetaminophen [Tylenol .Extra-Strength -] 500 mg PO Q6H PRN tablet 06/19/18 Atovaquone [Mepron Oral Solution -] 1,500 mg PO DAILY@0800 #1 bottle 06/19/18 Albuterol Sulfate Inhaler - [Ventolin HFA Inhaler -] 2 puff IH Q6H PRN inhaler 06/25/18 Amlodipine Besylate [Norvasc -] 5 mg PO DAILY tablet 06/25/18 Sulfasalazine [Azulfidine En-Tabs -] 1,000 mg PO BID #120 tablet. 06/25/18 traMADol HCL [Ultram -] 50 mg PO Q8H PRN tablet MDD 3 06/25/18 Albuterol 0.083% Nebulizer Yudy [Ventolin 0.083% Nebulizer Soln -] 1 amp NEB RQID amp 09/24/18 Guaifenesin [Robitussin -] 10 ml PO Q6H PRN cup 09/24/18 Selin-Cath Flush [Selin-Cath Flush -] 10 ml IVPUSH PRN PRN ml 10/03/18 Buspirone HCl [Buspar -] 5 mg PO BID tablet 10/10/18 Leflunomide [Arava -] 20 mg PO DAILY #60 tablet 11/02/18 Nystatin Oral Suspension - [Nystatin Oral Susp 133767 Units/5 ML -] 500,000 units PO Q6HPO cup 11/02/18 Heparin - 5,000 unit SQ Q12H 11/23/18 Silver Sulfadiazine 1% Top Cr [Silvadene -] 1 applic TP DAILY 11/23/18 Acetaminophen [Tylenol .Regular Strength -] 650 mg PO Q4H PRN tablet 12/07/18 Albuterol 0.083% Nebulizer Yudy [Ventolin 0.083% Nebulizer Soln -] 1 amp NEB RQ4H PRN amp 12/07/18 Albuterol 2.5/Ipratropium 0.5 [Duoneb -] 1 amp NEB RQID amp 12/07/18 Alprazolam [Xanax] 0.25 mg PO Q8H PRN tablet MDD 3 12/07/18 Aspirin Coated [Ecotrin -] 81 mg PO DAILY tablet.ec 12/07/18 Escitalopram Oxalate [Lexapro -] 10 mg PO DAILY tablet 12/07/18 Insulin Sliding Scale [Novolog Vial Sliding Scale -] 1 vial SQ ACHS units 12/07 LORazepam [Ativan] 0.5 mg PO Q8H PRN tablet MDD 3 12/07/18 Metoprolol Succinate [Toprol XL -] 50 mg PO DAILY tab.sr.24h 12/07/18 Morphine Sulfate 2 mg IVPUSH Q4H PRN vial MDD 6 12/07/18 predniSONE [Deltasone -] 30 mg PO BID tablet 12/07/18 traMADol HCL [Ultram -] 50 mg PO Q8H PRN tablet MDD 3 12/07/18
--- NOTE | 2018-12-07 12:48 | PN ---
Progress Note (short form) - Note Progress Note: PULMONARY Still with shortness of breath, cough. VSS/Afebrile Gen: NAD at rest Heart: RRR Lung: distant breath sounds Abd: soft, nontender Ext: no edema labs/meds/images noted A/P Acute on Chronic Hypoxic and Hypercapneic Respiratory Failure Acute COPD Exacerbation Metastatic Lung Cancer Lactic Acidosis LV Diastolic Dysfunction HTN Hyperlipidemia Rheumatoid Arthritis Anemia - prednisone taper - titrate morphine, benzos to comfort - inhaled bronchodilators - O2 to keep SpO2 >90% - DVT prophylaxis - agree with palliative placement Payal MARTINEZ MD
== END 2018-12-07 15:31 | DRG 291 ==
LOC: JER 02:08 → JERBED 04:58 → J2W 20:40 → JERBED 11-24 03:34 → J4S 11-24 03:35 → JSAMEDAYSX 11-26 17:22 → J6S 11-26 17:23
PROVIDERS: ADMIT Family Medicine; ATTEND Family Medicine
DX: I11.0 Hypertensive heart disease with heart failure (principal); J96.22 Acute and chronic respiratory failure with hypercapnia; J96.21 Acute and chronic respiratory failure with hypoxia; C34.90 Malignant neoplasm of unspecified part of unspecified bronchus or lung; J44.1 Chronic obstructive pulmonary disease with (acute) exacerbation; E87.2 Acidosis; I24.8 Other forms of acute ischemic heart disease; C78.7 Secondary malignant neoplasm of liver and intrahepatic bile duct; I31.3 Pericardial effusion (noninflammatory); I50.33 Acute on chronic diastolic (congestive) heart failure; Z87.891 Personal history of nicotine dependence; M06.9 Rheumatoid arthritis, unspecified; E11.9 Type 2 diabetes mellitus without complications; F32.9 Major depressive disorder, single episode, unspecified; F41.9 Anxiety disorder, unspecified; K21.9 Gastro-esophageal reflux disease without esophagitis; E78.5 Hyperlipidemia, unspecified; G47.00 Insomnia, unspecified; Z99.81 Dependence on supplemental oxygen; E88.09 Other disorders of plasma-protein metabolism, not elsewhere classified; D64.9 Anemia, unspecified; I27.20 Pulmonary hypertension, unspecified; Z66 Do not resuscitate; Z79.4 Long term (current) use of insulin
CPT/HCPCS: 36415; 71045-TC-FY; 80053; 81003; 82550; 82803; 82962; 83605; 83735; 83880; 84484; 85025; 85027; 85610; 85730; 87040; 93005; 93010; 94640; 94660; 97161-GP; 99285-25; J1644

== ENCOUNTER 2018-12-09 15:47 | Inpatient (IN) | payer OTHER ==
[2018-12-09] MEDS ORDERED: ACETAMINOPHEN 1000 MG/100 ML VIAL (NON FORMULARY) IVPB ONE (16:00)
--- NOTE | 2018-12-09 16:26 | PDOC ---
Documentation entered by Jaydon Carl SCRIBE, acting as scribe for Jillian Leslie MD. Jillian Leslie MD: This documentation has been prepared by the Siddhartha villalba Daniel, SCRIBE, under my direction and personally reviewed by me in its entirety. I confirm that the documentation accurately reflects all work, treatment, procedures, and medical decision making performed by me. Attending Attestation - Resident Resident Name: ThomasGuy - ED Attending Attestation I have performed the following: I have examined & evaluated the patient, The case was reviewed & discussed with the resident, I agree w/resident's findings & plan - HPI HPI: 12/09/18 16:23 The patient is a 73 year old female with a past medical history of stage 4 lung cancer s/p right upper lobe removal (currently on immunotherapy), HTN, HLD, and COPD (5L home O2) here today from long-term for evaluation of shortness of breath, respiratory distress and hypoxia. history limited 2/2 clinical condition. provided by ems and aid. Allergies: aspirin PCP: Lior Toro 12/09/18 16:46 - Physicial Exam PE: 12/09/18 16:25 Agree with the resident's HPI and PE as documented in the electronic medical record. in moderate distress, NRB, EOMI, PERRL, nl conjunctiva, anicteric; neck supple. tachypneic, moderate respiratory distress, +tachycardic, b/l rhonchi, decreased BS on Right upper lobe. irregularly irregular. abdomen soft nontender. protuberant.. Back nontender. MORATAYA x4, no focal neuro deficits. No peripheral edema. normal color for ethnicity, WWP. 12/09/18 16:25 12/09/18 16:47 - Medical Decision Making 12/09/18 16:47 Vital Signs Temp Pulse Resp BP Pulse Ox 100 F H 133 H 22 H 142/105 H 90 L 12/09/18 15:54 12/09/18 15:54 12/09/18 15:54 12/09/18 15:54 12/09/18 15:54 ddx. infection, pna, malignancy, effusion, copd, chf, dehydration, anemia, electrolyte./metabolic derangements VS noted, LGF, will check rectal tachy and hypoxic immediately onto bipap basic labs, lytes, infectious workup. ABG CXR. IV vanc/zosyn for health care associated pna anticipate admission, higher level of care and ICU cs
[2018-12-09] MEDS ORDERED: morphine CARPU-JECT 4 MG/1 ML DISP.SYRIN IVPUSH ONE (16:37)
[2018-12-09] MEDS ORDERED: PIPERACILLIN/TAZOB 3.375 GM 3.375 GM in DEXTROSE 5%-WATER - 50 ML IVPB ONE (16:43)
[2018-12-09] MEDS ORDERED: VANCOMYCIN 1 GM in D5W (PRE-DOCKED) 1,000 MG/250 ML IVPB ONE (16:43)
[2018-12-09] MEDS ORDERED: morphine SULFATE 4 MG/ML VIAL ONE (16:47)
[2018-12-09] MEDS ORDERED: ACETAMINOPHEN INJECTION 100 ML IVPB ONE (16:47)
[2018-12-09] MEDS ORDERED: PIPERACILLIN/TAZOB 3.375 GM 3.375 GM/50 ML BAG IVPB ONE (16:47)
[2018-12-09 16:48] LABS: BASO % 0.1 % (0-2.0); HEMATOCRIT 40.6 % (32.4-45.2); HEMOGLOBIN 12.5 GM/dL (10.7-15.3); LYMPH % 7.8 % (8-40); MCH 29.8 pg (25.7-33.7); MCHC 30.8 g/dl (32.0-36.0); MEAN CELL VOLUME 96.9 fl (80-96); MEAN PLT VOLUME 8.5 fl (7.5-11.1); MONO % 5.5 % (3.8-10.2); NEUT % 86.6 % (42.8-82.8); PLATELET COUNT 290 K/MM3 (134-434); RBC 4.19 M/mm3 (3.60-5.2); RDW 18.6 % (11.6-15.6); WHITE BLOOD COUNT 13.5 K/mm3 (4.0-10.0)
[2018-12-09 17:01] LABS: VENOUS PC02 38.3 mmHg (38-52); VENOUS PH 7.33 (7.31-7.41)
[2018-12-09 17:02] LABS: VENOUS PO2 < 49 mmHg (28-48)
[2018-12-09 17:09] LABS: INR 1.53 (0.83-1.09); PROTHROMBIN TIME (PATIENT) 18.1 SEC (9.7-13.0)
[2018-12-09 17:17] LABS: BILIRUBIN,TOTAL 2.1 mg/dL (0.2-1); CALCIUM 9.9 mg/dL (8.5-10.1); CREATININE 4.3 mg/dL (0.55-1.3); TOT PROT 6.6 g/dl (6.4-8.2)
[2018-12-09] MEDS ORDERED: VANCOMYCIN 1 GRAM (PRE-DOCKED) 1,000 MG/250 ML BAG IVPB ONE (17:17)
[2018-12-09 17:20] LABS: BLOOD UREA NITROGEN 127.9 mg/dL (7-18); POTASSIUM 6.1 mmol/L (3.5-5.1)
--- NOTE | 2018-12-09 17:21 | PDOC ---
History of Present Illness - General Chief Complaint: Shortness of Breath Stated Complaint: DIFF. BREATHING Time Seen by Provider: 12/09/18 15:51 History Source: Family (Healthcareproxy ) Exam Limitations: Clinical Condition - History of Present Illness Initial Comments: 12/09/18 18:31 HPI: 73F PMH active lung Ca (no longer on treatment), HTN, CHF, DM, RA BIBEMS from [facility] for acutely worsened pain and difficulty breathing. Recently admitted to [facility] for difficulty breathing, discharged on 12/07/18. Healthcare proxy (HCP) at bedside states yesterday pt was complaining of increased pain and experiencing visual hallucinations. Came to ED today due to acutely worsening pain. Pt unable to localize the pain state it is "everywhere." There is a sacral decub. History limited 2/2 patient condition DNR/DNI Allergy to ASA Past History - Past Medical History Allergies/Adverse Reactions: Allergies Allergy/AdvReac Type Severity Reaction Status Date / Time aspirin AdvReac Mild Verified 11/23/18 02:51 Home Medications: Ambulatory Orders Losartan Potassium [Cozaar -] 50 mg PO DAILY 06/15/18 Pantoprazole Sodium [Protonix -] 40 mg PO DAILY 06/15/18 Zolpidem Tartrate [Ambien] 10 mg PO DAILY 06/15/18 Atovaquone [Mepron Oral Solution -] 1,500 mg PO DAILY@0800 #1 bottle 06/19/18 Amlodipine Besylate [Norvasc -] 5 mg PO DAILY tablet 06/25/18 Sulfasalazine [Azulfidine En-Tabs -] 1,000 mg PO BID #120 tablet. 06/25/18 Buspirone HCl [Buspar -] 5 mg PO BID tablet 10/10/18 Leflunomide [Arava -] 20 mg PO DAILY #60 tablet 11/02/18 Nystatin Oral Suspension - [Nystatin Oral Susp 273758 Units/5 ML -] 500,000 units PO Q6HPO cup 11/02/18 Heparin - 5,000 unit SQ Q12H 11/23/18 Silver Sulfadiazine 1% Top Cr [Silvadene -] 1 applic TP DAILY 11/23/18 Acetaminophen [Tylenol .Regular Strength -] 650 mg PO Q4H PRN tablet 12/07/18 Albuterol 2.5/Ipratropium 0.5 [Duoneb -] 1 amp NEB RQID amp 12/07/18 Escitalopram Oxalate [Lexapro -] 10 mg PO DAILY tablet 12/07/18 Insulin Sliding Scale [Novolog Vial Sliding Scale -] 1 vial SQ ACHS units 12/07 LORazepam [Ativan] 0.5 mg PO Q8H PRN tablet MDD 3 12/07/18 traMADol HCL [Ultram -] 50 mg PO Q8H PRN tablet MDD 3 12/07/18 Anemia: No Asthma: No Cancer: Yes (lung) Cardiac Disorders: No CVA: No COPD: Yes (copd) CHF: No Dementia: No Diabetes: Yes (Type 2) GI Disorders: Yes Disorders: No HTN: Yes Hypercholesterolemia: No Liver Disease: No Psychiatric Problems: Yes (anxiety) Seizures: No Thyroid Disease: No Lung CA: Yes - Surgical History Abdominal Surgery: No Appendectomy: No Cardiac Surgery: No Cholecystectomy: No Lung Surgery: Yes (right lobectomy 2014) Neurologic Surgery: No Orthopedic Surgery: No - Immunization History Immunization Up to Date: Yes - Psycho Social/Smoking Cessation Hx Smoking Status: Yes Smoking History: Former smoker Have you smoked in the past 12 months: No Number of Cigarettes Smoked Daily: 10 If you are a former smoker, when did you quit?: 12/16/14 Information on smoking cessation initiated: No 'Breaking Loose' booklet given: 08/24/15 Hx Alcohol Use: No Drug/Substance Use Hx: No Substance Use Type: None Hx Substance Use Treatment: No Review of Systems - Review of Systems Able to Perform ROS?: No (clinical condition ) Comments:: 12/09/18 18:31 ROS: unable to obtain 2/2 clinical condition + loose stool *Physical Exam - Vital Signs Last Vital Signs Temp Pulse Resp BP Pulse Ox 100 F H 133 H 22 H 142/105 H 90 L 12/09/18 15:54 12/09/18 15:54 12/09/18 15:54 12/09/18 15:54 12/09/18 15:54 - Physical Exam Comments: 12/09/18 18:31 PE: 100F on rectal GEN: Acutely distress. HEENT: NC/AT. No facial asymmetry. Supple neck w/ FROM. Speaking short sentences CV: S1/S2, RRR, no m/r/g LUNG: Coarse breath sounds b/l GI: soft, ndnt, +BS EXTREMITIES: No LE edema SKIN: warm, dry, normal turgor. There is a sacral decubitus ulcer. ED Treatment Course - LABORATORY CBC & Chemistry Diagram: 12/09/18 16:29 12/09/18 16:29 - ADDITIONAL ORDERS Additional order review: 12/09/18 16:29 RBC 4.19 MCV 96.9 H MCHC 30.8 L RDW 18.6 H MPV 8.5 Neutrophils % 86.6 H Lymphocytes % 7.8 L D Monocytes % 5.5 Eosinophils % 0.0 D Basophils % 0.1 Medical Decision Making - Critical Care Time Total Critical Care Time (minutes): 60 Critical Care Statement: The care of this patient involved high complexity decision making to prevent further life threatening deterioration of the patient 's condition and/or to evaluate & treat vital organ system(s) failure or risk of failure. - Medical Decision Making 12/09/18 16:57 MDM: 73F w/ active lung cancer (withdrew from treatment) BIBEMS from [facility] for acutely worsening of pain and shortness of breath. - sepsis workup - EKG - abx - morphine 12/09/18 17:26 Pt was found to have BPs 90s/30s (MAP 50) after morphine Elevated K, BUN, Cr, lactic acid - 1L NS - for Hyper-K: Calcium, bicarb, insulin, and D50 Discussed central venous access, DNR/DNI w/ healthcare proxy at bedside Does not want central venous access, resuscitative measures, diagnostic imaging (eg. CXR) Wants patient to be pain free and to be medically managed only DNR/DNI Admit to telemetry Signed out to PM team Discharge - Discharge Information Problems reviewed: Yes Clinical Impression/Diagnosis: Admission for palliative care, Metastatic lung cancer (metastasis from lung to other site), Lactic acid acidosis, Sepsis Condition: Stable - Follow up/Referral - Patient Discharge Instructions - Post Discharge Activity
[2018-12-09] MEDS ORDERED: DEXTROSE 50%-WATER - 25 GM/50 ML VIAL IVPUSH ONE (17:24)
[2018-12-09] MEDS ORDERED: CALCIUM GLUCONATE 10% - 1,000 MG/10 ML VIAL IVPUSH ONE (17:24)
[2018-12-09] MEDS ORDERED: SODIUM BICARBONATE 8.4% 50 MEQ/50 ML DISP.SYRIN IVPUSH ONE (17:24)
[2018-12-09] MEDS ORDERED: INSULIN REGULAR HUMAN 100 UNITS/ML *VIAL IVPUSH ONE (17:24)
[2018-12-09] MEDS ORDERED: SODIUM CHLORIDE 1,000 ML IV STA (17:25)
[2018-12-09 17:28] LABS: EPI CELLS 23.9 /HPF (0-5/HPF); HYALINE CASTS 138 /lpf (0-8); URINE APPEARANCE TURBID; URINE BILIRUBIN 3+ (NEGATIVE); URINE COLOR DK YELLOW; URINE GLUCOSE (UA) NEGATIVE (NEGATIVE); URINE KETONE TRACE (NEGATIVE); URINE LEUK ESTERASE TRACE (NEGATIVE); URINE NITRITE POSITIVE (NEGATIVE); URINE PROTEIN 1+ (NEGATIVE); URINE RBC 1 /hpf (0-4); URINE WBC 3 /hpf (0-5)
[2018-12-09 18:16] LABS: ANISOCYTOSIS 2+; MACROCYTOSIS 1+; PLATELET ESTIMATE NORMAL; TEAR DROP CELLS 1+
[2018-12-09] MEDS ORDERED: CALCIUM GLUCONATE 10% - 1,000 MG/10 ML VIAL ONE (18:23)
[2018-12-09] MEDS ORDERED: DEXTROSE 50%-WATER 25 GM/50 ML DISP.SYRIN ONE (18:24)
[2018-12-09] MEDS ORDERED: SODIUM BICARBONATE 8.4% 50 MEQ/50 ML VIAL ONE (18:25)
[2018-12-09] MEDS ORDERED: INSULIN REGULAR HUMAN 100 UNITS/ML *VIAL ONE (18:27)
[2018-12-09 18:58] LABS: URINE BACTERIA 37.5 /hpf (NEGATIVE)
[2018-12-09 19:00] LABS: URINE CRYSTALS MODERATE /hpf
--- NOTE | 2018-12-09 19:14 | PDOC ---
*Physical Exam - Vital Signs Last Vital Signs Temp Pulse Resp BP Pulse Ox 100.0 F H 108 H 28 H 145/125 H 100 12/09/18 16:05 12/09/18 18:45 12/09/18 18:45 12/09/18 18:45 12/09/18 18:45 - Physical Exam General Appearance: Yes: Nourished, Appropriately Dressed, Mild Distress, Other (obese, tired-appearing, on BiPap, periodically alert and responsive to voice, able to nod head when asked questions) HEENT: positive: EOMI, Hearing Grossly Normal. negative: Normal Voice (not speaking), Scleral Icterus (R), Scleral Icterus (L) Neck: negative: Tender Respiratory/Chest: positive: Other (mechanical breath sounds). negative: Respiratory Distress Cardiovascular: positive: Regular Rhythm, Regular Rate Gastrointestinal/Abdominal: positive: Soft. negative: Tender, Guarding, Rebound Musculoskeletal: positive: Normal Inspection Extremity: positive: Normal Inspection. negative: Coldness, Cyanosis Integumentary: positive: Normal Color, Dry, Warm. negative: Jaundice Neurologic: positive: Normal Response (responds to questioning, grunts when moved or uncomfortable position in bed). negative: Alert (periodically alert, non-verbal) ED Treatment Course - LABORATORY CBC & Chemistry Diagram: 12/09/18 16:29 12/09/18 16:29 - ADDITIONAL ORDERS Additional order review: Laboratory Results 12/09/18 12/09/18 12/09/18 17:11 16:29 16:29 PT with INR 18.10 H INR 1.53 H PTT (Actin FS) VBG pH 7.33 POC VBG pCO2 38.3 POC VBG pO2 < 49 H VBG HCO3 19.7 L VBG O2 Sat (Marie) 56.5 L VBG Base Excess -5.2 L Sodium Potassium Chloride Carbon Dioxide Anion Gap BUN Creatinine Est GFR (CKD-EPI)AfAm Est GFR (CKD-EPI)NonAf Random Glucose Lactic Acid Calcium Total Bilirubin AST ALT Alkaline Phosphatase Troponin I Total Protein Albumin Urine Color Dk yellow Urine Appearance Turbid Urine pH 5.0 Ur Specific Rumsey 1.023 Urine Protein 1+ H Urine Glucose (UA) Negative Urine Ketones Trace H Urine Blood 2+ H Urine Nitrite Positive H Urine Bilirubin 3+ H Urine Urobilinogen 1.0 Ur Leukocyte Esterase Trace Urine WBC (Auto) 3 Urine RBC (Auto) 1 Urine Casts (Auto) 138 U Pathogenic Cast Auto None seen U Epithel Cells (Auto) 23.9 Urine Crystals (Auto) Moderate Urine Bacteria (Auto) 37.5 12/09/18 12/09/18 12/09/18 16:29 16:29 16:29 PT with INR INR PTT (Actin FS) 30.5 VBG pH POC VBG pCO2 POC VBG pO2 VBG HCO3 VBG O2 Sat (Marie) VBG Base Excess Sodium 135 L Potassium 6.1 H* Chloride 96 L Carbon Dioxide 20 L Anion Gap 19 H BUN 127.9 H* Creatinine 4.3 H Est GFR (CKD-EPI)AfAm 11.17 Est GFR (CKD-EPI)NonAf 9.64 Random Glucose 119 H Lactic Acid 6.1 H* Calcium 9.9 Total Bilirubin 2.1 H AST 70 H ALT 32 Alkaline Phosphatase 171 H Troponin I Total Protein 6.6 Albumin 3.0 L Urine Color Urine Appearance Urine pH Ur Specific Rumsey Urine Protein Urine Glucose (UA) Urine Ketones Urine Blood Urine Nitrite Urine Bilirubin Urine Urobilinogen Ur Leukocyte Esterase Urine WBC (Auto) Urine RBC (Auto) Urine Casts (Auto) U Pathogenic Cast Auto U Epithel Cells (Auto) Urine Crystals (Auto) Urine Bacteria (Auto) 12/09/18 16:25 PT with INR INR PTT (Actin FS) VBG pH POC VBG pCO2 POC VBG pO2 VBG HCO3 VBG O2 Sat (Marie) VBG Base Excess Sodium Potassium Chloride Carbon Dioxide Anion Gap BUN Creatinine Est GFR (CKD-EPI)AfAm Est GFR (CKD-EPI)NonAf Random Glucose Lactic Acid Calcium Total Bilirubin AST ALT Alkaline Phosphatase Troponin I 0.33 H Total Protein Albumin Urine Color Urine Appearance Urine pH Ur Specific Rumsey Urine Protein Urine Glucose (UA) Urine Ketones Urine Blood Urine Nitrite Urine Bilirubin Urine Urobilinogen Ur Leukocyte Esterase Urine WBC (Auto) Urine RBC (Auto) Urine Casts (Auto) U Pathogenic Cast Auto U Epithel Cells (Auto) Urine Crystals (Auto) Urine Bacteria (Auto) 12/09/18 16:29 RBC 4.19 MCV 96.9 H MCHC 30.8 L RDW 18.6 H MPV 8.5 Neutrophils % 86.6 H Lymphocytes % 7.8 L D Monocytes % 5.5 Eosinophils % 0.0 D Basophils % 0.1 - Medications Given in the ED: ED Medications Discontinued Medications Generic Name Dose Route Start Last Admin Trade Name So PRN Reason Stop Dose Admin Acetaminophen 1,000 mg 12/09/18 16:00 12/09/18 16:53 Ofirmev Injection - IVPB 12/09/18 16:01 1,000 mg ONCE ONE Administration Calcium Gluconate 1,000 mg 12/09/18 17:24 12/09/18 18:51 Calcium Gluconate 10% - IVPUSH 12/09/18 17:25 1,000 mg ONCE ONE Administration Dextrose 25 gm 12/09/18 17:24 12/09/18 18:46 D50w (Vial) - IVPUSH 12/09/18 17:25 25 gm NOW ONE Administration Piperacillin Sod/Tazobactam 50 mls @ 100 mls/hr 12/09/18 16:43 12/09/18 17:18 Sod 3.375 gm/ Dextrose IVPB 12/09/18 17:12 100 mls/hr ONCE ONE Administration Protocol Sodium Chloride 1,000 mls @ 1,000 mls/hr 12/09/18 17:25 12/09/18 17:43 Normal Saline - IV 12/09/18 18:24 1,000 mls/hr ASDIR STA Administration Insulin Human Regular 5 units 12/09/18 17:24 12/09/18 18:46 Novolin R Vial *For Ivpush Or Iv Drip Only* IVPUSH 12/09/18 17:25 5 units ONCE ONE Administration Morphine Sulfate 4 mg 12/09/18 16:37 12/09/18 16:54 Morphine Injection - IVPUSH 12/09/18 16:38 4 mg ONCE ONE Administration Sodium Bicarbonate 50 meq 12/09/18 17:24 12/09/18 18:46 Sodium Bicarbonate 8.4% - IVPUSH 12/09/18 17:25 50 meq ONCE ONE Administration Vancomycin HCl 1,000 mg 12/09/18 16:43 12/09/18 17:27 Vancomycin (Pre-Docked) IVPB 12/09/18 16:44 1,000 mg ONCE ONE Administration Protocol Medical Decision Making - Medical Decision Making 12/09/18 19:10 Signed out to me by Dr. Thomas. 73F DNR/DNI with lung cancer, formerly in remission, now active, not in treatment SOB/dyspnea last week, discharged to [facility] Monday Back for worse pain, unspecified location Healthcare proxy at bedside Mental status in and out WBC 13.5 BUN 127.9 Cr 4.3 K 6.1 - given insulin Ca HCO3 UA+ for UTI Given morphine for pain control On BiPap for breathing comfort Needs comfort care, no diagnostic testing or intervention Sepsis + Metastatic Cancer + Multiorgan Failure [] admit [] no interventions [] comfort care 12/09/18 19:41 Had a long discussion with healthcare proxy Inés Contreras at bedside, who is a close friend. Discussed lab results, patient's wishes, and the interventions that we are capable of performing. Per HCP, patients wishes are to not suffer in her last days, and not prolong her . Discussed lab results, including UTI, probable PNA, liver metastases. Advised that patient's worsening organ damage is not survivable without significant intervention, including intubation and dialysis. HCP insists that this is not what patient would want. Asked about antibiotics and lab testing, advised that antibiotics would help but would need further labs to evaluate. HCP does not want further blood tests if it will not change her management of pain, no CXR or ECG. Her goal is to keep the patient from suffering and not do anything to prolong her dying. Spoke to MAIKEL Segura, who understands situation. Unsure if the patient needs admission vs. palliative care consult. Spoke to Dr. Barone regarding this matter. MAIKEL Segura at bedside now. 12/09/18 21:00 Paperwork confirming Inés Contreras as healthcare proxy on file. Unable to find patients's MOLST form. With healthcare proxy, went though the MOLST form again and explained each component in detail and in non-medical terms. HCP understands MOLST form and confirms that patient's wishes are as follows: DNR DNI Comfort care measures only No feeding tube Trial of IV fluids No dialysis No blood transfusions HCP wishes to allow patient to a natural without suffering. 12/09/18 21:21 Discussed Admission with mohinder Gallardo for Med Surg under Dr. Toro. Patient on the floor now, room 612. Discharge - Discharge Information Problems reviewed: Yes Clinical Impression/Diagnosis: Admission for palliative care, Lactic acid acidosis Metastatic lung cancer (metastasis from lung to other site) Qualifiers: Laterality: unspecified laterality Qualified Code(s): C34.90 - Malignant neoplasm of unspecified part of unspecified bronchus or lung Sepsis Qualifiers: Sepsis type: sepsis due to unspecified organism Sepsis acute organ dysfunction status: with acute organ dysfunction Severe sepsis acute organ dysfunction type : acute renal failure Acute renal failure type: unspecified Severe sepsis shock status: unspecified Qualified Code(s): A41.9 - Sepsis, unspecified organism; R65.20 - Severe sepsis without septic shock; N17.9 - Acute kidney failure, unspecified Condition: Stable - Follow up/Referral - Patient Discharge Instructions - Post Discharge Activity
[2018-12-09 19:17] LABS: ARTERIAL BLD GAS O2 SATURATION 97.5 % (95-98); ARTERIAL BLOOD GAS BASE EXCESS -2.5 meq/l (-2-2); ARTERIAL BLOOD GAS PCO2 40.3 mmHg (35-45); ARTERIAL BLOOD GAS pH 7.36 (7.35-7.45)
[2018-12-09 19:18] LABS: ALLENS TEST POSITIVE; ARTERIAL BLOOD GAS PO2 188 mmHg (80-100)
[2018-12-09 19:20] LABS: CARBOXYHEMOGLOBIN < 0.5 % (0-2)
--- NOTE | 2018-12-09 20:36 | HP ---
CHIEF COMPLAINT: generalized pain PCP:[place] Onc: Nik HISTORY OF PRESENT ILLNESS: 73 year old female with PMH of stage 4 lung CA s/p partial lobectomy (PD-1 checkpoint inhibitor therapy), CHF, HTN/HLD, RA, DM, COPD who arrived to the ED from Located [facility], with c/o generalized pain, pt with difficulty, breathing, placed on BIPAP, pt lethargic, HCP, Inés Contreras, at bedside, discussed, pt wishes, pt did not want any aggressive measures, no labs, EKG, imaging, treatment to prolong life. pt with active stage 4 lung ca, was receiving immunotherapy, last tx in Oct. pt discharged from [facility] on 12/07 to [facility], treated for COPD exacerbation. MOLST faxed from [facility], DNR/DNI signed by HCP- pt admitted for comfort care, pain management ER course was notable for: (1)pCO2 43 (2)Creat 4.3, K+ 6.1 (3)Lactic 6.1 Recent Travel: PAST MEDICAL HISTORY: CHF,diastolic,chronic HTN Chronic Resp failure, on home O2 Stage 4 Lung CA RA PAST SURGICAL HISTORY: s/p R upper lobectomy Social History: Smoking:denies Alcohol:denies Drugs: denies Allergies aspirin Adverse Reaction (Mild, Verified 11/23/18 02:51) upset stomach, gastritis HOME MEDICATIONS: Home Medications Medication Instructions Recorded Losartan Potassium [Cozaar -] 50 mg PO DAILY 06/15/18 Pantoprazole Sodium [Protonix -] 40 mg PO DAILY 06/15/18 Zolpidem Tartrate [Ambien] 10 mg PO DAILY 06/15/18 Atovaquone [Mepron Oral Solution -] 1,500 mg PO DAILY@0800 #1 bottle 06/19/18 Amlodipine Besylate [Norvasc -] 5 mg PO DAILY tablet 06/25/18 Sulfasalazine [Azulfidine En-Tabs 1,000 mg PO BID #120 tablet. 06/25/18 -] Buspirone HCl [Buspar -] 5 mg PO BID tablet 10/10/18 Leflunomide [Arava -] 20 mg PO DAILY #60 tablet 11/02/18 Nystatin Oral Suspension - 500,000 units PO Q6HPO cup 11/02/18 [Nystatin Oral Susp 987752 Units/5 ML -] Heparin - 5,000 unit SQ Q12H 11/23/18 Silver Sulfadiazine 1% Top Cr 1 applic TP DAILY 11/23/18 [Silvadene -] Acetaminophen [Tylenol .Regular 650 mg PO Q4H PRN tablet 12/07/18 Strength -] Albuterol 2.5/Ipratropium 0.5 1 amp NEB RQID amp 12/07/18 [Duoneb -] Escitalopram Oxalate [Lexapro -] 10 mg PO DAILY tablet 12/07/18 Insulin Sliding Scale [Novolog 1 vial SQ ACHS units 12/07/18 Vial Sliding Scale -] LORazepam [Ativan] 0.5 mg PO Q8H PRN tablet MDD 3 12/07/18 traMADol HCL [Ultram -] 50 mg PO Q8H PRN tablet MDD 3 12/07/18 REVIEW OF SYSTEMS unable to assess due to pt condition PHYSICAL EXAMINATION Vital Signs - 24 hr 12/09/18 12/09/18 12/09/18 15:54 16:00 16:05 Temperature 100 F H 100 F H 100.0 F H Pulse Rate 133 H 132 H Pulse Rate [ 132 H Left Apical] Respiratory 22 H 22 H 22 H Rate Blood Pressure 142/105 H 142/105 H Blood Pressure 142/105 H [Left Arm] O2 Sat by Pulse 90 L 82 L 82 L Oximetry (%) 12/09/18 12/09/18 12/09/18 16:10 16:25 16:35 Temperature Pulse Rate Pulse Rate [ 118 H 123 H Left Apical] Respiratory 28 H 30 H Rate Blood Pressure Blood Pressure [Left Arm] O2 Sat by Pulse 91 L 100 100 Oximetry (%) 12/09/18 12/09/18 12/09/18 16:57 17:13 17:30 Temperature Pulse Rate Pulse Rate [ 118 H 120 H 115 H Left Apical] Respiratory 28 H 34 H 30 H Rate Blood Pressure Blood Pressure 69/47 L 96/35 L 94/82 [Left Arm] O2 Sat by Pulse 100 100 100 Oximetry (%) 12/09/18 12/09/18 12/09/18 17:45 17:48 18:00 Temperature Pulse Rate 110 H Pulse Rate [ 110 H 107 H Left Apical] Respiratory 26 H 32 H Rate Blood Pressure Blood Pressure 59/45 L 79/46 L [Left Arm] O2 Sat by Pulse 100 100 100 Oximetry (%) 12/09/18 12/09/18 12/09/18 18:15 18:30 18:45 Temperature Pulse Rate Pulse Rate [ 108 H 112 H 108 H Left Apical] Respiratory 28 H 30 H 28 H Rate Blood Pressure Blood Pressure 106/76 129/114 H 145/125 H [Left Arm] O2 Sat by Pulse 100 30 L 100 Oximetry (%) 12/09/18 19:09 Temperature Pulse Rate Pulse Rate [ Left Apical] Respiratory Rate Blood Pressure Blood Pressure [Left Arm] O2 Sat by Pulse 100 Oximetry (%) GENERAL: lethargic, arousable to tactile stimuli HEAD: Normal with no signs of trauma. EYES: Pupils equal, round and reactive to light, extraocular movements intact, sclera anicteric, conjunctiva clear. No lid lag. EARS, NOSE, THROAT: Ears normal, nares patent, oropharynx clear without exudates. Moist mucous membranes. NECK: Normal range of motion, supple without lymphadenopathy, JVD, or masses. LUNGS: rhonci, breath sounds HEART: Regular rate and rhythm, normal S1 and S2 without murmur, rub or gallop. ABDOMEN: Soft, nontender, not distended, normoactive bowel sounds, no guarding, no rebound, no masses. No hepatomegaly or splenomegaly. MUSCULOSKELETAL: Normal range of motion at all joints. No bony deformities or tenderness. No CVA tenderness. UPPER EXTREMITIES: 2+ pulses, warm, well-perfused. No cyanosis. No clubbing. No peripheral edema. LOWER EXTREMITIES: 2+ pulses, warm, well-perfused. No calf tenderness. No peripheral edema. NEUROLOGICAL: Cranial nerves II-XII intact. Normal speech. Normal gait. PSYCHIATRIC: Cooperative. SKIN: Warm, dry, normal turgor, no rashes or lesions noted, normal capillary refill. Laboratory Results - last 24 hr 12/09/18 12/09/18 12/09/18 16:25 16:29 16:29 WBC 13.5 H RBC 4.19 Hgb 12.5 Hct 40.6 D MCV 96.9 H MCH 29.8 MCHC 30.8 L RDW 18.6 H Plt Count 290 D MPV 8.5 Absolute Neuts (auto) 11.7 H Total Counted 100 Neutrophils % 86.6 H Neutrophils % (Manual) 76.5 Band Neutrophils % 2.1 Lymphocytes % 7.8 L D Lymphocytes % (Manual) 10.2 D Monocytes % 5.5 Monocytes % (Manual) 5 D Eosinophils % 0.0 D Eosinophils % (Manual) 1.0 D Basophils % 0.1 Basophils % (Manual) 1.0 D Myelocytes % (Man) 3 H D Promyelocytes % (Man) 0 Blast Cells % (Manual) 0 Nucleated RBC % 2 H Metamyelocytes 1 D Hypochromia 0 Platelet Estimate Normal Polychromasia 1+ Poikilocytosis 1+ Anisocytosis 2+ Microcytosis 1+ Macrocytosis 1+ Tear Drop Cells 1+ PT with INR INR PTT (Actin FS) 30.5 Anticoagulation Therapy Puncture Site ABG pH ABG pCO2 at Pt Temp ABG pO2 at Pt Temp ABG HCO3 ABG O2 Sat (Measured) ABG O2 Content ABG Base Excess Ermias Test VBG pH POC VBG pCO2 POC VBG pO2 VBG HCO3 VBG O2 Sat (Marie) VBG Base Excess Carboxyhemoglobin Methemoglobin O2 Delivery Device Oxygen Flow Rate Vent Mode Vent Rate Mechanical Rate Pressure Support Vent Sodium Potassium Chloride Carbon Dioxide Anion Gap BUN Creatinine Est GFR (CKD-EPI)AfAm Est GFR (CKD-EPI)NonAf Random Glucose Lactic Acid Calcium Total Bilirubin AST ALT Alkaline Phosphatase Troponin I 0.33 H Total Protein Albumin Urine Color Urine Appearance Urine pH Ur Specific [employer] Urine Protein Urine Glucose (UA) Urine Ketones Urine Blood Urine Nitrite Urine Bilirubin Urine Urobilinogen Ur Leukocyte Esterase Urine WBC (Auto) Urine RBC (Auto) Urine Casts (Auto) U Pathogenic Cast Auto U Epithel Cells (Auto) Urine Crystals (Auto) Urine Bacteria (Auto) 12/09/18 12/09/18 12/09/18 16:29 16:29 16:29 WBC RBC Hgb Hct MCV MCH MCHC RDW Plt Count MPV Absolute Neuts (auto) Total Counted Neutrophils % Neutrophils % (Manual) Band Neutrophils % Lymphocytes % Lymphocytes % (Manual) Monocytes % Monocytes % (Manual) Eosinophils % Eosinophils % (Manual) Basophils % Basophils % (Manual) Myelocytes % (Man) Promyelocytes % (Man) Blast Cells % (Manual) Nucleated RBC % Metamyelocytes Hypochromia Platelet Estimate Polychromasia Poikilocytosis Anisocytosis Microcytosis Macrocytosis Tear Drop Cells PT with INR 18.10 H INR 1.53 H PTT (Actin FS) Anticoagulation Therapy Puncture Site ABG pH ABG pCO2 at Pt Temp ABG pO2 at Pt Temp ABG HCO3 ABG O2 Sat (Measured) ABG O2 Content ABG Base Excess Ermias Test VBG pH POC VBG pCO2 POC VBG pO2 VBG HCO3 VBG O2 Sat (Marie) VBG Base Excess Carboxyhemoglobin Methemoglobin O2 Delivery Device Oxygen Flow Rate Vent Mode Vent Rate Mechanical Rate Pressure Support Vent Sodium 135 L Potassium 6.1 H* Chloride 96 L Carbon Dioxide 20 L Anion Gap 19 H BUN 127.9 H* Creatinine 4.3 H Est GFR (CKD-EPI)AfAm 11.17 Est GFR (CKD-EPI)NonAf 9.64 Random Glucose 119 H Lactic Acid 6.1 H* Calcium 9.9 Total Bilirubin 2.1 H AST 70 H ALT 32 Alkaline Phosphatase 171 H Troponin I Total Protein 6.6 Albumin 3.0 L Urine Color Urine Appearance Urine pH Ur Specific [employer] Urine Protein Urine Glucose (UA) Urine Ketones Urine Blood Urine Nitrite Urine Bilirubin Urine Urobilinogen Ur Leukocyte Esterase Urine WBC (Auto) Urine RBC (Auto) Urine Casts (Auto) U Pathogenic Cast Auto U Epithel Cells (Auto) Urine Crystals (Auto) Urine Bacteria (Auto) 12/09/18 12/09/18 12/09/18 16:29 17:11 18:46 WBC RBC Hgb Hct MCV MCH MCHC RDW Plt Count MPV Absolute Neuts (auto) Total Counted Neutrophils % Neutrophils % (Manual) Band Neutrophils % Lymphocytes % Lymphocytes % (Manual) Monocytes % Monocytes % (Manual) Eosinophils % Eosinophils % (Manual) Basophils % Basophils % (Manual) Myelocytes % (Man) Promyelocytes % (Man) Blast Cells % (Manual) Nucleated RBC % Metamyelocytes Hypochromia Platelet Estimate Polychromasia Poikilocytosis Anisocytosis Microcytosis Macrocytosis Tear Drop Cells PT with INR INR PTT (Actin FS) Anticoagulation Therapy No Result Required. Puncture Site Left radial ABG pH 7.36 ABG pCO2 at Pt Temp 40.3 ABG pO2 at Pt Temp 188 H ABG HCO3 22.2 ABG O2 Sat (Measured) 97.5 ABG O2 Content No Result Required. ABG Base Excess -2.5 L Ermias Test Positive VBG pH 7.33 POC VBG pCO2 38.3 POC VBG pO2 < 49 H VBG HCO3 19.7 L VBG O2 Sat (Marie) 56.5 L VBG Base Excess -5.2 L Carboxyhemoglobin Methemoglobin O2 Delivery Device No Result Required. Oxygen Flow Rate Yes Vent Mode No Result Required. Vent Rate No Result Required. Mechanical Rate No Result Required. Pressure Support Vent No Result Required. Sodium Potassium Chloride Carbon Dioxide Anion Gap BUN Creatinine Est GFR (CKD-EPI)AfAm Est GFR (CKD-EPI)NonAf Random Glucose Lactic Acid Calcium Total Bilirubin AST ALT Alkaline Phosphatase Troponin I Total Protein Albumin Urine Color Dk yellow Urine Appearance Turbid Urine pH 5.0 Ur Specific [employer] 1.023 Urine Protein 1+ H Urine Glucose (UA) Negative Urine Ketones Trace H Urine Blood 2+ H Urine Nitrite Positive H Urine Bilirubin 3+ H Urine Urobilinogen 1.0 Ur Leukocyte Esterase Trace Urine WBC (Auto) 3 Urine RBC (Auto) 1 Urine Casts (Auto) 138 U Pathogenic Cast Auto None seen U Epithel Cells (Auto) 23.9 Urine Crystals (Auto) Moderate Urine Bacteria (Auto) 37.5 12/09/18 18:46 WBC RBC Hgb Hct MCV MCH MCHC RDW Plt Count MPV Absolute Neuts (auto) Total Counted Neutrophils % Neutrophils % (Manual) Band Neutrophils % Lymphocytes % Lymphocytes % (Manual) Monocytes % Monocytes % (Manual) Eosinophils % Eosinophils % (Manual) Basophils % Basophils % (Manual) Myelocytes % (Man) Promyelocytes % (Man) Blast Cells % (Manual) Nucleated RBC % Metamyelocytes Hypochromia Platelet Estimate Polychromasia Poikilocytosis Anisocytosis Microcytosis Macrocytosis Tear Drop Cells PT with INR INR PTT (Actin FS) Anticoagulation Therapy Puncture Site ABG pH ABG pCO2 at Pt Temp ABG pO2 at Pt Temp ABG HCO3 ABG O2 Sat (Measured) ABG O2 Content ABG Base Excess Ermias Test VBG pH POC VBG pCO2 POC VBG pO2 VBG HCO3 VBG O2 Sat (Marie) VBG Base Excess Carboxyhemoglobin < 0.5 Methemoglobin 2.4 H O2 Delivery Device Oxygen Flow Rate Vent Mode Vent Rate Mechanical Rate Pressure Support Vent Sodium Potassium Chloride Carbon Dioxide Anion Gap BUN Creatinine Est GFR (CKD-EPI)AfAm Est GFR (CKD-EPI)NonAf Random Glucose Lactic Acid Calcium Total Bilirubin AST ALT Alkaline Phosphatase Troponin I Total Protein Albumin Urine Color Urine Appearance Urine pH Ur Specific [employer] Urine Protein Urine Glucose (UA) Urine Ketones Urine Blood Urine Nitrite Urine Bilirubin Urine Urobilinogen Ur Leukocyte Esterase Urine WBC (Auto) Urine RBC (Auto) Urine Casts (Auto) U Pathogenic Cast Auto U Epithel Cells (Auto) Urine Crystals (Auto) Urine Bacteria (Auto) ASSESSMENT/PLAN: 73 year old female with PMH of stage 4 lung CA s/p partial lobectomy (PD-1 checkpoint inhibitor therapy), CHF, HTN/HLD, RA, DM, COPD admitted for comfort care, pain mgt Admitting Diagnosis Intractable pain SOB Sepsis? Chronic Conditions CHF, diastolic, chronic Anxiety HTN RA DM COPD Stage 4 lung ca A/P: #Intractable pain 2/2 disease progression -comfort care -Palliative Care consult -Pain mgt consult -morphine 2mg PRN for pain -no lab draws, imaging, IV abt #Acute on chronic resp failure, on home O2 -currently on BIPAP, cont -resp management -comfort care #Hyperkalemia -K+6.1 -given insulin Ca HCO3 in ED -no lab draws #THIAGO -creat 4.3, BUN 127.9 -no IV fluids all PO meds on hold 2/2 to lethargy and on BIPAP Palliative care consult in AM for Hospice DNR/DNI Visit type - Emergency Visit Emergency Visit: Yes ED Registration Date: 12/09/18 Care time: The patient presented to the Emergency Department on the above date and was hospitalized for further evaluation of their emergent condition. - New Patient This patient is new to me today: Yes Date on this admission: 12/09/18 - Critical Care Critical Care patient: No
[2018-12-10] MEDS: MORPHINE SULFATE 2 MG/ML VIAL IVPUSH PRN ×2 (03:13→10:04)
[2018-12-10 03:52] VITALS: BMI 25.4
--- NOTE | 2018-12-10 10:52 | CON.PULM ---
Consult Consult Specialty:: PULM/CCM Referred by:: HARIS Reason for Consultation:: SOB - History of Present Illness Chief Complaint: AMS / COPD History of Present Illness: 73 F, well known to me from multiple previous admissions. Stage 4 lung CA s/p partial lobectomy (PD-1 checkpoint inhibitor therapy), CHF, HTN/HLD, RA, DM, and COPD. Recent discharge to SNF on Monday. Sent to the ER due to generalized pain, , and lethargy. She was placed on NIPPV support for respiratory distress. Apparently the HCP was in the ER and and confirmed that the patient did not want any aggressive measures, no labs, EKG, imaging, treatment to prolong life. She is seen in the medical floor. Lethargic but arousable on NIPPV support. She is a DNR/DNI. - History Source History Provided By: Medical Record Limitations to Obtaining History: Clinical Condition - Past Medical History Cardio/Vascular: Yes: CHF, HTN, Hyperlipdemia, Pulmonary Hypertension (moderate) Pulmonary: Yes: Bronchitis, Cancer, COPD, O2 Dependent, Pneumonia, Other (Lung cancer --stage IIB . squamous cell). No: Previously Intubated, Pulmonary Embolus, Pulmonary Fibrosis, Sleep Apnea ...: No Rheumatology: Yes: Rheumatoid Arthritis Endocrine: Yes: Diabetes Mellitus - Alcohol/Substance Use Hx Alcohol Use: No History of Substance Use: reports: None - Smoking History Smoking history: Former smoker Have you smoked in the past 12 months: No Aproximately how many cigarettes per day: 10 If you are a former smoker, when did you quit?: 12/16/14 - Social History ADL: Independent History of Recent Travel: No Home Medications - Allergies Allergies/Adverse Reactions: Allergies Allergy/AdvReac Type Severity Reaction Status Date / Time aspirin AdvReac Mild Verified 11/23/18 02:51 - Home Medications Home Medications: Ambulatory Orders Losartan Potassium [Cozaar -] 50 mg PO DAILY 06/15/18 Pantoprazole Sodium [Protonix -] 40 mg PO DAILY 06/15/18 Zolpidem Tartrate [Ambien] 10 mg PO DAILY 06/15/18 Atovaquone [Mepron Oral Solution -] 1,500 mg PO DAILY@0800 #1 bottle 06/19/18 Amlodipine Besylate [Norvasc -] 5 mg PO DAILY tablet 06/25/18 Sulfasalazine [Azulfidine En-Tabs -] 1,000 mg PO BID #120 tablet. 06/25/18 Buspirone HCl [Buspar -] 5 mg PO BID tablet 10/10/18 Leflunomide [Arava -] 20 mg PO DAILY #60 tablet 11/02/18 Nystatin Oral Suspension - [Nystatin Oral Susp 236511 Units/5 ML -] 500,000 units PO Q6HPO cup 11/02/18 Heparin - 5,000 unit SQ Q12H 11/23/18 Silver Sulfadiazine 1% Top Cr [Silvadene -] 1 applic TP DAILY 11/23/18 Acetaminophen [Tylenol .Regular Strength -] 650 mg PO Q4H PRN tablet 12/07/18 Albuterol 2.5/Ipratropium 0.5 [Duoneb -] 1 amp NEB RQID amp 12/07/18 Escitalopram Oxalate [Lexapro -] 10 mg PO DAILY tablet 12/07/18 Insulin Sliding Scale [Novolog Vial Sliding Scale -] 1 vial SQ ACHS units 12/07 LORazepam [Ativan] 0.5 mg PO Q8H PRN tablet MDD 3 12/07/18 traMADol HCL [Ultram -] 50 mg PO Q8H PRN tablet MDD 3 12/07/18 Guaifenesin 10 ml PO QID PRN 12/10/18 Iprat-Albut 0.5-3(2.5) mg/3 ml 3 ml IH QID 12/10/18 Metoprolol Succinate 50 mg PO ONCE 12/10/18 Prednisone 30 mg PO BID 12/10/18 Review of Systems Unable to obtain ROS, reason: unable to provide Physical Exam Vital Sings: Vital Signs Temperature 97.6 F 12/09/18 21:00 Pulse Rate 111 H 12/09/18 21:00 Respiratory Rate 22 H 12/09/18 21:00 Blood Pressure 78/45 L 12/09/18 21:00 O2 Sat by Pulse Oximetry (%) 97 12/10/18 08:00 Constitutional: Yes: Mild Distress Eyes: Yes: Conjunctiva Clear, EOM Intact HENT: Yes: Atraumatic, Normocephalic Neck: Yes: Supple, Trachea Midline Cardiovascular: Yes: Tachycardia Respiratory: Yes: Accessory Muscle Use, On BiPap, Rhonchi, SOB, Tachypnea. No: Stridor, Wheezes ...Inspection: Yes: WNL ...Clubbing: No Gastrointestinal: Yes: Normal Bowel Sounds, Soft, Abdomen, Obese Renal/: Yes: WNL Musculoskeletal: Yes: WNL Extremities: Yes: WNL Edema: No Peripheral Pulses WNL: Yes Integumentary: Yes: WNL Neurological: Yes: Confusion, Lethargy Labs: CBC, BMP 12/09/18 16:29 12/09/18 16:29 ABG Results ABG pH 7.36 (7.35-7.45) 12/09/18 18:46 ABG pCO2 at Pt Temp 40.3 mmHg (35-45) 12/09/18 18:46 ABG pO2 at Pt Temp 188 mmHg (80-100) H 12/09/18 18:46 ABG HCO3 22.2 mmol/L (22-27) 12/09/18 18:46 ABG O2 Sat (Measured) 97.5 % (95-98) 12/09/18 18:46 ABG O2 Content No Result Required. 12/09/18 18:46 ABG Base Excess -2.5 meq/l (-2-2) L 12/09/18 18:46 Imaging - Results Chest X-ray: Report Reviewed, Image Reviewed Problem List - Problems (1) Admission for palliative care Code(s): Z51.5 - ENCOUNTER FOR PALLIATIVE CARE (2) Metastatic lung cancer (metastasis from lung to other site) Code(s): C34.90 - MALIGNANT NEOPLASM OF UNSP PART OF UNSP BRONCHUS OR LUNG Qualifiers: Laterality: unspecified laterality Qualified Code(s): C34.90 - Malignant neoplasm of unspecified part of unspecified bronchus or lung (3) Acute on chronic respiratory failure with hypoxemia Code(s): J96.21 - ACUTE AND CHRONIC RESPIRATORY FAILURE WITH HYPOXIA (4) Anemia Code(s): D64.9 - ANEMIA, UNSPECIFIED (5) COPD (chronic obstructive pulmonary disease) Code(s): J44.9 - CHRONIC OBSTRUCTIVE PULMONARY DISEASE, UNSPECIFIED (6) Diabetes Code(s): E11.9 - TYPE 2 DIABETES MELLITUS WITHOUT COMPLICATIONS (7) GERD (gastroesophageal reflux disease) Code(s): K21.9 - GASTRO-ESOPHAGEAL REFLUX DISEASE WITHOUT ESOPHAGITIS (8) HLD (hyperlipidemia) Code(s): E78.5 - HYPERLIPIDEMIA, UNSPECIFIED (9) Rheumatoid arthritis Code(s): M06.9 - RHEUMATOID ARTHRITIS, UNSPECIFIED (10) SCC (squamous cell carcinoma of lung) Code(s): C34.90 - MALIGNANT NEOPLASM OF UNSP PART OF UNSP BRONCHUS OR LUNG (11) Stage 4 lung cancer Code(s): C34.90 - MALIGNANT NEOPLASM OF UNSP PART OF UNSP BRONCHUS OR LUNG Qualifiers: Laterality: unspecified laterality Qualified Code(s): C34.90 - Malignant neoplasm of unspecified part of unspecified bronchus or lung (12) Tachycardia Code(s): R00.0 - TACHYCARDIA, UNSPECIFIED (13) HTN (hypertension) Code(s): I10 - ESSENTIAL (PRIMARY) HYPERTENSION Qualifiers: Hypertension type: unspecified Qualified Code(s): I10 - Essential (primary ) hypertension Assessment/Plan NIPPV support for WOB Can attempt to place on NRBM Aspiration precautions BD TX PRN Would monitor off ABX Monitor off systemic steroids for now Palliative Care evaluation Goal at this point should be comfort & supportive measures Will follow Thank you. Dr Sanabria
[2018-12-10] MEDS ORDERED: ALBUTEROL SO4 2.5/IPRATROPIUM 0.5 INH SOL 3 ML VIAL.NEB. NEB PRN (10:54)
--- NOTE | 2018-12-10 11:02 | PN ---
Progress Note, Physician Chief Complaint: COPD Exacerbation Lung Cancer Stage 4 Lethargy History of Present Illness: Previous notes and events reviewed lethargic but opens eyes to name when called tachypneic on Bipap - Current Medication List Current Medications: Active Medications Albuterol/Ipratropium (Duoneb -) 1 amp NEB Q4H PRN PRN Reason: SHORTNESS OF BREATH Morphine Sulfate (Morphine Sulfate) 2 mg IVPUSH Q6H PRN PRN Reason: PAIN LEVEL 6-10 Last Admin: 12/10/18 10:04 Dose: 2 mg - Objective Vital Signs: Vital Signs Temperature 97.6 F 12/09/18 21:00 Pulse Rate 111 H 12/09/18 21:00 Respiratory Rate 22 H 12/09/18 21:00 Blood Pressure 78/45 L 12/09/18 21:00 O2 Sat by Pulse Oximetry (%) 97 12/10/18 08:00 Constitutional: Yes: Mild Distress Eyes: Yes: Conjunctiva Clear HENT: Yes: Atraumatic Cardiovascular: Yes: Tachycardia Respiratory: Yes: Accessory Muscle Use, On BiPap, Rhonchi, SOB, Tachypnea Gastrointestinal: Yes: Normal Bowel Sounds, Soft Musculoskeletal: Yes: Muscle Weakness Extremities: Yes: WNL Edema: No Neurological: Yes: Lethargy Labs: CBC, BMP 12/09/18 16:29 12/09/18 16:29 INR, PTT INR 1.53 (0.83-1.09) H 12/09/18 16:29 Problem List - Problems (1) Admission for palliative care Assessment/Plan: -Palliative consult for goals of care -comfort care -as per H&P patient HCP discussed patients wishes and did not want any aggressive measures, no labs, EKG, imaging or treatment to prolong life -DNR/DNI Code(s): Z51.5 - ENCOUNTER FOR PALLIATIVE CARE (2) Metastatic lung cancer (metastasis from lung to other site) Assessment/Plan: -Oncology consult Code(s): C34.90 - MALIGNANT NEOPLASM OF UNSP PART OF UNSP BRONCHUS OR LUNG Qualifiers: Laterality: unspecified laterality Qualified Code(s): C34.90 - Malignant neoplasm of unspecified part of unspecified bronchus or lung (3) THIAGO (acute kidney injury) Assessment/Plan: -Renal consult -BUN/Cr 127.9/4.3 Code(s): N17.9 - ACUTE KIDNEY FAILURE, UNSPECIFIED (4) Acute on chronic respiratory failure with hypoxemia Assessment/Plan: -Pulm on board -Bipap -keep SpO2 >90% -bronchodilators Code(s): J96.21 - ACUTE AND CHRONIC RESPIRATORY FAILURE WITH HYPOXIA (5) COPD (chronic obstructive pulmonary disease) Assessment/Plan: -Pulm on board -Bipap -keep SpO2 >90% -bronchodilators Code(s): J44.9 - CHRONIC OBSTRUCTIVE PULMONARY DISEASE, UNSPECIFIED (6) HLD (hyperlipidemia) Assessment/Plan: -oral meds held due to lethargy Code(s): E78.5 - HYPERLIPIDEMIA, UNSPECIFIED (7) HTN (hypertension) Assessment/Plan: -BP meds held due to lethargy Code(s): I10 - ESSENTIAL (PRIMARY) HYPERTENSION Qualifiers: Hypertension type: unspecified Qualified Code(s): I10 - Essential (primary ) hypertension Assessment/Plan see problem list palliative consult DNR/DNI
[2018-12-10 11:36] VITALS: BP 115/44; PULSE 50; TEMP 98.9
[2018-12-10] MEDS ORDERED: MORPHINE SULFATE/0.9% NACL/PF 100 MG/100 ML BAG IVPB SCH (12:30)
--- NOTE | 2018-12-10 14:02 | PN ---
Progress Note (short form) - Note Progress Note: Pt is comfort measures only at this time. No further lab draws or aggressive measures including IVF as per family wishes. Please call if there is a change in clinical status. Shelton Chery DO
--- NOTE | 2018-12-10 14:24 | PN ---
Progress Note (short form) - Note Progress Note: called that patient passwed away came up and went in the room no pulse, no respirations, no reflexes pronounuced at 2;12pm
--- NOTE | 2018-12-10 14:26 | DS ---
Physical Examination Vital Signs: Vital Signs Temperature 98.9 F 12/10/18 10:00 Pulse Rate 50 L 12/10/18 10:00 Respiratory Rate 22 H 12/10/18 10:00 Blood Pressure 115/44 L 12/10/18 10:00 O2 Sat by Pulse Oximetry (%) 94 L 12/10/18 12:01 Labs: CBC, BMP 12/09/18 16:29 12/09/18 16:29 Discharge Summary Problems reviewed: Yes Reason For Visit: ADMISSION FOR PALLIATIVE CARE, MALIGNANT NEOPLASM Current Active Problems Admission for palliative care (Acute) Lactic acid acidosis (Acute) Metastatic lung cancer (metastasis from lung to other site) (Acute) Sepsis (Acute) Hospital Course: PCP:[place] [facility]: Nik HISTORY OF PRESENT ILLNESS: 73 year old female with PMH of stage 4 lung CA s/p partial lobectomy (PD-1 checkpoint inhibitor therapy), CHF, HTN/HLD, RA, DM, COPD who arrived to the ED from [facility], with c/o generalized pain, pt with difficulty, breathing, placed on BIPAP, pt lethargic, HCP, Inés Contreras, at bedside, discussed, pt wishes, pt did not want any aggressive measures, no labs, EKG, imaging, treatment to prolong life. pt with active stage 4 lung ca, was receiving immunotherapy, last tx in Oct. pt discharged from [facility] on 12/07 to [facility], treated for COPD exacerbation. [facility]ST faxed from [facility], DNR/DNI signed by HCP- pt admitted for comfort care, pain management ER course was notable for: (1)pCO2 43 (2)Creat 4.3, K+ 6.1 (3)Lactic 6.1 patient got dextrose insulin and sodium bicarbonate for hyperkalemia on bipap and iv abx zenaida today 2;12PM on 12-10-18 Condition: - Instructions Referrals: Lior Toro MD [Primary Care Provider] - - Home Medications Comprehensive Discharge Medication List: Ambulatory Orders Losartan Potassium [Cozaar -] 50 mg PO DAILY 06/15/18 Pantoprazole Sodium [Protonix -] 40 mg PO DAILY 06/15/18 Zolpidem Tartrate [Ambien] 10 mg PO DAILY 06/15/18 Atovaquone [Mepron Oral Solution -] 1,500 mg PO DAILY@0800 #1 bottle 06/19/18 Amlodipine Besylate [Norvasc -] 5 mg PO DAILY tablet 06/25/18 Sulfasalazine [Azulfidine En-Tabs -] 1,000 mg PO BID #120 tablet. 06/25/18 Buspirone HCl [Buspar -] 5 mg PO BID tablet 10/10/18 Leflunomide [Arava -] 20 mg PO DAILY #60 tablet 11/02/18 Nystatin Oral Suspension - [Nystatin Oral Susp 599343 Units/5 ML -] 500,000 units PO Q6HPO cup 11/02/18 Heparin - 5,000 unit SQ Q12H 11/23/18 Silver Sulfadiazine 1% Top Cr [Silvadene -] 1 applic TP DAILY 11/23/18 Acetaminophen [Tylenol .Regular Strength -] 650 mg PO Q4H PRN tablet 12/07/18 Albuterol 2.5/Ipratropium 0.5 [Duoneb -] 1 amp NEB RQID amp 12/07/18 Escitalopram Oxalate [Lexapro -] 10 mg PO DAILY tablet 12/07/18 Insulin Sliding Scale [Novolog Vial Sliding Scale -] 1 vial SQ ACHS units 12/07 LORazepam [Ativan] 0.5 mg PO Q8H PRN tablet MDD 3 12/07/18 traMADol HCL [Ultram -] 50 mg PO Q8H PRN tablet MDD 3 12/07/18 Guaifenesin 10 ml PO QID PRN 12/10/18 Iprat-Albut 0.5-3(2.5) mg/3 ml 3 ml IH QID 12/10/18 Metoprolol Succinate 50 mg PO ONCE 12/10/18 Prednisone 30 mg PO BID 12/10/18
== END 2018-12-10 16:00 | disposition expired | DRG 871 ==
LOC: JER 15:47 → JERBED 19:53 → J6S 21:20
PROVIDERS: ADMIT Family Medicine; ATTEND Family Medicine
DX: A41.89 Other specified sepsis (principal); J18.9 Pneumonia, unspecified organism; J96.21 Acute and chronic respiratory failure with hypoxia; C34.11 Malignant neoplasm of upper lobe, right bronchus or lung; E87.2 Acidosis; N17.9 Acute kidney failure, unspecified; I50.32 Chronic diastolic (congestive) heart failure; J44.1 Chronic obstructive pulmonary disease with (acute) exacerbation; E78.5 Hyperlipidemia, unspecified; J44.9 Chronic obstructive pulmonary disease, unspecified; E11.9 Type 2 diabetes mellitus without complications; M06.80 Other specified rheumatoid arthritis, unspecified site; R44.1 Visual hallucinations; F41.9 Anxiety disorder, unspecified; I46.9 Cardiac arrest, cause unspecified; E87.5 Hyperkalemia; I11.0 Hypertensive heart disease with heart failure; Z66 Do not resuscitate; I27.20 Pulmonary hypertension, unspecified; R00.0 Tachycardia, unspecified; E66.9 Obesity, unspecified; Z68.25 Body mass index [BMI] 25.0-25.9, adult; Z99.81 Dependence on supplemental oxygen; Z51.5 Encounter for palliative care
CPT/HCPCS: 36415; 36600; 80053; 81003; 82375; 82803; 83050; 83605; 84484; 85025; 85610; 85730; 87040; 87086; 99285-25; J0131; J7030